=== PATIENT | male | born 1940 | race Hispanic/Latino ===

== ENCOUNTER → 2023-09-23 | Emergency (ER) | payer OTHER ==
[~2023-09-23] MED LIST: FAMOTIDINE 20 MG/2 ML VIAL IV ONE; HYDROMORPHONE HCL 0.5 MG/0.5 ML INJ ONE; LIDOCAINE VISCOUS 2% 10ML ORAL SOLN ONE; NA CHLORIDE 0.9% 1,000 ML ONE; NA CHLORIDE 0.9% 100 ML ONE; NA CHLORIDE 0.9% 500 ML ONE; NS KCL 20MEQ 1,000 ML IV ONE; ONDANSETRON 4 MG/2 ML VIAL ONE; PIPERACIL/TAZO 3.375 GM VIAL IV ONE; PROMETHAZINE INJ 25 MG/ML AMP ONE
[2023-09-23 15:24] LABS: Protime INR 1.1
[2023-09-23 15:36] LABS: Albumin 2.6 g/dL (3.4-5.0); Bilirubin Direct 0.3 mg/dL (0-0.2); Bilirubin Indirect, Calculated 0.4 mg/dL (0.2-0.8); Bilirubin Total 0.7 mg/dL (0.2-1.0); Potassium 3.2 mEq/L (3.5-5.1); Protein, Total 6.1 g/dL (6.4-8.2)
[2023-09-23 15:49] LABS: Absolute Lymphocytes (CBC) 3.1 K/uL (0.7-4.9); Hematocrit 40.2 % (39.6-49.0); Lymphocytes % 57.6 % (15.3-44.8); MPV 6.7 fL (7.6-11.3); Platelets 238 thou/uL (152-406); RBC Red Blood Cell Count 4.46 M/uL (4.33-5.43)
[2023-09-23 15:59] LABS: Specific Gravity 1.022 (1.005-1.030); Urine Bacteria <20 /HPF (<20); Urine Bilirubin NEGATIVE (Negative); Urine Blood Negative (Negative); Urine Clarity Extremely Turbid (Clear); Urine Color Yellow (Yellow); Urine Crystals Unidentified Few /HPF (None Seen); Urine Glucose NEGATIVE (Negative); Urine Mucus 4+ /HPF (None Seen); Urine Protein 3+ (Negative); Urine RBC <5 /HPF (None Seen); Urine Urobilinogen Normal (Normal); Urine WBC Clump Rare /HPF (None Seen)
--- NOTE | 2023-09-23 15:59 | RAD REPORT ---
EXAM DESCRIPTION: RAD - Chest Single View - 09/23/2023 3:44 pm CLINICAL HISTORY: ABDOMINAL DISTENTION Chest pain. COMPARISON: No comparisons FINDINGS: Portable technique limits examination quality. The lungs are mildly underinflated but grossly clear. The heart is normal in size. No displaced fract ures.Dual lead pacer device. IMPRESSION: No acute intrathoracic process suspected.
--- OUTSIDE RECORDS SUMMARY | 2023-09-23 16:00 | XMS REPORT | Continuity of Care Document ---
Author Name Unknown Address [address] [facility] [address] [place] [address] [facility] Address [address] [facility] [address] [place] [address] Care Team Providers Care Epic Ambulatory Analysts Name Role Phone Micaela Warner Primary Care Physician QUIRINO JI Attending Clinician Unavailable TANESHA WHITE Attending Clinician UnavailROSETTA Alves Attending Clinician UnavailRosetta Knott DO Attending Clinician [phone], [facility] Infusion Chair Attending Clinician Tanesha Marmolejo MD Attending Clinician [phone], [facility] Adult Infusion Nurse Attending Clinician Unavailable MARTÍNEZ DE LA GARZA Attending Clinician Unavailable MARTÍNEZ DE LA GARZA Attending Clinician Unavailable Elpidio Bates MD Attending Clinician [phone], [facility] Infusion Chair Attending Clinician Unavai lable Pob, [facility] Main Attending Clinician Unavailshad cullen 4, [facility] Infusion Chair Attending Clinician Ted abraham Doctor Unassigned, [place] Attending Clinician Ema babinsusyarelis 9, [facility] Infusion Chair Attending Clinician Radha Frausto Attending Clinician [phone] Osmin Jerez PA-C Attending Clinician [phone] OSMIN JEREZ Attending Clinician UnavailJANY Pan Attending Clinician Unavailable JANY CASH Attending Clinician Unavailable 2, [facility] Infusion Chair Attending Clinician CARLOS Pride Attending Clinician Unavailable 6, [facility] Infusion Chair Attending Clinician ADA Fernandez Attending Clinician Unavailab Ada Alvarez DO Attending Clinician [phone], [facility] Infusion Chair Attending Clinician SONNY Chakraborty Attending Clinician Unavailable Sonny Gramajo MD Attending Clinician [phone] Diana Sherwood RN Attending Clinician Unavailable DENG MARTINEZ Attending Clinician Unavailabl subhash Merritt MD, Emma Attending Clinician [phone] Deng Martinez MD Attending Clinician [phone] Mahad Mcfadden RN Attending Clinician Ted abraham 8, [facility] Infusion Chair Attending Clinician Ted abraham 2, [facility] Attending Clinician Unavailable Vance Pond MD Attending Clinician + [phone] Radha Quevedo MD Attending Clinician +[phone] RADHA QUEVEDO Attending Clinician UnavailARY Amador Attending Clinician Unavailable Ary Stokes DO Attending Clinician [phone] DONOVAN WARE Attending Clinician Unavailable DONOVAN WARE Attending Clinician Unavailable ERASMO MARCANO Attending Clinician Unavailable Ana Ying LCSW Attending Clinician [phone] Erasmo Marcano MD Attending Clinician [phone] FIDE HANSON Attending Clinician Unavailable Ysabel Fisher Attending Clinician [phone] YSABEL FISHER Attending Clinician Unavailshad Lima RN, Dima Dela Cruz Attending Clinician Unavail able TIM BUSBY Attending Clinician Unavailable Yolis DELA CRUZ, Tripp Dela Cruz Attending Clinician [phone] Tim Busby MD Attending Clinician [phone], [facility] Infusion Chair Attending Clinician Unava ilable JEREMY ARRIAGA Attending Clinician Unavailable Arriaga OD, Jeremy Attending Clinician [phone] OBI-ROSEMARY DEMETRIUS Attending Clinician Unavailab le OBI-ROSEMARYEma TERRELLZOMA Attending Clinician Unavailab VANCE Camacho Attending Clinician Unavailable RIOS PURCELL Attending Clinician Unavailable Fide Brink Attending Clinician [phone] Blayne DELA CRUZ, Rios Attending Clinician [phone] Lala MCARTHUR, Vinod Wall Attending Clinician Unav ailable Iggy RTEthel Attending Clinician Unavailab boston Ware RN, Alexandra Agarwal Attending Clinician Unavai Clif Bocanegra Attending Clinician Unavailable Christian Ward Attending Clinician [phone] Coleman Pearson MD Attending Clinician [phone] COLEMAN PEARSON Attending Clinician Unavailable Lila Martinez MD Attending Clinician [phone], [facility] Infusion Chair Attending Clinician Unamelly abraham [facility] Attending Clinician Unavailable Nurse, [facility] Gu Attending Clinician Unavai Nevaeh Magdaleno DO Attending Clinician [phone] FEMI STRINGER Attending Clinician Unavailable Femi Stringer MD Attending Clinician [phone] RADHA HEMPHILL Attending Clinician Unavaila Leann Navarro PTA Attending Clinician Unav ailCOLEMAN Hdz Attending Clinician Unavailable RONIT ENRIQUE Attending Clinician Unavailable Ronit Mancia Attending Clinician [phone] Nurse, Onc long-term Attending Clinician Unavailable VIOLET JETER Attending Clinician UnavailLeandra Ott PT, Jamilah Attending Clinician Un available Demi DELA CRUZ, Quirino Attending Clinician [phone] Salome Quintana Attending Clinician +[phone] GABBIE PEREZ Attending Clinician Unavailable Agustin Hemphill MD Attending Clinician [phone] Selam DELA CRUZ, Gabbie Attending Clinician +[phone] Shaun Toscano MD Attending Clinician [phone] Austin DELA CRUZ, Rosalba Attending Clinician [phone] Brandy [facility], Kassy Gramajo Attending Clinician Unava antwan Rand [facility], [address] Attending Clinician U fuentes Camara MD, Maynor Meng Attending Clinician [phone] Nurse, [facility] Akbar Attending Clinician Unavailable Donte DELA CRUZ, Arnav Roberts Attending Clinician [phone] ARNAV MENDEZ Attending Clinician Unavailable TABITHA GEORGES Attending Clinician Unavailable Tabitha Limon Attending Clinician [phone] Mihaela Cason Attending Clinician [phone] Raisa Kay Attending Clinician [phone] Coleman Vazquez MD Attending Clinician [phone] MIHAELA BURROGUHS Attending Clinician Unavailable RAISA WHITTEN Attending Clinician Unavailable MARC MISHRA Attending Clinician Unavaila Marc Pacheco Attending Clinician [phone] DEEPA OSBORNE Attending Clinician Unavailable DEEPA OSBORNE Attending Clinician Unavailable Dee Smith Attending Clinician Unavailshad Cardenas [facility], Nadja Attending Clinician Unavailable COLEMAN ELY Attending Clinician Unavailable Coleman Ely MD Attending Clinician [phone], [facility] Attending Clinician Unavailable Deepa Osborne DO Attending Clinician [phone] JOSE NOONAN Attending Clinician Unavaila ble Only, [facility] Test Attending Clinician Unavailable Daphne DELA CRUZ, Dong Dela Cruz Attending Clinician [phone] Pool Wilhelm MD Attending Clinician +[phone] Sidney Boudreaux MD Attending Clinician Unavailab boston Leo NP, Rosalinda Doll Attending Clinician +[phone] Christine Tirado MD Attending Clinician + [phone] CHRISTINE TIRADO Attending Clinician Unavailable Hiren MCARTHUR, Serina L Attending Clinician Unavail able Kamlesh Nguyen DO Attending Clinician [phone] Chuy MISTRY Bisi Attending Clinician [phone] Alix Hendricks MD, Leonard Attending Clinician +[phone] Alonso DELA CRUZ, Yoel Whitney Attending Clinician [phone] Varsha Acosta MD Attending Clinician [phone] VARSHA ACOSTA Attending Clinician Unavailable RYAN GRULLON Attending Clinician Unavailable Ryan Grullon PA-C Attending Clinician [phone] Lab, Adc [facility] Pob I Attending Clinician Unavailab boston Kuo, [facility] Pob I Attending Clinician Unavail able AASHISH AGUILAR Attending Clinician Unavailable Makenna Lucas Attending Clinician [phone] MAKENNA CLOUD Attending Clinician Unavailable MARIA D BARAJAS Attending Clinician Unavailable Karl [employer] CLERK, Maria D Attending Clinician [phone] DONG JEAN BAPTISTE Attending Clinician Unavaila CASTILLO Sabillon Attending Clinician Unavaila Heidi Islas Attending Clinician [phone] Claude LYNN, Tiffany Rand Attending Clinician +[phone] Yovany Chu MD Attending Clinician +[phone] TIFFANY JOHANSEN Attending Clinician Unavailab ANICETO Felix Attending Clinician Unavaila baltazar Jaquez MD, Milo Attending Clinician [phone] FRANCESCO HADDAD Attending Clinician Megan herve WESTP, Loly Attending Clinician [phone] Ginger Ruffin MD Attending Clinician +[phone] Mylene Martin MD Attending Clinician [phone] Lab, Shailesh Cbc Attending Clinician Unavailable DENG MARTINEZ Admitting Clinician UnavailDeng Phillips MD Admitting Clinician ARY STOKES Admitting Clinician Unavailable TIM BUSBY Admitting Clinician Unavailable Tim Busby MD Admitting Clinician [phone] RIOS PURCELL Admitting Clinician Unavailable FEMI STRINGER Admitting Clinician Unavailable VIOLET JETER Admitting Clinician UnavailAGUSTIN Noriega Admitting Clinician Unavailable Agustin Hemphill MD Admitting Clinician [phone] RADHA QUEVEDO Admitting Clinician UnavailTABITHA Blanco Admitting Clinician Unavailable YOEL DAVID Admitting Clinician Unavailable MARC MISHRA Admitting Clinician Unavaila ble Kamlesh Nguyen DO Admitting Clinician [phone] RONIT ENRIQUE Admitting Clinician Unavailable CASTILLO BRUNER Admitting Clinician Unavaila ble Payers Payer Name Policy Type Policy Number Effective Date Expirati on Date Source [facility]/[employer] MEDICARE ADVANTAGE [id number] 2019 00:00:00 [employer] [place] [id number] 2022 00:00:00 [facility] [id number] 2021 00:00:00 [facility]/[employer] [id number] 2020 00:00:00 Problems Condition Name Condition Details Condition Category Status Onset Date Resolution Date Last Treatment Date Treating Clinician Comments Source Port-A-Cat h in place [place] in place Disease Active 2-08 00:00: 00 [facility] Bacteremia due to Klebsiella pneumoniae Bacteremia due to Klebsiella pneumoniae Disease Active 2022-08 018 00:00: 00 [facility] UTI due to Klebsiella species UTI due to Klebsiella species Disease Active 2022-08 0-18 00:00: 00 [facility] Fever, unspecifie d fever cause Fever, unspecifie d fever cause Disease Active 2022-08 0-12 00:00: 00 [facility] Elevated brain natriureti c peptide (BNP) level Elevated brain natriureti c peptide (BNP) level Disease Active 5- 00:00: 00 [facility] Pacemaker Pacemaker Disease Active 2023-0 5-01 00:00: 00 [facility] Recurrent falls Recurrent falls Disease Active 0 4-14 00:00: 00 [facility] Fatigue due to treatment Fatigue due to treatment Disease Active 0 4-14 00:00: 00 [facility] Mixed hyperlipid emia Mixed hyperlipid emia Disease Active 0 4-14 00:00: 00 [facility] 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 Active 0 8-17 00:00: 00 [facility] Lung nodule Lung nodule Disease Active 0 8-17 00:00: 00 [facility] Decreased appetite Decreased appetite Disease Active 0 8-17 00:00: 00 [facility] Decreased GFR Decreased GFR Disease Active 0 8-17 00:00: 00 [facility] Cancer cachexia Cancer cachexia Disease Active 0 8-17 00:00: 00 [facility] Metastatic colorectal cancer Metastatic colorectal cancer Disease Active 0 4-12 00:00: 00 [facility] Medicine refill Medicine refill Disease Active 0 4-12 00:00: 00 [facility] Rectal cancer metastasiz ed to liver Rectal cancer metastasiz ed to liver Disease Active 0 6-21 00:00: 00 [facility] Rectal cancer metastasiz ed to liver Rectal cancer metastasiz ed to liver Disease Active 0 6-21 00:00: 00 [facility] Rectal cancer metastasiz ed to liver Rectal cancer metastasiz ed to liver Disease Active 0 6-21 00:00: 00 [facility] Rectal cancer metastasiz ed to liver Rectal cancer metastasiz ed to liver Disease Active 0 6-21 00:00: 00 [facility] GI bleed GI bleed Disease Active 0 6-10 00:00: 00 [facility] Familial adenomatou s polyposis Familial adenomatou s polyposis Disease Active 0 4-30 00:00: 00 [facility] Rectal mass Rectal mass Disease Active 4-30 00:00: 00 Overview: Formattin g of this note might be different from the original. pathology pending [facility] Bifascicul ar block Bifascicul ar block Disease Active 2-03 00:00: 00 [facility] Benign prostatic hyperplasi a with urinary frequency Benign prostatic hyperplasi a with urinary frequency Disease Active 0 9-18 00:00: 00 [facility] Fall, sequela Fall, sequela Disease Active 0 6-18 00:00: 00 [facility] Chews tobacco Chews tobacco Disease Active 0 6-18 00:00: 00 [facility] Chronic pain of both knees Chronic pain of both knees Disease Active 6-18 00:00: 00 [facility] Bradycardi a Bradycardi a Disease Active 2-04 00:00: 00 [facility] Dizziness Dizziness Disease Active 2-04 00:00: 00 [facility] Weakness Weakness Disease Active 2-04 00:00: 00 [facility] Medicare annual wellness visit, subsequent Medicare annual wellness visit, subsequent Disease Active 0 1-16 00:00: 00 [facility] Osteoarthr itis of both shoulders, unspecifie d osteoarthr 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, unspecifie d osteoarthr itis type Disease Active 1-16 00:00: 00 [facility] Dental caries Dental caries Disease Active 0 1-16 00:00: 00 [facility] 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 Added automatic ally from request for surgery [id number] [facility] Dermatocha lasis of both upper eyelids Dermatocha lasis of both upper eyelids Disease Active 01-17 00:00: 00 Overview: Formattin g of this note might be different from the original. 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 Added automatic ally from request for surgery [id number] [facility] Recurrent acute suppurativ e otitis media with spontaneou s rupture of left tympanic membrane Recurrent acute suppurativ e otitis media with spontaneou s rupture of left tympanic membrane Disease Active 03-01 00:00: 00 Overview: Formattin g of this note might be different from the original. Added automatic ally from request for surgery [id number] [facility] Tympanic membrane perforatio n, left Tympanic membrane perforatio n, left Disease Active 03-01 00:00: 00 Overview: Formattin g of this note might be different from the original. Added automatic ally from request for surgery [id number] [facility] Hearing loss sensory, bilateral Hearing loss sensory, bilateral Disease Active 03-01 00:00: 00 Overview: Formattin g of this note might be different from the original. Added automatic ally from request for surgery [id number] [facility] Cranial nerve palsy Cranial nerve palsy Disease Active 2015-08 00:00: 00 [facility] Facial droop Facial droop Disease Active 2015-08 00:00: 00 [facility] Essential hypertensi on Essential hypertensi on Disease Active [facility] Enlarged prostate Enlarged prostate Disease Active [facility] Iron deficiency anemia due to chronic blood loss Iron deficiency anemia due to chronic blood loss Disease Active [facility] Hyperchole sterolemia Hyperchole sterolemia Disease Active [facility] Type 2 diabetes mellitus without complicati on, without long-term current use of insulin Type 2 diabetes mellitus without complicati on, without long-term current use of insulin Disease Active [facility] Allergies, Adverse Reactions, Alerts Allergy Name Allergy Type Status Severity Reaction(s) Onset Date Inactive Date Treating Clinician Comments Source ATORVAST ATIN CALCIUM DRUG INGREDI Active Other-Cmnt 2015-08 00:00: 00 [facility] Atorvast atin Calcium Propensi ty to adverse reaction s Active Other - See comments 2015-08 00:00: 00 Drowsines s per pt [facility] CODEINE DRUG INGREDI Active SOB 02-28 00:00: 00 [facility] Codeine Propensi ty to adverse reaction s Active Shortness of Breath 02-28 00:00: 00 [facility] Social History Social Habit Start Date Stop Date Quantity Comments Source History SDOH Social Connections Get Together [facility] History SDOH Social Connections [facility] History SDOH Social Connections Membership [facility] History SDOH Social Connections Meetings [facility] Gender identity [facility] History SDOH Alcohol Binge [facility] Alcohol intake 2023-09-19 00:00:00 2023-09-19 00:00:00 0 /d [facility] History of Social function 2023-05-19 00:00:00 2023-05-19 00:00:00 [facility] Exposure to SARS-CoV-2 (event) 2022-12-22 00:00:00 2023-01-01 15:23:00 Not sure [facility] History SDOH Food Worry 2022-11-25 00:00:00 2022-11-25 00:00:00 1 [facility] History SDOH Food Scarcity 2022-11-25 00:00:00 2022-11-25 00:00:00 1 [facility] History SDOH Social Connections Phone 2022-11-22 00:00:00 2022-11-22 00:00:00 5 [facility] History SDOH Social Connections Living 2022-11-22 00:00:00 2022-11-22 00:00:00 3 [facility] History SDOH Transport Med 2022-11-22 00:00:00 2022-11-22 00:00:00 2 [facility] History SDOH Transport Non-Med 2022-11-22 00:00:00 2022-11-22 00:00:00 2 [facility] History SDOH Alcohol Frequency 2022-11-22 00:00:00 2022-11-22 00:00:00 1 [facility] Cigarettes smoked current (pack per day) - Reported 2022-03-05 00:00:00 2022-03-05 00:00:00 [facility] Cigarette pack-years 2022-03-05 00:00:00 2022-03-05 00:00:00 [facility] Tobacco use and exposure 2022-03-05 00:00:00 2022-03-05 00:00:00 User of smokeless tobacco [facility] Tobacco Comment 2022-03-05 00:00:00 2022-03-05 00:00:00 1 can dip week [facility] Alcohol Comment 2016-09-07 00:00:00 2016-09-07 00:00:00 1-2 beer daily [facility] History of tobacco use 1998-09-07 00:00:00 Cigarette Smoker [facility] Sex Assigned At 1940 00:00:00 1940 00:00:00 [facility] Smoking Status Start Date Stop Date Source Ex-smoker 2022-03-05 00:00:00 2022-03-05 [facility]ations Ordered Medication Name Filled Medication Name Start Date Stop Date Current Medication? Ordering Clinician Indication Dosage Frequency Signature (SIG) Comments Components Source ondansetron (ZOFRAN (PF)) injection 4 mg 09-19 17:00: 00 09-19 16:56 :00 No 4mg 4 mg, Slow IV Push, ONCE, 1 dose, On Wed09/19/23 at 1100, JAY [facility] NaCl 0.9% (NS) bolus infusion 1,000 mL 09-19 16:00: 00 09-19 16:55 :00 No 1000mL at 999 mL/hr, 1,000 mL, IV Infusion, ONCE, 1 dose, On Wed09/19/23 at 1000, STAT [facility] ondansetron 4 mg disintegrat ing tablet 09-19 00:00: 00 Yes [id number] 4mg Take 1 tablet by mouth every 8 (eight) hours as needed for Nausea and Vomiting (N/V) (to help with appetite). [facility] heparin lock flush (HEP-LOCK) injection 10 Units 09-17 03:00: 00 09-17 03:00 :00 No 10U 10 Units, IV Push, ONCE, 1 dose, On Mireya 09/16/23 at 2100, [facility] fluorouraci L (ADRUCIL) 3,264 mg in NaCl 0.9% (NS) 241 mL infusion pump (for home use) 09-15 19:30: 00 09-17 17:55 :00 Yes [id number] 1920mg/ m2 3,264 mg (1,920 mg/m2 ?1.7 m2 Treatment Plan BSA from Recorded weight), Continuous IV Infusion, OVER 46 HOURS, First dose on Wed09/15/23 at 1330, For 1 dose [facility] irinotecan (CAMPTOSAR) 183.6 mg in D5W 250 mL IV infusion 09-15 17:45: 00 09-15 19:45 :00 No [id number] 108mg/m 2 183.6 mg (108 mg/m2 ?1.7 m2 Treatment Plan BSA from Recorded weight), IV Infusion, ONCE, Administer over 90 Minutes, On Wed09/15/23 at 1145, For 1 dose
Ma y Y site irinotecan and leucovorin through a D5W containing line.&nbsp ; Pro tect from light.
[facility] palonosetro n (ALOXI) injection 0.25 mg 09-15 16:45: 00 09-15 17:01 :00 No [id number] .25mg 0.25 mg, Intravenou s, ONCE, 1 dose, On Wed09/15/23 at 1045, Routine
sociology faculty member approving Restricted medication : [facility] dexamethaso ne sod phos PF injection 10 mg 09-15 16:45: 00 09-15 16:55 :00 No [id number] 10mg 10 mg, Slow IV Push, ONCE, 1 dose, On Wed09/15/23 at 1045, 1 mL [facility] bevacizumab -bvzr (ZIRABEV) 300 mg in NaCl 0.9% (NS) 100 mL infusion 09-15 16:45: 00 09-15 18:20 :00 No [id number] 300mg 300 mg, IV Infusion, ONCE, Administer over 30 Minutes, On Wed09/15/23 at 1045, For 1 dose
Sh ould be diluted in 0.9% Sodium Chloride, not D5W. May store diluted solution in refrigerat or for up to 8 hours.&nbs p;Infuse 1st infusion over 90 minutes; 2nd infusion for 60 minutes; subsequent infusions over 30 minutes if well tolerated. Per section 07.00 Medication Use policy 07.17 Dose Rounding, the patient's treatment meets criteria for dose rounding to within 10% of the nearest vial size. The calculated dose, 309 mg [based on 5 mg/kg; and a weight of 61.8 kg] , has been rounded to a final dose of 300 mg. This represents a dose rounding change of 2.91%.&nbs p; Usha Alcala RP, PharmD&nbs p;09/15/2023 09:45&nbsp ;[facility] Department of Pharmacy<b r> [facility] loperamide (IMODIUM A-D) capsule 2 mg 09-15 16:35: 50 Yes [id number] 2mg 2 mg, Oral, Q2HPRN, 6 doses, Starting on Wed09/15/23 at 1035, Until Discontinu ed, Routine, Diarrhea [facility] loperamide (IMODIUM A-D) capsule 4 mg 09-15 16:35: 50 Yes [id number] 4mg 4 mg, Oral, PRN, 1 dose, Starting on Wed09/15/23 at 1035, Until Discontinu ed, Routine, Diarrhea [facility] atropine injection 0.25 mg 09-15 16:35: 50 09-15 18:12 :00 No [id number] .25mg 0.25 mg, IV Push, PRN, 1 dose, Starting on Wed09/15/23 at 1035, Until Discontinu ed, Routine, Stomach cramping, acute flushing. [facility] heparin lock flush (HEPARIN LOCKFLUSH(P ORCINE)(PF) ) 100 unit/mL injection 500 Units 09-15 16:35: 49 09-16 16:34 :49 Yes [id number] 500U 500 Units, IV Push, PRN, Starting on Wed09/15/23 at 1035, Until Mireya 09/16/23 at 1034, Routine [facility] heparin lock flush (HEPARIN LOCKFLUSH(P ORCINE)(PF) ) 100 unit/mL injection 500 Units 09-03 20:02: 58 09-04 20:01 :58 Yes [id number] 500U 500 Units, IV Push, PRN, Starting on Wed09/03/23 at 1402, Until 09/04/23 at 1401, Routine [facility] fluorouraci L (ADRUCIL) 3,264 mg in NaCl 0.9% (NS) 241 mL infusion pump (for home use) 09-01 18:45: 00 09-03 16:49 :00 Yes [id number] 1920mg/ m2 3,264 mg (1,920 mg/m2 ?1.7 m2 Treatment Plan BSA from Recorded weight), Continuous IV Infusion, OVER 46 HOURS, First dose on Wed09/01/23 at 1245, For 1 dose [facility] fluorouraci L (ADRUCIL) 3,264 mg in NaCl 0.9% (NS) 241 mL infusion pump (for home use) 09-01 18:45: 00 09-01 22:36 :26 No [id number] 1920mg/ m2 3,264 mg (1,920 mg/m2 ?1.7 m2 Treatment Plan BSA from Recorded weight), Continuous IV Infusion, OVER 46 HOURS, First dose on Wed09/01/23 at 1245, For 1 dose [facility] fluorouraci L (ADRUCIL) 3,264 mg in NaCl 0.9% (NS) 241 mL infusion pump (for home use) 09-01 18:45: 00 09-01 22:36 :26 No [id number] 1920mg/ m2 3,264 mg (1,920 mg/m2 ?1.7 m2 Treatment Plan BSA from Recorded weight), Continuous IV Infusion, OVER 46 HOURS, First dose on Wed09/01/23 at 1245, For 1 dose [facility] irinotecan (CAMPTOSAR) 229.6 mg in D5W 250 mL IV infusion 09-01 17:00: 00 09-01 18:32 :00 No [id number] 135mg/m 2 229.6 mg (rounded from 229.5 mg = 135 mg/m2 ?1.7 m2 Treatment Plan BSA from Recorded weight), IV Infusion, ONCE, Administer over 90 Minutes, On Wed09/01/23 at 1100, For 1 dose
[facility] irinotecan and leucovorin through a D5W containing line.&nbsp ; Pro tect from light.
[facility] irinotecan (CAMPTOSAR) 229.6 mg in D5W 250 mL IV infusion 09-01 17:00: 00 09-01 18:32 :00 No [id number] 135mg/m 2 229.6 mg (rounded from 229.5 mg = 135 mg/m2 ?1.7 m2 Treatment Plan BSA from Recorded weight), IV Infusion, ONCE, Administer over 90 Minutes, On Wed09/01/23 at 1100, For 1 dose
[facility] Y site irinotecan and leucovorin through a D5W containing line.&nbsp ; Pro tect from light.
[facility] irinotecan (CAMPTOSAR) 229.6 mg in D5W 250 mL IV infusion 09-01 17:00: 00 09-01 18:32 :00 No [id number] 135mg/m 2 229.6 mg (rounded from 229.5 mg = 135 mg/m2 ?1.7 m2 Treatment Plan BSA from Recorded weight), IV Infusion, ONCE, Administer over 90 Minutes, On Wed09/01/23 at 1100, For 1 dose
Ma y Y site irinotecan and leucovorin through a D5W containing line.&nbsp ; Pro tect from light.
[facility] bevacizumab -bvzr (ZIRABEV) 300 mg in NaCl 0.9% (NS) 100 mL infusion 09-01 16:00: 00 09-01 17:02 :00 No [id number] 300mg 300 mg, IV Infusion, ONCE, Administer over 30 Minutes, On Wed09/01/23 at 1000, For 1 dose
Sh ould be diluted in 0.9% Sodium Chloride, not D5W. May store diluted solution in refrigerat or for up to 8 hours.&nbs p;Infuse 1st infusion over 90 minutes; 2nd infusion for 60 minutes; subsequent infusions over 30 minutes if well tolerated. Per section 07.00 Medication Use policy 07.17 Dose Rounding, the patient's treatment meets criteria for dose rounding to within 10% of the nearest vial size. The calculated dose, 309 mg [based on 5 mg/kg; and a weight of 61.8 kg] , has been rounded to a final dose of 300 mg. This represents a dose rounding change of 2.9%.&nbsp ; Tye Alcala RPH, PharmD&nbs p; 4 09:48&nbsp ;[facility]<b r> [facility] palonosetro n (ALOXI) injection 0.25 mg 09-01 16:00: 09-01 16:00 :00 No [id number] .25mg 0.25 mg, Intravenou s, ONCE, 1 dose, On Wed09/01/23 at 1000, Routine
sociology faculty member approving Restricted medication : [facility] dexamethaso ne sod phos PF injection 10 mg 09-01 16:00: 09-01 16:01 :00 No [id number] 10mg 10 mg, Slow IV Push, ONCE, 1 dose, On Wed09/01/23 at 1000, 1 mL [facility] bevacizumab -bvzr (ZIRABEV) 300 mg in NaCl 0.9% (NS) 100 mL infusion 09-01 16:00: 09-01 17:02 :00 No [id number] 300mg 300 mg, IV Infusion, ONCE, Administer over 30 Minutes, On Wed09/01/23 at 1000, For 1 dose
Sh ould be diluted in 0.9% Sodium Chloride, not D5W. May store diluted solution in refrigerat or for up to 8 hours.&nbs p;Infuse 1st infusion over 90 minutes; 2nd infusion for 60 minutes; subsequent infusions over 30 minutes if well tolerated. Per section 07.00 Medication Use policy 07.17 Dose Rounding, the patient's treatment meets criteria for dose rounding to within 10% of the nearest vial size. The calculated dose, 309 mg [based on 5 mg/kg; and a weight of 61.8 kg] , has been rounded to a final dose of 300 mg. This represents a dose rounding change of 2.9%.&nbsp ; Tye Alcala Randal, PharmD&nbs p; 4 09:48&nbsp ;[facility]<b r> [facility] palonosetro n (ALOXI) injection 0.25 mg 09-01 16:00: 09-01 16:00 :00 No [id number] .25mg 0.25 mg, Intravenou s, ONCE, 1 dose, On Wed09/01/23 at 1000, Routine
sociology faculty member approving Restricted medication : [facility] dexamethaso ne sod phos PF injection 10 mg 09-01 16:00: 00 09-01 16:01 :00 No [id number] 10mg 10 mg, Slow IV Push, ONCE, 1 dose, On Wed09/01/23 at 1000, 1 mL [facility] bevacizumab -bvzr (ZIRABEV) 300 mg in NaCl 0.9% (NS) 100 mL infusion 09-01 16:00: 09-01 17:02 :00 No [id number] 300mg 300 mg, IV Infusion, ONCE, Administer over 30 Minutes, On Wed09/01/23 at 1000, For 1 dose
Sh ould be diluted in 0.9% Sodium Chloride, not D5W. May store diluted solution in refrigerat or for up to 8 hours.&nbs p;Infuse 1st infusion over 90 minutes; 2nd infusion for 60 minutes; subsequent infusions over 30 minutes if well tolerated. Per section 07.00 Medication Use policy 07.17 Dose Rounding, the patient's treatment meets criteria for dose rounding to within 10% of the nearest vial size. The calculated dose, 309 mg [based on 5 mg/kg; and a weight of 61.8 kg] , has been rounded to a final dose of 300 mg. This represents a dose rounding change of 2.9%.&nbsp ; Tye Alcala [facility], PharmD&nbs p; 4 09:48&nbsp ;[facility]<b r> [facility] palonosetro n (ALOXI) injection 0.25 mg 09-01 16:00: 00 09-01 16:00 :00 No [id number] .25mg 0.25 mg, Intravenou s, ONCE, 1 dose, On Wed09/01/23 at 1000, Routine
sociology faculty member approving Restricted medication : [facility] dexamethaso ne sod phos PF injection 10 mg 09-01 16:00: 00 09-01 16:01 :00 No [id number] 10mg 10 mg, Slow IV Push, ONCE, 1 dose, On Wed09/01/23 at 1000, 1 mL [facility] heparin lock flush (HEPARIN LOCKFLUSH(P ORCINE)(PF) ) 100 unit/mL injection 500 Units 09-01 15:47: 10 09-02 15:46 :10 Yes [id number] 500U 500 Units, IV Push, PRN, Starting on Wed09/01/23 at 0947, Until Mireya 09/02/23 at 0946, Routine [facility] heparin lock flush (HEPARIN LOCKFLUSH(P ORCINE)(PF) ) 100 unit/mL injection 500 Units 08-20 20:42: 52 08-21 20:41 :52 Yes [id number] 500U 500 Units, IV Push, PRN, Starting on Wed08/20/23 at 1442, Until 08/21/23 at 1441, Routine [facility] heparin lock flush (HEPARIN LOCKFLUSH(P ORCINE)(PF) ) 100 unit/mL injection 500 Units 08-20 20:42: 52 08-20 23:25 :04 No [id number] 500U 500 Units, IV Push, PRN, Starting on Wed08/20/23 at 1442, Until Wed08/20/23 at 1725, Routine [facility] heparin lock flush (HEPARIN LOCKFLUSH(P ORCINE)(PF) ) 100 unit/mL injection 500 Units 08-20 20:42: 52 08-20 23:25 :04 No [id number] 500U 500 Units, IV Push, PRN, Starting on Wed08/20/23 at 1442, Until Wed08/20/23 at 1725, Routine [facility] levoFLOXaci n 750 mg tablet 08-20 00:00: 00 Yes [id number] 750mg Take 1 tablet by mouth every 24 (twenty-fo ur) hours. [facility] levoFLOXaci n 750 mg tablet 2023-0 -12 00:00: 00 Yes [id number] 750mg Take 1 tablet by mouth every 24 (twenty-fo ur) hours. [facility] levoFLOXaci n 750 mg tablet 2023-0 -12 00:00: 00 Yes [id number] 750mg Take 1 tablet by mouth every 24 (twenty-fo ur) hours. [facility] levoFLOXaci n 750 mg tablet 2023-0 -12 00:00: 00 Yes [id number] 750mg Take 1 tablet by mouth every 24 (twenty-fo ur) hours. [facility] levoFLOXaci n 750 mg tablet 2023-0 -12 00:00: 00 Yes [id number] 750mg Take 1 tablet by mouth every 24 (twenty-fo ur) hours. [facility] levoFLOXaci n 750 mg tablet 2023-0 -12 00:00: 00 Yes [id number] 750mg Take 1 tablet by mouth every 24 (twenty-fo ur) hours. [facility] levoFLOXaci n 750 mg tablet 2023-0 12 00:00: 00 Yes [id number] 750mg Take 1 tablet by mouth every 24 (twenty-fo ur) hours. [facility] levoFLOXaci n 750 mg tablet 2023-0 12 00:00: 00 Yes [id number] 750mg Take 1 tablet by mouth every 24 (twenty-fo ur) hours. [facility] levoFLOXaci n 750 mg tablet 2023-0 12 00:00: 00 Yes [id number] 750mg Take 1 tablet by mouth every 24 (twenty-fo ur) hours. [facility] levoFLOXaci n 750 mg tablet 2023-0 12 00:00: 00 Yes [id number] 750mg Take 1 tablet by mouth every 24 (twenty-fo ur) hours. [facility] levoFLOXaci n 750 mg tablet 2023-0 -12 00:00: 00 Yes [id number] 750mg Take 1 tablet by mouth every 24 (twenty-fo ur) hours. [facility] levoFLOXaci n 750 mg tablet 2023-0 -12 00:00: 00 Yes [id number] 750mg Take 1 tablet by mouth every 24 (twenty-fo ur) hours. [facility] levoFLOXaci n 750 mg tablet 2023-0 -12 00:00: 00 Yes [id number] 750mg Take 1 tablet by mouth every 24 (twenty-fo ur) hours. [facility] levoFLOXaci n 750 mg tablet 2023-0 -12 00:00: 00 Yes [id number] 750mg Take 1 tablet by mouth every 24 (twenty-fo ur) hours. [facility] levoFLOXaci n 750 mg tablet 2023-0 -12 00:00: 00 Yes [id number] 750mg Take 1 tablet by mouth every 24 (twenty-fo ur) hours. [facility] levoFLOXaci n 750 mg tablet 2023-0 -12 00:00: 00 Yes [id number] 750mg Take 1 tablet by mouth every 24 (twenty-fo ur) hours. [facility] levoFLOXaci n 750 mg tablet 2023-0 -12 00:00: 00 Yes [id number] 750mg Take 1 tablet by mouth every 24 (twenty-fo ur) hours. [facility] levoFLOXaci n 750 mg tablet 2023-0 12 00:00: 00 Yes [id number] 750mg Take 1 tablet by mouth every 24 (twenty-fo ur) hours. [facility] levoFLOXaci n 750 mg tablet 2023-0 12 00:00: 00 Yes [id number] 750mg Take 1 tablet by mouth every 24 (twenty-fo ur) hours. [facility] levoFLOXaci n 750 mg tablet 2023-0 -12 00:00: 00 Yes [id number] 750mg Take 1 tablet by mouth every 24 (twenty-fo ur) hours. [facility] levoFLOXaci n 750 mg tablet 2023-0 -12 00:00: 00 Yes [id number] 750mg Take 1 tablet by mouth every 24 (twenty-fo ur) hours. [facility] levoFLOXaci n 750 mg tablet 2023-0 -12 00:00: 00 Yes [id number] 750mg Take 1 tablet by mouth every 24 (twenty-fo ur) hours. [facility] fluorouraci L (ADRUCIL) 3,456 mg in NaCl 0.9% (NS) 241 mL infusion pump (for home use) 08-18 18:30: 00 08-20 17:10 :00 Yes [id number] 1920mg/ m2 3,456 mg (1,920 mg/m2 ?1.8 m2 Treatment Plan BSA from Recorded weight), Continuous IV Infusion, OVER 46 HOURS, First dose on Wed08/18/23 at 1230, For 1 dose [facility] fluorouraci L (ADRUCIL) 3,456 mg in NaCl 0.9% (NS) 241 mL infusion pump (for home use) 08-18 18:30: 00 08-20 17:10 :00 Yes [id number] 1920mg/ m2 3,456 mg (1,920 mg/m2 ?1.8 m2 Treatment Plan BSA from Recorded weight), Continuous IV Infusion, OVER 46 HOURS, First dose on Wed08/18/23 at 1230, For 1 dose [facility] fluorouraci L (ADRUCIL) 3,456 mg in NaCl 0.9% (NS) 241 mL infusion pump (for home use) 08-18 18:30: 00 08-18 23:04 :48 No [id number] 1920mg/ m2 3,456 mg (1,920 mg/m2 ?1.8 m2 Treatment Plan BSA from Recorded weight), Continuous IV Infusion, OVER 46 HOURS, First dose on Wed08/18/23 at 1230, For 1 dose [facility] fluorouraci L (ADRUCIL) 3,456 mg in NaCl 0.9% (NS) 241 mL infusion pump (for home use) 08-18 18:30: 00 08-18 23:04 :48 No [id number] 1920mg/ m2 3,456 mg (1,920 mg/m2 ?1.8 m2 Treatment Plan BSA from Recorded weight), Continuous IV Infusion, OVER 46 HOURS, First dose on Wed08/18/23 at 1230, For 1 dose [facility] irinotecan (CAMPTOSAR) 243 mg in D5W 250 mL IV infusion 08-18 16:45: 00 08-18 18:55 :00 No [id number] 135mg/m 2 243 mg (135 mg/m2 ?1.8 m2 Treatment Plan BSA from Recorded weight), IV Infusion, ONCE, Administer over 90 Minutes, On Wed08/18/23 at 1045, For 1 dose
[facility] site irinotecan and leucovorin through a D5W containing line.&nbsp ; Pro tect from light.
[facility] irinotecan (CAMPTOSAR) 243 mg in D5W 250 mL IV infusion 08-18 16:45: 00 08-18 18:55 :00 No [id number] 135mg/m 2 243 mg (135 mg/m2 ?1.8 m2 Treatment Plan BSA from Recorded weight), IV Infusion, ONCE, Administer over 90 Minutes, On Wed08/18/23 at 1045, For 1 dose
[facility] Y site irinotecan and leucovorin through a D5W containing line.&nbsp ; Pro tect from light.
[facility] irinotecan (CAMPTOSAR) 243 mg in D5W 250 mL IV infusion 08-18 16:45: 00 08-18 18:55 :00 No [id number] 135mg/m 2 243 mg (135 mg/m2 ?1.8 m2 Treatment Plan BSA from Recorded weight), IV Infusion, ONCE, Administer over 90 Minutes, On Wed08/18/23 at 1045, For 1 dose
[facility] Y site irinotecan and leucovorin through a D5W containing line.&nbsp ; Pro tect from light.
[facility] irinotecan (CAMPTOSAR) 243 mg in D5W 250 mL IV infusion 08-18 16:45: 00 08-18 18:55 :00 No [id number] 135mg/m 2 243 mg (135 mg/m2 ?1.8 m2 Treatment Plan BSA from Recorded weight), IV Infusion, ONCE, Administer over 90 Minutes, On Wed08/18/23 at 1045, For 1 dose
[facility] Y site irinotecan and leucovorin through a D5W containing line.&nbsp ; Pro tect from light.
[facility] bevacizumab -bvzr (ZIRABEV) 347.5 mg in NaCl 0.9% (NS) 100 mL infusion 08-18 15:45: 00 08-18 17:20 :00 No [id number] 347.5mg 347.5 mg, IV Infusion, ONCE, Administer over 30 Minutes, On Wed08/18/23 at 0945, For 1 dose
Sh ould be diluted in 0.9% Sodium Chloride, not D5W. May store diluted solution in refrigerat or for up to 8 hours.&nbs p;Infuse 1st infusion over 90 minutes; 2nd infusion for 60 minutes; subsequent infusions over 30 minutes if well tolerated.
[facility] palonosetro n (ALOXI) injection 0.25 mg 08-18 15:45: 00 08-18 16:05 :00 No [id number] .25mg 0.25 mg, Intravenou s, ONCE, 1 dose, On Wed08/18/23 at 0945, Routine
sociology faculty member approving Restricted medication : [facility] dexamethaso ne sod phos PF injection 10 mg 08-18 15:45: 00 08-18 16:00 :00 No [id number] 10mg 10 mg, Slow IV Push, ONCE, 1 dose, On Wed08/18/23 at 0945, 1 mL [facility] bevacizumab -bvzr (ZIRABEV) 347.5 mg in NaCl 0.9% (NS) 100 mL infusion 08-18 15:45: 00 08-18 17:20 :00 No [id number] 347.5mg 347.5 mg, IV Infusion, ONCE, Administer over 30 Minutes, On Wed08/18/23 at 0945, For 1 dose
Sh ould be diluted in 0.9% Sodium Chloride, not D5W. May store diluted solution in refrigerat or for up to 8 hours.&nbs p;Infuse 1st infusion over 90 minutes; 2nd infusion for 60 minutes; subsequent infusions over 30 minutes if well tolerated.
[facility] palonosetro n (ALOXI) injection 0.25 mg 08-18 15:45: 00 08-18 16:05 :00 No [id number] .25mg 0.25 mg, Intravenou s, ONCE, 1 dose, On Wed08/18/23 at 0945, Routine
sociology faculty member approving Restricted medication : [facility] dexamethaso ne sod phos PF injection 10 mg 08-18 15:45: 00 08-18 16:00 :00 No [id number] 10mg 10 mg, Slow IV Push, ONCE, 1 dose, On Wed08/18/23 at 0945, 1 mL [facility] bevacizumab -bvzr (ZIRABEV) 347.5 mg in NaCl 0.9% (NS) 100 mL infusion 08-18 15:45: 00 08-18 17:20 :00 No [id number] 347.5mg 347.5 mg, IV Infusion, ONCE, Administer over 30 Minutes, On Wed08/18/23 at 0945, For 1 dose
Sh ould be diluted in 0.9% Sodium Chloride, not D5W. May store diluted solution in refrigerat or for up to 8 hours.&nbs p;Infuse 1st infusion over 90 minutes; 2nd infusion for 60 minutes; subsequent infusions over 30 minutes if well tolerated.
[facility] palonosetro n (ALOXI) injection 0.25 mg 08-18 15:45: 00 08-18 16:05 :00 No [id number] .25mg 0.25 mg, Intravenou s, ONCE, 1 dose, On Wed08/18/23 at 0945, Routine
sociology faculty member approving Restricted medication : [facility] dexamethaso ne sod phos PF injection 10 mg 2023-08-18 15:45: 00 08-18 16:00 :00 No [id number] 10mg 10 mg, Slow IV Push, ONCE, 1 dose, On Wed08/18/23 at 0945, 1 mL [facility] bevacizumab -bvzr (ZIRABEV) 347.5 mg in NaCl 0.9% (NS) 100 mL infusion 08-18 15:45: 00 08-18 17:20 :00 No [id number] 347.5mg 347.5 mg, IV Infusion, ONCE, Administer over 30 Minutes, On Wed08/18/23 at 0945, For 1 dose
Sh ould be diluted in 0.9% Sodium Chloride, not D5W. May store diluted solution in refrigerat or for up to 8 hours.&nbs p;Infuse 1st infusion over 90 minutes; 2nd infusion for 60 minutes; subsequent infusions over 30 minutes if well tolerated.
[facility] palonosetro n (ALOXI) injection 0.25 mg 08-18 15:45: 00 08-18 16:05 :00 No [id number] .25mg 0.25 mg, Intravenou s, ONCE, 1 dose, On Wed08/18/23 at 0945, Routine
sociology faculty member approving Restricted medication : [facility] dexamethaso ne sod phos PF injection 10 mg 08-18 15:45: 00 08-18 16:00 :00 No [id number] 10mg 10 mg, Slow IV Push, ONCE, 1 dose, On Wed08/18/23 at 0945, 1 mL [facility] loperamide (IMODIUM A-D) capsule 2 mg 08-18 15:40: 43 Yes [id number] 2mg 2 mg, Oral, Q2HPRN, 6 doses, Starting on Wed08/18/23 at 0940, Until Discontinu ed, Routine, Diarrhea [facility] loperamide (IMODIUM A-D) capsule 2 mg 08-18 15:40: 43 Yes [id number] 2mg 2 mg, Oral, Q2HPRN, 6 doses, Starting on Wed08/18/23 at 0940, Until Discontinu ed, Routine, Diarrhea [facility] heparin lock flush (HEPARIN LOCKFLUSH(P ORCINE)(PF) ) 100 unit/mL injection 500 Units 08-18 15:40: 43 08-19 15:39 :43 Yes [id number] 500U 500 Units, IV Push, PRN, Starting on Wed08/18/23 at 0940, Until Mireya 08/19/23 at 0939, Routine [facility] heparin lock flush (HEPARIN LOCKFLUSH(P ORCINE)(PF) ) 100 unit/mL injection 500 Units 08-18 15:40: 43 08-19 15:39 :43 Yes [id number] 500U 500 Units, IV Push, PRN, Starting on Wed08/18/23 at 0940, Until Mireya 08/19/23 at 0939, Routine [facility] loperamide (IMODIUM A-D) capsule 4 mg 08-18 15:40: 43 08-18 17:29 :00 No [id number] 4mg 4 mg, Oral, PRN, 1 dose, Starting on Wed08/18/23 at 0940, Until Discontinu ed, Routine, Diarrhea [facility] atropine injection 0.25 mg 08-18 15:40: 43 08-18 17:25 :00 No [id number] .25mg 0.25 mg, IV Push, PRN, 1 dose, Starting on Wed08/18/23 at 0940, Until Discontinu ed, Routine, Stomach cramping, acute flushing. [facility] loperamide (IMODIUM A-D) capsule 4 mg 08-18 15:40: 43 08-18 17:29 :00 No [id number] 4mg 4 mg, Oral, PRN, 1 dose, Starting on Wed08/18/23 at 0940, Until Discontinu ed, Routine, Diarrhea [facility] atropine injection 0.25 mg 08-18 15:40: 43 08-18 17:25 :00 No [id number] .25mg 0.25 mg, IV Push, PRN, 1 dose, Starting on Wed08/18/23 at 0940, Until Discontinu ed, Routine, Stomach cramping, acute flushing. [facility] loperamide (IMODIUM A-D) capsule 4 mg 10 15:40: 43 08-18 17:29 :00 No [id number] 4mg 4 mg, Oral, PRN, 1 dose, Starting on Wed08/18/23 at 0940, Until Discontinu ed, Routine, Diarrhea [facility] atropine injection 0.25 mg 2023-08-18 15:40: 43 08-18 17:25 :00 No [id number] .25mg 0.25 mg, IV Push, PRN, 1 dose, Starting on Wed08/18/23 at 0940, Until Discontinu ed, Routine, Stomach cramping, acute flushing. [facility] loperamide (IMODIUM A-D) capsule 4 mg 08-18 15:40: 43 08-18 17:29 :00 No [id number] 4mg 4 mg, Oral, PRN, 1 dose, Starting on Wed08/18/23 at 0940, Until Discontinu ed, Routine, Diarrhea [facility] atropine injection 0.25 mg 08-18 15:40: 43 08-18 17:25 :00 No [id number] .25mg 0.25 mg, IV Push, PRN, 1 dose, Starting on Wed08/18/23 at 0940, Until Discontinu ed, Routine, Stomach cramping, acute flushing. [facility] fludeoxyglu cose F-18 (FDG) injection 11.92 millicurie 2022-08 18:00: 00 08-05 17:00 :00 No [id number] 11.92mC i 11.92 millicurie , Intravenou s, ONCE, 1 dose, On Wed08/05/23 at 1200, Routine [facility] NaCl 0.9% (NS) bolus infusion 1,000 mL 2022-08 19:00: 00 07-09 19:06 :00 No [id number] 1000mL at 999 mL/hr, 1,000 mL, IV Piggyback, ONCE, 1 dose, On Wed07/09/23 at 1300, STAT [facility] NaCl 0.9% (NS) bolus infusion 1,000 mL 2022-08 19:00: 00 07-09 19:06 :00 No [id number] 1000mL at 999 mL/hr, 1,000 mL, IV Piggyback, ONCE, 1 dose, On Wed07/09/23 at 1300, STAT [facility] NaCl 0.9% (NS) bolus infusion 1,000 mL 2022-08 19:00: 00 07-09 19:06 :00 No [id number] 1000mL at 999 mL/hr, 1,000 mL, IV Piggyback, ONCE, 1 dose, On Wed07/09/23 at 1300, [facility] fluorouraci L (ADRUCIL) 4,320 mg in NaCl 0.9% (NS) 241 mL infusion pump (for home use) 2022-08 19:45: 00 07-09 18:25 :00 Yes [id number] 2400mg/ m2 4,320 mg (2,400 mg/m2 ?1.8 m2 Treatment Plan BSA from Recorded weight), Continuous IV Infusion, OVER 46 HOURS, First dose on Wed07/07/23 at 1345, For 1 dose [facility] irinotecan (CAMPTOSAR) 300 mg in D5W 250 mL IV infusion 2022-08 18:00: 00 07-07 20:20 :00 No [id number] 300mg 300 mg, IV Infusion, ONCE, Administer over 90 Minutes, On Wed07/07/23 at 1200, For 1 dose
Ma y Y site irinotecan and leucovorin through a D5W containing line.&nbsp ; Pro tect from light.&nbs p;Per section 07.00 Medication Use policy 07.17 Dose Rounding, the patient's treatment meets criteria for dose rounding to within 10% of the nearest vial size. The calculated dose, 324 mg [based on 180 mg/m2; and a BSA of 1.8 m2] , has been rounded to a final dose of 300 mg. This represents a dose rounding change of 7.4%.&nbsp ; Tye Alcala [facility], PharmD&nbs p;07/07/20 23 09:15&nbsp ;[facility]<b r> [facility] bevacizumab -bvzr (ZIRABEV) 300 mg in NaCl 0.9% (NS) 100 mL infusion 2022-08 17:30: 00 07-07 18:15 :00 No [id number] 5mg/kg 300 mg (rounded from 347.5 mg = 5 mg/kg ?69.5 kg Treatment plan Recorded weight), IV Infusion, ONCE, Administer over 30 Minutes, On Wed07/07/23 at 1130, For 1 dose
Sh ould be diluted in 0.9% Sodium Chloride, not D5W. May store diluted solution in refrigerat or for up to 8 hours.&nbs p;Infuse 1st infusion for 90 minutes; 2nd infusion for 60 minutes; subsequent infusions for 30 minutes if well tolerated.
[facility] palonosetro n (ALOXI) injection 0.25 mg 2022-08 17:00: 00 07-07 16:51 :00 No [id number] .25mg 0.25 mg, Intravenou s, ONCE, 1 dose, On Wed07/07/23 at 1100, Routine
sociology faculty member approving Restricted medication : [facility] dexamethaso ne sod phos PF injection 10 mg 2022-08 17:00: 00 07-07 16:48 :00 No [id number] 10mg 10 mg, Slow IV Push, ONCE, 1 dose, On Wed07/07/23 at 1100, 1 mL [facility] loperamide (IMODIUM A-D) capsule 2 mg 2022-08 16:46: 06 Yes [id number] 2mg 2 mg, Oral, Q2HPRN, 6 doses, Starting on Wed07/07/23 at 1046, Until Discontinu ed, Routine, Diarrhea [facility] heparin lock flush (HEPARIN LOCKFLUSH(P ORCINE)(PF) ) 100 unit/mL injection 500 Units 2022-08 16:46: 06 07-08 16:45 :06 Yes [id number] 500U 500 Units, IV Push, PRN, Starting on Wed07/07/23 at 1046, Until Mireya 07/08/23 at 1045, Routine [facility] loperamide (IMODIUM A-D) capsule 4 mg 2022-08 16:46: 06 07-07 19:45 :00 No [id number] 4mg 4 mg, Oral, PRN, 1 dose, Starting on Wed07/07/23 at 1046, Until Discontinu ed, Routine, Diarrhea [facility] atropine injection 0.25 mg 2022-08 16:46: 06 07-07 18:23 :00 No [id number] .25mg 0.25 mg, IV Push, PRN, 1 dose, Starting on Wed07/07/23 at 1046, Until Discontinu ed, Routine, Stomach cramping, acute flushing. [facility] cefpodoxime 100 mg tablet 2022-08 00:00: 00 07-12 05:59 :00 Yes [id number] 100mg Take 1 tablet by mouth 2 (two) times daily for 7 days. [facility] cefpodoxime 100 mg tablet 2022-08 00:00: 00 07-12 05:59 :00 Yes [id number] 100mg Take 1 tablet by mouth 2 (two) times daily for 7 days. [facility] cefpodoxime 100 mg tablet 2022-08 00:00: 00 07-12 05:59 :00 Yes [id number] 100mg Take 1 tablet by mouth 2 (two) times daily for 7 days. [facility] cefpodoxime 100 mg tablet 2022-08 00:00: 00 07-12 05:59 :00 Yes [id number] 100mg Take 1 tablet by mouth 2 (two) times daily for 7 days. [facility] cefpodoxime 100 mg tablet 2022-08 00:00: 00 07-12 05:59 :00 Yes [id number] 100mg Take 1 tablet by mouth 2 (two) times daily for 7 days. [facility] cefpodoxime 100 mg tablet 2022-08 00:00: 00 07-12 05:59 :00 Yes [id number] 100mg Take 1 tablet by mouth 2 (two) times daily for 7 days. [facility] cefpodoxime 100 mg tablet 2022-08 00:00: 00 07-12 05:59 :00 Yes [id number] 100mg Take 1 tablet by mouth 2 (two) times daily for 7 days. [facility] cefpodoxime 100 mg tablet 2022-08 00:00: 00 07-12 05:59 :00 No [id number] 100mg Take 1 tablet by mouth 2 (two) times daily for 7 days. [facility] cefTRIAXone (ROCEPHIN) 1,000 mg in NaCl 0.9% (NS) 100 mL MINI-BAG 2022-08 15:15: 00 07-03 16:32 :00 No 1000mg 1,000 mg, IV Piggyback, ONCE, 1 dose, On 07/03/23 at 0915, Administer over 30 Minutes, 100 mL
Reas on for Anti-Infec tive: Documented Infection< br>Documen margarita Infection Site: Urine
D uration of Therapy: 7 days [facility] NaCl 0.9% (NS) bolus infusion 1,000 mL 2022-08 14:00: 00 07-03 15:21 :00 No 1000mL at 999 mL/hr, 1,000 mL, IV Infusion, ONCE, 1 dose, On 07/03/23 at 0800, JAY [facility] atropine injection 0.25 mg 2022-08 17:15: 57 06-26 17:14 :57 Yes [id number] .25mg 0.25 mg, IV Push, PRN, Starting on Wed06/25/23 at 1115, Until 06/26/23 at 1114, Routine, Stomach cramping, acute flushing. [facility] albuterol (PROVENTIL) 2.5 mg /3 mL (0.083 %) nebulizer solution 2.5 mg 2022-08 17:15: 57 06-26 17:14 :57 Yes [id number] 2.5mg 2.5 mg, Inhalation , PRN - SEE INSTRUCTIO NS, Starting on Wed06/25/23 at 1115, Until 06/26/23 at 1114, Routine, Shortness of Breath, Wheezing, As needed for chemothera py reactions [facility] methylpredn isolone sod succ (SOLU-MEDRO L) injection 125 mg 2022-08 17:15: 57 06-26 17:14 :57 Yes [id number] 125mg 125 mg, Slow IV Push, Administer over 3 Minutes, PRN - SEE INSTRUCTIO NS, Starting on Wed06/25/23 at 1115, Until 06/26/23 at 1114, Routine, As needed for chemothera py reactions [facility] EPINEPHrine (EPIPEN AUTO-INJECT OR) 0.3 mg/0.3 mL injection 0.3 mg 2022-08 17:15: 57 06-26 17:14 :57 Yes [id number] .3mg 0.3 mg, Intramuscu lar, PRN - SEE INSTRUCTIO NS, Starting on Wed06/25/23 at 1115, Until 06/26/23 at 1114, Routine, As needed for chemothera py reactions [facility] diphenhydrA MINE (BENADRYL) injection 50 mg 2022-08 17:15: 57 06-26 17:14 :57 Yes [id number] 50mg 50 mg, Slow IV Push, Administer over 2 Minutes, PRN - SEE INSTRUCTIO NS, Starting on Wed06/25/23 at 1115, Until 06/26/23 at 1114, Routine, As needed for chemothera py reactions< br>INDICAT ION: ANAPHYLAXI S [facility] heparin lock flush (HEPARIN LOCKFLUSH(P ORCINE)(PF) ) 100 unit/mL injection 500 Units 2022-08 17:15: 57 06-26 17:14 :57 Yes [id number] 500 Units, IV Push, PRN, Starting on Wed06/25/23 at 1115, Until 06/26/23 at 1114, Routine [facility] fluorouraci L (ADRUCIL) 4,320 mg in NaCl 0.9% (NS) 241 mL infusion pump (for home use) 2022-08 19:30: 00 06-25 17:55 :00 No [id number] 2400mg/ m2 4,320 mg (2,400 mg/m2 ?1.8 m2 Treatment Plan BSA from Recorded weight), Continuous IV Infusion, OVER 46 HOURS, First dose on Wed06/23/23 at 1330, For 1 dose [facility] irinotecan (CAMPTOSAR) 300 mg in D5W 250 mL IV infusion 2022-08 17:15: 00 06-23 19:55 :00 No [id number] 300mg 300 mg, IV Infusion, ONCE, Administer over 120 Minutes, On Wed06/23/23 at 1115, For 1 dose
Ma y Y site irinotecan and leucovorin through a D5W containing line.&nbsp ; Pro tect from light.&nbs p;Per section 07.00 Medication Use policy 07.17 Dose Rounding, the patient's treatment meets criteria for dose rounding to within 10% of the nearest vial size. The calculated dose, 324 mg [based on 180 mg/m2; and a BSA of 1.8 m2] , has been rounded to a final dose of 300 mg. This represents a dose rounding change of 7.4%.&nbsp ; Tye Alcala RPH, PharmD&nbs p;06/23/20 23 09:21&nbsp ;[facility]<b r> [facility] bevacizumab -bvzr (ZIRABEV) 348 mg in NaCl 0.9% (NS) 100 mL infusion 2022-08 16:15: 00 06-23 17:45 :00 No [id number] 348mg 348 mg, IV Infusion, ONCE, Administer over 60 Minutes, On Wed06/23/23 at 1015, For 1 dose
Sh ould be diluted in 0.9% Sodium Chloride, not D5W. May store diluted solution in refrigerat or for up to 8 hours.&nbs p;Infuse 1st infusion for 90 minutes; 2nd infusion for 60 minutes; subsequent infusions for 30 minutes if well tolerated.
[facility] loperamide (IMODIUM A-D) capsule 4 mg 2022-08 16:03: 11 06-23 16:13 :00 No [id number] 4mg 4 mg, Oral, PRN, 1 dose, Starting on Wed06/23/23 at 1003, Until Discontinu ed, Routine, Diarrhea [facility] palonosetro n (ALOXI) injection 0.25 mg 2022-08 15:45: 00 06-23 16:05 :00 No [id number] .25mg 0.25 mg, Intravenou s, ONCE, 1 dose, On Wed06/23/23 at 0945, Routine
sociology faculty member approving Restricted medication : [facility] dexamethaso ne sod phos PF injection 10 mg 2022-08 15:45: 00 06-23 16:08 :00 No [id number] 10mg 10 mg, Slow IV Push, ONCE, 1 dose, On Wed06/23/23 at 0945, 1 mL [facility] atropine injection 0.25 mg 2022-08 15:44: 10 06-23 17:40 :00 No [id number] .25mg 0.25 mg, IV Push, PRN, 1 dose, Starting on Wed06/23/23 at 0944, Until Discontinu ed, Routine, Stomach cramping, acute flushing. [facility] fluorouraci L (ADRUCIL) 4,320 mg in NaCl 0.9% (NS) 241 mL infusion pump (for home use) 2022-08 18:30: 00 06-11 16:29 :00 No [id number] 2400mg/ m2 4,320 mg (2,400 mg/m2 ?1.8 m2 Treatment Plan BSA from Recorded weight), Continuous IV Infusion, OVER 46 HOURS, First dose on Wed06/09/23 at 1330, For 1 dose [facility] fluorouraci L (ADRUCIL) 4,320 mg in NaCl 0.9% (NS) 241 mL infusion pump (for home use) 2022-08 18:30: 00 06-11 16:29 :00 No [id number] 2400mg/ m2 4,320 mg (2,400 mg/m2 ?1.8 m2 Treatment Plan BSA from Recorded weight), Continuous IV Infusion, OVER 46 HOURS, First dose on Wed06/09/23 at 1330, For 1 dose [facility] fluorouraci L (ADRUCIL) 4,320 mg in NaCl 0.9% (NS) 241 mL infusion pump (for home use) 2022-08 18:30: 00 06-11 16:29 :00 No [id number] 2400mg/ m2 4,320 mg (2,400 mg/m2 ?1.8 m2 Treatment Plan BSA from Recorded weight), Continuous IV Infusion, OVER 46 HOURS, First dose on Wed06/09/23 at 1330, For 1 dose [facility] irinotecan (CAMPTOSAR) 300 mg in D5W 250 mL IV infusion 2022-08 16:45: 00 06-09 17:30 :00 No [id number] 300mg 300 mg, IV Infusion, ONCE, Administer over 90 Minutes, On Wed06/09/23 at 1145, For 1 dose
Pr otect from light.&nbs p;December Y site irinotecan and leucovorin through a D5W containing line.&nbsp ;Per section 07.00 Medication Use policy 07.17 Dose Rounding, the patient's treatment meets criteria for dose rounding to within 10% of the nearest vial size. The calculated dose, 324 mg [based on 180 mg/m2; and a BSA of 1.8 m2] , has been rounded to a final dose of 300 mg. This represents a dose rounding change of 7.4%.&nbsp ; Tye Alcala, RONALD, PharmD&nbs p; 3 07:11&nbsp ;[facility]<b r> [facility] irinotecan (CAMPTOSAR) 300 mg in D5W 250 mL IV infusion 2022-08 16:45: 00 06-09 17:30 :00 No [id number] 300mg 300 mg, IV Infusion, ONCE, Administer over 90 Minutes, On Wed06/09/23 at 1145, For 1 dose
Pr otect from light.&nbs p;December site irinotecan and leucovorin through a D5W containing line.&nbsp ;Per section 07.00 Medication Use policy 07.17 Dose Rounding, the patient's treatment meets criteria for dose rounding to within 10% of the nearest vial size. The calculated dose, 324 mg [based on 180 mg/m2; and a BSA of 1.8 m2] , has been rounded to a final dose of 300 mg. This represents a dose rounding change of 7.4%.&nbsp ; Tye Alcala RPH, PharmD&nbs p; 3 07:11&nbsp ;[facility]<b r> [facility] irinotecan (CAMPTOSAR) 300 mg in D5W 250 mL IV infusion 2022-08 16:45: 00 06-09 17:30 :00 No [id number] 300mg 300 mg, IV Infusion, ONCE, Administer over 90 Minutes, On Wed06/09/23 at 1145, For 1 dose
Pr otect from light.&nbs p;December site irinotecan and leucovorin through a D5W containing line.&nbsp ;Per section 07.00 Medication Use policy 07.17 Dose Rounding, the patient's treatment meets criteria for dose rounding to within 10% of the nearest vial size. The calculated dose, 324 mg [based on 180 mg/m2; and a BSA of 1.8 m2] , has been rounded to a final dose of 300 mg. This represents a dose rounding change of 7.4%.&nbsp ; Tye Alcala RPH, PharmD&nbs p; 3 07:11&nbsp ;[facility]<b r> [facility] bevacizumab -bvzr (ZIRABEV) 348 mg in NaCl 0.9% (NS) 100 mL infusion 2022-08 15:15: 00 06-09 15:55 :00 No [id number] 348mg 348 mg, IV Infusion, ONCE, Administer over 90 Minutes, On Wed06/09/23 at 1015, For 1 dose
Sh ould be diluted in 0.9% Sodium Chloride, not D5W. May store diluted solution in refrigerat or for up to 8 hours.&nbs p;Infuse 1st infusion for 90 minutes; 2nd infusion for 60 minutes; subsequent infusions for 30 minutes if well tolerated.
[facility] -[facility] (ZIRABEV) 348 mg in NaCl 0.9% (NS) 100 mL infusion 2022-08 15:15: 00 06-09 15:55 :00 No [id number] 348mg 348 mg, IV Infusion, ONCE, Administer over 90 Minutes, On Wed06/09/23 at 1015, For 1 dose
Sh ould be diluted in 0.9% Sodium Chloride, not D5W. May store diluted solution in refrigerat or for up to 8 hours.&nbs p;Infuse 1st infusion for 90 minutes; 2nd infusion for 60 minutes; subsequent infusions for 30 minutes if well tolerated.
[facility] bevacizumab -bvzr (ZIRABEV) 348 mg in NaCl 0.9% (NS) 100 mL infusion 2022-08 15:15: 00 06-09 15:55 :00 No [id number] 348mg 348 mg, IV Infusion, ONCE, Administer over 90 Minutes, On Wed06/09/23 at 1015, For 1 dose
Sh ould be diluted in 0.9% Sodium Chloride, not D5W. May store diluted solution in refrigerat or for up to 8 hours.&nbs p;Infuse 1st infusion for 90 minutes; 2nd infusion for 60 minutes; subsequent infusions for 30 minutes if well tolerated.
[facility] palonosetro n (ALOXI) injection 0.25 mg 2022-08 14:45: 00 06-09 14:49 :00 No [id number] .25mg 0.25 mg, Intravenou s, ONCE, 1 dose, On Wed06/09/23 at 0945, Routine
sociology faculty member approving Restricted medication : [facility] dexamethaso ne sod phos PF injection 10 mg 2022-08 14:45: 00 06-09 14:53 :00 No [id number] 10mg 10 mg, Slow IV Push, ONCE, 1 dose, On Wed06/09/23 at 0945, 1 mL [facility] palonosetro n (ALOXI) injection 0.25 mg 2022-08 14:45: 00 06-09 14:49 :00 No [id number] .25mg 0.25 mg, Intravenou s, ONCE, 1 dose, On Wed06/09/23 at 0945, Routine
sociology faculty member approving Restricted medication : [facility] dexamethaso ne sod phos PF injection 10 mg 2022-08 14:45: 00 06-09 14:53 :00 No [id number] 10mg 10 mg, Slow IV Push, ONCE, 1 dose, On Wed06/09/23 at 0945, 1 mL [facility] palonosetro n (ALOXI) injection 0.25 mg 2022-08 14:45: 00 06-09 14:49 :00 No [id number] .25mg 0.25 mg, Intravenou s, ONCE, 1 dose, On Wed06/09/23 at 0945, Routine
sociology faculty member approving Restricted medication : [facility] dexamethaso ne sod phos PF injection 10 mg 2022-08 14:45: 00 06-09 14:53 :00 No [id number] 10mg 10 mg, Slow IV Push, ONCE, 1 dose, On Wed06/09/23 at 0945, 1 mL [facility] loperamide (IMODIUM A-D) capsule 2 mg 2022-08 14:30: 09 Yes [id number] 2mg 2 mg, Oral, Q2HPRN, 6 doses, Starting on Wed06/09/23 at 0930, Until Discontinu ed, Routine, Diarrhea [facility] loperamide (IMODIUM A-D) capsule 4 mg 2022-08 14:30: 09 Yes [id number] 4mg 4 mg, Oral, PRN, 1 dose, Starting on Wed06/09/23 at 0930, Until Discontinu ed, Routine, Diarrhea [facility] loperamide (IMODIUM A-D) capsule 2 mg 2022-08 14:30: 09 Yes [id number] 2mg 2 mg, Oral, Q2HPRN, 6 doses, Starting on Wed06/09/23 at 0930, Until Discontinu ed, Routine, Diarrhea [facility] loperamide (IMODIUM A-D) capsule 4 mg 2022-08 14:30: 09 Yes [id number] 4mg 4 mg, Oral, PRN, 1 dose, Starting on Wed06/09/23 at 0930, Until Discontinu ed, Routine, Diarrhea [facility] loperamide (IMODIUM A-D) capsule 2 mg 2022-08 14:30: 09 Yes [id number] 2mg 2 mg, Oral, Q2HPRN, 6 doses, Starting on Wed06/09/23 at 0930, Until Discontinu ed, Routine, Diarrhea [facility] loperamide (IMODIUM A-D) capsule 4 mg 2022-08 14:30: 09 Yes [id number] 4mg 4 mg, Oral, PRN, 1 dose, Starting on Wed06/09/23 at 0930, Until Discontinu ed, Routine, Diarrhea [facility] heparin lock flush (HEPARIN LOCKFLUSH(P ORCINE)(PF) ) 100 unit/mL injection 500 Units 2022-08 14:30: 09 06-10 14:29 :09 No [id number] 500U 500 Units, IV Push, PRN, Starting on Wed06/09/23 at 0930, Until Mireya 06/10/23 at 0929, Routine [facility] heparin lock flush (HEPARIN LOCKFLUSH(P ORCINE)(PF) ) 100 unit/mL injection 500 Units 2022-08 14:30: 09 06-10 14:29 :09 No [id number] 500U 500 Units, IV Push, PRN, Starting on Wed06/09/23 at 0930, Until Mireya 06/10/23 at 0929, Routine [facility] heparin lock flush (HEPARIN LOCKFLUSH(P ORCINE)(PF) ) 100 unit/mL injection 500 Units 2022-08 14:30: 09 06-10 14:29 :09 No [id number] 500U 500 Units, IV Push, PRN, Starting on Wed06/09/23 at 0930, Until Mireya 06/10/23 at 0929, Routine [facility] atropine injection 0.25 mg 2022-08 14:30: 09 06-09 16:00 :00 No [id number] .25mg 0.25 mg, IV Push, PRN, 1 dose, Starting on Wed06/09/23 at 0930, Until Discontinu ed, Routine, Stomach cramping, acute flushing. [facility] atropine injection 0.25 mg 2022-08 14:30: 09 06-09 16:00 :00 No [id number] .25mg 0.25 mg, IV Push, PRN, 1 dose, Starting on Wed06/09/23 at 0930, Until Discontinu ed, Routine, Stomach cramping, acute flushing. [facility] atropine injection 0.25 mg 2022-08 14:30: 09 06-09 16:00 :00 No [id number] .25mg 0.25 mg, IV Push, PRN, 1 dose, Starting on Wed06/09/23 at 0930, Until Discontinu ed, Routine, Stomach cramping, acute flushing. [facility] lisinopriL 10 mg tablet 2022-08 0 00:00: 00 06-27 05:59 :00 No [id number] 10mg Take 1 tablet by mouth daily for 30 days. [facility] tamsulosin 0.4 mg 24 hr capsule 2022-08 0-19 00:00: 00 06-27 05:59 :00 No [id number] 01 .4mg Take 1 capsule by mouth daily for 30 days. [facility] lisinopriL 10 mg tablet 2022-08 0-19 00:00: 00 06-27 05:59 :00 No [id number] 10mg Take 1 tablet by mouth daily for 30 days. [facility] tamsulosin 0.4 mg 24 hr capsule 2022-08 0-19 00:00: 00 06-27 05:59 :00 No [id number] 01 .4mg Take 1 capsule by mouth daily for 30 days. [facility] lisinopriL 10 mg tablet 2022-08 0- 00:00: 00 06-27 05:59 :00 No [id number] 10mg Take 1 tablet by mouth daily for 30 days. [facility] tamsulosin 0.4 mg 24 hr capsule 2022-08 0- 00:00: 00 06-27 05:59 :00 No [id number] 01 .4mg Take 1 capsule by mouth daily for 30 days. [facility] lisinopriL 10 mg tablet 2022-08 0-19 00:00: 00 06-27 05:59 :00 No [id number] 10mg Take 1 tablet by mouth daily for 30 days. [facility] tamsulosin 0.4 mg 24 hr capsule 2022-08 0-19 00:00: 00 06-27 05:59 :00 No [id number] 01 .4mg Take 1 capsule by mouth daily for 30 days. [facility] lisinopriL 10 mg tablet 2022-08 0-19 00:00: 00 06-27 05:59 :00 No [id number] 10mg Take 1 tablet by mouth daily for 30 days. [facility] tamsulosin 0.4 mg 24 hr capsule 2022-08 0-19 00:00: 00 06-27 05:59 :00 No [id number] 01 .4mg Take 1 capsule by mouth daily for 30 days. [facility] lisinopriL 10 mg tablet 2022-08 0-19 00:00: 00 06-27 05:59 :00 No [id number] 10mg Take 1 tablet by mouth daily for 30 days. [facility] tamsulosin 0.4 mg 24 hr capsule 2022-08 0- 00:00: 00 06-27 05:59 :00 No [id number] 01 .4mg Take 1 capsule by mouth daily for 30 days. [facility] lisinopriL 10 mg tablet 2022-08 0 00:00: 00 06-27 05:59 :00 No [id number] 10mg Take 1 tablet by mouth daily for 30 days. [facility] tamsulosin 0.4 mg 24 hr capsule 2022-08 0 00:00: 00 06-27 05:59 :00 No [id number] 01 .4mg Take 1 capsule by mouth daily for 30 days. [facility] lisinopriL 10 mg tablet 2022-08 0 00:00: 00 06-27 05:59 :00 No [id number] 10mg Take 1 tablet by mouth daily for 30 days. [facility] tamsulosin 0.4 mg 24 hr capsule 2022-08 0 00:00: 00 06-27 05:59 :00 No [id number] 01 .4mg Take 1 capsule by mouth daily for 30 days. [facility] lisinopriL 10 mg tablet 2022-08 0 00:00: 00 06-27 05:59 :00 No [id number] 10mg Take 1 tablet by mouth daily for 30 days. [facility] tamsulosin 0.4 mg 24 hr capsule 2022-08 0- 00:00: 00 06-27 05:59 :00 No [id number] 01 .4mg Take 1 capsule by mouth daily for 30 days. [facility] lisinopriL 10 mg tablet 2022-08 0- 00:00: 00 06-27 05:59 :00 No [id number] 10mg Take 1 tablet by mouth daily for 30 days. [facility] tamsulosin 0.4 mg 24 hr capsule 2022-08 0-19 00:00: 00 06-27 05:59 :00 No [id number] 01 .4mg Take 1 capsule by mouth daily for 30 days. [facility] lisinopriL 10 mg tablet 2022-08 0- 00:00: 00 06-27 05:59 :00 No [id number] 10mg Take 1 tablet by mouth daily for 30 days. [facility] tamsulosin 0.4 mg 24 hr capsule 2022-08 0- 00:00: 00 06-27 05:59 :00 No [id number] 01 .4mg Take 1 capsule by mouth daily for 30 days. [facility] lisinopriL 10 mg tablet 2022-08 0- 00:00: 00 06-27 05:59 :00 No [id number] 10mg Take 1 tablet by mouth daily for 30 days. [facility] tamsulosin 0.4 mg 24 hr capsule 2022-08 0 00:00: 00 06-27 05:59 :00 No [id number] 01 .4mg Take 1 capsule by mouth daily for 30 days. [facility] lisinopriL 10 mg tablet 2022-08 0 00:00: 00 06-27 05:59 :00 No [id number] 10mg Take 1 tablet by mouth daily for 30 days. [facility] tamsulosin 0.4 mg 24 hr capsule 2022-08 0- 00:00: 00 06-27 05:59 :00 No [id number] 01 .4mg Take 1 capsule by mouth daily for 30 days. [facility] lisinopriL 10 mg tablet 2022-08 0- 00:00: 00 06-27 05:59 :00 No [id number] 10mg Take 1 tablet by mouth daily for 30 days. [facility] tamsulosin 0.4 mg 24 hr capsule 2022-08 0- 00:00: 00 06-27 05:59 :00 No [id number] 01 .4mg Take 1 capsule by mouth daily for 30 days. [facility] lisinopriL 10 mg tablet 2022-08 0- 00:00: 00 06-27 05:59 :00 No [id number] 10mg Take 1 tablet by mouth daily for 30 days. [facility] tamsulosin 0.4 mg 24 hr capsule 2022-08 0 00:00: 00 06-27 05:59 :00 No [id number] 01 .4mg Take 1 capsule by mouth daily for 30 days. [facility] lisinopriL 10 mg tablet 2022-08 0 00:00: 00 06-27 05:59 :00 No [id number] 10mg Take 1 tablet by mouth daily for 30 days. [facility] tamsulosin 0.4 mg 24 hr capsule 2022-08 00:00: 00 06-27 05:59 :00 No [id number] 01 .4mg Take 1 capsule by mouth daily for 30 days. [facility] lisinopriL 10 mg tablet 2022-08 00:00: 00 06-27 05:59 :00 No [id number] 10mg Take 1 tablet by mouth daily for 30 days. [facility] tamsulosin 0.4 mg 24 hr capsule 2022-08 00:00: 00 06-27 05:59 :00 No [id number] 01 .4mg Take 1 capsule by mouth daily for 30 days. [facility] lisinopriL 10 mg tablet 2022-08 0 00:00: 00 06-27 05:59 :00 No [id number] 10mg Take 1 tablet by mouth daily for 30 days. [facility] tamsulosin 0.4 mg 24 hr capsule 2022-08 00:00: 00 06-27 05:59 :00 No [id number] 01 .4mg Take 1 capsule by mouth daily for 30 days. [facility] capecitabin e 500 mg tablet 2022-08 00:00: 00 06-26 05:59 :00 No [id number] 1500mg Take 3 tablets by mouth 2 (two) times daily for 30 days. [facility] capecitabin e 500 mg tablet 2022-08 0-18 00:00: 00 06-26 05:59 :00 No [id number] 1500mg Take 3 tablets by mouth 2 (two) times daily for 30 days. [facility] capecitabin e 500 mg tablet 2022-08 0-18 00:00: 00 06-26 05:59 :00 No [id number] 1500mg Take 3 tablets by mouth 2 (two) times daily for 30 days. [facility] capecitabin e 500 mg tablet 2022-08 0-18 00:00: 00 06-26 05:59 :00 No [id number] 1500mg Take 3 tablets by mouth 2 (two) times daily for 30 days. [facility] capecitabin e 500 mg tablet 2022-08 0-18 00:00: 00 06-26 05:59 :00 No [id number] 1500mg Take 3 tablets by mouth 2 (two) times daily for 30 days. [facility] capecitabin e 500 mg tablet 2022-08 018 00:00: 00 06-26 05:59 :00 No [id number] 1500mg Take 3 tablets by mouth 2 (two) times daily for 30 days. [facility] capecitabin e 500 mg tablet 2022-08 0-18 00:00: 00 06-26 05:59 :00 No [id number] 1500mg Take 3 tablets by mouth 2 (two) times daily for 30 days. [facility] capecitabin e 500 mg tablet 2022-08 0-18 00:00: 00 06-26 05:59 :00 No [id number] 1500mg Take 3 tablets by mouth 2 (two) times daily for 30 days. [facility] capecitabin e 500 mg tablet 2022-08 0-18 00:00: 00 06-26 05:59 :00 No [id number] 1500mg Take 3 tablets by mouth 2 (two) times daily for 30 days. [facility] capecitabin e 500 mg tablet 2022-08 0-18 00:00: 00 06-26 05:59 :00 No [id number] 1500mg Take 3 tablets by mouth 2 (two) times daily for 30 days. [facility] capecitabin e 500 mg tablet 2022-08 0-18 00:00: 00 06-26 05:59 :00 No [id number] 1500mg Take 3 tablets by mouth 2 (two) times daily for 30 days. [facility] capecitabin e 500 mg tablet 2022-08 018 00:00: 00 06-26 05:59 :00 No [id number] 1500mg Take 3 tablets by mouth 2 (two) times daily for 30 days. [facility] capecitabin e 500 mg tablet 2022-08 0-18 00:00: 00 06-26 05:59 :00 No [id number] 1500mg Take 3 tablets by mouth 2 (two) times daily for 30 days. [facility] capecitabin e 500 mg tablet 2022-08 018 00:00: 00 06-26 05:59 :00 No [id number] 1500mg Take 3 tablets by mouth 2 (two) times daily for 30 days. [facility] capecitabin e 500 mg tablet 2022-08 018 00:00: 00 06-26 05:59 :00 No [id number] 1500mg Take 3 tablets by mouth 2 (two) times daily for 30 days. [facility] capecitabin e 500 mg tablet 2022-08 0-18 00:00: 00 06-26 05:59 :00 No [id number] 1500mg Take 3 tablets by mouth 2 (two) times daily for 30 days. [facility] capecitabin e 500 mg tablet 2022-08 0-18 00:00: 00 06-26 05:59 :00 No [id number] 1500mg Take 3 tablets by mouth 2 (two) times daily for 30 days. [facility] capecitabin e 500 mg tablet 2022-08 0-18 00:00: 06-26 05:59 :00 No [id number] 1500mg Take 3 tablets by mouth 2 (two) times daily for 30 days. [facility] NaCl 0.9% (NS) PgBk 100 mL with ceFEPIme 1 gram SolR 1,000 mg 2022-08 018 00:00: 00 06-06 04:59 :00 No [id number] 1000mg Infuse 1,000 mg every 8 (eight) hours for 30 doses. [facility] NaCl 0.9% (NS) PgBk 100 mL with ceFEPIme 1 gram SolR 1,000 mg 2022-08 00:00: 00 06-06 04:59 :00 No [id number] 1000mg Infuse 1,000 mg every 8 (eight) hours for 30 doses. [facility] NaCl 0.9% (NS) PgBk 100 mL with ceFEPIme 1 gram SolR 1,000 mg 2022-08 00:00: 00 06-06 04:59 :00 No [id number] 1000mg Infuse 1,000 mg every 8 (eight) hours for 30 doses. [facility] lisinopriL (PRINIVIL,Z ESTRIL) tablet 10 mg 2022-08 14:00: 00 Yes 10mg 10 mg, Oral, DAILY, First dose (after last modificati on) on Wed05/25/23 at 0900, Until Discontinu ed, Routine [facility] enalaprilat (VASOTEC I.V.) injection 1.25 mg 2022-08 05:14: 26 Yes 1.25mg 1.25 mg, Slow IV Push, Q4HPRN, Starting on Wed05/25/23 at 0014, Until Discontinu ed, Routine, SBP >160mmHg or DBP > 110 [facility] lidocaine 1% (PF) (XYLOCAINE) injection 5 mL 2022-08 0 22:15: 00 05-25 20:30 :00 No 5mL 5 mL, Subcutaneo us, ONCE, 1 dose, On Wed05/24/23 at 2000, Routine [facility] NaCl 0.9% (NS) injection 10 mL 2022-08 22:05: 45 Yes 10mL 10 mL, Slow IV Push, PRN, Starting on Wed05/24/23 at 1705, Until Discontinu ed, Routine, line maintenanc e [facility] enalaprilat (VASOTEC I.V.) injection 1.25 mg 2022-08 18:06: 36 05-25 05:14 :50 No 1.25mg 1.25 mg, Slow IV Push, Q4HPRN, Starting on Wed05/23/23 at 1306, Until Wed05/25/23 at 0014, Routine, SBP >170mmHg [facility] sennosides (SENOKOT) tablet 8.6 mg 2022-08 14:00: 00 Yes 8.6mg 8.6 mg, Oral, DAILY, First dose on Wed05/23/23 at 0900, Until Discontinu ed, Routine [facility] docusate (COLACE) capsule 100 mg 2022-08 01:00: 00 Yes 100mg 100 mg, Oral, BID, First dose on 05/22/23 at 2000, Until Discontinu ed, Routine [facility] ipratropium -albuteroL (DUONEB) 0.5 mg-3 mg(2.5 mg base)/3 mL nebulizer solution 3 mL 2022-08 01:00: 00 05-24 17:37 :19 No 3mL 3 mL, Inhalation , TID, First dose on 05/22/23 at 2000, Until Discontinu ed, Routine [facility] polyethylen e glycol 3350 powder 17 g 2022-08 0 22:00: 00 05-22 22:08 :00 No 17g 17 g, Oral, ONCE, 1 dose, On Wed05/22/23 at 1700, Routine [facility] Sliding Scale Insulin-Reg ular 2022-08 21:30: 00 Yes Subcutaneo us, AC+HS, First dose on Wed05/22/23 at 1630, Until Discontinu ed, Routine [facility] glucagon (GLUCAGEN DIAGNOSTIC KIT) injection 1 mg 2022-08 21:12: 46 Yes 1mg 1 mg, Intramuscu lar, PRN, Starting on 05/22/23 at 1612, Until Discontinu ed, JAY, Blood Glucose < or = 70 mg/dL and patient is NPO, unable to swallow or has mental changes. [facility] dextrose 50 % in water (D50W) injection 25 mL 2022-08 21:12: 46 Yes 25mL 25 mL, Slow IV Push, PRN, Starting on 05/22/23 at 1612, Until Discontinu ed, JAY, Blood Glucose < or = 70 mg/dL and patient is NPO, unable to swallow or has mental status changes. [facility] ceFEPIme (MAXIPIME) 1,000 mg in NaCl 0.9% (NS) 100 mL MINI-BAG 2022-08 17:30: 00 06-05 17:29 :00 No 1000mg 1,000 mg, IV Piggyback, Q8H ABX, 42 doses, First dose on 05/22/23 at 1230, Last dose on 06/05/23 at 0430, Administer over 4 Hours, 100 mL
Reas on for Anti-Infec tive: Documented Infection< br>Documen margarita Infection Site: Blood
D uration of Therapy: 14 days [facility] methylpheni date HCl (RITALIN) tablet 5 mg 2022-08 14:00: 00 Yes 5mg 5 mg, Oral, QAM, First dose on 05/22/23 at 0900, Until Discontinu ed, Routine [facility] tamsulosin (FLOMAX) capsule 0.4 mg 2022-08 14:00: 00 Yes .4mg 0.4 mg, Oral, DAILY, First dose on 05/22/23 at 0900, Until Discontinu ed, Routine [facility] lisinopriL (PRINIVIL,Z ESTRIL) tablet 2.5 mg 2022-08 14:00: 00 05-24 16:04 :01 No 2.5mg 2.5 mg, Oral, DAILY, First dose on 05/22/23 at 0900, Until Discontinu ed, Routine [facility] capecitabin e (XELODA) tablet 1,500 mg 2022-08 13:00: 00 Yes 1500mg 1,500 mg, Oral, BID, First dose on 05/22/23 at 0800, Until Discontinu ed, Routine [facility] magnesium sulfate in water 2 gram/50 mL (4 %) infusion 2 g 2022-08 09:45: 00 05-22 10:55 :00 No 2g 2 g, IV Piggyback, Administer over 60 Minutes, ONCE, 1 dose, On 05/22/23 at 0445, Routine [facility] ceFEPIme (MAXIPIME) 1,000 mg in NaCl 0.9% (NS) 100 mL MINI-BAG 2022-08 09:45: 00 05-22 09:39 :00 No 1000mg 1,000 mg, IV Piggyback, ONCE, 1 dose, On 05/22/23 at 0445, Administer over 30 Minutes, 100 mL
Reas on for Anti-Infec tive: Documented Infection< br>Documen margarita Infection Site: Blood
D uration of Therapy: 14 days [facility] lisinopriL (PRINIVIL,Z ESTRIL) tablet 2.5 mg 2022-08 03:00: 00 05-22 02:19 :00 No 2.5mg 2.5 mg, Oral, ONCE, 1 dose, On Wed05/21/23 at 2200, Routine [facility] levoFLOXaci n in D5W (LEVAQUIN) 250 mg/50 mL Piggyback 250 mg 2022-08 03:00: 00 05-22 04:49 :00 No 250mg 250 mg, IV Piggyback, ONCE, 1 dose, On Wed05/21/23 at 2200, Administer over 60 Minutes, 50 mL
Facu lty member approving Non-formul rhoda medication : MEGADC
Reason for non-formul rhoda use: SPECIFIC INDICATION FOR NONFORMULA RY PRODUCT
Reason for Anti-Infec tive: Documented Infection< br>Documen margarita Infection Site: Blood
D uration of Therapy: 10 days [facility] famotidine (PEPCID AC) tablet 20 mg 2022-08 01:00: 00 Yes 20mg 20 mg, Oral, BID, First dose on Wed05/21/23 at 2000, Until Discontinu ed, Routine [facility] meclizine (TRAVEL-EAS E (MECLIZINE) ) tablet 25 mg 2022-08 17:48: 17 Yes 25mg 25 mg, Oral, TIDPRN, Starting on Wed05/21/23 at 1248, Until Discontinu ed, Routine, Dizziness [facility] potassium chloride in water 10 mEq/100 mL RTU 10 mEq 2022-08 15:00: 00 05-21 21:00 :00 No 10meq 10 mEq, IV Piggyback, Q1H, 4 doses, First dose on Wed05/21/23 at 1000, Last dose on Wed05/21/23 at 1300, Administer over 60 Minutes, 100 mL [facility] enoxaparin (LOVENOX) injection 40 mg 2022-08 14:00: 00 Yes 40mg 40 mg, Subcutaneo us, DAILY, First dose on Wed05/21/23 at 0900, Until Discontinu ed, Routine [facility] docusate (COLACE) capsule 100 mg 2022-08 14:00: 00 05-22 21:06 :42 No 100mg 100 mg, Oral, DAILY, First dose on Wed05/21/23 at 0900, Until Discontinu ed, [facility] levoFLOX[facility] n in D5W (LEVAQUIN) 500 mg/100 mL Piggyback 500 mg 2022-08 13:00: 00 05-22 02:11 :43 No 500mg 500 mg, IV Piggyback, at 100 mL/hr Administer over 60 Minutes, Q24H ABX, 3 doses, First dose on Wed05/21/23 at 0800, Last dose on Wed05/23/23 at 0800, JAY
Re ason for Anti-Infec tive: Documented Infection< br>Documen margarita Infection Site: Respirator y
Durat ion of Therapy: 7 days [facility] methylPREDN ISolone sod succ (SOLU-MEDRO L (PF)) injection 40 mg 2022-08 13:00: 00 05-21 17:32 :00 No 40mg 40 mg, Intravenou s, Q6H, 2 doses, First dose on Wed05/21/23 at 0800, Last dose on Wed05/21/23 at 1200, 1 mL [facility] potassium chloride in water 10 mEq/100 mL RTU 10 mEq 2022-08 12:45: 00 05-21 15:14 :00 No 10meq 10 mEq, IV Piggyback, ONCE, 1 dose, On Wed05/21/23 at 0745, Administer over 60 Minutes, 100 mL [facility] traMADoL (ULTRAM) tablet 50 mg 2022-08 05:15: 00 05-21 04:29 :00 No 50mg 50 mg, Oral, ONCE, 1 dose, On Wed05/21/23 at 0015, Routine [facility] ketorolac (TORADOL) injection 15 mg 2022-08 05:00: 00 05-21 04:57 :00 No 15mg 15 mg, Intramuscu lar, ONCE, 1 dose, On Wed05/21/23 at 0000, JAY [facility] ipratropium -albuteroL (DUONEB) 0.5 mg-3 mg(2.5 mg base)/3 mL nebulizer solution 3 mL 2022-08 04:48: 58 Yes 3mL 3 mL, Inhalation , Q6HPRN, Starting on Wed05/20/23 at 2348, Until Discontinu ed, Routine, Wheezing [facility] traMADoL (ULTRAM) tablet 50 mg 2022-08 04:48: 27 05-23 04:47 :27 No 50mg 50 mg, Oral, Q8HPRN, Starting on Wed05/20/23 at 2348, Until 05/22/23 at 2347, Routine, Pain (scale 4-6) [facility] acetaminoph en (TYLENOL) tablet 650 mg 2022-08 04:48: 23 Yes 650mg 650 mg, Oral, Q6HPRN, Starting on Mireya 05/20/23 at 2348, Until Discontinu ed, Routine, Pain (scale 1-3) [facility] NaCl 0.9% (NS) bolus infusion 1,000 mL 2022-08 03:15: 00 05-21 03:34 :00 No 1000mL at 999 mL/hr, 1,000 mL, IV Infusion, ONCE, 1 dose, On Mireya 05/20/23 at 2215, JAY [facility] cefTRIAXone (ROCEPHIN) 1,000 mg in NaCl 0.9% (NS) 100 mL MINI-BAG 2022-08 03:00: 00 05-21 03:45 :00 No 1000mg 1,000 mg, IV Piggyback, ONCE, 1 dose, On Mireya 05/20/23 at 2200, Administer over 30 Minutes, 100 mL
Reas on for Anti-Infec tive: Empiric Therapy for Suspected Infection< br>Empiric Therapy Site: Respirator y
Durat ion of therapy: 72 hours [facility] iron sucrose (VENOFER) 200 mg in NaCl 0.9% (NS) 100 mL infusion 2022-08 16:00: 00 05-19 17:25 :00 No [id number] 200mg 200 mg, IV Infusion, ONCE, Administer over 60 Minutes, On Wed05/19/23 at 1100, For 1 dose [facility] cyanocobala min (DODEX) injection 1,000 mcg 2022-08 16:00: 00 05-19 16:11 :00 No [id number] 1000ug 1,000 mcg, Intramuscu lar, ONCE, 1 dose, On Wed05/19/23 at 1100, Routine [facility] NaCl 0.9% (NS) IV infusion 1,000 mL 2023-1 0-11 16:00: 00 05-19 17:10 :00 No [id number] 1000mL at 1,000 mL/hr, IV Infusion, ONCE, 1 dose, On Wed05/19/23 at 1100, Routine [facility] bevacizumab -bvzr (ZIRABEV) 500 mg in NaCl 0.9% (NS) 100 mL infusion 2022-08 16:00: 00 05-19 18:13 :00 No [id number] 7.5mg/k g 500 mg (rounded from 536.25 mg = 7.5 mg/kg ?71.5 kg Treatment plan Recorded weight), IV Infusion, ONCE, Administer over 30 Minutes, On Wed05/19/23 at 1100, For 1 dose
Sh ould be diluted in 0.9% Sodium Chloride, not D5W. May store diluted solution in refrigerat or for up to 8 hours.&nbs p;Infuse 1st infusion over 90 minutes; 2nd infusion for 60 minutes; subsequent infusions over 30 minutes if well tolerated.
[facility] iron sucrose (VENOFER) 200 mg in NaCl 0.9% (NS) 100 mL infusion 2022-08 16:00: 00 05-19 17:25 :00 No [id number] 200mg 200 mg, IV Infusion, ONCE, Administer over 60 Minutes, On Wed05/19/23 at 1100, For 1 dose [facility] cyanocobala min (DODEX) injection 1,000 mcg 2022-08 16:00: 00 05-19 16:11 :00 No [id number] 1000ug 1,000 mcg, Intramuscu lar, ONCE, 1 dose, On Wed05/19/23 at 1100, Routine [facility] NaCl 0.9% (NS) IV infusion 1,000 mL 2022-08 16:00: 00 05-19 17:10 :00 No [id number] 1000mL at 1,000 mL/hr, IV Infusion, ONCE, 1 dose, On Wed05/19/23 at 1100, Routine [facility] bevacizumab -bvzr (ZIRABEV) 500 mg in NaCl 0.9% (NS) 100 mL infusion 2022-08 16:00: 00 05-19 18:13 :00 No [id number] 7.5mg/k g 500 mg (rounded from 536.25 mg = 7.5 mg/kg ?71.5 kg Treatment plan Recorded weight), IV Infusion, ONCE, Administer over 30 Minutes, On Wed05/19/23 at 1100, For 1 dose
Sh ould be diluted in 0.9% Sodium Chloride, not D5W. May store diluted solution in refrigerat or for up to 8 hours.&nbs p;Infuse 1st infusion over 90 minutes; 2nd infusion for 60 minutes; subsequent infusions over 30 minutes if well tolerated.
[facility] heparin lock flush (HEPARIN LOCKFLUSH(P ORCINE)(PF) ) 100 unit/mL injection 500 Units 2022-08 15:46: 19 05-20 15:45 :19 No [id number] 500U 500 Units, IV Push, PRN, Starting on Wed05/19/23 at 1046, Until Wed05/20/23 at 1045, Routine [facility] heparin lock flush (HEPARIN LOCKFLUSH(P ORCINE)(PF) ) 100 unit/mL injection 500 Units 2022-08 15:46: 19 05-20 15:45 :19 No [id number] 500U 500 Units, IV Push, PRN, Starting on Wed05/19/23 at 1046, Until Mireya 05/20/23 at 1045, Routine [facility] ROSUVASTATI N 40 mg tablet 2022-08 00:00: 00 Yes [id number] 40mg TAKE 1 TABLET BY MOUTH AT BEDTIME [facility] proCHLORper azine 10 mg tablet 2022-08 00:00: 00 Yes [id number] 10mg Take 1 tablet by mouth every 6 (six) hours as needed for Nausea and Vomiting (N/V). [facility] loperamide 2 mg capsule 2022-08 00:00: 00 Yes [id number] 4mg Take 2 capsules by mouth every 4 (four) hours as needed for Diarrhea. Take 2 capsules (4 mg) after the first loose stool, then 1 capsule (2 mg) every 4 hours as needed for diarrhea. Maximum 8 capsules per day. [facility] diphenoxyla te-atropine 2.5-0.025 mg tablet 2022-08 00:00: 00 Yes [id number] 1{tbl} Take 1 tablet by mouth every 6 (six) hours as needed (Diarrhea refractory to loperamide ). [facility] proCHLORper azine 10 mg tablet 2022-08 00:00: 00 Yes [id number] 10mg Take 1 tablet by mouth every 6 (six) hours as needed for Nausea and Vomiting (N/V). [facility] loperamide 2 mg capsule 2022-08 00:00: 00 Yes [id number] 4mg Take 2 capsules by mouth every 4 (four) hours as needed for Diarrhea. Take 2 capsules (4 mg) after the first loose stool, then 1 capsule (2 mg) every 4 hours as needed for diarrhea. Maximum 8 capsules per day. [facility] diphenoxyla te-atropine 2.5-0.025 mg tablet 2022-08 00:00: 00 Yes [id number] 1{tbl} Take 1 tablet by mouth every 6 (six) hours as needed (Diarrhea refractory to loperamide ). [facility] ROSUVASTATI N 40 mg tablet 2022-08 00:00: 00 Yes [id number] 40mg TAKE 1 TABLET BY MOUTH AT BEDTIME [facility] proCHLORper azine 10 mg tablet 2022-08 00:00: 00 Yes [id number] 10mg Take 1 tablet by mouth every 6 (six) hours as needed for Nausea and Vomiting (N/V). [facility] loperamide 2 mg capsule 2022-08 00:00: 00 Yes [id number] 4mg Take 2 capsules by mouth every 4 (four) hours as needed for Diarrhea. Take 2 capsules (4 mg) after the first loose stool, then 1 capsule (2 mg) every 4 hours as needed for diarrhea. Maximum 8 capsules per day. [facility] diphenoxyla te-atropine 2.5-0.025 mg tablet 2022-08 00:00: 00 Yes [id number] 1{tbl} Take 1 tablet by mouth every 6 (six) hours as needed (Diarrhea refractory to loperamide ). [facility] ROSUVASTATI N 40 mg tablet 2022-08 00:00: 00 Yes [id number] 40mg TAKE 1 TABLET BY MOUTH AT BEDTIME [facility] proCHLORper azine 10 mg tablet 2022-08 00:00: 00 Yes [id number] 10mg Take 1 tablet by mouth every 6 (six) hours as needed for Nausea and Vomiting (N/V). [facility] loperamide 2 mg capsule 2022-08 00:00: 00 Yes [id number] 4mg Take 2 capsules by mouth every 4 (four) hours as needed for Diarrhea. Take 2 capsules (4 mg) after the first loose stool, then 1 capsule (2 mg) every 4 hours as needed for diarrhea. Maximum 8 capsules per day. [facility] diphenoxyla te-atropine 2.5-0.025 mg tablet 2022-08 00:00: 00 Yes [id number] 1{tbl} Take 1 tablet by mouth every 6 (six) hours as needed (Diarrhea refractory to loperamide ). [facility] ROSUVASTATI N 40 mg tablet 2022-08 00:00: 00 Yes [id number] 40mg TAKE 1 TABLET BY MOUTH AT BEDTIME [facility] proCHLORper azine 10 mg tablet 2022-08 00:00: 00 Yes [id number] 10mg Take 1 tablet by mouth every 6 (six) hours as needed for Nausea and Vomiting (N/V). [facility] loperamide 2 mg capsule 2022-08 00:00: 00 Yes [id number] 4mg Take 2 capsules by mouth every 4 (four) hours as needed for Diarrhea. Take 2 capsules (4 mg) after the first loose stool, then 1 capsule (2 mg) every 4 hours as needed for diarrhea. Maximum 8 capsules per day. [facility] diphenoxyla te-atropine 2.5-0.025 mg tablet 2022-08 00:00: 00 Yes [id number] 1{tbl} Take 1 tablet by mouth every 6 (six) hours as needed (Diarrhea refractory to loperamide ). [facility] ROSUVASTATI N 40 mg tablet 2022-08 00:00: 00 Yes [id number] 40mg TAKE 1 TABLET BY MOUTH AT BEDTIME [facility] loperamide 2 mg capsule 2022-08 00:00: 00 Yes [id number] 4mg Take 2 capsules by mouth every 4 (four) hours as needed for Diarrhea. Take 2 capsules (4 mg) after the first loose stool, then 1 capsule (2 mg) every 4 hours as needed for diarrhea. Maximum 8 capsules per day. [facility] ROSUVASTATI N 40 mg tablet 2022-08 00:00: 00 Yes [id number] 40mg TAKE 1 TABLET BY MOUTH AT BEDTIME [facility] loperamide 2 mg capsule 2022-08 00:00: 00 Yes [id number] 4mg Take 2 capsules by mouth every 4 (four) hours as needed for Diarrhea. Take 2 capsules (4 mg) after the first loose stool, then 1 capsule (2 mg) every 4 hours as needed for diarrhea. Maximum 8 capsules per day. [facility] ROSUVASTATI N 40 mg tablet 2022-08 00:00: 00 Yes [id number] 40mg TAKE 1 TABLET BY MOUTH AT BEDTIME [facility] loperamide 2 mg capsule 2022-08 00:00: 00 Yes [id number] 4mg Take 2 capsules by mouth every 4 (four) hours as needed for Diarrhea. Take 2 capsules (4 mg) after the first loose stool, then 1 capsule (2 mg) every 4 hours as needed for diarrhea. Maximum 8 capsules per day. [facility] ROSUVASTATI N 40 mg tablet 2022-08 00:00: 00 Yes [id number] 40mg TAKE 1 TABLET BY MOUTH AT BEDTIME [facility] loperamide 2 mg capsule 2022-08 00:00: 00 Yes [id number] 4mg Take 2 capsules by mouth every 4 (four) hours as needed for Diarrhea. Take 2 capsules (4 mg) after the first loose stool, then 1 capsule (2 mg) every 4 hours as needed for diarrhea. Maximum 8 capsules per day. [facility] ROSUVASTATI N 40 mg tablet 2022-08 00:00: 00 Yes [id number] 40mg TAKE 1 TABLET BY MOUTH AT BEDTIME [facility] loperamide 2 mg capsule 2022-08 00:00: 00 Yes [id number] 4mg Take 2 capsules by mouth every 4 (four) hours as needed for Diarrhea. Take 2 capsules (4 mg) after the first loose stool, then 1 capsule (2 mg) every 4 hours as needed for diarrhea. Maximum 8 capsules per day. [facility] ROSUVASTATI N 40 mg tablet 2022-08 00:00: 00 Yes [id number] 40mg TAKE 1 TABLET BY MOUTH AT BEDTIME [facility] loperamide 2 mg capsule 2022-08 00:00: 00 Yes [id number] 4mg Take 2 capsules by mouth every 4 (four) hours as needed for Diarrhea. Take 2 capsules (4 mg) after the first loose stool, then 1 capsule (2 mg) every 4 hours as needed for diarrhea. Maximum 8 capsules per day. [facility] ROSUVASTATI N 40 mg tablet 2022-08 00:00: 00 Yes [id number] 40mg TAKE 1 TABLET BY MOUTH AT BEDTIME [facility] loperamide 2 mg capsule 2022-08 00:00: 00 Yes [id number] 4mg Take 2 capsules by mouth every 4 (four) hours as needed for Diarrhea. Take 2 capsules (4 mg) after the first loose stool, then 1 capsule (2 mg) every 4 hours as needed for diarrhea. Maximum 8 capsules per day. [facility] ROSUVASTATI N 40 mg tablet 2022-08 00:00: 00 Yes [id number] 40mg TAKE 1 TABLET BY MOUTH AT BEDTIME [facility] loperamide 2 mg capsule 2022-08 00:00: 00 Yes [id number] 4mg Take 2 capsules by mouth every 4 (four) hours as needed for Diarrhea. Take 2 capsules (4 mg) after the first loose stool, then 1 capsule (2 mg) every 4 hours as needed for diarrhea. Maximum 8 capsules per day. [facility] ROSUVASTATI N 40 mg tablet 2022-08 00:00: 00 Yes [id number] 40mg TAKE 1 TABLET BY MOUTH AT BEDTIME [facility] loperamide 2 mg capsule 2022-08 00:00: 00 Yes [id number] 4mg Take 2 capsules by mouth every 4 (four) hours as needed for Diarrhea. Take 2 capsules (4 mg) after the first loose stool, then 1 capsule (2 mg) every 4 hours as needed for diarrhea. Maximum 8 capsules per day. [facility] ROSUVASTATI N 40 mg tablet 2022-08 00:00: 00 Yes [id number] 40mg TAKE 1 TABLET BY MOUTH AT BEDTIME [facility] loperamide 2 mg capsule 2022-08 00:00: 00 Yes [id number] 4mg Take 2 capsules by mouth every 4 (four) hours as needed for Diarrhea. Take 2 capsules (4 mg) after the first loose stool, then 1 capsule (2 mg) every 4 hours as needed for diarrhea. Maximum 8 capsules per day. [facility] ROSUVASTATI N 40 mg tablet 2022-08 00:00: 00 Yes [id number] 40mg TAKE 1 TABLET BY MOUTH AT BEDTIME [facility] loperamide 2 mg capsule 2022-08 00:00: 00 Yes [id number] 4mg Take 2 capsules by mouth every 4 (four) hours as needed for Diarrhea. Take 2 capsules (4 mg) after the first loose stool, then 1 capsule (2 mg) every 4 hours as needed for diarrhea. Maximum 8 capsules per day. [facility] ROSUVASTATI N 40 mg tablet 2022-08 00:00: 00 Yes [id number] 40mg TAKE 1 TABLET BY MOUTH AT BEDTIME [facility] loperamide 2 mg capsule 2022-08 00:00: 00 Yes [id number] 4mg Take 2 capsules by mouth every 4 (four) hours as needed for Diarrhea. Take 2 capsules (4 mg) after the first loose stool, then 1 capsule (2 mg) every 4 hours as needed for diarrhea. Maximum 8 capsules per day. [facility] ROSUVASTATI N 40 mg tablet 2022-08 00:00: 00 Yes [id number] 40mg TAKE 1 TABLET BY MOUTH AT BEDTIME [facility] loperamide 2 mg capsule 2022-08 00:00: 00 Yes [id number] 4mg Take 2 capsules by mouth every 4 (four) hours as needed for Diarrhea. Take 2 capsules (4 mg) after the first loose stool, then 1 capsule (2 mg) every 4 hours as needed for diarrhea. Maximum 8 capsules per day. [facility] ROSUVASTATI N 40 mg tablet 2022-08 00:00: 00 Yes [id number] 40mg TAKE 1 TABLET BY MOUTH AT BEDTIME [facility] loperamide 2 mg capsule 2022-08 00:00: 00 Yes [id number] 4mg Take 2 capsules by mouth every 4 (four) hours as needed for Diarrhea. Take 2 capsules (4 mg) after the first loose stool, then 1 capsule (2 mg) every 4 hours as needed for diarrhea. Maximum 8 capsules per day. [facility] ROSUVASTATI N 40 mg tablet 2022-08 00:00: 00 Yes [id number] 40mg TAKE 1 TABLET BY MOUTH AT BEDTIME [facility] loperamide 2 mg capsule 2022-08 00:00: 00 Yes [id number] 4mg Take 2 capsules by mouth every 4 (four) hours as needed for Diarrhea. Take 2 capsules (4 mg) after the first loose stool, then 1 capsule (2 mg) every 4 hours as needed for diarrhea. Maximum 8 capsules per day. [facility] ROSUVASTATI N 40 mg tablet 2022-08 00:00: 00 Yes [id number] 40mg TAKE 1 TABLET BY MOUTH AT BEDTIME [facility] loperamide 2 mg capsule 2022-08 00:00: 00 Yes [id number] 4mg Take 2 capsules by mouth every 4 (four) hours as needed for Diarrhea. Take 2 capsules (4 mg) after the first loose stool, then 1 capsule (2 mg) every 4 hours as needed for diarrhea. Maximum 8 capsules per day. [facility] ROSUVASTATI N 40 mg tablet 2022-08 00:00: 00 Yes [id number] 40mg TAKE 1 TABLET BY MOUTH AT BEDTIME [facility] loperamide 2 mg capsule 2022-08 00:00: 00 Yes [id number] 4mg Take 2 capsules by mouth every 4 (four) hours as needed for Diarrhea. Take 2 capsules (4 mg) after the first loose stool, then 1 capsule (2 mg) every 4 hours as needed for diarrhea. Maximum 8 capsules per day. [facility] ROSUVASTATI N 40 mg tablet 2022-08 00:00: 00 Yes [id number] 40mg TAKE 1 TABLET BY MOUTH AT BEDTIME [facility] loperamide 2 mg capsule 2022-08 00:00: 00 Yes [id number] 4mg Take 2 capsules by mouth every 4 (four) hours as needed for Diarrhea. Take 2 capsules (4 mg) after the first loose stool, then 1 capsule (2 mg) every 4 hours as needed for diarrhea. Maximum 8 capsules per day. [facility] ROSUVASTATI N 40 mg tablet 2022-08 00:00: 00 Yes [id number] 40mg TAKE 1 TABLET BY MOUTH AT BEDTIME [facility] loperamide 2 mg capsule 2022-08 00:00: 00 Yes [id number] 4mg Take 2 capsules by mouth every 4 (four) hours as needed for Diarrhea. Take 2 capsules (4 mg) after the first loose stool, then 1 capsule (2 mg) every 4 hours as needed for diarrhea. Maximum 8 capsules per day. [facility] ROSUVASTATI N 40 mg tablet 2022-08 00:00: 00 Yes [id number] 40mg TAKE 1 TABLET BY MOUTH AT BEDTIME [facility] loperamide 2 mg capsule 2022-08 00:00: 00 Yes [id number] 4mg Take 2 capsules by mouth every 4 (four) hours as needed for Diarrhea. Take 2 capsules (4 mg) after the first loose stool, then 1 capsule (2 mg) every 4 hours as needed for diarrhea. Maximum 8 capsules per day. [facility] ROSUVASTATI N 40 mg tablet 2022-08 00:00: 00 Yes [id number] 40mg TAKE 1 TABLET BY MOUTH AT BEDTIME [facility] loperamide 2 mg capsule 2022-08 00:00: 00 Yes [id number] 4mg Take 2 capsules by mouth every 4 (four) hours as needed for Diarrhea. Take 2 capsules (4 mg) after the first loose stool, then 1 capsule (2 mg) every 4 hours as needed for diarrhea. Maximum 8 capsules per day. [facility] ROSUVASTATI N 40 mg tablet 2022-08 00:00: 00 Yes [id number] 40mg TAKE 1 TABLET BY MOUTH AT BEDTIME [facility] loperamide 2 mg capsule 2022-08 00:00: 00 Yes [id number] 4mg Take 2 capsules by mouth every 4 (four) hours as needed for Diarrhea. Take 2 capsules (4 mg) after the first loose stool, then 1 capsule (2 mg) every 4 hours as needed for diarrhea. Maximum 8 capsules per day. [facility] ROSUVASTATI N 40 mg tablet 2022-08 00:00: 00 Yes [id number] 40mg TAKE 1 TABLET BY MOUTH AT BEDTIME [facility] loperamide 2 mg capsule 2022-08 00:00: 00 Yes [id number] 4mg Take 2 capsules by mouth every 4 (four) hours as needed for Diarrhea. Take 2 capsules (4 mg) after the first loose stool, then 1 capsule (2 mg) every 4 hours as needed for diarrhea. Maximum 8 capsules per day. [facility] ROSUVASTATI N 40 mg tablet 2022-08 00:00: 00 Yes [id number] 40mg TAKE 1 TABLET BY MOUTH AT BEDTIME [facility] loperamide 2 mg capsule 2022-08 00:00: 00 Yes [id number] 4mg Take 2 capsules by mouth every 4 (four) hours as needed for Diarrhea. Take 2 capsules (4 mg) after the first loose stool, then 1 capsule (2 mg) every 4 hours as needed for diarrhea. Maximum 8 capsules per day. [facility] ROSUVASTATI N 40 mg tablet 2022-08 00:00: 00 Yes [id number] 40mg TAKE 1 TABLET BY MOUTH AT BEDTIME [facility] loperamide 2 mg capsule 2022-08 00:00: 00 Yes [id number] 4mg Take 2 capsules by mouth every 4 (four) hours as needed for Diarrhea. Take 2 capsules (4 mg) after the first loose stool, then 1 capsule (2 mg) every 4 hours as needed for diarrhea. Maximum 8 capsules per day. [facility] ROSUVASTATI N 40 mg tablet 2022-08 00:00: 00 Yes [id number] 40mg TAKE 1 TABLET BY MOUTH AT BEDTIME [facility] loperamide 2 mg capsule 2022-08 00:00: 00 Yes [id number] 4mg Take 2 capsules by mouth every 4 (four) hours as needed for Diarrhea. Take 2 capsules (4 mg) after the first loose stool, then 1 capsule (2 mg) every 4 hours as needed for diarrhea. Maximum 8 capsules per day. [facility] ROSUVASTATI N 40 mg tablet 2022-08 00:00: 00 Yes [id number] 40mg TAKE 1 TABLET BY MOUTH AT BEDTIME [facility] loperamide 2 mg capsule 2022-08 00:00: 00 Yes [id number] 4mg Take 2 capsules by mouth every 4 (four) hours as needed for Diarrhea. Take 2 capsules (4 mg) after the first loose stool, then 1 capsule (2 mg) every 4 hours as needed for diarrhea. Maximum 8 capsules per day. [facility] ROSUVASTATI N 40 mg tablet 2022-08 00:00: 00 Yes [id number] 40mg TAKE 1 TABLET BY MOUTH AT BEDTIME [facility] loperamide 2 mg capsule 2022-08 00:00: 00 Yes [id number] 4mg Take 2 capsules by mouth every 4 (four) hours as needed for Diarrhea. Take 2 capsules (4 mg) after the first loose stool, then 1 capsule (2 mg) every 4 hours as needed for diarrhea. Maximum 8 capsules per day. [facility] ROSUVASTATI N 40 mg tablet 2022-08 00:00: 00 Yes [id number] 40mg TAKE 1 TABLET BY MOUTH AT BEDTIME [facility] loperamide 2 mg capsule 2022-08 00:00: 00 Yes [id number] 4mg Take 2 capsules by mouth every 4 (four) hours as needed for Diarrhea. Take 2 capsules (4 mg) after the first loose stool, then 1 capsule (2 mg) every 4 hours as needed for diarrhea. Maximum 8 capsules per day. [facility] ROSUVASTATI N 40 mg tablet 2022-08 00:00: 00 Yes [id number] 40mg TAKE 1 TABLET BY MOUTH AT BEDTIME [facility] loperamide 2 mg capsule 2022-08 00:00: 00 Yes [id number] 4mg Take 2 capsules by mouth every 4 (four) hours as needed for Diarrhea. Take 2 capsules (4 mg) after the first loose stool, then 1 capsule (2 mg) every 4 hours as needed for diarrhea. Maximum 8 capsules per day. [facility] ROSUVASTATI N 40 mg tablet 2022-08 00:00: 00 Yes [id number] 40mg TAKE 1 TABLET BY MOUTH AT BEDTIME [facility] loperamide 2 mg capsule 2022-08 00:00: 00 Yes [id number] 4mg Take 2 capsules by mouth every 4 (four) hours as needed for Diarrhea. Take 2 capsules (4 mg) after the first loose stool, then 1 capsule (2 mg) every 4 hours as needed for diarrhea. Maximum 8 capsules per day. [facility] ROSUVASTATI N 40 mg tablet 2022-08 00:00: 00 Yes [id number] 40mg TAKE 1 TABLET BY MOUTH AT BEDTIME [facility] loperamide 2 mg capsule 2022-08 00:00: 00 Yes [id number] 4mg Take 2 capsules by mouth every 4 (four) hours as needed for Diarrhea. Take 2 capsules (4 mg) after the first loose stool, then 1 capsule (2 mg) every 4 hours as needed for diarrhea. Maximum 8 capsules per day. [facility] ROSUVASTATI N 40 mg tablet 2022-08 00:00: 00 Yes [id number] 40mg TAKE 1 TABLET BY MOUTH AT BEDTIME [facility] loperamide 2 mg capsule 2022-08 00:00: 00 Yes [id number] 4mg Take 2 capsules by mouth every 4 (four) hours as needed for Diarrhea. Take 2 capsules (4 mg) after the first loose stool, then 1 capsule (2 mg) every 4 hours as needed for diarrhea. Maximum 8 capsules per day. [facility] ROSUVASTATI N 40 mg tablet 2022-08 00:00: 00 Yes [id number] 40mg TAKE 1 TABLET BY MOUTH AT BEDTIME [facility] loperamide 2 mg capsule 2022-08 00:00: 00 Yes [id number] 4mg Take 2 capsules by mouth every 4 (four) hours as needed for Diarrhea. Take 2 capsules (4 mg) after the first loose stool, then 1 capsule (2 mg) every 4 hours as needed for diarrhea. Maximum 8 capsules per day. [facility] ROSUVASTATI N 40 mg tablet 2022-08 00:00: 00 Yes [id number] 40mg TAKE 1 TABLET BY MOUTH AT BEDTIME [facility] loperamide 2 mg capsule 2022-08 00:00: 00 Yes [id number] 4mg Take 2 capsules by mouth every 4 (four) hours as needed for Diarrhea. Take 2 capsules (4 mg) after the first loose stool, then 1 capsule (2 mg) every 4 hours as needed for diarrhea. Maximum 8 capsules per day. [facility] ROSUVASTATI N 40 mg tablet 2022-08 00:00: 00 Yes [id number] 40mg TAKE 1 TABLET BY MOUTH AT BEDTIME [facility] loperamide 2 mg capsule 2022-08 00:00: 00 Yes [id number] 4mg Take 2 capsules by mouth every 4 (four) hours as needed for Diarrhea. Take 2 capsules (4 mg) after the first loose stool, then 1 capsule (2 mg) every 4 hours as needed for diarrhea. Maximum 8 capsules per day. [facility] ROSUVASTATI N 40 mg tablet 2022-08 00:00: 00 Yes [id number] 40mg TAKE 1 TABLET BY MOUTH AT BEDTIME [facility] loperamide 2 mg capsule 2022-08 00:00: 00 Yes [id number] 4mg Take 2 capsules by mouth every 4 (four) hours as needed for Diarrhea. Take 2 capsules (4 mg) after the first loose stool, then 1 capsule (2 mg) every 4 hours as needed for diarrhea. Maximum 8 capsules per day. [facility] ROSUVASTATI N 40 mg tablet 2022-08 00:00: 00 Yes [id number] 40mg TAKE 1 TABLET BY MOUTH AT BEDTIME [facility] loperamide 2 mg capsule 2022-08 00:00: 00 Yes [id number] 4mg Take 2 capsules by mouth every 4 (four) hours as needed for Diarrhea. Take 2 capsules (4 mg) after the first loose stool, then 1 capsule (2 mg) every 4 hours as needed for diarrhea. Maximum 8 capsules per day. [facility] ROSUVASTATI N 40 mg tablet 2022-08 00:00: 00 Yes [id number] 40mg TAKE 1 TABLET BY MOUTH AT BEDTIME [facility] loperamide 2 mg capsule 2022-08 00:00: 00 Yes [id number] 4mg Take 2 capsules by mouth every 4 (four) hours as needed for Diarrhea. Take 2 capsules (4 mg) after the first loose stool, then 1 capsule (2 mg) every 4 hours as needed for diarrhea. Maximum 8 capsules per day. [facility] ROSUVASTATI N 40 mg tablet 2022-08 00:00: 00 Yes [id number] 40mg TAKE 1 TABLET BY MOUTH AT BEDTIME [facility] loperamide 2 mg capsule 2022-08 00:00: 00 Yes [id number] 4mg Take 2 capsules by mouth every 4 (four) hours as needed for Diarrhea. Take 2 capsules (4 mg) after the first loose stool, then 1 capsule (2 mg) every 4 hours as needed for diarrhea. Maximum 8 capsules per day. [facility] ROSUVASTATI N 40 mg tablet 2022-08 00:00: 00 Yes [id number] 40mg TAKE 1 TABLET BY MOUTH AT BEDTIME [facility] loperamide 2 mg capsule 2022-08 00:00: 00 Yes [id number] 4mg Take 2 capsules by mouth every 4 (four) hours as needed for Diarrhea. Take 2 capsules (4 mg) after the first loose stool, then 1 capsule (2 mg) every 4 hours as needed for diarrhea. Maximum 8 capsules per day. [facility] ROSUVASTATI N 40 mg tablet 2022-08 00:00: 00 Yes [id number] 40mg TAKE 1 TABLET BY MOUTH AT BEDTIME [facility] loperamide 2 mg capsule 2022-08 00:00: 00 Yes [id number] 4mg Take 2 capsules by mouth every 4 (four) hours as needed for Diarrhea. Take 2 capsules (4 mg) after the first loose stool, then 1 capsule (2 mg) every 4 hours as needed for diarrhea. Maximum 8 capsules per day. [facility] ROSUVASTATI N 40 mg tablet 2022-08 00:00: 00 Yes [id number] 40mg TAKE 1 TABLET BY MOUTH AT BEDTIME [facility] loperamide 2 mg capsule 2022-08 00:00: 00 Yes [id number] 4mg Take 2 capsules by mouth every 4 (four) hours as needed for Diarrhea. Take 2 capsules (4 mg) after the first loose stool, then 1 capsule (2 mg) every 4 hours as needed for diarrhea. Maximum 8 capsules per day. [facility] ROSUVASTATI N 40 mg tablet 2022-08 00:00: 00 Yes [id number] 40mg TAKE 1 TABLET BY MOUTH AT BEDTIME [facility] loperamide 2 mg capsule 2022-08 00:00: 00 Yes [id number] 4mg Take 2 capsules by mouth every 4 (four) hours as needed for Diarrhea. Take 2 capsules (4 mg) after the first loose stool, then 1 capsule (2 mg) every 4 hours as needed for diarrhea. Maximum 8 capsules per day. [facility] ROSUVASTATI N 40 mg tablet 2022-08 00:00: 00 Yes [id number] 40mg TAKE 1 TABLET BY MOUTH AT BEDTIME [facility] loperamide 2 mg capsule 2022-08 00:00: 00 Yes [id number] 4mg Take 2 capsules by mouth every 4 (four) hours as needed for Diarrhea. Take 2 capsules (4 mg) after the first loose stool, then 1 capsule (2 mg) every 4 hours as needed for diarrhea. Maximum 8 capsules per day. [facility] ROSUVASTATI N 40 mg tablet 2022-08 00:00: 00 Yes [id number] 40mg TAKE 1 TABLET BY MOUTH AT BEDTIME [facility] loperamide 2 mg capsule 2022-08 00:00: 00 Yes [id number] 4mg Take 2 capsules by mouth every 4 (four) hours as needed for Diarrhea. Take 2 capsules (4 mg) after the first loose stool, then 1 capsule (2 mg) every 4 hours as needed for diarrhea. Maximum 8 capsules per day. [facility] ROSUVASTATI N 40 mg tablet 2022-08 00:00: 00 Yes [id number] 40mg TAKE 1 TABLET BY MOUTH AT BEDTIME [facility] loperamide 2 mg capsule 2022-08 00:00: 00 Yes [id number] 4mg Take 2 capsules by mouth every 4 (four) hours as needed for Diarrhea. Take 2 capsules (4 mg) after the first loose stool, then 1 capsule (2 mg) every 4 hours as needed for diarrhea. Maximum 8 capsules per day. [facility] ROSUVASTATI N 40 mg tablet 2022-08 00:00: 00 Yes [id number] 40mg TAKE 1 TABLET BY MOUTH AT BEDTIME [facility] loperamide 2 mg capsule 2022-08 00:00: 00 Yes [id number] 4mg Take 2 capsules by mouth every 4 (four) hours as needed for Diarrhea. Take 2 capsules (4 mg) after the first loose stool, then 1 capsule (2 mg) every 4 hours as needed for diarrhea. Maximum 8 capsules per day. [facility] ROSUVASTATI N 40 mg tablet 2022-08 00:00: 00 Yes [id number] 40mg TAKE 1 TABLET BY MOUTH AT BEDTIME [facility] loperamide 2 mg capsule 2022-08 00:00: 00 Yes [id number] 4mg Take 2 capsules by mouth every 4 (four) hours as needed for Diarrhea. Take 2 capsules (4 mg) after the first loose stool, then 1 capsule (2 mg) every 4 hours as needed for diarrhea. Maximum 8 capsules per day. [facility] ROSUVASTATI N 40 mg tablet 2022-08 00:00: 00 Yes [id number] 40mg TAKE 1 TABLET BY MOUTH AT BEDTIME [facility] loperamide 2 mg capsule 2022-08 00:00: 00 Yes [id number] 4mg Take 2 capsules by mouth every 4 (four) hours as needed for Diarrhea. Take 2 capsules (4 mg) after the first loose stool, then 1 capsule (2 mg) every 4 hours as needed for diarrhea. Maximum 8 capsules per day. [facility] ROSUVASTATI N 40 mg tablet 2022-08 00:00: 00 Yes [id number] 40mg TAKE 1 TABLET BY MOUTH AT BEDTIME [facility] loperamide 2 mg capsule 2022-08 00:00: 00 Yes [id number] 4mg Take 2 capsules by mouth every 4 (four) hours as needed for Diarrhea. Take 2 capsules (4 mg) after the first loose stool, then 1 capsule (2 mg) every 4 hours as needed for diarrhea. Maximum 8 capsules per day. [facility] ROSUVASTATI N 40 mg tablet 2022-08 00:00: 00 Yes [id number] 40mg TAKE 1 TABLET BY MOUTH AT BEDTIME [facility] loperamide 2 mg capsule 2022-08 00:00: 00 Yes [id number] 4mg Take 2 capsules by mouth every 4 (four) hours as needed for Diarrhea. Take 2 capsules (4 mg) after the first loose stool, then 1 capsule (2 mg) every 4 hours as needed for diarrhea. Maximum 8 capsules per day. [facility] ROSUVASTATI N 40 mg tablet 2022-08 00:00: 00 Yes [id number] 40mg TAKE 1 TABLET BY MOUTH AT BEDTIME [facility] loperamide 2 mg capsule 2022-08 00:00: 00 Yes [id number] 4mg Take 2 capsules by mouth every 4 (four) hours as needed for Diarrhea. Take 2 capsules (4 mg) after the first loose stool, then 1 capsule (2 mg) every 4 hours as needed for diarrhea. Maximum 8 capsules per day. [facility] ROSUVASTATI N 40 mg tablet 2022-08 00:00: 00 Yes [id number] 40mg TAKE 1 TABLET BY MOUTH AT BEDTIME [facility] loperamide 2 mg capsule 2022-08 00:00: 00 Yes [id number] 4mg Take 2 capsules by mouth every 4 (four) hours as needed for Diarrhea. Take 2 capsules (4 mg) after the first loose stool, then 1 capsule (2 mg) every 4 hours as needed for diarrhea. Maximum 8 capsules per day. [facility] ROSUVASTATI N 40 mg tablet 2022-08 00:00: 00 Yes [id number] 40mg TAKE 1 TABLET BY MOUTH AT BEDTIME [facility] loperamide 2 mg capsule 2022-08 00:00: 00 Yes [id number] 4mg Take 2 capsules by mouth every 4 (four) hours as needed for Diarrhea. Take 2 capsules (4 mg) after the first loose stool, then 1 capsule (2 mg) every 4 hours as needed for diarrhea. Maximum 8 capsules per day. [facility] ROSUVASTATI N 40 mg tablet 2022-08 00:00: 00 Yes [id number] 40mg TAKE 1 TABLET BY MOUTH AT BEDTIME [facility] loperamide 2 mg capsule 2022-08 00:00: 00 Yes [id number] 4mg Take 2 capsules by mouth every 4 (four) hours as needed for Diarrhea. Take 2 capsules (4 mg) after the first loose stool, then 1 capsule (2 mg) every 4 hours as needed for diarrhea. Maximum 8 capsules per day. [facility] ROSUVASTATI N 40 mg tablet 2022-08 00:00: 00 Yes [id number] 40mg TAKE 1 TABLET BY MOUTH AT BEDTIME [facility] loperamide 2 mg capsule 2022-08 00:00: 00 Yes [id number] 4mg Take 2 capsules by mouth every 4 (four) hours as needed for Diarrhea. Take 2 capsules (4 mg) after the first loose stool, then 1 capsule (2 mg) every 4 hours as needed for diarrhea. Maximum 8 capsules per day. [facility] ROSUVASTATI N 40 mg tablet 2022-08 00:00: 00 Yes [id number] 40mg TAKE 1 TABLET BY MOUTH AT BEDTIME [facility] loperamide 2 mg capsule 2022-08 00:00: 00 Yes [id number] 4mg Take 2 capsules by mouth every 4 (four) hours as needed for Diarrhea. Take 2 capsules (4 mg) after the first loose stool, then 1 capsule (2 mg) every 4 hours as needed for diarrhea. Maximum 8 capsules per day. [facility] ROSUVASTATI N 40 mg tablet 2022-08 00:00: 00 Yes [id number] 40mg TAKE 1 TABLET BY MOUTH AT BEDTIME [facility] loperamide 2 mg capsule 2022-08 00:00: 00 Yes [id number] 4mg Take 2 capsules by mouth every 4 (four) hours as needed for Diarrhea. Take 2 capsules (4 mg) after the first loose stool, then 1 capsule (2 mg) every 4 hours as needed for diarrhea. Maximum 8 capsules per day. [facility] ROSUVASTATI N 40 mg tablet 2022-08 00:00: 00 Yes [id number] 40mg TAKE 1 TABLET BY MOUTH AT BEDTIME [facility] loperamide 2 mg capsule 2022-08 00:00: 00 Yes [id number] 4mg Take 2 capsules by mouth every 4 (four) hours as needed for Diarrhea. Take 2 capsules (4 mg) after the first loose stool, then 1 capsule (2 mg) every 4 hours as needed for diarrhea. Maximum 8 capsules per day. [facility] ROSUVASTATI N 40 mg tablet 2022-08 00:00: 00 Yes [id number] 40mg TAKE 1 TABLET BY MOUTH AT BEDTIME [facility] loperamide 2 mg capsule 2022-08 00:00: 00 Yes [id number] 4mg Take 2 capsules by mouth every 4 (four) hours as needed for Diarrhea. Take 2 capsules (4 mg) after the first loose stool, then 1 capsule (2 mg) every 4 hours as needed for diarrhea. Maximum 8 capsules per day. [facility] ROSUVASTATI N 40 mg tablet 2022-08 00:00: 00 Yes [id number] 40mg TAKE 1 TABLET BY MOUTH AT BEDTIME [facility] loperamide 2 mg capsule 2022-08 00:00: 00 Yes [id number] 4mg Take 2 capsules by mouth every 4 (four) hours as needed for Diarrhea. Take 2 capsules (4 mg) after the first loose stool, then 1 capsule (2 mg) every 4 hours as needed for diarrhea. Maximum 8 capsules per day. [facility] ROSUVASTATI N 40 mg tablet 2022-08 00:00: 00 Yes [id number] 40mg TAKE 1 TABLET BY MOUTH AT BEDTIME [facility] loperamide 2 mg capsule 2022-08 00:00: 00 Yes [id number] 4mg Take 2 capsules by mouth every 4 (four) hours as needed for Diarrhea. Take 2 capsules (4 mg) after the first loose stool, then 1 capsule (2 mg) every 4 hours as needed for diarrhea. Maximum 8 capsules per day. [facility] ROSUVASTATI N 40 mg tablet 2022-08 00:00: 00 Yes [id number] 40mg TAKE 1 TABLET BY MOUTH AT BEDTIME [facility] loperamide 2 mg capsule 2022-08 00:00: 00 Yes [id number] 4mg Take 2 capsules by mouth every 4 (four) hours as needed for Diarrhea. Take 2 capsules (4 mg) after the first loose stool, then 1 capsule (2 mg) every 4 hours as needed for diarrhea. Maximum 8 capsules per day. [facility] ROSUVASTATI N 40 mg tablet 2022-08 00:00: 00 Yes [id number] 40mg TAKE 1 TABLET BY MOUTH AT BEDTIME [facility] loperamide 2 mg capsule 2022-08 00:00: 00 Yes [id number] 4mg Take 2 capsules by mouth every 4 (four) hours as needed for Diarrhea. Take 2 capsules (4 mg) after the first loose stool, then 1 capsule (2 mg) every 4 hours as needed for diarrhea. Maximum 8 capsules per day. [facility] ROSUVASTATI N 40 mg tablet 2022-08 00:00: 00 Yes [id number] 40mg TAKE 1 TABLET BY MOUTH AT BEDTIME [facility] loperamide 2 mg capsule 2022-08 00:00: 00 Yes [id number] 4mg Take 2 capsules by mouth every 4 (four) hours as needed for Diarrhea. Take 2 capsules (4 mg) after the first loose stool, then 1 capsule (2 mg) every 4 hours as needed for diarrhea. Maximum 8 capsules per day. [facility] ROSUVASTATI N 40 mg tablet 2022-08 00:00: 00 Yes [id number] 40mg TAKE 1 TABLET BY MOUTH AT BEDTIME [facility] loperamide 2 mg capsule 2022-08 00:00: 00 Yes [id number] 4mg Take 2 capsules by mouth every 4 (four) hours as needed for Diarrhea. Take 2 capsules (4 mg) after the first loose stool, then 1 capsule (2 mg) every 4 hours as needed for diarrhea. Maximum 8 capsules per day. [facility] proCHLORper azine 10 mg tablet 2022-08 00:00: 00 05-21 00:00 :00 No [id number] 10mg Take 1 tablet by mouth every 6 (six) hours as needed for Nausea and Vomiting (N/V). [facility] diphenoxyla te-atropine 2.5-0.025 mg tablet 2022-08 00:00: 00 05-21 00:00 :00 No [id number] 1{tbl} Take 1 tablet by mouth every 6 (six) hours as needed (Diarrhea refractory to loperamide ). [facility] capecitabin e 500 mg tablet 2022-08 011 00:00: 00 05-19 00:00 :00 No [id number] 1000mg Take 2 tablets by mouth 2 (two) times daily. Take 2 tablets in the morning and 2 tablets in the evening for 14 days. Then 7 days off . Take within 30 minutes of finishing a meal. [facility] capecitabin e 500 mg tablet 2022-08 011 00:00: 00 05-19 00:00 :00 No [id number] 1000mg Take 2 tablets by mouth 2 (two) times daily. Take 2 tablets in the morning and 2 tablets in the evening for 14 days. Then 7 days off . Take within 30 minutes of finishing a meal. [facility] methylpheni date HCl 5 mg tablet 2022-0 04-29 00:00: 00 Yes [id number] 5mg Take 1 tablet by mouth every morning. [facility] methylpheni date HCl 5 mg tablet 0 04-29 00:00: 00 Yes [id number] 5mg Take 1 tablet by mouth every morning. [facility] methylpheni date HCl 5 mg tablet 2022-0 04-29 00:00: 00 Yes [id number] 5mg Take 1 tablet by mouth every morning. [facility] methylpheni date HCl 5 mg tablet 2022-0 04-29 00:00: 00 Yes [id number] 5mg Take 1 tablet by mouth every morning. [facility] methylpheni date HCl 5 mg tablet 2022-0 04-29 00:00: 00 Yes [id number] 5mg Take 1 tablet by mouth every morning. [facility] methylpheni date HCl 5 mg tablet 2022-0 04-29 00:00: 00 Yes [id number] 5mg Take 1 tablet by mouth every morning. [facility] methylpheni date HCl 5 mg tablet 2022-0 04-29 00:00: 00 Yes [id number] 5mg Take 1 tablet by mouth every morning. [facility] methylpheni date HCl 5 mg tablet 2022-0 04-29 00:00: 00 Yes [id number] 5mg Take 1 tablet by mouth every morning. [facility] methylpheni date HCl 5 mg tablet 2022-0 04-29 00:00: 00 Yes [id number] 5mg Take 1 tablet by mouth every morning. [facility] methylpheni date HCl 5 mg tablet 0 04-29 00:00: 00 Yes [id number] 5mg Take 1 tablet by mouth every morning. [facility] methylpheni date HCl 5 mg tablet 0 04-29 00:00: 00 Yes [id number] 5mg Take 1 tablet by mouth every morning. [facility] methylpheni date HCl 5 mg tablet 0 04-29 00:00: 00 Yes [id number] 5mg Take 1 tablet by mouth every morning. [facility] methylpheni date HCl 5 mg tablet 0 04-29 00:00: 00 Yes [id number] 5mg Take 1 tablet by mouth every morning. [facility] methylpheni date HCl 5 mg tablet 0 04-29 00:00: 00 Yes [id number] 5mg Take 1 tablet by mouth every morning. [facility] methylpheni date HCl 5 mg tablet 0 04-29 00:00: 00 Yes [id number] 5mg Take 1 tablet by mouth every morning. [facility] methylpheni date HCl 5 mg tablet 0 04-29 00:00: 00 Yes [id number] 5mg Take 1 tablet by mouth every morning. [facility] methylpheni date HCl 5 mg tablet 2022-0 04-29 00:00: 00 Yes [id number] 5mg Take 1 tablet by mouth every morning. [facility] [facility]i date HCl 5 mg tablet 2022-0 04-29 00:00: 00 Yes [id number] 5mg Take 1 tablet by mouth every morning. [facility] methylpheni date HCl 5 mg tablet 2022-0 04-29 00:00: 00 Yes [id number] 5mg Take 1 tablet by mouth every morning. [facility] methylpheni date HCl 5 mg tablet 2022-0 04-29 00:00: 00 Yes [id number] 5mg Take 1 tablet by mouth every morning. [facility] methylpheni date HCl 5 mg tablet 2022-0 04-29 00:00: 00 Yes [id number] 5mg Take 1 tablet by mouth every morning. [facility] methylpheni date HCl 5 mg tablet 2022-0 04-29 00:00: 00 Yes [id number] 5mg Take 1 tablet by mouth every morning. [facility] methylpheni date HCl 5 mg tablet 2022-0 04-29 00:00: 00 Yes [id number] 5mg Take 1 tablet by mouth every morning. [facility] methylpheni date HCl 5 mg tablet 2022-0 04-29 00:00: 00 Yes [id number] 5mg Take 1 tablet by mouth every morning. [facility] methylpheni date HCl 5 mg tablet 2022-0 04-29 00:00: 00 Yes [id number] 5mg Take 1 tablet by mouth every morning. [facility] methylpheni date HCl 5 mg tablet 2022-0 04-29 00:00: 00 Yes [id number] 5mg Take 1 tablet by mouth every morning. [facility] methylpheni date HCl 5 mg tablet 2022-0 04-29 00:00: 00 Yes [id number] 5mg Take 1 tablet by mouth every morning. [facility] methylpheni date HCl 5 mg tablet 2022-0 04-29 00:00: 00 Yes [id number] 5mg Take 1 tablet by mouth every morning. [facility] methylpheni date HCl 5 mg tablet 2022-0 04-29 00:00: 00 Yes [id number] 5mg Take 1 tablet by mouth every morning. [facility] methylpheni date HCl 5 mg tablet 3-0 04-29 00:00: 00 Yes [id number] 5mg Take 1 tablet by mouth every morning. [facility] methylpheni date HCl 5 mg tablet 3-0 04-29 00:00: 00 Yes [id number] 5mg Take 1 tablet by mouth every morning. [facility] methylpheni date HCl 5 mg tablet 2022-0 04-29 00:00: 00 Yes [id number] 5mg Take 1 tablet by mouth every morning. [facility] methylpheni date HCl 5 mg tablet 2022-0 04-29 00:00: 00 Yes [id number] 5mg Take 1 tablet by mouth every morning. [facility] methylpheni date HCl 5 mg tablet 2022-0 04-29 00:00: 00 Yes [id number] 5mg Take 1 tablet by mouth every morning. [facility] methylpheni date HCl 5 mg tablet 2022-0 04-29 00:00: 00 Yes [id number] 5mg Take 1 tablet by mouth every morning. [facility] methylpheni date HCl 5 mg tablet 2022-0 04-29 00:00: 00 Yes [id number] 5mg Take 1 tablet by mouth every morning. [facility] methylpheni date HCl 5 mg tablet 2022-0 04-29 00:00: 00 Yes [id number] 5mg Take 1 tablet by mouth every morning. [facility] methylpheni date HCl 5 mg tablet 2022-0 04-29 00:00: 00 Yes [id number] 5mg Take 1 tablet by mouth every morning. [facility] methylpheni date HCl 5 mg tablet 2022-0 04-29 00:00: 00 Yes [id number] 5mg Take 1 tablet by mouth every morning. [facility] methylpheni date HCl 5 mg tablet 2022-0 04-29 00:00: 00 Yes [id number] 5mg Take 1 tablet by mouth every morning. [facility] methylpheni date HCl 5 mg tablet 2022-0 04-29 00:00: 00 Yes [id number] 5mg Take 1 tablet by mouth every morning. [facility] methylpheni date HCl 5 mg tablet 3-0 04-29 00:00: 00 Yes [id number] 5mg Take 1 tablet by mouth every morning. [facility] methylpheni date HCl 5 mg tablet 2022-0 04-29 00:00: 00 Yes [id number] 5mg Take 1 tablet by mouth every morning. [facility] methylpheni date HCl 5 mg tablet 2022-0 04-29 00:00: 00 Yes [id number] 5mg Take 1 tablet by mouth every morning. [facility] methylpheni date HCl 5 mg tablet 2022-0 04-29 00:00: 00 Yes [id number] 5mg Take 1 tablet by mouth every morning. [facility] methylpheni date HCl 5 mg tablet 3-0 04-29 00:00: 00 Yes [id number] 5mg Take 1 tablet by mouth every morning. [facility] methylpheni date HCl 5 mg tablet 2022-0 04-29 00:00: 00 Yes [id number] 5mg Take 1 tablet by mouth every morning. [facility] methylpheni date HCl 5 mg tablet 2022-0 04-29 00:00: 00 Yes [id number] 5mg Take 1 tablet by mouth every morning. [facility] methylpheni date HCl 5 mg tablet 3-0 04-29 00:00: 00 Yes [id number] 5mg Take 1 tablet by mouth every morning. [facility] methylpheni date HCl 5 mg tablet 2022-0 04-29 00:00: 00 Yes [id number] 5mg Take 1 tablet by mouth every morning. [facility] methylpheni date HCl 5 mg tablet 2022-0 04-29 00:00: 00 Yes [id number] 5mg Take 1 tablet by mouth every morning. [facility] methylpheni date HCl 5 mg tablet 2022-0 04-29 00:00: 00 Yes [id number] 5mg Take 1 tablet by mouth every morning. [facility] methylpheni date HCl 5 mg tablet 3-0 04-29 00:00: 00 Yes [id number] 5mg Take 1 tablet by mouth every morning. [facility] methylpheni date HCl 5 mg tablet 3-0 04-29 00:00: 00 Yes [id number] 5mg Take 1 tablet by mouth every morning. [facility] methylpheni date HCl 5 mg tablet 3-0 04-29 00:00: 00 Yes [id number] 5mg Take 1 tablet by mouth every morning. [facility] methylpheni date HCl 5 mg tablet 2022-0 04-29 00:00: 00 Yes [id number] 5mg Take 1 tablet by mouth every morning. [facility] methylpheni date HCl 5 mg tablet 2022-0 04-29 00:00: 00 Yes [id number] 5mg Take 1 tablet by mouth every morning. [facility] methylpheni date HCl 5 mg tablet 2022-0 04-29 00:00: 00 Yes [id number] 5mg Take 1 tablet by mouth every morning. [facility] methylpheni date HCl 5 mg tablet 2022-0 04-29 00:00: 00 Yes [id number] 5mg Take 1 tablet by mouth every morning. [facility] methylpheni date HCl 5 mg tablet 2022-0 04-29 00:00: 00 Yes [id number] 5mg Take 1 tablet by mouth every morning. [facility] methylpheni date HCl 5 mg tablet 2022-0 04-29 00:00: 00 Yes [id number] 5mg Take 1 tablet by mouth every morning. [facility] methylpheni date HCl 5 mg tablet 2022-0 04-29 00:00: 00 Yes [id number] 5mg Take 1 tablet by mouth every morning. [facility] methylpheni date HCl 5 mg tablet 2022-0 04-29 00:00: 00 Yes [id number] 5mg Take 1 tablet by mouth every morning. [facility] methylpheni date HCl 5 mg tablet 2022-0 04-29 00:00: 00 Yes [id number] 5mg Take 1 tablet by mouth every morning. [facility] methylpheni date HCl 5 mg tablet 2022-0 04-29 00:00: 00 Yes [id number] 5mg Take 1 tablet by mouth every morning. [facility] methylpheni date HCl 5 mg tablet 2022-0 04-29 00:00: 00 Yes [id number] 5mg Take 1 tablet by mouth every morning. [facility] methylpheni date HCl 5 mg tablet 3-0 04-29 00:00: 00 Yes [id number] 5mg Take 1 tablet by mouth every morning. [facility] methylpheni date HCl 5 mg tablet 04-29 00:00: 00 Yes [id number] 5mg Take 1 tablet by mouth every morning. [facility] methylpheni date HCl 5 mg tablet 04-29 00:00: 00 Yes [id number] 5mg Take 1 tablet by mouth every morning. [facility] methylpheni date HCl 5 mg tablet 04-29 00:00: 00 Yes [id number] 5mg Take 1 tablet by mouth every morning. [facility] methylpheni date HCl 5 mg tablet 04-29 00:00: 00 Yes [id number] 5mg Take 1 tablet by mouth every morning. [facility] methylpheni date HCl 5 mg tablet 04-29 00:00: 00 Yes [id number] 5mg Take 1 tablet by mouth every morning. [facility] methylpheni date HCl 5 mg tablet 04-29 00:00: 00 Yes [id number] 5mg Take 1 tablet by mouth every morning. [facility] methylpheni date HCl 5 mg tablet 04-29 00:00: 00 Yes [id number] 5mg Take 1 tablet by mouth every morning. [facility] methylpheni date HCl 5 mg tablet 04-29 00:00: 00 Yes [id number] 5mg Take 1 tablet by mouth every morning. [facility] methylpheni date HCl 5 mg tablet 04-29 00:00: 00 Yes [id number] 5mg Take 1 tablet by mouth every morning. [facility] methylpheni date HCl 5 mg tablet 04-29 00:00: 00 Yes [id number] 5mg Take 1 tablet by mouth every morning. [facility] methylpheni date HCl 5 mg tablet 04-29 00:00: 00 Yes [id number] 5mg Take 1 tablet by mouth every morning. [facility] bevacizumab -bvzr (ZIRABEV) 500 mg in NaCl 0.9% (NS) 100 mL infusion 04-28 16:00: 00 04-28 17:57 :00 No [id number] 7.5mg/k g 500 mg (rounded from 536.25 mg = 7.5 mg/kg ?71.5 kg Treatment plan Recorded weight), IV Infusion, ONCE, Administer over 30 Minutes, On Wed04/28/23 at 1100, For 1 dose
Sh ould be diluted in 0.9% Sodium Chloride, not D5W. May store diluted solution in refrigerat or for up to 8 hours.&nbs p;Infuse 1st infusion over 90 minutes; 2nd infusion for 60 minutes; subsequent infusions over 30 minutes if well tolerated.
[facility] NaCl 0.9% (NS) IV infusion 1,000 mL 04-28 16:00: 00 04-28 17:03 :00 No [id number] 1000mL at 1,000 mL/hr, IV Infusion, ONCE, 1 dose, On Wed04/28/23 at 1100, Routine [facility] cyanocobala min (DODEX) injection 1,000 mcg 04-28 16:00: 00 04-28 16:05 :00 No [id number] 1000ug 1,000 mcg, Intramuscu lar, ONCE, 1 dose, On Wed04/28/23 at 1100, Routine [facility] iron sucrose (VENOFER) 200 mg in NaCl 0.9% (NS) 100 mL infusion 04-28 16:00: 00 04-28 17:13 :00 No [id number] 200mg 200 mg, IV Infusion, ONCE, Administer over 60 Minutes, On Wed04/28/23 at 1100, For 1 dose [facility] heparin lock flush (HEPARIN LOCKFLUSH(P ORCINE)(PF) ) 100 unit/mL injection 500 Units 04-28 15:52: 58 04-29 15:51 :58 No [id number] 500U 500 Units, IV Push, PRN, Starting on Wed04/28/23 at 1052, Until Mireya 04/29/23 at 1051, Routine [facility] NaCl 0.9% (NS) bolus infusion 1,000 mL 04-20:45: 00 04-20 18:00 :00 No 1000mL at 999 mL/hr, 1,000 mL, IV Piggyback, ONCE, 1 dose, On Wed04/20/23 at 1245, STAT [facility] bevacizumab -bvzr (ZIRABEV) 500 mg in NaCl 0.9% (NS) 100 mL infusion 04-07 14:45: 00 04-07 16:33 :00 No [id number] 7.5mg/k g 500 mg (rounded from 536.25 mg = 7.5 mg/kg ?71.5 kg Treatment plan Recorded weight), IV Infusion, ONCE, Administer over 30 Minutes, On Wed04/07/23 at 0945, For 1 dose
Sh ould be diluted in 0.9% Sodium Chloride, not D5W. May store diluted solution in refrigerat or for up to 8 hours.&nbs p;Infuse 1st infusion over 90 minutes; 2nd infusion for 60 minutes; subsequent infusions over 30 minutes if well tolerated.
[facility] NaCl 0.9% (NS) IV infusion 1,000 mL 04-07 14:45: 00 04-07 15:38 :00 No [id number] 1000mL at 1,000 mL/hr, IV Infusion, ONCE, 1 dose, On Wed04/07/23 at 0945, Routine [facility] cyanocobala min (DODEX) injection 1,000 mcg 04-07 14:45: 00 04-07 14:44 :00 No [id number] 1000ug 1,000 mcg, Intramuscu lar, ONCE, 1 dose, On Wed04/07/23 at 0945, Routine [facility] iron sucrose (VENOFER) 200 mg in NaCl 0.9% (NS) 100 mL infusion 04-07 14:45: 00 04-07 15:52 :00 No [id number] 200mg 200 mg, IV Infusion, ONCE, Administer over 60 Minutes, On Wed04/07/23 at 0945, For 1 dose [facility] heparin lock flush (HEPARIN LOCKFLUSH(P ORCINE)(PF) ) 100 unit/mL injection 500 Units 04-07 14:35: 37 04-08 14:34 :37 No [id number] 500U 500 Units, IV Push, PRN, Starting on Wed04/07/23 at 0935, Until Mireya 04/08/23 at 0934, Routine [facility] capecitabin e 500 mg tablet 04-07 00:00: 00 Yes [id number] 1000mg Take 2 tablets by mouth 2 (two) times daily. Take 2 tablets in the morning and 2 tablets in the evening for 14 days. Then 7 days off . Take within 30 minutes of finishing a meal. [facility] capecitabin e 500 mg tablet 04-07 00:00: 00 Yes [id number] 1000mg Take 2 tablets by mouth every morning and evening for 14 days. Then 7 days off . Take within 30 minutes of finishing a meal. [facility] capecitabin e 500 mg tablet 04-07 00:00: 00 Yes [id number] 1000mg Take 2 tablets by mouth every morning and evening for 14 days. Then 7 days off . Take within 30 minutes of finishing a meal. [facility] capecitabin e 500 mg tablet 04-07 00:00: 00 Yes [id number] 1000mg Take 2 tablets by mouth every morning and evening for 14 days. Then 7 days off . Take within 30 minutes of finishing a meal. [facility] capecitabin e 500 mg tablet 04-07 00:00: 00 Yes [id number] 1000mg Take 2 tablets by mouth every morning and evening for 14 days. Then 7 days off . Take within 30 minutes of finishing a meal. [facility] capecitabin e 500 mg tablet 04-07 00:00: 00 Yes [id number] 1000mg Take 2 tablets by mouth every morning and evening for 14 days. Then 7 days off . Take within 30 minutes of finishing a meal. [facility] capecitabin e 500 mg tablet 04-07 00:00: 00 Yes [id number] 1000mg Take 2 tablets by mouth every morning and evening for 14 days. Then 7 days off . Take within 30 minutes of finishing a meal. [facility] capecitabin e 500 mg tablet 2022-0 830 00:00: 00 Yes [id number] 1000mg Take 2 tablets by mouth every morning and evening for 14 days. Then 7 days off . Take within 30 minutes of finishing a meal. [facility] capecitabin e 500 mg tablet 2022-0 830 00:00: 00 Yes [id number] 1000mg Take 2 tablets by mouth every morning and evening for 14 days. Then 7 days off . Take within 30 minutes of finishing a meal. [facility] capecitabin e 500 mg tablet 2022-0 8 00:00: 00 Yes [id number] 1000mg Take 2 tablets by mouth every morning and evening for 14 days. Then 7 days off . Take within 30 minutes of finishing a meal. [facility] capecitabin e 500 mg tablet 2022-0 8 00:00: 00 Yes [id number] 1000mg Take 2 tablets by mouth every morning and evening for 14 days. Then 7 days off . Take within 30 minutes of finishing a meal. [facility] capecitabin e 500 mg tablet 2022-0 30 00:00: 00 05-19 00:00 :00 No [id number] 1000mg Take 2 tablets by mouth every morning and evening for 14 days. Then 7 days off . Take within 30 minutes of finishing a meal. [facility] capecitabin e 500 mg tablet 2022-0 830 00:00: 00 05-19 00:00 :00 No [id number] 1000mg Take 2 tablets by mouth every morning and evening for 14 days. Then 7 days off . Take within 30 minutes of finishing a meal. [facility] capecitabin e 500 mg tablet 3-0 830 00:00: 00 05-19 00:00 :00 No [id number] 1000mg Take 2 tablets by mouth every morning and evening for 14 days. Then 7 days off . Take within 30 minutes of finishing a meal. [facility] capecitabin e 500 mg tablet 04-07 00:00: 00 05-19 00:00 :00 No [id number] 1000mg Take 2 tablets by mouth every morning and evening for 14 days. Then 7 days off . Take within 30 minutes of finishing a meal. [facility] gabapentin (NEURONTIN) capsule 600 mg 04-02 02:00: 00 Yes 600mg 600 mg, Oral, QHS, First dose on [facility] 04/01/23 at 2100, Until Discontinu ed, Routine [facility] rosuvastati n (CRESTOR) tablet 40 mg 04-02 02:00: 00 Yes 40mg 40 mg, Oral, QHS, First dose on [facility] 04/01/23 at 2100, Until Discontinu ed, Routine [facility] KCL (KLOR-CON M20) tablet 40 mEq 04-02 01:00: 00 04-02 01:07 :00 No 40meq 40 mEq, Oral, ONCE, 1 dose, On Mireya 04/01/23 at 2000, Routine [facility] HYDROcodone -acetaminop hen (NORCO 5) 5-325 mg tablet 1 tablet 04-02 00:12: 55 Yes 1{tbl} 1 tablet, Oral, Q6HPRN, Starting on Mireya 04/01/23 at 191, Until Discontinu ed, Routine, Pain (scale 4-6) [facility] morpHINE (2 mg/mL) injection 2 mg 04-02 00:12: 38 Yes 2mg 2 mg, Slow IV Push, Q4HPRN, Starting on Miryea 04/01/23 at 1911, Until Discontinu ed, Routine, Pain (scale 7-10) [facility] amoxicillin -clavulanat e (AUGMENTIN) 875-125 mg per tablet 04-02 00:00: 00 04-10 04:59 :00 No [id number] 1{tbl} Take 1 tablet by mouth 2 (two) times daily for 7 days. [facility] amoxicillin -clavulanat e (AUGMENTIN) 875-125 mg per tablet 04-02 00:00: 00 04-10 04:59 :00 No [id number] 1{tbl} Take 1 tablet by mouth 2 (two) times daily for 7 days. [facility] amoxicillin -clavulanat e (AUGMENTIN) 875-125 mg per tablet 04-02 00:00: 00 04-10 04:59 :00 No [id number] 1{tbl} Take 1 tablet by mouth 2 (two) times daily for 7 days. [facility] amoxicillin -clavulanat e (AUGMENTIN) 875-125 mg per tablet 04-02 00:00: 00 04-10 04:59 :00 No [id number] 1{tbl} Take 1 tablet by mouth 2 (two) times daily for 7 days. [facility]ox[facility] -clavulanat e (AUGMENTIN) 875-125 mg per tablet 04-02 00:00: 00 04-10 04:59 :00 No [id number] 1{tbl} Take 1 tablet by mouth 2 (two) times daily for 7 days. [facility] amoxicillin -clavulanat e (AUGMENTIN) 875-125 mg per tablet 04-02 00:00: 00 04-10 04:59 :00 No [id number] 1{tbl} Take 1 tablet by mouth 2 (two) times daily for 7 days. [facility] amoxicillin -clavulanat e (AUGMENTIN) 875-125 mg per tablet 04-02 00:00: 00 04-10 04:59 :00 No [id number] 1{tbl} Take 1 tablet by mouth 2 (two) times daily for 7 days. [facility] amoxicillin -clavulanat e (AUGMENTIN) 875-125 mg per tablet 04-02 00:00: 00 04-10 04:59 :00 No [id number] 1{tbl} Take 1 tablet by mouth 2 (two) times daily for 7 days. [facility] amoxicillin -clavulanat e (AUGMENTIN) 875-125 mg per tablet 04-02 00:00: 00 04-10 04:59 :00 No [id number] 1{tbl} Take 1 tablet by mouth 2 (two) times daily for 7 days. [facility] amoxicillin -clavulanat e (AUGMENTIN) 875-125 mg per tablet 04-02 00:00: 00 04-02 00:00 :00 No [id number] 1{tbl} Take 1 tablet by mouth 2 (two) times daily for 7 days. [facility] lactulose (CEPHULAC) solution 30 mL 04-01 20:13: 41 Yes 30mL 30 mL, Oral, TIDPRN, Starting on Wed04/01/23 at 1513, Until Discontinu ed, Routine, Constipati on [facility] lactulose (CEPHULAC) solution 30 mL 04-01 14:15: 00 04-01 14:17 :00 No 30mL 30 mL, Oral, ONCE, 1 dose, On Mireya 04/01/23 at 0915, Routine [facility] finasteride (PROSCAR) tablet 5 mg 04-01 14:00: 00 Yes 5mg 5 mg, Oral, DAILY, First dose on Wed04/01/23 at 0900, Until Discontinu ed, Routine [facility] tamsulosin (FLOMAX) capsule 0.4 mg 04-01 14:00: 00 Yes .4mg 0.4 mg, Oral, DAILY, First dose on Wed04/01/23 at 0900, Until Discontinu ed, Routine [facility] magnesium oxide (MAG-OX 400) tablet 400 mg 04-01 14:00: 00 Yes 400mg 400 mg, Oral, DAILY, First dose on Wed04/01/23 at 0900, Until Discontinu ed, Routine [facility] lisinopriL (PRINIVIL,Z ESTRIL) tablet 2.5 mg 04-01 14:00: 00 Yes 2.5mg 2.5 mg, Oral, DAILY, First dose on Wed04/01/23 at 0900, Until Discontinu ed, Routine [facility] enoxaparin (LOVENOX) injection 30 mg 04-01 14:00: 00 Yes 30mg 30 mg, Subcutaneo us, DAILY, First dose on Wed04/01/23 at 0900, Until Discontinu ed, Routine [facility] lactated ringers IV infusion 1,000 mL 04-01 13:30: 00 04-01 13:19 :12 No 1000mL at 100 mL/hr, 1,000 mL, IV Infusion, ONCE, 1 dose, On Wed04/01/23 at 0830, Routine [facility] Sliding Scale Insulin - Lispro (HumaLOG) 04-01 13:00: 00 Yes Subcutaneo us, TID MEALS+HS, First dose on Wed04/01/23 at 0800, Until Discontinu ed, Routine [facility] glucagon (GLUCAGEN DIAGNOSTIC KIT) injection 1 mg 04-01 12:37: 38 Yes 1mg 1 mg, Intramuscu lar, PRN, Starting on Wed04/01/23 at 0737, Until Discontinu ed, JAY, Blood Glucose < or = 70 mg/dL and patient is NPO, unable to swallow or has mental changes. [facility] dextrose 50 % in water (D50W) injection 25 mL 04-01 12:37: 38 Yes 25mL 25 mL, Slow IV Push, PRN, Starting on Wed04/01/23 at 0737, Until Discontinu ed, JAY, Blood Glucose < or = 70 mg/dL and patient is NPO, unable to swallow or has mental status changes. [facility] proCHLORper azine (COMPAZINE) tablet 10 mg 04-01 12:36: 35 Yes 10mg 10 mg, Oral, Q6HPRN, Starting on Wed04/01/23 at 0736, Until Discontinu ed, Routine, Nausea and Vomiting (N/V) [facility] meclizine (TRAVEL-EAS E (MECLIZINE) ) tablet 25 mg 04-01 12:36: 29 Yes 25mg 25 mg, Oral, TIDPRN, Starting on Wed04/01/23 at 0736, Until Discontinu ed, Routine, Dizziness [facility] loperamide (IMODIUM A-D) capsule 4 mg 04-01 12:36: 25 Yes 4mg 4 mg, Oral, Q4HPRN, Starting on Wed04/01/23 at 0736, Until Discontinu ed, Routine, Diarrhea [facility] benzonatate (TESSALON PERLES) capsule 100 mg 04-01 12:34: 42 Yes 100mg 100 mg, Oral, TIDPRN, Starting on Wed04/01/23 at 0734, Until Discontinu ed, Routine, Cough [facility] albuterol (VENTOLIN) inhaler 2 Puff 04-01 12:34: 38 Yes 2{puff} 2 Puff, Inhalation , Q6HPRN, Starting on Wed04/01/23 at 0734, Until Discontinu ed, Routine, Wheezing, Shortness of Breath [facility] azithromyci n (ZITHROMAX) tablet 250 mg 03-31 23:45: 00 04-02 13:35 :00 No 250mg 250 mg, Oral, DAILY, 3 doses, First dose on Wed03/31/23 at 1845, Last dose on Wed04/02/23 at 0900, JAY
Re ason for Anti-Infec tive: Documented Infection< br>Documen margarita Infection Site: Respirator y
Durat ion of Therapy: Other (see Comments) [facility] ondansetron (ZOFRAN (PF)) injection 4 mg 03-31 23:30: 44 Yes 4mg 4 mg, Slow IV Push, Q6HPRN, Starting on Wed03/31/23 at 1830, Until Discontinu ed, Routine, Nausea and Vomiting (N/V) [facility] acetaminoph en (TYLENOL) tablet 650 mg 03-31 23:30: 13 Yes 650mg 650 mg, Oral, Q6HPRN, Starting on Wed03/31/23 at 1830, Until Discontinu ed, Routine, Pain (scale 1-3), Temp > 38 C [facility] Vancomycin 750 mg in NaCl 0.9% (NS) 250 mL VIAL-MATE 03-31 22:45: 00 03-31 23:38 :00 No 750mg 750 mg, IV Piggyback, ONCE, 1 dose, On Wed03/31/23 at 1745, Administer over 60 Minutes, 250 mL
Reas on for Anti-Infec tive: Empiric Therapy for Suspected Infection< br>Empiric Therapy Site: Respirator y
Durat ion of therapy: 72 hours [facility] piperacilli n-tazobacta m (ZOSYN) 3.375 g in NaCl 0.9% (NS) 100 mL MINI-BAG 03-31 22:00: 00 03-31 22:37 :00 No 3.375g 3.375 g, IV Piggyback, ONCE, 1 dose, On Wed03/31/23 at 1700, Administer over 30 Minutes, 100 mL
Reas on for Anti-Infec tive: Empiric Therapy for Suspected Infection< br>Empiric Therapy Site: Respirator y
Durat ion of therapy: 72 hours [facility] meclizine (TRAVEL-EAS E (MECLIZINE) ) tablet 25 mg 03-31 20:00: 00 03-31 20:25 :00 No 25mg 25 mg, Oral, ONCE, 1 dose, On Wed03/31/23 at 1500, JAY [facility] NaCl 0.9% (NS) bolus infusion 1,000 mL 03-31 20:00: 00 03-31 21:54 :00 No 1000mL at 999 mL/hr, 1,000 mL, IV Infusion, ONCE, 1 dose, On Wed03/31/23 at 1500, STAT [facility] levoFLOXaci n (LEVAQUIN) 500 mg tablet 03-19 00:00: 00 Yes [id number] 500mg Take 1 tablet by mouth every 24 (twenty-fo ur) hours. [facility] levoFLOXaci n (LEVAQUIN) 500 mg tablet 03-19 00:00: 00 04-02 00:00 :00 No [id number] 500mg Take 1 tablet by mouth every 24 (twenty-fo ur) hours. [facility] bevacizumab -bvzr (ZIRABEV) 500 mg in NaCl 0.9% (NS) 100 mL infusion 03-18 15:30: 00 03-18 17:50 :00 No [id number] 7.5mg/k g 500 mg (rounded from 536.25 mg = 7.5 mg/kg ?71.5 kg Treatment plan Recorded weight), IV Infusion, ONCE, Administer over 30 Minutes, On Mireya 03/18/23 at 1030, For 1 dose
Sh ould be diluted in 0.9% Sodium Chloride, not D5W. May store diluted solution in refrigerat or for up to 8 hours.&nbs p;Infuse 1st infusion over 90 minutes; 2nd infusion for 60 minutes; subsequent infusions over 30 minutes if well tolerated.
[facility] NaCl 0.9% (NS) IV infusion 1,000 mL 03-18 15:30: 00 03-18 17:23 :00 No [id number] 1000mL at 1,000 mL/hr, IV Infusion, ONCE, 1 dose, On Mireya 03/18/23 at 1030, Routine [facility] cyanocobala min (DODEX) injection 1,000 mcg 03-18 15:30: 00 03-18 16:23 :00 No [id number] 1000ug 1,000 mcg, Intramuscu lar, ONCE, 1 dose, On Mireya 03/18/23 at 1030, Routine [facility] iron sucrose (VENOFER) 200 mg in NaCl 0.9% (NS) 100 mL infusion 03-18 15:30: 00 03-18 17:15 :00 No [id number] 200mg 200 mg, IV Infusion, ONCE, Administer over 60 Minutes, On Mireya 03/18/23 at 1030, For 1 dose [facility] heparin lock flush (HEPARIN LOCKFLUSH(P ORCINE)(PF) ) 100 unit/mL injection 500 Units 03-18 15:27: 55 03-19 15:26 :55 No [id number] 500U 500 Units, IV Push, PRN, Starting on Wed03/18/23 at 1027, Until Wed03/19/23 at 1026, Routine [facility] fludeoxyglu cose F-18 (FDG) injection 10 millicurie 2022-03-18 13:30: 00 03-18 13:26 :00 No [id number] 10mCi 10 millicurie , Intravenou s, ONCE, 1 dose, On Wed03/18/23 at 0830, Routine [facility] capecitabin e 500 mg tablet 2022-0 - 00:00: 00 Yes [id number] 1000mg Take 2 tablets by mouth 2 (two) times daily. Take 2 tablets in the morning and 2 tablets in the evening for 14 days. Then 7 days off . Take within 30 minutes of finishing a meal. [facility] capecitabin e 500 mg tablet 2022-0 -10 00:00: 00 Yes [id number] 1000mg Take 2 tablets by mouth 2 (two) times daily. Take 2 tablets in the morning and 2 tablets in the evening for 14 days. Then 7 days off . Take within 30 minutes of finishing a meal. [facility] capecitabin e 500 mg tablet 3-0 8-10 00:00: 00 Yes [id number] 1000mg Take 2 tablets in the morning and 2 tablets in the evening for 14 days. Then 7 days off . Take within 30 minutes of finishing a meal. [facility] capecitabin e 500 mg tablet 3-0 8-10 00:00: 00 Yes [id number] 1000mg Take 2 tablets in the morning and 2 tablets in the evening for 14 days. Then 7 days off . Take within 30 minutes of finishing a meal. [facility] capecitabin e 500 mg tablet 3-0 8-10 00:00: 00 Yes [id number] 1000mg Take 2 tablets in the morning and 2 tablets in the evening for 14 days. Then 7 days off . Take within 30 minutes of finishing a meal. [facility] capecitabin e 500 mg tablet 2023-0 8-10 00:00: 00 Yes [id number] 1000mg Take 2 tablets in the morning and 2 tablets in the evening for 14 days. Then 7 days off . Take within 30 minutes of finishing a meal. [facility] capecitabin e 500 mg tablet 3-0 8-10 00:00: 00 Yes [id number] 1000mg Take 2 tablets in the morning and 2 tablets in the evening for 14 days. Then 7 days off . Take within 30 minutes of finishing a meal. [facility] capecitabin e 500 mg tablet 3-0 8-10 00:00: 00 Yes [id number] 1000mg Take 2 tablets in the morning and 2 tablets in the evening for 14 days. Then 7 days off . Take within 30 minutes of finishing a meal. [facility] capecitabin e 500 mg tablet 3-0 8-10 00:00: 00 Yes [id number] 1000mg Take 2 tablets in the morning and 2 tablets in the evening for 14 days. Then 7 days off . Take within 30 minutes of finishing a meal. [facility] capecitabin e 500 mg tablet 3-0 8-10 00:00: 00 Yes [id number] 1000mg Take 2 tablets in the morning and 2 tablets in the evening for 14 days. Then 7 days off . Take within 30 minutes of finishing a meal. [facility] capecitabin e 500 mg tablet 3-0 8-10 00:00: 00 Yes [id number] 1000mg Take 2 tablets in the morning and 2 tablets in the evening for 14 days. Then 7 days off . Take within 30 minutes of finishing a meal. [facility] capecitabin e 500 mg tablet 3-0 8-10 00:00: 00 Yes [id number] 1000mg Take 2 tablets in the morning and 2 tablets in the evening for 14 days. Then 7 days off . Take within 30 minutes of finishing a meal. [facility] capecitabin e 500 mg tablet 3-0 8-10 00:00: 00 Yes [id number] 1000mg Take 2 tablets in the morning and 2 tablets in the evening for 14 days. Then 7 days off . Take within 30 minutes of finishing a meal. [facility] capecitabin e 500 mg tablet 2023-0 8-10 00:00: 00 Yes [id number] 1000mg Take 2 tablets in the morning and 2 tablets in the evening for 14 days. Then 7 days off . Take within 30 minutes of finishing a meal. [facility] capecitabin e 500 mg tablet 2023-0 8-10 00:00: 00 Yes [id number] 1000mg Take 2 tablets in the morning and 2 tablets in the evening for 14 days. Then 7 days off . Take within 30 minutes of finishing a meal. [facility] capecitabin e 500 mg tablet 2023-0 8-10 00:00: 00 Yes [id number] 1000mg Take 2 tablets in the morning and 2 tablets in the evening for 14 days. Then 7 days off . Take within 30 minutes of finishing a meal. [facility] capecitabin e 500 mg tablet 2023-0 8-10 00:00: 00 Yes [id number] 1000mg Take 2 tablets in the morning and 2 tablets in the evening for 14 days. Then 7 days off . Take within 30 minutes of finishing a meal. [facility] capecitabin e 500 mg tablet 3-0 8-10 00:00: 00 Yes [id number] 1000mg Take 2 tablets in the morning and 2 tablets in the evening for 14 days. Then 7 days off . Take within 30 minutes of finishing a meal. [facility] capecitabin e 500 mg tablet 2023-0 8-10 00:00: 00 Yes [id number] 1000mg Take 2 tablets in the morning and 2 tablets in the evening for 14 days. Then 7 days off . Take within 30 minutes of finishing a meal. [facility] capecitabin e 500 mg tablet 2023-0 8-10 00:00: 00 11 00:00 :00 No [id number] 1000mg Take 2 tablets in the morning and 2 tablets in the evening for 14 days. Then 7 days off . Take within 30 minutes of finishing a meal. [facility] capecitabin e 500 mg tablet 2023-0 8-10 00:00: 00 05-19 00:00 :00 No [id number] 1000mg Take 2 tablets in the morning and 2 tablets in the evening for 14 days. Then 7 days off . Take within 30 minutes of finishing a meal. [facility] capecitabin e 500 mg tablet 8-10 00:00: 00 05-19 00:00 :00 No [id number] 1000mg Take 2 tablets in the morning and 2 tablets in the evening for 14 days. Then 7 days off . Take within 30 minutes of finishing a meal. [facility] capecitabin e 500 mg tablet 810 00:00: 00 05-19 00:00 :00 No [id number] 1000mg Take 2 tablets in the morning and 2 tablets in the evening for 14 days. Then 7 days off . Take within 30 minutes of finishing a meal. [facility] iopamidol (ISOVUE 300-500 mL) injection 350 mL 03-01 17:45: 00 03-01 16:57 :00 No [id number] 350mL 350 mL, Intravenou s, ONCE, 1 dose, On Wed03/01/23 at 1245, Routine [facility] iopamidol (ISOVUE 300-500 mL) injection 350 mL 03-01 17:45: 00 03-01 16:57 :00 No [id number] 350mL 350 mL, Intravenou s, ONCE, 1 dose, On Wed03/01/23 at 1245, Routine [facility] hydralAZINE (APRESOLINE ) injection 03-01 17:01: 33 03-01 17:01 :33 No PRN, Starting on Wed03/01/23 at 1201, Until Wed03/01/23 at 1201, STAT, Intra-op [facility] hydralAZINE (APRESOLINE ) injection 03-01 17:01: 33 03-01 17:01 :33 No PRN, Starting on Wed03/01/23 at 1201, Until Wed03/01/23 at 1201, STAT, Intra-op [facility] yttrium Y-90 resin microsphere s injection 10.78 millicurie 03-01 17:00: 00 03-01 16:50 :00 No [id number] 10.78mC i 10.78 millicurie , Intravenou s, ONCE, 1 dose, On Wed03/01/23 at 1200, Routine [facility] ondansetron (ZOFRAN (PF)) injection 03-01 16:35: 06 03-01 16:35 :06 No Slow IV Push, PRN, Starting on Wed03/01/23 at 1135, Until Wed03/01/23 at 1135, Routine, Intra-op [facility] ondansetron (ZOFRAN (PF)) injection 03-01 16:35: 06 03-01 16:35 :06 No Slow IV Push, PRN, Starting on Wed03/01/23 at 1135, Until Wed03/01/23 at 1135, Routine, Intra-op [facility] ceFAZolin (ANCEF) injection 03-01 14:45: 23 03-01 14:45 :23 No Slow IV Push, PRN, Starting on Wed03/01/23 at 0945, Until Wed03/01/23 at 0945, JAY, Intra-op [facility] ceFAZolin (ANCEF) injection 03-01 14:45: 23 03-01 14:45 :23 No Slow IV Push, PRN, Starting on Wed03/01/23 at 0945, Until Wed03/01/23 at 0945, JAY, Intra-op [facility] FENTanyl PF (SUBLIMAZE (PF)) injection 03-01 14:40: 00 03-01 16:56 :39 No Slow IV Push, PRN, Starting on Wed03/01/23 at 0940, Until Wed03/01/23 at 1156, Routine, Intra-op [facility] midazolam (VERSED) injection 03-01 14:40: 00 03-01 16:21 :47 No IV Push, PRN, Starting on Wed03/01/23 at 0940, Until Wed03/01/23 at 1121, Routine, Intra-op [facility] FENTanyl PF (SUBLIMAZE (PF)) injection 03-01 14:40: 00 03-01 16:56 :39 No Slow IV Push, PRN, Starting on Wed03/01/23 at 0940, Until Wed03/01/23 at 1156, Routine, Intra-op [facility] midazolam (VERSED) injection 03-01 14:40: 00 03-01 16:21 :47 No IV Push, PRN, Starting on Wed03/01/23 at 0940, Until Wed03/01/23 at 1121, Routine, Intra-op [facility] iopamidol (ISOVUE 300-500 mL) injection 300 mL 02-26 18:15: 00 02-26 17:16 :00 No [id number] 300mL 300 mL, Intravenou s, ONCE, 1 dose, On Wed02/26/23 at 1315, Routine [facility] iopamidol (ISOVUE 300-500 mL) injection 300 mL 02-26 18:15: 00 02-26 17:16 :00 No [id number] 300mL 300 mL, Intravenou s, ONCE, 1 dose, On Wed02/26/23 at 1315, Routine [facility] tc 99m-albumin (DRAXIMAGE MAA) injection 3 millicurie 02-26 15:30: 00 02-26 15:30 :00 No [id number] 3mCi 3 millicurie , Oral, ONCE, 1 dose, On Wed02/26/23 at 1030, Routine [facility] lidocaine 1% (PF) (XYLOCAINE) injection 02-26 14:59: 00 Yes PRN, Starting on Wed02/26/23 at 0959, Until Discontinu ed, Routine, Intra-op [facility] lidocaine 1% (PF) (XYLOCAINE) injection 02-26 14:59: 00 02-27 09:12 :13 No PRN, Starting on Wed02/26/23 at 0959, Until 02/27/23 at 0412, Routine, Intra-op [facility] ceFAZolin (ANCEF) injection 02-26 14:56: 00 Yes Slow IV Push, PRN, Starting on Wed02/26/23 at 0956, Until Discontinu ed, JAY, Intra-op [facility] ceFAZolin (ANCEF) injection 02-26 14:56: 00 02-27 09:12 :13 No Slow IV Push, PRN, Starting on Wed02/26/23 at 0956, Until 02/27/23 at 0412, JAY, Intra-op [facility] FENTanyl PF (SUBLIMAZE (PF)) injection 02-26 14:55: 00 Yes Slow IV Push, PRN, Starting on Wed02/26/23 at 0955, Until Discontinu ed, Routine, Intra-op [facility] midazolam (VERSED) injection 02-26 14:55: 00 Yes IV Push, PRN, Starting on Wed02/26/23 at 0955, Until Discontinu ed, Routine, Intra-op [facility] FENTanyl PF (SUBLIMAZE (PF)) injection 02-26 14:55: 00 02-27 09:12 :13 No Slow IV Push, PRN, Starting on Wed02/26/23 at 0955, Until 02/27/23 at 0412, Routine, Intra-op [facility] midazolam (VERSED) injection 02-26 14:55: 00 02-27 09:12 :13 No IV Push, PRN, Starting on Wed02/26/23 at 0955, Until 02/27/23 at 0412, Routine, Intra-op [facility] amoxicillin 500 mg tablet 02-24 00:00: 00 03-07 04:59 :00 No [id number] 500mg Take 1 tablet by mouth 3 (three) times daily for 10 days. [facility] amoxicillin 500 mg tablet 0 7 00:00: 00 03-07 04:59 :00 No [id number] 500mg Take 1 tablet by mouth 3 (three) times daily for 10 days. [facility] amoxicillin 500 mg tablet 0 7 00:00: 00 03-07 04:59 :00 No [id number] 500mg Take 1 tablet by mouth 3 (three) times daily for 10 days. [facility] amoxicillin 500 mg tablet 0 02-24 00:00: 00 03-07 04:59 :00 No [id number] 500mg Take 1 tablet by mouth 3 (three) times daily for 10 days. [facility] amoxicillin 500 mg tablet 0 02-24 00:00: 00 03-07 04:59 :00 No [id number] 500mg Take 1 tablet by mouth 3 (three) times daily for 10 days. [facility] amoxicillin 500 mg tablet 0 02-24 00:00: 00 03-07 04:59 :00 No [id number] 500mg Take 1 tablet by mouth 3 (three) times daily for 10 days. [facility] amoxicillin 500 mg tablet 0 02-24 00:00: 00 03-07 04:59 :00 No [id number] 500mg Take 1 tablet by mouth 3 (three) times daily for 10 days. [facility] amoxicillin 500 mg tablet 0 02-24 00:00: 00 03-07 04:59 :00 No [id number] 500mg Take 1 tablet by mouth 3 (three) times daily for 10 days. [facility] amoxicillin 500 mg tablet 0 02-24 00:00: 00 03-07 04:59 :00 No [id number] 500mg Take 1 tablet by mouth 3 (three) times daily for 10 days. [facility] amoxicillin 500 mg tablet 2022-0 719 00:00: 00 03-07 04:59 :00 No [id number] 500mg Take 1 tablet by mouth 3 (three) times daily for 10 days. [facility] amoxicillin 500 mg tablet 0 19 00:00: 00 03-07 04:59 :00 No [id number] 500mg Take 1 tablet by mouth 3 (three) times daily for 10 days. [facility] amoxicillin 500 mg tablet 0 19 00:00: 00 03-07 04:59 :00 No [id number] 500mg Take 1 tablet by mouth 3 (three) times daily for 10 days. [facility] amoxicillin 500 mg tablet 0 02-24 00:00: 00 03-07 04:59 :00 No [id number] 500mg Take 1 tablet by mouth 3 (three) times daily for 10 days. [facility] amoxicillin 500 mg tablet 0 02-24 00:00: 00 03-07 04:59 :00 No [id number] 500mg Take 1 tablet by mouth 3 (three) times daily for 10 days. [facility] mg tablet 0 02-24 00:00: 00 03-07 04:59 :00 No [id number] 500mg Take 1 tablet by mouth 3 (three) times daily for 10 days. [facility] amoxicillin 500 mg tablet 0 02-24 00:00: 00 03-07 04:59 :00 No [id number] 500mg Take 1 tablet by mouth 3 (three) times daily for 10 days. [facility] amoxicillin 500 mg tablet 2022-0 18 00:00: 00 03-01 04:59 :00 No [id number] 500mg Take 1 tablet by mouth 2 (two) times daily for 5 days. [facility] am[facility] 500 mg tablet 3-0 18 00:00: 00 03-01 04:59 :00 No [id number] 500mg Take 1 tablet by mouth 2 (two) times daily for 5 days. [facility] amoxicillin 500 mg tablet 2022-0 718 00:00: 00 03-01 04:59 :00 No [id number] 500mg Take 1 tablet by mouth 2 (two) times daily for 5 days. [facility] amoxicillin 500 mg tablet 18 00:00: 00 03-01 04:59 :00 No [id number] 500mg Take 1 tablet by mouth 2 (two) times daily for 5 days. [facility] amoxicillin 500 mg tablet 18 00:00: 00 03-01 04:59 :00 No [id number] 500mg Take 1 tablet by mouth 2 (two) times daily for 5 days. [facility] amoxicillin 500 mg tablet 18 00:00: 00 03-01 04:59 :00 No [id number] 500mg Take 1 tablet by mouth 2 (two) times daily for 5 days. [facility] amoxicillin 500 mg tablet 02-23 00:00: 00 03-01 04:59 :00 No [id number] 500mg Take 1 tablet by mouth 2 (two) times daily for 5 days. [facility] amoxicillin 500 mg tablet 02-23 00:00: 00 03-01 04:59 :00 No [id number] 500mg Take 1 tablet by mouth 2 (two) times daily for 5 days. [facility] amoxicillin 500 mg tablet 18 00:00: 00 03-01 04:59 :00 No [id number] 500mg Take 1 tablet by mouth 2 (two) times daily for 5 days. [facility] amoxicillin 500 mg tablet 18 00:00: 00 03-01 04:59 :00 No [id number] 500mg Take 1 tablet by mouth 2 (two) times daily for 5 days. [facility] amoxicillin 500 mg tablet 18 00:00: 00 03-01 04:59 :00 No [id number] 500mg Take 1 tablet by mouth 2 (two) times daily for 5 days. [facility] bevacizumab -bvzr (ZIRABEV) 500 mg in NaCl 0.9% (NS) 100 mL infusion 02-04 16:30: 00 02-04 17:55 :00 No [id number] 7.5mg/k g 500 mg (rounded from 536.25 mg = 7.5 mg/kg ?71.5 kg Treatment plan Recorded weight), IV Infusion, ONCE, Administer over 30 Minutes, On Wed02/04/23 at 1130, For 1 dose
Sh ould be diluted in 0.9% Sodium Chloride, not D5W. May store diluted solution in refrigerat or for up to 8 hours.&nbs p;Infuse 1st infusion over 90 minutes; 2nd infusion for 60 minutes; subsequent infusions over 30 minutes if well tolerated.
[facility] NaCl 0.9% (NS) IV infusion 1,000 mL 02-04 16:30: 00 02-04 17:29 :00 No [id number] 1000mL at 1,000 mL/hr, IV Infusion, ONCE, 1 dose, On Wed02/04/23 at 1130, Routine [facility] cyanocobala min (DODEX) injection 1,000 mcg 02-04 16:30: 00 02-04 16:33 :00 No [id number] 1000ug 1,000 mcg, Intramuscu lar, ONCE, 1 dose, On Wed02/04/23 at 1130, Routine [facility] atropine injection 0.25 mg 02-04 16:21: 58 02-05 16:20 :58 No [id number] .25mg 0.25 mg, IV Push, PRN, Starting on Wed02/04/23 at 1121, Until Wed02/05/23 at 1120, Routine, Stomach cramping, acute flushing. [facility] albuterol (PROVENTIL) 2.5 mg /3 mL (0.083 %) nebulizer solution 2.5 mg 02-04 16:21: 58 02-05 16:20 :58 No [id number] 2.5mg 2.5 mg, Inhalation , PRN - SEE INSTRUCTIO NS, Starting on Wed02/04/23 at 1121, Until Wed02/05/23 at 1120, Routine, Shortness of Breath, Wheezing, As needed for chemothera py reactions [facility] methylpredn isolone sod succ (SOLU-MEDRO L) injection 125 mg 02-04 16:21: 58 02-05 16:20 :58 No [id number] 125mg 125 mg, Slow IV Push, Administer over 3 Minutes, PRN - SEE INSTRUCTIO NS, Starting on Wed02/04/23 at 1121, Until Wed02/05/23 at 1120, Routine, As needed for chemothera py reactions [facility] EPINEPHrine (EPIPEN AUTO-INJECT OR) 0.3 mg/0.3 mL injection 0.3 mg 02-04 16:21: 58 02-05 16:20 :58 No [id number] .3mg 0.3 mg, Intramuscu lar, PRN - SEE INSTRUCTIO NS, Starting on Wed02/04/23 at 1121, Until Wed02/05/23 at 1120, Routine, As needed for chemothera py reactions [facility] diphenhydrA MINE (BENADRYL) injection 50 mg 02-04 16:21: 57 02-05 16:20 :57 No [id number] 50mg 50 mg, Slow IV Push, Administer over 2 Minutes, PRN - SEE INSTRUCTIO NS, Starting on Wed02/04/23 at 1121, Until Wed02/05/23 at 1120, Routine, As needed for chemothera py reactions< br>INDICAT ION: ANAPHYLAXI S [facility] heparin lock flush (HEPARIN LOCKFLUSH(P ORCINE)(PF) ) 100 unit/mL injection 500 Units 02-04 16:21: 57 02-05 16:20 :57 No [id number] 500U 500 Units, IV Push, PRN, Starting on Wed02/04/23 at 1121, Until Wed02/05/23 at 1120, Routine [facility] capecitabin e 500 mg tablet 02-04 00:00: 00 Yes [id number] 1000mg Take 2 tablets by mouth 2 (two) times daily. Take 2 tablets in the morning and 2 tablets in the evening for 14 days. Then 7 days off . Take within 30 minutes of finishing a meal. [facility] capecitabin e 500 mg tablet 0 02-04 00:00: 00 Yes [id number] 1000mg Take 2 tablets in the morning and 2 tablets in the evening for 14 days. Then 7 days off . Take within 30 minutes of finishing a meal. [facility] capecitabin e 500 mg tablet 0 02-04 00:00: 00 Yes [id number] 1000mg Take 2 tablets in the morning and 2 tablets in the evening for 14 days. Then 7 days off . Take within 30 minutes of finishing a meal. [facility] capecitabin e 500 mg tablet 0 02-04 00:00: 00 Yes [id number] 1000mg Take 2 tablets in the morning and 2 tablets in the evening for 14 days. Then 7 days off . Take within 30 minutes of finishing a meal. [facility] capecitabin e 500 mg tablet 0 02-04 00:00: 00 Yes [id number] 1000mg Take 2 tablets in the morning and 2 tablets in the evening for 14 days. Then 7 days off . Take within 30 minutes of finishing a meal. [facility] capecitabin e 500 mg tablet 0 02-04 00:00: 00 Yes [id number] 1000mg Take 2 tablets in the morning and 2 tablets in the evening for 14 days. Then 7 days off . Take within 30 minutes of finishing a meal. [facility] capecitabin e 500 mg tablet 0 02-04 00:00: 00 Yes [id number] 1000mg Take 2 tablets in the morning and 2 tablets in the evening for 14 days. Then 7 days off . Take within 30 minutes of finishing a meal. [facility] capecitabin e 500 mg tablet 3-0 02-04 00:00: 00 Yes [id number] 1000mg Take 2 tablets in the morning and 2 tablets in the evening for 14 days. Then 7 days off . Take within 30 minutes of finishing a meal. [facility] capecitabin e 500 mg tablet 3-0 02-04 00:00: 00 Yes [id number] 1000mg Take 2 tablets in the morning and 2 tablets in the evening for 14 days. Then 7 days off . Take within 30 minutes of finishing a meal. [facility] capecitabin e 500 mg tablet 3-0 02-04 00:00: 00 Yes [id number] 1000mg Take 2 tablets in the morning and 2 tablets in the evening for 14 days. Then 7 days off . Take within 30 minutes of finishing a meal. [facility] capecitabin e 500 mg tablet 3-0 02-04 00:00: 00 Yes [id number] 1000mg Take 2 tablets in the morning and 2 tablets in the evening for 14 days. Then 7 days off . Take within 30 minutes of finishing a meal. [facility] capecitabin e 500 mg tablet 2022-0 02-04 00:00: 00 Yes [id number] 1000mg Take 2 tablets in the morning and 2 tablets in the evening for 14 days. Then 7 days off . Take within 30 minutes of finishing a meal. [facility] capecitabin e 500 mg tablet 2022-0 02-04 00:00: 00 Yes [id number] 1000mg Take 2 tablets in the morning and 2 tablets in the evening for 14 days. Then 7 days off . Take within 30 minutes of finishing a meal. [facility] capecitabin e 500 mg tablet 0 02-04 00:00: 00 Yes [id number] 1000mg Take 2 tablets in the morning and 2 tablets in the evening for 14 days. Then 7 days off . Take within 30 minutes of finishing a meal. [facility] capecitabin e 500 mg tablet 2022-0 02-04 00:00: 00 Yes [id number] 1000mg Take 2 tablets in the morning and 2 tablets in the evening for 14 days. Then 7 days off . Take within 30 minutes of finishing a meal. [facility] capecitabin e 500 mg tablet 3-0 02-04 00:00: 00 Yes [id number] 1000mg Take 2 tablets in the morning and 2 tablets in the evening for 14 days. Then 7 days off . Take within 30 minutes of finishing a meal. [facility] capecitabin e 500 mg tablet 3-0 02-04 00:00: 00 Yes [id number] 1000mg Take 2 tablets in the morning and 2 tablets in the evening for 14 days. Then 7 days off . Take within 30 minutes of finishing a meal. [facility] capecitabin e 500 mg tablet 3-0 02-04 00:00: 00 Yes [id number] 1000mg Take 2 tablets in the morning and 2 tablets in the evening for 14 days. Then 7 days off . Take within 30 minutes of finishing a meal. [facility] capecitabin e 500 mg tablet 3-0 02-04 00:00: 00 Yes [id number] 1000mg Take 2 tablets in the morning and 2 tablets in the evening for 14 days. Then 7 days off . Take within 30 minutes of finishing a meal. [facility] capecitabin e 500 mg tablet 3-0 02-04 00:00: 00 Yes [id number] 1000mg Take 2 tablets in the morning and 2 tablets in the evening for 14 days. Then 7 days off . Take within 30 minutes of finishing a meal. [facility] capecitabin e 500 mg tablet 3-0 02-04 00:00: 00 Yes [id number] 1000mg Take 2 tablets in the morning and 2 tablets in the evening for 14 days. Then 7 days off . Take within 30 minutes of finishing a meal. [facility] capecitabin e 500 mg tablet 3-0 02-04 00:00: 00 Yes [id number] 1000mg Take 2 tablets in the morning and 2 tablets in the evening for 14 days. Then 7 days off . Take within 30 minutes of finishing a meal. [facility] capecitabin e 500 mg tablet 3-0 02-04 00:00: 00 Yes [id number] 1000mg Take 2 tablets in the morning and 2 tablets in the evening for 14 days. Then 7 days off . Take within 30 minutes of finishing a meal. [facility] capecitabin e 500 mg tablet 3-0 29 00:00: 00 Yes [id number] 1000mg Take 2 tablets in the morning and 2 tablets in the evening for 14 days. Then 7 days off . Take within 30 minutes of finishing a meal. [facility] capecitabin e 500 mg tablet 3-0 02-04 00:00: 00 Yes [id number] 1000mg Take 2 tablets in the morning and 2 tablets in the evening for 14 days. Then 7 days off . Take within 30 minutes of finishing a meal. [facility] capecitabin e 500 mg tablet 3-0 02-04 00:00: 00 Yes [id number] 1000mg Take 2 tablets in the morning and 2 tablets in the evening for 14 days. Then 7 days off . Take within 30 minutes of finishing a meal. [facility] capecitabin e 500 mg tablet 3-0 02-04 00:00: 00 Yes [id number] 1000mg Take 2 tablets in the morning and 2 tablets in the evening for 14 days. Then 7 days off . Take within 30 minutes of finishing a meal. [facility] capecitabin e 500 mg tablet 2022-0 02-04 00:00: 00 Yes [id number] 1000mg Take 2 tablets in the morning and 2 tablets in the evening for 14 days. Then 7 days off . Take within 30 minutes of finishing a meal. [facility] capecitabin e 500 mg tablet 0 02-04 00:00: 00 Yes [id number] 1000mg Take 2 tablets in the morning and 2 tablets in the evening for 14 days. Then 7 days off . Take within 30 minutes of finishing a meal. [facility] capecitabin e 500 mg tablet 2022-0 02-04 00:00: 00 Yes [id number] 1000mg Take 2 tablets in the morning and 2 tablets in the evening for 14 days. Then 7 days off . Take within 30 minutes of finishing a meal. [facility] capecitabin e 500 mg tablet 3-0 02-04 00:00: 00 Yes [id number] 1000mg Take 2 tablets in the morning and 2 tablets in the evening for 14 days. Then 7 days off . Take within 30 minutes of finishing a meal. [facility] capecitabin e 500 mg tablet 3-0 02-04 00:00: 00 Yes [id number] 1000mg Take 2 tablets in the morning and 2 tablets in the evening for 14 days. Then 7 days off . Take within 30 minutes of finishing a meal. [facility] capecitabin e 500 mg tablet 02-04 00:00: 00 Yes [id number] 1000mg Take 2 tablets in the morning and 2 tablets in the evening for 14 days. Then 7 days off . Take within 30 minutes of finishing a meal. [facility] capecitabin e 500 mg tablet 02-04 00:00: 00 04-02 00:00 :00 No [id number] 1000mg Take 2 tablets in the morning and 2 tablets in the evening for 14 days. Then 7 days off . Take within 30 minutes of finishing a meal. [facility] levoFLOXaci n 500 mg tablet 01-21 00:00: 00 01-29 04:59 :00 No [id number] 500mg Take 1 tablet by mouth every 24 (twenty-fo ur) hours for 7 days. [facility] levoFLOXaci n 500 mg tablet 01-21 00:00: 00 01-29 04:59 :00 No [id number] 500mg Take 1 tablet by mouth every 24 (twenty-fo ur) hours for 7 days. [facility] levoFLOXaci n 500 mg tablet 01-21 00:00: 00 01-29 04:59 :00 No [id number] 500mg Take 1 tablet by mouth every 24 (twenty-fo ur) hours for 7 days. [facility] levoFLOXaci n 500 mg tablet 01-21 00:00: 00 01-29 04:59 :00 No [id number] 500mg Take 1 tablet by mouth every 24 (twenty-fo ur) hours for 7 days. [facility] levoFLOXaci n 500 mg tablet 01-21 00:00: 00 01-29 04:59 :00 No [id number] 500mg Take 1 tablet by mouth every 24 (twenty-fo ur) hours for 7 days. [facility] levoFLOXaci n 500 mg tablet 01-21 00:00: 00 01-29 04:59 :00 No [id number] 500mg Take 1 tablet by mouth every 24 (twenty-fo ur) hours for 7 days. [facility] levoFLOXaci n 500 mg tablet 01-21 00:00: 00 01-29 04:59 :00 No [id number] 500mg Take 1 tablet by mouth every 24 (twenty-fo ur) hours for 7 days. [facility] cefTRIAXone (ROCEPHIN) 1,000 mg in NaCl 0.9% (NS) 100 mL MINI-BAG 01-14 13:15: 00 01-14 13:51 :00 No 1000mg 1,000 mg, IV Piggyback, ONCE, 1 dose, On Mireya 01/14/23 at 0815, Administer over 30 Minutes, 100 mL
Reas on for Anti-Infec tive: Documented Infection< br>Documen margarita Infection Site: Urine
D uration of Therapy: Other (see Comments) [facility] acetaminoph en (TYLENOL) tablet 650 mg 01-14 10:15: 00 01-14 10:10 :00 No 650mg 650 mg, Oral, ONCE, 1 dose, On Mireya 01/14/23 at 0515, JAY [facility] cephALEXin (KEFLEX) 500 mg capsule 01-14 00:00: 00 01-25 04:59 :00 No [id number] 500mg Take 1 capsule by mouth 4 (four) times daily for 10 days. [facility] cephALEXin (KEFLEX) 500 mg capsule 01-14 00:00: 00 01-25 04:59 :00 No [id number] 500mg Take 1 capsule by mouth 4 (four) times daily for 10 days. [facility] cephALEXin (KEFLEX) 500 mg capsule 01-14 00:00: 00 01-25 04:59 :00 No [id number] 500mg Take 1 capsule by mouth 4 (four) times daily for 10 days. [facility] cephALEXin (KEFLEX) 500 mg capsule 01-14 00:00: 00 01-25 04:59 :00 No [id number] 500mg Take 1 capsule by mouth 4 (four) times daily for 10 days. [facility] cephALEXin (KEFLEX) 500 mg capsule 01-14 00:00: 00 01-25 04:59 :00 No [id number] 500mg Take 1 capsule by mouth 4 (four) times daily for 10 days. [facility] cephALEXin (KEFLEX) 500 mg capsule 01-14 00:00: 00 01-21 00:00 :00 No [id number] 500mg Take 1 capsule by mouth 4 (four) times daily for 10 days. [facility] cephALEXin (KEFLEX) 500 mg capsule 01-14 00:00: 00 01-21 00:00 :00 No [id number] 500mg Take 1 capsule by mouth 4 (four) times daily for 10 days. [facility] iopamidol (ISOVUE 370-500 mL) injection 100 mL 01-01 22:00: 00 01-01 22:17 :00 No [id number] 100mL 100 mL, Intravenou s, ONCE, 1 dose, On Wed01/01/23 at 1700, Routine [facility] bevacizumab -bvzr (ZIRABEV) 500 mg in NaCl 0.9% (NS) 100 mL infusion 12-24 16:00: 00 12-24 18:15 :00 No [id number] 7.5mg/k g 500 mg (rounded from 536.25 mg = 7.5 mg/kg ?71.5 kg Treatment plan Recorded weight), IV Infusion, ONCE, Administer over 30 Minutes, On Wed12/24/22 at 1100, For 1 dose
Sh ould be diluted in 0.9% Sodium Chloride, not D5W. May store diluted solution in refrigerat or for up to 8 hours.&nbs p;Infuse 1st infusion over 90 minutes; 2nd infusion for 60 minutes; subsequent infusions over 30 minutes if well tolerated.
[facility] NaCl 0.9% (NS) IV infusion 1,000 mL 12-24 16:00: 12-24 17:19 :00 No [id number] 1000mL at 1,000 mL/hr, IV Infusion, ONCE, 1 dose, On Wed12/24/22 at 1100, Routine [facility] cyanocobala min (DODEX) injection 1,000 mcg 12-24 16:00: 00 12-24 16:20 :00 No [id number] 1000ug 1,000 mcg, Intramuscu lar, ONCE, 1 dose, On Wed12/24/22 at 1100, Routine [facility] iron sucrose (VENOFER) 200 mg in NaCl 0.9% (NS) 100 mL infusion 12-24 16:00: 00 12-24 17:36 :00 No [id number] 200mg 200 mg, IV Infusion, ONCE, Administer over 60 Minutes, On Mireya 12/24/22 at 1100, For 1 dose [facility] heparin lock flush (HEPARIN LOCKFLUSH(P ORCINE)(PF) ) 100 unit/mL injection 500 Units 12-24 15:46: 22 12-25 15:45 :22 No [id number] 500U 500 Units, IV Push, PRN, Starting on Wed12/24/22 at 1046, Until Wed12/25/22 at 1045, Routine [facility] cefUROXime 250 mg tablet 12-22 00:00: 00 12-28 04:59 :00 No [id number] 250mg Take 1 tablet by mouth 2 (two) times daily for 5 days. [facility] cefUROXime 250 mg tablet 12-22 00:00: 00 12-28 04:59 :00 No [id number] 250mg Take 1 tablet by mouth 2 (two) times daily for 5 days. [facility] cefUROXime 250 mg tablet 12-22 00:00: 00 12-28 04:59 :00 No [id number] 250mg Take 1 tablet by mouth 2 (two) times daily for 5 days. [facility] cefUROXime 250 mg tablet 12-22 00:00: 00 12-28 04:59 :00 No [id number] 250mg Take 1 tablet by mouth 2 (two) times daily for 5 days. [facility] cefUROXime 250 mg tablet 12-22 00:00: 00 12-28 04:59 :00 No [id number] 250mg Take 1 tablet by mouth 2 (two) times daily for 5 days. [facility] cefUROXime 250 mg tablet 12-22 00:00: 00 12-28 04:59 :00 No [id number] 250mg Take 1 tablet by mouth 2 (two) times daily for 5 days. [facility] Nitrofurant oin&Nit. Macrocryst (MACROBID) 100 mg capsule 100 mg 12-14 05:45: 00 12-14 05:08 :00 No 100mg 100 mg, Oral, ONCE, 1 dose, On Wed12/14/22 at 0045, Routine
Reason for Anti-Infec tive: Documented Infection< br>Documen margarita Infection Site: Urine
D uration of Therapy: 7 days [facility] Nitrofurant oin&Nit. Macrocryst 100 mg capsule 12-13 00:00: 00 Yes [id number] 100mg Take 1 capsule by mouth 2 (two) times daily. [facility] Nitrofurant oin&Nit. Macrocryst 100 mg capsule 12-13 00:00: 00 Yes [id number] 100mg Take 1 capsule by mouth 2 (two) times daily. [facility] Nitrofurant oin&Nit. Macrocryst 100 mg capsule 12-13 00:00: 00 Yes [id number] 100mg Take 1 capsule by mouth 2 (two) times daily. [facility] Nitrofurant oin&Nit. Macrocryst 100 mg capsule 12-13 00:00: 00 Yes [id number] 100mg Take 1 capsule by mouth 2 (two) times daily. [facility] Nitrofurant oin&Nit. Macrocryst 100 mg capsule 12-13 00:00: 00 Yes [id number] 100mg Take 1 capsule by mouth 2 (two) times daily. [facility] Nitrofurant oin&Nit. Macrocryst 100 mg capsule 2022-0 12-13 00:00: 00 Yes [id number] 100mg Take 1 capsule by mouth 2 (two) times daily. [facility] Nitrofurant oin&Nit. Macrocryst 100 mg capsule 2022-0 12-13 00:00: 00 Yes [id number] 100mg Take 1 capsule by mouth 2 (two) times daily. [facility] Nitrofurant oin&Nit. Macrocryst 100 mg capsule 2022-0 12-13 00:00: 00 Yes [id number] 100mg Take 1 capsule by mouth 2 (two) times daily. [facility] Nitrofurant oin&Nit. Macrocryst 100 mg capsule 2022-0 12-13 00:00: 00 Yes [id number] 100mg Take 1 capsule by mouth 2 (two) times daily. [facility] Nitrofurant oin&Nit. Macrocryst 100 mg capsule 2022-0 12-13 00:00: 00 Yes [id number] 100mg Take 1 capsule by mouth 2 (two) times daily. [facility] Nitrofurant oin&Nit. Macrocryst 100 mg capsule 2022-0 12-13 00:00: 00 Yes [id number] 100mg Take 1 capsule by mouth 2 (two) times daily. [facility] Nitrofurant oin&Nit. Macrocryst 100 mg capsule 2022-0 12-13 00:00: 00 Yes [id number] 100mg Take 1 capsule by mouth 2 (two) times daily. [facility] Nitrofurant oin&Nit. Macrocryst 100 mg capsule 3-0 07 00:00: 00 Yes [id number] 100mg Take 1 capsule by mouth 2 (two) times daily. [facility] Nitrofurant oin&Nit. Macrocryst 100 mg capsule 3-0 07 00:00: 00 Yes [id number] 100mg Take 1 capsule by mouth 2 (two) times daily. [facility] Nitrofurant oin&Nit. Macrocryst 100 mg capsule 2022-0 07 00:00: 00 Yes [id number] 100mg Take 1 capsule by mouth 2 (two) times daily. [facility] Nitrofurant oin&Nit. Macrocryst 100 mg capsule 2022-0 12-13 00:00: 00 Yes [id number] 100mg Take 1 capsule by mouth 2 (two) times daily. [facility] Nitrofurant oin&Nit. Macrocryst 100 mg capsule 2022-0 07 00:00: 00 Yes [id number] 100mg Take 1 capsule by mouth 2 (two) times daily. [facility] Nitrofurant oin&Nit. Macrocryst 100 mg capsule 2022-0 12-13 00:00: 00 Yes [id number] 100mg Take 1 capsule by mouth 2 (two) times daily. [facility] Nitrofurant oin&Nit. Macrocryst 100 mg capsule 2022-0 12-13 00:00: 00 Yes [id number] 100mg Take 1 capsule by mouth 2 (two) times daily. [facility] Nitrofurant oin&Nit. Macrocryst 100 mg capsule 2022-0 12-13 00:00: 00 Yes [id number] 100mg Take 1 capsule by mouth 2 (two) times daily. [facility] Nitrofurant oin&Nit. Macrocryst 100 mg capsule 2022-0 12-13 00:00: 00 Yes [id number] 100mg Take 1 capsule by mouth 2 (two) times daily. [facility] Nitrofurant oin&Nit. Macrocryst 100 mg capsule 2022-0 12-13 00:00: 00 Yes [id number] 100mg Take 1 capsule by mouth 2 (two) times daily. [facility] Nitrofurant oin&Nit. Macrocryst 100 mg capsule 2022-0 12-13 00:00: 00 Yes [id number] 100mg Take 1 capsule by mouth 2 (two) times daily. [facility] Nitrofurant oin&Nit. Macrocryst 100 mg capsule 3-0 07 00:00: 00 Yes [id number] 100mg Take 1 capsule by mouth 2 (two) times daily. [facility] Nitrofurant oin&Nit. Macrocryst 100 mg capsule 12-13 00:00: 00 Yes [id number] 100mg Take 1 capsule by mouth 2 (two) times daily. [facility] Nitrofurant oin&Nit. Macrocryst 100 mg capsule 12-13 00:00: 00 Yes [id number] 100mg Take 1 capsule by mouth 2 (two) times daily. [facility] Nitrofurant oin&Nit. Macrocryst 100 mg capsule 12-13 00:00: 00 Yes [id number] 100mg Take 1 capsule by mouth 2 (two) times daily. [facility] Nitrofurant oin&Nit. Macrocryst 100 mg capsule 12-13 00:00: 00 01-21 00:00 :00 No [id number] 100mg Take 1 capsule by mouth 2 (two) times daily. [facility] Nitrofurant oin&Nit. Macrocryst 100 mg capsule 12-13 00:00: 00 01-21 00:00 :00 No [id number] 100mg Take 1 capsule by mouth 2 (two) times daily. [facility] bevacizumab -bvzr (ZIRABEV) 500 mg in NaCl 0.9% (NS) 100 mL infusion 12-03 17:15: 00 12-03 19:00 :00 No [id number] 7.5mg/k g 500 mg (rounded from 536.25 mg = 7.5 mg/kg ?71.5 kg Treatment plan Recorded weight), IV Infusion, ONCE, Administer over 30 Minutes, On Mireya 12/03/22 at 1215, For 1 dose
Sh ould be diluted in 0.9% Sodium Chloride, not D5W. May store diluted solution in refrigerat or for up to 8 hours.&nbs p;Infuse 1st infusion over 90 minutes; 2nd infusion for 60 minutes; subsequent infusions over 30 minutes if well tolerated.
[facility] NaCl 0.9% (NS) IV infusion 1,000 mL 12-03 17:15: 00 12-03 18:06 :00 No [id number] 1000mL at 1,000 mL/hr, IV Infusion, ONCE, 1 dose, On Wed12/03/22 at 1215, Routine [facility] iron sucrose (VENOFER) 200 mg in NaCl 0.9% (NS) 100 mL infusion 12-03 17:15: 00 12-03 18:10 :00 No [id number] 200mg 200 mg, IV Infusion, ONCE, Administer over 60 Minutes, On Wed12/03/22 at 1215, For 1 dose [facility] heparin lock flush (HEPARIN LOCKFLUSH(P ORCINE)(PF) ) 100 unit/mL injection 500 Units 12-03 17:03: 50 12-04 17:02 :50 No [id number] 500U 500 Units, IV Push, PRN, Starting on Wed12/03/22 at 1203, Until Wed12/04/22 at 1202, Routine [facility] gabapentin 300 mg capsule 12-03 00:00: 00 Yes [id number] 600mg Take 2 capsules by mouth at bedtime. [facility] gabapentin 300 mg capsule 12-03 00:00: 00 Yes [id number] 600mg Take 2 capsules by mouth at bedtime. [facility] capecitabin e 500 mg tablet 12-03 00:00: 00 Yes [id number] 1000mg Take 2 tablets by mouth 2 (two) times daily. Take 2 tablets in the morning and 2 tablets in the evening for 14 days. Then 7 days off . Take within 30 minutes of finishing a meal. [facility] gabapentin 300 mg capsule 12-03 00:00: 00 Yes [id number] 600mg Take 2 capsules by mouth at bedtime. [facility] capecitabin e 500 mg tablet 12-03 00:00: 00 Yes [id number] 1000mg Take 2 tablets by mouth 2 (two) times daily. Take 2 tablets in the morning and 2 tablets in the evening for 14 days. Then 7 days off . Take within 30 minutes of finishing a meal. [facility] gabapentin 300 mg capsule 3-0 27 00:00: 00 Yes [id number] 600mg Take 2 capsules by mouth at bedtime. [facility] capecitabin e 500 mg tablet 3-0 27 00:00: 00 Yes [id number] 1000mg Take 2 tablets by mouth 2 (two) times daily. Take 2 tablets in the morning and 2 tablets in the evening for 14 days. Then 7 days off . Take within 30 minutes of finishing a meal. [facility] gabapentin 300 mg capsule 3-0 27 00:00: 00 Yes [id number] 600mg Take 2 capsules by mouth at bedtime. [facility] capecitabin e 500 mg tablet 3-0 12-03 00:00: 00 Yes [id number] 1000mg Take 2 tablets by mouth 2 (two) times daily. Take 2 tablets in the morning and 2 tablets in the evening for 14 days. Then 7 days off . Take within 30 minutes of finishing a meal. [facility] gabapentin 300 mg capsule 3-0 12-03 00:00: 00 Yes [id number] 600mg Take 2 capsules by mouth at bedtime. [facility] capecitabin e 500 mg tablet 3-0 12-03 00:00: 00 Yes [id number] 1000mg Take 2 tablets by mouth 2 (two) times daily. Take 2 tablets in the morning and 2 tablets in the evening for 14 days. Then 7 days off . Take within 30 minutes of finishing a meal. [facility] gabapentin 300 mg capsule 3-0 27 00:00: 00 Yes [id number] 600mg Take 2 capsules by mouth at bedtime. [facility] capecitabin e 500 mg tablet 3-0 27 00:00: 00 Yes [id number] 1000mg Take 2 tablets by mouth 2 (two) times daily. Take 2 tablets in the morning and 2 tablets in the evening for 14 days. Then 7 days off . Take within 30 minutes of finishing a meal. [facility] gabapentin 300 mg capsule 3-0 27 00:00: 00 Yes [id number] 600mg Take 2 capsules by mouth at bedtime. [facility] capecitabin e 500 mg tablet 3-0 27 00:00: 00 Yes [id number] 1000mg Take 2 tablets by mouth 2 (two) times daily. Take 2 tablets in the morning and 2 tablets in the evening for 14 days. Then 7 days off . Take within 30 minutes of finishing a meal. [facility] gabapentin 300 mg capsule 3-0 27 00:00: 00 Yes [id number] 600mg Take 2 capsules by mouth at bedtime. [facility] capecitabin e 500 mg tablet 3-0 27 00:00: 00 Yes [id number] 1000mg Take 2 tablets by mouth 2 (two) times daily. Take 2 tablets in the morning and 2 tablets in the evening for 14 days. Then 7 days off . Take within 30 minutes of finishing a meal. [facility] gabapentin 300 mg capsule 3-0 27 00:00: 00 Yes [id number] 600mg Take 2 capsules by mouth at bedtime. [facility] capecitabin e 500 mg tablet 3-0 12-03 00:00: 00 Yes [id number] 1000mg Take 2 tablets by mouth 2 (two) times daily. Take 2 tablets in the morning and 2 tablets in the evening for 14 days. Then 7 days off . Take within 30 minutes of finishing a meal. [facility] gabapentin 300 mg capsule 3-0 27 00:00: 00 Yes [id number] 600mg Take 2 capsules by mouth at bedtime. [facility] capecitabin e 500 mg tablet 3-0 27 00:00: 00 Yes [id number] 1000mg Take 2 tablets by mouth 2 (two) times daily. Take 2 tablets in the morning and 2 tablets in the evening for 14 days. Then 7 days off . Take within 30 minutes of finishing a meal. [facility] gabapentin 300 mg capsule 3-0 27 00:00: 00 Yes [id number] 600mg Take 2 capsules by mouth at bedtime. [facility] capecitabin e 500 mg tablet 3-0 27 00:00: 00 Yes [id number] 1000mg Take 2 tablets by mouth 2 (two) times daily. Take 2 tablets in the morning and 2 tablets in the evening for 14 days. Then 7 days off . Take within 30 minutes of finishing a meal. [facility] gabapentin 300 mg capsule 3-0 27 00:00: 00 Yes [id number] 600mg Take 2 capsules by mouth at bedtime. [facility] capecitabin e 500 mg tablet 3-0 27 00:00: 00 Yes [id number] 1000mg Take 2 tablets by mouth 2 (two) times daily. Take 2 tablets in the morning and 2 tablets in the evening for 14 days. Then 7 days off . Take within 30 minutes of finishing a meal. [facility] gabapentin 300 mg capsule 3-0 27 00:00: 00 Yes [id number] 600mg Take 2 capsules by mouth at bedtime. [facility] capecitabin e 500 mg tablet 3-0 12-03 00:00: 00 Yes [id number] 1000mg Take 2 tablets by mouth 2 (two) times daily. Take 2 tablets in the morning and 2 tablets in the evening for 14 days. Then 7 days off . Take within 30 minutes of finishing a meal. [facility] gabapentin 300 mg capsule 3-0 27 00:00: 00 Yes [id number] 600mg Take 2 capsules by mouth at bedtime. [facility] capecitabin e 500 mg tablet 3-0 27 00:00: 00 Yes [id number] 1000mg Take 2 tablets by mouth 2 (two) times daily. Take 2 tablets in the morning and 2 tablets in the evening for 14 days. Then 7 days off . Take within 30 minutes of finishing a meal. [facility] gabapentin 300 mg capsule 3-0 27 00:00: 00 Yes [id number] 600mg Take 2 capsules by mouth at bedtime. [facility] capecitabin e 500 mg tablet 3-0 27 00:00: 00 Yes [id number] 1000mg Take 2 tablets by mouth 2 (two) times daily. Take 2 tablets in the morning and 2 tablets in the evening for 14 days. Then 7 days off . Take within 30 minutes of finishing a meal. [facility] gabapentin 300 mg capsule 3-0 27 00:00: 00 Yes [id number] 600mg Take 2 capsules by mouth at bedtime. [facility] capecitabin e 500 mg tablet 3-0 27 00:00: 00 Yes [id number] 1000mg Take 2 tablets by mouth 2 (two) times daily. Take 2 tablets in the morning and 2 tablets in the evening for 14 days. Then 7 days off . Take within 30 minutes of finishing a meal. [facility] gabapentin 300 mg capsule 3-0 27 00:00: 00 Yes [id number] 600mg Take 2 capsules by mouth at bedtime. [facility] capecitabin e 500 mg tablet 3-0 12-03 00:00: 00 Yes [id number] 1000mg Take 2 tablets by mouth 2 (two) times daily. Take 2 tablets in the morning and 2 tablets in the evening for 14 days. Then 7 days off . Take within 30 minutes of finishing a meal. [facility] gabapentin 300 mg capsule 3-0 27 00:00: 00 Yes [id number] 600mg Take 2 capsules by mouth at bedtime. [facility] capecitabin e 500 mg tablet 3-0 12-03 00:00: 00 Yes [id number] 1000mg Take 2 tablets by mouth 2 (two) times daily. Take 2 tablets in the morning and 2 tablets in the evening for 14 days. Then 7 days off . Take within 30 minutes of finishing a meal. [facility] gabapentin 300 mg capsule 3-0 27 00:00: 00 Yes [id number] 600mg Take 2 capsules by mouth at bedtime. [facility] capecitabin e 500 mg tablet 3-0 27 00:00: 00 Yes [id number] 1000mg Take 2 tablets by mouth 2 (two) times daily. Take 2 tablets in the morning and 2 tablets in the evening for 14 days. Then 7 days off . Take within 30 minutes of finishing a meal. [facility] gabapentin 300 mg capsule 2023-0 27 00:00: 00 Yes [id number] 600mg Take 2 capsules by mouth at bedtime. [facility] capecitabin e 500 mg tablet 3-0 27 00:00: 00 Yes [id number] 1000mg Take 2 tablets by mouth 2 (two) times daily. Take 2 tablets in the morning and 2 tablets in the evening for 14 days. Then 7 days off . Take within 30 minutes of finishing a meal. [facility] gabapentin 300 mg capsule 2023-0 427 00:00: 00 Yes [id number] 600mg Take 2 capsules by mouth at bedtime. [facility] capecitabin e 500 mg tablet 3-0 27 00:00: 00 Yes [id number] 1000mg Take 2 tablets by mouth 2 (two) times daily. Take 2 tablets in the morning and 2 tablets in the evening for 14 days. Then 7 days off . Take within 30 minutes of finishing a meal. [facility] gabapentin 300 mg capsule 3-0 27 00:00: 00 Yes [id number] 600mg Take 2 capsules by mouth at bedtime. [facility] capecitabin e 500 mg tablet 3-0 27 00:00: 00 Yes [id number] 1000mg Take 2 tablets by mouth 2 (two) times daily. Take 2 tablets in the morning and 2 tablets in the evening for 14 days. Then 7 days off . Take within 30 minutes of finishing a meal. [facility] gabapentin 300 mg capsule 3-0 27 00:00: 00 Yes [id number] 600mg Take 2 capsules by mouth at bedtime. [facility] capecitabin e 500 mg tablet 3-0 27 00:00: 00 Yes [id number] 1000mg Take 2 tablets by mouth 2 (two) times daily. Take 2 tablets in the morning and 2 tablets in the evening for 14 days. Then 7 days off . Take within 30 minutes of finishing a meal. [facility] gabapentin 300 mg capsule 3-0 4-27 00:00: 00 Yes [id number] 600mg Take 2 capsules by mouth at bedtime. [facility] capecitabin e 500 mg tablet 2023-0 4-27 00:00: 00 Yes [id number] 1000mg Take 2 tablets by mouth 2 (two) times daily. Take 2 tablets in the morning and 2 tablets in the evening for 14 days. Then 7 days off . Take within 30 minutes of finishing a meal. [facility] gabapentin 300 mg capsule 2023-0 4-27 00:00: 00 Yes [id number] 600mg Take 2 capsules by mouth at bedtime. [facility] capecitabin e 500 mg tablet 3-0 27 00:00: 00 Yes [id number] 1000mg Take 2 tablets by mouth 2 (two) times daily. Take 2 tablets in the morning and 2 tablets in the evening for 14 days. Then 7 days off . Take within 30 minutes of finishing a meal. [facility] gabapentin 300 mg capsule 3-0 4-27 00:00: 00 Yes [id number] 600mg Take 2 capsules by mouth at bedtime. [facility] capecitabin e 500 mg tablet 3-0 27 00:00: 00 Yes [id number] 1000mg Take 2 tablets by mouth 2 (two) times daily. Take 2 tablets in the morning and 2 tablets in the evening for 14 days. Then 7 days off . Take within 30 minutes of finishing a meal. [facility] gabapentin 300 mg capsule 3-0 27 00:00: 00 Yes [id number] 600mg Take 2 capsules by mouth at bedtime. [facility] capecitabin e 500 mg tablet 3-0 27 00:00: 00 Yes [id number] 1000mg Take 2 tablets by mouth 2 (two) times daily. Take 2 tablets in the morning and 2 tablets in the evening for 14 days. Then 7 days off . Take within 30 minutes of finishing a meal. [facility] gabapentin 300 mg capsule 2023-0 4-27 00:00: 00 Yes [id number] 600mg Take 2 capsules by mouth at bedtime. [facility] capecitabin e 500 mg tablet 3-0 4-27 00:00: 00 Yes [id number] 1000mg Take 2 tablets by mouth 2 (two) times daily. Take 2 tablets in the morning and 2 tablets in the evening for 14 days. Then 7 days off . Take within 30 minutes of finishing a meal. [facility] gabapentin 300 mg capsule 2023-0 27 00:00: 00 Yes [id number] 600mg Take 2 capsules by mouth at bedtime. [facility] capecitabin e 500 mg tablet 3-0 27 00:00: 00 Yes [id number] 1000mg Take 2 tablets by mouth 2 (two) times daily. Take 2 tablets in the morning and 2 tablets in the evening for 14 days. Then 7 days off . Take within 30 minutes of finishing a meal. [facility] gabapentin 300 mg capsule 2023-0 27 00:00: 00 Yes [id number] 600mg Take 2 capsules by mouth at bedtime. [facility] capecitabin e 500 mg tablet 3-0 27 00:00: 00 Yes [id number] 1000mg Take 2 tablets by mouth 2 (two) times daily. Take 2 tablets in the morning and 2 tablets in the evening for 14 days. Then 7 days off . Take within 30 minutes of finishing a meal. [facility] gabapentin 300 mg capsule 3-0 27 00:00: 00 Yes [id number] 600mg Take 2 capsules by mouth at bedtime. [facility] capecitabin e 500 mg tablet 3-0 27 00:00: 00 Yes [id number] 1000mg Take 2 tablets by mouth 2 (two) times daily. Take 2 tablets in the morning and 2 tablets in the evening for 14 days. Then 7 days off . Take within 30 minutes of finishing a meal. [facility] gabapentin 300 mg capsule 3-0 27 00:00: 00 Yes [id number] 600mg Take 2 capsules by mouth at bedtime. [facility] capecitabin e 500 mg tablet 3-0 27 00:00: 00 Yes [id number] 1000mg Take 2 tablets by mouth 2 (two) times daily. Take 2 tablets in the morning and 2 tablets in the evening for 14 days. Then 7 days off . Take within 30 minutes of finishing a meal. [facility] gabapentin 300 mg capsule 2023-0 4-27 00:00: 00 Yes [id number] 600mg Take 2 capsules by mouth at bedtime. [facility] capecitabin e 500 mg tablet 3-0 427 00:00: 00 Yes [id number] 1000mg Take 2 tablets by mouth 2 (two) times daily. Take 2 tablets in the morning and 2 tablets in the evening for 14 days. Then 7 days off . Take within 30 minutes of finishing a meal. [facility] gabapentin 300 mg capsule 2023-0 4-27 00:00: 00 Yes [id number] 600mg Take 2 capsules by mouth at bedtime. [facility] capecitabin e 500 mg tablet 3-0 4-27 00:00: 00 Yes [id number] 1000mg Take 2 tablets by mouth 2 (two) times daily. Take 2 tablets in the morning and 2 tablets in the evening for 14 days. Then 7 days off . Take within 30 minutes of finishing a meal. [facility] gabapentin 300 mg capsule 3-0 4-27 00:00: 00 Yes [id number] 600mg Take 2 capsules by mouth at bedtime. [facility] capecitabin e 500 mg tablet 3-0 27 00:00: 00 Yes [id number] 1000mg Take 2 tablets by mouth 2 (two) times daily. Take 2 tablets in the morning and 2 tablets in the evening for 14 days. Then 7 days off . Take within 30 minutes of finishing a meal. [facility] gabapentin 300 mg capsule 3-0 27 00:00: 00 Yes [id number] 600mg Take 2 capsules by mouth at bedtime. [facility] capecitabin e 500 mg tablet 3-0 27 00:00: 00 Yes [id number] 1000mg Take 2 tablets by mouth 2 (two) times daily. Take 2 tablets in the morning and 2 tablets in the evening for 14 days. Then 7 days off . Take within 30 minutes of finishing a meal. [facility] gabapentin 300 mg capsule 2023-0 4-27 00:00: 00 Yes [id number] 600mg Take 2 capsules by mouth at bedtime. [facility] capecitabin e 500 mg tablet 2023-0 4-27 00:00: 00 Yes [id number] 1000mg Take 2 tablets by mouth 2 (two) times daily. Take 2 tablets in the morning and 2 tablets in the evening for 14 days. Then 7 days off . Take within 30 minutes of finishing a meal. [facility] gabapentin 300 mg capsule 2023-0 427 00:00: 00 Yes [id number] 600mg Take 2 capsules by mouth at bedtime. [facility] capecitabin e 500 mg tablet 3-0 427 00:00: 00 Yes [id number] 1000mg Take 2 tablets by mouth 2 (two) times daily. Take 2 tablets in the morning and 2 tablets in the evening for 14 days. Then 7 days off . Take within 30 minutes of finishing a meal. [facility] gabapentin 300 mg capsule 2023-0 4-27 00:00: 00 Yes [id number] 600mg Take 2 capsules by mouth at bedtime. [facility] capecitabin e 500 mg tablet 3-0 427 00:00: 00 Yes [id number] 1000mg Take 2 tablets by mouth 2 (two) times daily. Take 2 tablets in the morning and 2 tablets in the evening for 14 days. Then 7 days off . Take within 30 minutes of finishing a meal. [facility] gabapentin 300 mg capsule 2023-0 27 00:00: 00 Yes [id number] 600mg Take 2 capsules by mouth at bedtime. [facility] capecitabin e 500 mg tablet 3-0 27 00:00: 00 Yes [id number] 1000mg Take 2 tablets by mouth 2 (two) times daily. Take 2 tablets in the morning and 2 tablets in the evening for 14 days. Then 7 days off . Take within 30 minutes of finishing a meal. [facility] gabapentin 300 mg capsule 2023-0 427 00:00: 00 Yes [id number] 600mg Take 2 capsules by mouth at bedtime. [facility] capecitabin e 500 mg tablet 2023-0 4-27 00:00: 00 Yes [id number] 1000mg Take 2 tablets by mouth 2 (two) times daily. Take 2 tablets in the morning and 2 tablets in the evening for 14 days. Then 7 days off . Take within 30 minutes of finishing a meal. [facility] gabapentin 300 mg capsule 2023-0 27 00:00: 00 Yes [id number] 600mg Take 2 capsules by mouth at bedtime. [facility] capecitabin e 500 mg tablet 3-0 27 00:00: 00 Yes [id number] 1000mg Take 2 tablets by mouth 2 (two) times daily. Take 2 tablets in the morning and 2 tablets in the evening for 14 days. Then 7 days off . Take within 30 minutes of finishing a meal. [facility] gabapentin 300 mg capsule 3-0 27 00:00: 00 Yes [id number] 600mg Take 2 capsules by mouth at bedtime. [facility] capecitabin e 500 mg tablet 3-0 12-03 00:00: 00 Yes [id number] 1000mg Take 2 tablets by mouth 2 (two) times daily. Take 2 tablets in the morning and 2 tablets in the evening for 14 days. Then 7 days off . Take within 30 minutes of finishing a meal. [facility] gabapentin 300 mg capsule 3-0 12-03 00:00: 00 Yes [id number] 600mg Take 2 capsules by mouth at bedtime. [facility] capecitabin e 500 mg tablet 3-0 12-03 00:00: 00 Yes [id number] 1000mg Take 2 tablets by mouth 2 (two) times daily. Take 2 tablets in the morning and 2 tablets in the evening for 14 days. Then 7 days off . Take within 30 minutes of finishing a meal. [facility] gabapentin 300 mg capsule 3-0 27 00:00: 00 Yes [id number] 600mg Take 2 capsules by mouth at bedtime. [facility] capecitabin e 500 mg tablet 3-0 27 00:00: 00 Yes [id number] 1000mg Take 2 tablets by mouth 2 (two) times daily. Take 2 tablets in the morning and 2 tablets in the evening for 14 days. Then 7 days off . Take within 30 minutes of finishing a meal. [facility] gabapentin 300 mg capsule 3-0 27 00:00: 00 Yes [id number] 600mg Take 2 capsules by mouth at bedtime. [facility] capecitabin e 500 mg tablet 3-0 27 00:00: 00 Yes [id number] 1000mg Take 2 tablets by mouth 2 (two) times daily. Take 2 tablets in the morning and 2 tablets in the evening for 14 days. Then 7 days off . Take within 30 minutes of finishing a meal. [facility] gabapentin 300 mg capsule 3-0 427 00:00: 00 Yes [id number] 600mg Take 2 capsules by mouth at bedtime. [facility] capecitabin e 500 mg tablet 3-0 27 00:00: 00 Yes [id number] 1000mg Take 2 tablets by mouth 2 (two) times daily. Take 2 tablets in the morning and 2 tablets in the evening for 14 days. Then 7 days off . Take within 30 minutes of finishing a meal. [facility] gabapentin 300 mg capsule 3-0 27 00:00: 00 Yes [id number] 600mg Take 2 capsules by mouth at bedtime. [facility] capecitabin e 500 mg tablet 3-0 27 00:00: 00 Yes [id number] 1000mg Take 2 tablets by mouth 2 (two) times daily. Take 2 tablets in the morning and 2 tablets in the evening for 14 days. Then 7 days off . Take within 30 minutes of finishing a meal. [facility] gabapentin 300 mg capsule 3-0 27 00:00: 00 Yes [id number] 600mg Take 2 capsules by mouth at bedtime. [facility] capecitabin e 500 mg tablet 3-0 27 00:00: 00 Yes [id number] 1000mg Take 2 tablets by mouth 2 (two) times daily. Take 2 tablets in the morning and 2 tablets in the evening for 14 days. Then 7 days off . Take within 30 minutes of finishing a meal. [facility] gabapentin 300 mg capsule 3-0 27 00:00: 00 Yes [id number] 600mg Take 2 capsules by mouth at bedtime. [facility] capecitabin e 500 mg tablet 3-0 27 00:00: 00 Yes [id number] 1000mg Take 2 tablets by mouth 2 (two) times daily. Take 2 tablets in the morning and 2 tablets in the evening for 14 days. Then 7 days off . Take within 30 minutes of finishing a meal. [facility] gabapentin 300 mg capsule 2023-0 4-27 00:00: 00 Yes [id number] 600mg Take 2 capsules by mouth at bedtime. [facility] capecitabin e 500 mg tablet 3-0 4-27 00:00: 00 Yes [id number] 1000mg Take 2 tablets by mouth 2 (two) times daily. Take 2 tablets in the morning and 2 tablets in the evening for 14 days. Then 7 days off . Take within 30 minutes of finishing a meal. [facility] gabapentin 300 mg capsule 2023-0 4-27 00:00: 00 Yes [id number] 600mg Take 2 capsules by mouth at bedtime. [facility] capecitabin e 500 mg tablet 3-0 4-27 00:00: 00 Yes [id number] 1000mg Take 2 tablets by mouth 2 (two) times daily. Take 2 tablets in the morning and 2 tablets in the evening for 14 days. Then 7 days off . Take within 30 minutes of finishing a meal. [facility] gabapentin 300 mg capsule 2023-0 427 00:00: 00 Yes [id number] 600mg Take 2 capsules by mouth at bedtime. [facility] capecitabin e 500 mg tablet 3-0 427 00:00: 00 Yes [id number] 1000mg Take 2 tablets by mouth 2 (two) times daily. Take 2 tablets in the morning and 2 tablets in the evening for 14 days. Then 7 days off . Take within 30 minutes of finishing a meal. [facility] gabapentin 300 mg capsule 2023-0 4-27 00:00: 00 Yes [id number] 600mg Take 2 capsules by mouth at bedtime. [facility] capecitabin e 500 mg tablet 2023-0 4-27 00:00: 00 Yes [id number] 1000mg Take 2 tablets by mouth 2 (two) times daily. Take 2 tablets in the morning and 2 tablets in the evening for 14 days. Then 7 days off . Take within 30 minutes of finishing a meal. [facility] gabapentin 300 mg capsule 2023-0 4-27 00:00: 00 Yes [id number] 600mg Take 2 capsules by mouth at bedtime. [facility] capecitabin e 500 mg tablet 3-0 27 00:00: 00 Yes [id number] 1000mg Take 2 tablets by mouth 2 (two) times daily. Take 2 tablets in the morning and 2 tablets in the evening for 14 days. Then 7 days off . Take within 30 minutes of finishing a meal. [facility] gabapentin 300 mg capsule 3-0 427 00:00: 00 Yes [id number] 600mg Take 2 capsules by mouth at bedtime. [facility] capecitabin e 500 mg tablet 3-0 27 00:00: 00 Yes [id number] 1000mg Take 2 tablets by mouth 2 (two) times daily. Take 2 tablets in the morning and 2 tablets in the evening for 14 days. Then 7 days off . Take within 30 minutes of finishing a meal. [facility] gabapentin 300 mg capsule 3-0 27 00:00: 00 Yes [id number] 600mg Take 2 capsules by mouth at bedtime. [facility] capecitabin e 500 mg tablet 3-0 27 00:00: 00 Yes [id number] 1000mg Take 2 tablets by mouth 2 (two) times daily. Take 2 tablets in the morning and 2 tablets in the evening for 14 days. Then 7 days off . Take within 30 minutes of finishing a meal. [facility] gabapentin 300 mg capsule 3-0 27 00:00: 00 Yes [id number] 600mg Take 2 capsules by mouth at bedtime. [facility] capecitabin e 500 mg tablet 3-0 27 00:00: 00 Yes [id number] 1000mg Take 2 tablets by mouth 2 (two) times daily. Take 2 tablets in the morning and 2 tablets in the evening for 14 days. Then 7 days off . Take within 30 minutes of finishing a meal. [facility] gabapentin 300 mg capsule 2023-0 4-27 00:00: 00 Yes [id number] 600mg Take 2 capsules by mouth at bedtime. [facility] capecitabin e 500 mg tablet 2023-0 27 00:00: 00 Yes [id number] 1000mg Take 2 tablets by mouth 2 (two) times daily. Take 2 tablets in the morning and 2 tablets in the evening for 14 days. Then 7 days off . Take within 30 minutes of finishing a meal. [facility] gabapentin 300 mg capsule 3-0 27 00:00: 00 Yes [id number] 600mg Take 2 capsules by mouth at bedtime. [facility] capecitabin e 500 mg tablet 3-0 27 00:00: 00 Yes [id number] 1000mg Take 2 tablets by mouth 2 (two) times daily. Take 2 tablets in the morning and 2 tablets in the evening for 14 days. Then 7 days off . Take within 30 minutes of finishing a meal. [facility] gabapentin 300 mg capsule 3-0 12-03 00:00: 00 Yes [id number] 600mg Take 2 capsules by mouth at bedtime. [facility] capecitabin e 500 mg tablet 3-0 12-03 00:00: 00 Yes [id number] 1000mg Take 2 tablets by mouth 2 (two) times daily. Take 2 tablets in the morning and 2 tablets in the evening for 14 days. Then 7 days off . Take within 30 minutes of finishing a meal. [facility] gabapentin 300 mg capsule 3-0 27 00:00: 00 Yes [id number] 600mg Take 2 capsules by mouth at bedtime. [facility] capecitabin e 500 mg tablet 3-0 27 00:00: 00 Yes [id number] 1000mg Take 2 tablets by mouth 2 (two) times daily. Take 2 tablets in the morning and 2 tablets in the evening for 14 days. Then 7 days off . Take within 30 minutes of finishing a meal. [facility] gabapentin 300 mg capsule 3-0 27 00:00: 00 Yes [id number] 600mg Take 2 capsules by mouth at bedtime. [facility] capecitabin e 500 mg tablet 3-0 27 00:00: 00 Yes [id number] 1000mg Take 2 tablets by mouth 2 (two) times daily. Take 2 tablets in the morning and 2 tablets in the evening for 14 days. Then 7 days off . Take within 30 minutes of finishing a meal. [facility] gabapentin 300 mg capsule 2023-0 427 00:00: 00 Yes [id number] 600mg Take 2 capsules by mouth at bedtime. [facility] capecitabin e 500 mg tablet 3-0 4-27 00:00: 00 Yes [id number] 1000mg Take 2 tablets by mouth 2 (two) times daily. Take 2 tablets in the morning and 2 tablets in the evening for 14 days. Then 7 days off . Take within 30 minutes of finishing a meal. [facility] gabapentin 300 mg capsule 2023-0 4-27 00:00: 00 Yes [id number] 600mg Take 2 capsules by mouth at bedtime. [facility] capecitabin e 500 mg tablet 3-0 27 00:00: 00 Yes [id number] 1000mg Take 2 tablets by mouth 2 (two) times daily. Take 2 tablets in the morning and 2 tablets in the evening for 14 days. Then 7 days off . Take within 30 minutes of finishing a meal. [facility] gabapentin 300 mg capsule 3-0 27 00:00: 00 Yes [id number] 600mg Take 2 capsules by mouth at bedtime. [facility] capecitabin e 500 mg tablet 3-0 27 00:00: 00 Yes [id number] 1000mg Take 2 tablets by mouth 2 (two) times daily. Take 2 tablets in the morning and 2 tablets in the evening for 14 days. Then 7 days off . Take within 30 minutes of finishing a meal. [facility] gabapentin 300 mg capsule 2023-0 427 00:00: 00 Yes [id number] 600mg Take 2 capsules by mouth at bedtime. [facility] capecitabin e 500 mg tablet 3-0 -27 00:00: 00 Yes [id number] 1000mg Take 2 tablets by mouth 2 (two) times daily. Take 2 tablets in the morning and 2 tablets in the evening for 14 days. Then 7 days off . Take within 30 minutes of finishing a meal. [facility] gabapentin 300 mg capsule 2023-0 4-27 00:00: 00 Yes [id number] 600mg Take 2 capsules by mouth at bedtime. [facility] capecitabin e 500 mg tablet 3-0 12-03 00:00: 00 Yes [id number] 1000mg Take 2 tablets by mouth 2 (two) times daily. Take 2 tablets in the morning and 2 tablets in the evening for 14 days. Then 7 days off . Take within 30 minutes of finishing a meal. [facility] gabapentin 300 mg capsule 3-0 12-03 00:00: 00 Yes [id number] 600mg Take 2 capsules by mouth at bedtime. [facility] capecitabin e 500 mg tablet 3-0 12-03 00:00: 00 Yes [id number] 1000mg Take 2 tablets by mouth 2 (two) times daily. Take 2 tablets in the morning and 2 tablets in the evening for 14 days. Then 7 days off . Take within 30 minutes of finishing a meal. [facility] gabapentin 300 mg capsule 3-0 12-03 00:00: 00 Yes [id number] 600mg Take 2 capsules by mouth at bedtime. [facility] capecitabin e 500 mg tablet 3-0 12-03 00:00: 00 Yes [id number] 1000mg Take 2 tablets by mouth 2 (two) times daily. Take 2 tablets in the morning and 2 tablets in the evening for 14 days. Then 7 days off . Take within 30 minutes of finishing a meal. [facility] gabapentin 300 mg capsule 3-0 12-03 00:00: 00 Yes [id number] 600mg Take 2 capsules by mouth at bedtime. [facility] capecitabin e 500 mg tablet 3-0 12-03 00:00: 00 Yes [id number] 1000mg Take 2 tablets by mouth 2 (two) times daily. Take 2 tablets in the morning and 2 tablets in the evening for 14 days. Then 7 days off . Take within 30 minutes of finishing a meal. [facility] gabapentin 300 mg capsule 3-0 27 00:00: 00 Yes [id number] 600mg Take 2 capsules by mouth at bedtime. [facility] capecitabin e 500 mg tablet 3-0 4-27 00:00: 00 Yes [id number] 1000mg Take 2 tablets by mouth 2 (two) times daily. Take 2 tablets in the morning and 2 tablets in the evening for 14 days. Then 7 days off . Take within 30 minutes of finishing a meal. [facility] gabapentin 300 mg capsule 2023-0 27 00:00: 00 Yes [id number] 600mg Take 2 capsules by mouth at bedtime. [facility] capecit[facility] 500 mg tablet 3-0 12-03 00:00: 00 Yes [id number] 1000mg Take 2 tablets by mouth 2 (two) times daily. Take 2 tablets in the morning and 2 tablets in the evening for 14 days. Then 7 days off . Take within 30 minutes of finishing a meal. [facility] gabapentin 300 mg capsule 3-0 12-03 00:00: 00 Yes [id number] 600mg Take 2 capsules by mouth at bedtime. [facility] capecitabin e 500 mg tablet 3-0 12-03 00:00: 00 Yes [id number] 1000mg Take 2 tablets by mouth 2 (two) times daily. Take 2 tablets in the morning and 2 tablets in the evening for 14 days. Then 7 days off . Take within 30 minutes of finishing a meal. [facility] gabapentin 300 mg capsule 3-0 27 00:00: 00 Yes [id number] 600mg Take 2 capsules by mouth at bedtime. [facility] capecitabin e 500 mg tablet 3-0 27 00:00: 00 Yes [id number] 1000mg Take 2 tablets by mouth 2 (two) times daily. Take 2 tablets in the morning and 2 tablets in the evening for 14 days. Then 7 days off . Take within 30 minutes of finishing a meal. [facility] gabapentin 300 mg capsule 3-0 27 00:00: 00 Yes [id number] 600mg Take 2 capsules by mouth at bedtime. [facility] capecitabin e 500 mg tablet 3-0 27 00:00: 00 Yes [id number] 1000mg Take 2 tablets by mouth 2 (two) times daily. Take 2 tablets in the morning and 2 tablets in the evening for 14 days. Then 7 days off . Take within 30 minutes of finishing a meal. [facility] gabapentin 300 mg capsule 3-0 27 00:00: 00 Yes [id number] 600mg Take 2 capsules by mouth at bedtime. [facility] capecitabin e 500 mg tablet 3-0 27 00:00: 00 Yes [id number] 1000mg Take 2 tablets by mouth 2 (two) times daily. Take 2 tablets in the morning and 2 tablets in the evening for 14 days. Then 7 days off . Take within 30 minutes of finishing a meal. [facility] gabapentin 300 mg capsule 3-0 27 00:00: 00 Yes [id number] 600mg Take 2 capsules by mouth at bedtime. [facility] capecitabin e 500 mg tablet 3-0 12-03 00:00: 00 Yes [id number] 1000mg Take 2 tablets by mouth 2 (two) times daily. Take 2 tablets in the morning and 2 tablets in the evening for 14 days. Then 7 days off . Take within 30 minutes of finishing a meal. [facility] gabapentin 300 mg capsule 3-0 27 00:00: 00 Yes [id number] 600mg Take 2 capsules by mouth at bedtime. [facility] capecitabin e 500 mg tablet 3-0 27 00:00: 00 Yes [id number] 1000mg Take 2 tablets by mouth 2 (two) times daily. Take 2 tablets in the morning and 2 tablets in the evening for 14 days. Then 7 days off . Take within 30 minutes of finishing a meal. [facility] gabapentin 300 mg capsule 3-0 27 00:00: 00 Yes [id number] 600mg Take 2 capsules by mouth at bedtime. [facility] capecitabin e 500 mg tablet 3-0 27 00:00: 00 Yes [id number] 1000mg Take 2 tablets by mouth 2 (two) times daily. Take 2 tablets in the morning and 2 tablets in the evening for 14 days. Then 7 days off . Take within 30 minutes of finishing a meal. [facility] gabapentin 300 mg capsule 2023-0 27 00:00: 00 Yes [id number] 600mg Take 2 capsules by mouth at bedtime. [facility] gabapentin 300 mg capsule 2023-0 27 00:00: 00 Yes [id number] 600mg Take 2 capsules by mouth at bedtime. [facility] gabapentin 300 mg capsule 2023-0 27 00:00: 00 Yes [id number] 600mg Take 2 capsules by mouth at bedtime. [facility] gabapentin 300 mg capsule 2023-0 27 00:00: 00 Yes [id number] 600mg Take 2 capsules by mouth at bedtime. [facility] gabapentin 300 mg capsule 2023-0 27 00:00: 00 Yes [id number] 600mg Take 2 capsules by mouth at bedtime. [facility] gabapentin 300 mg capsule 3-0 27 00:00: 00 Yes [id number] 600mg Take 2 capsules by mouth at bedtime. [facility] gabapentin 300 mg capsule 2023-0 27 00:00: 00 Yes [id number] 600mg Take 2 capsules by mouth at bedtime. [facility] gabapentin 300 mg capsule 3-0 27 00:00: 00 Yes [id number] 600mg Take 2 capsules by mouth at bedtime. [facility] gabapentin 300 mg capsule 3-0 27 00:00: 00 Yes [id number] 600mg Take 2 capsules by mouth at bedtime. [facility] gabapentin 300 mg capsule 3-0 27 00:00: 00 Yes [id number] 600mg Take 2 capsules by mouth at bedtime. [facility] gabapentin 300 mg capsule 2023-0 27 00:00: 00 Yes [id number] 600mg Take 2 capsules by mouth at bedtime. [facility] gabapentin 300 mg capsule 3-0 27 00:00: 00 Yes [id number] 600mg Take 2 capsules by mouth at bedtime. [facility] gabapentin 300 mg capsule 2023-0 427 00:00: 00 Yes [id number] 600mg Take 2 capsules by mouth at bedtime. [facility] gabapentin 300 mg capsule 2023-0 27 00:00: 00 Yes [id number] 600mg Take 2 capsules by mouth at bedtime. [facility] gabapentin 300 mg capsule 3-0 427 00:00: 00 Yes [id number] 600mg Take 2 capsules by mouth at bedtime. [facility] gabapentin 300 mg capsule 2023-0 427 00:00: 00 Yes [id number] 600mg Take 2 capsules by mouth at bedtime. [facility] gabapentin 300 mg capsule 2023-0 27 00:00: 00 Yes [id number] 600mg Take 2 capsules by mouth at bedtime. [facility] gabapentin 300 mg capsule 3-0 27 00:00: 00 Yes [id number] 600mg Take 2 capsules by mouth at bedtime. [facility] gabapentin 300 mg capsule 2023-0 27 00:00: 00 Yes [id number] 600mg Take 2 capsules by mouth at bedtime. [facility] gabapentin 300 mg capsule 3-0 27 00:00: 00 Yes [id number] 600mg Take 2 capsules by mouth at bedtime. [facility] gabapentin 300 mg capsule 3-0 27 00:00: 00 Yes [id number] 600mg Take 2 capsules by mouth at bedtime. [facility] gabapentin 300 mg capsule 3-0 27 00:00: 00 Yes [id number] 600mg Take 2 capsules by mouth at bedtime. [facility] gabapentin 300 mg capsule 3-0 27 00:00: 00 Yes [id number] 600mg Take 2 capsules by mouth at bedtime. [facility] gabapentin 300 mg capsule 3-0 27 00:00: 00 Yes [id number] 600mg Take 2 capsules by mouth at bedtime. [facility] gabapentin 300 mg capsule 3-0 27 00:00: 00 05-21 00:00 :00 No [id number] 600mg Take 2 capsules by mouth at bedtime. [facility] capecitabin e 500 mg tablet 2022-0 27 00:00: 00 2023- 08-25 00:00 :00 No [id number] 1000mg Take 2 tablets by mouth 2 (two) times daily. Take 2 tablets in the morning and 2 tablets in the evening for 14 days. Then 7 days off . Take within 30 minutes of finishing a meal. [facility] famotidine (PEPCID AC) tablet 20 mg 11-24 14:00: 00 Yes 20mg 20 mg, Oral, DAILY, First dose (after last modificati on) on Wed11/24/22 at 0900, Until Discontinu ed, Routine [facility] famotidine (PEPCID AC) tablet 20 mg 11-24 14:00: 00 11-24 21:19 :14 No 20mg 20 mg, Oral, DAILY, First dose (after last modificati on) on Wed11/24/22 at 0900, Until Discontinu ed, Routine [facility] famotidine (PEPCID AC) tablet 20 mg 11-24 14:00: 00 11-24 21:19 :14 No 20mg 20 mg, Oral, DAILY, First dose (after last modificati on) on Wed11/24/22 at 0900, Until Discontinu ed, Routine [facility] midazolam (VERSED) injection 11-23 22:39: 37 11-23 23:25 :52 No ONCE INTRA PROCEDURE, Starting on Wed11/23/22 at 1739, Until Wed11/23/22 at 1825, Routine, CV Intraproce dure [facility] midazolam (VERSED) injection 11-23 22:39: 37 11-23 23:25 :52 No ONCE INTRA PROCEDURE, Starting on Wed11/23/22 at 1739, Until Wed11/23/22 at 1825, Routine, CV Intraproce dure [facility] FENTanyl PF (SUBLIMAZE (PF)) injection 11-23 22:39: 31 11-23 23:25 :52 No ONCE INTRA PROCEDURE, Starting on Wed11/23/22 at 1739, Until Wed11/23/22 at 1825, Routine, CV Intraproce dure [facility] FENTanyl PF (SUBLIMAZE (PF)) injection 11-23 22:39: 31 11-23 23:25 :52 No ONCE INTRA PROCEDURE, Starting on Wed11/23/22 at 1739, Until Wed11/23/22 at 1825, Routine, CV Intraproce dure [facility] lidocaine 1% (PF) (XYLOCAINE) injection 11-23 22:37: 43 11-23 23:25 :52 No ONCE INTRA PROCEDURE, Starting on Wed11/23/22 at 1737, Until Wed11/23/22 at 1825, Routine, CV Intraproce dure [facility] lidocaine 1% (PF) (XYLOCAINE) injection 11-23 22:37: 43 11-23 23:25 :52 No ONCE INTRA PROCEDURE, Starting on Wed11/23/22 at 1737, Until Wed11/23/22 at 1825, Routine, CV Intraproce dure [facility] ceFAZolin (ANCEF) injection 11-23 22:35: 54 11-23 23:25 :52 No ONCE INTRA PROCEDURE, Starting on Wed11/23/22 at 1735, Until Wed11/23/22 at 1825, JAY, CV Intraproce dure [facility] ceFAZolin (ANCEF) injection 11-23 22:35: 54 11-23 23:25 :52 No ONCE INTRA PROCEDURE, Starting on Wed11/23/22 at 1735, Until Wed11/23/22 at 1825, JAY, CV Intraproce dure [facility] NaCl 0.9% (NS) IV infusion 1,000 mL 11-22 15:45: 00 Yes 1000mL at 50 mL/hr, IV Infusion, CONTINUOUS , Starting on Wed11/22/22 at 1045, Until Discontinu ed, Routine [facility] NaCl 0.9% (NS) IV infusion 1,000 mL 11-22 15:45: 00 11-24 21:19 :14 No 1000mL at 50 mL/hr, IV Infusion, CONTINUOUS , Starting on Wed11/22/22 at 1045, Until e 11/24/22 at 1619, Routine [facility] NaCl 0.9% (NS) IV infusion 1,000 mL 11-22 15:45: 00 11-24 21:19 :14 No 1000mL at 50 mL/hr, IV Infusion, CONTINUOUS , Starting on Wed11/22/22 at 1045, Until Wed11/24/22 at 1619, Routine [facility] hydralAZINE (APRESOLINE ) injection 10 mg 11-22 03:15: 00 11-22 02:37 :00 No 10mg 10 mg, Slow IV Push, ONCE, 1 dose, On [facility] 11/21/22 at 2215, STAT [facility] tamsulosin (FLOMAX) capsule 0.4 mg 11-21 14:00: 00 Yes .4mg 0.4 mg, Oral, DAILY, First dose on [facility] 11/21/22 at 0900, Until Discontinu ed, Routine [facility] finasteride (PROSCAR) tablet 5 mg 11-21 14:00: 00 Yes 5mg 5 mg, Oral, DAILY, First dose on [facility] 11/21/22 at 0900, Until Discontinu ed, Routine [facility] tamsulosin (FLOMAX) capsule 0.4 mg 11-21 14:00: 00 11-24 21:19 :14 No .4mg 0.4 mg, Oral, DAILY, First dose on [facility] 11/21/22 at 0900, Until Discontinu ed, Routine [facility] finasteride (PROSCAR) tablet 5 mg 11-21 14:00: 00 11-24 21:19 :14 No 5mg 5 mg, Oral, DAILY, First dose on [facility] 11/21/22 at 0900, Until Discontinu ed, Routine [facility] tamsulosin (FLOMAX) capsule 0.4 mg 11-21 14:00: 00 11-24 21:19 :14 No .4mg 0.4 mg, Oral, DAILY, First dose on 4/15/23 at 0900, Until Discontinu ed, Routine [facility] finasteride (PROSCAR) tablet 5 mg 11-21 14:00: 00 11-24 21:19 :14 No 5mg 5 mg, Oral, DAILY, First dose on Wed11/21/22 at 0900, Until Discontinu ed, Routine [facility] rosuvastati n (CRESTOR) tablet 40 mg 11-21 02:00: 00 Yes 40mg 40 mg, Oral, QHS, First dose on Wed11/20/22 at 2100, Until Discontinu ed, Routine [facility] rosuvastati n (CRESTOR) tablet 40 mg 11-21 02:00: 00 11-24 21:19 :14 No 40mg 40 mg, Oral, QHS, First dose on Wed11/20/22 at 2100, Until Discontinu ed, Routine [facility] rosuvastati n (CRESTOR) tablet 40 mg 11-21 02:00: 00 11-24 21:19 :14 No 40mg 40 mg, Oral, QHS, First dose on Wed11/20/22 at 2100, Until Discontinu ed, Routine [facility] gabapentin (NEURONTIN) capsule 600 mg 11-21 01:00: 00 Yes 600mg 600 mg, Oral, BID, First dose on Wed11/20/22 at 2000, Until Discontinu ed, Routine [facility] gabapentin (NEURONTIN) capsule 600 mg 11-21 01:00: 00 11-24 21:19 :14 No 600mg 600 mg, Oral, BID, First dose on Wed11/20/22 at 2000, Until Discontinu ed, Routine [facility] gabapentin (NEURONTIN) capsule 600 mg 11-21 01:00: 00 11-24 21:19 :14 No 600mg 600 mg, Oral, BID, First dose on Wed11/20/22 at 2000, Until Discontinu ed, Routine [facility] famotidine (PEPCID AC) tablet 20 mg 11-21 01:00: 00 11-23 18:11 :40 No 20mg 20 mg, Oral, BID, First dose on Wed11/20/22 at 2000, Until Discontinu ed, Routine [facility] enoxaparin (LOVENOX) injection 40 mg 11-20 22:00: 00 11-22 13:17 :29 No 40mg 40 mg, Subcutaneo us, DAILY, First dose on Wed11/20/22 at 1700, Until Discontinu ed, Routine [facility] NaCl 0.9% (NS) IV infusion 1,000 mL 11-20 21:30: 00 11-22 15:31 :33 No 1000mL at 125 mL/hr, IV Infusion, CONTINUOUS , Starting on Wed11/20/22 at 1630, Until Wed11/22/22 at 1031, Routine [facility] dextrose 10% (D10W) bolus infusion 250 mL 11-20 21:22: 01 Yes 250mL 250 mL, IV Infusion, PRN - SEE INSTRUCTIO NS, Administer over 60 Minutes, Other, If blood glucose is < or = 70 mg/dL and patient is unable to swallow or has mental status changes, Starting on Wed11/20/22 at 1622
If blood glucose is < or = 70 mg/dL and patient is unable to swallow or has mental status changes (Give glucagon order if patient needs fluid restrictio n): IF IV access available: Dextrose 10%. 1. 125 mL (? bag) of D10W IV infusion - equivalent to 12.5 g dextrose 2. Blood glucose - draw blood glucose 15 minutes after D10W Administra tion. 3. If blood glucose is < 80 mg/dL, repeat.
[facility] dextrose 10% (D10W) bolus infusion 250 mL 11-20 21:22: 01 11-24 21:19 :14 No 250mL 250 mL, IV Infusion, PRN - SEE INSTRUCTIO NS, Administer over 60 Minutes, Other, If blood glucose is < or = 70 mg/dL and patient is unable to swallow or has mental status changes, Starting on Wed11/20/22 at 1622
If blood glucose is < or = 70 mg/dL and patient is unable to swallow or has mental status changes (Give glucagon order if patient needs fluid restrictio n): IF IV access available: Dextrose 10%. 1. 125 mL (? bag) of D10W IV infusion - equivalent to 12.5 g dextrose 2. Blood glucose - draw blood glucose 15 minutes after D10W Administra tion. 3. If blood glucose is < 80 mg/dL, repeat.
[facility] dextrose 10% (D10W) bolus infusion 250 mL 11-20 21:22: 01 11-24 21:19 :14 No 250mL 250 mL, IV Infusion, PRN - SEE INSTRUCTIO NS, Administer over 60 Minutes, Other, If blood glucose is < or = 70 mg/dL and patient is unable to swallow or has mental status changes, Starting on Wed11/20/22 at 1622
If blood glucose is < or = 70 mg/dL and patient is unable to swallow or has mental status changes (Give glucagon order if patient needs fluid restrictio n): IF IV access available: Dextrose 10%. 1. 125 mL (? bag) of D10W IV infusion - equivalent to 12.5 g dextrose 2. Blood glucose - draw blood glucose 15 minutes after D10W Administra tion. 3. If blood glucose is < 80 mg/dL, repeat.
[facility] glucagon (GLUCAGEN DIAGNOSTIC KIT) injection 1 mg 11-20 21:21: 59 Yes 1mg 1 mg, Intramuscu lar, PRN, Starting on Wed11/20/22 at 1621, Until Discontinu ed, JAY, Blood Glucose < or = 70 mg/dL and patient is NPO, unable to swallow or has mental changes. [facility] glucagon (GLUCAGEN DIAGNOSTIC KIT) injection 1 mg 11-20 21:21: 59 11-24 21:19 :14 No 1mg 1 mg, Intramuscu lar, PRN, Starting on Wed11/20/22 at 1621, Until Wed11/24/22 at 1619, JAY, Blood Glucose < or = 70 mg/dL and patient is NPO, unable to swallow or has mental changes. [facility] glucagon (GLUCAGEN DIAGNOSTIC KIT) injection 1 mg 2022-11-20 21:21: 59 11-24 21:19 :14 No 1mg 1 mg, Intramuscu lar, PRN, Starting on Wed11/20/22 at 1621, Until Wed11/24/22 at 1619, JAY, Blood Glucose < or = 70 mg/dL and patient is NPO, unable to swallow or has mental changes. [facility] loperamide (IMODIUM A-D) capsule 2 mg 2022-11-20 21:21: 21 Yes 2mg 2 mg, Oral, Q4HPRN, Starting on Wed11/20/22 at 1621, Until Discontinu ed, Routine, Diarrhea [facility] loperamide (IMODIUM A-D) capsule 2 mg 2022-0 11-20 21:21: 21 11-24 21:19 :14 No 2mg 2 mg, Oral, Q4HPRN, Starting on Wed11/20/22 at 1621, Until Wed11/24/22 at 1619, Routine, Diarrhea [facility] loperamide (IMODIUM A-D) capsule 2 mg 2022-11-20 21:21: 21 11-24 21:19 :14 No 2mg 2 mg, Oral, Q4HPRN, Starting on Wed11/20/22 at 1621, Until Wed11/24/22 at 1619, Routine, Diarrhea [facility] ondansetron (ZOFRAN (PF)) injection 4 mg 2022-0 11-20 21:17: 54 Yes 4mg 4 mg, Slow IV Push, Q6HPRN, Starting on Wed11/20/22 at 1617, Until Discontinu ed, Routine, Nausea and Vomiting (N/V) [facility] ondansetron (ZOFRAN (PF)) injection 4 mg 2022-0 11-20 21:17: 54 11-24 21:19 :14 No 4mg 4 mg, Slow IV Push, Q6HPRN, Starting on Wed11/20/22 at 1617, Until Wed11/24/22 at 1619, Routine, Nausea and Vomiting (N/V) [facility] ondansetron (ZOFRAN (PF)) injection 4 mg 11-20 21:17: 54 11-24 21:19 :14 No 4mg 4 mg, Slow IV Push, Q6HPRN, Starting on Wed11/20/22 at 1617, Until Wed11/24/22 at 1619, Routine, Nausea and Vomiting (N/V) [facility] acetaminoph en (TYLENOL) tablet 650 mg 11-20 21:17: 37 Yes 650mg 650 mg, Oral, Q6HPRN, Starting on Wed11/20/22 at 1617, Until Discontinu ed, Routine, Pain (scale 1-3) [facility] acetaminoph en (TYLENOL) tablet 650 mg 11-20 21:17: 37 11-24 21:19 :14 No 650mg 650 mg, Oral, Q6HPRN, Starting on Wed11/20/22 at 1617, Until Wed11/24/22 at 1619, Routine, Pain (scale 1-3) [facility] acetaminoph en (TYLENOL) tablet 650 mg 11-20 21:17: 37 11-24 21:19 :14 No 650mg 650 mg, Oral, Q6HPRN, Starting on Wed11/20/22 at 1617, Until Wed11/24/22 at 1619, Routine, Pain (scale 1-3) [facility] NaCl 0.9% (NS) bolus infusion 1,000 mL 11-20 15:15: 00 11-20 15:35 :00 No 1000mL at 999 mL/hr, 1,000 mL, IV Infusion, ONCE, 1 dose, On Wed11/20/22 at 1015, JAY [facility] tamsulosin 0.4 mg 24 hr capsule 11-20 00:00: 00 Yes [id number] 9102 .4mg Take 1 capsule by mouth daily. [facility] gabapentin 300 mg capsule 11-20 00:00: 00 Yes [id number] 600mg Take 2 capsules by mouth 2 (two) times daily. [facility] Diclofenac Sodium (VOLTAREN) 1 % gel 11-20 00:00: 00 Yes [id number] Apply to area(s) 4 (four) times daily. [facility] meclizine 25 mg tablet 11-20 00:00: 00 Yes [id number] 25mg Take 1 tablet by mouth 3 (three) times daily as needed for Dizziness. [facility] lisinopriL 2.5 mg tablet 11-20 00:00: 00 Yes [id number] 2.5mg Take 1 tablet by mouth daily. [facility] rosuvastati n 40 mg tablet 11-20 00:00: 00 Yes [id number] 40mg Take 1 tablet by mouth at bedtime. [facility] pioglitazon e-metformin 15-850 mg per tablet 11-20 00:00: 00 Yes [id number] .5{tbl} Take 0.5 tablets by mouth 2 (two) times daily with meals. [facility] Food Supplement, Lactose-Otis e (ENSURE HIGH PROTEIN) liquid 11-20 00:00: 00 Yes [id number] 1{can} Take 1 Can by mouth 3 (three) times daily with meals and at bedtime. [facility] tamsulosin 0.4 mg 24 hr capsule 11-20 00:00: 00 Yes [id number] 9102 .4mg Take 1 capsule by mouth daily. [facility] gabapentin 300 mg capsule 11-20 00:00: 00 Yes [id number] 600mg Take 2 capsules by mouth 2 (two) times daily. [facility] Diclofenac Sodium (VOLTAREN) 1 % gel 11-20 00:00: 00 Yes [id number] Apply to area(s) 4 (four) times daily. [facility] meclizine 25 mg tablet 11-20 00:00: 00 Yes [id number] 25mg Take 1 tablet by mouth 3 (three) times daily as needed for Dizziness. [facility] lisinopriL 2.5 mg tablet 11-20 00:00: 00 Yes [id number] 2.5mg Take 1 tablet by mouth daily. [facility] rosuvastati n 40 mg tablet 11-20 00:00: 00 Yes [id number] 40mg Take 1 tablet by mouth at bedtime. [facility] pioglitazon e-metformin 15-850 mg per tablet 11-20 00:00: 00 Yes [id number] .5{tbl} Take 0.5 tablets by mouth 2 (two) times daily with meals. [facility] Food Supplement, Lactose-Otis e (ENSURE HIGH PROTEIN) liquid 11-20 00:00: 00 Yes [id number] 1{can} Take 1 Can by mouth 3 (three) times daily with meals and at bedtime. [facility] tamsulosin 0.4 mg 24 hr capsule 11-20 00:00: 00 Yes [id number] 9102 .4mg Take 1 capsule by mouth daily. [facility] gabapentin 300 mg capsule 11-20 00:00: 00 Yes [id number] 600mg Take 2 capsules by mouth 2 (two) times daily. [facility] Diclofenac Sodium (VOLTAREN) 1 % gel 11-20 00:00: 00 Yes [id number] Apply to area(s) 4 (four) times daily. [facility] meclizine 25 mg tablet 11-20 00:00: 00 Yes [id number] 25mg Take 1 tablet by mouth 3 (three) times daily as needed for Dizziness. [facility] lisinopriL 2.5 mg tablet 11-20 00:00: 00 Yes [id number] 2.5mg Take 1 tablet by mouth daily. [facility] rosuvastati n 40 mg tablet 11-20 00:00: 00 Yes [id number] 40mg Take 1 tablet by mouth at bedtime. [facility] pioglitazon e-metformin 15-850 mg per tablet 11-20 00:00: 00 Yes [id number] .5{tbl} Take 0.5 tablets by mouth 2 (two) times daily with meals. [facility] Food Supplement, Lactose-Otis e (ENSURE HIGH PROTEIN) liquid 11-20 00:00: 00 Yes [id number] 1{can} Take 1 Can by mouth 3 (three) times daily with meals and at bedtime. [facility] tamsulosin 0.4 mg 24 hr capsule 11-20 00:00: 00 Yes [id number] 9102 .4mg Take 1 capsule by mouth daily. [facility] gabapentin 300 mg capsule 11-20 00:00: 00 Yes [id number] 600mg Take 2 capsules by mouth 2 (two) times daily. [facility] Diclofenac Sodium (VOLTAREN) 1 % gel 11-20 00:00: 00 Yes [id number] Apply to area(s) 4 (four) times daily. [facility] meclizine 25 mg tablet 11-20 00:00: 00 Yes [id number] 25mg Take 1 tablet by mouth 3 (three) times daily as needed for Dizziness. [facility] lisinopriL 2.5 mg tablet 11-20 00:00: 00 Yes [id number] 2.5mg Take 1 tablet by mouth daily. [facility] rosuvastati n 40 mg tablet 11-20 00:00: 00 Yes [id number] 40mg Take 1 tablet by mouth at bedtime. [facility] pioglitazon e-metformin 15-850 mg per tablet 11-20 00:00: 00 Yes [id number] .5{tbl} Take 0.5 tablets by mouth 2 (two) times daily with meals. [facility] Food Supplement, Lactose-Otis e (ENSURE HIGH PROTEIN) liquid 11-20 00:00: 00 Yes [id number] 1{can} Take 1 Can by mouth 3 (three) times daily with meals and at bedtime. [facility] tamsulosin 0.4 mg 24 hr capsule 11-20 00:00: 00 Yes [id number] 9102 .4mg Take 1 capsule by mouth daily. [facility] gabapentin 300 mg capsule 11-20 00:00: 00 Yes [id number] 600mg Take 2 capsules by mouth 2 (two) times daily. [facility] Diclofenac Sodium (VOLTAREN) 1 % gel 11-20 00:00: 00 Yes [id number] Apply to area(s) 4 (four) times daily. [facility] meclizine 25 mg tablet 11-20 00:00: 00 Yes [id number] 25mg Take 1 tablet by mouth 3 (three) times daily as needed for Dizziness. [facility] lisinopriL 2.5 mg tablet 11-20 00:00: 00 Yes [id number] 2.5mg Take 1 tablet by mouth daily. [facility] rosuvastati n 40 mg tablet 11-20 00:00: 00 Yes [id number] 40mg Take 1 tablet by mouth at bedtime. [facility] pioglitazon e-metformin 15-850 mg per tablet 11-20 00:00: 00 Yes [id number] .5{tbl} Take 0.5 tablets by mouth 2 (two) times daily with meals. [facility] Food Supplement, Lactose-Otis e (ENSURE HIGH PROTEIN) liquid 11-20 00:00: 00 Yes [id number] 1{can} Take 1 Can by mouth 3 (three) times daily with meals and at bedtime. [facility] tamsulosin 0.4 mg 24 hr capsule 11-20 00:00: 00 Yes [id number] 9102 .4mg Take 1 capsule by mouth daily. [facility] gabapentin 300 mg capsule 11-20 00:00: 00 Yes [id number] 600mg Take 2 capsules by mouth 2 (two) times daily. [facility] Diclofenac Sodium (VOLTAREN) 1 % gel 11-20 00:00: 00 Yes [id number] Apply to area(s) 4 (four) times daily. [facility] meclizine 25 mg tablet 11-20 00:00: 00 Yes [id number] 25mg Take 1 tablet by mouth 3 (three) times daily as needed for Dizziness. [facility] lisinopriL 2.5 mg tablet 11-20 00:00: 00 Yes [id number] 2.5mg Take 1 tablet by mouth daily. [facility] rosuvastati n 40 mg tablet 11-20 00:00: 00 Yes [id number] 40mg Take 1 tablet by mouth at bedtime. [facility] pioglitazon e-metformin 15-850 mg per tablet 11-20 00:00: 00 Yes [id number] .5{tbl} Take 0.5 tablets by mouth 2 (two) times daily with meals. [facility] Food Supplement, Lactose-Otis e (ENSURE HIGH PROTEIN) liquid 11-20 00:00: 00 Yes [id number] 1{can} Take 1 Can by mouth 3 (three) times daily with meals and at bedtime. [facility] tamsulosin 0.4 mg 24 hr capsule 11-20 00:00: 00 Yes [id number] 9102 .4mg Take 1 capsule by mouth daily. [facility] gabapentin 300 mg capsule 11-20 00:00: 00 Yes [id number] 600mg Take 2 capsules by mouth 2 (two) times daily. [facility] Diclofenac Sodium (VOLTAREN) 1 % gel 11-20 00:00: 00 Yes [id number] Apply to area(s) 4 (four) times daily. [facility] meclizine 25 mg tablet 11-20 00:00: 00 Yes [id number] 25mg Take 1 tablet by mouth 3 (three) times daily as needed for Dizziness. [facility] lisinopriL 2.5 mg tablet 11-20 00:00: 00 Yes [id number] 2.5mg Take 1 tablet by mouth daily. [facility] rosuvastati n 40 mg tablet 11-20 00:00: 00 Yes [id number] 40mg Take 1 tablet by mouth at bedtime. [facility] pioglitazon e-metformin 15-850 mg per tablet 11-20 00:00: 00 Yes [id number] .5{tbl} Take 0.5 tablets by mouth 2 (two) times daily with meals. [facility] Food Supplement, Lactose-Otis e (ENSURE HIGH PROTEIN) liquid 11-20 00:00: 00 Yes [id number] 1{can} Take 1 Can by mouth 3 (three) times daily with meals and at bedtime. [facility] tamsulosin 0.4 mg 24 hr capsule 11-20 00:00: 00 Yes [id number] 9102 .4mg Take 1 capsule by mouth daily. [facility] [facility] gab[facility] 300 mg capsule 11-20 00:00: 00 Yes [id number] 600mg Take 2 capsules by mouth 2 (two) times daily. [facility] Diclofenac Sodium (VOLTAREN) 1 % gel 11-20 00:00: 00 Yes [id number] Apply to area(s) 4 (four) times daily. [facility] meclizine 25 mg tablet 11-20 00:00: 00 Yes [id number] 25mg Take 1 tablet by mouth 3 (three) times daily as needed for Dizziness. [facility] lisinopriL 2.5 mg tablet 11-20 00:00: 00 Yes [id number] 2.5mg Take 1 tablet by mouth daily. [facility] rosuvastati n 40 mg tablet 11-20 00:00: 00 Yes [id number] 40mg Take 1 tablet by mouth at bedtime. [facility] pioglitazon e-metformin 15-850 mg per tablet 11-20 00:00: 00 Yes [id number] .5{tbl} Take 0.5 tablets by mouth 2 (two) times daily with meals. [facility] Food Supplement, Lactose-Otis e (ENSURE HIGH PROTEIN) liquid 11-20 00:00: 00 Yes [id number] 1{can} Take 1 Can by mouth 3 (three) times daily with meals and at bedtime. [facility] tamsulosin 0.4 mg 24 hr capsule 11-20 00:00: 00 Yes [id number] 9102 .4mg Take 1 capsule by mouth daily. [facility] gabapentin 300 mg capsule 11-20 00:00: 00 Yes [id number] 600mg Take 2 capsules by mouth 2 (two) times daily. [facility] Diclofenac Sodium (VOLTAREN) 1 % gel 11-20 00:00: 00 Yes [id number] Apply to area(s) 4 (four) times daily. [facility] meclizine 25 mg tablet 11-20 00:00: 00 Yes [id number] 25mg Take 1 tablet by mouth 3 (three) times daily as needed for Dizziness. [facility] lisinopriL 2.5 mg tablet 11-20 00:00: 00 Yes [id number] 2.5mg Take 1 tablet by mouth daily. [facility] rosuvastati n 40 mg tablet 11-20 00:00: 00 Yes [id number] 40mg Take 1 tablet by mouth at bedtime. [facility] pioglitazon e-metformin 15-850 mg per tablet 11-20 00:00: 00 Yes [id number] .5{tbl} Take 0.5 tablets by mouth 2 (two) times daily with meals. [facility] Food Supplement, Lactose-Otis e (ENSURE HIGH PROTEIN) liquid 11-20 00:00: 00 Yes [id number] 1{can} Take 1 Can by mouth 3 (three) times daily with meals and at bedtime. [facility] tamsulosin 0.4 mg 24 hr capsule 11-20 00:00: 00 Yes [id number] 9102 .4mg Take 1 capsule by mouth daily. [facility] gabapentin 300 mg capsule 11-20 00:00: 00 Yes [id number] 600mg Take 2 capsules by mouth 2 (two) times daily. [facility] Diclofenac Sodium (VOLTAREN) 1 % gel 11-20 00:00: 00 Yes [id number] Apply to area(s) 4 (four) times daily. [facility] meclizine 25 mg tablet 11-20 00:00: 00 Yes [id number] 25mg Take 1 tablet by mouth 3 (three) times daily as needed for Dizziness. [facility] lisinopriL 2.5 mg tablet 11-20 00:00: 00 Yes [id number] 2.5mg Take 1 tablet by mouth daily. [facility] rosuvastati n 40 mg tablet 11-20 00:00: 00 Yes [id number] 40mg Take 1 tablet by mouth at bedtime. [facility] pioglitazon e-metformin 15-850 mg per tablet 11-20 00:00: 00 Yes [id number] .5{tbl} Take 0.5 tablets by mouth 2 (two) times daily with meals. [facility] Food Supplement, Lactose-Otis e (ENSURE HIGH PROTEIN) liquid 11-20 00:00: 00 Yes [id number] 1{can} Take 1 Can by mouth 3 (three) times daily with meals and at bedtime. [facility] tamsulosin 0.4 mg 24 hr capsule 11-20 00:00: 00 Yes [id number] 9102 .4mg Take 1 capsule by mouth daily. [facility] gabapentin 300 mg capsule 11-20 00:00: 00 Yes [id number] 600mg Take 2 capsules by mouth 2 (two) times daily. [facility] Diclofenac Sodium (VOLTAREN) 1 % gel 11-20 00:00: 00 Yes [id number] Apply to area(s) 4 (four) times daily. [facility] meclizine 25 mg tablet 11-20 00:00: 00 Yes [id number] 25mg Take 1 tablet by mouth 3 (three) times daily as needed for Dizziness. [facility] lisinopriL 2.5 mg tablet 11-20 00:00: 00 Yes [id number] 2.5mg Take 1 tablet by mouth daily. [facility] rosuvastati n 40 mg tablet 11-20 00:00: 00 Yes [id number] 40mg Take 1 tablet by mouth at bedtime. [facility] pioglitazon e-metformin 15-850 mg per tablet 11-20 00:00: 00 Yes [id number] .5{tbl} Take 0.5 tablets by mouth 2 (two) times daily with meals. [facility] Food Supplement, Lactose-Otis e (ENSURE HIGH PROTEIN) liquid 11-20 00:00: 00 Yes [id number] 1{can} Take 1 Can by mouth 3 (three) times daily with meals and at bedtime. [facility] tamsulosin 0.4 mg 24 hr capsule 11-20 00:00: 00 Yes [id number] 9102 .4mg Take 1 capsule by mouth daily. [facility] gabapentin 300 mg capsule 11-20 00:00: 00 Yes [id number] 600mg Take 2 capsules by mouth 2 (two) times daily. [facility] Diclofenac Sodium (VOLTAREN) 1 % gel 11-20 00:00: 00 Yes [id number] Apply to area(s) 4 (four) times daily. [facility] meclizine 25 mg tablet 11-20 00:00: 00 Yes [id number] 25mg Take 1 tablet by mouth 3 (three) times daily as needed for Dizziness. [facility] lisinopriL 2.5 mg tablet 11-20 00:00: 00 Yes [id number] 2.5mg Take 1 tablet by mouth daily. [facility] rosuvastati n 40 mg tablet 11-20 00:00: 00 Yes [id number] 40mg Take 1 tablet by mouth at bedtime. [facility] pioglitazon e-metformin 15-850 mg per tablet 11-20 00:00: 00 Yes [id number] .5{tbl} Take 0.5 tablets by mouth 2 (two) times daily with meals. [facility] Food Supplement, Lactose-Otis e (ENSURE HIGH PROTEIN) liquid 11-20 00:00: 00 Yes [id number] 1{can} Take 1 Can by mouth 3 (three) times daily with meals and at bedtime. [facility] tamsulosin 0.4 mg 24 hr capsule 11-20 00:00: 00 Yes [id number] 9102 .4mg Take 1 capsule by mouth daily. [facility] Diclofenac Sodium (VOLTAREN) 1 % gel 11-20 00:00: 00 Yes [id number] Apply to area(s) 4 (four) times daily. [facility] meclizine 25 mg tablet 11-20 00:00: 00 Yes [id number] 25mg Take 1 tablet by mouth 3 (three) times daily as needed for Dizziness. [facility] lisinopriL 2.5 mg tablet 11-20 00:00: 00 Yes [id number] 2.5mg Take 1 tablet by mouth daily. [facility] rosuvastati n 40 mg tablet 11-20 00:00: 00 Yes [id number] 40mg Take 1 tablet by mouth at bedtime. [facility] pioglitazon e-metformin 15-850 mg per tablet 11-20 00:00: 00 Yes [id number] .5{tbl} Take 0.5 tablets by mouth 2 (two) times daily with meals. [facility] Food Supplement, Lactose-Otis e (ENSURE HIGH PROTEIN) liquid 11-20 00:00: 00 Yes [id number] 1{can} Take 1 Can by mouth 3 (three) times daily with meals and at bedtime. [facility] tamsulosin 0.4 mg 24 hr capsule 11-20 00:00: 00 Yes [id number] 9102 .4mg Take 1 capsule by mouth daily. [facility] Diclofenac Sodium (VOLTAREN) 1 % gel 11-20 00:00: 00 Yes [id number] Apply to area(s) 4 (four) times daily. [facility] meclizine 25 mg tablet 11-20 00:00: 00 Yes [id number] 25mg Take 1 tablet by mouth 3 (three) times daily as needed for Dizziness. [facility] lisinopriL 2.5 mg tablet 11-20 00:00: 00 Yes [id number] 2.5mg Take 1 tablet by mouth daily. [facility] rosuvastati n 40 mg tablet 11-20 00:00: 00 Yes [id number] 40mg Take 1 tablet by mouth at bedtime. [facility] pioglitazon e-metformin 15-850 mg per tablet 11-20 00:00: 00 Yes [id number] .5{tbl} Take 0.5 tablets by mouth 2 (two) times daily with meals. [facility] Food Supplement, Lactose-Otis e (ENSURE HIGH PROTEIN) liquid 11-20 00:00: 00 Yes [id number] 1{can} Take 1 Can by mouth 3 (three) times daily with meals and at bedtime. [facility] tamsulosin 0.4 mg 24 hr capsule 11-20 00:00: 00 Yes [id number] 9102 .4mg Take 1 capsule by mouth daily. [facility] Diclofenac Sodium (VOLTAREN) 1 % gel 11-20 00:00: 00 Yes [id number] Apply to area(s) 4 (four) times daily. [facility] meclizine 25 mg tablet 11-20 00:00: 00 Yes [id number] 25mg Take 1 tablet by mouth 3 (three) times daily as needed for Dizziness. [facility] lisinopriL 2.5 mg tablet 11-20 00:00: 00 Yes [id number] 2.5mg Take 1 tablet by mouth daily. [facility] rosuvastati n 40 mg tablet 11-20 00:00: 00 Yes [id number] 40mg Take 1 tablet by mouth at bedtime. [facility] pioglitazon e-metformin 15-850 mg per tablet 11-20 00:00: 00 Yes [id number] .5{tbl} Take 0.5 tablets by mouth 2 (two) times daily with meals. [facility] Food Supplement, Lactose-Otis e (ENSURE HIGH PROTEIN) liquid 11-20 00:00: 00 Yes [id number] 1{can} Take 1 Can by mouth 3 (three) times daily with meals and at bedtime. [facility] tamsulosin 0.4 mg 24 hr capsule 11-20 00:00: 00 Yes [id number] 9102 .4mg Take 1 capsule by mouth daily. [facility] Diclofenac Sodium (VOLTAREN) 1 % gel 11-20 00:00: 00 Yes [id number] Apply to area(s) 4 (four) times daily. [facility] meclizine 25 mg tablet 11-20 00:00: 00 Yes [id number] 25mg Take 1 tablet by mouth 3 (three) times daily as needed for Dizziness. [facility] lisinopriL 2.5 mg tablet 11-20 00:00: 00 Yes [id number] 2.5mg Take 1 tablet by mouth daily. [facility] rosuvastati n 40 mg tablet 11-20 00:00: 00 Yes [id number] 40mg Take 1 tablet by mouth at bedtime. [facility] pioglitazon e-metformin 15-850 mg per tablet 11-20 00:00: 00 Yes [id number] .5{tbl} Take 0.5 tablets by mouth 2 (two) times daily with meals. [facility] Food Supplement, Lactose-Otis e (ENSURE HIGH PROTEIN) liquid 11-20 00:00: 00 Yes [id number] 1{can} Take 1 Can by mouth 3 (three) times daily with meals and at bedtime. [facility] tamsulosin 0.4 mg 24 hr capsule 11-20 00:00: 00 Yes [id number] 9102 .4mg Take 1 capsule by mouth daily. [facility] Diclofenac Sodium (VOLTAREN) 1 % gel 11-20 00:00: 00 Yes [id number] Apply to area(s) 4 (four) times daily. [facility] meclizine 25 mg tablet 11-20 00:00: 00 Yes [id number] 25mg Take 1 tablet by mouth 3 (three) times daily as needed for Dizziness. [facility] lisinopriL 2.5 mg tablet 11-20 00:00: 00 Yes [id number] 2.5mg Take 1 tablet by mouth daily. [facility] rosuvastati n 40 mg tablet 11-20 00:00: 00 Yes [id number] 40mg Take 1 tablet by mouth at bedtime. [facility] pioglitazon e-metformin 15-850 mg per tablet 11-20 00:00: 00 Yes [id number] .[id number]{tbl} Take 0.5 tablets by mouth 2 (two) times daily with meals. [facility] Food Supplement, Lactose-Otis e (ENSURE HIGH PROTEIN) liquid 11-20 00:00: 00 Yes [id number] 1{can} Take 1 Can by mouth 3 (three) times daily with meals and at bedtime. [facility] tamsulosin 0.4 mg 24 hr capsule 11-20 00:00: 00 Yes [id number] 9102 .4mg Take 1 capsule by mouth daily. [facility] Diclofenac Sodium (VOLTAREN) 1 % gel 11-20 00:00: 00 Yes [id number] Apply to area(s) 4 (four) times daily. [facility] meclizine 25 mg tablet 11-20 00:00: 00 Yes [id number] 25mg Take 1 tablet by mouth 3 (three) times daily as needed for Dizziness. [facility] lisinopriL 2.5 mg tablet 11-20 00:00: 00 Yes [id number] 2.5mg Take 1 tablet by mouth daily. [facility] rosuvastati n 40 mg tablet 11-20 00:00: 00 Yes [id number] 40mg Take 1 tablet by mouth at bedtime. [facility] pioglitazon e-metformin 15-850 mg per tablet 11-20 00:00: 00 Yes [id number] .[id number]{tbl} Take 0.5 tablets by mouth 2 (two) times daily with meals. [facility] Food Supplement, Lactose-Otis e (ENSURE HIGH PROTEIN) liquid 11-20 00:00: 00 Yes [id number] 1{can} Take 1 Can by mouth 3 (three) times daily with meals and at bedtime. [facility] tamsulosin 0.4 mg 24 hr capsule 11-20 00:00: 00 Yes [id number] 9102 .4mg Take 1 capsule by mouth daily. [facility] Diclofenac Sodium (VOLTAREN) 1 % gel 11-20 00:00: 00 Yes [id number] Apply to area(s) 4 (four) times daily. [facility] meclizine 25 mg tablet 11-20 00:00: 00 Yes [id number] 25mg Take 1 tablet by mouth 3 (three) times daily as needed for Dizziness. [facility] lisinopriL 2.5 mg tablet 11-20 00:00: 00 Yes [id number] 2.5mg Take 1 tablet by mouth daily. [facility] rosuvastati n 40 mg tablet 11-20 00:00: 00 Yes [id number] 40mg Take 1 tablet by mouth at bedtime. [facility] pioglitazon e-metformin 15-850 mg per tablet 11-20 00:00: 00 Yes [id number] .[id number]{tbl} Take 0.5 tablets by mouth 2 (two) times daily with meals. [facility] Food Supplement, Lactose-Otis e (ENSURE HIGH PROTEIN) liquid 11-20 00:00: 00 Yes [id number] 1{can} Take 1 Can by mouth 3 (three) times daily with meals and at bedtime. [facility] tamsulosin 0.4 mg 24 hr capsule 11-20 00:00: 00 Yes [id number] 9102 .4mg Take 1 capsule by mouth daily. [facility] Diclofenac Sodium (VOLTAREN) 1 % gel 11-20 00:00: 00 Yes [id number] Apply to area(s) 4 (four) times daily. [facility] meclizine 25 mg tablet 11-20 00:00: 00 Yes [id number] 25mg Take 1 tablet by mouth 3 (three) times daily as needed for Dizziness. [facility] lisinopriL 2.5 mg tablet 11-20 00:00: 00 Yes [id number] 2.5mg Take 1 tablet by mouth daily. [facility] rosuvastati n 40 mg tablet 11-20 00:00: 00 Yes [id number] 40mg Take 1 tablet by mouth at bedtime. [facility] pioglitazon e-metformin 15-850 mg per tablet 11-20 00:00: 00 Yes [id number] .5{tbl} Take 0.5 tablets by mouth 2 (two) times daily with meals. [facility] Food Supplement, Lactose-Otis e (ENSURE HIGH PROTEIN) liquid 11-20 00:00: 00 Yes [id number] 1{can} Take 1 Can by mouth 3 (three) times daily with meals and at bedtime. [facility] tamsulosin 0.4 mg 24 hr capsule 11-20 00:00: 00 Yes [id number] 9102 .4mg Take 1 capsule by mouth daily. [facility] Diclofenac Sodium (VOLTAREN) 1 % gel 11-20 00:00: 00 Yes [id number] Apply to area(s) 4 (four) times daily. [facility] meclizine 25 mg tablet 11-20 00:00: 00 Yes [id number] 25mg Take 1 tablet by mouth 3 (three) times daily as needed for Dizziness. [facility] lisinopriL 2.5 mg tablet 11-20 00:00: 00 Yes [id number] 2.5mg Take 1 tablet by mouth daily. [facility] rosuvastati n 40 mg tablet 11-20 00:00: 00 Yes [id number] 40mg Take 1 tablet by mouth at bedtime. [facility] pioglitazon e-metformin 15-850 mg per tablet 11-20 00:00: 00 Yes [id number] .5{tbl} Take 0.5 tablets by mouth 2 (two) times daily with meals. [facility] Food Supplement, Lactose-Otis e (ENSURE HIGH PROTEIN) liquid 11-20 00:00: 00 Yes [id number] 1{can} Take 1 Can by mouth 3 (three) times daily with meals and at bedtime. [facility] tamsulosin 0.4 mg 24 hr capsule 11-20 00:00: 00 Yes [id number] 9102 .4mg Take 1 capsule by mouth daily. [facility] Diclofenac Sodium (VOLTAREN) 1 % gel 11-20 00:00: 00 Yes [id number] Apply to area(s) 4 (four) times daily. [facility] meclizine 25 mg tablet 11-20 00:00: 00 Yes [id number] 25mg Take 1 tablet by mouth 3 (three) times daily as needed for Dizziness. [facility] lisinopriL 2.5 mg tablet 11-20 00:00: 00 Yes [id number] 2.5mg Take 1 tablet by mouth daily. [facility] rosuvastati n 40 mg tablet 11-20 00:00: 00 Yes [id number] 40mg Take 1 tablet by mouth at bedtime. [facility] pioglitazon e-metformin 15-850 mg per tablet 11-20 00:00: 00 Yes [id number] .[id number]{tbl} Take 0.5 tablets by mouth 2 (two) times daily with meals. [facility] Food Supplement, Lactose-Otis e (ENSURE HIGH PROTEIN) liquid 11-20 00:00: 00 Yes [id number] 1{can} Take 1 Can by mouth 3 (three) times daily with meals and at bedtime. [facility] tamsulosin 0.4 mg 24 hr capsule 11-20 00:00: 00 Yes [id number] 9102 .4mg Take 1 capsule by mouth daily. [facility] Diclofenac Sodium (VOLTAREN) 1 % gel 11-20 00:00: 00 Yes [id number] Apply to area(s) 4 (four) times daily. [facility] meclizine 25 mg tablet 11-20 00:00: 00 Yes [id number] 25mg Take 1 tablet by mouth 3 (three) times daily as needed for Dizziness. [facility] lisinopriL 2.5 mg tablet 11-20 00:00: 00 Yes [id number] 2.5mg Take 1 tablet by mouth daily. [facility] rosuvastati n 40 mg tablet 11-20 00:00: 00 Yes [id number] 40mg Take 1 tablet by mouth at bedtime. [facility] pioglitazon e-metformin 15-850 mg per tablet 11-20 00:00: 00 Yes [id number] .5{tbl} Take 0.5 tablets by mouth 2 (two) times daily with meals. [facility] Food Supplement, Lactose-Otis e (ENSURE HIGH PROTEIN) liquid 11-20 00:00: 00 Yes [id number] 1{can} Take 1 Can by mouth 3 (three) times daily with meals and at bedtime. [facility] tamsulosin 0.4 mg 24 hr capsule 11-20 00:00: 00 Yes [id number] 9102 .4mg Take 1 capsule by mouth daily. [facility] Diclofenac Sodium (VOLTAREN) 1 % gel 11-20 00:00: 00 Yes [id number] Apply to area(s) 4 (four) times daily. [facility] meclizine 25 mg tablet 11-20 00:00: 00 Yes [id number] 25mg Take 1 tablet by mouth 3 (three) times daily as needed for Dizziness. [facility] lisinopriL 2.5 mg tablet 11-20 00:00: 00 Yes [id number] 2.5mg Take 1 tablet by mouth daily. [facility] rosuvastati n 40 mg tablet 11-20 00:00: 00 Yes [id number] 40mg Take 1 tablet by mouth at bedtime. [facility] pioglitazon e-metformin 15-850 mg per tablet 11-20 00:00: 00 Yes [id number] .5{tbl} Take 0.5 tablets by mouth 2 (two) times daily with meals. [facility] Food Supplement, Lactose-Otis e (ENSURE HIGH PROTEIN) liquid 11-20 00:00: 00 Yes [id number] 1{can} Take 1 Can by mouth 3 (three) times daily with meals and at bedtime. [facility] tamsulosin 0.4 mg 24 hr capsule 11-20 00:00: 00 Yes [id number] 9102 .4mg Take 1 capsule by mouth daily. [facility] Diclofenac Sodium (VOLTAREN) 1 % gel 11-20 00:00: 00 Yes [id number] Apply to area(s) 4 (four) times daily. [facility] meclizine 25 mg tablet 11-20 00:00: 00 Yes [id number] 25mg Take 1 tablet by mouth 3 (three) times daily as needed for Dizziness. [facility] lisinopriL 2.5 mg tablet 11-20 00:00: 00 Yes [id number] 2.5mg Take 1 tablet by mouth daily. [facility] rosuvastati n 40 mg tablet 11-20 00:00: 00 Yes [id number] 40mg Take 1 tablet by mouth at bedtime. [facility] pioglitazon e-metformin 15-850 mg per tablet 11-20 00:00: 00 Yes [id number] .5{tbl} Take 0.5 tablets by mouth 2 (two) times daily with meals. [facility] Food Supplement, Lactose-Otis e (ENSURE HIGH PROTEIN) liquid 11-20 00:00: 00 Yes [id number] 1{can} Take 1 Can by mouth 3 (three) times daily with meals and at bedtime. [facility] tamsulosin 0.4 mg 24 hr capsule 11-20 00:00: 00 Yes [id number] 9102 .4mg Take 1 capsule by mouth daily. [facility] Diclofenac Sodium (VOLTAREN) 1 % gel 11-20 00:00: 00 Yes [id number] Apply to area(s) 4 (four) times daily. [facility] meclizine 25 mg tablet 11-20 00:00: 00 Yes [id number] 25mg Take 1 tablet by mouth 3 (three) times daily as needed for Dizziness. [facility] lisinopriL 2.5 mg tablet 11-20 00:00: 00 Yes [id number] 2.5mg Take 1 tablet by mouth daily. [facility] rosuvastati n 40 mg tablet 11-20 00:00: 00 Yes [id number] 40mg Take 1 tablet by mouth at bedtime. [facility] pioglitazon e-metformin 15-850 mg per tablet 11-20 00:00: 00 Yes [id number] .5{tbl} Take 0.5 tablets by mouth 2 (two) times daily with meals. [facility] Food Supplement, Lactose-Otis e (ENSURE HIGH PROTEIN) liquid 11-20 00:00: 00 Yes [id number] 1{can} Take 1 Can by mouth 3 (three) times daily with meals and at bedtime. [facility] tamsulosin 0.4 mg 24 hr capsule 11-20 00:00: 00 Yes [id number] 9102 .4mg Take 1 capsule by mouth daily. [facility] Diclofenac Sodium (VOLTAREN) 1 % gel 11-20 00:00: 00 Yes [id number] Apply to area(s) 4 (four) times daily. [facility] meclizine 25 mg tablet 11-20 00:00: 00 Yes [id number] 25mg Take 1 tablet by mouth 3 (three) times daily as needed for Dizziness. [facility] lisinopriL 2.5 mg tablet 11-20 00:00: 00 Yes [id number] 2.5mg Take 1 tablet by mouth daily. [facility] rosuvastati n 40 mg tablet 11-20 00:00: 00 Yes [id number] 40mg Take 1 tablet by mouth at bedtime. [facility] pioglitazon e-metformin 15-850 mg per tablet 11-20 00:00: 00 Yes [id number] .5{tbl} Take 0.5 tablets by mouth 2 (two) times daily with meals. [facility] Food Supplement, Lactose-Otis e (ENSURE HIGH PROTEIN) liquid 11-20 00:00: 00 Yes [id number] 1{can} Take 1 Can by mouth 3 (three) times daily with meals and at bedtime. [facility] tamsulosin 0.4 mg 24 hr capsule 11-20 00:00: 00 Yes [id number] 9102 .4mg Take 1 capsule by mouth daily. [facility] Diclofenac Sodium (VOLTAREN) 1 % gel 11-20 00:00: 00 Yes [id number] Apply to area(s) 4 (four) times daily. [facility] meclizine 25 mg tablet 11-20 00:00: 00 Yes [id number] 25mg Take 1 tablet by mouth 3 (three) times daily as needed for Dizziness. [facility] lisinopriL 2.5 mg tablet 11-20 00:00: 00 Yes [id number] 2.5mg Take 1 tablet by mouth daily. [facility] rosuvastati n 40 mg tablet 11-20 00:00: 00 Yes [id number] 40mg Take 1 tablet by mouth at bedtime. [facility] pioglitazon e-metformin 15-850 mg per tablet 11-20 00:00: 00 Yes [id number] .5{tbl} Take 0.5 tablets by mouth 2 (two) times daily with meals. [facility] Food Supplement, Lactose-Otis e (ENSURE HIGH PROTEIN) liquid 11-20 00:00: 00 Yes [id number] 1{can} Take 1 Can by mouth 3 (three) times daily with meals and at bedtime. [facility] tamsulosin 0.4 mg 24 hr capsule 11-20 00:00: 00 Yes [id number] 9102 .4mg Take 1 capsule by mouth daily. [facility] Diclofenac Sodium (VOLTAREN) 1 % gel 11-20 00:00: 00 Yes [id number] Apply to area(s) 4 (four) times daily. [facility] meclizine 25 mg tablet 11-20 00:00: 00 Yes [id number] 25mg Take 1 tablet by mouth 3 (three) times daily as needed for Dizziness. [facility] lisinopriL 2.5 mg tablet 11-20 00:00: 00 Yes [id number] 2.5mg Take 1 tablet by mouth daily. [facility] rosuvastati n 40 mg tablet 11-20 00:00: 00 Yes [id number] 40mg Take 1 tablet by mouth at bedtime. [facility] pioglitazon e-metformin 15-850 mg per tablet 11-20 00:00: 00 Yes [id number] .5{tbl} Take 0.5 tablets by mouth 2 (two) times daily with meals. [facility] Food Supplement, Lactose-Otis e (ENSURE HIGH PROTEIN) liquid 11-20 00:00: 00 Yes [id number] 1{can} Take 1 Can by mouth 3 (three) times daily with meals and at bedtime. [facility] tamsulosin 0.4 mg 24 hr capsule 11-20 00:00: 00 Yes [id number] 9102 .4mg Take 1 capsule by mouth daily. [facility] Diclofenac Sodium (VOLTAREN) 1 % gel 11-20 00:00: 00 Yes [id number] Apply to area(s) 4 (four) times daily. [facility] meclizine 25 mg tablet 11-20 00:00: 00 Yes [id number] 25mg Take 1 tablet by mouth 3 (three) times daily as needed for Dizziness. [facility] lisinopriL 2.5 mg tablet 11-20 00:00: 00 Yes [id number] 2.5mg Take 1 tablet by mouth daily. [facility] rosuvastati n 40 mg tablet 11-20 00:00: 00 Yes [id number] 40mg Take 1 tablet by mouth at bedtime. [facility] pioglitazon e-metformin 15-850 mg per tablet 11-20 00:00: 00 Yes [id number] .5{tbl} Take 0.5 tablets by mouth 2 (two) times daily with meals. [facility] Food Supplement, Lactose-Otis e (ENSURE HIGH PROTEIN) liquid 11-20 00:00: 00 Yes [id number] 1{can} Take 1 Can by mouth 3 (three) times daily with meals and at bedtime. [facility] tamsulosin 0.4 mg 24 hr capsule 11-20 00:00: 00 Yes [id number] 9102 .4mg Take 1 capsule by mouth daily. [facility] Diclofenac Sodium (VOLTAREN) 1 % gel 11-20 00:00: 00 Yes [id number] Apply to area(s) 4 (four) times daily. [facility] meclizine 25 mg tablet 11-20 00:00: 00 Yes [id number] 25mg Take 1 tablet by mouth 3 (three) times daily as needed for Dizziness. [facility] lisinopriL 2.5 mg tablet 11-20 00:00: 00 Yes [id number] 2.5mg Take 1 tablet by mouth daily. [facility] rosuvastati n 40 mg tablet 11-20 00:00: 00 Yes [id number] 40mg Take 1 tablet by mouth at bedtime. [facility] pioglitazon e-metformin 15-850 mg per tablet 11-20 00:00: 00 Yes [id number] .5{tbl} Take 0.5 tablets by mouth 2 (two) times daily with meals. [facility] Food Supplement, Lactose-Otis e (ENSURE HIGH PROTEIN) liquid 11-20 00:00: 00 Yes [id number] 1{can} Take 1 Can by mouth 3 (three) times daily with meals and at bedtime. [facility] tamsulosin 0.4 mg 24 hr capsule 11-20 00:00: 00 Yes [id number] 9102 .4mg Take 1 capsule by mouth daily. [facility] Diclofenac Sodium (VOLTAREN) 1 % gel 11-20 00:00: 00 Yes [id number] Apply to area(s) 4 (four) times daily. [facility] meclizine 25 mg tablet 11-20 00:00: 00 Yes [id number] 25mg Take 1 tablet by mouth 3 (three) times daily as needed for Dizziness. [facility] lisinopriL 2.5 mg tablet 11-20 00:00: 00 Yes [id number] 2.5mg Take 1 tablet by mouth daily. [facility] rosuvastati n 40 mg tablet 11-20 00:00: 00 Yes [id number] 40mg Take 1 tablet by mouth at bedtime. [facility] pioglitazon e-metformin 15-850 mg per tablet 11-20 00:00: 00 Yes [id number] .5{tbl} Take 0.5 tablets by mouth 2 (two) times daily with meals. [facility] Food Supplement, Lactose-Otis e (ENSURE HIGH PROTEIN) liquid 11-20 00:00: 00 Yes [id number] 1{can} Take 1 Can by mouth 3 (three) times daily with meals and at bedtime. [facility] tamsulosin 0.4 mg 24 hr capsule 11-20 00:00: 00 Yes [id number] 9102 .4mg Take 1 capsule by mouth daily. [facility] Diclofenac Sodium (VOLTAREN) 1 % gel 11-20 00:00: 00 Yes [id number] Apply to area(s) 4 (four) times daily. [facility] meclizine 25 mg tablet 11-20 00:00: 00 Yes [id number] 25mg Take 1 tablet by mouth 3 (three) times daily as needed for Dizziness. [facility] lisinopriL 2.5 mg tablet 11-20 00:00: 00 Yes [id number] 2.5mg Take 1 tablet by mouth daily. [facility] rosuvastati n 40 mg tablet 11-20 00:00: 00 Yes [id number] 40mg Take 1 tablet by mouth at bedtime. [facility] pioglitazon e-metformin 15-850 mg per tablet 11-20 00:00: 00 Yes [id number] .5{tbl} Take 0.5 tablets by mouth 2 (two) times daily with meals. [facility] Food Supplement, Lactose-Otis e (ENSURE HIGH PROTEIN) liquid 11-20 00:00: 00 Yes [id number] 1{can} Take 1 Can by mouth 3 (three) times daily with meals and at bedtime. [facility] tamsulosin 0.4 mg 24 hr capsule 11-20 00:00: 00 Yes [id number] 9102 .4mg Take 1 capsule by mouth daily. [facility] Diclofenac Sodium (VOLTAREN) 1 % gel 11-20 00:00: 00 Yes [id number] Apply to area(s) 4 (four) times daily. [facility] meclizine 25 mg tablet 11-20 00:00: 00 Yes [id number] 25mg Take 1 tablet by mouth 3 (three) times daily as needed for Dizziness. [facility] lisinopriL 2.5 mg tablet 11-20 00:00: 00 Yes [id number] 2.5mg Take 1 tablet by mouth daily. [facility] rosuvastati n 40 mg tablet 11-20 00:00: 00 Yes [id number] 40mg Take 1 tablet by mouth at bedtime. [facility] pioglitazon e-metformin 15-850 mg per tablet 11-20 00:00: 00 Yes [id number] .5{tbl} Take 0.5 tablets by mouth 2 (two) times daily with meals. [facility] Food Supplement, Lactose-Otis e (ENSURE HIGH PROTEIN) liquid 11-20 00:00: 00 Yes [id number] 1{can} Take 1 Can by mouth 3 (three) times daily with meals and at bedtime. [facility] tamsulosin 0.4 mg 24 hr capsule 11-20 00:00: 00 Yes [id number] 9102 .4mg Take 1 capsule by mouth daily. [facility] Diclofenac Sodium (VOLTAREN) 1 % gel 11-20 00:00: 00 Yes [id number] Apply to area(s) 4 (four) times daily. [facility] meclizine 25 mg tablet 11-20 00:00: 00 Yes [id number] 25mg Take 1 tablet by mouth 3 (three) times daily as needed for Dizziness. [facility] lisinopriL 2.5 mg tablet 11-20 00:00: 00 Yes [id number] 2.5mg Take 1 tablet by mouth daily. [facility] rosuvastati n 40 mg tablet 11-20 00:00: 00 Yes [id number] 40mg Take 1 tablet by mouth at bedtime. [facility] pioglitazon e-metformin 15-850 mg per tablet 11-20 00:00: 00 Yes [id number] .5{tbl} Take 0.5 tablets by mouth 2 (two) times daily with meals. [facility] Food Supplement, Lactose-Otis e (ENSURE HIGH PROTEIN) liquid 11-20 00:00: 00 Yes [id number] 1{can} Take 1 Can by mouth 3 (three) times daily with meals and at bedtime. [facility] tamsulosin 0.4 mg 24 hr capsule 11-20 00:00: 00 Yes [id number] 9102 .4mg Take 1 capsule by mouth daily. [facility] Diclofenac Sodium (VOLTAREN) 1 % gel 11-20 00:00: 00 Yes [id number] Apply to area(s) 4 (four) times daily. [facility] meclizine 25 mg tablet 11-20 00:00: 00 Yes [id number] 25mg Take 1 tablet by mouth 3 (three) times daily as needed for Dizziness. [facility] lisinopriL 2.5 mg tablet 11-20 00:00: 00 Yes [id number] 2.5mg Take 1 tablet by mouth daily. [facility] rosuvastati n 40 mg tablet 11-20 00:00: 00 Yes [id number] 40mg Take 1 tablet by mouth at bedtime. [facility] pioglitazon e-metformin 15-850 mg per tablet 11-20 00:00: 00 Yes [id number] .5{tbl} Take 0.5 tablets by mouth 2 (two) times daily with meals. [facility] Food Supplement, Lactose-Otis e (ENSURE HIGH PROTEIN) liquid 11-20 00:00: 00 Yes [id number] 1{can} Take 1 Can by mouth 3 (three) times daily with meals and at bedtime. [facility] tamsulosin 0.4 mg 24 hr capsule 11-20 00:00: 00 Yes [id number] 9102 .4mg Take 1 capsule by mouth daily. [facility] Diclofenac Sodium (VOLTAREN) 1 % gel 11-20 00:00: 00 Yes [id number] Apply to area(s) 4 (four) times daily. [facility] meclizine 25 mg tablet 11-20 00:00: 00 Yes [id number] 25mg Take 1 tablet by mouth 3 (three) times daily as needed for Dizziness. [facility] lisinopriL 2.5 mg tablet 11-20 00:00: 00 Yes [id number] 2.5mg Take 1 tablet by mouth daily. [facility] rosuvastati n 40 mg tablet 11-20 00:00: 00 Yes [id number] 40mg Take 1 tablet by mouth at bedtime. [facility] pioglitazon e-metformin 15-850 mg per tablet 11-20 00:00: 00 Yes [id number] .5{tbl} Take 0.5 tablets by mouth 2 (two) times daily with meals. [facility] Food Supplement, Lactose-Otis e (ENSURE HIGH PROTEIN) liquid 11-20 00:00: 00 Yes [id number] 1{can} Take 1 Can by mouth 3 (three) times daily with meals and at bedtime. [facility] tamsulosin 0.4 mg 24 hr capsule 11-20 00:00: 00 Yes [id number] 9102 .4mg Take 1 capsule by mouth daily. [facility] Diclofenac Sodium (VOLTAREN) 1 % gel 11-20 00:00: 00 Yes [id number] Apply to area(s) 4 (four) times daily. [facility] meclizine 25 mg tablet 11-20 00:00: 00 Yes [id number] 25mg Take 1 tablet by mouth 3 (three) times daily as needed for Dizziness. [facility] lisinopriL 2.5 mg tablet 11-20 00:00: 00 Yes [id number] 2.5mg Take 1 tablet by mouth daily. [facility] rosuvastati n 40 mg tablet 11-20 00:00: 00 Yes [id number] 40mg Take 1 tablet by mouth at bedtime. [facility] pioglitazon e-metformin 15-850 mg per tablet 11-20 00:00: 00 Yes [id number] .5{tbl} Take 0.5 tablets by mouth 2 (two) times daily with meals. [facility] Food Supplement, Lactose-Otis e (ENSURE HIGH PROTEIN) liquid 11-20 00:00: 00 Yes [id number] 1{can} Take 1 Can by mouth 3 (three) times daily with meals and at bedtime. [facility] tamsulosin 0.4 mg 24 hr capsule 11-20 00:00: 00 Yes [id number] 9102 .4mg Take 1 capsule by mouth daily. [facility] Diclofenac Sodium (VOLTAREN) 1 % gel 11-20 00:00: 00 Yes [id number] Apply to area(s) 4 (four) times daily. [facility] meclizine 25 mg tablet 11-20 00:00: 00 Yes [id number] 25mg Take 1 tablet by mouth 3 (three) times daily as needed for Dizziness. [facility] lisinopriL 2.5 mg tablet 11-20 00:00: 00 Yes [id number] 2.5mg Take 1 tablet by mouth daily. [facility] rosuvastati n 40 mg tablet 11-20 00:00: 00 Yes [id number] 40mg Take 1 tablet by mouth at bedtime. [facility] pioglitazon e-metformin 15-850 mg per tablet 11-20 00:00: 00 Yes [id number] .5{tbl} Take 0.5 tablets by mouth 2 (two) times daily with meals. [facility] Food Supplement, Lactose-Otis e (ENSURE HIGH PROTEIN) liquid 11-20 00:00: 00 Yes [id number] 1{can} Take 1 Can by mouth 3 (three) times daily with meals and at bedtime. [facility] tamsulosin 0.4 mg 24 hr capsule 11-20 00:00: 00 Yes [id number] 9102 .4mg Take 1 capsule by mouth daily. [facility] Diclofenac Sodium (VOLTAREN) 1 % gel 11-20 00:00: 00 Yes [id number] Apply to area(s) 4 (four) times daily. [facility] meclizine 25 mg tablet 11-20 00:00: 00 Yes [id number] 25mg Take 1 tablet by mouth 3 (three) times daily as needed for Dizziness. [facility] lisinopriL 2.5 mg tablet 11-20 00:00: 00 Yes [id number] 2.5mg Take 1 tablet by mouth daily. [facility] rosuvastati n 40 mg tablet 11-20 00:00: 00 Yes [id number] 40mg Take 1 tablet by mouth at bedtime. [facility] pioglitazon e-metformin 15-850 mg per tablet 11-20 00:00: 00 Yes [id number] .5{tbl} Take 0.5 tablets by mouth 2 (two) times daily with meals. [facility] Food Supplement, Lactose-Otis e (ENSURE HIGH PROTEIN) liquid 11-20 00:00: 00 Yes [id number] 1{can} Take 1 Can by mouth 3 (three) times daily with meals and at bedtime. [facility] tamsulosin 0.4 mg 24 hr capsule 11-20 00:00: 00 Yes [id number] 9102 .4mg Take 1 capsule by mouth daily. [facility] Diclofenac Sodium (VOLTAREN) 1 % gel 11-20 00:00: 00 Yes [id number] Apply to area(s) 4 (four) times daily. [facility] meclizine 25 mg tablet 11-20 00:00: 00 Yes [id number] 25mg Take 1 tablet by mouth 3 (three) times daily as needed for Dizziness. [facility] lisinopriL 2.5 mg tablet 11-20 00:00: 00 Yes [id number] 2.5mg Take 1 tablet by mouth daily. [facility] rosuvastati n 40 mg tablet 11-20 00:00: 00 Yes [id number] 40mg Take 1 tablet by mouth at bedtime. [facility] pioglitazon e-metformin 15-850 mg per tablet 11-20 00:00: 00 Yes [id number] .5{tbl} Take 0.5 tablets by mouth 2 (two) times daily with meals. [facility] Food Supplement, Lactose-Otis e (ENSURE HIGH PROTEIN) liquid 11-20 00:00: 00 Yes [id number] 1{can} Take 1 Can by mouth 3 (three) times daily with meals and at bedtime. [facility] tamsulosin 0.4 mg 24 hr capsule 11-20 00:00: 00 Yes [id number] 9102 .4mg Take 1 capsule by mouth daily. [facility] Diclofenac Sodium (VOLTAREN) 1 % gel 11-20 00:00: 00 Yes [id number] Apply to area(s) 4 (four) times daily. [facility] meclizine 25 mg tablet 11-20 00:00: 00 Yes [id number] 25mg Take 1 tablet by mouth 3 (three) times daily as needed for Dizziness. [facility] lisinopriL 2.5 mg tablet 11-20 00:00: 00 Yes [id number] 2.5mg Take 1 tablet by mouth daily. [facility] rosuvastati n 40 mg tablet 11-20 00:00: 00 Yes [id number] 40mg Take 1 tablet by mouth at bedtime. [facility] pioglitazon e-metformin 15-850 mg per tablet 11-20 00:00: 00 Yes [id number] .5{tbl} Take 0.5 tablets by mouth 2 (two) times daily with meals. [facility] Food Supplement, Lactose-Otis e (ENSURE HIGH PROTEIN) liquid 11-20 00:00: 00 Yes [id number] 1{can} Take 1 Can by mouth 3 (three) times daily with meals and at bedtime. [facility] tamsulosin 0.4 mg 24 hr capsule 11-20 00:00: 00 Yes [id number] 9102 .4mg Take 1 capsule by mouth daily. [facility] Diclofenac Sodium (VOLTAREN) 1 % gel 11-20 00:00: 00 Yes [id number] Apply to area(s) 4 (four) times daily. [facility] meclizine 25 mg tablet 11-20 00:00: 00 Yes [id number] 25mg Take 1 tablet by mouth 3 (three) times daily as needed for Dizziness. [facility] lisinopriL 2.5 mg tablet 11-20 00:00: 00 Yes [id number] 2.5mg Take 1 tablet by mouth daily. [facility] rosuvastati n 40 mg tablet 11-20 00:00: 00 Yes [id number] 40mg Take 1 tablet by mouth at bedtime. [facility] pioglitazon e-metformin 15-850 mg per tablet 11-20 00:00: 00 Yes [id number] .5{tbl} Take 0.5 tablets by mouth 2 (two) times daily with meals. [facility] Food Supplement, Lactose-Otis e (ENSURE HIGH PROTEIN) liquid 11-20 00:00: 00 Yes [id number] 1{can} Take 1 Can by mouth 3 (three) times daily with meals and at bedtime. [facility] tamsulosin 0.4 mg 24 hr capsule 11-20 00:00: 00 Yes [id number] 9102 .4mg Take 1 capsule by mouth daily. [facility] Diclofenac Sodium (VOLTAREN) 1 % gel 11-20 00:00: 00 Yes [id number] Apply to area(s) 4 (four) times daily. [facility] meclizine 25 mg tablet 11-20 00:00: 00 Yes [id number] 25mg Take 1 tablet by mouth 3 (three) times daily as needed for Dizziness. [facility] lisinopriL 2.5 mg tablet 11-20 00:00: 00 Yes [id number] 2.5mg Take 1 tablet by mouth daily. [facility] rosuvastati n 40 mg tablet 11-20 00:00: 00 Yes [id number] 40mg Take 1 tablet by mouth at bedtime. [facility] pioglitazon e-metformin 15-850 mg per tablet 11-20 00:00: 00 Yes [id number] .5{tbl} Take 0.5 tablets by mouth 2 (two) times daily with meals. [facility] Food Supplement, Lactose-Otis e (ENSURE HIGH PROTEIN) liquid 11-20 00:00: 00 Yes [id number] 1{can} Take 1 Can by mouth 3 (three) times daily with meals and at bedtime. [facility] tamsulosin 0.4 mg 24 hr capsule 11-20 00:00: 00 Yes [id number] 9102 .4mg Take 1 capsule by mouth daily. [facility] Diclofenac Sodium (VOLTAREN) 1 % gel 11-20 00:00: 00 Yes [id number] Apply to area(s) 4 (four) times daily. [facility] meclizine 25 mg tablet 11-20 00:00: 00 Yes [id number] 25mg Take 1 tablet by mouth 3 (three) times daily as needed for Dizziness. [facility] lisinopriL 2.5 mg tablet 11-20 00:00: 00 Yes [id number] 2.5mg Take 1 tablet by mouth daily. [facility] rosuvastati n 40 mg tablet 11-20 00:00: 00 Yes [id number] 40mg Take 1 tablet by mouth at bedtime. [facility] pioglitazon e-metformin 15-850 mg per tablet 11-20 00:00: 00 Yes [id number] .5{tbl} Take 0.5 tablets by mouth 2 (two) times daily with meals. [facility] Food Supplement, Lactose-Otis e (ENSURE HIGH PROTEIN) liquid 11-20 00:00: 00 Yes [id number] 1{can} Take 1 Can by mouth 3 (three) times daily with meals and at bedtime. [facility] tamsulosin 0.4 mg 24 hr capsule 11-20 00:00: 00 Yes [id number] 9102 .4mg Take 1 capsule by mouth daily. [facility] Diclofenac Sodium (VOLTAREN) 1 % gel 11-20 00:00: 00 Yes [id number] Apply to area(s) 4 (four) times daily. [facility] meclizine 25 mg tablet 11-20 00:00: 00 Yes [id number] 25mg Take 1 tablet by mouth 3 (three) times daily as needed for Dizziness. [facility] lisinopriL 2.5 mg tablet 11-20 00:00: 00 Yes [id number] 2.5mg Take 1 tablet by mouth daily. [facility] rosuvastati n 40 mg tablet 11-20 00:00: 00 Yes [id number] 40mg Take 1 tablet by mouth at bedtime. [facility] pioglitazon e-metformin 15-850 mg per tablet 11-20 00:00: 00 Yes [id number] .5{tbl} Take 0.5 tablets by mouth 2 (two) times daily with meals. [facility] Food Supplement, Lactose-Otis e (ENSURE HIGH PROTEIN) liquid 11-20 00:00: 00 Yes [id number] 1{can} Take 1 Can by mouth 3 (three) times daily with meals and at bedtime. [facility] tamsulosin 0.4 mg 24 hr capsule 11-20 00:00: 00 Yes [id number] 9102 .4mg Take 1 capsule by mouth daily. [facility] Diclofenac Sodium (VOLTAREN) 1 % gel 11-20 00:00: 00 Yes [id number] Apply to area(s) 4 (four) times daily. [facility] meclizine 25 mg tablet 11-20 00:00: 00 Yes [id number] 25mg Take 1 tablet by mouth 3 (three) times daily as needed for Dizziness. [facility] lisinopriL 2.5 mg tablet 11-20 00:00: 00 Yes [id number] 2.5mg Take 1 tablet by mouth daily. [facility] rosuvastati n 40 mg tablet 11-20 00:00: 00 Yes [id number] 40mg Take 1 tablet by mouth at bedtime. [facility] pioglitazon e-metformin 15-850 mg per tablet 11-20 00:00: 00 Yes [id number] .5{tbl} Take 0.5 tablets by mouth 2 (two) times daily with meals. [facility] Food Supplement, Lactose-Otis e (ENSURE HIGH PROTEIN) liquid 11-20 00:00: 00 Yes [id number] 1{can} Take 1 Can by mouth 3 (three) times daily with meals and at bedtime. [facility] tamsulosin 0.4 mg 24 hr capsule 11-20 00:00: 00 Yes [id number] 9102 .4mg Take 1 capsule by mouth daily. [facility] Diclofenac Sodium (VOLTAREN) 1 % gel 11-20 00:00: 00 Yes [id number] Apply to area(s) 4 (four) times daily. [facility] meclizine 25 mg tablet 11-20 00:00: 00 Yes [id number] 25mg Take 1 tablet by mouth 3 (three) times daily as needed for Dizziness. [facility] lisinopriL 2.5 mg tablet 11-20 00:00: 00 Yes [id number] 2.5mg Take 1 tablet by mouth daily. [facility] rosuvastati n 40 mg tablet 11-20 00:00: 00 Yes [id number] 40mg Take 1 tablet by mouth at bedtime. [facility] pioglitazon e-metformin 15-850 mg per tablet 11-20 00:00: 00 Yes [id number] .5{tbl} Take 0.5 tablets by mouth 2 (two) times daily with meals. [facility] Food Supplement, Lactose-Otis e (ENSURE HIGH PROTEIN) liquid 11-20 00:00: 00 Yes [id number] 1{can} Take 1 Can by mouth 3 (three) times daily with meals and at bedtime. [facility] tamsulosin 0.4 mg 24 hr capsule 11-20 00:00: 00 Yes [id number] 9102 .4mg Take 1 capsule by mouth daily. [facility] Diclofenac Sodium (VOLTAREN) 1 % gel 11-20 00:00: 00 Yes [id number] Apply to area(s) 4 (four) times daily. [facility] meclizine 25 mg tablet 11-20 00:00: 00 Yes [id number] 25mg Take 1 tablet by mouth 3 (three) times daily as needed for Dizziness. [facility] lisinopriL 2.5 mg tablet 11-20 00:00: 00 Yes [id number] 2.5mg Take 1 tablet by mouth daily. [facility] rosuvastati n 40 mg tablet 11-20 00:00: 00 Yes [id number] 40mg Take 1 tablet by mouth at bedtime. [facility] pioglitazon e-metformin 15-850 mg per tablet 11-20 00:00: 00 Yes [id number] .5{tbl} Take 0.5 tablets by mouth 2 (two) times daily with meals. [facility] Food Supplement, Lactose-Otis e (ENSURE HIGH PROTEIN) liquid 11-20 00:00: 00 Yes [id number] 1{can} Take 1 Can by mouth 3 (three) times daily with meals and at bedtime. [facility] tamsulosin 0.4 mg 24 hr capsule 11-20 00:00: 00 Yes [id number] 9102 .4mg Take 1 capsule by mouth daily. [facility] Diclofenac Sodium (VOLTAREN) 1 % gel 11-20 00:00: 00 Yes [id number] Apply to area(s) 4 (four) times daily. [facility] meclizine 25 mg tablet 11-20 00:00: 00 Yes [id number] 25mg Take 1 tablet by mouth 3 (three) times daily as needed for Dizziness. [facility] lisinopriL 2.5 mg tablet 11-20 00:00: 00 Yes [id number] 2.5mg Take 1 tablet by mouth daily. [facility] rosuvastati n 40 mg tablet 11-20 00:00: 00 Yes [id number] 40mg Take 1 tablet by mouth at bedtime. [facility] pioglitazon e-metformin 15-850 mg per tablet 11-20 00:00: 00 Yes [id number] .5{tbl} Take 0.5 tablets by mouth 2 (two) times daily with meals. [facility] Food Supplement, Lactose-Otis e (ENSURE HIGH PROTEIN) liquid 11-20 00:00: 00 Yes [id number] 1{can} Take 1 Can by mouth 3 (three) times daily with meals and at bedtime. [facility] tamsulosin 0.4 mg 24 hr capsule 11-20 00:00: 00 Yes [id number] 9102 .4mg Take 1 capsule by mouth daily. [facility] Diclofenac Sodium (VOLTAREN) 1 % gel 11-20 00:00: 00 Yes [id number] Apply to area(s) 4 (four) times daily. [facility] meclizine 25 mg tablet 11-20 00:00: 00 Yes [id number] 25mg Take 1 tablet by mouth 3 (three) times daily as needed for Dizziness. [facility] lisinopriL 2.5 mg tablet 11-20 00:00: 00 Yes [id number] 2.5mg Take 1 tablet by mouth daily. [facility] rosuvastati n 40 mg tablet 11-20 00:00: 00 Yes [id number] 40mg Take 1 tablet by mouth at bedtime. [facility] pioglitazon e-metformin 15-850 mg per tablet 11-20 00:00: 00 Yes [id number] .5{tbl} Take 0.5 tablets by mouth 2 (two) times daily with meals. [facility] Food Supplement, Lactose-Otis e (ENSURE HIGH PROTEIN) liquid 11-20 00:00: 00 Yes [id number] 1{can} Take 1 Can by mouth 3 (three) times daily with meals and at bedtime. [facility] tamsulosin 0.4 mg 24 hr capsule 11-20 00:00: 00 Yes [id number] 9102 .4mg Take 1 capsule by mouth daily. [facility] Diclofenac Sodium (VOLTAREN) 1 % gel 11-20 00:00: 00 Yes [id number] Apply to area(s) 4 (four) times daily. [facility] meclizine 25 mg tablet 11-20 00:00: 00 Yes [id number] 25mg Take 1 tablet by mouth 3 (three) times daily as needed for Dizziness. [facility] lisinopriL 2.5 mg tablet 11-20 00:00: 00 Yes [id number] 2.5mg Take 1 tablet by mouth daily. [facility] rosuvastati n 40 mg tablet 11-20 00:00: 00 Yes [id number] 40mg Take 1 tablet by mouth at bedtime. [facility] pioglitazon e-metformin 15-850 mg per tablet 11-20 00:00: 00 Yes [id number] .5{tbl} Take 0.5 tablets by mouth 2 (two) times daily with meals. [facility] Food Supplement, Lactose-Otis e (ENSURE HIGH PROTEIN) liquid 11-20 00:00: 00 Yes [id number] 1{can} Take 1 Can by mouth 3 (three) times daily with meals and at bedtime. [facility] tamsulosin 0.4 mg 24 hr capsule 11-20 00:00: 00 Yes [id number] 9102 .4mg Take 1 capsule by mouth daily. [facility] Diclofenac Sodium (VOLTAREN) 1 % gel 11-20 00:00: 00 Yes [id number] Apply to area(s) 4 (four) times daily. [facility] meclizine 25 mg tablet 11-20 00:00: 00 Yes [id number] 25mg Take 1 tablet by mouth 3 (three) times daily as needed for Dizziness. [facility] [facility] lisinopriL 2.5 mg tablet 11-20 00:00: 00 Yes [id number] 2.5mg Take 1 tablet by mouth daily. [facility] rosuvastati n 40 mg tablet 11-20 00:00: 00 Yes [id number] 40mg Take 1 tablet by mouth at bedtime. [facility] pioglitazon e-metformin 15-850 mg per tablet 11-20 00:00: 00 Yes [id number] .5{tbl} Take 0.5 tablets by mouth 2 (two) times daily with meals. [facility] Food Supplement, Lactose-Otis e (ENSURE HIGH PROTEIN) liquid 11-20 00:00: 00 Yes [id number] 1{can} Take 1 Can by mouth 3 (three) times daily with meals and at bedtime. [facility] tamsulosin 0.4 mg 24 hr capsule 11-20 00:00: 00 Yes [id number] 9102 .4mg Take 1 capsule by mouth daily. [facility] Diclofenac Sodium (VOLTAREN) 1 % gel 11-20 00:00: 00 Yes [id number] Apply to area(s) 4 (four) times daily. [facility] meclizine 25 mg tablet 11-20 00:00: 00 Yes [id number] 25mg Take 1 tablet by mouth 3 (three) times daily as needed for Dizziness. [facility] lisinopriL 2.5 mg tablet 11-20 00:00: 00 Yes [id number] 2.5mg Take 1 tablet by mouth daily. [facility] rosuvastati n 40 mg tablet 11-20 00:00: 00 Yes [id number] 40mg Take 1 tablet by mouth at bedtime. [facility] pioglitazon e-metformin 15-850 mg per tablet 11-20 00:00: 00 Yes [id number] .5{tbl} Take 0.5 tablets by mouth 2 (two) times daily with meals. [facility] Food Supplement, Lactose-Otis e (ENSURE HIGH PROTEIN) liquid 11-20 00:00: 00 Yes [id number] 1{can} Take 1 Can by mouth 3 (three) times daily with meals and at bedtime. [facility] tamsulosin 0.4 mg 24 hr capsule 11-20 00:00: 00 Yes [id number] 9102 .4mg Take 1 capsule by mouth daily. [facility] Diclofenac Sodium (VOLTAREN) 1 % gel 11-20 00:00: 00 Yes [id number] Apply to area(s) 4 (four) times daily. [facility] meclizine 25 mg tablet 11-20 00:00: 00 Yes [id number] 25mg Take 1 tablet by mouth 3 (three) times daily as needed for Dizziness. [facility] lisinopriL 2.5 mg tablet 11-20 00:00: 00 Yes [id number] 2.5mg Take 1 tablet by mouth daily. [facility] rosuvastati n 40 mg tablet 11-20 00:00: 00 Yes [id number] 40mg Take 1 tablet by mouth at bedtime. [facility] pioglitazon e-metformin 15-850 mg per tablet 11-20 00:00: 00 Yes [id number] .5{tbl} Take 0.5 tablets by mouth 2 (two) times daily with meals. [facility] Food Supplement, Lactose-Otis e (ENSURE HIGH PROTEIN) liquid 11-20 00:00: 00 Yes [id number] 1{can} Take 1 Can by mouth 3 (three) times daily with meals and at bedtime. [facility] tamsulosin 0.4 mg 24 hr capsule 11-20 00:00: 00 Yes [id number] 9102 .4mg Take 1 capsule by mouth daily. [facility] Diclofenac Sodium (VOLTAREN) 1 % gel 11-20 00:00: 00 Yes [id number] Apply to area(s) 4 (four) times daily. [facility] meclizine 25 mg tablet 11-20 00:00: 00 Yes [id number] 25mg Take 1 tablet by mouth 3 (three) times daily as needed for Dizziness. [facility] lisinopriL 2.5 mg tablet 11-20 00:00: 00 Yes [id number] 2.5mg Take 1 tablet by mouth daily. [facility] rosuvastati n 40 mg tablet 11-20 00:00: 00 Yes [id number] 40mg Take 1 tablet by mouth at bedtime. [facility] pioglitazon e-metformin 15-850 mg per tablet 11-20 00:00: 00 Yes [id number] .5{tbl} Take 0.5 tablets by mouth 2 (two) times daily with meals. [facility] Food Supplement, Lactose-Otis e (ENSURE HIGH PROTEIN) liquid 11-20 00:00: 00 Yes [id number] 1{can} Take 1 Can by mouth 3 (three) times daily with meals and at bedtime. [facility] tamsulosin 0.4 mg 24 hr capsule 11-20 00:00: 00 Yes [id number] 9102 .4mg Take 1 capsule by mouth daily. [facility] Diclofenac Sodium (VOLTAREN) 1 % gel 11-20 00:00: 00 Yes [id number] Apply to area(s) 4 (four) times daily. [facility] meclizine 25 mg tablet 11-20 00:00: 00 Yes [id number] 25mg Take 1 tablet by mouth 3 (three) times daily as needed for Dizziness. [facility] lisinopriL 2.5 mg tablet 11-20 00:00: 00 Yes [id number] 2.5mg Take 1 tablet by mouth daily. [facility] rosuvastati n 40 mg tablet 11-20 00:00: 00 Yes [id number] 40mg Take 1 tablet by mouth at bedtime. [facility] pioglitazon e-metformin 15-850 mg per tablet 11-20 00:00: 00 Yes [id number] .5{tbl} Take 0.5 tablets by mouth 2 (two) times daily with meals. [facility] Food Supplement, Lactose-Otis e (ENSURE HIGH PROTEIN) liquid 11-20 00:00: 00 Yes [id number] 1{can} Take 1 Can by mouth 3 (three) times daily with meals and at bedtime. [facility] tamsulosin 0.4 mg 24 hr capsule 11-20 00:00: 00 Yes [id number] 9102 .4mg Take 1 capsule by mouth daily. [facility] Diclofenac Sodium (VOLTAREN) 1 % gel 11-20 00:00: 00 Yes [id number] Apply to area(s) 4 (four) times daily. [facility] meclizine 25 mg tablet 11-20 00:00: 00 Yes [id number] 25mg Take 1 tablet by mouth 3 (three) times daily as needed for Dizziness. [facility] lisinopriL 2.5 mg tablet 11-20 00:00: 00 Yes [id number] 2.5mg Take 1 tablet by mouth daily. [facility] rosuvastati n 40 mg tablet 11-20 00:00: 00 Yes [id number] 40mg Take 1 tablet by mouth at bedtime. [facility] pioglitazon e-metformin 15-850 mg per tablet 11-20 00:00: 00 Yes [id number] .5{tbl} Take 0.5 tablets by mouth 2 (two) times daily with meals. [facility] Food Supplement, Lactose-Otis e (ENSURE HIGH PROTEIN) liquid 11-20 00:00: 00 Yes [id number] 1{can} Take 1 Can by mouth 3 (three) times daily with meals and at bedtime. [facility] tamsulosin 0.4 mg 24 hr capsule 11-20 00:00: 00 Yes [id number] 9102 .4mg Take 1 capsule by mouth daily. [facility] Diclofenac Sodium (VOLTAREN) 1 % gel 11-20 00:00: 00 Yes [id number] Apply to area(s) 4 (four) times daily. [facility] meclizine 25 mg tablet 11-20 00:00: 00 Yes [id number] 25mg Take 1 tablet by mouth 3 (three) times daily as needed for Dizziness. [facility] lisinopriL 2.5 mg tablet 11-20 00:00: 00 Yes [id number] 2.5mg Take 1 tablet by mouth daily. [facility] rosuvastati n 40 mg tablet 11-20 00:00: 00 Yes [id number] 40mg Take 1 tablet by mouth at bedtime. [facility] pioglitazon e-metformin 15-850 mg per tablet 11-20 00:00: 00 Yes [id number] .5{tbl} Take 0.5 tablets by mouth 2 (two) times daily with meals. [facility] Food Supplement, Lactose-Otis e (ENSURE HIGH PROTEIN) liquid 11-20 00:00: 00 Yes [id number] 1{can} Take 1 Can by mouth 3 (three) times daily with meals and at bedtime. [facility] tamsulosin 0.4 mg 24 hr capsule 11-20 00:00: 00 Yes [id number] 9102 .4mg Take 1 capsule by mouth daily. [facility] Diclofenac Sodium (VOLTAREN) 1 % gel 11-20 00:00: 00 Yes [id number] Apply to area(s) 4 (four) times daily. [facility] meclizine 25 mg tablet 11-20 00:00: 00 Yes [id number] 25mg Take 1 tablet by mouth 3 (three) times daily as needed for Dizziness. [facility] lisinopriL 2.5 mg tablet 11-20 00:00: 00 Yes [id number] 2.5mg Take 1 tablet by mouth daily. [facility] rosuvastati n 40 mg tablet 11-20 00:00: 00 Yes [id number] 40mg Take 1 tablet by mouth at bedtime. [facility] pioglitazon e-metformin 15-850 mg per tablet 11-20 00:00: 00 Yes [id number] .5{tbl} Take 0.5 tablets by mouth 2 (two) times daily with meals. [facility] Food Supplement, Lactose-Otis e (ENSURE HIGH PROTEIN) liquid 11-20 00:00: 00 Yes [id number] 1{can} Take 1 Can by mouth 3 (three) times daily with meals and at bedtime. [facility] tamsulosin 0.4 mg 24 hr capsule 11-20 00:00: 00 Yes [id number] 9102 .4mg Take 1 capsule by mouth daily. [facility] Diclofenac Sodium (VOLTAREN) 1 % gel 11-20 00:00: 00 Yes [id number] Apply to area(s) 4 (four) times daily. [facility] meclizine 25 mg tablet 11-20 00:00: 00 Yes [id number] 25mg Take 1 tablet by mouth 3 (three) times daily as needed for Dizziness. [facility] lisinopriL 2.5 mg tablet 11-20 00:00: 00 Yes [id number] 2.5mg Take 1 tablet by mouth daily. [facility] rosuvastati n 40 mg tablet 11-20 00:00: 00 Yes [id number] 40mg Take 1 tablet by mouth at bedtime. [facility] pioglitazon e-metformin 15-850 mg per tablet 11-20 00:00: 00 Yes [id number] .5{tbl} Take 0.5 tablets by mouth 2 (two) times daily with meals. [facility] Food Supplement, Lactose-Otis e (ENSURE HIGH PROTEIN) liquid 11-20 00:00: 00 Yes [id number] 1{can} Take 1 Can by mouth 3 (three) times daily with meals and at bedtime. [facility] tamsulosin 0.4 mg 24 hr capsule 11-20 00:00: 00 Yes [id number] 9102 .4mg Take 1 capsule by mouth daily. [facility] Diclofenac Sodium (VOLTAREN) 1 % gel 11-20 00:00: 00 Yes [id number] Apply to area(s) 4 (four) times daily. [facility] meclizine 25 mg tablet 11-20 00:00: 00 Yes [id number] 25mg Take 1 tablet by mouth 3 (three) times daily as needed for Dizziness. [facility] lisinopriL 2.5 mg tablet 11-20 00:00: 00 Yes [id number] 2.5mg Take 1 tablet by mouth daily. [facility] rosuvastati n 40 mg tablet 11-20 00:00: 00 Yes [id number] 40mg Take 1 tablet by mouth at bedtime. [facility] pioglitazon e-metformin 15-850 mg per tablet 11-20 00:00: 00 Yes [id number] .5{tbl} Take 0.5 tablets by mouth 2 (two) times daily with meals. [facility] Food Supplement, Lactose-Otis e (ENSURE HIGH PROTEIN) liquid 11-20 00:00: 00 Yes [id number] 1{can} Take 1 Can by mouth 3 (three) times daily with meals and at bedtime. [facility] tamsulosin 0.4 mg 24 hr capsule 11-20 00:00: 00 Yes [id number] 9102 .4mg Take 1 capsule by mouth daily. [facility] Diclofenac Sodium (VOLTAREN) 1 % gel 11-20 00:00: 00 Yes [id number] Apply to area(s) 4 (four) times daily. [facility] meclizine 25 mg tablet 11-20 00:00: 00 Yes [id number] 25mg Take 1 tablet by mouth 3 (three) times daily as needed for Dizziness. [facility] lisinopriL 2.5 mg tablet 11-20 00:00: 00 Yes [id number] 2.5mg Take 1 tablet by mouth daily. [facility] rosuvastati n 40 mg tablet 11-20 00:00: 00 Yes [id number] 40mg Take 1 tablet by mouth at bedtime. [facility] pioglitazon e-metformin 15-850 mg per tablet 11-20 00:00: 00 Yes [id number] .5{tbl} Take 0.5 tablets by mouth 2 (two) times daily with meals. [facility] Food Supplement, Lactose-Otis e (ENSURE HIGH PROTEIN) liquid 11-20 00:00: 00 Yes [id number] 1{can} Take 1 Can by mouth 3 (three) times daily with meals and at bedtime. [facility] tamsulosin 0.4 mg 24 hr capsule 11-20 00:00: 00 Yes [id number] 9102 .4mg Take 1 capsule by mouth daily. [facility] Diclofenac Sodium (VOLTAREN) 1 % gel 11-20 00:00: 00 Yes [id number] Apply to area(s) 4 (four) times daily. [facility] meclizine 25 mg tablet 11-20 00:00: 00 Yes [id number] 25mg Take 1 tablet by mouth 3 (three) times daily as needed for Dizziness. [facility] lisinopriL 2.5 mg tablet 11-20 00:00: 00 Yes [id number] 2.5mg Take 1 tablet by mouth daily. [facility] rosuvastati n 40 mg tablet 11-20 00:00: 00 Yes [id number] 40mg Take 1 tablet by mouth at bedtime. [facility] pioglitazon e-metformin 15-850 mg per tablet 11-20 00:00: 00 Yes [id number] .5{tbl} Take 0.5 tablets by mouth 2 (two) times daily with meals. [facility] Food Supplement, Lactose-Otis e (ENSURE HIGH PROTEIN) liquid 11-20 00:00: 00 Yes [id number] 1{can} Take 1 Can by mouth 3 (three) times daily with meals and at bedtime. [facility] Fenofibrate 160 mg tablet 11-20 00:00: 00 Yes 160mg Take 1 tablet by mouth daily. [facility] tamsulosin 0.4 mg 24 hr capsule 11-20 00:00: 00 Yes [id number] 9102 .4mg Take 1 capsule by mouth daily. [facility] Diclofenac Sodium (VOLTAREN) 1 % gel 11-20 00:00: 00 Yes [id number] Apply to area(s) 4 (four) times daily. [facility] meclizine 25 mg tablet 11-20 00:00: 00 Yes [id number] 25mg Take 1 tablet by mouth 3 (three) times daily as needed for Dizziness. [facility] lisinopriL 2.5 mg tablet 11-20 00:00: 00 Yes [id number] 2.5mg Take 1 tablet by mouth daily. [facility] rosuvastati n 40 mg tablet 11-20 00:00: 00 Yes [id number] 40mg Take 1 tablet by mouth at bedtime. [facility] pioglitazon e-metformin 15-850 mg per tablet 11-20 00:00: 00 Yes [id number] .5{tbl} Take 0.5 tablets by mouth 2 (two) times daily with meals. [facility] Food Supplement, Lactose-Otis e (ENSURE HIGH PROTEIN) liquid 11-20 00:00: 00 Yes [id number] 1{can} Take 1 Can by mouth 3 (three) times daily with meals and at bedtime. [facility] Fenofibrate 160 mg tablet 11-20 00:00: 00 Yes 160mg Take 1 tablet by mouth daily. [facility] tamsulosin 0.4 mg 24 hr capsule 11-20 00:00: 00 Yes [id number] 9102 .4mg Take 1 capsule by mouth daily. [facility] Diclofenac Sodium (VOLTAREN) 1 % gel 11-20 00:00: 00 Yes [id number] Apply to area(s) 4 (four) times daily. [facility] meclizine 25 mg tablet 11-20 00:00: 00 Yes [id number] 25mg Take 1 tablet by mouth 3 (three) times daily as needed for Dizziness. [facility] lisinopriL 2.5 mg tablet 11-20 00:00: 00 Yes [id number] 2.5mg Take 1 tablet by mouth daily. [facility] rosuvastati n 40 mg tablet 11-20 00:00: 00 Yes [id number] 40mg Take 1 tablet by mouth at bedtime. [facility] pioglitazon e-metformin 15-850 mg per tablet 11-20 00:00: 00 Yes [id number] .5{tbl} Take 0.5 tablets by mouth 2 (two) times daily with meals. [facility] Food Supplement, Lactose-Otis e (ENSURE HIGH PROTEIN) liquid 11-20 00:00: 00 Yes [id number] 1{can} Take 1 Can by mouth 3 (three) times daily with meals and at bedtime. [facility] Fenofibrate 160 mg tablet 11-20 00:00: 00 Yes 160mg Take 1 tablet by mouth daily. [facility] tamsulosin 0.4 mg 24 hr capsule 11-20 00:00: 00 Yes [id number] 9102 .4mg Take 1 capsule by mouth daily. [facility] Diclofenac Sodium (VOLTAREN) 1 % gel 11-20 00:00: 00 Yes [id number] Apply to area(s) 4 (four) times daily. [facility] meclizine 25 mg tablet 11-20 00:00: 00 Yes [id number] 25mg Take 1 tablet by mouth 3 (three) times daily as needed for Dizziness. [facility] lisinopriL 2.5 mg tablet 11-20 00:00: 00 Yes [id number] 2.5mg Take 1 tablet by mouth daily. [facility] rosuvastati n 40 mg tablet 11-20 00:00: 00 Yes [id number] 40mg Take 1 tablet by mouth at bedtime. [facility] pioglitazon e-metformin 15-850 mg per tablet 11-20 00:00: 00 Yes [id number] .5{tbl} Take 0.5 tablets by mouth 2 (two) times daily with meals. [facility] Food Supplement, Lactose-Otis e (ENSURE HIGH PROTEIN) liquid 11-20 00:00: 00 Yes [id number] 1{can} Take 1 Can by mouth 3 (three) times daily with meals and at bedtime. [facility] Fenofibrate 160 mg tablet 11-20 00:00: 00 Yes 160mg Take 1 tablet by mouth daily. [facility] tamsulosin 0.4 mg 24 hr capsule 11-20 00:00: 00 Yes [id number] 9102 .4mg Take 1 capsule by mouth daily. [facility] Diclofenac Sodium (VOLTAREN) 1 % gel 11-20 00:00: 00 Yes [id number] Apply to area(s) 4 (four) times daily. [facility] meclizine 25 mg tablet 11-20 00:00: 00 Yes [id number] 25mg Take 1 tablet by mouth 3 (three) times daily as needed for Dizziness. [facility] lisinopriL 2.5 mg tablet 11-20 00:00: 00 Yes [id number] 2.5mg Take 1 tablet by mouth daily. [facility] rosuvastati n 40 mg tablet 11-20 00:00: 00 Yes [id number] 40mg Take 1 tablet by mouth at bedtime. [facility] pioglitazon e-metformin 15-850 mg per tablet 11-20 00:00: 00 Yes [id number] .5{tbl} Take 0.5 tablets by mouth 2 (two) times daily with meals. [facility] Food Supplement, Lactose-Otis e (ENSURE HIGH PROTEIN) liquid 11-20 00:00: 00 Yes [id number] 1{can} Take 1 Can by mouth 3 (three) times daily with meals and at bedtime. [facility] Fenofibrate 160 mg tablet 11-20 00:00: 00 Yes 160mg Take 1 tablet by mouth daily. [facility] tamsulosin 0.4 mg 24 hr capsule 11-20 00:00: 00 Yes [id number] 9102 .4mg Take 1 capsule by mouth daily. [facility] Diclofenac Sodium (VOLTAREN) 1 % gel 11-20 00:00: 00 Yes [id number] Apply to area(s) 4 (four) times daily. [facility] meclizine 25 mg tablet 11-20 00:00: 00 Yes [id number] 25mg Take 1 tablet by mouth 3 (three) times daily as needed for Dizziness. [facility] lisinopriL 2.5 mg tablet 11-20 00:00: 00 Yes [id number] 2.5mg Take 1 tablet by mouth daily. [facility] rosuvastati n 40 mg tablet 11-20 00:00: 00 Yes [id number] 40mg Take 1 tablet by mouth at bedtime. [facility] pioglitazon e-metformin 15-850 mg per tablet 11-20 00:00: 00 Yes [id number] .[id number]{tbl} Take 0.5 tablets by mouth 2 (two) times daily with meals. [facility] Food Supplement, Lactose-Otis e (ENSURE HIGH PROTEIN) liquid 11-20 00:00: 00 Yes [id number] 1{can} Take 1 Can by mouth 3 (three) times daily with meals and at bedtime. [facility] Fenofibrate 160 mg tablet 11-20 00:00: 00 Yes 160mg Take 1 tablet by mouth daily. [facility] tamsulosin 0.4 mg 24 hr capsule 11-20 00:00: 00 Yes [id number] 9102 .4mg Take 1 capsule by mouth daily. [facility] Diclofenac Sodium (VOLTAREN) 1 % gel 11-20 00:00: 00 Yes [id number] Apply to area(s) 4 (four) times daily. [facility] meclizine 25 mg tablet 11-20 00:00: 00 Yes [id number] 25mg Take 1 tablet by mouth 3 (three) times daily as needed for Dizziness. [facility] lisinopriL 2.5 mg tablet 11-20 00:00: 00 Yes [id number] 2.5mg Take 1 tablet by mouth daily. [facility] rosuvastati n 40 mg tablet 11-20 00:00: 00 Yes [id number] 40mg Take 1 tablet by mouth at bedtime. [facility] pioglitazon e-metformin 15-850 mg per tablet 11-20 00:00: 00 Yes [id number] .5{tbl} Take 0.5 tablets by mouth 2 (two) times daily with meals. [facility] Food Supplement, Lactose-Otis e (ENSURE HIGH PROTEIN) liquid 11-20 00:00: 00 Yes [id number] 1{can} Take 1 Can by mouth 3 (three) times daily with meals and at bedtime. [facility] Fenofibrate 160 mg tablet 11-20 00:00: 00 Yes 160mg Take 1 tablet by mouth daily. [facility] tamsulosin 0.4 mg 24 hr capsule 11-20 00:00: 00 Yes [id number] 9102 .4mg Take 1 capsule by mouth daily. [facility] Diclofenac Sodium (VOLTAREN) 1 % gel 11-20 00:00: 00 Yes [id number] Apply to area(s) 4 (four) times daily. [facility] meclizine 25 mg tablet 11-20 00:00: 00 Yes [id number] 25mg Take 1 tablet by mouth 3 (three) times daily as needed for Dizziness. [facility] lisinopriL 2.5 mg tablet 11-20 00:00: 00 Yes [id number] 2.5mg Take 1 tablet by mouth daily. [facility] rosuvastati n 40 mg tablet 11-20 00:00: 00 Yes [id number] 40mg Take 1 tablet by mouth at bedtime. [facility] pioglitazon e-metformin 15-850 mg per tablet 11-20 00:00: 00 Yes [id number] .5{tbl} Take 0.5 tablets by mouth 2 (two) times daily with meals. [facility] Food Supplement, Lactose-Otis e (ENSURE HIGH PROTEIN) liquid 11-20 00:00: 00 Yes [id number] 1{can} Take 1 Can by mouth 3 (three) times daily with meals and at bedtime. [facility] Fenofibrate 160 mg tablet 11-20 00:00: 00 Yes 160mg Take 1 tablet by mouth daily. [facility] tamsulosin 0.4 mg 24 hr capsule 11-20 00:00: 00 Yes [id number] 9102 .4mg Take 1 capsule by mouth daily. [facility] Diclofenac Sodium (VOLTAREN) 1 % gel 11-20 00:00: 00 Yes [id number] Apply to area(s) 4 (four) times daily. [facility] meclizine 25 mg tablet 11-20 00:00: 00 Yes [id number] 25mg Take 1 tablet by mouth 3 (three) times daily as needed for Dizziness. [facility] lisinopriL 2.5 mg tablet 11-20 00:00: 00 Yes [id number] 2.5mg Take 1 tablet by mouth daily. [facility] rosuvastati n 40 mg tablet 11-20 00:00: 00 Yes [id number] 40mg Take 1 tablet by mouth at bedtime. [facility] pioglitazon e-metformin 15-850 mg per tablet 11-20 00:00: 00 Yes [id number] .5{tbl} Take 0.5 tablets by mouth 2 (two) times daily with meals. [facility] Food Supplement, Lactose-Otis e (ENSURE HIGH PROTEIN) liquid 11-20 00:00: 00 Yes [id number] 1{can} Take 1 Can by mouth 3 (three) times daily with meals and at bedtime. [facility] Fenofibrate 160 mg tablet 11-20 00:00: 00 Yes 160mg Take 1 tablet by mouth daily. [facility] tamsulosin 0.4 mg 24 hr capsule 11-20 00:00: 00 Yes [id number] 9102 .4mg Take 1 capsule by mouth daily. [facility] Diclofenac Sodium (VOLTAREN) 1 % gel 11-20 00:00: 00 Yes [id number] Apply to area(s) 4 (four) times daily. [facility] meclizine 25 mg tablet 11-20 00:00: 00 Yes [id number] 25mg Take 1 tablet by mouth 3 (three) times daily as needed for Dizziness. [facility] lisinopriL 2.5 mg tablet 11-20 00:00: 00 Yes [id number] 2.5mg Take 1 tablet by mouth daily. [facility] rosuvastati n 40 mg tablet 11-20 00:00: 00 Yes [id number] 40mg Take 1 tablet by mouth at bedtime. [facility] pioglitazon e-metformin 15-850 mg per tablet 11-20 00:00: 00 Yes [id number] .5{tbl} Take 0.5 tablets by mouth 2 (two) times daily with meals. [facility] Food Supplement, Lactose-Otis e (ENSURE HIGH PROTEIN) liquid 11-20 00:00: 00 Yes [id number] 1{can} Take 1 Can by mouth 3 (three) times daily with meals and at bedtime. [facility] Fenofibrate 160 mg tablet 11-20 00:00: 00 Yes 160mg Take 1 tablet by mouth daily. [facility] tamsulosin 0.4 mg 24 hr capsule 11-20 00:00: 00 Yes [id number] 9102 .4mg Take 1 capsule by mouth daily. [facility] Diclofenac Sodium (VOLTAREN) 1 % gel 11-20 00:00: 00 Yes [id number] Apply to area(s) 4 (four) times daily. [facility] meclizine 25 mg tablet 11-20 00:00: 00 Yes [id number] 25mg Take 1 tablet by mouth 3 (three) times daily as needed for Dizziness. [facility] lisinopriL 2.5 mg tablet 11-20 00:00: 00 Yes [id number] 2.5mg Take 1 tablet by mouth daily. [facility] rosuvastati n 40 mg tablet 11-20 00:00: 00 Yes [id number] 40mg Take 1 tablet by mouth at bedtime. [facility] pioglitazon e-metformin 15-850 mg per tablet 11-20 00:00: 00 Yes [id number] .5{tbl} Take 0.5 tablets by mouth 2 (two) times daily with meals. [facility] Food Supplement, Lactose-Otis e (ENSURE HIGH PROTEIN) liquid 11-20 00:00: 00 Yes [id number] 1{can} Take 1 Can by mouth 3 (three) times daily with meals and at bedtime. [facility] Fenofibrate 160 mg tablet 11-20 00:00: 00 Yes 160mg Take 1 tablet by mouth daily. [facility] tamsulosin 0.4 mg 24 hr capsule 11-20 00:00: 00 Yes [id number] 9102 .4mg Take 1 capsule by mouth daily. [facility] Diclofenac Sodium (VOLTAREN) 1 % gel 11-20 00:00: 00 Yes [id number] Apply to area(s) 4 (four) times daily. [facility] meclizine 25 mg tablet 11-20 00:00: 00 Yes [id number] 25mg Take 1 tablet by mouth 3 (three) times daily as needed for Dizziness. [facility] lisinopriL 2.5 mg tablet 11-20 00:00: 00 Yes [id number] 2.5mg Take 1 tablet by mouth daily. [facility] rosuvastati n 40 mg tablet 11-20 00:00: 00 Yes [id number] 40mg Take 1 tablet by mouth at bedtime. [facility] pioglitazon e-metformin 15-850 mg per tablet 11-20 00:00: 00 Yes [id number] .5{tbl} Take 0.5 tablets by mouth 2 (two) times daily with meals. [facility] Food Supplement, Lactose-Otis e (ENSURE HIGH PROTEIN) liquid 11-20 00:00: 00 Yes [id number] 1{can} Take 1 Can by mouth 3 (three) times daily with meals and at bedtime. [facility] Fenofibrate 160 mg tablet 11-20 00:00: 00 Yes 160mg Take 1 tablet by mouth daily. [facility] tamsulosin 0.4 mg 24 hr capsule 11-20 00:00: 00 Yes [id number] 9102 .4mg Take 1 capsule by mouth daily. [facility] Diclofenac Sodium (VOLTAREN) 1 % gel 11-20 00:00: 00 Yes [id number] Apply to area(s) 4 (four) times daily. [facility] meclizine 25 mg tablet 11-20 00:00: 00 Yes [id number] 25mg Take 1 tablet by mouth 3 (three) times daily as needed for Dizziness. [facility] lisinopriL 2.5 mg tablet 11-20 00:00: 00 Yes [id number] 2.5mg Take 1 tablet by mouth daily. [facility] rosuvastati n 40 mg tablet 11-20 00:00: 00 Yes [id number] 40mg Take 1 tablet by mouth at bedtime. [facility] pioglitazon e-metformin 15-850 mg per tablet 11-20 00:00: 00 Yes [id number] .5{tbl} Take 0.5 tablets by mouth 2 (two) times daily with meals. [facility] Food Supplement, Lactose-Otis e (ENSURE HIGH PROTEIN) liquid 11-20 00:00: 00 Yes [id number] 1{can} Take 1 Can by mouth 3 (three) times daily with meals and at bedtime. [facility] Fenofibrate 160 mg tablet 11-20 00:00: 00 Yes 160mg Take 1 tablet by mouth daily. [facility] tamsulosin 0.4 mg 24 hr capsule 11-20 00:00: 00 Yes [id number] 9102 .4mg Take 1 capsule by mouth daily. [facility] Diclofenac Sodium (VOLTAREN) 1 % gel 11-20 00:00: 00 Yes [id number] Apply to area(s) 4 (four) times daily. [facility] meclizine 25 mg tablet 11-20 00:00: 00 Yes [id number] 25mg Take 1 tablet by mouth 3 (three) times daily as needed for Dizziness. [facility] lisinopriL 2.5 mg tablet 11-20 00:00: 00 Yes [id number] 2.5mg Take 1 tablet by mouth daily. [facility] rosuvastati n 40 mg tablet 11-20 00:00: 00 Yes [id number] 40mg Take 1 tablet by mouth at bedtime. [facility] pioglitazon e-metformin 15-850 mg per tablet 11-20 00:00: 00 Yes [id number] .5{tbl} Take 0.5 tablets by mouth 2 (two) times daily with meals. [facility] Food Supplement, Lactose-Otis e (ENSURE HIGH PROTEIN) liquid 11-20 00:00: 00 Yes [id number] 1{can} Take 1 Can by mouth 3 (three) times daily with meals and at bedtime. [facility] Fenofibrate 160 mg tablet 11-20 00:00: 00 Yes 160mg Take 1 tablet by mouth daily. [facility] tamsulosin 0.4 mg 24 hr capsule 11-20 00:00: 00 Yes [id number] 9102 .4mg Take 1 capsule by mouth daily. [facility] Diclofenac Sodium (VOLTAREN) 1 % gel 11-20 00:00: 00 Yes [id number] Apply to area(s) 4 (four) times daily. [facility] meclizine 25 mg tablet 11-20 00:00: 00 Yes [id number] 25mg Take 1 tablet by mouth 3 (three) times daily as needed for Dizziness. [facility] lisinopriL 2.5 mg tablet 11-20 00:00: 00 Yes [id number] 2.5mg Take 1 tablet by mouth daily. [facility] rosuvastati n 40 mg tablet 11-20 00:00: 00 Yes [id number] 40mg Take 1 tablet by mouth at bedtime. [facility] pioglitazon e-metformin 15-850 mg per tablet 11-20 00:00: 00 Yes [id number] .[id number]{tbl} Take 0.5 tablets by mouth 2 (two) times daily with meals. [facility] Food Supplement, Lactose-Otis e (ENSURE HIGH PROTEIN) liquid 11-20 00:00: 00 Yes [id number] 1{can} Take 1 Can by mouth 3 (three) times daily with meals and at bedtime. [facility] Fenofibrate 160 mg tablet 11-20 00:00: 00 Yes 160mg Take 1 tablet by mouth daily. [facility] tamsulosin 0.4 mg 24 hr capsule 11-20 00:00: 00 Yes [id number] 9102 .4mg Take 1 capsule by mouth daily. [facility] Diclofenac Sodium (VOLTAREN) 1 % gel 11-20 00:00: 00 Yes [id number] Apply to area(s) 4 (four) times daily. [facility] meclizine 25 mg tablet 11-20 00:00: 00 Yes [id number] 25mg Take 1 tablet by mouth 3 (three) times daily as needed for Dizziness. [facility] lisinopriL 2.5 mg tablet 11-20 00:00: 00 Yes [id number] 2.5mg Take 1 tablet by mouth daily. [facility] rosuvastati n 40 mg tablet 11-20 00:00: 00 Yes [id number] 40mg Take 1 tablet by mouth at bedtime. [facility] pioglitazon e-metformin 15-850 mg per tablet 11-20 00:00: 00 Yes [id number] .5{tbl} Take 0.5 tablets by mouth 2 (two) times daily with meals. [facility] Food Supplement, Lactose-Otis e (ENSURE HIGH PROTEIN) liquid 11-20 00:00: 00 Yes [id number] 1{can} Take 1 Can by mouth 3 (three) times daily with meals and at bedtime. [facility] Fenofibrate 160 mg tablet 11-20 00:00: 00 Yes 160mg Take 1 tablet by mouth daily. [facility] tamsulosin 0.4 mg 24 hr capsule 11-20 00:00: 00 Yes [id number] 9102 .4mg Take 1 capsule by mouth daily. [facility] Diclofenac Sodium (VOLTAREN) 1 % gel 11-20 00:00: 00 Yes [id number] Apply to area(s) 4 (four) times daily. [facility] meclizine 25 mg tablet 11-20 00:00: 00 Yes [id number] 25mg Take 1 tablet by mouth 3 (three) times daily as needed for Dizziness. [facility] lisinopriL 2.5 mg tablet 11-20 00:00: 00 Yes [id number] 2.5mg Take 1 tablet by mouth daily. [facility] rosuvastati n 40 mg tablet 11-20 00:00: 00 Yes [id number] 40mg Take 1 tablet by mouth at bedtime. [facility] pioglitazon e-metformin 15-850 mg per tablet 11-20 00:00: 00 Yes [id number] .5{tbl} Take 0.5 tablets by mouth 2 (two) times daily with meals. [facility] Food Supplement, Lactose-Otis e (ENSURE HIGH PROTEIN) liquid 11-20 00:00: 00 Yes [id number] 1{can} Take 1 Can by mouth 3 (three) times daily with meals and at bedtime. [facility] Fenofibrate 160 mg tablet 11-20 00:00: 00 Yes 160mg Take 1 tablet by mouth daily. [facility] tamsulosin 0.4 mg 24 hr capsule 11-20 00:00: 00 Yes [id number] 9102 .4mg Take 1 capsule by mouth daily. [facility] Diclofenac Sodium (VOLTAREN) 1 % gel 11-20 00:00: 00 Yes [id number] Apply to area(s) 4 (four) times daily. [facility] meclizine 25 mg tablet 11-20 00:00: 00 Yes [id number] 25mg Take 1 tablet by mouth 3 (three) times daily as needed for Dizziness. [facility] lisinopriL 2.5 mg tablet 11-20 00:00: 00 Yes [id number] 2.5mg Take 1 tablet by mouth daily. [facility] rosuvastati n 40 mg tablet 11-20 00:00: 00 Yes [id number] 40mg Take 1 tablet by mouth at bedtime. [facility] pioglitazon e-metformin 15-850 mg per tablet 11-20 00:00: 00 Yes [id number] .5{tbl} Take 0.5 tablets by mouth 2 (two) times daily with meals. [facility] Food Supplement, Lactose-Otis e (ENSURE HIGH PROTEIN) liquid 11-20 00:00: 00 Yes [id number] 1{can} Take 1 Can by mouth 3 (three) times daily with meals and at bedtime. [facility] Fenofibrate 160 mg tablet 11-20 00:00: 00 Yes 160mg Take 1 tablet by mouth daily. [facility] tamsulosin 0.4 mg 24 hr capsule 11-20 00:00: 00 Yes [id number] 9102 .4mg Take 1 capsule by mouth daily. [facility] Diclofenac Sodium (VOLTAREN) 1 % gel 11-20 00:00: 00 Yes [id number] Apply to area(s) 4 (four) times daily. [facility] meclizine 25 mg tablet 11-20 00:00: 00 Yes [id number] 25mg Take 1 tablet by mouth 3 (three) times daily as needed for Dizziness. [facility] lisinopriL 2.5 mg tablet 11-20 00:00: 00 Yes [id number] 2.5mg Take 1 tablet by mouth daily. [facility] rosuvastati n 40 mg tablet 11-20 00:00: 00 Yes [id number] 40mg Take 1 tablet by mouth at bedtime. [facility] pioglitazon e-metformin 15-850 mg per tablet 11-20 00:00: 00 Yes [id number] .[id number]{tbl} Take 0.5 tablets by mouth 2 (two) times daily with meals. [facility] Food Supplement, Lactose-Otis e (ENSURE HIGH PROTEIN) liquid 11-20 00:00: 00 Yes [id number] 1{can} Take 1 Can by mouth 3 (three) times daily with meals and at bedtime. [facility] Fenofibrate 160 mg tablet 11-20 00:00: 00 Yes 160mg Take 1 tablet by mouth daily. [facility] tamsulosin 0.4 mg 24 hr capsule 11-20 00:00: 00 Yes [id number] 9102 .4mg Take 1 capsule by mouth daily. [facility] Diclofenac Sodium (VOLTAREN) 1 % gel 11-20 00:00: 00 Yes [id number] Apply to area(s) 4 (four) times daily. [facility] meclizine 25 mg tablet 11-20 00:00: 00 Yes [id number] 25mg Take 1 tablet by mouth 3 (three) times daily as needed for Dizziness. [facility] lisinopriL 2.5 mg tablet 11-20 00:00: 00 Yes [id number] 2.5mg Take 1 tablet by mouth daily. [facility] rosuvastati n 40 mg tablet 11-20 00:00: 00 Yes [id number] 40mg Take 1 tablet by mouth at bedtime. [facility] pioglitazon e-metformin 15-850 mg per tablet 11-20 00:00: 00 Yes [id number] .5{tbl} Take 0.5 tablets by mouth 2 (two) times daily with meals. [facility] Food Supplement, Lactose-Otis e (ENSURE HIGH PROTEIN) liquid 11-20 00:00: 00 Yes [id number] 1{can} Take 1 Can by mouth 3 (three) times daily with meals and at bedtime. [facility] Fenofibrate 160 mg tablet 11-20 00:00: 00 Yes 160mg Take 1 tablet by mouth daily. [facility] tamsulosin 0.4 mg 24 hr capsule 11-20 00:00: 00 Yes [id number] 9102 .4mg Take 1 capsule by mouth daily. [facility] Diclofenac Sodium (VOLTAREN) 1 % gel 11-20 00:00: 00 Yes [id number] Apply to area(s) 4 (four) times daily. [facility] meclizine 25 mg tablet 11-20 00:00: 00 Yes [id number] 25mg Take 1 tablet by mouth 3 (three) times daily as needed for Dizziness. [facility] lisinopriL 2.5 mg tablet 11-20 00:00: 00 Yes [id number] 2.5mg Take 1 tablet by mouth daily. [facility] rosuvastati n 40 mg tablet 11-20 00:00: 00 Yes [id number] 40mg Take 1 tablet by mouth at bedtime. [facility] pioglitazon e-metformin 15-850 mg per tablet 11-20 00:00: 00 Yes [id number] .5{tbl} Take 0.5 tablets by mouth 2 (two) times daily with meals. [facility] Food Supplement, Lactose-Otis e (ENSURE HIGH PROTEIN) liquid 11-20 00:00: 00 Yes [id number] 1{can} Take 1 Can by mouth 3 (three) times daily with meals and at bedtime. [facility] Fenofibrate 160 mg tablet 11-20 00:00: 00 Yes 160mg Take 1 tablet by mouth daily. [facility] tamsulosin 0.4 mg 24 hr capsule 11-20 00:00: 00 Yes [id number] 9102 .4mg Take 1 capsule by mouth daily. [facility] Diclofenac Sodium (VOLTAREN) 1 % gel 11-20 00:00: 00 Yes [id number] Apply to area(s) 4 (four) times daily. [facility] meclizine 25 mg tablet 11-20 00:00: 00 Yes [id number] 25mg Take 1 tablet by mouth 3 (three) times daily as needed for Dizziness. [facility] lisinopriL 2.5 mg tablet 11-20 00:00: 00 Yes [id number] 2.5mg Take 1 tablet by mouth daily. [facility] rosuvastati n 40 mg tablet 11-20 00:00: 00 Yes [id number] 40mg Take 1 tablet by mouth at bedtime. [facility] pioglitazon e-metformin 15-850 mg per tablet 11-20 00:00: 00 Yes [id number] .[id number]{tbl} Take 0.5 tablets by mouth 2 (two) times daily with meals. [facility] Food Supplement, Lactose-Otis e (ENSURE HIGH PROTEIN) liquid 11-20 00:00: 00 Yes [id number] 1{can} Take 1 Can by mouth 3 (three) times daily with meals and at bedtime. [facility] Fenofibrate 160 mg tablet 11-20 00:00: 00 Yes 160mg Take 1 tablet by mouth daily. [facility] tamsulosin 0.4 mg 24 hr capsule 11-20 00:00: 00 Yes [id number] 9102 .4mg Take 1 capsule by mouth daily. [facility] Diclofenac Sodium (VOLTAREN) 1 % gel 11-20 00:00: 00 Yes [id number] Apply to area(s) 4 (four) times daily. [facility] meclizine 25 mg tablet 11-20 00:00: 00 Yes [id number] 25mg Take 1 tablet by mouth 3 (three) times daily as needed for Dizziness. [facility] lisinopriL 2.5 mg tablet 11-20 00:00: 00 Yes [id number] 2.5mg Take 1 tablet by mouth daily. [facility] rosuvastati n 40 mg tablet 11-20 00:00: 00 Yes [id number] 40mg Take 1 tablet by mouth at bedtime. [facility] pioglitazon e-metformin 15-850 mg per tablet 11-20 00:00: 00 Yes [id number] .5{tbl} Take 0.5 tablets by mouth 2 (two) times daily with meals. [facility] Food Supplement, Lactose-Otis e (ENSURE HIGH PROTEIN) liquid 11-20 00:00: 00 Yes [id number] 1{can} Take 1 Can by mouth 3 (three) times daily with meals and at bedtime. [facility] Fenofibrate 160 mg tablet 11-20 00:00: 00 Yes 160mg Take 1 tablet by mouth daily. [facility] tamsulosin 0.4 mg 24 hr capsule 11-20 00:00: 00 Yes [id number] 9102 .4mg Take 1 capsule by mouth daily. [facility] Diclofenac Sodium (VOLTAREN) 1 % gel 11-20 00:00: 00 Yes [id number] Apply to area(s) 4 (four) times daily. [facility] meclizine 25 mg tablet 11-20 00:00: 00 Yes [id number] 25mg Take 1 tablet by mouth 3 (three) times daily as needed for Dizziness. [facility] lisinopriL 2.5 mg tablet 11-20 00:00: 00 Yes [id number] 2.5mg Take 1 tablet by mouth daily. [facility] rosuvastati n 40 mg tablet 11-20 00:00: 00 Yes [id number] 40mg Take 1 tablet by mouth at bedtime. [facility] pioglitazon e-metformin 15-850 mg per tablet 11-20 00:00: 00 Yes [id number] .5{tbl} Take 0.5 tablets by mouth 2 (two) times daily with meals. [facility] Food Supplement, Lactose-Otis e (ENSURE HIGH PROTEIN) liquid 11-20 00:00: 00 Yes [id number] 1{can} Take 1 Can by mouth 3 (three) times daily with meals and at bedtime. [facility] Fenofibrate 160 mg tablet 11-20 00:00: 00 Yes 160mg Take 1 tablet by mouth daily. [facility] tamsulosin 0.4 mg 24 hr capsule 11-20 00:00: 00 Yes [id number] 9102 .4mg Take 1 capsule by mouth daily. [facility] Diclofenac Sodium (VOLTAREN) 1 % gel 11-20 00:00: 00 Yes [id number] Apply to area(s) 4 (four) times daily. [facility] meclizine 25 mg tablet 11-20 00:00: 00 Yes [id number] 25mg Take 1 tablet by mouth 3 (three) times daily as needed for Dizziness. [facility] lisinopriL 2.5 mg tablet 11-20 00:00: 00 Yes [id number] 2.5mg Take 1 tablet by mouth daily. [facility] rosuvastati n 40 mg tablet 11-20 00:00: 00 Yes [id number] 40mg Take 1 tablet by mouth at bedtime. [facility] pioglitazon e-metformin 15-850 mg per tablet 11-20 00:00: 00 Yes [id number] .5{tbl} Take 0.5 tablets by mouth 2 (two) times daily with meals. [facility] Food Supplement, Lactose-Otis e (ENSURE HIGH PROTEIN) liquid 11-20 00:00: 00 Yes [id number] 1{can} Take 1 Can by mouth 3 (three) times daily with meals and at bedtime. [facility] Fenofibrate 160 mg tablet 11-20 00:00: 00 Yes 160mg Take 1 tablet by mouth daily. [facility] tamsulosin 0.4 mg 24 hr capsule 11-20 00:00: 00 Yes [id number] 9102 .4mg Take 1 capsule by mouth daily. [facility] Diclofenac Sodium (VOLTAREN) 1 % gel 11-20 00:00: 00 Yes [id number] Apply to area(s) 4 (four) times daily. [facility] meclizine 25 mg tablet 11-20 00:00: 00 Yes [id number] 25mg Take 1 tablet by mouth 3 (three) times daily as needed for Dizziness. [facility] lisinopriL 2.5 mg tablet 11-20 00:00: 00 Yes [id number] 2.5mg Take 1 tablet by mouth daily. [facility] rosuvastati n 40 mg tablet 11-20 00:00: 00 Yes [id number] 40mg Take 1 tablet by mouth at bedtime. [facility] pioglitazon e-metformin 15-850 mg per tablet 11-20 00:00: 00 Yes [id number] .5{tbl} Take 0.5 tablets by mouth 2 (two) times daily with meals. [facility] Food Supplement, Lactose-Otis e (ENSURE HIGH PROTEIN) liquid 11-20 00:00: 00 Yes [id number] 1{can} Take 1 Can by mouth 3 (three) times daily with meals and at bedtime. [facility] Fenofibrate 160 mg tablet 11-20 00:00: 00 Yes 160mg Take 1 tablet by mouth daily. [facility] tamsulosin 0.4 mg 24 hr capsule 11-20 00:00: 00 Yes [id number] 9102 .4mg Take 1 capsule by mouth daily. [facility] Diclofenac Sodium (VOLTAREN) 1 % gel 11-20 00:00: 00 Yes [id number] Apply to area(s) 4 (four) times daily. [facility] meclizine 25 mg tablet 11-20 00:00: 00 Yes [id number] 25mg Take 1 tablet by mouth 3 (three) times daily as needed for Dizziness. [facility] lisinopriL 2.5 mg tablet 11-20 00:00: 00 Yes [id number] 2.5mg Take 1 tablet by mouth daily. [facility] rosuvastati n 40 mg tablet 11-20 00:00: 00 Yes [id number] 40mg Take 1 tablet by mouth at bedtime. [facility] pioglitazon e-metformin 15-850 mg per tablet 11-20 00:00: 00 Yes [id number] .5{tbl} Take 0.5 tablets by mouth 2 (two) times daily with meals. [facility] Food Supplement, Lactose-Otis e (ENSURE HIGH PROTEIN) liquid 11-20 00:00: 00 Yes [id number] 1{can} Take 1 Can by mouth 3 (three) times daily with meals and at bedtime. [facility] Fenofibrate 160 mg tablet 11-20 00:00: 00 Yes 160mg Take 1 tablet by mouth daily. [facility] tamsulosin 0.4 mg 24 hr capsule 11-20 00:00: 00 Yes [id number] 9102 .4mg Take 1 capsule by mouth daily. [facility] Diclofenac Sodium (VOLTAREN) 1 % gel 11-20 00:00: 00 Yes [id number] Apply to area(s) 4 (four) times daily. [facility] meclizine 25 mg tablet 11-20 00:00: 00 Yes [id number] 25mg Take 1 tablet by mouth 3 (three) times daily as needed for Dizziness. [facility] lisinopriL 2.5 mg tablet 11-20 00:00: 00 Yes [id number] 2.5mg Take 1 tablet by mouth daily. [facility] rosuvastati n 40 mg tablet 11-20 00:00: 00 Yes [id number] 40mg Take 1 tablet by mouth at bedtime. [facility] pioglitazon e-metformin 15-850 mg per tablet 11-20 00:00: 00 Yes [id number] .[id number]{tbl} Take 0.5 tablets by mouth 2 (two) times daily with meals. [facility] Food Supplement, Lactose-Otis e (ENSURE HIGH PROTEIN) liquid 11-20 00:00: 00 Yes [id number] 1{can} Take 1 Can by mouth 3 (three) times daily with meals and at bedtime. [facility] Fenofibrate 160 mg tablet 11-20 00:00: 00 Yes 160mg Take 1 tablet by mouth daily. [facility] tamsulosin 0.4 mg 24 hr capsule 11-20 00:00: 00 Yes [id number] 9102 .4mg Take 1 capsule by mouth daily. [facility] Diclofenac Sodium (VOLTAREN) 1 % gel 11-20 00:00: 00 Yes [id number] Apply to area(s) 4 (four) times daily. [facility] meclizine 25 mg tablet 11-20 00:00: 00 Yes [id number] 25mg Take 1 tablet by mouth 3 (three) times daily as needed for Dizziness. [facility] lisinopriL 2.5 mg tablet 11-20 00:00: 00 Yes [id number] 2.5mg Take 1 tablet by mouth daily. [facility] rosuvastati n 40 mg tablet 11-20 00:00: 00 Yes [id number] 40mg Take 1 tablet by mouth at bedtime. [facility] pioglitazon e-metformin 15-850 mg per tablet 11-20 00:00: 00 Yes [id number] .5{tbl} Take 0.5 tablets by mouth 2 (two) times daily with meals. [facility] Food Supplement, Lactose-Otis e (ENSURE HIGH PROTEIN) liquid 11-20 00:00: 00 Yes [id number] 1{can} Take 1 Can by mouth 3 (three) times daily with meals and at bedtime. [facility] Fenofibrate 160 mg tablet 11-20 00:00: 00 Yes 160mg Take 1 tablet by mouth daily. [facility] tamsulosin 0.4 mg 24 hr capsule 11-20 00:00: 00 Yes [id number] 9102 .4mg Take 1 capsule by mouth daily. [facility] Diclofenac Sodium (VOLTAREN) 1 % gel 11-20 00:00: 00 Yes [id number] Apply to area(s) 4 (four) times daily. [facility] meclizine 25 mg tablet 11-20 00:00: 00 Yes [id number] 25mg Take 1 tablet by mouth 3 (three) times daily as needed for Dizziness. [facility] lisinopriL 2.5 mg tablet 11-20 00:00: 00 Yes [id number] 2.5mg Take 1 tablet by mouth daily. [facility] rosuvastati n 40 mg tablet 11-20 00:00: 00 Yes [id number] 40mg Take 1 tablet by mouth at bedtime. [facility] pioglitazon e-metformin 15-850 mg per tablet 11-20 00:00: 00 Yes [id number] .5{tbl} Take 0.5 tablets by mouth 2 (two) times daily with meals. [facility] Food Supplement, Lactose-Otis e (ENSURE HIGH PROTEIN) liquid 11-20 00:00: 00 Yes [id number] 1{can} Take 1 Can by mouth 3 (three) times daily with meals and at bedtime. [facility] Fenofibrate 160 mg tablet 11-20 00:00: 00 Yes 160mg Take 1 tablet by mouth daily. [facility] tamsulosin 0.4 mg 24 hr capsule 11-20 00:00: 00 Yes [id number] 9102 .4mg Take 1 capsule by mouth daily. [facility] Diclofenac Sodium (VOLTAREN) 1 % gel 11-20 00:00: 00 Yes [id number] Apply to area(s) 4 (four) times daily. [facility] meclizine 25 mg tablet 11-20 00:00: 00 Yes [id number] 25mg Take 1 tablet by mouth 3 (three) times daily as needed for Dizziness. [facility] lisinopriL 2.5 mg tablet 11-20 00:00: 00 Yes [id number] 2.5mg Take 1 tablet by mouth daily. [facility] rosuvastati n 40 mg tablet 11-20 00:00: 00 Yes [id number] 40mg Take 1 tablet by mouth at bedtime. [facility] pioglitazon e-metformin 15-850 mg per tablet 11-20 00:00: 00 Yes [id number] .5{tbl} Take 0.5 tablets by mouth 2 (two) times daily with meals. [facility] Food Supplement, Lactose-Otis e (ENSURE HIGH PROTEIN) liquid 11-20 00:00: 00 Yes [id number] 1{can} Take 1 Can by mouth 3 (three) times daily with meals and at bedtime. [facility] Fenofibrate 160 mg tablet 11-20 00:00: 00 Yes 160mg Take 1 tablet by mouth daily. [facility] tamsulosin 0.4 mg 24 hr capsule 11-20 00:00: 00 Yes [id number] 9102 .4mg Take 1 capsule by mouth daily. [facility] Diclofenac Sodium (VOLTAREN) 1 % gel 11-20 00:00: 00 Yes [id number] Apply to area(s) 4 (four) times daily. [facility] meclizine 25 mg tablet 11-20 00:00: 00 Yes [id number] 25mg Take 1 tablet by mouth 3 (three) times daily as needed for Dizziness. [facility] lisinopriL 2.5 mg tablet 11-20 00:00: 00 Yes [id number] 2.5mg Take 1 tablet by mouth daily. [facility] rosuvastati n 40 mg tablet 11-20 00:00: 00 Yes [id number] 40mg Take 1 tablet by mouth at bedtime. [facility] pioglitazon e-metformin 15-850 mg per tablet 11-20 00:00: 00 Yes [id number] .5{tbl} Take 0.5 tablets by mouth 2 (two) times daily with meals. [facility] Food Supplement, Lactose-Otis e (ENSURE HIGH PROTEIN) liquid 11-20 00:00: 00 Yes [id number] 1{can} Take 1 Can by mouth 3 (three) times daily with meals and at bedtime. [facility] [facility] 160 mg tablet 11-20 00:00: 00 Yes 160mg Take 1 tablet by mouth daily. [facility] tamsulosin 0.4 mg 24 hr capsule 11-20 00:00: 00 Yes [id number] 9102 .4mg Take 1 capsule by mouth daily. [facility] Diclofenac Sodium (VOLTAREN) 1 % gel 11-20 00:00: 00 Yes [id number] Apply to area(s) 4 (four) times daily. [facility] meclizine 25 mg tablet 11-20 00:00: 00 Yes [id number] 25mg Take 1 tablet by mouth 3 (three) times daily as needed for Dizziness. [facility] lisinopriL 2.5 mg tablet 11-20 00:00: 00 Yes [id number] 2.5mg Take 1 tablet by mouth daily. [facility] rosuvastati n 40 mg tablet 11-20 00:00: 00 Yes [id number] 40mg Take 1 tablet by mouth at bedtime. [facility] pioglitazon e-metformin 15-850 mg per tablet 11-20 00:00: 00 Yes [id number] .5{tbl} Take 0.5 tablets by mouth 2 (two) times daily with meals. [facility] Food Supplement, Lactose-Otis e (ENSURE HIGH PROTEIN) liquid 11-20 00:00: 00 Yes [id number] 1{can} Take 1 Can by mouth 3 (three) times daily with meals and at bedtime. [facility] tamsulosin 0.4 mg 24 hr capsule 11-20 00:00: 00 Yes [id number] 9102 .4mg Take 1 capsule by mouth daily. [facility] Diclofenac Sodium (VOLTAREN) 1 % gel 11-20 00:00: 00 Yes [id number] Apply to area(s) 4 (four) times daily. [facility] meclizine 25 mg tablet 11-20 00:00: 00 Yes [id number] 25mg Take 1 tablet by mouth 3 (three) times daily as needed for Dizziness. [facility] lisinopriL 2.5 mg tablet 11-20 00:00: 00 Yes [id number] 2.5mg Take 1 tablet by mouth daily. [facility] rosuvastati n 40 mg tablet 11-20 00:00: 00 Yes [id number] 40mg Take 1 tablet by mouth at bedtime. [facility] pioglitazon e-metformin 15-850 mg per tablet 11-20 00:00: 00 Yes [id number] .5{tbl} Take 0.5 tablets by mouth 2 (two) times daily with meals. [facility] Food Supplement, Lactose-Otis e (ENSURE HIGH PROTEIN) liquid 11-20 00:00: 00 Yes [id number] 1{can} Take 1 Can by mouth 3 (three) times daily with meals and at bedtime. [facility] tamsulosin 0.4 mg 24 hr capsule 11-20 00:00: 00 Yes [id number] 9102 .4mg Take 1 capsule by mouth daily. [facility] Diclofenac Sodium (VOLTAREN) 1 % gel 11-20 00:00: 00 Yes [id number] Apply to area(s) 4 (four) times daily. [facility] meclizine 25 mg tablet 11-20 00:00: 00 Yes [id number] 25mg Take 1 tablet by mouth 3 (three) times daily as needed for Dizziness. [facility] lisinopriL 2.5 mg tablet 11-20 00:00: 00 Yes [id number] 2.5mg Take 1 tablet by mouth daily. [facility] rosuvastati n 40 mg tablet 11-20 00:00: 00 Yes [id number] 40mg Take 1 tablet by mouth at bedtime. [facility] pioglitazon e-metformin 15-850 mg per tablet 11-20 00:00: 00 Yes [id number] .[id number]{tbl} Take 0.5 tablets by mouth 2 (two) times daily with meals. [facility] Food Supplement, Lactose-Otis e (ENSURE HIGH PROTEIN) liquid 11-20 00:00: 00 Yes [id number] 1{can} Take 1 Can by mouth 3 (three) times daily with meals and at bedtime. [facility] tamsulosin 0.4 mg 24 hr capsule 11-20 00:00: 00 Yes [id number] 9102 .4mg Take 1 capsule by mouth daily. [facility] Diclofenac Sodium (VOLTAREN) 1 % gel 11-20 00:00: 00 Yes [id number] Apply to area(s) 4 (four) times daily. [facility] meclizine 25 mg tablet 11-20 00:00: 00 Yes [id number] 25mg Take 1 tablet by mouth 3 (three) times daily as needed for Dizziness. [facility] lisinopriL 2.5 mg tablet 11-20 00:00: 00 Yes [id number] 2.5mg Take 1 tablet by mouth daily. [facility] rosuvastati n 40 mg tablet 11-20 00:00: 00 Yes [id number] 40mg Take 1 tablet by mouth at bedtime. [facility] pioglitazon e-metformin 15-850 mg per tablet 11-20 00:00: 00 Yes [id number] .5{tbl} Take 0.5 tablets by mouth 2 (two) times daily with meals. [facility] Food Supplement, Lactose-Otis e (ENSURE HIGH PROTEIN) liquid 11-20 00:00: 00 Yes [id number] 1{can} Take 1 Can by mouth 3 (three) times daily with meals and at bedtime. [facility] tamsulosin 0.4 mg 24 hr capsule 11-20 00:00: 00 Yes [id number] 9102 .4mg Take 1 capsule by mouth daily. [facility] Diclofenac Sodium (VOLTAREN) 1 % gel 11-20 00:00: 00 Yes [id number] Apply to area(s) 4 (four) times daily. [facility] meclizine 25 mg tablet 11-20 00:00: 00 Yes [id number] 25mg Take 1 tablet by mouth 3 (three) times daily as needed for Dizziness. [facility] lisinopriL 2.5 mg tablet 11-20 00:00: 00 Yes [id number] 2.5mg Take 1 tablet by mouth daily. [facility] rosuvastati n 40 mg tablet 11-20 00:00: 00 Yes [id number] 40mg Take 1 tablet by mouth at bedtime. [facility] pioglitazon e-metformin 15-850 mg per tablet 11-20 00:00: 00 Yes [id number] .5{tbl} Take 0.5 tablets by mouth 2 (two) times daily with meals. [facility] Food Supplement, Lactose-Otis e (ENSURE HIGH PROTEIN) liquid 11-20 00:00: 00 Yes [id number] 1{can} Take 1 Can by mouth 3 (three) times daily with meals and at bedtime. [facility] tamsulosin 0.4 mg 24 hr capsule 11-20 00:00: 00 Yes [id number] 9102 .4mg Take 1 capsule by mouth daily. [facility] Diclofenac Sodium (VOLTAREN) 1 % gel 11-20 00:00: 00 Yes [id number] Apply to area(s) 4 (four) times daily. [facility] meclizine 25 mg tablet 11-20 00:00: 00 Yes [id number] 25mg Take 1 tablet by mouth 3 (three) times daily as needed for Dizziness. [facility] lisinopriL 2.5 mg tablet 11-20 00:00: 00 Yes [id number] 2.5mg Take 1 tablet by mouth daily. [facility] rosuvastati n 40 mg tablet 11-20 00:00: 00 Yes [id number] 40mg Take 1 tablet by mouth at bedtime. [facility] pioglitazon e-metformin 15-850 mg per tablet 11-20 00:00: 00 Yes [id number] .5{tbl} Take 0.5 tablets by mouth 2 (two) times daily with meals. [facility] Food Supplement, Lactose-Otis e (ENSURE HIGH PROTEIN) liquid 11-20 00:00: 00 Yes [id number] 1{can} Take 1 Can by mouth 3 (three) times daily with meals and at bedtime. [facility] tamsulosin 0.4 mg 24 hr capsule 11-20 00:00: 00 Yes [id number] 9102 .4mg Take 1 capsule by mouth daily. [facility] Diclofenac Sodium (VOLTAREN) 1 % gel 11-20 00:00: 00 Yes [id number] Apply to area(s) 4 (four) times daily. [facility] meclizine 25 mg tablet 11-20 00:00: 00 Yes [id number] 25mg Take 1 tablet by mouth 3 (three) times daily as needed for Dizziness. [facility] lisinopriL 2.5 mg tablet 11-20 00:00: 00 Yes [id number] 2.5mg Take 1 tablet by mouth daily. [facility] rosuvastati n 40 mg tablet 11-20 00:00: 00 Yes [id number] 40mg Take 1 tablet by mouth at bedtime. [facility] pioglitazon e-metformin 15-850 mg per tablet 11-20 00:00: 00 Yes [id number] .5{tbl} Take 0.5 tablets by mouth 2 (two) times daily with meals. [facility] Food Supplement, Lactose-Otis e (ENSURE HIGH PROTEIN) liquid 11-20 00:00: 00 Yes [id number] 1{can} Take 1 Can by mouth 3 (three) times daily with meals and at bedtime. [facility] tamsulosin 0.4 mg 24 hr capsule 11-20 00:00: 00 Yes [id number] 9102 .4mg Take 1 capsule by mouth daily. [facility] Diclofenac Sodium (VOLTAREN) 1 % gel 11-20 00:00: 00 Yes [id number] Apply to area(s) 4 (four) times daily. [facility] meclizine 25 mg tablet 11-20 00:00: 00 Yes [id number] 25mg Take 1 tablet by mouth 3 (three) times daily as needed for Dizziness. [facility] lisinopriL 2.5 mg tablet 11-20 00:00: 00 Yes [id number] 2.5mg Take 1 tablet by mouth daily. [facility] rosuvastati n 40 mg tablet 11-20 00:00: 00 Yes [id number] 40mg Take 1 tablet by mouth at bedtime. [facility] pioglitazon e-metformin 15-850 mg per tablet 11-20 00:00: 00 Yes [id number] .5{tbl} Take 0.5 tablets by mouth 2 (two) times daily with meals. [facility] Food Supplement, Lactose-Otis e (ENSURE HIGH PROTEIN) liquid 11-20 00:00: 00 Yes [id number] 1{can} Take 1 Can by mouth 3 (three) times daily with meals and at bedtime. [facility] tamsulosin 0.4 mg 24 hr capsule 11-20 00:00: 00 Yes [id number] 9102 .4mg Take 1 capsule by mouth daily. [facility] Diclofenac Sodium (VOLTAREN) 1 % gel 11-20 00:00: 00 Yes [id number] Apply to area(s) 4 (four) times daily. [facility] meclizine 25 mg tablet 11-20 00:00: 00 Yes [id number] 25mg Take 1 tablet by mouth 3 (three) times daily as needed for Dizziness. [facility] lisinopriL 2.5 mg tablet 11-20 00:00: 00 Yes [id number] 2.5mg Take 1 tablet by mouth daily. [facility] rosuvastati n 40 mg tablet 11-20 00:00: 00 Yes [id number] 40mg Take 1 tablet by mouth at bedtime. [facility] pioglitazon e-metformin 15-850 mg per tablet 11-20 00:00: 00 Yes [id number] .5{tbl} Take 0.5 tablets by mouth 2 (two) times daily with meals. [facility] Food Supplement, Lactose-Otis e (ENSURE HIGH PROTEIN) liquid 11-20 00:00: 00 Yes [id number] 1{can} Take 1 Can by mouth 3 (three) times daily with meals and at bedtime. [facility] tamsulosin 0.4 mg 24 hr capsule 11-20 00:00: 00 Yes [id number] 9102 .4mg Take 1 capsule by mouth daily. [facility] Diclofenac Sodium (VOLTAREN) 1 % gel 11-20 00:00: 00 Yes [id number] Apply to area(s) 4 (four) times daily. [facility] meclizine 25 mg tablet 11-20 00:00: 00 Yes [id number] 25mg Take 1 tablet by mouth 3 (three) times daily as needed for Dizziness. [facility] lisinopriL 2.5 mg tablet 11-20 00:00: 00 Yes [id number] 2.5mg Take 1 tablet by mouth daily. [facility] rosuvastati n 40 mg tablet 11-20 00:00: 00 Yes [id number] 40mg Take 1 tablet by mouth at bedtime. [facility] pioglitazon e-metformin 15-850 mg per tablet 11-20 00:00: 00 Yes [id number] .5{tbl} Take 0.5 tablets by mouth 2 (two) times daily with meals. [facility] Food Supplement, Lactose-Otis e (ENSURE HIGH PROTEIN) liquid 11-20 00:00: 00 Yes [id number] 1{can} Take 1 Can by mouth 3 (three) times daily with meals and at bedtime. [facility] tamsulosin 0.4 mg 24 hr capsule 11-20 00:00: 00 Yes [id number] 9102 .4mg Take 1 capsule by mouth daily. [facility] Diclofenac Sodium (VOLTAREN) 1 % gel 11-20 00:00: 00 Yes [id number] Apply to area(s) 4 (four) times daily. [facility] meclizine 25 mg tablet 11-20 00:00: 00 Yes [id number] 25mg Take 1 tablet by mouth 3 (three) times daily as needed for Dizziness. [facility] lisinopriL 2.5 mg tablet 11-20 00:00: 00 Yes [id number] 2.5mg Take 1 tablet by mouth daily. [facility] rosuvastati n 40 mg tablet 11-20 00:00: 00 Yes [id number] 40mg Take 1 tablet by mouth at bedtime. [facility] pioglitazon e-metformin 15-850 mg per tablet 11-20 00:00: 00 Yes [id number] .5{tbl} Take 0.5 tablets by mouth 2 (two) times daily with meals. [facility] Food Supplement, Lactose-Otis e (ENSURE HIGH PROTEIN) liquid 11-20 00:00: 00 Yes [id number] 1{can} Take 1 Can by mouth 3 (three) times daily with meals and at bedtime. [facility] tamsulosin 0.4 mg 24 hr capsule 11-20 00:00: 00 Yes [id number] 9102 .4mg Take 1 capsule by mouth daily. [facility] Diclofenac Sodium (VOLTAREN) 1 % gel 11-20 00:00: 00 Yes [id number] Apply to area(s) 4 (four) times daily. [facility] meclizine 25 mg tablet 11-20 00:00: 00 Yes [id number] 25mg Take 1 tablet by mouth 3 (three) times daily as needed for Dizziness. [facility] lisinopriL 2.5 mg tablet 11-20 00:00: 00 Yes [id number] 2.5mg Take 1 tablet by mouth daily. [facility] rosuvastati n 40 mg tablet 11-20 00:00: 00 Yes [id number] 40mg Take 1 tablet by mouth at bedtime. [facility] pioglitazon e-metformin 15-850 mg per tablet 11-20 00:00: 00 Yes [id number] .5{tbl} Take 0.5 tablets by mouth 2 (two) times daily with meals. [facility] Food Supplement, Lactose-Otis e (ENSURE HIGH PROTEIN) liquid 11-20 00:00: 00 Yes [id number] 1{can} Take 1 Can by mouth 3 (three) times daily with meals and at bedtime. [facility] tamsulosin 0.4 mg 24 hr capsule 11-20 00:00: 00 Yes [id number] 9102 .4mg Take 1 capsule by mouth daily. [facility] Diclofenac Sodium (VOLTAREN) 1 % gel 11-20 00:00: 00 Yes [id number] Apply to area(s) 4 (four) times daily. [facility] meclizine 25 mg tablet 11-20 00:00: 00 Yes [id number] 25mg Take 1 tablet by mouth 3 (three) times daily as needed for Dizziness. [facility] lisinopriL 2.5 mg tablet 11-20 00:00: 00 Yes [id number] 2.5mg Take 1 tablet by mouth daily. [facility] rosuvastati n 40 mg tablet 11-20 00:00: 00 Yes [id number] 40mg Take 1 tablet by mouth at bedtime. [facility] pioglitazon e-metformin 15-850 mg per tablet 11-20 00:00: 00 Yes [id number] .5{tbl} Take 0.5 tablets by mouth 2 (two) times daily with meals. [facility] Food Supplement, Lactose-Otis e (ENSURE HIGH PROTEIN) liquid 11-20 00:00: 00 Yes [id number] 1{can} Take 1 Can by mouth 3 (three) times daily with meals and at bedtime. [facility] tamsulosin 0.4 mg 24 hr capsule 11-20 00:00: 00 Yes [id number] 9102 .4mg Take 1 capsule by mouth daily. [facility] Diclofenac Sodium (VOLTAREN) 1 % gel 11-20 00:00: 00 Yes [id number] Apply to area(s) 4 (four) times daily. [facility] meclizine 25 mg tablet 11-20 00:00: 00 Yes [id number] 25mg Take 1 tablet by mouth 3 (three) times daily as needed for Dizziness. [facility] lisinopriL 2.5 mg tablet 11-20 00:00: 00 Yes [id number] 2.5mg Take 1 tablet by mouth daily. [facility] rosuvastati n 40 mg tablet 11-20 00:00: 00 Yes [id number] 40mg Take 1 tablet by mouth at bedtime. [facility] pioglitazon e-metformin 15-850 mg per tablet 11-20 00:00: 00 Yes [id number] .5{tbl} Take 0.5 tablets by mouth 2 (two) times daily with meals. [facility] Food Supplement, Lactose-Otis e (ENSURE HIGH PROTEIN) liquid 11-20 00:00: 00 Yes [id number] 1{can} Take 1 Can by mouth 3 (three) times daily with meals and at bedtime. [facility] tamsulosin 0.4 mg 24 hr capsule 11-20 00:00: 00 Yes [id number] 9102 .4mg Take 1 capsule by mouth daily. [facility] Diclofenac Sodium (VOLTAREN) 1 % gel 11-20 00:00: 00 Yes [id number] Apply to area(s) 4 (four) times daily. [facility] meclizine 25 mg tablet 11-20 00:00: 00 Yes [id number] 25mg Take 1 tablet by mouth 3 (three) times daily as needed for Dizziness. [facility] lisinopriL 2.5 mg tablet 11-20 00:00: 00 Yes [id number] 2.5mg Take 1 tablet by mouth daily. [facility] rosuvastati n 40 mg tablet 11-20 00:00: 00 Yes [id number] 40mg Take 1 tablet by mouth at bedtime. [facility] pioglitazon e-metformin 15-850 mg per tablet 11-20 00:00: 00 Yes [id number] .5{tbl} Take 0.5 tablets by mouth 2 (two) times daily with meals. [facility] Food Supplement, Lactose-Otis e (ENSURE HIGH PROTEIN) liquid 11-20 00:00: 00 Yes [id number] 1{can} Take 1 Can by mouth 3 (three) times daily with meals and at bedtime. [facility] tamsulosin 0.4 mg 24 hr capsule 11-20 00:00: 00 Yes [id number] 9102 .4mg Take 1 capsule by mouth daily. [facility] Diclofenac Sodium (VOLTAREN) 1 % gel 11-20 00:00: 00 Yes [id number] Apply to area(s) 4 (four) times daily. [facility] meclizine 25 mg tablet 11-20 00:00: 00 Yes [id number] 25mg Take 1 tablet by mouth 3 (three) times daily as needed for Dizziness. [facility] lisinopriL 2.5 mg tablet 11-20 00:00: 00 Yes [id number] 2.5mg Take 1 tablet by mouth daily. [facility] rosuvastati n 40 mg tablet 11-20 00:00: 00 Yes [id number] 40mg Take 1 tablet by mouth at bedtime. [facility] pioglitazon e-metformin 15-850 mg per tablet 11-20 00:00: 00 Yes [id number] .5{tbl} Take 0.5 tablets by mouth 2 (two) times daily with meals. [facility] Food Supplement, Lactose-Otis e (ENSURE HIGH PROTEIN) liquid 11-20 00:00: 00 Yes [id number] 1{can} Take 1 Can by mouth 3 (three) times daily with meals and at bedtime. [facility] tamsulosin 0.4 mg 24 hr capsule 11-20 00:00: 00 Yes [id number] 9102 .4mg Take 1 capsule by mouth daily. [facility] Diclofenac Sodium (VOLTAREN) 1 % gel 11-20 00:00: 00 Yes [id number] Apply to area(s) 4 (four) times daily. [facility] meclizine 25 mg tablet 11-20 00:00: 00 Yes [id number] 25mg Take 1 tablet by mouth 3 (three) times daily as needed for Dizziness. [facility] lisinopriL 2.5 mg tablet 11-20 00:00: 00 Yes [id number] 2.5mg Take 1 tablet by mouth daily. [facility] pioglitazon e-metformin 15-850 mg per tablet 11-20 00:00: 00 Yes [id number] .5{tbl} Take 0.5 tablets by mouth 2 (two) times daily with meals. [facility] Food Supplement, Lactose-Otis e (ENSURE HIGH PROTEIN) liquid 11-20 00:00: 00 Yes [id number] 1{can} Take 1 Can by mouth 3 (three) times daily with meals and at bedtime. [facility] tamsulosin 0.4 mg 24 hr capsule 11-20 00:00: 00 Yes [id number] 9102 .4mg Take 1 capsule by mouth daily. [facility] Diclofenac Sodium (VOLTAREN) 1 % gel 11-20 00:00: 00 Yes [id number] Apply to area(s) 4 (four) times daily. [facility] meclizine 25 mg tablet 11-20 00:00: 00 Yes [id number] 25mg Take 1 tablet by mouth 3 (three) times daily as needed for Dizziness. [facility] lisinopriL 2.5 mg tablet 11-20 00:00: 00 Yes [id number] 2.5mg Take 1 tablet by mouth daily. [facility] pioglitazon e-metformin 15-850 mg per tablet 11-20 00:00: 00 Yes [id number] .5{tbl} Take 0.5 tablets by mouth 2 (two) times daily with meals. [facility] Food Supplement, Lactose-Otis e (ENSURE HIGH PROTEIN) liquid 11-20 00:00: 00 Yes [id number] 1{can} Take 1 Can by mouth 3 (three) times daily with meals and at bedtime. [facility] tamsulosin 0.4 mg 24 hr capsule 11-20 00:00: 00 Yes [id number] 9102 .4mg Take 1 capsule by mouth daily. [facility] Diclofenac Sodium (VOLTAREN) 1 % gel 11-20 00:00: 00 Yes [id number] Apply to area(s) 4 (four) times daily. [facility] meclizine 25 mg tablet 11-20 00:00: 00 Yes [id number] 25mg Take 1 tablet by mouth 3 (three) times daily as needed for Dizziness. [facility] lisinopriL 2.5 mg tablet 11-20 00:00: 00 Yes [id number] 2.5mg Take 1 tablet by mouth daily. [facility] pioglitazon e-metformin 15-850 mg per tablet 11-20 00:00: 00 Yes [id number] .5{tbl} Take 0.5 tablets by mouth 2 (two) times daily with meals. [facility] Food Supplement, Lactose-Otis e (ENSURE HIGH PROTEIN) liquid 11-20 00:00: 00 Yes [id number] 1{can} Take 1 Can by mouth 3 (three) times daily with meals and at bedtime. [facility] tamsulosin 0.4 mg 24 hr capsule 11-20 00:00: 00 Yes [id number] 9102 .4mg Take 1 capsule by mouth daily. [facility] Diclofenac Sodium (VOLTAREN) 1 % gel 11-20 00:00: 00 Yes [id number] Apply to area(s) 4 (four) times daily. [facility] meclizine 25 mg tablet 11-20 00:00: 00 Yes [id number] 25mg Take 1 tablet by mouth 3 (three) times daily as needed for Dizziness. [facility] lisinopriL 2.5 mg tablet 11-20 00:00: 00 Yes [id number] 2.5mg Take 1 tablet by mouth daily. [facility] pioglitazon e-metformin 15-850 mg per tablet 11-20 00:00: 00 Yes [id number] .5{tbl} Take 0.5 tablets by mouth 2 (two) times daily with meals. [facility] Food Supplement, Lactose-Otis e (ENSURE HIGH PROTEIN) liquid 11-20 00:00: 00 Yes [id number] 1{can} Take 1 Can by mouth 3 (three) times daily with meals and at bedtime. [facility] tamsulosin 0.4 mg 24 hr capsule 11-20 00:00: 00 Yes [id number] 9102 .4mg Take 1 capsule by mouth daily. [facility] Diclofenac Sodium (VOLTAREN) 1 % gel 11-20 00:00: 00 Yes [id number] Apply to area(s) 4 (four) times daily. [facility] meclizine 25 mg tablet 11-20 00:00: 00 Yes [id number] 25mg Take 1 tablet by mouth 3 (three) times daily as needed for Dizziness. [facility] lisinopriL 2.5 mg tablet 11-20 00:00: 00 Yes [id number] 2.5mg Take 1 tablet by mouth daily. [facility] pioglitazon e-metformin 15-850 mg per tablet 11-20 00:00: 00 Yes [id number] .5{tbl} Take 0.5 tablets by mouth 2 (two) times daily with meals. [facility] Food Supplement, Lactose-Otis e (ENSURE HIGH PROTEIN) liquid 11-20 00:00: 00 Yes [id number] 1{can} Take 1 Can by mouth 3 (three) times daily with meals and at bedtime. [facility] tamsulosin 0.4 mg 24 hr capsule 11-20 00:00: 00 Yes [id number] 9102 .4mg Take 1 capsule by mouth daily. [facility] Diclofenac Sodium (VOLTAREN) 1 % gel 11-20 00:00: 00 Yes [id number] Apply to area(s) 4 (four) times daily. [facility] meclizine 25 mg tablet 11-20 00:00: 00 Yes [id number] 25mg Take 1 tablet by mouth 3 (three) times daily as needed for Dizziness. [facility] lisinopriL 2.5 mg tablet 11-20 00:00: 00 Yes [id number] 2.5mg Take 1 tablet by mouth daily. [facility] pioglitazon e-metformin 15-850 mg per tablet 11-20 00:00: 00 Yes [id number] .5{tbl} Take 0.5 tablets by mouth 2 (two) times daily with meals. [facility] Food Supplement, Lactose-Otis e (ENSURE HIGH PROTEIN) liquid 11-20 00:00: 00 Yes [id number] 1{can} Take 1 Can by mouth 3 (three) times daily with meals and at bedtime. [facility] tamsulosin 0.4 mg 24 hr capsule 11-20 00:00: 00 Yes [id number] 9102 .4mg Take 1 capsule by mouth daily. [facility] Diclofenac Sodium (VOLTAREN) 1 % gel 11-20 00:00: 00 Yes [id number] Apply to area(s) 4 (four) times daily. [facility] meclizine 25 mg tablet 11-20 00:00: 00 Yes [id number] 25mg Take 1 tablet by mouth 3 (three) times daily as needed for Dizziness. [facility] lisinopriL 2.5 mg tablet 11-20 00:00: 00 Yes [id number] 2.5mg Take 1 tablet by mouth daily. [facility] pioglitazon e-metformin 15-850 mg per tablet 11-20 00:00: 00 Yes [id number] .5{tbl} Take 0.5 tablets by mouth 2 (two) times daily with meals. [facility] Food Supplement, Lactose-Otis e (ENSURE HIGH PROTEIN) liquid 11-20 00:00: 00 Yes [id number] 1{can} Take 1 Can by mouth 3 (three) times daily with meals and at bedtime. [facility] tamsulosin 0.4 mg 24 hr capsule 11-20 00:00: 00 Yes [id number] 9102 .4mg Take 1 capsule by mouth daily. [facility] Diclofenac Sodium (VOLTAREN) 1 % gel 11-20 00:00: 00 Yes [id number] Apply to area(s) 4 (four) times daily. [facility] meclizine 25 mg tablet 11-20 00:00: 00 Yes [id number] 25mg Take 1 tablet by mouth 3 (three) times daily as needed for Dizziness. [facility] lisinopriL 2.5 mg tablet 11-20 00:00: 00 Yes [id number] 2.5mg Take 1 tablet by mouth daily. [facility] pioglitazon e-metformin 15-850 mg per tablet 11-20 00:00: 00 Yes [id number] .5{tbl} Take 0.5 tablets by mouth 2 (two) times daily with meals. [facility] Food Supplement, Lactose-Otis e (ENSURE HIGH PROTEIN) liquid 0 14 00:00: 00 Yes [id number] 1{can} Take 1 Can by mouth 3 (three) times daily with meals and at bedtime. [facility] mecl[facility]ine 25 mg tablet 2022-0 14 00:00: 00 Yes [id number] 25mg Take 1 tablet by mouth 3 (three) times daily as needed for Dizziness. [facility] mecl[facility]ine 25 mg tablet 2022-0 14 00:00: 00 Yes [id number] 25mg Take 1 tablet by mouth 3 (three) times daily as needed for Dizziness. [facility] meclizine 25 mg tablet 2022-0 14 00:00: 00 Yes [id number] 25mg Take 1 tablet by mouth 3 (three) times daily as needed for Dizziness. [facility] meclizine 25 mg tablet 2022-0 14 00:00: 00 Yes [id number] 25mg Take 1 tablet by mouth 3 (three) times daily as needed for Dizziness. [facility] meclizine 25 mg tablet 2022-0 14 00:00: 00 Yes [id number] 25mg Take 1 tablet by mouth 3 (three) times daily as needed for Dizziness. [facility] meclizine 25 mg tablet 2022-0 14 00:00: 00 Yes [id number] 25mg Take 1 tablet by mouth 3 (three) times daily as needed for Dizziness. [facility] meclizine 25 mg tablet 2022-0 -14 00:00: 00 Yes [id number] 25mg Take 1 tablet by mouth 3 (three) times daily as needed for Dizziness. [facility] meclizine 25 mg tablet 3-0 -14 00:00: 00 Yes [id number] 25mg Take 1 tablet by mouth 3 (three) times daily as needed for Dizziness. [facility] meclizine 25 mg tablet 3-0 -14 00:00: 00 Yes [id number] 25mg Take 1 tablet by mouth 3 (three) times daily as needed for Dizziness. [facility] meclizine 25 mg tablet 2023-0 4-14 00:00: 00 Yes [id number] 25mg Take 1 tablet by mouth 3 (three) times daily as needed for Dizziness. [facility] meclizine 25 mg tablet 2023-0 4-14 00:00: 00 Yes [id number] 25mg Take 1 tablet by mouth 3 (three) times daily as needed for Dizziness. [facility] me[facility]ine 25 mg tablet 2023-0 4-14 00:00: 00 Yes [id number] 25mg Take 1 tablet by mouth 3 (three) times daily as needed for Dizziness. [facility] meclizine 25 mg tablet 2023-0 4-14 00:00: 00 Yes [id number] 25mg Take 1 tablet by mouth 3 (three) times daily as needed for Dizziness. [facility] meclizine 25 mg tablet 2023-0 4-14 00:00: 00 Yes [id number] 25mg Take 1 tablet by mouth 3 (three) times daily as needed for Dizziness. [facility] meclizine 25 mg tablet 2023-0 4-14 00:00: 00 Yes [id number] 25mg Take 1 tablet by mouth 3 (three) times daily as needed for Dizziness. [facility] meclizine 25 mg tablet 3-0 4-14 00:00: 00 Yes [id number] 25mg Take 1 tablet by mouth 3 (three) times daily as needed for Dizziness. [facility] meclizine 25 mg tablet 2023-0 4-14 00:00: 00 Yes [id number] 25mg Take 1 tablet by mouth 3 (three) times daily as needed for Dizziness. [facility] meclizine 25 mg tablet 2023-0 4-14 00:00: 00 Yes [id number] 25mg Take 1 tablet by mouth 3 (three) times daily as needed for Dizziness. [facility] meclizine 25 mg tablet 2023-0 4-14 00:00: 00 Yes [id number] 25mg Take 1 tablet by mouth 3 (three) times daily as needed for Dizziness. [facility] meclizine 25 mg tablet 2023-0 4-14 00:00: 00 Yes [id number] 25mg Take 1 tablet by mouth 3 (three) times daily as needed for Dizziness. [facility] meclizine 25 mg tablet 2023-0 4-14 00:00: 00 Yes [id number] 25mg Take 1 tablet by mouth 3 (three) times daily as needed for Dizziness. [facility] meclizine 25 mg tablet 2023-0 4-14 00:00: 00 Yes [id number] 25mg Take 1 tablet by mouth 3 (three) times daily as needed for Dizziness. [facility] meclizine 25 mg tablet 3-0 4-14 00:00: 00 Yes [id number] 25mg Take 1 tablet by mouth 3 (three) times daily as needed for Dizziness. [facility] meclizine 25 mg tablet 2023-0 4-14 00:00: 00 Yes [id number] 25mg Take 1 tablet by mouth 3 (three) times daily as needed for Dizziness. [facility] meclizine 25 mg tablet 3-0 4-14 00:00: 00 Yes [id number] 25mg Take 1 tablet by mouth 3 (three) times daily as needed for Dizziness. [facility] meclizine 25 mg tablet 3-0 4-14 00:00: 00 Yes [id number] 25mg Take 1 tablet by mouth 3 (three) times daily as needed for Dizziness. [facility] meclizine 25 mg tablet 2023-0 4-14 00:00: 00 Yes [id number] 25mg Take 1 tablet by mouth 3 (three) times daily as needed for Dizziness. [facility] meclizine 25 mg tablet 2023-0 4-14 00:00: 00 Yes [id number] 25mg Take 1 tablet by mouth 3 (three) times daily as needed for Dizziness. [facility] meclizine 25 mg tablet 2023-0 4-14 00:00: 00 Yes [id number] 25mg Take 1 tablet by mouth 3 (three) times daily as needed for Dizziness. [facility] meclizine 25 mg tablet 2023-0 4-14 00:00: 00 Yes [id number] 25mg Take 1 tablet by mouth 3 (three) times daily as needed for Dizziness. [facility] meclizine 25 mg tablet 2023-0 4-14 00:00: 00 Yes [id number] 25mg Take 1 tablet by mouth 3 (three) times daily as needed for Dizziness. [facility] meclizine 25 mg tablet 2023-0 4-14 00:00: 00 Yes [id number] 25mg Take 1 tablet by mouth 3 (three) times daily as needed for Dizziness. [facility] meclizine 25 mg tablet 2023-0 4-14 00:00: 00 Yes [id number] 25mg Take 1 tablet by mouth 3 (three) times daily as needed for Dizziness. [facility] meclizine 25 mg tablet 3-0 4-14 00:00: 00 Yes [id number] 25mg Take 1 tablet by mouth 3 (three) times daily as needed for Dizziness. [facility] meclizine 25 mg tablet 2023-0 4-14 00:00: 00 Yes [id number] 25mg Take 1 tablet by mouth 3 (three) times daily as needed for Dizziness. [facility] meclizine 25 mg tablet 3-0 4-14 00:00: 00 Yes [id number] 25mg Take 1 tablet by mouth 3 (three) times daily as needed for Dizziness. [facility] meclizine 25 mg tablet 2023-0 4-14 00:00: 00 Yes [id number] 25mg Take 1 tablet by mouth 3 (three) times daily as needed for Dizziness. [facility] meclizine 25 mg tablet 2023-0 4-14 00:00: 00 Yes [id number] 25mg Take 1 tablet by mouth 3 (three) times daily as needed for Dizziness. [facility] meclizine 25 mg tablet 2023-0 4-14 00:00: 00 Yes [id number] 25mg Take 1 tablet by mouth 3 (three) times daily as needed for Dizziness. [facility] meclizine 25 mg tablet 2023-0 4-14 00:00: 00 Yes [id number] 25mg Take 1 tablet by mouth 3 (three) times daily as needed for Dizziness. [facility] meclizine 25 mg tablet 2023-0 4-14 00:00: 00 Yes [id number] 25mg Take 1 tablet by mouth 3 (three) times daily as needed for Dizziness. [facility] meclizine 25 mg tablet 2023-0 4-14 00:00: 00 Yes [id number] 25mg Take 1 tablet by mouth 3 (three) times daily as needed for Dizziness. [facility] meclizine 25 mg tablet 2023-0 4-14 00:00: 00 Yes [id number] 25mg Take 1 tablet by mouth 3 (three) times daily as needed for Dizziness. [facility] meclizine 25 mg tablet 2023-0 4-14 00:00: 00 Yes [id number] 25mg Take 1 tablet by mouth 3 (three) times daily as needed for Dizziness. [facility] meclizine 25 mg tablet 2023-0 4-14 00:00: 00 Yes [id number] 25mg Take 1 tablet by mouth 3 (three) times daily as needed for Dizziness. [facility] meclizine 25 mg tablet 2023-0 4-14 00:00: 00 Yes [id number] 25mg Take 1 tablet by mouth 3 (three) times daily as needed for Dizziness. [facility] meclizine 25 mg tablet 2023-0 4-14 00:00: 00 Yes [id number] 25mg Take 1 tablet by mouth 3 (three) times daily as needed for Dizziness. [facility] meclizine 25 mg tablet 2023-0 4-14 00:00: 00 Yes [id number] 25mg Take 1 tablet by mouth 3 (three) times daily as needed for Dizziness. [facility] meclizine 25 mg tablet 2023-0 4-14 00:00: 00 Yes [id number] 25mg Take 1 tablet by mouth 3 (three) times daily as needed for Dizziness. [facility] meclizine 25 mg tablet 2023-0 4-14 00:00: 00 Yes [id number] 25mg Take 1 tablet by mouth 3 (three) times daily as needed for Dizziness. [facility] meclizine 25 mg tablet 2023-0 4-14 00:00: 00 Yes [id number] 25mg Take 1 tablet by mouth 3 (three) times daily as needed for Dizziness. [facility] meclizine 25 mg tablet 2023-0 4-14 00:00: 00 Yes [id number] 25mg Take 1 tablet by mouth 3 (three) times daily as needed for Dizziness. [facility] meclizine 25 mg tablet 2023-0 4-14 00:00: 00 Yes [id number] 25mg Take 1 tablet by mouth 3 (three) times daily as needed for Dizziness. [facility] meclizine 25 mg tablet 3-0 4-14 00:00: 00 Yes [id number] 25mg Take 1 tablet by mouth 3 (three) times daily as needed for Dizziness. [facility] meclizine 25 mg tablet 3-0 4-14 00:00: 00 Yes [id number] 25mg Take 1 tablet by mouth 3 (three) times daily as needed for Dizziness. [facility] meclizine 25 mg tablet 3-0 4-14 00:00: 00 Yes [id number] 25mg Take 1 tablet by mouth 3 (three) times daily as needed for Dizziness. [facility] meclizine 25 mg tablet 3-0 4-14 00:00: 00 Yes [id number] 25mg Take 1 tablet by mouth 3 (three) times daily as needed for Dizziness. [facility] meclizine 25 mg tablet 2023-0 4-14 00:00: 00 Yes [id number] 25mg Take 1 tablet by mouth 3 (three) times daily as needed for Dizziness. [facility] meclizine 25 mg tablet 2023-0 4-14 00:00: 00 Yes [id number] 25mg Take 1 tablet by mouth 3 (three) times daily as needed for Dizziness. [facility] meclizine 25 mg tablet 2023-0 4-14 00:00: 00 Yes [id number] 25mg Take 1 tablet by mouth 3 (three) times daily as needed for Dizziness. [facility] meclizine 25 mg tablet 2023-0 4-14 00:00: 00 Yes [id number] 25mg Take 1 tablet by mouth 3 (three) times daily as needed for Dizziness. [facility] meclizine 25 mg tablet 0 4-14 00:00: 00 Yes [id number] 25mg Take 1 tablet by mouth 3 (three) times daily as needed for Dizziness. [facility] meclizine 25 mg tablet 0 14 00:00: 00 Yes [id number] 25mg Take 1 tablet by mouth 3 (three) times daily as needed for Dizziness. [facility] meclizine 25 mg tablet 0 14 00:00: 00 Yes [id number] 25mg Take 1 tablet by mouth 3 (three) times daily as needed for Dizziness. [facility] meclizine 25 mg tablet 0 14 00:00: 00 Yes [id number] 25mg Take 1 tablet by mouth 3 (three) times daily as needed for Dizziness. [facility] meclizine 25 mg tablet 0 14 00:00: 00 Yes [id number] 25mg Take 1 tablet by mouth 3 (three) times daily as needed for Dizziness. [facility] meclizine 25 mg tablet 0 14 00:00: 00 Yes [id number] 25mg Take 1 tablet by mouth 3 (three) times daily as needed for Dizziness. [facility] tamsulosin 0.4 mg 24 hr capsule 14 00:00: 00 05-26 00:00 :00 No [id number] 9102 .4mg Take 1 capsule by mouth daily. [facility] lisinopriL 2.5 mg tablet 14 00:00: 00 05-26 00:00 :00 No [id number] 2.5mg Take 1 tablet by mouth daily. [facility] Diclofenac Sodium (VOLTAREN) 1 % gel 14 00:00: 00 05-21 00:00 :00 No [id number] Apply to area(s) 4 (four) times daily. [facility] pioglitazon e-metformin 15-850 mg per tablet 14 00:00: 00 05-21 00:00 :00 No [id number] .5{tbl} Take 0.5 tablets by mouth 2 (two) times daily with meals. [facility] Food Supplement, Lactose-Otis e (ENSURE HIGH PROTEIN) liquid 11-20 00:00: 00 05-21 00:00 :00 No [id number] 1{can} Take 1 Can by mouth 3 (three) times daily with meals and at bedtime. [facility] rosuvastati n 40 mg tablet 11-20 00:00: 00 05-19 00:00 :00 No [id number] 40mg Take 1 tablet by mouth at bedtime. [facility] rosuvastati n 40 mg tablet 11-20 00:00: 00 05-19 00:00 :00 No [id number] 40mg Take 1 tablet by mouth at bedtime. [facility] rosuvastati n 40 mg tablet 14 00:00: 00 05-19 00:00 :00 No [id number] 40mg Take 1 tablet by mouth at bedtime. [facility] rosuvastati n 40 mg tablet 14 00:00: 00 05-19 00:00 :00 No [id number] 40mg Take 1 tablet by mouth at bedtime. [facility] rosuvastati n 40 mg tablet 14 00:00: 00 05-19 00:00 :00 No [id number] 40mg Take 1 tablet by mouth at bedtime. [facility] Fenofibrate 160 mg tablet 14 00:00: 00 04-02 00:00 :00 No 160mg Take 1 tablet by mouth daily. [facility] gabapentin 300 mg capsule 14 00:00: 00 12-03 00:00 :00 No [id number] 600mg Take 2 capsules by mouth 2 (two) times daily. [facility] gabapentin 300 mg capsule 3-0 4-14 00:00: 00 12-03 00:00 :00 No [id number] 600mg Take 2 capsules by mouth 2 (two) times daily. [facility] gabapentin 300 mg capsule 3-0 4-14 00:00: 00 12-03 00:00 :00 No [id number] 600mg Take 2 capsules by mouth 2 (two) times daily. [facility] FINASTERIDE 5 mg tablet 2023-0 4-07 00:00: 00 Yes [id number] 9102 TAKE ONE (1) TABLET(S) BY MOUTH ONCE A DAY. [facility] FINASTERIDE 5 mg tablet 3-0 4-07 00:00: 00 Yes [id number] 9102 TAKE ONE (1) TABLET(S) BY MOUTH ONCE A DAY. [facility] FINASTERIDE 5 mg tablet 2023-0 4-07 00:00: 00 Yes [id number] 9102 TAKE ONE (1) TABLET(S) BY MOUTH ONCE A DAY. [facility] FINASTERIDE 5 mg tablet 3-0 4-07 00:00: 00 Yes [id number] 9102 TAKE ONE (1) TABLET(S) BY MOUTH ONCE A DAY. [facility] FINASTERIDE 5 mg tablet 2023-0 4-07 00:00: 00 Yes [id number] 9102 TAKE ONE (1) TABLET(S) BY MOUTH ONCE A DAY. [facility] FINASTERIDE 5 mg tablet 2023-0 4-07 00:00: 00 Yes [id number] 9102 TAKE ONE (1) TABLET(S) BY MOUTH ONCE A DAY. [facility] FINASTERIDE 5 mg tablet 2023-0 4-07 00:00: 00 Yes [id number] 9102 TAKE ONE (1) TABLET(S) BY MOUTH ONCE A DAY. [facility] FINASTERIDE 5 mg tablet 2023-0 4-07 00:00: 00 Yes [id number] 9102 TAKE ONE (1) TABLET(S) BY MOUTH ONCE A DAY. [facility] FINASTERIDE 5 mg tablet 2023-0 4-07 00:00: 00 Yes [id number] 9102 TAKE ONE (1) TABLET(S) BY MOUTH ONCE A DAY. [facility] FINASTERIDE 5 mg tablet 2023-0 4-07 00:00: 00 Yes [id number] 9102 TAKE ONE (1) TABLET(S) BY MOUTH ONCE A DAY. [facility] FINASTERIDE 5 mg tablet 2023-0 4-07 00:00: 00 Yes [id number] 9102 TAKE ONE (1) TABLET(S) BY MOUTH ONCE A DAY. [facility] FINASTERIDE 5 mg tablet 2023-0 4-07 00:00: 00 Yes [id number] 9102 TAKE ONE (1) TABLET(S) BY MOUTH ONCE A DAY. [facility] FINASTERIDE 5 mg tablet 2023-0 4-07 00:00: 00 Yes [id number] 9102 TAKE ONE (1) TABLET(S) BY MOUTH ONCE A DAY. [facility] FINASTERIDE 5 mg tablet 2023-0 4-07 00:00: 00 Yes [id number] 9102 TAKE ONE (1) TABLET(S) BY MOUTH ONCE A DAY. [facility] FINASTERIDE 5 mg tablet 2023-0 -07 00:00: 00 Yes [id number] 9102 TAKE ONE (1) TABLET(S) BY MOUTH ONCE A DAY. [facility] FINASTERIDE 5 mg tablet 2023-0 4-07 00:00: 00 Yes [id number] 9102 TAKE ONE (1) TABLET(S) BY MOUTH ONCE A DAY. [facility] FINASTERIDE 5 mg tablet 2023-0 4-07 00:00: 00 Yes [id number] 9102 TAKE ONE (1) TABLET(S) BY MOUTH ONCE A DAY. [facility] FINASTERIDE 5 mg tablet 2023-0 4-07 00:00: 00 Yes [id number] 9102 TAKE ONE (1) TABLET(S) BY MOUTH ONCE A DAY. [facility] FINASTERIDE 5 mg tablet 2023-0 4-07 00:00: 00 Yes [id number] 9102 TAKE ONE (1) TABLET(S) BY MOUTH ONCE A DAY. [facility] FINASTERIDE 5 mg tablet 2023-0 4-07 00:00: 00 Yes [id number] 9102 TAKE ONE (1) TABLET(S) BY MOUTH ONCE A DAY. [facility] FINASTERIDE 5 mg tablet 2023-0 4-07 00:00: 00 Yes [id number] 9102 TAKE ONE (1) TABLET(S) BY MOUTH ONCE A DAY. [facility] FINASTERIDE 5 mg tablet 2023-0 4-07 00:00: 00 Yes [id number] 9102 TAKE ONE (1) TABLET(S) BY MOUTH ONCE A DAY. [facility] FINASTERIDE 5 mg tablet 2023-0 4-07 00:00: 00 Yes [id number] 9102 TAKE ONE (1) TABLET(S) BY MOUTH ONCE A DAY. [facility] FINASTERIDE 5 mg tablet 2023-0 4-07 00:00: 00 Yes [id number] 9102 TAKE ONE (1) TABLET(S) BY MOUTH ONCE A DAY. [facility] FINASTERIDE 5 mg tablet 2023-0 4-07 00:00: 00 Yes [id number] 9102 TAKE ONE (1) TABLET(S) BY MOUTH ONCE A DAY. [facility] FINASTERIDE 5 mg tablet 2023-0 4-07 00:00: 00 Yes [id number] 9102 TAKE ONE (1) TABLET(S) BY MOUTH ONCE A DAY. [facility] FINASTERIDE 5 mg tablet 2023-0 4-07 00:00: 00 Yes [id number] 9102 TAKE ONE (1) TABLET(S) BY MOUTH ONCE A DAY. [facility] FINASTERIDE 5 mg tablet 2023-0 4-07 00:00: 00 Yes [id number] 9102 TAKE ONE (1) TABLET(S) BY MOUTH ONCE A DAY. [facility] FINASTERIDE 5 mg tablet 2023-0 4-07 00:00: 00 Yes [id number] 9102 TAKE ONE (1) TABLET(S) BY MOUTH ONCE A DAY. [facility] FINASTERIDE 5 mg tablet 2023-0 4-07 00:00: 00 Yes [id number] 9102 TAKE ONE (1) TABLET(S) BY MOUTH ONCE A DAY. [facility] FINASTERIDE 5 mg tablet 2023-0 4-07 00:00: 00 Yes [id number] 9102 TAKE ONE (1) TABLET(S) BY MOUTH ONCE A DAY. [facility] FINASTERIDE 5 mg tablet 2023-0 4-07 00:00: 00 Yes [id number] 9102 TAKE ONE (1) TABLET(S) BY MOUTH ONCE A DAY. [facility] FINASTERIDE 5 mg tablet 2023-0 4-07 00:00: 00 Yes [id number] 9102 TAKE ONE (1) TABLET(S) BY MOUTH ONCE A DAY. [facility] FINASTERIDE 5 mg tablet 3-0 4-07 00:00: 00 Yes [id number] 9102 TAKE ONE (1) TABLET(S) BY MOUTH ONCE A DAY. [facility] FINASTERIDE 5 mg tablet 2023-0 -07 00:00: 00 Yes [id number] 9102 TAKE ONE (1) TABLET(S) BY MOUTH ONCE A DAY. [facility] FINASTERIDE 5 mg tablet 2023-0 07 00:00: 00 Yes [id number] 9102 TAKE ONE (1) TABLET(S) BY MOUTH ONCE A DAY. [facility] FINASTERIDE 5 mg tablet 2023-0 07 00:00: 00 Yes [id number] 9102 TAKE ONE (1) TABLET(S) BY MOUTH ONCE A DAY. [facility] FINASTERIDE 5 mg tablet 2023-0 4-07 00:00: 00 Yes [id number] 9102 TAKE ONE (1) TABLET(S) BY MOUTH ONCE A DAY. [facility] FINASTERIDE 5 mg tablet 2023-0 4-07 00:00: 00 Yes [id number] 9102 TAKE ONE (1) TABLET(S) BY MOUTH ONCE A DAY. [facility] FINASTERIDE 5 mg tablet 2023-0 4-07 00:00: 00 Yes [id number] 9102 TAKE ONE (1) TABLET(S) BY MOUTH ONCE A DAY. [facility] FINASTERIDE 5 mg tablet 2023-0 4-07 00:00: 00 Yes [id number] 9102 TAKE ONE (1) TABLET(S) BY MOUTH ONCE A DAY. [facility] FINASTERIDE 5 mg tablet 2023-0 4-07 00:00: 00 Yes [id number] 9102 TAKE ONE (1) TABLET(S) BY MOUTH ONCE A DAY. [facility] FINASTERIDE 5 mg tablet 2023-0 4-07 00:00: 00 Yes [id number] 9102 TAKE ONE (1) TABLET(S) BY MOUTH ONCE A DAY. [facility] FINASTERIDE 5 mg tablet 2023-0 4 00:00: 00 Yes [id number] 9102 TAKE ONE (1) TABLET(S) BY MOUTH ONCE A DAY. [facility] FINASTERIDE 5 mg tablet 2023-0 11-13 00:00: 00 Yes [id number] 9102 TAKE ONE (1) TABLET(S) BY MOUTH ONCE A DAY. [facility] FINASTERIDE 5 mg tablet 2023-0 11-13 00:00: 00 Yes [id number] 9102 TAKE ONE (1) TABLET(S) BY MOUTH ONCE A DAY. [facility] FINASTERIDE 5 mg tablet 2023-0 11-13 00:00: 00 Yes [id number] 9102 TAKE ONE (1) TABLET(S) BY MOUTH ONCE A DAY. [facility] FINASTERIDE 5 mg tablet 2023-0 07 00:00: 00 Yes [id number] 9102 TAKE ONE (1) TABLET(S) BY MOUTH ONCE A DAY. [facility] FINASTERIDE 5 mg tablet 2023-0 4-07 00:00: 00 Yes [id number] 9102 TAKE ONE (1) TABLET(S) BY MOUTH ONCE A DAY. [facility] FINASTERIDE 5 mg tablet 2023-0 4-07 00:00: 00 Yes [id number] 9102 TAKE ONE (1) TABLET(S) BY MOUTH ONCE A DAY. [facility] FINASTERIDE 5 mg tablet 2023-0 4-07 00:00: 00 Yes [id number] 9102 TAKE ONE (1) TABLET(S) BY MOUTH ONCE A DAY. [facility] FINASTERIDE 5 mg tablet 2023-0 4-07 00:00: 00 Yes [id number] 9102 TAKE ONE (1) TABLET(S) BY MOUTH ONCE A DAY. [facility] FINASTERIDE 5 mg tablet 2023-0 4-07 00:00: 00 Yes [id number] 9102 TAKE ONE (1) TABLET(S) BY MOUTH ONCE A DAY. [facility] FINASTERIDE 5 mg tablet 2023-0 4-07 00:00: 00 Yes [id number] 9102 TAKE ONE (1) TABLET(S) BY MOUTH ONCE A DAY. [facility] FINASTERIDE 5 mg tablet 2023-0 407 00:00: 00 Yes [id number] 9102 TAKE ONE (1) TABLET(S) BY MOUTH ONCE A DAY. [facility] FINASTERIDE 5 mg tablet 2023-0 4-07 00:00: 00 Yes [id number] 9102 TAKE ONE (1) TABLET(S) BY MOUTH ONCE A DAY. [facility] FINASTERIDE 5 mg tablet 2023-0 07 00:00: 00 Yes [id number] 9102 TAKE ONE (1) TABLET(S) BY MOUTH ONCE A DAY. [facility] FINASTERIDE 5 mg tablet 2023-0 07 00:00: 00 Yes [id number] 9102 TAKE ONE (1) TABLET(S) BY MOUTH ONCE A DAY. [facility] FINASTERIDE 5 mg tablet 2023-0 4-07 00:00: 00 Yes [id number] 9102 TAKE ONE (1) TABLET(S) BY MOUTH ONCE A DAY. [facility] FINASTERIDE 5 mg tablet 2023-0 4-07 00:00: 00 Yes [id number] 9102 TAKE ONE (1) TABLET(S) BY MOUTH ONCE A DAY. [facility] FINASTERIDE 5 mg tablet 2023-0 4-07 00:00: 00 Yes [id number] 9102 TAKE ONE (1) TABLET(S) BY MOUTH ONCE A DAY. [facility] FINASTERIDE 5 mg tablet 2023-0 4-07 00:00: 00 Yes [id number] 9102 TAKE ONE (1) TABLET(S) BY MOUTH ONCE A DAY. [facility] FINASTERIDE 5 mg tablet 2023-0 4-07 00:00: 00 Yes [id number] 9102 TAKE ONE (1) TABLET(S) BY MOUTH ONCE A DAY. [facility] FINASTERIDE 5 mg tablet 2023-0 4-07 00:00: 00 Yes [id number] 9102 TAKE ONE (1) TABLET(S) BY MOUTH ONCE A DAY. [facility] FINASTERIDE 5 mg tablet 2023-0 4-07 00:00: 00 Yes [id number] 9102 TAKE ONE (1) TABLET(S) BY MOUTH ONCE A DAY. [facility] FINASTERIDE 5 mg tablet 2023-0 4-07 00:00: 00 Yes [id number] 9102 TAKE ONE (1) TABLET(S) BY MOUTH ONCE A DAY. [facility] FINASTERIDE 5 mg tablet 2023-0 4-07 00:00: 00 Yes [id number] 9102 TAKE ONE (1) TABLET(S) BY MOUTH ONCE A DAY. [facility] FINASTERIDE 5 mg tablet 2023-0 07 00:00: 00 Yes [id number] 9102 TAKE ONE (1) TABLET(S) BY MOUTH ONCE A DAY. [facility] FINASTERIDE 5 mg tablet 2023-0 407 00:00: 00 Yes [id number] 9102 TAKE ONE (1) TABLET(S) BY MOUTH ONCE A DAY. [facility] FINASTERIDE 5 mg tablet 2023-0 4-07 00:00: 00 Yes [id number] 9102 TAKE ONE (1) TABLET(S) BY MOUTH ONCE A DAY. [facility] FINASTERIDE 5 mg tablet 2023-0 4-07 00:00: 00 Yes [id number] 9102 TAKE ONE (1) TABLET(S) BY MOUTH ONCE A DAY. [facility] FINASTERIDE 5 mg tablet 2023-0 4-07 00:00: 00 Yes [id number] 9102 TAKE ONE (1) TABLET(S) BY MOUTH ONCE A DAY. [facility] FINASTERIDE 5 mg tablet 2023-0 4-07 00:00: 00 Yes [id number] 9102 TAKE ONE (1) TABLET(S) BY MOUTH ONCE A DAY. [facility] FINASTERIDE 5 mg tablet 2023-0 4-07 00:00: 00 Yes [id number] 9102 TAKE ONE (1) TABLET(S) BY MOUTH ONCE A DAY. [facility] FINASTERIDE 5 mg tablet 2023-0 4-07 00:00: 00 Yes [id number] 9102 TAKE ONE (1) TABLET(S) BY MOUTH ONCE A DAY. [facility] FINASTERIDE 5 mg tablet 2023-0 4-07 00:00: 00 Yes [id number] 9102 TAKE ONE (1) TABLET(S) BY MOUTH ONCE A DAY. [facility] FINASTERIDE 5 mg tablet 2023-0 4-07 00:00: 00 Yes [id number] 9102 TAKE ONE (1) TABLET(S) BY MOUTH ONCE A DAY. [facility] FINASTERIDE 5 mg tablet 2023-0 4-07 00:00: 00 Yes [id number] 9102 TAKE ONE (1) TABLET(S) BY MOUTH ONCE A DAY. [facility] FINASTERIDE 5 mg tablet 2023-0 407 00:00: 00 Yes [id number] 9102 TAKE ONE (1) TABLET(S) BY MOUTH ONCE A DAY. [facility] FINASTERIDE 5 mg tablet 2023-0 4-07 00:00: 00 Yes [id number] 9102 TAKE ONE (1) TABLET(S) BY MOUTH ONCE A DAY. [facility] FINASTERIDE 5 mg tablet 2023-0 4-07 00:00: 00 Yes [id number] 9102 TAKE ONE (1) TABLET(S) BY MOUTH ONCE A DAY. [facility] FINASTERIDE 5 mg tablet 2023-0 4-07 00:00: 00 Yes [id number] 9102 TAKE ONE (1) TABLET(S) BY MOUTH ONCE A DAY. [facility] FINASTERIDE 5 mg tablet 2023-0 4-07 00:00: 00 Yes [id number] 9102 TAKE ONE (1) TABLET(S) BY MOUTH ONCE A DAY. [facility] FINASTERIDE 5 mg tablet 2023-0 4-07 00:00: 00 Yes [id number] 9102 TAKE ONE (1) TABLET(S) BY MOUTH ONCE A DAY. [facility] FINASTERIDE 5 mg tablet 2023-0 4-07 00:00: 00 Yes [id number] 9102 TAKE ONE (1) TABLET(S) BY MOUTH ONCE A DAY. [facility] FINASTERIDE 5 mg tablet 2023-0 4-07 00:00: 00 Yes [id number] 9102 TAKE ONE (1) TABLET(S) BY MOUTH ONCE A DAY. [facility] FINASTERIDE 5 mg tablet 3-0 4-07 00:00: 00 Yes [id number] 9102 TAKE ONE (1) TABLET(S) BY MOUTH ONCE A DAY. [facility] FINASTERIDE 5 mg tablet 2023-0 4-07 00:00: 00 Yes [id number] 9102 TAKE ONE (1) TABLET(S) BY MOUTH ONCE A DAY. [facility] FINASTERIDE 5 mg tablet 2023-0 4-07 00:00: 00 Yes [id number] 9102 TAKE ONE (1) TABLET(S) BY MOUTH ONCE A DAY. [facility] FINASTERIDE 5 mg tablet 3-0 4-07 00:00: 00 Yes [id number] 9102 TAKE ONE (1) TABLET(S) BY MOUTH ONCE A DAY. [facility] FINASTERIDE 5 mg tablet 2023-0 4-07 00:00: 00 Yes [id number] 9102 TAKE ONE (1) TABLET(S) BY MOUTH ONCE A DAY. [facility] FINASTERIDE 5 mg tablet 2023-0 4-07 00:00: 00 Yes [id number] 9102 TAKE ONE (1) TABLET(S) BY MOUTH ONCE A DAY. [facility] FINASTERIDE 5 mg tablet 2023-0 4-07 00:00: 00 Yes [id number] 9102 TAKE ONE (1) TABLET(S) BY MOUTH ONCE A DAY. [facility] FINASTERIDE 5 mg tablet 2023-0 4-07 00:00: 00 Yes [id number] 9102 TAKE ONE (1) TABLET(S) BY MOUTH ONCE A DAY. [facility] FINASTERIDE 5 mg tablet 2023-0 4-07 00:00: 00 Yes [id number] 9102 TAKE ONE (1) TABLET(S) BY MOUTH ONCE A DAY. [facility] FINASTERIDE 5 mg tablet 2023-0 4-07 00:00: 00 Yes [id number] 9102 TAKE ONE (1) TABLET(S) BY MOUTH ONCE A DAY. [facility] FINASTERIDE 5 mg tablet 2023-0 4-07 00:00: 00 Yes [id number] 9102 TAKE ONE (1) TABLET(S) BY MOUTH ONCE A DAY. [facility] FINASTERIDE 5 mg tablet 2023-0 - 00:00: 00 Yes [id number] 9102 TAKE ONE (1) TABLET(S) BY MOUTH ONCE A DAY. [facility] FINASTERIDE 5 mg tablet 2023-0 4-07 00:00: 00 Yes [id number] 9102 TAKE ONE (1) TABLET(S) BY MOUTH ONCE A DAY. [facility] FINASTERIDE 5 mg tablet 2023-0 07 00:00: 00 Yes [id number] 9102 TAKE ONE (1) TABLET(S) BY MOUTH ONCE A DAY. [facility] FINASTERIDE 5 mg tablet 2023-0 407 00:00: 00 Yes [id number] 9102 TAKE ONE (1) TABLET(S) BY MOUTH ONCE A DAY. [facility] FINASTERIDE 5 mg tablet 2023-0 4-07 00:00: 00 Yes [id number] 9102 TAKE ONE (1) TABLET(S) BY MOUTH ONCE A DAY. [facility] FINASTERIDE 5 mg tablet 2023-0 4-07 00:00: 00 Yes [id number] 9102 TAKE ONE (1) TABLET(S) BY MOUTH ONCE A DAY. [facility] FINASTERIDE 5 mg tablet 2023-0 4-07 00:00: 00 Yes [id number] 9102 TAKE ONE (1) TABLET(S) BY MOUTH ONCE A DAY. [facility] FINASTERIDE 5 mg tablet 2023-0 4-07 00:00: 00 Yes [id number] 9102 TAKE ONE (1) TABLET(S) BY MOUTH ONCE A DAY. [facility] FINASTERIDE 5 mg tablet 2023-0 4-07 00:00: 00 Yes [id number] 9102 TAKE ONE (1) TABLET(S) BY MOUTH ONCE A DAY. [facility] FINASTERIDE 5 mg tablet 2023-0 4-07 00:00: 00 Yes [id number] 9102 TAKE ONE (1) TABLET(S) BY MOUTH ONCE A DAY. [facility] FINASTERIDE 5 mg tablet 3-0 4 00:00: 00 Yes [id number] 9102 TAKE ONE (1) TABLET(S) BY MOUTH ONCE A DAY. [facility] FINASTERIDE 5 mg tablet 2023-0 -07 00:00: 00 Yes [id number] 9102 TAKE ONE (1) TABLET(S) BY MOUTH ONCE A DAY. [facility] FINASTERIDE 5 mg tablet 2023-0 11-13 00:00: 00 Yes [id number] 9102 TAKE ONE (1) TABLET(S) BY MOUTH ONCE A DAY. [facility] FINASTERIDE 5 mg tablet 3-0 07 00:00: 00 Yes [id number] 9102 TAKE ONE (1) TABLET(S) BY MOUTH ONCE A DAY. [facility] FINASTERIDE 5 mg tablet 2023-0 407 00:00: 00 Yes [id number] 9102 TAKE ONE (1) TABLET(S) BY MOUTH ONCE A DAY. [facility] FINASTERIDE 5 mg tablet 2023-0 4-07 00:00: 00 Yes [id number] 9102 TAKE ONE (1) TABLET(S) BY MOUTH ONCE A DAY. [facility] FINASTERIDE 5 mg tablet 2023-0 4-07 00:00: 00 Yes [id number] 9102 TAKE ONE (1) TABLET(S) BY MOUTH ONCE A DAY. [facility] FINASTERIDE 5 mg tablet 2023-0 4-07 00:00: 00 Yes [id number] 9102 TAKE ONE (1) TABLET(S) BY MOUTH ONCE A DAY. [facility] FINASTERIDE 5 mg tablet 11-13 00:00: 00 Yes [id number] 9102 TAKE ONE (1) TABLET(S) BY MOUTH ONCE A DAY. [facility] FINASTERIDE 5 mg tablet 11-13 00:00: 00 Yes [id number] 9102 TAKE ONE (1) TABLET(S) BY MOUTH ONCE A DAY. [facility] FINASTERIDE 5 mg tablet 11-13 00:00: 00 Yes [id number] 9102 TAKE ONE (1) TABLET(S) BY MOUTH ONCE A DAY. [facility] FINASTERIDE 5 mg tablet 11-13 00:00: 00 Yes [id number] 9102 TAKE ONE (1) TABLET(S) BY MOUTH ONCE A DAY. [facility] FINASTERIDE 5 mg tablet 11-13 00:00: 00 Yes [id number] 9102 TAKE ONE (1) TABLET(S) BY MOUTH ONCE A DAY. [facility] FINASTERIDE 5 mg tablet 11-13 00:00: 00 05-21 00:00 :00 No [id number] 9102 TAKE ONE (1) TABLET(S) BY MOUTH ONCE A DAY. [facility] bevacizumab -bvzr (ZIRABEV) 500 mg in NaCl 0.9% (NS) 100 mL infusion 11-12 17:15: 00 11-12 18:16 :00 No [id number] 7.5mg/k g 500 mg (rounded from 536.25 mg = 7.5 mg/kg ?71.5 kg Treatment plan Recorded weight), IV Infusion, ONCE, Administer over 30 Minutes, On Mireya 11/12/22 at 1215, For 1 dose
Sh ould be diluted in 0.9% Sodium Chloride, not D5W. May store diluted solution in refrigerat or for up to 8 hours.&nbs p;Infuse 1st infusion over 90 minutes; 2nd infusion for 60 minutes; subsequent infusions over 30 minutes if well tolerated.
[facility] NaCl 0.9% (NS) IV infusion 1,000 mL 11-12 17:15: 00 11-12 18:24 :00 No [id number] 1000mL at 1,000 mL/hr, IV Infusion, ONCE, 1 dose, On Mireya 11/12/22 at 1215, Routine [facility] cyanocobala min (DODEX) injection 1,000 mcg 11-12 17:15: 00 11-12 17:23 :00 No [id number] 1000ug 1,000 mcg, Intramuscu lar, ONCE, 1 dose, On Mireya 11/12/22 at 1215, Routine [facility] heparin lock flush (HEPARIN LOCKFLUSH(P ORCINE)(PF) ) 100 unit/mL injection 500 Units 11-12 17:07: 30 11-13 17:06 :30 No [id number] 500U 500 Units, IV Push, PRN, Starting on Wed11/12/22 at 1207, Until Wed11/13/22 at 1206, Routine [facility] capecitabin e 500 mg tablet 11-12 00:00: 00 Yes [id number] 1500mg Take 3 tablets by mouth 2 (two) times daily. Take 3 tablets in the morning and 3 tablets in the evening for 14 days. Then 7 days off . Take within 30 minutes of finishing a meal. [facility] capecitabin e 500 mg tablet 2022-0 11-12 00:00: 00 Yes [id number] 1500mg Take 3 tablets by mouth 2 (two) times daily. Take 3 tablets in the morning and 3 tablets in the evening for 14 days. Then 7 days off . Take within 30 minutes of finishing a meal. [facility] capecitabin e 500 mg tablet 0 11-12 00:00: 00 Yes [id number] 1500mg Take 3 tablets by mouth 2 (two) times daily. Take 3 tablets in the morning and 3 tablets in the evening for 14 days. Then 7 days off . Take within 30 minutes of finishing a meal. [facility] capecitabin e 500 mg tablet 2023-0 4-06 00:00: 00 Yes [id number] 1500mg Take 3 tablets by mouth 2 (two) times daily. Take 3 tablets in the morning and 3 tablets in the evening for 14 days. Then 7 days off . Take within 30 minutes of finishing a meal. [facility] capecitabin e 500 mg tablet 2023-0 4-06 00:00: 00 Yes [id number] 1500mg Take 3 tablets by mouth 2 (two) times daily. Take 3 tablets in the morning and 3 tablets in the evening for 14 days. Then 7 days off . Take within 30 minutes of finishing a meal. [facility] capecitabin e 500 mg tablet 2023-0 4-06 00:00: 00 Yes [id number] 1500mg Take 3 tablets by mouth 2 (two) times daily. Take 3 tablets in the morning and 3 tablets in the evening for 14 days. Then 7 days off . Take within 30 minutes of finishing a meal. [facility] capecitabin e 500 mg tablet 3-0 4-06 00:00: 00 Yes [id number] 1500mg Take 3 tablets by mouth 2 (two) times daily. Take 3 tablets in the morning and 3 tablets in the evening for 14 days. Then 7 days off . Take within 30 minutes of finishing a meal. [facility] capecitabin e 500 mg tablet 3-0 4-06 00:00: 00 Yes [id number] 1500mg Take 3 tablets by mouth 2 (two) times daily. Take 3 tablets in the morning and 3 tablets in the evening for 14 days. Then 7 days off . Take within 30 minutes of finishing a meal. [facility] capecitabin e 500 mg tablet 3-0 4-06 00:00: 00 Yes [id number] 1500mg Take 3 tablets by mouth 2 (two) times daily. Take 3 tablets in the morning and 3 tablets in the evening for 14 days. Then 7 days off . Take within 30 minutes of finishing a meal. [facility] capecitabin e 500 mg tablet 2023-0 4-06 00:00: 00 Yes [id number] 1500mg Take 3 tablets by mouth 2 (two) times daily. Take 3 tablets in the morning and 3 tablets in the evening for 14 days. Then 7 days off . Take within 30 minutes of finishing a meal. [facility] capecitabin e 500 mg tablet 3-0 4-06 00:00: 00 Yes [id number] 1500mg Take 3 tablets by mouth 2 (two) times daily. Take 3 tablets in the morning and 3 tablets in the evening for 14 days. Then 7 days off . Take within 30 minutes of finishing a meal. [facility] capecitabin e 500 mg tablet 2023-0 4-06 00:00: 00 Yes [id number] 1500mg Take 3 tablets by mouth 2 (two) times daily. Take 3 tablets in the morning and 3 tablets in the evening for 14 days. Then 7 days off . Take within 30 minutes of finishing a meal. [facility] capecitabin e 500 mg tablet 3-0 4-06 00:00: 00 Yes [id number] 1500mg Take 3 tablets by mouth 2 (two) times daily. Take 3 tablets in the morning and 3 tablets in the evening for 14 days. Then 7 days off . Take within 30 minutes of finishing a meal. [facility] capecitabin e 500 mg tablet 3-0 4-06 00:00: 00 Yes [id number] 1500mg Take 3 tablets by mouth 2 (two) times daily. Take 3 tablets in the morning and 3 tablets in the evening for 14 days. Then 7 days off . Take within 30 minutes of finishing a meal. [facility] capecitabin e 500 mg tablet 3-0 4-06 00:00: 00 Yes [id number] 1500mg Take 3 tablets by mouth 2 (two) times daily. Take 3 tablets in the morning and 3 tablets in the evening for 14 days. Then 7 days off . Take within 30 minutes of finishing a meal. [facility] capecitabin e 500 mg tablet 3-0 4-06 00:00: 00 Yes [id number] 1500mg Take 3 tablets by mouth 2 (two) times daily. Take 3 tablets in the morning and 3 tablets in the evening for 14 days. Then 7 days off . Take within 30 minutes of finishing a meal. [facility] capecitabin e 500 mg tablet 2023-0 4-06 00:00: 00 Yes [id number] 1500mg Take 3 tablets by mouth 2 (two) times daily. Take 3 tablets in the morning and 3 tablets in the evening for 14 days. Then 7 days off . Take within 30 minutes of finishing a meal. [facility] capecitabin e 500 mg tablet 2023-0 4-06 00:00: 00 Yes [id number] 1500mg Take 3 tablets by mouth 2 (two) times daily. Take 3 tablets in the morning and 3 tablets in the evening for 14 days. Then 7 days off . Take within 30 minutes of finishing a meal. [facility] capecitabin e 500 mg tablet 3-0 4-06 00:00: 00 Yes [id number] 1500mg Take 3 tablets by mouth 2 (two) times daily. Take 3 tablets in the morning and 3 tablets in the evening for 14 days. Then 7 days off . Take within 30 minutes of finishing a meal. [facility] capecitabin e 500 mg tablet 3-0 4-06 00:00: 00 Yes [id number] 1500mg Take 3 tablets by mouth 2 (two) times daily. Take 3 tablets in the morning and 3 tablets in the evening for 14 days. Then 7 days off . Take within 30 minutes of finishing a meal. [facility] capecitabin e 500 mg tablet 3-0 4-06 00:00: 00 Yes [id number] 1500mg Take 3 tablets by mouth 2 (two) times daily. Take 3 tablets in the morning and 3 tablets in the evening for 14 days. Then 7 days off . Take within 30 minutes of finishing a meal. [facility] capecitabin e 500 mg tablet 3-0 4-06 00:00: 00 Yes [id number] 1500mg Take 3 tablets by mouth 2 (two) times daily. Take 3 tablets in the morning and 3 tablets in the evening for 14 days. Then 7 days off . Take within 30 minutes of finishing a meal. [facility] capecitabin e 500 mg tablet 3-0 4-06 00:00: 00 Yes [id number] 1500mg Take 3 tablets by mouth 2 (two) times daily. Take 3 tablets in the morning and 3 tablets in the evening for 14 days. Then 7 days off . Take within 30 minutes of finishing a meal. [facility] capecitabin e 500 mg tablet 3-0 4-06 00:00: 00 Yes [id number] 1500mg Take 3 tablets by mouth 2 (two) times daily. Take 3 tablets in the morning and 3 tablets in the evening for 14 days. Then 7 days off . Take within 30 minutes of finishing a meal. [facility] capecitabin e 500 mg tablet 2023-0 4-06 00:00: 00 Yes [id number] 1500mg Take 3 tablets by mouth 2 (two) times daily. Take 3 tablets in the morning and 3 tablets in the evening for 14 days. Then 7 days off . Take within 30 minutes of finishing a meal. [facility] capecitabin e 500 mg tablet 2023-0 4-06 00:00: 00 Yes [id number] 1500mg Take 3 tablets by mouth 2 (two) times daily. Take 3 tablets in the morning and 3 tablets in the evening for 14 days. Then 7 days off . Take within 30 minutes of finishing a meal. [facility] capecitabin e 500 mg tablet 3-0 4-06 00:00: 00 Yes [id number] 1500mg Take 3 tablets by mouth 2 (two) times daily. Take 3 tablets in the morning and 3 tablets in the evening for 14 days. Then 7 days off . Take within 30 minutes of finishing a meal. [facility] capecitabin e 500 mg tablet 3-0 4-06 00:00: 00 Yes [id number] 1500mg Take 3 tablets by mouth 2 (two) times daily. Take 3 tablets in the morning and 3 tablets in the evening for 14 days. Then 7 days off . Take within 30 minutes of finishing a meal. [facility] capecitabin e 500 mg tablet 3-0 4-06 00:00: 00 Yes [id number] 1500mg Take 3 tablets by mouth 2 (two) times daily. Take 3 tablets in the morning and 3 tablets in the evening for 14 days. Then 7 days off . Take within 30 minutes of finishing a meal. [facility] capecitabin e 500 mg tablet 2023-0 4-06 00:00: 00 Yes [id number] 1500mg Take 3 tablets by mouth 2 (two) times daily. Take 3 tablets in the morning and 3 tablets in the evening for 14 days. Then 7 days off . Take within 30 minutes of finishing a meal. [facility] capecitabin e 500 mg tablet 3-0 4-06 00:00: 00 Yes [id number] 1500mg Take 3 tablets by mouth 2 (two) times daily. Take 3 tablets in the morning and 3 tablets in the evening for 14 days. Then 7 days off . Take within 30 minutes of finishing a meal. [facility] capecitabin e 500 mg tablet 3-0 4-06 00:00: 00 Yes [id number] 1500mg Take 3 tablets by mouth 2 (two) times daily. Take 3 tablets in the morning and 3 tablets in the evening for 14 days. Then 7 days off . Take within 30 minutes of finishing a meal. [facility] capecitabin e 500 mg tablet 3-0 4-06 00:00: 00 Yes [id number] 1500mg Take 3 tablets by mouth 2 (two) times daily. Take 3 tablets in the morning and 3 tablets in the evening for 14 days. Then 7 days off . Take within 30 minutes of finishing a meal. [facility] capecitabin e 500 mg tablet 3-0 4-06 00:00: 00 Yes [id number] 1500mg Take 3 tablets by mouth 2 (two) times daily. Take 3 tablets in the morning and 3 tablets in the evening for 14 days. Then 7 days off . Take within 30 minutes of finishing a meal. [facility] capecitabin e 500 mg tablet 3-0 4-06 00:00: 00 Yes [id number] 1500mg Take 3 tablets by mouth 2 (two) times daily. Take 3 tablets in the morning and 3 tablets in the evening for 14 days. Then 7 days off . Take within 30 minutes of finishing a meal. [facility] capecitabin e 500 mg tablet 3-0 4-06 00:00: 00 Yes [id number] 1500mg Take 3 tablets by mouth 2 (two) times daily. Take 3 tablets in the morning and 3 tablets in the evening for 14 days. Then 7 days off . Take within 30 minutes of finishing a meal. [facility] capecitabin e 500 mg tablet 2023-0 4-06 00:00: 00 Yes [id number] 1500mg Take 3 tablets by mouth 2 (two) times daily. Take 3 tablets in the morning and 3 tablets in the evening for 14 days. Then 7 days off . Take within 30 minutes of finishing a meal. [facility] capecitabin e 500 mg tablet 2023-0 4-06 00:00: 00 Yes [id number] 1500mg Take 3 tablets by mouth 2 (two) times daily. Take 3 tablets in the morning and 3 tablets in the evening for 14 days. Then 7 days off . Take within 30 minutes of finishing a meal. [facility] capecitabin e 500 mg tablet 3-0 4-06 00:00: 00 Yes [id number] 1500mg Take 3 tablets by mouth 2 (two) times daily. Take 3 tablets in the morning and 3 tablets in the evening for 14 days. Then 7 days off . Take within 30 minutes of finishing a meal. [facility] capecitabin e 500 mg tablet 3-0 4-06 00:00: 00 Yes [id number] 1500mg Take 3 tablets by mouth 2 (two) times daily. Take 3 tablets in the morning and 3 tablets in the evening for 14 days. Then 7 days off . Take within 30 minutes of finishing a meal. [facility] capecitabin e 500 mg tablet 3-0 4-06 00:00: 00 Yes [id number] 1500mg Take 3 tablets by mouth 2 (two) times daily. Take 3 tablets in the morning and 3 tablets in the evening for 14 days. Then 7 days off . Take within 30 minutes of finishing a meal. [facility] capecitabin e 500 mg tablet 3-0 4-06 00:00: 00 Yes [id number] 1500mg Take 3 tablets by mouth 2 (two) times daily. Take 3 tablets in the morning and 3 tablets in the evening for 14 days. Then 7 days off . Take within 30 minutes of finishing a meal. [facility] capecitabin e 500 mg tablet 2023-0 4-06 00:00: 00 Yes [id number] 1500mg Take 3 tablets by mouth 2 (two) times daily. Take 3 tablets in the morning and 3 tablets in the evening for 14 days. Then 7 days off . Take within 30 minutes of finishing a meal. [facility] capecitabin e 500 mg tablet 2023-0 4-06 00:00: 00 Yes [id number] 1500mg Take 3 tablets by mouth 2 (two) times daily. Take 3 tablets in the morning and 3 tablets in the evening for 14 days. Then 7 days off . Take within 30 minutes of finishing a meal. [facility] capecitabin e 500 mg tablet 2023-0 4-06 00:00: 00 Yes [id number] 1500mg Take 3 tablets by mouth 2 (two) times daily. Take 3 tablets in the morning and 3 tablets in the evening for 14 days. Then 7 days off . Take within 30 minutes of finishing a meal. [facility] capecitabin e 500 mg tablet 2023-0 4-06 00:00: 00 Yes [id number] 1500mg Take 3 tablets by mouth 2 (two) times daily. Take 3 tablets in the morning and 3 tablets in the evening for 14 days. Then 7 days off . Take within 30 minutes of finishing a meal. [facility] capecitabin e 500 mg tablet 3-0 4-06 00:00: 00 Yes [id number] 1500mg Take 3 tablets by mouth 2 (two) times daily. Take 3 tablets in the morning and 3 tablets in the evening for 14 days. Then 7 days off . Take within 30 minutes of finishing a meal. [facility] capecitabin e 500 mg tablet 3-0 4-06 00:00: 00 Yes [id number] 1500mg Take 3 tablets by mouth 2 (two) times daily. Take 3 tablets in the morning and 3 tablets in the evening for 14 days. Then 7 days off . Take within 30 minutes of finishing a meal. [facility] capecitabin e 500 mg tablet 2023-0 4-06 00:00: 00 Yes [id number] 1500mg Take 3 tablets by mouth 2 (two) times daily. Take 3 tablets in the morning and 3 tablets in the evening for 14 days. Then 7 days off . Take within 30 minutes of finishing a meal. [facility] capecitabin e 500 mg tablet 2023-0 4-06 00:00: 00 Yes [id number] 1500mg Take 3 tablets by mouth 2 (two) times daily. Take 3 tablets in the morning and 3 tablets in the evening for 14 days. Then 7 days off . Take within 30 minutes of finishing a meal. [facility] capecitabin e 500 mg tablet 2023-0 4-06 00:00: 00 Yes [id number] 1500mg Take 3 tablets by mouth 2 (two) times daily. Take 3 tablets in the morning and 3 tablets in the evening for 14 days. Then 7 days off . Take within 30 minutes of finishing a meal. [facility] capecitabin e 500 mg tablet 2023-0 4-06 00:00: 00 Yes [id number] 1500mg Take 3 tablets by mouth 2 (two) times daily. Take 3 tablets in the morning and 3 tablets in the evening for 14 days. Then 7 days off . Take within 30 minutes of finishing a meal. [facility] capecitabin e 500 mg tablet 2023-0 4-06 00:00: 00 Yes [id number] 1500mg Take 3 tablets by mouth 2 (two) times daily. Take 3 tablets in the morning and 3 tablets in the evening for 14 days. Then 7 days off . Take within 30 minutes of finishing a meal. [facility] capecitabin e 500 mg tablet 2023-0 4-06 00:00: 00 Yes [id number] 1500mg Take 3 tablets by mouth 2 (two) times daily. Take 3 tablets in the morning and 3 tablets in the evening for 14 days. Then 7 days off . Take within 30 minutes of finishing a meal. [facility] capecitabin e 500 mg tablet 2023-0 4-06 00:00: 00 Yes [id number] 1500mg Take 3 tablets by mouth 2 (two) times daily. Take 3 tablets in the morning and 3 tablets in the evening for 14 days. Then 7 days off . Take within 30 minutes of finishing a meal. [facility] capecitabin e 500 mg tablet 2023-0 4-06 00:00: 00 Yes [id number] 1500mg Take 3 tablets by mouth 2 (two) times daily. Take 3 tablets in the morning and 3 tablets in the evening for 14 days. Then 7 days off . Take within 30 minutes of finishing a meal. [facility] capecitabin e 500 mg tablet 3-0 4-06 00:00: 00 Yes [id number] 1500mg Take 3 tablets by mouth 2 (two) times daily. Take 3 tablets in the morning and 3 tablets in the evening for 14 days. Then 7 days off . Take within 30 minutes of finishing a meal. [facility] capecitabin e 500 mg tablet 3-0 4-06 00:00: 00 Yes [id number] 1500mg Take 3 tablets by mouth 2 (two) times daily. Take 3 tablets in the morning and 3 tablets in the evening for 14 days. Then 7 days off . Take within 30 minutes of finishing a meal. [facility] capecitabin e 500 mg tablet 3-0 4-06 00:00: 00 Yes [id number] 1500mg Take 3 tablets by mouth 2 (two) times daily. Take 3 tablets in the morning and 3 tablets in the evening for 14 days. Then 7 days off . Take within 30 minutes of finishing a meal. [facility] capecitabin e 500 mg tablet 3-0 4-06 00:00: 00 Yes [id number] 1500mg Take 3 tablets by mouth 2 (two) times daily. Take 3 tablets in the morning and 3 tablets in the evening for 14 days. Then 7 days off . Take within 30 minutes of finishing a meal. [facility] capecitabin e 500 mg tablet 3-0 4-06 00:00: 00 Yes [id number] 1500mg Take 3 tablets by mouth 2 (two) times daily. Take 3 tablets in the morning and 3 tablets in the evening for 14 days. Then 7 days off . Take within 30 minutes of finishing a meal. [facility] capecitabin e 500 mg tablet 3-0 4-06 00:00: 00 Yes [id number] 1500mg Take 3 tablets by mouth 2 (two) times daily. Take 3 tablets in the morning and 3 tablets in the evening for 14 days. Then 7 days off . Take within 30 minutes of finishing a meal. [facility] capecitabin e 500 mg tablet 2023-0 4-06 00:00: 00 Yes [id number] 1500mg Take 3 tablets by mouth 2 (two) times daily. Take 3 tablets in the morning and 3 tablets in the evening for 14 days. Then 7 days off . Take within 30 minutes of finishing a meal. [facility] capecitabin e 500 mg tablet 3-0 4-06 00:00: 00 Yes [id number] 1500mg Take 3 tablets by mouth 2 (two) times daily. Take 3 tablets in the morning and 3 tablets in the evening for 14 days. Then 7 days off . Take within 30 minutes of finishing a meal. [facility] capecitabin e 500 mg tablet 3-0 4-06 00:00: 00 Yes [id number] 1500mg Take 3 tablets by mouth 2 (two) times daily. Take 3 tablets in the morning and 3 tablets in the evening for 14 days. Then 7 days off . Take within 30 minutes of finishing a meal. [facility] capecitabin e 500 mg tablet 3-0 4-06 00:00: 00 Yes [id number] 1500mg Take 3 tablets by mouth 2 (two) times daily. Take 3 tablets in the morning and 3 tablets in the evening for 14 days. Then 7 days off . Take within 30 minutes of finishing a meal. [facility] capecitabin e 500 mg tablet 3-0 4-06 00:00: 00 Yes [id number] 1500mg Take 3 tablets by mouth 2 (two) times daily. Take 3 tablets in the morning and 3 tablets in the evening for 14 days. Then 7 days off . Take within 30 minutes of finishing a meal. [facility] capecitabin e 500 mg tablet 3-0 4-06 00:00: 00 Yes [id number] 1500mg Take 3 tablets by mouth 2 (two) times daily. Take 3 tablets in the morning and 3 tablets in the evening for 14 days. Then 7 days off . Take within 30 minutes of finishing a meal. [facility] capecitabin e 500 mg tablet 3-0 4-06 00:00: 00 Yes [id number] 1500mg Take 3 tablets by mouth 2 (two) times daily. Take 3 tablets in the morning and 3 tablets in the evening for 14 days. Then 7 days off . Take within 30 minutes of finishing a meal. [facility] capecitabin e 500 mg tablet 3-0 4-06 00:00: 00 Yes [id number] 1500mg Take 3 tablets by mouth 2 (two) times daily. Take 3 tablets in the morning and 3 tablets in the evening for 14 days. Then 7 days off . Take within 30 minutes of finishing a meal. [facility] capecitabin e 500 mg tablet 2023-0 4-06 00:00: 00 Yes [id number] 1500mg Take 3 tablets by mouth 2 (two) times daily. Take 3 tablets in the morning and 3 tablets in the evening for 14 days. Then 7 days off . Take within 30 minutes of finishing a meal. [facility] capecitabin e 500 mg tablet 3-0 4-06 00:00: 00 Yes [id number] 1500mg Take 3 tablets by mouth 2 (two) times daily. Take 3 tablets in the morning and 3 tablets in the evening for 14 days. Then 7 days off . Take within 30 minutes of finishing a meal. [facility] capecitabin e 500 mg tablet 3-0 4-06 00:00: 00 Yes [id number] 1500mg Take 3 tablets by mouth 2 (two) times daily. Take 3 tablets in the morning and 3 tablets in the evening for 14 days. Then 7 days off . Take within 30 minutes of finishing a meal. [facility] capecitabin e 500 mg tablet 3-0 4-06 00:00: 00 Yes [id number] 1500mg Take 3 tablets by mouth 2 (two) times daily. Take 3 tablets in the morning and 3 tablets in the evening for 14 days. Then 7 days off . Take within 30 minutes of finishing a meal. [facility] capecitabin e 500 mg tablet 3-0 4-06 00:00: 00 Yes [id number] 1500mg Take 3 tablets by mouth 2 (two) times daily. Take 3 tablets in the morning and 3 tablets in the evening for 14 days. Then 7 days off . Take within 30 minutes of finishing a meal. [facility] capecitabin e 500 mg tablet 2023-0 4-06 00:00: 00 Yes [id number] 1500mg Take 3 tablets by mouth 2 (two) times daily. Take 3 tablets in the morning and 3 tablets in the evening for 14 days. Then 7 days off . Take within 30 minutes of finishing a meal. [facility] capecitabin e 500 mg tablet 2023-0 4-06 00:00: 00 Yes [id number] 1500mg Take 3 tablets by mouth 2 (two) times daily. Take 3 tablets in the morning and 3 tablets in the evening for 14 days. Then 7 days off . Take within 30 minutes of finishing a meal. [facility] capecitabin e 500 mg tablet 3-0 4-06 00:00: 00 Yes [id number] 1500mg Take 3 tablets by mouth 2 (two) times daily. Take 3 tablets in the morning and 3 tablets in the evening for 14 days. Then 7 days off . Take within 30 minutes of finishing a meal. [facility] capecitabin e 500 mg tablet 3-0 4-06 00:00: 00 Yes [id number] 1500mg Take 3 tablets by mouth 2 (two) times daily. Take 3 tablets in the morning and 3 tablets in the evening for 14 days. Then 7 days off . Take within 30 minutes of finishing a meal. [facility] capecitabin e 500 mg tablet 3-0 4-06 00:00: 00 Yes [id number] 1500mg Take 3 tablets by mouth 2 (two) times daily. Take 3 tablets in the morning and 3 tablets in the evening for 14 days. Then 7 days off . Take within 30 minutes of finishing a meal. [facility] capecitabin e 500 mg tablet 3-0 4-06 00:00: 00 Yes [id number] 1500mg Take 3 tablets by mouth 2 (two) times daily. Take 3 tablets in the morning and 3 tablets in the evening for 14 days. Then 7 days off . Take within 30 minutes of finishing a meal. [facility] capecitabin e 500 mg tablet 3-0 4-06 00:00: 00 Yes [id number] 1500mg Take 3 tablets by mouth 2 (two) times daily. Take 3 tablets in the morning and 3 tablets in the evening for 14 days. Then 7 days off . Take within 30 minutes of finishing a meal. [facility] capecitabin e 500 mg tablet 2023-0 4-06 00:00: 00 Yes [id number] 1500mg Take 3 tablets by mouth 2 (two) times daily. Take 3 tablets in the morning and 3 tablets in the evening for 14 days. Then 7 days off . Take within 30 minutes of finishing a meal. [facility] capecitabin e 500 mg tablet 2023-0 4-06 00:00: 00 Yes [id number] 1500mg Take 3 tablets by mouth 2 (two) times daily. Take 3 tablets in the morning and 3 tablets in the evening for 14 days. Then 7 days off . Take within 30 minutes of finishing a meal. [facility] capecitabin e 500 mg tablet 2023-0 4-06 00:00: 00 Yes [id number] 1500mg Take 3 tablets by mouth 2 (two) times daily. Take 3 tablets in the morning and 3 tablets in the evening for 14 days. Then 7 days off . Take within 30 minutes of finishing a meal. [facility] capecitabin e 500 mg tablet 3-0 4-06 00:00: 00 Yes [id number] 1500mg Take 3 tablets by mouth 2 (two) times daily. Take 3 tablets in the morning and 3 tablets in the evening for 14 days. Then 7 days off . Take within 30 minutes of finishing a meal. [facility] capecitabin e 500 mg tablet 3-0 4-06 00:00: 00 Yes [id number] 1500mg Take 3 tablets by mouth 2 (two) times daily. Take 3 tablets in the morning and 3 tablets in the evening for 14 days. Then 7 days off . Take within 30 minutes of finishing a meal. [facility] capecitabin e 500 mg tablet 3-0 4-06 00:00: 00 Yes [id number] 1500mg Take 3 tablets by mouth 2 (two) times daily. Take 3 tablets in the morning and 3 tablets in the evening for 14 days. Then 7 days off . Take within 30 minutes of finishing a meal. [facility] capecitabin e 500 mg tablet 2023-0 4-06 00:00: 00 Yes [id number] 1500mg Take 3 tablets by mouth 2 (two) times daily. Take 3 tablets in the morning and 3 tablets in the evening for 14 days. Then 7 days off . Take within 30 minutes of finishing a meal. [facility] capecitabin e 500 mg tablet 3-0 4-06 00:00: 00 Yes [id number] 1500mg Take 3 tablets by mouth 2 (two) times daily. Take 3 tablets in the morning and 3 tablets in the evening for 14 days. Then 7 days off . Take within 30 minutes of finishing a meal. [facility] capecitabin e 500 mg tablet 3-0 4-06 00:00: 00 Yes [id number] 1500mg Take 3 tablets by mouth 2 (two) times daily. Take 3 tablets in the morning and 3 tablets in the evening for 14 days. Then 7 days off . Take within 30 minutes of finishing a meal. [facility] capecitabin e 500 mg tablet 3-0 4-06 00:00: 00 Yes [id number] 1500mg Take 3 tablets by mouth 2 (two) times daily. Take 3 tablets in the morning and 3 tablets in the evening for 14 days. Then 7 days off . Take within 30 minutes of finishing a meal. [facility] capecitabin e 500 mg tablet 3-0 4-06 00:00: 00 Yes [id number] 1500mg Take 3 tablets by mouth 2 (two) times daily. Take 3 tablets in the morning and 3 tablets in the evening for 14 days. Then 7 days off . Take within 30 minutes of finishing a meal. [facility] capecitabin e 500 mg tablet 3-0 4-06 00:00: 00 Yes [id number] 1500mg Take 3 tablets by mouth 2 (two) times daily. Take 3 tablets in the morning and 3 tablets in the evening for 14 days. Then 7 days off . Take within 30 minutes of finishing a meal. [facility] capecitabin e 500 mg tablet 3-0 4-06 00:00: 00 Yes [id number] 1500mg Take 3 tablets by mouth 2 (two) times daily. Take 3 tablets in the morning and 3 tablets in the evening for 14 days. Then 7 days off . Take within 30 minutes of finishing a meal. [facility] capecitabin e 500 mg tablet 2023-0 4-06 00:00: 00 Yes [id number] 1500mg Take 3 tablets by mouth 2 (two) times daily. Take 3 tablets in the morning and 3 tablets in the evening for 14 days. Then 7 days off . Take within 30 minutes of finishing a meal. [facility] capecitabin e 500 mg tablet 3-0 4-06 00:00: 00 Yes [id number] 1500mg Take 3 tablets by mouth 2 (two) times daily. Take 3 tablets in the morning and 3 tablets in the evening for 14 days. Then 7 days off . Take within 30 minutes of finishing a meal. [facility] capecitabin e 500 mg tablet 3-0 4-06 00:00: 00 04-02 00:00 :00 No [id number] 1500mg Take 3 tablets by mouth 2 (two) times daily. Take 3 tablets in the morning and 3 tablets in the evening for 14 days. Then 7 days off . Take within 30 minutes of finishing a meal. [facility] gabapentin 300 mg capsule 3-0 3 00:00: 00 Yes [id number] 300mg Take 1 capsule by mouth 2 (two) times daily. [facility] gabapentin 300 mg capsule 3-0 3 00:00: 00 Yes [id number] 300mg Take 1 capsule by mouth 2 (two) times daily. [facility] gabapentin 300 mg capsule 3-0 3-23 00:00: 00 Yes [id number] 300mg Take 1 capsule by mouth 2 (two) times daily. [facility] gabapentin 300 mg capsule 3-0 3-23 00:00: 00 Yes [id number] 300mg Take 1 capsule by mouth 2 (two) times daily. [facility] gabapentin 300 mg capsule 2023-0 3-23 00:00: 00 Yes [id number] 300mg Take 1 capsule by mouth 2 (two) times daily. [facility] gabapentin 300 mg capsule 3-0 3-23 00:00: 00 Yes [id number] 300mg Take 1 capsule by mouth 2 (two) times daily. [facility] gabapentin 300 mg capsule 3-0 323 00:00: 00 2023- 04-14 00:00 :00 No [id number] 300mg Take 1 capsule by mouth 2 (two) times daily. [facility] gabapentin 300 mg capsule 10-29 00:00: 00 11-20 00:00 :00 No [id number] 300mg Take 1 capsule by mouth 2 (two) times daily. [facility] gabapentin 300 mg capsule 10-29 00:00: 00 11-20 00:00 :00 No [id number] 300mg Take 1 capsule by mouth 2 (two) times daily. [facility] bevacizumab -bvzr (ZIRABEV) 500 mg in NaCl 0.9% (NS) 100 mL infusion 10-22 15:45: 00 10-22 17:39 :00 No [id number] 04 7.5mg/k g 500 mg (rounded from 536.25 mg = 7.5 mg/kg ?71.5 kg Treatment plan Recorded weight), IV Infusion, ONCE, Administer over 30 Minutes, On Mireya 10/22/22 at 1045, For 1 dose
Sh ould be diluted in 0.9% Sodium Chloride, not D5W. May store diluted solution in refrigerat or for up to 8 hours.&nbs p;Infuse 1st infusion over 90 minutes; 2nd infusion for 60 minutes; subsequent infusions over 30 minutes if well tolerated.
[facility] NaCl 0.9% (NS) IV infusion 1,000 mL 10-22 15:45: 00 10-22 16:50 :00 No [id number] 04 1000mL at 1,000 mL/hr, IV Infusion, ONCE, 1 dose, On Mireya 10/22/22 at 1045, Routine [facility] magnesium sulfate in water 2 gram/50 mL (4 %) infusion 2 g 10-22 15:45: 00 10-22 16:51 :00 No [id number] 04 2g 2 g, IV Piggyback, Administer over 60 Minutes, ONCE, 1 dose, On Mireya 10/22/22 at 1045, Routine [facility] heparin lock flush (HEPARIN LOCKFLUSH(P ORCINE)(PF) ) 100 unit/mL injection 500 Units 10-22 15:44: 40 10-23 15:43 :40 No [id number] 04 500U 500 Units, IV Push, PRN, Starting on Mireya 10/22/22 at 1044, Until Wed10/23/22 at 1043, Routine [facility] gabapentin 300 mg capsule 3-0 -16 00:00: 00 Yes [id number] 300mg Take 1 capsule by mouth 2 (two) times daily. [facility] gabapentin 300 mg capsule 3-0 -16 00:00: 00 Yes [id number] 300mg Take 1 capsule by mouth 2 (two) times daily. [facility] gabapentin 300 mg capsule 2022-0 -16 00:00: 00 Yes [id number] 300mg Take 1 capsule by mouth 2 (two) times daily. [facility] capecitabin e 500 mg tablet 2022-0 -16 00:00: 00 Yes [id number] 04 1500mg Take 3 tablets by mouth 2 (two) times daily. Take 3 tablets in the morning and 3 tablets in the evening for 14 days. Then 7 days off . Take within 30 minutes of finishing a meal. [facility] gabapentin 300 mg capsule 2022-0 -16 00:00: 00 Yes [id number] 300mg Take 1 capsule by mouth 2 (two) times daily. [facility] gabapentin 300 mg capsule 3-0 3-16 00:00: 00 Yes [id number] 300mg Take 1 capsule by mouth 2 (two) times daily. [facility] capecitabin e 500 mg tablet 3-0 -16 00:00: 00 Yes [id number] 04 1500mg Take 3 tablets by mouth 2 (two) times daily. Take 3 tablets in the morning and 3 tablets in the evening for 14 days. Then 7 days off . Take within 30 minutes of finishing a meal. [facility] gabapentin 300 mg capsule 3-0 3-16 00:00: 00 Yes [id number] 300mg Take 1 capsule by mouth 2 (two) times daily. [facility] capecitabin e 500 mg tablet 2023-0 3-16 00:00: 00 Yes [id number] 04 1500mg Take 3 tablets by mouth 2 (two) times daily. Take 3 tablets in the morning and 3 tablets in the evening for 14 days. Then 7 days off . Take within 30 minutes of finishing a meal. [facility] gabapentin 300 mg capsule 3-0 3-16 00:00: 00 Yes [id number] 300mg Take 1 capsule by mouth 2 (two) times daily. [facility] capecitabin e 500 mg tablet 3-0 3-16 00:00: 00 Yes [id number] 04 1500mg Take 3 tablets by mouth 2 (two) times daily. Take 3 tablets in the morning and 3 tablets in the evening for 14 days. Then 7 days off . Take within 30 minutes of finishing a meal. [facility] gabapentin 300 mg capsule 3-0 3-16 00:00: 00 Yes [id number] 300mg Take 1 capsule by mouth 2 (two) times daily. [facility] capecitabin e 500 mg tablet 3-0 3-16 00:00: 00 Yes [id number] 04 1500mg Take 3 tablets by mouth 2 (two) times daily. Take 3 tablets in the morning and 3 tablets in the evening for 14 days. Then 7 days off . Take within 30 minutes of finishing a meal. [facility] capecitabin e 500 mg tablet 3-0 3-16 00:00: 00 Yes [id number] 1500mg Take 3 tablets by mouth 2 (two) times daily. Take 3 tablets in the morning and 3 tablets in the evening for 14 days. Then 7 days off . Take within 30 minutes of finishing a meal. [facility] capecitabin e 500 mg tablet 3-0 3-16 00:00: 00 Yes [id number] 1500mg Take 3 tablets by mouth 2 (two) times daily. Take 3 tablets in the morning and 3 tablets in the evening for 14 days. Then 7 days off . Take within 30 minutes of finishing a meal. [facility] capecitabin e 500 mg tablet 2023-0 3-16 00:00: 00 Yes [id number] 1500mg Take 3 tablets by mouth 2 (two) times daily. Take 3 tablets in the morning and 3 tablets in the evening for 14 days. Then 7 days off . Take within 30 minutes of finishing a meal. [facility] capecitabin e 500 mg tablet 2023-0 3-16 00:00: 00 Yes [id number] 1500mg Take 3 tablets by mouth 2 (two) times daily. Take 3 tablets in the morning and 3 tablets in the evening for 14 days. Then 7 days off . Take within 30 minutes of finishing a meal. [facility] capecitabin e 500 mg tablet 2023-0 3-16 00:00: 00 Yes [id number] 1500mg Take 3 tablets by mouth 2 (two) times daily. Take 3 tablets in the morning and 3 tablets in the evening for 14 days. Then 7 days off . Take within 30 minutes of finishing a meal. [facility] capecitabin e 500 mg tablet 2023-0 3-16 00:00: 00 Yes [id number] 1500mg Take 3 tablets by mouth 2 (two) times daily. Take 3 tablets in the morning and 3 tablets in the evening for 14 days. Then 7 days off . Take within 30 minutes of finishing a meal. [facility] capecitabin e 500 mg tablet 2023-0 3-16 00:00: 00 Yes [id number] 1500mg Take 3 tablets by mouth 2 (two) times daily. Take 3 tablets in the morning and 3 tablets in the evening for 14 days. Then 7 days off . Take within 30 minutes of finishing a meal. [facility] capecitabin e 500 mg tablet 2023-0 3-16 00:00: 00 Yes [id number] 1500mg Take 3 tablets by mouth 2 (two) times daily. Take 3 tablets in the morning and 3 tablets in the evening for 14 days. Then 7 days off . Take within 30 minutes of finishing a meal. [facility] capecitabin e 500 mg tablet 2023-0 3-16 00:00: 00 Yes [id number] 1500mg Take 3 tablets by mouth 2 (two) times daily. Take 3 tablets in the morning and 3 tablets in the evening for 14 days. Then 7 days off . Take within 30 minutes of finishing a meal. [facility] capecitabin e 500 mg tablet 2023-0 3-16 00:00: 00 Yes [id number] 1500mg Take 3 tablets by mouth 2 (two) times daily. Take 3 tablets in the morning and 3 tablets in the evening for 14 days. Then 7 days off . Take within 30 minutes of finishing a meal. [facility] capecitabin e 500 mg tablet 2023-0 3-16 00:00: 00 Yes [id number] 1500mg Take 3 tablets by mouth 2 (two) times daily. Take 3 tablets in the morning and 3 tablets in the evening for 14 days. Then 7 days off . Take within 30 minutes of finishing a meal. [facility] capecitabin e 500 mg tablet 2023-0 3-16 00:00: 00 Yes [id number] 1500mg Take 3 tablets by mouth 2 (two) times daily. Take 3 tablets in the morning and 3 tablets in the evening for 14 days. Then 7 days off . Take within 30 minutes of finishing a meal. [facility] capecitabin e 500 mg tablet 2023-0 3-16 00:00: 00 Yes [id number] 1500mg Take 3 tablets by mouth 2 (two) times daily. Take 3 tablets in the morning and 3 tablets in the evening for 14 days. Then 7 days off . Take within 30 minutes of finishing a meal. [facility] capecitabin e 500 mg tablet 2023-0 3-16 00:00: 00 Yes [id number] 1500mg Take 3 tablets by mouth 2 (two) times daily. Take 3 tablets in the morning and 3 tablets in the evening for 14 days. Then 7 days off . Take within 30 minutes of finishing a meal. [facility] capecitabin e 500 mg tablet 2023-0 3-16 00:00: 00 Yes [id number] 1500mg Take 3 tablets by mouth 2 (two) times daily. Take 3 tablets in the morning and 3 tablets in the evening for 14 days. Then 7 days off . Take within 30 minutes of finishing a meal. [facility] capecitabin e 500 mg tablet 2023-0 3-16 00:00: 00 Yes [id number] 1500mg Take 3 tablets by mouth 2 (two) times daily. Take 3 tablets in the morning and 3 tablets in the evening for 14 days. Then 7 days off . Take within 30 minutes of finishing a meal. [facility] capecitabin e 500 mg tablet 2023-0 3-16 00:00: 00 Yes [id number] 1500mg Take 3 tablets by mouth 2 (two) times daily. Take 3 tablets in the morning and 3 tablets in the evening for 14 days. Then 7 days off . Take within 30 minutes of finishing a meal. [facility] capecitabin e 500 mg tablet 2023-0 3-16 00:00: 00 Yes [id number] 1500mg Take 3 tablets by mouth 2 (two) times daily. Take 3 tablets in the morning and 3 tablets in the evening for 14 days. Then 7 days off . Take within 30 minutes of finishing a meal. [facility] capecitabin e 500 mg tablet 2023-0 3-16 00:00: 00 Yes [id number] 1500mg Take 3 tablets by mouth 2 (two) times daily. Take 3 tablets in the morning and 3 tablets in the evening for 14 days. Then 7 days off . Take within 30 minutes of finishing a meal. [facility] capecitabin e 500 mg tablet 2023-0 3-16 00:00: 00 Yes [id number] 1500mg Take 3 tablets by mouth 2 (two) times daily. Take 3 tablets in the morning and 3 tablets in the evening for 14 days. Then 7 days off . Take within 30 minutes of finishing a meal. [facility] capecitabin e 500 mg tablet 2023-0 3-16 00:00: 00 Yes [id number] 1500mg Take 3 tablets by mouth 2 (two) times daily. Take 3 tablets in the morning and 3 tablets in the evening for 14 days. Then 7 days off . Take within 30 minutes of finishing a meal. [facility] capecitabin e 500 mg tablet 2023-0 3-16 00:00: 00 Yes [id number] 1500mg Take 3 tablets by mouth 2 (two) times daily. Take 3 tablets in the morning and 3 tablets in the evening for 14 days. Then 7 days off . Take within 30 minutes of finishing a meal. [facility] capecitabin e 500 mg tablet 2023-0 3-16 00:00: 00 Yes [id number] 1500mg Take 3 tablets by mouth 2 (two) times daily. Take 3 tablets in the morning and 3 tablets in the evening for 14 days. Then 7 days off . Take within 30 minutes of finishing a meal. [facility] capecitabin e 500 mg tablet 2023-0 3-16 00:00: 00 Yes [id number] 1500mg Take 3 tablets by mouth 2 (two) times daily. Take 3 tablets in the morning and 3 tablets in the evening for 14 days. Then 7 days off . Take within 30 minutes of finishing a meal. [facility] capecitabin e 500 mg tablet 3-0 3-16 00:00: 00 Yes [id number] 1500mg Take 3 tablets by mouth 2 (two) times daily. Take 3 tablets in the morning and 3 tablets in the evening for 14 days. Then 7 days off . Take within 30 minutes of finishing a meal. [facility] capecitabin e 500 mg tablet 3-0 3-16 00:00: 00 Yes [id number] 1500mg Take 3 tablets by mouth 2 (two) times daily. Take 3 tablets in the morning and 3 tablets in the evening for 14 days. Then 7 days off . Take within 30 minutes of finishing a meal. [facility] capecitabin e 500 mg tablet 3-0 3-16 00:00: 00 Yes [id number] 1500mg Take 3 tablets by mouth 2 (two) times daily. Take 3 tablets in the morning and 3 tablets in the evening for 14 days. Then 7 days off . Take within 30 minutes of finishing a meal. [facility] capecitabin e 500 mg tablet 3-0 3-16 00:00: 00 Yes [id number] 1500mg Take 3 tablets by mouth 2 (two) times daily. Take 3 tablets in the morning and 3 tablets in the evening for 14 days. Then 7 days off . Take within 30 minutes of finishing a meal. [facility] capecitabin e 500 mg tablet 2023-0 3-16 00:00: 00 Yes [id number] 1500mg Take 3 tablets by mouth 2 (two) times daily. Take 3 tablets in the morning and 3 tablets in the evening for 14 days. Then 7 days off . Take within 30 minutes of finishing a meal. [facility] capecitabin e 500 mg tablet 2023-0 3-16 00:00: 00 Yes [id number] 1500mg Take 3 tablets by mouth 2 (two) times daily. Take 3 tablets in the morning and 3 tablets in the evening for 14 days. Then 7 days off . Take within 30 minutes of finishing a meal. [facility] capecitabin e 500 mg tablet 2023-0 3-16 00:00: 00 Yes [id number] 1500mg Take 3 tablets by mouth 2 (two) times daily. Take 3 tablets in the morning and 3 tablets in the evening for 14 days. Then 7 days off . Take within 30 minutes of finishing a meal. [facility] capecitabin e 500 mg tablet 2023-0 3-16 00:00: 00 Yes [id number] 1500mg Take 3 tablets by mouth 2 (two) times daily. Take 3 tablets in the morning and 3 tablets in the evening for 14 days. Then 7 days off . Take within 30 minutes of finishing a meal. [facility] capecitabin e 500 mg tablet 2023-0 3-16 00:00: 00 Yes [id number] 1500mg Take 3 tablets by mouth 2 (two) times daily. Take 3 tablets in the morning and 3 tablets in the evening for 14 days. Then 7 days off . Take within 30 minutes of finishing a meal. [facility] capecitabin e 500 mg tablet 2023-0 3-16 00:00: 00 Yes [id number] 1500mg Take 3 tablets by mouth 2 (two) times daily. Take 3 tablets in the morning and 3 tablets in the evening for 14 days. Then 7 days off . Take within 30 minutes of finishing a meal. [facility] capecitabin e 500 mg tablet 2023-0 3-16 00:00: 00 Yes [id number] 1500mg Take 3 tablets by mouth 2 (two) times daily. Take 3 tablets in the morning and 3 tablets in the evening for 14 days. Then 7 days off . Take within 30 minutes of finishing a meal. [facility] capecitabin e 500 mg tablet 2023-0 3-16 00:00: 00 Yes [id number] 1500mg Take 3 tablets by mouth 2 (two) times daily. Take 3 tablets in the morning and 3 tablets in the evening for 14 days. Then 7 days off . Take within 30 minutes of finishing a meal. [facility] capecitabin e 500 mg tablet 2023-0 3-16 00:00: 00 Yes [id number] 1500mg Take 3 tablets by mouth 2 (two) times daily. Take 3 tablets in the morning and 3 tablets in the evening for 14 days. Then 7 days off . Take within 30 minutes of finishing a meal. [facility] capecitabin e 500 mg tablet 3-0 3-16 00:00: 00 Yes [id number] 1500mg Take 3 tablets by mouth 2 (two) times daily. Take 3 tablets in the morning and 3 tablets in the evening for 14 days. Then 7 days off . Take within 30 minutes of finishing a meal. [facility] capecitabin e 500 mg tablet 3-0 3-16 00:00: 00 Yes [id number] 1500mg Take 3 tablets by mouth 2 (two) times daily. Take 3 tablets in the morning and 3 tablets in the evening for 14 days. Then 7 days off . Take within 30 minutes of finishing a meal. [facility] capecitabin e 500 mg tablet 3-0 3-16 00:00: 00 Yes [id number] 1500mg Take 3 tablets by mouth 2 (two) times daily. Take 3 tablets in the morning and 3 tablets in the evening for 14 days. Then 7 days off . Take within 30 minutes of finishing a meal. [facility] capecitabin e 500 mg tablet 3-0 3-16 00:00: 00 Yes [id number] 1500mg Take 3 tablets by mouth 2 (two) times daily. Take 3 tablets in the morning and 3 tablets in the evening for 14 days. Then 7 days off . Take within 30 minutes of finishing a meal. [facility] capecitabin e 500 mg tablet 2023-0 3-16 00:00: 00 Yes [id number] 1500mg Take 3 tablets by mouth 2 (two) times daily. Take 3 tablets in the morning and 3 tablets in the evening for 14 days. Then 7 days off . Take within 30 minutes of finishing a meal. [facility] capecitabin e 500 mg tablet 2023-0 3-16 00:00: 00 Yes [id number] 1500mg Take 3 tablets by mouth 2 (two) times daily. Take 3 tablets in the morning and 3 tablets in the evening for 14 days. Then 7 days off . Take within 30 minutes of finishing a meal. [facility] capecitabin e 500 mg tablet 2023-0 3-16 00:00: 00 Yes [id number] 1500mg Take 3 tablets by mouth 2 (two) times daily. Take 3 tablets in the morning and 3 tablets in the evening for 14 days. Then 7 days off . Take within 30 minutes of finishing a meal. [facility] capecitabin e 500 mg tablet 2023-0 3-16 00:00: 00 Yes [id number] 1500mg Take 3 tablets by mouth 2 (two) times daily. Take 3 tablets in the morning and 3 tablets in the evening for 14 days. Then 7 days off . Take within 30 minutes of finishing a meal. [facility] capecitabin e 500 mg tablet 2023-0 3-16 00:00: 00 Yes [id number] 1500mg Take 3 tablets by mouth 2 (two) times daily. Take 3 tablets in the morning and 3 tablets in the evening for 14 days. Then 7 days off . Take within 30 minutes of finishing a meal. [facility] capecitabin e 500 mg tablet 2023-0 3-16 00:00: 00 Yes [id number] 1500mg Take 3 tablets by mouth 2 (two) times daily. Take 3 tablets in the morning and 3 tablets in the evening for 14 days. Then 7 days off . Take within 30 minutes of finishing a meal. [facility] capecitabin e 500 mg tablet 2023-0 3-16 00:00: 00 Yes [id number] 1500mg Take 3 tablets by mouth 2 (two) times daily. Take 3 tablets in the morning and 3 tablets in the evening for 14 days. Then 7 days off . Take within 30 minutes of finishing a meal. [facility] capecitabin e 500 mg tablet 2023-0 3-16 00:00: 00 Yes [id number] 1500mg Take 3 tablets by mouth 2 (two) times daily. Take 3 tablets in the morning and 3 tablets in the evening for 14 days. Then 7 days off . Take within 30 minutes of finishing a meal. [facility] capecitabin e 500 mg tablet 2023-0 3-16 00:00: 00 Yes [id number] 1500mg Take 3 tablets by mouth 2 (two) times daily. Take 3 tablets in the morning and 3 tablets in the evening for 14 days. Then 7 days off . Take within 30 minutes of finishing a meal. [facility] capecitabin e 500 mg tablet 2023-0 3-16 00:00: 00 Yes [id number] 1500mg Take 3 tablets by mouth 2 (two) times daily. Take 3 tablets in the morning and 3 tablets in the evening for 14 days. Then 7 days off . Take within 30 minutes of finishing a meal. [facility] capecitabin e 500 mg tablet 2023-0 3-16 00:00: 00 Yes [id number] 1500mg Take 3 tablets by mouth 2 (two) times daily. Take 3 tablets in the morning and 3 tablets in the evening for 14 days. Then 7 days off . Take within 30 minutes of finishing a meal. [facility] capecitabin e 500 mg tablet 2023-0 3-16 00:00: 00 Yes [id number] 1500mg Take 3 tablets by mouth 2 (two) times daily. Take 3 tablets in the morning and 3 tablets in the evening for 14 days. Then 7 days off . Take within 30 minutes of finishing a meal. [facility] capecitabin e 500 mg tablet 2023-0 3-16 00:00: 00 Yes [id number] 1500mg Take 3 tablets by mouth 2 (two) times daily. Take 3 tablets in the morning and 3 tablets in the evening for 14 days. Then 7 days off . Take within 30 minutes of finishing a meal. [facility] capecitabin e 500 mg tablet 2023-0 3-16 00:00: 00 Yes [id number] 1500mg Take 3 tablets by mouth 2 (two) times daily. Take 3 tablets in the morning and 3 tablets in the evening for 14 days. Then 7 days off . Take within 30 minutes of finishing a meal. [facility] capecitabin e 500 mg tablet 2023-0 3-16 00:00: 00 Yes [id number] 1500mg Take 3 tablets by mouth 2 (two) times daily. Take 3 tablets in the morning and 3 tablets in the evening for 14 days. Then 7 days off . Take within 30 minutes of finishing a meal. [facility] capecitabin e 500 mg tablet 2023-0 3-16 00:00: 00 Yes [id number] 1500mg Take 3 tablets by mouth 2 (two) times daily. Take 3 tablets in the morning and 3 tablets in the evening for 14 days. Then 7 days off . Take within 30 minutes of finishing a meal. [facility] capecitabin e 500 mg tablet 3-0 3-16 00:00: 00 Yes [id number] 1500mg Take 3 tablets by mouth 2 (two) times daily. Take 3 tablets in the morning and 3 tablets in the evening for 14 days. Then 7 days off . Take within 30 minutes of finishing a meal. [facility] capecit[facility] 500 mg tablet 3-0 3-16 00:00: 00 Yes [id number] 1500mg Take 3 tablets by mouth 2 (two) times daily. Take 3 tablets in the morning and 3 tablets in the evening for 14 days. Then 7 days off . Take within 30 minutes of finishing a meal. [facility] capecitabin e 500 mg tablet 3-0 3-16 00:00: 00 Yes [id number] 1500mg Take 3 tablets by mouth 2 (two) times daily. Take 3 tablets in the morning and 3 tablets in the evening for 14 days. Then 7 days off . Take within 30 minutes of finishing a meal. [facility] capecitabin e 500 mg tablet 2023-0 3-16 00:00: 00 Yes [id number] 1500mg Take 3 tablets by mouth 2 (two) times daily. Take 3 tablets in the morning and 3 tablets in the evening for 14 days. Then 7 days off . Take within 30 minutes of finishing a meal. [facility] capecitabin e 500 mg tablet 2023-0 3-16 00:00: 00 Yes [id number] 1500mg Take 3 tablets by mouth 2 (two) times daily. Take 3 tablets in the morning and 3 tablets in the evening for 14 days. Then 7 days off . Take within 30 minutes of finishing a meal. [facility] capecitabin e 500 mg tablet 2023-0 3-16 00:00: 00 Yes [id number] 1500mg Take 3 tablets by mouth 2 (two) times daily. Take 3 tablets in the morning and 3 tablets in the evening for 14 days. Then 7 days off . Take within 30 minutes of finishing a meal. [facility] capecitabin e 500 mg tablet 2023-0 3-16 00:00: 00 Yes [id number] 1500mg Take 3 tablets by mouth 2 (two) times daily. Take 3 tablets in the morning and 3 tablets in the evening for 14 days. Then 7 days off . Take within 30 minutes of finishing a meal. [facility] capecitabin e 500 mg tablet 2023-0 3-16 00:00: 00 Yes [id number] 1500mg Take 3 tablets by mouth 2 (two) times daily. Take 3 tablets in the morning and 3 tablets in the evening for 14 days. Then 7 days off . Take within 30 minutes of finishing a meal. [facility] capecitabin e 500 mg tablet 2023-0 3-16 00:00: 00 Yes [id number] 1500mg Take 3 tablets by mouth 2 (two) times daily. Take 3 tablets in the morning and 3 tablets in the evening for 14 days. Then 7 days off . Take within 30 minutes of finishing a meal. [facility] capecit[facility] 500 mg tablet 2023-0 3-16 00:00: 00 Yes [id number] 1500mg Take 3 tablets by mouth 2 (two) times daily. Take 3 tablets in the morning and 3 tablets in the evening for 14 days. Then 7 days off . Take within 30 minutes of finishing a meal. [facility] capecit[facility] 500 mg tablet 2023-0 3-16 00:00: 00 Yes [id number] 1500mg Take 3 tablets by mouth 2 (two) times daily. Take 3 tablets in the morning and 3 tablets in the evening for 14 days. Then 7 days off . Take within 30 minutes of finishing a meal. [facility]pecit[facility] 500 mg tablet 2023-0 3-16 00:00: 00 Yes [id number] 1500mg Take 3 tablets by mouth 2 (two) times daily. Take 3 tablets in the morning and 3 tablets in the evening for 14 days. Then 7 days off . Take within 30 minutes of finishing a meal. [facility]pecit[facility] 500 mg tablet 3-0 3-16 00:00: 00 Yes [id number] 1500mg Take 3 tablets by mouth 2 (two) times daily. Take 3 tablets in the morning and 3 tablets in the evening for 14 days. Then 7 days off . Take within 30 minutes of finishing a meal. [facility] capecit[facility] 500 mg tablet 3-0 3-16 00:00: 00 Yes [id number] 1500mg Take 3 tablets by mouth 2 (two) times daily. Take 3 tablets in the morning and 3 tablets in the evening for 14 days. Then 7 days off . Take within 30 minutes of finishing a meal. [facility] capecit[facility] 500 mg tablet 3-0 3-16 00:00: 00 Yes [id number] 1500mg Take 3 tablets by mouth 2 (two) times daily. Take 3 tablets in the morning and 3 tablets in the evening for 14 days. Then 7 days off . Take within 30 minutes of finishing a meal. [facility]pecit[facility] 500 mg tablet 3-0 3-16 00:00: 00 Yes [id number] 1500mg Take 3 tablets by mouth 2 (two) times daily. Take 3 tablets in the morning and 3 tablets in the evening for 14 days. Then 7 days off . Take within 30 minutes of finishing a meal. [facility] capecit[facility] 500 mg tablet 3-0 3-16 00:00: 00 Yes [id number] 1500mg Take 3 tablets by mouth 2 (two) times daily. Take 3 tablets in the morning and 3 tablets in the evening for 14 days. Then 7 days off . Take within 30 minutes of finishing a meal. [facility] capecitabin e 500 mg tablet 3-0 3-16 00:00: 00 Yes [id number] 1500mg Take 3 tablets by mouth 2 (two) times daily. Take 3 tablets in the morning and 3 tablets in the evening for 14 days. Then 7 days off . Take within 30 minutes of finishing a meal. [facility] capecitabin e 500 mg tablet 2023-0 3-16 00:00: 00 Yes [id number] 1500mg Take 3 tablets by mouth 2 (two) times daily. Take 3 tablets in the morning and 3 tablets in the evening for 14 days. Then 7 days off . Take within 30 minutes of finishing a meal. [facility] capecit[facility] 500 mg tablet 2023-0 3-16 00:00: 00 Yes [id number] 1500mg Take 3 tablets by mouth 2 (two) times daily. Take 3 tablets in the morning and 3 tablets in the evening for 14 days. Then 7 days off . Take within 30 minutes of finishing a meal. [facility] capecit[facility] 500 mg tablet 2023-0 3-16 00:00: 00 Yes [id number] 1500mg Take 3 tablets by mouth 2 (two) times daily. Take 3 tablets in the morning and 3 tablets in the evening for 14 days. Then 7 days off . Take within 30 minutes of finishing a meal. [facility]pecit[facility] 500 mg tablet 2023-0 3-16 00:00: 00 Yes [id number] 1500mg Take 3 tablets by mouth 2 (two) times daily. Take 3 tablets in the morning and 3 tablets in the evening for 14 days. Then 7 days off . Take within 30 minutes of finishing a meal. [facility]pecit[facility] 500 mg tablet 2023-0 3-16 00:00: 00 Yes [id number] 1500mg Take 3 tablets by mouth 2 (two) times daily. Take 3 tablets in the morning and 3 tablets in the evening for 14 days. Then 7 days off . Take within 30 minutes of finishing a meal. [facility]pecit[facility] 500 mg tablet 2023-0 3-16 00:00: 00 Yes [id number] 1500mg Take 3 tablets by mouth 2 (two) times daily. Take 3 tablets in the morning and 3 tablets in the evening for 14 days. Then 7 days off . Take within 30 minutes of finishing a meal. [facility]pecit[facility] 500 mg tablet 2023-0 3-16 00:00: 00 Yes [id number] 1500mg Take 3 tablets by mouth 2 (two) times daily. Take 3 tablets in the morning and 3 tablets in the evening for 14 days. Then 7 days off . Take within 30 minutes of finishing a meal. [facility]pecit[facility] 500 mg tablet 2023-0 3-16 00:00: 00 Yes [id number] 1500mg Take 3 tablets by mouth 2 (two) times daily. Take 3 tablets in the morning and 3 tablets in the evening for 14 days. Then 7 days off . Take within 30 minutes of finishing a meal. [facility]pecit[facility] 500 mg tablet 2023-0 3-16 00:00: 00 Yes [id number] 1500mg Take 3 tablets by mouth 2 (two) times daily. Take 3 tablets in the morning and 3 tablets in the evening for 14 days. Then 7 days off . Take within 30 minutes of finishing a meal. [facility] 500 mg tablet 3-0 3-16 00:00: 00 Yes [id number] 1500mg Take 3 tablets by mouth 2 (two) times daily. Take 3 tablets in the morning and 3 tablets in the evening for 14 days. Then 7 days off . Take within 30 minutes of finishing a meal. [facility] 500 mg tablet 2023-0 3-16 00:00: 00 Yes [id number] 1500mg Take 3 tablets by mouth 2 (two) times daily. Take 3 tablets in the morning and 3 tablets in the evening for 14 days. Then 7 days off . Take within 30 minutes of finishing a meal. [facility] 500 mg tablet 2023-0 3-16 00:00: 00 Yes [id number] 1500mg Take 3 tablets by mouth 2 (two) times daily. Take 3 tablets in the morning and 3 tablets in the evening for 14 days. Then 7 days off . Take within 30 minutes of finishing a meal. [facility] 500 mg tablet 2023-0 3-16 00:00: 00 Yes [id number] 1500mg Take 3 tablets by mouth 2 (two) times daily. Take 3 tablets in the morning and 3 tablets in the evening for 14 days. Then 7 days off . Take within 30 minutes of finishing a meal. [facility] 500 mg tablet 2023-0 3-16 00:00: 00 Yes [id number] 1500mg Take 3 tablets by mouth 2 (two) times daily. Take 3 tablets in the morning and 3 tablets in the evening for 14 days. Then 7 days off . Take within 30 minutes of finishing a meal. [facility] 500 mg tablet 2023-0 3-16 00:00: 00 Yes [id number] 1500mg Take 3 tablets by mouth 2 (two) times daily. Take 3 tablets in the morning and 3 tablets in the evening for 14 days. Then 7 days off . Take within 30 minutes of finishing a meal. [facility] 500 mg tablet 2023-0 3-16 00:00: 00 Yes [id number] 1500mg Take 3 tablets by mouth 2 (two) times daily. Take 3 tablets in the morning and 3 tablets in the evening for 14 days. Then 7 days off . Take within 30 minutes of finishing a meal. [facility]pec[facility] 500 mg tablet 2023-0 3-16 00:00: 00 Yes [id number] 1500mg Take 3 tablets by mouth 2 (two) times daily. Take 3 tablets in the morning and 3 tablets in the evening for 14 days. Then 7 days off . Take within 30 minutes of finishing a meal. [facility]pecit[facility] 500 mg tablet 2023-0 3-16 00:00: 00 Yes [id number] 1500mg Take 3 tablets by mouth 2 (two) times daily. Take 3 tablets in the morning and 3 tablets in the evening for 14 days. Then 7 days off . Take within 30 minutes of finishing a meal. [facility] 500 mg tablet 2023-0 3-16 00:00: 00 Yes [id number] 1500mg Take 3 tablets by mouth 2 (two) times daily. Take 3 tablets in the morning and 3 tablets in the evening for 14 days. Then 7 days off . Take within 30 minutes of finishing a meal. [facility]pecit[facility] 500 mg tablet 2023-0 3-16 00:00: 00 Yes [id number] 1500mg Take 3 tablets by mouth 2 (two) times daily. Take 3 tablets in the morning and 3 tablets in the evening for 14 days. Then 7 days off . Take within 30 minutes of finishing a meal. [facility] 500 mg tablet 3-0 3-16 00:00: 00 Yes [id number] 1500mg Take 3 tablets by mouth 2 (two) times daily. Take 3 tablets in the morning and 3 tablets in the evening for 14 days. Then 7 days off . Take within 30 minutes of finishing a meal. [facility] 500 mg tablet 2023-0 3-16 00:00: 00 Yes [id number] 1500mg Take 3 tablets by mouth 2 (two) times daily. Take 3 tablets in the morning and 3 tablets in the evening for 14 days. Then 7 days off . Take within 30 minutes of finishing a meal. [facility]pec[facility] 500 mg tablet 3-0 3-16 00:00: 00 Yes [id number] 1500mg Take 3 tablets by mouth 2 (two) times daily. Take 3 tablets in the morning and 3 tablets in the evening for 14 days. Then 7 days off . Take within 30 minutes of finishing a meal. [facility] 500 mg tablet 3-0 3-16 00:00: 00 Yes [id number] 1500mg Take 3 tablets by mouth 2 (two) times daily. Take 3 tablets in the morning and 3 tablets in the evening for 14 days. Then 7 days off . Take within 30 minutes of finishing a meal. [facility] 500 mg tablet 3-0 3-16 00:00: 00 Yes [id number] 1500mg Take 3 tablets by mouth 2 (two) times daily. Take 3 tablets in the morning and 3 tablets in the evening for 14 days. Then 7 days off . Take within 30 minutes of finishing a meal. [facility] 500 mg tablet 3-0 3-16 00:00: 00 Yes [id number] 1500mg Take 3 tablets by mouth 2 (two) times daily. Take 3 tablets in the morning and 3 tablets in the evening for 14 days. Then 7 days off . Take within 30 minutes of finishing a meal. [facility]pec[facility] 500 mg tablet 2023-0 3-16 00:00: 00 04-02 00:00 :00 No [id number] 1500mg Take 3 tablets by mouth 2 (two) times daily. Take 3 tablets in the morning and 3 tablets in the evening for 14 days. Then 7 days off . Take within 30 minutes of finishing a meal. [facility] iopamidol (ISOVUE 370-500 mL) injection 85 mL 10-12 20:15: 00 10-12 20:04 :00 No [id number] 04 85mL 85 mL, Intravenou s, ONCE, 1 dose, On Wed10/12/22 at 1415, Routine [facility] bevacizumab -bvzr (ZIRABEV) 500 mg in NaCl 0.9% (NS) 100 mL infusion 10-01 16:00: 00 10-01 16:59 :00 No [id number] 04 7.5mg/k g 500 mg (rounded from 536.25 mg = 7.5 mg/kg ?71.5 kg Treatment plan Recorded weight), IV Infusion, ONCE, Administer over 30 Minutes, On Wed10/01/22 at 1000, For 1 dose
Sh ould be diluted in 0.9% Sodium Chloride, not D5W. May store diluted solution in refrigerat or for up to 8 hours.&nbs p;Infuse 1st infusion over 90 minutes; 2nd infusion for 60 minutes; subsequent infusions over 30 minutes if well tolerated.
[facility] NaCl 0.9% (NS) IV infusion 1,000 mL 10-01 16:00: 00 10-01 17:30 :00 No [id number] 04 1000mL at 1,000 mL/hr, IV Infusion, ONCE, 1 dose, On Wed10/01/22 at 1000, Routine [facility] heparin lock flush (HEPARIN LOCKFLUSH(P ORCINE)(PF) ) 100 unit/mL injection 500 Units 10-01 15:56: 05 10-02 15:55 :05 No [id number] 04 500U 500 Units, IV Push, PRN, Starting on Wed10/01/22 at 0956, Until Wed10/02/22 at 0955, Routine [facility] gabapentin 300 mg capsule 3-0 2- 00:00: 00 Yes [id number] 300mg Take 1 capsule by mouth at bedtime. [facility] gabapentin 300 mg capsule 3-0 2- 00:00: 00 Yes [id number] 300mg Take 1 capsule by mouth at bedtime. [facility] gabapentin 300 mg capsule 3-0 2 00:00: 00 Yes [id number] 300mg Take 1 capsule by mouth at bedtime. [facility] capecitabin e 500 mg tablet 3-0 10-01 00:00: 00 Yes [id number] 04 1500mg Take 3 tablets by mouth 2 (two) times daily. Take 3 tablets in the morning and 3 tablets in the evening for 14 days. Then 7 days off . Take within 30 minutes of finishing a meal. [facility] gabapentin 300 mg capsule 3-0 2 00:00: 00 Yes [id number] 300mg Take 1 capsule by mouth at bedtime. [facility] capecitabin e 500 mg tablet 3-0 10-01 00:00: 00 Yes [id number] 04 1500mg Take 3 tablets by mouth 2 (two) times daily. Take 3 tablets in the morning and 3 tablets in the evening for 14 days. Then 7 days off . Take within 30 minutes of finishing a meal. [facility] gabapentin 300 mg capsule 3-0 2 00:00: 00 Yes [id number] 300mg Take 1 capsule by mouth at bedtime. [facility] capecitabin e 500 mg tablet 3-0 10-01 00:00: 00 Yes [id number] 04 1500mg Take 3 tablets by mouth 2 (two) times daily. Take 3 tablets in the morning and 3 tablets in the evening for 14 days. Then 7 days off . Take within 30 minutes of finishing a meal. [facility] gabapentin 300 mg capsule 3-0 2-23 00:00: 00 Yes [id number] 300mg Take 1 capsule by mouth at bedtime. [facility] capecitabin e 500 mg tablet 3-0 2- 00:00: 00 Yes [id number] 04 1500mg Take 3 tablets by mouth 2 (two) times daily. Take 3 tablets in the morning and 3 tablets in the evening for 14 days. Then 7 days off . Take within 30 minutes of finishing a meal. [facility] gabapentin 300 mg capsule 0 10-01 00:00: 00 Yes [id number] 300mg Take 1 capsule by mouth at bedtime. [facility] capecitabin e 500 mg tablet 2022-0 10-01 00:00: 00 Yes [id number] 04 1500mg Take 3 tablets by mouth 2 (two) times daily. Take 3 tablets in the morning and 3 tablets in the evening for 14 days. Then 7 days off . Take within 30 minutes of finishing a meal. [facility] capecitabin e 500 mg tablet 0 10-01 00:00: 00 Yes [id number] 04 1500mg Take 3 tablets by mouth 2 (two) times daily. Take 3 tablets in the morning and 3 tablets in the evening for 14 days. Then 7 days off . Take within 30 minutes of finishing a meal. [facility] capecitabin e 500 mg tablet 0 10-01 00:00: 00 Yes [id number] 04 1500mg Take 3 tablets by mouth 2 (two) times daily. Take 3 tablets in the morning and 3 tablets in the evening for 14 days. Then 7 days off . Take within 30 minutes of finishing a meal. [facility] capecitabin e 500 mg tablet 2022-0 10-01 00:00: 00 Yes [id number] 04 1500mg Take 3 tablets by mouth 2 (two) times daily. Take 3 tablets in the morning and 3 tablets in the evening for 14 days. Then 7 days off . Take within 30 minutes of finishing a meal. [facility] capecitabin e 500 mg tablet 2022-0 10-01 00:00: 00 Yes [id number] 04 1500mg Take 3 tablets by mouth 2 (two) times daily. Take 3 tablets in the morning and 3 tablets in the evening for 14 days. Then 7 days off . Take within 30 minutes of finishing a meal. [facility] capecitabin e 500 mg tablet 3-0 10-01 00:00: 00 Yes [id number] 04 1500mg Take 3 tablets by mouth 2 (two) times daily. Take 3 tablets in the morning and 3 tablets in the evening for 14 days. Then 7 days off . Take within 30 minutes of finishing a meal. [facility] capecitabin e 500 mg tablet 3-0 10-01 00:00: 00 Yes [id number] 04 1500mg Take 3 tablets by mouth 2 (two) times daily. Take 3 tablets in the morning and 3 tablets in the evening for 14 days. Then 7 days off . Take within 30 minutes of finishing a meal. [facility] capecitabin e 500 mg tablet 3-0 10-01 00:00: 00 Yes [id number] 04 1500mg Take 3 tablets by mouth 2 (two) times daily. Take 3 tablets in the morning and 3 tablets in the evening for 14 days. Then 7 days off . Take within 30 minutes of finishing a meal. [facility] capecitabin e 500 mg tablet 3-0 10-01 00:00: 00 Yes [id number] 04 1500mg Take 3 tablets by mouth 2 (two) times daily. Take 3 tablets in the morning and 3 tablets in the evening for 14 days. Then 7 days off . Take within 30 minutes of finishing a meal. [facility] capecitabin e 500 mg tablet 3-0 10-01 00:00: 00 Yes [id number] 1500mg Take 3 tablets by mouth 2 (two) times daily. Take 3 tablets in the morning and 3 tablets in the evening for 14 days. Then 7 days off . Take within 30 minutes of finishing a meal. [facility] capecitabin e 500 mg tablet 3-0 23 00:00: 00 Yes [id number] 1500mg Take 3 tablets by mouth 2 (two) times daily. Take 3 tablets in the morning and 3 tablets in the evening for 14 days. Then 7 days off . Take within 30 minutes of finishing a meal. [facility] capecitabin e 500 mg tablet 3-0 -23 00:00: 00 Yes [id number] 1500mg Take 3 tablets by mouth 2 (two) times daily. Take 3 tablets in the morning and 3 tablets in the evening for 14 days. Then 7 days off . Take within 30 minutes of finishing a meal. [facility] capecitabin e 500 mg tablet 2023-0 2-23 00:00: 00 Yes [id number] 1500mg Take 3 tablets by mouth 2 (two) times daily. Take 3 tablets in the morning and 3 tablets in the evening for 14 days. Then 7 days off . Take within 30 minutes of finishing a meal. [facility] capecitabin e 500 mg tablet 2023-0 2-23 00:00: 00 Yes [id number] 1500mg Take 3 tablets by mouth 2 (two) times daily. Take 3 tablets in the morning and 3 tablets in the evening for 14 days. Then 7 days off . Take within 30 minutes of finishing a meal. [facility] capecitabin e 500 mg tablet 2023-0 2-23 00:00: 00 Yes [id number] 1500mg Take 3 tablets by mouth 2 (two) times daily. Take 3 tablets in the morning and 3 tablets in the evening for 14 days. Then 7 days off . Take within 30 minutes of finishing a meal. [facility] capecitabin e 500 mg tablet 2023-0 2-23 00:00: 00 Yes [id number] 1500mg Take 3 tablets by mouth 2 (two) times daily. Take 3 tablets in the morning and 3 tablets in the evening for 14 days. Then 7 days off . Take within 30 minutes of finishing a meal. [facility] capecitabin e 500 mg tablet 3-0 2-23 00:00: 00 Yes [id number] 1500mg Take 3 tablets by mouth 2 (two) times daily. Take 3 tablets in the morning and 3 tablets in the evening for 14 days. Then 7 days off . Take within 30 minutes of finishing a meal. [facility] capecitabin e 500 mg tablet 2023-0 2-23 00:00: 00 Yes [id number] 1500mg Take 3 tablets by mouth 2 (two) times daily. Take 3 tablets in the morning and 3 tablets in the evening for 14 days. Then 7 days off . Take within 30 minutes of finishing a meal. [facility] capecitabin e 500 mg tablet 2023-0 2-23 00:00: 00 Yes [id number] 1500mg Take 3 tablets by mouth 2 (two) times daily. Take 3 tablets in the morning and 3 tablets in the evening for 14 days. Then 7 days off . Take within 30 minutes of finishing a meal. [facility] capecitabin e 500 mg tablet 3-0 2-23 00:00: 00 Yes [id number] 1500mg Take 3 tablets by mouth 2 (two) times daily. Take 3 tablets in the morning and 3 tablets in the evening for 14 days. Then 7 days off . Take within 30 minutes of finishing a meal. [facility] capecitabin e 500 mg tablet 3-0 223 00:00: 00 Yes [id number] 1500mg Take 3 tablets by mouth 2 (two) times daily. Take 3 tablets in the morning and 3 tablets in the evening for 14 days. Then 7 days off . Take within 30 minutes of finishing a meal. [facility] capecitabin e 500 mg tablet 3-0 2 00:00: 00 Yes [id number] 1500mg Take 3 tablets by mouth 2 (two) times daily. Take 3 tablets in the morning and 3 tablets in the evening for 14 days. Then 7 days off . Take within 30 minutes of finishing a meal. [facility] capecitabin e 500 mg tablet 3-0 2-23 00:00: 00 Yes [id number] 1500mg Take 3 tablets by mouth 2 (two) times daily. Take 3 tablets in the morning and 3 tablets in the evening for 14 days. Then 7 days off . Take within 30 minutes of finishing a meal. [facility] capecitabin e 500 mg tablet 3-0 223 00:00: 00 Yes [id number] 1500mg Take 3 tablets by mouth 2 (two) times daily. Take 3 tablets in the morning and 3 tablets in the evening for 14 days. Then 7 days off . Take within 30 minutes of finishing a meal. [facility] capecitabin e 500 mg tablet 3-0 2-23 00:00: 00 Yes [id number] 1500mg Take 3 tablets by mouth 2 (two) times daily. Take 3 tablets in the morning and 3 tablets in the evening for 14 days. Then 7 days off . Take within 30 minutes of finishing a meal. [facility] capecitabin e 500 mg tablet 3-0 2-23 00:00: 00 Yes [id number] 1500mg Take 3 tablets by mouth 2 (two) times daily. Take 3 tablets in the morning and 3 tablets in the evening for 14 days. Then 7 days off . Take within 30 minutes of finishing a meal. [facility] capecitabin e 500 mg tablet 2023-0 2-23 00:00: 00 Yes [id number] 1500mg Take 3 tablets by mouth 2 (two) times daily. Take 3 tablets in the morning and 3 tablets in the evening for 14 days. Then 7 days off . Take within 30 minutes of finishing a meal. [facility] capecitabin e 500 mg tablet 3-0 2-23 00:00: 00 Yes [id number] 1500mg Take 3 tablets by mouth 2 (two) times daily. Take 3 tablets in the morning and 3 tablets in the evening for 14 days. Then 7 days off . Take within 30 minutes of finishing a meal. [facility] capecitabin e 500 mg tablet 3-0 2-23 00:00: 00 Yes [id number] 1500mg Take 3 tablets by mouth 2 (two) times daily. Take 3 tablets in the morning and 3 tablets in the evening for 14 days. Then 7 days off . Take within 30 minutes of finishing a meal. [facility] capecitabin e 500 mg tablet 3-0 2-23 00:00: 00 Yes [id number] 1500mg Take 3 tablets by mouth 2 (two) times daily. Take 3 tablets in the morning and 3 tablets in the evening for 14 days. Then 7 days off . Take within 30 minutes of finishing a meal. [facility] capecitabin e 500 mg tablet 3-0 2-23 00:00: 00 Yes [id number] 1500mg Take 3 tablets by mouth 2 (two) times daily. Take 3 tablets in the morning and 3 tablets in the evening for 14 days. Then 7 days off . Take within 30 minutes of finishing a meal. [facility] capecitabin e 500 mg tablet 2023-0 2-23 00:00: 00 Yes [id number] 1500mg Take 3 tablets by mouth 2 (two) times daily. Take 3 tablets in the morning and 3 tablets in the evening for 14 days. Then 7 days off . Take within 30 minutes of finishing a meal. [facility] capecitabin e 500 mg tablet 2023-0 2-23 00:00: 00 Yes [id number] 1500mg Take 3 tablets by mouth 2 (two) times daily. Take 3 tablets in the morning and 3 tablets in the evening for 14 days. Then 7 days off . Take within 30 minutes of finishing a meal. [facility] capecitabin e 500 mg tablet 2023-0 2-23 00:00: 00 Yes [id number] 1500mg Take 3 tablets by mouth 2 (two) times daily. Take 3 tablets in the morning and 3 tablets in the evening for 14 days. Then 7 days off . Take within 30 minutes of finishing a meal. [facility] capecitabin e 500 mg tablet 2023-0 2-23 00:00: 00 Yes [id number] 1500mg Take 3 tablets by mouth 2 (two) times daily. Take 3 tablets in the morning and 3 tablets in the evening for 14 days. Then 7 days off . Take within 30 minutes of finishing a meal. [facility] capecitabin e 500 mg tablet 2023-0 2-23 00:00: 00 Yes [id number] 1500mg Take 3 tablets by mouth 2 (two) times daily. Take 3 tablets in the morning and 3 tablets in the evening for 14 days. Then 7 days off . Take within 30 minutes of finishing a meal. [facility] capecitabin e 500 mg tablet 2023-0 2-23 00:00: 00 Yes [id number] 1500mg Take 3 tablets by mouth 2 (two) times daily. Take 3 tablets in the morning and 3 tablets in the evening for 14 days. Then 7 days off . Take within 30 minutes of finishing a meal. [facility] capecitabin e 500 mg tablet 2023-0 2-23 00:00: 00 Yes [id number] 1500mg Take 3 tablets by mouth 2 (two) times daily. Take 3 tablets in the morning and 3 tablets in the evening for 14 days. Then 7 days off . Take within 30 minutes of finishing a meal. [facility] capecitabin e 500 mg tablet 2023-0 2-23 00:00: 00 Yes [id number] 1500mg Take 3 tablets by mouth 2 (two) times daily. Take 3 tablets in the morning and 3 tablets in the evening for 14 days. Then 7 days off . Take within 30 minutes of finishing a meal. [facility] capecitabin e 500 mg tablet 2023-0 2-23 00:00: 00 Yes [id number] 1500mg Take 3 tablets by mouth 2 (two) times daily. Take 3 tablets in the morning and 3 tablets in the evening for 14 days. Then 7 days off . Take within 30 minutes of finishing a meal. [facility] capecitabin e 500 mg tablet 2023-0 2-23 00:00: 00 Yes [id number] 1500mg Take 3 tablets by mouth 2 (two) times daily. Take 3 tablets in the morning and 3 tablets in the evening for 14 days. Then 7 days off . Take within 30 minutes of finishing a meal. [facility] capecitabin e 500 mg tablet 3-0 2-23 00:00: 00 Yes [id number] 1500mg Take 3 tablets by mouth 2 (two) times daily. Take 3 tablets in the morning and 3 tablets in the evening for 14 days. Then 7 days off . Take within 30 minutes of finishing a meal. [facility] capecitabin e 500 mg tablet 3-0 2-23 00:00: 00 Yes [id number] 1500mg Take 3 tablets by mouth 2 (two) times daily. Take 3 tablets in the morning and 3 tablets in the evening for 14 days. Then 7 days off . Take within 30 minutes of finishing a meal. [facility] capecitabin e 500 mg tablet 2023-0 2-23 00:00: 00 Yes [id number] 1500mg Take 3 tablets by mouth 2 (two) times daily. Take 3 tablets in the morning and 3 tablets in the evening for 14 days. Then 7 days off . Take within 30 minutes of finishing a meal. [facility] capecitabin e 500 mg tablet 2023-0 2-23 00:00: 00 Yes [id number] 1500mg Take 3 tablets by mouth 2 (two) times daily. Take 3 tablets in the morning and 3 tablets in the evening for 14 days. Then 7 days off . Take within 30 minutes of finishing a meal. [facility] capecitabin e 500 mg tablet 2023-0 2-23 00:00: 00 Yes [id number] 1500mg Take 3 tablets by mouth 2 (two) times daily. Take 3 tablets in the morning and 3 tablets in the evening for 14 days. Then 7 days off . Take within 30 minutes of finishing a meal. [facility] capecitabin e 500 mg tablet 2023-0 2-23 00:00: 00 Yes [id number] 1500mg Take 3 tablets by mouth 2 (two) times daily. Take 3 tablets in the morning and 3 tablets in the evening for 14 days. Then 7 days off . Take within 30 minutes of finishing a meal. [facility] capecitabin e 500 mg tablet 3-0 2-23 00:00: 00 Yes [id number] 1500mg Take 3 tablets by mouth 2 (two) times daily. Take 3 tablets in the morning and 3 tablets in the evening for 14 days. Then 7 days off . Take within 30 minutes of finishing a meal. [facility] capecitabin e 500 mg tablet 3-0 2-23 00:00: 00 Yes [id number] 1500mg Take 3 tablets by mouth 2 (two) times daily. Take 3 tablets in the morning and 3 tablets in the evening for 14 days. Then 7 days off . Take within 30 minutes of finishing a meal. [facility] capecitabin e 500 mg tablet 2023-0 2-23 00:00: 00 Yes [id number] 1500mg Take 3 tablets by mouth 2 (two) times daily. Take 3 tablets in the morning and 3 tablets in the evening for 14 days. Then 7 days off . Take within 30 minutes of finishing a meal. [facility] capecitabin e 500 mg tablet 2023-0 2-23 00:00: 00 Yes [id number] 1500mg Take 3 tablets by mouth 2 (two) times daily. Take 3 tablets in the morning and 3 tablets in the evening for 14 days. Then 7 days off . Take within 30 minutes of finishing a meal. [facility] capecitabin e 500 mg tablet 2023-0 2-23 00:00: 00 Yes [id number] 1500mg Take 3 tablets by mouth 2 (two) times daily. Take 3 tablets in the morning and 3 tablets in the evening for 14 days. Then 7 days off . Take within 30 minutes of finishing a meal. [facility] capecitabin e 500 mg tablet 3-0 223 00:00: 00 Yes [id number] 1500mg Take 3 tablets by mouth 2 (two) times daily. Take 3 tablets in the morning and 3 tablets in the evening for 14 days. Then 7 days off . Take within 30 minutes of finishing a meal. [facility] capecitabin e 500 mg tablet 3-0 223 00:00: 00 Yes [id number] 1500mg Take 3 tablets by mouth 2 (two) times daily. Take 3 tablets in the morning and 3 tablets in the evening for 14 days. Then 7 days off . Take within 30 minutes of finishing a meal. [facility] capecitabin e 500 mg tablet 3-0 2 00:00: 00 Yes [id number] 1500mg Take 3 tablets by mouth 2 (two) times daily. Take 3 tablets in the morning and 3 tablets in the evening for 14 days. Then 7 days off . Take within 30 minutes of finishing a meal. [facility] capecitabin e 500 mg tablet 3-0 223 00:00: 00 Yes [id number] 1500mg Take 3 tablets by mouth 2 (two) times daily. Take 3 tablets in the morning and 3 tablets in the evening for 14 days. Then 7 days off . Take within 30 minutes of finishing a meal. [facility] capecitabin e 500 mg tablet 3-0 223 00:00: 00 Yes [id number] 1500mg Take 3 tablets by mouth 2 (two) times daily. Take 3 tablets in the morning and 3 tablets in the evening for 14 days. Then 7 days off . Take within 30 minutes of finishing a meal. [facility] capecitabin e 500 mg tablet 3-0 2-23 00:00: 00 Yes [id number] 1500mg Take 3 tablets by mouth 2 (two) times daily. Take 3 tablets in the morning and 3 tablets in the evening for 14 days. Then 7 days off . Take within 30 minutes of finishing a meal. [facility] capecitabin e 500 mg tablet 3-0 2-23 00:00: 00 Yes [id number] 1500mg Take 3 tablets by mouth 2 (two) times daily. Take 3 tablets in the morning and 3 tablets in the evening for 14 days. Then 7 days off . Take within 30 minutes of finishing a meal. [facility] capecitabin e 500 mg tablet 2023-0 2-23 00:00: 00 Yes [id number] 1500mg Take 3 tablets by mouth 2 (two) times daily. Take 3 tablets in the morning and 3 tablets in the evening for 14 days. Then 7 days off . Take within 30 minutes of finishing a meal. [facility] capecitabin e 500 mg tablet 2023-0 2-23 00:00: 00 Yes [id number] 1500mg Take 3 tablets by mouth 2 (two) times daily. Take 3 tablets in the morning and 3 tablets in the evening for 14 days. Then 7 days off . Take within 30 minutes of finishing a meal. [facility] capecitabin e 500 mg tablet 3-0 2-23 00:00: 00 Yes [id number] 1500mg Take 3 tablets by mouth 2 (two) times daily. Take 3 tablets in the morning and 3 tablets in the evening for 14 days. Then 7 days off . Take within 30 minutes of finishing a meal. [facility] capecitabin e 500 mg tablet 3-0 2-23 00:00: 00 Yes [id number] 1500mg Take 3 tablets by mouth 2 (two) times daily. Take 3 tablets in the morning and 3 tablets in the evening for 14 days. Then 7 days off . Take within 30 minutes of finishing a meal. [facility] capecitabin e 500 mg tablet 2023-0 2-23 00:00: 00 Yes [id number] 1500mg Take 3 tablets by mouth 2 (two) times daily. Take 3 tablets in the morning and 3 tablets in the evening for 14 days. Then 7 days off . Take within 30 minutes of finishing a meal. [facility] capecitabin e 500 mg tablet 2023-0 2-23 00:00: 00 Yes [id number] 1500mg Take 3 tablets by mouth 2 (two) times daily. Take 3 tablets in the morning and 3 tablets in the evening for 14 days. Then 7 days off . Take within 30 minutes of finishing a meal. [facility] capecitabin e 500 mg tablet 3-0 2 00:00: 00 Yes [id number] 1500mg Take 3 tablets by mouth 2 (two) times daily. Take 3 tablets in the morning and 3 tablets in the evening for 14 days. Then 7 days off . Take within 30 minutes of finishing a meal. [facility] capecitabin e 500 mg tablet 3-0 10-01 00:00: 00 Yes [id number] 1500mg Take 3 tablets by mouth 2 (two) times daily. Take 3 tablets in the morning and 3 tablets in the evening for 14 days. Then 7 days off . Take within 30 minutes of finishing a meal. [facility] capecitabin e 500 mg tablet 3-0 2 00:00: 00 Yes [id number] 1500mg Take 3 tablets by mouth 2 (two) times daily. Take 3 tablets in the morning and 3 tablets in the evening for 14 days. Then 7 days off . Take within 30 minutes of finishing a meal. [facility] capecitabin e 500 mg tablet 3-0 2 00:00: 00 Yes [id number] 1500mg Take 3 tablets by mouth 2 (two) times daily. Take 3 tablets in the morning and 3 tablets in the evening for 14 days. Then 7 days off . Take within 30 minutes of finishing a meal. [facility] capecitabin e 500 mg tablet 3-0 2 00:00: 00 Yes [id number] 1500mg Take 3 tablets by mouth 2 (two) times daily. Take 3 tablets in the morning and 3 tablets in the evening for 14 days. Then 7 days off . Take within 30 minutes of finishing a meal. [facility] capecitabin e 500 mg tablet 3-0 2-23 00:00: 00 Yes [id number] 1500mg Take 3 tablets by mouth 2 (two) times daily. Take 3 tablets in the morning and 3 tablets in the evening for 14 days. Then 7 days off . Take within 30 minutes of finishing a meal. [facility] capecitabin e 500 mg tablet 3-0 223 00:00: 00 Yes [id number] 1500mg Take 3 tablets by mouth 2 (two) times daily. Take 3 tablets in the morning and 3 tablets in the evening for 14 days. Then 7 days off . Take within 30 minutes of finishing a meal. [facility] capecitabin e 500 mg tablet 3-0 2-23 00:00: 00 Yes [id number] 1500mg Take 3 tablets by mouth 2 (two) times daily. Take 3 tablets in the morning and 3 tablets in the evening for 14 days. Then 7 days off . Take within 30 minutes of finishing a meal. [facility] capecitabin e 500 mg tablet 3-0 223 00:00: 00 Yes [id number] 1500mg Take 3 tablets by mouth 2 (two) times daily. Take 3 tablets in the morning and 3 tablets in the evening for 14 days. Then 7 days off . Take within 30 minutes of finishing a meal. [facility] capecitabin e 500 mg tablet 3-0 223 00:00: 00 Yes [id number] 1500mg Take 3 tablets by mouth 2 (two) times daily. Take 3 tablets in the morning and 3 tablets in the evening for 14 days. Then 7 days off . Take within 30 minutes of finishing a meal. [facility] capecitabin e 500 mg tablet 3-0 223 00:00: 00 Yes [id number] 1500mg Take 3 tablets by mouth 2 (two) times daily. Take 3 tablets in the morning and 3 tablets in the evening for 14 days. Then 7 days off . Take within 30 minutes of finishing a meal. [facility] capecitabin e 500 mg tablet 3-0 223 00:00: 00 Yes [id number] 1500mg Take 3 tablets by mouth 2 (two) times daily. Take 3 tablets in the morning and 3 tablets in the evening for 14 days. Then 7 days off . Take within 30 minutes of finishing a meal. [facility] capecitabin e 500 mg tablet 3-0 2-23 00:00: 00 Yes [id number] 1500mg Take 3 tablets by mouth 2 (two) times daily. Take 3 tablets in the morning and 3 tablets in the evening for 14 days. Then 7 days off . Take within 30 minutes of finishing a meal. [facility] capecitabin e 500 mg tablet 3-0 2-23 00:00: 00 Yes [id number] 1500mg Take 3 tablets by mouth 2 (two) times daily. Take 3 tablets in the morning and 3 tablets in the evening for 14 days. Then 7 days off . Take within 30 minutes of finishing a meal. [facility] capecitabin e 500 mg tablet 3-0 2-23 00:00: 00 Yes [id number] 1500mg Take 3 tablets by mouth 2 (two) times daily. Take 3 tablets in the morning and 3 tablets in the evening for 14 days. Then 7 days off . Take within 30 minutes of finishing a meal. [facility] capecitabin e 500 mg tablet 3-0 2-23 00:00: 00 Yes [id number] 1500mg Take 3 tablets by mouth 2 (two) times daily. Take 3 tablets in the morning and 3 tablets in the evening for 14 days. Then 7 days off . Take within 30 minutes of finishing a meal. [facility] capecitabin e 500 mg tablet 3-0 2-23 00:00: 00 Yes [id number] 1500mg Take 3 tablets by mouth 2 (two) times daily. Take 3 tablets in the morning and 3 tablets in the evening for 14 days. Then 7 days off . Take within 30 minutes of finishing a meal. [facility] capecitabin e 500 mg tablet 3-0 2-23 00:00: 00 Yes [id number] 1500mg Take 3 tablets by mouth 2 (two) times daily. Take 3 tablets in the morning and 3 tablets in the evening for 14 days. Then 7 days off . Take within 30 minutes of finishing a meal. [facility] capecitabin e 500 mg tablet 3-0 2-23 00:00: 00 Yes [id number] 1500mg Take 3 tablets by mouth 2 (two) times daily. Take 3 tablets in the morning and 3 tablets in the evening for 14 days. Then 7 days off . Take within 30 minutes of finishing a meal. [facility] capecitabin e 500 mg tablet 2023-0 2-23 00:00: 00 Yes [id number] 1500mg Take 3 tablets by mouth 2 (two) times daily. Take 3 tablets in the morning and 3 tablets in the evening for 14 days. Then 7 days off . Take within 30 minutes of finishing a meal. [facility] capecitabin e 500 mg tablet 3-0 223 00:00: 00 Yes [id number] 1500mg Take 3 tablets by mouth 2 (two) times daily. Take 3 tablets in the morning and 3 tablets in the evening for 14 days. Then 7 days off . Take within 30 minutes of finishing a meal. [facility] capecitabin e 500 mg tablet 3-0 10-01 00:00: 00 Yes [id number] 1500mg Take 3 tablets by mouth 2 (two) times daily. Take 3 tablets in the morning and 3 tablets in the evening for 14 days. Then 7 days off . Take within 30 minutes of finishing a meal. [facility] capecitabin e 500 mg tablet 3-0 10-01 00:00: 00 Yes [id number] 1500mg Take 3 tablets by mouth 2 (two) times daily. Take 3 tablets in the morning and 3 tablets in the evening for 14 days. Then 7 days off . Take within 30 minutes of finishing a meal. [facility] capecitabin e 500 mg tablet 3-0 10-01 00:00: 00 Yes [id number] 1500mg Take 3 tablets by mouth 2 (two) times daily. Take 3 tablets in the morning and 3 tablets in the evening for 14 days. Then 7 days off . Take within 30 minutes of finishing a meal. [facility] capecitabin e 500 mg tablet 3-0 23 00:00: 00 Yes [id number] 1500mg Take 3 tablets by mouth 2 (two) times daily. Take 3 tablets in the morning and 3 tablets in the evening for 14 days. Then 7 days off . Take within 30 minutes of finishing a meal. [facility] capecitabin e 500 mg tablet 3-0 223 00:00: 00 Yes [id number] 1500mg Take 3 tablets by mouth 2 (two) times daily. Take 3 tablets in the morning and 3 tablets in the evening for 14 days. Then 7 days off . Take within 30 minutes of finishing a meal. [facility] capecitabin e 500 mg tablet 2023-0 2-23 00:00: 00 Yes [id number] 1500mg Take 3 tablets by mouth 2 (two) times daily. Take 3 tablets in the morning and 3 tablets in the evening for 14 days. Then 7 days off . Take within 30 minutes of finishing a meal. [facility] capecitabin e 500 mg tablet 2023-0 2-23 00:00: 00 Yes [id number] 1500mg Take 3 tablets by mouth 2 (two) times daily. Take 3 tablets in the morning and 3 tablets in the evening for 14 days. Then 7 days off . Take within 30 minutes of finishing a meal. [facility] capecitabin e 500 mg tablet 3-0 2-23 00:00: 00 Yes [id number] 1500mg Take 3 tablets by mouth 2 (two) times daily. Take 3 tablets in the morning and 3 tablets in the evening for 14 days. Then 7 days off . Take within 30 minutes of finishing a meal. [facility] capecitabin e 500 mg tablet 3-0 223 00:00: 00 Yes [id number] 1500mg Take 3 tablets by mouth 2 (two) times daily. Take 3 tablets in the morning and 3 tablets in the evening for 14 days. Then 7 days off . Take within 30 minutes of finishing a meal. [facility] capecitabin e 500 mg tablet 3-0 2-23 00:00: 00 Yes [id number] 1500mg Take 3 tablets by mouth 2 (two) times daily. Take 3 tablets in the morning and 3 tablets in the evening for 14 days. Then 7 days off . Take within 30 minutes of finishing a meal. [facility] capecitabin e 500 mg tablet 3-0 2-23 00:00: 00 Yes [id number] 1500mg Take 3 tablets by mouth 2 (two) times daily. Take 3 tablets in the morning and 3 tablets in the evening for 14 days. Then 7 days off . Take within 30 minutes of finishing a meal. [facility] capecitabin e 500 mg tablet 2023-0 2-23 00:00: 00 Yes [id number] 1500mg Take 3 tablets by mouth 2 (two) times daily. Take 3 tablets in the morning and 3 tablets in the evening for 14 days. Then 7 days off . Take within 30 minutes of finishing a meal. [facility] capecitabin e 500 mg tablet 3-0 10-01 00:00: 00 Yes [id number] 1500mg Take 3 tablets by mouth 2 (two) times daily. Take 3 tablets in the morning and 3 tablets in the evening for 14 days. Then 7 days off . Take within 30 minutes of finishing a meal. [facility] capecitabin e 500 mg tablet 3-0 10-01 00:00: 00 Yes [id number] 1500mg Take 3 tablets by mouth 2 (two) times daily. Take 3 tablets in the morning and 3 tablets in the evening for 14 days. Then 7 days off . Take within 30 minutes of finishing a meal. [facility] capecitabin e 500 mg tablet 3-0 10-01 00:00: 00 Yes [id number] 1500mg Take 3 tablets by mouth 2 (two) times daily. Take 3 tablets in the morning and 3 tablets in the evening for 14 days. Then 7 days off . Take within 30 minutes of finishing a meal. [facility] capecitabin e 500 mg tablet 3-0 10-01 00:00: 00 Yes [id number] 1500mg Take 3 tablets by mouth 2 (two) times daily. Take 3 tablets in the morning and 3 tablets in the evening for 14 days. Then 7 days off . Take within 30 minutes of finishing a meal. [facility] capecitabin e 500 mg tablet 3-0 10-01 00:00: 00 Yes [id number] 1500mg Take 3 tablets by mouth 2 (two) times daily. Take 3 tablets in the morning and 3 tablets in the evening for 14 days. Then 7 days off . Take within 30 minutes of finishing a meal. [facility] capecitabin e 500 mg tablet 3-0 -23 00:00: 00 Yes [id number] 1500mg Take 3 tablets by mouth 2 (two) times daily. Take 3 tablets in the morning and 3 tablets in the evening for 14 days. Then 7 days off . Take within 30 minutes of finishing a meal. [facility] capecitabin e 500 mg tablet 3-0 2-23 00:00: 00 Yes [id number] 1500mg Take 3 tablets by mouth 2 (two) times daily. Take 3 tablets in the morning and 3 tablets in the evening for 14 days. Then 7 days off . Take within 30 minutes of finishing a meal. [facility] capecitabin e 500 mg tablet 3-0 2-23 00:00: 00 Yes [id number] 1500mg Take 3 tablets by mouth 2 (two) times daily. Take 3 tablets in the morning and 3 tablets in the evening for 14 days. Then 7 days off . Take within 30 minutes of finishing a meal. [facility] capecitabin e 500 mg tablet 3-0 2-23 00:00: 00 Yes [id number] 1500mg Take 3 tablets by mouth 2 (two) times daily. Take 3 tablets in the morning and 3 tablets in the evening for 14 days. Then 7 days off . Take within 30 minutes of finishing a meal. [facility] capecitabin e 500 mg tablet 3-0 2-23 00:00: 00 Yes [id number] 1500mg Take 3 tablets by mouth 2 (two) times daily. Take 3 tablets in the morning and 3 tablets in the evening for 14 days. Then 7 days off . Take within 30 minutes of finishing a meal. [facility] capecitabin e 500 mg tablet 3-0 2-23 00:00: 00 Yes [id number] 1500mg Take 3 tablets by mouth 2 (two) times daily. Take 3 tablets in the morning and 3 tablets in the evening for 14 days. Then 7 days off . Take within 30 minutes of finishing a meal. [facility] capecitabin e 500 mg tablet 3-0 2-23 00:00: 00 Yes [id number] 1500mg Take 3 tablets by mouth 2 (two) times daily. Take 3 tablets in the morning and 3 tablets in the evening for 14 days. Then 7 days off . Take within 30 minutes of finishing a meal. [facility] capecitabin e 500 mg tablet 3-0 2-23 00:00: 00 04-02 00:00 :00 No [id number] 1500mg Take 3 tablets by mouth 2 (two) times daily. Take 3 tablets in the morning and 3 tablets in the evening for 14 days. Then 7 days off . Take within 30 minutes of finishing a meal. [facility] gabapentin 300 mg capsule 10-01 00:00: 00 10-22 00:00 :00 No [id number] 300mg Take 1 capsule by mouth at bedtime. [facility] gabapentin 300 mg capsule 10-01 00:00: 00 10-22 00:00 :00 No [id number] 300mg Take 1 capsule by mouth at bedtime. [facility] bevacizumab -bvzr (ZIRABEV) 500 mg in NaCl 0.9% (NS) 100 mL infusion 09-10 16:00: 00 09-10 17:20 :00 No [id number] 04 7.5mg/k g 500 mg (rounded from 536.25 mg = 7.5 mg/kg ?71.5 kg Treatment plan Recorded weight), IV Infusion, ONCE, Administer over 30 Minutes, On Wed09/10/22 at 1000, For 1 dose
Sh ould be diluted in 0.9% Sodium Chloride, not D5W. May store diluted solution in refrigerat or for up to 8 hours.&nbs p;Infuse 1st infusion over 90 minutes; 2nd infusion for 60 minutes; subsequent infusions over 30 minutes if well tolerated.
[facility] NaCl 0.9% (NS) IV infusion 500 mL 09-10 16:00: 00 09-10 16:35 :00 No [id number] 500mL at 1,000 mL/hr, IV Infusion, ONCE, 1 dose, On Mireya 09/10/22 at 1000, Routine [facility] heparin lock flush (HEPARIN LOCKFLUSH(P ORCINE)(PF) ) 100 unit/mL injection 500 Units 09-10 15:58: 12 09-11 15:57 :12 No [id number] 04 500U 500 Units, IV Push, PRN, Starting on Wed09/10/22 at 0958, Until Wed09/11/22 at 0957, Routine [facility] capecitabin e 500 mg tablet 3-0 2-02 00:00: 00 Yes [id number] 04 1500mg Take 3 tablets by mouth 2 (two) times daily. Take 3 tablets in the morning and 3 tablets in the evening for 14 days. Then 7 days off . Take within 30 minutes of finishing a meal. [facility] capecitabin e 500 mg tablet 3-0 2-02 00:00: 00 Yes [id number] 04 1500mg Take 3 tablets by mouth 2 (two) times daily. Take 3 tablets in the morning and 3 tablets in the evening for 14 days. Then 7 days off . Take within 30 minutes of finishing a meal. [facility] capecitabin e 500 mg tablet 3-0 2-02 00:00: 00 Yes [id number] 04 1500mg Take 3 tablets by mouth 2 (two) times daily. Take 3 tablets in the morning and 3 tablets in the evening for 14 days. Then 7 days off . Take within 30 minutes of finishing a meal. [facility] capecitabin e 500 mg tablet 3-0 2-02 00:00: 00 Yes [id number] 04 1500mg Take 3 tablets by mouth 2 (two) times daily. Take 3 tablets in the morning and 3 tablets in the evening for 14 days. Then 7 days off . Take within 30 minutes of finishing a meal. [facility] capecitabin e 500 mg tablet 3-0 2-02 00:00: 00 Yes [id number] 04 1500mg Take 3 tablets by mouth 2 (two) times daily. Take 3 tablets in the morning and 3 tablets in the evening for 14 days. Then 7 days off . Take within 30 minutes of finishing a meal. [facility] capecitabin e 500 mg tablet 3-0 2-02 00:00: 00 Yes [id number] 04 1500mg Take 3 tablets by mouth 2 (two) times daily. Take 3 tablets in the morning and 3 tablets in the evening for 14 days. Then 7 days off . Take within 30 minutes of finishing a meal. [facility] capecitabin e 500 mg tablet 3-0 2-02 00:00: 00 Yes [id number] 04 1500mg Take 3 tablets by mouth 2 (two) times daily. Take 3 tablets in the morning and 3 tablets in the evening for 14 days. Then 7 days off . Take within 30 minutes of finishing a meal. [facility] capecitabin e 500 mg tablet 2022-0 2-02 00:00: 00 Yes [id number] 04 1500mg Take 3 tablets by mouth 2 (two) times daily. Take 3 tablets in the morning and 3 tablets in the evening for 14 days. Then 7 days off . Take within 30 minutes of finishing a meal. [facility] capecitabin e 500 mg tablet 3-0 2-02 00:00: 00 Yes [id number] 04 1500mg Take 3 tablets by mouth 2 (two) times daily. Take 3 tablets in the morning and 3 tablets in the evening for 14 days. Then 7 days off . Take within 30 minutes of finishing a meal. [facility] capecitabin e 500 mg tablet 3-0 2-02 00:00: 00 Yes [id number] 04 1500mg Take 3 tablets by mouth 2 (two) times daily. Take 3 tablets in the morning and 3 tablets in the evening for 14 days. Then 7 days off . Take within 30 minutes of finishing a meal. [facility] capecitabin e 500 mg tablet 3-0 2-02 00:00: 00 Yes [id number] 04 1500mg Take 3 tablets by mouth 2 (two) times daily. Take 3 tablets in the morning and 3 tablets in the evening for 14 days. Then 7 days off . Take within 30 minutes of finishing a meal. [facility] capecitabin e 500 mg tablet 3-0 2-02 00:00: 00 Yes [id number] 04 1500mg Take 3 tablets by mouth 2 (two) times daily. Take 3 tablets in the morning and 3 tablets in the evening for 14 days. Then 7 days off . Take within 30 minutes of finishing a meal. [facility] capecitabin e 500 mg tablet 3-0 2-02 00:00: 00 Yes [id number] 04 1500mg Take 3 tablets by mouth 2 (two) times daily. Take 3 tablets in the morning and 3 tablets in the evening for 14 days. Then 7 days off . Take within 30 minutes of finishing a meal. [facility] capecitabin e 500 mg tablet 3-0 2-02 00:00: 00 Yes [id number] 04 1500mg Take 3 tablets by mouth 2 (two) times daily. Take 3 tablets in the morning and 3 tablets in the evening for 14 days. Then 7 days off . Take within 30 minutes of finishing a meal. [facility] capecitabin e 500 mg tablet 3-0 2-02 00:00: 00 Yes [id number] 04 1500mg Take 3 tablets by mouth 2 (two) times daily. Take 3 tablets in the morning and 3 tablets in the evening for 14 days. Then 7 days off . Take within 30 minutes of finishing a meal. [facility] capecitabin e 500 mg tablet 3-0 2-02 00:00: 00 Yes [id number] 04 1500mg Take 3 tablets by mouth 2 (two) times daily. Take 3 tablets in the morning and 3 tablets in the evening for 14 days. Then 7 days off . Take within 30 minutes of finishing a meal. [facility] capecitabin e 500 mg tablet 3-0 2-02 00:00: 00 Yes [id number] 04 1500mg Take 3 tablets by mouth 2 (two) times daily. Take 3 tablets in the morning and 3 tablets in the evening for 14 days. Then 7 days off . Take within 30 minutes of finishing a meal. [facility] capecitabin e 500 mg tablet 3-0 2-02 00:00: 00 Yes [id number] 04 1500mg Take 3 tablets by mouth 2 (two) times daily. Take 3 tablets in the morning and 3 tablets in the evening for 14 days. Then 7 days off . Take within 30 minutes of finishing a meal. [facility] capecitabin e 500 mg tablet 3-0 2-02 00:00: 00 Yes [id number] 04 1500mg Take 3 tablets by mouth 2 (two) times daily. Take 3 tablets in the morning and 3 tablets in the evening for 14 days. Then 7 days off . Take within 30 minutes of finishing a meal. [facility] capecitabin e 500 mg tablet 2023-0 2-02 00:00: 00 Yes [id number] 04 1500mg Take 3 tablets by mouth 2 (two) times daily. Take 3 tablets in the morning and 3 tablets in the evening for 14 days. Then 7 days off . Take within 30 minutes of finishing a meal. [facility] capecitabin e 500 mg tablet 2022-0 09-10 00:00: 00 Yes [id number] 04 1500mg Take 3 tablets by mouth 2 (two) times daily. Take 3 tablets in the morning and 3 tablets in the evening for 14 days. Then 7 days off . Take within 30 minutes of finishing a meal. [facility] capecitabin e 500 mg tablet 2022-0 09-10 00:00: 00 Yes [id number] 1500mg Take 3 tablets by mouth 2 (two) times daily. Take 3 tablets in the morning and 3 tablets in the evening for 14 days. Then 7 days off . Take within 30 minutes of finishing a meal. [facility] capecitabin e 500 mg tablet 2022-0 09-10 00:00: 00 Yes [id number] 1500mg Take 3 tablets by mouth 2 (two) times daily. Take 3 tablets in the morning and 3 tablets in the evening for 14 days. Then 7 days off . Take within 30 minutes of finishing a meal. [facility] capecitabin e 500 mg tablet 2022-0 09-10 00:00: 00 Yes [id number] 1500mg Take 3 tablets by mouth 2 (two) times daily. Take 3 tablets in the morning and 3 tablets in the evening for 14 days. Then 7 days off . Take within 30 minutes of finishing a meal. [facility] capecitabin e 500 mg tablet 2022-0 - 00:00: 00 Yes [id number] 1500mg Take 3 tablets by mouth 2 (two) times daily. Take 3 tablets in the morning and 3 tablets in the evening for 14 days. Then 7 days off . Take within 30 minutes of finishing a meal. [facility] capecitabin e 500 mg tablet 3-0 -02 00:00: 00 Yes [id number] 1500mg Take 3 tablets by mouth 2 (two) times daily. Take 3 tablets in the morning and 3 tablets in the evening for 14 days. Then 7 days off . Take within 30 minutes of finishing a meal. [facility] capecitabin e 500 mg tablet 3-0 2-02 00:00: 00 Yes [id number] 1500mg Take 3 tablets by mouth 2 (two) times daily. Take 3 tablets in the morning and 3 tablets in the evening for 14 days. Then 7 days off . Take within 30 minutes of finishing a meal. [facility] capecitabin e 500 mg tablet 2023-0 2-02 00:00: 00 Yes [id number] 1500mg Take 3 tablets by mouth 2 (two) times daily. Take 3 tablets in the morning and 3 tablets in the evening for 14 days. Then 7 days off . Take within 30 minutes of finishing a meal. [facility] capecitabin e 500 mg tablet 3-0 2-02 00:00: 00 Yes [id number] 1500mg Take 3 tablets by mouth 2 (two) times daily. Take 3 tablets in the morning and 3 tablets in the evening for 14 days. Then 7 days off . Take within 30 minutes of finishing a meal. [facility] capecitabin e 500 mg tablet 3-0 2-02 00:00: 00 Yes [id number] 1500mg Take 3 tablets by mouth 2 (two) times daily. Take 3 tablets in the morning and 3 tablets in the evening for 14 days. Then 7 days off . Take within 30 minutes of finishing a meal. [facility] capecitabin e 500 mg tablet 3-0 2-02 00:00: 00 Yes [id number] 1500mg Take 3 tablets by mouth 2 (two) times daily. Take 3 tablets in the morning and 3 tablets in the evening for 14 days. Then 7 days off . Take within 30 minutes of finishing a meal. [facility] capecitabin e 500 mg tablet 3-0 2-02 00:00: 00 Yes [id number] 1500mg Take 3 tablets by mouth 2 (two) times daily. Take 3 tablets in the morning and 3 tablets in the evening for 14 days. Then 7 days off . Take within 30 minutes of finishing a meal. [facility] capecitabin e 500 mg tablet 3-0 2-02 00:00: 00 Yes [id number] 1500mg Take 3 tablets by mouth 2 (two) times daily. Take 3 tablets in the morning and 3 tablets in the evening for 14 days. Then 7 days off . Take within 30 minutes of finishing a meal. [facility] capecitabin e 500 mg tablet 3-0 2-02 00:00: 00 Yes [id number] 1500mg Take 3 tablets by mouth 2 (two) times daily. Take 3 tablets in the morning and 3 tablets in the evening for 14 days. Then 7 days off . Take within 30 minutes of finishing a meal. [facility] capecitabin e 500 mg tablet 3-0 2-02 00:00: 00 Yes [id number] 1500mg Take 3 tablets by mouth 2 (two) times daily. Take 3 tablets in the morning and 3 tablets in the evening for 14 days. Then 7 days off . Take within 30 minutes of finishing a meal. [facility] capecitabin e 500 mg tablet 3-0 2-02 00:00: 00 Yes [id number] 1500mg Take 3 tablets by mouth 2 (two) times daily. Take 3 tablets in the morning and 3 tablets in the evening for 14 days. Then 7 days off . Take within 30 minutes of finishing a meal. [facility] capecitabin e 500 mg tablet 3-0 2-02 00:00: 00 Yes [id number] 1500mg Take 3 tablets by mouth 2 (two) times daily. Take 3 tablets in the morning and 3 tablets in the evening for 14 days. Then 7 days off . Take within 30 minutes of finishing a meal. [facility] capecitabin e 500 mg tablet 3-0 2-02 00:00: 00 Yes [id number] 1500mg Take 3 tablets by mouth 2 (two) times daily. Take 3 tablets in the morning and 3 tablets in the evening for 14 days. Then 7 days off . Take within 30 minutes of finishing a meal. [facility] capecitabin e 500 mg tablet 3-0 2-02 00:00: 00 Yes [id number] 1500mg Take 3 tablets by mouth 2 (two) times daily. Take 3 tablets in the morning and 3 tablets in the evening for 14 days. Then 7 days off . Take within 30 minutes of finishing a meal. [facility] capecitabin e 500 mg tablet 3-0 2-02 00:00: 00 Yes [id number] 1500mg Take 3 tablets by mouth 2 (two) times daily. Take 3 tablets in the morning and 3 tablets in the evening for 14 days. Then 7 days off . Take within 30 minutes of finishing a meal. [facility] capecitabin e 500 mg tablet 3-0 2-02 00:00: 00 Yes [id number] 1500mg Take 3 tablets by mouth 2 (two) times daily. Take 3 tablets in the morning and 3 tablets in the evening for 14 days. Then 7 days off . Take within 30 minutes of finishing a meal. [facility] capecitabin e 500 mg tablet 3-0 2-02 00:00: 00 Yes [id number] 1500mg Take 3 tablets by mouth 2 (two) times daily. Take 3 tablets in the morning and 3 tablets in the evening for 14 days. Then 7 days off . Take within 30 minutes of finishing a meal. [facility] capecitabin e 500 mg tablet 3-0 2-02 00:00: 00 Yes [id number] 1500mg Take 3 tablets by mouth 2 (two) times daily. Take 3 tablets in the morning and 3 tablets in the evening for 14 days. Then 7 days off . Take within 30 minutes of finishing a meal. [facility] capecitabin e 500 mg tablet 3-0 2-02 00:00: 00 Yes [id number] 1500mg Take 3 tablets by mouth 2 (two) times daily. Take 3 tablets in the morning and 3 tablets in the evening for 14 days. Then 7 days off . Take within 30 minutes of finishing a meal. [facility] capecitabin e 500 mg tablet 3-0 2-02 00:00: 00 Yes [id number] 1500mg Take 3 tablets by mouth 2 (two) times daily. Take 3 tablets in the morning and 3 tablets in the evening for 14 days. Then 7 days off . Take within 30 minutes of finishing a meal. [facility] capecitabin e 500 mg tablet 3-0 2-02 00:00: 00 Yes [id number] 1500mg Take 3 tablets by mouth 2 (two) times daily. Take 3 tablets in the morning and 3 tablets in the evening for 14 days. Then 7 days off . Take within 30 minutes of finishing a meal. [facility] capecitabin e 500 mg tablet 3-0 2-02 00:00: 00 Yes [id number] 1500mg Take 3 tablets by mouth 2 (two) times daily. Take 3 tablets in the morning and 3 tablets in the evening for 14 days. Then 7 days off . Take within 30 minutes of finishing a meal. [facility] capecitabin e 500 mg tablet 3-0 2-02 00:00: 00 Yes [id number] 1500mg Take 3 tablets by mouth 2 (two) times daily. Take 3 tablets in the morning and 3 tablets in the evening for 14 days. Then 7 days off . Take within 30 minutes of finishing a meal. [facility] capecitabin e 500 mg tablet 3-0 2-02 00:00: 00 Yes [id number] 1500mg Take 3 tablets by mouth 2 (two) times daily. Take 3 tablets in the morning and 3 tablets in the evening for 14 days. Then 7 days off . Take within 30 minutes of finishing a meal. [facility] capecitabin e 500 mg tablet 3-0 2-02 00:00: 00 Yes [id number] 1500mg Take 3 tablets by mouth 2 (two) times daily. Take 3 tablets in the morning and 3 tablets in the evening for 14 days. Then 7 days off . Take within 30 minutes of finishing a meal. [facility] capecitabin e 500 mg tablet 3-0 2-02 00:00: 00 Yes [id number] 1500mg Take 3 tablets by mouth 2 (two) times daily. Take 3 tablets in the morning and 3 tablets in the evening for 14 days. Then 7 days off . Take within 30 minutes of finishing a meal. [facility] capecitabin e 500 mg tablet 3-0 2-02 00:00: 00 Yes [id number] 1500mg Take 3 tablets by mouth 2 (two) times daily. Take 3 tablets in the morning and 3 tablets in the evening for 14 days. Then 7 days off . Take within 30 minutes of finishing a meal. [facility] capecitabin e 500 mg tablet 3-0 2-02 00:00: 00 Yes [id number] 1500mg Take 3 tablets by mouth 2 (two) times daily. Take 3 tablets in the morning and 3 tablets in the evening for 14 days. Then 7 days off . Take within 30 minutes of finishing a meal. [facility] capecitabin e 500 mg tablet 3-0 2 00:00: 00 Yes [id number] 1500mg Take 3 tablets by mouth 2 (two) times daily. Take 3 tablets in the morning and 3 tablets in the evening for 14 days. Then 7 days off . Take within 30 minutes of finishing a meal. [facility] capecitabin e 500 mg tablet 2022-0 09-10 00:00: 00 Yes [id number] 1500mg Take 3 tablets by mouth 2 (two) times daily. Take 3 tablets in the morning and 3 tablets in the evening for 14 days. Then 7 days off . Take within 30 minutes of finishing a meal. [facility] capecitabin e 500 mg tablet 2022-0 09-10 00:00: 00 Yes [id number] 1500mg Take 3 tablets by mouth 2 (two) times daily. Take 3 tablets in the morning and 3 tablets in the evening for 14 days. Then 7 days off . Take within 30 minutes of finishing a meal. [facility] capecitabin e 500 mg tablet 2022-0 09-10 00:00: 00 Yes [id number] 1500mg Take 3 tablets by mouth 2 (two) times daily. Take 3 tablets in the morning and 3 tablets in the evening for 14 days. Then 7 days off . Take within 30 minutes of finishing a meal. [facility] capecitabin e 500 mg tablet 3-0 09-10 00:00: 00 Yes [id number] 1500mg Take 3 tablets by mouth 2 (two) times daily. Take 3 tablets in the morning and 3 tablets in the evening for 14 days. Then 7 days off . Take within 30 minutes of finishing a meal. [facility] capecitabin e 500 mg tablet 3-0 2-02 00:00: 00 Yes [id number] 1500mg Take 3 tablets by mouth 2 (two) times daily. Take 3 tablets in the morning and 3 tablets in the evening for 14 days. Then 7 days off . Take within 30 minutes of finishing a meal. [facility] capecitabin e 500 mg tablet 3-0 2-02 00:00: 00 Yes [id number] 1500mg Take 3 tablets by mouth 2 (two) times daily. Take 3 tablets in the morning and 3 tablets in the evening for 14 days. Then 7 days off . Take within 30 minutes of finishing a meal. [facility] capecitabin e 500 mg tablet 3-0 2-02 00:00: 00 Yes [id number] 1500mg Take 3 tablets by mouth 2 (two) times daily. Take 3 tablets in the morning and 3 tablets in the evening for 14 days. Then 7 days off . Take within 30 minutes of finishing a meal. [facility] capecitabin e 500 mg tablet 3-0 2-02 00:00: 00 Yes [id number] 1500mg Take 3 tablets by mouth 2 (two) times daily. Take 3 tablets in the morning and 3 tablets in the evening for 14 days. Then 7 days off . Take within 30 minutes of finishing a meal. [facility] capecitabin e 500 mg tablet 3-0 2-02 00:00: 00 Yes [id number] 1500mg Take 3 tablets by mouth 2 (two) times daily. Take 3 tablets in the morning and 3 tablets in the evening for 14 days. Then 7 days off . Take within 30 minutes of finishing a meal. [facility] capecitabin e 500 mg tablet 3-0 2-02 00:00: 00 Yes [id number] 1500mg Take 3 tablets by mouth 2 (two) times daily. Take 3 tablets in the morning and 3 tablets in the evening for 14 days. Then 7 days off . Take within 30 minutes of finishing a meal. [facility] capecitabin e 500 mg tablet 3-0 2-02 00:00: 00 Yes [id number] 1500mg Take 3 tablets by mouth 2 (two) times daily. Take 3 tablets in the morning and 3 tablets in the evening for 14 days. Then 7 days off . Take within 30 minutes of finishing a meal. [facility] capecitabin e 500 mg tablet 3-0 2-02 00:00: 00 Yes [id number] 1500mg Take 3 tablets by mouth 2 (two) times daily. Take 3 tablets in the morning and 3 tablets in the evening for 14 days. Then 7 days off . Take within 30 minutes of finishing a meal. [facility] capecitabin e 500 mg tablet 2022-0 2-02 00:00: 00 Yes [id number] 1500mg Take 3 tablets by mouth 2 (two) times daily. Take 3 tablets in the morning and 3 tablets in the evening for 14 days. Then 7 days off . Take within 30 minutes of finishing a meal. [facility] capecitabin e 500 mg tablet 3-0 2-02 00:00: 00 Yes [id number] 1500mg Take 3 tablets by mouth 2 (two) times daily. Take 3 tablets in the morning and 3 tablets in the evening for 14 days. Then 7 days off . Take within 30 minutes of finishing a meal. [facility] capecitabin e 500 mg tablet 3-0 2- 00:00: 00 Yes [id number] 1500mg Take 3 tablets by mouth 2 (two) times daily. Take 3 tablets in the morning and 3 tablets in the evening for 14 days. Then 7 days off . Take within 30 minutes of finishing a meal. [facility] capecitabin e 500 mg tablet 3-0 2-02 00:00: 00 Yes [id number] 1500mg Take 3 tablets by mouth 2 (two) times daily. Take 3 tablets in the morning and 3 tablets in the evening for 14 days. Then 7 days off . Take within 30 minutes of finishing a meal. [facility] capecitabin e 500 mg tablet 3-0 2-02 00:00: 00 Yes [id number] 1500mg Take 3 tablets by mouth 2 (two) times daily. Take 3 tablets in the morning and 3 tablets in the evening for 14 days. Then 7 days off . Take within 30 minutes of finishing a meal. [facility] capecitabin e 500 mg tablet 3-0 2-02 00:00: 00 Yes [id number] 1500mg Take 3 tablets by mouth 2 (two) times daily. Take 3 tablets in the morning and 3 tablets in the evening for 14 days. Then 7 days off . Take within 30 minutes of finishing a meal. [facility] capecitabin e 500 mg tablet 3-0 2-02 00:00: 00 Yes [id number] 1500mg Take 3 tablets by mouth 2 (two) times daily. Take 3 tablets in the morning and 3 tablets in the evening for 14 days. Then 7 days off . Take within 30 minutes of finishing a meal. [facility] capecitabin e 500 mg tablet 2023-0 2-02 00:00: 00 Yes [id number] 1500mg Take 3 tablets by mouth 2 (two) times daily. Take 3 tablets in the morning and 3 tablets in the evening for 14 days. Then 7 days off . Take within 30 minutes of finishing a meal. [facility] capecitabin e 500 mg tablet 3-0 2-02 00:00: 00 Yes [id number] 1500mg Take 3 tablets by mouth 2 (two) times daily. Take 3 tablets in the morning and 3 tablets in the evening for 14 days. Then 7 days off . Take within 30 minutes of finishing a meal. [facility] capecitabin e 500 mg tablet 3-0 2-02 00:00: 00 Yes [id number] 1500mg Take 3 tablets by mouth 2 (two) times daily. Take 3 tablets in the morning and 3 tablets in the evening for 14 days. Then 7 days off . Take within 30 minutes of finishing a meal. [facility] capecitabin e 500 mg tablet 3-0 2-02 00:00: 00 Yes [id number] 1500mg Take 3 tablets by mouth 2 (two) times daily. Take 3 tablets in the morning and 3 tablets in the evening for 14 days. Then 7 days off . Take within 30 minutes of finishing a meal. [facility] capecitabin e 500 mg tablet 3-0 2-02 00:00: 00 Yes [id number] 1500mg Take 3 tablets by mouth 2 (two) times daily. Take 3 tablets in the morning and 3 tablets in the evening for 14 days. Then 7 days off . Take within 30 minutes of finishing a meal. [facility] capecitabin e 500 mg tablet 2023-0 2-02 00:00: 00 Yes [id number] 1500mg Take 3 tablets by mouth 2 (two) times daily. Take 3 tablets in the morning and 3 tablets in the evening for 14 days. Then 7 days off . Take within 30 minutes of finishing a meal. [facility] capecitabin e 500 mg tablet 3-0 2- 00:00: 00 Yes [id number] 1500mg Take 3 tablets by mouth 2 (two) times daily. Take 3 tablets in the morning and 3 tablets in the evening for 14 days. Then 7 days off . Take within 30 minutes of finishing a meal. [facility] capecitabin e 500 mg tablet 3-0 2- 00:00: 00 Yes [id number] 1500mg Take 3 tablets by mouth 2 (two) times daily. Take 3 tablets in the morning and 3 tablets in the evening for 14 days. Then 7 days off . Take within 30 minutes of finishing a meal. [facility] capecitabin e 500 mg tablet 3-0 2- 00:00: 00 Yes [id number] 1500mg Take 3 tablets by mouth 2 (two) times daily. Take 3 tablets in the morning and 3 tablets in the evening for 14 days. Then 7 days off . Take within 30 minutes of finishing a meal. [facility] capecit[facility] e 500 mg tablet 3-0 2-02 00:00: 00 Yes [id number] 1500mg Take 3 tablets by mouth 2 (two) times daily. Take 3 tablets in the morning and 3 tablets in the evening for 14 days. Then 7 days off . Take within 30 minutes of finishing a meal. [facility] capecit[facility] e 500 mg tablet 3-0 2-02 00:00: 00 Yes [id number] 1500mg Take 3 tablets by mouth 2 (two) times daily. Take 3 tablets in the morning and 3 tablets in the evening for 14 days. Then 7 days off . Take within 30 minutes of finishing a meal. [facility]pecit[facility] 500 mg tablet 3-0 2-02 00:00: 00 Yes [id number] 1500mg Take 3 tablets by mouth 2 (two) times daily. Take 3 tablets in the morning and 3 tablets in the evening for 14 days. Then 7 days off . Take within 30 minutes of finishing a meal. [facility]pecit[facility] 500 mg tablet 3-0 2- 00:00: 00 Yes [id number] 1500mg Take 3 tablets by mouth 2 (two) times daily. Take 3 tablets in the morning and 3 tablets in the evening for 14 days. Then 7 days off . Take within 30 minutes of finishing a meal. [facility]pecit[facility] 500 mg tablet 3-0 2- 00:00: 00 Yes [id number] 1500mg Take 3 tablets by mouth 2 (two) times daily. Take 3 tablets in the morning and 3 tablets in the evening for 14 days. Then 7 days off . Take within 30 minutes of finishing a meal. [facility] capecit[facility] e 500 mg tablet 3-0 - 00:00: 00 Yes [id number] 1500mg Take 3 tablets by mouth 2 (two) times daily. Take 3 tablets in the morning and 3 tablets in the evening for 14 days. Then 7 days off . Take within 30 minutes of finishing a meal. [facility] capecit[facility] 500 mg tablet 3-0 - 00:00: 00 Yes [id number] 1500mg Take 3 tablets by mouth 2 (two) times daily. Take 3 tablets in the morning and 3 tablets in the evening for 14 days. Then 7 days off . Take within 30 minutes of finishing a meal. [facility]pecit[facility] 500 mg tablet 3-0 2- 00:00: 00 Yes [id number] 1500mg Take 3 tablets by mouth 2 (two) times daily. Take 3 tablets in the morning and 3 tablets in the evening for 14 days. Then 7 days off . Take within 30 minutes of finishing a meal. [facility]pecit[facility] 500 mg tablet 3-0 202 00:00: 00 Yes [id number] 1500mg Take 3 tablets by mouth 2 (two) times daily. Take 3 tablets in the morning and 3 tablets in the evening for 14 days. Then 7 days off . Take within 30 minutes of finishing a meal. [facility] capecit[facility] 500 mg tablet 3-0 2-02 00:00: 00 Yes [id number] 1500mg Take 3 tablets by mouth 2 (two) times daily. Take 3 tablets in the morning and 3 tablets in the evening for 14 days. Then 7 days off . Take within 30 minutes of finishing a meal. [facility] capecit[facility] 500 mg tablet 3-0 2-02 00:00: 00 Yes [id number] 1500mg Take 3 tablets by mouth 2 (two) times daily. Take 3 tablets in the morning and 3 tablets in the evening for 14 days. Then 7 days off . Take within 30 minutes of finishing a meal. [facility] capecit[facility] e 500 mg tablet 3-0 2-02 00:00: 00 Yes [id number] 1500mg Take 3 tablets by mouth 2 (two) times daily. Take 3 tablets in the morning and 3 tablets in the evening for 14 days. Then 7 days off . Take within 30 minutes of finishing a meal. [facility] capecit[facility] 500 mg tablet 3-0 2-02 00:00: 00 Yes [id number] 1500mg Take 3 tablets by mouth 2 (two) times daily. Take 3 tablets in the morning and 3 tablets in the evening for 14 days. Then 7 days off . Take within 30 minutes of finishing a meal. [facility] capecit[facility] 500 mg tablet 3-0 2-02 00:00: 00 Yes [id number] 1500mg Take 3 tablets by mouth 2 (two) times daily. Take 3 tablets in the morning and 3 tablets in the evening for 14 days. Then 7 days off . Take within 30 minutes of finishing a meal. [facility] capecit[facility] 500 mg tablet 3-0 2-02 00:00: 00 Yes [id number] 1500mg Take 3 tablets by mouth 2 (two) times daily. Take 3 tablets in the morning and 3 tablets in the evening for 14 days. Then 7 days off . Take within 30 minutes of finishing a meal. [facility] capecit[facility] 500 mg tablet 3-0 2-02 00:00: 00 Yes [id number] 1500mg Take 3 tablets by mouth 2 (two) times daily. Take 3 tablets in the morning and 3 tablets in the evening for 14 days. Then 7 days off . Take within 30 minutes of finishing a meal. [facility]pecit[facility] 500 mg tablet 3-0 2-02 00:00: 00 Yes [id number] 1500mg Take 3 tablets by mouth 2 (two) times daily. Take 3 tablets in the morning and 3 tablets in the evening for 14 days. Then 7 days off . Take within 30 minutes of finishing a meal. [facility] capecit[facility] 500 mg tablet 3-0 09-10 00:00: 00 Yes [id number] 1500mg Take 3 tablets by mouth 2 (two) times daily. Take 3 tablets in the morning and 3 tablets in the evening for 14 days. Then 7 days off . Take within 30 minutes of finishing a meal. [facility] capecitabin e 500 mg tablet 2022-0 09-10 00:00: 00 Yes [id number] 1500mg Take 3 tablets by mouth 2 (two) times daily. Take 3 tablets in the morning and 3 tablets in the evening for 14 days. Then 7 days off . Take within 30 minutes of finishing a meal. [facility] capecitabin e 500 mg tablet 2022-0 09-10 00:00: 00 Yes [id number] 1500mg Take 3 tablets by mouth 2 (two) times daily. Take 3 tablets in the morning and 3 tablets in the evening for 14 days. Then 7 days off . Take within 30 minutes of finishing a meal. [facility] capecit[facility] 500 mg tablet 3-0 09-10 00:00: 00 Yes [id number] 1500mg Take 3 tablets by mouth 2 (two) times daily. Take 3 tablets in the morning and 3 tablets in the evening for 14 days. Then 7 days off . Take within 30 minutes of finishing a meal. [facility]pecit[facility] 500 mg tablet 3-0 09-10 00:00: 00 Yes [id number] 1500mg Take 3 tablets by mouth 2 (two) times daily. Take 3 tablets in the morning and 3 tablets in the evening for 14 days. Then 7 days off . Take within 30 minutes of finishing a meal. [facility]pecit[facility] 500 mg tablet 3-0 - 00:00: 00 Yes [id number] 1500mg Take 3 tablets by mouth 2 (two) times daily. Take 3 tablets in the morning and 3 tablets in the evening for 14 days. Then 7 days off . Take within 30 minutes of finishing a meal. [facility]pecit[facility] 500 mg tablet 3-0 2-02 00:00: 00 Yes [id number] 1500mg Take 3 tablets by mouth 2 (two) times daily. Take 3 tablets in the morning and 3 tablets in the evening for 14 days. Then 7 days off . Take within 30 minutes of finishing a meal. [facility] capecit[facility] e 500 mg tablet 3-0 2-02 00:00: 00 Yes [id number] 1500mg Take 3 tablets by mouth 2 (two) times daily. Take 3 tablets in the morning and 3 tablets in the evening for 14 days. Then 7 days off . Take within 30 minutes of finishing a meal. [facility] 500 mg tablet 3-0 2-02 00:00: 00 Yes [id number] 1500mg Take 3 tablets by mouth 2 (two) times daily. Take 3 tablets in the morning and 3 tablets in the evening for 14 days. Then 7 days off . Take within 30 minutes of finishing a meal. [facility] 500 mg tablet 3-0 2-02 00:00: 00 Yes [id number] 1500mg Take 3 tablets by mouth 2 (two) times daily. Take 3 tablets in the morning and 3 tablets in the evening for 14 days. Then 7 days off . Take within 30 minutes of finishing a meal. [facility]pec[facility] 500 mg tablet 3-0 2-02 00:00: 00 Yes [id number] 1500mg Take 3 tablets by mouth 2 (two) times daily. Take 3 tablets in the morning and 3 tablets in the evening for 14 days. Then 7 days off . Take within 30 minutes of finishing a meal. [facility]pec[facility] 500 mg tablet 3-0 2-02 00:00: 00 Yes [id number] 1500mg Take 3 tablets by mouth 2 (two) times daily. Take 3 tablets in the morning and 3 tablets in the evening for 14 days. Then 7 days off . Take within 30 minutes of finishing a meal. [facility]pecit[facility] 500 mg tablet 2023-0 2-02 00:00: 00 Yes [id number] 1500mg Take 3 tablets by mouth 2 (two) times daily. Take 3 tablets in the morning and 3 tablets in the evening for 14 days. Then 7 days off . Take within 30 minutes of finishing a meal. [facility]pec[facility] 500 mg tablet 2022-0 2-02 00:00: 00 Yes [id number] 1500mg Take 3 tablets by mouth 2 (two) times daily. Take 3 tablets in the morning and 3 tablets in the evening for 14 days. Then 7 days off . Take within 30 minutes of finishing a meal. [facility] 500 mg tablet 3-0 2- 00:00: 00 Yes [id number] 1500mg Take 3 tablets by mouth 2 (two) times daily. Take 3 tablets in the morning and 3 tablets in the evening for 14 days. Then 7 days off . Take within 30 minutes of finishing a meal. [facility] 500 mg tablet 3-0 2- 00:00: 00 Yes [id number] 1500mg Take 3 tablets by mouth 2 (two) times daily. Take 3 tablets in the morning and 3 tablets in the evening for 14 days. Then 7 days off . Take within 30 minutes of finishing a meal. [facility] 500 mg tablet 3-0 2-02 00:00: 00 Yes [id number] 1500mg Take 3 tablets by mouth 2 (two) times daily. Take 3 tablets in the morning and 3 tablets in the evening for 14 days. Then 7 days off . Take within 30 minutes of finishing a meal. [facility] 500 mg tablet 3-0 2-02 00:00: 00 Yes [id number] 1500mg Take 3 tablets by mouth 2 (two) times daily. Take 3 tablets in the morning and 3 tablets in the evening for 14 days. Then 7 days off . Take within 30 minutes of finishing a meal. [facility] 500 mg tablet 3-0 2-02 00:00: 00 Yes [id number] 1500mg Take 3 tablets by mouth 2 (two) times daily. Take 3 tablets in the morning and 3 tablets in the evening for 14 days. Then 7 days off . Take within 30 minutes of finishing a meal. [facility] 500 mg tablet 0 2 00:00: 00 Yes [id number] 1500mg Take 3 tablets by mouth 2 (two) times daily. Take 3 tablets in the morning and 3 tablets in the evening for 14 days. Then 7 days off . Take within 30 minutes of finishing a meal. [facility] 500 mg tablet 2022-0 09-10 00:00: 00 Yes [id number] 1500mg Take 3 tablets by mouth 2 (two) times daily. Take 3 tablets in the morning and 3 tablets in the evening for 14 days. Then 7 days off . Take within 30 minutes of finishing a meal. [facility] 500 mg tablet 09-10 00:00: 00 Yes [id number] 1500mg Take 3 tablets by mouth 2 (two) times daily. Take 3 tablets in the morning and 3 tablets in the evening for 14 days. Then 7 days off . Take within 30 minutes of finishing a meal. [facility] 500 mg tablet 09-10 00:00: 00 Yes [id number] 1500mg Take 3 tablets by mouth 2 (two) times daily. Take 3 tablets in the morning and 3 tablets in the evening for 14 days. Then 7 days off . Take within 30 minutes of finishing a meal. [facility] 500 mg tablet 09-10 00:00: 00 04-02 00:00 :00 No [id number] 1500mg Take 3 tablets by mouth 2 (two) times daily. Take 3 tablets in the morning and 3 tablets in the evening for 14 days. Then 7 days off . Take within 30 minutes of finishing a meal. [facility] ciprofloxac in HCl (CIPRO) 500 mg tablet 09-09 00:00: 00 09-17 05:59 :00 No [id number] 500mg Take 1 tablet by mouth every 12 (twelve) hours for 7 days. [facility] ciprofloxac in HCl (CIPRO) 500 mg tablet 2 00:00: 00 09-17 05:59 :00 No [id number] 500mg Take 1 tablet by mouth every 12 (twelve) hours for 7 days. [facility] ciprofloxac in HCl (CIPRO) 500 mg tablet 09-09 00:00: 00 09-17 05:59 :00 No [id number] 500mg Take 1 tablet by mouth every 12 (twelve) hours for 7 days. [facility] ciprofloxac in HCl (CIPRO) 500 mg tablet 09-09 00:00: 00 09-17 05:59 :00 No [id number] 500mg Take 1 tablet by mouth every 12 (twelve) hours for 7 days. [facility] ciprofloxac in HCl (CIPRO) 500 mg tablet 09-09 00:00: 00 09-17 05:59 :00 No [id number] 500mg Take 1 tablet by mouth every 12 (twelve) hours for 7 days. [facility] bevacizumab -bvzr (ZIRABEV) 500 mg in NaCl 0.9% (NS) 100 mL infusion 08-20 16:45: 00 08-20 18:10 :00 No [id number] 04 7.5mg/k g 500 mg (rounded from 536.25 mg = 7.5 mg/kg ?71.5 kg Treatment plan Recorded weight), IV Infusion, ONCE, Administer over 30 Minutes, On Mireya 08/20/22 at 1045, For 1 dose
Sh ould be diluted in 0.9% Sodium Chloride, not D5W. May store diluted solution in refrigerat or for up to 8 hours.&nbs p;Infuse 1st infusion over 90 minutes; 2nd infusion for 60 minutes; subsequent infusions over 30 minutes if well tolerated.
[facility] NaCl 0.9% (NS) IV infusion 500 mL 08-20 16:45: 00 08-20 17:10 :00 No [id number] 500mL at 1,000 mL/hr, IV Infusion, ONCE, 1 dose, On Mireya 08/20/22 at 1045, Routine [facility] heparin lock flush (HEPARIN LOCKFLUSH(P ORCINE)(PF) ) 100 unit/mL injection 500 Units 08-20 16:44: 51 08-21 16:43 :51 No [id number] 04 500U 500 Units, IV Push, PRN, Starting on Mireya 08/20/22 at 1044, Until Wed08/21/22 at 1043, Routine [facility] gabapentin 300 mg capsule 08-20 00:00: 00 Yes [id number] 300mg Take 1 capsule by mouth at bedtime. [facility] gabapentin 300 mg capsule 08-20 00:00: 00 Yes [id number] 300mg Take 1 capsule by mouth at bedtime. [facility] capecitabin e 500 mg tablet 08-20 00:00: 00 Yes [id number] 04 1500mg Take 3 tablets by mouth 2 (two) times daily. Take 3 tablets in the morning and 3 tablets in the evening for 14 days. Then 7 days off . Take within 30 minutes of finishing a meal. [facility] gabapentin 300 mg capsule 08-20 00:00: 00 Yes [id number] 300mg Take 1 capsule by mouth at bedtime. [facility] capecitabin e 500 mg tablet 08-20 00:00: 00 Yes [id number] 04 1500mg Take 3 tablets by mouth 2 (two) times daily. Take 3 tablets in the morning and 3 tablets in the evening for 14 days. Then 7 days off . Take within 30 minutes of finishing a meal. [facility] gabapentin 300 mg capsule 08-20 00:00: 00 Yes [id number] 300mg Take 1 capsule by mouth at bedtime. [facility] capecitabin e 500 mg tablet 08-20 00:00: 00 Yes [id number] 04 1500mg Take 3 tablets by mouth 2 (two) times daily. Take 3 tablets in the morning and 3 tablets in the evening for 14 days. Then 7 days off . Take within 30 minutes of finishing a meal. [facility] gabapentin 300 mg capsule 08-20 00:00: 00 Yes [id number] 300mg Take 1 capsule by mouth at bedtime. [facility] capecitabin [facility] 500 mg tablet 3-0 -12 00:00: 00 Yes [id number] 04 1500mg Take 3 tablets by mouth 2 (two) times daily. Take 3 tablets in the morning and 3 tablets in the evening for 14 days. Then 7 days off . Take within 30 minutes of finishing a meal. [facility] gabapentin 300 mg capsule 3-0 -12 00:00: 00 Yes [id number] 300mg Take 1 capsule by mouth at bedtime. [facility] capecitabin [facility] 500 mg tablet 3-0 12 00:00: 00 Yes [id number] 04 1500mg Take 3 tablets by mouth 2 (two) times daily. Take 3 tablets in the morning and 3 tablets in the evening for 14 days. Then 7 days off . Take within 30 minutes of finishing a meal. [facility] gabapentin 300 mg capsule 3-0 12 00:00: 00 Yes [id number] 300mg Take 1 capsule by mouth at bedtime. [facility] capecitabin e 500 mg tablet 2022-0 12 00:00: 00 Yes [id number] 04 1500mg Take 3 tablets by mouth 2 (two) times daily. Take 3 tablets in the morning and 3 tablets in the evening for 14 days. Then 7 days off . Take within 30 minutes of finishing a meal. [facility] gabapentin 300 mg capsule 3-0 12 00:00: 00 Yes [id number] 300mg Take 1 capsule by mouth at bedtime. [facility] capecitabin e 500 mg tablet 3-0 12 00:00: 00 Yes [id number] 04 1500mg Take 3 tablets by mouth 2 (two) times daily. Take 3 tablets in the morning and 3 tablets in the evening for 14 days. Then 7 days off . Take within 30 minutes of finishing a meal. [facility] gabapentin 300 mg capsule 3-0 -12 00:00: 00 Yes [id number] 300mg Take 1 capsule by mouth at bedtime. [facility] capecitabin e 500 mg tablet 3-0 -12 00:00: 00 Yes [id number] 04 1500mg Take 3 tablets by mouth 2 (two) times daily. Take 3 tablets in the morning and 3 tablets in the evening for 14 days. Then 7 days off . Take within 30 minutes of finishing a meal. [facility] gabapentin 300 mg capsule 3-0 -12 00:00: 00 Yes [id number] 300mg Take 1 capsule by mouth at bedtime. [facility] capecitabin e 500 mg tablet 3-0 -12 00:00: 00 Yes [id number] 04 1500mg Take 3 tablets by mouth 2 (two) times daily. Take 3 tablets in the morning and 3 tablets in the evening for 14 days. Then 7 days off . Take within 30 minutes of finishing a meal. [facility] gabapentin 300 mg capsule 3-0 -12 00:00: 00 Yes [id number] 300mg Take 1 capsule by mouth at bedtime. [facility] capecitabin e 500 mg tablet 3-0 -12 00:00: 00 Yes [id number] 04 1500mg Take 3 tablets by mouth 2 (two) times daily. Take 3 tablets in the morning and 3 tablets in the evening for 14 days. Then 7 days off . Take within 30 minutes of finishing a meal. [facility] gabapentin 300 mg capsule 3-0 -12 00:00: 00 Yes [id number] 300mg Take 1 capsule by mouth at bedtime. [facility] capecitabin e 500 mg tablet 3-0 -12 00:00: 00 Yes [id number] 04 1500mg Take 3 tablets by mouth 2 (two) times daily. Take 3 tablets in the morning and 3 tablets in the evening for 14 days. Then 7 days off . Take within 30 minutes of finishing a meal. [facility] gabapentin 300 mg capsule 3-0 -12 00:00: 00 Yes [id number] 300mg Take 1 capsule by mouth at bedtime. [facility] capecitabin e 500 mg tablet 3-0 -12 00:00: 00 Yes [id number] 04 1500mg Take 3 tablets by mouth 2 (two) times daily. Take 3 tablets in the morning and 3 tablets in the evening for 14 days. Then 7 days off . Take within 30 minutes of finishing a meal. [facility] gabapentin 300 mg capsule 3-0 -12 00:00: 00 Yes [id number] 300mg Take 1 capsule by mouth at bedtime. [facility] capecitabin e 500 mg tablet 2022-0 12 00:00: 00 Yes [id number] 04 1500mg Take 3 tablets by mouth 2 (two) times daily. Take 3 tablets in the morning and 3 tablets in the evening for 14 days. Then 7 days off . Take within 30 minutes of finishing a meal. [facility] gabapentin 300 mg capsule 3-0 -12 00:00: 00 Yes [id number] 300mg Take 1 capsule by mouth at bedtime. [facility] capecitabin e 500 mg tablet 2022-0 12 00:00: 00 Yes [id number] 04 1500mg Take 3 tablets by mouth 2 (two) times daily. Take 3 tablets in the morning and 3 tablets in the evening for 14 days. Then 7 days off . Take within 30 minutes of finishing a meal. [facility] gabapentin 300 mg capsule 3-0 12 00:00: 00 Yes [id number] 300mg Take 1 capsule by mouth at bedtime. [facility] capecitabin e 500 mg tablet 2022-0 08-20 00:00: 00 Yes [id number] 04 1500mg Take 3 tablets by mouth 2 (two) times daily. Take 3 tablets in the morning and 3 tablets in the evening for 14 days. Then 7 days off . Take within 30 minutes of finishing a meal. [facility] gabapentin 300 mg capsule 3-0 -12 00:00: 00 Yes [id number] 300mg Take 1 capsule by mouth at bedtime. [facility] capecitabin e 500 mg tablet 3-0 12 00:00: 00 Yes [id number] 04 1500mg Take 3 tablets by mouth 2 (two) times daily. Take 3 tablets in the morning and 3 tablets in the evening for 14 days. Then 7 days off . Take within 30 minutes of finishing a meal. [facility] gabapentin 300 mg capsule 3-0 -12 00:00: 00 Yes [id number] 300mg Take 1 capsule by mouth at bedtime. [facility] capecitabin e 500 mg tablet 3-0 -12 00:00: 00 Yes [id number] 04 1500mg Take 3 tablets by mouth 2 (two) times daily. Take 3 tablets in the morning and 3 tablets in the evening for 14 days. Then 7 days off . Take within 30 minutes of finishing a meal. [facility] gabapentin 300 mg capsule 3-0 -12 00:00: 00 Yes [id number] 300mg Take 1 capsule by mouth at bedtime. [facility] capecitabin e 500 mg tablet 3-0 -12 00:00: 00 Yes [id number] 04 1500mg Take 3 tablets by mouth 2 (two) times daily. Take 3 tablets in the morning and 3 tablets in the evening for 14 days. Then 7 days off . Take within 30 minutes of finishing a meal. [facility] gabapentin 300 mg capsule 3-0 -12 00:00: 00 Yes [id number] 300mg Take 1 capsule by mouth at bedtime. [facility] capecitabin e 500 mg tablet 3-0 12 00:00: 00 Yes [id number] 04 1500mg Take 3 tablets by mouth 2 (two) times daily. Take 3 tablets in the morning and 3 tablets in the evening for 14 days. Then 7 days off . Take within 30 minutes of finishing a meal. [facility] gabapentin 300 mg capsule 3-0 12 00:00: 00 Yes [id number] 300mg Take 1 capsule by mouth at bedtime. [facility] capecitabin e 500 mg tablet 3-0 12 00:00: 00 Yes [id number] 04 1500mg Take 3 tablets by mouth 2 (two) times daily. Take 3 tablets in the morning and 3 tablets in the evening for 14 days. Then 7 days off . Take within 30 minutes of finishing a meal. [facility] gabapentin 300 mg capsule 3-0 -12 00:00: 00 Yes [id number] 300mg Take 1 capsule by mouth at bedtime. [facility] capecitabin e 500 mg tablet 3-0 -12 00:00: 00 Yes [id number] 04 1500mg Take 3 tablets by mouth 2 (two) times daily. Take 3 tablets in the morning and 3 tablets in the evening for 14 days. Then 7 days off . Take within 30 minutes of finishing a meal. [facility] gabapentin 300 mg capsule 2022-0 -12 00:00: 00 Yes [id number] 300mg Take 1 capsule by mouth at bedtime. [facility] capecitabin e 500 mg tablet 2022-0 12 00:00: 00 Yes [id number] 04 1500mg Take 3 tablets by mouth 2 (two) times daily. Take 3 tablets in the morning and 3 tablets in the evening for 14 days. Then 7 days off . Take within 30 minutes of finishing a meal. [facility] gabapentin 300 mg capsule 2022-0 -12 00:00: 00 Yes [id number] 300mg Take 1 capsule by mouth at bedtime. [facility] capecitabin e 500 mg tablet 2022-0 08-20 00:00: 00 Yes [id number] 04 1500mg Take 3 tablets by mouth 2 (two) times daily. Take 3 tablets in the morning and 3 tablets in the evening for 14 days. Then 7 days off . Take within 30 minutes of finishing a meal. [facility] gabapentin 300 mg capsule 2022-0 12 00:00: 00 Yes [id number] 300mg Take 1 capsule by mouth at bedtime. [facility] capecitabin e 500 mg tablet 2022-0 12 00:00: 00 Yes [id number] 04 1500mg Take 3 tablets by mouth 2 (two) times daily. Take 3 tablets in the morning and 3 tablets in the evening for 14 days. Then 7 days off . Take within 30 minutes of finishing a meal. [facility] gabapentin 300 mg capsule 3-0 -12 00:00: 00 Yes [id number] 300mg Take 1 capsule by mouth at bedtime. [facility] capecitabin e 500 mg tablet 3-0 -12 00:00: 00 Yes [id number] 04 1500mg Take 3 tablets by mouth 2 (two) times daily. Take 3 tablets in the morning and 3 tablets in the evening for 14 days. Then 7 days off . Take within 30 minutes of finishing a meal. [facility] gabapentin 300 mg capsule 3-0 -12 00:00: 00 Yes [id number] 300mg Take 1 capsule by mouth at bedtime. [facility] capecitabin e 500 mg tablet 3-0 -12 00:00: 00 Yes [id number] 04 1500mg Take 3 tablets by mouth 2 (two) times daily. Take 3 tablets in the morning and 3 tablets in the evening for 14 days. Then 7 days off . Take within 30 minutes of finishing a meal. [facility] gabapentin 300 mg capsule 3-0 -12 00:00: 00 Yes [id number] 300mg Take 1 capsule by mouth at bedtime. [facility] capecitabin e 500 mg tablet 3-0 12 00:00: 00 Yes [id number] 04 1500mg Take 3 tablets by mouth 2 (two) times daily. Take 3 tablets in the morning and 3 tablets in the evening for 14 days. Then 7 days off . Take within 30 minutes of finishing a meal. [facility] gabapentin 300 mg capsule 3-0 12 00:00: 00 Yes [id number] 300mg Take 1 capsule by mouth at bedtime. [facility] capecitabin e 500 mg tablet 3-0 12 00:00: 00 Yes [id number] 04 1500mg Take 3 tablets by mouth 2 (two) times daily. Take 3 tablets in the morning and 3 tablets in the evening for 14 days. Then 7 days off . Take within 30 minutes of finishing a meal. [facility] capecitabin e 500 mg tablet 3-0 12 00:00: 00 Yes [id number] 04 1500mg Take 3 tablets by mouth 2 (two) times daily. Take 3 tablets in the morning and 3 tablets in the evening for 14 days. Then 7 days off . Take within 30 minutes of finishing a meal. [facility] capecitabin e 500 mg tablet 3-0 -12 00:00: 00 Yes [id number] 04 1500mg Take 3 tablets by mouth 2 (two) times daily. Take 3 tablets in the morning and 3 tablets in the evening for 14 days. Then 7 days off . Take within 30 minutes of finishing a meal. [facility] capecitabin e 500 mg tablet 3-0 -12 00:00: 00 Yes [id number] 04 1500mg Take 3 tablets by mouth 2 (two) times daily. Take 3 tablets in the morning and 3 tablets in the evening for 14 days. Then 7 days off . Take within 30 minutes of finishing a meal. [facility] capecitabin e 500 mg tablet 3-0 12 00:00: 00 Yes [id number] 04 1500mg Take 3 tablets by mouth 2 (two) times daily. Take 3 tablets in the morning and 3 tablets in the evening for 14 days. Then 7 days off . Take within 30 minutes of finishing a meal. [facility] capecitabin e 500 mg tablet 3-0 12 00:00: 00 Yes [id number] 04 1500mg Take 3 tablets by mouth 2 (two) times daily. Take 3 tablets in the morning and 3 tablets in the evening for 14 days. Then 7 days off . Take within 30 minutes of finishing a meal. [facility] capecitabin e 500 mg tablet 3-0 12 00:00: 00 Yes [id number] 04 1500mg Take 3 tablets by mouth 2 (two) times daily. Take 3 tablets in the morning and 3 tablets in the evening for 14 days. Then 7 days off . Take within 30 minutes of finishing a meal. [facility] capecitabin e 500 mg tablet 3-0 12 00:00: 00 Yes [id number] 04 1500mg Take 3 tablets by mouth 2 (two) times daily. Take 3 tablets in the morning and 3 tablets in the evening for 14 days. Then 7 days off . Take within 30 minutes of finishing a meal. [facility] capecitabin e 500 mg tablet 3-0 -12 00:00: 00 Yes [id number] 04 1500mg Take 3 tablets by mouth 2 (two) times daily. Take 3 tablets in the morning and 3 tablets in the evening for 14 days. Then 7 days off . Take within 30 minutes of finishing a meal. [facility] capecitabin e 500 mg tablet 3-0 1-12 00:00: 00 Yes [id number] 04 1500mg Take 3 tablets by mouth 2 (two) times daily. Take 3 tablets in the morning and 3 tablets in the evening for 14 days. Then 7 days off . Take within 30 minutes of finishing a meal. [facility] capecitabin e 500 mg tablet 3-0 1-12 00:00: 00 Yes [id number] 04 1500mg Take 3 tablets by mouth 2 (two) times daily. Take 3 tablets in the morning and 3 tablets in the evening for 14 days. Then 7 days off . Take within 30 minutes of finishing a meal. [facility] capecitabin e 500 mg tablet 3-0 -12 00:00: 00 Yes [id number] 04 1500mg Take 3 tablets by mouth 2 (two) times daily. Take 3 tablets in the morning and 3 tablets in the evening for 14 days. Then 7 days off . Take within 30 minutes of finishing a meal. [facility] capecitabin e 500 mg tablet 3-0 -12 00:00: 00 Yes [id number] 04 1500mg Take 3 tablets by mouth 2 (two) times daily. Take 3 tablets in the morning and 3 tablets in the evening for 14 days. Then 7 days off . Take within 30 minutes of finishing a meal. [facility] capecitabin e 500 mg tablet 3-0 1-12 00:00: 00 Yes [id number] 04 1500mg Take 3 tablets by mouth 2 (two) times daily. Take 3 tablets in the morning and 3 tablets in the evening for 14 days. Then 7 days off . Take within 30 minutes of finishing a meal. [facility] capecitabin e 500 mg tablet 3-0 -12 00:00: 00 Yes [id number] 04 1500mg Take 3 tablets by mouth 2 (two) times daily. Take 3 tablets in the morning and 3 tablets in the evening for 14 days. Then 7 days off . Take within 30 minutes of finishing a meal. [facility] capecitabin e 500 mg tablet 3-0 1-12 00:00: 00 Yes [id number] 04 1500mg Take 3 tablets by mouth 2 (two) times daily. Take 3 tablets in the morning and 3 tablets in the evening for 14 days. Then 7 days off . Take within 30 minutes of finishing a meal. [facility] capecitabin e 500 mg tablet 3-0 -12 00:00: 00 Yes [id number] 04 1500mg Take 3 tablets by mouth 2 (two) times daily. Take 3 tablets in the morning and 3 tablets in the evening for 14 days. Then 7 days off . Take within 30 minutes of finishing a meal. [facility] capecitabin e 500 mg tablet 3-0 12 00:00: 00 Yes [id number] 1500mg Take 3 tablets by mouth 2 (two) times daily. Take 3 tablets in the morning and 3 tablets in the evening for 14 days. Then 7 days off . Take within 30 minutes of finishing a meal. [facility] capecitabin e 500 mg tablet 3-0 12 00:00: 00 Yes [id number] 1500mg Take 3 tablets by mouth 2 (two) times daily. Take 3 tablets in the morning and 3 tablets in the evening for 14 days. Then 7 days off . Take within 30 minutes of finishing a meal. [facility] capecitabin e 500 mg tablet 3-0 12 00:00: 00 Yes [id number] 1500mg Take 3 tablets by mouth 2 (two) times daily. Take 3 tablets in the morning and 3 tablets in the evening for 14 days. Then 7 days off . Take within 30 minutes of finishing a meal. [facility] capecitabin e 500 mg tablet 3-0 12 00:00: 00 Yes [id number] 1500mg Take 3 tablets by mouth 2 (two) times daily. Take 3 tablets in the morning and 3 tablets in the evening for 14 days. Then 7 days off . Take within 30 minutes of finishing a meal. [facility] capecitabin e 500 mg tablet 3-0 -12 00:00: 00 Yes [id number] 1500mg Take 3 tablets by mouth 2 (two) times daily. Take 3 tablets in the morning and 3 tablets in the evening for 14 days. Then 7 days off . Take within 30 minutes of finishing a meal. [facility] capecitabin e 500 mg tablet 3-0 -12 00:00: 00 Yes [id number] 1500mg Take 3 tablets by mouth 2 (two) times daily. Take 3 tablets in the morning and 3 tablets in the evening for 14 days. Then 7 days off . Take within 30 minutes of finishing a meal. [facility] capecitabin e 500 mg tablet 3-0 -12 00:00: 00 Yes [id number] 1500mg Take 3 tablets by mouth 2 (two) times daily. Take 3 tablets in the morning and 3 tablets in the evening for 14 days. Then 7 days off . Take within 30 minutes of finishing a meal. [facility] capecitabin e 500 mg tablet 3-0 12 00:00: 00 Yes [id number] 1500mg Take 3 tablets by mouth 2 (two) times daily. Take 3 tablets in the morning and 3 tablets in the evening for 14 days. Then 7 days off . Take within 30 minutes of finishing a meal. [facility] capecitabin e 500 mg tablet 3-0 12 00:00: 00 Yes [id number] 1500mg Take 3 tablets by mouth 2 (two) times daily. Take 3 tablets in the morning and 3 tablets in the evening for 14 days. Then 7 days off . Take within 30 minutes of finishing a meal. [facility] capecitabin e 500 mg tablet 3-0 12 00:00: 00 Yes [id number] 1500mg Take 3 tablets by mouth 2 (two) times daily. Take 3 tablets in the morning and 3 tablets in the evening for 14 days. Then 7 days off . Take within 30 minutes of finishing a meal. [facility] capecitabin e 500 mg tablet 3-0 12 00:00: 00 Yes [id number] 1500mg Take 3 tablets by mouth 2 (two) times daily. Take 3 tablets in the morning and 3 tablets in the evening for 14 days. Then 7 days off . Take within 30 minutes of finishing a meal. [facility] capecitabin e 500 mg tablet 3-0 12 00:00: 00 Yes [id number] 1500mg Take 3 tablets by mouth 2 (two) times daily. Take 3 tablets in the morning and 3 tablets in the evening for 14 days. Then 7 days off . Take within 30 minutes of finishing a meal. [facility] capecitabin e 500 mg tablet 3-0 1-12 00:00: 00 Yes [id number] 1500mg Take 3 tablets by mouth 2 (two) times daily. Take 3 tablets in the morning and 3 tablets in the evening for 14 days. Then 7 days off . Take within 30 minutes of finishing a meal. [facility] capecitabin e 500 mg tablet 2023-0 1-12 00:00: 00 Yes [id number] 1500mg Take 3 tablets by mouth 2 (two) times daily. Take 3 tablets in the morning and 3 tablets in the evening for 14 days. Then 7 days off . Take within 30 minutes of finishing a meal. [facility] capecitabin e 500 mg tablet 3-0 -12 00:00: 00 Yes [id number] 1500mg Take 3 tablets by mouth 2 (two) times daily. Take 3 tablets in the morning and 3 tablets in the evening for 14 days. Then 7 days off . Take within 30 minutes of finishing a meal. [facility] capecitabin e 500 mg tablet 3-0 -12 00:00: 00 Yes [id number] 1500mg Take 3 tablets by mouth 2 (two) times daily. Take 3 tablets in the morning and 3 tablets in the evening for 14 days. Then 7 days off . Take within 30 minutes of finishing a meal. [facility] capecitabin e 500 mg tablet 3-0 -12 00:00: 00 Yes [id number] 1500mg Take 3 tablets by mouth 2 (two) times daily. Take 3 tablets in the morning and 3 tablets in the evening for 14 days. Then 7 days off . Take within 30 minutes of finishing a meal. [facility] capecitabin e 500 mg tablet 3-0 1-12 00:00: 00 Yes [id number] 1500mg Take 3 tablets by mouth 2 (two) times daily. Take 3 tablets in the morning and 3 tablets in the evening for 14 days. Then 7 days off . Take within 30 minutes of finishing a meal. [facility] capecitabin e 500 mg tablet 2023-0 1-12 00:00: 00 Yes [id number] 1500mg Take 3 tablets by mouth 2 (two) times daily. Take 3 tablets in the morning and 3 tablets in the evening for 14 days. Then 7 days off . Take within 30 minutes of finishing a meal. [facility] capecitabin e 500 mg tablet 3-0 1-12 00:00: 00 Yes [id number] 1500mg Take 3 tablets by mouth 2 (two) times daily. Take 3 tablets in the morning and 3 tablets in the evening for 14 days. Then 7 days off . Take within 30 minutes of finishing a meal. [facility] capecitabin e 500 mg tablet 3-0 -12 00:00: 00 Yes [id number] 1500mg Take 3 tablets by mouth 2 (two) times daily. Take 3 tablets in the morning and 3 tablets in the evening for 14 days. Then 7 days off . Take within 30 minutes of finishing a meal. [facility] capecitabin e 500 mg tablet 3-0 -12 00:00: 00 Yes [id number] 1500mg Take 3 tablets by mouth 2 (two) times daily. Take 3 tablets in the morning and 3 tablets in the evening for 14 days. Then 7 days off . Take within 30 minutes of finishing a meal. [facility] capecitabin e 500 mg tablet 3-0 12 00:00: 00 Yes [id number] 1500mg Take 3 tablets by mouth 2 (two) times daily. Take 3 tablets in the morning and 3 tablets in the evening for 14 days. Then 7 days off . Take within 30 minutes of finishing a meal. [facility] capecitabin e 500 mg tablet 3-0 -12 00:00: 00 Yes [id number] 1500mg Take 3 tablets by mouth 2 (two) times daily. Take 3 tablets in the morning and 3 tablets in the evening for 14 days. Then 7 days off . Take within 30 minutes of finishing a meal. [facility] capecitabin e 500 mg tablet 3-0 1-12 00:00: 00 Yes [id number] 1500mg Take 3 tablets by mouth 2 (two) times daily. Take 3 tablets in the morning and 3 tablets in the evening for 14 days. Then 7 days off . Take within 30 minutes of finishing a meal. [facility] capecitabin e 500 mg tablet 3-0 1-12 00:00: 00 Yes [id number] 1500mg Take 3 tablets by mouth 2 (two) times daily. Take 3 tablets in the morning and 3 tablets in the evening for 14 days. Then 7 days off . Take within 30 minutes of finishing a meal. [facility] capecitabin e 500 mg tablet 3-0 -12 00:00: 00 Yes [id number] 1500mg Take 3 tablets by mouth 2 (two) times daily. Take 3 tablets in the morning and 3 tablets in the evening for 14 days. Then 7 days off . Take within 30 minutes of finishing a meal. [facility] capecitabin e 500 mg tablet 3-0 12 00:00: 00 Yes [id number] 1500mg Take 3 tablets by mouth 2 (two) times daily. Take 3 tablets in the morning and 3 tablets in the evening for 14 days. Then 7 days off . Take within 30 minutes of finishing a meal. [facility] capecitabin e 500 mg tablet 3-0 12 00:00: 00 Yes [id number] 1500mg Take 3 tablets by mouth 2 (two) times daily. Take 3 tablets in the morning and 3 tablets in the evening for 14 days. Then 7 days off . Take within 30 minutes of finishing a meal. [facility] capecitabin e 500 mg tablet 3-0 12 00:00: 00 Yes [id number] 1500mg Take 3 tablets by mouth 2 (two) times daily. Take 3 tablets in the morning and 3 tablets in the evening for 14 days. Then 7 days off . Take within 30 minutes of finishing a meal. [facility] capecitabin e 500 mg tablet 3-0 12 00:00: 00 Yes [id number] 1500mg Take 3 tablets by mouth 2 (two) times daily. Take 3 tablets in the morning and 3 tablets in the evening for 14 days. Then 7 days off . Take within 30 minutes of finishing a meal. [facility] capecitabin e 500 mg tablet 3-0 -12 00:00: 00 Yes [id number] 1500mg Take 3 tablets by mouth 2 (two) times daily. Take 3 tablets in the morning and 3 tablets in the evening for 14 days. Then 7 days off . Take within 30 minutes of finishing a meal. [facility] capecitabin e 500 mg tablet 2023-0 1-12 00:00: 00 Yes [id number] 1500mg Take 3 tablets by mouth 2 (two) times daily. Take 3 tablets in the morning and 3 tablets in the evening for 14 days. Then 7 days off . Take within 30 minutes of finishing a meal. [facility] capecitabin e 500 mg tablet 2023-0 1-12 00:00: 00 Yes [id number] 1500mg Take 3 tablets by mouth 2 (two) times daily. Take 3 tablets in the morning and 3 tablets in the evening for 14 days. Then 7 days off . Take within 30 minutes of finishing a meal. [facility] capecitabin e 500 mg tablet 2023-0 -12 00:00: 00 Yes [id number] 1500mg Take 3 tablets by mouth 2 (two) times daily. Take 3 tablets in the morning and 3 tablets in the evening for 14 days. Then 7 days off . Take within 30 minutes of finishing a meal. [facility] capecitabin e 500 mg tablet 3-0 -12 00:00: 00 Yes [id number] 1500mg Take 3 tablets by mouth 2 (two) times daily. Take 3 tablets in the morning and 3 tablets in the evening for 14 days. Then 7 days off . Take within 30 minutes of finishing a meal. [facility] capecitabin e 500 mg tablet 3-0 -12 00:00: 00 Yes [id number] 1500mg Take 3 tablets by mouth 2 (two) times daily. Take 3 tablets in the morning and 3 tablets in the evening for 14 days. Then 7 days off . Take within 30 minutes of finishing a meal. [facility] capecitabin e 500 mg tablet 2023-0 1-12 00:00: 00 Yes [id number] 1500mg Take 3 tablets by mouth 2 (two) times daily. Take 3 tablets in the morning and 3 tablets in the evening for 14 days. Then 7 days off . Take within 30 minutes of finishing a meal. [facility] capecitabin e 500 mg tablet 2023-0 1-12 00:00: 00 Yes [id number] 1500mg Take 3 tablets by mouth 2 (two) times daily. Take 3 tablets in the morning and 3 tablets in the evening for 14 days. Then 7 days off . Take within 30 minutes of finishing a meal. [facility] capecitabin e 500 mg tablet 2023-0 1-12 00:00: 00 Yes [id number] 1500mg Take 3 tablets by mouth 2 (two) times daily. Take 3 tablets in the morning and 3 tablets in the evening for 14 days. Then 7 days off . Take within 30 minutes of finishing a meal. [facility] capecitabin e 500 mg tablet 3-0 -12 00:00: 00 Yes [id number] 1500mg Take 3 tablets by mouth 2 (two) times daily. Take 3 tablets in the morning and 3 tablets in the evening for 14 days. Then 7 days off . Take within 30 minutes of finishing a meal. [facility] capecitabin e 500 mg tablet 3-0 -12 00:00: 00 Yes [id number] 1500mg Take 3 tablets by mouth 2 (two) times daily. Take 3 tablets in the morning and 3 tablets in the evening for 14 days. Then 7 days off . Take within 30 minutes of finishing a meal. [facility] capecitabin e 500 mg tablet 3-0 1-12 00:00: 00 Yes [id number] 1500mg Take 3 tablets by mouth 2 (two) times daily. Take 3 tablets in the morning and 3 tablets in the evening for 14 days. Then 7 days off . Take within 30 minutes of finishing a meal. [facility] capecitabin e 500 mg tablet 3-0 112 00:00: 00 Yes [id number] 1500mg Take 3 tablets by mouth 2 (two) times daily. Take 3 tablets in the morning and 3 tablets in the evening for 14 days. Then 7 days off . Take within 30 minutes of finishing a meal. [facility] capecitabin e 500 mg tablet 2023-0 1-12 00:00: 00 Yes [id number] 1500mg Take 3 tablets by mouth 2 (two) times daily. Take 3 tablets in the morning and 3 tablets in the evening for 14 days. Then 7 days off . Take within 30 minutes of finishing a meal. [facility] capecitabin e 500 mg tablet 2023-0 1-12 00:00: 00 Yes [id number] 1500mg Take 3 tablets by mouth 2 (two) times daily. Take 3 tablets in the morning and 3 tablets in the evening for 14 days. Then 7 days off . Take within 30 minutes of finishing a meal. [facility] capecitabin e 500 mg tablet 2023-0 -12 00:00: 00 Yes [id number] 1500mg Take 3 tablets by mouth 2 (two) times daily. Take 3 tablets in the morning and 3 tablets in the evening for 14 days. Then 7 days off . Take within 30 minutes of finishing a meal. [facility] capecitabin e 500 mg tablet 3-0 -12 00:00: 00 Yes [id number] 1500mg Take 3 tablets by mouth 2 (two) times daily. Take 3 tablets in the morning and 3 tablets in the evening for 14 days. Then 7 days off . Take within 30 minutes of finishing a meal. [facility] capecitabin e 500 mg tablet 3-0 -12 00:00: 00 Yes [id number] 1500mg Take 3 tablets by mouth 2 (two) times daily. Take 3 tablets in the morning and 3 tablets in the evening for 14 days. Then 7 days off . Take within 30 minutes of finishing a meal. [facility] capecitabin e 500 mg tablet 3-0 -12 00:00: 00 Yes [id number] 1500mg Take 3 tablets by mouth 2 (two) times daily. Take 3 tablets in the morning and 3 tablets in the evening for 14 days. Then 7 days off . Take within 30 minutes of finishing a meal. [facility] capecitabin e 500 mg tablet 2023-0 1-12 00:00: 00 Yes [id number] 1500mg Take 3 tablets by mouth 2 (two) times daily. Take 3 tablets in the morning and 3 tablets in the evening for 14 days. Then 7 days off . Take within 30 minutes of finishing a meal. [facility] capecitabin e 500 mg tablet 2023-0 1-12 00:00: 00 Yes [id number] 1500mg Take 3 tablets by mouth 2 (two) times daily. Take 3 tablets in the morning and 3 tablets in the evening for 14 days. Then 7 days off . Take within 30 minutes of finishing a meal. [facility] capecitabin e 500 mg tablet 3-0 -12 00:00: 00 Yes [id number] 1500mg Take 3 tablets by mouth 2 (two) times daily. Take 3 tablets in the morning and 3 tablets in the evening for 14 days. Then 7 days off . Take within 30 minutes of finishing a meal. [facility] capecitabin e 500 mg tablet 3-0 12 00:00: 00 Yes [id number] 1500mg Take 3 tablets by mouth 2 (two) times daily. Take 3 tablets in the morning and 3 tablets in the evening for 14 days. Then 7 days off . Take within 30 minutes of finishing a meal. [facility] capecitabin e 500 mg tablet 3-0 12 00:00: 00 Yes [id number] 1500mg Take 3 tablets by mouth 2 (two) times daily. Take 3 tablets in the morning and 3 tablets in the evening for 14 days. Then 7 days off . Take within 30 minutes of finishing a meal. [facility] capecitabin e 500 mg tablet 3-0 12 00:00: 00 Yes [id number] 1500mg Take 3 tablets by mouth 2 (two) times daily. Take 3 tablets in the morning and 3 tablets in the evening for 14 days. Then 7 days off . Take within 30 minutes of finishing a meal. [facility] capecitabin e 500 mg tablet 3-0 12 00:00: 00 Yes [id number] 1500mg Take 3 tablets by mouth 2 (two) times daily. Take 3 tablets in the morning and 3 tablets in the evening for 14 days. Then 7 days off . Take within 30 minutes of finishing a meal. [facility] capecitabin e 500 mg tablet 3-0 12 00:00: 00 Yes [id number] 1500mg Take 3 tablets by mouth 2 (two) times daily. Take 3 tablets in the morning and 3 tablets in the evening for 14 days. Then 7 days off . Take within 30 minutes of finishing a meal. [facility] capecitabin e 500 mg tablet 3-0 1-12 00:00: 00 Yes [id number] 1500mg Take 3 tablets by mouth 2 (two) times daily. Take 3 tablets in the morning and 3 tablets in the evening for 14 days. Then 7 days off . Take within 30 minutes of finishing a meal. [facility] capecitabin e 500 mg tablet 2023-0 1-12 00:00: 00 Yes [id number] 1500mg Take 3 tablets by mouth 2 (two) times daily. Take 3 tablets in the morning and 3 tablets in the evening for 14 days. Then 7 days off . Take within 30 minutes of finishing a meal. [facility] capecitabin e 500 mg tablet 3-0 -12 00:00: 00 Yes [id number] 1500mg Take 3 tablets by mouth 2 (two) times daily. Take 3 tablets in the morning and 3 tablets in the evening for 14 days. Then 7 days off . Take within 30 minutes of finishing a meal. [facility] capecitabin e 500 mg tablet 3-0 12 00:00: 00 Yes [id number] 1500mg Take 3 tablets by mouth 2 (two) times daily. Take 3 tablets in the morning and 3 tablets in the evening for 14 days. Then 7 days off . Take within 30 minutes of finishing a meal. [facility] capecitabin e 500 mg tablet 3-0 -12 00:00: 00 Yes [id number] 1500mg Take 3 tablets by mouth 2 (two) times daily. Take 3 tablets in the morning and 3 tablets in the evening for 14 days. Then 7 days off . Take within 30 minutes of finishing a meal. [facility] capecitabin e 500 mg tablet 3-0 1-12 00:00: 00 Yes [id number] 1500mg Take 3 tablets by mouth 2 (two) times daily. Take 3 tablets in the morning and 3 tablets in the evening for 14 days. Then 7 days off . Take within 30 minutes of finishing a meal. [facility] capecitabin e 500 mg tablet 2023-0 1-12 00:00: 00 Yes [id number] 1500mg Take 3 tablets by mouth 2 (two) times daily. Take 3 tablets in the morning and 3 tablets in the evening for 14 days. Then 7 days off . Take within 30 minutes of finishing a meal. [facility] capecitabin e 500 mg tablet 3-0 1-12 00:00: 00 Yes [id number] 1500mg Take 3 tablets by mouth 2 (two) times daily. Take 3 tablets in the morning and 3 tablets in the evening for 14 days. Then 7 days off . Take within 30 minutes of finishing a meal. [facility] capecitabin e 500 mg tablet 3-0 -12 00:00: 00 Yes [id number] 1500mg Take 3 tablets by mouth 2 (two) times daily. Take 3 tablets in the morning and 3 tablets in the evening for 14 days. Then 7 days off . Take within 30 minutes of finishing a meal. [facility] capecitabin e 500 mg tablet 3-0 1-12 00:00: 00 Yes [id number] 1500mg Take 3 tablets by mouth 2 (two) times daily. Take 3 tablets in the morning and 3 tablets in the evening for 14 days. Then 7 days off . Take within 30 minutes of finishing a meal. [facility] capecitabin e 500 mg tablet 3-0 1-12 00:00: 00 Yes [id number] 1500mg Take 3 tablets by mouth 2 (two) times daily. Take 3 tablets in the morning and 3 tablets in the evening for 14 days. Then 7 days off . Take within 30 minutes of finishing a meal. [facility] capecitabin e 500 mg tablet 3-0 -12 00:00: 00 Yes [id number] 1500mg Take 3 tablets by mouth 2 (two) times daily. Take 3 tablets in the morning and 3 tablets in the evening for 14 days. Then 7 days off . Take within 30 minutes of finishing a meal. [facility] capecitabin e 500 mg tablet 3-0 1-12 00:00: 00 Yes [id number] 1500mg Take 3 tablets by mouth 2 (two) times daily. Take 3 tablets in the morning and 3 tablets in the evening for 14 days. Then 7 days off . Take within 30 minutes of finishing a meal. [facility] capecitabin e 500 mg tablet 3-0 112 00:00: 00 Yes [id number] 1500mg Take 3 tablets by mouth 2 (two) times daily. Take 3 tablets in the morning and 3 tablets in the evening for 14 days. Then 7 days off . Take within 30 minutes of finishing a meal. [facility] capecitabin e 500 mg tablet 3-0 1-12 00:00: 00 Yes [id number] 1500mg Take 3 tablets by mouth 2 (two) times daily. Take 3 tablets in the morning and 3 tablets in the evening for 14 days. Then 7 days off . Take within 30 minutes of finishing a meal. [facility] capecitabin e 500 mg tablet 3-0 12 00:00: 00 Yes [id number] 1500mg Take 3 tablets by mouth 2 (two) times daily. Take 3 tablets in the morning and 3 tablets in the evening for 14 days. Then 7 days off . Take within 30 minutes of finishing a meal. [facility] capecitabin e 500 mg tablet 3-0 12 00:00: 00 Yes [id number] 1500mg Take 3 tablets by mouth 2 (two) times daily. Take 3 tablets in the morning and 3 tablets in the evening for 14 days. Then 7 days off . Take within 30 minutes of finishing a meal. [facility] capecitabin e 500 mg tablet 3-0 12 00:00: 00 Yes [id number] 1500mg Take 3 tablets by mouth 2 (two) times daily. Take 3 tablets in the morning and 3 tablets in the evening for 14 days. Then 7 days off . Take within 30 minutes of finishing a meal. [facility] capecitabin e 500 mg tablet 3-0 112 00:00: 00 Yes [id number] 1500mg Take 3 tablets by mouth 2 (two) times daily. Take 3 tablets in the morning and 3 tablets in the evening for 14 days. Then 7 days off . Take within 30 minutes of finishing a meal. [facility] capecitabin e 500 mg tablet 3-0 1-12 00:00: 00 Yes [id number] 1500mg Take 3 tablets by mouth 2 (two) times daily. Take 3 tablets in the morning and 3 tablets in the evening for 14 days. Then 7 days off . Take within 30 minutes of finishing a meal. [facility] capecitabin e 500 mg tablet 3-0 -12 00:00: 00 Yes [id number] 1500mg Take 3 tablets by mouth 2 (two) times daily. Take 3 tablets in the morning and 3 tablets in the evening for 14 days. Then 7 days off . Take within 30 minutes of finishing a meal. [facility] capecitabin e 500 mg tablet 3-0 12 00:00: 00 Yes [id number] 1500mg Take 3 tablets by mouth 2 (two) times daily. Take 3 tablets in the morning and 3 tablets in the evening for 14 days. Then 7 days off . Take within 30 minutes of finishing a meal. [facility] capecitabin e 500 mg tablet 3-0 -12 00:00: 00 Yes [id number] 1500mg Take 3 tablets by mouth 2 (two) times daily. Take 3 tablets in the morning and 3 tablets in the evening for 14 days. Then 7 days off . Take within 30 minutes of finishing a meal. [facility] capecitabin e 500 mg tablet 3-0 12 00:00: 00 Yes [id number] 1500mg Take 3 tablets by mouth 2 (two) times daily. Take 3 tablets in the morning and 3 tablets in the evening for 14 days. Then 7 days off . Take within 30 minutes of finishing a meal. [facility] capecitabin e 500 mg tablet 3-0 -12 00:00: 00 Yes [id number] 1500mg Take 3 tablets by mouth 2 (two) times daily. Take 3 tablets in the morning and 3 tablets in the evening for 14 days. Then 7 days off . Take within 30 minutes of finishing a meal. [facility] capecitabin e 500 mg tablet 3-0 -12 00:00: 00 Yes [id number] 1500mg Take 3 tablets by mouth 2 (two) times daily. Take 3 tablets in the morning and 3 tablets in the evening for 14 days. Then 7 days off . Take within 30 minutes of finishing a meal. [facility] capecitabin e 500 mg tablet 2023-0 1-12 00:00: 00 Yes [id number] 1500mg Take 3 tablets by mouth 2 (two) times daily. Take 3 tablets in the morning and 3 tablets in the evening for 14 days. Then 7 days off . Take within 30 minutes of finishing a meal. [facility] capecitabin e 500 mg tablet 3-0 12 00:00: 00 Yes [id number] 1500mg Take 3 tablets by mouth 2 (two) times daily. Take 3 tablets in the morning and 3 tablets in the evening for 14 days. Then 7 days off . Take within 30 minutes of finishing a meal. [facility] capecitabin e 500 mg tablet 3-0 12 00:00: 00 Yes [id number] 1500mg Take 3 tablets by mouth 2 (two) times daily. Take 3 tablets in the morning and 3 tablets in the evening for 14 days. Then 7 days off . Take within 30 minutes of finishing a meal. [facility] capecitabin e 500 mg tablet 3-0 12 00:00: 00 Yes [id number] 1500mg Take 3 tablets by mouth 2 (two) times daily. Take 3 tablets in the morning and 3 tablets in the evening for 14 days. Then 7 days off . Take within 30 minutes of finishing a meal. [facility] capecitabin e 500 mg tablet 3-0 12 00:00: 00 Yes [id number] 1500mg Take 3 tablets by mouth 2 (two) times daily. Take 3 tablets in the morning and 3 tablets in the evening for 14 days. Then 7 days off . Take within 30 minutes of finishing a meal. [facility] capecitabin e 500 mg tablet 3-0 12 00:00: 00 Yes [id number] 1500mg Take 3 tablets by mouth 2 (two) times daily. Take 3 tablets in the morning and 3 tablets in the evening for 14 days. Then 7 days off . Take within 30 minutes of finishing a meal. [facility] capecitabin e 500 mg tablet 3-0 12 00:00: 00 Yes [id number] 1500mg Take 3 tablets by mouth 2 (two) times daily. Take 3 tablets in the morning and 3 tablets in the evening for 14 days. Then 7 days off . Take within 30 minutes of finishing a meal. [facility] capecitabin e 500 mg tablet 2023-0 1-12 00:00: 00 Yes [id number] 1500mg Take 3 tablets by mouth 2 (two) times daily. Take 3 tablets in the morning and 3 tablets in the evening for 14 days. Then 7 days off . Take within 30 minutes of finishing a meal. [facility] capecitabin e 500 mg tablet 2023-0 1-12 00:00: 00 Yes [id number] 1500mg Take 3 tablets by mouth 2 (two) times daily. Take 3 tablets in the morning and 3 tablets in the evening for 14 days. Then 7 days off . Take within 30 minutes of finishing a meal. [facility] capecitabin e 500 mg tablet 3-0 -12 00:00: 00 Yes [id number] 1500mg Take 3 tablets by mouth 2 (two) times daily. Take 3 tablets in the morning and 3 tablets in the evening for 14 days. Then 7 days off . Take within 30 minutes of finishing a meal. [facility] capecitabin e 500 mg tablet 3-0 12 00:00: 00 Yes [id number] 1500mg Take 3 tablets by mouth 2 (two) times daily. Take 3 tablets in the morning and 3 tablets in the evening for 14 days. Then 7 days off . Take within 30 minutes of finishing a meal. [facility] capecitabin e 500 mg tablet 3-0 -12 00:00: 00 Yes [id number] 1500mg Take 3 tablets by mouth 2 (two) times daily. Take 3 tablets in the morning and 3 tablets in the evening for 14 days. Then 7 days off . Take within 30 minutes of finishing a meal. [facility] capecitabin e 500 mg tablet 2023-0 1-12 00:00: 00 Yes [id number] 1500mg Take 3 tablets by mouth 2 (two) times daily. Take 3 tablets in the morning and 3 tablets in the evening for 14 days. Then 7 days off . Take within 30 minutes of finishing a meal. [facility] capecitabin e 500 mg tablet 2023-0 1-12 00:00: 00 Yes [id number] 1500mg Take 3 tablets by mouth 2 (two) times daily. Take 3 tablets in the morning and 3 tablets in the evening for 14 days. Then 7 days off . Take within 30 minutes of finishing a meal. [facility] capecitabin e 500 mg tablet 2022-0 1-12 00:00: 00 Yes [id number] 1500mg Take 3 tablets by mouth 2 (two) times daily. Take 3 tablets in the morning and 3 tablets in the evening for 14 days. Then 7 days off . Take within 30 minutes of finishing a meal. [facility] capecitabin e 500 mg tablet 2022-0 -12 00:00: 00 Yes [id number] 1500mg Take 3 tablets by mouth 2 (two) times daily. Take 3 tablets in the morning and 3 tablets in the evening for 14 days. Then 7 days off . Take within 30 minutes of finishing a meal. [facility] capecitabin e 500 mg tablet 2022-0 08-20 00:00: 00 Yes [id number] 1500mg Take 3 tablets by mouth 2 (two) times daily. Take 3 tablets in the morning and 3 tablets in the evening for 14 days. Then 7 days off . Take within 30 minutes of finishing a meal. [facility] capecitabin e 500 mg tablet 2022-0 -12 00:00: 00 04-02 00:00 :00 No [id number] 1500mg Take 3 tablets by mouth 2 (two) times daily. Take 3 tablets in the morning and 3 tablets in the evening for 14 days. Then 7 days off . Take within 30 minutes of finishing a meal. [facility] gabapentin 300 mg capsule 2022-0 -12 00:00: 00 10-01 00:00 :00 No [id number] 300mg Take 1 capsule by mouth at bedtime. [facility] gabapentin 300 mg capsule 2022-0 -12 00:00: 00 10-01 00:00 :00 No [id number] 300mg Take 1 capsule by mouth at bedtime. [facility] TAMSULOSIN 0.4 mg 24 hr capsule 2022-0 1-10 00:00: 00 Yes [id number] TAKE TWO (2) CAPSULE(S) BY MOUTH ONCE DAILY AT BEDTIME. [facility] LISINOPRIL 2.5 mg tablet 3-0 1-10 00:00: 00 Yes [id number] TAKE ONE (1) TABLET(S) BY MOUTH ONCE A DAY. [facility] ROSUVASTATI N 40 mg tablet 3-0 1-10 00:00: 00 Yes [id number] TAKE ONE (1) TABLET(S) BY MOUTH ONCE A DAY AT BEDTIME. [facility] FENOFIBRATE 160 mg tablet 2022-0 1-10 00:00: 00 Yes [id number] TAKE ONE (1) TABLET(S) BY MOUTH ONCE A DAY. [facility] TAMSULOSIN 0.4 mg 24 hr capsule 2022-0 1-10 00:00: 00 Yes [id number] TAKE TWO (2) CAPSULE(S) BY MOUTH ONCE DAILY AT BEDTIME. [facility] LISINOPRIL 2.5 mg tablet 3-0 -10 00:00: 00 Yes [id number] TAKE ONE (1) TABLET(S) BY MOUTH ONCE A DAY. [facility] ROSUVASTATI N 40 mg tablet 3-0 -10 00:00: 00 Yes [id number] TAKE ONE (1) TABLET(S) BY MOUTH ONCE A DAY AT BEDTIME. [facility] FENOFIBRATE 160 mg tablet 3-0 -10 00:00: 00 Yes [id number] TAKE ONE (1) TABLET(S) BY MOUTH ONCE A DAY. [facility] TAMSULOSIN 0.4 mg 24 hr capsule 2022-0 1-10 00:00: 00 Yes [id number] TAKE TWO (2) CAPSULE(S) BY MOUTH ONCE DAILY AT BEDTIME. [facility] LISINOPRIL 2.5 mg tablet 3-0 1-10 00:00: 00 Yes [id number] TAKE ONE (1) TABLET(S) BY MOUTH ONCE A DAY. [facility] ROSUVASTATI N 40 mg tablet 3-0 1-10 00:00: 00 Yes [id number] TAKE ONE (1) TABLET(S) BY MOUTH ONCE A DAY AT BEDTIME. [facility] FENOFIBRATE 160 mg tablet 2022-0 -10 00:00: 00 Yes [id number] TAKE ONE (1) TABLET(S) BY MOUTH ONCE A DAY. [facility] TAMSULOSIN 0.4 mg 24 hr capsule 2022-0 -10 00:00: 00 Yes [id number] TAKE TWO (2) CAPSULE(S) BY MOUTH ONCE DAILY AT BEDTIME. [facility] LISINOPRIL 2.5 mg tablet 2022-0 -10 00:00: 00 Yes [id number] TAKE ONE (1) TABLET(S) BY MOUTH ONCE A DAY. [facility] ROSUVASTATI N 40 mg tablet 2022-0 -10 00:00: 00 Yes [id number] TAKE ONE (1) TABLET(S) BY MOUTH ONCE A DAY AT BEDTIME. [facility] FENOFIBRATE 160 mg tablet 2022-0 -10 00:00: 00 Yes [id number] TAKE ONE (1) TABLET(S) BY MOUTH ONCE A DAY. [facility] TAMSULOSIN 0.4 mg 24 hr capsule 2022-0 -10 00:00: 00 Yes [id number] TAKE TWO (2) CAPSULE(S) BY MOUTH ONCE DAILY AT BEDTIME. [facility] LISINOPRIL 2.5 mg tablet 2022-0 10 00:00: 00 Yes [id number] TAKE ONE (1) TABLET(S) BY MOUTH ONCE A DAY. [facility] ROSUVASTATI N 40 mg tablet 2022-0 -10 00:00: 00 Yes [id number] TAKE ONE (1) TABLET(S) BY MOUTH ONCE A DAY AT BEDTIME. [facility] FENOFIBRATE 160 mg tablet 3-0 -10 00:00: 00 Yes [id number] TAKE ONE (1) TABLET(S) BY MOUTH ONCE A DAY. [facility] TAMSULOSIN 0.4 mg 24 hr capsule 3-0 1-10 00:00: 00 Yes [id number] TAKE TWO (2) CAPSULE(S) BY MOUTH ONCE DAILY AT BEDTIME. [facility] LISINOPRIL 2.5 mg tablet 2023-0 1-10 00:00: 00 Yes [id number] TAKE ONE (1) TABLET(S) BY MOUTH ONCE A DAY. [facility] ROSUVASTATI N 40 mg tablet 3-0 1-10 00:00: 00 Yes [id number] TAKE ONE (1) TABLET(S) BY MOUTH ONCE A DAY AT BEDTIME. [facility] FENOFIBRATE 160 mg tablet 3-0 1-10 00:00: 00 Yes [id number] TAKE ONE (1) TABLET(S) BY MOUTH ONCE A DAY. [facility] TAMSULOSIN 0.4 mg 24 hr capsule 3-0 1-10 00:00: 00 Yes [id number] TAKE TWO (2) CAPSULE(S) BY MOUTH ONCE DAILY AT BEDTIME. [facility] LISINOPRIL 2.5 mg tablet 3-0 -10 00:00: 00 Yes [id number] TAKE ONE (1) TABLET(S) BY MOUTH ONCE A DAY. [facility] ROSUVASTATI N 40 mg tablet 3-0 -10 00:00: 00 Yes [id number] TAKE ONE (1) TABLET(S) BY MOUTH ONCE A DAY AT BEDTIME. [facility] FENOFIBRATE 160 mg tablet 3-0 -10 00:00: 00 Yes [id number] TAKE ONE (1) TABLET(S) BY MOUTH ONCE A DAY. [facility] TAMSULOSIN 0.4 mg 24 hr capsule 3-0 10 00:00: 00 Yes [id number] TAKE TWO (2) CAPSULE(S) BY MOUTH ONCE DAILY AT BEDTIME. [facility] LISINOPRIL 2.5 mg tablet 3-0 -10 00:00: 00 Yes [id number] TAKE ONE (1) TABLET(S) BY MOUTH ONCE A DAY. [facility] ROSUVASTATI N 40 mg tablet 3-0 -10 00:00: 00 Yes [id number] TAKE ONE (1) TABLET(S) BY MOUTH ONCE A DAY AT BEDTIME. [facility] FENOFIBRATE 160 mg tablet 3-0 1-10 00:00: 00 Yes [id number] TAKE ONE (1) TABLET(S) BY MOUTH ONCE A DAY. [facility] TAMSULOSIN 0.4 mg 24 hr capsule 3-0 -10 00:00: 00 Yes [id number] TAKE TWO (2) CAPSULE(S) BY MOUTH ONCE DAILY AT BEDTIME. [facility] LISINOPRIL 2.5 mg tablet 3-0 -10 00:00: 00 Yes [id number] TAKE ONE (1) TABLET(S) BY MOUTH ONCE A DAY. [facility] ROSUVASTATI N 40 mg tablet 3-0 -10 00:00: 00 Yes [id number] TAKE ONE (1) TABLET(S) BY MOUTH ONCE A DAY AT BEDTIME. [facility] FENOFIBRATE 160 mg tablet 2022-0 10 00:00: 00 Yes [id number] TAKE ONE (1) TABLET(S) BY MOUTH ONCE A DAY. [facility] TAMSULOSIN 0.4 mg 24 hr capsule 2022-0 10 00:00: 00 Yes [id number] TAKE TWO (2) CAPSULE(S) BY MOUTH ONCE DAILY AT BEDTIME. [facility] LISINOPRIL 2.5 mg tablet 2022-0 10 00:00: 00 Yes [id number] TAKE ONE (1) TABLET(S) BY MOUTH ONCE A DAY. [facility] ROSUVASTATI N 40 mg tablet 3-0 10 00:00: 00 Yes [id number] TAKE ONE (1) TABLET(S) BY MOUTH ONCE A DAY AT BEDTIME. [facility] FENOFIBRATE 160 mg tablet 3-0 -10 00:00: 00 Yes [id number] TAKE ONE (1) TABLET(S) BY MOUTH ONCE A DAY. [facility] TAMSULOSIN 0.4 mg 24 hr capsule 3-0 -10 00:00: 00 Yes [id number] TAKE TWO (2) CAPSULE(S) BY MOUTH ONCE DAILY AT BEDTIME. [facility] LISINOPRIL 2.5 mg tablet 3-0 -10 00:00: 00 Yes [id number] TAKE ONE (1) TABLET(S) BY MOUTH ONCE A DAY. [facility] ROSUVASTATI N 40 mg tablet 3-0 1-10 00:00: 00 Yes [id number] TAKE ONE (1) TABLET(S) BY MOUTH ONCE A DAY AT BEDTIME. [facility] FENOFIBRATE 160 mg tablet 3-0 1-10 00:00: 00 Yes [id number] TAKE ONE (1) TABLET(S) BY MOUTH ONCE A DAY. [facility] TAMSULOSIN 0.4 mg 24 hr capsule 2022-0 1-10 00:00: 00 Yes [id number] TAKE TWO (2) CAPSULE(S) BY MOUTH ONCE DAILY AT BEDTIME. [facility] LISINOPRIL 2.5 mg tablet 2022-0 -10 00:00: 00 Yes [id number] TAKE ONE (1) TABLET(S) BY MOUTH ONCE A DAY. [facility] ROSUVASTATI N 40 mg tablet 2022-0 -10 00:00: 00 Yes [id number] TAKE ONE (1) TABLET(S) BY MOUTH ONCE A DAY AT BEDTIME. [facility] FENOFIBRATE 160 mg tablet 3-0 -10 00:00: 00 Yes [id number] TAKE ONE (1) TABLET(S) BY MOUTH ONCE A DAY. [facility] TAMSULOSIN 0.4 mg 24 hr capsule 2022-0 -10 00:00: 00 Yes [id number] TAKE TWO (2) CAPSULE(S) BY MOUTH ONCE DAILY AT BEDTIME. [facility] LISINOPRIL 2.5 mg tablet 2022-0 -10 00:00: 00 Yes [id number] TAKE ONE (1) TABLET(S) BY MOUTH ONCE A DAY. [facility] ROSUVASTATI N 40 mg tablet 3-0 1-10 00:00: 00 Yes [id number] TAKE ONE (1) TABLET(S) BY MOUTH ONCE A DAY AT BEDTIME. [facility] FENOFIBRATE 160 mg tablet 3-0 1-10 00:00: 00 Yes [id number] TAKE ONE (1) TABLET(S) BY MOUTH ONCE A DAY. [facility] TAMSULOSIN 0.4 mg 24 hr capsule 3-0 1-10 00:00: 00 Yes [id number] TAKE TWO (2) CAPSULE(S) BY MOUTH ONCE DAILY AT BEDTIME. [facility] LISINOPRIL 2.5 mg tablet 3-0 1-10 00:00: 00 Yes [id number] TAKE ONE (1) TABLET(S) BY MOUTH ONCE A DAY. [facility] ROSUVASTATI N 40 mg tablet 3-0 1-10 00:00: 00 Yes [id number] TAKE ONE (1) TABLET(S) BY MOUTH ONCE A DAY AT BEDTIME. [facility] FENOFIBRATE 160 mg tablet 3-0 1-10 00:00: 00 Yes [id number] TAKE ONE (1) TABLET(S) BY MOUTH ONCE A DAY. [facility] TAMSULOSIN 0.4 mg 24 hr capsule 3-0 1-10 00:00: 00 Yes [id number] [id number] TAKE TWO (2) CAPSULE(S) BY MOUTH ONCE DAILY AT BEDTIME. [facility] LISINOPRIL 2.5 mg tablet 3-0 1-10 00:00: 00 Yes [id number] TAKE ONE (1) TABLET(S) BY MOUTH ONCE A DAY. [facility] ROSUVASTATI N 40 mg tablet 3-0 1-10 00:00: 00 Yes [id number] TAKE ONE (1) TABLET(S) BY MOUTH ONCE A DAY AT BEDTIME. [facility] FENOFIBRATE 160 mg tablet 3-0 1-10 00:00: 00 Yes [id number] TAKE ONE (1) TABLET(S) BY MOUTH ONCE A DAY. [facility] TAMSULOSIN 0.4 mg 24 hr capsule 3-0 1-10 00:00: 00 Yes [id number] TAKE TWO (2) CAPSULE(S) BY MOUTH ONCE DAILY AT BEDTIME. [facility] LISINOPRIL 2.5 mg tablet 2023-0 1-10 00:00: 00 Yes [id number] TAKE ONE (1) TABLET(S) BY MOUTH ONCE A DAY. [facility] ROSUVASTATI N 40 mg tablet 3-0 1-10 00:00: 00 Yes [id number] TAKE ONE (1) TABLET(S) BY MOUTH ONCE A DAY AT BEDTIME. [facility] FENOFIBRATE 160 mg tablet 3-0 1-10 00:00: 00 Yes [id number] TAKE ONE (1) TABLET(S) BY MOUTH ONCE A DAY. [facility] TAMSULOSIN 0.4 mg 24 hr capsule 3-0 1-10 00:00: 00 Yes [id number] TAKE TWO (2) CAPSULE(S) BY MOUTH ONCE DAILY AT BEDTIME. [facility] LISINOPRIL 2.5 mg tablet 3-0 -10 00:00: 00 Yes [id number] TAKE ONE (1) TABLET(S) BY MOUTH ONCE A DAY. [facility] ROSUVASTATI N 40 mg tablet 3-0 -10 00:00: 00 Yes [id number] TAKE ONE (1) TABLET(S) BY MOUTH ONCE A DAY AT BEDTIME. [facility] FENOFIBRATE 160 mg tablet 2022-0 -10 00:00: 00 Yes [id number] TAKE ONE (1) TABLET(S) BY MOUTH ONCE A DAY. [facility] TAMSULOSIN 0.4 mg 24 hr capsule 2022-0 -10 00:00: 00 Yes [id number] [id number] TAKE TWO (2) CAPSULE(S) BY MOUTH ONCE DAILY AT BEDTIME. [facility] LISINOPRIL 2.5 mg tablet 3-0 -10 00:00: 00 Yes [id number] TAKE ONE (1) TABLET(S) BY MOUTH ONCE A DAY. [facility] ROSUVASTATI N 40 mg tablet 3-0 -10 00:00: 00 Yes [id number] TAKE ONE (1) TABLET(S) BY MOUTH ONCE A DAY AT BEDTIME. [facility] FENOFIBRATE 160 mg tablet 3-0 1-10 00:00: 00 Yes [id number] TAKE ONE (1) TABLET(S) BY MOUTH ONCE A DAY. [facility] TAMSULOSIN 0.4 mg 24 hr capsule 3-0 1-10 00:00: 00 Yes [id number] TAKE TWO (2) CAPSULE(S) BY MOUTH ONCE DAILY AT BEDTIME. [facility] LISINOPRIL 2.5 mg tablet 2022-0 -10 00:00: 00 Yes [id number] TAKE ONE (1) TABLET(S) BY MOUTH ONCE A DAY. [facility] ROSUVASTATI N 40 mg tablet 2022-0 1-10 00:00: 00 Yes [id number] TAKE ONE (1) TABLET(S) BY MOUTH ONCE A DAY AT BEDTIME. [facility] FENOFIBRATE 160 mg tablet 2022-0 1-10 00:00: 00 Yes [id number] TAKE ONE (1) TABLET(S) BY MOUTH ONCE A DAY. [facility] TAMSULOSIN 0.4 mg 24 hr capsule 2022-0 -10 00:00: 00 Yes [id number] TAKE TWO (2) CAPSULE(S) BY MOUTH ONCE DAILY AT BEDTIME. [facility] LISINOPRIL 2.5 mg tablet 2022-0 -10 00:00: 00 Yes [id number] TAKE ONE (1) TABLET(S) BY MOUTH ONCE A DAY. [facility] ROSUVASTATI N 40 mg tablet 2022-0 10 00:00: 00 Yes [id number] TAKE ONE (1) TABLET(S) BY MOUTH ONCE A DAY AT BEDTIME. [facility] FENOFIBRATE 160 mg tablet 2022-0 -10 00:00: 00 Yes [id number] TAKE ONE (1) TABLET(S) BY MOUTH ONCE A DAY. [facility] TAMSULOSIN 0.4 mg 24 hr capsule 2022-0 -10 00:00: 00 Yes [id number] [id number] TAKE TWO (2) CAPSULE(S) BY MOUTH ONCE DAILY AT BEDTIME. [facility] LISINOPRIL 2.5 mg tablet 3-0 -10 00:00: 00 Yes [id number] TAKE ONE (1) TABLET(S) BY MOUTH ONCE A DAY. [facility] ROSUVASTATI N 40 mg tablet 3-0 1-10 00:00: 00 Yes [id number] TAKE ONE (1) TABLET(S) BY MOUTH ONCE A DAY AT BEDTIME. [facility] FENOFIBRATE 160 mg tablet 3-0 1-10 00:00: 00 Yes [id number] TAKE ONE (1) TABLET(S) BY MOUTH ONCE A DAY. [facility] TAMSULOSIN 0.4 mg 24 hr capsule 3-0 1-10 00:00: 00 Yes [id number] [id number] TAKE TWO (2) CAPSULE(S) BY MOUTH ONCE DAILY AT BEDTIME. [facility] LISINOPRIL 2.5 mg tablet 2022-0 1-10 00:00: 00 Yes [id number] TAKE ONE (1) TABLET(S) BY MOUTH ONCE A DAY. [facility] ROSUVASTATI N 40 mg tablet 2022-0 1-10 00:00: 00 Yes [id number] TAKE ONE (1) TABLET(S) BY MOUTH ONCE A DAY AT BEDTIME. [facility] FENOFIBRATE 160 mg tablet 2022-0 -10 00:00: 00 Yes [id number] TAKE ONE (1) TABLET(S) BY MOUTH ONCE A DAY. [facility] TAMSULOSIN 0.4 mg 24 hr capsule 2022-0 1-10 00:00: 00 Yes [id number] [id number] TAKE TWO (2) CAPSULE(S) BY MOUTH ONCE DAILY AT BEDTIME. [facility] LISINOPRIL 2.5 mg tablet 2022-0 -10 00:00: 00 Yes [id number] TAKE ONE (1) TABLET(S) BY MOUTH ONCE A DAY. [facility] ROSUVASTATI N 40 mg tablet 3-0 1-10 00:00: 00 Yes [id number] TAKE ONE (1) TABLET(S) BY MOUTH ONCE A DAY AT BEDTIME. [facility] FENOFIBRATE 160 mg tablet 3-0 1-10 00:00: 00 Yes [id number] TAKE ONE (1) TABLET(S) BY MOUTH ONCE A DAY. [facility] TAMSULOSIN 0.4 mg 24 hr capsule 3-0 1-10 00:00: 00 Yes [id number] [id number] TAKE TWO (2) CAPSULE(S) BY MOUTH ONCE DAILY AT BEDTIME. [facility] LISINOPRIL 2.5 mg tablet 3-0 -10 00:00: 00 Yes [id number] TAKE ONE (1) TABLET(S) BY MOUTH ONCE A DAY. [facility] ROSUVASTATI N 40 mg tablet 2022-0 1-10 00:00: 00 Yes [id number] TAKE ONE (1) TABLET(S) BY MOUTH ONCE A DAY AT BEDTIME. [facility] FENOFIBRATE 160 mg tablet 3-0 1-10 00:00: 00 Yes [id number] TAKE ONE (1) TABLET(S) BY MOUTH ONCE A DAY. [facility] TAMSULOSIN 0.4 mg 24 hr capsule 3-0 -10 00:00: 00 Yes [id number] [id number] TAKE TWO (2) CAPSULE(S) BY MOUTH ONCE DAILY AT BEDTIME. [facility] LISINOPRIL 2.5 mg tablet 3-0 -10 00:00: 00 Yes [id number] TAKE ONE (1) TABLET(S) BY MOUTH ONCE A DAY. [facility] ROSUVASTATI N 40 mg tablet 3-0 10 00:00: 00 Yes [id number] TAKE ONE (1) TABLET(S) BY MOUTH ONCE A DAY AT BEDTIME. [facility] FENOFIBRATE 160 mg tablet 3-0 10 00:00: 00 Yes [id number] TAKE ONE (1) TABLET(S) BY MOUTH ONCE A DAY. [facility] TAMSULOSIN 0.4 mg 24 hr capsule 3-0 -10 00:00: 00 Yes [id number] [id number] TAKE TWO (2) CAPSULE(S) BY MOUTH ONCE DAILY AT BEDTIME. [facility] LISINOPRIL 2.5 mg tablet 3-0 -10 00:00: 00 Yes [id number] TAKE ONE (1) TABLET(S) BY MOUTH ONCE A DAY. [facility] ROSUVASTATI N 40 mg tablet 3-0 1-10 00:00: 00 Yes [id number] TAKE ONE (1) TABLET(S) BY MOUTH ONCE A DAY AT BEDTIME. [facility] FENOFIBRATE 160 mg tablet 2023-0 1-10 00:00: 00 Yes [id number] TAKE ONE (1) TABLET(S) BY MOUTH ONCE A DAY. [facility] TAMSULOSIN 0.4 mg 24 hr capsule 2022-0 -10 00:00: 00 Yes [id number] [id number] TAKE TWO (2) CAPSULE(S) BY MOUTH ONCE DAILY AT BEDTIME. [facility] LISINOPRIL 2.5 mg tablet 2022-0 10 00:00: 00 Yes [id number] TAKE ONE (1) TABLET(S) BY MOUTH ONCE A DAY. [facility] ROSUVASTATI N 40 mg tablet 2022-0 10 00:00: 00 Yes [id number] TAKE ONE (1) TABLET(S) BY MOUTH ONCE A DAY AT BEDTIME. [facility] FENOFIBRATE 160 mg tablet 2022-0 10 00:00: 00 Yes [id number] TAKE ONE (1) TABLET(S) BY MOUTH ONCE A DAY. [facility] TAMSULOSIN 0.4 mg 24 hr capsule 2022-0 08-18 00:00: 00 Yes [id number] [id number] TAKE TWO (2) CAPSULE(S) BY MOUTH ONCE DAILY AT BEDTIME. [facility] LISINOPRIL 2.5 mg tablet 2022-0 10 00:00: 00 Yes [id number] TAKE ONE (1) TABLET(S) BY MOUTH ONCE A DAY. [facility] ROSUVASTATI N 40 mg tablet 2022-0 10 00:00: 00 Yes [id number] TAKE ONE (1) TABLET(S) BY MOUTH ONCE A DAY AT BEDTIME. [facility] FENOFIBRATE 160 mg tablet 3-0 10 00:00: 00 Yes [id number] TAKE ONE (1) TABLET(S) BY MOUTH ONCE A DAY. [facility] TAMSULOSIN 0.4 mg 24 hr capsule 2022-0 -10 00:00: 00 Yes [id number] [id number] TAKE TWO (2) CAPSULE(S) BY MOUTH ONCE DAILY AT BEDTIME. [facility] LISINOPRIL 2.5 mg tablet 3-0 -10 00:00: 00 Yes [id number] TAKE ONE (1) TABLET(S) BY MOUTH ONCE A DAY. [facility] ROSUVASTATI N 40 mg tablet 2022-0 -10 00:00: 00 Yes [id number] TAKE ONE (1) TABLET(S) BY MOUTH ONCE A DAY AT BEDTIME. [facility] FENOFIBRATE 160 mg tablet 2022-0 -10 00:00: 00 Yes [id number] TAKE ONE (1) TABLET(S) BY MOUTH ONCE A DAY. [facility] TAMSULOSIN 0.4 mg 24 hr capsule 2022-0 -10 00:00: 00 Yes [id number] TAKE TWO (2) CAPSULE(S) BY MOUTH ONCE DAILY AT BEDTIME. [facility] LISINOPRIL 2.5 mg tablet 2022-0 -10 00:00: 00 Yes [id number] TAKE ONE (1) TABLET(S) BY MOUTH ONCE A DAY. [facility] ROSUVASTATI N 40 mg tablet 2022-0 10 00:00: 00 Yes [id number] TAKE ONE (1) TABLET(S) BY MOUTH ONCE A DAY AT BEDTIME. [facility] FENOFIBRATE 160 mg tablet 3-0 10 00:00: 00 Yes [id number] TAKE ONE (1) TABLET(S) BY MOUTH ONCE A DAY. [facility] TAMSULOSIN 0.4 mg 24 hr capsule 2022-0 10 00:00: 00 Yes [id number] TAKE TWO (2) CAPSULE(S) BY MOUTH ONCE DAILY AT BEDTIME. [facility] LISINOPRIL 2.5 mg tablet 2022-0 -10 00:00: 00 Yes [id number] TAKE ONE (1) TABLET(S) BY MOUTH ONCE A DAY. [facility] ROSUVASTATI N 40 mg tablet 3-0 -10 00:00: 00 Yes [id number] TAKE ONE (1) TABLET(S) BY MOUTH ONCE A DAY AT BEDTIME. [facility] FENOFIBRATE 160 mg tablet 3-0 -10 00:00: 00 Yes [id number] TAKE ONE (1) TABLET(S) BY MOUTH ONCE A DAY. [facility] TAMSULOSIN 0.4 mg 24 hr capsule 3-0 1-10 00:00: 00 Yes [id number] [id number] TAKE TWO (2) CAPSULE(S) BY MOUTH ONCE DAILY AT BEDTIME. [facility] LISINOPRIL 2.5 mg tablet 3-0 1-10 00:00: 00 Yes [id number] TAKE ONE (1) TABLET(S) BY MOUTH ONCE A DAY. [facility] ROSUVASTATI N 40 mg tablet 3-0 1-10 00:00: 00 Yes [id number] TAKE ONE (1) TABLET(S) BY MOUTH ONCE A DAY AT BEDTIME. [facility] FENOFIBRATE 160 mg tablet 3-0 1-10 00:00: 00 Yes [id number] TAKE ONE (1) TABLET(S) BY MOUTH ONCE A DAY. [facility] TAMSULOSIN 0.4 mg 24 hr capsule 3-0 1-10 00:00: 00 Yes [id number] [id number] TAKE TWO (2) CAPSULE(S) BY MOUTH ONCE DAILY AT BEDTIME. [facility] LISINOPRIL 2.5 mg tablet 3-0 1-10 00:00: 00 Yes [id number] TAKE ONE (1) TABLET(S) BY MOUTH ONCE A DAY. [facility] ROSUVASTATI N 40 mg tablet 3-0 1-10 00:00: 00 Yes [id number] TAKE ONE (1) TABLET(S) BY MOUTH ONCE A DAY AT BEDTIME. [facility] FENOFIBRATE 160 mg tablet 3-0 1-10 00:00: 00 Yes [id number] TAKE ONE (1) TABLET(S) BY MOUTH ONCE A DAY. [facility] TAMSULOSIN 0.4 mg 24 hr capsule 3-0 1-10 00:00: 00 Yes [id number] TAKE TWO (2) CAPSULE(S) BY MOUTH ONCE DAILY AT BEDTIME. [facility] LISINOPRIL 2.5 mg tablet 3-0 1-10 00:00: 00 Yes [id number] TAKE ONE (1) TABLET(S) BY MOUTH ONCE A DAY. [facility] ROSUVASTATI N 40 mg tablet 3-0 -10 00:00: 00 Yes [id number] TAKE ONE (1) TABLET(S) BY MOUTH ONCE A DAY AT BEDTIME. [facility] FENOFIBRATE 160 mg tablet 2022-0 -10 00:00: 00 Yes [id number] TAKE ONE (1) TABLET(S) BY MOUTH ONCE A DAY. [facility] TAMSULOSIN 0.4 mg 24 hr capsule 2022-0 -10 00:00: 00 Yes [id number] [id number] TAKE TWO (2) CAPSULE(S) BY MOUTH ONCE DAILY AT BEDTIME. [facility] LISINOPRIL 2.5 mg tablet 2022-0 -10 00:00: 00 Yes [id number] TAKE ONE (1) TABLET(S) BY MOUTH ONCE A DAY. [facility] ROSUVASTATI N 40 mg tablet 3-0 -10 00:00: 00 Yes [id number] TAKE ONE (1) TABLET(S) BY MOUTH ONCE A DAY AT BEDTIME. [facility] FENOFIBRATE 160 mg tablet 3-0 10 00:00: 00 Yes [id number] TAKE ONE (1) TABLET(S) BY MOUTH ONCE A DAY. [facility] TAMSULOSIN 0.4 mg 24 hr capsule 2022-0 10 00:00: 00 Yes [id number] TAKE TWO (2) CAPSULE(S) BY MOUTH ONCE DAILY AT BEDTIME. [facility] LISINOPRIL 2.5 mg tablet 3-0 10 00:00: 00 Yes [id number] TAKE ONE (1) TABLET(S) BY MOUTH ONCE A DAY. [facility] ROSUVASTATI N 40 mg tablet 3-0 -10 00:00: 00 Yes [id number] TAKE ONE (1) TABLET(S) BY MOUTH ONCE A DAY AT BEDTIME. [facility] FENOFIBRATE 160 mg tablet 3-0 1-10 00:00: 00 Yes [id number] TAKE ONE (1) TABLET(S) BY MOUTH ONCE A DAY. [facility] TAMSULOSIN 0.4 mg 24 hr capsule 3-0 -10 00:00: 00 Yes [id number] [id number] TAKE TWO (2) CAPSULE(S) BY MOUTH ONCE DAILY AT BEDTIME. [facility] LISINOPRIL 2.5 mg tablet 3-0 -10 00:00: 00 Yes [id number] TAKE ONE (1) TABLET(S) BY MOUTH ONCE A DAY. [facility] ROSUVASTATI N 40 mg tablet 3-0 -10 00:00: 00 Yes [id number] TAKE ONE (1) TABLET(S) BY MOUTH ONCE A DAY AT BEDTIME. [facility] FENOFIBRATE 160 mg tablet 3-0 -10 00:00: 00 Yes [id number] TAKE ONE (1) TABLET(S) BY MOUTH ONCE A DAY. [facility] TAMSULOSIN 0.4 mg 24 hr capsule 3-0 -10 00:00: 00 Yes [id number] [id number] TAKE TWO (2) CAPSULE(S) BY MOUTH ONCE DAILY AT BEDTIME. [facility] LISINOPRIL 2.5 mg tablet 3-0 10 00:00: 00 Yes [id number] TAKE ONE (1) TABLET(S) BY MOUTH ONCE A DAY. [facility] ROSUVASTATI N 40 mg tablet 3-0 -10 00:00: 00 Yes [id number] TAKE ONE (1) TABLET(S) BY MOUTH ONCE A DAY AT BEDTIME. [facility] FENOFIBRATE 160 mg tablet 3-0 -10 00:00: 00 Yes [id number] TAKE ONE (1) TABLET(S) BY MOUTH ONCE A DAY. [facility] TAMSULOSIN 0.4 mg 24 hr capsule 3-0 -10 00:00: 00 Yes [id number] [id number] TAKE TWO (2) CAPSULE(S) BY MOUTH ONCE DAILY AT BEDTIME. [facility] LISINOPRIL 2.5 mg tablet 3-0 -10 00:00: 00 Yes [id number] TAKE ONE (1) TABLET(S) BY MOUTH ONCE A DAY. [facility] ROSUVASTATI N 40 mg tablet 3-0 1-10 00:00: 00 Yes [id number] TAKE ONE (1) TABLET(S) BY MOUTH ONCE A DAY AT BEDTIME. [facility] FENOFIBRATE 160 mg tablet 3-0 1-10 00:00: 00 Yes [id number] TAKE ONE (1) TABLET(S) BY MOUTH ONCE A DAY. [facility] TAMSULOSIN 0.4 mg 24 hr capsule 3-0 1-10 00:00: 00 Yes [id number] [id number] TAKE TWO (2) CAPSULE(S) BY MOUTH ONCE DAILY AT BEDTIME. [facility] LISINOPRIL 2.5 mg tablet 3-0 1-10 00:00: 00 Yes [id number] TAKE ONE (1) TABLET(S) BY MOUTH ONCE A DAY. [facility] ROSUVASTATI N 40 mg tablet 2022-0 1-10 00:00: 00 Yes [id number] TAKE ONE (1) TABLET(S) BY MOUTH ONCE A DAY AT BEDTIME. [facility] FENOFIBRATE 160 mg tablet 3-0 -10 00:00: 00 Yes [id number] TAKE ONE (1) TABLET(S) BY MOUTH ONCE A DAY. [facility] TAMSULOSIN 0.4 mg 24 hr capsule 3-0 -10 00:00: 00 Yes [id number] 9102 TAKE TWO (2) CAPSULE(S) BY MOUTH ONCE DAILY AT BEDTIME. [facility] LISINOPRIL 2.5 mg tablet 3-0 -10 00:00: 00 Yes [id number] TAKE ONE (1) TABLET(S) BY MOUTH ONCE A DAY. [facility] ROSUVASTATI N 40 mg tablet 3-0 -10 00:00: 00 Yes [id number] TAKE ONE (1) TABLET(S) BY MOUTH ONCE A DAY AT BEDTIME. [facility] FENOFIBRATE 160 mg tablet 3-0 1-10 00:00: 00 Yes [id number] TAKE ONE (1) TABLET(S) BY MOUTH ONCE A DAY. [facility] TAMSULOSIN 0.4 mg 24 hr capsule 3-0 1-10 00:00: 00 Yes [id number] [id number] TAKE TWO (2) CAPSULE(S) BY MOUTH ONCE DAILY AT BEDTIME. [facility] LISINOPRIL 2.5 mg tablet 3-0 1-10 00:00: 00 Yes [id number] TAKE ONE (1) TABLET(S) BY MOUTH ONCE A DAY. [facility] ROSUVASTATI N 40 mg tablet 3-0 1-10 00:00: 00 Yes [id number] TAKE ONE (1) TABLET(S) BY MOUTH ONCE A DAY AT BEDTIME. [facility] FENOFIBRATE 160 mg tablet 3-0 1-10 00:00: 00 Yes [id number] TAKE ONE (1) TABLET(S) BY MOUTH ONCE A DAY. [facility] TAMSULOSIN 0.4 mg 24 hr capsule 2022-0 1-10 00:00: 00 Yes [id number] [id number] TAKE TWO (2) CAPSULE(S) BY MOUTH ONCE DAILY AT BEDTIME. [facility] LISINOPRIL 2.5 mg tablet 3-0 -10 00:00: 00 Yes [id number] TAKE ONE (1) TABLET(S) BY MOUTH ONCE A DAY. [facility] ROSUVASTATI N 40 mg tablet 2022-0 -10 00:00: 00 Yes [id number] TAKE ONE (1) TABLET(S) BY MOUTH ONCE A DAY AT BEDTIME. [facility] FENOFIBRATE 160 mg tablet 3-0 1-10 00:00: 00 Yes [id number] TAKE ONE (1) TABLET(S) BY MOUTH ONCE A DAY. [facility] TAMSULOSIN 0.4 mg 24 hr capsule 2022-0 -10 00:00: 00 Yes [id number] [id number] TAKE TWO (2) CAPSULE(S) BY MOUTH ONCE DAILY AT BEDTIME. [facility] LISINOPRIL 2.5 mg tablet 3-0 1-10 00:00: 00 Yes [id number] TAKE ONE (1) TABLET(S) BY MOUTH ONCE A DAY. [facility] ROSUVASTATI N 40 mg tablet 3-0 1-10 00:00: 00 Yes [id number] TAKE ONE (1) TABLET(S) BY MOUTH ONCE A DAY AT BEDTIME. [facility] FENOFIBRATE 160 mg tablet 3-0 1-10 00:00: 00 Yes [id number] TAKE ONE (1) TABLET(S) BY MOUTH ONCE A DAY. [facility] TAMSULOSIN 0.4 mg 24 hr capsule 2022-0 1-10 00:00: 00 Yes [id number] [id number] TAKE TWO (2) CAPSULE(S) BY MOUTH ONCE DAILY AT BEDTIME. [facility] LISINOPRIL 2.5 mg tablet 3-0 1-10 00:00: 00 Yes [id number] TAKE ONE (1) TABLET(S) BY MOUTH ONCE A DAY. [facility] ROSUVASTATI N 40 mg tablet 3-0 1-10 00:00: 00 Yes [id number] TAKE ONE (1) TABLET(S) BY MOUTH ONCE A DAY AT BEDTIME. [facility] FENOFIBRATE 160 mg tablet 3-0 -10 00:00: 00 Yes [id number] TAKE ONE (1) TABLET(S) BY MOUTH ONCE A DAY. [facility] TAMSULOSIN 0.4 mg 24 hr capsule 2022-0 -10 00:00: 00 Yes [id number] [id number] TAKE TWO (2) CAPSULE(S) BY MOUTH ONCE DAILY AT BEDTIME. [facility] LISINOPRIL 2.5 mg tablet 2022-0 10 00:00: 00 Yes [id number] TAKE ONE (1) TABLET(S) BY MOUTH ONCE A DAY. [facility] ROSUVASTATI N 40 mg tablet 3-0 -10 00:00: 00 Yes [id number] TAKE ONE (1) TABLET(S) BY MOUTH ONCE A DAY AT BEDTIME. [facility] FENOFIBRATE 160 mg tablet 3-0 1-10 00:00: 00 Yes [id number] TAKE ONE (1) TABLET(S) BY MOUTH ONCE A DAY. [facility] TAMSULOSIN 0.4 mg 24 hr capsule 3-0 1-10 00:00: 00 Yes [id number] [id number] TAKE TWO (2) CAPSULE(S) BY MOUTH ONCE DAILY AT BEDTIME. [facility] LISINOPRIL 2.5 mg tablet 3-0 1-10 00:00: 00 Yes [id number] TAKE ONE (1) TABLET(S) BY MOUTH ONCE A DAY. [facility] ROSUVASTATI N 40 mg tablet 2022-0 -10 00:00: 00 Yes [id number] TAKE ONE (1) TABLET(S) BY MOUTH ONCE A DAY AT BEDTIME. [facility] FENOFIBRATE 160 mg tablet 3-0 -10 00:00: 00 Yes [id number] TAKE ONE (1) TABLET(S) BY MOUTH ONCE A DAY. [facility] TAMSULOSIN 0.4 mg 24 hr capsule 2022-0 -10 00:00: 00 Yes [id number] 9102 TAKE TWO (2) CAPSULE(S) BY MOUTH ONCE DAILY AT BEDTIME. [facility] LISINOPRIL 2.5 mg tablet 2022-0 10 00:00: 00 Yes [id number] TAKE ONE (1) TABLET(S) BY MOUTH ONCE A DAY. [facility] ROSUVASTATI N 40 mg tablet 2022-0 10 00:00: 00 Yes [id number] TAKE ONE (1) TABLET(S) BY MOUTH ONCE A DAY AT BEDTIME. [facility] FENOFIBRATE 160 mg tablet 2022-0 10 00:00: 00 Yes [id number] TAKE ONE (1) TABLET(S) BY MOUTH ONCE A DAY. [facility] TAMSULOSIN 0.4 mg 24 hr capsule 2022-0 10 00:00: 00 Yes [id number] TAKE TWO (2) CAPSULE(S) BY MOUTH ONCE DAILY AT BEDTIME. [facility] LISINOPRIL 2.5 mg tablet 2022-0 10 00:00: 00 Yes [id number] TAKE ONE (1) TABLET(S) BY MOUTH ONCE A DAY. [facility] ROSUVASTATI N 40 mg tablet 3-0 -10 00:00: 00 Yes [id number] TAKE ONE (1) TABLET(S) BY MOUTH ONCE A DAY AT BEDTIME. [facility] FENOFIBRATE 160 mg tablet 3-0 -10 00:00: 00 Yes [id number] TAKE ONE (1) TABLET(S) BY MOUTH ONCE A DAY. [facility] TAMSULOSIN 0.4 mg 24 hr capsule 3-0 -10 00:00: 00 Yes [id number] TAKE TWO (2) CAPSULE(S) BY MOUTH ONCE DAILY AT BEDTIME. [facility] LISINOPRIL 2.5 mg tablet 2022-0 -10 00:00: 00 Yes [id number] TAKE ONE (1) TABLET(S) BY MOUTH ONCE A DAY. [facility] ROSUVASTATI N 40 mg tablet 3-0 -10 00:00: 00 Yes [id number] TAKE ONE (1) TABLET(S) BY MOUTH ONCE A DAY AT BEDTIME. [facility] FENOFIBRATE 160 mg tablet 2022-0 -10 00:00: 00 Yes [id number] TAKE ONE (1) TABLET(S) BY MOUTH ONCE A DAY. [facility] TAMSULOSIN 0.4 mg 24 hr capsule 2022-0 10 00:00: 00 Yes [id number] TAKE TWO (2) CAPSULE(S) BY MOUTH ONCE DAILY AT BEDTIME. [facility] LISINOPRIL 2.5 mg tablet 3-0 10 00:00: 00 Yes [id number] TAKE ONE (1) TABLET(S) BY MOUTH ONCE A DAY. [facility] ROSUVASTATI N 40 mg tablet 3-0 -10 00:00: 00 Yes [id number] TAKE ONE (1) TABLET(S) BY MOUTH ONCE A DAY AT BEDTIME. [facility] FENOFIBRATE 160 mg tablet 3-0 -10 00:00: 00 Yes [id number] TAKE ONE (1) TABLET(S) BY MOUTH ONCE A DAY. [facility] TAMSULOSIN 0.4 mg 24 hr capsule 3-0 -10 00:00: 00 Yes [id number] TAKE TWO (2) CAPSULE(S) BY MOUTH ONCE DAILY AT BEDTIME. [facility] LISINOPRIL 2.5 mg tablet 3-0 1-10 00:00: 00 Yes [id number] TAKE ONE (1) TABLET(S) BY MOUTH ONCE A DAY. [facility] ROSUVASTATI N 40 mg tablet 3-0 1-10 00:00: 00 Yes [id number] TAKE ONE (1) TABLET(S) BY MOUTH ONCE A DAY AT BEDTIME. [facility] FENOFIBRATE 160 mg tablet 3-0 1-10 00:00: 00 Yes [id number] TAKE ONE (1) TABLET(S) BY MOUTH ONCE A DAY. [facility] TAMSULOSIN 0.4 mg 24 hr capsule 2022-0 -10 00:00: 00 Yes [id number] 9102 TAKE TWO (2) CAPSULE(S) BY MOUTH ONCE DAILY AT BEDTIME. [facility] LISINOPRIL 2.5 mg tablet 2022-0 -10 00:00: 00 Yes [id number] TAKE ONE (1) TABLET(S) BY MOUTH ONCE A DAY. [facility] ROSUVASTATI N 40 mg tablet 3-0 -10 00:00: 00 Yes [id number] TAKE ONE (1) TABLET(S) BY MOUTH ONCE A DAY AT BEDTIME. [facility] FENOFIBRATE 160 mg tablet 2022-0 -10 00:00: 00 Yes [id number] TAKE ONE (1) TABLET(S) BY MOUTH ONCE A DAY. [facility] TAMSULOSIN 0.4 mg 24 hr capsule 3-0 -10 00:00: 00 Yes [id number] 9102 TAKE TWO (2) CAPSULE(S) BY MOUTH ONCE DAILY AT BEDTIME. [facility] LISINOPRIL 2.5 mg tablet 3-0 -10 00:00: 00 Yes [id number] TAKE ONE (1) TABLET(S) BY MOUTH ONCE A DAY. [facility] ROSUVASTATI N 40 mg tablet 3-0 1-10 00:00: 00 Yes [id number] TAKE ONE (1) TABLET(S) BY MOUTH ONCE A DAY AT BEDTIME. [facility] FENOFIBRATE 160 mg tablet 3-0 1-10 00:00: 00 Yes [id number] TAKE ONE (1) TABLET(S) BY MOUTH ONCE A DAY. [facility] TAMSULOSIN 0.4 mg 24 hr capsule 2022-0 1-10 00:00: 00 11-20 00:00 :00 No [id number] 9102 TAKE TWO (2) CAPSULE(S) BY MOUTH ONCE DAILY AT BEDTIME. [facility] LISINOPRIL 2.5 mg tablet 2022-0 1-10 00:00: 00 11-20 00:00 :00 No [id number] TAKE ONE (1) TABLET(S) BY MOUTH ONCE A DAY. [facility] ROSUVASTATI N 40 mg tablet 2022-0 1-10 00:00: 00 11-20 00:00 :00 No [id number] TAKE ONE (1) TABLET(S) BY MOUTH ONCE A DAY AT BEDTIME. [facility] FENOFIBRATE 160 mg tablet 2022-0 1-10 00:00: 00 11-20 00:00 :00 No [id number] TAKE ONE (1) TABLET(S) BY MOUTH ONCE A DAY. [facility] TAMSULOSIN 0.4 mg 24 hr capsule 2022-0 1-10 00:00: 00 11-20 00:00 :00 No [id number] 9102 TAKE TWO (2) CAPSULE(S) BY MOUTH ONCE DAILY AT BEDTIME. [facility] LISINOPRIL 2.5 mg tablet 2022-0 1-10 00:00: 00 11-20 00:00 :00 No [id number] TAKE ONE (1) TABLET(S) BY MOUTH ONCE A DAY. [facility] ROSUVASTATI N 40 mg tablet 0 1-10 00:00: 00 11-20 00:00 :00 No [id number] TAKE ONE (1) TABLET(S) BY MOUTH ONCE A DAY AT BEDTIME. [facility] FENOFIBRATE 160 mg tablet 2022-0 1-10 00:00: 00 11-20 00:00 :00 No [id number] TAKE ONE (1) TABLET(S) BY MOUTH ONCE A DAY. [facility] TAMSULOSIN 0.4 mg 24 hr capsule 2022-0 1-10 00:00: 00 11-20 00:00 :00 No [id number] 9102 TAKE TWO (2) CAPSULE(S) BY MOUTH ONCE DAILY AT BEDTIME. [facility] LISINOPRIL 2.5 mg tablet 08-18 00:00: 00 11-20 00:00 :00 No [id number] TAKE ONE (1) TABLET(S) BY MOUTH ONCE A DAY. [facility] ROSUVASTATI N 40 mg tablet 08-18 00:00: 00 11-20 00:00 :00 No [id number] TAKE ONE (1) TABLET(S) BY MOUTH ONCE A DAY AT BEDTIME. [facility] FENOFIBRATE 160 mg tablet 08-18 00:00: 00 11-20 00:00 :00 No [id number] TAKE ONE (1) TABLET(S) BY MOUTH ONCE A DAY. [facility] FINASTERIDE 5 mg tablet 08-10 00:00: 00 Yes [id number] 9102 TAKE ONE (1) TABLET(S) BY MOUTH ONCE A DAY. [facility] FINASTERIDE 5 mg tablet 08-10 00:00: 00 Yes [id number] 9102 TAKE ONE (1) TABLET(S) BY MOUTH ONCE A DAY. [facility] TAMSULOSIN 0.4 mg 24 hr capsule 08-10 00:00: 00 Yes [id number] 9102 TAKE TWO (2) CAPSULE(S) BY MOUTH ONCE DAILY AT BEDTIME. [facility] FINASTERIDE 5 mg tablet 08-10 00:00: 00 Yes [id number] 9102 TAKE ONE (1) TABLET(S) BY MOUTH ONCE A DAY. [facility] TAMSULOSIN 0.4 mg 24 hr capsule 0 08-10 00:00: 00 Yes [id number] 9102 TAKE TWO (2) CAPSULE(S) BY MOUTH ONCE DAILY AT BEDTIME. [facility] FINASTERIDE 5 mg tablet 0 08-10 00:00: 00 Yes [id number] 9102 TAKE ONE (1) TABLET(S) BY MOUTH ONCE A DAY. [facility] TAMSULOSIN 0.4 mg 24 hr capsule 2023-0 1-02 00:00: 00 Yes [id number] 9102 TAKE TWO (2) CAPSULE(S) BY MOUTH ONCE DAILY AT BEDTIME. [facility] FINASTERIDE 5 mg tablet 3-0 1-02 00:00: 00 Yes [id number] 9102 TAKE ONE (1) TABLET(S) BY MOUTH ONCE A DAY. [facility] TAMSULOSIN 0.4 mg 24 hr capsule 2023-0 1-02 00:00: 00 Yes [id number] 9102 TAKE TWO (2) CAPSULE(S) BY MOUTH ONCE DAILY AT BEDTIME. [facility] FINASTERIDE 5 mg tablet 3-0 1-02 00:00: 00 Yes [id number] 9102 TAKE ONE (1) TABLET(S) BY MOUTH ONCE A DAY. [facility] TAMSULOSIN 0.4 mg 24 hr capsule 3-0 1-02 00:00: 00 Yes [id number] 9102 TAKE TWO (2) CAPSULE(S) BY MOUTH ONCE DAILY AT BEDTIME. [facility] FINASTERIDE 5 mg tablet 3-0 1-02 00:00: 00 Yes [id number] 9102 TAKE ONE (1) TABLET(S) BY MOUTH ONCE A DAY. [facility] TAMSULOSIN 0.4 mg 24 hr capsule 3-0 1-02 00:00: 00 Yes [id number] 9102 TAKE TWO (2) CAPSULE(S) BY MOUTH ONCE DAILY AT BEDTIME. [facility] FINASTERIDE 5 mg tablet 3-0 1-02 00:00: 00 Yes [id number] 9102 TAKE ONE (1) TABLET(S) BY MOUTH ONCE A DAY. [facility] TAMSULOSIN 0.4 mg 24 hr capsule 3-0 1-02 00:00: 00 Yes [id number] 9102 TAKE TWO (2) CAPSULE(S) BY MOUTH ONCE DAILY AT BEDTIME. [facility] FINASTERIDE 5 mg tablet 2023-0 1-02 00:00: 00 Yes [id number] 9102 TAKE ONE (1) TABLET(S) BY MOUTH ONCE A DAY. [facility] TAMSULOSIN 0.4 mg 24 hr capsule 2023-0 1-02 00:00: 00 Yes [id number] 9102 TAKE TWO (2) CAPSULE(S) BY MOUTH ONCE DAILY AT BEDTIME. [facility] FINASTERIDE 5 mg tablet 2023-0 1-02 00:00: 00 Yes [id number] 9102 TAKE ONE (1) TABLET(S) BY MOUTH ONCE A DAY. [facility] TAMSULOSIN 0.4 mg 24 hr capsule 2023-0 1-02 00:00: 00 Yes [id number] 9102 TAKE TWO (2) CAPSULE(S) BY MOUTH ONCE DAILY AT BEDTIME. [facility] FINASTERIDE 5 mg tablet 3-0 1-02 00:00: 00 Yes [id number] 9102 TAKE ONE (1) TABLET(S) BY MOUTH ONCE A DAY. [facility] TAMSULOSIN 0.4 mg 24 hr capsule 3-0 -02 00:00: 00 Yes [id number] 9102 TAKE TWO (2) CAPSULE(S) BY MOUTH ONCE DAILY AT BEDTIME. [facility] FINASTERIDE 5 mg tablet 3-0 1-02 00:00: 00 Yes [id number] 9102 TAKE ONE (1) TABLET(S) BY MOUTH ONCE A DAY. [facility] TAMSULOSIN 0.4 mg 24 hr capsule 3-0 1-02 00:00: 00 Yes [id number] 9102 TAKE TWO (2) CAPSULE(S) BY MOUTH ONCE DAILY AT BEDTIME. [facility] FINASTERIDE 5 mg tablet 3-0 1-02 00:00: 00 Yes [id number] 9102 TAKE ONE (1) TABLET(S) BY MOUTH ONCE A DAY. [facility] FINASTERIDE 5 mg tablet 3-0 1-02 00:00: 00 Yes [id number] 9102 TAKE ONE (1) TABLET(S) BY MOUTH ONCE A DAY. [facility] FINASTERIDE 5 mg tablet 2023-0 1-02 00:00: 00 Yes [id number] 9102 TAKE ONE (1) TABLET(S) BY MOUTH ONCE A DAY. [facility] FINASTERIDE 5 mg tablet 2023-0 -02 00:00: 00 Yes [id number] 9102 TAKE ONE (1) TABLET(S) BY MOUTH ONCE A DAY. [facility] FINASTERIDE 5 mg tablet 2023-0 -02 00:00: 00 Yes [id number] 9102 TAKE ONE (1) TABLET(S) BY MOUTH ONCE A DAY. [facility] FINASTERIDE 5 mg tablet 2023-0 -02 00:00: 00 Yes [id number] 9102 TAKE ONE (1) TABLET(S) BY MOUTH ONCE A DAY. [facility] FINASTERIDE 5 mg tablet 2023-0 -02 00:00: 00 Yes [id number] 9102 TAKE ONE (1) TABLET(S) BY MOUTH ONCE A DAY. [facility] FINASTERIDE 5 mg tablet 2023-0 -02 00:00: 00 Yes [id number] 9102 TAKE ONE (1) TABLET(S) BY MOUTH ONCE A DAY. [facility] FINASTERIDE 5 mg tablet 2023-0 -02 00:00: 00 Yes [id number] 9102 TAKE ONE (1) TABLET(S) BY MOUTH ONCE A DAY. [facility] FINASTERIDE 5 mg tablet 2023-0 02 00:00: 00 Yes [id number] 9102 TAKE ONE (1) TABLET(S) BY MOUTH ONCE A DAY. [facility] FINASTERIDE 5 mg tablet 2023-0 02 00:00: 00 Yes [id number] 9102 TAKE ONE (1) TABLET(S) BY MOUTH ONCE A DAY. [facility] FINASTERIDE 5 mg tablet 2023-0 02 00:00: 00 Yes [id number] 9102 TAKE ONE (1) TABLET(S) BY MOUTH ONCE A DAY. [facility] FINASTERIDE 5 mg tablet 2023-0 -02 00:00: 00 Yes [id number] 9102 TAKE ONE (1) TABLET(S) BY MOUTH ONCE A DAY. [facility] FINASTERIDE 5 mg tablet 2023-0 -02 00:00: 00 Yes [id number] 9102 TAKE ONE (1) TABLET(S) BY MOUTH ONCE A DAY. [facility] FINASTERIDE 5 mg tablet 2023-0 -02 00:00: 00 Yes [id number] 9102 TAKE ONE (1) TABLET(S) BY MOUTH ONCE A DAY. [facility] FINASTERIDE 5 mg tablet 2023-0 -02 00:00: 00 Yes [id number] 9102 TAKE ONE (1) TABLET(S) BY MOUTH ONCE A DAY. [facility] FINASTERIDE 5 mg tablet 2023-0 -02 00:00: 00 Yes [id number] 9102 TAKE ONE (1) TABLET(S) BY MOUTH ONCE A DAY. [facility] FINASTERIDE 5 mg tablet 2023-0 -02 00:00: 00 Yes [id number] 9102 TAKE ONE (1) TABLET(S) BY MOUTH ONCE A DAY. [facility] FINASTERIDE 5 mg tablet 2023-0 -02 00:00: 00 Yes [id number] 9102 TAKE ONE (1) TABLET(S) BY MOUTH ONCE A DAY. [facility] FINASTERIDE 5 mg tablet 2023-0 -02 00:00: 00 Yes [id number] 9102 TAKE ONE (1) TABLET(S) BY MOUTH ONCE A DAY. [facility] FINASTERIDE 5 mg tablet 3-0 02 00:00: 00 Yes [id number] 9102 TAKE ONE (1) TABLET(S) BY MOUTH ONCE A DAY. [facility] FINASTERIDE 5 mg tablet 2023-0 02 00:00: 00 Yes [id number] 9102 TAKE ONE (1) TABLET(S) BY MOUTH ONCE A DAY. [facility] FINASTERIDE 5 mg tablet 2023-0 -02 00:00: 00 Yes [id number] 9102 TAKE ONE (1) TABLET(S) BY MOUTH ONCE A DAY. [facility] FINASTERIDE 5 mg tablet 2023-0 1-02 00:00: 00 Yes [id number] 9102 TAKE ONE (1) TABLET(S) BY MOUTH ONCE A DAY. [facility] FINASTERIDE 5 mg tablet 2023-0 1-02 00:00: 00 Yes [id number] 9102 TAKE ONE (1) TABLET(S) BY MOUTH ONCE A DAY. [facility] FINASTERIDE 5 mg tablet 2023-0 08-10 00:00: 00 Yes [id number] 9102 TAKE ONE (1) TABLET(S) BY MOUTH ONCE A DAY. [facility] FINASTERIDE 5 mg tablet 2023-0 08-10 00:00: 00 Yes [id number] 9102 TAKE ONE (1) TABLET(S) BY MOUTH ONCE A DAY. [facility] FINASTERIDE 5 mg tablet 2023-0 02 00:00: 00 Yes [id number] 9102 TAKE ONE (1) TABLET(S) BY MOUTH ONCE A DAY. [facility] FINASTERIDE 5 mg tablet 3-0 08-10 00:00: 00 Yes [id number] 9102 TAKE ONE (1) TABLET(S) BY MOUTH ONCE A DAY. [facility] FINASTERIDE 5 mg tablet 2023-0 08-10 00:00: 00 Yes [id number] 9102 TAKE ONE (1) TABLET(S) BY MOUTH ONCE A DAY. [facility] FINASTERIDE 5 mg tablet 2023-0 02 00:00: 00 Yes [id number] 9102 TAKE ONE (1) TABLET(S) BY MOUTH ONCE A DAY. [facility] FINASTERIDE 5 mg tablet 3-0 08-10 00:00: 00 Yes [id number] 9102 TAKE ONE (1) TABLET(S) BY MOUTH ONCE A DAY. [facility] FINASTERIDE 5 mg tablet 3-0 08-10 00:00: 00 Yes [id number] 9102 TAKE ONE (1) TABLET(S) BY MOUTH ONCE A DAY. [facility] FINASTERIDE 5 mg tablet 3-0 02 00:00: 00 Yes [id number] 9102 TAKE ONE (1) TABLET(S) BY MOUTH ONCE A DAY. [facility] FINASTERIDE 5 mg tablet 2023-0 -02 00:00: 00 Yes [id number] 9102 TAKE ONE (1) TABLET(S) BY MOUTH ONCE A DAY. [facility] FINASTERIDE 5 mg tablet 2023-0 08-10 00:00: 00 Yes [id number] 9102 TAKE ONE (1) TABLET(S) BY MOUTH ONCE A DAY. [facility] FINASTERIDE 5 mg tablet 2023-0 02 00:00: 00 Yes [id number] 9102 TAKE ONE (1) TABLET(S) BY MOUTH ONCE A DAY. [facility] FINASTERIDE 5 mg tablet 2023-0 08-10 00:00: 00 Yes [id number] 9102 TAKE ONE (1) TABLET(S) BY MOUTH ONCE A DAY. [facility] FINASTERIDE 5 mg tablet 2023-0 08-10 00:00: 00 Yes [id number] 9102 TAKE ONE (1) TABLET(S) BY MOUTH ONCE A DAY. [facility] FINASTERIDE 5 mg tablet 2023-0 08-10 00:00: 00 Yes [id number] 9102 TAKE ONE (1) TABLET(S) BY MOUTH ONCE A DAY. [facility] FINASTERIDE 5 mg tablet 3-0 08-10 00:00: 00 Yes [id number] 9102 TAKE ONE (1) TABLET(S) BY MOUTH ONCE A DAY. [facility] FINASTERIDE 5 mg tablet 2023-0 08-10 00:00: 00 Yes [id number] 9102 TAKE ONE (1) TABLET(S) BY MOUTH ONCE A DAY. [facility] FINASTERIDE 5 mg tablet 2023-0 08-10 00:00: 00 Yes [id number] 9102 TAKE ONE (1) TABLET(S) BY MOUTH ONCE A DAY. [facility] FINASTERIDE 5 mg tablet 3-0 08-10 00:00: 00 Yes [id number] 9102 TAKE ONE (1) TABLET(S) BY MOUTH ONCE A DAY. [facility] FINASTERIDE 5 mg tablet 2023-0 -02 00:00: 00 Yes [id number] 9102 TAKE ONE (1) TABLET(S) BY MOUTH ONCE A DAY. [facility] FINASTERIDE 5 mg tablet 2023-0 -02 00:00: 00 Yes [id number] 9102 TAKE ONE (1) TABLET(S) BY MOUTH ONCE A DAY. [facility] FINASTERIDE 5 mg tablet 2023-0 02 00:00: 00 Yes [id number] 9102 TAKE ONE (1) TABLET(S) BY MOUTH ONCE A DAY. [facility] FINASTERIDE 5 mg tablet 2023-0 02 00:00: 00 Yes [id number] 9102 TAKE ONE (1) TABLET(S) BY MOUTH ONCE A DAY. [facility] FINASTERIDE 5 mg tablet 3-0 08-10 00:00: 00 Yes [id number] 9102 TAKE ONE (1) TABLET(S) BY MOUTH ONCE A DAY. [facility] FINASTERIDE 5 mg tablet 3-0 08-10 00:00: 00 Yes [id number] 9102 TAKE ONE (1) TABLET(S) BY MOUTH ONCE A DAY. [facility] FINASTERIDE 5 mg tablet 3-0 08-10 00:00: 00 Yes [id number] 9102 TAKE ONE (1) TABLET(S) BY MOUTH ONCE A DAY. [facility] FINASTERIDE 5 mg tablet 3-0 08-10 00:00: 00 Yes [id number] 9102 TAKE ONE (1) TABLET(S) BY MOUTH ONCE A DAY. [facility] FINASTERIDE 5 mg tablet 3-0 08-10 00:00: 00 Yes [id number] 9102 TAKE ONE (1) TABLET(S) BY MOUTH ONCE A DAY. [facility] FINASTERIDE 5 mg tablet 3-0 02 00:00: 00 Yes [id number] 9102 TAKE ONE (1) TABLET(S) BY MOUTH ONCE A DAY. [facility] FINASTERIDE 5 mg tablet 3-0 02 00:00: 00 Yes [id number] 9102 TAKE ONE (1) TABLET(S) BY MOUTH ONCE A DAY. [facility] FINASTERIDE 5 mg tablet 2023-0 08-10 00:00: 00 11-13 00:00 :00 No [id number] 9102 TAKE ONE (1) TABLET(S) BY MOUTH ONCE A DAY. [facility] TAMSULOSIN 0.4 mg 24 hr capsule 1- 00:00: 00 08-18 00:00 :00 No [id number] 9102 TAKE TWO (2) CAPSULE(S) BY MOUTH ONCE DAILY AT BEDTIME. [facility] TAMSULOSIN 0.4 mg 24 hr capsule - 00:00: 00 08-18 00:00 :00 No [id number] 9102 TAKE TWO (2) CAPSULE(S) BY MOUTH ONCE DAILY AT BEDTIME. [facility] bevacizumab -bvzr (ZIRABEV) 500 mg in NaCl 0.9% (NS) 100 mL infusion 2021-08 15:45: 00 07-30 17:25 :00 No [id number] 04 7.5mg/k g 500 mg (rounded from 536.25 mg = 7.5 mg/kg ?71.5 kg Treatment plan Recorded weight), IV Infusion, ONCE, Administer over 30 Minutes, On Wed07/30/22 at 0945, For 1 dose
Sh ould be diluted in 0.9% Sodium Chloride, not D5W. May store diluted solution in refrigerat or for up to 8 hours.&nbs p;Infuse 1st infusion over 90 minutes; 2nd infusion for 60 minutes; subsequent infusions over 30 minutes if well tolerated.
[facility] NaCl 0.9% (NS) IV infusion 500 mL 2021-08 15:45: 00 07-30 16:05 :00 No [id number] 500mL at 1,000 mL/hr, IV Infusion, ONCE, 1 dose, On Wed07/30/22 at 0945, Routine [facility] heparin lock flush (HEPARIN LOCKFLUSH(P ORCINE)(PF) ) 100 unit/mL injection 500 Units 2021-08 15:38: 55 07-31 15:37 :55 No [id number] 500U 500 Units, IV Push, PRN, Starting on Wed07/30/22 at 0938, Until Wed07/31/22 at 0937, Routine [facility] capecitabin e 500 mg tablet 2021-08 00:00: 00 Yes [id number] 04 1500mg Take 3 tablets by mouth 2 (two) times daily. Take 3 tablets in the morning and 3 tablets in the evening for 14 days. Then 7 days off . Take within 30 minutes of finishing a meal. [facility] capecitabin e 500 mg tablet 2021-08 00:00: 00 Yes [id number] 04 1500mg Take 3 tablets by mouth 2 (two) times daily. Take 3 tablets in the morning and 3 tablets in the evening for 14 days. Then 7 days off . Take within 30 minutes of finishing a meal. [facility] capecitabin e 500 mg tablet 2021-08 00:00: 00 Yes [id number] 04 1500mg Take 3 tablets by mouth every morning and evening 14 days. Then 7 days off. Take within 30 minutes of finishing a meal. [facility] capecitabin e 500 mg tablet 2021-08 00:00: 00 Yes [id number] 04 1500mg Take 3 tablets by mouth every morning and evening 14 days. Then 7 days off. Take within 30 minutes of finishing a meal. [facility] capecitabin e 500 mg tablet 2021-08 00:00: 00 Yes [id number] 04 1500mg Take 3 tablets by mouth every morning and evening 14 days. Then 7 days off. Take within 30 minutes of finishing a meal. [facility] capecitabin e 500 mg tablet 2021-08 00:00: 00 Yes [id number] 04 1500mg Take 3 tablets by mouth every morning and evening 14 days. Then 7 days off. Take within 30 minutes of finishing a meal. [facility] capecitabin e 500 mg tablet 2021-08 00:00: 00 Yes [id number] 04 1500mg Take 3 tablets by mouth every morning and evening 14 days. Then 7 days off. Take within 30 minutes of finishing a meal. [facility] capecitabin e 500 mg tablet 2021-08 00:00: 00 Yes [id number] 04 1500mg Take 3 tablets by mouth every morning and evening 14 days. Then 7 days off. Take within 30 minutes of finishing a meal. [facility] capecitabin e 500 mg tablet 2021-08 00:00: 00 Yes [id number] 04 1500mg Take 3 tablets by mouth every morning and evening 14 days. Then 7 days off. Take within 30 minutes of finishing a meal. [facility] capecitabin e 500 mg tablet 2021-08 00:00: 00 Yes [id number] 04 1500mg Take 3 tablets by mouth every morning and evening 14 days. Then 7 days off. Take within 30 minutes of finishing a meal. [facility] capecitabin e 500 mg tablet 2021-08 00:00: 00 Yes [id number] 04 1500mg Take 3 tablets by mouth every morning and evening 14 days. Then 7 days off. Take within 30 minutes of finishing a meal. [facility] capecitabin e 500 mg tablet 2021-08 00:00: 00 Yes [id number] 04 1500mg Take 3 tablets by mouth every morning and evening 14 days. Then 7 days off. Take within 30 minutes of finishing a meal. [facility] capecitabin e 500 mg tablet 2021-08 00:00: 00 Yes [id number] 04 1500mg Take 3 tablets by mouth every morning and evening 14 days. Then 7 days off. Take within 30 minutes of finishing a meal. [facility] capecitabin e 500 mg tablet 2021-08 00:00: 00 Yes [id number] 04 1500mg Take 3 tablets by mouth every morning and evening 14 days. Then 7 days off. Take within 30 minutes of finishing a meal. [facility] capecitabin e 500 mg tablet 2021-08 00:00: 00 Yes [id number] 04 1500mg Take 3 tablets by mouth every morning and evening 14 days. Then 7 days off. Take within 30 minutes of finishing a meal. [facility] capecitabin e 500 mg tablet 2021-08 00:00: 00 Yes [id number] 04 1500mg Take 3 tablets by mouth every morning and evening 14 days. Then 7 days off. Take within 30 minutes of finishing a meal. [facility] capecitabin e 500 mg tablet 2021-08 00:00: 00 Yes [id number] 04 1500mg Take 3 tablets by mouth every morning and evening 14 days. Then 7 days off. Take within 30 minutes of finishing a meal. [facility] capecitabin e 500 mg tablet 2021-08 00:00: 00 Yes [id number] 04 1500mg Take 3 tablets by mouth every morning and evening 14 days. Then 7 days off. Take within 30 minutes of finishing a meal. [facility] capecitabin e 500 mg tablet 2021-08 00:00: 00 Yes [id number] 04 1500mg Take 3 tablets by mouth every morning and evening 14 days. Then 7 days off. Take within 30 minutes of finishing a meal. [facility] capecitabin e 500 mg tablet 2021-08 00:00: 00 Yes [id number] 04 1500mg Take 3 tablets by mouth every morning and evening 14 days. Then 7 days off. Take within 30 minutes of finishing a meal. [facility] capecitabin e 500 mg tablet 2021-08 00:00: 00 Yes [id number] 04 1500mg Take 3 tablets by mouth every morning and evening 14 days. Then 7 days off. Take within 30 minutes of finishing a meal. [facility] capecitabin e 500 mg tablet 2021-08 00:00: 00 Yes [id number] 04 1500mg Take 3 tablets by mouth every morning and evening 14 days. Then 7 days off. Take within 30 minutes of finishing a meal. [facility] capecitabin e 500 mg tablet 2021-08 00:00: 00 Yes [id number] 04 1500mg Take 3 tablets by mouth every morning and evening 14 days. Then 7 days off. Take within 30 minutes of finishing a meal. [facility] capecitabin e 500 mg tablet 2021-08 00:00: 00 Yes [id number] 04 1500mg Take 3 tablets by mouth every morning and evening 14 days. Then 7 days off. Take within 30 minutes of finishing a meal. [facility] capecitabin e 500 mg tablet 2021-08 00:00: 00 Yes [id number] 04 1500mg Take 3 tablets by mouth every morning and evening 14 days. Then 7 days off. Take within 30 minutes of finishing a meal. [facility] capecitabin e 500 mg tablet 2021-08 00:00: 00 Yes [id number] 04 1500mg Take 3 tablets by mouth every morning and evening 14 days. Then 7 days off. Take within 30 minutes of finishing a meal. [facility] capecitabin e 500 mg tablet 2021-08 00:00: 00 Yes [id number] 04 1500mg Take 3 tablets by mouth every morning and evening 14 days. Then 7 days off. Take within 30 minutes of finishing a meal. [facility] capecitabin e 500 mg tablet 2021-08 00:00: 00 Yes [id number] 04 1500mg Take 3 tablets by mouth every morning and evening 14 days. Then 7 days off. Take within 30 minutes of finishing a meal. [facility] capecitabin e 500 mg tablet 2021-08 00:00: 00 Yes [id number] 04 1500mg Take 3 tablets by mouth every morning and evening 14 days. Then 7 days off. Take within 30 minutes of finishing a meal. [facility] capecitabin e 500 mg tablet 2021-08 00:00: 00 Yes [id number] 04 1500mg Take 3 tablets by mouth every morning and evening 14 days. Then 7 days off. Take within 30 minutes of finishing a meal. [facility] capecitabin e 500 mg tablet 2021-08 00:00: 00 Yes [id number] 04 1500mg Take 3 tablets by mouth every morning and evening 14 days. Then 7 days off. Take within 30 minutes of finishing a meal. [facility] capecitabin e 500 mg tablet 2021-08 00:00: 00 Yes [id number] 04 1500mg Take 3 tablets by mouth every morning and evening 14 days. Then 7 days off. Take within 30 minutes of finishing a meal. [facility] capecitabin e 500 mg tablet 2021-08 00:00: 00 Yes [id number] 04 1500mg Take 3 tablets by mouth every morning and evening 14 days. Then 7 days off. Take within 30 minutes of finishing a meal. [facility] capecitabin e 500 mg tablet 2021-08 00:00: 00 Yes [id number] 04 1500mg Take 3 tablets by mouth every morning and evening 14 days. Then 7 days off. Take within 30 minutes of finishing a meal. [facility] iopamidol (ISOVUE 370-500 mL) injection 80 mL 2021-08 14:23: 00 07-23 14:24 :00 No [id number] 04 80mL 80 mL, Intravenou s, ONCE, 1 dose, On Wed07/23/22 at 0845, Routine [facility] bevacizumab -bvzr (ZIRABEV) 500 mg in NaCl 0.9% (NS) 100 mL infusion 2021-08 18:00: 00 07-09 19:40 :00 No [id number] 04 7.5mg/k g 500 mg (rounded from 536.25 mg = 7.5 mg/kg ?71.5 kg Treatment plan Recorded weight), IV Infusion, ONCE, Administer over 30 Minutes, On Wed07/09/22 at 1200, For 1 dose
Sh ould be diluted in 0.9% Sodium Chloride, not D5W. May store diluted solution in refrigerat or for up to 8 hours.&nbs p;Infuse 1st infusion over 90 minutes; 2nd infusion for 60 minutes; subsequent infusions over 30 minutes if well tolerated.
[facility] NaCl 0.9% (NS) IV infusion 500 mL 2021-08 18:00: 00 07-09 18:39 :00 No [id number] 500mL at 1,000 mL/hr, IV Infusion, ONCE, 1 dose, On Wed07/09/22 at 1200, Routine [facility] heparin lock flush (HEPARIN LOCKFLUSH(P ORCINE)(PF) ) 100 unit/mL injection 500 Units 2021-08 17:56: 50 07-10 17:55 :50 No [id number] 500U 500 Units, IV Push, PRN, Starting on Wed07/09/22 at 1156, Until Wed07/10/22 at 1155, Routine [facility] bevacizumab -bvzr (ZIRABEV) 500 mg in NaCl 0.9% (NS) 100 mL infusion 2021-08 17:30: 00 06-03 18:40 :00 No [id number] 7.5mg/k g 500 mg (rounded from 536.25 mg = 7.5 mg/kg ?71.5 kg Treatment plan Recorded weight), IV Infusion, ONCE, Administer over 30 Minutes, On Wed06/03/22 at 1230, For 1 dose
Sh ould be diluted in 0.9% Sodium Chloride, not D5W. May store diluted solution in refrigerat or for up to 8 hours.&nbs p;Infuse 1st infusion over 90 minutes; 2nd infusion for 60 minutes; subsequent infusions over 30 minutes if well tolerated.
[facility] NaCl 0.9% (NS) IV infusion 500 mL 2021-08 17:30: 00 06-03 18:40 :00 No [id number] 500mL at 1,000 mL/hr, IV Infusion, ONCE, 1 dose, On Wed06/03/22 at 1230, Routine [facility] heparin lock flush (HEPARIN LOCKFLUSH(P ORCINE)(PF) ) 100 unit/mL injection 500 Units 2021-08 17:25: 05 06-04 17:24 :05 No [id number] 500U 500 Units, IV Push, PRN, Starting on Wed06/03/22 at 1225, Until Wed06/04/22 at 1224, Routine [facility] capecitabin e 500 mg tablet 2021-08 00:00: 00 Yes [id number] 1000mg Take 2 tablets by mouth 2 (two) times daily. Take 2 tablets in the morning and 2 tablets in the evening for 14 days. Then 7 days off . Take within 30 minutes of finishing a meal. [facility] capecitabin e 500 mg tablet 2021-08 00:00: 00 Yes [id number] 04 1000mg Take 2 tablets by mouth every morning and evening for 14 days. Then 7 days off . Take within 30 minutes of finishing a meal. [facility] capecitabin e 500 mg tablet 2021-08 00:00: 00 Yes [id number] 04 1000mg Take 2 tablets by mouth every morning and evening for 14 days. Then 7 days off . Take within 30 minutes of finishing a meal. [facility] capecitabin e 500 mg tablet 2021-08 00:00: 00 Yes [id number] 04 1000mg Take 2 tablets by mouth every morning and evening for 14 days. Then 7 days off . Take within 30 minutes of finishing a meal. [facility] capecitabin e 500 mg tablet 2021-08 00:00: 00 Yes [id number] 04 1000mg Take 2 tablets by mouth every morning and evening for 14 days. Then 7 days off . Take within 30 minutes of finishing a meal. [facility] capecitabin e 500 mg tablet 2021-08 00:00: 00 Yes [id number] 04 1000mg Take 2 tablets by mouth every morning and evening for 14 days. Then 7 days off . Take within 30 minutes of finishing a meal. [facility] capecitabin e 500 mg tablet 2021-08 00:00: 00 Yes [id number] 04 1000mg Take 2 tablets by mouth every morning and evening for 14 days. Then 7 days off . Take within 30 minutes of finishing a meal. [facility] capecitabin e 500 mg tablet 2021-08 00:00: 00 Yes [id number] 04 1000mg Take 2 tablets by mouth every morning and evening for 14 days. Then 7 days off . Take within 30 minutes of finishing a meal. [facility] capecitabin e 500 mg tablet 2021-08 00:00: 00 Yes [id number] 04 1000mg Take 2 tablets by mouth every morning and evening for 14 days. Then 7 days off . Take within 30 minutes of finishing a meal. [facility] capecitabin e 500 mg tablet 2021-08 00:00: 00 Yes [id number] 04 1000mg Take 2 tablets by mouth every morning and evening for 14 days. Then 7 days off . Take within 30 minutes of finishing a meal. [facility] capecitabin e 500 mg tablet 2021-08 00:00: 00 Yes [id number] 04 1000mg Take 2 tablets by mouth every morning and evening for 14 days. Then 7 days off . Take within 30 minutes of finishing a meal. [facility] capecitabin e 500 mg tablet 2021-08 00:00: 00 Yes [id number] 04 1000mg Take 2 tablets by mouth every morning and evening for 14 days. Then 7 days off . Take within 30 minutes of finishing a meal. [facility] capecitabin e 500 mg tablet 2021-08 00:00: 00 Yes [id number] 04 1000mg Take 2 tablets by mouth every morning and evening for 14 days. Then 7 days off . Take within 30 minutes of finishing a meal. [facility] capecitabin e 500 mg tablet 2021-08 00:00: 00 Yes [id number] 04 1000mg Take 2 tablets by mouth every morning and evening for 14 days. Then 7 days off . Take within 30 minutes of finishing a meal. [facility] capecitabin e 500 mg tablet 2021-08 00:00: 00 07-30 00:00 :00 No [id number] 04 1000mg Take 2 tablets by mouth every morning and evening for 14 days. Then 7 days off . Take within 30 minutes of finishing a meal. [facility] capecitabin e 500 mg tablet 2021-08 00:00: 00 07-30 00:00 :00 No [id number] 04 1000mg Take 2 tablets by mouth every morning and evening for 14 days. Then 7 days off . Take within 30 minutes of finishing a meal. [facility] capecitabin e 500 mg tablet 2021-08 00:00: 00 07-30 00:00 :00 No [id number] 04 1000mg Take 2 tablets by mouth every morning and evening for 14 days. Then 7 days off . Take within 30 minutes of finishing a meal. [facility] capecitabin e 500 mg tablet 2021-08 0- 00:00: 00 07-30 00:00 :00 No [id number] 1000mg Take 2 tablets by mouth every morning and evening for 14 days. Then 7 days off . Take within 30 minutes of finishing a meal. [facility] benzonatate (TESSALON PERLES) capsule 100 mg 2021-08 0-10 03:15: 00 05-18 02:36 :00 No 100mg 100 mg, Oral, ONCE NOW, 1 dose, On 05/17/22 at 2215, JAY [facility] benzonatate 100 mg capsule 2021-08 0- 00:00: 00 Yes [id number] 100mg Take 1 capsule by mouth 3 (three) times daily as needed for Cough. [facility] fluticasone propionate 50 mcg/actuati on nasal spray 2021-08 0 00:00: 00 Yes [id number] 2{spray } Use 2 Sprays in each nostril daily. [facility] benzonatate 100 mg capsule 2021-08 0 00:00: 00 Yes [id number] 100mg Take 1 capsule by mouth 3 (three) times daily as needed for Cough. [facility] fluticasone propionate 50 mcg/actuati on nasal spray 2021-08 0 00:00: 00 Yes [id number] 2{spray } Use 2 Sprays in each nostril daily. [facility] benzonatate 100 mg capsule 2021-08 0- 00:00: 00 Yes [id number] 100mg Take 1 capsule by mouth 3 (three) times daily as needed for Cough. [facility] fluticasone propionate 50 mcg/actuati on nasal spray 2021-08 0- 00:00: 00 Yes [id number] 2{spray } Use 2 Sprays in each nostril daily. [facility] benzonatate 100 mg capsule 2021-08 0- 00:00: 00 Yes [id number] 100mg Take 1 capsule by mouth 3 (three) times daily as needed for Cough. [facility] fluticasone propionate 50 mcg/actuati on nasal spray 2021-08 0 00:00: 00 Yes [id number] 2{spray } Use 2 Sprays in each nostril daily. [facility] benzon[facility] 100 mg capsule 2021-08 0 00:00: 00 Yes [id number] 100mg Take 1 capsule by mouth 3 (three) times daily as needed for Cough. [facility] fluticasone propionate 50 mcg/actuati on nasal spray 2021-08 0 00:00: 00 Yes [id number] 2{spray } Use 2 Sprays in each nostril daily. [facility] benzonatate 100 mg capsule 2021-08 0 00:00: 00 Yes [id number] 100mg Take 1 capsule by mouth 3 (three) times daily as needed for Cough. [facility] fluticasone propionate 50 mcg/actuati on nasal spray 2021-08 0 00:00: 00 Yes [id number] 2{spray } Use 2 Sprays in each nostril daily. [facility] benzonatate 100 mg capsule 2021-08 0 00:00: 00 Yes [id number] 100mg Take 1 capsule by mouth 3 (three) times daily as needed for Cough. [facility] fluticasone propionate 50 mcg/actuati on nasal spray 2021-08 0 00:00: 00 Yes [id number] 2{spray } Use 2 Sprays in each nostril daily. [facility] benzonatate 100 mg capsule 2021-08 0 00:00: 00 Yes [id number] 100mg Take 1 capsule by mouth 3 (three) times daily as needed for Cough. [facility] fluticasone propionate 50 mcg/actuati on nasal spray 2021-08 0 00:00: 00 Yes [id number] 2{spray } Use 2 Sprays in each nostril daily. [facility] benzonatate 100 mg capsule 2021-08 0 00:00: 00 Yes [id number] 100mg Take 1 capsule by mouth 3 (three) times daily as needed for Cough. [facility] fluticasone propionate 50 mcg/actuati on nasal spray 2021-08 0- 00:00: 00 Yes [id number] 2{spray } Use 2 Sprays in each nostril daily. [facility] ben[facility] 100 mg capsule 2021-08 0- 00:00: 00 Yes [id number] 100mg Take 1 capsule by mouth 3 (three) times daily as needed for Cough. [facility] fluticasone propionate 50 mcg/actuati on nasal spray 2021-08 0 00:00: 00 Yes [id number] 2{spray } Use 2 Sprays in each nostril daily. [facility] benzonatate 100 mg capsule 2021-08 0 00:00: 00 Yes [id number] 100mg Take 1 capsule by mouth 3 (three) times daily as needed for Cough. [facility] fluticasone propionate 50 mcg/actuati on nasal spray 2021-08 0 00:00: 00 Yes [id number] 2{spray } Use 2 Sprays in each nostril daily. [facility] benzonatate 100 mg capsule 2021-08 0 00:00: 00 Yes [id number] 100mg Take 1 capsule by mouth 3 (three) times daily as needed for Cough. [facility] fluticasone propionate 50 mcg/actuati on nasal spray 2021-08 0 00:00: 00 Yes [id number] 2{spray } Use 2 Sprays in each nostril daily. [facility] benzonatate 100 mg capsule 2021-08 0 00:00: 00 Yes [id number] 100mg Take 1 capsule by mouth 3 (three) times daily as needed for Cough. [facility] fluticasone propionate 50 mcg/actuati on nasal spray 2021-08 0 00:00: 00 Yes [id number] 2{spray } Use 2 Sprays in each nostril daily. [facility] benzonatate 100 mg capsule 2021-08 0 00:00: 00 Yes [id number] 100mg Take 1 capsule by mouth 3 (three) times daily as needed for Cough. [facility] fluticasone propionate 50 mcg/actuati on nasal spray 2021-08 0- 00:00: 00 Yes [id number] 2{spray } Use 2 Sprays in each nostril daily. [facility] benzonatate 100 mg capsule 2021-08 0 00:00: 00 Yes [id number] 100mg Take 1 capsule by mouth 3 (three) times daily as needed for Cough. [facility] fluticasone propionate 50 mcg/actuati on nasal spray 2021-08 0 00:00: 00 Yes [id number] 2{spray } Use 2 Sprays in each nostril daily. [facility] benzonatate 100 mg capsule 2021-08 0 00:00: 00 Yes [id number] 100mg Take 1 capsule by mouth 3 (three) times daily as needed for Cough. [facility] fluticasone propionate 50 mcg/actuati on nasal spray 2021-08 0 00:00: 00 Yes [id number] 2{spray } Use 2 Sprays in each nostril daily. [facility] benzonatate 100 mg capsule 2021-08 0 00:00: 00 Yes [id number] 100mg Take 1 capsule by mouth 3 (three) times daily as needed for Cough. [facility] fluticasone propionate 50 mcg/actuati on nasal spray 2021-08 0 00:00: 00 Yes [id number] 2{spray } Use 2 Sprays in each nostril daily. [facility] benzonatate 100 mg capsule 2021-08 0 00:00: 00 Yes [id number] 100mg Take 1 capsule by mouth 3 (three) times daily as needed for Cough. [facility] fluticasone propionate 50 mcg/actuati on nasal spray 2021-08 0 00:00: 00 Yes [id number] 2{spray } Use 2 Sprays in each nostril daily. [facility] benzonatate 100 mg capsule 2021-08 0 00:00: 00 Yes [id number] 100mg Take 1 capsule by mouth 3 (three) times daily as needed for Cough. [facility] fluticasone propionate 50 mcg/actuati on nasal spray 2021-08 0 00:00: 00 Yes [id number] 2{spray } Use 2 Sprays in each nostril daily. [facility] benzonatate 100 mg capsule 2021-08 0 00:00: 00 Yes [id number] 100mg Take 1 capsule by mouth 3 (three) times daily as needed for Cough. [facility] fluticasone propionate 50 mcg/actuati on nasal spray 2021-08 0 00:00: 00 Yes [id number] 2{spray } Use 2 Sprays in each nostril daily. [facility] benzonatate 100 mg capsule 2021-08 0 00:00: 00 Yes [id number] 100mg Take 1 capsule by mouth 3 (three) times daily as needed for Cough. [facility] fluticasone propionate 50 mcg/actuati on nasal spray 2021-08 0 00:00: 00 Yes [id number] 2{spray } Use 2 Sprays in each nostril daily. [facility] benzonatate 100 mg capsule 2021-08 0 00:00: 00 Yes [id number] 100mg Take 1 capsule by mouth 3 (three) times daily as needed for Cough. [facility] fluticasone propionate 50 mcg/actuati on nasal spray 2021-08 0 00:00: 00 Yes [id number] 2{spray } Use 2 Sprays in each nostril daily. [facility] benzonatate 100 mg capsule 2021-08 0 00:00: 00 Yes [id number] 100mg Take 1 capsule by mouth 3 (three) times daily as needed for Cough. [facility] fluticasone propionate 50 mcg/actuati on nasal spray 2021-08 0 00:00: 00 Yes [id number] 2{spray } Use 2 Sprays in each nostril daily. [facility] benzonatate 100 mg capsule 2021-08 0 00:00: 00 Yes [id number] 100mg Take 1 capsule by mouth 3 (three) times daily as needed for Cough. [facility] fluticasone propionate 50 mcg/actuati on nasal spray 2021-08 0 00:00: 00 Yes [id number] 2{spray } Use 2 Sprays in each nostril daily. [facility] benzonatate 100 mg capsule 2021-08 0-09 00:00: 00 Yes [id number] 100mg Take 1 capsule by mouth 3 (three) times daily as needed for Cough. [facility] fluticasone propionate 50 mcg/actuati on nasal spray 2021-08 0-09 00:00: 00 Yes [id number] 2{spray } Use 2 Sprays in each nostril daily. [facility] benzonatate 100 mg capsule 2021-08 0- 00:00: 00 Yes [id number] 100mg Take 1 capsule by mouth 3 (three) times daily as needed for Cough. [facility] fluticasone propionate 50 mcg/actuati on nasal spray 2021-08 0 00:00: 00 Yes [id number] 2{spray } Use 2 Sprays in each nostril daily. [facility] benzonatate 100 mg capsule 2021-08 0 00:00: 00 Yes [id number] 100mg Take 1 capsule by mouth 3 (three) times daily as needed for Cough. [facility] fluticasone propionate 50 mcg/actuati on nasal spray 2021-08 0 00:00: 00 Yes [id number] 2{spray } Use 2 Sprays in each nostril daily. [facility] benzonatate 100 mg capsule 2021-08 0 00:00: 00 Yes [id number] 100mg Take 1 capsule by mouth 3 (three) times daily as needed for Cough. [facility] fluticasone propionate 50 mcg/actuati on nasal spray 2021-08 0 00:00: 00 Yes [id number] 2{spray } Use 2 Sprays in each nostril daily. [facility] benzonatate 100 mg capsule 2021-08 0- 00:00: 00 Yes [id number] 100mg Take 1 capsule by mouth 3 (three) times daily as needed for Cough. [facility] fluticasone propionate 50 mcg/actuati on nasal spray 2021-08 0- 00:00: 00 Yes [id number] 2{spray } Use 2 Sprays in each nostril daily. [facility] benzonatate 100 mg capsule 2021-08 0 00:00: 00 Yes [id number] 100mg Take 1 capsule by mouth 3 (three) times daily as needed for Cough. [facility] fluticasone propionate 50 mcg/actuati on nasal spray 2021-08 0 00:00: 00 Yes [id number] 2{spray } Use 2 Sprays in each nostril daily. [facility] benzonatate 100 mg capsule 2021-08 0 00:00: 00 Yes [id number] 100mg Take 1 capsule by mouth 3 (three) times daily as needed for Cough. [facility] fluticasone propionate 50 mcg/actuati on nasal spray 2021-08 0 00:00: 00 Yes [id number] 2{spray } Use 2 Sprays in each nostril daily. [facility] benzonatate 100 mg capsule 2021-08 0 00:00: 00 Yes [id number] 100mg Take 1 capsule by mouth 3 (three) times daily as needed for Cough. [facility] fluticasone propionate 50 mcg/actuati on nasal spray 2021-08 0 00:00: 00 Yes [id number] 2{spray } Use 2 Sprays in each nostril daily. [facility] benzonatate 100 mg capsule 2021-08 0 00:00: 00 Yes [id number] 100mg Take 1 capsule by mouth 3 (three) times daily as needed for Cough. [facility] fluticasone propionate 50 mcg/actuati on nasal spray 2021-08 0 00:00: 00 Yes [id number] 2{spray } Use 2 Sprays in each nostril daily. [facility] benzonatate 100 mg capsule 2021-08 0 00:00: 00 Yes [id number] 100mg Take 1 capsule by mouth 3 (three) times daily as needed for Cough. [facility] fluticasone propionate 50 mcg/actuati on nasal spray 2021-08 0 00:00: 00 Yes [id number] 2{spray } Use 2 Sprays in each nostril daily. [facility] benzonatate 100 mg capsule 2021-08 0 00:00: 00 Yes [id number] 100mg Take 1 capsule by mouth 3 (three) times daily as needed for Cough. [facility] fluticasone propionate 50 mcg/actuati on nasal spray 2021-08 0 00:00: 00 Yes [id number] 2{spray } Use 2 Sprays in each nostril daily. [facility] benzonatate 100 mg capsule 2021-08 0 00:00: 00 Yes [id number] 100mg Take 1 capsule by mouth 3 (three) times daily as needed for Cough. [facility] fluticasone propionate 50 mcg/actuati on nasal spray 2021-08 0 00:00: 00 Yes [id number] 2{spray } Use 2 Sprays in each nostril daily. [facility] benzonatate 100 mg capsule 2021-08 0 00:00: 00 Yes [id number] 100mg Take 1 capsule by mouth 3 (three) times daily as needed for Cough. [facility] fluticasone propionate 50 mcg/actuati on nasal spray 2021-08 0 00:00: 00 Yes [id number] 2{spray } Use 2 Sprays in each nostril daily. [facility] benzonatate 100 mg capsule 2021-08 0 00:00: 00 Yes [id number] 100mg Take 1 capsule by mouth 3 (three) times daily as needed for Cough. [facility] fluticasone propionate 50 mcg/actuati on nasal spray 2021-08 0 00:00: 00 Yes [id number] 2{spray } Use 2 Sprays in each nostril daily. [facility] benzonatate 100 mg capsule 2021-08 0 00:00: 00 Yes [id number] 100mg Take 1 capsule by mouth 3 (three) times daily as needed for Cough. [facility] fluticasone propionate 50 mcg/actuati on nasal spray 2021-08 0 00:00: 00 Yes [id number] 2{spray } Use 2 Sprays in each nostril daily. [facility] benzonatate 100 mg capsule 2021- 0 00:00: 00 Yes [id number] 100mg Take 1 capsule by mouth 3 (three) times daily as needed for Cough. [facility] fluticasone propionate 50 mcg/actuati on nasal spray 2021-08 0 00:00: 00 Yes [id number] 2{spray } Use 2 Sprays in each nostril daily. [facility] benzonatate 100 mg capsule 2021-08 0 00:00: 00 Yes [id number] 100mg Take 1 capsule by mouth 3 (three) times daily as needed for Cough. [facility] fluticasone propionate 50 mcg/actuati on nasal spray 2021-08 0 00:00: 00 Yes [id number] 2{spray } Use 2 Sprays in each nostril daily. [facility] benzonatate 100 mg capsule 2021-08 0 00:00: 00 Yes [id number] 100mg Take 1 capsule by mouth 3 (three) times daily as needed for Cough. [facility] fluticasone propionate 50 mcg/actuati on nasal spray 2021-08 0 00:00: 00 Yes [id number] 2{spray } Use 2 Sprays in each nostril daily. [facility] benzonatate 100 mg capsule 2021-08 0 00:00: 00 Yes [id number] 100mg Take 1 capsule by mouth 3 (three) times daily as needed for Cough. [facility] fluticasone propionate 50 mcg/actuati on nasal spray 2021-08 0 00:00: 00 Yes [id number] 2{spray } Use 2 Sprays in each nostril daily. [facility] benzonatate 100 mg capsule 2021-08 0 00:00: 00 Yes [id number] 100mg Take 1 capsule by mouth 3 (three) times daily as needed for Cough. [facility] fluticasone propionate 50 mcg/actuati on nasal spray 2021-08 0 00:00: 00 Yes [id number] 2{spray } Use 2 Sprays in each nostril daily. [facility] benzonatate 100 mg capsule 2021- 0- 00:00: 00 Yes [id number] 100mg Take 1 capsule by mouth 3 (three) times daily as needed for Cough. [facility] fluticasone propionate 50 mcg/actuati on nasal spray 2021-08 0 00:00: 00 Yes [id number] 2{spray } Use 2 Sprays in each nostril daily. [facility] benzonatate 100 mg capsule 2021-08 0 00:00: 00 Yes [id number] 100mg Take 1 capsule by mouth 3 (three) times daily as needed for Cough. [facility] fluticasone propionate 50 mcg/actuati on nasal spray 2021-08 0 00:00: 00 Yes [id number] 2{spray } Use 2 Sprays in each nostril daily. [facility] benzonatate 100 mg capsule 2021-08 0 00:00: 00 Yes [id number] 100mg Take 1 capsule by mouth 3 (three) times daily as needed for Cough. [facility] fluticasone propionate 50 mcg/actuati on nasal spray 2021-08 0 00:00: 00 Yes [id number] 2{spray } Use 2 Sprays in each nostril daily. [facility] benzonatate 100 mg capsule 2021-08 0 00:00: 00 Yes [id number] 100mg Take 1 capsule by mouth 3 (three) times daily as needed for Cough. [facility] fluticasone propionate 50 mcg/actuati on nasal spray 2021-08 0 00:00: 00 Yes [id number] 2{spray } Use 2 Sprays in each nostril daily. [facility] benzonatate 100 mg capsule 2021-08 0 00:00: 00 Yes [id number] 100mg Take 1 capsule by mouth 3 (three) times daily as needed for Cough. [facility] fluticasone propionate 50 mcg/actuati on nasal spray 2021-08 0 00:00: 00 Yes [id number] 2{spray } Use 2 Sprays in each nostril daily. [facility] benzonatate 100 mg capsule 2021-08 0- 00:00: 00 Yes [id number] 100mg Take 1 capsule by mouth 3 (three) times daily as needed for Cough. [facility] fluticasone propionate 50 mcg/actuati on nasal spray 2021-08 0 00:00: 00 Yes [id number] 2{spray } Use 2 Sprays in each nostril daily. [facility] benzonatate 100 mg capsule 2021-08 0- 00:00: 00 Yes [id number] 100mg Take 1 capsule by mouth 3 (three) times daily as needed for Cough. [facility] fluticasone propionate 50 mcg/actuati on nasal spray 2021-08 0 00:00: 00 Yes [id number] 2{spray } Use 2 Sprays in each nostril daily. [facility] benzonatate 100 mg capsule 2021-08 0 00:00: 00 Yes [id number] 100mg Take 1 capsule by mouth 3 (three) times daily as needed for Cough. [facility] fluticasone propionate 50 mcg/actuati on nasal spray 2021-08 0 00:00: 00 Yes [id number] 2{spray } Use 2 Sprays in each nostril daily. [facility] benzonatate 100 mg capsule 2021-08 0 00:00: 00 Yes [id number] 100mg Take 1 capsule by mouth 3 (three) times daily as needed for Cough. [facility] fluticasone propionate 50 mcg/actuati on nasal spray 2021-08 0 00:00: 00 Yes [id number] 2{spray } Use 2 Sprays in each nostril daily. [facility] benzonatate 100 mg capsule 2021-08 0 00:00: 00 Yes [id number] 100mg Take 1 capsule by mouth 3 (three) times daily as needed for Cough. [facility] fluticasone propionate 50 mcg/actuati on nasal spray 2021-08 0 00:00: 00 Yes [id number] 2{spray } Use 2 Sprays in each nostril daily. [facility] benzonatate 100 mg capsule 2021-08 0 00:00: 00 Yes [id number] 100mg Take 1 capsule by mouth 3 (three) times daily as needed for Cough. [facility] fluticasone propionate 50 mcg/actuati on nasal spray 2021-08 0 00:00: 00 Yes [id number] 2{spray } Use 2 Sprays in each nostril daily. [facility] benzonatate 100 mg capsule 2021-08 0 00:00: 00 Yes [id number] 100mg Take 1 capsule by mouth 3 (three) times daily as needed for Cough. [facility] fluticasone propionate 50 mcg/actuati on nasal spray 2021-08 0 00:00: 00 Yes [id number] 2{spray } Use 2 Sprays in each nostril daily. [facility] mg capsule 2021-08 0 00:00: 00 Yes [id number] 100mg Take 1 capsule by mouth 3 (three) times daily as needed for Cough. [facility] fluticasone propionate 50 mcg/actuati on nasal spray 2021-08 0 00:00: 00 Yes [id number] 2{spray } Use 2 Sprays in each nostril daily. [facility] benzonatate 100 mg capsule 2021-08 0 00:00: 00 Yes [id number] 100mg Take 1 capsule by mouth 3 (three) times daily as needed for Cough. [facility] fluticasone propionate 50 mcg/actuati on nasal spray 2021-08 0 00:00: 00 Yes [id number] 2{spray } Use 2 Sprays in each nostril daily. [facility] benzonatate 100 mg capsule 2021-08 0 00:00: 00 Yes [id number] 100mg Take 1 capsule by mouth 3 (three) times daily as needed for Cough. [facility] fluticasone propionate 50 mcg/actuati on nasal spray 2021-08 0 00:00: 00 Yes [id number] 2{spray } Use 2 Sprays in each nostril daily. [facility] benzonatate 100 mg capsule 2021-08 0 00:00: 00 Yes [id number] 100mg Take 1 capsule by mouth 3 (three) times daily as needed for Cough. [facility] fluticasone propionate 50 mcg/actuati on nasal spray 2021-08 0 00:00: 00 Yes [id number] 2{spray } Use 2 Sprays in each nostril daily. [facility] benzonatate 100 mg capsule 2021-08 0- 00:00: 00 Yes [id number] 100mg Take 1 capsule by mouth 3 (three) times daily as needed for Cough. [facility] fluticasone propionate 50 mcg/actuati on nasal spray 2021-08 0 00:00: 00 Yes [id number] 2{spray } Use 2 Sprays in each nostril daily. [facility] benzonatate 100 mg capsule 2021-08 0 00:00: 00 Yes [id number] 100mg Take 1 capsule by mouth 3 (three) times daily as needed for Cough. [facility] fluticasone propionate 50 mcg/actuati on nasal spray 2021-08 0 00:00: 00 Yes [id number] 2{spray } Use 2 Sprays in each nostril daily. [facility] benzonatate 100 mg capsule 2021-08 0 00:00: 00 Yes [id number] 100mg Take 1 capsule by mouth 3 (three) times daily as needed for Cough. [facility] fluticasone propionate 50 mcg/actuati on nasal spray 2021-08 0 00:00: 00 Yes [id number] 2{spray } Use 2 Sprays in each nostril daily. [facility] benzonatate 100 mg capsule 2021-08 0 00:00: 00 Yes [id number] 100mg Take 1 capsule by mouth 3 (three) times daily as needed for Cough. [facility] fluticasone propionate 50 mcg/actuati on nasal spray 2021-08 0 00:00: 00 Yes [id number] 2{spray } Use 2 Sprays in each nostril daily. [facility] benzonatate 100 mg capsule 2021-08 0 00:00: 00 Yes [id number] 100mg Take 1 capsule by mouth 3 (three) times daily as needed for Cough. [facility] fluticasone propionate 50 mcg/actuati on nasal spray 2021-08 0- 00:00: 00 Yes [id number] 2{spray } Use 2 Sprays in each nostril daily. [facility] mg capsule 2021-08 0 00:00: 00 Yes [id number] 100mg Take 1 capsule by mouth 3 (three) times daily as needed for Cough. [facility] fluticasone propionate 50 mcg/actuati on nasal spray 2021-08 0 00:00: 00 Yes [id number] 2{spray } Use 2 Sprays in each nostril daily. [facility] benzonatate 100 mg capsule 2021-08 0 00:00: 00 Yes [id number] 100mg Take 1 capsule by mouth 3 (three) times daily as needed for Cough. [facility] fluticasone propionate 50 mcg/actuati on nasal spray 2021-08 0 00:00: 00 Yes [id number] 2{spray } Use 2 Sprays in each nostril daily. [facility] benzonatate 100 mg capsule 2021-08 0 00:00: 00 Yes [id number] 100mg Take 1 capsule by mouth 3 (three) times daily as needed for Cough. [facility] fluticasone propionate 50 mcg/actuati on nasal spray 2021-08 0 00:00: 00 Yes [id number] 2{spray } Use 2 Sprays in each nostril daily. [facility] benzonatate 100 mg capsule 2021-08 0 00:00: 00 Yes [id number] 100mg Take 1 capsule by mouth 3 (three) times daily as needed for Cough. [facility] fluticasone propionate 50 mcg/actuati on nasal spray 2021-08 0 00:00: 00 Yes [id number] 2{spray } Use 2 Sprays in each nostril daily. [facility] benzonatate 100 mg capsule 2021-08 0 00:00: 00 Yes [id number] 100mg Take 1 capsule by mouth 3 (three) times daily as needed for Cough. [facility] fluticasone propionate 50 mcg/actuati on nasal spray 2021-08 0 00:00: 00 Yes [id number] 2{spray } Use 2 Sprays in each nostril daily. [facility] benzonatate 100 mg capsule 2021-08 0 00:00: 00 Yes [id number] 100mg Take 1 capsule by mouth 3 (three) times daily as needed for Cough. [facility] fluticasone propionate 50 mcg/actuati on nasal spray 2021-08 0 00:00: 00 Yes [id number] 2{spray } Use 2 Sprays in each nostril daily. [facility] benzonatate 100 mg capsule 2021-08 0 00:00: 00 Yes [id number] 100mg Take 1 capsule by mouth 3 (three) times daily as needed for Cough. [facility] fluticasone propionate 50 mcg/actuati on nasal spray 2021-08 0 00:00: 00 Yes [id number] 2{spray } Use 2 Sprays in each nostril daily. [facility] benzonatate 100 mg capsule 2021-08 0 00:00: 00 Yes [id number] 100mg Take 1 capsule by mouth 3 (three) times daily as needed for Cough. [facility] fluticasone propionate 50 mcg/actuati on nasal spray 2021-08 0 00:00: 00 Yes [id number] 2{spray } Use 2 Sprays in each nostril daily. [facility] benzonatate 100 mg capsule 2021-08 0 00:00: 00 Yes [id number] 100mg Take 1 capsule by mouth 3 (three) times daily as needed for Cough. [facility] fluticasone propionate 50 mcg/actuati on nasal spray 2021-08 0 00:00: 00 Yes [id number] 2{spray } Use 2 Sprays in each nostril daily. [facility] benzonatate 100 mg capsule 2021-08 0 00:00: 00 Yes [id number] 100mg Take 1 capsule by mouth 3 (three) times daily as needed for Cough. [facility] fluticasone propionate 50 mcg/actuati on nasal spray 2021-08 0 00:00: 00 Yes [id number] 2{spray } Use 2 Sprays in each nostril daily. [facility] benzonatate 100 mg capsule 2021-08 0 00:00: 00 Yes [id number] 100mg Take 1 capsule by mouth 3 (three) times daily as needed for Cough. [facility] fluticasone propionate 50 mcg/actuati on nasal spray 2021-08 0 00:00: 00 Yes [id number] 2{spray } Use 2 Sprays in each nostril daily. [facility] 100 mg capsule 2021-08 0 00:00: 00 Yes [id number] 100mg Take 1 capsule by mouth 3 (three) times daily as needed for Cough. [facility] fluticasone propionate 50 mcg/actuati on nasal spray 2021-08 0 00:00: 00 Yes [id number] 2{spray } Use 2 Sprays in each nostril daily. [facility] benzonatate 100 mg capsule 2021-08 0 00:00: 00 Yes [id number] 100mg Take 1 capsule by mouth 3 (three) times daily as needed for Cough. [facility] fluticasone propionate 50 mcg/actuati on nasal spray 2021-08 0 00:00: 00 Yes [id number] 2{spray } Use 2 Sprays in each nostril daily. [facility] benzonatate 100 mg capsule 2021-08 0 00:00: 00 Yes [id number] 100mg Take 1 capsule by mouth 3 (three) times daily as needed for Cough. [facility] fluticasone propionate 50 mcg/actuati on nasal spray 2021-08 0 00:00: 00 Yes [id number] 2{spray } Use 2 Sprays in each nostril daily. [facility] benzonatate 100 mg capsule 2021-08 0 00:00: 00 Yes [id number] 100mg Take 1 capsule by mouth 3 (three) times daily as needed for Cough. [facility] fluticasone propionate 50 mcg/actuati on nasal spray 2021-08 0- 00:00: 00 Yes [id number] 2{spray } Use 2 Sprays in each nostril daily. [facility] benzonatate 100 mg capsule 2021-08 0 00:00: 00 Yes [id number] 100mg Take 1 capsule by mouth 3 (three) times daily as needed for Cough. [facility] fluticasone propionate 50 mcg/actuati on nasal spray 2021-08 0 00:00: 00 Yes [id number] 2{spray } Use 2 Sprays in each nostril daily. [facility] benzonatate 100 mg capsule 2021-08 0 00:00: 00 Yes [id number] 100mg Take 1 capsule by mouth 3 (three) times daily as needed for Cough. [facility] fluticasone propionate 50 mcg/actuati on nasal spray 2021-08 0 00:00: 00 Yes [id number] 2{spray } Use 2 Sprays in each nostril daily. [facility] benzonatate 100 mg capsule 2021-08 0 00:00: 00 Yes [id number] 100mg Take 1 capsule by mouth 3 (three) times daily as needed for Cough. [facility] fluticasone propionate 50 mcg/actuati on nasal spray 2021-08 0 00:00: 00 Yes [id number] 2{spray } Use 2 Sprays in each nostril daily. [facility] benzonatate 100 mg capsule 2021-08 0 00:00: 00 Yes [id number] 100mg Take 1 capsule by mouth 3 (three) times daily as needed for Cough. [facility] fluticasone propionate 50 mcg/actuati on nasal spray 2021-08 0 00:00: 00 Yes [id number] 2{spray } Use 2 Sprays in each nostril daily. [facility] benzonatate 100 mg capsule 2021-08 0 00:00: 00 Yes [id number] 100mg Take 1 capsule by mouth 3 (three) times daily as needed for Cough. [facility] fluticasone propionate 50 mcg/actuati on nasal spray 2021-08 0 00:00: 00 Yes [id number] 2{spray } Use 2 Sprays in each nostril daily. [facility] benzonatate 100 mg capsule 2021- 0 00:00: 00 Yes [id number] 100mg Take 1 capsule by mouth 3 (three) times daily as needed for Cough. [facility] fluticasone propionate 50 mcg/actuati on nasal spray 2021-08 0 00:00: 00 Yes [id number] 2{spray } Use 2 Sprays in each nostril daily. [facility] benzonatate 100 mg capsule 2021-08 0 00:00: 00 Yes [id number] 100mg Take 1 capsule by mouth 3 (three) times daily as needed for Cough. [facility] fluticasone propionate 50 mcg/actuati on nasal spray 2021-08 0 00:00: 00 Yes [id number] 2{spray } Use 2 Sprays in each nostril daily. [facility] benzonatate 100 mg capsule 2021-08 0 00:00: 00 Yes [id number] 100mg Take 1 capsule by mouth 3 (three) times daily as needed for Cough. [facility] fluticasone propionate 50 mcg/actuati on nasal spray 2021-08 0 00:00: 00 Yes [id number] 2{spray } Use 2 Sprays in each nostril daily. [facility] benzonatate 100 mg capsule 2021-08 0 00:00: 00 Yes [id number] 100mg Take 1 capsule by mouth 3 (three) times daily as needed for Cough. [facility] fluticasone propionate 50 mcg/actuati on nasal spray 2021-08 0 00:00: 00 Yes [id number] 2{spray } Use 2 Sprays in each nostril daily. [facility] benzonatate 100 mg capsule 2021-08 0 00:00: 00 Yes [id number] 100mg Take 1 capsule by mouth 3 (three) times daily as needed for Cough. [facility] fluticasone propionate 50 mcg/actuati on nasal spray 2021-08 0 00:00: 00 Yes [id number] 2{spray } Use 2 Sprays in each nostril daily. [facility] benzonatate 100 mg capsule 2021- 0 00:00: 00 Yes [id number] 100mg Take 1 capsule by mouth 3 (three) times daily as needed for Cough. [facility] fluticasone propionate 50 mcg/actuati on nasal spray 2021-08 0 00:00: 00 Yes [id number] 2{spray } Use 2 Sprays in each nostril daily. [facility] benzonatate 100 mg capsule 2021-08 0 00:00: 00 Yes [id number] 100mg Take 1 capsule by mouth 3 (three) times daily as needed for Cough. [facility] fluticasone propionate 50 mcg/actuati on nasal spray 2021-08 0 00:00: 00 Yes [id number] 2{spray } Use 2 Sprays in each nostril daily. [facility] benzonatate 100 mg capsule 2021-08 0 00:00: 00 Yes [id number] 100mg Take 1 capsule by mouth 3 (three) times daily as needed for Cough. [facility] fluticasone propionate 50 mcg/actuati on nasal spray 2021-08 0 00:00: 00 Yes [id number] 2{spray } Use 2 Sprays in each nostril daily. [facility] benzonatate 100 mg capsule 2021-08 0 00:00: 00 Yes [id number] 100mg Take 1 capsule by mouth 3 (three) times daily as needed for Cough. [facility] fluticasone propionate 50 mcg/actuati on nasal spray 2021-08 0 00:00: 00 Yes [id number] 2{spray } Use 2 Sprays in each nostril daily. [facility] benzonatate 100 mg capsule 2021-08 0 00:00: 00 Yes [id number] 100mg Take 1 capsule by mouth 3 (three) times daily as needed for Cough. [facility] fluticasone propionate 50 mcg/actuati on nasal spray 2021-08 0 00:00: 00 Yes [id number] 2{spray } Use 2 Sprays in each nostril daily. [facility] benzonatate 100 mg capsule 2021-08 0- 00:00: 00 Yes [id number] 100mg Take 1 capsule by mouth 3 (three) times daily as needed for Cough[facility] fluticasone propionate 50 mcg/actuati on nasal spray 2021-08 0 00:00: 00 Yes [id number] 2{spray } Use 2 Sprays in each nostril daily. [facility] benzonatate 100 mg capsule 2021-08 0 00:00: 00 Yes [id number] 100mg Take 1 capsule by mouth 3 (three) times daily as needed for Cough. [facility] fluticasone propionate 50 mcg/actuati on nasal spray 2021-08 0 00:00: 00 Yes [id number] 2{spray } Use 2 Sprays in each nostril daily. [facility] benzonatate 100 mg capsule 2021-08 0 00:00: 00 Yes [id number] 100mg Take 1 capsule by mouth 3 (three) times daily as needed for Cough. [facility] fluticasone propionate 50 mcg/actuati on nasal spray 2021-08 0 00:00: 00 Yes [id number] 2{spray } Use 2 Sprays in each nostril daily. [facility] benzonatate 100 mg capsule 2021-08 0 00:00: 00 Yes [id number] 100mg Take 1 capsule by mouth 3 (three) times daily as needed for Cough. [facility] fluticasone propionate 50 mcg/actuati on nasal spray 2021-08 0 00:00: 00 Yes [id number] 2{spray } Use 2 Sprays in each nostril daily. [facility] benzonatate 100 mg capsule 2021-08 0 00:00: 00 Yes [id number] 100mg Take 1 capsule by mouth 3 (three) times daily as needed for Cough. [facility] fluticasone propionate 50 mcg/actuati on nasal spray 2021-08 0 00:00: 00 Yes [id number] 2{spray } Use 2 Sprays in each nostril daily. [facility] benzonatate 100 mg capsule 2021-08 0 00:00: 00 Yes [id number] 100mg Take 1 capsule by mouth 3 (three) times daily as needed for Cough. [facility] fluticasone propionate 50 mcg/actuati on nasal spray 2021-08 0 00:00: 00 Yes [id number] 2{spray } Use 2 Sprays in each nostril daily. [facility] ben[facility] 100 mg capsule 2021-08 0- 00:00: 00 Yes [id number] 100mg Take 1 capsule by mouth 3 (three) times daily as needed for Cough. [facility] fluticasone propionate 50 mcg/actuati on nasal spray 2021-08 0 00:00: 00 Yes [id number] 2{spray } Use 2 Sprays in each nostril daily. [facility] benzonatate 100 mg capsule 2021-08 0 00:00: 00 Yes [id number] 100mg Take 1 capsule by mouth 3 (three) times daily as needed for Cough. [facility] fluticasone propionate 50 mcg/actuati on nasal spray 2021-08 0 00:00: 00 Yes [id number] 2{spray } Use 2 Sprays in each nostril daily. [facility] benzonatate 100 mg capsule 2021-08 0 00:00: 00 Yes [id number] 100mg Take 1 capsule by mouth 3 (three) times daily as needed for Cough. [facility] fluticasone propionate 50 mcg/actuati on nasal spray 2021-08 0 00:00: 00 Yes [id number] 2{spray } Use 2 Sprays in each nostril daily. [facility] benzonatate 100 mg capsule 2021-08 0 00:00: 00 Yes [id number] 100mg Take 1 capsule by mouth 3 (three) times daily as needed for Cough. [facility] fluticasone propionate 50 mcg/actuati on nasal spray 2021-08 0 00:00: 00 Yes [id number] 2{spray } Use 2 Sprays in each nostril daily. [facility] benzonatate 100 mg capsule 2021-08 0 00:00: 00 Yes [id number] 100mg Take 1 capsule by mouth 3 (three) times daily as needed for Cough. [facility] fluticasone propionate 50 mcg/actuati on nasal spray 2021-08 0 00:00: 00 Yes [id number] 2{spray } Use 2 Sprays in each nostril daily. [facility] benzonatate 100 mg capsule 2021-08 0 00:00: 00 Yes [id number] 100mg Take 1 capsule by mouth 3 (three) times daily as needed for Cough. [facility] fluticasone propionate 50 mcg/actuati on nasal spray 2021-08 0 00:00: 00 Yes [id number] 2{spray } Use 2 Sprays in each nostril daily. [facility] ben[facility] 100 mg capsule 2021-08 0 00:00: 00 Yes [id number] 100mg Take 1 capsule by mouth 3 (three) times daily as needed for Cough. [facility] fluticasone propionate 50 mcg/actuati on nasal spray 2021-08 0 00:00: 00 Yes [id number] 2{spray } Use 2 Sprays in each nostril daily. [facility] benzon[facility]ate 100 mg capsule 2021-08 0 00:00: 00 Yes [id number] 100mg Take 1 capsule by mouth 3 (three) times daily as needed for Cough. [facility] fluticasone propionate 50 mcg/actuati on nasal spray 2021-08 0 00:00: 00 Yes [id number] 2{spray } Use 2 Sprays in each nostril daily. [facility] benzonatate 100 mg capsule 2021-08 0 00:00: 00 Yes [id number] 100mg Take 1 capsule by mouth 3 (three) times daily as needed for Cough. [facility] fluticasone propionate 50 mcg/actuati on nasal spray 2021-08 0 00:00: 00 Yes [id number] 2{spray } Use 2 Sprays in each nostril daily. [facility] benzon[facility]ate 100 mg capsule 2021-08 0 00:00: 00 Yes [id number] 100mg Take 1 capsule by mouth 3 (three) times daily as needed for Cough. [facility] fluticasone propionate 50 mcg/actuati on nasal spray 2021-08 0 00:00: 00 Yes [id number] 2{spray } Use 2 Sprays in each nostril daily. [facility] benzonatate 100 mg capsule 2021-08 0 00:00: 00 Yes [id number] 100mg Take 1 capsule by mouth 3 (three) times daily as needed for Cough. [facility] fluticasone propionate 50 mcg/actuati on nasal spray 2021-08 0 00:00: 00 Yes [id number] 2{spray } Use 2 Sprays in each nostril daily. [facility] benzonatate 100 mg capsule 2021-08 0 00:00: 00 Yes [id number] 100mg Take 1 capsule by mouth 3 (three) times daily as needed for Cough. [facility] fluticasone propionate 50 mcg/actuati on nasal spray 2021-08 0 00:00: 00 Yes [id number] 2{spray } Use 2 Sprays in each nostril daily. [facility] benzonatate 100 mg capsule 2021-08 0 00:00: 00 Yes [id number] 100mg Take 1 capsule by mouth 3 (three) times daily as needed for Cough. [facility] fluticasone propionate 50 mcg/actuati on nasal spray 2021-08 0 00:00: 00 Yes [id number] 2{spray } Use 2 Sprays in each nostril daily. [facility] benzonatate 100 mg capsule 2021-08 0 00:00: 00 Yes [id number] 100mg Take 1 capsule by mouth 3 (three) times daily as needed for Cough. [facility] fluticasone propionate 50 mcg/actuati on nasal spray 2021-08 0 00:00: 00 Yes [id number] 2{spray } Use 2 Sprays in each nostril daily. [facility] benzonatate 100 mg capsule 2021-08 0 00:00: 00 Yes [id number] 100mg Take 1 capsule by mouth 3 (three) times daily as needed for Cough. [facility] fluticasone propionate 50 mcg/actuati on nasal spray 2021-08 0 00:00: 00 Yes [id number] 2{spray } Use 2 Sprays in each nostril daily. [facility] ben[facility] 100 mg capsule 2021-08 0 00:00: 00 Yes [id number] 100mg Take 1 capsule by mouth 3 (three) times daily as needed for Cough. [facility] fluticasone propionate 50 mcg/actuati on nasal spray 2021-08 0 00:00: 00 Yes [id number] 2{spray } Use 2 Sprays in each nostril daily. [facility] benzonatate 100 mg capsule 2021-08 0 00:00: 00 Yes [id number] 100mg Take 1 capsule by mouth 3 (three) times daily as needed for Cough. [facility] fluticasone propionate 50 mcg/actuati on nasal spray 2021-08 0 00:00: 00 Yes [id number] 2{spray } Use 2 Sprays in each nostril daily. [facility] benzonatate 100 mg capsule 2021-08 0 00:00: 00 Yes [id number] 100mg Take 1 capsule by mouth 3 (three) times daily as needed for Cough. [facility] fluticasone propionate 50 mcg/actuati on nasal spray 2021-08 0 00:00: 00 Yes [id number] 2{spray } Use 2 Sprays in each nostril daily. [facility] benzonatate 100 mg capsule 2021-08 0 00:00: 00 Yes [id number] 100mg Take 1 capsule by mouth 3 (three) times daily as needed for Cough. [facility] fluticasone propionate 50 mcg/actuati on nasal spray 2021-08 0 00:00: 00 Yes [id number] 2{spray } Use 2 Sprays in each nostril daily. [facility] benzonatate 100 mg capsule 2021-08 0 00:00: 00 Yes [id number] 100mg Take 1 capsule by mouth 3 (three) times daily as needed for Cough. [facility] fluticasone propionate 50 mcg/actuati on nasal spray 2021-08 0 00:00: 00 Yes [id number] 2{spray } Use 2 Sprays in each nostril daily. [facility] benzonatate 100 mg capsule 2021-08 0 00:00: 00 Yes [id number] 100mg Take 1 capsule by mouth 3 (three) times daily as needed for Cough. [facility] fluticasone propionate 50 mcg/actuati on nasal spray 2021-08 0 00:00: 00 Yes [id number] 2{spray } Use 2 Sprays in each nostril daily. [facility] benzonatate 100 mg capsule 2021-08 0 00:00: 00 Yes [id number] 100mg Take 1 capsule by mouth 3 (three) times daily as needed for Cough. [facility] fluticasone propionate 50 mcg/actuati on nasal spray 2021-08 0 00:00: 00 Yes [id number] 2{spray } Use 2 Sprays in each nostril daily. [facility] benzonatate 100 mg capsule 2021-08 0 00:00: 00 Yes [id number] 100mg Take 1 capsule by mouth 3 (three) times daily as needed for Cough. [facility] fluticasone propionate 50 mcg/actuati on nasal spray 2021-08 0 00:00: 00 Yes [id number] 2{spray } Use 2 Sprays in each nostril daily. [facility] benzonatate 100 mg capsule 2021-08 0 00:00: 00 Yes [id number] 100mg Take 1 capsule by mouth 3 (three) times daily as needed for Cough. [facility] fluticasone propionate 50 mcg/actuati on nasal spray 2021-08 0 00:00: 00 Yes [id number] 2{spray } Use 2 Sprays in each nostril daily. [facility] benzonatate 100 mg capsule 2021-08 0 00:00: 00 Yes [id number] 100mg Take 1 capsule by mouth 3 (three) times daily as needed for Cough. [facility] fluticasone propionate 50 mcg/actuati on nasal spray 2021-08 0 00:00: 00 Yes [id number] 2{spray } Use 2 Sprays in each nostril daily. [facility] benzonatate 100 mg capsule 2021-08 0 00:00: 00 Yes [id number] 100mg Take 1 capsule by mouth 3 (three) times daily as needed for Cough. [facility] fluticasone propionate 50 mcg/actuati on nasal spray 2021-08 0 00:00: 00 Yes [id number] 2{spray } Use 2 Sprays in each nostril daily. [facility] ben[facility] 100 mg capsule 2021-08 0 00:00: 00 Yes [id number] 100mg Take 1 capsule by mouth 3 (three) times daily as needed for Cough. [facility] fluticasone propionate 50 mcg/actuati on nasal spray 2021-08 0 00:00: 00 Yes [id number] 2{spray } Use 2 Sprays in each nostril daily. [facility] benzonatate 100 mg capsule 2021-08 0 00:00: 00 Yes [id number] 100mg Take 1 capsule by mouth 3 (three) times daily as needed for Cough. [facility] fluticasone propionate 50 mcg/actuati on nasal spray 2021-08 0 00:00: 00 Yes [id number] 2{spray } Use 2 Sprays in each nostril daily. [facility] benzonatate 100 mg capsule 2021-08 0 00:00: 00 Yes [id number] 100mg Take 1 capsule by mouth 3 (three) times daily as needed for Cough. [facility] fluticasone propionate 50 mcg/actuati on nasal spray 2021-08 0 00:00: 00 Yes [id number] 2{spray } Use 2 Sprays in each nostril daily. [facility] benzonatate 100 mg capsule 2021-08 0 00:00: 00 Yes [id number] 100mg Take 1 capsule by mouth 3 (three) times daily as needed for Cough. [facility] fluticasone propionate 50 mcg/actuati on nasal spray 2021-08 0 00:00: 00 Yes [id number] 2{spray } Use 2 Sprays in each nostril daily. [facility] benzonatate 100 mg capsule 2021-08 0 00:00: 00 Yes [id number] 100mg Take 1 capsule by mouth 3 (three) times daily as needed for Cough. [facility] fluticasone propionate 50 mcg/actuati on nasal spray 2021-08 0 00:00: 00 Yes [id number] 2{spray } Use 2 Sprays in each nostril daily. [facility] benzonatate 100 mg capsule 2021-08 0 00:00: 00 Yes [id number] 100mg Take 1 capsule by mouth 3 (three) times daily as needed for Cough. [facility] fluticasone propionate 50 mcg/actuati on nasal spray 2021-08 0 00:00: 00 Yes [id number] 2{spray } Use 2 Sprays in each nostril daily. [facility] benzonatate 100 mg capsule 2021-08 0 00:00: 00 Yes [id number] 100mg Take 1 capsule by mouth 3 (three) times daily as needed for Cough. [facility] fluticasone propionate 50 mcg/actuati on nasal spray 2021-08 0 00:00: 00 Yes [id number] 2{spray } Use 2 Sprays in each nostril daily. [facility] benzonatate 100 mg capsule 2021-08 0 00:00: 00 Yes [id number] 100mg Take 1 capsule by mouth 3 (three) times daily as needed for Cough. [facility] fluticasone propionate 50 mcg/actuati on nasal spray 2021-08 0 00:00: 00 Yes [id number] 2{spray } Use 2 Sprays in each nostril daily. [facility] benzonatate 100 mg capsule 2021-08 0 00:00: 00 Yes [id number] 100mg Take 1 capsule by mouth 3 (three) times daily as needed for Cough. [facility] fluticasone propionate 50 mcg/actuati on nasal spray 2021-08 0 00:00: 00 Yes [id number] 2{spray } Use 2 Sprays in each nostril daily. [facility] benzonatate 100 mg capsule 2021-08 0 00:00: 00 Yes [id number] 100mg Take 1 capsule by mouth 3 (three) times daily as needed for Cough. [facility] fluticasone propionate 50 mcg/actuati on nasal spray 2021-08 0 00:00: 00 Yes [id number] 2{spray } Use 2 Sprays in each nostril daily. [facility] benzonatate 100 mg capsule 2021-08 0 00:00: 00 Yes [id number] 100mg Take 1 capsule by mouth 3 (three) times daily as needed for Cough. [facility] fluticasone propionate 50 mcg/actuati on nasal spray 2021-08 0 00:00: 00 Yes [id number] 2{spray } Use 2 Sprays in each nostril daily. [facility] benzonatate 100 mg capsule 2021-08 0 00:00: 00 Yes [id number] 100mg Take 1 capsule by mouth 3 (three) times daily as needed for Cough. [facility] fluticasone propionate 50 mcg/actuati on nasal spray 2021-08 0 00:00: 00 Yes [id number] 2{spray } Use 2 Sprays in each nostril daily. [facility] benzonatate 100 mg capsule 2021-08 0 00:00: 00 Yes [id number] 100mg Take 1 capsule by mouth 3 (three) times daily as needed for Cough. [facility] fluticasone propionate 50 mcg/actuati on nasal spray 2021-08 0 00:00: 00 Yes [id number] 2{spray } Use 2 Sprays in each nostril daily. [facility] benzonatate 100 mg capsule 2021-08 0 00:00: 00 Yes [id number] 100mg Take 1 capsule by mouth 3 (three) times daily as needed for Cough. [facility] fluticasone propionate 50 mcg/actuati on nasal spray 2021-08 0 00:00: 00 Yes [id number] 2{spray } Use 2 Sprays in each nostril daily. [facility] benzonatate 100 mg capsule 2021-08 0 00:00: 00 Yes [id number] 100mg Take 1 capsule by mouth 3 (three) times daily as needed for Cough. [facility] fluticasone propionate 50 mcg/actuati on nasal spray 2021-08 0 00:00: 00 Yes [id number] 2{spray } Use 2 Sprays in each nostril daily. [facility] benzonatate 100 mg capsule 2021-08 0- 00:00: 00 Yes [id number] 100mg Take 1 capsule by mouth 3 (three) times daily as needed for Cough. [facility] fluticasone propionate 50 mcg/actuati on nasal spray 2021-08 0 00:00: 00 Yes [id number] 2{spray } Use 2 Sprays in each nostril daily. [facility] benzonatate 100 mg capsule 2021-08 0 00:00: 00 Yes [id number] 100mg Take 1 capsule by mouth 3 (three) times daily as needed for Cough. [facility] fluticasone propionate 50 mcg/actuati on nasal spray 2021-08 0 00:00: 00 Yes [id number] 2{spray } Use 2 Sprays in each nostril daily. [facility] benzonatate 100 mg capsule 2021-08 0 00:00: 00 Yes [id number] 100mg Take 1 capsule by mouth 3 (three) times daily as needed for Cough. [facility] fluticasone propionate 50 mcg/actuati on nasal spray 2021-08 0 00:00: 00 Yes [id number] 2{spray } Use 2 Sprays in each nostril daily. [facility] benzonatate 100 mg capsule 2021-08 0- 00:00: 00 Yes [id number] 100mg Take 1 capsule by mouth 3 (three) times daily as needed for Cough. [facility] fluticasone propionate 50 mcg/actuati on nasal spray 2021-08 0- 00:00: 00 Yes [id number] 2{spray } Use 2 Sprays in each nostril daily. [facility] benzonatate 100 mg capsule 2021- 0- 00:00: 00 Yes [id number] 100mg Take 1 capsule by mouth 3 (three) times daily as needed for Cough. [facility] fluticasone propionate 50 mcg/actuati on nasal spray 2021-08 0 00:00: 00 Yes [id number] 2{spray } Use 2 Sprays in each nostril daily. [facility] benzonatate 100 mg capsule 2021-08 0 00:00: 00 Yes [id number] 100mg Take 1 capsule by mouth 3 (three) times daily as needed for Cough. [facility] fluticasone propionate 50 mcg/actuati on nasal spray 2021-08 0 00:00: 00 Yes [id number] 2{spray } Use 2 Sprays in each nostril daily. [facility] benzonatate 100 mg capsule 2021-08 0 00:00: 00 Yes [id number] 100mg Take 1 capsule by mouth 3 (three) times daily as needed for Cough. [facility] fluticasone propionate 50 mcg/actuati on nasal spray 2021-08 0 00:00: 00 Yes [id number] 2{spray } Use 2 Sprays in each nostril daily. [facility] benzonatate 100 mg capsule 2021-08 0 00:00: 00 Yes [id number] 100mg Take 1 capsule by mouth 3 (three) times daily as needed for Cough. [facility] fluticasone propionate 50 mcg/actuati on nasal spray 2021-08 0 00:00: 00 Yes [id number] 2{spray } Use 2 Sprays in each nostril daily. [facility] benzonatate 100 mg capsule 2021-08 0 00:00: 00 Yes [id number] 100mg Take 1 capsule by mouth 3 (three) times daily as needed for Cough. [facility] fluticasone propionate 50 mcg/actuati on nasal spray 2021-08 0 00:00: 00 Yes [id number] 2{spray } Use 2 Sprays in each nostril daily. [facility] benzonatate 100 mg capsule 2021-08 0- 00:00: 00 Yes [id number] 100mg Take 1 capsule by mouth 3 (three) times daily as needed for Cough. [facility] fluticasone propionate 50 mcg/actuati on nasal spray 2021-08 0- 00:00: 00 Yes [id number] 2{spray } Use 2 Sprays in each nostril daily. [facility] benzon[facility]ate 100 mg capsule 2021-08 0-09 00:00: 00 Yes [id number] 100mg Take 1 capsule by mouth 3 (three) times daily as needed for Cough. [facility] fluticasone propionate 50 mcg/actuati on nasal spray 2021-08 0- 00:00: 00 Yes [id number] 2{spray } Use 2 Sprays in each nostril daily. [facility] benzonatate 100 mg capsule 2021-08 0 00:00: 00 Yes [id number] 100mg Take 1 capsule by mouth 3 (three) times daily as needed for Cough. [facility] fluticasone propionate 50 mcg/actuati on nasal spray 2021-08 0 00:00: 00 Yes [id number] 2{spray } Use 2 Sprays in each nostril daily. [facility] benzonatate 100 mg capsule 2021-08 0 00:00: 00 Yes [id number] 100mg Take 1 capsule by mouth 3 (three) times daily as needed for Cough. [facility] fluticasone propionate 50 mcg/actuati on nasal spray 2021-08 0 00:00: 00 Yes [id number] 2{spray } Use 2 Sprays in each nostril daily. [facility] benzonatate 100 mg capsule 2021-08 0 00:00: 00 Yes [id number] 100mg Take 1 capsule by mouth 3 (three) times daily as needed for Cough. [facility] fluticasone propionate 50 mcg/actuati on nasal spray 2021-08 0 00:00: 00 Yes [id number] 2{spray } Use 2 Sprays in each nostril daily. [facility] benzonatate 100 mg capsule 2021-08 0- 00:00: 00 Yes [id number] 100mg Take 1 capsule by mouth 3 (three) times daily as needed for Cough. [facility] fluticasone propionate 50 mcg/actuati on nasal spray 2021-08 0 00:00: 00 Yes [id number] 2{spray } Use 2 Sprays in each nostril daily. [facility] benzonatate 100 mg capsule 2021-08 0 00:00: 00 Yes [id number] 100mg Take 1 capsule by mouth 3 (three) times daily as needed for Cough. [facility] fluticasone propionate 50 mcg/actuati on nasal spray 2021-08 0 00:00: 00 Yes [id number] 2{spray } Use 2 Sprays in each nostril daily. [facility] benzonatate 100 mg capsule 2021-08 0 00:00: 00 Yes [id number] 100mg Take 1 capsule by mouth 3 (three) times daily as needed for Cough. [facility] fluticasone propionate 50 mcg/actuati on nasal spray 2021-08 0 00:00: 00 Yes [id number] 2{spray } Use 2 Sprays in each nostril daily. [facility] benzonatate 100 mg capsule 2021-08 0 00:00: 00 Yes [id number] 100mg Take 1 capsule by mouth 3 (three) times daily as needed for Cough. [facility] fluticasone propionate 50 mcg/actuati on nasal spray 2021-08 0 00:00: 00 Yes [id number] 2{spray } Use 2 Sprays in each nostril daily. [facility] benzonatate 100 mg capsule 2021-08 0 00:00: 00 Yes [id number] 100mg Take 1 capsule by mouth 3 (three) times daily as needed for Cough. [facility] fluticasone propionate 50 mcg/actuati on nasal spray 2021-08 0 00:00: 00 Yes [id number] 2{spray } Use 2 Sprays in each nostril daily. [facility] benzonatate 100 mg capsule 2021-08 0 00:00: 00 Yes [id number] 100mg Take 1 capsule by mouth 3 (three) times daily as needed for Cough. [facility] fluticasone propionate 50 mcg/actuati on nasal spray 2021-08 0 00:00: 00 Yes [id number] 2{spray } Use 2 Sprays in each nostril daily. [facility] benzonatate 100 mg capsule 2021-08 0 00:00: 00 Yes [id number] 100mg Take 1 capsule by mouth 3 (three) times daily as needed for Cough. [facility] fluticasone propionate 50 mcg/actuati on nasal spray 2021-08 0 00:00: 00 Yes [id number] 2{spray } Use 2 Sprays in each nostril daily. [facility] benzonatate 100 mg capsule 2021-08 0 00:00: 00 Yes [id number] 100mg Take 1 capsule by mouth 3 (three) times daily as needed for Cough. [facility] fluticasone propionate 50 mcg/actuati on nasal spray 2021-08 0 00:00: 00 Yes [id number] 2{spray } Use 2 Sprays in each nostril daily. [facility] benzonatate 100 mg capsule 2021-08 0 00:00: 00 Yes [id number] 100mg Take 1 capsule by mouth 3 (three) times daily as needed for Cough. [facility] fluticasone propionate 50 mcg/actuati on nasal spray 2021-08 0 00:00: 00 Yes [id number] 2{spray } Use 2 Sprays in each nostril daily. [facility] benzonatate 100 mg capsule 2021-08 0 00:00: 00 Yes [id number] 100mg Take 1 capsule by mouth 3 (three) times daily as needed for Cough. [facility] fluticasone propionate 50 mcg/actuati on nasal spray 2021-08 0 00:00: 00 Yes [id number] 2{spray } Use 2 Sprays in each nostril daily. [facility] benzonatate 100 mg capsule 2021-08 0 00:00: 00 Yes [id number] 100mg Take 1 capsule by mouth 3 (three) times daily as needed for Cough. [facility] fluticasone propionate 50 mcg/actuati on nasal spray 2021-08 0 00:00: 00 Yes [id number] 2{spray } Use 2 Sprays in each nostril daily. [facility] benzon[facility]ate 100 mg capsule 2021-08 0 00:00: 00 Yes [id number] 100mg Take 1 capsule by mouth 3 (three) times daily as needed for Cough. [facility] fluticasone propionate 50 mcg/actuati on nasal spray 2021-08 0 00:00: 00 Yes [id number] 2{spray } Use 2 Sprays in each nostril daily. [facility] benzonatate 100 mg capsule 2021-08 0 00:00: 00 Yes [id number] 100mg Take 1 capsule by mouth 3 (three) times daily as needed for Cough. [facility] fluticasone propionate 50 mcg/actuati on nasal spray 2021-08 0 00:00: 00 Yes [id number] 2{spray } Use 2 Sprays in each nostril daily. [facility] benzonatate 100 mg capsule 2021-08 0 00:00: 00 Yes [id number] 100mg Take 1 capsule by mouth 3 (three) times daily as needed for Cough. [facility] fluticasone propionate 50 mcg/actuati on nasal spray 2021-08 0 00:00: 00 Yes [id number] 2{spray } Use 2 Sprays in each nostril daily. [facility] benzonatate 100 mg capsule 2021-08 0 00:00: 00 Yes [id number] 100mg Take 1 capsule by mouth 3 (three) times daily as needed for Cough. [facility] fluticasone propionate 50 mcg/actuati on nasal spray 2021-08 0 00:00: 00 Yes [id number] 2{spray } Use 2 Sprays in each nostril daily. [facility] benzonatate 100 mg capsule 2021-08 0 00:00: 00 Yes [id number] 100mg Take 1 capsule by mouth 3 (three) times daily as needed for Cough. [facility] fluticasone propionate 50 mcg/actuati on nasal spray 2021-08 0 00:00: 00 Yes [id number] 2{spray } Use 2 Sprays in each nostril daily. [facility] benzonatate 100 mg capsule 2021-08 0 00:00: 00 Yes [id number] 100mg Take 1 capsule by mouth 3 (three) times daily as needed for Cough. [facility] fluticasone propionate 50 mcg/actuati on nasal spray 2021-08 0 00:00: 00 Yes [id number] 2{spray } Use 2 Sprays in each nostril daily. [facility] benzonatate 100 mg capsule 2021-08 0 00:00: 00 Yes [id number] 100mg Take 1 capsule by mouth 3 (three) times daily as needed for Cough. [facility] fluticasone propionate 50 mcg/actuati on nasal spray 2021-08 0 00:00: 00 Yes [id number] 2{spray } Use 2 Sprays in each nostril daily. [facility] benzonatate 100 mg capsule 2021-08 0 00:00: 00 Yes [id number] 100mg Take 1 capsule by mouth 3 (three) times daily as needed for Cough. [facility] fluticasone propionate 50 mcg/actuati on nasal spray 2021-08 0 00:00: 00 Yes [id number] 2{spray } Use 2 Sprays in each nostril daily. [facility] benzonatate 100 mg capsule 2021-08 0 00:00: 00 Yes [id number] 100mg Take 1 capsule by mouth 3 (three) times daily as needed for Cough. [facility] fluticasone propionate 50 mcg/actuati on nasal spray 2021-08 0 00:00: 00 Yes [id number] 2{spray } Use 2 Sprays in each nostril daily. [facility] benzonatate 100 mg capsule 2021-08 0 00:00: 00 Yes [id number] 100mg Take 1 capsule by mouth 3 (three) times daily as needed for Cough. [facility] fluticasone propionate 50 mcg/actuati on nasal spray 2021-08 0 00:00: 00 Yes [id number] 2{spray } Use 2 Sprays in each nostril daily. [facility] benzonatate 100 mg capsule 2021-08 0 00:00: 00 Yes [id number] 100mg Take 1 capsule by mouth 3 (three) times daily as needed for Cough. [facility] fluticasone propionate 50 mcg/actuati on nasal spray 2021-08 0 00:00: 00 Yes [id number] 2{spray } Use 2 Sprays in each nostril daily. [facility] benzonatate 100 mg capsule 2021-08 0 00:00: 00 Yes [id number] 100mg Take 1 capsule by mouth 3 (three) times daily as needed for Cough. [facility] fluticasone propionate 50 mcg/actuati on nasal spray 2021-08 0 00:00: 00 Yes [id number] 2{spray } Use 2 Sprays in each nostril daily. [facility] benzonatate 100 mg capsule 2021-08 0 00:00: 00 Yes [id number] 100mg Take 1 capsule by mouth 3 (three) times daily as needed for Cough. [facility] fluticasone propionate 50 mcg/actuati on nasal spray 2021-08 0 00:00: 00 Yes [id number] 2{spray } Use 2 Sprays in each nostril daily. [facility] benzonatate 100 mg capsule 2021-08 0 00:00: 00 Yes [id number] 100mg Take 1 capsule by mouth 3 (three) times daily as needed for Cough. [facility] fluticasone propionate 50 mcg/actuati on nasal spray 2021-08 0 00:00: 00 Yes [id number] 2{spray } Use 2 Sprays in each nostril daily. [facility] benzonatate 100 mg capsule 2021-08 0 00:00: 00 Yes [id number] 100mg Take 1 capsule by mouth 3 (three) times daily as needed for Cough. [facility] fluticasone propionate 50 mcg/actuati on nasal spray 2021-08 0 00:00: 00 Yes [id number] 2{spray } Use 2 Sprays in each nostril daily. [facility] benzonatate 100 mg capsule 2021- 0 00:00: 00 Yes [id number] 100mg Take 1 capsule by mouth 3 (three) times daily as needed for Cough. [facility] fluticasone propionate 50 mcg/actuati on nasal spray 2021-08 0 00:00: 00 Yes [id number] 2{spray } Use 2 Sprays in each nostril daily. [facility] benzonatate 100 mg capsule 2021-08 0 00:00: 00 Yes [id number] 100mg Take 1 capsule by mouth 3 (three) times daily as needed for Cough. [facility] fluticasone propionate 50 mcg/actuati on nasal spray 2021-08 0 00:00: 00 Yes [id number] 2{spray } Use 2 Sprays in each nostril daily. [facility] benzonatate 100 mg capsule 2021-08 0 00:00: 00 Yes [id number] 100mg Take 1 capsule by mouth 3 (three) times daily as needed for Cough. [facility] fluticasone propionate 50 mcg/actuati on nasal spray 2021-08 0 00:00: 00 Yes [id number] 2{spray } Use 2 Sprays in each nostril daily. [facility] benzonatate 100 mg capsule 2021-08 0 00:00: 00 Yes [id number] 100mg Take 1 capsule by mouth 3 (three) times daily as needed for Cough. [facility] fluticasone propionate 50 mcg/actuati on nasal spray 2021-08 0 00:00: 00 Yes [id number] 2{spray } Use 2 Sprays in each nostril daily. [facility] benzonatate 100 mg capsule 2021-08 0 00:00: 00 Yes [id number] 100mg Take 1 capsule by mouth 3 (three) times daily as needed for Cough. [facility] fluticasone propionate 50 mcg/actuati on nasal spray 2021-08 0- 00:00: 00 Yes [id number] 2{spray } Use 2 Sprays in each nostril daily. [facility] benzonatate 100 mg capsule 2021- 0- 00:00: 00 Yes [id number] 100mg Take 1 capsule by mouth 3 (three) times daily as needed for Cough. [facility] fluticasone propionate 50 mcg/actuati on nasal spray 2021-08 0 00:00: 00 Yes [id number] 2{spray } Use 2 Sprays in each nostril daily. [facility] benzonatate 100 mg capsule 2021-08 0 00:00: 00 Yes [id number] 100mg Take 1 capsule by mouth 3 (three) times daily as needed for Cough. [facility] fluticasone propionate 50 mcg/actuati on nasal spray 2021-08 0 00:00: 00 Yes [id number] 2{spray } Use 2 Sprays in each nostril daily. [facility] benzonatate 100 mg capsule 2021-08 00:00: 00 04-02 00:00 :00 No [id number] 100mg Take 1 capsule by mouth 3 (three) times daily as needed for Cough. [facility] fluticasone propionate 50 mcg/actuati on nasal spray 2021-08 00:00: 00 04-02 00:00 :00 No [id number] 2{spray } Use 2 Sprays in each nostril daily. [facility] bevacizumab -bvzr (ZIRABEV) 500 mg in NaCl 0.9% (NS) 100 mL infusion 2021-08 19:45: 00 05-13 20:40 :00 No [id number] 04 7.5mg/k g 500 mg (rounded from 536.25 mg = 7.5 mg/kg ?71.5 kg Treatment plan Recorded weight), IV Infusion, ONCE, Administer over 30 Minutes, On Wed05/13/22 at 1445, For 1 dose
Sh ould be diluted in 0.9% Sodium Chloride, not D5W. May store diluted solution in refrigerat or for up to 8 hours.&nbs p;Infuse 1st infusion over 90 minutes; 2nd infusion for 60 minutes; subsequent infusions over 30 minutes if well tolerated.
[facility] NaCl 0.9% (NS) IV infusion 500 mL 2021-08 19:45: 00 05-13 20:40 :00 No [id number] 500mL at 1,000 mL/hr, IV Infusion, ONCE, 1 dose, On Wed05/13/22 at 1445, Routine [facility] heparin lock flush (HEPARIN LOCKFLUSH(P ORCINE)(PF) ) 100 unit/mL injection 500 Units 2021-08 19:38: 15 05-14 19:37 :15 No [id number] 04 500U 500 Units, IV Push, PRN, Starting on Wed05/13/22 at 1438, Until Mireya 05/14/22 at 1437, Routine [facility] capecitabin e 500 mg tablet 2021-08 00:00: 00 Yes [id number] 04 1500mg Take 3 tablets by mouth 2 (two) times daily. Take 3 tablets in the morning and 3 tablets in the evening for 14 days. Then 7 days off . Take within 30 minutes of finishing a meal. [facility] gabapentin 100 mg capsule 2021-08 00:00: 00 Yes [id number] 300mg Take 3 capsules by mouth at bedtime. [facility] gabapentin 100 mg capsule 2021-08 0 00:00: 00 Yes [id number] 300mg Take 3 capsules by mouth at bedtime. [facility] capecitabin e 500 mg tablet 2021-08 00:00: 00 Yes [id number] 04 1500mg Take 3 tablets by mouth 2 (two) times daily. Take 3 tablets in the morning and 3 tablets in the evening for 14 days. Then 7 days off . Take within 30 minutes of finishing a meal. [facility] gabapentin 100 mg capsule 2021-08 0 00:00: 00 Yes [id number] 300mg Take 3 capsules by mouth at bedtime. [facility] capecitabin e 500 mg tablet 2021-08 0 00:00: 00 Yes [id number] 04 1500mg Take 3 tablets by mouth 2 (two) times daily. Take 3 tablets in the morning and 3 tablets in the evening for 14 days. Then 7 days off . Take within 30 minutes of finishing a meal. [facility] gabapentin 100 mg capsule 2021-08 0-05 00:00: 00 Yes [id number] 300mg Take 3 capsules by mouth at bedtime. [facility] capecitabin e 500 mg tablet 2021-08 0- 00:00: 00 Yes [id number] 1500mg Take 3 tablets by mouth 2 (two) times daily. Take 3 tablets in the morning and 3 tablets in the evening for 14 days. Then 7 days off . Take within 30 minutes of finishing a meal. [facility] gabapentin 100 mg capsule 2021-08 0- 00:00: 00 Yes [id number] 300mg Take 3 capsules by mouth at bedtime. [facility] capecitabin e 500 mg tablet 2021-08 0- 00:00: 00 Yes [id number] 1500mg Take 3 tablets by mouth 2 (two) times daily. Take 3 tablets in the morning and 3 tablets in the evening for 14 days. Then 7 days off . Take within 30 minutes of finishing a meal. [facility] gabapentin 100 mg capsule 2021-08 0- 00:00: 00 Yes [id number] 300mg Take 3 capsules by mouth at bedtime. [facility] capecitabin e 500 mg tablet 2021-08 0 00:00: 00 Yes [id number] 1500mg Take 3 tablets by mouth 2 (two) times daily. Take 3 tablets in the morning and 3 tablets in the evening for 14 days. Then 7 days off . Take within 30 minutes of finishing a meal. [facility] gabapentin 100 mg capsule 2021-08 0-05 00:00: 00 Yes [id number] 300mg Take 3 capsules by mouth at bedtime. [facility] gabapentin 100 mg capsule 2021- 0-05 00:00: 00 Yes [id number] 300mg Take 3 capsules by mouth at bedtime. [facility] gabapentin 100 mg capsule 2021- 0-05 00:00: 00 Yes [id number] 300mg Take 3 capsules by mouth at bedtime. [facility] gabapentin 100 mg capsule 2021- 0-05 00:00: 00 Yes [id number] 300mg Take 3 capsules by mouth at bedtime. [facility] gabapentin 100 mg capsule 2021- 0-05 00:00: 00 Yes [id number] 300mg Take 3 capsules by mouth at bedtime. [facility] gabapentin 100 mg capsule 2021- 0-05 00:00: 00 Yes [id number] 300mg Take 3 capsules by mouth at bedtime. [facility] gabapentin 100 mg capsule 2021- 0-05 00:00: 00 Yes [id number] 300mg Take 3 capsules by mouth at bedtime. [facility] gabapentin 100 mg capsule 2021- 0-05 00:00: 00 Yes [id number] 300mg Take 3 capsules by mouth at bedtime. [facility] gabapentin 100 mg capsule 2021- 0-05 00:00: 00 Yes [id number] 300mg Take 3 capsules by mouth at bedtime. [facility] gabapentin 100 mg capsule 2021- 0-05 00:00: 00 Yes [id number] 300mg Take 3 capsules by mouth at bedtime. [facility] gabapentin 100 mg capsule 2021- 0-05 00:00: 00 Yes [id number] 300mg Take 3 capsules by mouth at bedtime. [facility] gabapentin 100 mg capsule 2021-1 0-05 00:00: 00 Yes [id number] 300mg Take 3 capsules by mouth at bedtime. [facility] gabapentin 100 mg capsule 2021- 0-05 00:00: 00 Yes [id number] 300mg Take 3 capsules by mouth at bedtime. [facility] gabapentin 100 mg capsule 2021-1 0-05 00:00: 00 Yes [id number] 300mg Take 3 capsules by mouth at bedtime. [facility] gabapentin 100 mg capsule 2021-1 0-05 00:00: 00 Yes [id number] 300mg Take 3 capsules by mouth at bedtime. [facility] gabapentin 100 mg capsule 2021-1 0-05 00:00: 00 Yes [id number] 300mg Take 3 capsules by mouth at bedtime. [facility] gabapentin 100 mg capsule 2021-1 0-05 00:00: 00 Yes [id number] 300mg Take 3 capsules by mouth at bedtime. [facility] gabapentin 100 mg capsule 2021- 0-05 00:00: 00 Yes [id number] 300mg Take 3 capsules by mouth at bedtime. [facility] gabapentin 100 mg capsule 2021- 0-05 00:00: 00 Yes [id number] 300mg Take 3 capsules by mouth at bedtime. [facility] gabapentin 100 mg capsule 2021- 0-05 00:00: 00 Yes [id number] 300mg Take 3 capsules by mouth at bedtime. [facility] gabapentin 100 mg capsule 2021- 0-05 00:00: 00 Yes [id number] 300mg Take 3 capsules by mouth at bedtime. [facility] gabapentin 100 mg capsule 2021- 0-05 00:00: 00 Yes [id number] 300mg Take 3 capsules by mouth at bedtime. [facility] gabapentin 100 mg capsule 2021- 0-05 00:00: 00 Yes [id number] 300mg Take 3 capsules by mouth at bedtime. [facility] gabapentin 100 mg capsule 2021- 0-05 00:00: 00 Yes [id number] 300mg Take 3 capsules by mouth at bedtime. [facility] gabapentin 100 mg capsule 2021- 0-05 00:00: 00 Yes [id number] 300mg Take 3 capsules by mouth at bedtime. [facility] gabapentin 100 mg capsule 2021- 0-05 00:00: 00 Yes [id number] 300mg Take 3 capsules by mouth at bedtime. [facility] gabapentin 100 mg capsule 2021- 0-05 00:00: 00 Yes [id number] 300mg Take 3 capsules by mouth at bedtime. [facility] gabapentin 100 mg capsule 2021- 0-05 00:00: 00 Yes [id number] 300mg Take 3 capsules by mouth at bedtime. [facility] gabapentin 100 mg capsule 2021- 0-05 00:00: 00 Yes [id number] 300mg Take 3 capsules by mouth at bedtime. [facility] gabapentin 100 mg capsule 2021-1 0-05 00:00: 00 Yes [id number] 300mg Take 3 capsules by mouth at bedtime. [facility] gabapentin 100 mg capsule 2021-1 0-05 00:00: 00 Yes [id number] 300mg Take 3 capsules by mouth at bedtime. [facility] gabapentin 100 mg capsule 2021- 0-05 00:00: 00 Yes [id number] 300mg Take 3 capsules by mouth at bedtime. [facility] gabapentin 100 mg capsule 2021-1 0-05 00:00: 00 Yes [id number] 300mg Take 3 capsules by mouth at bedtime. [facility] gabapentin 100 mg capsule 2021- 0-05 00:00: 00 Yes [id number] 300mg Take 3 capsules by mouth at bedtime. [facility] gabapentin 100 mg capsule 2021- 0-05 00:00: 00 08-20 00:00 :00 No [id number] 300mg Take 3 capsules by mouth at bedtime. [facility] gabapentin 100 mg capsule 2021- 0-05 00:00: 00 08-20 00:00 :00 No [id number] 300mg Take 3 capsules by mouth at bedtime. [facility] gabapentin 100 mg capsule 2021- 0-05 00:00: 00 08-20 00:00 :00 No [id number] 300mg Take 3 capsules by mouth at bedtime. [facility] gabapentin 100 mg capsule 2021- 0-05 00:00: 00 08-20 00:00 :00 No [id number] 300mg Take 3 capsules by mouth at bedtime. [facility] capecitabin e 500 mg tablet 2021- 0-05 00:00: 00 06-04 00:00 :00 No [id number] 04 1500mg Take 3 tablets by mouth 2 (two) times daily. Take 3 tablets in the morning and 3 tablets in the evening for 14 days. Then 7 days off . Take within 30 minutes of finishing a meal. [facility] capecitabin e 500 mg tablet 2021- 0-05 00:00: 00 06-04 00:00 :00 No [id number] 1500mg Take 3 tablets by mouth 2 (two) times daily. Take 3 tablets in the morning and 3 tablets in the evening for 14 days. Then 7 days off . Take within 30 minutes of finishing a meal. [facility] FINASTERIDE 5 mg tablet 2021-08 0 00:00: 00 Yes [id number] 9102 TAKE ONE (1) TABLET(S) BY MOUTH ONCE A DAY. [facility] FENOFIBRATE 160 mg tablet 2021-08 0 00:00: 00 Yes [id number] TAKE ONE (1) TABLET(S) BY MOUTH ONCE A DAY. [facility] ROSUVASTATI N 40 mg tablet 2021-08 0 00:00: 00 Yes [id number] TAKE ONE (1) TABLET(S) BY MOUTH ONCE A DAY AT BEDTIME. [facility] FINASTERIDE 5 mg tablet 2021-08 0 00:00: 00 Yes [id number] 9102 TAKE ONE (1) TABLET(S) BY MOUTH ONCE A DAY. [facility] LISINOPRIL 2.5 mg tablet 2021-08 0 00:00: 00 Yes [id number] TAKE ONE (1) TABLET(S) BY MOUTH ONCE A DAY. [facility] FENOFIBRATE 160 mg tablet 2021-08 0 00:00: 00 Yes [id number] TAKE ONE (1) TABLET(S) BY MOUTH ONCE A DAY. [facility] ROSUVASTATI N 40 mg tablet 2021-08 0 00:00: 00 Yes [id number] TAKE ONE (1) TABLET(S) BY MOUTH ONCE A DAY AT BEDTIME. [facility] FINASTERIDE 5 mg tablet 2021-08 0- 00:00: 00 Yes [id number] TAKE ONE (1) TABLET(S) BY MOUTH ONCE A DAY. [facility] LISINOPRIL 2.5 mg tablet 2021-08 0- 00:00: 00 Yes [id number] TAKE ONE (1) TABLET(S) BY MOUTH ONCE A DAY. [facility] FENOFIBRATE 160 mg tablet 2021-08 0- 00:00: 00 Yes [id number] TAKE ONE (1) TABLET(S) BY MOUTH ONCE A DAY. [facility] ROSUVASTATI N 40 mg tablet 2021-08 0-04 00:00: 00 Yes [id number] TAKE ONE (1) TABLET(S) BY MOUTH ONCE A DAY AT BEDTIME. [facility] FINASTERIDE 5 mg tablet 2021-08 0-04 00:00: 00 Yes [id number] TAKE ONE (1) TABLET(S) BY MOUTH ONCE A DAY. [facility] LISINOPRIL 2.5 mg tablet 2021-08 0-04 00:00: 00 Yes [id number] TAKE ONE (1) TABLET(S) BY MOUTH ONCE A DAY. [facility] FENOFIBRATE 160 mg tablet 2021-08 0-04 00:00: 00 Yes [id number] TAKE ONE (1) TABLET(S) BY MOUTH ONCE A DAY. [facility] ROSUVASTATI N 40 mg tablet 2021-08 0-04 00:00: 00 Yes [id number] TAKE ONE (1) TABLET(S) BY MOUTH ONCE A DAY AT BEDTIME. [facility] FINASTERIDE 5 mg tablet 2021-08 0-04 00:00: 00 Yes [id number] 9102 TAKE ONE (1) TABLET(S) BY MOUTH ONCE A DAY. [facility] LISINOPRIL 2.5 mg tablet 2021-08 0-04 00:00: 00 Yes [id number] TAKE ONE (1) TABLET(S) BY MOUTH ONCE A DAY. [facility] FENOFIBRATE 160 mg tablet 2021-08 0-04 00:00: 00 Yes [id number] TAKE ONE (1) TABLET(S) BY MOUTH ONCE A DAY. [facility] ROSUVASTATI N 40 mg tablet 2021-08 0-04 00:00: 00 Yes [id number] TAKE ONE (1) TABLET(S) BY MOUTH ONCE A DAY AT BEDTIME. [facility] FINASTERIDE 5 mg tablet 2021-08 0-04 00:00: 00 Yes [id number] TAKE ONE (1) TABLET(S) BY MOUTH ONCE A DAY. [facility] LISINOPRIL 2.5 mg tablet 2021-08 0-04 00:00: 00 Yes [id number] TAKE ONE (1) TABLET(S) BY MOUTH ONCE A DAY. [facility] FENOFIBRATE 160 mg tablet 2021-08 0-04 00:00: 00 Yes [id number] TAKE ONE (1) TABLET(S) BY MOUTH ONCE A DAY. [facility] ROSUVASTATI N 40 mg tablet 2021-08 0-04 00:00: 00 Yes [id number] TAKE ONE (1) TABLET(S) BY MOUTH ONCE A DAY AT BEDTIME. [facility] FINASTERIDE 5 mg tablet 2021-08 0-04 00:00: 00 Yes [id number] 9102 TAKE ONE (1) TABLET(S) BY MOUTH ONCE A DAY. [facility] LISINOPRIL 2.5 mg tablet 2021-08 0- 00:00: 00 Yes [id number] TAKE ONE (1) TABLET(S) BY MOUTH ONCE A DAY. [facility] FENOFIBRATE 160 mg tablet 2021-08 0-04 00:00: 00 Yes [id number] TAKE ONE (1) TABLET(S) BY MOUTH ONCE A DAY. [facility] ROSUVASTATI N 40 mg tablet 2021-08 0-04 00:00: 00 Yes [id number] TAKE ONE (1) TABLET(S) BY MOUTH ONCE A DAY AT BEDTIME. [facility] FINASTERIDE 5 mg tablet 2021-08 0-04 00:00: 00 Yes [id number] TAKE ONE (1) TABLET(S) BY MOUTH ONCE A DAY. [facility] LISINOPRIL 2.5 mg tablet 2021-08 0-04 00:00: 00 Yes [id number] TAKE ONE (1) TABLET(S) BY MOUTH ONCE A DAY. [facility] FENOFIBRATE 160 mg tablet 2021-08 0-04 00:00: 00 Yes [id number] TAKE ONE (1) TABLET(S) BY MOUTH ONCE A DAY. [facility] ROSUVASTATI N 40 mg tablet 2021- 0-04 00:00: 00 Yes [id number] TAKE ONE (1) TABLET(S) BY MOUTH ONCE A DAY AT BEDTIME. [facility] FINASTERIDE 5 mg tablet 2021- 0-04 00:00: 00 Yes [id number] [id number] TAKE ONE (1) TABLET(S) BY MOUTH ONCE A DAY. [facility] LISINOPRIL 2.5 mg tablet 2021-08 0-04 00:00: 00 Yes [id number] TAKE ONE (1) TABLET(S) BY MOUTH ONCE A DAY. [facility] FENOFIBRATE 160 mg tablet 2021-08 0-04 00:00: 00 Yes [id number] TAKE ONE (1) TABLET(S) BY MOUTH ONCE A DAY. [facility] ROSUVASTATI N 40 mg tablet 2021-08 0-04 00:00: 00 Yes [id number] TAKE ONE (1) TABLET(S) BY MOUTH ONCE A DAY AT BEDTIME. [facility] FINASTERIDE 5 mg tablet 2021- 0-04 00:00: 00 Yes [id number] 9102 TAKE ONE (1) TABLET(S) BY MOUTH ONCE A DAY. [facility] LISINOPRIL 2.5 mg tablet 2021-08 0-04 00:00: 00 Yes [id number] TAKE ONE (1) TABLET(S) BY MOUTH ONCE A DAY. [facility] FENOFIBRATE 160 mg tablet 2021-08 0-04 00:00: 00 Yes [id number] TAKE ONE (1) TABLET(S) BY MOUTH ONCE A DAY. [facility] ROSUVASTATI N 40 mg tablet 2021-08 0-04 00:00: 00 Yes [id number] TAKE ONE (1) TABLET(S) BY MOUTH ONCE A DAY AT BEDTIME. [facility] FINASTERIDE 5 mg tablet 2021- 0-04 00:00: 00 Yes [id number] TAKE ONE (1) TABLET(S) BY MOUTH ONCE A DAY. [facility] LISINOPRIL 2.5 mg tablet 2021- 0-04 00:00: 00 Yes [id number] TAKE ONE (1) TABLET(S) BY MOUTH ONCE A DAY. [facility] FENOFIBRATE 160 mg tablet 2021-08 0-04 00:00: 00 Yes [id number] TAKE ONE (1) TABLET(S) BY MOUTH ONCE A DAY. [facility] ROSUVASTATI N 40 mg tablet 2021-08 0- 00:00: 00 Yes [id number] TAKE ONE (1) TABLET(S) BY MOUTH ONCE A DAY AT BEDTIME. [facility] FINASTERIDE 5 mg tablet 2021-08 0- 00:00: 00 Yes [id number] 9102 TAKE ONE (1) TABLET(S) BY MOUTH ONCE A DAY. [facility] LISINOPRIL 2.5 mg tablet 2021-08 0- 00:00: 00 Yes [id number] TAKE ONE (1) TABLET(S) BY MOUTH ONCE A DAY. [facility] FENOFIBRATE 160 mg tablet 2021-08 0- 00:00: 00 Yes [id number] TAKE ONE (1) TABLET(S) BY MOUTH ONCE A DAY. [facility] ROSUVASTATI N 40 mg tablet 2021-08 0- 00:00: 00 Yes [id number] TAKE ONE (1) TABLET(S) BY MOUTH ONCE A DAY AT BEDTIME. [facility] FINASTERIDE 5 mg tablet 2021-08 0-04 00:00: 00 Yes [id number] 9102 TAKE ONE (1) TABLET(S) BY MOUTH ONCE A DAY. [facility] LISINOPRIL 2.5 mg tablet 2021-08 0 00:00: 00 Yes [id number] TAKE ONE (1) TABLET(S) BY MOUTH ONCE A DAY. [facility] FENOFIBRATE 160 mg tablet 2021-08 0-04 00:00: 00 Yes [id number] TAKE ONE (1) TABLET(S) BY MOUTH ONCE A DAY. [facility] ROSUVASTATI N 40 mg tablet 2021-08 0-04 00:00: 00 Yes [id number] TAKE ONE (1) TABLET(S) BY MOUTH ONCE A DAY AT BEDTIME. [facility] FINASTERIDE 5 mg tablet 2021- 0-04 00:00: 00 Yes [id number] TAKE ONE (1) TABLET(S) BY MOUTH ONCE A DAY. [facility] LISINOPRIL 2.5 mg tablet 2021-08 0-04 00:00: 00 Yes [id number] TAKE ONE (1) TABLET(S) BY MOUTH ONCE A DAY. [facility] FENOFIBRATE 160 mg tablet 2021-08 0-04 00:00: 00 Yes [id number] TAKE ONE (1) TABLET(S) BY MOUTH ONCE A DAY. [facility] ROSUVASTATI N 40 mg tablet 2021-08 0- 00:00: 00 Yes [id number] TAKE ONE (1) TABLET(S) BY MOUTH ONCE A DAY AT BEDTIME. [facility] FINASTERIDE 5 mg tablet 2021-08 0- 00:00: 00 Yes [id number] 9102 TAKE ONE (1) TABLET(S) BY MOUTH ONCE A DAY. [facility] LISINOPRIL 2.5 mg tablet 2021-08 0- 00:00: 00 Yes [id number] TAKE ONE (1) TABLET(S) BY MOUTH ONCE A DAY. [facility] FENOFIBRATE 160 mg tablet 2021-08 0-04 00:00: 00 Yes [id number] TAKE ONE (1) TABLET(S) BY MOUTH ONCE A DAY. [facility] ROSUVASTATI N 40 mg tablet 2021-08 0-04 00:00: 00 Yes [id number] TAKE ONE (1) TABLET(S) BY MOUTH ONCE A DAY AT BEDTIME. [facility] FINASTERIDE 5 mg tablet 2021-08 0-04 00:00: 00 Yes [id number] 9102 TAKE ONE (1) TABLET(S) BY MOUTH ONCE A DAY. [facility] LISINOPRIL 2.5 mg tablet 2021-08 0-04 00:00: 00 Yes [id number] TAKE ONE (1) TABLET(S) BY MOUTH ONCE A DAY. [facility] FENOFIBRATE 160 mg tablet 2021-08 0-04 00:00: 00 Yes [id number] TAKE ONE (1) TABLET(S) BY MOUTH ONCE A DAY. [facility] ROSUVASTATI N 40 mg tablet 2021- 0-04 00:00: 00 Yes [id number] TAKE ONE (1) TABLET(S) BY MOUTH ONCE A DAY AT BEDTIME. [facility] FINASTERIDE 5 mg tablet 2021-08 0- 00:00: 00 Yes [id number] TAKE ONE (1) TABLET(S) BY MOUTH ONCE A DAY. [facility] LISINOPRIL 2.5 mg tablet 2021-08 0- 00:00: 00 Yes [id number] TAKE ONE (1) TABLET(S) BY MOUTH ONCE A DAY. [facility] FENOFIBRATE 160 mg tablet 2021-08 0- 00:00: 00 Yes [id number] TAKE ONE (1) TABLET(S) BY MOUTH ONCE A DAY. [facility] ROSUVASTATI N 40 mg tablet 2021-08 0- 00:00: 00 Yes [id number] TAKE ONE (1) TABLET(S) BY MOUTH ONCE A DAY AT BEDTIME. [facility] FINASTERIDE 5 mg tablet 2021-08 0- 00:00: 00 Yes [id number] 9102 TAKE ONE (1) TABLET(S) BY MOUTH ONCE A DAY. [facility] LISINOPRIL 2.5 mg tablet 2021-08 0 00:00: 00 Yes [id number] TAKE ONE (1) TABLET(S) BY MOUTH ONCE A DAY. [facility] FENOFIBRATE 160 mg tablet 2021-08 0- 00:00: 00 Yes [id number] TAKE ONE (1) TABLET(S) BY MOUTH ONCE A DAY. [facility] ROSUVASTATI N 40 mg tablet 2021-08 0- 00:00: 00 Yes [id number] TAKE ONE (1) TABLET(S) BY MOUTH ONCE A DAY AT BEDTIME. [facility] FINASTERIDE 5 mg tablet 2021-08 0- 00:00: 00 Yes [id number] 9102 TAKE ONE (1) TABLET(S) BY MOUTH ONCE A DAY. [facility] LISINOPRIL 2.5 mg tablet 2021-08 0- 00:00: 00 Yes [id number] TAKE ONE (1) TABLET(S) BY MOUTH ONCE A DAY. [facility] FENOFIBRATE 160 mg tablet 2021-08 0-04 00:00: 00 Yes [id number] TAKE ONE (1) TABLET(S) BY MOUTH ONCE A DAY. [facility] ROSUVASTATI N 40 mg tablet 2021-08 0-04 00:00: 00 Yes [id number] TAKE ONE (1) TABLET(S) BY MOUTH ONCE A DAY AT BEDTIME. [facility] FINASTERIDE 5 mg tablet 2021-08 0-04 00:00: 00 Yes [id number] 9102 TAKE ONE (1) TABLET(S) BY MOUTH ONCE A DAY. [facility] LISINOPRIL 2.5 mg tablet 2021-08 0- 00:00: 00 Yes [id number] TAKE ONE (1) TABLET(S) BY MOUTH ONCE A DAY. [facility] FENOFIBRATE 160 mg tablet 2021-08 0- 00:00: 00 Yes [id number] TAKE ONE (1) TABLET(S) BY MOUTH ONCE A DAY. [facility] ROSUVASTATI N 40 mg tablet 2021-08 0-04 00:00: 00 Yes [id number] TAKE ONE (1) TABLET(S) BY MOUTH ONCE A DAY AT BEDTIME. [facility] FINASTERIDE 5 mg tablet 2021-08 0 00:00: 00 Yes [id number] 9102 TAKE ONE (1) TABLET(S) BY MOUTH ONCE A DAY. [facility] LISINOPRIL 2.5 mg tablet 2021-08 0-04 00:00: 00 Yes [id number] TAKE ONE (1) TABLET(S) BY MOUTH ONCE A DAY. [facility] FENOFIBRATE 160 mg tablet 2021-08 0-04 00:00: 00 Yes [id number] TAKE ONE (1) TABLET(S) BY MOUTH ONCE A DAY. [facility] ROSUVASTATI N 40 mg tablet 2021-08 0-04 00:00: 00 Yes [id number] TAKE ONE (1) TABLET(S) BY MOUTH ONCE A DAY AT BEDTIME. [facility] FINASTERIDE 5 mg tablet 2021-08 0-04 00:00: 00 Yes [id number] 9102 TAKE ONE (1) TABLET(S) BY MOUTH ONCE A DAY. [facility] LISINOPRIL 2.5 mg tablet 2021-08 0-04 00:00: 00 Yes [id number] TAKE ONE (1) TABLET(S) BY MOUTH ONCE A DAY. [facility] FENOFIBRATE 160 mg tablet 2021-08 0-04 00:00: 00 Yes [id number] TAKE ONE (1) TABLET(S) BY MOUTH ONCE A DAY. [facility] ROSUVASTATI N 40 mg tablet 2021-08 0-04 00:00: 00 Yes [id number] TAKE ONE (1) TABLET(S) BY MOUTH ONCE A DAY AT BEDTIME. [facility] FINASTERIDE 5 mg tablet 2021-08 0- 00:00: 00 Yes [id number] 9102 TAKE ONE (1) TABLET(S) BY MOUTH ONCE A DAY. [facility] LISINOPRIL 2.5 mg tablet 2021-08 0- 00:00: 00 Yes [id number] TAKE ONE (1) TABLET(S) BY MOUTH ONCE A DAY. [facility] FENOFIBRATE 160 mg tablet 2021-08 0-04 00:00: 00 Yes [id number] TAKE ONE (1) TABLET(S) BY MOUTH ONCE A DAY. [facility] ROSUVASTATI N 40 mg tablet 2021-08 0-04 00:00: 00 Yes [id number] TAKE ONE (1) TABLET(S) BY MOUTH ONCE A DAY AT BEDTIME. [facility] FINASTERIDE 5 mg tablet 2021-08 0-04 00:00: 00 Yes [id number] 9102 TAKE ONE (1) TABLET(S) BY MOUTH ONCE A DAY. [facility] LISINOPRIL 2.5 mg tablet 2021-08 0-04 00:00: 00 Yes [id number] TAKE ONE (1) TABLET(S) BY MOUTH ONCE A DAY. [facility] FENOFIBRATE 160 mg tablet 2021-08 0-04 00:00: 00 Yes [id number] TAKE ONE (1) TABLET(S) BY MOUTH ONCE A DAY. [facility] ROSUVASTATI N 40 mg tablet 2021-08 0-04 00:00: 00 Yes [id number] TAKE ONE (1) TABLET(S) BY MOUTH ONCE A DAY AT BEDTIME. [facility] FINASTERIDE 5 mg tablet 2021-08 0-04 00:00: 00 Yes [id number] 9102 TAKE ONE (1) TABLET(S) BY MOUTH ONCE A DAY. [facility] LISINOPRIL 2.5 mg tablet 2021-08 0- 00:00: 00 Yes [id number] TAKE ONE (1) TABLET(S) BY MOUTH ONCE A DAY. [facility] FENOFIBRATE 160 mg tablet 2021-08 0-04 00:00: 00 Yes [id number] TAKE ONE (1) TABLET(S) BY MOUTH ONCE A DAY. [facility] ROSUVASTATI N 40 mg tablet 2021-08 0- 00:00: 00 Yes [id number] TAKE ONE (1) TABLET(S) BY MOUTH ONCE A DAY AT BEDTIME. [facility] FINASTERIDE 5 mg tablet 2021-08 0- 00:00: 00 Yes [id number] 9102 TAKE ONE (1) TABLET(S) BY MOUTH ONCE A DAY. [facility] LISINOPRIL 2.5 mg tablet 2021-08 0 00:00: 00 Yes [id number] TAKE ONE (1) TABLET(S) BY MOUTH ONCE A DAY. [facility] FENOFIBRATE 160 mg tablet 2021-08 0- 00:00: 00 Yes [id number] TAKE ONE (1) TABLET(S) BY MOUTH ONCE A DAY. [facility] ROSUVASTATI N 40 mg tablet 2021-08 0-04 00:00: 00 Yes [id number] TAKE ONE (1) TABLET(S) BY MOUTH ONCE A DAY AT BEDTIME. [facility] FINASTERIDE 5 mg tablet 2021-08 0-04 00:00: 00 Yes [id number] 9102 TAKE ONE (1) TABLET(S) BY MOUTH ONCE A DAY. [facility] LISINOPRIL 2.5 mg tablet 2021-08 0-04 00:00: 00 Yes [id number] TAKE ONE (1) TABLET(S) BY MOUTH ONCE A DAY. [facility] FENOFIBRATE 160 mg tablet 2021-08 0-04 00:00: 00 Yes [id number] TAKE ONE (1) TABLET(S) BY MOUTH ONCE A DAY. [facility] ROSUVASTATI N 40 mg tablet 2021-08 0-04 00:00: 00 Yes [id number] TAKE ONE (1) TABLET(S) BY MOUTH ONCE A DAY AT BEDTIME. [facility] FINASTERIDE 5 mg tablet 2021-08 0-04 00:00: 00 Yes [id number] 9102 TAKE ONE (1) TABLET(S) BY MOUTH ONCE A DAY. [facility] LISINOPRIL 2.5 mg tablet 2021-08 0-04 00:00: 00 Yes [id number] TAKE ONE (1) TABLET(S) BY MOUTH ONCE A DAY. [facility] FENOFIBRATE 160 mg tablet 2021-08 0-04 00:00: 00 Yes [id number] TAKE ONE (1) TABLET(S) BY MOUTH ONCE A DAY. [facility] ROSUVASTATI N 40 mg tablet 2021-08 0-04 00:00: 00 Yes [id number] TAKE ONE (1) TABLET(S) BY MOUTH ONCE A DAY AT BEDTIME. [facility] LISINOPRIL 2.5 mg tablet 2021-08 0-04 00:00: 00 Yes [id number] TAKE ONE (1) TABLET(S) BY MOUTH ONCE A DAY. [facility] FENOFIBRATE 160 mg tablet 2021-08 0-04 00:00: 00 Yes [id number] TAKE ONE (1) TABLET(S) BY MOUTH ONCE A DAY. [facility] ROSUVASTATI N 40 mg tablet 2021-08 0-04 00:00: 00 Yes [id number] TAKE ONE (1) TABLET(S) BY MOUTH ONCE A DAY AT BEDTIME. [facility] LISINOPRIL 2.5 mg tablet 2021-08 0-04 00:00: 00 Yes [id number] TAKE ONE (1) TABLET(S) BY MOUTH ONCE A DAY. [facility] FENOFIBRATE 160 mg tablet 2021-08 0-04 00:00: 00 Yes [id number] TAKE ONE (1) TABLET(S) BY MOUTH ONCE A DAY. [facility] ROSUVASTATI N 40 mg tablet 2021-08 0-04 00:00: 00 Yes [id number] TAKE ONE (1) TABLET(S) BY MOUTH ONCE A DAY AT BEDTIME. [facility] LISINOPRIL 2.5 mg tablet 2021-08 0- 00:00: 00 Yes [id number] TAKE ONE (1) TABLET(S) BY MOUTH ONCE A DAY. [facility] FENOFIBRATE 160 mg tablet 2021-08 0-04 00:00: 00 Yes [id number] TAKE ONE (1) TABLET(S) BY MOUTH ONCE A DAY. [facility] ROSUVASTATI N 40 mg tablet 2021-08 0- 00:00: 00 Yes [id number] TAKE ONE (1) TABLET(S) BY MOUTH ONCE A DAY AT BEDTIME. [facility] LISINOPRIL 2.5 mg tablet 2021-08 0- 00:00: 00 Yes [id number] TAKE ONE (1) TABLET(S) BY MOUTH ONCE A DAY. [facility] FENOFIBRATE 160 mg tablet 2021-08 0-04 00:00: 00 Yes [id number] TAKE ONE (1) TABLET(S) BY MOUTH ONCE A DAY. [facility] ROSUVASTATI N 40 mg tablet 2021-08 0-04 00:00: 00 Yes [id number] TAKE ONE (1) TABLET(S) BY MOUTH ONCE A DAY AT BEDTIME. [facility] LISINOPRIL 2.5 mg tablet 2021-08 0-04 00:00: 00 Yes [id number] TAKE ONE (1) TABLET(S) BY MOUTH ONCE A DAY. [facility] FENOFIBRATE 160 mg tablet 2021-08 0-04 00:00: 00 Yes [id number] TAKE ONE (1) TABLET(S) BY MOUTH ONCE A DAY. [facility] ROSUVASTATI N 40 mg tablet 2021- 0-04 00:00: 00 Yes [id number] TAKE ONE (1) TABLET(S) BY MOUTH ONCE A DAY AT BEDTIME. [facility] LISINOPRIL 2.5 mg tablet 2021-08 0-04 00:00: 00 Yes [id number] TAKE ONE (1) TABLET(S) BY MOUTH ONCE A DAY. [facility] FENOFIBRATE 160 mg tablet 2021-08 0-04 00:00: 00 Yes [id number] TAKE ONE (1) TABLET(S) BY MOUTH ONCE A DAY. [facility] ROSUVASTATI N 40 mg tablet 2021-08 0-04 00:00: 00 Yes [id number] TAKE ONE (1) TABLET(S) BY MOUTH ONCE A DAY AT BEDTIME. [facility] LISINOPRIL 2.5 mg tablet 2021-08 0-04 00:00: 00 Yes [id number] TAKE ONE (1) TABLET(S) BY MOUTH ONCE A DAY. [facility] FENOFIBRATE 160 mg tablet 2021-08 0-04 00:00: 00 Yes [id number] TAKE ONE (1) TABLET(S) BY MOUTH ONCE A DAY. [facility] ROSUVASTATI N 40 mg tablet 2021-08 0-04 00:00: 00 Yes [id number] TAKE ONE (1) TABLET(S) BY MOUTH ONCE A DAY AT BEDTIME. [facility] LISINOPRIL 2.5 mg tablet 2021-08 0-04 00:00: 00 Yes [id number] TAKE ONE (1) TABLET(S) BY MOUTH ONCE A DAY. [facility] FENOFIBRATE 160 mg tablet 2021-08 0-04 00:00: 00 Yes [id number] TAKE ONE (1) TABLET(S) BY MOUTH ONCE A DAY. [facility] ROSUVASTATI N 40 mg tablet 2021-08 0-04 00:00: 00 Yes [id number] TAKE ONE (1) TABLET(S) BY MOUTH ONCE A DAY AT BEDTIME. [facility] LISINOPRIL 2.5 mg tablet 2021- 0-04 00:00: 00 Yes [id number] TAKE ONE (1) TABLET(S) BY MOUTH ONCE A DAY. [facility] FENOFIBRATE 160 mg tablet 2021- 0-04 00:00: 00 Yes [id number] TAKE ONE (1) TABLET(S) BY MOUTH ONCE A DAY. [facility] ROSUVASTATI N 40 mg tablet 2021-08 0-04 00:00: 00 Yes [id number] TAKE ONE (1) TABLET(S) BY MOUTH ONCE A DAY AT BEDTIME. [facility] LISINOPRIL 2.5 mg tablet 2021-08 0-04 00:00: 00 Yes [id number] TAKE ONE (1) TABLET(S) BY MOUTH ONCE A DAY. [facility] FENOFIBRATE 160 mg tablet 2021-08 0-04 00:00: 00 Yes [id number] TAKE ONE (1) TABLET(S) BY MOUTH ONCE A DAY. [facility] ROSUVASTATI N 40 mg tablet 2021-08 0- 00:00: 00 Yes [id number] TAKE ONE (1) TABLET(S) BY MOUTH ONCE A DAY AT BEDTIME. [facility] LISINOPRIL 2.5 mg tablet 2021-08 0- 00:00: 00 Yes [id number] TAKE ONE (1) TABLET(S) BY MOUTH ONCE A DAY. [facility] FENOFIBRATE 160 mg tablet 2021-08 0-04 00:00: 00 Yes [id number] TAKE ONE (1) TABLET(S) BY MOUTH ONCE A DAY. [facility] ROSUVASTATI N 40 mg tablet 2021-08 0-04 00:00: 00 Yes [id number] TAKE ONE (1) TABLET(S) BY MOUTH ONCE A DAY AT BEDTIME. [facility] LISINOPRIL 2.5 mg tablet 2021-08 0-04 00:00: 00 Yes [id number] TAKE ONE (1) TABLET(S) BY MOUTH ONCE A DAY. [facility] FENOFIBRATE 160 mg tablet 2021-08 0-04 00:00: 00 Yes [id number] TAKE ONE (1) TABLET(S) BY MOUTH ONCE A DAY. [facility] ROSUVASTATI N 40 mg tablet 2021- 0-04 00:00: 00 Yes [id number] TAKE ONE (1) TABLET(S) BY MOUTH ONCE A DAY AT BEDTIME. [facility] LISINOPRIL 2.5 mg tablet 2021- 0-04 00:00: 00 08-18 00:00 :00 No [id number] TAKE ONE (1) TABLET(S) BY MOUTH ONCE A DAY. [facility] FENOFIBRATE 160 mg tablet 2021- 0-04 00:00: 00 08-18 00:00 :00 No [id number] TAKE ONE (1) TABLET(S) BY MOUTH ONCE A DAY. [facility] ROSUVASTATI N 40 mg tablet 2021- 0-04 00:00: 00 08-18 00:00 :00 No [id number] TAKE ONE (1) TABLET(S) BY MOUTH ONCE A DAY AT BEDTIME. [facility] FENOFIBRATE 160 mg tablet 2021- 0-04 00:00: 00 08-18 00:00 :00 No [id number] TAKE ONE (1) TABLET(S) BY MOUTH ONCE A DAY. [facility] ROSUVASTATI N 40 mg tablet 2021- 0-04 00:00: 00 08-18 00:00 :00 No [id number] TAKE ONE (1) TABLET(S) BY MOUTH ONCE A DAY AT BEDTIME. [facility] LISINOPRIL 2.5 mg tablet 2021-08 0-04 00:00: 00 08-18 00:00 :00 No [id number] TAKE ONE (1) TABLET(S) BY MOUTH ONCE A DAY. [facility] FENOFIBRATE 160 mg tablet 2021- 0-04 00:00: 00 08-18 00:00 :00 No [id number] TAKE ONE (1) TABLET(S) BY MOUTH ONCE A DAY. [facility] ROSUVASTATI N 40 mg tablet 2021- 0-04 00:00: 00 08-18 00:00 :00 No [id number] TAKE ONE (1) TABLET(S) BY MOUTH ONCE A DAY AT BEDTIME. [facility] LISINOPRIL 2.5 mg tablet 2021- 0-04 00:00: 00 2023- 01-10 00:00 :00 No [id number] TAKE ONE (1) TABLET(S) BY MOUTH ONCE A DAY. [facility] FINASTERIDE 5 mg tablet 2021-08 0-04 00:00: 00 08-10 00:00 :00 No [id number] TAKE ONE (1) TABLET(S) BY MOUTH ONCE A DAY. [facility] FINASTERIDE 5 mg tablet 2021- 0-04 00:00: 00 08-10 00:00 :00 No [id number] TAKE ONE (1) TABLET(S) BY MOUTH ONCE A DAY. [facility] TAMSULOSIN 0.4 mg 24 hr capsule 2021-0 928 00:00: 00 Yes [id number] [id number] TAKE TWO (2) CAPSULE(S) BY MOUTH ONCE DAILY AT BEDTIME. [facility] TAMSULOSIN 0.4 mg 24 hr capsule 2-0 928 00:00: 00 Yes [id number] [id number] TAKE TWO (2) CAPSULE(S) BY MOUTH ONCE DAILY AT BEDTIME. [facility] TAMSULOSIN 0.4 mg 24 hr capsule 2-0 9-28 00:00: 00 Yes [id number] 9102 TAKE TWO (2) CAPSULE(S) BY MOUTH ONCE DAILY AT BEDTIME. [facility] TAMSULOSIN 0.4 mg 24 hr capsule 2-0 928 00:00: 00 Yes [id number] [id number] TAKE TWO (2) CAPSULE(S) BY MOUTH ONCE DAILY AT BEDTIME. [facility] TAMSULOSIN 0.4 mg 24 hr capsule 2-0 9-28 00:00: 00 Yes [id number] 9102 TAKE TWO (2) CAPSULE(S) BY MOUTH ONCE DAILY AT BEDTIME. [facility] TAMSULOSIN 0.4 mg 24 hr capsule 2-0 9-28 00:00: 00 Yes [id number] [id number] TAKE TWO (2) CAPSULE(S) BY MOUTH ONCE DAILY AT BEDTIME. [facility] TAMSULOSIN 0.4 mg 24 hr capsule 2022-0 9-28 00:00: 00 Yes [id number] [id number] TAKE TWO (2) CAPSULE(S) BY MOUTH ONCE DAILY AT BEDTIME. [facility] TAMSULOSIN 0.4 mg 24 hr capsule 2022-0 928 00:00: 00 Yes [id number] [id number] TAKE TWO (2) CAPSULE(S) BY MOUTH ONCE DAILY AT BEDTIME. [facility] TAMSULOSIN 0.4 mg 24 hr capsule 2022-0 9-28 00:00: 00 Yes [id number] [id number] TAKE TWO (2) CAPSULE(S) BY MOUTH ONCE DAILY AT BEDTIME. [facility] TAMSULOSIN 0.4 mg 24 hr capsule 2022-0 9-28 00:00: 00 Yes [id number] 9102 TAKE TWO (2) CAPSULE(S) BY MOUTH ONCE DAILY AT BEDTIME. [facility] TAMSULOSIN 0.4 mg 24 hr capsule 2-0 928 00:00: 00 Yes [id number] [id number] TAKE TWO (2) CAPSULE(S) BY MOUTH ONCE DAILY AT BEDTIME. [facility] TAMSULOSIN 0.4 mg 24 hr capsule 2-0 928 00:00: 00 Yes [id number] 9102 TAKE TWO (2) CAPSULE(S) BY MOUTH ONCE DAILY AT BEDTIME. [facility] TAMSULOSIN 0.4 mg 24 hr capsule 2-0 28 00:00: 00 Yes [id number] 9102 TAKE TWO (2) CAPSULE(S) BY MOUTH ONCE DAILY AT BEDTIME. [facility] TAMSULOSIN 0.4 mg 24 hr capsule 2-0 928 00:00: 00 Yes [id number] 9102 TAKE TWO (2) CAPSULE(S) BY MOUTH ONCE DAILY AT BEDTIME. [facility] TAMSULOSIN 0.4 mg 24 hr capsule 2022-0 9-28 00:00: 00 Yes [id number] 9102 TAKE TWO (2) CAPSULE(S) BY MOUTH ONCE DAILY AT BEDTIME. [facility] TAMSULOSIN 0.4 mg 24 hr capsule 2022-0 9-28 00:00: 00 Yes [id number] 9102 TAKE TWO (2) CAPSULE(S) BY MOUTH ONCE DAILY AT BEDTIME. [facility] TAMSULOSIN 0.4 mg 24 hr capsule 2022-0 928 00:00: 00 Yes [id number] 9102 TAKE TWO (2) CAPSULE(S) BY MOUTH ONCE DAILY AT BEDTIME. [facility] TAMSULOSIN 0.4 mg 24 hr capsule 2022-0 9-28 00:00: 00 Yes [id number] 9102 TAKE TWO (2) CAPSULE(S) BY MOUTH ONCE DAILY AT BEDTIME. [facility] TAMSULOSIN 0.4 mg 24 hr capsule 2022-0 9-28 00:00: 00 Yes [id number] 9102 TAKE TWO (2) CAPSULE(S) BY MOUTH ONCE DAILY AT BEDTIME. [facility] TAMSULOSIN 0.4 mg 24 hr capsule 2022-0 9-28 00:00: 00 Yes [id number] 9102 TAKE TWO (2) CAPSULE(S) BY MOUTH ONCE DAILY AT BEDTIME. [facility] TAMSULOSIN 0.4 mg 24 hr capsule 2022-0 928 00:00: 00 Yes [id number] 9102 TAKE TWO (2) CAPSULE(S) BY MOUTH ONCE DAILY AT BEDTIME. [facility] TAMSULOSIN 0.4 mg 24 hr capsule 2022-0 9-28 00:00: 00 Yes [id number] 9102 TAKE TWO (2) CAPSULE(S) BY MOUTH ONCE DAILY AT BEDTIME. [facility] TAMSULOSIN 0.4 mg 24 hr capsule 2022-0 928 00:00: 00 Yes [id number] 9102 TAKE TWO (2) CAPSULE(S) BY MOUTH ONCE DAILY AT BEDTIME. [facility] TAMSULOSIN 0.4 mg 24 hr capsule 2022-0 9-28 00:00: 00 Yes [id number] 9102 TAKE TWO (2) CAPSULE(S) BY MOUTH ONCE DAILY AT BEDTIME. [facility] TAMSULOSIN 0.4 mg 24 hr capsule 2022-0 9-28 00:00: 00 Yes [id number] 9102 TAKE TWO (2) CAPSULE(S) BY MOUTH ONCE DAILY AT BEDTIME. [facility] TAMSULOSIN 0.4 mg 24 hr capsule 2022-0 9-28 00:00: 00 Yes [id number] 9102 TAKE TWO (2) CAPSULE(S) BY MOUTH ONCE DAILY AT BEDTIME. [facility] TAMSULOSIN 0.4 mg 24 hr capsule 05-06 00:00: 00 Yes [id number] 9102 TAKE TWO (2) CAPSULE(S) BY MOUTH ONCE DAILY AT BEDTIME. [facility] TAMSULOSIN 0.4 mg 24 hr capsule 05-06 00:00: 00 Yes [id number] 9102 TAKE TWO (2) CAPSULE(S) BY MOUTH ONCE DAILY AT BEDTIME. [facility] TAMSULOSIN 0.4 mg 24 hr capsule 05-06 00:00: 00 Yes [id number] 9102 TAKE TWO (2) CAPSULE(S) BY MOUTH ONCE DAILY AT BEDTIME. [facility] TAMSULOSIN 0.4 mg 24 hr capsule 05-06 00:00: 00 Yes [id number] 9102 TAKE TWO (2) CAPSULE(S) BY MOUTH ONCE DAILY AT BEDTIME. [facility] TAMSULOSIN 0.4 mg 24 hr capsule 05-06 00:00: 00 Yes [id number] 9102 TAKE TWO (2) CAPSULE(S) BY MOUTH ONCE DAILY AT BEDTIME. [facility] TAMSULOSIN 0.4 mg 24 hr capsule 05-06 00:00: 00 Yes [id number] 9102 TAKE TWO (2) CAPSULE(S) BY MOUTH ONCE DAILY AT BEDTIME. [facility] TAMSULOSIN 0.4 mg 24 hr capsule 05-06 00:00: 00 08-10 00:00 :00 No [id number] 9102 TAKE TWO (2) CAPSULE(S) BY MOUTH ONCE DAILY AT BEDTIME. [facility] TAMSULOSIN 0.4 mg 24 hr capsule 05-06 00:00: 00 08-10 00:00 :00 No [id number] 9102 TAKE TWO (2) CAPSULE(S) BY MOUTH ONCE DAILY AT BEDTIME. [facility] iopamidol (ISOVUE 370-500 mL) injection 80 mL 05-04 19:11: 00 05-04 19:21 :00 No [id number] 80mL 80 mL, Intravenou s, ONCE, 1 dose, On 05/04/22 at 1430, Routine [facility] gabapentin 100 mg capsule 2021-0 04-22 00:00: 00 Yes [id number] 300mg Take 3 capsules by mouth at bedtime. [facility] gabapentin 100 mg capsule 2021-0 04-22 00:00: 00 Yes [id number] 300mg Take 3 capsules by mouth at bedtime. [facility] capecitabin e 500 mg tablet 2021-0 04-22 00:00: 00 Yes [id number] 1500mg Take 3 tablets by mouth every morning and evening for 14 days. Then 7 days off . Take within 30 minutes of finishing a meal. [facility] gabapentin 100 mg capsule 2021-0 04-22 00:00: 00 Yes [id number] 300mg Take 3 capsules by mouth at bedtime. [facility] capecitabin e 500 mg tablet 2021-0 04-22 00:00: 00 Yes [id number] 1500mg Take 3 tablets by mouth every morning and evening for 14 days. Then 7 days off . Take within 30 minutes of finishing a meal. [facility] gabapentin 100 mg capsule 2021-0 04-22 00:00: 00 Yes [id number] 300mg Take 3 capsules by mouth at bedtime. [facility] capecitabin e 500 mg tablet 2021-0 04-22 00:00: 00 Yes [id number] 1500mg Take 3 tablets by mouth every morning and evening for 14 days. Then 7 days off . Take within 30 minutes of finishing a meal. [facility] gabapentin 100 mg capsule 2021-0 04-22 00:00: 00 Yes [id number] 300mg Take 3 capsules by mouth at bedtime. [facility] capecitabin e 500 mg tablet 2021-0 04-22 00:00: 00 Yes [id number] 1500mg Take 3 tablets by mouth every morning and evening for 14 days. Then 7 days off . Take within 30 minutes of finishing a meal. [facility] gabapentin 100 mg capsule 2021-0 04-22 00:00: 00 Yes [id number] 300mg Take 3 capsules by mouth at bedtime. [facility] capecitabin e 500 mg tablet 2-0 14 00:00: 00 Yes [id number] 1500mg Take 3 tablets by mouth every morning and evening for 14 days. Then 7 days off . Take within 30 minutes of finishing a meal. [facility] gabapentin 100 mg capsule 2021-0 -14 00:00: 00 Yes [id number] 300mg Take 3 capsules by mouth at bedtime. [facility] capecitabin e 500 mg tablet 2-0 -14 00:00: 00 Yes [id number] 04 1500mg Take 3 tablets by mouth every morning and evening for 14 days. Then 7 days off . Take within 30 minutes of finishing a meal. [facility] gabapentin 100 mg capsule 2-0 -14 00:00: 00 Yes [id number] 300mg Take 3 capsules by mouth at bedtime. [facility] capecitabin e 500 mg tablet 2021-0 04-22 00:00: 00 Yes [id number] 04 1500mg Take 3 tablets by mouth every morning and evening for 14 days. Then 7 days off . Take within 30 minutes of finishing a meal. [facility] gabapentin 100 mg capsule 2021-0 14 00:00: 00 Yes [id number] 300mg Take 3 capsules by mouth at bedtime. [facility] capecitabin e 500 mg tablet 2021-0 14 00:00: 00 Yes [id number] 04 1500mg Take 3 tablets by mouth every morning and evening for 14 days. Then 7 days off . Take within 30 minutes of finishing a meal. [facility] gabapentin 100 mg capsule 2-0 14 00:00: 00 Yes [id number] 300mg Take 3 capsules by mouth at bedtime. [facility] capecitabin e 500 mg tablet 2-0 -14 00:00: 00 Yes [id number] 04 1500mg Take 3 tablets by mouth every morning and evening for 14 days. Then 7 days off . Take within 30 minutes of finishing a meal. [facility] capecitabin e 500 mg tablet 2-0 -14 00:00: 00 Yes [id number] 04 1500mg Take 3 tablets by mouth every morning and evening for 14 days. Then 7 days off . Take within 30 minutes of finishing a meal. [facility] capecitabin e 500 mg tablet 04-22 00:00: 00 Yes [id number] 04 1500mg Take 3 tablets by mouth every morning and evening for 14 days. Then 7 days off . Take within 30 minutes of finishing a meal. [facility] capecitabin e 500 mg tablet 04-22 00:00: 00 Yes [id number] 04 1500mg Take 3 tablets by mouth every morning and evening for 14 days. Then 7 days off . Take within 30 minutes of finishing a meal. [facility] capecitabin e 500 mg tablet 04-22 00:00: 00 Yes [id number] 04 1500mg Take 3 tablets by mouth every morning and evening for 14 days. Then 7 days off . Take within 30 minutes of finishing a meal. [facility] capecitabin e 500 mg tablet 04-22 00:00: 00 Yes [id number] 04 1500mg Take 3 tablets by mouth every morning and evening for 14 days. Then 7 days off . Take within 30 minutes of finishing a meal. [facility] capecitabin e 500 mg tablet 04-22 00:00: 00 Yes [id number] 04 1500mg Take 3 tablets by mouth every morning and evening for 14 days. Then 7 days off . Take within 30 minutes of finishing a meal. [facility] capecitabin e 500 mg tablet 04-22 00:00: 00 Yes [id number] 04 1500mg Take 3 tablets by mouth every morning and evening for 14 days. Then 7 days off . Take within 30 minutes of finishing a meal. [facility] capecitabin e 500 mg tablet 04-22 00:00: 00 Yes [id number] 04 1500mg Take 3 tablets by mouth every morning and evening for 14 days. Then 7 days off . Take within 30 minutes of finishing a meal. [facility] capecitabin e 500 mg tablet 04-22 00:00: 00 Yes [id number] 04 1500mg Take 3 tablets by mouth every morning and evening for 14 days. Then 7 days off . Take within 30 minutes of finishing a meal. [facility] capecitabin e 500 mg tablet 0 14 00:00: 00 06-04 00:00 :00 No [id number] 04 1500mg Take 3 tablets by mouth every morning and evening for 14 days. Then 7 days off . Take within 30 minutes of finishing a meal. [facility] capecitabin e 500 mg tablet 14 00:00: 00 06-04 00:00 :00 No [id number] 04 1500mg Take 3 tablets by mouth every morning and evening for 14 days. Then 7 days off . Take within 30 minutes of finishing a meal. [facility] gabapentin 100 mg capsule 2021-0 14 00:00: 00 05-13 00:00 :00 No [id number] 300mg Take 3 capsules by mouth at bedtime. [facility] gabapentin 100 mg capsule 0 14 00:00: 00 05-13 00:00 :00 No [id number] 300mg Take 3 capsules by mouth at bedtime. [facility] gabapentin 100 mg capsule 0 14 00:00: 00 05-13 00:00 :00 No [id number] 300mg Take 3 capsules by mouth at bedtime. [facility] gabapentin 100 mg capsule 2021-0 18 00:00: 00 04-22 00:00 :00 No [id number] 300mg Take 3 capsules by mouth at bedtime. [facility] gabapentin 100 mg capsule 2021-0 18 00:00: 00 04-22 00:00 :00 No [id number] 300mg Take 3 capsules by mouth at bedtime. [facility] dronabinoL 2.5 mg capsule 2021-17 00:00: 00 Yes [id number] 2.5mg Take 1 capsule by mouth daily. Take 1 capsule by mouth daily. [facility] dronabinoL 2.5 mg capsule 2022-0 8-17 00:00: 00 Yes [id number] 2.5mg Take 1 capsule by mouth daily. Take 1 capsule by mouth daily. [facility] dronabinoL 2.5 mg capsule 2-0 8-17 00:00: 00 Yes [id number] 2.5mg Take 1 capsule by mouth daily. Take 1 capsule by mouth daily. [facility] dronabinoL 2.5 mg capsule 2-0 8-17 00:00: 00 Yes [id number] 2.5mg Take 1 capsule by mouth daily. Take 1 capsule by mouth daily. [facility] dronabinoL 2.5 mg capsule 2-0 8-17 00:00: 00 Yes [id number] 2.5mg Take 1 capsule by mouth daily. Take 1 capsule by mouth daily. [facility] dronabinoL 2.5 mg capsule 2-0 8-17 00:00: 00 Yes [id number] 2.5mg Take 1 capsule by mouth daily. Take 1 capsule by mouth daily. [facility] dronabinoL 2.5 mg capsule 2-0 8-17 00:00: 00 Yes [id number] 2.5mg Take 1 capsule by mouth daily. Take 1 capsule by mouth daily. [facility] dronabinoL 2.5 mg capsule 2-0 8-17 00:00: 00 Yes [id number] 2.5mg Take 1 capsule by mouth daily. Take 1 capsule by mouth daily. [facility] dronabinoL 2.5 mg capsule 2-0 8-17 00:00: 00 Yes [id number] 2.5mg Take 1 capsule by mouth daily. Take 1 capsule by mouth daily. [facility] dronabinoL 2.5 mg capsule 2-0 8-17 00:00: 00 Yes [id number] 2.5mg Take 1 capsule by mouth daily. Take 1 capsule by mouth daily. [facility] dronabinoL 2.5 mg capsule 2-0 8-17 00:00: 00 Yes [id number] 2.5mg Take 1 capsule by mouth daily. Take 1 capsule by mouth daily. [facility] dronabinoL 2.5 mg capsule 2022-0 8-17 00:00: 00 Yes [id number] 2.5mg Take 1 capsule by mouth daily. Take 1 capsule by mouth daily. [facility] dronabinoL 2.5 mg capsule 2-0 8-17 00:00: 00 Yes [id number] 2.5mg Take 1 capsule by mouth daily. Take 1 capsule by mouth daily. [facility] dronabinoL 2.5 mg capsule 2-0 8-17 00:00: 00 Yes [id number] 2.5mg Take 1 capsule by mouth daily. Take 1 capsule by mouth daily. [facility] dronabinoL 2.5 mg capsule 2-0 8-17 00:00: 00 Yes [id number] 2.5mg Take 1 capsule by mouth daily. Take 1 capsule by mouth daily. [facility] dronabinoL 2.5 mg capsule 2-0 8-17 00:00: 00 Yes [id number] 2.5mg Take 1 capsule by mouth daily. Take 1 capsule by mouth daily. [facility] dronabinoL 2.5 mg capsule 2-0 8-17 00:00: 00 Yes [id number] 2.5mg Take 1 capsule by mouth daily. Take 1 capsule by mouth daily. [facility] dronabinoL 2.5 mg capsule 2-0 8-17 00:00: 00 Yes [id number] 2.5mg Take 1 capsule by mouth daily. Take 1 capsule by mouth daily. [facility] dronabinoL 2.5 mg capsule 2-0 8-17 00:00: 00 Yes [id number] 2.5mg Take 1 capsule by mouth daily. Take 1 capsule by mouth daily. [facility] dronabinoL 2.5 mg capsule 2-0 8-17 00:00: 00 Yes [id number] 2.5mg Take 1 capsule by mouth daily. Take 1 capsule by mouth daily. [facility] dronabinoL 2.5 mg capsule 2-0 8-17 00:00: 00 Yes [id number] 2.5mg Take 1 capsule by mouth daily. Take 1 capsule by mouth daily. [facility] dronabinoL 2.5 mg capsule 2-0 8-17 00:00: 00 Yes [id number] 2.5mg Take 1 capsule by mouth daily. Take 1 capsule by mouth daily. [facility] dronabinoL 2.5 mg capsule 2-0 8-17 00:00: 00 Yes [id number] 2.5mg Take 1 capsule by mouth daily. Take 1 capsule by mouth daily. [facility] dronabinoL 2.5 mg capsule 2-0 8-17 00:00: 00 Yes [id number] 2.5mg Take 1 capsule by mouth daily. Take 1 capsule by mouth daily. [facility] dronabinoL 2.5 mg capsule 2-0 8-17 00:00: 00 Yes [id number] 2.5mg Take 1 capsule by mouth daily. Take 1 capsule by mouth daily. [facility] dronabinoL 2.5 mg capsule 2-0 8-17 00:00: 00 Yes [id number] 2.5mg Take 1 capsule by mouth daily. Take 1 capsule by mouth daily. [facility] dronabinoL 2.5 mg capsule 2-0 8-17 00:00: 00 Yes [id number] 2.5mg Take 1 capsule by mouth daily. Take 1 capsule by mouth daily. [facility] dronabinoL 2.5 mg capsule 2-0 8-17 00:00: 00 Yes [id number] 2.5mg Take 1 capsule by mouth daily. Take 1 capsule by mouth daily. [facility] dronabinoL 2.5 mg capsule 2-0 8-17 00:00: 00 Yes [id number] 2.5mg Take 1 capsule by mouth daily. Take 1 capsule by mouth daily. [facility] dronabinoL 2.5 mg capsule 2-0 8-17 00:00: 00 Yes [id number] 2.5mg Take 1 capsule by mouth daily. Take 1 capsule by mouth daily. [facility] dronabinoL 2.5 mg capsule 2-0 8-17 00:00: 00 Yes [id number] 2.5mg Take 1 capsule by mouth daily. Take 1 capsule by mouth daily. [facility] dronabinoL 2.5 mg capsule 2-0 8-17 00:00: 00 Yes [id number] 2.5mg Take 1 capsule by mouth daily. Take 1 capsule by mouth daily. [facility] dronabinoL 2.5 mg capsule 2-0 8-17 00:00: 00 Yes [id number] 2.5mg Take 1 capsule by mouth daily. Take 1 capsule by mouth daily. [facility] dronabinoL 2.5 mg capsule 2-0 8-17 00:00: 00 Yes [id number] 2.5mg Take 1 capsule by mouth daily. Take 1 capsule by mouth daily. [facility] dronabinoL 2.5 mg capsule 2-0 8-17 00:00: 00 Yes [id number] 2.5mg Take 1 capsule by mouth daily. Take 1 capsule by mouth daily. [facility] dronabinoL 2.5 mg capsule 2-0 8-17 00:00: 00 Yes [id number] 2.5mg Take 1 capsule by mouth daily. Take 1 capsule by mouth daily. [facility] dronabinoL 2.5 mg capsule 2-0 8-17 00:00: 00 Yes [id number] 2.5mg Take 1 capsule by mouth daily. Take 1 capsule by mouth daily. [facility] dronabinoL 2.5 mg capsule 2-0 8-17 00:00: 00 Yes [id number] 2.5mg Take 1 capsule by mouth daily. Take 1 capsule by mouth daily. [facility] dronabinoL 2.5 mg capsule 2-0 8-17 00:00: 00 Yes [id number] 2.5mg Take 1 capsule by mouth daily. Take 1 capsule by mouth daily. [facility] dronabinoL 2.5 mg capsule 2-0 8-17 00:00: 00 Yes [id number] 2.5mg Take 1 capsule by mouth daily. Take 1 capsule by mouth daily. [facility] dronabinoL 2.5 mg capsule 2-0 8-17 00:00: 00 Yes [id number] 2.5mg Take 1 capsule by mouth daily. Take 1 capsule by mouth daily. [facility] dronabinoL 2.5 mg capsule 2-0 8-17 00:00: 00 Yes [id number] 2.5mg Take 1 capsule by mouth daily. Take 1 capsule by mouth daily. [facility] 2.5 mg capsule 2-0 8-17 00:00: 00 Yes [id number] 2.5mg Take 1 capsule by mouth daily. Take 1 capsule by mouth daily. [facility] 2.5 mg capsule 2-0 8-17 00:00: 00 Yes [id number] 2.5mg Take 1 capsule by mouth daily. Take 1 capsule by mouth daily. [facility] 2.5 mg capsule 2-0 8-17 00:00: 00 Yes [id number] 2.5mg Take 1 capsule by mouth daily. Take 1 capsule by mouth daily. [facility] 2.5 mg capsule 2021-0 8-17 00:00: 00 Yes [id number] 2.5mg Take 1 capsule by mouth daily. Take 1 capsule by mouth daily. [facility] 2.5 mg capsule 2021-0 8-17 00:00: 00 Yes [id number] 2.5mg Take 1 capsule by mouth daily. Take 1 capsule by mouth daily. [facility] 2.5 mg capsule 2-0 8-17 00:00: 00 Yes [id number] 2.5mg Take 1 capsule by mouth daily. Take 1 capsule by mouth daily. [facility] 2.5 mg capsule 2-0 8-17 00:00: 00 Yes [id number] 2.5mg Take 1 capsule by mouth daily. Take 1 capsule by mouth daily. [facility] 2.5 mg capsule 2-0 8-17 00:00: 00 Yes [id number] 2.5mg Take 1 capsule by mouth daily. Take 1 capsule by mouth daily. [facility] 2.5 mg capsule 2022-0 8-17 00:00: 00 Yes [id number] 2.5mg Take 1 capsule by mouth daily. Take 1 capsule by mouth daily. [facility] 2.5 mg capsule 2-0 8-17 00:00: 00 Yes [id number] 2.5mg Take 1 capsule by mouth daily. Take 1 capsule by mouth daily. [facility] 2.5 mg capsule 2021-0 8-17 00:00: 00 Yes [id number] 2.5mg Take 1 capsule by mouth daily. Take 1 capsule by mouth daily. [facility] 2.5 mg capsule 2-0 8-17 00:00: 00 Yes [id number] 2.5mg Take 1 capsule by mouth daily. Take 1 capsule by mouth daily. [facility] 2.5 mg capsule 2021-0 8-17 00:00: 00 Yes [id number] 2.5mg Take 1 capsule by mouth daily. Take 1 capsule by mouth daily. [facility] 2.5 mg capsule 2021-0 8-17 00:00: 00 Yes [id number] 2.5mg Take 1 capsule by mouth daily. Take 1 capsule by mouth daily. [facility] 2.5 mg capsule 2021-0 8-17 00:00: 00 Yes [id number] 2.5mg Take 1 capsule by mouth daily. Take 1 capsule by mouth daily. [facility] 2.5 mg capsule 2021-0 8-17 00:00: 00 Yes [id number] 2.5mg Take 1 capsule by mouth daily. Take 1 capsule by mouth daily. [facility] 2.5 mg capsule 2-0 8-17 00:00: 00 Yes [id number] 2.5mg Take 1 capsule by mouth daily. Take 1 capsule by mouth daily. [facility] 2.5 mg capsule 2-0 8-17 00:00: 00 Yes [id number] 2.5mg Take 1 capsule by mouth daily. Take 1 capsule by mouth daily. [facility] 2.5 mg capsule 2-0 8-17 00:00: 00 Yes [id number] 2.5mg Take 1 capsule by mouth daily. Take 1 capsule by mouth daily. [facility] 2.5 mg capsule 2-0 8-17 00:00: 00 Yes [id number] 2.5mg Take 1 capsule by mouth daily. Take 1 capsule by mouth daily. [facility] 2.5 mg capsule 2-0 8-17 00:00: 00 Yes [id number] 2.5mg Take 1 capsule by mouth daily. Take 1 capsule by mouth daily. [facility] 2.5 mg capsule 2-0 8-17 00:00: 00 Yes [id number] 2.5mg Take 1 capsule by mouth daily. Take 1 capsule by mouth daily. [facility] 2.5 mg capsule 2-0 8-17 00:00: 00 Yes [id number] 2.5mg Take 1 capsule by mouth daily. Take 1 capsule by mouth daily. [facility] 2.5 mg capsule 2-0 8-17 00:00: 00 Yes [id number] 2.5mg Take 1 capsule by mouth daily. Take 1 capsule by mouth daily. [facility] 2.5 mg capsule 2-0 8-17 00:00: 00 Yes [id number] 2.5mg Take 1 capsule by mouth daily. Take 1 capsule by mouth daily. [facility] 2.5 mg capsule 2-0 8-17 00:00: 00 Yes [id number] 2.5mg Take 1 capsule by mouth daily. Take 1 capsule by mouth daily. [facility] 2.5 mg capsule 2-0 8-17 00:00: 00 Yes [id number] 2.5mg Take 1 capsule by mouth daily. Take 1 capsule by mouth daily. [facility] 2.5 mg capsule 2-0 8-17 00:00: 00 Yes [id number] 2.5mg Take 1 capsule by mouth daily. Take 1 capsule by mouth daily. [facility] 2.5 mg capsule 2-0 8-17 00:00: 00 Yes [id number] 2.5mg Take 1 capsule by mouth daily. Take 1 capsule by mouth daily. [facility] 2.5 mg capsule 2-0 8-17 00:00: 00 Yes [id number] 2.5mg Take 1 capsule by mouth daily. Take 1 capsule by mouth daily. [facility] 2.5 mg capsule 2-0 8-17 00:00: 00 Yes [id number] 2.5mg Take 1 capsule by mouth daily. Take 1 capsule by mouth daily. [facility] 2.5 mg capsule 2-0 8-17 00:00: 00 Yes [id number] 2.5mg Take 1 capsule by mouth daily. Take 1 capsule by mouth daily. [facility] 2.5 mg capsule 2-0 8-17 00:00: 00 Yes [id number] 2.5mg Take 1 capsule by mouth daily. Take 1 capsule by mouth daily. [facility] 2.5 mg capsule 2-0 8-17 00:00: 00 Yes [id number] 2.5mg Take 1 capsule by mouth daily. Take 1 capsule by mouth daily. [facility] 2.5 mg capsule 2-0 8-17 00:00: 00 Yes [id number] 2.5mg Take 1 capsule by mouth daily. Take 1 capsule by mouth daily. [facility] 2.5 mg capsule 2-0 8-17 00:00: 00 Yes [id number] 2.5mg Take 1 capsule by mouth daily. Take 1 capsule by mouth daily. [facility] 2.5 mg capsule 2-0 8-17 00:00: 00 Yes [id number] 2.5mg Take 1 capsule by mouth daily. Take 1 capsule by mouth daily. [facility] 2.5 mg capsule 2022-0 8-17 00:00: 00 Yes [id number] 2.5mg Take 1 capsule by mouth daily. Take 1 capsule by mouth daily. [facility] 2.5 mg capsule 2-0 8-17 00:00: 00 Yes [id number] 2.5mg Take 1 capsule by mouth daily. Take 1 capsule by mouth daily. [facility] 2.5 mg capsule 2-0 8-17 00:00: 00 Yes [id number] 2.5mg Take 1 capsule by mouth daily. Take 1 capsule by mouth daily. [facility] 2.5 mg capsule 2-0 8-17 00:00: 00 Yes [id number] 2.5mg Take 1 capsule by mouth daily. Take 1 capsule by mouth daily. [facility] 2.5 mg capsule 2-0 8-17 00:00: 00 Yes [id number] 2.5mg Take 1 capsule by mouth daily. Take 1 capsule by mouth daily. [facility] 2.5 mg capsule 2-0 8-17 00:00: 00 Yes [id number] 2.5mg Take 1 capsule by mouth daily. Take 1 capsule by mouth daily. [facility] 2.5 mg capsule 2-0 8-17 00:00: 00 Yes [id number] 2.5mg Take 1 capsule by mouth daily. Take 1 capsule by mouth daily. [facility] 2.5 mg capsule 2-0 8-17 00:00: 00 Yes [id number] 2.5mg Take 1 capsule by mouth daily. Take 1 capsule by mouth daily. [facility] 2.5 mg capsule 2-0 8-17 00:00: 00 Yes [id number] 2.5mg Take 1 capsule by mouth daily. Take 1 capsule by mouth daily. [facility] 2.5 mg capsule 2-0 8-17 00:00: 00 Yes [id number] 2.5mg Take 1 capsule by mouth daily. Take 1 capsule by mouth daily. [facility] 2.5 mg capsule 2-0 8-17 00:00: 00 Yes [id number] 2.5mg Take 1 capsule by mouth daily. Take 1 capsule by mouth daily. [facility] 2.5 mg capsule 2-0 8-17 00:00: 00 Yes [id number] 2.5mg Take 1 capsule by mouth daily. Take 1 capsule by mouth daily. [facility] 2.5 mg capsule 2-0 8-17 00:00: 00 Yes [id number] 2.5mg Take 1 capsule by mouth daily. Take 1 capsule by mouth daily. [facility] 2.5 mg capsule 2-0 8-17 00:00: 00 Yes [id number] 2.5mg Take 1 capsule by mouth daily. Take 1 capsule by mouth daily. [facility] 2.5 mg capsule 2-0 8-17 00:00: 00 Yes [id number] 2.5mg Take 1 capsule by mouth daily. Take 1 capsule by mouth daily. [facility] 2.5 mg capsule 2021-0 8-17 00:00: 00 Yes [id number] 2.5mg Take 1 capsule by mouth daily. Take 1 capsule by mouth daily. [facility] 2.5 mg capsule 2021-0 8-17 00:00: 00 Yes [id number] 2.5mg Take 1 capsule by mouth daily. Take 1 capsule by mouth daily. [facility] 2.5 mg capsule 2-0 8-17 00:00: 00 Yes [id number] 2.5mg Take 1 capsule by mouth daily. Take 1 capsule by mouth daily. [facility] 2.5 mg capsule 2-0 8-17 00:00: 00 Yes [id number] 2.5mg Take 1 capsule by mouth daily. Take 1 capsule by mouth daily. [facility] 2.5 mg capsule 2-0 8-17 00:00: 00 Yes [id number] 2.5mg Take 1 capsule by mouth daily. Take 1 capsule by mouth daily. [facility] 2.5 mg capsule 2-0 8-17 00:00: 00 Yes [id number] 2.5mg Take 1 capsule by mouth daily. Take 1 capsule by mouth daily. [facility] 2.5 mg capsule 2-0 8-17 00:00: 00 Yes [id number] 2.5mg Take 1 capsule by mouth daily. Take 1 capsule by mouth daily. [facility] 2.5 mg capsule 2-0 8-17 00:00: 00 Yes [id number] 2.5mg Take 1 capsule by mouth daily. Take 1 capsule by mouth daily. [facility] 2.5 mg capsule 2-0 8-17 00:00: 00 Yes [id number] 2.5mg Take 1 capsule by mouth daily. Take 1 capsule by mouth daily. [facility] 2.5 mg capsule 2-0 8-17 00:00: 00 Yes [id number] 2.5mg Take 1 capsule by mouth daily. Take 1 capsule by mouth daily. [facility] 2.5 mg capsule 2-0 8-17 00:00: 00 Yes [id number] 2.5mg Take 1 capsule by mouth daily. Take 1 capsule by mouth daily. [facility] 2.5 mg capsule 2-0 8-17 00:00: 00 Yes [id number] 2.5mg Take 1 capsule by mouth daily. Take 1 capsule by mouth daily. [facility] 2.5 mg capsule 2-0 8-17 00:00: 00 Yes [id number] 2.5mg Take 1 capsule by mouth daily. Take 1 capsule by mouth daily. [facility] 2.5 mg capsule 2-0 8-17 00:00: 00 Yes [id number] 2.5mg Take 1 capsule by mouth daily. Take 1 capsule by mouth daily. [facility] 2.5 mg capsule 2-0 8-17 00:00: 00 Yes [id number] 2.5mg Take 1 capsule by mouth daily. Take 1 capsule by mouth daily. [facility] 2.5 mg capsule 2-0 8-17 00:00: 00 Yes [id number] 2.5mg Take 1 capsule by mouth daily. Take 1 capsule by mouth daily. [facility] 2.5 mg capsule 2-0 8-17 00:00: 00 Yes [id number] 2.5mg Take 1 capsule by mouth daily. Take 1 capsule by mouth daily. [facility] 2.5 mg capsule 2-0 8-17 00:00: 00 Yes [id number] 2.5mg Take 1 capsule by mouth daily. Take 1 capsule by mouth daily. [facility] 2.5 mg capsule 2-0 8-17 00:00: 00 Yes [id number] 2.5mg Take 1 capsule by mouth daily. Take 1 capsule by mouth daily. [facility] 2.5 mg capsule 2-0 8-17 00:00: 00 Yes [id number] 2.5mg Take 1 capsule by mouth daily. Take 1 capsule by mouth daily. [facility] 2.5 mg capsule 2-0 8-17 00:00: 00 Yes [id number] 2.5mg Take 1 capsule by mouth daily. Take 1 capsule by mouth daily. [facility] 2.5 mg capsule 2-0 8-17 00:00: 00 Yes [id number] 2.5mg Take 1 capsule by mouth daily. Take 1 capsule by mouth daily. [facility] 2.5 mg capsule 2-0 8-17 00:00: 00 Yes [id number] 2.5mg Take 1 capsule by mouth daily. Take 1 capsule by mouth daily. [facility] 2.5 mg capsule 2-0 8-17 00:00: 00 Yes [id number] 2.5mg Take 1 capsule by mouth daily. Take 1 capsule by mouth daily. [facility] 2.5 mg capsule 2-0 8-17 00:00: 00 Yes [id number] 2.5mg Take 1 capsule by mouth daily. Take 1 capsule by mouth daily. [facility] 2.5 mg capsule 2-0 8-17 00:00: 00 Yes [id number] 2.5mg Take 1 capsule by mouth daily. Take 1 capsule by mouth daily. [facility] 2.5 mg capsule 2-0 8-17 00:00: 00 Yes [id number] 2.5mg Take 1 capsule by mouth daily. Take 1 capsule by mouth daily. [facility] 2.5 mg capsule 2-0 8-17 00:00: 00 Yes [id number] 2.5mg Take 1 capsule by mouth daily. Take 1 capsule by mouth daily. [facility] 2.5 mg capsule 2-0 8-17 00:00: 00 Yes [id number] 2.5mg Take 1 capsule by mouth daily. Take 1 capsule by mouth daily. [facility] 2.5 mg capsule 2-0 8-17 00:00: 00 Yes [id number] 2.5mg Take 1 capsule by mouth daily. Take 1 capsule by mouth daily. [facility] 2.5 mg capsule 2-0 8-17 00:00: 00 Yes [id number] 2.5mg Take 1 capsule by mouth daily. Take 1 capsule by mouth daily. [facility] 2.5 mg capsule 2-0 8-17 00:00: 00 Yes [id number] 2.5mg Take 1 capsule by mouth daily. Take 1 capsule by mouth daily. [facility] 2.5 mg capsule 2-0 8-17 00:00: 00 Yes [id number] 2.5mg Take 1 capsule by mouth daily. Take 1 capsule by mouth daily. [facility] 2.5 mg capsule 2-0 8-17 00:00: 00 Yes [id number] 2.5mg Take 1 capsule by mouth daily. Take 1 capsule by mouth daily. [facility] 2.5 mg capsule 2022-0 8-17 00:00: 00 Yes [id number] 2.5mg Take 1 capsule by mouth daily. Take 1 capsule by mouth daily. [facility] 2.5 mg capsule 2-0 8-17 00:00: 00 Yes [id number] 2.5mg Take 1 capsule by mouth daily. Take 1 capsule by mouth daily. [facility] 2.5 mg capsule 2-0 8-17 00:00: 00 Yes [id number] 2.5mg Take 1 capsule by mouth daily. Take 1 capsule by mouth daily. [facility] 2.5 mg capsule 2-0 8-17 00:00: 00 Yes [id number] 2.5mg Take 1 capsule by mouth daily. Take 1 capsule by mouth daily. [facility] 2.5 mg capsule 2-0 8-17 00:00: 00 Yes [id number] 2.5mg Take 1 capsule by mouth daily. Take 1 capsule by mouth daily. [facility] 2.5 mg capsule 2-0 8-17 00:00: 00 Yes [id number] 2.5mg Take 1 capsule by mouth daily. Take 1 capsule by mouth daily. [facility] 2.5 mg capsule 2-0 8-17 00:00: 00 Yes [id number] 2.5mg Take 1 capsule by mouth daily. Take 1 capsule by mouth daily. [facility] 2.5 mg capsule 2-0 8-17 00:00: 00 Yes [id number] 2.5mg Take 1 capsule by mouth daily. Take 1 capsule by mouth daily. [facility] 2.5 mg capsule 2-0 8-17 00:00: 00 Yes [id number] 2.5mg Take 1 capsule by mouth daily. Take 1 capsule by mouth daily. [facility] 2.5 mg capsule 2-0 8-17 00:00: 00 Yes [id number] 2.5mg Take 1 capsule by mouth daily. Take 1 capsule by mouth daily. [facility] 2.5 mg capsule 2-0 8-17 00:00: 00 Yes [id number] 2.5mg Take 1 capsule by mouth daily. Take 1 capsule by mouth daily. [facility] 2.5 mg capsule 2-0 8-17 00:00: 00 Yes [id number] 2.5mg Take 1 capsule by mouth daily. Take 1 capsule by mouth daily. [facility] 2.5 mg capsule 2-0 8-17 00:00: 00 Yes [id number] 2.5mg Take 1 capsule by mouth daily. Take 1 capsule by mouth daily. [facility] 2.5 mg capsule 2-0 8-17 00:00: 00 Yes [id number] 2.5mg Take 1 capsule by mouth daily. Take 1 capsule by mouth daily. [facility] 2.5 mg capsule 2-0 8-17 00:00: 00 Yes [id number] 2.5mg Take 1 capsule by mouth daily. Take 1 capsule by mouth daily. [facility] 2.5 mg capsule 2021-0 8-17 00:00: 00 Yes [id number] 2.5mg Take 1 capsule by mouth daily. Take 1 capsule by mouth daily. [facility] 2.5 mg capsule 2021-0 8-17 00:00: 00 Yes [id number] 2.5mg Take 1 capsule by mouth daily. Take 1 capsule by mouth daily. [facility] 2.5 mg capsule 2-0 8-17 00:00: 00 Yes [id number] 2.5mg Take 1 capsule by mouth daily. Take 1 capsule by mouth daily. [facility] 2.5 mg capsule 2-0 8-17 00:00: 00 Yes [id number] 2.5mg Take 1 capsule by mouth daily. Take 1 capsule by mouth daily. [facility] 2.5 mg capsule 2-0 8-17 00:00: 00 Yes [id number] 2.5mg Take 1 capsule by mouth daily. Take 1 capsule by mouth daily. [facility] 2.5 mg capsule 2-0 8-17 00:00: 00 Yes [id number] 2.5mg Take 1 capsule by mouth daily. Take 1 capsule by mouth daily. [facility] 2.5 mg capsule 2-0 8-17 00:00: 00 Yes [id number] 2.5mg Take 1 capsule by mouth daily. Take 1 capsule by mouth daily. [facility] 2.5 mg capsule 2-0 8-17 00:00: 00 Yes [id number] 2.5mg Take 1 capsule by mouth daily. Take 1 capsule by mouth daily. [facility] 2.5 mg capsule 2-0 8-17 00:00: 00 Yes [id number] 2.5mg Take 1 capsule by mouth daily. Take 1 capsule by mouth daily. [facility] 2.5 mg capsule 2-0 8-17 00:00: 00 Yes [id number] 2.5mg Take 1 capsule by mouth daily. Take 1 capsule by mouth daily. [facility] 2.5 mg capsule 2-0 8-17 00:00: 00 Yes [id number] 2.5mg Take 1 capsule by mouth daily. Take 1 capsule by mouth daily. [facility] 2.5 mg capsule 2021-0 8-17 00:00: 00 Yes [id number] 2.5mg Take 1 capsule by mouth daily. Take 1 capsule by mouth daily. [facility] 2.5 mg capsule 2021-0 8-17 00:00: 00 Yes [id number] 2.5mg Take 1 capsule by mouth daily. Take 1 capsule by mouth daily. [facility] 2.5 mg capsule 2-0 8-17 00:00: 00 Yes [id number] 2.5mg Take 1 capsule by mouth daily. Take 1 capsule by mouth daily. [facility] 2.5 mg capsule 2-0 8-17 00:00: 00 Yes [id number] 2.5mg Take 1 capsule by mouth daily. Take 1 capsule by mouth daily. [facility] 2.5 mg capsule 2-0 8-17 00:00: 00 Yes [id number] 2.5mg Take 1 capsule by mouth daily. Take 1 capsule by mouth daily. [facility] 2.5 mg capsule 2-0 8-17 00:00: 00 Yes [id number] 2.5mg Take 1 capsule by mouth daily. Take 1 capsule by mouth daily. [facility] 2.5 mg capsule 2-0 8-17 00:00: 00 Yes [id number] 2.5mg Take 1 capsule by mouth daily. Take 1 capsule by mouth daily. [facility] 2.5 mg capsule 2-0 8-17 00:00: 00 Yes [id number] 2.5mg Take 1 capsule by mouth daily. Take 1 capsule by mouth daily. [facility] 2.5 mg capsule 2-0 8-17 00:00: 00 Yes [id number] 2.5mg Take 1 capsule by mouth daily. Take 1 capsule by mouth daily. [facility] 2.5 mg capsule 2-0 8-17 00:00: 00 Yes [id number] 2.5mg Take 1 capsule by mouth daily. Take 1 capsule by mouth daily. [facility] 2.5 mg capsule 2-0 8-17 00:00: 00 Yes [id number] 2.5mg Take 1 capsule by mouth daily. Take 1 capsule by mouth daily. [facility] 2.5 mg capsule 2-0 8-17 00:00: 00 Yes [id number] 2.5mg Take 1 capsule by mouth daily. Take 1 capsule by mouth daily. [facility] 2.5 mg capsule 2-0 8-17 00:00: 00 Yes [id number] 2.5mg Take 1 capsule by mouth daily. Take 1 capsule by mouth daily. [facility] 2.5 mg capsule 2-0 8-17 00:00: 00 Yes [id number] 2.5mg Take 1 capsule by mouth daily. Take 1 capsule by mouth daily. [facility] 2.5 mg capsule 2-0 8-17 00:00: 00 Yes [id number] 2.5mg Take 1 capsule by mouth daily. Take 1 capsule by mouth daily. [facility] 2.5 mg capsule 2-0 8-17 00:00: 00 Yes [id number] 2.5mg Take 1 capsule by mouth daily. Take 1 capsule by mouth daily. [facility] 2.5 mg capsule 2-0 8-17 00:00: 00 Yes [id number] 2.5mg Take 1 capsule by mouth daily. Take 1 capsule by mouth daily. [facility] 2.5 mg capsule 2-0 8-17 00:00: 00 Yes [id number] 2.5mg Take 1 capsule by mouth daily. Take 1 capsule by mouth daily. [facility] 2.5 mg capsule 2-0 8-17 00:00: 00 Yes [id number] 2.5mg Take 1 capsule by mouth daily. Take 1 capsule by mouth daily. [facility] 2.5 mg capsule 2-0 8-17 00:00: 00 Yes [id number] 2.5mg Take 1 capsule by mouth daily. Take 1 capsule by mouth daily. [facility] 2.5 mg capsule 2-0 8-17 00:00: 00 Yes [id number] 2.5mg Take 1 capsule by mouth daily. Take 1 capsule by mouth daily. [facility] 2.5 mg capsule 2-0 8-17 00:00: 00 Yes [id number] 2.5mg Take 1 capsule by mouth daily. Take 1 capsule by mouth daily. [facility] 2.5 mg capsule 2-0 8-17 00:00: 00 Yes [id number] 2.5mg Take 1 capsule by mouth daily. Take 1 capsule by mouth daily. [facility] 2.5 mg capsule 2022-0 8-17 00:00: 00 Yes [id number] 2.5mg Take 1 capsule by mouth daily. Take 1 capsule by mouth daily. [facility] 2.5 mg capsule 2-0 8-17 00:00: 00 Yes [id number] 2.5mg Take 1 capsule by mouth daily. Take 1 capsule by mouth daily. [facility] 2.5 mg capsule 2-0 8-17 00:00: 00 Yes [id number] 2.5mg Take 1 capsule by mouth daily. Take 1 capsule by mouth daily. [facility] 2.5 mg capsule 2-0 8-17 00:00: 00 Yes [id number] 2.5mg Take 1 capsule by mouth daily. Take 1 capsule by mouth daily. [facility] 2.5 mg capsule 2-0 8-17 00:00: 00 Yes [id number] 2.5mg Take 1 capsule by mouth daily. Take 1 capsule by mouth daily. [facility] 2.5 mg capsule 2-0 8-17 00:00: 00 Yes [id number] 2.5mg Take 1 capsule by mouth daily. Take 1 capsule by mouth daily. [facility] 2.5 mg capsule 2-0 8-17 00:00: 00 Yes [id number] 2.5mg Take 1 capsule by mouth daily. Take 1 capsule by mouth daily. [facility] 2.5 mg capsule 2-0 8-17 00:00: 00 Yes [id number] 2.5mg Take 1 capsule by mouth daily. Take 1 capsule by mouth daily. [facility] 2.5 mg capsule 2-0 8-17 00:00: 00 Yes [id number] 2.5mg Take 1 capsule by mouth daily. Take 1 capsule by mouth daily. [facility] 2.5 mg capsule 2-0 8-17 00:00: 00 Yes [id number] 2.5mg Take 1 capsule by mouth daily. Take 1 capsule by mouth daily. [facility] 2.5 mg capsule 2-0 8-17 00:00: 00 Yes [id number] 2.5mg Take 1 capsule by mouth daily. Take 1 capsule by mouth daily. [facility] 2.5 mg capsule 2-0 8-17 00:00: 00 Yes [id number] 2.5mg Take 1 capsule by mouth daily. Take 1 capsule by mouth daily. [facility] 2.5 mg capsule 2-0 8-17 00:00: 00 Yes [id number] 2.5mg Take 1 capsule by mouth daily. Take 1 capsule by mouth daily. [facility] 2.5 mg capsule 2-0 8-17 00:00: 00 Yes [id number] 2.5mg Take 1 capsule by mouth daily. Take 1 capsule by mouth daily. [facility] 2.5 mg capsule 2-0 8-17 00:00: 00 Yes [id number] 2.5mg Take 1 capsule by mouth daily. Take 1 capsule by mouth daily. [facility] 2.5 mg capsule 2-0 8-17 00:00: 00 Yes [id number] 2.5mg Take 1 capsule by mouth daily. Take 1 capsule by mouth daily. [facility] 2.5 mg capsule 2-0 8-17 00:00: 00 Yes [id number] 2.5mg Take 1 capsule by mouth daily. Take 1 capsule by mouth daily. [facility] [facility] dron[facility].5 mg capsule 2-0 8-17 00:00: 00 Yes [id number] 2.5mg Take 1 capsule by mouth daily. Take 1 capsule by mouth daily. [facility] dronabinoL 2.5 mg capsule 2-0 8-17 00:00: 00 Yes [id number] 2.5mg Take 1 capsule by mouth daily. Take 1 capsule by mouth daily. [facility] dronabinoL 2.5 mg capsule 2-0 8-17 00:00: 00 Yes [id number] 2.5mg Take 1 capsule by mouth daily. Take 1 capsule by mouth daily. [facility] dronabinoL 2.5 mg capsule 2-0 8-17 00:00: 00 Yes [id number] 2.5mg Take 1 capsule by mouth daily. Take 1 capsule by mouth daily. [facility] dronabinoL 2.5 mg capsule 2021-0 8-17 00:00: 00 Yes [id number] 2.5mg Take 1 capsule by mouth daily. Take 1 capsule by mouth daily. [facility] dronabinoL 2.5 mg capsule 2-0 8-17 00:00: 00 Yes [id number] 2.5mg Take 1 capsule by mouth daily. Take 1 capsule by mouth daily. [facility] dronabinoL 2.5 mg capsule 2-0 8-17 00:00: 00 Yes [id number] 2.5mg Take 1 capsule by mouth daily. Take 1 capsule by mouth daily. [facility] dronabinoL 2.5 mg capsule 2021-0 8-17 00:00: 00 Yes [id number] 2.5mg Take 1 capsule by mouth daily. Take 1 capsule by mouth daily. [facility] dronabinoL 2.5 mg capsule 2-0 8-17 00:00: 00 Yes [id number] 2.5mg Take 1 capsule by mouth daily. Take 1 capsule by mouth daily. [facility] dronabinoL 2.5 mg capsule 2021-0 8-17 00:00: 00 Yes [id number] 2.5mg Take 1 capsule by mouth daily. Take 1 capsule by mouth daily. [facility] dronabinoL 2.5 mg capsule 2021-0 8-17 00:00: 00 Yes [id number] 2.5mg Take 1 capsule by mouth daily. Take 1 capsule by mouth daily. [facility] dronabinoL 2.5 mg capsule 2-0 8-17 00:00: 00 Yes [id number] 2.5mg Take 1 capsule by mouth daily. Take 1 capsule by mouth daily. [facility] dronabinoL 2.5 mg capsule 2-0 8-17 00:00: 00 Yes [id number] 2.5mg Take 1 capsule by mouth daily. Take 1 capsule by mouth daily. [facility] dronabinoL 2.5 mg capsule 2022-0 8-17 00:00: 00 Yes [id number] 2.5mg Take 1 capsule by mouth daily. Take 1 capsule by mouth daily. [facility] dronabinoL 2.5 mg capsule 2-0 8-17 00:00: 00 Yes [id number] 2.5mg Take 1 capsule by mouth daily. Take 1 capsule by mouth daily. [facility] dronabinoL 2.5 mg capsule 2-0 8-17 00:00: 00 Yes [id number] 2.5mg Take 1 capsule by mouth daily. Take 1 capsule by mouth daily. [facility] dronabinoL 2.5 mg capsule 2-0 8-17 00:00: 00 Yes [id number] 2.5mg Take 1 capsule by mouth daily. Take 1 capsule by mouth daily. [facility] dronabinoL 2.5 mg capsule 2-0 8-17 00:00: 00 Yes [id number] 2.5mg Take 1 capsule by mouth daily. Take 1 capsule by mouth daily. [facility] dronabinoL 2.5 mg capsule 2-0 8-17 00:00: 00 Yes [id number] 2.5mg Take 1 capsule by mouth daily. Take 1 capsule by mouth daily. [facility] dronabinoL 2.5 mg capsule 2-0 8-17 00:00: 00 Yes [id number] 2.5mg Take 1 capsule by mouth daily. Take 1 capsule by mouth daily. [facility] dronabinoL 2.5 mg capsule 2-0 8-17 00:00: 00 Yes [id number] 2.5mg Take 1 capsule by mouth daily. Take 1 capsule by mouth daily. [facility] dronabinoL 2.5 mg capsule 2-0 8-17 00:00: 00 Yes [id number] 2.5mg Take 1 capsule by mouth daily. Take 1 capsule by mouth daily. [facility] dronabinoL 2.5 mg capsule 2-0 8-17 00:00: 00 Yes [id number] 2.5mg Take 1 capsule by mouth daily. Take 1 capsule by mouth daily. [facility] dronabinoL 2.5 mg capsule 2-0 8-17 00:00: 00 Yes [id number] 2.5mg Take 1 capsule by mouth daily. Take 1 capsule by mouth daily. [facility] dronabinoL 2.5 mg capsule 2-0 8-17 00:00: 00 Yes [id number] 2.5mg Take 1 capsule by mouth daily. Take 1 capsule by mouth daily. [facility] dronabinoL 2.5 mg capsule 2-0 8-17 00:00: 00 Yes [id number] 2.5mg Take 1 capsule by mouth daily. Take 1 capsule by mouth daily. [facility] dronabinoL 2.5 mg capsule 2-0 8-17 00:00: 00 Yes [id number] 2.5mg Take 1 capsule by mouth daily. Take 1 capsule by mouth daily. [facility] dronabinoL 2.5 mg capsule 2-0 8-17 00:00: 00 Yes [id number] 2.5mg Take 1 capsule by mouth daily. Take 1 capsule by mouth daily. [facility] dronabinoL 2.5 mg capsule 2-0 8-17 00:00: 00 Yes [id number] 2.5mg Take 1 capsule by mouth daily. Take 1 capsule by mouth daily. [facility] dronabinoL 2.5 mg capsule 2-0 8-17 00:00: 00 Yes [id number] 2.5mg Take 1 capsule by mouth daily. Take 1 capsule by mouth daily. [facility] dronabinoL 2.5 mg capsule 2-0 8-17 00:00: 00 Yes [id number] 2.5mg Take 1 capsule by mouth daily. Take 1 capsule by mouth daily. [facility] dronabinoL 2.5 mg capsule 2-0 8-17 00:00: 00 Yes [id number] 2.5mg Take 1 capsule by mouth daily. Take 1 capsule by mouth daily. [facility] dronabinoL 2.5 mg capsule 2-0 8-17 00:00: 00 Yes [id number] 2.5mg Take 1 capsule by mouth daily. Take 1 capsule by mouth daily. [facility] dronabinoL 2.5 mg capsule 2021-0 8-17 00:00: 00 Yes [id number] 2.5mg Take 1 capsule by mouth daily. Take 1 capsule by mouth daily. [facility] dronabinoL 2.5 mg capsule 2021-0 8-17 00:00: 00 Yes [id number] 2.5mg Take 1 capsule by mouth daily. Take 1 capsule by mouth daily. [facility] dronabinoL 2.5 mg capsule 2021-0 8-17 00:00: 00 Yes [id number] 2.5mg Take 1 capsule by mouth daily. Take 1 capsule by mouth daily. [facility] dronabinoL 2.5 mg capsule 2021-0 8-17 00:00: 00 Yes [id number] 2.5mg Take 1 capsule by mouth daily. Take 1 capsule by mouth daily. [facility] dronabinoL 2.5 mg capsule 2021-0 8-17 00:00: 00 Yes [id number] 2.5mg Take 1 capsule by mouth daily. Take 1 capsule by mouth daily. [facility] dronabinoL 2.5 mg capsule 2021-0 8-17 00:00: 00 10-13 00:00 :00 No [id number] 2.5mg Take 1 capsule by mouth daily. Take 1 capsule by mouth daily. [facility] FENOFIBRATE 160 mg tablet 2021-0 02-24 00:00: 00 Yes [id number] TAKE ONE (1) TABLET(S) BY MOUTH ONCE A DAY. [facility] ROSUVASTATI N 40 mg tablet 2021-0 02-24 00:00: 00 Yes [id number] TAKE ONE (1) TABLET(S) BY MOUTH ONCE A DAY AT BEDTIME. [facility] LISINOPRIL 2.5 mg tablet 2021-0 02-24 00:00: 00 Yes [id number] TAKE ONE (1) TABLET(S) BY MOUTH ONCE A DAY. [facility] FENOFIBRATE 160 mg tablet 2021-0 02-24 00:00: 00 Yes [id number] TAKE ONE (1) TABLET(S) BY MOUTH ONCE A DAY. [facility] ROSUVASTATI N 40 mg tablet 2021-0 02-24 00:00: 00 Yes [id number] TAKE ONE (1) TABLET(S) BY MOUTH ONCE A DAY AT BEDTIME. [facility] LISINOPRIL 2.5 mg tablet 2021-0 02-24 00:00: 00 Yes [id number] TAKE ONE (1) TABLET(S) BY MOUTH ONCE A DAY. [facility] FENOFIBRATE 160 mg tablet 2021-0 02-24 00:00: 00 Yes [id number] TAKE ONE (1) TABLET(S) BY MOUTH ONCE A DAY. [facility] ROSUVASTATI N 40 mg tablet 2021-0 02-24 00:00: 00 Yes [id number] TAKE ONE (1) TABLET(S) BY MOUTH ONCE A DAY AT BEDTIME. [facility] LISINOPRIL 2.5 mg tablet 2021-0 02-24 00:00: 00 Yes [id number] TAKE ONE (1) TABLET(S) BY MOUTH ONCE A DAY. [facility] FENOFIBRATE 160 mg tablet 2021-0 02-24 00:00: 00 Yes [id number] TAKE ONE (1) TABLET(S) BY MOUTH ONCE A DAY. [facility] ROSUVASTATI N 40 mg tablet 2021-0 02-24 00:00: 00 Yes [id number] TAKE ONE (1) TABLET(S) BY MOUTH ONCE A DAY AT BEDTIME. [facility] LISINOPRIL 2.5 mg tablet 2021-0 02-24 00:00: 00 Yes [id number] TAKE ONE (1) TABLET(S) BY MOUTH ONCE A DAY. [facility] FENOFIBRATE 160 mg tablet 2021-0 - 00:00: 00 Yes [id number] TAKE ONE (1) TABLET(S) BY MOUTH ONCE A DAY. [facility] ROSUVASTATI N 40 mg tablet 2021-0 - 00:00: 00 Yes [id number] TAKE ONE (1) TABLET(S) BY MOUTH ONCE A DAY AT BEDTIME. [facility] LISINOPRIL 2.5 mg tablet 2021-0 - 00:00: 00 Yes [id number] TAKE ONE (1) TABLET(S) BY MOUTH ONCE A DAY. [facility] FENOFIBRATE 160 mg tablet 2021-0 7-19 00:00: 00 Yes [id number] TAKE ONE (1) TABLET(S) BY MOUTH ONCE A DAY. [facility] ROSUVASTATI N 40 mg tablet 2-0 - 00:00: 00 Yes [id number] TAKE ONE (1) TABLET(S) BY MOUTH ONCE A DAY AT BEDTIME. [facility] LISINOPRIL 2.5 mg tablet 2021-0 - 00:00: 00 Yes [id number] TAKE ONE (1) TABLET(S) BY MOUTH ONCE A DAY. [facility] FENOFIBRATE 160 mg tablet 2021-0 - 00:00: 00 Yes [id number] TAKE ONE (1) TABLET(S) BY MOUTH ONCE A DAY. [facility] ROSUVASTATI N 40 mg tablet 2021-0 - 00:00: 00 Yes [id number] TAKE ONE (1) TABLET(S) BY MOUTH ONCE A DAY AT BEDTIME. [facility] LISINOPRIL 2.5 mg tablet 2021-0 - 00:00: 00 Yes [id number] TAKE ONE (1) TABLET(S) BY MOUTH ONCE A DAY. [facility] FENOFIBRATE 160 mg tablet 2021-0 -19 00:00: 00 Yes [id number] TAKE ONE (1) TABLET(S) BY MOUTH ONCE A DAY. [facility] ROSUVASTATI N 40 mg tablet 2-0 - 00:00: 00 Yes [id number] TAKE ONE (1) TABLET(S) BY MOUTH ONCE A DAY AT BEDTIME. [facility] LISINOPRIL 2.5 mg tablet 2-0 7-19 00:00: 00 Yes [id number] TAKE ONE (1) TABLET(S) BY MOUTH ONCE A DAY. [facility] FENOFIBRATE 160 mg tablet 2-0 7-19 00:00: 00 Yes [id number] TAKE ONE (1) TABLET(S) BY MOUTH ONCE A DAY. [facility] ROSUVASTATI N 40 mg tablet 02-24 00:00: 00 Yes [id number] TAKE ONE (1) TABLET(S) BY MOUTH ONCE A DAY AT BEDTIME. [facility] LISINOPRIL 2.5 mg tablet 02-24 00:00: 00 Yes [id number] TAKE ONE (1) TABLET(S) BY MOUTH ONCE A DAY. [facility] FENOFIBRATE 160 mg tablet 02-24 00:00: 00 Yes [id number] TAKE ONE (1) TABLET(S) BY MOUTH ONCE A DAY. [facility] ROSUVASTATI N 40 mg tablet 02-24 00:00: 00 Yes [id number] TAKE ONE (1) TABLET(S) BY MOUTH ONCE A DAY AT BEDTIME. [facility] LISINOPRIL 2.5 mg tablet 02-24 00:00: 00 Yes [id number] TAKE ONE (1) TABLET(S) BY MOUTH ONCE A DAY. [facility] LISINOPRIL 2.5 mg tablet 02-24 00:00: 00 Yes [id number] TAKE ONE (1) TABLET(S) BY MOUTH ONCE A DAY. [facility] FENOFIBRATE 160 mg tablet 02-24 00:00: 00 05-12 00:00 :00 No [id number] TAKE ONE (1) TABLET(S) BY MOUTH ONCE A DAY. [facility] ROSUVASTATI N 40 mg tablet 02-24 00:00: 00 05-12 00:00 :00 No [id number] TAKE ONE (1) TABLET(S) BY MOUTH ONCE A DAY AT BEDTIME. [facility] LISINOPRIL 2.5 mg tablet 02-24 00:00: 00 05-12 00:00 :00 No [id number] TAKE ONE (1) TABLET(S) BY MOUTH ONCE A DAY. [facility] capecitabin e 500 mg tablet 02-12 00:00: 00 Yes [id number] 1500mg Take 3 tablets by mouth every morning and evening for 14 days. Then 7 days off . Take within 30 minutes of finishing a meal. [facility] capecitabin e 500 mg tablet 02-12 00:00: 00 Yes [id number] 1500mg Take 3 tablets by mouth every morning and evening for 14 days. Then 7 days off . Take within 30 minutes of finishing a meal. [facility] capecitabin e 500 mg tablet 02-12 00:00: 00 Yes [id number] 1500mg Take 3 tablets by mouth every morning and evening for 14 days. Then 7 days off . Take within 30 minutes of finishing a meal. [facility] capecitabin e 500 mg tablet 02-12 00:00: 00 Yes [id number] 1500mg Take 3 tablets by mouth every morning and evening for 14 days. Then 7 days off . Take within 30 minutes of finishing a meal. [facility] capecitabin e 500 mg tablet 02-12 00:00: 00 Yes [id number] 1500mg Take 3 tablets by mouth every morning and evening for 14 days. Then 7 days off . Take within 30 minutes of finishing a meal. [facility] capecitabin e 500 mg tablet 02-12 00:00: 00 Yes [id number] 1500mg Take 3 tablets by mouth every morning and evening for 14 days. Then 7 days off . Take within 30 minutes of finishing a meal. [facility] capecitabin e 500 mg tablet 02-12 00:00: 00 Yes [id number] 1500mg Take 3 tablets by mouth every morning and evening for 14 days. Then 7 days off . Take within 30 minutes of finishing a meal. [facility] capecitabin e 500 mg tablet 02-12 00:00: 00 Yes [id number] 1500mg Take 3 tablets by mouth every morning and evening for 14 days. Then 7 days off . Take within 30 minutes of finishing a meal. [facility] FINASTERIDE 5 mg tablet 02-10 00:00: 00 Yes [id number] TAKE ONE (1) TABLET(S) BY MOUTH ONCE A DAY. [facility] FINASTERIDE 5 mg tablet 2021-0 7-05 00:00: 00 Yes [id number] TAKE ONE (1) TABLET(S) BY MOUTH ONCE A DAY. [facility] FINASTERIDE 5 mg tablet 2021-0 7-05 00:00: 00 Yes [id number] TAKE ONE (1) TABLET(S) BY MOUTH ONCE A DAY. [facility] FINASTERIDE 5 mg tablet 2021-0 7-05 00:00: 00 Yes [id number] TAKE ONE (1) TABLET(S) BY MOUTH ONCE A DAY. [facility] FINASTERIDE 5 mg tablet 2021-0 7-05 00:00: 00 Yes [id number] TAKE ONE (1) TABLET(S) BY MOUTH ONCE A DAY. [facility] FINASTERIDE 5 mg tablet 2021-0 7-05 00:00: 00 Yes [id number] TAKE ONE (1) TABLET(S) BY MOUTH ONCE A DAY. [facility] FINASTERIDE 5 mg tablet 2021-0 7-05 00:00: 00 Yes [id number] TAKE ONE (1) TABLET(S) BY MOUTH ONCE A DAY. [facility] FINASTERIDE 5 mg tablet 2021-0 7-05 00:00: 00 Yes [id number] TAKE ONE (1) TABLET(S) BY MOUTH ONCE A DAY. [facility] FINASTERIDE 5 mg tablet 2-0 7-05 00:00: 00 Yes [id number] TAKE ONE (1) TABLET(S) BY MOUTH ONCE A DAY. [facility] FINASTERIDE 5 mg tablet 2021-0 7-05 00:00: 00 10- 00:00 :00 No [id number] TAKE ONE (1) TABLET(S) BY MOUTH ONCE A DAY. [facility] TAMSULOSIN 0.4 mg 24 hr capsule 2021-0 01-13 00:00: 00 Yes [id number] TAKE TWO (2) CAPSULE(S) BY MOUTH ONCE A DAY AT BEDTIME. [facility] TAMSULOSIN 0.4 mg 24 hr capsule 2021-0 6-07 00:00: 00 Yes [id number] TAKE TWO (2) CAPSULE(S) BY MOUTH ONCE A DAY AT BEDTIME. [facility] TAMSULOSIN 0.4 mg 24 hr capsule 2021-0 01-13 00:00: 00 Yes [id number] TAKE TWO (2) CAPSULE(S) BY MOUTH ONCE A DAY AT BEDTIME. [facility] TAMSULOSIN 0.4 mg 24 hr capsule 2021-0 01-13 00:00: 00 Yes [id number] TAKE TWO (2) CAPSULE(S) BY MOUTH ONCE A DAY AT BEDTIME. [facility] TAMSULOSIN 0.4 mg 24 hr capsule 2021-0 01-13 00:00: 00 Yes [id number] TAKE TWO (2) CAPSULE(S) BY MOUTH ONCE A DAY AT BEDTIME. [facility] TAMSULOSIN 0.4 mg 24 hr capsule 2021-0 01-13 00:00: 00 Yes [id number] TAKE TWO (2) CAPSULE(S) BY MOUTH ONCE A DAY AT BEDTIME. [facility] TAMSULOSIN 0.4 mg 24 hr capsule 2-0 01-13 00:00: 00 Yes [id number] TAKE TWO (2) CAPSULE(S) BY MOUTH ONCE A DAY AT BEDTIME. [facility] TAMSULOSIN 0.4 mg 24 hr capsule 2021-0 01-13 00:00: 00 05-06 00:00 :00 No [id number] TAKE TWO (2) CAPSULE(S) BY MOUTH ONCE A DAY AT BEDTIME. [facility] Diclofenac Sodium (VOLTAREN) 1 % gel 2021-0 12-25 00:00: 00 Yes [id number] Apply to area(s) 4 (four) times daily. [facility] Diclofenac Sodium (VOLTAREN) 1 % gel 2021-0 12-25 00:00: 00 Yes [id number] Apply to area(s) 4 (four) times daily. [facility] Diclofenac Sodium (VOLTAREN) 1 % gel 2021-0 12-25 00:00: 00 Yes [id number] Apply to area(s) 4 (four) times daily. [facility] Diclofenac Sodium (VOLTAREN) 1 % gel 2022-0 5-19 00:00: 00 Yes [id number] Apply to area(s) 4 (four) times daily. [facility] Diclofenac Sodium (VOLTAREN) 1 % gel 2022-0 5-19 00:00: 00 Yes [id number] Apply to area(s) 4 (four) times daily. [facility] Diclofenac Sodium (VOLTAREN) 1 % gel 2022-0 5-19 00:00: 00 Yes [id number] Apply to area(s) 4 (four) times daily. [facility] Diclofenac Sodium (VOLTAREN) 1 % gel 2022-0 5-19 00:00: 00 Yes [id number] Apply to area(s) 4 (four) times daily. [facility] Diclofenac Sodium (VOLTAREN) 1 % gel 2022-0 5-19 00:00: 00 Yes [id number] Apply to area(s) 4 (four) times daily. [facility] Diclofenac Sodium (VOLTAREN) 1 % gel 2-0 -19 00:00: 00 Yes [id number] Apply to area(s) 4 (four) times daily. [facility] Diclofenac Sodium (VOLTAREN) 1 % gel 2022-0 5-19 00:00: 00 Yes [id number] Apply to area(s) 4 (four) times daily. [facility] Diclofenac Sodium (VOLTAREN) 1 % gel 2022-0 5-19 00:00: 00 Yes [id number] Apply to area(s) 4 (four) times daily. [facility] Diclofenac Sodium (VOLTAREN) 1 % gel 2022-0 5-19 00:00: 00 Yes [id number] Apply to area(s) 4 (four) times daily. [facility] Diclofenac Sodium (VOLTAREN) 1 % gel 2022-0 5-19 00:00: 00 Yes [id number] Apply to area(s) 4 (four) times daily. [facility] Diclofenac Sodium (VOLTAREN) 1 % gel 2022-0 5-19 00:00: 00 Yes [id number] Apply to area(s) 4 (four) times daily. [facility] Diclofenac Sodium (VOLTAREN) 1 % gel 2022-0 5-19 00:00: 00 Yes [id number] Apply to area(s) 4 (four) times daily. [facility] Diclofenac Sodium (VOLTAREN) 1 % gel 2022-0 5-19 00:00: 00 Yes [id number] Apply to area(s) 4 (four) times daily. [facility] Diclofenac Sodium (VOLTAREN) 1 % gel 2022-0 5-19 00:00: 00 Yes [id number] Apply to area(s) 4 (four) times daily. [facility] Diclofenac Sodium (VOLTAREN) 1 % gel 2022-0 5-19 00:00: 00 Yes [id number] Apply to area(s) 4 (four) times daily. [facility] Diclofenac Sodium (VOLTAREN) 1 % gel 2022-0 5-19 00:00: 00 Yes [id number] Apply to area(s) 4 (four) times daily. [facility] Diclofenac Sodium (VOLTAREN) 1 % gel 2-0 5-19 00:00: 00 Yes [id number] Apply to area(s) 4 (four) times daily. [facility] Diclofenac Sodium (VOLTAREN) 1 % gel 2022-0 5-19 00:00: 00 Yes [id number] Apply to area(s) 4 (four) times daily. [facility] Diclofenac Sodium (VOLTAREN) 1 % gel 2022-0 5-19 00:00: 00 Yes [id number] Apply to area(s) 4 (four) times daily. [facility] Diclofenac Sodium (VOLTAREN) 1 % gel 2022-0 5-19 00:00: 00 Yes [id number] Apply to area(s) 4 (four) times daily. [facility] Diclofenac Sodium (VOLTAREN) 1 % gel 2022-0 5-19 00:00: 00 Yes [id number] Apply to area(s) 4 (four) times daily. [facility] Diclofenac Sodium (VOLTAREN) 1 % gel 2022-0 5-19 00:00: 00 Yes [id number] Apply to area(s) 4 (four) times daily. [facility] Diclofenac Sodium (VOLTAREN) 1 % gel 2022-0 5-19 00:00: 00 Yes [id number] Apply to area(s) 4 (four) times daily. [facility] Diclofenac Sodium (VOLTAREN) 1 % gel 2022-0 5-19 00:00: 00 Yes [id number] Apply to area(s) 4 (four) times daily. [facility] Diclofenac Sodium (VOLTAREN) 1 % gel 2022-0 5-19 00:00: 00 Yes [id number] Apply to area(s) 4 (four) times daily. [facility] Diclofenac Sodium (VOLTAREN) 1 % gel 2022-0 5-19 00:00: 00 Yes [id number] Apply to area(s) 4 (four) times daily. [facility] Diclofenac Sodium (VOLTAREN) 1 % gel 2022-0 5-19 00:00: 00 Yes [id number] Apply to area(s) 4 (four) times daily. [facility] Diclofenac Sodium (VOLTAREN) 1 % gel 2022-0 5-19 00:00: 00 Yes [id number] Apply to area(s) 4 (four) times daily. [facility] Diclofenac Sodium (VOLTAREN) 1 % gel 2022-0 5-19 00:00: 00 Yes [id number] Apply to area(s) 4 (four) times daily. [facility] Diclofenac Sodium (VOLTAREN) 1 % gel 2022-0 5-19 00:00: 00 Yes [id number] Apply to area(s) 4 (four) times daily. [facility] Diclofenac Sodium (VOLTAREN) 1 % gel 2022-0 5-19 00:00: 00 Yes [id number] Apply to area(s) 4 (four) times daily. [facility] Diclofenac Sodium (VOLTAREN) 1 % gel 2022-0 5-19 00:00: 00 Yes [id number] Apply to area(s) 4 (four) times daily. [facility] Diclofenac Sodium (VOLTAREN) 1 % gel 2022-0 5-19 00:00: 00 Yes [id number] Apply to area(s) 4 (four) times daily. [facility] Diclofenac Sodium (VOLTAREN) 1 % gel 2022-0 5-19 00:00: 00 Yes [id number] Apply to area(s) 4 (four) times daily. [facility] Diclofenac Sodium (VOLTAREN) 1 % gel 2022-0 5-19 00:00: 00 Yes [id number] Apply to area(s) 4 (four) times daily. [facility] Diclofenac Sodium (VOLTAREN) 1 % gel 2022-0 5-19 00:00: 00 Yes [id number] Apply to area(s) 4 (four) times daily. [facility] Diclofenac Sodium (VOLTAREN) 1 % gel 2022-0 5-19 00:00: 00 Yes [id number] Apply to area(s) 4 (four) times daily. [facility] Diclofenac Sodium (VOLTAREN) 1 % gel 2022-0 5-19 00:00: 00 Yes [id number] Apply to area(s) 4 (four) times daily. [facility] Diclofenac Sodium (VOLTAREN) 1 % gel 2022-0 5-19 00:00: 00 Yes [id number] Apply to area(s) 4 (four) times daily. [facility] Diclofenac Sodium (VOLTAREN) 1 % gel 2022-0 5-19 00:00: 00 Yes [id number] Apply to area(s) 4 (four) times daily. [facility] Diclofenac Sodium (VOLTAREN) 1 % gel 2022-0 5-19 00:00: 00 Yes [id number] Apply to area(s) 4 (four) times daily. [facility] Diclofenac Sodium (VOLTAREN) 1 % gel 2022-0 5-19 00:00: 00 Yes [id number] Apply to area(s) 4 (four) times daily. [facility] Diclofenac Sodium (VOLTAREN) 1 % gel 2022-0 5-19 00:00: 00 Yes [id number] Apply to area(s) 4 (four) times daily. [facility] Diclofenac Sodium (VOLTAREN) 1 % gel 2022-0 5-19 00:00: 00 Yes [id number] Apply to area(s) 4 (four) times daily. [facility] Diclofenac Sodium (VOLTAREN) 1 % gel 2022-0 5-19 00:00: 00 Yes [id number] Apply to area(s) 4 (four) times daily. [facility] Diclofenac Sodium (VOLTAREN) 1 % gel 2022-0 5-19 00:00: 00 Yes [id number] Apply to area(s) 4 (four) times daily. [facility] Diclofenac Sodium (VOLTAREN) 1 % gel 2022-0 5-19 00:00: 00 Yes [id number] Apply to area(s) 4 (four) times daily. [facility] Diclofenac Sodium (VOLTAREN) 1 % gel 2022-0 5-19 00:00: 00 Yes [id number] Apply to area(s) 4 (four) times daily. [facility] [facility] Diclofenac Sodium (VOLTAREN) 1 % gel 2022-0 5-19 00:00: 00 Yes [id number] Apply to area(s) 4 (four) times daily. [facility] Diclofenac Sodium (VOLTAREN) 1 % gel 2022-0 5-19 00:00: 00 Yes [id number] Apply to area(s) 4 (four) times daily. [facility] Diclofenac Sodium (VOLTAREN) 1 % gel 2022-0 5-19 00:00: 00 Yes [id number] Apply to area(s) 4 (four) times daily. [facility] Diclofenac Sodium (VOLTAREN) 1 % gel 2022-0 5-19 00:00: 00 Yes [id number] Apply to area(s) 4 (four) times daily. [facility] Diclofenac Sodium (VOLTAREN) 1 % gel 2022-0 5-19 00:00: 00 Yes [id number] Apply to area(s) 4 (four) times daily. [facility] Diclofenac Sodium (VOLTAREN) 1 % gel 2022-0 5-19 00:00: 00 Yes [id number] Apply to area(s) 4 (four) times daily. [facility] Diclofenac Sodium (VOLTAREN) 1 % gel 2022-0 5-19 00:00: 00 Yes [id number] Apply to area(s) 4 (four) times daily. [facility] Diclofenac Sodium (VOLTAREN) 1 % gel 2022-0 5-19 00:00: 00 Yes [id number] Apply to area(s) 4 (four) times daily. [facility] Diclofenac Sodium (VOLTAREN) 1 % gel 2022-0 5-19 00:00: 00 Yes [id number] Apply to area(s) 4 (four) times daily. [facility] Diclofenac Sodium (VOLTAREN) 1 % gel 2022-0 5-19 00:00: 00 Yes [id number] Apply to area(s) 4 (four) times daily. [facility] Diclofenac Sodium (VOLTAREN) 1 % gel 2022-0 -19 00:00: 00 Yes [id number] Apply to area(s) 4 (four) times daily. [facility] Diclofenac Sodium (VOLTAREN) 1 % gel 2022-0 5-19 00:00: 00 Yes [id number] Apply to area(s) 4 (four) times daily. [facility] Diclofenac Sodium (VOLTAREN) 1 % gel 2022-0 5-19 00:00: 00 Yes [id number] Apply to area(s) 4 (four) times daily. [facility] Diclofenac Sodium (VOLTAREN) 1 % gel 2022-0 5-19 00:00: 00 Yes [id number] Apply to area(s) 4 (four) times daily. [facility] Diclofenac Sodium (VOLTAREN) 1 % gel 2022-0 5-19 00:00: 00 Yes [id number] Apply to area(s) 4 (four) times daily. [facility] Diclofenac Sodium (VOLTAREN) 1 % gel 2022-0 5-19 00:00: 00 Yes [id number] Apply to area(s) 4 (four) times daily. [facility] Diclofenac Sodium (VOLTAREN) 1 % gel 2022-0 -19 00:00: 00 Yes [id number] Apply to area(s) 4 (four) times daily. [facility] Diclofenac Sodium (VOLTAREN) 1 % gel 2022-0 5-19 00:00: 00 Yes [id number] Apply to area(s) 4 (four) times daily. [facility] Diclofenac Sodium (VOLTAREN) 1 % gel 2022-0 -19 00:00: 00 Yes [id number] Apply to area(s) 4 (four) times daily. [facility] Diclofenac Sodium (VOLTAREN) 1 % gel 2022-0 -19 00:00: 00 Yes [id number] Apply to area(s) 4 (four) times daily. [facility] Diclofenac Sodium (VOLTAREN) 1 % gel 2022-0 -19 00:00: 00 Yes [id number] Apply to area(s) 4 (four) times daily. [facility] Diclofenac Sodium (VOLTAREN) 1 % gel 2-0 -19 00:00: 00 Yes [id number] Apply to area(s) 4 (four) times daily. [facility] Diclofenac Sodium (VOLTAREN) 1 % gel 2022-0 -19 00:00: 00 Yes [id number] Apply to area(s) 4 (four) times daily. [facility] Diclofenac Sodium (VOLTAREN) 1 % gel 2022-0 -19 00:00: 00 Yes [id number] Apply to area(s) 4 (four) times daily. [facility] Diclofenac Sodium (VOLTAREN) 1 % gel 2022-0 5-19 00:00: 00 Yes [id number] Apply to area(s) 4 (four) times daily. [facility] Diclofenac Sodium (VOLTAREN) 1 % gel 2022-0 5-19 00:00: 00 Yes [id number] Apply to area(s) 4 (four) times daily. [facility] Diclofenac Sodium (VOLTAREN) 1 % gel 2022-0 5-19 00:00: 00 Yes [id number] Apply to area(s) 4 (four) times daily. [facility] Diclofenac Sodium (VOLTAREN) 1 % gel 2022-0 5-19 00:00: 00 Yes [id number] Apply to area(s) 4 (four) times daily. [facility] Diclofenac Sodium (VOLTAREN) 1 % gel 2022-0 5-19 00:00: 00 Yes [id number] Apply to area(s) 4 (four) times daily. [facility] Diclofenac Sodium (VOLTAREN) 1 % gel 2022-0 5-19 00:00: 00 Yes [id number] Apply to area(s) 4 (four) times daily. [facility] Diclofenac Sodium (VOLTAREN) 1 % gel 2022-0 5-19 00:00: 00 Yes [id number] Apply to area(s) 4 (four) times daily. [facility] Diclofenac Sodium (VOLTAREN) 1 % gel 2022-0 5-19 00:00: 00 Yes [id number] Apply to area(s) 4 (four) times daily. [facility] Diclofenac Sodium (VOLTAREN) 1 % gel 2022-0 5-19 00:00: 00 Yes [id number] Apply to area(s) 4 (four) times daily. [facility] Diclofenac Sodium (VOLTAREN) 1 % gel 2022-0 5-19 00:00: 00 Yes [id number] Apply to area(s) 4 (four) times daily. [facility] Diclofenac Sodium (VOLTAREN) 1 % gel 2022-0 5-19 00:00: 00 Yes [id number] Apply to area(s) 4 (four) times daily. [facility] Diclofenac Sodium (VOLTAREN) 1 % gel 2022-0 5-19 00:00: 00 Yes [id number] Apply to area(s) 4 (four) times daily. [facility] Diclofenac Sodium (VOLTAREN) 1 % gel 2022-0 5-19 00:00: 00 Yes [id number] Apply to area(s) 4 (four) times daily. [facility] Diclofenac Sodium (VOLTAREN) 1 % gel 2022-0 5-19 00:00: 00 Yes [id number] Apply to area(s) 4 (four) times daily. [facility] Diclofenac Sodium (VOLTAREN) 1 % gel 2022-0 5-19 00:00: 00 Yes [id number] Apply to area(s) 4 (four) times daily. [facility] Diclofenac Sodium (VOLTAREN) 1 % gel 2022-0 5-19 00:00: 00 Yes [id number] Apply to area(s) 4 (four) times daily. [facility] Diclofenac Sodium (VOLTAREN) 1 % gel 2022-0 5-19 00:00: 00 Yes [id number] Apply to area(s) 4 (four) times daily. [facility] Diclofenac Sodium (VOLTAREN) 1 % gel 2022-0 5-19 00:00: 00 Yes [id number] Apply to area(s) 4 (four) times daily. [facility] Diclofenac Sodium (VOLTAREN) 1 % gel 2022-0 5-19 00:00: 00 Yes [id number] Apply to area(s) 4 (four) times daily. [facility] Diclofenac Sodium (VOLTAREN) 1 % gel 2022-0 5-19 00:00: 00 Yes [id number] Apply to area(s) 4 (four) times daily. [facility] Diclofenac Sodium (VOLTAREN) 1 % gel 2022-0 5-19 00:00: 00 Yes [id number] Apply to area(s) 4 (four) times daily. [facility] Diclofenac Sodium (VOLTAREN) 1 % gel 2022-0 5-19 00:00: 00 Yes [id number] Apply to area(s) 4 (four) times daily. [facility] Diclofenac Sodium (VOLTAREN) 1 % gel 2022-0 5-19 00:00: 00 Yes [id number] Apply to area(s) 4 (four) times daily. [facility] Diclofenac Sodium (VOLTAREN) 1 % gel 2022-0 5-19 00:00: 00 Yes [id number] Apply to area(s) 4 (four) times daily. [facility] Diclofenac Sodium (VOLTAREN) 1 % gel 2022-0 5-19 00:00: 00 Yes [id number] Apply to area(s) 4 (four) times daily. [facility] Diclofenac Sodium (VOLTAREN) 1 % gel 2022-0 5-19 00:00: 00 Yes [id number] Apply to area(s) 4 (four) times daily. [facility] Diclofenac Sodium (VOLTAREN) 1 % gel 2022-0 5-19 00:00: 00 Yes [id number] Apply to area(s) 4 (four) times daily. [facility] Diclofenac Sodium (VOLTAREN) 1 % gel 2022-0 5-19 00:00: 00 Yes [id number] Apply to area(s) 4 (four) times daily. [facility] Diclofenac Sodium (VOLTAREN) 1 % gel 2022-0 5-19 00:00: 00 Yes [id number] Apply to area(s) 4 (four) times daily. [facility] Diclofenac Sodium (VOLTAREN) 1 % gel 2022-0 5-19 00:00: 00 Yes [id number] Apply to area(s) 4 (four) times daily. [facility] Diclofenac Sodium (VOLTAREN) 1 % gel 2022-0 5-19 00:00: 00 Yes [id number] Apply to area(s) 4 (four) times daily. [facility] Diclofenac Sodium (VOLTAREN) 1 % gel 2022-0 5-19 00:00: 00 Yes [id number] Apply to area(s) 4 (four) times daily. [facility] Diclofenac Sodium (VOLTAREN) 1 % gel 2022-0 5-19 00:00: 00 Yes [id number] Apply to area(s) 4 (four) times daily. [facility] Diclofenac Sodium (VOLTAREN) 1 % gel 2022-0 5-19 00:00: 00 Yes [id number] Apply to area(s) 4 (four) times daily. [facility] Diclofenac Sodium (VOLTAREN) 1 % gel 2021-0 12-25 00:00: 00 Yes [id number] Apply to area(s) 4 (four) times daily. [facility] Diclofenac Sodium (VOLTAREN) 1 % gel 2021-0 12-25 00:00: 00 Yes [id number] Apply to area(s) 4 (four) times daily. [facility] Diclofenac Sodium (VOLTAREN) 1 % gel 2021-0 12-25 00:00: 00 11-20 00:00 :00 No [id number] Apply to area(s) 4 (four) times daily. [facility] Diclofenac Sodium (VOLTAREN) 1 % gel 0 12-25 00:00: 00 11-20 00:00 :00 No [id number] Apply to area(s) 4 (four) times daily. [facility] Diclofen[facility] Sodium (VOLTAREN) 1 % gel 2021-0 12-25 00:00: 00 11-20 00:00 :00 No [id number] Apply to area(s) 4 (four) times daily. [facility] mg capsule 2021-0 3-05 00:00: 00 Yes [id number] 100mg Take 1 capsule by mouth 3 (three) times daily as needed for Cough. [facility] albuterol 90 mcg/actuati on inhaler 2021-0 3-05 00:00: 00 Yes [id number] 2{puff} Inhale 2 Puffs every 4 (four) hours as needed for Wheezing or Shortness of Breath. [facility] 100 mg capsule 2-0 3-05 00:00: 00 Yes [id number] 100mg Take 1 capsule by mouth 3 (three) times daily as needed for Cough. [facility] albuterol 90 mcg/actuati on inhaler 2021-0 3-05 00:00: 00 Yes [id number] 2{puff} Inhale 2 Puffs every 4 (four) hours as needed for Wheezing or Shortness of Breath. [facility] benzonatate 100 mg capsule 2-0 3-05 00:00: 00 Yes [id number] 100mg Take 1 capsule by mouth 3 (three) times daily as needed for Cough. [facility] albuterol 90 mcg/actuati on inhaler 2021-0 3-05 00:00: 00 Yes [id number] 2{puff} Inhale 2 Puffs every 4 (four) hours as needed for Wheezing or Shortness of Breath. [facility] benzonatate 100 mg capsule 2021-0 3-05 00:00: 00 Yes [id number] 100mg Take 1 capsule by mouth 3 (three) times daily as needed for Cough. [facility] albuterol 90 mcg/actuati on inhaler 0 3-05 00:00: 00 Yes [id number] 2{puff} Inhale 2 Puffs every 4 (four) hours as needed for Wheezing or Shortness of Breath. [facility] benzonatate 100 mg capsule 2021-0 3-05 00:00: 00 Yes [id number] 100mg Take 1 capsule by mouth 3 (three) times daily as needed for Cough. [facility] albuterol 90 mcg/actuati on inhaler 0 3-05 00:00: 00 Yes [id number] 2{puff} Inhale 2 Puffs every 4 (four) hours as needed for Wheezing or Shortness of Breath. [facility] benzonatate 100 mg capsule 2021-0 3-05 00:00: 00 Yes [id number] 100mg Take 1 capsule by mouth 3 (three) times daily as needed for Cough. [facility] albuterol 90 mcg/actuati on inhaler 2021-0 3-05 00:00: 00 Yes [id number] 2{puff} Inhale 2 Puffs every 4 (four) hours as needed for Wheezing or Shortness of Breath. [facility] benzonatate 100 mg capsule 2021-0 3-05 00:00: 00 Yes [id number] 100mg Take 1 capsule by mouth 3 (three) times daily as needed for Cough. [facility] albuterol 90 mcg/actuati on inhaler 2-0 3-05 00:00: 00 Yes [id number] 2{puff} Inhale 2 Puffs every 4 (four) hours as needed for Wheezing or Shortness of Breath. [facility] 100 mg capsule 2021-0 3-05 00:00: 00 Yes [id number] 100mg Take 1 capsule by mouth 3 (three) times daily as needed for Cough. [facility]/actuati on inhaler 0 3-05 00:00: 00 Yes [id number] 2{puff} Inhale 2 Puffs every 4 (four) hours as needed for Wheezing or Shortness of Breath. [facility] ben[facility] 100 mg capsule 2021-0 3-05 00:00: 00 Yes [id number] 100mg Take 1 capsule by mouth 3 (three) times daily as needed for Cough. [facility] albuterol 90 mcg/actuati on inhaler 0 3-05 00:00: 00 Yes [id number] 2{puff} Inhale 2 Puffs every 4 (four) hours as needed for Wheezing or Shortness of Breath. [facility] benzonatate 100 mg capsule 2021-0 3-05 00:00: 00 Yes [id number] 100mg Take 1 capsule by mouth 3 (three) times daily as needed for Cough. [facility] albuterol 90 mcg/actuati on inhaler 3-05 00:00: 00 Yes [id number] 2{puff} Inhale 2 Puffs every 4 (four) hours as needed for Wheezing or Shortness of Breath. [facility] benzonatate 100 mg capsule 2021-0 3-05 00:00: 00 Yes [id number] 100mg Take 1 capsule by mouth 3 (three) times daily as needed for Cough. [facility] albuterol 90 mcg/actuati on inhaler 2021-0 3-05 00:00: 00 Yes [id number] 2{puff} Inhale 2 Puffs every 4 (four) hours as needed for Wheezing or Shortness of Breath. [facility] benzon[facility]ate 100 mg capsule 2021-0 3-05 00:00: 00 Yes [id number] 100mg Take 1 capsule by mouth 3 (three) times daily as needed for Cough. [facility] albuterol 90 mcg/actuati on inhaler 2022-0 3-05 00:00: 00 Yes [id number] 2{puff} Inhale 2 Puffs every 4 (four) hours as needed for Wheezing or Shortness of Breath. [facility] benzonatate 100 mg capsule 2021-0 3-05 00:00: 00 Yes [id number] 100mg Take 1 capsule by mouth 3 (three) times daily as needed for Cough. [facility] albuterol 90 mcg/actuati on inhaler 0 3-05 00:00: 00 Yes [id number] 2{puff} Inhale 2 Puffs every 4 (four) hours as needed for Wheezing or Shortness of Breath. [facility] benzon[facility] 100 mg capsule 2021-0 305 00:00: 00 Yes [id number] 100mg Take 1 capsule by mouth 3 (three) times daily as needed for Cough. [facility] albuterol 90 mcg/actuati on inhaler 0 3- 00:00: 00 Yes [id number] 2{puff} Inhale 2 Puffs every 4 (four) hours as needed for Wheezing or Shortness of Breath. [facility] benzonatate 100 mg capsule 2021-0 305 00:00: 00 Yes [id number] 100mg Take 1 capsule by mouth 3 (three) times daily as needed for Cough. [facility] albuterol 90 mcg/actuati on inhaler 0 3-05 00:00: 00 Yes [id number] 2{puff} Inhale 2 Puffs every 4 (four) hours as needed for Wheezing or Shortness of Breath. [facility] benzonatate 100 mg capsule 2021-0 3-05 00:00: 00 Yes [id number] 100mg Take 1 capsule by mouth 3 (three) times daily as needed for Cough. [facility] albuterol 90 mcg/actuati on inhaler 2021-0 3-05 00:00: 00 Yes [id number] 2{puff} Inhale 2 Puffs every 4 (four) hours as needed for Wheezing or Shortness of Breath. [facility] benzonatate 100 mg capsule 2021-0 3-05 00:00: 00 Yes [id number] 100mg Take 1 capsule by mouth 3 (three) times daily as needed for Cough. [facility] albuterol 90 mcg/actuati on inhaler 0 3-05 00:00: 00 Yes [id number] 2{puff} Inhale 2 Puffs every 4 (four) hours as needed for Wheezing or Shortness of Breath. [facility] benzonatate 100 mg capsule 2021-0 3-05 00:00: 00 Yes [id number] 100mg Take 1 capsule by mouth 3 (three) times daily as needed for Cough. [facility] albuterol 90 mcg/actuati on inhaler 0 3-05 00:00: 00 Yes [id number] 2{puff} Inhale 2 Puffs every 4 (four) hours as needed for Wheezing or Shortness of Breath. [facility] benzonatate 100 mg capsule 0 3-05 00:00: 00 Yes [id number] 100mg Take 1 capsule by mouth 3 (three) times daily as needed for Cough. [facility] albuterol 90 mcg/actuati on inhaler 0 3-05 00:00: 00 Yes [id number] 2{puff} Inhale 2 Puffs every 4 (four) hours as needed for Wheezing or Shortness of Breath. [facility] benzonatate 100 mg capsule 0 3-05 00:00: 00 Yes [id number] 100mg Take 1 capsule by mouth 3 (three) times daily as needed for Cough. [facility] albuterol 90 mcg/actuati on inhaler 0 3-05 00:00: 00 Yes [id number] 2{puff} Inhale 2 Puffs every 4 (four) hours as needed for Wheezing or Shortness of Breath. [facility] benzonatate 100 mg capsule 2021-0 3-05 00:00: 00 Yes [id number] 100mg Take 1 capsule by mouth 3 (three) times daily as needed for Cough. [facility] albuterol 90 mcg/actuati on inhaler 2021-0 3-05 00:00: 00 Yes [id number] 2{puff} Inhale 2 Puffs every 4 (four) hours as needed for Wheezing or Shortness of Breath. [facility] benzon[facility]ate 100 mg capsule 2021-0 3-05 00:00: 00 Yes [id number] 100mg Take 1 capsule by mouth 3 (three) times daily as needed for Cough. [facility] albuterol 90 mcg/actuati on inhaler 2021-0 3-05 00:00: 00 Yes [id number] 2{puff} Inhale 2 Puffs every 4 (four) hours as needed for Wheezing or Shortness of Breath. [facility] benzonatate 100 mg capsule 2021-0 3-05 00:00: 00 Yes [id number] 100mg Take 1 capsule by mouth 3 (three) times daily as needed for Cough. [facility] albuterol 90 mcg/actuati on inhaler 2021-0 3-05 00:00: 00 Yes [id number] 2{puff} Inhale 2 Puffs every 4 (four) hours as needed for Wheezing or Shortness of Breath. [facility] benzonatate 100 mg capsule 2021-0 3-05 00:00: 00 Yes [id number] 100mg Take 1 capsule by mouth 3 (three) times daily as needed for Cough. [facility] albuterol 90 mcg/actuati on inhaler 0 3-05 00:00: 00 Yes [id number] 2{puff} Inhale 2 Puffs every 4 (four) hours as needed for Wheezing or Shortness of Breath. [facility] benzonatate 100 mg capsule 2021-0 3-05 00:00: 00 Yes [id number] 100mg Take 1 capsule by mouth 3 (three) times daily as needed for Cough. [facility] albuterol 90 mcg/actuati on inhaler 2021-0 3-05 00:00: 00 Yes [id number] 2{puff} Inhale 2 Puffs every 4 (four) hours as needed for Wheezing or Shortness of Breath. [facility] benzonatate 100 mg capsule 2-0 3-05 00:00: 00 Yes [id number] 100mg Take 1 capsule by mouth 3 (three) times daily as needed for Cough. [facility] albuterol 90 mcg/actuati on inhaler 2021-0 3-05 00:00: 00 Yes [id number] 2{puff} Inhale 2 Puffs every 4 (four) hours as needed for Wheezing or Shortness of Breath. [facility] benzonatate 100 mg capsule 2021-0 3-05 00:00: 00 Yes [id number] 100mg Take 1 capsule by mouth 3 (three) times daily as needed for Cough. [facility] albuterol 90 mcg/actuati on inhaler 0 3-05 00:00: 00 Yes [id number] 2{puff} Inhale 2 Puffs every 4 (four) hours as needed for Wheezing or Shortness of Breath. [facility] benzonatate 100 mg capsule 0 305 00:00: 00 Yes [id number] 100mg Take 1 capsule by mouth 3 (three) times daily as needed for Cough. [facility] albuterol 90 mcg/actuati on inhaler 0 3-05 00:00: 00 Yes [id number] 2{puff} Inhale 2 Puffs every 4 (four) hours as needed for Wheezing or Shortness of Breath. [facility] benzonatate 100 mg capsule 2021-0 305 00:00: 00 Yes [id number] 100mg Take 1 capsule by mouth 3 (three) times daily as needed for Cough. [facility] albuterol 90 mcg/actuati on inhaler 0 3-05 00:00: 00 Yes [id number] 2{puff} Inhale 2 Puffs every 4 (four) hours as needed for Wheezing or Shortness of Breath. [facility] benzonatate 100 mg capsule 2021-0 3-05 00:00: 00 Yes [id number] 100mg Take 1 capsule by mouth 3 (three) times daily as needed for Cough. [facility] albuterol 90 mcg/actuati on inhaler 2021-0 3-05 00:00: 00 Yes [id number] 2{puff} Inhale 2 Puffs every 4 (four) hours as needed for Wheezing or Shortness of Breath. [facility] benzonatate 100 mg capsule 2021-0 3-05 00:00: 00 Yes [id number] 100mg Take 1 capsule by mouth 3 (three) times daily as needed for Cough. [facility] albuterol 90 mcg/actuati on inhaler 2021-0 3-05 00:00: 00 Yes [id number] 2{puff} Inhale 2 Puffs every 4 (four) hours as needed for Wheezing or Shortness of Breath. [facility] benzonatate 100 mg capsule 0 3-05 00:00: 00 Yes [id number] 100mg Take 1 capsule by mouth 3 (three) times daily as needed for Cough. [facility] albuterol 90 mcg/actuati on inhaler 0 3-05 00:00: 00 Yes [id number] 2{puff} Inhale 2 Puffs every 4 (four) hours as needed for Wheezing or Shortness of Breath. [facility] benzonatate 100 mg capsule 2021-0 3-05 00:00: 00 Yes [id number] 100mg Take 1 capsule by mouth 3 (three) times daily as needed for Cough. [facility] albuterol 90 mcg/actuati on inhaler 0 3-05 00:00: 00 Yes [id number] 2{puff} Inhale 2 Puffs every 4 (four) hours as needed for Wheezing or Shortness of Breath. [facility] benzonatate 100 mg capsule 0 3-05 00:00: 00 Yes [id number] 100mg Take 1 capsule by mouth 3 (three) times daily as needed for Cough. [facility] albuterol 90 mcg/actuati on inhaler 0 3-05 00:00: 00 Yes [id number] 2{puff} Inhale 2 Puffs every 4 (four) hours as needed for Wheezing or Shortness of Breath. [facility] benzonatate 100 mg capsule 2021-0 3-05 00:00: 00 Yes [id number] 100mg Take 1 capsule by mouth 3 (three) times daily as needed for Cough. [facility] albuterol 90 mcg/actuati on inhaler 2021-0 3-05 00:00: 00 Yes [id number] 2{puff} Inhale 2 Puffs every 4 (four) hours as needed for Wheezing or Shortness of Breath. [facility] benzon[facility]ate 100 mg capsule 2021-0 3-05 00:00: 00 Yes [id number] 100mg Take 1 capsule by mouth 3 (three) times daily as needed for Cough. [facility] albuterol 90 mcg/actuati on inhaler 2021-0 3-05 00:00: 00 Yes [id number] 2{puff} Inhale 2 Puffs every 4 (four) hours as needed for Wheezing or Shortness of Breath. [facility] benzon[facility]ate 100 mg capsule 2021-0 3-05 00:00: 00 Yes [id number] 100mg Take 1 capsule by mouth 3 (three) times daily as needed for Cough. [facility] albuterol 90 mcg/actuati on inhaler 0 3-05 00:00: 00 Yes [id number] 2{puff} Inhale 2 Puffs every 4 (four) hours as needed for Wheezing or Shortness of Breath. [facility] benzonatate 100 mg capsule 2021-0 3-05 00:00: 00 Yes [id number] 100mg Take 1 capsule by mouth 3 (three) times daily as needed for Cough. [facility] albuterol 90 mcg/actuati on inhaler 0 3-05 00:00: 00 Yes [id number] 2{puff} Inhale 2 Puffs every 4 (four) hours as needed for Wheezing or Shortness of Breath. [facility] benzonatate 100 mg capsule 2021-0 3-05 00:00: 00 Yes [id number] 100mg Take 1 capsule by mouth 3 (three) times daily as needed for Cough. [facility] albuterol 90 mcg/actuati on inhaler 2021-0 3-05 00:00: 00 Yes [id number] 2{puff} Inhale 2 Puffs every 4 (four) hours as needed for Wheezing or Shortness of Breath. [facility] benzonatate 100 mg capsule 2-0 3-05 00:00: 00 Yes [id number] 100mg Take 1 capsule by mouth 3 (three) times daily as needed for Cough. [facility] albuterol 90 mcg/actuati on inhaler 2022-0 3-05 00:00: 00 Yes [id number] 2{puff} Inhale 2 Puffs every 4 (four) hours as needed for Wheezing or Shortness of Breath. [facility] benzon[facility]ate 100 mg capsule 0 305 00:00: 00 Yes [id number] 100mg Take 1 capsule by mouth 3 (three) times daily as needed for Cough. [facility] albuterol 90 mcg/actuati on inhaler 305 00:00: 00 Yes [id number] 2{puff} Inhale 2 Puffs every 4 (four) hours as needed for Wheezing or Shortness of Breath. [facility] benzon[facility]ate 100 mg capsule 0 3 00:00: 00 Yes [id number] 100mg Take 1 capsule by mouth 3 (three) times daily as needed for Cough. [facility] albuterol 90 mcg/actuati on inhaler 3 00:00: 00 Yes [id number] 2{puff} Inhale 2 Puffs every 4 (four) hours as needed for Wheezing or Shortness of Breath. [facility] benzonatate 100 mg capsule 0 3 00:00: 00 Yes [id number] 100mg Take 1 capsule by mouth 3 (three) times daily as needed for Cough. [facility] albuterol 90 mcg/actuati on inhaler 305 00:00: 00 Yes [id number] 2{puff} Inhale 2 Puffs every 4 (four) hours as needed for Wheezing or Shortness of Breath. [facility] benzonatate 100 mg capsule 0 3-05 00:00: 00 Yes [id number] 100mg Take 1 capsule by mouth 3 (three) times daily as needed for Cough. [facility] albuterol 90 mcg/actuati on inhaler 0 3-05 00:00: 00 Yes [id number] 2{puff} Inhale 2 Puffs every 4 (four) hours as needed for Wheezing or Shortness of Breath. [facility] benzonatate 100 mg capsule 2021-0 3-05 00:00: 00 Yes [id number] 100mg Take 1 capsule by mouth 3 (three) times daily as needed for Cough. [facility] albuterol 90 mcg/actuati on inhaler 2021-0 3-05 00:00: 00 Yes [id number] 2{puff} Inhale 2 Puffs every 4 (four) hours as needed for Wheezing or Shortness of Breath. [facility] benzonatate 100 mg capsule 2021-0 3-05 00:00: 00 Yes [id number] 100mg Take 1 capsule by mouth 3 (three) times daily as needed for Cough. [facility] albuterol 90 mcg/actuati on inhaler 0 3-05 00:00: 00 Yes [id number] 2{puff} Inhale 2 Puffs every 4 (four) hours as needed for Wheezing or Shortness of Breath. [facility] benzonatate 100 mg capsule 2021-0 3-05 00:00: 00 Yes [id number] 100mg Take 1 capsule by mouth 3 (three) times daily as needed for Cough. [facility] albuterol 90 mcg/actuati on inhaler 0 3-05 00:00: 00 Yes [id number] 2{puff} Inhale 2 Puffs every 4 (four) hours as needed for Wheezing or Shortness of Breath. [facility] benzonatate 100 mg capsule 2021-0 3-05 00:00: 00 Yes [id number] 100mg Take 1 capsule by mouth 3 (three) times daily as needed for Cough. [facility] albuterol 90 mcg/actuati on inhaler 0 3-05 00:00: 00 Yes [id number] 2{puff} Inhale 2 Puffs every 4 (four) hours as needed for Wheezing or Shortness of Breath. [facility] benzonatate 100 mg capsule 2021-0 3-05 00:00: 00 Yes [id number] 100mg Take 1 capsule by mouth 3 (three) times daily as needed for Cough. [facility] albuterol 90 mcg/actuati on inhaler 2021-0 3-05 00:00: 00 Yes [id number] 2{puff} Inhale 2 Puffs every 4 (four) hours as needed for Wheezing or Shortness of Breath. [facility] benzonatate 100 mg capsule 2021-0 3-05 00:00: 00 Yes [id number] 100mg Take 1 capsule by mouth 3 (three) times daily as needed for Cough. [facility] albuterol 90 mcg/actuati on inhaler 2021-0 3-05 00:00: 00 Yes [id number] 2{puff} Inhale 2 Puffs every 4 (four) hours as needed for Wheezing or Shortness of Breath. [facility] benzonatate 100 mg capsule 2021-0 3-05 00:00: 00 Yes [id number] 100mg Take 1 capsule by mouth 3 (three) times daily as needed for Cough. [facility] albuterol 90 mcg/actuati on inhaler 0 3-05 00:00: 00 Yes [id number] 2{puff} Inhale 2 Puffs every 4 (four) hours as needed for Wheezing or Shortness of Breath. [facility] benzonatate 100 mg capsule 2021-0 3-05 00:00: 00 Yes [id number] 100mg Take 1 capsule by mouth 3 (three) times daily as needed for Cough. [facility] albuterol 90 mcg/actuati on inhaler 0 3-05 00:00: 00 Yes [id number] 2{puff} Inhale 2 Puffs every 4 (four) hours as needed for Wheezing or Shortness of Breath. [facility] benzonatate 100 mg capsule 2021-0 3-05 00:00: 00 Yes [id number] 100mg Take 1 capsule by mouth 3 (three) times daily as needed for Cough. [facility] albuterol 90 mcg/actuati on inhaler 2021-0 3-05 00:00: 00 Yes [id number] 2{puff} Inhale 2 Puffs every 4 (four) hours as needed for Wheezing or Shortness of Breath. [facility] benzonatate 100 mg capsule 2021-0 3-05 00:00: 00 Yes [id number] 100mg Take 1 capsule by mouth 3 (three) times daily as needed for Cough. [facility] albuterol 90 mcg/actuati on inhaler 2022-0 3-05 00:00: 00 Yes [id number] 2{puff} Inhale 2 Puffs every 4 (four) hours as needed for Wheezing or Shortness of Breath. [facility] benzonatate 100 mg capsule 0 3-05 00:00: 00 Yes [id number] 100mg Take 1 capsule by mouth 3 (three) times daily as needed for Cough. [facility] albuterol 90 mcg/actuati on inhaler 3-05 00:00: 00 Yes [id number] 2{puff} Inhale 2 Puffs every 4 (four) hours as needed for Wheezing or Shortness of Breath. [facility] benzonatate 100 mg capsule 0 3 00:00: 00 Yes [id number] 100mg Take 1 capsule by mouth 3 (three) times daily as needed for Cough. [facility] albuterol 90 mcg/actuati on inhaler 0 3 00:00: 00 Yes [id number] 2{puff} Inhale 2 Puffs every 4 (four) hours as needed for Wheezing or Shortness of Breath. [facility] benzonatate 100 mg capsule 0 3 00:00: 00 Yes [id number] 100mg Take 1 capsule by mouth 3 (three) times daily as needed for Cough. [facility] albuterol 90 mcg/actuati on inhaler 0 3-05 00:00: 00 Yes [id number] 2{puff} Inhale 2 Puffs every 4 (four) hours as needed for Wheezing or Shortness of Breath. [facility] benzonatate 100 mg capsule 2021-0 3-05 00:00: 00 Yes [id number] 100mg Take 1 capsule by mouth 3 (three) times daily as needed for Cough. [facility] albuterol 90 mcg/actuati on inhaler 0 3-05 00:00: 00 Yes [id number] 2{puff} Inhale 2 Puffs every 4 (four) hours as needed for Wheezing or Shortness of Breath. [facility] benzonatate 100 mg capsule 2021-0 3-05 00:00: 00 Yes [id number] 100mg Take 1 capsule by mouth 3 (three) times daily as needed for Cough. [facility] albuterol 90 mcg/actuati on inhaler 2021-0 3-05 00:00: 00 Yes [id number] 2{puff} Inhale 2 Puffs every 4 (four) hours as needed for Wheezing or Shortness of Breath. [facility] benzonatate 100 mg capsule 2021-0 3-05 00:00: 00 Yes [id number] 100mg Take 1 capsule by mouth 3 (three) times daily as needed for Cough. [facility] albuterol 90 mcg/actuati on inhaler 0 3-05 00:00: 00 Yes [id number] 2{puff} Inhale 2 Puffs every 4 (four) hours as needed for Wheezing or Shortness of Breath. [facility] benzonatate 100 mg capsule 2021-0 3-05 00:00: 00 Yes [id number] 100mg Take 1 capsule by mouth 3 (three) times daily as needed for Cough. [facility] albuterol 90 mcg/actuati on inhaler 0 3-05 00:00: 00 Yes [id number] 2{puff} Inhale 2 Puffs every 4 (four) hours as needed for Wheezing or Shortness of Breath. [facility] benzonatate 100 mg capsule 2021-0 3-05 00:00: 00 Yes [id number] 100mg Take 1 capsule by mouth 3 (three) times daily as needed for Cough. [facility] albuterol 90 mcg/actuati on inhaler 2021-0 3-05 00:00: 00 Yes [id number] 2{puff} Inhale 2 Puffs every 4 (four) hours as needed for Wheezing or Shortness of Breath. [facility] benzonatate 100 mg capsule 2021-0 3-05 00:00: 00 Yes [id number] 100mg Take 1 capsule by mouth 3 (three) times daily as needed for Cough. [facility] albuterol 90 mcg/actuati on inhaler 2021-0 3-05 00:00: 00 Yes [id number] 2{puff} Inhale 2 Puffs every 4 (four) hours as needed for Wheezing or Shortness of Breath. [facility] benzonatate 100 mg capsule 2021-0 3-05 00:00: 00 Yes [id number] 100mg Take 1 capsule by mouth 3 (three) times daily as needed for Cough. [facility] albuterol 90 mcg/actuati on inhaler 2021-0 3-05 00:00: 00 Yes [id number] 2{puff} Inhale 2 Puffs every 4 (four) hours as needed for Wheezing or Shortness of Breath. [facility] benzonatate 100 mg capsule 2021-0 3-05 00:00: 00 Yes [id number] 100mg Take 1 capsule by mouth 3 (three) times daily as needed for Cough. [facility] albuterol 90 mcg/actuati on inhaler 2021-0 305 00:00: 00 Yes [id number] 2{puff} Inhale 2 Puffs every 4 (four) hours as needed for Wheezing or Shortness of Breath. [facility] benzonatate 100 mg capsule 2021-0 305 00:00: 00 Yes [id number] 100mg Take 1 capsule by mouth 3 (three) times daily as needed for Cough. [facility] albuterol 90 mcg/actuati on inhaler 0 305 00:00: 00 Yes [id number] 2{puff} Inhale 2 Puffs every 4 (four) hours as needed for Wheezing or Shortness of Breath. [facility] benzonatate 100 mg capsule 2021-0 305 00:00: 00 Yes [id number] 100mg Take 1 capsule by mouth 3 (three) times daily as needed for Cough. [facility] albuterol 90 mcg/actuati on inhaler 2021-0 3-05 00:00: 00 Yes [id number] 2{puff} Inhale 2 Puffs every 4 (four) hours as needed for Wheezing or Shortness of Breath. [facility] benzonatate 100 mg capsule 2021-0 3-05 00:00: 00 Yes [id number] 100mg Take 1 capsule by mouth 3 (three) times daily as needed for Cough. [facility] albuterol 90 mcg/actuati on inhaler 2022-0 3-05 00:00: 00 Yes [id number] 2{puff} Inhale 2 Puffs every 4 (four) hours as needed for Wheezing or Shortness of Breath. [facility] benzonatate 100 mg capsule 2021-0 3-05 00:00: 00 Yes [id number] 100mg Take 1 capsule by mouth 3 (three) times daily as needed for Cough. [facility] albuterol 90 mcg/actuati on inhaler 2021-0 3-05 00:00: 00 Yes [id number] 2{puff} Inhale 2 Puffs every 4 (four) hours as needed for Wheezing or Shortness of Breath. [facility] benzonatate 100 mg capsule 2021-0 3-05 00:00: 00 Yes [id number] 100mg Take 1 capsule by mouth 3 (three) times daily as needed for Cough. [facility] albuterol 90 mcg/actuati on inhaler 2021-0 3-05 00:00: 00 Yes [id number] 2{puff} Inhale 2 Puffs every 4 (four) hours as needed for Wheezing or Shortness of Breath. [facility] benzonatate 100 mg capsule 2021-0 3-05 00:00: 00 Yes [id number] 100mg Take 1 capsule by mouth 3 (three) times daily as needed for Cough. [facility] albuterol 90 mcg/actuati on inhaler 2021-0 3-05 00:00: 00 Yes [id number] 2{puff} Inhale 2 Puffs every 4 (four) hours as needed for Wheezing or Shortness of Breath. [facility] benzonatate 100 mg capsule 2021-0 3-05 00:00: 00 Yes [id number] 100mg Take 1 capsule by mouth 3 (three) times daily as needed for Cough. [facility] albuterol 90 mcg/actuati on inhaler 2-0 3-05 00:00: 00 Yes [id number] 2{puff} Inhale 2 Puffs every 4 (four) hours as needed for Wheezing or Shortness of Breath. [facility] benzonatate 100 mg capsule 2-0 3-05 00:00: 00 Yes [id number] 100mg Take 1 capsule by mouth 3 (three) times daily as needed for Cough. [facility] albuterol 90 mcg/actuati on inhaler 2021-0 3-05 00:00: 00 Yes [id number] 2{puff} Inhale 2 Puffs every 4 (four) hours as needed for Wheezing or Shortness of Breath. [facility] benzonatate 100 mg capsule 2021-0 3-05 00:00: 00 Yes [id number] 100mg Take 1 capsule by mouth 3 (three) times daily as needed for Cough. [facility] albuterol 90 mcg/actuati on inhaler 2021-0 3-05 00:00: 00 Yes [id number] 2{puff} Inhale 2 Puffs every 4 (four) hours as needed for Wheezing or Shortness of Breath. [facility] benzonatate 100 mg capsule 2021-0 3-05 00:00: 00 Yes [id number] 100mg Take 1 capsule by mouth 3 (three) times daily as needed for Cough. [facility] albuterol 90 mcg/actuati on inhaler 0 3-05 00:00: 00 Yes [id number] 2{puff} Inhale 2 Puffs every 4 (four) hours as needed for Wheezing or Shortness of Breath. [facility] benzonatate 100 mg capsule 2021-0 3-05 00:00: 00 Yes [id number] 100mg Take 1 capsule by mouth 3 (three) times daily as needed for Cough. [facility] albuterol 90 mcg/actuati on inhaler 2021-0 3-05 00:00: 00 Yes [id number] 2{puff} Inhale 2 Puffs every 4 (four) hours as needed for Wheezing or Shortness of Breath. [facility] benzonatate 100 mg capsule 2021-0 3-05 00:00: 00 Yes [id number] 100mg Take 1 capsule by mouth 3 (three) times daily as needed for Cough. [facility] albuterol 90 mcg/actuati on inhaler 2021-0 3-05 00:00: 00 Yes [id number] 2{puff} Inhale 2 Puffs every 4 (four) hours as needed for Wheezing or Shortness of Breath. [facility] benzonatate 100 mg capsule 2021-0 3-05 00:00: 00 Yes [id number] 100mg Take 1 capsule by mouth 3 (three) times daily as needed for Cough. [facility] albuterol 90 mcg/actuati on inhaler 2021-0 3-05 00:00: 00 Yes [id number] 2{puff} Inhale 2 Puffs every 4 (four) hours as needed for Wheezing or Shortness of Breath. [facility] benzonatate 100 mg capsule 2021-0 3-05 00:00: 00 Yes [id number] 100mg Take 1 capsule by mouth 3 (three) times daily as needed for Cough. [facility] albuterol 90 mcg/actuati on inhaler 2021-0 3-05 00:00: 00 Yes [id number] 2{puff} Inhale 2 Puffs every 4 (four) hours as needed for Wheezing or Shortness of Breath. [facility] benzonatate 100 mg capsule 2021-0 3-05 00:00: 00 Yes [id number] 100mg Take 1 capsule by mouth 3 (three) times daily as needed for Cough. [facility] albuterol 90 mcg/actuati on inhaler 2021-0 3-05 00:00: 00 Yes [id number] 2{puff} Inhale 2 Puffs every 4 (four) hours as needed for Wheezing or Shortness of Breath. [facility] benzonatate 100 mg capsule 2021-0 3-05 00:00: 00 Yes [id number] 100mg Take 1 capsule by mouth 3 (three) times daily as needed for Cough. [facility] albuterol 90 mcg/actuati on inhaler 2021-0 3-05 00:00: 00 Yes [id number] 2{puff} Inhale 2 Puffs every 4 (four) hours as needed for Wheezing or Shortness of Breath. [facility] benzonatate 100 mg capsule 2021-0 3-05 00:00: 00 Yes [id number] 100mg Take 1 capsule by mouth 3 (three) times daily as needed for Cough. [facility] albuterol 90 mcg/actuati on inhaler 2021-0 3-05 00:00: 00 Yes [id number] 2{puff} Inhale 2 Puffs every 4 (four) hours as needed for Wheezing or Shortness of Breath. [facility] benzonatate 100 mg capsule 2021-0 3-05 00:00: 00 Yes [id number] 100mg Take 1 capsule by mouth 3 (three) times daily as needed for Cough. [facility] albuterol 90 mcg/actuati on inhaler 2021-0 3-05 00:00: 00 Yes [id number] 2{puff} Inhale 2 Puffs every 4 (four) hours as needed for Wheezing or Shortness of Breath. [facility] benzonatate 100 mg capsule 2021-0 3-05 00:00: 00 Yes [id number] 100mg Take 1 capsule by mouth 3 (three) times daily as needed for Cough. [facility] albuterol 90 mcg/actuati on inhaler 2021-0 3-05 00:00: 00 Yes [id number] 2{puff} Inhale 2 Puffs every 4 (four) hours as needed for Wheezing or Shortness of Breath. [facility] benzonatate 100 mg capsule 2021-0 3-05 00:00: 00 Yes [id number] 100mg Take 1 capsule by mouth 3 (three) times daily as needed for Cough. [facility] albuterol 90 mcg/actuati on inhaler 0 3-05 00:00: 00 Yes [id number] 2{puff} Inhale 2 Puffs every 4 (four) hours as needed for Wheezing or Shortness of Breath. [facility] benzonatate 100 mg capsule 2021-0 3-05 00:00: 00 Yes [id number] 100mg Take 1 capsule by mouth 3 (three) times daily as needed for Cough. [facility] albuterol 90 mcg/actuati on inhaler 2021-0 3-05 00:00: 00 Yes [id number] 2{puff} Inhale 2 Puffs every 4 (four) hours as needed for Wheezing or Shortness of Breath. [facility] benzonatate 100 mg capsule 2-0 3-05 00:00: 00 Yes [id number] 100mg Take 1 capsule by mouth 3 (three) times daily as needed for Cough. [facility] albuterol 90 mcg/actuati on inhaler 2021-0 3-05 00:00: 00 Yes [id number] 2{puff} Inhale 2 Puffs every 4 (four) hours as needed for Wheezing or Shortness of Breath. [facility] benzonatate 100 mg capsule 2021-0 3-05 00:00: 00 Yes [id number] 100mg Take 1 capsule by mouth 3 (three) times daily as needed for Cough. [facility] albuterol 90 mcg/actuati on inhaler 2021-0 3-05 00:00: 00 Yes [id number] 2{puff} Inhale 2 Puffs every 4 (four) hours as needed for Wheezing or Shortness of Breath. [facility] benzonatate 100 mg capsule 2021-0 3-05 00:00: 00 Yes [id number] 100mg Take 1 capsule by mouth 3 (three) times daily as needed for Cough. [facility] albuterol 90 mcg/actuati on inhaler 0 3-05 00:00: 00 Yes [id number] 2{puff} Inhale 2 Puffs every 4 (four) hours as needed for Wheezing or Shortness of Breath. [facility] benzonatate 100 mg capsule 0 305 00:00: 00 Yes [id number] 100mg Take 1 capsule by mouth 3 (three) times daily as needed for Cough. [facility] albuterol 90 mcg/actuati on inhaler 2021-0 3-05 00:00: 00 Yes [id number] 2{puff} Inhale 2 Puffs every 4 (four) hours as needed for Wheezing or Shortness of Breath. [facility] benzonatate 100 mg capsule 2021-0 3-05 00:00: 00 Yes [id number] 100mg Take 1 capsule by mouth 3 (three) times daily as needed for Cough. [facility] albuterol 90 mcg/actuati on inhaler 2021-0 3-05 00:00: 00 Yes [id number] 2{puff} Inhale 2 Puffs every 4 (four) hours as needed for Wheezing or Shortness of Breath. [facility] benzonatate 100 mg capsule 2021-0 3-05 00:00: 00 Yes [id number] 100mg Take 1 capsule by mouth 3 (three) times daily as needed for Cough. [facility] albuterol 90 mcg/actuati on inhaler 2021-0 3-05 00:00: 00 Yes [id number] 2{puff} Inhale 2 Puffs every 4 (four) hours as needed for Wheezing or Shortness of Breath. [facility] benzonatate 100 mg capsule 2021-0 3-05 00:00: 00 Yes [id number] 100mg Take 1 capsule by mouth 3 (three) times daily as needed for Cough. [facility] albuterol 90 mcg/actuati on inhaler 2021-0 3-05 00:00: 00 Yes [id number] 2{puff} Inhale 2 Puffs every 4 (four) hours as needed for Wheezing or Shortness of Breath. [facility] benzonatate 100 mg capsule 2021-0 3-05 00:00: 00 Yes [id number] 100mg Take 1 capsule by mouth 3 (three) times daily as needed for Cough. [facility] albuterol 90 mcg/actuati on inhaler 0 3-05 00:00: 00 Yes [id number] 2{puff} Inhale 2 Puffs every 4 (four) hours as needed for Wheezing or Shortness of Breath. [facility] benzonatate 100 mg capsule 2021-0 3-05 00:00: 00 Yes [id number] 100mg Take 1 capsule by mouth 3 (three) times daily as needed for Cough. [facility] [facility] albuterol 90 mcg/actuati on inhaler 2021-0 3-05 00:00: 00 Yes [id number] 2{puff} Inhale 2 Puffs every 4 (four) hours as needed for Wheezing or Shortness of Breath. [facility] benzonatate 100 mg capsule 2-0 3-05 00:00: 00 Yes [id number] 100mg Take 1 capsule by mouth 3 (three) times daily as needed for Cough. [facility] albuterol 90 mcg/actuati on inhaler 2-0 3-05 00:00: 00 Yes [id number] 2{puff} Inhale 2 Puffs every 4 (four) hours as needed for Wheezing or Shortness of Breath. [facility] benzon[facility]ate 100 mg capsule 2021-0 3-05 00:00: 00 Yes [id number] 100mg Take 1 capsule by mouth 3 (three) times daily as needed for Cough. [facility] albuterol 90 mcg/actuati on inhaler 0 3-05 00:00: 00 Yes [id number] 2{puff} Inhale 2 Puffs every 4 (four) hours as needed for Wheezing or Shortness of Breath. [facility] benzonatate 100 mg capsule 2021-0 305 00:00: 00 Yes [id number] 100mg Take 1 capsule by mouth 3 (three) times daily as needed for Cough. [facility] albuterol 90 mcg/actuati on inhaler 0 305 00:00: 00 Yes [id number] 2{puff} Inhale 2 Puffs every 4 (four) hours as needed for Wheezing or Shortness of Breath. [facility] benzonatate 100 mg capsule 2021-0 305 00:00: 00 Yes [id number] 100mg Take 1 capsule by mouth 3 (three) times daily as needed for Cough. [facility] albuterol 90 mcg/actuati on inhaler 0 3-05 00:00: 00 Yes [id number] 2{puff} Inhale 2 Puffs every 4 (four) hours as needed for Wheezing or Shortness of Breath. [facility] benzonatate 100 mg capsule 2021-0 3-05 00:00: 00 Yes [id number] 100mg Take 1 capsule by mouth 3 (three) times daily as needed for Cough. [facility] albuterol 90 mcg/actuati on inhaler 2021-0 3-05 00:00: 00 Yes [id number] 2{puff} Inhale 2 Puffs every 4 (four) hours as needed for Wheezing or Shortness of Breath. [facility] benzon[facility]ate 100 mg capsule 2-0 3-05 00:00: 00 Yes [id number] 100mg Take 1 capsule by mouth 3 (three) times daily as needed for Cough. [facility] albuterol 90 mcg/actuati on inhaler 2-0 3-05 00:00: 00 Yes [id number] 2{puff} Inhale 2 Puffs every 4 (four) hours as needed for Wheezing or Shortness of Breath. [facility] benzonatate 100 mg capsule 2021-0 3-05 00:00: 00 Yes [id number] 100mg Take 1 capsule by mouth 3 (three) times daily as needed for Cough. [facility] albuterol 90 mcg/actuati on inhaler 2021-0 3-05 00:00: 00 Yes [id number] 2{puff} Inhale 2 Puffs every 4 (four) hours as needed for Wheezing or Shortness of Breath. [facility] benzonatate 100 mg capsule 2021-0 3-05 00:00: 00 Yes [id number] 100mg Take 1 capsule by mouth 3 (three) times daily as needed for Cough. [facility] albuterol 90 mcg/actuati on inhaler 0 3-05 00:00: 00 Yes [id number] 2{puff} Inhale 2 Puffs every 4 (four) hours as needed for Wheezing or Shortness of Breath. [facility] benzonatate 100 mg capsule 2021-0 3-05 00:00: 00 Yes [id number] 100mg Take 1 capsule by mouth 3 (three) times daily as needed for Cough. [facility] albuterol 90 mcg/actuati on inhaler 2021-0 3-05 00:00: 00 Yes [id number] 2{puff} Inhale 2 Puffs every 4 (four) hours as needed for Wheezing or Shortness of Breath. [facility] benzonatate 100 mg capsule 2021-0 3-05 00:00: 00 Yes [id number] 100mg Take 1 capsule by mouth 3 (three) times daily as needed for Cough. [facility] albuterol 90 mcg/actuati on inhaler 2-0 3-05 00:00: 00 Yes [id number] 2{puff} Inhale 2 Puffs every 4 (four) hours as needed for Wheezing or Shortness of Breath. [facility] benzonatate 100 mg capsule 2021-0 3-05 00:00: 00 Yes [id number] 100mg Take 1 capsule by mouth 3 (three) times daily as needed for Cough. [facility] albuterol 90 mcg/actuati on inhaler 0 3-05 00:00: 00 Yes [id number] 2{puff} Inhale 2 Puffs every 4 (four) hours as needed for Wheezing or Shortness of Breath. [facility] benzonatate 100 mg capsule 2021-0 3-05 00:00: 00 Yes [id number] 100mg Take 1 capsule by mouth 3 (three) times daily as needed for Cough. [facility] albuterol 90 mcg/actuati on inhaler 0 3-05 00:00: 00 Yes [id number] 2{puff} Inhale 2 Puffs every 4 (four) hours as needed for Wheezing or Shortness of Breath. [facility] benzonatate 100 mg capsule 2021-0 3-05 00:00: 00 Yes [id number] 100mg Take 1 capsule by mouth 3 (three) times daily as needed for Cough. [facility] albuterol 90 mcg/actuati on inhaler 0 3-05 00:00: 00 Yes [id number] 2{puff} Inhale 2 Puffs every 4 (four) hours as needed for Wheezing or Shortness of Breath. [facility] benzonatate 100 mg capsule 2021-0 3-05 00:00: 00 Yes [id number] 100mg Take 1 capsule by mouth 3 (three) times daily as needed for Cough. [facility] albuterol 90 mcg/actuati on inhaler 0 3-05 00:00: 00 Yes [id number] 2{puff} Inhale 2 Puffs every 4 (four) hours as needed for Wheezing or Shortness of Breath. [facility] benzonatate 100 mg capsule 2021-0 3-05 00:00: 00 Yes [id number] 100mg Take 1 capsule by mouth 3 (three) times daily as needed for Cough. [facility] albuterol 90 mcg/actuati on inhaler 2021-0 3-05 00:00: 00 Yes [id number] 2{puff} Inhale 2 Puffs every 4 (four) hours as needed for Wheezing or Shortness of Breath. [facility] benzonatate 100 mg capsule 3 00:00: 00 Yes [id number] 100mg Take 1 capsule by mouth 3 (three) times daily as needed for Cough. [facility] albuterol 90 mcg/actuati on inhaler 3 00:00: 00 Yes [id number] 2{puff} Inhale 2 Puffs every 4 (four) hours as needed for Wheezing or Shortness of Breath. [facility] albuterol 90 mcg/actuati on inhaler 3 00:00: 00 Yes [id number] 2{puff} Inhale 2 Puffs every 4 (four) hours as needed for Wheezing or Shortness of Breath. [facility] albuterol 90 mcg/actuati on inhaler 3 00:00: 00 Yes [id number] 2{puff} Inhale 2 Puffs every 4 (four) hours as needed for Wheezing or Shortness of Breath. [facility] albuterol 90 mcg/actuati on inhaler 3 00:00: 00 Yes [id number] 2{puff} Inhale 2 Puffs every 4 (four) hours as needed for Wheezing or Shortness of Breath. [facility] albuterol 90 mcg/actuati on inhaler 3 00:00: 00 Yes [id number] 2{puff} Inhale 2 Puffs every 4 (four) hours as needed for Wheezing or Shortness of Breath. [facility] albuterol 90 mcg/actuati on inhaler 3-05 00:00: 00 Yes [id number] 2{puff} Inhale 2 Puffs every 4 (four) hours as needed for Wheezing or Shortness of Breath. [facility] albuterol 90 mcg/actuati on inhaler 3-05 00:00: 00 Yes [id number] 2{puff} Inhale 2 Puffs every 4 (four) hours as needed for Wheezing or Shortness of Breath. [facility] albuterol 90 mcg/actuati on inhaler 3-05 00:00: 00 Yes [id number] 2{puff} Inhale 2 Puffs every 4 (four) hours as needed for Wheezing or Shortness of Breath. [facility] albuterol 90 mcg/actuati on inhaler 3-05 00:00: 00 Yes [id number] 2{puff} Inhale 2 Puffs every 4 (four) hours as needed for Wheezing or Shortness of Breath. [facility] albuterol 90 mcg/actuati on inhaler 3-05 00:00: 00 Yes [id number] 2{puff} Inhale 2 Puffs every 4 (four) hours as needed for Wheezing or Shortness of Breath. [facility] albuterol 90 mcg/actuati on inhaler 3-05 00:00: 00 Yes [id number] 2{puff} Inhale 2 Puffs every 4 (four) hours as needed for Wheezing or Shortness of Breath. [facility] albuterol 90 mcg/actuati on inhaler 3-05 00:00: 00 Yes [id number] 2{puff} Inhale 2 Puffs every 4 (four) hours as needed for Wheezing or Shortness of Breath. [facility] albuterol 90 mcg/actuati on inhaler 3-05 00:00: 00 Yes [id number] 2{puff} Inhale 2 Puffs every 4 (four) hours as needed for Wheezing or Shortness of Breath. [facility] albuterol 90 mcg/actuati on inhaler 3-05 00:00: 00 Yes [id number] 2{puff} Inhale 2 Puffs every 4 (four) hours as needed for Wheezing or Shortness of Breath. [facility] albuterol 90 mcg/actuati on inhaler 3-05 00:00: 00 Yes [id number] 2{puff} Inhale 2 Puffs every 4 (four) hours as needed for Wheezing or Shortness of Breath. [facility] albuterol 90 mcg/actuati on inhaler 3-05 00:00: 00 Yes [id number] 2{puff} Inhale 2 Puffs every 4 (four) hours as needed for Wheezing or Shortness of Breath. [facility] albuterol 90 mcg/actuati on inhaler 3- 00:00: 00 Yes [id number] 2{puff} Inhale 2 Puffs every 4 (four) hours as needed for Wheezing or Shortness of Breath. [facility] albuterol 90 mcg/actuati on inhaler 3 00:00: 00 Yes [id number] 2{puff} Inhale 2 Puffs every 4 (four) hours as needed for Wheezing or Shortness of Breath. [facility] albuterol 90 mcg/actuati on inhaler 3 00:00: 00 Yes [id number] 2{puff} Inhale 2 Puffs every 4 (four) hours as needed for Wheezing or Shortness of Breath. [facility] albuterol 90 mcg/actuati on inhaler 3 00:00: 00 Yes [id number] 2{puff} Inhale 2 Puffs every 4 (four) hours as needed for Wheezing or Shortness of Breath. [facility] albuterol 90 mcg/actuati on inhaler 3 00:00: 00 Yes [id number] 2{puff} Inhale 2 Puffs every 4 (four) hours as needed for Wheezing or Shortness of Breath. [facility] albuterol 90 mcg/actuati on inhaler 3 00:00: 00 Yes [id number] 2{puff} Inhale 2 Puffs every 4 (four) hours as needed for Wheezing or Shortness of Breath. [facility] albuterol 90 mcg/actuati on inhaler 3-05 00:00: 00 Yes [id number] 2{puff} Inhale 2 Puffs every 4 (four) hours as needed for Wheezing or Shortness of Breath. [facility] albuterol 90 mcg/actuati on inhaler 3-05 00:00: 00 Yes [id number] 2{puff} Inhale 2 Puffs every 4 (four) hours as needed for Wheezing or Shortness of Breath. [facility] albuterol 90 mcg/actuati on inhaler 3-05 00:00: 00 Yes [id number] 2{puff} Inhale 2 Puffs every 4 (four) hours as needed for Wheezing or Shortness of Breath. [facility] albuterol 90 mcg/actuati on inhaler 3-05 00:00: 00 Yes [id number] 2{puff} Inhale 2 Puffs every 4 (four) hours as needed for Wheezing or Shortness of Breath. [facility] albuterol 90 mcg/actuati on inhaler 3-05 00:00: 00 Yes [id number] 2{puff} Inhale 2 Puffs every 4 (four) hours as needed for Wheezing or Shortness of Breath. [facility] albuterol 90 mcg/actuati on inhaler 3- 00:00: 00 Yes [id number] 2{puff} Inhale 2 Puffs every 4 (four) hours as needed for Wheezing or Shortness of Breath. [facility] albuterol 90 mcg/actuati on inhaler 3-05 00:00: 00 Yes [id number] 2{puff} Inhale 2 Puffs every 4 (four) hours as needed for Wheezing or Shortness of Breath. [facility] albuterol 90 mcg/actuati on inhaler 3-05 00:00: 00 Yes [id number] 2{puff} Inhale 2 Puffs every 4 (four) hours as needed for Wheezing or Shortness of Breath. [facility] albuterol 90 mcg/actuati on inhaler 3-05 00:00: 00 Yes [id number] 2{puff} Inhale 2 Puffs every 4 (four) hours as needed for Wheezing or Shortness of Breath. [facility] albuterol 90 mcg/actuati on inhaler 3-05 00:00: 00 Yes [id number] 2{puff} Inhale 2 Puffs every 4 (four) hours as needed for Wheezing or Shortness of Breath. [facility] albuterol 90 mcg/actuati on inhaler 3-05 00:00: 00 Yes [id number] 2{puff} Inhale 2 Puffs every 4 (four) hours as needed for Wheezing or Shortness of Breath. [facility] albuterol 90 mcg/actuati on inhaler 3-05 00:00: 00 Yes [id number] 2{puff} Inhale 2 Puffs every 4 (four) hours as needed for Wheezing or Shortness of Breath. [facility] albuterol 90 mcg/actuati on inhaler 3-05 00:00: 00 Yes [id number] 2{puff} Inhale 2 Puffs every 4 (four) hours as needed for Wheezing or Shortness of Breath. [facility] albuterol 90 mcg/actuati on inhaler 3-05 00:00: 00 Yes [id number] 2{puff} Inhale 2 Puffs every 4 (four) hours as needed for Wheezing or Shortness of Breath. [facility] albuterol 90 mcg/actuati on inhaler 3-05 00:00: 00 Yes [id number] 2{puff} Inhale 2 Puffs every 4 (four) hours as needed for Wheezing or Shortness of Breath. [facility] albuterol 90 mcg/actuati on inhaler 3-05 00:00: 00 Yes [id number] 2{puff} Inhale 2 Puffs every 4 (four) hours as needed for Wheezing or Shortness of Breath. [facility] albuterol 90 mcg/actuati on inhaler 3-05 00:00: 00 Yes [id number] 2{puff} Inhale 2 Puffs every 4 (four) hours as needed for Wheezing or Shortness of Breath. [facility] albuterol 90 mcg/actuati on inhaler 3-05 00:00: 00 Yes [id number] 2{puff} Inhale 2 Puffs every 4 (four) hours as needed for Wheezing or Shortness of Breath. [facility] albuterol 90 mcg/actuati on inhaler 3-05 00:00: 00 Yes [id number] 2{puff} Inhale 2 Puffs every 4 (four) hours as needed for Wheezing or Shortness of Breath. [facility] albuterol 90 mcg/actuati on inhaler 3- 00:00: 00 Yes [id number] 2{puff} Inhale 2 Puffs every 4 (four) hours as needed for Wheezing or Shortness of Breath. [facility] albuterol 90 mcg/actuati on inhaler 3 00:00: 00 Yes [id number] 2{puff} Inhale 2 Puffs every 4 (four) hours as needed for Wheezing or Shortness of Breath. [facility] albuterol 90 mcg/actuati on inhaler 3 00:00: 00 Yes [id number] 2{puff} Inhale 2 Puffs every 4 (four) hours as needed for Wheezing or Shortness of Breath. [facility] albuterol 90 mcg/actuati on inhaler 3 00:00: 00 Yes [id number] 2{puff} Inhale 2 Puffs every 4 (four) hours as needed for Wheezing or Shortness of Breath. [facility] albuterol 90 mcg/actuati on inhaler 3 00:00: 00 Yes [id number] 2{puff} Inhale 2 Puffs every 4 (four) hours as needed for Wheezing or Shortness of Breath. [facility] albuterol 90 mcg/actuati on inhaler 3 00:00: 00 Yes [id number] 2{puff} Inhale 2 Puffs every 4 (four) hours as needed for Wheezing or Shortness of Breath. [facility] albuterol 90 mcg/actuati on inhaler 3-05 00:00: 00 Yes [id number] 2{puff} Inhale 2 Puffs every 4 (four) hours as needed for Wheezing or Shortness of Breath. [facility] albuterol 90 mcg/actuati on inhaler 3-05 00:00: 00 Yes [id number] 2{puff} Inhale 2 Puffs every 4 (four) hours as needed for Wheezing or Shortness of Breath. [facility] albuterol 90 mcg/actuati on inhaler 3-05 00:00: 00 Yes [id number] 2{puff} Inhale 2 Puffs every 4 (four) hours as needed for Wheezing or Shortness of Breath. [facility] albuterol 90 mcg/actuati on inhaler 3-05 00:00: 00 Yes [id number] 2{puff} Inhale 2 Puffs every 4 (four) hours as needed for Wheezing or Shortness of Breath. [facility] albuterol 90 mcg/actuati on inhaler 3-05 00:00: 00 Yes [id number] 2{puff} Inhale 2 Puffs every 4 (four) hours as needed for Wheezing or Shortness of Breath. [facility] albuterol 90 mcg/actuati on inhaler 3- 00:00: 00 Yes [id number] 2{puff} Inhale 2 Puffs every 4 (four) hours as needed for Wheezing or Shortness of Breath. [facility] albuterol 90 mcg/actuati on inhaler 3-05 00:00: 00 Yes [id number] 2{puff} Inhale 2 Puffs every 4 (four) hours as needed for Wheezing or Shortness of Breath. [facility] albuterol 90 mcg/actuati on inhaler 3-05 00:00: 00 Yes [id number] 2{puff} Inhale 2 Puffs every 4 (four) hours as needed for Wheezing or Shortness of Breath. [facility] albuterol 90 mcg/actuati on inhaler 3-05 00:00: 00 Yes [id number] 2{puff} Inhale 2 Puffs every 4 (four) hours as needed for Wheezing or Shortness of Breath. [facility] albuterol 90 mcg/actuati on inhaler 3-05 00:00: 00 Yes [id number] 2{puff} Inhale 2 Puffs every 4 (four) hours as needed for Wheezing or Shortness of Breath. [facility] albuterol 90 mcg/actuati on inhaler 3-05 00:00: 00 Yes [id number] 2{puff} Inhale 2 Puffs every 4 (four) hours as needed for Wheezing or Shortness of Breath. [facility] albuterol 90 mcg/actuati on inhaler 3-05 00:00: 00 Yes [id number] 2{puff} Inhale 2 Puffs every 4 (four) hours as needed for Wheezing or Shortness of Breath. [facility] albuterol 90 mcg/actuati on inhaler 3-05 00:00: 00 Yes [id number] 2{puff} Inhale 2 Puffs every 4 (four) hours as needed for Wheezing or Shortness of Breath. [facility] albuterol 90 mcg/actuati on inhaler 3-05 00:00: 00 Yes [id number] 2{puff} Inhale 2 Puffs every 4 (four) hours as needed for Wheezing or Shortness of Breath. [facility] albuterol 90 mcg/actuati on inhaler 3-05 00:00: 00 Yes [id number] 2{puff} Inhale 2 Puffs every 4 (four) hours as needed for Wheezing or Shortness of Breath. [facility] albuterol 90 mcg/actuati on inhaler 3-05 00:00: 00 Yes [id number] 2{puff} Inhale 2 Puffs every 4 (four) hours as needed for Wheezing or Shortness of Breath. [facility] albuterol 90 mcg/actuati on inhaler 3-05 00:00: 00 Yes [id number] 2{puff} Inhale 2 Puffs every 4 (four) hours as needed for Wheezing or Shortness of Breath. [facility] albuterol 90 mcg/actuati on inhaler 3-05 00:00: 00 Yes [id number] 2{puff} Inhale 2 Puffs every 4 (four) hours as needed for Wheezing or Shortness of Breath. [facility] albuterol 90 mcg/actuati on inhaler 3-05 00:00: 00 Yes [id number] 2{puff} Inhale 2 Puffs every 4 (four) hours as needed for Wheezing or Shortness of Breath. [facility] albuterol 90 mcg/actuati on inhaler 3- 00:00: 00 Yes [id number] 2{puff} Inhale 2 Puffs every 4 (four) hours as needed for Wheezing or Shortness of Breath. [facility] albuterol 90 mcg/actuati on inhaler 3 00:00: 00 Yes [id number] 2{puff} Inhale 2 Puffs every 4 (four) hours as needed for Wheezing or Shortness of Breath. [facility] albuterol 90 mcg/actuati on inhaler 3 00:00: 00 Yes [id number] 2{puff} Inhale 2 Puffs every 4 (four) hours as needed for Wheezing or Shortness of Breath. [facility] albuterol 90 mcg/actuati on inhaler 3 00:00: 00 Yes [id number] 2{puff} Inhale 2 Puffs every 4 (four) hours as needed for Wheezing or Shortness of Breath. [facility] albuterol 90 mcg/actuati on inhaler 3 00:00: 00 Yes [id number] 2{puff} Inhale 2 Puffs every 4 (four) hours as needed for Wheezing or Shortness of Breath. [facility] albuterol 90 mcg/actuati on inhaler 3 00:00: 00 Yes [id number] 2{puff} Inhale 2 Puffs every 4 (four) hours as needed for Wheezing or Shortness of Breath. [facility] albuterol 90 mcg/actuati on inhaler 3-05 00:00: 00 Yes [id number] 2{puff} Inhale 2 Puffs every 4 (four) hours as needed for Wheezing or Shortness of Breath. [facility] albuterol 90 mcg/actuati on inhaler 3-05 00:00: 00 Yes [id number] 2{puff} Inhale 2 Puffs every 4 (four) hours as needed for Wheezing or Shortness of Breath. [facility] albuterol 90 mcg/actuati on inhaler 3-05 00:00: 00 Yes [id number] 2{puff} Inhale 2 Puffs every 4 (four) hours as needed for Wheezing or Shortness of Breath. [facility] albuterol 90 mcg/actuati on inhaler 3-05 00:00: 00 Yes [id number] 2{puff} Inhale 2 Puffs every 4 (four) hours as needed for Wheezing or Shortness of Breath. [facility] albuterol 90 mcg/actuati on inhaler 3-05 00:00: 00 Yes [id number] 2{puff} Inhale 2 Puffs every 4 (four) hours as needed for Wheezing or Shortness of Breath. [facility] albuterol 90 mcg/actuati on inhaler 3- 00:00: 00 Yes [id number] 2{puff} Inhale 2 Puffs every 4 (four) hours as needed for Wheezing or Shortness of Breath. [facility] albuterol 90 mcg/actuati on inhaler 3-05 00:00: 00 Yes [id number] 2{puff} Inhale 2 Puffs every 4 (four) hours as needed for Wheezing or Shortness of Breath. [facility] albuterol 90 mcg/actuati on inhaler 3-05 00:00: 00 Yes [id number] 2{puff} Inhale 2 Puffs every 4 (four) hours as needed for Wheezing or Shortness of Breath. [facility] albuterol 90 mcg/actuati on inhaler 3-05 00:00: 00 Yes [id number] 2{puff} Inhale 2 Puffs every 4 (four) hours as needed for Wheezing or Shortness of Breath. [facility] albuterol 90 mcg/actuati on inhaler 3-05 00:00: 00 Yes [id number] 2{puff} Inhale 2 Puffs every 4 (four) hours as needed for Wheezing or Shortness of Breath. [facility] albuterol 90 mcg/actuati on inhaler 3-05 00:00: 00 Yes [id number] 2{puff} Inhale 2 Puffs every 4 (four) hours as needed for Wheezing or Shortness of Breath. [facility] albuterol 90 mcg/actuati on inhaler 3-05 00:00: 00 Yes [id number] 2{puff} Inhale 2 Puffs every 4 (four) hours as needed for Wheezing or Shortness of Breath. [facility] albuterol 90 mcg/actuati on inhaler 3-05 00:00: 00 Yes [id number] 2{puff} Inhale 2 Puffs every 4 (four) hours as needed for Wheezing or Shortness of Breath. [facility] albuterol 90 mcg/actuati on inhaler 3-05 00:00: 00 Yes [id number] 2{puff} Inhale 2 Puffs every 4 (four) hours as needed for Wheezing or Shortness of Breath. [facility] albuterol 90 mcg/actuati on inhaler 3-05 00:00: 00 Yes [id number] 2{puff} Inhale 2 Puffs every 4 (four) hours as needed for Wheezing or Shortness of Breath. [facility] albuterol 90 mcg/actuati on inhaler 3-05 00:00: 00 Yes [id number] 2{puff} Inhale 2 Puffs every 4 (four) hours as needed for Wheezing or Shortness of Breath. [facility] albuterol 90 mcg/actuati on inhaler 3-05 00:00: 00 Yes [id number] 2{puff} Inhale 2 Puffs every 4 (four) hours as needed for Wheezing or Shortness of Breath. [facility] albuterol 90 mcg/actuati on inhaler 3-05 00:00: 00 Yes [id number] 2{puff} Inhale 2 Puffs every 4 (four) hours as needed for Wheezing or Shortness of Breath. [facility] albuterol 90 mcg/actuati on inhaler 3-05 00:00: 00 Yes [id number] 2{puff} Inhale 2 Puffs every 4 (four) hours as needed for Wheezing or Shortness of Breath. [facility] albuterol 90 mcg/actuati on inhaler 10-11 00:00: 00 Yes [id number] 2{puff} Inhale 2 Puffs every 4 (four) hours as needed for Wheezing or Shortness of Breath. [facility] albuterol 90 mcg/actuati on inhaler 10-11 00:00: 00 Yes [id number] 2{puff} Inhale 2 Puffs every 4 (four) hours as needed for Wheezing or Shortness of Breath. [facility] albuterol 90 mcg/actuati on inhaler 10-11 00:00: 00 Yes [id number] 2{puff} Inhale 2 Puffs every 4 (four) hours as needed for Wheezing or Shortness of Breath. [facility] albuterol 90 mcg/actuati on inhaler 10-11 00:00: 00 Yes [id number] 2{puff} Inhale 2 Puffs every 4 (four) hours as needed for Wheezing or Shortness of Breath. [facility] albuterol 90 mcg/actuati on inhaler 10-11 00:00: 00 Yes [id number] 2{puff} Inhale 2 Puffs every 4 (four) hours as needed for Wheezing or Shortness of Breath. [facility] albuterol 90 mcg/actuati on inhaler 10-11 00:00: 00 04-02 00:00 :00 No [id number] 2{puff} Inhale 2 Puffs every 4 (four) hours as needed for Wheezing or Shortness of Breath. [facility] benzonatate 100 mg capsule 10-11 00:00: 00 11-20 00:00 :00 No [id number] 100mg Take 1 capsule by mouth 3 (three) times daily as needed for Cough. [facility] benzonatate 100 mg capsule 10-11 00:00: 00 2023- 04-14 00:00 :00 No [id number] 100mg Take 1 capsule by mouth 3 (three) times daily as needed for Cough. [facility] benzonatate 100 mg capsule 3-05 00:00: 00 14 00:00 :00 No [id number] 100mg Take 1 capsule by mouth 3 (three) times daily as needed for Cough. [facility] dexAMETHaso ne 4 mg tablet 2020-0 8-12 00:00: 00 Yes [id number] 8mg Take 2 tablets by mouth daily. Take on Day 2 and Day 3 of each cycle. [facility] dexAMETHaso ne 4 mg tablet 2020-0 8-12 00:00: 00 Yes [id number] 8mg Take 2 tablets by mouth daily. Take on Day 2 and Day 3 of each cycle. [facility] dexAMETHaso ne 4 mg tablet 2020-0 8-12 00:00: 00 Yes [id number] 8mg Take 2 tablets by mouth daily. Take on Day 2 and Day 3 of each cycle. [facility] dexAMETHaso ne 4 mg tablet 2020-0 8-12 00:00: 00 Yes [id number] 8mg Take 2 tablets by mouth daily. Take on Day 2 and Day 3 of each cycle. [facility] dexAMETHaso ne 4 mg tablet 2020-0 8-12 00:00: 00 Yes [id number] 8mg Take 2 tablets by mouth daily. Take on Day 2 and Day 3 of each cycle. [facility] dexAMETHaso ne 4 mg tablet 2020-0 8-12 00:00: 00 Yes [id number] 8mg Take 2 tablets by mouth daily. Take on Day 2 and Day 3 of each cycle. [facility] dexAMETHaso ne 4 mg tablet 2020-0 8-12 00:00: 00 Yes [id number] 8mg Take 2 tablets by mouth daily. Take on Day 2 and Day 3 of each cycle. [facility] dexAMETHaso ne 4 mg tablet 2020-0 8-12 00:00: 00 Yes [id number] 8mg Take 2 tablets by mouth daily. Take on Day 2 and Day 3 of each cycle. [facility] dexAMETHaso ne 4 mg tablet 2021-0 8-12 00:00: 00 Yes [id number] 04 8mg Take 2 tablets by mouth daily. Take on Day 2 and Day 3 of each cycle. [facility] dexAMETHaso ne 4 mg tablet 1-0 8-12 00:00: 00 Yes [id number] 04 8mg Take 2 tablets by mouth daily. Take on Day 2 and Day 3 of each cycle. [facility] dexAMETHaso ne 4 mg tablet 1-0 8-12 00:00: 00 Yes [id number] 04 8mg Take 2 tablets by mouth daily. Take on Day 2 and Day 3 of each cycle. [facility] dexAMETHaso ne 4 mg tablet 1-0 8-12 00:00: 00 Yes [id number] 04 8mg Take 2 tablets by mouth daily. Take on Day 2 and Day 3 of each cycle. [facility] dexAMETHaso ne 4 mg tablet 2020-0 8-12 00:00: 00 Yes [id number] 04 8mg Take 2 tablets by mouth daily. Take on Day 2 and Day 3 of each cycle. [facility] dexAMETHaso ne 4 mg tablet 1-0 8-12 00:00: 00 Yes [id number] 04 8mg Take 2 tablets by mouth daily. Take on Day 2 and Day 3 of each cycle. [facility] dexAMETHaso ne 4 mg tablet 1-0 8-12 00:00: 00 Yes [id number] 04 8mg Take 2 tablets by mouth daily. Take on Day 2 and Day 3 of each cycle. [facility] dexAMETHaso ne 4 mg tablet 1-0 8-12 00:00: 00 Yes [id number] 04 8mg Take 2 tablets by mouth daily. Take on Day 2 and Day 3 of each cycle. [facility] dexAMETHaso ne 4 mg tablet 1-0 8-12 00:00: 00 Yes [id number] 04 8mg Take 2 tablets by mouth daily. Take on Day 2 and Day 3 of each cycle. [facility] dexAMETHaso ne 4 mg tablet 2021-0 8-12 00:00: 00 Yes [id number] 04 8mg Take 2 tablets by mouth daily. Take on Day 2 and Day 3 of each cycle. [facility] dexAMETHaso ne 4 mg tablet 2021-0 8-12 00:00: 00 Yes [id number] 04 8mg Take 2 tablets by mouth daily. Take on Day 2 and Day 3 of each cycle. [facility] dexAMETHaso ne 4 mg tablet 2021-0 8-12 00:00: 00 Yes [id number] 04 8mg Take 2 tablets by mouth daily. Take on Day 2 and Day 3 of each cycle. [facility] dexAMETHaso ne 4 mg tablet 1-0 8-12 00:00: 00 Yes [id number] 04 8mg Take 2 tablets by mouth daily. Take on Day 2 and Day 3 of each cycle. [facility] dexAMETHaso ne 4 mg tablet 1-0 8-12 00:00: 00 Yes [id number] 04 8mg Take 2 tablets by mouth daily. Take on Day 2 and Day 3 of each cycle. [facility] dexAMETHaso ne 4 mg tablet 1-0 8-12 00:00: 00 Yes [id number] 04 8mg Take 2 tablets by mouth daily. Take on Day 2 and Day 3 of each cycle. [facility] dexAMETHaso ne 4 mg tablet 1-0 8-12 00:00: 00 Yes [id number] 04 8mg Take 2 tablets by mouth daily. Take on Day 2 and Day 3 of each cycle. [facility] dexAMETHaso ne 4 mg tablet 1-0 8-12 00:00: 00 Yes [id number] 04 8mg Take 2 tablets by mouth daily. Take on Day 2 and Day 3 of each cycle. [facility] dexAMETHaso ne 4 mg tablet 1-0 8-12 00:00: 00 Yes [id number] 04 8mg Take 2 tablets by mouth daily. Take on Day 2 and Day 3 of each cycle. [facility] dexAMETHaso ne 4 mg tablet 1-0 8-12 00:00: 00 Yes [id number] 04 8mg Take 2 tablets by mouth daily. Take on Day 2 and Day 3 of each cycle. [facility] dexAMETHaso ne 4 mg tablet 1-0 8-12 00:00: 00 Yes [id number] 04 8mg Take 2 tablets by mouth daily. Take on Day 2 and Day 3 of each cycle. [facility] dexAMETHaso ne 4 mg tablet 2021-0 8-12 00:00: 00 Yes [id number] 04 8mg Take 2 tablets by mouth daily. Take on Day 2 and Day 3 of each cycle. [facility] dexAMETHaso ne 4 mg tablet 1-0 8-12 00:00: 00 Yes [id number] 04 8mg Take 2 tablets by mouth daily. Take on Day 2 and Day 3 of each cycle. [facility] dexAMETHaso ne 4 mg tablet 1-0 8-12 00:00: 00 Yes [id number] 04 8mg Take 2 tablets by mouth daily. Take on Day 2 and Day 3 of each cycle. [facility] dexAMETHaso ne 4 mg tablet 2020-0 8-12 00:00: 00 Yes [id number] 04 8mg Take 2 tablets by mouth daily. Take on Day 2 and Day 3 of each cycle. [facility] dexAMETHaso ne 4 mg tablet 2020-0 8-12 00:00: 00 Yes [id number] 04 8mg Take 2 tablets by mouth daily. Take on Day 2 and Day 3 of each cycle. [facility] dexAMETHaso ne 4 mg tablet 1-0 8-12 00:00: 00 Yes [id number] 04 8mg Take 2 tablets by mouth daily. Take on Day 2 and Day 3 of each cycle. [facility] dexAMETHaso ne 4 mg tablet 1-0 8-12 00:00: 00 Yes [id number] 04 8mg Take 2 tablets by mouth daily. Take on Day 2 and Day 3 of each cycle. [facility] dexAMETHaso ne 4 mg tablet 1-0 8-12 00:00: 00 Yes [id number] 04 8mg Take 2 tablets by mouth daily. Take on Day 2 and Day 3 of each cycle. [facility] dexAMETHaso ne 4 mg tablet 1-0 8-12 00:00: 00 Yes [id number] 04 8mg Take 2 tablets by mouth daily. Take on Day 2 and Day 3 of each cycle. [facility] dexAMETHaso ne 4 mg tablet 1-0 8-12 00:00: 00 Yes [id number] 04 8mg Take 2 tablets by mouth daily. Take on Day 2 and Day 3 of each cycle. [facility] dexAMETHaso ne 4 mg tablet 2021-0 8-12 00:00: 00 Yes [id number] 04 8mg Take 2 tablets by mouth daily. Take on Day 2 and Day 3 of each cycle. [facility] dexAMETHaso ne 4 mg tablet 1-0 8-12 00:00: 00 Yes [id number] 04 8mg Take 2 tablets by mouth daily. Take on Day 2 and Day 3 of each cycle. [facility] dexAMETHaso ne 4 mg tablet 1-0 8-12 00:00: 00 Yes [id number] 04 8mg Take 2 tablets by mouth daily. Take on Day 2 and Day 3 of each cycle. [facility] dexAMETHaso ne 4 mg tablet 1-0 8-12 00:00: 00 Yes [id number] 04 8mg Take 2 tablets by mouth daily. Take on Day 2 and Day 3 of each cycle. [facility] dexAMETHaso ne 4 mg tablet 1-0 8-12 00:00: 00 Yes [id number] 04 8mg Take 2 tablets by mouth daily. Take on Day 2 and Day 3 of each cycle. [facility] dexAMETHaso ne 4 mg tablet 1-0 8-12 00:00: 00 Yes [id number] 04 8mg Take 2 tablets by mouth daily. Take on Day 2 and Day 3 of each cycle. [facility] dexAMETHaso ne 4 mg tablet 1-0 8-12 00:00: 00 Yes [id number] 04 8mg Take 2 tablets by mouth daily. Take on Day 2 and Day 3 of each cycle. [facility] dexAMETHaso ne 4 mg tablet 2021-0 8-12 00:00: 00 Yes [id number] 04 8mg Take 2 tablets by mouth daily. Take on Day 2 and Day 3 of each cycle. [facility] dexAMETHaso ne 4 mg tablet 1-0 8-12 00:00: 00 Yes [id number] 04 8mg Take 2 tablets by mouth daily. Take on Day 2 and Day 3 of each cycle. [facility] dexAMETHaso ne 4 mg tablet 1-0 8-12 00:00: 00 Yes [id number] 04 8mg Take 2 tablets by mouth daily. Take on Day 2 and Day 3 of each cycle. [facility] dexAMETHaso ne 4 mg tablet 1-0 8-12 00:00: 00 Yes [id number] 04 8mg Take 2 tablets by mouth daily. Take on Day 2 and Day 3 of each cycle. [facility] dexAMETHaso ne 4 mg tablet 2020-0 8-12 00:00: 00 Yes [id number] 04 8mg Take 2 tablets by mouth daily. Take on Day 2 and Day 3 of each cycle. [facility] dexAMETHaso ne 4 mg tablet 2020-0 8-12 00:00: 00 Yes [id number] 04 8mg Take 2 tablets by mouth daily. Take on Day 2 and Day 3 of each cycle. [facility] dexAMETHaso ne 4 mg tablet 2020-0 8-12 00:00: 00 Yes [id number] 04 8mg Take 2 tablets by mouth daily. Take on Day 2 and Day 3 of each cycle. [facility] dexAMETHaso ne 4 mg tablet 1-0 8-12 00:00: 00 Yes [id number] 04 8mg Take 2 tablets by mouth daily. Take on Day 2 and Day 3 of each cycle. [facility] dexAMETHaso ne 4 mg tablet 1-0 8-12 00:00: 00 Yes [id number] 04 8mg Take 2 tablets by mouth daily. Take on Day 2 and Day 3 of each cycle. [facility] dexAMETHaso ne 4 mg tablet 1-0 8-12 00:00: 00 Yes [id number] 04 8mg Take 2 tablets by mouth daily. Take on Day 2 and Day 3 of each cycle. [facility] dexAMETHaso ne 4 mg tablet 1-0 8-12 00:00: 00 Yes [id number] 04 8mg Take 2 tablets by mouth daily. Take on Day 2 and Day 3 of each cycle. [facility] dexAMETHaso ne 4 mg tablet 2021-0 8-12 00:00: 00 Yes [id number] 04 8mg Take 2 tablets by mouth daily. Take on Day 2 and Day 3 of each cycle. [facility] dexAMETHaso ne 4 mg tablet 2021-0 8-12 00:00: 00 Yes [id number] 04 8mg Take 2 tablets by mouth daily. Take on Day 2 and Day 3 of each cycle. [facility] dexAMETHaso ne 4 mg tablet 1-0 8-12 00:00: 00 Yes [id number] 04 8mg Take 2 tablets by mouth daily. Take on Day 2 and Day 3 of each cycle. [facility] dexAMETHaso ne 4 mg tablet 1-0 8-12 00:00: 00 Yes [id number] 04 8mg Take 2 tablets by mouth daily. Take on Day 2 and Day 3 of each cycle. [facility] dexAMETHaso ne 4 mg tablet 1-0 8-12 00:00: 00 Yes [id number] 04 8mg Take 2 tablets by mouth daily. Take on Day 2 and Day 3 of each cycle. [facility] dexAMETHaso ne 4 mg tablet 1-0 8-12 00:00: 00 Yes [id number] 04 8mg Take 2 tablets by mouth daily. Take on Day 2 and Day 3 of each cycle. [facility] dexAMETHaso ne 4 mg tablet 1-0 8-12 00:00: 00 Yes [id number] 04 8mg Take 2 tablets by mouth daily. Take on Day 2 and Day 3 of each cycle. [facility] dexAMETHaso ne 4 mg tablet 1-0 8-12 00:00: 00 Yes [id number] 04 8mg Take 2 tablets by mouth daily. Take on Day 2 and Day 3 of each cycle. [facility] dexAMETHaso ne 4 mg tablet 2021-0 8-12 00:00: 00 Yes [id number] 04 8mg Take 2 tablets by mouth daily. Take on Day 2 and Day 3 of each cycle. [facility] dexAMETHaso ne 4 mg tablet 1-0 8-12 00:00: 00 Yes [id number] 04 8mg Take 2 tablets by mouth daily. Take on Day 2 and Day 3 of each cycle. [facility] dexAMETHaso ne 4 mg tablet 2020-0 8-12 00:00: 00 Yes [id number] 04 8mg Take 2 tablets by mouth daily. Take on Day 2 and Day 3 of each cycle. [facility] dexAMETHaso ne 4 mg tablet 2020-0 8-12 00:00: 00 Yes [id number] 04 8mg Take 2 tablets by mouth daily. Take on Day 2 and Day 3 of each cycle. [facility] dexAMETHaso ne 4 mg tablet 2020-0 8-12 00:00: 00 Yes [id number] 04 8mg Take 2 tablets by mouth daily. Take on Day 2 and Day 3 of each cycle. [facility] dexAMETHaso ne 4 mg tablet 2020-0 8-12 00:00: 00 Yes [id number] 04 8mg Take 2 tablets by mouth daily. Take on Day 2 and Day 3 of each cycle. [facility] dexAMETHaso ne 4 mg tablet 2020-0 8-12 00:00: 00 Yes [id number] 04 8mg Take 2 tablets by mouth daily. Take on Day 2 and Day 3 of each cycle. [facility] dexAMETHaso ne 4 mg tablet 2020-0 8-12 00:00: 00 Yes [id number] 04 8mg Take 2 tablets by mouth daily. Take on Day 2 and Day 3 of each cycle. [facility] dexAMETHaso ne 4 mg tablet 1-0 8-12 00:00: 00 Yes [id number] 04 8mg Take 2 tablets by mouth daily. Take on Day 2 and Day 3 of each cycle. [facility] dexAMETHaso ne 4 mg tablet 1-0 8-12 00:00: 00 Yes [id number] 04 8mg Take 2 tablets by mouth daily. Take on Day 2 and Day 3 of each cycle. [facility] dexAMETHaso ne 4 mg tablet 2021-0 8-12 00:00: 00 Yes [id number] 04 8mg Take 2 tablets by mouth daily. Take on Day 2 and Day 3 of each cycle. [facility] dexAMETHaso ne 4 mg tablet 1-0 8-12 00:00: 00 Yes [id number] 04 8mg Take 2 tablets by mouth daily. Take on Day 2 and Day 3 of each cycle. [facility] dexAMETHaso ne 4 mg tablet 1-0 8-12 00:00: 00 Yes [id number] 04 8mg Take 2 tablets by mouth daily. Take on Day 2 and Day 3 of each cycle. [facility] dexAMETHaso ne 4 mg tablet 2020-0 8-12 00:00: 00 Yes [id number] 04 8mg Take 2 tablets by mouth daily. Take on Day 2 and Day 3 of each cycle. [facility] dexAMETHaso ne 4 mg tablet 2020-0 8-12 00:00: 00 Yes [id number] 04 8mg Take 2 tablets by mouth daily. Take on Day 2 and Day 3 of each cycle. [facility] dexAMETHaso ne 4 mg tablet 2020-0 8-12 00:00: 00 Yes [id number] 04 8mg Take 2 tablets by mouth daily. Take on Day 2 and Day 3 of each cycle. [facility] dexAMETHaso ne 4 mg tablet 1-0 8-12 00:00: 00 Yes [id number] 04 8mg Take 2 tablets by mouth daily. Take on Day 2 and Day 3 of each cycle. [facility] dexAMETHaso ne 4 mg tablet 1-0 8-12 00:00: 00 Yes [id number] 04 8mg Take 2 tablets by mouth daily. Take on Day 2 and Day 3 of each cycle. [facility] dexAMETHaso ne 4 mg tablet 1-0 8-12 00:00: 00 Yes [id number] 04 8mg Take 2 tablets by mouth daily. Take on Day 2 and Day 3 of each cycle. [facility] dexAMETHaso ne 4 mg tablet 1-0 8-12 00:00: 00 Yes [id number] 04 8mg Take 2 tablets by mouth daily. Take on Day 2 and Day 3 of each cycle. [facility] dexAMETHaso ne 4 mg tablet 2021-0 8-12 00:00: 00 Yes [id number] 04 8mg Take 2 tablets by mouth daily. Take on Day 2 and Day 3 of each cycle. [facility] dexAMETHaso ne 4 mg tablet 2021-0 8-12 00:00: 00 Yes [id number] 04 8mg Take 2 tablets by mouth daily. Take on Day 2 and Day 3 of each cycle. [facility] dexAMETHaso ne 4 mg tablet 1-0 8-12 00:00: 00 Yes [id number] 04 8mg Take 2 tablets by mouth daily. Take on Day 2 and Day 3 of each cycle. [facility] dexAMETHaso ne 4 mg tablet 1-0 8-12 00:00: 00 Yes [id number] 04 8mg Take 2 tablets by mouth daily. Take on Day 2 and Day 3 of each cycle. [facility] dexAMETHaso ne 4 mg tablet 1-0 8-12 00:00: 00 Yes [id number] 04 8mg Take 2 tablets by mouth daily. Take on Day 2 and Day 3 of each cycle. [facility] dexAMETHaso ne 4 mg tablet 1-0 8-12 00:00: 00 Yes [id number] 04 8mg Take 2 tablets by mouth daily. Take on Day 2 and Day 3 of each cycle. [facility] dexAMETHaso ne 4 mg tablet 1-0 8-12 00:00: 00 Yes [id number] 04 8mg Take 2 tablets by mouth daily. Take on Day 2 and Day 3 of each cycle. [facility] dexAMETHaso ne 4 mg tablet 1-0 8-12 00:00: 00 Yes [id number] 04 8mg Take 2 tablets by mouth daily. Take on Day 2 and Day 3 of each cycle. [facility] dexAMETHaso ne 4 mg tablet 1-0 8-12 00:00: 00 Yes [id number] 04 8mg Take 2 tablets by mouth daily. Take on Day 2 and Day 3 of each cycle. [facility] dexAMETHaso ne 4 mg tablet 2021-0 8-12 00:00: 00 Yes [id number] 04 8mg Take 2 tablets by mouth daily. Take on Day 2 and Day 3 of each cycle. [facility] dexAMETHaso ne 4 mg tablet 2021-0 8-12 00:00: 00 Yes [id number] 04 8mg Take 2 tablets by mouth daily. Take on Day 2 and Day 3 of each cycle. [facility] dexAMETHaso ne 4 mg tablet 1-0 8-12 00:00: 00 Yes [id number] 04 8mg Take 2 tablets by mouth daily. Take on Day 2 and Day 3 of each cycle. [facility] dexAMETHaso ne 4 mg tablet 1-0 8-12 00:00: 00 Yes [id number] 04 8mg Take 2 tablets by mouth daily. Take on Day 2 and Day 3 of each cycle. [facility] dexAMETHaso ne 4 mg tablet 1-0 8-12 00:00: 00 Yes [id number] 04 8mg Take 2 tablets by mouth daily. Take on Day 2 and Day 3 of each cycle. [facility] dexAMETHaso ne 4 mg tablet 1-0 8-12 00:00: 00 Yes [id number] 04 8mg Take 2 tablets by mouth daily. Take on Day 2 and Day 3 of each cycle. [facility] dexAMETHaso ne 4 mg tablet 2021-0 8-12 00:00: 00 Yes [id number] 04 8mg Take 2 tablets by mouth daily. Take on Day 2 and Day 3 of each cycle. [facility] dexAMETHaso ne 4 mg tablet 1-0 8-12 00:00: 00 Yes [id number] 04 8mg Take 2 tablets by mouth daily. Take on Day 2 and Day 3 of each cycle. [facility] dexAMETHaso ne 4 mg tablet 1-0 8-12 00:00: 00 Yes [id number] 04 8mg Take 2 tablets by mouth daily. Take on Day 2 and Day 3 of each cycle. [facility] dexAMETHaso ne 4 mg tablet 2021-0 8-12 00:00: 00 Yes [id number] 04 8mg Take 2 tablets by mouth daily. Take on Day 2 and Day 3 of each cycle. [facility] dexAMETHaso ne 4 mg tablet 1-0 8-12 00:00: 00 Yes [id number] 04 8mg Take 2 tablets by mouth daily. Take on Day 2 and Day 3 of each cycle. [facility] dexAMETHaso ne 4 mg tablet 2021-0 8-12 00:00: 00 Yes [id number] 8mg Take 2 tablets by mouth daily. Take on Day 2 and Day 3 of each cycle. [facility] dexAMETHaso ne 4 mg tablet 1-0 8-12 00:00: 00 Yes [id number] 8mg Take 2 tablets by mouth daily. Take on Day 2 and Day 3 of each cycle. [facility] dexAMETHaso ne 4 mg tablet 1-0 8-12 00:00: 00 Yes [id number] 8mg Take 2 tablets by mouth daily. Take on Day 2 and Day 3 of each cycle. [facility] dexAMETHaso ne 4 mg tablet 1-0 8-12 00:00: 00 Yes [id number] 8mg Take 2 tablets by mouth daily. Take on Day 2 and Day 3 of each cycle. [facility] dexAMETHaso ne 4 mg tablet 1-0 8-12 00:00: 00 Yes [id number] 8mg Take 2 tablets by mouth daily. Take on Day 2 and Day 3 of each cycle. [facility] dexAMETHaso ne 4 mg tablet 1-0 8-12 00:00: 00 Yes [id number] 8mg Take 2 tablets by mouth daily. Take on Day 2 and Day 3 of each cycle. [facility] dexAMETHaso ne 4 mg tablet 1-0 8-12 00:00: 00 Yes [id number] 8mg Take 2 tablets by mouth daily. Take on Day 2 and Day 3 of each cycle. [facility] dexAMETHaso ne 4 mg tablet 2021-0 8-12 00:00: 00 Yes [id number] 8mg Take 2 tablets by mouth daily. Take on Day 2 and Day 3 of each cycle. [facility] dexAMETHaso ne 4 mg tablet 2021-0 8-12 00:00: 00 Yes [id number] 8mg Take 2 tablets by mouth daily. Take on Day 2 and Day 3 of each cycle. [facility] dexAMETHaso ne 4 mg tablet 2021-0 8-12 00:00: 00 Yes [id number] 8mg Take 2 tablets by mouth daily. Take on Day 2 and Day 3 of each cycle. [facility] dexAMETHaso ne 4 mg tablet 2021-0 8-12 00:00: 00 Yes [id number] 8mg Take 2 tablets by mouth daily. Take on Day 2 and Day 3 of each cycle. [facility] dexAMETHaso ne 4 mg tablet 1-0 8-12 00:00: 00 Yes [id number] 8mg Take 2 tablets by mouth daily. Take on Day 2 and Day 3 of each cycle. [facility] dexAMETHaso ne 4 mg tablet 1-0 8-12 00:00: 00 Yes [id number] 8mg Take 2 tablets by mouth daily. Take on Day 2 and Day 3 of each cycle. [facility] dexAMETHaso ne 4 mg tablet 1-0 8-12 00:00: 00 Yes [id number] 8mg Take 2 tablets by mouth daily. Take on Day 2 and Day 3 of each cycle. [facility] dexAMETHaso ne 4 mg tablet 1-0 8-12 00:00: 00 Yes [id number] 8mg Take 2 tablets by mouth daily. Take on Day 2 and Day 3 of each cycle. [facility] dexAMETHaso ne 4 mg tablet 1-0 8-12 00:00: 00 Yes [id number] 8mg Take 2 tablets by mouth daily. Take on Day 2 and Day 3 of each cycle. [facility] dexAMETHaso ne 4 mg tablet 1-0 8-12 00:00: 00 Yes [id number] 8mg Take 2 tablets by mouth daily. Take on Day 2 and Day 3 of each cycle. [facility] dexAMETHaso ne 4 mg tablet 2021-0 8-12 00:00: 00 Yes [id number] 8mg Take 2 tablets by mouth daily. Take on Day 2 and Day 3 of each cycle. [facility] dexAMETHaso ne 4 mg tablet 2021-0 8-12 00:00: 00 Yes [id number] 8mg Take 2 tablets by mouth daily. Take on Day 2 and Day 3 of each cycle. [facility] dexAMETHaso ne 4 mg tablet 1-0 8-12 00:00: 00 Yes [id number] 8mg Take 2 tablets by mouth daily. Take on Day 2 and Day 3 of each cycle. [facility] dexAMETHaso ne 4 mg tablet 1-0 8-12 00:00: 00 Yes [id number] 8mg Take 2 tablets by mouth daily. Take on Day 2 and Day 3 of each cycle. [facility] dexAMETHaso ne 4 mg tablet 1-0 8-12 00:00: 00 Yes [id number] 8mg Take 2 tablets by mouth daily. Take on Day 2 and Day 3 of each cycle. [facility] dexAMETHaso ne 4 mg tablet 1-0 8-12 00:00: 00 Yes [id number] 8mg Take 2 tablets by mouth daily. Take on Day 2 and Day 3 of each cycle. [facility] dexAMETHaso ne 4 mg tablet 1-0 8-12 00:00: 00 Yes [id number] 8mg Take 2 tablets by mouth daily. Take on Day 2 and Day 3 of each cycle. [facility] dexAMETHaso ne 4 mg tablet 1-0 8-12 00:00: 00 Yes [id number] 8mg Take 2 tablets by mouth daily. Take on Day 2 and Day 3 of each cycle. [facility] dexAMETHaso ne 4 mg tablet 1-0 8-12 00:00: 00 Yes [id number] 8mg Take 2 tablets by mouth daily. Take on Day 2 and Day 3 of each cycle. [facility] dexAMETHaso ne 4 mg tablet 1-0 8-12 00:00: 00 Yes [id number] 8mg Take 2 tablets by mouth daily. Take on Day 2 and Day 3 of each cycle. [facility] dexAMETHaso ne 4 mg tablet 2021-0 8-12 00:00: 00 Yes [id number] 8mg Take 2 tablets by mouth daily. Take on Day 2 and Day 3 of each cycle. [facility] dexAMETHaso ne 4 mg tablet 2021-0 8-12 00:00: 00 Yes [id number] 8mg Take 2 tablets by mouth daily. Take on Day 2 and Day 3 of each cycle. [facility] dexAMETHaso ne 4 mg tablet 2021-0 8-12 00:00: 00 Yes [id number] 8mg Take 2 tablets by mouth daily. Take on Day 2 and Day 3 of each cycle. [facility] dexAMETHaso ne 4 mg tablet 2021-0 8-12 00:00: 00 Yes [id number] 8mg Take 2 tablets by mouth daily. Take on Day 2 and Day 3 of each cycle. [facility] dexAMETHaso ne 4 mg tablet 1-0 8-12 00:00: 00 Yes [id number] 8mg Take 2 tablets by mouth daily. Take on Day 2 and Day 3 of each cycle. [facility] dexAMETHaso ne 4 mg tablet 1-0 8-12 00:00: 00 Yes [id number] 8mg Take 2 tablets by mouth daily. Take on Day 2 and Day 3 of each cycle. [facility] dexAMETHaso ne 4 mg tablet 1-0 8-12 00:00: 00 Yes [id number] 8mg Take 2 tablets by mouth daily. Take on Day 2 and Day 3 of each cycle. [facility] dexAMETHaso ne 4 mg tablet 1-0 8-12 00:00: 00 Yes [id number] 8mg Take 2 tablets by mouth daily. Take on Day 2 and Day 3 of each cycle. [facility] dexAMETHaso ne 4 mg tablet 1-0 8-12 00:00: 00 Yes [id number] 8mg Take 2 tablets by mouth daily. Take on Day 2 and Day 3 of each cycle. [facility] dexAMETHaso ne 4 mg tablet 2021-0 8-12 00:00: 00 Yes [id number] 8mg Take 2 tablets by mouth daily. Take on Day 2 and Day 3 of each cycle. [facility] dexAMETHaso ne 4 mg tablet 2021-0 8-12 00:00: 00 Yes [id number] 8mg Take 2 tablets by mouth daily. Take on Day 2 and Day 3 of each cycle. [facility] dexAMETHaso ne 4 mg tablet 2021-0 8-12 00:00: 00 Yes [id number] 8mg Take 2 tablets by mouth daily. Take on Day 2 and Day 3 of each cycle. [facility] dexAMETHaso ne 4 mg tablet 1-0 8-12 00:00: 00 Yes [id number] 8mg Take 2 tablets by mouth daily. Take on Day 2 and Day 3 of each cycle. [facility] dexAMETHaso ne 4 mg tablet 1-0 8-12 00:00: 00 Yes [id number] 8mg Take 2 tablets by mouth daily. Take on Day 2 and Day 3 of each cycle. [facility] dexAMETHaso ne 4 mg tablet 1-0 8-12 00:00: 00 Yes [id number] 8mg Take 2 tablets by mouth daily. Take on Day 2 and Day 3 of each cycle. [facility] dexAMETHaso ne 4 mg tablet 1-0 8-12 00:00: 00 Yes [id number] 8mg Take 2 tablets by mouth daily. Take on Day 2 and Day 3 of each cycle. [facility] dexAMETHaso ne 4 mg tablet 2021-0 8-12 00:00: 00 Yes [id number] 8mg Take 2 tablets by mouth daily. Take on Day 2 and Day 3 of each cycle. [facility] dexAMETHaso ne 4 mg tablet 1-0 8-12 00:00: 00 Yes [id number] 8mg Take 2 tablets by mouth daily. Take on Day 2 and Day 3 of each cycle. [facility] dexAMETHaso ne 4 mg tablet 1-0 8-12 00:00: 00 Yes [id number] 8mg Take 2 tablets by mouth daily. Take on Day 2 and Day 3 of each cycle. [facility] dexAMETHaso ne 4 mg tablet 2021-0 8-12 00:00: 00 Yes [id number] 8mg Take 2 tablets by mouth daily. Take on Day 2 and Day 3 of each cycle. [facility] dex[facility]ETHaso ne 4 mg tablet 1-0 8-12 00:00: 00 Yes [id number] 8mg Take 2 tablets by mouth daily. Take on Day 2 and Day 3 of each cycle. [facility] dexAMETHaso ne 4 mg tablet 1-0 8-12 00:00: 00 Yes [id number] 8mg Take 2 tablets by mouth daily. Take on Day 2 and Day 3 of each cycle. [facility] dexAMETHaso ne 4 mg tablet 1-0 8-12 00:00: 00 Yes [id number] 8mg Take 2 tablets by mouth daily. Take on Day 2 and Day 3 of each cycle. [facility] dexAMETHaso ne 4 mg tablet 1-0 8-12 00:00: 00 Yes [id number] 8mg Take 2 tablets by mouth daily. Take on Day 2 and Day 3 of each cycle. [facility] dexAMETHaso ne 4 mg tablet 1-0 8-12 00:00: 00 Yes [id number] 8mg Take 2 tablets by mouth daily. Take on Day 2 and Day 3 of each cycle. [facility] dex[facility]ETHaso ne 4 mg tablet 1-0 8-12 00:00: 00 Yes [id number] 8mg Take 2 tablets by mouth daily. Take on Day 2 and Day 3 of each cycle. [facility] dexAMETHaso ne 4 mg tablet 1-0 8-12 00:00: 00 Yes [id number] 8mg Take 2 tablets by mouth daily. Take on Day 2 and Day 3 of each cycle. [facility] dexAMETHaso ne 4 mg tablet 1-0 8-12 00:00: 00 Yes [id number] 8mg Take 2 tablets by mouth daily. Take on Day 2 and Day 3 of each cycle. [facility] dexAMETHaso ne 4 mg tablet 1-0 8-12 00:00: 00 Yes [id number] 8mg Take 2 tablets by mouth daily. Take on Day 2 and Day 3 of each cycle. [facility] dex[facility]ETHaso ne 4 mg tablet 2021-0 8-12 00:00: 00 Yes [id number] 8mg Take 2 tablets by mouth daily. Take on Day 2 and Day 3 of each cycle. [facility] dex[facility]ETH[facility] ne 4 mg tablet 1-0 8-12 00:00: 00 Yes [id number] 8mg Take 2 tablets by mouth daily. Take on Day 2 and Day 3 of each cycle. [facility] dex[facility]ETHas[facility] ne 4 mg tablet 1-0 8-12 00:00: 00 Yes [id number] 8mg Take 2 tablets by mouth daily. Take on Day 2 and Day 3 of each cycle. [facility] dex[facility]ETHaso ne 4 mg tablet 1-0 8-12 00:00: 00 Yes [id number] 8mg Take 2 tablets by mouth daily. Take on Day 2 and Day 3 of each cycle. [facility] dex[facility]ETHaso ne 4 mg tablet 1-0 8-12 00:00: 00 Yes [id number] 8mg Take 2 tablets by mouth daily. Take on Day 2 and Day 3 of each cycle. [facility] dex[facility]ETH[facility] ne 4 mg tablet 1-0 8-12 00:00: 00 Yes [id number] 8mg Take 2 tablets by mouth daily. Take on Day 2 and Day 3 of each cycle. [facility] dex[facility]ETHaso ne 4 mg tablet 1-0 8-12 00:00: 00 Yes [id number] 8mg Take 2 tablets by mouth daily. Take on Day 2 and Day 3 of each cycle. [facility] dex[facility]ETH[facility] ne 4 mg tablet 1-0 8-12 00:00: 00 Yes [id number] 8mg Take 2 tablets by mouth daily. Take on Day 2 and Day 3 of each cycle. [facility] dex[facility]ETH[facility] ne 4 mg tablet 1-0 8-12 00:00: 00 Yes [id number] 8mg Take 2 tablets by mouth daily. Take on Day 2 and Day 3 of each cycle. [facility] dex[facility]ETH[facility] ne 4 mg tablet 2021-0 8-12 00:00: 00 Yes [id number] 8mg Take 2 tablets by mouth daily. Take on Day 2 and Day 3 of each cycle. [facility] dex[facility] ne 4 mg tablet 2021-0 8-12 00:00: 00 Yes [id number] 8mg Take 2 tablets by mouth daily. Take on Day 2 and Day 3 of each cycle. [facility] dex[facility] ne 4 mg tablet 2021-0 8-12 00:00: 00 Yes [id number] 8mg Take 2 tablets by mouth daily. Take on Day 2 and Day 3 of each cycle. [facility] dex[facility]ETH[facility] ne 4 mg tablet 2021-0 8-12 00:00: 00 Yes [id number] 8mg Take 2 tablets by mouth daily. Take on Day 2 and Day 3 of each cycle. [facility] dex[facility]ETH[facility] ne 4 mg tablet 1-0 8-12 00:00: 00 Yes [id number] 8mg Take 2 tablets by mouth daily. Take on Day 2 and Day 3 of each cycle. [facility] ne 4 mg tablet 1-0 8-12 00:00: 00 Yes [id number] 8mg Take 2 tablets by mouth daily. Take on Day 2 and Day 3 of each cycle. [facility] dex[facility] ne 4 mg tablet 1-0 8-12 00:00: 00 Yes [id number] 8mg Take 2 tablets by mouth daily. Take on Day 2 and Day 3 of each cycle. [facility] dex[facility] ne 4 mg tablet 2021-0 8-12 00:00: 00 Yes [id number] 8mg Take 2 tablets by mouth daily. Take on Day 2 and Day 3 of each cycle. [facility] ne 4 mg tablet 1-0 8-12 00:00: 00 Yes [id number] 8mg Take 2 tablets by mouth daily. Take on Day 2 and Day 3 of each cycle. [facility] ne 4 mg tablet 1-0 8-12 00:00: 00 Yes [id number] 8mg Take 2 tablets by mouth daily. Take on Day 2 and Day 3 of each cycle. [facility] ne 4 mg tablet 2021-0 8-12 00:00: 00 Yes [id number] 8mg Take 2 tablets by mouth daily. Take on Day 2 and Day 3 of each cycle. [facility] ne 4 mg tablet 1-0 8-12 00:00: 00 Yes [id number] 8mg Take 2 tablets by mouth daily. Take on Day 2 and Day 3 of each cycle. [facility] ne 4 mg tablet 2021-0 8-12 00:00: 00 Yes [id number] 8mg Take 2 tablets by mouth daily. Take on Day 2 and Day 3 of each cycle. [facility] ne 4 mg tablet 1-0 8-12 00:00: 00 Yes [id number] 8mg Take 2 tablets by mouth daily. Take on Day 2 and Day 3 of each cycle. [facility] ne 4 mg tablet 1-0 8-12 00:00: 00 Yes [id number] 8mg Take 2 tablets by mouth daily. Take on Day 2 and Day 3 of each cycle. [facility] ne 4 mg tablet 1-0 8-12 00:00: 00 Yes [id number] 8mg Take 2 tablets by mouth daily. Take on Day 2 and Day 3 of each cycle. [facility] ne 4 mg tablet 1-0 8-12 00:00: 00 Yes [id number] 8mg Take 2 tablets by mouth daily. Take on Day 2 and Day 3 of each cycle. [facility] ne 4 mg tablet 1-0 8-12 00:00: 00 Yes [id number] 8mg Take 2 tablets by mouth daily. Take on Day 2 and Day 3 of each cycle. [facility] dex[facility] ne 4 mg tablet 1-0 8-12 00:00: 00 Yes [id number] 8mg Take 2 tablets by mouth daily. Take on Day 2 and Day 3 of each cycle. [facility] ne 4 mg tablet 2021-0 8-12 00:00: 00 Yes [id number] 8mg Take 2 tablets by mouth daily. Take on Day 2 and Day 3 of each cycle. [facility] ne 4 mg tablet 1-0 8-12 00:00: 00 Yes [id number] 8mg Take 2 tablets by mouth daily. Take on Day 2 and Day 3 of each cycle. [facility] dex[facility]ETH[facility] ne 4 mg tablet 2021-0 8-12 00:00: 00 Yes [id number] 8mg Take 2 tablets by mouth daily. Take on Day 2 and Day 3 of each cycle. [facility] dex[facility]ETH[facility] ne 4 mg tablet 1-0 8-12 00:00: 00 Yes [id number] 8mg Take 2 tablets by mouth daily. Take on Day 2 and Day 3 of each cycle. [facility] dex[facility]ETH[facility] ne 4 mg tablet 1-0 8-12 00:00: 00 Yes [id number] 8mg Take 2 tablets by mouth daily. Take on Day 2 and Day 3 of each cycle. [facility] ne 4 mg tablet 1-0 8-12 00:00: 00 Yes [id number] 8mg Take 2 tablets by mouth daily. Take on Day 2 and Day 3 of each cycle. [facility] dex[facility]ETH[facility] ne 4 mg tablet 1-0 8-12 00:00: 00 Yes [id number] 8mg Take 2 tablets by mouth daily. Take on Day 2 and Day 3 of each cycle. [facility] dex[facility]ETH[facility] ne 4 mg tablet 1-0 8-12 00:00: 00 Yes [id number] 8mg Take 2 tablets by mouth daily. Take on Day 2 and Day 3 of each cycle. [facility] dex[facility]ETHaso ne 4 mg tablet 1-0 8-12 00:00: 00 Yes [id number] 8mg Take 2 tablets by mouth daily. Take on Day 2 and Day 3 of each cycle. [facility] dex[facility]ETH[facility]o ne 4 mg tablet 1-0 8-12 00:00: 00 Yes [id number] 8mg Take 2 tablets by mouth daily. Take on Day 2 and Day 3 of each cycle. [facility] dex[facility]ETH[facility] ne 4 mg tablet 2021-0 8-12 00:00: 00 Yes [id number] 8mg Take 2 tablets by mouth daily. Take on Day 2 and Day 3 of each cycle. [facility] dex[facility]ETH[facility] ne 4 mg tablet 1-0 8-12 00:00: 00 Yes [id number] 8mg Take 2 tablets by mouth daily. Take on Day 2 and Day 3 of each cycle. [facility] dex[facility]ETH[facility] ne 4 mg tablet 2021-0 8-12 00:00: 00 Yes [id number] 8mg Take 2 tablets by mouth daily. Take on Day 2 and Day 3 of each cycle. [facility] dex[facility]ETHaso ne 4 mg tablet 1-0 8-12 00:00: 00 Yes [id number] 8mg Take 2 tablets by mouth daily. Take on Day 2 and Day 3 of each cycle. [facility] dex[facility]ETHaso ne 4 mg tablet 1-0 8-12 00:00: 00 Yes [id number] 8mg Take 2 tablets by mouth daily. Take on Day 2 and Day 3 of each cycle. [facility] dex[facility]ETHaso ne 4 mg tablet 1-0 8-12 00:00: 00 Yes [id number] 8mg Take 2 tablets by mouth daily. Take on Day 2 and Day 3 of each cycle. [facility] dex[facility]ETHaso ne 4 mg tablet 1-0 8-12 00:00: 00 Yes [id number] 8mg Take 2 tablets by mouth daily. Take on Day 2 and Day 3 of each cycle. [facility] dex[facility]ETHaso ne 4 mg tablet 1-0 8-12 00:00: 00 Yes [id number] 8mg Take 2 tablets by mouth daily. Take on Day 2 and Day 3 of each cycle. [facility] dexAMETHaso ne 4 mg tablet 1-0 8-12 00:00: 00 Yes [id number] 8mg Take 2 tablets by mouth daily. Take on Day 2 and Day 3 of each cycle. [facility] dex[facility]ETHaso ne 4 mg tablet 1-0 8-12 00:00: 00 Yes [id number] 8mg Take 2 tablets by mouth daily. Take on Day 2 and Day 3 of each cycle. [facility] dexAMETHaso ne 4 mg tablet 2021-0 8-12 00:00: 00 Yes [id number] 8mg Take 2 tablets by mouth daily. Take on Day 2 and Day 3 of each cycle. [facility] dex[facility]ETHaso ne 4 mg tablet 2021-0 8-12 00:00: 00 Yes [id number] 8mg Take 2 tablets by mouth daily. Take on Day 2 and Day 3 of each cycle. [facility] dexAMETHaso ne 4 mg tablet 2021-0 8-12 00:00: 00 Yes [id number] 8mg Take 2 tablets by mouth daily. Take on Day 2 and Day 3 of each cycle. [facility] dex[facility]ETHaso ne 4 mg tablet 1-0 8-12 00:00: 00 Yes [id number] 8mg Take 2 tablets by mouth daily. Take on Day 2 and Day 3 of each cycle. [facility] dexAMETHaso ne 4 mg tablet 1-0 8-12 00:00: 00 Yes [id number] 8mg Take 2 tablets by mouth daily. Take on Day 2 and Day 3 of each cycle. [facility] dexAMETHaso ne 4 mg tablet 1-0 8-12 00:00: 00 Yes [id number] 8mg Take 2 tablets by mouth daily. Take on Day 2 and Day 3 of each cycle. [facility] dex[facility]ETHaso ne 4 mg tablet 1-0 8-12 00:00: 00 Yes [id number] 8mg Take 2 tablets by mouth daily. Take on Day 2 and Day 3 of each cycle. [facility] dexAMETHaso ne 4 mg tablet 1-0 8-12 00:00: 00 Yes [id number] 8mg Take 2 tablets by mouth daily. Take on Day 2 and Day 3 of each cycle. [facility] dex[facility]ETHas[facility] ne 4 mg tablet 1-0 8-12 00:00: 00 Yes [id number] 8mg Take 2 tablets by mouth daily. Take on Day 2 and Day 3 of each cycle. [facility] dex[facility]ETHaso ne 4 mg tablet 2021-0 8-12 00:00: 00 Yes [id number] 8mg Take 2 tablets by mouth daily. Take on Day 2 and Day 3 of each cycle. [facility] dex[facility]ETHaso ne 4 mg tablet 2021-0 8-12 00:00: 00 Yes [id number] 8mg Take 2 tablets by mouth daily. Take on Day 2 and Day 3 of each cycle. [facility] dex[facility]ETHaso ne 4 mg tablet 2021-0 8-12 00:00: 00 Yes [id number] 8mg Take 2 tablets by mouth daily. Take on Day 2 and Day 3 of each cycle. [facility] dex[facility]ETH[facility] ne 4 mg tablet 1-0 8-12 00:00: 00 Yes [id number] 8mg Take 2 tablets by mouth daily. Take on Day 2 and Day 3 of each cycle. [facility] dex[facility]ETHaso ne 4 mg tablet 1-0 8-12 00:00: 00 Yes [id number] 8mg Take 2 tablets by mouth daily. Take on Day 2 and Day 3 of each cycle. [facility] dex[facility]ETHas[facility] ne 4 mg tablet 1-0 8-12 00:00: 00 Yes [id number] 8mg Take 2 tablets by mouth daily. Take on Day 2 and Day 3 of each cycle. [facility] dex[facility]ETHas[facility] ne 4 mg tablet 1-0 8-12 00:00: 00 Yes [id number] 8mg Take 2 tablets by mouth daily. Take on Day 2 and Day 3 of each cycle. [facility] dex[facility]ETHaso ne 4 mg tablet 1-0 8-12 00:00: 00 Yes [id number] 8mg Take 2 tablets by mouth daily. Take on Day 2 and Day 3 of each cycle. [facility] dex[facility]ETHaso ne 4 mg tablet 1-0 8-12 00:00: 00 Yes [id number] Take 2 tablets by mouth daily. Take on Day 2 and Day 3 of each cycle. [facility] dex[facility]ETHas[facility] ne 4 mg tablet 1-0 8-12 00:00: 00 Yes [id number] 8mg Take 2 tablets by mouth daily. Take on Day 2 and Day 3 of each cycle. [facility] dex[facility]ETHaso ne 4 mg tablet 2021-0 8-12 00:00: 00 Yes [id number] 8mg Take 2 tablets by mouth daily. Take on Day 2 and Day 3 of each cycle. [facility] dex[facility]ETH[facility] ne 4 mg tablet 1-0 8-12 00:00: 00 Yes [id number] 8mg Take 2 tablets by mouth daily. Take on Day 2 and Day 3 of each cycle. [facility] dex[facility]ETHas[facility] ne 4 mg tablet 2021-0 8-12 00:00: 00 Yes [id number] 8mg Take 2 tablets by mouth daily. Take on Day 2 and Day 3 of each cycle. [facility] dex[facility]ETHaso ne 4 mg tablet 1-0 8-12 00:00: 00 Yes [id number] 8mg Take 2 tablets by mouth daily. Take on Day 2 and Day 3 of each cycle. [facility] dex[facility]ETH[facility] ne 4 mg tablet 1-0 8-12 00:00: 00 Yes [id number] 8mg Take 2 tablets by mouth daily. Take on Day 2 and Day 3 of each cycle. [facility] dex[facility]ETH[facility] ne 4 mg tablet 1-0 8-12 00:00: 00 Yes [id number] 8mg Take 2 tablets by mouth daily. Take on Day 2 and Day 3 of each cycle. [facility] dex[facility]ETHas[facility] ne 4 mg tablet 1-0 8-12 00:00: 00 Yes [id number] 8mg Take 2 tablets by mouth daily. Take on Day 2 and Day 3 of each cycle. [facility] dex[facility]ETHas[facility] ne 4 mg tablet 1-0 8-12 00:00: 00 Yes [id number] 8mg Take 2 tablets by mouth daily. Take on Day 2 and Day 3 of each cycle. [facility] dex[facility]ETHas[facility] ne 4 mg tablet 1-0 8-12 00:00: 00 Yes [id number] 8mg Take 2 tablets by mouth daily. Take on Day 2 and Day 3 of each cycle. [facility] dexAMETHaso ne 4 mg tablet 2021-0 8-12 00:00: 00 2023- 10-13 00:00 :00 No [id number] 8mg Take 2 tablets by mouth daily. Take on Day 2 and Day 3 of each cycle. [facility] mg tablet 03-08 00:00: 00 Yes [id number] 20mg Take 1 tablet by mouth 2 (two) times daily. [facility] magnesium oxide 40 mg/mL oral suspension 03-08 00:00: 00 Yes [id number] 400mg Take 10 mL by mouth daily. [facility] mg tablet 03-08 00:00: 00 Yes [id number] 20mg Take 1 tablet by mouth 2 (two) times daily. [facility] magnesium oxide 40 mg/mL oral suspension 03-08 00:00: 00 Yes [id number] 400mg Take 10 mL by mouth daily. [facility] famotidine 20 mg tablet 03-08 00:00: 00 Yes [id number] 20mg Take 1 tablet by mouth 2 (two) times daily. [facility] magnesium oxide 40 mg/mL oral suspension 03-08 00:00: 00 Yes [id number] 400mg Take 10 mL by mouth daily. [facility] famotidine 20 mg tablet 03-08 00:00: 00 Yes [id number] 20mg Take 1 tablet by mouth 2 (two) times daily. [facility] magnesium oxide 40 mg/mL oral suspension 03-08 00:00: 00 Yes [id number] 400mg Take 10 mL by mouth daily. [facility] famotidine 20 mg tablet 03-08 00:00: 00 Yes [id number] 20mg Take 1 tablet by mouth 2 (two) times daily. [facility] magnesium oxide 40 mg/mL oral suspension 03-08 00:00: 00 Yes [id number] 400mg Take 10 mL by mouth daily. [facility] famotidine 20 mg tablet 03-08 00:00: 00 Yes [id number] 20mg Take 1 tablet by mouth 2 (two) times daily. [facility] magnesium oxide 40 mg/mL oral suspension 03-08 00:00: 00 Yes [id number] 400mg Take 10 mL by mouth daily. [facility] famotidine 20 mg tablet 03-08 00:00: 00 Yes [id number] 20mg Take 1 tablet by mouth 2 (two) times daily. [facility] magnesium oxide 40 mg/mL oral suspension 03-08 00:00: 00 Yes [id number] 400mg Take 10 mL by mouth daily. [facility] famotidine 20 mg tablet 03-08 00:00: 00 Yes [id number] 20mg Take 1 tablet by mouth 2 (two) times daily. [facility] magnesium oxide 40 mg/mL oral suspension 03-08 00:00: 00 Yes [id number] 400mg Take 10 mL by mouth daily. [facility] famotidine 20 mg tablet 03-08 00:00: 00 Yes [id number] 20mg Take 1 tablet by mouth 2 (two) times daily. [facility] magnesium oxide 40 mg/mL oral suspension 03-08 00:00: 00 Yes [id number] 400mg Take 10 mL by mouth daily. [facility] famotidine 20 mg tablet 03-08 00:00: 00 Yes [id number] 20mg Take 1 tablet by mouth 2 (two) times daily. [facility] magnesium oxide 40 mg/mL oral suspension 03-08 00:00: 00 Yes [id number] 400mg Take 10 mL by mouth daily. [facility] famotidine 20 mg tablet 03-08 00:00: 00 Yes [id number] 20mg Take 1 tablet by mouth 2 (two) times daily. [facility] magnesium oxide 40 mg/mL oral suspension 03-08 00:00: 00 Yes [id number] 400mg Take 10 mL by mouth daily. [facility] famotidine 20 mg tablet 03-08 00:00: 00 Yes [id number] 20mg Take 1 tablet by mouth 2 (two) times daily. [facility] magnesium oxide 40 mg/mL oral suspension 03-08 00:00: 00 Yes [id number] 400mg Take 10 mL by mouth daily. [facility] famotidine 20 mg tablet 03-08 00:00: 00 Yes [id number] 20mg Take 1 tablet by mouth 2 (two) times daily. [facility] magnesium oxide 40 mg/mL oral suspension 03-08 00:00: 00 Yes [id number] 400mg Take 10 mL by mouth daily. [facility] famotidine 20 mg tablet 03-08 00:00: 00 Yes [id number] 20mg Take 1 tablet by mouth 2 (two) times daily. [facility] magnesium oxide 40 mg/mL oral suspension 03-08 00:00: 00 Yes [id number] 400mg Take 10 mL by mouth daily. [facility] famotidine 20 mg tablet 03-08 00:00: 00 Yes [id number] 20mg Take 1 tablet by mouth 2 (two) times daily. [facility] magnesium oxide 40 mg/mL oral suspension 03-08 00:00: 00 Yes [id number] 400mg Take 10 mL by mouth daily. [facility] famotidine 20 mg tablet 03-08 00:00: 00 Yes [id number] 20mg Take 1 tablet by mouth 2 (two) times daily. [facility] magnesium oxide 40 mg/mL oral suspension 03-08 00:00: 00 Yes [id number] 400mg Take 10 mL by mouth daily. [facility] famotidine 20 mg tablet 03-08 00:00: 00 Yes [id number] 20mg Take 1 tablet by mouth 2 (two) times daily. [facility] magnesium oxide 40 mg/mL oral suspension 03-08 00:00: 00 Yes [id number] 400mg Take 10 mL by mouth daily. [facility] famotidine 20 mg tablet 03-08 00:00: 00 Yes [id number] 20mg Take 1 tablet by mouth 2 (two) times daily. [facility] magnesium oxide 40 mg/mL oral suspension 03-08 00:00: 00 Yes [id number] 400mg Take 10 mL by mouth daily. [facility] 20 mg tablet 03-08 00:00: 00 Yes [id number] 20mg Take 1 tablet by mouth 2 (two) times daily. [facility] magnesium oxide 40 mg/mL oral suspension 03-08 00:00: 00 Yes [id number] 400mg Take 10 mL by mouth daily. [facility] famotidine 20 mg tablet 03-08 00:00: 00 Yes [id number] 20mg Take 1 tablet by mouth 2 (two) times daily. [facility] magnesium oxide 40 mg/mL oral suspension 03-08 00:00: 00 Yes [id number] 400mg Take 10 mL by mouth daily. [facility] famotidine 20 mg tablet 03-08 00:00: 00 Yes [id number] 20mg Take 1 tablet by mouth 2 (two) times daily. [facility] magnesium oxide 40 mg/mL oral suspension 03-08 00:00: 00 Yes [id number] 400mg Take 10 mL by mouth daily. [facility] famotidine 20 mg tablet 03-08 00:00: 00 Yes [id number] 20mg Take 1 tablet by mouth 2 (two) times daily. [facility] magnesium oxide 40 mg/mL oral suspension 03-08 00:00: 00 Yes [id number] 400mg Take 10 mL by mouth daily. [facility] famotidine 20 mg tablet 03-08 00:00: 00 Yes [id number] 20mg Take 1 tablet by mouth 2 (two) times daily. [facility] magnesium oxide 40 mg/mL oral suspension 03-08 00:00: 00 Yes [id number] 400mg Take 10 mL by mouth daily. [facility] famotidine 20 mg tablet 03-08 00:00: 00 Yes [id number] 20mg Take 1 tablet by mouth 2 (two) times daily. [facility] magnesium oxide 40 mg/mL oral suspension 03-08 00:00: 00 Yes [id number] 400mg Take 10 mL by mouth daily. [facility] famotidine 20 mg tablet 03-08 00:00: 00 Yes [id number] 20mg Take 1 tablet by mouth 2 (two) times daily. [facility] magnesium oxide 40 mg/mL oral suspension 03-08 00:00: 00 Yes [id number] 400mg Take 10 mL by mouth daily. [facility] famotidine 20 mg tablet 03-08 00:00: 00 Yes [id number] 20mg Take 1 tablet by mouth 2 (two) times daily. [facility] magnesium oxide 40 mg/mL oral suspension 03-08 00:00: 00 Yes [id number] 400mg Take 10 mL by mouth daily. [facility] famotidine 20 mg tablet 03-08 00:00: 00 Yes [id number] 20mg Take 1 tablet by mouth 2 (two) times daily. [facility] magnesium oxide 40 mg/mL oral suspension 03-08 00:00: 00 Yes [id number] 400mg Take 10 mL by mouth daily. [facility] famotidine 20 mg tablet 03-08 00:00: 00 Yes [id number] 20mg Take 1 tablet by mouth 2 (two) times daily. [facility] [facility]/mL oral suspension 03-08 00:00: 00 Yes [id number] 400mg Take 10 mL by mouth daily. [facility] famotidine 20 mg tablet 03-08 00:00: 00 Yes [id number] 20mg Take 1 tablet by mouth 2 (two) times daily. [facility] magnesium oxide 40 mg/mL oral suspension 03-08 00:00: 00 Yes [id number] 400mg Take 10 mL by mouth daily. [facility] famotidine 20 mg tablet 03-08 00:00: 00 Yes [id number] 20mg Take 1 tablet by mouth 2 (two) times daily. [facility] magnesium oxide 40 mg/mL oral suspension 03-08 00:00: 00 Yes [id number] 400mg Take 10 mL by mouth daily. [facility] famotidine 20 mg tablet 03-08 00:00: 00 Yes [id number] 20mg Take 1 tablet by mouth 2 (two) times daily. [facility] magnesium oxide 40 mg/mL oral suspension 03-08 00:00: 00 Yes [id number] 400mg Take 10 mL by mouth daily. [facility] famotidine 20 mg tablet 03-08 00:00: 00 Yes [id number] 20mg Take 1 tablet by mouth 2 (two) times daily. [facility] magnesium oxide 40 mg/mL oral suspension 03-08 00:00: 00 Yes [id number] 400mg Take 10 mL by mouth daily. [facility] famotidine 20 mg tablet 03-08 00:00: 00 Yes [id number] 20mg Take 1 tablet by mouth 2 (two) times daily. [facility] magnesium oxide 40 mg/mL oral suspension 03-08 00:00: 00 Yes [id number] 400mg Take 10 mL by mouth daily. [facility] famotidine 20 mg tablet 03-08 00:00: 00 Yes [id number] 20mg Take 1 tablet by mouth 2 (two) times daily. [facility] magnesium oxide 40 mg/mL oral suspension 03-08 00:00: 00 Yes [id number] 400mg Take 10 mL by mouth daily. [facility] famotidine 20 mg tablet 03-08 00:00: 00 Yes [id number] 20mg Take 1 tablet by mouth 2 (two) times daily. [facility] magnesium oxide 40 mg/mL oral suspension 03-08 00:00: 00 Yes [id number] 400mg Take 10 mL by mouth daily. [facility] famotidine 20 mg tablet 03-08 00:00: 00 Yes [id number] 20mg Take 1 tablet by mouth 2 (two) times daily. [facility] magnesium oxide 40 mg/mL oral suspension 03-08 00:00: 00 Yes [id number] 400mg Take 10 mL by mouth daily. [facility] famotidine 20 mg tablet 03-08 00:00: 00 Yes [id number] 20mg Take 1 tablet by mouth 2 (two) times daily. [facility] magnesium oxide 40 mg/mL oral suspension 03-08 00:00: 00 Yes [id number] 400mg Take 10 mL by mouth daily. [facility] famotidine 20 mg tablet 03-08 00:00: 00 Yes [id number] 20mg Take 1 tablet by mouth 2 (two) times daily. [facility] magnesium oxide 40 mg/mL oral suspension 03-08 00:00: 00 Yes [id number] 400mg Take 10 mL by mouth daily. [facility] famotidine 20 mg tablet 03-08 00:00: 00 Yes [id number] 20mg Take 1 tablet by mouth 2 (two) times daily. [facility] magnesium oxide 40 mg/mL oral suspension 03-08 00:00: 00 Yes [id number] 400mg Take 10 mL by mouth daily. [facility] famotidine 20 mg tablet 03-08 00:00: 00 Yes [id number] 20mg Take 1 tablet by mouth 2 (two) times daily. [facility] magnesium oxide 40 mg/mL oral suspension 03-08 00:00: 00 Yes [id number] 400mg Take 10 mL by mouth daily. [facility] famotidine 20 mg tablet 03-08 00:00: 00 Yes [id number] 20mg Take 1 tablet by mouth 2 (two) times daily. [facility] magnesium oxide 40 mg/mL oral suspension 03-08 00:00: 00 Yes [id number] 400mg Take 10 mL by mouth daily. [facility] famotidine 20 mg tablet 03-08 00:00: 00 Yes [id number] 20mg Take 1 tablet by mouth 2 (two) times daily. [facility] magnesium oxide 40 mg/mL oral suspension 03-08 00:00: 00 Yes [id number] 400mg Take 10 mL by mouth daily. [facility] famotidine 20 mg tablet 03-08 00:00: 00 Yes [id number] 20mg Take 1 tablet by mouth 2 (two) times daily. [facility] magnesium oxide 40 mg/mL oral suspension 03-08 00:00: 00 Yes [id number] 400mg Take 10 mL by mouth daily. [facility] famotidine 20 mg tablet 03-08 00:00: 00 Yes [id number] 20mg Take 1 tablet by mouth 2 (two) times daily. [facility] magnesium oxide 40 mg/mL oral suspension 03-08 00:00: 00 Yes [id number] 400mg Take 10 mL by mouth daily. [facility] famotidine 20 mg tablet 03-08 00:00: 00 Yes [id number] 20mg Take 1 tablet by mouth 2 (two) times daily. [facility] magnesium oxide 40 mg/mL oral suspension 03-08 00:00: 00 Yes [id number] 400mg Take 10 mL by mouth daily. [facility] famotidine 20 mg tablet 03-08 00:00: 00 Yes [id number] 20mg Take 1 tablet by mouth 2 (two) times daily. [facility] magnesium oxide 40 mg/mL oral suspension 03-08 00:00: 00 Yes [id number] 400mg Take 10 mL by mouth daily. [facility] famotidine 20 mg tablet 03-08 00:00: 00 Yes [id number] 20mg Take 1 tablet by mouth 2 (two) times daily. [facility] magnesium oxide 40 mg/mL oral suspension 03-08 00:00: 00 Yes [id number] 400mg Take 10 mL by mouth daily. [facility] famotidine 20 mg tablet 03-08 00:00: 00 Yes [id number] 20mg Take 1 tablet by mouth 2 (two) times daily. [facility] magnesium oxide 40 mg/mL oral suspension 03-08 00:00: 00 Yes [id number] 400mg Take 10 mL by mouth daily. [facility] famotidine 20 mg tablet 03-08 00:00: 00 Yes [id number] 20mg Take 1 tablet by mouth 2 (two) times daily. [facility] magnesium oxide 40 mg/mL oral suspension 03-08 00:00: 00 Yes [id number] 400mg Take 10 mL by mouth daily. [facility] famotidine 20 mg tablet 03-08 00:00: 00 Yes [id number] 20mg Take 1 tablet by mouth 2 (two) times daily. [facility] magnesium oxide 40 mg/mL oral suspension 03-08 00:00: 00 Yes [id number] 400mg Take 10 mL by mouth daily. [facility] famotidine 20 mg tablet 03-08 00:00: 00 Yes [id number] 20mg Take 1 tablet by mouth 2 (two) times daily. [facility] magnesium oxide 40 mg/mL oral suspension 03-08 00:00: 00 Yes [id number] 400mg Take 10 mL by mouth daily. [facility] famotidine 20 mg tablet 03-08 00:00: 00 Yes [id number] 20mg Take 1 tablet by mouth 2 (two) times daily. [facility] magnesium oxide 40 mg/mL oral suspension 03-08 00:00: 00 Yes [id number] 400mg Take 10 mL by mouth daily. [facility] famotidine 20 mg tablet 03-08 00:00: 00 Yes [id number] 20mg Take 1 tablet by mouth 2 (two) times daily. [facility] magnesium oxide 40 mg/mL oral suspension 03-08 00:00: 00 Yes [id number] 400mg Take 10 mL by mouth daily. [facility] famotidine 20 mg tablet 03-08 00:00: 00 Yes [id number] 20mg Take 1 tablet by mouth 2 (two) times daily. [facility] magnesium oxide 40 mg/mL oral suspension 03-08 00:00: 00 Yes [id number] 400mg Take 10 mL by mouth daily. [facility] famotidine 20 mg tablet 03-08 00:00: 00 Yes [id number] 20mg Take 1 tablet by mouth 2 (two) times daily. [facility] magnesium oxide 40 mg/mL oral suspension 03-08 00:00: 00 Yes [id number] 400mg Take 10 mL by mouth daily. [facility] famotidine 20 mg tablet 03-08 00:00: 00 Yes [id number] 20mg Take 1 tablet by mouth 2 (two) times daily. [facility] magnesium oxide 40 mg/mL oral suspension 03-08 00:00: 00 Yes [id number] 400mg Take 10 mL by mouth daily. [facility] famotidine 20 mg tablet 03-08 00:00: 00 Yes [id number] 20mg Take 1 tablet by mouth 2 (two) times daily. [facility] magnesium oxide 40 mg/mL oral suspension 03-08 00:00: 00 Yes [id number] 400mg Take 10 mL by mouth daily. [facility] famotidine 20 mg tablet 03-08 00:00: 00 Yes [id number] 20mg Take 1 tablet by mouth 2 (two) times daily. [facility] magnesium oxide 40 mg/mL oral suspension 03-08 00:00: 00 Yes [id number] 400mg Take 10 mL by mouth daily. [facility] famotidine 20 mg tablet 03-08 00:00: 00 Yes [id number] 20mg Take 1 tablet by mouth 2 (two) times daily. [facility] magnesium oxide 40 mg/mL oral suspension 03-08 00:00: 00 Yes [id number] 400mg Take 10 mL by mouth daily. [facility] famotidine 20 mg tablet 03-08 00:00: 00 Yes [id number] 20mg Take 1 tablet by mouth 2 (two) times daily. [facility] magnesium oxide 40 mg/mL oral suspension 03-08 00:00: 00 Yes [id number] 400mg Take 10 mL by mouth daily. [facility] famotidine 20 mg tablet 03-08 00:00: 00 Yes [id number] 20mg Take 1 tablet by mouth 2 (two) times daily. [facility] magnesium oxide 40 mg/mL oral suspension 03-08 00:00: 00 Yes [id number] 400mg Take 10 mL by mouth daily. [facility] famotidine 20 mg tablet 03-08 00:00: 00 Yes [id number] 20mg Take 1 tablet by mouth 2 (two) times daily. [facility] magnesium oxide 40 mg/mL oral suspension 03-08 00:00: 00 Yes [id number] 400mg Take 10 mL by mouth daily. [facility] famotidine 20 mg tablet 03-08 00:00: 00 Yes [id number] 20mg Take 1 tablet by mouth 2 (two) times daily. [facility] magnesium oxide 40 mg/mL oral suspension 03-08 00:00: 00 Yes [id number] 400mg Take 10 mL by mouth daily. [facility] famotidine 20 mg tablet 03-08 00:00: 00 Yes [id number] 20mg Take 1 tablet by mouth 2 (two) times daily. [facility] magnesium oxide 40 mg/mL oral suspension 03-08 00:00: 00 Yes [id number] 400mg Take 10 mL by mouth daily. [facility] famotidine 20 mg tablet 03-08 00:00: 00 Yes [id number] 20mg Take 1 tablet by mouth 2 (two) times daily. [facility] magnesium oxide 40 mg/mL oral suspension 03-08 00:00: 00 Yes [id number] 400mg Take 10 mL by mouth daily. [facility] famotidine 20 mg tablet 03-08 00:00: 00 Yes [id number] 20mg Take 1 tablet by mouth 2 (two) times daily. [facility] magnesium oxide 40 mg/mL oral suspension 03-08 00:00: 00 Yes [id number] 400mg Take 10 mL by mouth daily. [facility] famotidine 20 mg tablet 03-08 00:00: 00 Yes [id number] 20mg Take 1 tablet by mouth 2 (two) times daily. [facility] magnesium oxide 40 mg/mL oral suspension 03-08 00:00: 00 Yes [id number] 400mg Take 10 mL by mouth daily. [facility] famotidine 20 mg tablet 03-08 00:00: 00 Yes [id number] 20mg Take 1 tablet by mouth 2 (two) times daily. [facility] magnesium oxide 40 mg/mL oral suspension 03-08 00:00: 00 Yes [id number] 400mg Take 10 mL by mouth daily. [facility] famotidine 20 mg tablet 03-08 00:00: 00 Yes [id number] 20mg Take 1 tablet by mouth 2 (two) times daily. [facility] magnesium oxide 40 mg/mL oral suspension 03-08 00:00: 00 Yes [id number] 400mg Take 10 mL by mouth daily. [facility] famotidine 20 mg tablet 03-08 00:00: 00 Yes [id number] 20mg Take 1 tablet by mouth 2 (two) times daily. [facility] magnesium oxide 40 mg/mL oral suspension 03-08 00:00: 00 Yes [id number] 400mg Take 10 mL by mouth daily. [facility] famotidine 20 mg tablet 03-08 00:00: 00 Yes [id number] 20mg Take 1 tablet by mouth 2 (two) times daily. [facility] magnesium oxide 40 mg/mL oral suspension 03-08 00:00: 00 Yes [id number] 400mg Take 10 mL by mouth daily. [facility] famotidine 20 mg tablet 03-08 00:00: 00 Yes [id number] 20mg Take 1 tablet by mouth 2 (two) times daily. [facility] magnesium oxide 40 mg/mL oral suspension 03-08 00:00: 00 Yes [id number] 400mg Take 10 mL by mouth daily. [facility] famotidine 20 mg tablet 03-08 00:00: 00 Yes [id number] 20mg Take 1 tablet by mouth 2 (two) times daily. [facility] magnesium oxide 40 mg/mL oral suspension 03-08 00:00: 00 Yes [id number] 400mg Take 10 mL by mouth daily. [facility] famotidine 20 mg tablet 03-08 00:00: 00 Yes [id number] 20mg Take 1 tablet by mouth 2 (two) times daily. [facility] magnesium oxide 40 mg/mL oral suspension 03-08 00:00: 00 Yes [id number] 400mg Take 10 mL by mouth daily. [facility] famotidine 20 mg tablet 03-08 00:00: 00 Yes [id number] 20mg Take 1 tablet by mouth 2 (two) times daily. [facility] magnesium oxide 40 mg/mL oral suspension 03-08 00:00: 00 Yes [id number] 400mg Take 10 mL by mouth daily. [facility] famotidine 20 mg tablet 03-08 00:00: 00 Yes [id number] 20mg Take 1 tablet by mouth 2 (two) times daily. [facility] magnesium oxide 40 mg/mL oral suspension 03-08 00:00: 00 Yes [id number] 400mg Take 10 mL by mouth daily. [facility] famotidine 20 mg tablet 03-08 00:00: 00 Yes [id number] 20mg Take 1 tablet by mouth 2 (two) times daily. [facility] magnesium oxide 40 mg/mL oral suspension 03-08 00:00: 00 Yes [id number] 400mg Take 10 mL by mouth daily. [facility] famotidine 20 mg tablet 03-08 00:00: 00 Yes [id number] 20mg Take 1 tablet by mouth 2 (two) times daily. [facility] magnesium oxide 40 mg/mL oral suspension 03-08 00:00: 00 Yes [id number] 400mg Take 10 mL by mouth daily. [facility] famotidine 20 mg tablet 03-08 00:00: 00 Yes [id number] 20mg Take 1 tablet by mouth 2 (two) times daily. [facility] magnesium oxide 40 mg/mL oral suspension 03-08 00:00: 00 Yes [id number] 400mg Take 10 mL by mouth daily. [facility] famotidine 20 mg tablet 03-08 00:00: 00 Yes [id number] 20mg Take 1 tablet by mouth 2 (two) times daily. [facility] magnesium oxide 40 mg/mL oral suspension 03-08 00:00: 00 Yes [id number] 400mg Take 10 mL by mouth daily. [facility] famotidine 20 mg tablet 03-08 00:00: 00 Yes [id number] 20mg Take 1 tablet by mouth 2 (two) times daily. [facility] magnesium oxide 40 mg/mL oral suspension 03-08 00:00: 00 Yes [id number] 400mg Take 10 mL by mouth daily. [facility] famotidine 20 mg tablet 03-08 00:00: 00 Yes [id number] 20mg Take 1 tablet by mouth 2 (two) times daily. [facility] magnesium oxide 40 mg/mL oral suspension 03-08 00:00: 00 Yes [id number] 400mg Take 10 mL by mouth daily. [facility] famotidine 20 mg tablet 03-08 00:00: 00 Yes [id number] 20mg Take 1 tablet by mouth 2 (two) times daily. [facility] magnesium oxide 40 mg/mL oral suspension 03-08 00:00: 00 Yes [id number] 400mg Take 10 mL by mouth daily. [facility] famotidine 20 mg tablet 03-08 00:00: 00 Yes [id number] 20mg Take 1 tablet by mouth 2 (two) times daily. [facility] magnesium oxide 40 mg/mL oral suspension 03-08 00:00: 00 Yes [id number] 400mg Take 10 mL by mouth daily. [facility] famotidine 20 mg tablet 03-08 00:00: 00 Yes [id number] 20mg Take 1 tablet by mouth 2 (two) times daily. [facility] magnesium oxide 40 mg/mL oral suspension 03-08 00:00: 00 Yes [id number] 400mg Take 10 mL by mouth daily. [facility] famotidine 20 mg tablet 03-08 00:00: 00 Yes [id number] 20mg Take 1 tablet by mouth 2 (two) times daily. [facility] magnesium oxide 40 mg/mL oral suspension 03-08 00:00: 00 Yes [id number] 400mg Take 10 mL by mouth daily. [facility] famotidine 20 mg tablet 03-08 00:00: 00 Yes [id number] 20mg Take 1 tablet by mouth 2 (two) times daily. [facility] magnesium oxide 40 mg/mL oral suspension 03-08 00:00: 00 Yes [id number] 400mg Take 10 mL by mouth daily. [facility] famotidine 20 mg tablet 03-08 00:00: 00 Yes [id number] 20mg Take 1 tablet by mouth 2 (two) times daily. [facility] magnesium oxide 40 mg/mL oral suspension 03-08 00:00: 00 Yes [id number] 400mg Take 10 mL by mouth daily. [facility] famotidine 20 mg tablet 03-08 00:00: 00 Yes [id number] 20mg Take 1 tablet by mouth 2 (two) times daily. [facility] magnesium oxide 40 mg/mL oral suspension 03-08 00:00: 00 Yes [id number] 400mg Take 10 mL by mouth daily. [facility] famotidine 20 mg tablet 03-08 00:00: 00 Yes [id number] 20mg Take 1 tablet by mouth 2 (two) times daily. [facility] magnesium oxide 40 mg/mL oral suspension 03-08 00:00: 00 Yes [id number] 400mg Take 10 mL by mouth daily. [facility] famotidine 20 mg tablet 03-08 00:00: 00 Yes [id number] 20mg Take 1 tablet by mouth 2 (two) times daily. [facility] magnesium oxide 40 mg/mL oral suspension 03-08 00:00: 00 Yes [id number] 400mg Take 10 mL by mouth daily. [facility] famotidine 20 mg tablet 03-08 00:00: 00 Yes [id number] 20mg Take 1 tablet by mouth 2 (two) times daily. [facility] magnesium oxide 40 mg/mL oral suspension 03-08 00:00: 00 Yes [id number] 400mg Take 10 mL by mouth daily. [facility] famotidine 20 mg tablet 03-08 00:00: 00 Yes [id number] 20mg Take 1 tablet by mouth 2 (two) times daily. [facility] magnesium oxide 40 mg/mL oral suspension 03-08 00:00: 00 Yes [id number] 400mg Take 10 mL by mouth daily. [facility] famotidine 20 mg tablet 03-08 00:00: 00 Yes [id number] 20mg Take 1 tablet by mouth 2 (two) times daily. [facility] magnesium oxide 40 mg/mL oral suspension 03-08 00:00: 00 Yes [id number] 400mg Take 10 mL by mouth daily. [facility] famotidine 20 mg tablet 03-08 00:00: 00 Yes [id number] 20mg Take 1 tablet by mouth 2 (two) times daily. [facility] magnesium oxide 40 mg/mL oral suspension 03-08 00:00: 00 Yes [id number] 400mg Take 10 mL by mouth daily. [facility] famotidine 20 mg tablet 03-08 00:00: 00 Yes [id number] 20mg Take 1 tablet by mouth 2 (two) times daily. [facility] magnesium oxide 40 mg/mL oral suspension 03-08 00:00: 00 Yes [id number] 400mg Take 10 mL by mouth daily. [facility] famotidine 20 mg tablet 03-08 00:00: 00 Yes [id number] 20mg Take 1 tablet by mouth 2 (two) times daily. [facility] magnesium oxide 40 mg/mL oral suspension 03-08 00:00: 00 Yes [id number] 400mg Take 10 mL by mouth daily. [facility] famotidine 20 mg tablet 03-08 00:00: 00 Yes [id number] 20mg Take 1 tablet by mouth 2 (two) times daily. [facility] magnesium oxide 40 mg/mL oral suspension 03-08 00:00: 00 Yes [id number] 400mg Take 10 mL by mouth daily. [facility] famotidine 20 mg tablet 03-08 00:00: 00 Yes [id number] 20mg Take 1 tablet by mouth 2 (two) times daily. [facility] magnesium oxide 40 mg/mL oral suspension 03-08 00:00: 00 Yes [id number] 400mg Take 10 mL by mouth daily. [facility] famotidine 20 mg tablet 03-08 00:00: 00 Yes [id number] 20mg Take 1 tablet by mouth 2 (two) times daily. [facility] magnesium oxide 40 mg/mL oral suspension 03-08 00:00: 00 Yes [id number] 400mg Take 10 mL by mouth daily. [facility] famotidine 20 mg tablet 03-08 00:00: 00 Yes [id number] 20mg Take 1 tablet by mouth 2 (two) times daily. [facility] magnesium oxide 40 mg/mL oral suspension 03-08 00:00: 00 Yes [id number] 400mg Take 10 mL by mouth daily. [facility] famotidine 20 mg tablet 03-08 00:00: 00 Yes [id number] 20mg Take 1 tablet by mouth 2 (two) times daily. [facility] magnesium oxide 40 mg/mL oral suspension 03-08 00:00: 00 Yes [id number] 400mg Take 10 mL by mouth daily. [facility] famotidine 20 mg tablet 03-08 00:00: 00 Yes [id number] 20mg Take 1 tablet by mouth 2 (two) times daily. [facility] magnesium oxide 40 mg/mL oral suspension 03-08 00:00: 00 Yes [id number] 400mg Take 10 mL by mouth daily. [facility] famotidine 20 mg tablet 03-08 00:00: 00 Yes [id number] 20mg Take 1 tablet by mouth 2 (two) times daily. [facility] magnesium oxide 40 mg/mL oral suspension 03-08 00:00: 00 Yes [id number] 400mg Take 10 mL by mouth daily. [facility] famotidine 20 mg tablet 03-08 00:00: 00 Yes [id number] 20mg Take 1 tablet by mouth 2 (two) times daily. [facility] magnesium oxide 40 mg/mL oral suspension 03-08 00:00: 00 Yes [id number] 400mg Take 10 mL by mouth daily. [facility] famotidine 20 mg tablet 03-08 00:00: 00 Yes [id number] 20mg Take 1 tablet by mouth 2 (two) times daily. [facility] magnesium oxide 40 mg/mL oral suspension 03-08 00:00: 00 Yes [id number] 400mg Take 10 mL by mouth daily. [facility] famotidine 20 mg tablet 03-08 00:00: 00 Yes [id number] 20mg Take 1 tablet by mouth 2 (two) times daily. [facility] magnesium oxide 40 mg/mL oral suspension 03-08 00:00: 00 Yes [id number] 400mg Take 10 mL by mouth daily. [facility] famotidine 20 mg tablet 03-08 00:00: 00 Yes [id number] 20mg Take 1 tablet by mouth 2 (two) times daily. [facility] magnesium oxide 40 mg/mL oral suspension 03-08 00:00: 00 Yes [id number] 400mg Take 10 mL by mouth daily. [facility] famotidine 20 mg tablet 03-08 00:00: 00 Yes [id number] 20mg Take 1 tablet by mouth 2 (two) times daily. [facility] magnesium oxide 40 mg/mL oral suspension 03-08 00:00: 00 Yes [id number] 400mg Take 10 mL by mouth daily. [facility] famotidine 20 mg tablet 03-08 00:00: 00 Yes [id number] 20mg Take 1 tablet by mouth 2 (two) times daily. [facility] magnesium oxide 40 mg/mL oral suspension 03-08 00:00: 00 Yes [id number] 400mg Take 10 mL by mouth daily. [facility] famotidine 20 mg tablet 03-08 00:00: 00 Yes [id number] 20mg Take 1 tablet by mouth 2 (two) times daily. [facility] magnesium oxide 40 mg/mL oral suspension 03-08 00:00: 00 Yes [id number] 400mg Take 10 mL by mouth daily. [facility] famotidine 20 mg tablet 03-08 00:00: 00 Yes [id number] 20mg Take 1 tablet by mouth 2 (two) times daily. [facility] magnesium oxide 40 mg/mL oral suspension 03-08 00:00: 00 Yes [id number] 400mg Take 10 mL by mouth daily. [facility] famotidine 20 mg tablet 03-08 00:00: 00 Yes [id number] 20mg Take 1 tablet by mouth 2 (two) times daily. [facility] magnesium oxide 40 mg/mL oral suspension 03-08 00:00: 00 Yes [id number] 400mg Take 10 mL by mouth daily. [facility] famotidine 20 mg tablet 03-08 00:00: 00 Yes [id number] 20mg Take 1 tablet by mouth 2 (two) times daily. [facility] magnesium oxide 40 mg/mL oral suspension 03-08 00:00: 00 Yes [id number] 400mg Take 10 mL by mouth daily. [facility] famotidine 20 mg tablet 03-08 00:00: 00 Yes [id number] 20mg Take 1 tablet by mouth 2 (two) times daily. [facility] magnesium oxide 40 mg/mL oral suspension 03-08 00:00: 00 Yes [id number] 400mg Take 10 mL by mouth daily. [facility] famotidine 20 mg tablet 03-08 00:00: 00 Yes [id number] 20mg Take 1 tablet by mouth 2 (two) times daily. [facility] magnesium oxide 40 mg/mL oral suspension 03-08 00:00: 00 Yes [id number] 400mg Take 10 mL by mouth daily. [facility] famotidine 20 mg tablet 03-08 00:00: 00 Yes [id number] 20mg Take 1 tablet by mouth 2 (two) times daily. [facility] magnesium oxide 40 mg/mL oral suspension 03-08 00:00: 00 Yes [id number] 400mg Take 10 mL by mouth daily. [facility] famotidine 20 mg tablet 03-08 00:00: 00 Yes [id number] 20mg Take 1 tablet by mouth 2 (two) times daily. [facility] magnesium oxide 40 mg/mL oral suspension 03-08 00:00: 00 Yes [id number] 400mg Take 10 mL by mouth daily. [facility] 03-08 00:00: 00 Yes [id number] 20mg Take 1 tablet by mouth 2 (two) times daily. [facility] magnesium oxide 40 mg/mL oral suspension 03-08 00:00: 00 Yes [id number] 400mg Take 10 mL by mouth daily. [facility] famotidine 20 mg tablet 03-08 00:00: 00 Yes [id number] 20mg Take 1 tablet by mouth 2 (two) times daily. [facility] magnesium oxide 40 mg/mL oral suspension 03-08 00:00: 00 Yes [id number] 400mg Take 10 mL by mouth daily. [facility] famotidine 20 mg tablet 03-08 00:00: 00 Yes [id number] 20mg Take 1 tablet by mouth 2 (two) times daily. [facility] magnesium oxide 40 mg/mL oral suspension 03-08 00:00: 00 Yes [id number] 400mg Take 10 mL by mouth daily. [facility] famotidine 20 mg tablet 03-08 00:00: 00 Yes [id number] 20mg Take 1 tablet by mouth 2 (two) times daily. [facility] magnesium oxide 40 mg/mL oral suspension 03-08 00:00: 00 Yes [id number] 400mg Take 10 mL by mouth daily. [facility] famotidine 20 mg tablet 03-08 00:00: 00 Yes [id number] 20mg Take 1 tablet by mouth 2 (two) times daily. [facility] magnesium oxide 40 mg/mL oral suspension 03-08 00:00: 00 Yes [id number] 400mg Take 10 mL by mouth daily. [facility] famotidine 20 mg tablet 03-08 00:00: 00 Yes [id number] 20mg Take 1 tablet by mouth 2 (two) times daily. [facility] magnesium oxide 40 mg/mL oral suspension 03-08 00:00: 00 Yes [id number] 400mg Take 10 mL by mouth daily. [facility] famotidine 20 mg tablet 03-08 00:00: 00 Yes [id number] 20mg Take 1 tablet by mouth 2 (two) times daily. [facility] magnesium oxide 40 mg/mL oral suspension 03-08 00:00: 00 Yes [id number] 400mg Take 10 mL by mouth daily. [facility] famotidine 20 mg tablet 03-08 00:00: 00 Yes [id number] 20mg Take 1 tablet by mouth 2 (two) times daily. [facility] magnesium oxide 40 mg/mL oral suspension 03-08 00:00: 00 Yes [id number] 400mg Take 10 mL by mouth daily. [facility] famotidine 20 mg tablet 03-08 00:00: 00 Yes [id number] 20mg Take 1 tablet by mouth 2 (two) times daily. [facility] magnesium oxide 40 mg/mL oral suspension 03-08 00:00: 00 Yes [id number] 400mg Take 10 mL by mouth daily. [facility] famotidine 20 mg tablet 03-08 00:00: 00 Yes [id number] 20mg Take 1 tablet by mouth 2 (two) times daily. [facility] magnesium oxide 40 mg/mL oral suspension 03-08 00:00: 00 Yes [id number] 400mg Take 10 mL by mouth daily. [facility] famotidine 20 mg tablet 03-08 00:00: 00 Yes [id number] 20mg Take 1 tablet by mouth 2 (two) times daily. [facility] magnesium oxide 40 mg/mL oral suspension 03-08 00:00: 00 Yes [id number] 400mg Take 10 mL by mouth daily. [facility] famotidine 20 mg tablet 03-08 00:00: 00 Yes [id number] 20mg Take 1 tablet by mouth 2 (two) times daily. [facility] magnesium oxide 40 mg/mL oral suspension 03-08 00:00: 00 Yes [id number] 400mg Take 10 mL by mouth daily. [facility] famotidine 20 mg tablet 03-08 00:00: 00 Yes [id number] 20mg Take 1 tablet by mouth 2 (two) times daily. [facility] magnesium oxide 40 mg/mL oral suspension 03-08 00:00: 00 Yes [id number] 400mg Take 10 mL by mouth daily. [facility] famotidine 20 mg tablet 03-08 00:00: 00 Yes [id number] 20mg Take 1 tablet by mouth 2 (two) times daily. [facility] magnesium oxide 40 mg/mL oral suspension 03-08 00:00: 00 Yes [id number] 400mg Take 10 mL by mouth daily. [facility] famotidine 20 mg tablet 03-08 00:00: 00 Yes [id number] 20mg Take 1 tablet by mouth 2 (two) times daily. [facility] magnesium oxide 40 mg/mL oral suspension 03-08 00:00: 00 Yes [id number] 400mg Take 10 mL by mouth daily. [facility] famotidine 20 mg tablet 03-08 00:00: 00 Yes [id number] 20mg Take 1 tablet by mouth 2 (two) times daily. [facility] magnesium oxide 40 mg/mL oral suspension 03-08 00:00: 00 Yes [id number] 400mg Take 10 mL by mouth daily. [facility] famotidine 20 mg tablet 03-08 00:00: 00 Yes [id number] 20mg Take 1 tablet by mouth 2 (two) times daily. [facility] magnesium oxide 40 mg/mL oral suspension 03-08 00:00: 00 Yes [id number] 400mg Take 10 mL by mouth daily. [facility] famotidine 20 mg tablet 03-08 00:00: 00 Yes [id number] 20mg Take 1 tablet by mouth 2 (two) times daily. [facility] magnesium oxide 40 mg/mL oral suspension 03-08 00:00: 00 Yes [id number] 400mg Take 10 mL by mouth daily. [facility] famotidine 20 mg tablet 03-08 00:00: 00 Yes [id number] 20mg Take 1 tablet by mouth 2 (two) times daily. [facility] magnesium oxide 40 mg/mL oral suspension 03-08 00:00: 00 Yes [id number] 400mg Take 10 mL by mouth daily. [facility] famotidine 20 mg tablet 03-08 00:00: 00 Yes [id number] 20mg Take 1 tablet by mouth 2 (two) times daily. [facility] magnesium oxide 40 mg/mL oral suspension 03-08 00:00: 00 Yes [id number] 400mg Take 10 mL by mouth daily. [facility] famotidine 20 mg tablet 03-08 00:00: 00 Yes [id number] 20mg Take 1 tablet by mouth 2 (two) times daily. [facility] magnesium oxide 40 mg/mL oral suspension 03-08 00:00: 00 Yes [id number] 400mg Take 10 mL by mouth daily. [facility] famotidine 20 mg tablet 03-08 00:00: 00 Yes [id number] 20mg Take 1 tablet by mouth 2 (two) times daily. [facility] magnesium oxide 40 mg/mL oral suspension 03-08 00:00: 00 Yes [id number] 400mg Take 10 mL by mouth daily. [facility] famotidine 20 mg tablet 03-08 00:00: 00 Yes [id number] 20mg Take 1 tablet by mouth 2 (two) times daily. [facility] magnesium oxide 40 mg/mL oral suspension 03-08 00:00: 00 Yes [id number] 400mg Take 10 mL by mouth daily. [facility] famotidine 20 mg tablet 03-08 00:00: 00 Yes [id number] 20mg Take 1 tablet by mouth 2 (two) times daily. [facility] magnesium oxide 40 mg/mL oral suspension 03-08 00:00: 00 Yes [id number] 400mg Take 10 mL by mouth daily. [facility] magnesium oxide 40 mg/mL oral suspension 03-08 00:00: 00 Yes [id number] 400mg Take 10 mL by mouth daily. [facility] magnesium oxide 40 mg/mL oral suspension 03-08 00:00: 00 Yes [id number] 400mg Take 10 mL by mouth daily. [facility] magnesium oxide 40 mg/mL oral suspension 03-08 00:00: 00 Yes [id number] 400mg Take 10 mL by mouth daily. [facility] magnesium oxide 40 mg/mL oral suspension 03-08 00:00: 00 Yes [id number] 400mg Take 10 mL by mouth daily. [facility] magnesium oxide 40 mg/mL oral suspension 03-08 00:00: 00 Yes [id number] 400mg Take 10 mL by mouth daily. [facility] magnesium oxide 40 mg/mL oral suspension 03-08 00:00: 00 Yes [id number] 400mg Take 10 mL by mouth daily. [facility] magnesium oxide 40 mg/mL oral suspension 03-08 00:00: 00 Yes [id number] 400mg Take 10 mL by mouth daily. [facility] magnesium oxide 40 mg/mL oral suspension 03-08 00:00: 00 Yes [id number] 400mg Take 10 mL by mouth daily. [facility] magnesium oxide 40 mg/mL oral suspension 03-08 00:00: 00 Yes [id number] 400mg Take 10 mL by mouth daily. [facility] magnesium oxide 40 mg/mL oral suspension 03-08 00:00: 00 Yes [id number] 400mg Take 10 mL by mouth daily. [facility] magnesium oxide 40 mg/mL oral suspension 03-08 00:00: 00 Yes [id number] 400mg Take 10 mL by mouth daily. [facility] magnesium oxide 40 mg/mL oral suspension 03-08 00:00: 00 Yes [id number] 400mg Take 10 mL by mouth daily. [facility] magnesium oxide 40 mg/mL oral suspension 03-08 00:00: 00 Yes [id number] 400mg Take 10 mL by mouth daily. [facility] magnesium oxide 40 mg/mL oral suspension 03-08 00:00: 00 Yes [id number] 400mg Take 10 mL by mouth daily. [facility] magnesium oxide 40 mg/mL oral suspension 03-08 00:00: 00 Yes [id number] 400mg Take 10 mL by mouth daily. [facility] magnesium oxide 40 mg/mL oral suspension 03-08 00:00: 00 Yes [id number] 400mg Take 10 mL by mouth daily. [facility] magnesium oxide 40 mg/mL oral suspension 03-08 00:00: 00 Yes [id number] 400mg Take 10 mL by mouth daily. [facility] magnesium oxide 40 mg/mL oral suspension 03-08 00:00: 00 Yes [id number] 400mg Take 10 mL by mouth daily. [facility] magnesium oxide 40 mg/mL oral suspension 03-08 00:00: 00 Yes [id number] 400mg Take 10 mL by mouth daily. [facility] magnesium oxide 40 mg/mL oral suspension 03-08 00:00: 00 Yes [id number] 400mg Take 10 mL by mouth daily. [facility] magnesium oxide 40 mg/mL oral suspension 03-08 00:00: 00 Yes [id number] 400mg Take 10 mL by mouth daily. [facility] magnesium oxide 40 mg/mL oral suspension 03-08 00:00: 00 Yes [id number] 400mg Take 10 mL by mouth daily. [facility] magnesium oxide 40 mg/mL oral suspension 03-08 00:00: 00 Yes [id number] 400mg Take 10 mL by mouth daily. [facility] magnesium oxide 40 mg/mL oral suspension 03-08 00:00: 00 Yes [id number] 400mg Take 10 mL by mouth daily. [facility] magnesium oxide 40 mg/mL oral suspension 03-08 00:00: 00 Yes [id number] 400mg Take 10 mL by mouth daily. [facility] magnesium oxide 40 mg/mL oral suspension 03-08 00:00: 00 Yes [id number] 400mg Take 10 mL by mouth daily. [facility] magnesium oxide 40 mg/mL oral suspension 03-08 00:00: 00 Yes [id number] 400mg Take 10 mL by mouth daily. [facility] magnesium oxide 40 mg/mL oral suspension 03-08 00:00: 00 Yes [id number] 400mg Take 10 mL by mouth daily. [facility] magnesium oxide 40 mg/mL oral suspension 03-08 00:00: 00 Yes [id number] 400mg Take 10 mL by mouth daily. [facility] magnesium oxide 40 mg/mL oral suspension 03-08 00:00: 00 Yes [id number] 400mg Take 10 mL by mouth daily. [facility] magnesium oxide 40 mg/mL oral suspension 03-08 00:00: 00 Yes [id number] 400mg Take 10 mL by mouth daily. [facility] magnesium oxide 40 mg/mL oral suspension 03-08 00:00: 00 Yes [id number] 400mg Take 10 mL by mouth daily. [facility] magnesium oxide 40 mg/mL oral suspension 0 03-08 00:00: 00 Yes [id number] 400mg Take 10 mL by mouth daily. [facility] magnesium oxide 40 mg/mL oral suspension 0 03-08 00:00: 00 Yes [id number] 400mg Take 10 mL by mouth daily. [facility] magnesium oxide 40 mg/mL oral suspension 0 03-08 00:00: 00 Yes [id number] 400mg Take 10 mL by mouth daily. [facility] magnesium oxide 40 mg/mL oral suspension 03-08 00:00: 00 Yes [id number] 400mg Take 10 mL by mouth daily. [facility] magnesium oxide 40 mg/mL oral suspension 03-08 00:00: 00 Yes [id number] 400mg Take 10 mL by mouth daily. [facility] magnesium oxide 40 mg/mL oral suspension 03-08 00:00: 00 Yes [id number] 400mg Take 10 mL by mouth daily. [facility] magnesium oxide 40 mg/mL oral suspension 03-08 00:00: 00 Yes [id number] 400mg Take 10 mL by mouth daily. [facility] magnesium oxide 40 mg/mL oral suspension 03-08 00:00: 00 Yes [id number] 400mg Take 10 mL by mouth daily. [facility] magnesium oxide 40 mg/mL oral suspension 03-08 00:00: 00 Yes [id number] 400mg Take 10 mL by mouth daily. [facility] magnesium oxide 40 mg/mL oral suspension 03-08 00:00: 00 Yes [id number] 400mg Take 10 mL by mouth daily. [facility] magnesium oxide 40 mg/mL oral suspension 03-08 00:00: 00 Yes [id number] 400mg Take 10 mL by mouth daily. [facility] magnesium oxide 40 mg/mL oral suspension 03-08 00:00: 00 Yes [id number] 400mg Take 10 mL by mouth daily. [facility] magnesium oxide 40 mg/mL oral suspension 0 03-08 00:00: 00 Yes [id number] 400mg Take 10 mL by mouth daily. [facility] magnesium oxide 40 mg/mL oral suspension 0 03-08 00:00: 00 Yes [id number] 400mg Take 10 mL by mouth daily. [facility] magnesium oxide 40 mg/mL oral suspension 0 03-08 00:00: 00 Yes [id number] 400mg Take 10 mL by mouth daily. [facility] magnesium oxide 40 mg/mL oral suspension 03-08 00:00: 00 Yes [id number] 400mg Take 10 mL by mouth daily. [facility] magnesium oxide 40 mg/mL oral suspension 03-08 00:00: 00 Yes [id number] 400mg Take 10 mL by mouth daily. [facility] magnesium oxide 40 mg/mL oral suspension 03-08 00:00: 00 Yes [id number] 400mg Take 10 mL by mouth daily. [facility] magnesium oxide 40 mg/mL oral suspension 03-08 00:00: 00 Yes [id number] 400mg Take 10 mL by mouth daily. [facility] magnesium oxide 40 mg/mL oral suspension 03-08 00:00: 00 Yes [id number] 400mg Take 10 mL by mouth daily. [facility] magnesium oxide 40 mg/mL oral suspension 03-08 00:00: 00 Yes [id number] 400mg Take 10 mL by mouth daily. [facility] magnesium oxide 40 mg/mL oral suspension 03-08 00:00: 00 Yes [id number] 400mg Take 10 mL by mouth daily. [facility] magnesium oxide 40 mg/mL oral suspension 03-08 00:00: 00 Yes [id number] 400mg Take 10 mL by mouth daily. [facility] magnesium oxide 40 mg/mL oral suspension 03-08 00:00: 00 Yes [id number] 400mg Take 10 mL by mouth daily. [facility] magnesium oxide 40 mg/mL oral suspension 03-08 00:00: 00 Yes [id number] 400mg Take 10 mL by mouth daily. [facility] magnesium oxide 40 mg/mL oral suspension 03-08 00:00: 00 Yes [id number] 400mg Take 10 mL by mouth daily. [facility] magnesium oxide 40 mg/mL oral suspension 03-08 00:00: 00 Yes [id number] 400mg Take 10 mL by mouth daily. [facility] magnesium oxide 40 mg/mL oral suspension 03-08 00:00: 00 Yes [id number] 400mg Take 10 mL by mouth daily. [facility] magnesium oxide 40 mg/mL oral suspension 03-08 00:00: 00 Yes [id number] 400mg Take 10 mL by mouth daily. [facility] magnesium oxide 40 mg/mL oral suspension 03-08 00:00: 00 Yes [id number] 400mg Take 10 mL by mouth daily. [facility] magnesium oxide 40 mg/mL oral suspension 03-08 00:00: 00 Yes [id number] 400mg Take 10 mL by mouth daily. [facility] magnesium oxide 40 mg/mL oral suspension 03-08 00:00: 00 Yes [id number] 400mg Take 10 mL by mouth daily. [facility] magnesium oxide 40 mg/mL oral suspension 03-08 00:00: 00 Yes [id number] 400mg Take 10 mL by mouth daily. [facility] magnesium oxide 40 mg/mL oral suspension 03-08 00:00: 00 Yes [id number] 400mg Take 10 mL by mouth daily. [facility] magnesium oxide 40 mg/mL oral suspension 03-08 00:00: 00 Yes [id number] 400mg Take 10 mL by mouth daily. [facility] magnesium oxide 40 mg/mL oral suspension 03-08 00:00: 00 Yes [id number] 400mg Take 10 mL by mouth daily. [facility] magnesium oxide 40 mg/mL oral suspension 03-08 00:00: 00 Yes [id number] 400mg Take 10 mL by mouth daily. [facility] magnesium oxide 40 mg/mL oral suspension 03-08 00:00: 00 Yes [id number] 400mg Take 10 mL by mouth daily. [facility] magnesium oxide 40 mg/mL oral suspension 03-08 00:00: 00 Yes [id number] 400mg Take 10 mL by mouth daily. [facility] magnesium oxide 40 mg/mL oral suspension 03-08 00:00: 00 Yes [id number] 400mg Take 10 mL by mouth daily. [facility] magnesium oxide 40 mg/mL oral suspension 03-08 00:00: 00 Yes [id number] 400mg Take 10 mL by mouth daily. [facility] magnesium oxide 40 mg/mL oral suspension 03-08 00:00: 00 Yes [id number] 400mg Take 10 mL by mouth daily. [facility] magnesium oxide 40 mg/mL oral suspension 03-08 00:00: 00 Yes [id number] 400mg Take 10 mL by mouth daily. [facility] magnesium oxide 40 mg/mL oral suspension 03-08 00:00: 00 Yes [id number] 400mg Take 10 mL by mouth daily. [facility] magnesium oxide 40 mg/mL oral suspension 03-08 00:00: 00 Yes [id number] 400mg Take 10 mL by mouth daily. [facility] magnesium oxide 40 mg/mL oral suspension 03-08 00:00: 00 Yes [id number] 400mg Take 10 mL by mouth daily. [facility] magnesium oxide 40 mg/mL oral suspension 03-08 00:00: 00 Yes [id number] 400mg Take 10 mL by mouth daily. [facility] magnesium oxide 40 mg/mL oral suspension 03-08 00:00: 00 Yes [id number] 400mg Take 10 mL by mouth daily. [facility] magnesium oxide 40 mg/mL oral suspension 03-08 00:00: 00 Yes [id number] 400mg Take 10 mL by mouth daily. [facility] magnesium oxide 40 mg/mL oral suspension 03-08 00:00: 00 Yes [id number] 400mg Take 10 mL by mouth daily. [facility] magnesium oxide 40 mg/mL oral suspension 03-08 00:00: 00 Yes [id number] 400mg Take 10 mL by mouth daily. [facility] magnesium oxide 40 mg/mL oral suspension 202103-08 00:00: 00 Yes [id number] 400mg Take 10 mL by mouth daily. [facility] magnesium oxide 40 mg/mL oral suspension 03-08 00:00: 00 Yes [id number] 400mg Take 10 mL by mouth daily. [facility] magnesium oxide 40 mg/mL oral suspension 03-08 00:00: 00 Yes [id number] 400mg Take 10 mL by mouth daily. [facility] magnesium oxide 40 mg/mL oral suspension 03-08 00:00: 00 Yes [id number] 400mg Take 10 mL by mouth daily. [facility] magnesium oxide 40 mg/mL oral suspension 03-08 00:00: 00 Yes [id number] 400mg Take 10 mL by mouth daily. [facility] magnesium oxide 40 mg/mL oral suspension 03-08 00:00: 00 Yes [id number] 400mg Take 10 mL by mouth daily. [facility] magnesium oxide 40 mg/mL oral suspension 03-08 00:00: 00 Yes [id number] 400mg Take 10 mL by mouth daily. [facility] magnesium oxide 40 mg/mL oral suspension 03-08 00:00: 00 Yes [id number] 400mg Take 10 mL by mouth daily. [facility] magnesium oxide 40 mg/mL oral suspension 03-08 00:00: 00 Yes [id number] 400mg Take 10 mL by mouth daily. [facility] magnesium oxide 40 mg/mL oral suspension 03-08 00:00: 00 Yes [id number] 400mg Take 10 mL by mouth daily. [facility] magnesium oxide 40 mg/mL oral suspension 0 03-08 00:00: 00 Yes [id number] 400mg Take 10 mL by mouth daily. [facility] magnesium oxide 40 mg/mL oral suspension 03-08 00:00: 00 Yes [id number] 400mg Take 10 mL by mouth daily. [facility] magnesium oxide 40 mg/mL oral suspension 0 03-08 00:00: 00 Yes [id number] 400mg Take 10 mL by mouth daily. [facility] magnesium oxide 40 mg/mL oral suspension 03-08 00:00: 00 Yes [id number] 400mg Take 10 mL by mouth daily. [facility] magnesium oxide 40 mg/mL oral suspension 03-08 00:00: 00 Yes [id number] 400mg Take 10 mL by mouth daily. [facility] magnesium oxide 40 mg/mL oral suspension 03-08 00:00: 00 Yes [id number] 400mg Take 10 mL by mouth daily. [facility] magnesium oxide 40 mg/mL oral suspension 03-08 00:00: 00 Yes [id number] 400mg Take 10 mL by mouth daily. [facility] magnesium oxide 40 mg/mL oral suspension 03-08 00:00: 00 Yes [id number] 400mg Take 10 mL by mouth daily. [facility] magnesium oxide 40 mg/mL oral suspension 03-08 00:00: 00 Yes [id number] 400mg Take 10 mL by mouth daily. [facility] magnesium oxide 40 mg/mL oral suspension 03-08 00:00: 00 Yes [id number] 400mg Take 10 mL by mouth daily. [facility] magnesium oxide 40 mg/mL oral suspension 03-08 00:00: 00 Yes [id number] 400mg Take 10 mL by mouth daily. [facility] magnesium oxide 40 mg/mL oral suspension 03-08 00:00: 00 Yes [id number] 400mg Take 10 mL by mouth daily. [facility] magnesium oxide 40 mg/mL oral suspension 0 03-08 00:00: 00 Yes [id number] 400mg Take 10 mL by mouth daily. [facility] magnesium oxide 40 mg/mL oral suspension 0 03-08 00:00: 00 Yes [id number] 400mg Take 10 mL by mouth daily. [facility] magnesium oxide 40 mg/mL oral suspension 0 03-08 00:00: 00 Yes [id number] 400mg Take 10 mL by mouth daily. [facility] magnesium oxide 40 mg/mL oral suspension 03-08 00:00: 00 Yes [id number] 400mg Take 10 mL by mouth daily. [facility] magnesium oxide 40 mg/mL oral suspension 03-08 00:00: 00 Yes [id number] 400mg Take 10 mL by mouth daily. [facility] magnesium oxide 40 mg/mL oral suspension 03-08 00:00: 00 Yes [id number] 400mg Take 10 mL by mouth daily. [facility] magnesium oxide 40 mg/mL oral suspension 03-08 00:00: 00 Yes [id number] 400mg Take 10 mL by mouth daily. [facility] magnesium oxide 40 mg/mL oral suspension 03-08 00:00: 00 Yes [id number] 400mg Take 10 mL by mouth daily. [facility] magnesium oxide 40 mg/mL oral suspension 03-08 00:00: 00 Yes [id number] 400mg Take 10 mL by mouth daily. [facility] magnesium oxide 40 mg/mL oral suspension 03-08 00:00: 00 Yes [id number] 400mg Take 10 mL by mouth daily. [facility] magnesium oxide 40 mg/mL oral suspension 03-08 00:00: 00 Yes [id number] 400mg Take 10 mL by mouth daily. [facility] magnesium oxide 40 mg/mL oral suspension 03-08 00:00: 00 Yes [id number] 400mg Take 10 mL by mouth daily. [facility] magnesium oxide 40 mg/mL oral suspension 03-08 00:00: 00 Yes [id number] 400mg Take 10 mL by mouth daily. [facility] magnesium oxide 40 mg/mL oral suspension 03-08 00:00: 00 Yes [id number] 400mg Take 10 mL by mouth daily. [facility] magnesium oxide 40 mg/mL oral suspension 03-08 00:00: 00 Yes [id number] 400mg Take 10 mL by mouth daily. [facility] magnesium oxide 40 mg/mL oral suspension 03-08 00:00: 00 Yes [id number] 400mg Take 10 mL by mouth daily. [facility] magnesium oxide 40 mg/mL oral suspension 03-08 00:00: 00 Yes [id number] 400mg Take 10 mL by mouth daily. [facility] magnesium oxide 40 mg/mL oral suspension 03-08 00:00: 00 Yes [id number] 400mg Take 10 mL by mouth daily. [facility] magnesium oxide 40 mg/mL oral suspension 03-08 00:00: 00 Yes [id number] 400mg Take 10 mL by mouth daily. [facility] magnesium oxide 40 mg/mL oral suspension 03-08 00:00: 00 Yes [id number] 400mg Take 10 mL by mouth daily. [facility] magnesium oxide 40 mg/mL oral suspension 03-08 00:00: 00 Yes [id number] 400mg Take 10 mL by mouth daily. [facility] magnesium oxide 40 mg/mL oral suspension 03-08 00:00: 00 Yes [id number] 400mg Take 10 mL by mouth daily. [facility] magnesium oxide 40 mg/mL oral suspension 03-08 00:00: 00 Yes [id number] 400mg Take 10 mL by mouth daily. [facility] magnesium oxide 40 mg/mL oral suspension 03-08 00:00: 00 Yes [id number] 400mg Take 10 mL by mouth daily. [facility] magnesium oxide 40 mg/mL oral suspension 03-08 00:00: 00 Yes [id number] 400mg Take 10 mL by mouth daily. [facility] magnesium oxide 40 mg/mL oral suspension 03-08 00:00: 00 Yes [id number] 400mg Take 10 mL by mouth daily. [facility] magnesium oxide 40 mg/mL oral suspension 03-08 00:00: 00 Yes [id number] 400mg Take 10 mL by mouth daily. [facility] magnesium oxide 40 mg/mL oral suspension 03-08 00:00: 00 Yes [id number] 400mg Take 10 mL by mouth daily. [facility] magnesium oxide 40 mg/mL oral suspension 03-08 00:00: 00 Yes [id number] 400mg Take 10 mL by mouth daily. [facility] magnesium oxide 40 mg/mL oral suspension 03-08 00:00: 00 Yes [id number] 400mg Take 10 mL by mouth daily. [facility] magnesium oxide 40 mg/mL oral suspension 03-08 00:00: 00 Yes [id number] 400mg Take 10 mL by mouth daily. [facility] magnesium oxide 40 mg/mL oral suspension 03-08 00:00: 00 Yes [id number] 400mg Take 10 mL by mouth daily. [facility] magnesium oxide 40 mg/mL oral suspension 03-08 00:00: 00 Yes [id number] 400mg Take 10 mL by mouth daily. [facility] magnesium oxide 40 mg/mL oral suspension 03-08 00:00: 00 Yes [id number] 400mg Take 10 mL by mouth daily. [facility] magnesium oxide 40 mg/mL oral suspension 03-08 00:00: 00 Yes [id number] 400mg Take 10 mL by mouth daily. [facility] magnesium oxide 40 mg/mL oral suspension 03-08 00:00: 00 Yes [id number] 400mg Take 10 mL by mouth daily. [facility] magnesium oxide 40 mg/mL oral suspension 03-08 00:00: 00 Yes [id number] 400mg Take 10 mL by mouth daily. [facility] magnesium oxide 40 mg/mL oral suspension 03-08 00:00: 00 Yes [id number] 400mg Take 10 mL by mouth daily. [facility] magnesium oxide 40 mg/mL oral suspension 03-08 00:00: 00 Yes [id number] 400mg Take 10 mL by mouth daily. [facility] magnesium oxide 40 mg/mL oral suspension 20203-08 00:00: 00 Yes [id number] 400mg Take 10 mL by mouth daily. [facility] magnesium oxide 40 mg/mL oral suspension 03-08 00:00: 00 Yes [id number] 400mg Take 10 mL by mouth daily. [facility] magnesium oxide 40 mg/mL oral suspension 03-08 00:00: 00 Yes [id number] 400mg Take 10 mL by mouth daily. [facility] magnesium oxide 40 mg/mL oral suspension 03-08 00:00: 00 Yes [id number] 400mg Take 10 mL by mouth daily. [facility] magnesium oxide 40 mg/mL oral suspension 03-08 00:00: 00 Yes [id number] 400mg Take 10 mL by mouth daily. [facility] magnesium oxide 40 mg/mL oral suspension 03-08 00:00: 00 Yes [id number] 400mg Take 10 mL by mouth daily. [facility] magnesium oxide 40 mg/mL oral suspension 03-08 00:00: 00 Yes [id number] 400mg Take 10 mL by mouth daily. [facility] magnesium oxide 40 mg/mL oral suspension 03-08 00:00: 00 Yes [id number] 400mg Take 10 mL by mouth daily. [facility] magnesium oxide 40 mg/mL oral suspension 03-08 00:00: 00 Yes [id number] 400mg Take 10 mL by mouth daily. [facility] magnesium oxide 40 mg/mL oral suspension 03-08 00:00: 00 Yes [id number] 400mg Take 10 mL by mouth daily. [facility] magnesium oxide 40 mg/mL oral suspension 0 03-08 00:00: 00 Yes [id number] 400mg Take 10 mL by mouth daily. [facility] magnesium oxide 40 mg/mL oral suspension 03-08 00:00: 00 Yes [id number] 400mg Take 10 mL by mouth daily. [facility] magnesium oxide 40 mg/mL oral suspension 03-08 00:00: 00 Yes [id number] 400mg Take 10 mL by mouth daily. [facility] magnesium oxide 40 mg/mL oral suspension 03-08 00:00: 00 Yes [id number] 400mg Take 10 mL by mouth daily. [facility] magnesium oxide 40 mg/mL oral suspension 03-08 00:00: 00 Yes [id number] 400mg Take 10 mL by mouth daily. [facility] magnesium oxide 40 mg/mL oral suspension 03-08 00:00: 00 Yes [id number] 400mg Take 10 mL by mouth daily. [facility] magnesium oxide 40 mg/mL oral suspension 03-08 00:00: 00 Yes [id number] 400mg Take 10 mL by mouth daily. [facility] famotidine 20 mg tablet 03-08 00:00: 00 12-22 00:00 :00 No [id number] 20mg Take 1 tablet by mouth 2 (two) times daily. [facility] famotidine 20 mg tablet 03-08 00:00: 00 12-22 00:00 :00 No [id number] 20mg Take 1 tablet by mouth 2 (two) times daily. [facility] albuterol 90 mcg/actuati on inhaler 03-06 00:00: 00 Yes [id number] 2{puff} Inhale 2 Puffs every 6 (six) hours as needed for Wheezing or Shortness of Breath. [facility] albuterol 90 mcg/actuati on inhaler 03-06 00:00: 00 Yes [id number] 2{puff} Inhale 2 Puffs every 6 (six) hours as needed for Wheezing or Shortness of Breath. [facility] albuterol 90 mcg/actuati on inhaler 03-06 00:00: 00 Yes [id number] 2{puff} Inhale 2 Puffs every 6 (six) hours as needed for Wheezing or Shortness of Breath. [facility] albuterol 90 mcg/actuati on inhaler 03-06 00:00: 00 Yes [id number] 2{puff} Inhale 2 Puffs every 6 (six) hours as needed for Wheezing or Shortness of Breath. [facility] albuterol 90 mcg/actuati on inhaler 03-06 00:00: 00 Yes [id number] 2{puff} Inhale 2 Puffs every 6 (six) hours as needed for Wheezing or Shortness of Breath. [facility] albuterol 90 mcg/actuati on inhaler 03-06 00:00: 00 Yes [id number] 2{puff} Inhale 2 Puffs every 6 (six) hours as needed for Wheezing or Shortness of Breath. [facility] albuterol 90 mcg/actuati on inhaler 03-06 00:00: 00 Yes [id number] 2{puff} Inhale 2 Puffs every 6 (six) hours as needed for Wheezing or Shortness of Breath. [facility] albuterol 90 mcg/actuati on inhaler 03-06 00:00: 00 Yes [id number] 2{puff} Inhale 2 Puffs every 6 (six) hours as needed for Wheezing or Shortness of Breath. [facility] albuterol 90 mcg/actuati on inhaler 03-06 00:00: 00 Yes [id number] 2{puff} Inhale 2 Puffs every 6 (six) hours as needed for Wheezing or Shortness of Breath. [facility] albuterol 90 mcg/actuati on inhaler 03-06 00:00: 00 Yes [id number] 2{puff} Inhale 2 Puffs every 6 (six) hours as needed for Wheezing or Shortness of Breath. [facility] albuterol 90 mcg/actuati on inhaler 03-06 00:00: 00 Yes [id number] 2{puff} Inhale 2 Puffs every 6 (six) hours as needed for Wheezing or Shortness of Breath. [facility] albuterol 90 mcg/actuati on inhaler 03-06 00:00: 00 Yes [id number] 2{puff} Inhale 2 Puffs every 6 (six) hours as needed for Wheezing or Shortness of Breath. [facility] albuterol 90 mcg/actuati on inhaler 03-06 00:00: 00 Yes [id number] 2{puff} Inhale 2 Puffs every 6 (six) hours as needed for Wheezing or Shortness of Breath. [facility] albuterol 90 mcg/actuati on inhaler 03-06 00:00: 00 Yes [id number] 2{puff} Inhale 2 Puffs every 6 (six) hours as needed for Wheezing or Shortness of Breath. [facility] albuterol 90 mcg/actuati on inhaler 03-06 00:00: 00 Yes [id number] 2{puff} Inhale 2 Puffs every 6 (six) hours as needed for Wheezing or Shortness of Breath. [facility] albuterol 90 mcg/actuati on inhaler 03-06 00:00: 00 Yes [id number] 2{puff} Inhale 2 Puffs every 6 (six) hours as needed for Wheezing or Shortness of Breath. [facility] albuterol 90 mcg/actuati on inhaler 03-06 00:00: 00 Yes [id number] 2{puff} Inhale 2 Puffs every 6 (six) hours as needed for Wheezing or Shortness of Breath. [facility] albuterol 90 mcg/actuati on inhaler 03-06 00:00: 00 Yes [id number] 2{puff} Inhale 2 Puffs every 6 (six) hours as needed for Wheezing or Shortness of Breath. [facility] albuterol 90 mcg/actuati on inhaler 03-06 00:00: 00 Yes [id number] 2{puff} Inhale 2 Puffs every 6 (six) hours as needed for Wheezing or Shortness of Breath. [facility] albuterol 90 mcg/actuati on inhaler 03-06 00:00: 00 Yes [id number] 2{puff} Inhale 2 Puffs every 6 (six) hours as needed for Wheezing or Shortness of Breath. [facility] albuterol 90 mcg/actuati on inhaler 03-06 00:00: 00 Yes [id number] 2{puff} Inhale 2 Puffs every 6 (six) hours as needed for Wheezing or Shortness of Breath. [facility] albuterol 90 mcg/actuati on inhaler 03-06 00:00: 00 Yes [id number] 2{puff} Inhale 2 Puffs every 6 (six) hours as needed for Wheezing or Shortness of Breath. [facility] albuterol 90 mcg/actuati on inhaler 03-06 00:00: 00 Yes [id number] 2{puff} Inhale 2 Puffs every 6 (six) hours as needed for Wheezing or Shortness of Breath. [facility] albuterol 90 mcg/actuati on inhaler 03-06 00:00: 00 Yes [id number] 2{puff} Inhale 2 Puffs every 6 (six) hours as needed for Wheezing or Shortness of Breath. [facility] albuterol 90 mcg/actuati on inhaler 03-06 00:00: 00 Yes [id number] 2{puff} Inhale 2 Puffs every 6 (six) hours as needed for Wheezing or Shortness of Breath. [facility] albuterol 90 mcg/actuati on inhaler 03-06 00:00: 00 Yes [id number] 2{puff} Inhale 2 Puffs every 6 (six) hours as needed for Wheezing or Shortness of Breath. [facility] albuterol 90 mcg/actuati on inhaler 03-06 00:00: 00 Yes [id number] 2{puff} Inhale 2 Puffs every 6 (six) hours as needed for Wheezing or Shortness of Breath. [facility] albuterol 90 mcg/actuati on inhaler 03-06 00:00: 00 Yes [id number] 2{puff} Inhale 2 Puffs every 6 (six) hours as needed for Wheezing or Shortness of Breath. [facility] albuterol 90 mcg/actuati on inhaler 03-06 00:00: 00 Yes [id number] 2{puff} Inhale 2 Puffs every 6 (six) hours as needed for Wheezing or Shortness of Breath. [facility] albuterol 90 mcg/actuati on inhaler 03-06 00:00: 00 Yes [id number] 2{puff} Inhale 2 Puffs every 6 (six) hours as needed for Wheezing or Shortness of Breath. [facility] albuterol 90 mcg/actuati on inhaler 03-06 00:00: 00 Yes [id number] 2{puff} Inhale 2 Puffs every 6 (six) hours as needed for Wheezing or Shortness of Breath. [facility] albuterol 90 mcg/actuati on inhaler 03-06 00:00: 00 Yes [id number] 2{puff} Inhale 2 Puffs every 6 (six) hours as needed for Wheezing or Shortness of Breath. [facility] albuterol 90 mcg/actuati on inhaler 03-06 00:00: 00 Yes [id number] 2{puff} Inhale 2 Puffs every 6 (six) hours as needed for Wheezing or Shortness of Breath. [facility] albuterol 90 mcg/actuati on inhaler 03-06 00:00: 00 Yes [id number] 2{puff} Inhale 2 Puffs every 6 (six) hours as needed for Wheezing or Shortness of Breath. [facility] albuterol 90 mcg/actuati on inhaler 03-06 00:00: 00 Yes [id number] 2{puff} Inhale 2 Puffs every 6 (six) hours as needed for Wheezing or Shortness of Breath. [facility] albuterol 90 mcg/actuati on inhaler 03-06 00:00: 00 Yes [id number] 2{puff} Inhale 2 Puffs every 6 (six) hours as needed for Wheezing or Shortness of Breath. [facility] albuterol 90 mcg/actuati on inhaler 03-06 00:00: 00 Yes [id number] 2{puff} Inhale 2 Puffs every 6 (six) hours as needed for Wheezing or Shortness of Breath. [facility] albuterol 90 mcg/actuati on inhaler 03-06 00:00: 00 Yes [id number] 2{puff} Inhale 2 Puffs every 6 (six) hours as needed for Wheezing or Shortness of Breath. [facility] albuterol 90 mcg/actuati on inhaler 03-06 00:00: 00 Yes [id number] 2{puff} Inhale 2 Puffs every 6 (six) hours as needed for Wheezing or Shortness of Breath. [facility] albuterol 90 mcg/actuati on inhaler 03-06 00:00: 00 Yes [id number] 2{puff} Inhale 2 Puffs every 6 (six) hours as needed for Wheezing or Shortness of Breath. [facility] albuterol 90 mcg/actuati on inhaler 03-06 00:00: 00 Yes [id number] 2{puff} Inhale 2 Puffs every 6 (six) hours as needed for Wheezing or Shortness of Breath. [facility] albuterol 90 mcg/actuati on inhaler 03-06 00:00: 00 Yes [id number] 2{puff} Inhale 2 Puffs every 6 (six) hours as needed for Wheezing or Shortness of Breath. [facility] albuterol 90 mcg/actuati on inhaler 03-06 00:00: 00 Yes [id number] 2{puff} Inhale 2 Puffs every 6 (six) hours as needed for Wheezing or Shortness of Breath. [facility] albuterol 90 mcg/actuati on inhaler 03-06 00:00: 00 Yes [id number] 2{puff} Inhale 2 Puffs every 6 (six) hours as needed for Wheezing or Shortness of Breath. [facility] albuterol 90 mcg/actuati on inhaler 03-06 00:00: 00 Yes [id number] 2{puff} Inhale 2 Puffs every 6 (six) hours as needed for Wheezing or Shortness of Breath. [facility] albuterol 90 mcg/actuati on inhaler 03-06 00:00: 00 Yes [id number] 2{puff} Inhale 2 Puffs every 6 (six) hours as needed for Wheezing or Shortness of Breath. [facility] albuterol 90 mcg/actuati on inhaler 03-06 00:00: 00 Yes [id number] 2{puff} Inhale 2 Puffs every 6 (six) hours as needed for Wheezing or Shortness of Breath. [facility] albuterol 90 mcg/actuati on inhaler 03-06 00:00: 00 Yes [id number] 2{puff} Inhale 2 Puffs every 6 (six) hours as needed for Wheezing or Shortness of Breath. [facility] albuterol 90 mcg/actuati on inhaler 03-06 00:00: 00 Yes [id number] 2{puff} Inhale 2 Puffs every 6 (six) hours as needed for Wheezing or Shortness of Breath. [facility] albuterol 90 mcg/actuati on inhaler 03-06 00:00: 00 Yes [id number] 2{puff} Inhale 2 Puffs every 6 (six) hours as needed for Wheezing or Shortness of Breath. [facility] albuterol 90 mcg/actuati on inhaler 03-06 00:00: 00 Yes [id number] 2{puff} Inhale 2 Puffs every 6 (six) hours as needed for Wheezing or Shortness of Breath. [facility] albuterol 90 mcg/actuati on inhaler 03-06 00:00: 00 Yes [id number] 2{puff} Inhale 2 Puffs every 6 (six) hours as needed for Wheezing or Shortness of Breath. [facility] albuterol 90 mcg/actuati on inhaler 03-06 00:00: 00 Yes [id number] 2{puff} Inhale 2 Puffs every 6 (six) hours as needed for Wheezing or Shortness of Breath. [facility] albuterol 90 mcg/actuati on inhaler 03-06 00:00: 00 Yes [id number] 2{puff} Inhale 2 Puffs every 6 (six) hours as needed for Wheezing or Shortness of Breath. [facility] albuterol 90 mcg/actuati on inhaler 03-06 00:00: 00 Yes [id number] 2{puff} Inhale 2 Puffs every 6 (six) hours as needed for Wheezing or Shortness of Breath. [facility] albuterol 90 mcg/actuati on inhaler 03-06 00:00: 00 Yes [id number] 2{puff} Inhale 2 Puffs every 6 (six) hours as needed for Wheezing or Shortness of Breath. [facility] albuterol 90 mcg/actuati on inhaler 03-06 00:00: 00 Yes [id number] 2{puff} Inhale 2 Puffs every 6 (six) hours as needed for Wheezing or Shortness of Breath. [facility] albuterol 90 mcg/actuati on inhaler 03-06 00:00: 00 Yes [id number] 2{puff} Inhale 2 Puffs every 6 (six) hours as needed for Wheezing or Shortness of Breath. [facility] albuterol 90 mcg/actuati on inhaler 03-06 00:00: 00 Yes [id number] 2{puff} Inhale 2 Puffs every 6 (six) hours as needed for Wheezing or Shortness of Breath. [facility] albuterol 90 mcg/actuati on inhaler 03-06 00:00: 00 Yes [id number] 2{puff} Inhale 2 Puffs every 6 (six) hours as needed for Wheezing or Shortness of Breath. [facility] albuterol 90 mcg/actuati on inhaler 03-06 00:00: 00 Yes [id number] 2{puff} Inhale 2 Puffs every 6 (six) hours as needed for Wheezing or Shortness of Breath. [facility] albuterol 90 mcg/actuati on inhaler 03-06 00:00: 00 Yes [id number] 2{puff} Inhale 2 Puffs every 6 (six) hours as needed for Wheezing or Shortness of Breath. [facility] albuterol 90 mcg/actuati on inhaler 03-06 00:00: 00 Yes [id number] 2{puff} Inhale 2 Puffs every 6 (six) hours as needed for Wheezing or Shortness of Breath. [facility] albuterol 90 mcg/actuati on inhaler 03-06 00:00: 00 Yes [id number] 2{puff} Inhale 2 Puffs every 6 (six) hours as needed for Wheezing or Shortness of Breath. [facility] albuterol 90 mcg/actuati on inhaler 03-06 00:00: 00 Yes [id number] 2{puff} Inhale 2 Puffs every 6 (six) hours as needed for Wheezing or Shortness of Breath. [facility] albuterol 90 mcg/actuati on inhaler 03-06 00:00: 00 Yes [id number] 2{puff} Inhale 2 Puffs every 6 (six) hours as needed for Wheezing or Shortness of Breath. [facility] albuterol 90 mcg/actuati on inhaler 03-06 00:00: 00 Yes [id number] 2{puff} Inhale 2 Puffs every 6 (six) hours as needed for Wheezing or Shortness of Breath. [facility] albuterol 90 mcg/actuati on inhaler 03-06 00:00: 00 Yes [id number] 2{puff} Inhale 2 Puffs every 6 (six) hours as needed for Wheezing or Shortness of Breath. [facility] albuterol 90 mcg/actuati on inhaler 03-06 00:00: 00 Yes [id number] 2{puff} Inhale 2 Puffs every 6 (six) hours as needed for Wheezing or Shortness of Breath. [facility] albuterol 90 mcg/actuati on inhaler 03-06 00:00: 00 Yes [id number] 2{puff} Inhale 2 Puffs every 6 (six) hours as needed for Wheezing or Shortness of Breath. [facility] albuterol 90 mcg/actuati on inhaler 03-06 00:00: 00 Yes [id number] 2{puff} Inhale 2 Puffs every 6 (six) hours as needed for Wheezing or Shortness of Breath. [facility] albuterol 90 mcg/actuati on inhaler 03-06 00:00: 00 Yes [id number] 2{puff} Inhale 2 Puffs every 6 (six) hours as needed for Wheezing or Shortness of Breath. [facility] albuterol 90 mcg/actuati on inhaler 03-06 00:00: 00 Yes [id number] 2{puff} Inhale 2 Puffs every 6 (six) hours as needed for Wheezing or Shortness of Breath. [facility] albuterol 90 mcg/actuati on inhaler 03-06 00:00: 00 Yes [id number] 2{puff} Inhale 2 Puffs every 6 (six) hours as needed for Wheezing or Shortness of Breath. [facility] albuterol 90 mcg/actuati on inhaler 03-06 00:00: 00 Yes [id number] 2{puff} Inhale 2 Puffs every 6 (six) hours as needed for Wheezing or Shortness of Breath. [facility] albuterol 90 mcg/actuati on inhaler 03-06 00:00: 00 Yes [id number] 2{puff} Inhale 2 Puffs every 6 (six) hours as needed for Wheezing or Shortness of Breath. [facility] albuterol 90 mcg/actuati on inhaler 03-06 00:00: 00 Yes [id number] 2{puff} Inhale 2 Puffs every 6 (six) hours as needed for Wheezing or Shortness of Breath. [facility] albuterol 90 mcg/actuati on inhaler 03-06 00:00: 00 Yes [id number] 2{puff} Inhale 2 Puffs every 6 (six) hours as needed for Wheezing or Shortness of Breath. [facility] albuterol 90 mcg/actuati on inhaler 03-06 00:00: 00 Yes [id number] 2{puff} Inhale 2 Puffs every 6 (six) hours as needed for Wheezing or Shortness of Breath. [facility] albuterol 90 mcg/actuati on inhaler 03-06 00:00: 00 Yes [id number] 2{puff} Inhale 2 Puffs every 6 (six) hours as needed for Wheezing or Shortness of Breath. [facility] albuterol 90 mcg/actuati on inhaler 03-06 00:00: 00 Yes [id number] 2{puff} Inhale 2 Puffs every 6 (six) hours as needed for Wheezing or Shortness of Breath. [facility] albuterol 90 mcg/actuati on inhaler 03-06 00:00: 00 Yes [id number] 2{puff} Inhale 2 Puffs every 6 (six) hours as needed for Wheezing or Shortness of Breath. [facility] albuterol 90 mcg/actuati on inhaler 03-06 00:00: 00 Yes [id number] 2{puff} Inhale 2 Puffs every 6 (six) hours as needed for Wheezing or Shortness of Breath. [facility] albuterol 90 mcg/actuati on inhaler 03-06 00:00: 00 Yes [id number] 2{puff} Inhale 2 Puffs every 6 (six) hours as needed for Wheezing or Shortness of Breath. [facility] albuterol 90 mcg/actuati on inhaler 03-06 00:00: 00 Yes [id number] 2{puff} Inhale 2 Puffs every 6 (six) hours as needed for Wheezing or Shortness of Breath. [facility] albuterol 90 mcg/actuati on inhaler 03-06 00:00: 00 Yes [id number] 2{puff} Inhale 2 Puffs every 6 (six) hours as needed for Wheezing or Shortness of Breath. [facility] albuterol 90 mcg/actuati on inhaler 03-06 00:00: 00 Yes [id number] 2{puff} Inhale 2 Puffs every 6 (six) hours as needed for Wheezing or Shortness of Breath. [facility] albuterol 90 mcg/actuati on inhaler 03-06 00:00: 00 Yes [id number] 2{puff} Inhale 2 Puffs every 6 (six) hours as needed for Wheezing or Shortness of Breath. [facility] albuterol 90 mcg/actuati on inhaler 03-06 00:00: 00 Yes [id number] 2{puff} Inhale 2 Puffs every 6 (six) hours as needed for Wheezing or Shortness of Breath. [facility] albuterol 90 mcg/actuati on inhaler 03-06 00:00: 00 Yes [id number] 2{puff} Inhale 2 Puffs every 6 (six) hours as needed for Wheezing or Shortness of Breath. [facility] albuterol 90 mcg/actuati on inhaler 03-06 00:00: 00 Yes [id number] 2{puff} Inhale 2 Puffs every 6 (six) hours as needed for Wheezing or Shortness of Breath. [facility] albuterol 90 mcg/actuati on inhaler 03-06 00:00: 00 Yes [id number] 2{puff} Inhale 2 Puffs every 6 (six) hours as needed for Wheezing or Shortness of Breath. [facility] albuterol 90 mcg/actuati on inhaler 03-06 00:00: 00 Yes [id number] 2{puff} Inhale 2 Puffs every 6 (six) hours as needed for Wheezing or Shortness of Breath. [facility] albuterol 90 mcg/actuati on inhaler 03-06 00:00: 00 Yes [id number] 2{puff} Inhale 2 Puffs every 6 (six) hours as needed for Wheezing or Shortness of Breath. [facility] albuterol 90 mcg/actuati on inhaler 03-06 00:00: 00 Yes [id number] 2{puff} Inhale 2 Puffs every 6 (six) hours as needed for Wheezing or Shortness of Breath. [facility] albuterol 90 mcg/actuati on inhaler 03-06 00:00: 00 Yes [id number] 2{puff} Inhale 2 Puffs every 6 (six) hours as needed for Wheezing or Shortness of Breath. [facility] albuterol 90 mcg/actuati on inhaler 03-06 00:00: 00 Yes [id number] 2{puff} Inhale 2 Puffs every 6 (six) hours as needed for Wheezing or Shortness of Breath. [facility] albuterol 90 mcg/actuati on inhaler 03-06 00:00: 00 Yes [id number] 2{puff} Inhale 2 Puffs every 6 (six) hours as needed for Wheezing or Shortness of Breath. [facility] albuterol 90 mcg/actuati on inhaler 03-06 00:00: 00 Yes [id number] 2{puff} Inhale 2 Puffs every 6 (six) hours as needed for Wheezing or Shortness of Breath. [facility] albuterol 90 mcg/actuati on inhaler 03-06 00:00: 00 Yes [id number] 2{puff} Inhale 2 Puffs every 6 (six) hours as needed for Wheezing or Shortness of Breath. [facility] albuterol 90 mcg/actuati on inhaler 03-06 00:00: 00 Yes [id number] 2{puff} Inhale 2 Puffs every 6 (six) hours as needed for Wheezing or Shortness of Breath. [facility] albuterol 90 mcg/actuati on inhaler 03-06 00:00: 00 Yes [id number] 2{puff} Inhale 2 Puffs every 6 (six) hours as needed for Wheezing or Shortness of Breath. [facility] albuterol 90 mcg/actuati on inhaler 03-06 00:00: 00 Yes [id number] 2{puff} Inhale 2 Puffs every 6 (six) hours as needed for Wheezing or Shortness of Breath. [facility] albuterol 90 mcg/actuati on inhaler 03-06 00:00: 00 Yes [id number] 2{puff} Inhale 2 Puffs every 6 (six) hours as needed for Wheezing or Shortness of Breath. [facility] albuterol 90 mcg/actuati on inhaler 03-06 00:00: 00 Yes [id number] 2{puff} Inhale 2 Puffs every 6 (six) hours as needed for Wheezing or Shortness of Breath. [facility] albuterol 90 mcg/actuati on inhaler 03-06 00:00: 00 Yes [id number] 2{puff} Inhale 2 Puffs every 6 (six) hours as needed for Wheezing or Shortness of Breath. [facility] albuterol 90 mcg/actuati on inhaler 03-06 00:00: 00 Yes [id number] 2{puff} Inhale 2 Puffs every 6 (six) hours as needed for Wheezing or Shortness of Breath. [facility] albuterol 90 mcg/actuati on inhaler 03-06 00:00: 00 Yes [id number] 2{puff} Inhale 2 Puffs every 6 (six) hours as needed for Wheezing or Shortness of Breath. [facility] albuterol 90 mcg/actuati on inhaler 03-06 00:00: 00 Yes [id number] 2{puff} Inhale 2 Puffs every 6 (six) hours as needed for Wheezing or Shortness of Breath. [facility] albuterol 90 mcg/actuati on inhaler 03-06 00:00: 00 Yes [id number] 2{puff} Inhale 2 Puffs every 6 (six) hours as needed for Wheezing or Shortness of Breath. [facility] albuterol 90 mcg/actuati on inhaler 03-06 00:00: 00 Yes [id number] 2{puff} Inhale 2 Puffs every 6 (six) hours as needed for Wheezing or Shortness of Breath. [facility] albuterol 90 mcg/actuati on inhaler 03-06 00:00: 00 Yes [id number] 2{puff} Inhale 2 Puffs every 6 (six) hours as needed for Wheezing or Shortness of Breath. [facility] albuterol 90 mcg/actuati on inhaler 03-06 00:00: 00 Yes [id number] 2{puff} Inhale 2 Puffs every 6 (six) hours as needed for Wheezing or Shortness of Breath. [facility] albuterol 90 mcg/actuati on inhaler 03-06 00:00: 00 Yes [id number] 2{puff} Inhale 2 Puffs every 6 (six) hours as needed for Wheezing or Shortness of Breath. [facility] albuterol 90 mcg/actuati on inhaler 03-06 00:00: 00 Yes [id number] 2{puff} Inhale 2 Puffs every 6 (six) hours as needed for Wheezing or Shortness of Breath. [facility] albuterol 90 mcg/actuati on inhaler 03-06 00:00: 00 Yes [id number] 2{puff} Inhale 2 Puffs every 6 (six) hours as needed for Wheezing or Shortness of Breath. [facility] albuterol 90 mcg/actuati on inhaler 03-06 00:00: 00 Yes [id number] 2{puff} Inhale 2 Puffs every 6 (six) hours as needed for Wheezing or Shortness of Breath. [facility] albuterol 90 mcg/actuati on inhaler 03-06 00:00: 00 Yes [id number] 2{puff} Inhale 2 Puffs every 6 (six) hours as needed for Wheezing or Shortness of Breath. [facility] albuterol 90 mcg/actuati on inhaler 03-06 00:00: 00 Yes [id number] 2{puff} Inhale 2 Puffs every 6 (six) hours as needed for Wheezing or Shortness of Breath. [facility] albuterol 90 mcg/actuati on inhaler 03-06 00:00: 00 Yes [id number] 2{puff} Inhale 2 Puffs every 6 (six) hours as needed for Wheezing or Shortness of Breath. [facility] albuterol 90 mcg/actuati on inhaler 03-06 00:00: 00 Yes [id number] 2{puff} Inhale 2 Puffs every 6 (six) hours as needed for Wheezing or Shortness of Breath. [facility] albuterol 90 mcg/actuati on inhaler 03-06 00:00: 00 Yes [id number] 2{puff} Inhale 2 Puffs every 6 (six) hours as needed for Wheezing or Shortness of Breath. [facility] albuterol 90 mcg/actuati on inhaler 03-06 00:00: 00 Yes [id number] 2{puff} Inhale 2 Puffs every 6 (six) hours as needed for Wheezing or Shortness of Breath. [facility] albuterol 90 mcg/actuati on inhaler 03-06 00:00: 00 Yes [id number] 2{puff} Inhale 2 Puffs every 6 (six) hours as needed for Wheezing or Shortness of Breath. [facility] albuterol 90 mcg/actuati on inhaler 03-06 00:00: 00 Yes [id number] 2{puff} Inhale 2 Puffs every 6 (six) hours as needed for Wheezing or Shortness of Breath. [facility] albuterol 90 mcg/actuati on inhaler 03-06 00:00: 00 Yes [id number] 2{puff} Inhale 2 Puffs every 6 (six) hours as needed for Wheezing or Shortness of Breath. [facility] albuterol 90 mcg/actuati on inhaler 03-06 00:00: 00 Yes [id number] 2{puff} Inhale 2 Puffs every 6 (six) hours as needed for Wheezing or Shortness of Breath. [facility] albuterol 90 mcg/actuati on inhaler 03-06 00:00: 00 Yes [id number] 2{puff} Inhale 2 Puffs every 6 (six) hours as needed for Wheezing or Shortness of Breath. [facility] albuterol 90 mcg/actuati on inhaler 03-06 00:00: 00 Yes [id number] 2{puff} Inhale 2 Puffs every 6 (six) hours as needed for Wheezing or Shortness of Breath. [facility] albuterol 90 mcg/actuati on inhaler 03-06 00:00: 00 Yes [id number] 2{puff} Inhale 2 Puffs every 6 (six) hours as needed for Wheezing or Shortness of Breath. [facility] albuterol 90 mcg/actuati on inhaler 03-06 00:00: 00 Yes [id number] 2{puff} Inhale 2 Puffs every 6 (six) hours as needed for Wheezing or Shortness of Breath. [facility] albuterol 90 mcg/actuati on inhaler 03-06 00:00: 00 Yes [id number] 2{puff} Inhale 2 Puffs every 6 (six) hours as needed for Wheezing or Shortness of Breath. [facility] albuterol 90 mcg/actuati on inhaler 03-06 00:00: 00 Yes [id number] 2{puff} Inhale 2 Puffs every 6 (six) hours as needed for Wheezing or Shortness of Breath. [facility] albuterol 90 mcg/actuati on inhaler 03-06 00:00: 00 Yes [id number] 2{puff} Inhale 2 Puffs every 6 (six) hours as needed for Wheezing or Shortness of Breath. [facility] albuterol 90 mcg/actuati on inhaler 03-06 00:00: 00 Yes [id number] 2{puff} Inhale 2 Puffs every 6 (six) hours as needed for Wheezing or Shortness of Breath. [facility] albuterol 90 mcg/actuati on inhaler 03-06 00:00: 00 Yes [id number] 2{puff} Inhale 2 Puffs every 6 (six) hours as needed for Wheezing or Shortness of Breath. [facility] albuterol 90 mcg/actuati on inhaler 03-06 00:00: 00 Yes [id number] 2{puff} Inhale 2 Puffs every 6 (six) hours as needed for Wheezing or Shortness of Breath. [facility] albuterol 90 mcg/actuati on inhaler 03-06 00:00: 00 Yes [id number] 2{puff} Inhale 2 Puffs every 6 (six) hours as needed for Wheezing or Shortness of Breath. [facility] albuterol 90 mcg/actuati on inhaler 03-06 00:00: 00 Yes [id number] 2{puff} Inhale 2 Puffs every 6 (six) hours as needed for Wheezing or Shortness of Breath. [facility] albuterol 90 mcg/actuati on inhaler 03-06 00:00: 00 Yes [id number] 2{puff} Inhale 2 Puffs every 6 (six) hours as needed for Wheezing or Shortness of Breath. [facility] albuterol 90 mcg/actuati on inhaler 03-06 00:00: 00 Yes [id number] 2{puff} Inhale 2 Puffs every 6 (six) hours as needed for Wheezing or Shortness of Breath. [facility] albuterol 90 mcg/actuati on inhaler 03-06 00:00: 00 Yes [id number] 2{puff} Inhale 2 Puffs every 6 (six) hours as needed for Wheezing or Shortness of Breath. [facility] albuterol 90 mcg/actuati on inhaler 03-06 00:00: 00 Yes [id number] 2{puff} Inhale 2 Puffs every 6 (six) hours as needed for Wheezing or Shortness of Breath. [facility] albuterol 90 mcg/actuati on inhaler 03-06 00:00: 00 Yes [id number] 2{puff} Inhale 2 Puffs every 6 (six) hours as needed for Wheezing or Shortness of Breath. [facility] albuterol 90 mcg/actuati on inhaler 03-06 00:00: 00 Yes [id number] 2{puff} Inhale 2 Puffs every 6 (six) hours as needed for Wheezing or Shortness of Breath. [facility] albuterol 90 mcg/actuati on inhaler 03-06 00:00: 00 Yes [id number] 2{puff} Inhale 2 Puffs every 6 (six) hours as needed for Wheezing or Shortness of Breath. [facility] albuterol 90 mcg/actuati on inhaler 03-06 00:00: 00 Yes [id number] 2{puff} Inhale 2 Puffs every 6 (six) hours as needed for Wheezing or Shortness of Breath. [facility] albuterol 90 mcg/actuati on inhaler 03-06 00:00: 00 Yes [id number] 2{puff} Inhale 2 Puffs every 6 (six) hours as needed for Wheezing or Shortness of Breath. [facility] albuterol 90 mcg/actuati on inhaler 03-06 00:00: 00 Yes [id number] 2{puff} Inhale 2 Puffs every 6 (six) hours as needed for Wheezing or Shortness of Breath. [facility] albuterol 90 mcg/actuati on inhaler 03-06 00:00: 00 Yes [id number] 2{puff} Inhale 2 Puffs every 6 (six) hours as needed for Wheezing or Shortness of Breath. [facility] albuterol 90 mcg/actuati on inhaler 03-06 00:00: 00 Yes [id number] 2{puff} Inhale 2 Puffs every 6 (six) hours as needed for Wheezing or Shortness of Breath. [facility] albuterol 90 mcg/actuati on inhaler 03-06 00:00: 00 Yes [id number] 2{puff} Inhale 2 Puffs every 6 (six) hours as needed for Wheezing or Shortness of Breath. [facility] albuterol 90 mcg/actuati on inhaler 03-06 00:00: 00 Yes [id number] 2{puff} Inhale 2 Puffs every 6 (six) hours as needed for Wheezing or Shortness of Breath. [facility] albuterol 90 mcg/actuati on inhaler 03-06 00:00: 00 Yes [id number] 2{puff} Inhale 2 Puffs every 6 (six) hours as needed for Wheezing or Shortness of Breath. [facility] albuterol 90 mcg/actuati on inhaler 03-06 00:00: 00 Yes [id number] 2{puff} Inhale 2 Puffs every 6 (six) hours as needed for Wheezing or Shortness of Breath. [facility] albuterol 90 mcg/actuati on inhaler 03-06 00:00: 00 Yes [id number] 2{puff} Inhale 2 Puffs every 6 (six) hours as needed for Wheezing or Shortness of Breath. [facility] albuterol 90 mcg/actuati on inhaler 03-06 00:00: 00 Yes [id number] 2{puff} Inhale 2 Puffs every 6 (six) hours as needed for Wheezing or Shortness of Breath. [facility] albuterol 90 mcg/actuati on inhaler 03-06 00:00: 00 Yes [id number] 2{puff} Inhale 2 Puffs every 6 (six) hours as needed for Wheezing or Shortness of Breath. [facility] albuterol 90 mcg/actuati on inhaler 03-06 00:00: 00 Yes [id number] 2{puff} Inhale 2 Puffs every 6 (six) hours as needed for Wheezing or Shortness of Breath. [facility] albuterol 90 mcg/actuati on inhaler 03-06 00:00: 00 Yes [id number] 2{puff} Inhale 2 Puffs every 6 (six) hours as needed for Wheezing or Shortness of Breath. [facility] albuterol 90 mcg/actuati on inhaler 03-06 00:00: 00 Yes [id number] 2{puff} Inhale 2 Puffs every 6 (six) hours as needed for Wheezing or Shortness of Breath. [facility] albuterol 90 mcg/actuati on inhaler 03-06 00:00: 00 Yes [id number] 2{puff} Inhale 2 Puffs every 6 (six) hours as needed for Wheezing or Shortness of Breath. [facility] albuterol 90 mcg/actuati on inhaler 03-06 00:00: 00 Yes [id number] 2{puff} Inhale 2 Puffs every 6 (six) hours as needed for Wheezing or Shortness of Breath. [facility] albuterol 90 mcg/actuati on inhaler 03-06 00:00: 00 Yes [id number] 2{puff} Inhale 2 Puffs every 6 (six) hours as needed for Wheezing or Shortness of Breath. [facility] albuterol 90 mcg/actuati on inhaler 03-06 00:00: 00 Yes [id number] 2{puff} Inhale 2 Puffs every 6 (six) hours as needed for Wheezing or Shortness of Breath. [facility] albuterol 90 mcg/actuati on inhaler 03-06 00:00: 00 Yes [id number] 2{puff} Inhale 2 Puffs every 6 (six) hours as needed for Wheezing or Shortness of Breath. [facility] albuterol 90 mcg/actuati on inhaler 03-06 00:00: 00 Yes [id number] 2{puff} Inhale 2 Puffs every 6 (six) hours as needed for Wheezing or Shortness of Breath. [facility] albuterol 90 mcg/actuati on inhaler 03-06 00:00: 00 Yes [id number] 2{puff} Inhale 2 Puffs every 6 (six) hours as needed for Wheezing or Shortness of Breath. [facility] albuterol 90 mcg/actuati on inhaler 03-06 00:00: 00 Yes [id number] 2{puff} Inhale 2 Puffs every 6 (six) hours as needed for Wheezing or Shortness of Breath. [facility] albuterol 90 mcg/actuati on inhaler 03-06 00:00: 00 Yes [id number] 2{puff} Inhale 2 Puffs every 6 (six) hours as needed for Wheezing or Shortness of Breath. [facility] albuterol 90 mcg/actuati on inhaler 03-06 00:00: 00 Yes [id number] 2{puff} Inhale 2 Puffs every 6 (six) hours as needed for Wheezing or Shortness of Breath. [facility] albuterol 90 mcg/actuati on inhaler 03-06 00:00: 00 Yes [id number] 2{puff} Inhale 2 Puffs every 6 (six) hours as needed for Wheezing or Shortness of Breath. [facility] albuterol 90 mcg/actuati on inhaler 03-06 00:00: 00 Yes [id number] 2{puff} Inhale 2 Puffs every 6 (six) hours as needed for Wheezing or Shortness of Breath. [facility] albuterol 90 mcg/actuati on inhaler 03-06 00:00: 00 Yes [id number] 2{puff} Inhale 2 Puffs every 6 (six) hours as needed for Wheezing or Shortness of Breath. [facility] albuterol 90 mcg/actuati on inhaler 03-06 00:00: 00 Yes [id number] 2{puff} Inhale 2 Puffs every 6 (six) hours as needed for Wheezing or Shortness of Breath. [facility] albuterol 90 mcg/actuati on inhaler 03-06 00:00: 00 Yes [id number] 2{puff} Inhale 2 Puffs every 6 (six) hours as needed for Wheezing or Shortness of Breath. [facility] albuterol 90 mcg/actuati on inhaler 03-06 00:00: 00 Yes [id number] 2{puff} Inhale 2 Puffs every 6 (six) hours as needed for Wheezing or Shortness of Breath. [facility] albuterol 90 mcg/actuati on inhaler 03-06 00:00: 00 Yes [id number] 2{puff} Inhale 2 Puffs every 6 (six) hours as needed for Wheezing or Shortness of Breath. [facility] albuterol 90 mcg/actuati on inhaler 03-06 00:00: 00 Yes [id number] 2{puff} Inhale 2 Puffs every 6 (six) hours as needed for Wheezing or Shortness of Breath. [facility] albuterol 90 mcg/actuati on inhaler 03-06 00:00: 00 Yes [id number] 2{puff} Inhale 2 Puffs every 6 (six) hours as needed for Wheezing or Shortness of Breath. [facility] albuterol 90 mcg/actuati on inhaler 03-06 00:00: 00 Yes [id number] 2{puff} Inhale 2 Puffs every 6 (six) hours as needed for Wheezing or Shortness of Breath. [facility] albuterol 90 mcg/actuati on inhaler 03-06 00:00: 00 Yes [id number] 2{puff} Inhale 2 Puffs every 6 (six) hours as needed for Wheezing or Shortness of Breath. [facility] albuterol 90 mcg/actuati on inhaler 03-06 00:00: 00 Yes [id number] 2{puff} Inhale 2 Puffs every 6 (six) hours as needed for Wheezing or Shortness of Breath. [facility] albuterol 90 mcg/actuati on inhaler 03-06 00:00: 00 Yes [id number] 2{puff} Inhale 2 Puffs every 6 (six) hours as needed for Wheezing or Shortness of Breath. [facility] albuterol 90 mcg/actuati on inhaler 03-06 00:00: 00 Yes [id number] 2{puff} Inhale 2 Puffs every 6 (six) hours as needed for Wheezing or Shortness of Breath. [facility] albuterol 90 mcg/actuati on inhaler 03-06 00:00: 00 Yes [id number] 2{puff} Inhale 2 Puffs every 6 (six) hours as needed for Wheezing or Shortness of Breath. [facility] albuterol 90 mcg/actuati on inhaler 03-06 00:00: 00 Yes [id number] 2{puff} Inhale 2 Puffs every 6 (six) hours as needed for Wheezing or Shortness of Breath. [facility] albuterol 90 mcg/actuati on inhaler 03-06 00:00: 00 Yes [id number] 2{puff} Inhale 2 Puffs every 6 (six) hours as needed for Wheezing or Shortness of Breath. [facility] albuterol 90 mcg/actuati on inhaler 03-06 00:00: 00 Yes [id number] 2{puff} Inhale 2 Puffs every 6 (six) hours as needed for Wheezing or Shortness of Breath. [facility] albuterol 90 mcg/actuati on inhaler 03-06 00:00: 00 Yes [id number] 2{puff} Inhale 2 Puffs every 6 (six) hours as needed for Wheezing or Shortness of Breath. [facility] albuterol 90 mcg/actuati on inhaler 03-06 00:00: 00 Yes [id number] 2{puff} Inhale 2 Puffs every 6 (six) hours as needed for Wheezing or Shortness of Breath. [facility] albuterol 90 mcg/actuati on inhaler 03-06 00:00: 00 Yes [id number] 2{puff} Inhale 2 Puffs every 6 (six) hours as needed for Wheezing or Shortness of Breath. [facility] albuterol 90 mcg/actuati on inhaler 03-06 00:00: 00 Yes [id number] 2{puff} Inhale 2 Puffs every 6 (six) hours as needed for Wheezing or Shortness of Breath. [facility] albuterol 90 mcg/actuati on inhaler 03-06 00:00: 00 Yes [id number] 2{puff} Inhale 2 Puffs every 6 (six) hours as needed for Wheezing or Shortness of Breath. [facility] albuterol 90 mcg/actuati on inhaler 03-06 00:00: 00 Yes [id number] 2{puff} Inhale 2 Puffs every 6 (six) hours as needed for Wheezing or Shortness of Breath. [facility] albuterol 90 mcg/actuati on inhaler 03-06 00:00: 00 Yes [id number] 2{puff} Inhale 2 Puffs every 6 (six) hours as needed for Wheezing or Shortness of Breath. [facility] albuterol 90 mcg/actuati on inhaler 03-06 00:00: 00 Yes [id number] 2{puff} Inhale 2 Puffs every 6 (six) hours as needed for Wheezing or Shortness of Breath. [facility] albuterol 90 mcg/actuati on inhaler 03-06 00:00: 00 Yes [id number] 2{puff} Inhale 2 Puffs every 6 (six) hours as needed for Wheezing or Shortness of Breath. [facility] albuterol 90 mcg/actuati on inhaler 03-06 00:00: 00 Yes [id number] 2{puff} Inhale 2 Puffs every 6 (six) hours as needed for Wheezing or Shortness of Breath. [facility] albuterol 90 mcg/actuati on inhaler 03-06 00:00: 00 Yes [id number] 2{puff} Inhale 2 Puffs every 6 (six) hours as needed for Wheezing or Shortness of Breath. [facility] albuterol 90 mcg/actuati on inhaler 03-06 00:00: 00 Yes [id number] 2{puff} Inhale 2 Puffs every 6 (six) hours as needed for Wheezing or Shortness of Breath. [facility] albuterol 90 mcg/actuati on inhaler 03-06 00:00: 00 Yes [id number] 2{puff} Inhale 2 Puffs every 6 (six) hours as needed for Wheezing or Shortness of Breath. [facility] albuterol 90 mcg/actuati on inhaler 03-06 00:00: 00 Yes [id number] 2{puff} Inhale 2 Puffs every 6 (six) hours as needed for Wheezing or Shortness of Breath. [facility] albuterol 90 mcg/actuati on inhaler 03-06 00:00: 00 Yes [id number] 2{puff} Inhale 2 Puffs every 6 (six) hours as needed for Wheezing or Shortness of Breath. [facility] albuterol 90 mcg/actuati on inhaler 03-06 00:00: 00 Yes [id number] 2{puff} Inhale 2 Puffs every 6 (six) hours as needed for Wheezing or Shortness of Breath. [facility] albuterol 90 mcg/actuati on inhaler 03-06 00:00: 00 Yes [id number] 2{puff} Inhale 2 Puffs every 6 (six) hours as needed for Wheezing or Shortness of Breath. [facility] albuterol 90 mcg/actuati on inhaler 03-06 00:00: 00 Yes [id number] 2{puff} Inhale 2 Puffs every 6 (six) hours as needed for Wheezing or Shortness of Breath. [facility] albuterol 90 mcg/actuati on inhaler 03-06 00:00: 00 Yes [id number] 2{puff} Inhale 2 Puffs every 6 (six) hours as needed for Wheezing or Shortness of Breath. [facility] albuterol 90 mcg/actuati on inhaler 03-06 00:00: 00 Yes [id number] 2{puff} Inhale 2 Puffs every 6 (six) hours as needed for Wheezing or Shortness of Breath. [facility] albuterol 90 mcg/actuati on inhaler 03-06 00:00: 00 Yes [id number] 2{puff} Inhale 2 Puffs every 6 (six) hours as needed for Wheezing or Shortness of Breath. [facility] albuterol 90 mcg/actuati on inhaler 03-06 00:00: 00 Yes [id number] 2{puff} Inhale 2 Puffs every 6 (six) hours as needed for Wheezing or Shortness of Breath. [facility] albuterol 90 mcg/actuati on inhaler 03-06 00:00: 00 Yes [id number] 2{puff} Inhale 2 Puffs every 6 (six) hours as needed for Wheezing or Shortness of Breath. [facility] albuterol 90 mcg/actuati on inhaler 03-06 00:00: 00 Yes [id number] 2{puff} Inhale 2 Puffs every 6 (six) hours as needed for Wheezing or Shortness of Breath. [facility] albuterol 90 mcg/actuati on inhaler 03-06 00:00: 00 Yes [id number] 2{puff} Inhale 2 Puffs every 6 (six) hours as needed for Wheezing or Shortness of Breath. [facility] albuterol 90 mcg/actuati on inhaler 03-06 00:00: 00 Yes [id number] 2{puff} Inhale 2 Puffs every 6 (six) hours as needed for Wheezing or Shortness of Breath. [facility] albuterol 90 mcg/actuati on inhaler 03-06 00:00: 00 Yes [id number] 2{puff} Inhale 2 Puffs every 6 (six) hours as needed for Wheezing or Shortness of Breath. [facility] albuterol 90 mcg/actuati on inhaler 03-06 00:00: 00 Yes [id number] 2{puff} Inhale 2 Puffs every 6 (six) hours as needed for Wheezing or Shortness of Breath. [facility] albuterol 90 mcg/actuati on inhaler 03-06 00:00: 00 Yes [id number] 2{puff} Inhale 2 Puffs every 6 (six) hours as needed for Wheezing or Shortness of Breath. [facility] albuterol 90 mcg/actuati on inhaler 03-06 00:00: 00 Yes [id number] 2{puff} Inhale 2 Puffs every 6 (six) hours as needed for Wheezing or Shortness of Breath. [facility] albuterol 90 mcg/actuati on inhaler 03-06 00:00: 00 Yes [id number] 2{puff} Inhale 2 Puffs every 6 (six) hours as needed for Wheezing or Shortness of Breath. [facility] albuterol 90 mcg/actuati on inhaler 03-06 00:00: 00 Yes [id number] 2{puff} Inhale 2 Puffs every 6 (six) hours as needed for Wheezing or Shortness of Breath. [facility] albuterol 90 mcg/actuati on inhaler 03-06 00:00: 00 Yes [id number] 2{puff} Inhale 2 Puffs every 6 (six) hours as needed for Wheezing or Shortness of Breath. [facility] albuterol 90 mcg/actuati on inhaler 03-06 00:00: 00 Yes [id number] 2{puff} Inhale 2 Puffs every 6 (six) hours as needed for Wheezing or Shortness of Breath. [facility] albuterol 90 mcg/actuati on inhaler 03-06 00:00: 00 Yes [id number] 2{puff} Inhale 2 Puffs every 6 (six) hours as needed for Wheezing or Shortness of Breath. [facility] albuterol 90 mcg/actuati on inhaler 03-06 00:00: 00 Yes [id number] 2{puff} Inhale 2 Puffs every 6 (six) hours as needed for Wheezing or Shortness of Breath. [facility] albuterol 90 mcg/actuati on inhaler 03-06 00:00: 00 Yes [id number] 2{puff} Inhale 2 Puffs every 6 (six) hours as needed for Wheezing or Shortness of Breath. [facility] albuterol 90 mcg/actuati on inhaler 03-06 00:00: 00 Yes [id number] 2{puff} Inhale 2 Puffs every 6 (six) hours as needed for Wheezing or Shortness of Breath. [facility] albuterol 90 mcg/actuati on inhaler 03-06 00:00: 00 Yes [id number] 2{puff} Inhale 2 Puffs every 6 (six) hours as needed for Wheezing or Shortness of Breath. [facility] albuterol 90 mcg/actuati on inhaler 03-06 00:00: 00 Yes [id number] 2{puff} Inhale 2 Puffs every 6 (six) hours as needed for Wheezing or Shortness of Breath. [facility] albuterol 90 mcg/actuati on inhaler 03-06 00:00: 00 Yes [id number] 2{puff} Inhale 2 Puffs every 6 (six) hours as needed for Wheezing or Shortness of Breath. [facility] albuterol 90 mcg/actuati on inhaler 03-06 00:00: 00 Yes [id number] 2{puff} Inhale 2 Puffs every 6 (six) hours as needed for Wheezing or Shortness of Breath. [facility] albuterol 90 mcg/actuati on inhaler 03-06 00:00: 00 Yes [id number] 2{puff} Inhale 2 Puffs every 6 (six) hours as needed for Wheezing or Shortness of Breath. [facility] albuterol 90 mcg/actuati on inhaler 03-06 00:00: 00 Yes [id number] 2{puff} Inhale 2 Puffs every 6 (six) hours as needed for Wheezing or Shortness of Breath. [facility] albuterol 90 mcg/actuati on inhaler 03-06 00:00: 00 Yes [id number] 2{puff} Inhale 2 Puffs every 6 (six) hours as needed for Wheezing or Shortness of Breath. [facility] albuterol 90 mcg/actuati on inhaler 03-06 00:00: 00 Yes [id number] 2{puff} Inhale 2 Puffs every 6 (six) hours as needed for Wheezing or Shortness of Breath. [facility] albuterol 90 mcg/actuati on inhaler 03-06 00:00: 00 Yes [id number] 2{puff} Inhale 2 Puffs every 6 (six) hours as needed for Wheezing or Shortness of Breath. [facility] albuterol 90 mcg/actuati on inhaler 03-06 00:00: 00 05-21 00:00 :00 No [id number] 2{puff} Inhale 2 Puffs every 6 (six) hours as needed for Wheezing or Shortness of Breath. [facility] diphenoxyla te-atropine 2.5-0.025 mg tablet 01-28 00:00: 00 Yes [id number] 1{tbl} Take 1 tablet by mouth every 6 (six) hours as needed (Diarrhea refractory to loperamide ). [facility] diphenoxyla te-atropine 2.5-0.025 mg tablet 01-28 00:00: 00 Yes [id number] 1{tbl} Take 1 tablet by mouth every 6 (six) hours as needed (Diarrhea refractory to loperamide ). [facility] diphenoxyla te-atropine 2.5-0.025 mg tablet 01-28 00:00: 00 Yes [id number] 1{tbl} Take 1 tablet by mouth every 6 (six) hours as needed (Diarrhea refractory to loperamide ). [facility] diphenoxyla te-atropine 2.5-0.025 mg tablet 01-28 00:00: 00 Yes [id number] 1{tbl} Take 1 tablet by mouth every 6 (six) hours as needed (Diarrhea refractory to loperamide ). [facility] diphenoxyla te-atropine 2.5-0.025 mg tablet 01-28 00:00: 00 Yes [id number] 1{tbl} Take 1 tablet by mouth every 6 (six) hours as needed (Diarrhea refractory to loperamide ). [facility] diphenoxyla te-atropine 2.5-0.025 mg tablet 01-28 00:00: 00 Yes [id number] 1{tbl} Take 1 tablet by mouth every 6 (six) hours as needed (Diarrhea refractory to loperamide ). [facility] diphenoxyla te-atropine 2.5-0.025 mg tablet 01-28 00:00: 00 Yes [id number] 1{tbl} Take 1 tablet by mouth every 6 (six) hours as needed (Diarrhea refractory to loperamide ). [facility] diphenoxyla te-atropine 2.5-0.025 mg tablet 01-28 00:00: 00 Yes [id number] 1{tbl} Take 1 tablet by mouth every 6 (six) hours as needed (Diarrhea refractory to loperamide ). [facility] diphenoxyla te-atropine 2.5-0.025 mg tablet 01-28 00:00: 00 Yes [id number] 04 1{tbl} Take 1 tablet by mouth every 6 (six) hours as needed (Diarrhea refractory to loperamide ). [facility] diphenoxyla te-atropine 2.5-0.025 mg tablet 01-28 00:00: 00 Yes [id number] 04 1{tbl} Take 1 tablet by mouth every 6 (six) hours as needed (Diarrhea refractory to loperamide ). [facility] diphenoxyla te-atropine 2.5-0.025 mg tablet 01-28 00:00: 00 Yes [id number] 04 1{tbl} Take 1 tablet by mouth every 6 (six) hours as needed (Diarrhea refractory to loperamide ). [facility] diphenoxyla te-atropine 2.5-0.025 mg tablet 01-28 00:00: 00 Yes [id number] 04 1{tbl} Take 1 tablet by mouth every 6 (six) hours as needed (Diarrhea refractory to loperamide ). [facility] diphenoxyla te-atropine 2.5-0.025 mg tablet 01-28 00:00: 00 Yes [id number] 04 1{tbl} Take 1 tablet by mouth every 6 (six) hours as needed (Diarrhea refractory to loperamide ). [facility] diphenoxyla te-atropine 2.5-0.025 mg tablet 01-28 00:00: 00 Yes [id number] 04 1{tbl} Take 1 tablet by mouth every 6 (six) hours as needed (Diarrhea refractory to loperamide ). [facility] diphenoxyla te-atropine 2.5-0.025 mg tablet 01-28 00:00: 00 Yes [id number] 04 1{tbl} Take 1 tablet by mouth every 6 (six) hours as needed (Diarrhea refractory to loperamide ). [facility] diphenoxyla te-atropine 2.5-0.025 mg tablet 01-28 00:00: 00 Yes [id number] 04 1{tbl} Take 1 tablet by mouth every 6 (six) hours as needed (Diarrhea refractory to loperamide ). [facility] diphenoxyla te-atropine 2.5-0.025 mg tablet 01-28 00:00: 00 Yes [id number] 04 1{tbl} Take 1 tablet by mouth every 6 (six) hours as needed (Diarrhea refractory to loperamide ). [facility] diphenoxyla te-atropine 2.5-0.025 mg tablet 01-28 00:00: 00 Yes [id number] 04 1{tbl} Take 1 tablet by mouth every 6 (six) hours as needed (Diarrhea refractory to loperamide ). [facility] diphenoxyla te-atropine 2.5-0.025 mg tablet 01-28 00:00: 00 Yes [id number] 04 1{tbl} Take 1 tablet by mouth every 6 (six) hours as needed (Diarrhea refractory to loperamide ). [facility] diphenoxyla te-atropine 2.5-0.025 mg tablet 01-28 00:00: 00 Yes [id number] 04 1{tbl} Take 1 tablet by mouth every 6 (six) hours as needed (Diarrhea refractory to loperamide ). [facility] diphenoxyla te-atropine 2.5-0.025 mg tablet 01-28 00:00: 00 Yes [id number] 04 1{tbl} Take 1 tablet by mouth every 6 (six) hours as needed (Diarrhea refractory to loperamide ). [facility] diphenoxyla te-atropine 2.5-0.025 mg tablet 01-28 00:00: 00 Yes [id number] 04 1{tbl} Take 1 tablet by mouth every 6 (six) hours as needed (Diarrhea refractory to loperamide ). [facility] diphenoxyla te-atropine 2.5-0.025 mg tablet 01-28 00:00: 00 Yes [id number] 04 1{tbl} Take 1 tablet by mouth every 6 (six) hours as needed (Diarrhea refractory to loperamide ). [facility] diphenoxyla te-atropine 2.5-0.025 mg tablet 01-28 00:00: 00 Yes [id number] 04 1{tbl} Take 1 tablet by mouth every 6 (six) hours as needed (Diarrhea refractory to loperamide ). [facility] diphenoxyla te-atropine 2.5-0.025 mg tablet 01-28 00:00: 00 Yes [id number] 04 1{tbl} Take 1 tablet by mouth every 6 (six) hours as needed (Diarrhea refractory to loperamide ). [facility] diphenoxyla te-atropine 2.5-0.025 mg tablet 01-28 00:00: 00 Yes [id number] 04 1{tbl} Take 1 tablet by mouth every 6 (six) hours as needed (Diarrhea refractory to loperamide ). [facility] diphenoxyla te-atropine 2.5-0.025 mg tablet 01-28 00:00: 00 Yes [id number] 04 1{tbl} Take 1 tablet by mouth every 6 (six) hours as needed (Diarrhea refractory to loperamide ). [facility] diphenoxyla te-atropine 2.5-0.025 mg tablet 01-28 00:00: 00 Yes [id number] 04 1{tbl} Take 1 tablet by mouth every 6 (six) hours as needed (Diarrhea refractory to loperamide ). [facility] diphenoxyla te-atropine 2.5-0.025 mg tablet 01-28 00:00: 00 Yes [id number] 04 1{tbl} Take 1 tablet by mouth every 6 (six) hours as needed (Diarrhea refractory to loperamide ). [facility] diphenoxyla te-atropine 2.5-0.025 mg tablet 01-28 00:00: 00 Yes [id number] 04 1{tbl} Take 1 tablet by mouth every 6 (six) hours as needed (Diarrhea refractory to loperamide ). [facility] diphenoxyla te-atropine 2.5-0.025 mg tablet 01-28 00:00: 00 Yes [id number] 04 1{tbl} Take 1 tablet by mouth every 6 (six) hours as needed (Diarrhea refractory to loperamide ). [facility] diphenoxyla te-atropine 2.5-0.025 mg tablet 01-28 00:00: 00 Yes [id number] 04 1{tbl} Take 1 tablet by mouth every 6 (six) hours as needed (Diarrhea refractory to loperamide ). [facility] diphenoxyla te-atropine 2.5-0.025 mg tablet 01-28 00:00: 00 Yes [id number] 04 1{tbl} Take 1 tablet by mouth every 6 (six) hours as needed (Diarrhea refractory to loperamide ). [facility] diphenoxyla te-atropine 2.5-0.025 mg tablet 01-28 00:00: 00 Yes [id number] 04 1{tbl} Take 1 tablet by mouth every 6 (six) hours as needed (Diarrhea refractory to loperamide ). [facility] diphenoxyla te-atropine 2.5-0.025 mg tablet 01-28 00:00: 00 Yes [id number] 04 1{tbl} Take 1 tablet by mouth every 6 (six) hours as needed (Diarrhea refractory to loperamide ). [facility] diphenoxyla te-atropine 2.5-0.025 mg tablet 01-28 00:00: 00 Yes [id number] 04 1{tbl} Take 1 tablet by mouth every 6 (six) hours as needed (Diarrhea refractory to loperamide ). [facility] diphenoxyla te-atropine 2.5-0.025 mg tablet 01-28 00:00: 00 Yes [id number] 04 1{tbl} Take 1 tablet by mouth every 6 (six) hours as needed (Diarrhea refractory to loperamide ). [facility] diphenoxyla te-atropine 2.5-0.025 mg tablet 01-28 00:00: 00 Yes [id number] 04 1{tbl} Take 1 tablet by mouth every 6 (six) hours as needed (Diarrhea refractory to loperamide ). [facility] diphenoxyla te-atropine 2.5-0.025 mg tablet 01-28 00:00: 00 Yes [id number] 04 1{tbl} Take 1 tablet by mouth every 6 (six) hours as needed (Diarrhea refractory to loperamide ). [facility] diphenoxyla te-atropine 2.5-0.025 mg tablet 01-28 00:00: 00 Yes [id number] 04 1{tbl} Take 1 tablet by mouth every 6 (six) hours as needed (Diarrhea refractory to loperamide ). [facility] diphenoxyla te-atropine 2.5-0.025 mg tablet 01-28 00:00: 00 Yes [id number] 04 1{tbl} Take 1 tablet by mouth every 6 (six) hours as needed (Diarrhea refractory to loperamide ). [facility] diphenoxyla te-atropine 2.5-0.025 mg tablet 01-28 00:00: 00 Yes [id number] 04 1{tbl} Take 1 tablet by mouth every 6 (six) hours as needed (Diarrhea refractory to loperamide ). [facility] diphenoxyla te-atropine 2.5-0.025 mg tablet 01-28 00:00: 00 Yes [id number] 04 1{tbl} Take 1 tablet by mouth every 6 (six) hours as needed (Diarrhea refractory to loperamide ). [facility] diphenoxyla te-atropine 2.5-0.025 mg tablet 01-28 00:00: 00 Yes [id number] 04 1{tbl} Take 1 tablet by mouth every 6 (six) hours as needed (Diarrhea refractory to loperamide ). [facility] diphenoxyla te-atropine 2.5-0.025 mg tablet 01-28 00:00: 00 Yes [id number] 04 1{tbl} Take 1 tablet by mouth every 6 (six) hours as needed (Diarrhea refractory to loperamide ). [facility] diphenoxyla te-atropine 2.5-0.025 mg tablet 01-28 00:00: 00 Yes [id number] 04 1{tbl} Take 1 tablet by mouth every 6 (six) hours as needed (Diarrhea refractory to loperamide ). [facility] diphenoxyla te-atropine 2.5-0.025 mg tablet 01-28 00:00: 00 Yes [id number] 04 1{tbl} Take 1 tablet by mouth every 6 (six) hours as needed (Diarrhea refractory to loperamide ). [facility] diphenoxyla te-atropine 2.5-0.025 mg tablet 01-28 00:00: 00 Yes [id number] 04 1{tbl} Take 1 tablet by mouth every 6 (six) hours as needed (Diarrhea refractory to loperamide ). [facility] diphenoxyla te-atropine 2.5-0.025 mg tablet 01-28 00:00: 00 Yes [id number] 04 1{tbl} Take 1 tablet by mouth every 6 (six) hours as needed (Diarrhea refractory to loperamide ). [facility] diphenoxyla te-atropine 2.5-0.025 mg tablet 01-28 00:00: 00 Yes [id number] 04 1{tbl} Take 1 tablet by mouth every 6 (six) hours as needed (Diarrhea refractory to loperamide ). [facility] diphenoxyla te-atropine 2.5-0.025 mg tablet 01-28 00:00: 00 Yes [id number] 04 1{tbl} Take 1 tablet by mouth every 6 (six) hours as needed (Diarrhea refractory to loperamide ). [facility] diphenoxyla te-atropine 2.5-0.025 mg tablet 01-28 00:00: 00 Yes [id number] 04 1{tbl} Take 1 tablet by mouth every 6 (six) hours as needed (Diarrhea refractory to loperamide ). [facility] diphenoxyla te-atropine 2.5-0.025 mg tablet 01-28 00:00: 00 Yes [id number] 04 1{tbl} Take 1 tablet by mouth every 6 (six) hours as needed (Diarrhea refractory to loperamide ). [facility] diphenoxyla te-atropine 2.5-0.025 mg tablet 01-28 00:00: 00 Yes [id number] 04 1{tbl} Take 1 tablet by mouth every 6 (six) hours as needed (Diarrhea refractory to loperamide ). [facility] diphenoxyla te-atropine 2.5-0.025 mg tablet 01-28 00:00: 00 Yes [id number] 04 1{tbl} Take 1 tablet by mouth every 6 (six) hours as needed (Diarrhea refractory to loperamide ). [facility] diphenoxyla te-atropine 2.5-0.025 mg tablet 01-28 00:00: 00 Yes [id number] 04 1{tbl} Take 1 tablet by mouth every 6 (six) hours as needed (Diarrhea refractory to loperamide ). [facility] diphenoxyla te-atropine 2.5-0.025 mg tablet 01-28 00:00: 00 Yes [id number] 04 1{tbl} Take 1 tablet by mouth every 6 (six) hours as needed (Diarrhea refractory to loperamide ). [facility] diphenoxyla te-atropine 2.5-0.025 mg tablet 01-28 00:00: 00 Yes [id number] 04 1{tbl} Take 1 tablet by mouth every 6 (six) hours as needed (Diarrhea refractory to loperamide ). [facility] diphenoxyla te-atropine 2.5-0.025 mg tablet 01-28 00:00: 00 Yes [id number] 04 1{tbl} Take 1 tablet by mouth every 6 (six) hours as needed (Diarrhea refractory to loperamide ). [facility] diphenoxyla te-atropine 2.5-0.025 mg tablet 01-28 00:00: 00 Yes [id number] 04 1{tbl} Take 1 tablet by mouth every 6 (six) hours as needed (Diarrhea refractory to loperamide ). [facility] diphenoxyla te-atropine 2.5-0.025 mg tablet 01-28 00:00: 00 Yes [id number] 04 1{tbl} Take 1 tablet by mouth every 6 (six) hours as needed (Diarrhea refractory to loperamide ). [facility] diphenoxyla te-atropine 2.5-0.025 mg tablet 01-28 00:00: 00 Yes [id number] 04 1{tbl} Take 1 tablet by mouth every 6 (six) hours as needed (Diarrhea refractory to loperamide ). [facility] diphenoxyla te-atropine 2.5-0.025 mg tablet 01-28 00:00: 00 Yes [id number] 04 1{tbl} Take 1 tablet by mouth every 6 (six) hours as needed (Diarrhea refractory to loperamide ). [facility] diphenoxyla te-atropine 2.5-0.025 mg tablet 01-28 00:00: 00 Yes [id number] 04 1{tbl} Take 1 tablet by mouth every 6 (six) hours as needed (Diarrhea refractory to loperamide ). [facility] diphenoxyla te-atropine 2.5-0.025 mg tablet 01-28 00:00: 00 Yes [id number] 04 1{tbl} Take 1 tablet by mouth every 6 (six) hours as needed (Diarrhea refractory to loperamide ). [facility] diphenoxyla te-atropine 2.5-0.025 mg tablet 01-28 00:00: 00 Yes [id number] 04 1{tbl} Take 1 tablet by mouth every 6 (six) hours as needed (Diarrhea refractory to loperamide ). [facility] diphenoxyla te-atropine 2.5-0.025 mg tablet 01-28 00:00: 00 Yes [id number] 04 1{tbl} Take 1 tablet by mouth every 6 (six) hours as needed (Diarrhea refractory to loperamide ). [facility] diphenoxyla te-atropine 2.5-0.025 mg tablet 01-28 00:00: 00 Yes [id number] 04 1{tbl} Take 1 tablet by mouth every 6 (six) hours as needed (Diarrhea refractory to loperamide ). [facility] diphenoxyla te-atropine 2.5-0.025 mg tablet 01-28 00:00: 00 Yes [id number] 04 1{tbl} Take 1 tablet by mouth every 6 (six) hours as needed (Diarrhea refractory to loperamide ). [facility] diphenoxyla te-atropine 2.5-0.025 mg tablet 01-28 00:00: 00 Yes [id number] 04 1{tbl} Take 1 tablet by mouth every 6 (six) hours as needed (Diarrhea refractory to loperamide ). [facility] diphenoxyla te-atropine 2.5-0.025 mg tablet 01-28 00:00: 00 Yes [id number] 04 1{tbl} Take 1 tablet by mouth every 6 (six) hours as needed (Diarrhea refractory to loperamide ). [facility] diphenoxyla te-atropine 2.5-0.025 mg tablet 01-28 00:00: 00 Yes [id number] 04 1{tbl} Take 1 tablet by mouth every 6 (six) hours as needed (Diarrhea refractory to loperamide ). [facility] diphenoxyla te-atropine 2.5-0.025 mg tablet 01-28 00:00: 00 Yes [id number] 04 1{tbl} Take 1 tablet by mouth every 6 (six) hours as needed (Diarrhea refractory to loperamide ). [facility] diphenoxyla te-atropine 2.5-0.025 mg tablet 01-28 00:00: 00 Yes [id number] 04 1{tbl} Take 1 tablet by mouth every 6 (six) hours as needed (Diarrhea refractory to loperamide ). [facility] diphenoxyla te-atropine 2.5-0.025 mg tablet 01-28 00:00: 00 Yes [id number] 04 1{tbl} Take 1 tablet by mouth every 6 (six) hours as needed (Diarrhea refractory to loperamide ). [facility] diphenoxyla te-atropine 2.5-0.025 mg tablet 01-28 00:00: 00 Yes [id number] 04 1{tbl} Take 1 tablet by mouth every 6 (six) hours as needed (Diarrhea refractory to loperamide ). [facility] diphenoxyla te-atropine 2.5-0.025 mg tablet 01-28 00:00: 00 Yes [id number] 04 1{tbl} Take 1 tablet by mouth every 6 (six) hours as needed (Diarrhea refractory to loperamide ). [facility] diphenoxyla te-atropine 2.5-0.025 mg tablet 01-28 00:00: 00 Yes [id number] 04 1{tbl} Take 1 tablet by mouth every 6 (six) hours as needed (Diarrhea refractory to loperamide ). [facility] diphenoxyla te-atropine 2.5-0.025 mg tablet 01-28 00:00: 00 Yes [id number] 04 1{tbl} Take 1 tablet by mouth every 6 (six) hours as needed (Diarrhea refractory to loperamide ). [facility] diphenoxyla te-atropine 2.5-0.025 mg tablet 01-28 00:00: 00 Yes [id number] 04 1{tbl} Take 1 tablet by mouth every 6 (six) hours as needed (Diarrhea refractory to loperamide ). [facility] diphenoxyla te-atropine 2.5-0.025 mg tablet 01-28 00:00: 00 Yes [id number] 04 1{tbl} Take 1 tablet by mouth every 6 (six) hours as needed (Diarrhea refractory to loperamide ). [facility] diphenoxyla te-atropine 2.5-0.025 mg tablet 01-28 00:00: 00 Yes [id number] 04 1{tbl} Take 1 tablet by mouth every 6 (six) hours as needed (Diarrhea refractory to loperamide ). [facility] diphenoxyla te-atropine 2.5-0.025 mg tablet 01-28 00:00: 00 Yes [id number] 04 1{tbl} Take 1 tablet by mouth every 6 (six) hours as needed (Diarrhea refractory to loperamide ). [facility] diphenoxyla te-atropine 2.5-0.025 mg tablet 01-28 00:00: 00 Yes [id number] 04 1{tbl} Take 1 tablet by mouth every 6 (six) hours as needed (Diarrhea refractory to loperamide ). [facility] diphenoxyla te-atropine 2.5-0.025 mg tablet 01-28 00:00: 00 Yes [id number] 04 1{tbl} Take 1 tablet by mouth every 6 (six) hours as needed (Diarrhea refractory to loperamide ). [facility] diphenoxyla te-atropine 2.5-0.025 mg tablet 01-28 00:00: 00 Yes [id number] 04 1{tbl} Take 1 tablet by mouth every 6 (six) hours as needed (Diarrhea refractory to loperamide ). [facility] diphenoxyla te-atropine 2.5-0.025 mg tablet 01-28 00:00: 00 Yes [id number] 04 1{tbl} Take 1 tablet by mouth every 6 (six) hours as needed (Diarrhea refractory to loperamide ). [facility] diphenoxyla te-atropine 2.5-0.025 mg tablet 01-28 00:00: 00 Yes [id number] 04 1{tbl} Take 1 tablet by mouth every 6 (six) hours as needed (Diarrhea refractory to loperamide ). [facility] diphenoxyla te-atropine 2.5-0.025 mg tablet 01-28 00:00: 00 Yes [id number] 04 1{tbl} Take 1 tablet by mouth every 6 (six) hours as needed (Diarrhea refractory to loperamide ). [facility] diphenoxyla te-atropine 2.5-0.025 mg tablet 01-28 00:00: 00 Yes [id number] 04 1{tbl} Take 1 tablet by mouth every 6 (six) hours as needed (Diarrhea refractory to loperamide ). [facility] diphenoxyla te-atropine 2.5-0.025 mg tablet 01-28 00:00: 00 Yes [id number] 04 1{tbl} Take 1 tablet by mouth every 6 (six) hours as needed (Diarrhea refractory to loperamide ). [facility] diphenoxyla te-atropine 2.5-0.025 mg tablet 01-28 00:00: 00 Yes [id number] 04 1{tbl} Take 1 tablet by mouth every 6 (six) hours as needed (Diarrhea refractory to loperamide ). [facility] diphenoxyla te-atropine 2.5-0.025 mg tablet 01-28 00:00: 00 Yes [id number] 04 1{tbl} Take 1 tablet by mouth every 6 (six) hours as needed (Diarrhea refractory to loperamide ). [facility] diphenoxyla te-atropine 2.5-0.025 mg tablet 01-28 00:00: 00 Yes [id number] 04 1{tbl} Take 1 tablet by mouth every 6 (six) hours as needed (Diarrhea refractory to loperamide ). [facility] diphenoxyla te-atropine 2.5-0.025 mg tablet 01-28 00:00: 00 Yes [id number] 04 1{tbl} Take 1 tablet by mouth every 6 (six) hours as needed (Diarrhea refractory to loperamide ). [facility] diphenoxyla te-atropine 2.5-0.025 mg tablet 01-28 00:00: 00 Yes [id number] 04 1{tbl} Take 1 tablet by mouth every 6 (six) hours as needed (Diarrhea refractory to loperamide ). [facility] diphenoxyla te-atropine 2.5-0.025 mg tablet 01-28 00:00: 00 Yes [id number] 04 1{tbl} Take 1 tablet by mouth every 6 (six) hours as needed (Diarrhea refractory to loperamide ). [facility] diphenoxyla te-atropine 2.5-0.025 mg tablet 01-28 00:00: 00 Yes [id number] 04 1{tbl} Take 1 tablet by mouth every 6 (six) hours as needed (Diarrhea refractory to loperamide ). [facility] diphenoxyla te-atropine 2.5-0.025 mg tablet 01-28 00:00: 00 Yes [id number] 04 1{tbl} Take 1 tablet by mouth every 6 (six) hours as needed (Diarrhea refractory to loperamide ). [facility] diphenoxyla te-atropine 2.5-0.025 mg tablet 01-28 00:00: 00 Yes [id number] 04 1{tbl} Take 1 tablet by mouth every 6 (six) hours as needed (Diarrhea refractory to loperamide ). [facility] diphenoxyla te-atropine 2.5-0.025 mg tablet 01-28 00:00: 00 Yes [id number] 04 1{tbl} Take 1 tablet by mouth every 6 (six) hours as needed (Diarrhea refractory to loperamide ). [facility] diphenoxyla te-atropine 2.5-0.025 mg tablet 01-28 00:00: 00 Yes [id number] 04 1{tbl} Take 1 tablet by mouth every 6 (six) hours as needed (Diarrhea refractory to loperamide ). [facility] diphenoxyla te-atropine 2.5-0.025 mg tablet 01-28 00:00: 00 Yes [id number] 04 1{tbl} Take 1 tablet by mouth every 6 (six) hours as needed (Diarrhea refractory to loperamide ). [facility] diphenoxyla te-atropine 2.5-0.025 mg tablet 01-28 00:00: 00 Yes [id number] 04 1{tbl} Take 1 tablet by mouth every 6 (six) hours as needed (Diarrhea refractory to loperamide ). [facility] diphenoxyla te-atropine 2.5-0.025 mg tablet 01-28 00:00: 00 Yes [id number] 1{tbl} Take 1 tablet by mouth every 6 (six) hours as needed (Diarrhea refractory to loperamide ). [facility] diphenoxyla te-atropine 2.5-0.025 mg tablet 01-28 00:00: 00 Yes [id number] 1{tbl} Take 1 tablet by mouth every 6 (six) hours as needed (Diarrhea refractory to loperamide ). [facility] diphenoxyla te-atropine 2.5-0.025 mg tablet 01-28 00:00: 00 Yes [id number] 1{tbl} Take 1 tablet by mouth every 6 (six) hours as needed (Diarrhea refractory to loperamide ). [facility] diphenoxyla te-atropine 2.5-0.025 mg tablet 01-28 00:00: 00 Yes [id number] 1{tbl} Take 1 tablet by mouth every 6 (six) hours as needed (Diarrhea refractory to loperamide ). [facility] diphenoxyla te-atropine 2.5-0.025 mg tablet 01-28 00:00: 00 Yes [id number] 1{tbl} Take 1 tablet by mouth every 6 (six) hours as needed (Diarrhea refractory to loperamide ). [facility] diphenoxyla te-atropine 2.5-0.025 mg tablet 01-28 00:00: 00 Yes [id number] 1{tbl} Take 1 tablet by mouth every 6 (six) hours as needed (Diarrhea refractory to loperamide ). [facility] diphenoxyla te-atropine 2.5-0.025 mg tablet 01-28 00:00: 00 Yes [id number] 1{tbl} Take 1 tablet by mouth every 6 (six) hours as needed (Diarrhea refractory to loperamide ). [facility] diphenoxyla te-atropine 2.5-0.025 mg tablet 01-28 00:00: 00 Yes [id number] 1{tbl} Take 1 tablet by mouth every 6 (six) hours as needed (Diarrhea refractory to loperamide ). [facility] diphenoxyla te-atropine 2.5-0.025 mg tablet 01-28 00:00: 00 Yes [id number] 1{tbl} Take 1 tablet by mouth every 6 (six) hours as needed (Diarrhea refractory to loperamide ). [facility] diphenoxyla te-atropine 2.5-0.025 mg tablet 01-28 00:00: 00 Yes [id number] 1{tbl} Take 1 tablet by mouth every 6 (six) hours as needed (Diarrhea refractory to loperamide ). [facility] diphenoxyla te-atropine 2.5-0.025 mg tablet 01-28 00:00: 00 Yes [id number] 1{tbl} Take 1 tablet by mouth every 6 (six) hours as needed (Diarrhea refractory to loperamide ). [facility] diphenoxyla te-atropine 2.5-0.025 mg tablet 01-28 00:00: 00 Yes [id number] 1{tbl} Take 1 tablet by mouth every 6 (six) hours as needed (Diarrhea refractory to loperamide ). [facility] diphenoxyla te-atropine 2.5-0.025 mg tablet 01-28 00:00: 00 Yes [id number] 1{tbl} Take 1 tablet by mouth every 6 (six) hours as needed (Diarrhea refractory to loperamide ). [facility] diphenoxyla te-atropine 2.5-0.025 mg tablet 01-28 00:00: 00 Yes [id number] 1{tbl} Take 1 tablet by mouth every 6 (six) hours as needed (Diarrhea refractory to loperamide ). [facility] diphenoxyla te-atropine 2.5-0.025 mg tablet 01-28 00:00: 00 Yes [id number] 1{tbl} Take 1 tablet by mouth every 6 (six) hours as needed (Diarrhea refractory to loperamide ). [facility] diphenoxyla te-atropine 2.5-0.025 mg tablet 01-28 00:00: 00 Yes [id number] 1{tbl} Take 1 tablet by mouth every 6 (six) hours as needed (Diarrhea refractory to loperamide ). [facility] diphenoxyla te-atropine 2.5-0.025 mg tablet 01-28 00:00: 00 Yes [id number] 1{tbl} Take 1 tablet by mouth every 6 (six) hours as needed (Diarrhea refractory to loperamide ). [facility] diphenoxyla te-atropine 2.5-0.025 mg tablet 01-28 00:00: 00 Yes [id number] 1{tbl} Take 1 tablet by mouth every 6 (six) hours as needed (Diarrhea refractory to loperamide ). [facility] diphenoxyla te-atropine 2.5-0.025 mg tablet 01-28 00:00: 00 Yes [id number] 1{tbl} Take 1 tablet by mouth every 6 (six) hours as needed (Diarrhea refractory to loperamide ). [facility] diphenoxyla te-atropine 2.5-0.025 mg tablet 01-28 00:00: 00 Yes [id number] 1{tbl} Take 1 tablet by mouth every 6 (six) hours as needed (Diarrhea refractory to loperamide ). [facility] diphenoxyla te-atropine 2.5-0.025 mg tablet 01-28 00:00: 00 Yes [id number] 1{tbl} Take 1 tablet by mouth every 6 (six) hours as needed (Diarrhea refractory to loperamide ). [facility] diphenoxyla te-atropine 2.5-0.025 mg tablet 01-28 00:00: 00 Yes [id number] 1{tbl} Take 1 tablet by mouth every 6 (six) hours as needed (Diarrhea refractory to loperamide ). [facility] diphenoxyla te-atropine 2.5-0.025 mg tablet 01-28 00:00: 00 Yes [id number] 1{tbl} Take 1 tablet by mouth every 6 (six) hours as needed (Diarrhea refractory to loperamide ). [facility] diphenoxyla te-atropine 2.5-0.025 mg tablet 01-28 00:00: 00 Yes [id number] 1{tbl} Take 1 tablet by mouth every 6 (six) hours as needed (Diarrhea refractory to loperamide ). [facility] diphenoxyla te-atropine 2.5-0.025 mg tablet 01-28 00:00: 00 Yes [id number] 1{tbl} Take 1 tablet by mouth every 6 (six) hours as needed (Diarrhea refractory to loperamide ). [facility] diphenoxyla te-atropine 2.5-0.025 mg tablet 01-28 00:00: 00 Yes [id number] 1{tbl} Take 1 tablet by mouth every 6 (six) hours as needed (Diarrhea refractory to loperamide ). [facility] diphenoxyla te-atropine 2.5-0.025 mg tablet 01-28 00:00: 00 Yes [id number] 1{tbl} Take 1 tablet by mouth every 6 (six) hours as needed (Diarrhea refractory to loperamide ). [facility] diphenoxyla te-atropine 2.5-0.025 mg tablet 01-28 00:00: 00 Yes [id number] 1{tbl} Take 1 tablet by mouth every 6 (six) hours as needed (Diarrhea refractory to loperamide ). [facility] diphenoxyla te-atropine 2.5-0.025 mg tablet 01-28 00:00: 00 Yes [id number] 1{tbl} Take 1 tablet by mouth every 6 (six) hours as needed (Diarrhea refractory to loperamide ). [facility] diphenoxyla te-atropine 2.5-0.025 mg tablet 01-28 00:00: 00 Yes [id number] 1{tbl} Take 1 tablet by mouth every 6 (six) hours as needed (Diarrhea refractory to loperamide ). [facility] diphenoxyla te-atropine 2.5-0.025 mg tablet 01-28 00:00: 00 Yes [id number] 1{tbl} Take 1 tablet by mouth every 6 (six) hours as needed (Diarrhea refractory to loperamide ). [facility] diphenoxyla te-atropine 2.5-0.025 mg tablet 01-28 00:00: 00 Yes [id number] 1{tbl} Take 1 tablet by mouth every 6 (six) hours as needed (Diarrhea refractory to loperamide ). [facility] diphenoxyla te-atropine 2.5-0.025 mg tablet 01-28 00:00: 00 Yes [id number] 1{tbl} Take 1 tablet by mouth every 6 (six) hours as needed (Diarrhea refractory to loperamide ). [facility] diphenoxyla te-atropine 2.5-0.025 mg tablet 01-28 00:00: 00 Yes [id number] 1{tbl} Take 1 tablet by mouth every 6 (six) hours as needed (Diarrhea refractory to loperamide ). [facility] diphenoxyla te-atropine 2.5-0.025 mg tablet 01-28 00:00: 00 Yes [id number] 1{tbl} Take 1 tablet by mouth every 6 (six) hours as needed (Diarrhea refractory to loperamide ). [facility] diphenoxyla te-atropine 2.5-0.025 mg tablet 01-28 00:00: 00 Yes [id number] 1{tbl} Take 1 tablet by mouth every 6 (six) hours as needed (Diarrhea refractory to loperamide ). [facility] diphenoxyla te-atropine 2.5-0.025 mg tablet 01-28 00:00: 00 Yes [id number] 1{tbl} Take 1 tablet by mouth every 6 (six) hours as needed (Diarrhea refractory to loperamide ). [facility] diphenoxyla te-atropine 2.5-0.025 mg tablet 01-28 00:00: 00 Yes [id number] 1{tbl} Take 1 tablet by mouth every 6 (six) hours as needed (Diarrhea refractory to loperamide ). [facility] diphenoxyla te-atropine 2.5-0.025 mg tablet 01-28 00:00: 00 Yes [id number] 1{tbl} Take 1 tablet by mouth every 6 (six) hours as needed (Diarrhea refractory to loperamide ). [facility] diphenoxyla te-atropine 2.5-0.025 mg tablet 01-28 00:00: 00 Yes [id number] 1{tbl} Take 1 tablet by mouth every 6 (six) hours as needed (Diarrhea refractory to loperamide ). [facility] diphenoxyla te-atropine 2.5-0.025 mg tablet 01-28 00:00: 00 Yes [id number] 1{tbl} Take 1 tablet by mouth every 6 (six) hours as needed (Diarrhea refractory to loperamide ). [facility] diphenoxyla te-atropine 2.5-0.025 mg tablet 01-28 00:00: 00 Yes [id number] 1{tbl} Take 1 tablet by mouth every 6 (six) hours as needed (Diarrhea refractory to loperamide ). [facility] diphenoxyla te-atropine 2.5-0.025 mg tablet 01-28 00:00: 00 Yes [id number] 1{tbl} Take 1 tablet by mouth every 6 (six) hours as needed (Diarrhea refractory to loperamide ). [facility] diphenoxyla te-atropine 2.5-0.025 mg tablet 01-28 00:00: 00 Yes [id number] 1{tbl} Take 1 tablet by mouth every 6 (six) hours as needed (Diarrhea refractory to loperamide ). [facility] diphenoxyla te-atropine 2.5-0.025 mg tablet 01-28 00:00: 00 Yes [id number] 1{tbl} Take 1 tablet by mouth every 6 (six) hours as needed (Diarrhea refractory to loperamide ). [facility] diphenoxyla te-atropine 2.5-0.025 mg tablet 01-28 00:00: 00 Yes [id number] 1{tbl} Take 1 tablet by mouth every 6 (six) hours as needed (Diarrhea refractory to loperamide ). [facility] diphenoxyla te-atropine 2.5-0.025 mg tablet 01-28 00:00: 00 Yes [id number] 1{tbl} Take 1 tablet by mouth every 6 (six) hours as needed (Diarrhea refractory to loperamide ). [facility] diphenoxyla te-atropine 2.5-0.025 mg tablet 01-28 00:00: 00 Yes [id number] 1{tbl} Take 1 tablet by mouth every 6 (six) hours as needed (Diarrhea refractory to loperamide ). [facility] diphenoxyla te-atropine 2.5-0.025 mg tablet 01-28 00:00: 00 Yes [id number] 1{tbl} Take 1 tablet by mouth every 6 (six) hours as needed (Diarrhea refractory to loperamide ). [facility] diphenoxyla te-atropine 2.5-0.025 mg tablet 01-28 00:00: 00 Yes [id number] 1{tbl} Take 1 tablet by mouth every 6 (six) hours as needed (Diarrhea refractory to loperamide ). [facility] diphenoxyla te-atropine 2.5-0.025 mg tablet 01-28 00:00: 00 Yes [id number] 1{tbl} Take 1 tablet by mouth every 6 (six) hours as needed (Diarrhea refractory to loperamide ). [facility] diphenoxyla te-atropine 2.5-0.025 mg tablet 01-28 00:00: 00 Yes [id number] 1{tbl} Take 1 tablet by mouth every 6 (six) hours as needed (Diarrhea refractory to loperamide ). [facility] diphenoxyla te-atropine 2.5-0.025 mg tablet 01-28 00:00: 00 Yes [id number] 1{tbl} Take 1 tablet by mouth every 6 (six) hours as needed (Diarrhea refractory to loperamide ). [facility] diphenoxyla te-atropine 2.5-0.025 mg tablet 01-28 00:00: 00 Yes [id number] 1{tbl} Take 1 tablet by mouth every 6 (six) hours as needed (Diarrhea refractory to loperamide ). [facility] diphenoxyla te-atropine 2.5-0.025 mg tablet 01-28 00:00: 00 Yes [id number] 1{tbl} Take 1 tablet by mouth every 6 (six) hours as needed (Diarrhea refractory to loperamide ). [facility] diphenoxyla te-atropine 2.5-0.025 mg tablet 01-28 00:00: 00 Yes [id number] 1{tbl} Take 1 tablet by mouth every 6 (six) hours as needed (Diarrhea refractory to loperamide ). [facility] diphenoxyla te-atropine 2.5-0.025 mg tablet 01-28 00:00: 00 Yes [id number] 1{tbl} Take 1 tablet by mouth every 6 (six) hours as needed (Diarrhea refractory to loperamide ). [facility] diphenoxyla te-atropine 2.5-0.025 mg tablet 01-28 00:00: 00 Yes [id number] 1{tbl} Take 1 tablet by mouth every 6 (six) hours as needed (Diarrhea refractory to loperamide ). [facility] diphenoxyla te-atropine 2.5-0.025 mg tablet 01-28 00:00: 00 Yes [id number] 1{tbl} Take 1 tablet by mouth every 6 (six) hours as needed (Diarrhea refractory to loperamide ). [facility] diphenoxyla te-atropine 2.5-0.025 mg tablet 01-28 00:00: 00 Yes [id number] 1{tbl} Take 1 tablet by mouth every 6 (six) hours as needed (Diarrhea refractory to loperamide ). [facility] diphenoxyla te-atropine 2.5-0.025 mg tablet 01-28 00:00: 00 Yes [id number] 1{tbl} Take 1 tablet by mouth every 6 (six) hours as needed (Diarrhea refractory to loperamide ). [facility] diphenoxyla te-atropine 2.5-0.025 mg tablet 01-28 00:00: 00 Yes [id number] 1{tbl} Take 1 tablet by mouth every 6 (six) hours as needed (Diarrhea refractory to loperamide ). [facility] diphenoxyla te-atropine 2.5-0.025 mg tablet 01-28 00:00: 00 Yes [id number] 1{tbl} Take 1 tablet by mouth every 6 (six) hours as needed (Diarrhea refractory to loperamide ). [facility] diphenoxyla te-atropine 2.5-0.025 mg tablet 01-28 00:00: 00 Yes [id number] 1{tbl} Take 1 tablet by mouth every 6 (six) hours as needed (Diarrhea refractory to loperamide ). [facility] diphenoxyla te-atropine 2.5-0.025 mg tablet 01-28 00:00: 00 Yes [id number] 1{tbl} Take 1 tablet by mouth every 6 (six) hours as needed (Diarrhea refractory to loperamide ). [facility] diphenoxyla te-atropine 2.5-0.025 mg tablet 01-28 00:00: 00 Yes [id number] 1{tbl} Take 1 tablet by mouth every 6 (six) hours as needed (Diarrhea refractory to loperamide ). [facility] diphenoxyla te-atropine 2.5-0.025 mg tablet 01-28 00:00: 00 Yes [id number] 1{tbl} Take 1 tablet by mouth every 6 (six) hours as needed (Diarrhea refractory to loperamide ). [facility] diphenoxyla te-atropine 2.5-0.025 mg tablet 01-28 00:00: 00 Yes [id number] 1{tbl} Take 1 tablet by mouth every 6 (six) hours as needed (Diarrhea refractory to loperamide ). [facility] diphenoxyla te-atropine 2.5-0.025 mg tablet 01-28 00:00: 00 Yes [id number] 1{tbl} Take 1 tablet by mouth every 6 (six) hours as needed (Diarrhea refractory to loperamide ). [facility] diphenoxyla te-atropine 2.5-0.025 mg tablet 01-28 00:00: 00 Yes [id number] 1{tbl} Take 1 tablet by mouth every 6 (six) hours as needed (Diarrhea refractory to loperamide ). [facility] diphenoxyla te-atropine 2.5-0.025 mg tablet 01-28 00:00: 00 Yes [id number] 1{tbl} Take 1 tablet by mouth every 6 (six) hours as needed (Diarrhea refractory to loperamide ). [facility] diphenoxyla te-atropine 2.5-0.025 mg tablet 01-28 00:00: 00 Yes [id number] 1{tbl} Take 1 tablet by mouth every 6 (six) hours as needed (Diarrhea refractory to loperamide ). [facility] diphenoxyla te-atropine 2.5-0.025 mg tablet 01-28 00:00: 00 Yes [id number] 1{tbl} Take 1 tablet by mouth every 6 (six) hours as needed (Diarrhea refractory to loperamide ). [facility] diphenoxyla te-atropine 2.5-0.025 mg tablet 01-28 00:00: 00 Yes [id number] 1{tbl} Take 1 tablet by mouth every 6 (six) hours as needed (Diarrhea refractory to loperamide ). [facility] diphenoxyla te-atropine 2.5-0.025 mg tablet 01-28 00:00: 00 Yes [id number] 1{tbl} Take 1 tablet by mouth every 6 (six) hours as needed (Diarrhea refractory to loperamide ). [facility] diphenoxyla te-atropine 2.5-0.025 mg tablet 01-28 00:00: 00 Yes [id number] 1{tbl} Take 1 tablet by mouth every 6 (six) hours as needed (Diarrhea refractory to loperamide ). [facility] diphenoxyla te-atropine 2.5-0.025 mg tablet 01-28 00:00: 00 Yes [id number] 1{tbl} Take 1 tablet by mouth every 6 (six) hours as needed (Diarrhea refractory to loperamide ). [facility] diphenoxyla te-atropine 2.5-0.025 mg tablet 01-28 00:00: 00 Yes [id number] 1{tbl} Take 1 tablet by mouth every 6 (six) hours as needed (Diarrhea refractory to loperamide ). [facility] diphenoxyla te-atropine 2.5-0.025 mg tablet 01-28 00:00: 00 Yes [id number] 1{tbl} Take 1 tablet by mouth every 6 (six) hours as needed (Diarrhea refractory to loperamide ). [facility] diphenoxyla te-atropine 2.5-0.025 mg tablet 01-28 00:00: 00 Yes [id number] 1{tbl} Take 1 tablet by mouth every 6 (six) hours as needed (Diarrhea refractory to loperamide ). [facility] diphenoxyla te-atropine 2.5-0.025 mg tablet 01-28 00:00: 00 Yes [id number] 1{tbl} Take 1 tablet by mouth every 6 (six) hours as needed (Diarrhea refractory to loperamide ). [facility] diphenoxyla te-atropine 2.5-0.025 mg tablet 01-28 00:00: 00 Yes [id number] 1{tbl} Take 1 tablet by mouth every 6 (six) hours as needed (Diarrhea refractory to loperamide ). [facility] diphenoxyla te-atropine 2.5-0.025 mg tablet 01-28 00:00: 00 Yes [id number] 1{tbl} Take 1 tablet by mouth every 6 (six) hours as needed (Diarrhea refractory to loperamide ). [facility] diphenoxyla te-atropine 2.5-0.025 mg tablet 01-28 00:00: 00 Yes [id number] 1{tbl} Take 1 tablet by mouth every 6 (six) hours as needed (Diarrhea refractory to loperamide ). [facility] diphenoxyla te-atropine 2.5-0.025 mg tablet 01-28 00:00: 00 Yes [id number] 1{tbl} Take 1 tablet by mouth every 6 (six) hours as needed (Diarrhea refractory to loperamide ). [facility] diphenoxyla te-atropine 2.5-0.025 mg tablet 01-28 00:00: 00 Yes [id number] 1{tbl} Take 1 tablet by mouth every 6 (six) hours as needed (Diarrhea refractory to loperamide ). [facility] diphenoxyla te-atropine 2.5-0.025 mg tablet 01-28 00:00: 00 Yes [id number] 1{tbl} Take 1 tablet by mouth every 6 (six) hours as needed (Diarrhea refractory to loperamide ). [facility] diphenoxyla te-atropine 2.5-0.025 mg tablet 01-28 00:00: 00 Yes [id number] 1{tbl} Take 1 tablet by mouth every 6 (six) hours as needed (Diarrhea refractory to loperamide ). [facility] diphenoxyla te-atropine 2.5-0.025 mg tablet 01-28 00:00: 00 Yes [id number] 1{tbl} Take 1 tablet by mouth every 6 (six) hours as needed (Diarrhea refractory to loperamide ). [facility] diphenoxyla te-atropine 2.5-0.025 mg tablet 01-28 00:00: 00 Yes [id number] 1{tbl} Take 1 tablet by mouth every 6 (six) hours as needed (Diarrhea refractory to loperamide ). [facility] diphenoxyla te-atropine 2.5-0.025 mg tablet 01-28 00:00: 00 Yes [id number] 1{tbl} Take 1 tablet by mouth every 6 (six) hours as needed (Diarrhea refractory to loperamide ). [facility] diphenoxyla te-atropine 2.5-0.025 mg tablet 01-28 00:00: 00 Yes [id number] 1{tbl} Take 1 tablet by mouth every 6 (six) hours as needed (Diarrhea refractory to loperamide ). [facility] diphenoxyla te-atropine 2.5-0.025 mg tablet 01-28 00:00: 00 Yes [id number] 1{tbl} Take 1 tablet by mouth every 6 (six) hours as needed (Diarrhea refractory to loperamide ). [facility] diphenoxyla te-atropine 2.5-0.025 mg tablet 01-28 00:00: 00 Yes [id number] 1{tbl} Take 1 tablet by mouth every 6 (six) hours as needed (Diarrhea refractory to loperamide ). [facility] diphenoxyla te-atropine 2.5-0.025 mg tablet 01-28 00:00: 00 Yes [id number] 1{tbl} Take 1 tablet by mouth every 6 (six) hours as needed (Diarrhea refractory to loperamide ). [facility] diphenoxyla te-atropine 2.5-0.025 mg tablet 01-28 00:00: 00 Yes [id number] 1{tbl} Take 1 tablet by mouth every 6 (six) hours as needed (Diarrhea refractory to loperamide ). [facility] diphenoxyla te-atropine 2.5-0.025 mg tablet 01-28 00:00: 00 Yes [id number] 1{tbl} Take 1 tablet by mouth every 6 (six) hours as needed (Diarrhea refractory to loperamide ). [facility] diphenoxyla te-atropine 2.5-0.025 mg tablet 01-28 00:00: 00 Yes [id number] 1{tbl} Take 1 tablet by mouth every 6 (six) hours as needed (Diarrhea refractory to loperamide ). [facility] diphenoxyla te-atropine 2.5-0.025 mg tablet 01-28 00:00: 00 Yes [id number] 1{tbl} Take 1 tablet by mouth every 6 (six) hours as needed (Diarrhea refractory to loperamide ). [facility] diphenoxyla te-atropine 2.5-0.025 mg tablet 01-28 00:00: 00 Yes [id number] 1{tbl} Take 1 tablet by mouth every 6 (six) hours as needed (Diarrhea refractory to loperamide ). [facility] diphenoxyla te-atropine 2.5-0.025 mg tablet 01-28 00:00: 00 Yes [id number] 1{tbl} Take 1 tablet by mouth every 6 (six) hours as needed (Diarrhea refractory to loperamide ). [facility] diphenoxyla te-atropine 2.5-0.025 mg tablet 01-28 00:00: 00 Yes [id number] 1{tbl} Take 1 tablet by mouth every 6 (six) hours as needed (Diarrhea refractory to loperamide ). [facility] diphenoxyla te-atropine 2.5-0.025 mg tablet 01-28 00:00: 00 Yes [id number] 1{tbl} Take 1 tablet by mouth every 6 (six) hours as needed (Diarrhea refractory to loperamide ). [facility] diphenoxyla te-atropine 2.5-0.025 mg tablet 01-28 00:00: 00 Yes [id number] 1{tbl} Take 1 tablet by mouth every 6 (six) hours as needed (Diarrhea refractory to loperamide ). [facility] diphenoxyla te-atropine 2.5-0.025 mg tablet 01-28 00:00: 00 Yes [id number] 1{tbl} Take 1 tablet by mouth every 6 (six) hours as needed (Diarrhea refractory to loperamide ). [facility] diphenoxyla te-atropine 2.5-0.025 mg tablet 01-28 00:00: 00 Yes [id number] 1{tbl} Take 1 tablet by mouth every 6 (six) hours as needed (Diarrhea refractory to loperamide ). [facility] diphenoxyla te-atropine 2.5-0.025 mg tablet 01-28 00:00: 00 Yes [id number] 1{tbl} Take 1 tablet by mouth every 6 (six) hours as needed (Diarrhea refractory to loperamide ). [facility] diphenoxyla te-atropine 2.5-0.025 mg tablet 01-28 00:00: 00 Yes [id number] 1{tbl} Take 1 tablet by mouth every 6 (six) hours as needed (Diarrhea refractory to loperamide ). [facility] diphenoxyla te-atropine 2.5-0.025 mg tablet 01-28 00:00: 00 Yes [id number] 1{tbl} Take 1 tablet by mouth every 6 (six) hours as needed (Diarrhea refractory to loperamide ). [facility] diphenoxyla te-atropine 2.5-0.025 mg tablet 01-28 00:00: 00 Yes [id number] 1{tbl} Take 1 tablet by mouth every 6 (six) hours as needed (Diarrhea refractory to loperamide ). [facility] diphenoxyla te-atropine 2.5-0.025 mg tablet 01-28 00:00: 00 Yes [id number] 1{tbl} Take 1 tablet by mouth every 6 (six) hours as needed (Diarrhea refractory to loperamide ). [facility] diphenoxyla te-atropine 2.5-0.025 mg tablet 01-28 00:00: 00 Yes [id number] 1{tbl} Take 1 tablet by mouth every 6 (six) hours as needed (Diarrhea refractory to loperamide ). [facility] diphenoxyla te-atropine 2.5-0.025 mg tablet 01-28 00:00: 00 Yes [id number] 1{tbl} Take 1 tablet by mouth every 6 (six) hours as needed (Diarrhea refractory to loperamide ). [facility] diphenoxyla te-atropine 2.5-0.025 mg tablet 01-28 00:00: 00 Yes [id number] 1{tbl} Take 1 tablet by mouth every 6 (six) hours as needed (Diarrhea refractory to loperamide ). [facility] diphenoxyla te-atropine 2.5-0.025 mg tablet 01-28 00:00: 00 Yes [id number] 1{tbl} Take 1 tablet by mouth every 6 (six) hours as needed (Diarrhea refractory to loperamide ). [facility] diphenoxyla te-atropine 2.5-0.025 mg tablet 01-28 00:00: 00 Yes [id number] 1{tbl} Take 1 tablet by mouth every 6 (six) hours as needed (Diarrhea refractory to loperamide ). [facility] diphenoxyla te-atropine 2.5-0.025 mg tablet 01-28 00:00: 00 Yes [id number] 1{tbl} Take 1 tablet by mouth every 6 (six) hours as needed (Diarrhea refractory to loperamide ). [facility] diphenoxyla te-atropine 2.5-0.025 mg tablet 01-28 00:00: 00 Yes [id number] 1{tbl} Take 1 tablet by mouth every 6 (six) hours as needed (Diarrhea refractory to loperamide ). [facility] diphenoxyla te-atropine 2.5-0.025 mg tablet 01-28 00:00: 00 Yes [id number] 1{tbl} Take 1 tablet by mouth every 6 (six) hours as needed (Diarrhea refractory to loperamide ). [facility] diphenoxyla te-atropine 2.5-0.025 mg tablet 01-28 00:00: 00 Yes [id number] 1{tbl} Take 1 tablet by mouth every 6 (six) hours as needed (Diarrhea refractory to loperamide ). [facility] diphenoxyla te-atropine 2.5-0.025 mg tablet 01-28 00:00: 00 Yes [id number] 1{tbl} Take 1 tablet by mouth every 6 (six) hours as needed (Diarrhea refractory to loperamide ). [facility] diphenoxyla te-atropine 2.5-0.025 mg tablet 01-28 00:00: 00 Yes [id number] 1{tbl} Take 1 tablet by mouth every 6 (six) hours as needed (Diarrhea refractory to loperamide ). [facility] diphenoxyla te-atropine 2.5-0.025 mg tablet 01-28 00:00: 00 Yes [id number] 1{tbl} Take 1 tablet by mouth every 6 (six) hours as needed (Diarrhea refractory to loperamide ). [facility] diphenoxyla te-atropine 2.5-0.025 mg tablet 01-28 00:00: 00 Yes [id number] 1{tbl} Take 1 tablet by mouth every 6 (six) hours as needed (Diarrhea refractory to loperamide ). [facility] diphenoxyla te-atropine 2.5-0.025 mg tablet 01-28 00:00: 00 Yes [id number] 1{tbl} Take 1 tablet by mouth every 6 (six) hours as needed (Diarrhea refractory to loperamide ). [facility] diphenoxyla te-atropine 2.5-0.025 mg tablet 01-28 00:00: 00 Yes [id number] 1{tbl} Take 1 tablet by mouth every 6 (six) hours as needed (Diarrhea refractory to loperamide ). [facility] diphenoxyla te-atropine 2.5-0.025 mg tablet 01-28 00:00: 00 Yes [id number] 1{tbl} Take 1 tablet by mouth every 6 (six) hours as needed (Diarrhea refractory to loperamide ). [facility] diphenoxyla te-atropine 2.5-0.025 mg tablet 01-28 00:00: 00 Yes [id number] 1{tbl} Take 1 tablet by mouth every 6 (six) hours as needed (Diarrhea refractory to loperamide ). [facility] diphenoxyla te-atropine 2.5-0.025 mg tablet 01-28 00:00: 00 Yes [id number] 1{tbl} Take 1 tablet by mouth every 6 (six) hours as needed (Diarrhea refractory to loperamide ). [facility] diphenoxyla te-atropine 2.5-0.025 mg tablet 01-28 00:00: 00 Yes [id number] 1{tbl} Take 1 tablet by mouth every 6 (six) hours as needed (Diarrhea refractory to loperamide ). [facility] diphenoxyla te-atropine 2.5-0.025 mg tablet 01-28 00:00: 00 Yes [id number] 1{tbl} Take 1 tablet by mouth every 6 (six) hours as needed (Diarrhea refractory to loperamide ). [facility] diphenoxyla te-atropine 2.5-0.025 mg tablet 01-28 00:00: 00 Yes [id number] 1{tbl} Take 1 tablet by mouth every 6 (six) hours as needed (Diarrhea refractory to loperamide ). [facility] diphenoxyla te-atropine 2.5-0.025 mg tablet 01-28 00:00: 00 Yes [id number] 1{tbl} Take 1 tablet by mouth every 6 (six) hours as needed (Diarrhea refractory to loperamide ). [facility] diphenoxyla te-atropine 2.5-0.025 mg tablet 01-28 00:00: 00 05-21 00:00 :00 No [id number] 1{tbl} Take 1 tablet by mouth every 6 (six) hours as needed (Diarrhea refractory to loperamide ). [facility] proCHLORper azine 10 mg tablet 01-27 00:00: 00 Yes [id number] 10mg Take 1 tablet by mouth every 6 (six) hours as needed for Nausea and Vomiting (N/V). [facility] ondansetron 4 mg disintegrat ing tablet 01-27 00:00: 00 Yes [id number] 4mg Take 1 tablet by mouth every 8 (eight) hours as needed for Nausea and Vomiting (N/V). [facility] loperamide 2 mg capsule 01-27 00:00: 00 Yes [id number] 4mg Take 2 capsules by mouth every 4 (four) hours as needed for Diarrhea. Take 2 capsules (4 mg) after the first loose stool, then 1 capsule (2 mg) every 4 hours as needed for diarrhea. Maximum 8 capsules per day. [facility] proCHLORper azine 10 mg tablet 01-27 00:00: 00 Yes [id number] 10mg Take 1 tablet by mouth every 6 (six) hours as needed for Nausea and Vomiting (N/V). [facility] ondansetron 4 mg disintegrat ing tablet 01-27 00:00: 00 Yes [id number] 4mg Take 1 tablet by mouth every 8 (eight) hours as needed for Nausea and Vomiting (N/V). [facility] loperamide 2 mg capsule 01-27 00:00: 00 Yes [id number] 4mg Take 2 capsules by mouth every 4 (four) hours as needed for Diarrhea. Take 2 capsules (4 mg) after the first loose stool, then 1 capsule (2 mg) every 4 hours as needed for diarrhea. Maximum 8 capsules per day. [facility] proCHLORper azine 10 mg tablet 01-27 00:00: 00 Yes [id number] 10mg Take 1 tablet by mouth every 6 (six) hours as needed for Nausea and Vomiting (N/V). [facility] ondansetron 4 mg disintegrat ing tablet 01-27 00:00: 00 Yes [id number] 4mg Take 1 tablet by mouth every 8 (eight) hours as needed for Nausea and Vomiting (N/V). [facility] loperamide 2 mg capsule 01-27 00:00: 00 Yes [id number] 4mg Take 2 capsules by mouth every 4 (four) hours as needed for Diarrhea. Take 2 capsules (4 mg) after the first loose stool, then 1 capsule (2 mg) every 4 hours as needed for diarrhea. Maximum 8 capsules per day. [facility] proCHLORper azine 10 mg tablet 01-27 00:00: 00 Yes [id number] 10mg Take 1 tablet by mouth every 6 (six) hours as needed for Nausea and Vomiting (N/V). [facility] ondansetron 4 mg disintegrat ing tablet 01-27 00:00: 00 Yes [id number] 4mg Take 1 tablet by mouth every 8 (eight) hours as needed for Nausea and Vomiting (N/V). [facility] loperamide 2 mg capsule 01-27 00:00: 00 Yes [id number] 4mg Take 2 capsules by mouth every 4 (four) hours as needed for Diarrhea. Take 2 capsules (4 mg) after the first loose stool, then 1 capsule (2 mg) every 4 hours as needed for diarrhea. Maximum 8 capsules per day. [facility] proCHLORper azine 10 mg tablet 01-27 00:00: 00 Yes [id number] 10mg Take 1 tablet by mouth every 6 (six) hours as needed for Nausea and Vomiting (N/V). [facility] ondansetron 4 mg disintegrat ing tablet 01-27 00:00: 00 Yes [id number] 4mg Take 1 tablet by mouth every 8 (eight) hours as needed for Nausea and Vomiting (N/V). [facility] loperamide 2 mg capsule 01-27 00:00: 00 Yes [id number] 4mg Take 2 capsules by mouth every 4 (four) hours as needed for Diarrhea. Take 2 capsules (4 mg) after the first loose stool, then 1 capsule (2 mg) every 4 hours as needed for diarrhea. Maximum 8 capsules per day. [facility] proCHLORper azine 10 mg tablet 01-27 00:00: 00 Yes [id number] 10mg Take 1 tablet by mouth every 6 (six) hours as needed for Nausea and Vomiting (N/V). [facility] ondansetron 4 mg disintegrat ing tablet 01-27 00:00: 00 Yes [id number] 4mg Take 1 tablet by mouth every 8 (eight) hours as needed for Nausea and Vomiting (N/V). [facility] loperamide 2 mg capsule 01-27 00:00: 00 Yes [id number] 4mg Take 2 capsules by mouth every 4 (four) hours as needed for Diarrhea. Take 2 capsules (4 mg) after the first loose stool, then 1 capsule (2 mg) every 4 hours as needed for diarrhea. Maximum 8 capsules per day. [facility] proCHLORper azine 10 mg tablet 01-27 00:00: 00 Yes [id number] 10mg Take 1 tablet by mouth every 6 (six) hours as needed for Nausea and Vomiting (N/V). [facility] ondansetron 4 mg disintegrat ing tablet 01-27 00:00: 00 Yes [id number] 4mg Take 1 tablet by mouth every 8 (eight) hours as needed for Nausea and Vomiting (N/V). [facility] loperamide 2 mg capsule 01-27 00:00: 00 Yes [id number] 4mg Take 2 capsules by mouth every 4 (four) hours as needed for Diarrhea. Take 2 capsules (4 mg) after the first loose stool, then 1 capsule (2 mg) every 4 hours as needed for diarrhea. Maximum 8 capsules per day. [facility] proCHLORper azine 10 mg tablet 01-27 00:00: 00 Yes [id number] 10mg Take 1 tablet by mouth every 6 (six) hours as needed for Nausea and Vomiting (N/V). [facility] ondansetron 4 mg disintegrat ing tablet 01-27 00:00: 00 Yes [id number] 4mg Take 1 tablet by mouth every 8 (eight) hours as needed for Nausea and Vomiting (N/V). [facility] loperamide 2 mg capsule 01-27 00:00: 00 Yes [id number] 4mg Take 2 capsules by mouth every 4 (four) hours as needed for Diarrhea. Take 2 capsules (4 mg) after the first loose stool, then 1 capsule (2 mg) every 4 hours as needed for diarrhea. Maximum 8 capsules per day. [facility] proCHLORper azine 10 mg tablet 01-27 00:00: 00 Yes [id number] 04 10mg Take 1 tablet by mouth every 6 (six) hours as needed for Nausea and Vomiting (N/V). [facility] ondansetron 4 mg disintegrat ing tablet 01-27 00:00: 00 Yes [id number] 04 4mg Take 1 tablet by mouth every 8 (eight) hours as needed for Nausea and Vomiting (N/V). [facility] loperamide 2 mg capsule 01-27 00:00: 00 Yes [id number] 04 4mg Take 2 capsules by mouth every 4 (four) hours as needed for Diarrhea. Take 2 capsules (4 mg) after the first loose stool, then 1 capsule (2 mg) every 4 hours as needed for diarrhea. Maximum 8 capsules per day. [facility] proCHLORper azine 10 mg tablet 01-27 00:00: 00 Yes [id number] 04 10mg Take 1 tablet by mouth every 6 (six) hours as needed for Nausea and Vomiting (N/V). [facility] ondansetron 4 mg disintegrat ing tablet 01-27 00:00: 00 Yes [id number] 04 4mg Take 1 tablet by mouth every 8 (eight) hours as needed for Nausea and Vomiting (N/V). [facility] loperamide 2 mg capsule 01-27 00:00: 00 Yes [id number] 04 4mg Take 2 capsules by mouth every 4 (four) hours as needed for Diarrhea. Take 2 capsules (4 mg) after the first loose stool, then 1 capsule (2 mg) every 4 hours as needed for diarrhea. Maximum 8 capsules per day. [facility] proCHLORper azine 10 mg tablet 01-27 00:00: 00 Yes [id number] 04 10mg Take 1 tablet by mouth every 6 (six) hours as needed for Nausea and Vomiting (N/V). [facility] ondansetron 4 mg disintegrat ing tablet 01-27 00:00: 00 Yes [id number] 04 4mg Take 1 tablet by mouth every 8 (eight) hours as needed for Nausea and Vomiting (N/V). [facility] loperamide 2 mg capsule 01-27 00:00: 00 Yes [id number] 04 4mg Take 2 capsules by mouth every 4 (four) hours as needed for Diarrhea. Take 2 capsules (4 mg) after the first loose stool, then 1 capsule (2 mg) every 4 hours as needed for diarrhea. Maximum 8 capsules per day. [facility] proCHLORper azine 10 mg tablet 01-27 00:00: 00 Yes [id number] 04 10mg Take 1 tablet by mouth every 6 (six) hours as needed for Nausea and Vomiting (N/V). [facility] ondansetron 4 mg disintegrat ing tablet 01-27 00:00: 00 Yes [id number] 04 4mg Take 1 tablet by mouth every 8 (eight) hours as needed for Nausea and Vomiting (N/V). [facility] loperamide 2 mg capsule 01-27 00:00: 00 Yes [id number] 04 4mg Take 2 capsules by mouth every 4 (four) hours as needed for Diarrhea. Take 2 capsules (4 mg) after the first loose stool, then 1 capsule (2 mg) every 4 hours as needed for diarrhea. Maximum 8 capsules per day. [facility] proCHLORper azine 10 mg tablet 01-27 00:00: 00 Yes [id number] 04 10mg Take 1 tablet by mouth every 6 (six) hours as needed for Nausea and Vomiting (N/V). [facility] ondansetron 4 mg disintegrat ing tablet 01-27 00:00: 00 Yes [id number] 04 4mg Take 1 tablet by mouth every 8 (eight) hours as needed for Nausea and Vomiting (N/V). [facility] loperamide 2 mg capsule 01-27 00:00: 00 Yes [id number] 04 4mg Take 2 capsules by mouth every 4 (four) hours as needed for Diarrhea. Take 2 capsules (4 mg) after the first loose stool, then 1 capsule (2 mg) every 4 hours as needed for diarrhea. Maximum 8 capsules per day. [facility] proCHLORper azine 10 mg tablet 01-27 00:00: 00 Yes [id number] 04 10mg Take 1 tablet by mouth every 6 (six) hours as needed for Nausea and Vomiting (N/V). [facility] ondansetron 4 mg disintegrat ing tablet 01-27 00:00: 00 Yes [id number] 04 4mg Take 1 tablet by mouth every 8 (eight) hours as needed for Nausea and Vomiting (N/V). [facility] loperamide 2 mg capsule 01-27 00:00: 00 Yes [id number] 04 4mg Take 2 capsules by mouth every 4 (four) hours as needed for Diarrhea. Take 2 capsules (4 mg) after the first loose stool, then 1 capsule (2 mg) every 4 hours as needed for diarrhea. Maximum 8 capsules per day. [facility] proCHLORper azine 10 mg tablet 01-27 00:00: 00 Yes [id number] 04 10mg Take 1 tablet by mouth every 6 (six) hours as needed for Nausea and Vomiting (N/V). [facility] ondansetron 4 mg disintegrat ing tablet 01-27 00:00: 00 Yes [id number] 04 4mg Take 1 tablet by mouth every 8 (eight) hours as needed for Nausea and Vomiting (N/V). [facility] loperamide 2 mg capsule 01-27 00:00: 00 Yes [id number] 04 4mg Take 2 capsules by mouth every 4 (four) hours as needed for Diarrhea. Take 2 capsules (4 mg) after the first loose stool, then 1 capsule (2 mg) every 4 hours as needed for diarrhea. Maximum 8 capsules per day. [facility] proCHLORper azine 10 mg tablet 01-27 00:00: 00 Yes [id number] 04 10mg Take 1 tablet by mouth every 6 (six) hours as needed for Nausea and Vomiting (N/V). [facility] ondansetron 4 mg disintegrat ing tablet 01-27 00:00: 00 Yes [id number] 04 4mg Take 1 tablet by mouth every 8 (eight) hours as needed for Nausea and Vomiting (N/V). [facility] loperamide 2 mg capsule 01-27 00:00: 00 Yes [id number] 04 4mg Take 2 capsules by mouth every 4 (four) hours as needed for Diarrhea. Take 2 capsules (4 mg) after the first loose stool, then 1 capsule (2 mg) every 4 hours as needed for diarrhea. Maximum 8 capsules per day. [facility] proCHLORper azine 10 mg tablet 01-27 00:00: 00 Yes [id number] 04 10mg Take 1 tablet by mouth every 6 (six) hours as needed for Nausea and Vomiting (N/V). [facility] ondansetron 4 mg disintegrat ing tablet 01-27 00:00: 00 Yes [id number] 04 4mg Take 1 tablet by mouth every 8 (eight) hours as needed for Nausea and Vomiting (N/V). [facility] loperamide 2 mg capsule 01-27 00:00: 00 Yes [id number] 04 4mg Take 2 capsules by mouth every 4 (four) hours as needed for Diarrhea. Take 2 capsules (4 mg) after the first loose stool, then 1 capsule (2 mg) every 4 hours as needed for diarrhea. Maximum 8 capsules per day. [facility] proCHLORper azine 10 mg tablet 01-27 00:00: 00 Yes [id number] 04 10mg Take 1 tablet by mouth every 6 (six) hours as needed for Nausea and Vomiting (N/V). [facility] ondansetron 4 mg disintegrat ing tablet 01-27 00:00: 00 Yes [id number] 04 4mg Take 1 tablet by mouth every 8 (eight) hours as needed for Nausea and Vomiting (N/V). [facility] loperamide 2 mg capsule 01-27 00:00: 00 Yes [id number] 04 4mg Take 2 capsules by mouth every 4 (four) hours as needed for Diarrhea. Take 2 capsules (4 mg) after the first loose stool, then 1 capsule (2 mg) every 4 hours as needed for diarrhea. Maximum 8 capsules per day. [facility] proCHLORper azine 10 mg tablet 01-27 00:00: 00 Yes [id number] 04 10mg Take 1 tablet by mouth every 6 (six) hours as needed for Nausea and Vomiting (N/V). [facility] ondansetron 4 mg disintegrat ing tablet 01-27 00:00: 00 Yes [id number] 04 4mg Take 1 tablet by mouth every 8 (eight) hours as needed for Nausea and Vomiting (N/V). [facility] loperamide 2 mg capsule 01-27 00:00: 00 Yes [id number] 04 4mg Take 2 capsules by mouth every 4 (four) hours as needed for Diarrhea. Take 2 capsules (4 mg) after the first loose stool, then 1 capsule (2 mg) every 4 hours as needed for diarrhea. Maximum 8 capsules per day. [facility] proCHLORper azine 10 mg tablet 01-27 00:00: 00 Yes [id number] 04 10mg Take 1 tablet by mouth every 6 (six) hours as needed for Nausea and Vomiting (N/V). [facility] ondansetron 4 mg disintegrat ing tablet 01-27 00:00: 00 Yes [id number] 04 4mg Take 1 tablet by mouth every 8 (eight) hours as needed for Nausea and Vomiting (N/V). [facility] loperamide 2 mg capsule 01-27 00:00: 00 Yes [id number] 04 4mg Take 2 capsules by mouth every 4 (four) hours as needed for Diarrhea. Take 2 capsules (4 mg) after the first loose stool, then 1 capsule (2 mg) every 4 hours as needed for diarrhea. Maximum 8 capsules per day. [facility] proCHLORper azine 10 mg tablet 01-27 00:00: 00 Yes [id number] 04 10mg Take 1 tablet by mouth every 6 (six) hours as needed for Nausea and Vomiting (N/V). [facility] ondansetron 4 mg disintegrat ing tablet 01-27 00:00: 00 Yes [id number] 04 4mg Take 1 tablet by mouth every 8 (eight) hours as needed for Nausea and Vomiting (N/V). [facility] loperamide 2 mg capsule 01-27 00:00: 00 Yes [id number] 04 4mg Take 2 capsules by mouth every 4 (four) hours as needed for Diarrhea. Take 2 capsules (4 mg) after the first loose stool, then 1 capsule (2 mg) every 4 hours as needed for diarrhea. Maximum 8 capsules per day. [facility] proCHLORper azine 10 mg tablet 01-27 00:00: 00 Yes [id number] 04 10mg Take 1 tablet by mouth every 6 (six) hours as needed for Nausea and Vomiting (N/V). [facility] ondansetron 4 mg disintegrat ing tablet 01-27 00:00: 00 Yes [id number] 04 4mg Take 1 tablet by mouth every 8 (eight) hours as needed for Nausea and Vomiting (N/V). [facility] loperamide 2 mg capsule 01-27 00:00: 00 Yes [id number] 04 4mg Take 2 capsules by mouth every 4 (four) hours as needed for Diarrhea. Take 2 capsules (4 mg) after the first loose stool, then 1 capsule (2 mg) every 4 hours as needed for diarrhea. Maximum 8 capsules per day. [facility] proCHLORper azine 10 mg tablet 01-27 00:00: 00 Yes [id number] 04 10mg Take 1 tablet by mouth every 6 (six) hours as needed for Nausea and Vomiting (N/V). [facility] ondansetron 4 mg disintegrat ing tablet 01-27 00:00: 00 Yes [id number] 04 4mg Take 1 tablet by mouth every 8 (eight) hours as needed for Nausea and Vomiting (N/V). [facility] loperamide 2 mg capsule 01-27 00:00: 00 Yes [id number] 04 4mg Take 2 capsules by mouth every 4 (four) hours as needed for Diarrhea. Take 2 capsules (4 mg) after the first loose stool, then 1 capsule (2 mg) every 4 hours as needed for diarrhea. Maximum 8 capsules per day. [facility] proCHLORper azine 10 mg tablet 01-27 00:00: 00 Yes [id number] 04 10mg Take 1 tablet by mouth every 6 (six) hours as needed for Nausea and Vomiting (N/V). [facility] ondansetron 4 mg disintegrat ing tablet 01-27 00:00: 00 Yes [id number] 04 4mg Take 1 tablet by mouth every 8 (eight) hours as needed for Nausea and Vomiting (N/V). [facility] loperamide 2 mg capsule 01-27 00:00: 00 Yes [id number] 04 4mg Take 2 capsules by mouth every 4 (four) hours as needed for Diarrhea. Take 2 capsules (4 mg) after the first loose stool, then 1 capsule (2 mg) every 4 hours as needed for diarrhea. Maximum 8 capsules per day. [facility] proCHLORper azine 10 mg tablet 01-27 00:00: 00 Yes [id number] 04 10mg Take 1 tablet by mouth every 6 (six) hours as needed for Nausea and Vomiting (N/V). [facility] ondansetron 4 mg disintegrat ing tablet 01-27 00:00: 00 Yes [id number] 04 4mg Take 1 tablet by mouth every 8 (eight) hours as needed for Nausea and Vomiting (N/V). [facility] loperamide 2 mg capsule 01-27 00:00: 00 Yes [id number] 04 4mg Take 2 capsules by mouth every 4 (four) hours as needed for Diarrhea. Take 2 capsules (4 mg) after the first loose stool, then 1 capsule (2 mg) every 4 hours as needed for diarrhea. Maximum 8 capsules per day. [facility] proCHLORper azine 10 mg tablet 01-27 00:00: 00 Yes [id number] 04 10mg Take 1 tablet by mouth every 6 (six) hours as needed for Nausea and Vomiting (N/V). [facility] ondansetron 4 mg disintegrat ing tablet 01-27 00:00: 00 Yes [id number] 04 4mg Take 1 tablet by mouth every 8 (eight) hours as needed for Nausea and Vomiting (N/V). [facility] loperamide 2 mg capsule 01-27 00:00: 00 Yes [id number] 04 4mg Take 2 capsules by mouth every 4 (four) hours as needed for Diarrhea. Take 2 capsules (4 mg) after the first loose stool, then 1 capsule (2 mg) every 4 hours as needed for diarrhea. Maximum 8 capsules per day. [facility] proCHLORper azine 10 mg tablet 01-27 00:00: 00 Yes [id number] 04 10mg Take 1 tablet by mouth every 6 (six) hours as needed for Nausea and Vomiting (N/V). [facility] ondansetron 4 mg disintegrat ing tablet 01-27 00:00: 00 Yes [id number] 04 4mg Take 1 tablet by mouth every 8 (eight) hours as needed for Nausea and Vomiting (N/V). [facility] loperamide 2 mg capsule 01-27 00:00: 00 Yes [id number] 04 4mg Take 2 capsules by mouth every 4 (four) hours as needed for Diarrhea. Take 2 capsules (4 mg) after the first loose stool, then 1 capsule (2 mg) every 4 hours as needed for diarrhea. Maximum 8 capsules per day. [facility] proCHLORper azine 10 mg tablet 01-27 00:00: 00 Yes [id number] 04 10mg Take 1 tablet by mouth every 6 (six) hours as needed for Nausea and Vomiting (N/V). [facility] ondansetron 4 mg disintegrat ing tablet 01-27 00:00: 00 Yes [id number] 04 4mg Take 1 tablet by mouth every 8 (eight) hours as needed for Nausea and Vomiting (N/V). [facility] loperamide 2 mg capsule 01-27 00:00: 00 Yes [id number] 04 4mg Take 2 capsules by mouth every 4 (four) hours as needed for Diarrhea. Take 2 capsules (4 mg) after the first loose stool, then 1 capsule (2 mg) every 4 hours as needed for diarrhea. Maximum 8 capsules per day. [facility] proCHLORper azine 10 mg tablet 01-27 00:00: 00 Yes [id number] 04 10mg Take 1 tablet by mouth every 6 (six) hours as needed for Nausea and Vomiting (N/V). [facility] ondansetron 4 mg disintegrat ing tablet 01-27 00:00: 00 Yes [id number] 04 4mg Take 1 tablet by mouth every 8 (eight) hours as needed for Nausea and Vomiting (N/V). [facility] loperamide 2 mg capsule 01-27 00:00: 00 Yes [id number] 04 4mg Take 2 capsules by mouth every 4 (four) hours as needed for Diarrhea. Take 2 capsules (4 mg) after the first loose stool, then 1 capsule (2 mg) every 4 hours as needed for diarrhea. Maximum 8 capsules per day. [facility] proCHLORper azine 10 mg tablet 01-27 00:00: 00 Yes [id number] 04 10mg Take 1 tablet by mouth every 6 (six) hours as needed for Nausea and Vomiting (N/V). [facility] ondansetron 4 mg disintegrat ing tablet 01-27 00:00: 00 Yes [id number] 04 4mg Take 1 tablet by mouth every 8 (eight) hours as needed for Nausea and Vomiting (N/V). [facility] loperamide 2 mg capsule 01-27 00:00: 00 Yes [id number] 04 4mg Take 2 capsules by mouth every 4 (four) hours as needed for Diarrhea. Take 2 capsules (4 mg) after the first loose stool, then 1 capsule (2 mg) every 4 hours as needed for diarrhea. Maximum 8 capsules per day. [facility] proCHLORper azine 10 mg tablet 01-27 00:00: 00 Yes [id number] 04 10mg Take 1 tablet by mouth every 6 (six) hours as needed for Nausea and Vomiting (N/V). [facility] ondansetron 4 mg disintegrat ing tablet 01-27 00:00: 00 Yes [id number] 04 4mg Take 1 tablet by mouth every 8 (eight) hours as needed for Nausea and Vomiting (N/V). [facility] loperamide 2 mg capsule 01-27 00:00: 00 Yes [id number] 04 4mg Take 2 capsules by mouth every 4 (four) hours as needed for Diarrhea. Take 2 capsules (4 mg) after the first loose stool, then 1 capsule (2 mg) every 4 hours as needed for diarrhea. Maximum 8 capsules per day. [facility] proCHLORper azine 10 mg tablet 01-27 00:00: 00 Yes [id number] 04 10mg Take 1 tablet by mouth every 6 (six) hours as needed for Nausea and Vomiting (N/V). [facility] ondansetron 4 mg disintegrat ing tablet 01-27 00:00: 00 Yes [id number] 04 4mg Take 1 tablet by mouth every 8 (eight) hours as needed for Nausea and Vomiting (N/V). [facility] loperamide 2 mg capsule 01-27 00:00: 00 Yes [id number] 04 4mg Take 2 capsules by mouth every 4 (four) hours as needed for Diarrhea. Take 2 capsules (4 mg) after the first loose stool, then 1 capsule (2 mg) every 4 hours as needed for diarrhea. Maximum 8 capsules per day. [facility] proCHLORper azine 10 mg tablet 01-27 00:00: 00 Yes [id number] 04 10mg Take 1 tablet by mouth every 6 (six) hours as needed for Nausea and Vomiting (N/V). [facility] ondansetron 4 mg disintegrat ing tablet 01-27 00:00: 00 Yes [id number] 04 4mg Take 1 tablet by mouth every 8 (eight) hours as needed for Nausea and Vomiting (N/V). [facility] loperamide 2 mg capsule 01-27 00:00: 00 Yes [id number] 04 4mg Take 2 capsules by mouth every 4 (four) hours as needed for Diarrhea. Take 2 capsules (4 mg) after the first loose stool, then 1 capsule (2 mg) every 4 hours as needed for diarrhea. Maximum 8 capsules per day. [facility] proCHLORper azine 10 mg tablet 01-27 00:00: 00 Yes [id number] 04 10mg Take 1 tablet by mouth every 6 (six) hours as needed for Nausea and Vomiting (N/V). [facility] ondansetron 4 mg disintegrat ing tablet 01-27 00:00: 00 Yes [id number] 04 4mg Take 1 tablet by mouth every 8 (eight) hours as needed for Nausea and Vomiting (N/V). [facility] loperamide 2 mg capsule 01-27 00:00: 00 Yes [id number] 04 4mg Take 2 capsules by mouth every 4 (four) hours as needed for Diarrhea. Take 2 capsules (4 mg) after the first loose stool, then 1 capsule (2 mg) every 4 hours as needed for diarrhea. Maximum 8 capsules per day. [facility] proCHLORper azine 10 mg tablet 01-27 00:00: 00 Yes [id number] 04 10mg Take 1 tablet by mouth every 6 (six) hours as needed for Nausea and Vomiting (N/V). [facility] ondansetron 4 mg disintegrat ing tablet 01-27 00:00: 00 Yes [id number] 04 4mg Take 1 tablet by mouth every 8 (eight) hours as needed for Nausea and Vomiting (N/V). [facility] loperamide 2 mg capsule 01-27 00:00: 00 Yes [id number] 04 4mg Take 2 capsules by mouth every 4 (four) hours as needed for Diarrhea. Take 2 capsules (4 mg) after the first loose stool, then 1 capsule (2 mg) every 4 hours as needed for diarrhea. Maximum 8 capsules per day. [facility] proCHLORper azine 10 mg tablet 01-27 00:00: 00 Yes [id number] 04 10mg Take 1 tablet by mouth every 6 (six) hours as needed for Nausea and Vomiting (N/V). [facility] ondansetron 4 mg disintegrat ing tablet 01-27 00:00: 00 Yes [id number] 04 4mg Take 1 tablet by mouth every 8 (eight) hours as needed for Nausea and Vomiting (N/V). [facility] loperamide 2 mg capsule 01-27 00:00: 00 Yes [id number] 04 4mg Take 2 capsules by mouth every 4 (four) hours as needed for Diarrhea. Take 2 capsules (4 mg) after the first loose stool, then 1 capsule (2 mg) every 4 hours as needed for diarrhea. Maximum 8 capsules per day. [facility] proCHLORper azine 10 mg tablet 01-27 00:00: 00 Yes [id number] 04 10mg Take 1 tablet by mouth every 6 (six) hours as needed for Nausea and Vomiting (N/V). [facility] ondansetron 4 mg disintegrat ing tablet 01-27 00:00: 00 Yes [id number] 04 4mg Take 1 tablet by mouth every 8 (eight) hours as needed for Nausea and Vomiting (N/V). [facility] loperamide 2 mg capsule 01-27 00:00: 00 Yes [id number] 04 4mg Take 2 capsules by mouth every 4 (four) hours as needed for Diarrhea. Take 2 capsules (4 mg) after the first loose stool, then 1 capsule (2 mg) every 4 hours as needed for diarrhea. Maximum 8 capsules per day. [facility] proCHLORper azine 10 mg tablet 01-27 00:00: 00 Yes [id number] 04 10mg Take 1 tablet by mouth every 6 (six) hours as needed for Nausea and Vomiting (N/V). [facility] ondansetron 4 mg disintegrat ing tablet 01-27 00:00: 00 Yes [id number] 04 4mg Take 1 tablet by mouth every 8 (eight) hours as needed for Nausea and Vomiting (N/V). [facility] loperamide 2 mg capsule 01-27 00:00: 00 Yes [id number] 04 4mg Take 2 capsules by mouth every 4 (four) hours as needed for Diarrhea. Take 2 capsules (4 mg) after the first loose stool, then 1 capsule (2 mg) every 4 hours as needed for diarrhea. Maximum 8 capsules per day. [facility] proCHLORper azine 10 mg tablet 01-27 00:00: 00 Yes [id number] 04 10mg Take 1 tablet by mouth every 6 (six) hours as needed for Nausea and Vomiting (N/V). [facility] ondansetron 4 mg disintegrat ing tablet 01-27 00:00: 00 Yes [id number] 04 4mg Take 1 tablet by mouth every 8 (eight) hours as needed for Nausea and Vomiting (N/V). [facility] loperamide 2 mg capsule 01-27 00:00: 00 Yes [id number] 04 4mg Take 2 capsules by mouth every 4 (four) hours as needed for Diarrhea. Take 2 capsules (4 mg) after the first loose stool, then 1 capsule (2 mg) every 4 hours as needed for diarrhea. Maximum 8 capsules per day. [facility]CHLORper azine 10 mg tablet 01-27 00:00: 00 Yes [id number] 04 10mg Take 1 tablet by mouth every 6 (six) hours as needed for Nausea and Vomiting (N/V). [facility] ondansetron 4 mg disintegrat ing tablet 01-27 00:00: 00 Yes [id number] 04 4mg Take 1 tablet by mouth every 8 (eight) hours as needed for Nausea and Vomiting (N/V). [facility] loperamide 2 mg capsule 01-27 00:00: 00 Yes [id number] 04 4mg Take 2 capsules by mouth every 4 (four) hours as needed for Diarrhea. Take 2 capsules (4 mg) after the first loose stool, then 1 capsule (2 mg) every 4 hours as needed for diarrhea. Maximum 8 capsules per day. [facility]CHLORper azine 10 mg tablet 01-27 00:00: 00 Yes [id number] 04 10mg Take 1 tablet by mouth every 6 (six) hours as needed for Nausea and Vomiting (N/V). [facility] ondansetron 4 mg disintegrat ing tablet 01-27 00:00: 00 Yes [id number] 04 4mg Take 1 tablet by mouth every 8 (eight) hours as needed for Nausea and Vomiting (N/V). [facility] loperamide 2 mg capsule 01-27 00:00: 00 Yes [id number] 04 4mg Take 2 capsules by mouth every 4 (four) hours as needed for Diarrhea. Take 2 capsules (4 mg) after the first loose stool, then 1 capsule (2 mg) every 4 hours as needed for diarrhea. Maximum 8 capsules per day. [facility]CHLORper azine 10 mg tablet 01-27 00:00: 00 Yes [id number] 04 10mg Take 1 tablet by mouth every 6 (six) hours as needed for Nausea and Vomiting (N/V). [facility] ondansetron 4 mg disintegrat ing tablet 01-27 00:00: 00 Yes [id number] 04 4mg Take 1 tablet by mouth every 8 (eight) hours as needed for Nausea and Vomiting (N/V). [facility] loperamide 2 mg capsule 01-27 00:00: 00 Yes [id number] 04 4mg Take 2 capsules by mouth every 4 (four) hours as needed for Diarrhea. Take 2 capsules (4 mg) after the first loose stool, then 1 capsule (2 mg) every 4 hours as needed for diarrhea. Maximum 8 capsules per day. [facility]CHLORper azine 10 mg tablet 01-27 00:00: 00 Yes [id number] 04 10mg Take 1 tablet by mouth every 6 (six) hours as needed for Nausea and Vomiting (N/V). [facility] ondansetron 4 mg disintegrat ing tablet 01-27 00:00: 00 Yes [id number] 04 4mg Take 1 tablet by mouth every 8 (eight) hours as needed for Nausea and Vomiting (N/V). [facility] loperamide 2 mg capsule 01-27 00:00: 00 Yes [id number] 04 4mg Take 2 capsules by mouth every 4 (four) hours as needed for Diarrhea. Take 2 capsules (4 mg) after the first loose stool, then 1 capsule (2 mg) every 4 hours as needed for diarrhea. Maximum 8 capsules per day. [facility] azine 10 mg tablet 01-27 00:00: 00 Yes [id number] 04 10mg Take 1 tablet by mouth every 6 (six) hours as needed for Nausea and Vomiting (N/V). [facility] ondansetron 4 mg disintegrat ing tablet 01-27 00:00: 00 Yes [id number] 04 4mg Take 1 tablet by mouth every 8 (eight) hours as needed for Nausea and Vomiting (N/V). [facility] loperamide 2 mg capsule 01-27 00:00: 00 Yes [id number] 04 4mg Take 2 capsules by mouth every 4 (four) hours as needed for Diarrhea. Take 2 capsules (4 mg) after the first loose stool, then 1 capsule (2 mg) every 4 hours as needed for diarrhea. Maximum 8 capsules per day. [facility]CHLORper azine 10 mg tablet 01-27 00:00: 00 Yes [id number] 04 10mg Take 1 tablet by mouth every 6 (six) hours as needed for Nausea and Vomiting (N/V). [facility] ondansetron 4 mg disintegrat ing tablet 01-27 00:00: 00 Yes [id number] 04 4mg Take 1 tablet by mouth every 8 (eight) hours as needed for Nausea and Vomiting (N/V). [facility] loperamide 2 mg capsule 01-27 00:00: 00 Yes [id number] 04 4mg Take 2 capsules by mouth every 4 (four) hours as needed for Diarrhea. Take 2 capsules (4 mg) after the first loose stool, then 1 capsule (2 mg) every 4 hours as needed for diarrhea. Maximum 8 capsules per day. [facility]LORper azine 10 mg tablet 01-27 00:00: 00 Yes [id number] 04 10mg Take 1 tablet by mouth every 6 (six) hours as needed for Nausea and Vomiting (N/V). [facility] ondansetron 4 mg disintegrat ing tablet 01-27 00:00: 00 Yes [id number] 04 4mg Take 1 tablet by mouth every 8 (eight) hours as needed for Nausea and Vomiting (N/V). [facility] loperamide 2 mg capsule 01-27 00:00: 00 Yes [id number] 04 4mg Take 2 capsules by mouth every 4 (four) hours as needed for Diarrhea. Take 2 capsules (4 mg) after the first loose stool, then 1 capsule (2 mg) every 4 hours as needed for diarrhea. Maximum 8 capsules per day. [facility]LOR[facility] azine 10 mg tablet 01-27 00:00: 00 Yes [id number] 04 10mg Take 1 tablet by mouth every 6 (six) hours as needed for Nausea and Vomiting (N/V). [facility] ondansetron 4 mg disintegrat ing tablet 01-27 00:00: 00 Yes [id number] 04 4mg Take 1 tablet by mouth every 8 (eight) hours as needed for Nausea and Vomiting (N/V). [facility] loperamide 2 mg capsule 01-27 00:00: 00 Yes [id number] 04 4mg Take 2 capsules by mouth every 4 (four) hours as needed for Diarrhea. Take 2 capsules (4 mg) after the first loose stool, then 1 capsule (2 mg) every 4 hours as needed for diarrhea. Maximum 8 capsules per day. [facility]CHLORper azine 10 mg tablet 01-27 00:00: 00 Yes [id number] 04 10mg Take 1 tablet by mouth every 6 (six) hours as needed for Nausea and Vomiting (N/V). [facility] ondansetron 4 mg disintegrat ing tablet 01-27 00:00: 00 Yes [id number] 04 4mg Take 1 tablet by mouth every 8 (eight) hours as needed for Nausea and Vomiting (N/V). [facility] loperamide 2 mg capsule 01-27 00:00: 00 Yes [id number] 04 4mg Take 2 capsules by mouth every 4 (four) hours as needed for Diarrhea. Take 2 capsules (4 mg) after the first loose stool, then 1 capsule (2 mg) every 4 hours as needed for diarrhea. Maximum 8 capsules per day. [facility]CHLORper azine 10 mg tablet 01-27 00:00: 00 Yes [id number] 04 10mg Take 1 tablet by mouth every 6 (six) hours as needed for Nausea and Vomiting (N/V). [facility] ondansetron 4 mg disintegrat ing tablet 01-27 00:00: 00 Yes [id number] 04 4mg Take 1 tablet by mouth every 8 (eight) hours as needed for Nausea and Vomiting (N/V). [facility] loperamide 2 mg capsule 01-27 00:00: 00 Yes [id number] 04 4mg Take 2 capsules by mouth every 4 (four) hours as needed for Diarrhea. Take 2 capsules (4 mg) after the first loose stool, then 1 capsule (2 mg) every 4 hours as needed for diarrhea. Maximum 8 capsules per day. [facility]CHLORper azine 10 mg tablet 01-27 00:00: 00 Yes [id number] 04 10mg Take 1 tablet by mouth every 6 (six) hours as needed for Nausea and Vomiting (N/V). [facility] ondansetron 4 mg disintegrat ing tablet 01-27 00:00: 00 Yes [id number] 04 4mg Take 1 tablet by mouth every 8 (eight) hours as needed for Nausea and Vomiting (N/V). [facility] loperamide 2 mg capsule 01-27 00:00: 00 Yes [id number] 04 4mg Take 2 capsules by mouth every 4 (four) hours as needed for Diarrhea. Take 2 capsules (4 mg) after the first loose stool, then 1 capsule (2 mg) every 4 hours as needed for diarrhea. Maximum 8 capsules per day. [facility]CHLORper azine 10 mg tablet 01-27 00:00: 00 Yes [id number] 04 10mg Take 1 tablet by mouth every 6 (six) hours as needed for Nausea and Vomiting (N/V). [facility] ondansetron 4 mg disintegrat ing tablet 01-27 00:00: 00 Yes [id number] 04 4mg Take 1 tablet by mouth every 8 (eight) hours as needed for Nausea and Vomiting (N/V). [facility] loperamide 2 mg capsule 01-27 00:00: 00 Yes [id number] 04 4mg Take 2 capsules by mouth every 4 (four) hours as needed for Diarrhea. Take 2 capsules (4 mg) after the first loose stool, then 1 capsule (2 mg) every 4 hours as needed for diarrhea. Maximum 8 capsules per day. [facility]CHLORper azine 10 mg tablet 01-27 00:00: 00 Yes [id number] 04 10mg Take 1 tablet by mouth every 6 (six) hours as needed for Nausea and Vomiting (N/V). [facility] ondansetron 4 mg disintegrat ing tablet 01-27 00:00: 00 Yes [id number] 04 4mg Take 1 tablet by mouth every 8 (eight) hours as needed for Nausea and Vomiting (N/V). [facility] loperamide 2 mg capsule 01-27 00:00: 00 Yes [id number] 04 4mg Take 2 capsules by mouth every 4 (four) hours as needed for Diarrhea. Take 2 capsules (4 mg) after the first loose stool, then 1 capsule (2 mg) every 4 hours as needed for diarrhea. Maximum 8 capsules per day. [facility] proCHLORper azine 10 mg tablet 01-27 00:00: 00 Yes [id number] 04 10mg Take 1 tablet by mouth every 6 (six) hours as needed for Nausea and Vomiting (N/V). [facility] ondansetron 4 mg disintegrat ing tablet 01-27 00:00: 00 Yes [id number] 04 4mg Take 1 tablet by mouth every 8 (eight) hours as needed for Nausea and Vomiting (N/V). [facility] loperamide 2 mg capsule 01-27 00:00: 00 Yes [id number] 04 4mg Take 2 capsules by mouth every 4 (four) hours as needed for Diarrhea. Take 2 capsules (4 mg) after the first loose stool, then 1 capsule (2 mg) every 4 hours as needed for diarrhea. Maximum 8 capsules per day. [facility]CHLORper azine 10 mg tablet 01-27 00:00: 00 Yes [id number] 04 10mg Take 1 tablet by mouth every 6 (six) hours as needed for Nausea and Vomiting (N/V). [facility] ondansetron 4 mg disintegrat ing tablet 01-27 00:00: 00 Yes [id number] 04 4mg Take 1 tablet by mouth every 8 (eight) hours as needed for Nausea and Vomiting (N/V). [facility] loperamide 2 mg capsule 01-27 00:00: 00 Yes [id number] 04 4mg Take 2 capsules by mouth every 4 (four) hours as needed for Diarrhea. Take 2 capsules (4 mg) after the first loose stool, then 1 capsule (2 mg) every 4 hours as needed for diarrhea. Maximum 8 capsules per day. [facility]CHLORper azine 10 mg tablet 01-27 00:00: 00 Yes [id number] 04 10mg Take 1 tablet by mouth every 6 (six) hours as needed for Nausea and Vomiting (N/V). [facility] ondansetron 4 mg disintegrat ing tablet 01-27 00:00: 00 Yes [id number] 04 4mg Take 1 tablet by mouth every 8 (eight) hours as needed for Nausea and Vomiting (N/V). [facility] loperamide 2 mg capsule 01-27 00:00: 00 Yes [id number] 04 4mg Take 2 capsules by mouth every 4 (four) hours as needed for Diarrhea. Take 2 capsules (4 mg) after the first loose stool, then 1 capsule (2 mg) every 4 hours as needed for diarrhea. Maximum 8 capsules per day. [facility]CHLORper azine 10 mg tablet 01-27 00:00: 00 Yes [id number] 04 10mg Take 1 tablet by mouth every 6 (six) hours as needed for Nausea and Vomiting (N/V). [facility] ondansetron 4 mg disintegrat ing tablet 01-27 00:00: 00 Yes [id number] 04 4mg Take 1 tablet by mouth every 8 (eight) hours as needed for Nausea and Vomiting (N/V). [facility] loperamide 2 mg capsule 01-27 00:00: 00 Yes [id number] 04 4mg Take 2 capsules by mouth every 4 (four) hours as needed for Diarrhea. Take 2 capsules (4 mg) after the first loose stool, then 1 capsule (2 mg) every 4 hours as needed for diarrhea. Maximum 8 capsules per day. [facility]CHLORper azine 10 mg tablet 01-27 00:00: 00 Yes [id number] 04 10mg Take 1 tablet by mouth every 6 (six) hours as needed for Nausea and Vomiting (N/V). [facility] ondansetron 4 mg disintegrat ing tablet 01-27 00:00: 00 Yes [id number] 04 4mg Take 1 tablet by mouth every 8 (eight) hours as needed for Nausea and Vomiting (N/V). [facility] loperamide 2 mg capsule 01-27 00:00: 00 Yes [id number] 04 4mg Take 2 capsules by mouth every 4 (four) hours as needed for Diarrhea. Take 2 capsules (4 mg) after the first loose stool, then 1 capsule (2 mg) every 4 hours as needed for diarrhea. Maximum 8 capsules per day. [facility]CHLORper azine 10 mg tablet 01-27 00:00: 00 Yes [id number] 04 10mg Take 1 tablet by mouth every 6 (six) hours as needed for Nausea and Vomiting (N/V). [facility] ondansetron 4 mg disintegrat ing tablet 01-27 00:00: 00 Yes [id number] 04 4mg Take 1 tablet by mouth every 8 (eight) hours as needed for Nausea and Vomiting (N/V). [facility] loperamide 2 mg capsule 01-27 00:00: 00 Yes [id number] 04 4mg Take 2 capsules by mouth every 4 (four) hours as needed for Diarrhea. Take 2 capsules (4 mg) after the first loose stool, then 1 capsule (2 mg) every 4 hours as needed for diarrhea. Maximum 8 capsules per day. [facility]CHLORper azine 10 mg tablet 01-27 00:00: 00 Yes [id number] 04 10mg Take 1 tablet by mouth every 6 (six) hours as needed for Nausea and Vomiting (N/V). [facility] ondansetron 4 mg disintegrat ing tablet 01-27 00:00: 00 Yes [id number] 04 4mg Take 1 tablet by mouth every 8 (eight) hours as needed for Nausea and Vomiting (N/V). [facility] loperamide 2 mg capsule 01-27 00:00: 00 Yes [id number] 04 4mg Take 2 capsules by mouth every 4 (four) hours as needed for Diarrhea. Take 2 capsules (4 mg) after the first loose stool, then 1 capsule (2 mg) every 4 hours as needed for diarrhea. Maximum 8 capsules per day. [facility]LORper azine 10 mg tablet 01-27 00:00: 00 Yes [id number] 04 10mg Take 1 tablet by mouth every 6 (six) hours as needed for Nausea and Vomiting (N/V). [facility] ondansetron 4 mg disintegrat ing tablet 01-27 00:00: 00 Yes [id number] 04 4mg Take 1 tablet by mouth every 8 (eight) hours as needed for Nausea and Vomiting (N/V). [facility] loperamide 2 mg capsule 01-27 00:00: 00 Yes [id number] 04 4mg Take 2 capsules by mouth every 4 (four) hours as needed for Diarrhea. Take 2 capsules (4 mg) after the first loose stool, then 1 capsule (2 mg) every 4 hours as needed for diarrhea. Maximum 8 capsules per day. [facility] proCHLORper azine 10 mg tablet 01-27 00:00: 00 Yes [id number] 04 10mg Take 1 tablet by mouth every 6 (six) hours as needed for Nausea and Vomiting (N/V). [facility] ondansetron 4 mg disintegrat ing tablet 01-27 00:00: 00 Yes [id number] 04 4mg Take 1 tablet by mouth every 8 (eight) hours as needed for Nausea and Vomiting (N/V). [facility] loperamide 2 mg capsule 01-27 00:00: 00 Yes [id number] 04 4mg Take 2 capsules by mouth every 4 (four) hours as needed for Diarrhea. Take 2 capsules (4 mg) after the first loose stool, then 1 capsule (2 mg) every 4 hours as needed for diarrhea. Maximum 8 capsules per day. [facility]CHLORper azine 10 mg tablet 01-27 00:00: 00 Yes [id number] 04 10mg Take 1 tablet by mouth every 6 (six) hours as needed for Nausea and Vomiting (N/V). [facility] ondansetron 4 mg disintegrat ing tablet 01-27 00:00: 00 Yes [id number] 04 4mg Take 1 tablet by mouth every 8 (eight) hours as needed for Nausea and Vomiting (N/V). [facility] loperamide 2 mg capsule 01-27 00:00: 00 Yes [id number] 04 4mg Take 2 capsules by mouth every 4 (four) hours as needed for Diarrhea. Take 2 capsules (4 mg) after the first loose stool, then 1 capsule (2 mg) every 4 hours as needed for diarrhea. Maximum 8 capsules per day. [facility]CHLORper azine 10 mg tablet 01-27 00:00: 00 Yes [id number] 04 10mg Take 1 tablet by mouth every 6 (six) hours as needed for Nausea and Vomiting (N/V). [facility] ondansetron 4 mg disintegrat ing tablet 01-27 00:00: 00 Yes [id number] 04 4mg Take 1 tablet by mouth every 8 (eight) hours as needed for Nausea and Vomiting (N/V). [facility] loperamide 2 mg capsule 01-27 00:00: 00 Yes [id number] 04 4mg Take 2 capsules by mouth every 4 (four) hours as needed for Diarrhea. Take 2 capsules (4 mg) after the first loose stool, then 1 capsule (2 mg) every 4 hours as needed for diarrhea. Maximum 8 capsules per day. [facility]LORper azine 10 mg tablet 01-27 00:00: 00 Yes [id number] 04 10mg Take 1 tablet by mouth every 6 (six) hours as needed for Nausea and Vomiting (N/V). [facility] ondansetron 4 mg disintegrat ing tablet 01-27 00:00: 00 Yes [id number] 04 4mg Take 1 tablet by mouth every 8 (eight) hours as needed for Nausea and Vomiting (N/V). [facility] loperamide 2 mg capsule 01-27 00:00: 00 Yes [id number] 04 4mg Take 2 capsules by mouth every 4 (four) hours as needed for Diarrhea. Take 2 capsules (4 mg) after the first loose stool, then 1 capsule (2 mg) every 4 hours as needed for diarrhea. Maximum 8 capsules per day. [facility]CHLORper azine 10 mg tablet 01-27 00:00: 00 Yes [id number] 04 10mg Take 1 tablet by mouth every 6 (six) hours as needed for Nausea and Vomiting (N/V). [facility] ondansetron 4 mg disintegrat ing tablet 01-27 00:00: 00 Yes [id number] 04 4mg Take 1 tablet by mouth every 8 (eight) hours as needed for Nausea and Vomiting (N/V). [facility] loperamide 2 mg capsule 01-27 00:00: 00 Yes [id number] 04 4mg Take 2 capsules by mouth every 4 (four) hours as needed for Diarrhea. Take 2 capsules (4 mg) after the first loose stool, then 1 capsule (2 mg) every 4 hours as needed for diarrhea. Maximum 8 capsules per day. [facility]LOR[facility] azine 10 mg tablet 01-27 00:00: 00 Yes [id number] 04 10mg Take 1 tablet by mouth every 6 (six) hours as needed for Nausea and Vomiting (N/V). [facility] ondansetron 4 mg disintegrat ing tablet 01-27 00:00: 00 Yes [id number] 04 4mg Take 1 tablet by mouth every 8 (eight) hours as needed for Nausea and Vomiting (N/V). [facility] loperamide 2 mg capsule 01-27 00:00: 00 Yes [id number] 04 4mg Take 2 capsules by mouth every 4 (four) hours as needed for Diarrhea. Take 2 capsules (4 mg) after the first loose stool, then 1 capsule (2 mg) every 4 hours as needed for diarrhea. Maximum 8 capsules per day. [facility]CHLORper azine 10 mg tablet 01-27 00:00: 00 Yes [id number] 04 10mg Take 1 tablet by mouth every 6 (six) hours as needed for Nausea and Vomiting (N/V). [facility] ondansetron 4 mg disintegrat ing tablet 01-27 00:00: 00 Yes [id number] 04 4mg Take 1 tablet by mouth every 8 (eight) hours as needed for Nausea and Vomiting (N/V). [facility] loperamide 2 mg capsule 01-27 00:00: 00 Yes [id number] 04 4mg Take 2 capsules by mouth every 4 (four) hours as needed for Diarrhea. Take 2 capsules (4 mg) after the first loose stool, then 1 capsule (2 mg) every 4 hours as needed for diarrhea. Maximum 8 capsules per day. [facility]CHLORper azine 10 mg tablet 01-27 00:00: 00 Yes [id number] 04 10mg Take 1 tablet by mouth every 6 (six) hours as needed for Nausea and Vomiting (N/V). [facility] ondansetron 4 mg disintegrat ing tablet 01-27 00:00: 00 Yes [id number] 04 4mg Take 1 tablet by mouth every 8 (eight) hours as needed for Nausea and Vomiting (N/V). [facility] loperamide 2 mg capsule 01-27 00:00: 00 Yes [id number] 04 4mg Take 2 capsules by mouth every 4 (four) hours as needed for Diarrhea. Take 2 capsules (4 mg) after the first loose stool, then 1 capsule (2 mg) every 4 hours as needed for diarrhea. Maximum 8 capsules per day. [facility] proCHLORper azine 10 mg tablet 01-27 00:00: 00 Yes [id number] 04 10mg Take 1 tablet by mouth every 6 (six) hours as needed for Nausea and Vomiting (N/V). [facility] ondansetron 4 mg disintegrat ing tablet 01-27 00:00: 00 Yes [id number] 04 4mg Take 1 tablet by mouth every 8 (eight) hours as needed for Nausea and Vomiting (N/V). [facility] loperamide 2 mg capsule 01-27 00:00: 00 Yes [id number] 04 4mg Take 2 capsules by mouth every 4 (four) hours as needed for Diarrhea. Take 2 capsules (4 mg) after the first loose stool, then 1 capsule (2 mg) every 4 hours as needed for diarrhea. Maximum 8 capsules per day. [facility] proCHLORper azine 10 mg tablet 01-27 00:00: 00 Yes [id number] 04 10mg Take 1 tablet by mouth every 6 (six) hours as needed for Nausea and Vomiting (N/V). [facility] ondansetron 4 mg disintegrat ing tablet 01-27 00:00: 00 Yes [id number] 04 4mg Take 1 tablet by mouth every 8 (eight) hours as needed for Nausea and Vomiting (N/V). [facility] loperamide 2 mg capsule 01-27 00:00: 00 Yes [id number] 04 4mg Take 2 capsules by mouth every 4 (four) hours as needed for Diarrhea. Take 2 capsules (4 mg) after the first loose stool, then 1 capsule (2 mg) every 4 hours as needed for diarrhea. Maximum 8 capsules per day. [facility] proCHLORper azine 10 mg tablet 01-27 00:00: 00 Yes [id number] 04 10mg Take 1 tablet by mouth every 6 (six) hours as needed for Nausea and Vomiting (N/V). [facility] ondansetron 4 mg disintegrat ing tablet 01-27 00:00: 00 Yes [id number] 04 4mg Take 1 tablet by mouth every 8 (eight) hours as needed for Nausea and Vomiting (N/V). [facility] loperamide 2 mg capsule 01-27 00:00: 00 Yes [id number] 04 4mg Take 2 capsules by mouth every 4 (four) hours as needed for Diarrhea. Take 2 capsules (4 mg) after the first loose stool, then 1 capsule (2 mg) every 4 hours as needed for diarrhea. Maximum 8 capsules per day. [facility] proCHLORper azine 10 mg tablet 01-27 00:00: 00 Yes [id number] 04 10mg Take 1 tablet by mouth every 6 (six) hours as needed for Nausea and Vomiting (N/V). [facility] ondansetron 4 mg disintegrat ing tablet 01-27 00:00: 00 Yes [id number] 04 4mg Take 1 tablet by mouth every 8 (eight) hours as needed for Nausea and Vomiting (N/V). [facility] loperamide 2 mg capsule 01-27 00:00: 00 Yes [id number] 04 4mg Take 2 capsules by mouth every 4 (four) hours as needed for Diarrhea. Take 2 capsules (4 mg) after the first loose stool, then 1 capsule (2 mg) every 4 hours as needed for diarrhea. Maximum 8 capsules per day. [facility] proCHLORper azine 10 mg tablet 01-27 00:00: 00 Yes [id number] 04 10mg Take 1 tablet by mouth every 6 (six) hours as needed for Nausea and Vomiting (N/V). [facility] ondansetron 4 mg disintegrat ing tablet 01-27 00:00: 00 Yes [id number] 04 4mg Take 1 tablet by mouth every 8 (eight) hours as needed for Nausea and Vomiting (N/V). [facility] loperamide 2 mg capsule 01-27 00:00: 00 Yes [id number] 04 4mg Take 2 capsules by mouth every 4 (four) hours as needed for Diarrhea. Take 2 capsules (4 mg) after the first loose stool, then 1 capsule (2 mg) every 4 hours as needed for diarrhea. Maximum 8 capsules per day. [facility] proCHLORper azine 10 mg tablet 01-27 00:00: 00 Yes [id number] 04 10mg Take 1 tablet by mouth every 6 (six) hours as needed for Nausea and Vomiting (N/V). [facility] ondansetron 4 mg disintegrat ing tablet 01-27 00:00: 00 Yes [id number] 04 4mg Take 1 tablet by mouth every 8 (eight) hours as needed for Nausea and Vomiting (N/V). [facility] loperamide 2 mg capsule 01-27 00:00: 00 Yes [id number] 04 4mg Take 2 capsules by mouth every 4 (four) hours as needed for Diarrhea. Take 2 capsules (4 mg) after the first loose stool, then 1 capsule (2 mg) every 4 hours as needed for diarrhea. Maximum 8 capsules per day. [facility] proCHLORper azine 10 mg tablet 01-27 00:00: 00 Yes [id number] 04 10mg Take 1 tablet by mouth every 6 (six) hours as needed for Nausea and Vomiting (N/V). [facility] ondansetron 4 mg disintegrat ing tablet 01-27 00:00: 00 Yes [id number] 04 4mg Take 1 tablet by mouth every 8 (eight) hours as needed for Nausea and Vomiting (N/V). [facility] loperamide 2 mg capsule 01-27 00:00: 00 Yes [id number] 04 4mg Take 2 capsules by mouth every 4 (four) hours as needed for Diarrhea. Take 2 capsules (4 mg) after the first loose stool, then 1 capsule (2 mg) every 4 hours as needed for diarrhea. Maximum 8 capsules per day. [facility] proCHLORper azine 10 mg tablet 01-27 00:00: 00 Yes [id number] 04 10mg Take 1 tablet by mouth every 6 (six) hours as needed for Nausea and Vomiting (N/V). [facility] ondansetron 4 mg disintegrat ing tablet 01-27 00:00: 00 Yes [id number] 04 4mg Take 1 tablet by mouth every 8 (eight) hours as needed for Nausea and Vomiting (N/V). [facility] loperamide 2 mg capsule 01-27 00:00: 00 Yes [id number] 04 4mg Take 2 capsules by mouth every 4 (four) hours as needed for Diarrhea. Take 2 capsules (4 mg) after the first loose stool, then 1 capsule (2 mg) every 4 hours as needed for diarrhea. Maximum 8 capsules per day. [facility] proCHLORper azine 10 mg tablet 01-27 00:00: 00 Yes [id number] 04 10mg Take 1 tablet by mouth every 6 (six) hours as needed for Nausea and Vomiting (N/V). [facility] ondansetron 4 mg disintegrat ing tablet 01-27 00:00: 00 Yes [id number] 04 4mg Take 1 tablet by mouth every 8 (eight) hours as needed for Nausea and Vomiting (N/V). [facility] loperamide 2 mg capsule 01-27 00:00: 00 Yes [id number] 04 4mg Take 2 capsules by mouth every 4 (four) hours as needed for Diarrhea. Take 2 capsules (4 mg) after the first loose stool, then 1 capsule (2 mg) every 4 hours as needed for diarrhea. Maximum 8 capsules per day. [facility] proCHLORper azine 10 mg tablet 01-27 00:00: 00 Yes [id number] 04 10mg Take 1 tablet by mouth every 6 (six) hours as needed for Nausea and Vomiting (N/V). [facility] ondansetron 4 mg disintegrat ing tablet 01-27 00:00: 00 Yes [id number] 04 4mg Take 1 tablet by mouth every 8 (eight) hours as needed for Nausea and Vomiting (N/V). [facility] loperamide 2 mg capsule 01-27 00:00: 00 Yes [id number] 04 4mg Take 2 capsules by mouth every 4 (four) hours as needed for Diarrhea. Take 2 capsules (4 mg) after the first loose stool, then 1 capsule (2 mg) every 4 hours as needed for diarrhea. Maximum 8 capsules per day. [facility] proCHLORper azine 10 mg tablet 01-27 00:00: 00 Yes [id number] 04 10mg Take 1 tablet by mouth every 6 (six) hours as needed for Nausea and Vomiting (N/V). [facility] ondansetron 4 mg disintegrat ing tablet 01-27 00:00: 00 Yes [id number] 04 4mg Take 1 tablet by mouth every 8 (eight) hours as needed for Nausea and Vomiting (N/V). [facility] loperamide 2 mg capsule 01-27 00:00: 00 Yes [id number] 04 4mg Take 2 capsules by mouth every 4 (four) hours as needed for Diarrhea. Take 2 capsules (4 mg) after the first loose stool, then 1 capsule (2 mg) every 4 hours as needed for diarrhea. Maximum 8 capsules per day. [facility] proCHLORper azine 10 mg tablet 01-27 00:00: 00 Yes [id number] 04 10mg Take 1 tablet by mouth every 6 (six) hours as needed for Nausea and Vomiting (N/V). [facility] ondansetron 4 mg disintegrat ing tablet 01-27 00:00: 00 Yes [id number] 04 4mg Take 1 tablet by mouth every 8 (eight) hours as needed for Nausea and Vomiting (N/V). [facility] loperamide 2 mg capsule 01-27 00:00: 00 Yes [id number] 04 4mg Take 2 capsules by mouth every 4 (four) hours as needed for Diarrhea. Take 2 capsules (4 mg) after the first loose stool, then 1 capsule (2 mg) every 4 hours as needed for diarrhea. Maximum 8 capsules per day. [facility] proCHLORper azine 10 mg tablet 01-27 00:00: 00 Yes [id number] 04 10mg Take 1 tablet by mouth every 6 (six) hours as needed for Nausea and Vomiting (N/V). [facility] ondansetron 4 mg disintegrat ing tablet 01-27 00:00: 00 Yes [id number] 04 4mg Take 1 tablet by mouth every 8 (eight) hours as needed for Nausea and Vomiting (N/V). [facility] loperamide 2 mg capsule 01-27 00:00: 00 Yes [id number] 04 4mg Take 2 capsules by mouth every 4 (four) hours as needed for Diarrhea. Take 2 capsules (4 mg) after the first loose stool, then 1 capsule (2 mg) every 4 hours as needed for diarrhea. Maximum 8 capsules per day. [facility] proCHLORper azine 10 mg tablet 01-27 00:00: 00 Yes [id number] 04 10mg Take 1 tablet by mouth every 6 (six) hours as needed for Nausea and Vomiting (N/V). [facility] ondansetron 4 mg disintegrat ing tablet 01-27 00:00: 00 Yes [id number] 04 4mg Take 1 tablet by mouth every 8 (eight) hours as needed for Nausea and Vomiting (N/V). [facility] loperamide 2 mg capsule 01-27 00:00: 00 Yes [id number] 04 4mg Take 2 capsules by mouth every 4 (four) hours as needed for Diarrhea. Take 2 capsules (4 mg) after the first loose stool, then 1 capsule (2 mg) every 4 hours as needed for diarrhea. Maximum 8 capsules per day. [facility] proCHLORper azine 10 mg tablet 01-27 00:00: 00 Yes [id number] 04 10mg Take 1 tablet by mouth every 6 (six) hours as needed for Nausea and Vomiting (N/V). [facility] ondansetron 4 mg disintegrat ing tablet 01-27 00:00: 00 Yes [id number] 04 4mg Take 1 tablet by mouth every 8 (eight) hours as needed for Nausea and Vomiting (N/V). [facility] loperamide 2 mg capsule 01-27 00:00: 00 Yes [id number] 04 4mg Take 2 capsules by mouth every 4 (four) hours as needed for Diarrhea. Take 2 capsules (4 mg) after the first loose stool, then 1 capsule (2 mg) every 4 hours as needed for diarrhea. Maximum 8 capsules per day. [facility] proCHLORper azine 10 mg tablet 01-27 00:00: 00 Yes [id number] 04 10mg Take 1 tablet by mouth every 6 (six) hours as needed for Nausea and Vomiting (N/V). [facility] ondansetron 4 mg disintegrat ing tablet 01-27 00:00: 00 Yes [id number] 04 4mg Take 1 tablet by mouth every 8 (eight) hours as needed for Nausea and Vomiting (N/V). [facility] loperamide 2 mg capsule 01-27 00:00: 00 Yes [id number] 04 4mg Take 2 capsules by mouth every 4 (four) hours as needed for Diarrhea. Take 2 capsules (4 mg) after the first loose stool, then 1 capsule (2 mg) every 4 hours as needed for diarrhea. Maximum 8 capsules per day. [facility] proCHLORper azine 10 mg tablet 01-27 00:00: 00 Yes [id number] 04 10mg Take 1 tablet by mouth every 6 (six) hours as needed for Nausea and Vomiting (N/V). [facility] ondansetron 4 mg disintegrat ing tablet 01-27 00:00: 00 Yes [id number] 04 4mg Take 1 tablet by mouth every 8 (eight) hours as needed for Nausea and Vomiting (N/V). [facility] loperamide 2 mg capsule 01-27 00:00: 00 Yes [id number] 04 4mg Take 2 capsules by mouth every 4 (four) hours as needed for Diarrhea. Take 2 capsules (4 mg) after the first loose stool, then 1 capsule (2 mg) every 4 hours as needed for diarrhea. Maximum 8 capsules per day. [facility] proCHLORper azine 10 mg tablet 01-27 00:00: 00 Yes [id number] 04 10mg Take 1 tablet by mouth every 6 (six) hours as needed for Nausea and Vomiting (N/V). [facility] ondansetron 4 mg disintegrat ing tablet 01-27 00:00: 00 Yes [id number] 04 4mg Take 1 tablet by mouth every 8 (eight) hours as needed for Nausea and Vomiting (N/V). [facility] loperamide 2 mg capsule 01-27 00:00: 00 Yes [id number] 04 4mg Take 2 capsules by mouth every 4 (four) hours as needed for Diarrhea. Take 2 capsules (4 mg) after the first loose stool, then 1 capsule (2 mg) every 4 hours as needed for diarrhea. Maximum 8 capsules per day. [facility] proCHLORper azine 10 mg tablet 01-27 00:00: 00 Yes [id number] 04 10mg Take 1 tablet by mouth every 6 (six) hours as needed for Nausea and Vomiting (N/V). [facility] ondansetron 4 mg disintegrat ing tablet 01-27 00:00: 00 Yes [id number] 04 4mg Take 1 tablet by mouth every 8 (eight) hours as needed for Nausea and Vomiting (N/V). [facility] loperamide 2 mg capsule 01-27 00:00: 00 Yes [id number] 04 4mg Take 2 capsules by mouth every 4 (four) hours as needed for Diarrhea. Take 2 capsules (4 mg) after the first loose stool, then 1 capsule (2 mg) every 4 hours as needed for diarrhea. Maximum 8 capsules per day. [facility] proCHLORper azine 10 mg tablet 01-27 00:00: 00 Yes [id number] 04 10mg Take 1 tablet by mouth every 6 (six) hours as needed for Nausea and Vomiting (N/V). [facility] ondansetron 4 mg disintegrat ing tablet 01-27 00:00: 00 Yes [id number] 04 4mg Take 1 tablet by mouth every 8 (eight) hours as needed for Nausea and Vomiting (N/V). [facility] loperamide 2 mg capsule 01-27 00:00: 00 Yes [id number] 04 4mg Take 2 capsules by mouth every 4 (four) hours as needed for Diarrhea. Take 2 capsules (4 mg) after the first loose stool, then 1 capsule (2 mg) every 4 hours as needed for diarrhea. Maximum 8 capsules per day. [facility] proCHLORper azine 10 mg tablet 01-27 00:00: 00 Yes [id number] 04 10mg Take 1 tablet by mouth every 6 (six) hours as needed for Nausea and Vomiting (N/V). [facility] ondansetron 4 mg disintegrat ing tablet 01-27 00:00: 00 Yes [id number] 04 4mg Take 1 tablet by mouth every 8 (eight) hours as needed for Nausea and Vomiting (N/V). [facility] loperamide 2 mg capsule 01-27 00:00: 00 Yes [id number] 04 4mg Take 2 capsules by mouth every 4 (four) hours as needed for Diarrhea. Take 2 capsules (4 mg) after the first loose stool, then 1 capsule (2 mg) every 4 hours as needed for diarrhea. Maximum 8 capsules per day. [facility] proCHLORper azine 10 mg tablet 01-27 00:00: 00 Yes [id number] 04 10mg Take 1 tablet by mouth every 6 (six) hours as needed for Nausea and Vomiting (N/V). [facility] ondansetron 4 mg disintegrat ing tablet 01-27 00:00: 00 Yes [id number] 04 4mg Take 1 tablet by mouth every 8 (eight) hours as needed for Nausea and Vomiting (N/V). [facility] loperamide 2 mg capsule 01-27 00:00: 00 Yes [id number] 04 4mg Take 2 capsules by mouth every 4 (four) hours as needed for Diarrhea. Take 2 capsules (4 mg) after the first loose stool, then 1 capsule (2 mg) every 4 hours as needed for diarrhea. Maximum 8 capsules per day. [facility] proCHLORper azine 10 mg tablet 01-27 00:00: 00 Yes [id number] 04 10mg Take 1 tablet by mouth every 6 (six) hours as needed for Nausea and Vomiting (N/V). [facility] ondansetron 4 mg disintegrat ing tablet 01-27 00:00: 00 Yes [id number] 04 4mg Take 1 tablet by mouth every 8 (eight) hours as needed for Nausea and Vomiting (N/V). [facility] loperamide 2 mg capsule 01-27 00:00: 00 Yes [id number] 04 4mg Take 2 capsules by mouth every 4 (four) hours as needed for Diarrhea. Take 2 capsules (4 mg) after the first loose stool, then 1 capsule (2 mg) every 4 hours as needed for diarrhea. Maximum 8 capsules per day. [facility] proCHLORper azine 10 mg tablet 01-27 00:00: 00 Yes [id number] 04 10mg Take 1 tablet by mouth every 6 (six) hours as needed for Nausea and Vomiting (N/V). [facility] ondansetron 4 mg disintegrat ing tablet 01-27 00:00: 00 Yes [id number] 04 4mg Take 1 tablet by mouth every 8 (eight) hours as needed for Nausea and Vomiting (N/V). [facility] loperamide 2 mg capsule 01-27 00:00: 00 Yes [id number] 04 4mg Take 2 capsules by mouth every 4 (four) hours as needed for Diarrhea. Take 2 capsules (4 mg) after the first loose stool, then 1 capsule (2 mg) every 4 hours as needed for diarrhea. Maximum 8 capsules per day. [facility] proCHLORper azine 10 mg tablet 01-27 00:00: 00 Yes [id number] 04 10mg Take 1 tablet by mouth every 6 (six) hours as needed for Nausea and Vomiting (N/V). [facility] ondansetron 4 mg disintegrat ing tablet 01-27 00:00: 00 Yes [id number] 04 4mg Take 1 tablet by mouth every 8 (eight) hours as needed for Nausea and Vomiting (N/V). [facility] loperamide 2 mg capsule 01-27 00:00: 00 Yes [id number] 04 4mg Take 2 capsules by mouth every 4 (four) hours as needed for Diarrhea. Take 2 capsules (4 mg) after the first loose stool, then 1 capsule (2 mg) every 4 hours as needed for diarrhea. Maximum 8 capsules per day. [facility] proCHLORper azine 10 mg tablet 01-27 00:00: 00 Yes [id number] 04 10mg Take 1 tablet by mouth every 6 (six) hours as needed for Nausea and Vomiting (N/V). [facility] ondansetron 4 mg disintegrat ing tablet 01-27 00:00: 00 Yes [id number] 04 4mg Take 1 tablet by mouth every 8 (eight) hours as needed for Nausea and Vomiting (N/V). [facility] loperamide 2 mg capsule 01-27 00:00: 00 Yes [id number] 04 4mg Take 2 capsules by mouth every 4 (four) hours as needed for Diarrhea. Take 2 capsules (4 mg) after the first loose stool, then 1 capsule (2 mg) every 4 hours as needed for diarrhea. Maximum 8 capsules per day. [facility] proCHLORper azine 10 mg tablet 01-27 00:00: 00 Yes [id number] 04 10mg Take 1 tablet by mouth every 6 (six) hours as needed for Nausea and Vomiting (N/V). [facility] ondansetron 4 mg disintegrat ing tablet 01-27 00:00: 00 Yes [id number] 04 4mg Take 1 tablet by mouth every 8 (eight) hours as needed for Nausea and Vomiting (N/V). [facility] loperamide 2 mg capsule 01-27 00:00: 00 Yes [id number] 04 4mg Take 2 capsules by mouth every 4 (four) hours as needed for Diarrhea. Take 2 capsules (4 mg) after the first loose stool, then 1 capsule (2 mg) every 4 hours as needed for diarrhea. Maximum 8 capsules per day. [facility] proCHLORper azine 10 mg tablet 01-27 00:00: 00 Yes [id number] 04 10mg Take 1 tablet by mouth every 6 (six) hours as needed for Nausea and Vomiting (N/V). [facility] ondansetron 4 mg disintegrat ing tablet 01-27 00:00: 00 Yes [id number] 04 4mg Take 1 tablet by mouth every 8 (eight) hours as needed for Nausea and Vomiting (N/V). [facility] loperamide 2 mg capsule 01-27 00:00: 00 Yes [id number] 04 4mg Take 2 capsules by mouth every 4 (four) hours as needed for Diarrhea. Take 2 capsules (4 mg) after the first loose stool, then 1 capsule (2 mg) every 4 hours as needed for diarrhea. Maximum 8 capsules per day. [facility] proCHLORper azine 10 mg tablet 01-27 00:00: 00 Yes [id number] 04 10mg Take 1 tablet by mouth every 6 (six) hours as needed for Nausea and Vomiting (N/V). [facility] ondansetron 4 mg disintegrat ing tablet 01-27 00:00: 00 Yes [id number] 04 4mg Take 1 tablet by mouth every 8 (eight) hours as needed for Nausea and Vomiting (N/V). [facility] loperamide 2 mg capsule 01-27 00:00: 00 Yes [id number] 04 4mg Take 2 capsules by mouth every 4 (four) hours as needed for Diarrhea. Take 2 capsules (4 mg) after the first loose stool, then 1 capsule (2 mg) every 4 hours as needed for diarrhea. Maximum 8 capsules per day. [facility] proCHLORper azine 10 mg tablet 01-27 00:00: 00 Yes [id number] 04 10mg Take 1 tablet by mouth every 6 (six) hours as needed for Nausea and Vomiting (N/V). [facility] ondansetron 4 mg disintegrat ing tablet 01-27 00:00: 00 Yes [id number] 04 4mg Take 1 tablet by mouth every 8 (eight) hours as needed for Nausea and Vomiting (N/V). [facility] loperamide 2 mg capsule 01-27 00:00: 00 Yes [id number] 04 4mg Take 2 capsules by mouth every 4 (four) hours as needed for Diarrhea. Take 2 capsules (4 mg) after the first loose stool, then 1 capsule (2 mg) every 4 hours as needed for diarrhea. Maximum 8 capsules per day. [facility] proCHLORper azine 10 mg tablet 01-27 00:00: 00 Yes [id number] 04 10mg Take 1 tablet by mouth every 6 (six) hours as needed for Nausea and Vomiting (N/V). [facility] ondansetron 4 mg disintegrat ing tablet 01-27 00:00: 00 Yes [id number] 04 4mg Take 1 tablet by mouth every 8 (eight) hours as needed for Nausea and Vomiting (N/V). [facility] loperamide 2 mg capsule 01-27 00:00: 00 Yes [id number] 04 4mg Take 2 capsules by mouth every 4 (four) hours as needed for Diarrhea. Take 2 capsules (4 mg) after the first loose stool, then 1 capsule (2 mg) every 4 hours as needed for diarrhea. Maximum 8 capsules per day. [facility] proCHLORper azine 10 mg tablet 01-27 00:00: 00 Yes [id number] 04 10mg Take 1 tablet by mouth every 6 (six) hours as needed for Nausea and Vomiting (N/V). [facility] ondansetron 4 mg disintegrat ing tablet 01-27 00:00: 00 Yes [id number] 04 4mg Take 1 tablet by mouth every 8 (eight) hours as needed for Nausea and Vomiting (N/V). [facility] loperamide 2 mg capsule 01-27 00:00: 00 Yes [id number] 04 4mg Take 2 capsules by mouth every 4 (four) hours as needed for Diarrhea. Take 2 capsules (4 mg) after the first loose stool, then 1 capsule (2 mg) every 4 hours as needed for diarrhea. Maximum 8 capsules per day. [facility] proCHLORper azine 10 mg tablet 01-27 00:00: 00 Yes [id number] 04 10mg Take 1 tablet by mouth every 6 (six) hours as needed for Nausea and Vomiting (N/V). [facility] ondansetron 4 mg disintegrat ing tablet 01-27 00:00: 00 Yes [id number] 04 4mg Take 1 tablet by mouth every 8 (eight) hours as needed for Nausea and Vomiting (N/V). [facility] loperamide 2 mg capsule 01-27 00:00: 00 Yes [id number] 04 4mg Take 2 capsules by mouth every 4 (four) hours as needed for Diarrhea. Take 2 capsules (4 mg) after the first loose stool, then 1 capsule (2 mg) every 4 hours as needed for diarrhea. Maximum 8 capsules per day. [facility] proCHLORper azine 10 mg tablet 01-27 00:00: 00 Yes [id number] 04 10mg Take 1 tablet by mouth every 6 (six) hours as needed for Nausea and Vomiting (N/V). [facility] ondansetron 4 mg disintegrat ing tablet 01-27 00:00: 00 Yes [id number] 04 4mg Take 1 tablet by mouth every 8 (eight) hours as needed for Nausea and Vomiting (N/V). [facility] loperamide 2 mg capsule 01-27 00:00: 00 Yes [id number] 04 4mg Take 2 capsules by mouth every 4 (four) hours as needed for Diarrhea. Take 2 capsules (4 mg) after the first loose stool, then 1 capsule (2 mg) every 4 hours as needed for diarrhea. Maximum 8 capsules per day. [facility] proCHLORper azine 10 mg tablet 01-27 00:00: 00 Yes [id number] 04 10mg Take 1 tablet by mouth every 6 (six) hours as needed for Nausea and Vomiting (N/V). [facility] ondansetron 4 mg disintegrat ing tablet 01-27 00:00: 00 Yes [id number] 04 4mg Take 1 tablet by mouth every 8 (eight) hours as needed for Nausea and Vomiting (N/V). [facility] loperamide 2 mg capsule 01-27 00:00: 00 Yes [id number] 04 4mg Take 2 capsules by mouth every 4 (four) hours as needed for Diarrhea. Take 2 capsules (4 mg) after the first loose stool, then 1 capsule (2 mg) every 4 hours as needed for diarrhea. Maximum 8 capsules per day. [facility] proCHLORper azine 10 mg tablet 01-27 00:00: 00 Yes [id number] 04 10mg Take 1 tablet by mouth every 6 (six) hours as needed for Nausea and Vomiting (N/V). [facility] ondansetron 4 mg disintegrat ing tablet 01-27 00:00: 00 Yes [id number] 04 4mg Take 1 tablet by mouth every 8 (eight) hours as needed for Nausea and Vomiting (N/V). [facility] loperamide 2 mg capsule 01-27 00:00: 00 Yes [id number] 04 4mg Take 2 capsules by mouth every 4 (four) hours as needed for Diarrhea. Take 2 capsules (4 mg) after the first loose stool, then 1 capsule (2 mg) every 4 hours as needed for diarrhea. Maximum 8 capsules per day. [facility] [facility]LORper azine 10 mg tablet 01-27 00:00: 00 Yes [id number] 10mg Take 1 tablet by mouth every 6 (six) hours as needed for Nausea and Vomiting (N/V). [facility] ondansetron 4 mg disintegrat ing tablet 01-27 00:00: 00 Yes [id number] 4mg Take 1 tablet by mouth every 8 (eight) hours as needed for Nausea and Vomiting (N/V). [facility] loperamide 2 mg capsule 01-27 00:00: 00 Yes [id number] 4mg Take 2 capsules by mouth every 4 (four) hours as needed for Diarrhea. Take 2 capsules (4 mg) after the first loose stool, then 1 capsule (2 mg) every 4 hours as needed for diarrhea. Maximum 8 capsules per day. [facility] proCHLORper azine 10 mg tablet 01-27 00:00: 00 Yes [id number] 10mg Take 1 tablet by mouth every 6 (six) hours as needed for Nausea and Vomiting (N/V). [facility] ondansetron 4 mg disintegrat ing tablet 01-27 00:00: 00 Yes [id number] 4mg Take 1 tablet by mouth every 8 (eight) hours as needed for Nausea and Vomiting (N/V). [facility] loperamide 2 mg capsule 01-27 00:00: 00 Yes [id number] 4mg Take 2 capsules by mouth every 4 (four) hours as needed for Diarrhea. Take 2 capsules (4 mg) after the first loose stool, then 1 capsule (2 mg) every 4 hours as needed for diarrhea. Maximum 8 capsules per day. [facility] proCHLORper azine 10 mg tablet 01-27 00:00: 00 Yes [id number] 10mg Take 1 tablet by mouth every 6 (six) hours as needed for Nausea and Vomiting (N/V). [facility] ondansetron 4 mg disintegrat ing tablet 01-27 00:00: 00 Yes [id number] 4mg Take 1 tablet by mouth every 8 (eight) hours as needed for Nausea and Vomiting (N/V). [facility] loperamide 2 mg capsule 01-27 00:00: 00 Yes [id number] 4mg Take 2 capsules by mouth every 4 (four) hours as needed for Diarrhea. Take 2 capsules (4 mg) after the first loose stool, then 1 capsule (2 mg) every 4 hours as needed for diarrhea. Maximum 8 capsules per day. [facility]CHLORper azine 10 mg tablet 01-27 00:00: 00 Yes [id number] 10mg Take 1 tablet by mouth every 6 (six) hours as needed for Nausea and Vomiting (N/V). [facility] ondansetron 4 mg disintegrat ing tablet 01-27 00:00: 00 Yes [id number] 4mg Take 1 tablet by mouth every 8 (eight) hours as needed for Nausea and Vomiting (N/V). [facility] loperamide 2 mg capsule 01-27 00:00: 00 Yes [id number] 4mg Take 2 capsules by mouth every 4 (four) hours as needed for Diarrhea. Take 2 capsules (4 mg) after the first loose stool, then 1 capsule (2 mg) every 4 hours as needed for diarrhea. Maximum 8 capsules per day. [facility] proCHLORper azine 10 mg tablet 01-27 00:00: 00 Yes [id number] 10mg Take 1 tablet by mouth every 6 (six) hours as needed for Nausea and Vomiting (N/V). [facility] ondansetron 4 mg disintegrat ing tablet 01-27 00:00: 00 Yes [id number] 4mg Take 1 tablet by mouth every 8 (eight) hours as needed for Nausea and Vomiting (N/V). [facility] loperamide 2 mg capsule 01-27 00:00: 00 Yes [id number] 4mg Take 2 capsules by mouth every 4 (four) hours as needed for Diarrhea. Take 2 capsules (4 mg) after the first loose stool, then 1 capsule (2 mg) every 4 hours as needed for diarrhea. Maximum 8 capsules per day. [facility]CHLORper azine 10 mg tablet 01-27 00:00: 00 Yes [id number] 10mg Take 1 tablet by mouth every 6 (six) hours as needed for Nausea and Vomiting (N/V). [facility] ondansetron 4 mg disintegrat ing tablet 01-27 00:00: 00 Yes [id number] 4mg Take 1 tablet by mouth every 8 (eight) hours as needed for Nausea and Vomiting (N/V). [facility] loperamide 2 mg capsule 01-27 00:00: 00 Yes [id number] 4mg Take 2 capsules by mouth every 4 (four) hours as needed for Diarrhea. Take 2 capsules (4 mg) after the first loose stool, then 1 capsule (2 mg) every 4 hours as needed for diarrhea. Maximum 8 capsules per day. [facility]CHLORper azine 10 mg tablet 2020-0 01-27 00:00: 00 Yes [id number] 10mg Take 1 tablet by mouth every 6 (six) hours as needed for Nausea and Vomiting (N/V). [facility] ondansetron 4 mg disintegrat ing tablet 01-27 00:00: 00 Yes [id number] 4mg Take 1 tablet by mouth every 8 (eight) hours as needed for Nausea and Vomiting (N/V). [facility] loperamide 2 mg capsule 01-27 00:00: 00 Yes [id number] 4mg Take 2 capsules by mouth every 4 (four) hours as needed for Diarrhea. Take 2 capsules (4 mg) after the first loose stool, then 1 capsule (2 mg) every 4 hours as needed for diarrhea. Maximum 8 capsules per day. [facility]CHLORper azine 10 mg tablet 01-27 00:00: 00 Yes [id number] 10mg Take 1 tablet by mouth every 6 (six) hours as needed for Nausea and Vomiting (N/V). [facility] ondansetron 4 mg disintegrat ing tablet 01-27 00:00: 00 Yes [id number] 4mg Take 1 tablet by mouth every 8 (eight) hours as needed for Nausea and Vomiting (N/V). [facility] loperamide 2 mg capsule 01-27 00:00: 00 Yes [id number] 4mg Take 2 capsules by mouth every 4 (four) hours as needed for Diarrhea. Take 2 capsules (4 mg) after the first loose stool, then 1 capsule (2 mg) every 4 hours as needed for diarrhea. Maximum 8 capsules per day. [facility]CHLORper azine 10 mg tablet 01-27 00:00: 00 Yes [id number] 10mg Take 1 tablet by mouth every 6 (six) hours as needed for Nausea and Vomiting (N/V). [facility] ondansetron 4 mg disintegrat ing tablet 01-27 00:00: 00 Yes [id number] 4mg Take 1 tablet by mouth every 8 (eight) hours as needed for Nausea and Vomiting (N/V). [facility] loperamide 2 mg capsule 01-27 00:00: 00 Yes [id number] 4mg Take 2 capsules by mouth every 4 (four) hours as needed for Diarrhea. Take 2 capsules (4 mg) after the first loose stool, then 1 capsule (2 mg) every 4 hours as needed for diarrhea. Maximum 8 capsules per day. [facility]CHLORper azine 10 mg tablet 01-27 00:00: 00 Yes [id number] 10mg Take 1 tablet by mouth every 6 (six) hours as needed for Nausea and Vomiting (N/V). [facility] ondansetron 4 mg disintegrat ing tablet 01-27 00:00: 00 Yes [id number] 4mg Take 1 tablet by mouth every 8 (eight) hours as needed for Nausea and Vomiting (N/V). [facility] loperamide 2 mg capsule 01-27 00:00: 00 Yes [id number] 4mg Take 2 capsules by mouth every 4 (four) hours as needed for Diarrhea. Take 2 capsules (4 mg) after the first loose stool, then 1 capsule (2 mg) every 4 hours as needed for diarrhea. Maximum 8 capsules per day. [facility]CHLORper azine 10 mg tablet 01-27 00:00: 00 Yes [id number] 10mg Take 1 tablet by mouth every 6 (six) hours as needed for Nausea and Vomiting (N/V). [facility] ondansetron 4 mg disintegrat ing tablet 01-27 00:00: 00 Yes [id number] 4mg Take 1 tablet by mouth every 8 (eight) hours as needed for Nausea and Vomiting (N/V). [facility] loperamide 2 mg capsule 01-27 00:00: 00 Yes [id number] 4mg Take 2 capsules by mouth every 4 (four) hours as needed for Diarrhea. Take 2 capsules (4 mg) after the first loose stool, then 1 capsule (2 mg) every 4 hours as needed for diarrhea. Maximum 8 capsules per day. [facility]CHLORper azine 10 mg tablet 01-27 00:00: 00 Yes [id number] 10mg Take 1 tablet by mouth every 6 (six) hours as needed for Nausea and Vomiting (N/V). [facility] ondansetron 4 mg disintegrat ing tablet 01-27 00:00: 00 Yes [id number] 4mg Take 1 tablet by mouth every 8 (eight) hours as needed for Nausea and Vomiting (N/V). [facility] loperamide 2 mg capsule 01-27 00:00: 00 Yes [id number] 4mg Take 2 capsules by mouth every 4 (four) hours as needed for Diarrhea. Take 2 capsules (4 mg) after the first loose stool, then 1 capsule (2 mg) every 4 hours as needed for diarrhea. Maximum 8 capsules per day. [facility]CHLORper azine 10 mg tablet 01-27 00:00: 00 Yes [id number] 10mg Take 1 tablet by mouth every 6 (six) hours as needed for Nausea and Vomiting (N/V). [facility] ondansetron 4 mg disintegrat ing tablet 01-27 00:00: 00 Yes [id number] 4mg Take 1 tablet by mouth every 8 (eight) hours as needed for Nausea and Vomiting (N/V). [facility] loperamide 2 mg capsule 01-27 00:00: 00 Yes [id number] 4mg Take 2 capsules by mouth every 4 (four) hours as needed for Diarrhea. Take 2 capsules (4 mg) after the first loose stool, then 1 capsule (2 mg) every 4 hours as needed for diarrhea. Maximum 8 capsules per day. [facility]LOR[facility] azine 10 mg tablet 01-27 00:00: 00 Yes [id number] 10mg Take 1 tablet by mouth every 6 (six) hours as needed for Nausea and Vomiting (N/V). [facility] ondansetron 4 mg disintegrat ing tablet 01-27 00:00: 00 Yes [id number] 4mg Take 1 tablet by mouth every 8 (eight) hours as needed for Nausea and Vomiting (N/V). [facility] loperamide 2 mg capsule 01-27 00:00: 00 Yes [id number] 4mg Take 2 capsules by mouth every 4 (four) hours as needed for Diarrhea. Take 2 capsules (4 mg) after the first loose stool, then 1 capsule (2 mg) every 4 hours as needed for diarrhea. Maximum 8 capsules per day. [facility]CHLORper azine 10 mg tablet 01-27 00:00: 00 Yes [id number] 10mg Take 1 tablet by mouth every 6 (six) hours as needed for Nausea and Vomiting (N/V). [facility] ondansetron 4 mg disintegrat ing tablet 01-27 00:00: 00 Yes [id number] 4mg Take 1 tablet by mouth every 8 (eight) hours as needed for Nausea and Vomiting (N/V). [facility] loperamide 2 mg capsule 01-27 00:00: 00 Yes [id number] 4mg Take 2 capsules by mouth every 4 (four) hours as needed for Diarrhea. Take 2 capsules (4 mg) after the first loose stool, then 1 capsule (2 mg) every 4 hours as needed for diarrhea. Maximum 8 capsules per day. [facility]CHLORper azine 10 mg tablet 01-27 00:00: 00 Yes [id number] 10mg Take 1 tablet by mouth every 6 (six) hours as needed for Nausea and Vomiting (N/V). [facility] ondansetron 4 mg disintegrat ing tablet 01-27 00:00: 00 Yes [id number] 4mg Take 1 tablet by mouth every 8 (eight) hours as needed for Nausea and Vomiting (N/V). [facility] loperamide 2 mg capsule 01-27 00:00: 00 Yes [id number] 4mg Take 2 capsules by mouth every 4 (four) hours as needed for Diarrhea. Take 2 capsules (4 mg) after the first loose stool, then 1 capsule (2 mg) every 4 hours as needed for diarrhea. Maximum 8 capsules per day. [facility]CHLORper azine 10 mg tablet 01-27 00:00: 00 Yes [id number] 10mg Take 1 tablet by mouth every 6 (six) hours as needed for Nausea and Vomiting (N/V). [facility] ondansetron 4 mg disintegrat ing tablet 01-27 00:00: 00 Yes [id number] 4mg Take 1 tablet by mouth every 8 (eight) hours as needed for Nausea and Vomiting (N/V). [facility] loperamide 2 mg capsule 01-27 00:00: 00 Yes [id number] 4mg Take 2 capsules by mouth every 4 (four) hours as needed for Diarrhea. Take 2 capsules (4 mg) after the first loose stool, then 1 capsule (2 mg) every 4 hours as needed for diarrhea. Maximum 8 capsules per day. [facility]CHLORper azine 10 mg tablet 01-27 00:00: 00 Yes [id number] 10mg Take 1 tablet by mouth every 6 (six) hours as needed for Nausea and Vomiting (N/V). [facility] ondansetron 4 mg disintegrat ing tablet 01-27 00:00: 00 Yes [id number] 4mg Take 1 tablet by mouth every 8 (eight) hours as needed for Nausea and Vomiting (N/V). [facility] loperamide 2 mg capsule 01-27 00:00: 00 Yes [id number] 4mg Take 2 capsules by mouth every 4 (four) hours as needed for Diarrhea. Take 2 capsules (4 mg) after the first loose stool, then 1 capsule (2 mg) every 4 hours as needed for diarrhea. Maximum 8 capsules per day. [facility]CHLORper azine 10 mg tablet 01-27 00:00: 00 Yes [id number] 10mg Take 1 tablet by mouth every 6 (six) hours as needed for Nausea and Vomiting (N/V). [facility] ondansetron 4 mg disintegrat ing tablet 01-27 00:00: 00 Yes [id number] 4mg Take 1 tablet by mouth every 8 (eight) hours as needed for Nausea and Vomiting (N/V). [facility] loperamide 2 mg capsule 01-27 00:00: 00 Yes [id number] 4mg Take 2 capsules by mouth every 4 (four) hours as needed for Diarrhea. Take 2 capsules (4 mg) after the first loose stool, then 1 capsule (2 mg) every 4 hours as needed for diarrhea. Maximum 8 capsules per day. [facility]CHLORper azine 10 mg tablet 01-27 00:00: 00 Yes [id number] 10mg Take 1 tablet by mouth every 6 (six) hours as needed for Nausea and Vomiting (N/V). [facility] ondansetron 4 mg disintegrat ing tablet 01-27 00:00: 00 Yes [id number] 4mg Take 1 tablet by mouth every 8 (eight) hours as needed for Nausea and Vomiting (N/V). [facility] loperamide 2 mg capsule 01-27 00:00: 00 Yes [id number] 4mg Take 2 capsules by mouth every 4 (four) hours as needed for Diarrhea. Take 2 capsules (4 mg) after the first loose stool, then 1 capsule (2 mg) every 4 hours as needed for diarrhea. Maximum 8 capsules per day. [facility] proCHLORper azine 10 mg tablet 01-27 00:00: 00 Yes [id number] 10mg Take 1 tablet by mouth every 6 (six) hours as needed for Nausea and Vomiting (N/V). [facility] ondansetron 4 mg disintegrat ing tablet 01-27 00:00: 00 Yes [id number] 4mg Take 1 tablet by mouth every 8 (eight) hours as needed for Nausea and Vomiting (N/V). [facility] loperamide 2 mg capsule 01-27 00:00: 00 Yes [id number] 4mg Take 2 capsules by mouth every 4 (four) hours as needed for Diarrhea. Take 2 capsules (4 mg) after the first loose stool, then 1 capsule (2 mg) every 4 hours as needed for diarrhea. Maximum 8 capsules per day. [facility]CHLORper azine 10 mg tablet 01-27 00:00: 00 Yes [id number] 10mg Take 1 tablet by mouth every 6 (six) hours as needed for Nausea and Vomiting (N/V). [facility] ondansetron 4 mg disintegrat ing tablet 01-27 00:00: 00 Yes [id number] 4mg Take 1 tablet by mouth every 8 (eight) hours as needed for Nausea and Vomiting (N/V). [facility] loperamide 2 mg capsule 01-27 00:00: 00 Yes [id number] 4mg Take 2 capsules by mouth every 4 (four) hours as needed for Diarrhea. Take 2 capsules (4 mg) after the first loose stool, then 1 capsule (2 mg) every 4 hours as needed for diarrhea. Maximum 8 capsules per day. [facility] proCHLORper azine 10 mg tablet 01-27 00:00: 00 Yes [id number] 10mg Take 1 tablet by mouth every 6 (six) hours as needed for Nausea and Vomiting (N/V). [facility] ondansetron 4 mg disintegrat ing tablet 01-27 00:00: 00 Yes [id number] 4mg Take 1 tablet by mouth every 8 (eight) hours as needed for Nausea and Vomiting (N/V). [facility] loperamide 2 mg capsule 01-27 00:00: 00 Yes [id number] 4mg Take 2 capsules by mouth every 4 (four) hours as needed for Diarrhea. Take 2 capsules (4 mg) after the first loose stool, then 1 capsule (2 mg) every 4 hours as needed for diarrhea. Maximum 8 capsules per day. [facility] proCHLORper azine 10 mg tablet 01-27 00:00: 00 Yes [id number] 10mg Take 1 tablet by mouth every 6 (six) hours as needed for Nausea and Vomiting (N/V). [facility] ondansetron 4 mg disintegrat ing tablet 01-27 00:00: 00 Yes [id number] 4mg Take 1 tablet by mouth every 8 (eight) hours as needed for Nausea and Vomiting (N/V). [facility] loperamide 2 mg capsule 01-27 00:00: 00 Yes [id number] 4mg Take 2 capsules by mouth every 4 (four) hours as needed for Diarrhea. Take 2 capsules (4 mg) after the first loose stool, then 1 capsule (2 mg) every 4 hours as needed for diarrhea. Maximum 8 capsules per day. [facility] proCHLORper azine 10 mg tablet 01-27 00:00: 00 Yes [id number] 10mg Take 1 tablet by mouth every 6 (six) hours as needed for Nausea and Vomiting (N/V). [facility] ondansetron 4 mg disintegrat ing tablet 01-27 00:00: 00 Yes [id number] 4mg Take 1 tablet by mouth every 8 (eight) hours as needed for Nausea and Vomiting (N/V). [facility] loperamide 2 mg capsule 01-27 00:00: 00 Yes [id number] 4mg Take 2 capsules by mouth every 4 (four) hours as needed for Diarrhea. Take 2 capsules (4 mg) after the first loose stool, then 1 capsule (2 mg) every 4 hours as needed for diarrhea. Maximum 8 capsules per day. [facility] proCHLORper azine 10 mg tablet 01-27 00:00: 00 Yes [id number] 10mg Take 1 tablet by mouth every 6 (six) hours as needed for Nausea and Vomiting (N/V). [facility] ondansetron 4 mg disintegrat ing tablet 01-27 00:00: 00 Yes [id number] 4mg Take 1 tablet by mouth every 8 (eight) hours as needed for Nausea and Vomiting (N/V). [facility] loperamide 2 mg capsule 01-27 00:00: 00 Yes [id number] 4mg Take 2 capsules by mouth every 4 (four) hours as needed for Diarrhea. Take 2 capsules (4 mg) after the first loose stool, then 1 capsule (2 mg) every 4 hours as needed for diarrhea. Maximum 8 capsules per day. [facility] proCHLORper azine 10 mg tablet 01-27 00:00: 00 Yes [id number] 10mg Take 1 tablet by mouth every 6 (six) hours as needed for Nausea and Vomiting (N/V). [facility] ondansetron 4 mg disintegrat ing tablet 01-27 00:00: 00 Yes [id number] 4mg Take 1 tablet by mouth every 8 (eight) hours as needed for Nausea and Vomiting (N/V). [facility] loperamide 2 mg capsule 01-27 00:00: 00 Yes [id number] 4mg Take 2 capsules by mouth every 4 (four) hours as needed for Diarrhea. Take 2 capsules (4 mg) after the first loose stool, then 1 capsule (2 mg) every 4 hours as needed for diarrhea. Maximum 8 capsules per day. [facility] proCHLORper azine 10 mg tablet 01-27 00:00: 00 Yes [id number] 10mg Take 1 tablet by mouth every 6 (six) hours as needed for Nausea and Vomiting (N/V). [facility] ondansetron 4 mg disintegrat ing tablet 01-27 00:00: 00 Yes [id number] 4mg Take 1 tablet by mouth every 8 (eight) hours as needed for Nausea and Vomiting (N/V). [facility] loperamide 2 mg capsule 01-27 00:00: 00 Yes [id number] 4mg Take 2 capsules by mouth every 4 (four) hours as needed for Diarrhea. Take 2 capsules (4 mg) after the first loose stool, then 1 capsule (2 mg) every 4 hours as needed for diarrhea. Maximum 8 capsules per day. [facility] proCHLORper azine 10 mg tablet 01-27 00:00: 00 Yes [id number] 10mg Take 1 tablet by mouth every 6 (six) hours as needed for Nausea and Vomiting (N/V). [facility] ondansetron 4 mg disintegrat ing tablet 01-27 00:00: 00 Yes [id number] 4mg Take 1 tablet by mouth every 8 (eight) hours as needed for Nausea and Vomiting (N/V). [facility] loperamide 2 mg capsule 01-27 00:00: 00 Yes [id number] 4mg Take 2 capsules by mouth every 4 (four) hours as needed for Diarrhea. Take 2 capsules (4 mg) after the first loose stool, then 1 capsule (2 mg) every 4 hours as needed for diarrhea. Maximum 8 capsules per day. [facility] proCHLORper azine 10 mg tablet 01-27 00:00: 00 Yes [id number] 10mg Take 1 tablet by mouth every 6 (six) hours as needed for Nausea and Vomiting (N/V). [facility] ondansetron 4 mg disintegrat ing tablet 01-27 00:00: 00 Yes [id number] 4mg Take 1 tablet by mouth every 8 (eight) hours as needed for Nausea and Vomiting (N/V). [facility] loperamide 2 mg capsule 01-27 00:00: 00 Yes [id number] 4mg Take 2 capsules by mouth every 4 (four) hours as needed for Diarrhea. Take 2 capsules (4 mg) after the first loose stool, then 1 capsule (2 mg) every 4 hours as needed for diarrhea. Maximum 8 capsules per day. [facility] proCHLORper azine 10 mg tablet 01-27 00:00: 00 Yes [id number] 10mg Take 1 tablet by mouth every 6 (six) hours as needed for Nausea and Vomiting (N/V). [facility] ondansetron 4 mg disintegrat ing tablet 01-27 00:00: 00 Yes [id number] 4mg Take 1 tablet by mouth every 8 (eight) hours as needed for Nausea and Vomiting (N/V). [facility] loperamide 2 mg capsule 01-27 00:00: 00 Yes [id number] 4mg Take 2 capsules by mouth every 4 (four) hours as needed for Diarrhea. Take 2 capsules (4 mg) after the first loose stool, then 1 capsule (2 mg) every 4 hours as needed for diarrhea. Maximum 8 capsules per day. [facility]CHLORper azine 10 mg tablet 01-27 00:00: 00 Yes [id number] 10mg Take 1 tablet by mouth every 6 (six) hours as needed for Nausea and Vomiting (N/V). [facility] ondansetron 4 mg disintegrat ing tablet 01-27 00:00: 00 Yes [id number] 4mg Take 1 tablet by mouth every 8 (eight) hours as needed for Nausea and Vomiting (N/V). [facility] loperamide 2 mg capsule 01-27 00:00: 00 Yes [id number] 4mg Take 2 capsules by mouth every 4 (four) hours as needed for Diarrhea. Take 2 capsules (4 mg) after the first loose stool, then 1 capsule (2 mg) every 4 hours as needed for diarrhea. Maximum 8 capsules per day. [facility] proCHLORper azine 10 mg tablet 01-27 00:00: 00 Yes [id number] 10mg Take 1 tablet by mouth every 6 (six) hours as needed for Nausea and Vomiting (N/V). [facility] ondansetron 4 mg disintegrat ing tablet 01-27 00:00: 00 Yes [id number] 4mg Take 1 tablet by mouth every 8 (eight) hours as needed for Nausea and Vomiting (N/V). [facility] loperamide 2 mg capsule 01-27 00:00: 00 Yes [id number] 4mg Take 2 capsules by mouth every 4 (four) hours as needed for Diarrhea. Take 2 capsules (4 mg) after the first loose stool, then 1 capsule (2 mg) every 4 hours as needed for diarrhea. Maximum 8 capsules per day. [facility]CHLORper azine 10 mg tablet 01-27 00:00: 00 Yes [id number] 10mg Take 1 tablet by mouth every 6 (six) hours as needed for Nausea and Vomiting (N/V). [facility] ondansetron 4 mg disintegrat ing tablet 01-27 00:00: 00 Yes [id number] 4mg Take 1 tablet by mouth every 8 (eight) hours as needed for Nausea and Vomiting (N/V). [facility] loperamide 2 mg capsule 01-27 00:00: 00 Yes [id number] 4mg Take 2 capsules by mouth every 4 (four) hours as needed for Diarrhea. Take 2 capsules (4 mg) after the first loose stool, then 1 capsule (2 mg) every 4 hours as needed for diarrhea. Maximum 8 capsules per day. [facility] proCHLORper azine 10 mg tablet 01-27 00:00: 00 Yes [id number] 10mg Take 1 tablet by mouth every 6 (six) hours as needed for Nausea and Vomiting (N/V). [facility] ondansetron 4 mg disintegrat ing tablet 01-27 00:00: 00 Yes [id number] 4mg Take 1 tablet by mouth every 8 (eight) hours as needed for Nausea and Vomiting (N/V). [facility] loperamide 2 mg capsule 01-27 00:00: 00 Yes [id number] 4mg Take 2 capsules by mouth every 4 (four) hours as needed for Diarrhea. Take 2 capsules (4 mg) after the first loose stool, then 1 capsule (2 mg) every 4 hours as needed for diarrhea. Maximum 8 capsules per day. [facility] proCHLORper azine 10 mg tablet 01-27 00:00: 00 Yes [id number] 10mg Take 1 tablet by mouth every 6 (six) hours as needed for Nausea and Vomiting (N/V). [facility] ondansetron 4 mg disintegrat ing tablet 01-27 00:00: 00 Yes [id number] 4mg Take 1 tablet by mouth every 8 (eight) hours as needed for Nausea and Vomiting (N/V). [facility] loperamide 2 mg capsule 01-27 00:00: 00 Yes [id number] 4mg Take 2 capsules by mouth every 4 (four) hours as needed for Diarrhea. Take 2 capsules (4 mg) after the first loose stool, then 1 capsule (2 mg) every 4 hours as needed for diarrhea. Maximum 8 capsules per day. [facility] proCHLORper azine 10 mg tablet 01-27 00:00: 00 Yes [id number] 10mg Take 1 tablet by mouth every 6 (six) hours as needed for Nausea and Vomiting (N/V). [facility] ondansetron 4 mg disintegrat ing tablet 01-27 00:00: 00 Yes [id number] 4mg Take 1 tablet by mouth every 8 (eight) hours as needed for Nausea and Vomiting (N/V). [facility] loperamide 2 mg capsule 01-27 00:00: 00 Yes [id number] 4mg Take 2 capsules by mouth every 4 (four) hours as needed for Diarrhea. Take 2 capsules (4 mg) after the first loose stool, then 1 capsule (2 mg) every 4 hours as needed for diarrhea. Maximum 8 capsules per day. [facility]CHLORper azine 10 mg tablet 01-27 00:00: 00 Yes [id number] 10mg Take 1 tablet by mouth every 6 (six) hours as needed for Nausea and Vomiting (N/V). [facility] ondansetron 4 mg disintegrat ing tablet 01-27 00:00: 00 Yes [id number] 4mg Take 1 tablet by mouth every 8 (eight) hours as needed for Nausea and Vomiting (N/V). [facility] loperamide 2 mg capsule 01-27 00:00: 00 Yes [id number] 4mg Take 2 capsules by mouth every 4 (four) hours as needed for Diarrhea. Take 2 capsules (4 mg) after the first loose stool, then 1 capsule (2 mg) every 4 hours as needed for diarrhea. Maximum 8 capsules per day. [facility]CHLORper azine 10 mg tablet 01-27 00:00: 00 Yes [id number] 10mg Take 1 tablet by mouth every 6 (six) hours as needed for Nausea and Vomiting (N/V). [facility] ondansetron 4 mg disintegrat ing tablet 01-27 00:00: 00 Yes [id number] 4mg Take 1 tablet by mouth every 8 (eight) hours as needed for Nausea and Vomiting (N/V). [facility] loperamide 2 mg capsule 01-27 00:00: 00 Yes [id number] 4mg Take 2 capsules by mouth every 4 (four) hours as needed for Diarrhea. Take 2 capsules (4 mg) after the first loose stool, then 1 capsule (2 mg) every 4 hours as needed for diarrhea. Maximum 8 capsules per day. [facility]CHLORper azine 10 mg tablet 01-27 00:00: 00 Yes [id number] 10mg Take 1 tablet by mouth every 6 (six) hours as needed for Nausea and Vomiting (N/V). [facility] ondansetron 4 mg disintegrat ing tablet 01-27 00:00: 00 Yes [id number] 4mg Take 1 tablet by mouth every 8 (eight) hours as needed for Nausea and Vomiting (N/V). [facility] loperamide 2 mg capsule 01-27 00:00: 00 Yes [id number] 4mg Take 2 capsules by mouth every 4 (four) hours as needed for Diarrhea. Take 2 capsules (4 mg) after the first loose stool, then 1 capsule (2 mg) every 4 hours as needed for diarrhea. Maximum 8 capsules per day. [facility]CHLORper azine 10 mg tablet 01-27 00:00: 00 Yes [id number] 10mg Take 1 tablet by mouth every 6 (six) hours as needed for Nausea and Vomiting (N/V). [facility] ondansetron 4 mg disintegrat ing tablet 01-27 00:00: 00 Yes [id number] 4mg Take 1 tablet by mouth every 8 (eight) hours as needed for Nausea and Vomiting (N/V). [facility] loperamide 2 mg capsule 01-27 00:00: 00 Yes [id number] 4mg Take 2 capsules by mouth every 4 (four) hours as needed for Diarrhea. Take 2 capsules (4 mg) after the first loose stool, then 1 capsule (2 mg) every 4 hours as needed for diarrhea. Maximum 8 capsules per day. [facility]CHLORper azine 10 mg tablet 01-27 00:00: 00 Yes [id number] 10mg Take 1 tablet by mouth every 6 (six) hours as needed for Nausea and Vomiting (N/V). [facility] ondansetron 4 mg disintegrat ing tablet 01-27 00:00: 00 Yes [id number] 4mg Take 1 tablet by mouth every 8 (eight) hours as needed for Nausea and Vomiting (N/V). [facility] loperamide 2 mg capsule 01-27 00:00: 00 Yes [id number] 4mg Take 2 capsules by mouth every 4 (four) hours as needed for Diarrhea. Take 2 capsules (4 mg) after the first loose stool, then 1 capsule (2 mg) every 4 hours as needed for diarrhea. Maximum 8 capsules per day. [facility]LORper azine 10 mg tablet 01-27 00:00: 00 Yes [id number] 10mg Take 1 tablet by mouth every 6 (six) hours as needed for Nausea and Vomiting (N/V). [facility] ondansetron 4 mg disintegrat ing tablet 01-27 00:00: 00 Yes [id number] 4mg Take 1 tablet by mouth every 8 (eight) hours as needed for Nausea and Vomiting (N/V). [facility] loperamide 2 mg capsule 01-27 00:00: 00 Yes [id number] 4mg Take 2 capsules by mouth every 4 (four) hours as needed for Diarrhea. Take 2 capsules (4 mg) after the first loose stool, then 1 capsule (2 mg) every 4 hours as needed for diarrhea. Maximum 8 capsules per day. [facility]LORper azine 10 mg tablet 01-27 00:00: 00 Yes [id number] 10mg Take 1 tablet by mouth every 6 (six) hours as needed for Nausea and Vomiting (N/V). [facility] ondansetron 4 mg disintegrat ing tablet 01-27 00:00: 00 Yes [id number] 4mg Take 1 tablet by mouth every 8 (eight) hours as needed for Nausea and Vomiting (N/V). [facility] loperamide 2 mg capsule 01-27 00:00: 00 Yes [id number] 4mg Take 2 capsules by mouth every 4 (four) hours as needed for Diarrhea. Take 2 capsules (4 mg) after the first loose stool, then 1 capsule (2 mg) every 4 hours as needed for diarrhea. Maximum 8 capsules per day. [facility]CHLORper azine 10 mg tablet 01-27 00:00: 00 Yes [id number] 10mg Take 1 tablet by mouth every 6 (six) hours as needed for Nausea and Vomiting (N/V). [facility] ondansetron 4 mg disintegrat ing tablet 01-27 00:00: 00 Yes [id number] 4mg Take 1 tablet by mouth every 8 (eight) hours as needed for Nausea and Vomiting (N/V). [facility] loperamide 2 mg capsule 01-27 00:00: 00 Yes [id number] 4mg Take 2 capsules by mouth every 4 (four) hours as needed for Diarrhea. Take 2 capsules (4 mg) after the first loose stool, then 1 capsule (2 mg) every 4 hours as needed for diarrhea. Maximum 8 capsules per day. [facility] azine 10 mg tablet 01-27 00:00: 00 Yes [id number] 10mg Take 1 tablet by mouth every 6 (six) hours as needed for Nausea and Vomiting (N/V). [facility] ondansetron 4 mg disintegrat ing tablet 01-27 00:00: 00 Yes [id number] 4mg Take 1 tablet by mouth every 8 (eight) hours as needed for Nausea and Vomiting (N/V). [facility] loperamide 2 mg capsule 01-27 00:00: 00 Yes [id number] 4mg Take 2 capsules by mouth every 4 (four) hours as needed for Diarrhea. Take 2 capsules (4 mg) after the first loose stool, then 1 capsule (2 mg) every 4 hours as needed for diarrhea. Maximum 8 capsules per day. [facility] azine 10 mg tablet 01-27 00:00: 00 Yes [id number] 10mg Take 1 tablet by mouth every 6 (six) hours as needed for Nausea and Vomiting (N/V). [facility] ondansetron 4 mg disintegrat ing tablet 01-27 00:00: 00 Yes [id number] 4mg Take 1 tablet by mouth every 8 (eight) hours as needed for Nausea and Vomiting (N/V). [facility] loperamide 2 mg capsule 01-27 00:00: 00 Yes [id number] 4mg Take 2 capsules by mouth every 4 (four) hours as needed for Diarrhea. Take 2 capsules (4 mg) after the first loose stool, then 1 capsule (2 mg) every 4 hours as needed for diarrhea. Maximum 8 capsules per day. [facility] azine 10 mg tablet 01-27 00:00: 00 Yes [id number] 10mg Take 1 tablet by mouth every 6 (six) hours as needed for Nausea and Vomiting (N/V). [facility] ondansetron 4 mg disintegrat ing tablet 01-27 00:00: 00 Yes [id number] 4mg Take 1 tablet by mouth every 8 (eight) hours as needed for Nausea and Vomiting (N/V). [facility] loperamide 2 mg capsule 01-27 00:00: 00 Yes [id number] 4mg Take 2 capsules by mouth every 4 (four) hours as needed for Diarrhea. Take 2 capsules (4 mg) after the first loose stool, then 1 capsule (2 mg) every 4 hours as needed for diarrhea. Maximum 8 capsules per day. [facility]LOR[facility] azine 10 mg tablet 01-27 00:00: 00 Yes [id number] 10mg Take 1 tablet by mouth every 6 (six) hours as needed for Nausea and Vomiting (N/V). [facility] ondansetron 4 mg disintegrat ing tablet 01-27 00:00: 00 Yes [id number] 4mg Take 1 tablet by mouth every 8 (eight) hours as needed for Nausea and Vomiting (N/V). [facility] loperamide 2 mg capsule 01-27 00:00: 00 Yes [id number] 4mg Take 2 capsules by mouth every 4 (four) hours as needed for Diarrhea. Take 2 capsules (4 mg) after the first loose stool, then 1 capsule (2 mg) every 4 hours as needed for diarrhea. Maximum 8 capsules per day. [facility]LORper azine 10 mg tablet 01-27 00:00: 00 Yes [id number] 10mg Take 1 tablet by mouth every 6 (six) hours as needed for Nausea and Vomiting (N/V). [facility] ondansetron 4 mg disintegrat ing tablet 01-27 00:00: 00 Yes [id number] 4mg Take 1 tablet by mouth every 8 (eight) hours as needed for Nausea and Vomiting (N/V). [facility] loperamide 2 mg capsule 01-27 00:00: 00 Yes [id number] 4mg Take 2 capsules by mouth every 4 (four) hours as needed for Diarrhea. Take 2 capsules (4 mg) after the first loose stool, then 1 capsule (2 mg) every 4 hours as needed for diarrhea. Maximum 8 capsules per day. [facility] azine 10 mg tablet 01-27 00:00: 00 Yes [id number] 10mg Take 1 tablet by mouth every 6 (six) hours as needed for Nausea and Vomiting (N/V). [facility] ondansetron 4 mg disintegrat ing tablet 01-27 00:00: 00 Yes [id number] 4mg Take 1 tablet by mouth every 8 (eight) hours as needed for Nausea and Vomiting (N/V). [facility] loperamide 2 mg capsule 01-27 00:00: 00 Yes [id number] 4mg Take 2 capsules by mouth every 4 (four) hours as needed for Diarrhea. Take 2 capsules (4 mg) after the first loose stool, then 1 capsule (2 mg) every 4 hours as needed for diarrhea. Maximum 8 capsules per day. [facility] azine 10 mg tablet 01-27 00:00: 00 Yes [id number] 10mg Take 1 tablet by mouth every 6 (six) hours as needed for Nausea and Vomiting (N/V). [facility] ondansetron 4 mg disintegrat ing tablet 01-27 00:00: 00 Yes [id number] 4mg Take 1 tablet by mouth every 8 (eight) hours as needed for Nausea and Vomiting (N/V). [facility] loperamide 2 mg capsule 01-27 00:00: 00 Yes [id number] 4mg Take 2 capsules by mouth every 4 (four) hours as needed for Diarrhea. Take 2 capsules (4 mg) after the first loose stool, then 1 capsule (2 mg) every 4 hours as needed for diarrhea. Maximum 8 capsules per day. [facility]LOR[facility] azine 10 mg tablet 01-27 00:00: 00 Yes [id number] 10mg Take 1 tablet by mouth every 6 (six) hours as needed for Nausea and Vomiting (N/V). [facility] ondansetron 4 mg disintegrat ing tablet 01-27 00:00: 00 Yes [id number] 4mg Take 1 tablet by mouth every 8 (eight) hours as needed for Nausea and Vomiting (N/V). [facility] loperamide 2 mg capsule 01-27 00:00: 00 Yes [id number] 4mg Take 2 capsules by mouth every 4 (four) hours as needed for Diarrhea. Take 2 capsules (4 mg) after the first loose stool, then 1 capsule (2 mg) every 4 hours as needed for diarrhea. Maximum 8 capsules per day. [facility]LORper azine 10 mg tablet 01-27 00:00: 00 Yes [id number] 10mg Take 1 tablet by mouth every 6 (six) hours as needed for Nausea and Vomiting (N/V). [facility] ondansetron 4 mg disintegrat ing tablet 01-27 00:00: 00 Yes [id number] 4mg Take 1 tablet by mouth every 8 (eight) hours as needed for Nausea and Vomiting (N/V). [facility] loperamide 2 mg capsule 01-27 00:00: 00 Yes [id number] 4mg Take 2 capsules by mouth every 4 (four) hours as needed for Diarrhea. Take 2 capsules (4 mg) after the first loose stool, then 1 capsule (2 mg) every 4 hours as needed for diarrhea. Maximum 8 capsules per day. [facility]CHLORper azine 10 mg tablet 01-27 00:00: 00 Yes [id number] 10mg Take 1 tablet by mouth every 6 (six) hours as needed for Nausea and Vomiting (N/V). [facility] ondansetron 4 mg disintegrat ing tablet 01-27 00:00: 00 Yes [id number] 4mg Take 1 tablet by mouth every 8 (eight) hours as needed for Nausea and Vomiting (N/V). [facility] loperamide 2 mg capsule 01-27 00:00: 00 Yes [id number] 4mg Take 2 capsules by mouth every 4 (four) hours as needed for Diarrhea. Take 2 capsules (4 mg) after the first loose stool, then 1 capsule (2 mg) every 4 hours as needed for diarrhea. Maximum 8 capsules per day. [facility]CHLORper azine 10 mg tablet 01-27 00:00: 00 Yes [id number] 10mg Take 1 tablet by mouth every 6 (six) hours as needed for Nausea and Vomiting (N/V). [facility] loperamide 2 mg capsule 01-27 00:00: 00 Yes [id number] 4mg Take 2 capsules by mouth every 4 (four) hours as needed for Diarrhea. Take 2 capsules (4 mg) after the first loose stool, then 1 capsule (2 mg) every 4 hours as needed for diarrhea. Maximum 8 capsules per day. [facility]LORper azine 10 mg tablet 01-27 00:00: 00 Yes [id number] 10mg Take 1 tablet by mouth every 6 (six) hours as needed for Nausea and Vomiting (N/V). [facility] loperamide 2 mg capsule 01-27 00:00: 00 Yes [id number] 4mg Take 2 capsules by mouth every 4 (four) hours as needed for Diarrhea. Take 2 capsules (4 mg) after the first loose stool, then 1 capsule (2 mg) every 4 hours as needed for diarrhea. Maximum 8 capsules per day. [facility] proCHLORper azine 10 mg tablet 01-27 00:00: 00 Yes [id number] 10mg Take 1 tablet by mouth every 6 (six) hours as needed for Nausea and Vomiting (N/V). [facility] loperamide 2 mg capsule 01-27 00:00: 00 Yes [id number] 4mg Take 2 capsules by mouth every 4 (four) hours as needed for Diarrhea. Take 2 capsules (4 mg) after the first loose stool, then 1 capsule (2 mg) every 4 hours as needed for diarrhea. Maximum 8 capsules per day. [facility]LORper azine 10 mg tablet 01-27 00:00: 00 Yes [id number] 10mg Take 1 tablet by mouth every 6 (six) hours as needed for Nausea and Vomiting (N/V). [facility] loperamide 2 mg capsule 01-27 00:00: 00 Yes [id number] 4mg Take 2 capsules by mouth every 4 (four) hours as needed for Diarrhea. Take 2 capsules (4 mg) after the first loose stool, then 1 capsule (2 mg) every 4 hours as needed for diarrhea. Maximum 8 capsules per day. [facility]CHLORper azine 10 mg tablet 01-27 00:00: 00 Yes [id number] 10mg Take 1 tablet by mouth every 6 (six) hours as needed for Nausea and Vomiting (N/V). [facility] loperamide 2 mg capsule 01-27 00:00: 00 Yes [id number] 4mg Take 2 capsules by mouth every 4 (four) hours as needed for Diarrhea. Take 2 capsules (4 mg) after the first loose stool, then 1 capsule (2 mg) every 4 hours as needed for diarrhea. Maximum 8 capsules per day. [facility] proCHLORper azine 10 mg tablet 01-27 00:00: 00 Yes [id number] 10mg Take 1 tablet by mouth every 6 (six) hours as needed for Nausea and Vomiting (N/V). [facility] loperamide 2 mg capsule 01-27 00:00: 00 Yes [id number] 4mg Take 2 capsules by mouth every 4 (four) hours as needed for Diarrhea. Take 2 capsules (4 mg) after the first loose stool, then 1 capsule (2 mg) every 4 hours as needed for diarrhea. Maximum 8 capsules per day. [facility] proCHLORper azine 10 mg tablet 01-27 00:00: 00 Yes [id number] 10mg Take 1 tablet by mouth every 6 (six) hours as needed for Nausea and Vomiting (N/V). [facility] loperamide 2 mg capsule 01-27 00:00: 00 Yes [id number] 4mg Take 2 capsules by mouth every 4 (four) hours as needed for Diarrhea. Take 2 capsules (4 mg) after the first loose stool, then 1 capsule (2 mg) every 4 hours as needed for diarrhea. Maximum 8 capsules per day. [facility]CHLORper azine 10 mg tablet 01-27 00:00: 00 Yes [id number] 10mg Take 1 tablet by mouth every 6 (six) hours as needed for Nausea and Vomiting (N/V). [facility] loperamide 2 mg capsule 01-27 00:00: 00 Yes [id number] 4mg Take 2 capsules by mouth every 4 (four) hours as needed for Diarrhea. Take 2 capsules (4 mg) after the first loose stool, then 1 capsule (2 mg) every 4 hours as needed for diarrhea. Maximum 8 capsules per day. [facility]CHLORper azine 10 mg tablet 01-27 00:00: 00 Yes [id number] 10mg Take 1 tablet by mouth every 6 (six) hours as needed for Nausea and Vomiting (N/V). [facility] loperamide 2 mg capsule 01-27 00:00: 00 Yes [id number] 4mg Take 2 capsules by mouth every 4 (four) hours as needed for Diarrhea. Take 2 capsules (4 mg) after the first loose stool, then 1 capsule (2 mg) every 4 hours as needed for diarrhea. Maximum 8 capsules per day. [facility] proCHLORper azine 10 mg tablet 01-27 00:00: 00 Yes [id number] 10mg Take 1 tablet by mouth every 6 (six) hours as needed for Nausea and Vomiting (N/V). [facility] loperamide 2 mg capsule 01-27 00:00: 00 Yes [id number] 4mg Take 2 capsules by mouth every 4 (four) hours as needed for Diarrhea. Take 2 capsules (4 mg) after the first loose stool, then 1 capsule (2 mg) every 4 hours as needed for diarrhea. Maximum 8 capsules per day. [facility]CHLORper azine 10 mg tablet 01-27 00:00: 00 Yes [id number] 10mg Take 1 tablet by mouth every 6 (six) hours as needed for Nausea and Vomiting (N/V). [facility] loperamide 2 mg capsule 01-27 00:00: 00 Yes [id number] 4mg Take 2 capsules by mouth every 4 (four) hours as needed for Diarrhea. Take 2 capsules (4 mg) after the first loose stool, then 1 capsule (2 mg) every 4 hours as needed for diarrhea. Maximum 8 capsules per day. [facility]CHLORper azine 10 mg tablet 01-27 00:00: 00 Yes [id number] 10mg Take 1 tablet by mouth every 6 (six) hours as needed for Nausea and Vomiting (N/V). [facility] loperamide 2 mg capsule 01-27 00:00: 00 Yes [id number] 4mg Take 2 capsules by mouth every 4 (four) hours as needed for Diarrhea. Take 2 capsules (4 mg) after the first loose stool, then 1 capsule (2 mg) every 4 hours as needed for diarrhea. Maximum 8 capsules per day. [facility]CHLORper azine 10 mg tablet 01-27 00:00: 00 Yes [id number] 10mg Take 1 tablet by mouth every 6 (six) hours as needed for Nausea and Vomiting (N/V). [facility] loperamide 2 mg capsule 01-27 00:00: 00 Yes [id number] 4mg Take 2 capsules by mouth every 4 (four) hours as needed for Diarrhea. Take 2 capsules (4 mg) after the first loose stool, then 1 capsule (2 mg) every 4 hours as needed for diarrhea. Maximum 8 capsules per day. [facility]CHLORper azine 10 mg tablet 01-27 00:00: 00 Yes [id number] 10mg Take 1 tablet by mouth every 6 (six) hours as needed for Nausea and Vomiting (N/V). [facility] loperamide 2 mg capsule 01-27 00:00: 00 Yes [id number] 4mg Take 2 capsules by mouth every 4 (four) hours as needed for Diarrhea. Take 2 capsules (4 mg) after the first loose stool, then 1 capsule (2 mg) every 4 hours as needed for diarrhea. Maximum 8 capsules per day. [facility]CHLORper azine 10 mg tablet 01-27 00:00: 00 Yes [id number] 10mg Take 1 tablet by mouth every 6 (six) hours as needed for Nausea and Vomiting (N/V). [facility] loperamide 2 mg capsule 01-27 00:00: 00 Yes [id number] 4mg Take 2 capsules by mouth every 4 (four) hours as needed for Diarrhea. Take 2 capsules (4 mg) after the first loose stool, then 1 capsule (2 mg) every 4 hours as needed for diarrhea. Maximum 8 capsules per day. [facility]CHLORper azine 10 mg tablet 01-27 00:00: 00 Yes [id number] 10mg Take 1 tablet by mouth every 6 (six) hours as needed for Nausea and Vomiting (N/V). [facility] loperamide 2 mg capsule 01-27 00:00: 00 Yes [id number] 4mg Take 2 capsules by mouth every 4 (four) hours as needed for Diarrhea. Take 2 capsules (4 mg) after the first loose stool, then 1 capsule (2 mg) every 4 hours as needed for diarrhea. Maximum 8 capsules per day. [facility]CHLORper azine 10 mg tablet 01-27 00:00: 00 Yes [id number] 10mg Take 1 tablet by mouth every 6 (six) hours as needed for Nausea and Vomiting (N/V). [facility] loperamide 2 mg capsule 01-27 00:00: 00 Yes [id number] 4mg Take 2 capsules by mouth every 4 (four) hours as needed for Diarrhea. Take 2 capsules (4 mg) after the first loose stool, then 1 capsule (2 mg) every 4 hours as needed for diarrhea. Maximum 8 capsules per day. [facility]LORper azine 10 mg tablet 01-27 00:00: 00 Yes [id number] 10mg Take 1 tablet by mouth every 6 (six) hours as needed for Nausea and Vomiting (N/V). [facility] loperamide 2 mg capsule 01-27 00:00: 00 Yes [id number] 4mg Take 2 capsules by mouth every 4 (four) hours as needed for Diarrhea. Take 2 capsules (4 mg) after the first loose stool, then 1 capsule (2 mg) every 4 hours as needed for diarrhea. Maximum 8 capsules per day. [facility]CHLORper azine 10 mg tablet 01-27 00:00: 00 Yes [id number] 10mg Take 1 tablet by mouth every 6 (six) hours as needed for Nausea and Vomiting (N/V). [facility] loperamide 2 mg capsule 01-27 00:00: 00 Yes [id number] 4mg Take 2 capsules by mouth every 4 (four) hours as needed for Diarrhea. Take 2 capsules (4 mg) after the first loose stool, then 1 capsule (2 mg) every 4 hours as needed for diarrhea. Maximum 8 capsules per day. [facility]CHLORper azine 10 mg tablet 01-27 00:00: 00 Yes [id number] 10mg Take 1 tablet by mouth every 6 (six) hours as needed for Nausea and Vomiting (N/V). [facility] loperamide 2 mg capsule 01-27 00:00: 00 Yes [id number] 4mg Take 2 capsules by mouth every 4 (four) hours as needed for Diarrhea. Take 2 capsules (4 mg) after the first loose stool, then 1 capsule (2 mg) every 4 hours as needed for diarrhea. Maximum 8 capsules per day. [facility]CHLORper azine 10 mg tablet 01-27 00:00: 00 Yes [id number] 10mg Take 1 tablet by mouth every 6 (six) hours as needed for Nausea and Vomiting (N/V). [facility] loperamide 2 mg capsule 01-27 00:00: 00 Yes [id number] 4mg Take 2 capsules by mouth every 4 (four) hours as needed for Diarrhea. Take 2 capsules (4 mg) after the first loose stool, then 1 capsule (2 mg) every 4 hours as needed for diarrhea. Maximum 8 capsules per day. [facility]LORper azine 10 mg tablet 01-27 00:00: 00 Yes [id number] 10mg Take 1 tablet by mouth every 6 (six) hours as needed for Nausea and Vomiting (N/V). [facility] loperamide 2 mg capsule 01-27 00:00: 00 Yes [id number] 4mg Take 2 capsules by mouth every 4 (four) hours as needed for Diarrhea. Take 2 capsules (4 mg) after the first loose stool, then 1 capsule (2 mg) every 4 hours as needed for diarrhea. Maximum 8 capsules per day. [facility]CHLORper azine 10 mg tablet 01-27 00:00: 00 Yes [id number] 10mg Take 1 tablet by mouth every 6 (six) hours as needed for Nausea and Vomiting (N/V). [facility] loperamide 2 mg capsule 01-27 00:00: 00 Yes [id number] 4mg Take 2 capsules by mouth every 4 (four) hours as needed for Diarrhea. Take 2 capsules (4 mg) after the first loose stool, then 1 capsule (2 mg) every 4 hours as needed for diarrhea. Maximum 8 capsules per day. [facility]LOR[facility] azine 10 mg tablet 01-27 00:00: 00 Yes [id number] 10mg Take 1 tablet by mouth every 6 (six) hours as needed for Nausea and Vomiting (N/V). [facility] loperamide 2 mg capsule 01-27 00:00: 00 Yes [id number] 4mg Take 2 capsules by mouth every 4 (four) hours as needed for Diarrhea. Take 2 capsules (4 mg) after the first loose stool, then 1 capsule (2 mg) every 4 hours as needed for diarrhea. Maximum 8 capsules per day. [facility] azine 10 mg tablet 01-27 00:00: 00 Yes [id number] 10mg Take 1 tablet by mouth every 6 (six) hours as needed for Nausea and Vomiting (N/V). [facility] loperamide 2 mg capsule 01-27 00:00: 00 Yes [id number] 4mg Take 2 capsules by mouth every 4 (four) hours as needed for Diarrhea. Take 2 capsules (4 mg) after the first loose stool, then 1 capsule (2 mg) every 4 hours as needed for diarrhea. Maximum 8 capsules per day. [facility] azine 10 mg tablet 01-27 00:00: 00 Yes [id number] 10mg Take 1 tablet by mouth every 6 (six) hours as needed for Nausea and Vomiting (N/V). [facility] loperamide 2 mg capsule 01-27 00:00: 00 Yes [id number] 4mg Take 2 capsules by mouth every 4 (four) hours as needed for Diarrhea. Take 2 capsules (4 mg) after the first loose stool, then 1 capsule (2 mg) every 4 hours as needed for diarrhea. Maximum 8 capsules per day. [facility] azine 10 mg tablet 01-27 00:00: 00 Yes [id number] 10mg Take 1 tablet by mouth every 6 (six) hours as needed for Nausea and Vomiting (N/V). [facility] loperamide 2 mg capsule 01-27 00:00: 00 Yes [id number] 4mg Take 2 capsules by mouth every 4 (four) hours as needed for Diarrhea. Take 2 capsules (4 mg) after the first loose stool, then 1 capsule (2 mg) every 4 hours as needed for diarrhea. Maximum 8 capsules per day. [facility] azine 10 mg tablet 01-27 00:00: 00 Yes [id number] 10mg Take 1 tablet by mouth every 6 (six) hours as needed for Nausea and Vomiting (N/V). [facility] loperamide 2 mg capsule 01-27 00:00: 00 Yes [id number] 4mg Take 2 capsules by mouth every 4 (four) hours as needed for Diarrhea. Take 2 capsules (4 mg) after the first loose stool, then 1 capsule (2 mg) every 4 hours as needed for diarrhea. Maximum 8 capsules per day. [facility] azine 10 mg tablet 01-27 00:00: 00 Yes [id number] 10mg Take 1 tablet by mouth every 6 (six) hours as needed for Nausea and Vomiting (N/V). [facility] loperamide 2 mg capsule 01-27 00:00: 00 Yes [id number] 4mg Take 2 capsules by mouth every 4 (four) hours as needed for Diarrhea. Take 2 capsules (4 mg) after the first loose stool, then 1 capsule (2 mg) every 4 hours as needed for diarrhea. Maximum 8 capsules per day. [facility] azine 10 mg tablet 01-27 00:00: 00 Yes [id number] 10mg Take 1 tablet by mouth every 6 (six) hours as needed for Nausea and Vomiting (N/V). [facility] loperamide 2 mg capsule 01-27 00:00: 00 Yes [id number] 4mg Take 2 capsules by mouth every 4 (four) hours as needed for Diarrhea. Take 2 capsules (4 mg) after the first loose stool, then 1 capsule (2 mg) every 4 hours as needed for diarrhea. Maximum 8 capsules per day. [facility] azine 10 mg tablet 01-27 00:00: 00 Yes [id number] 10mg Take 1 tablet by mouth every 6 (six) hours as needed for Nausea and Vomiting (N/V). [facility] loperamide 2 mg capsule 01-27 00:00: 00 Yes [id number] 4mg Take 2 capsules by mouth every 4 (four) hours as needed for Diarrhea. Take 2 capsules (4 mg) after the first loose stool, then 1 capsule (2 mg) every 4 hours as needed for diarrhea. Maximum 8 capsules per day. [facility] azine 10 mg tablet 01-27 00:00: 00 Yes [id number] 10mg Take 1 tablet by mouth every 6 (six) hours as needed for Nausea and Vomiting (N/V). [facility] loperamide 2 mg capsule 01-27 00:00: 00 Yes [id number] 4mg Take 2 capsules by mouth every 4 (four) hours as needed for Diarrhea. Take 2 capsules (4 mg) after the first loose stool, then 1 capsule (2 mg) every 4 hours as needed for diarrhea. Maximum 8 capsules per day. [facility] azine 10 mg tablet 01-27 00:00: 00 Yes [id number] 10mg Take 1 tablet by mouth every 6 (six) hours as needed for Nausea and Vomiting (N/V). [facility] loperamide 2 mg capsule 01-27 00:00: 00 Yes [id number] 4mg Take 2 capsules by mouth every 4 (four) hours as needed for Diarrhea. Take 2 capsules (4 mg) after the first loose stool, then 1 capsule (2 mg) every 4 hours as needed for diarrhea. Maximum 8 capsules per day. [facility] azine 10 mg tablet 01-27 00:00: 00 Yes [id number] 10mg Take 1 tablet by mouth every 6 (six) hours as needed for Nausea and Vomiting (N/V). [facility] loperamide 2 mg capsule 01-27 00:00: 00 Yes [id number] 4mg Take 2 capsules by mouth every 4 (four) hours as needed for Diarrhea. Take 2 capsules (4 mg) after the first loose stool, then 1 capsule (2 mg) every 4 hours as needed for diarrhea. Maximum 8 capsules per day. [facility] azine 10 mg tablet 01-27 00:00: 00 Yes [id number] 10mg Take 1 tablet by mouth every 6 (six) hours as needed for Nausea and Vomiting (N/V). [facility] loperamide 2 mg capsule 01-27 00:00: 00 Yes [id number] 4mg Take 2 capsules by mouth every 4 (four) hours as needed for Diarrhea. Take 2 capsules (4 mg) after the first loose stool, then 1 capsule (2 mg) every 4 hours as needed for diarrhea. Maximum 8 capsules per day. [facility] azine 10 mg tablet 01-27 00:00: 00 Yes [id number] 10mg Take 1 tablet by mouth every 6 (six) hours as needed for Nausea and Vomiting (N/V). [facility] loperamide 2 mg capsule 01-27 00:00: 00 Yes [id number] 4mg Take 2 capsules by mouth every 4 (four) hours as needed for Diarrhea. Take 2 capsules (4 mg) after the first loose stool, then 1 capsule (2 mg) every 4 hours as needed for diarrhea. Maximum 8 capsules per day. [facility] azine 10 mg tablet 01-27 00:00: 00 Yes [id number] 10mg Take 1 tablet by mouth every 6 (six) hours as needed for Nausea and Vomiting (N/V). [facility] loperamide 2 mg capsule 01-27 00:00: 00 Yes [id number] 4mg Take 2 capsules by mouth every 4 (four) hours as needed for Diarrhea. Take 2 capsules (4 mg) after the first loose stool, then 1 capsule (2 mg) every 4 hours as needed for diarrhea. Maximum 8 capsules per day. [facility] azine 10 mg tablet 01-27 00:00: 00 Yes [id number] 10mg Take 1 tablet by mouth every 6 (six) hours as needed for Nausea and Vomiting (N/V). [facility] loperamide 2 mg capsule 01-27 00:00: 00 Yes [id number] 4mg Take 2 capsules by mouth every 4 (four) hours as needed for Diarrhea. Take 2 capsules (4 mg) after the first loose stool, then 1 capsule (2 mg) every 4 hours as needed for diarrhea. Maximum 8 capsules per day. [facility] azine 10 mg tablet 01-27 00:00: 00 Yes [id number] 10mg Take 1 tablet by mouth every 6 (six) hours as needed for Nausea and Vomiting (N/V). [facility] loperamide 2 mg capsule 01-27 00:00: 00 Yes [id number] 4mg Take 2 capsules by mouth every 4 (four) hours as needed for Diarrhea. Take 2 capsules (4 mg) after the first loose stool, then 1 capsule (2 mg) every 4 hours as needed for diarrhea. Maximum 8 capsules per day. [facility] azine 10 mg tablet 01-27 00:00: 00 Yes [id number] 10mg Take 1 tablet by mouth every 6 (six) hours as needed for Nausea and Vomiting (N/V). [facility] loperamide 2 mg capsule 01-27 00:00: 00 Yes [id number] 4mg Take 2 capsules by mouth every 4 (four) hours as needed for Diarrhea. Take 2 capsules (4 mg) after the first loose stool, then 1 capsule (2 mg) every 4 hours as needed for diarrhea. Maximum 8 capsules per day. [facility] azine 10 mg tablet 01-27 00:00: 00 Yes [id number] 10mg Take 1 tablet by mouth every 6 (six) hours as needed for Nausea and Vomiting (N/V). [facility] loperamide 2 mg capsule 01-27 00:00: 00 Yes [id number] 4mg Take 2 capsules by mouth every 4 (four) hours as needed for Diarrhea. Take 2 capsules (4 mg) after the first loose stool, then 1 capsule (2 mg) every 4 hours as needed for diarrhea. Maximum 8 capsules per day. [facility] azine 10 mg tablet 01-27 00:00: 00 Yes [id number] 10mg Take 1 tablet by mouth every 6 (six) hours as needed for Nausea and Vomiting (N/V). [facility] loperamide 2 mg capsule 01-27 00:00: 00 Yes [id number] 4mg Take 2 capsules by mouth every 4 (four) hours as needed for Diarrhea. Take 2 capsules (4 mg) after the first loose stool, then 1 capsule (2 mg) every 4 hours as needed for diarrhea. Maximum 8 capsules per day. [facility] azine 10 mg tablet 01-27 00:00: 00 Yes [id number] 10mg Take 1 tablet by mouth every 6 (six) hours as needed for Nausea and Vomiting (N/V). [facility] loperamide 2 mg capsule 01-27 00:00: 00 Yes [id number] 4mg Take 2 capsules by mouth every 4 (four) hours as needed for Diarrhea. Take 2 capsules (4 mg) after the first loose stool, then 1 capsule (2 mg) every 4 hours as needed for diarrhea. Maximum 8 capsules per day. [facility] azine 10 mg tablet 01-27 00:00: 00 Yes [id number] 10mg Take 1 tablet by mouth every 6 (six) hours as needed for Nausea and Vomiting (N/V). [facility] loperamide 2 mg capsule 01-27 00:00: 00 Yes [id number] 4mg Take 2 capsules by mouth every 4 (four) hours as needed for Diarrhea. Take 2 capsules (4 mg) after the first loose stool, then 1 capsule (2 mg) every 4 hours as needed for diarrhea. Maximum 8 capsules per day. [facility] azine 10 mg tablet 01-27 00:00: 00 Yes [id number] 10mg Take 1 tablet by mouth every 6 (six) hours as needed for Nausea and Vomiting (N/V). [facility] loperamide 2 mg capsule 01-27 00:00: 00 Yes [id number] 4mg Take 2 capsules by mouth every 4 (four) hours as needed for Diarrhea. Take 2 capsules (4 mg) after the first loose stool, then 1 capsule (2 mg) every 4 hours as needed for diarrhea. Maximum 8 capsules per day. [facility] azine 10 mg tablet 01-27 00:00: 00 Yes [id number] 10mg Take 1 tablet by mouth every 6 (six) hours as needed for Nausea and Vomiting (N/V). [facility] loperamide 2 mg capsule 01-27 00:00: 00 Yes [id number] 4mg Take 2 capsules by mouth every 4 (four) hours as needed for Diarrhea. Take 2 capsules (4 mg) after the first loose stool, then 1 capsule (2 mg) every 4 hours as needed for diarrhea. Maximum 8 capsules per day. [facility] azine 10 mg tablet 01-27 00:00: 00 Yes [id number] 10mg Take 1 tablet by mouth every 6 (six) hours as needed for Nausea and Vomiting (N/V). [facility] loperamide 2 mg capsule 01-27 00:00: 00 Yes [id number] 4mg Take 2 capsules by mouth every 4 (four) hours as needed for Diarrhea. Take 2 capsules (4 mg) after the first loose stool, then 1 capsule (2 mg) every 4 hours as needed for diarrhea. Maximum 8 capsules per day. [facility] azine 10 mg tablet 01-27 00:00: 00 Yes [id number] 10mg Take 1 tablet by mouth every 6 (six) hours as needed for Nausea and Vomiting (N/V). [facility] loperamide 2 mg capsule 01-27 00:00: 00 Yes [id number] 4mg Take 2 capsules by mouth every 4 (four) hours as needed for Diarrhea. Take 2 capsules (4 mg) after the first loose stool, then 1 capsule (2 mg) every 4 hours as needed for diarrhea. Maximum 8 capsules per day. [facility] azine 10 mg tablet 01-27 00:00: 00 Yes [id number] 10mg Take 1 tablet by mouth every 6 (six) hours as needed for Nausea and Vomiting (N/V). [facility] loperamide 2 mg capsule 01-27 00:00: 00 Yes [id number] 4mg Take 2 capsules by mouth every 4 (four) hours as needed for Diarrhea. Take 2 capsules (4 mg) after the first loose stool, then 1 capsule (2 mg) every 4 hours as needed for diarrhea. Maximum 8 capsules per day. [facility] azine 10 mg tablet 01-27 00:00: 00 Yes [id number] 10mg Take 1 tablet by mouth every 6 (six) hours as needed for Nausea and Vomiting (N/V). [facility] loperamide 2 mg capsule 01-27 00:00: 00 Yes [id number] 4mg Take 2 capsules by mouth every 4 (four) hours as needed for Diarrhea. Take 2 capsules (4 mg) after the first loose stool, then 1 capsule (2 mg) every 4 hours as needed for diarrhea. Maximum 8 capsules per day. [facility] azine 10 mg tablet 01-27 00:00: 00 Yes [id number] 10mg Take 1 tablet by mouth every 6 (six) hours as needed for Nausea and Vomiting (N/V). [facility] loperamide 2 mg capsule 01-27 00:00: 00 Yes [id number] 4mg Take 2 capsules by mouth every 4 (four) hours as needed for Diarrhea. Take 2 capsules (4 mg) after the first loose stool, then 1 capsule (2 mg) every 4 hours as needed for diarrhea. Maximum 8 capsules per day. [facility] azine 10 mg tablet 01-27 00:00: 00 Yes [id number] 10mg Take 1 tablet by mouth every 6 (six) hours as needed for Nausea and Vomiting (N/V). [facility] loperamide 2 mg capsule 01-27 00:00: 00 Yes [id number] 4mg Take 2 capsules by mouth every 4 (four) hours as needed for Diarrhea. Take 2 capsules (4 mg) after the first loose stool, then 1 capsule (2 mg) every 4 hours as needed for diarrhea. Maximum 8 capsules per day. [facility] azine 10 mg tablet 01-27 00:00: 00 Yes [id number] 10mg Take 1 tablet by mouth every 6 (six) hours as needed for Nausea and Vomiting (N/V). [facility] loperamide 2 mg capsule 01-27 00:00: 00 Yes [id number] 4mg Take 2 capsules by mouth every 4 (four) hours as needed for Diarrhea. Take 2 capsules (4 mg) after the first loose stool, then 1 capsule (2 mg) every 4 hours as needed for diarrhea. Maximum 8 capsules per day. [facility] azine 10 mg tablet 01-27 00:00: 00 Yes [id number] 10mg Take 1 tablet by mouth every 6 (six) hours as needed for Nausea and Vomiting (N/V). [facility] loperamide 2 mg capsule 01-27 00:00: 00 Yes [id number] 4mg Take 2 capsules by mouth every 4 (four) hours as needed for Diarrhea. Take 2 capsules (4 mg) after the first loose stool, then 1 capsule (2 mg) every 4 hours as needed for diarrhea. Maximum 8 capsules per day. [facility] azine 10 mg tablet 01-27 00:00: 00 Yes [id number] 10mg Take 1 tablet by mouth every 6 (six) hours as needed for Nausea and Vomiting (N/V). [facility] loperamide 2 mg capsule 01-27 00:00: 00 Yes [id number] 4mg Take 2 capsules by mouth every 4 (four) hours as needed for Diarrhea. Take 2 capsules (4 mg) after the first loose stool, then 1 capsule (2 mg) every 4 hours as needed for diarrhea. Maximum 8 capsules per day. [facility] azine 10 mg tablet 01-27 00:00: 00 Yes [id number] 10mg Take 1 tablet by mouth every 6 (six) hours as needed for Nausea and Vomiting (N/V). [facility] loperamide 2 mg capsule 01-27 00:00: 00 Yes [id number] 4mg Take 2 capsules by mouth every 4 (four) hours as needed for Diarrhea. Take 2 capsules (4 mg) after the first loose stool, then 1 capsule (2 mg) every 4 hours as needed for diarrhea. Maximum 8 capsules per day. [facility] azine 10 mg tablet 01-27 00:00: 00 Yes [id number] 10mg Take 1 tablet by mouth every 6 (six) hours as needed for Nausea and Vomiting (N/V). [facility] loperamide 2 mg capsule 01-27 00:00: 00 Yes [id number] 4mg Take 2 capsules by mouth every 4 (four) hours as needed for Diarrhea. Take 2 capsules (4 mg) after the first loose stool, then 1 capsule (2 mg) every 4 hours as needed for diarrhea. Maximum 8 capsules per day. [facility] azine 10 mg tablet 01-27 00:00: 00 Yes [id number] 10mg Take 1 tablet by mouth every 6 (six) hours as needed for Nausea and Vomiting (N/V). [facility] loperamide 2 mg capsule 01-27 00:00: 00 Yes [id number] 4mg Take 2 capsules by mouth every 4 (four) hours as needed for Diarrhea. Take 2 capsules (4 mg) after the first loose stool, then 1 capsule (2 mg) every 4 hours as needed for diarrhea. Maximum 8 capsules per day. [facility] azine 10 mg tablet 01-27 00:00: 00 Yes [id number] 10mg Take 1 tablet by mouth every 6 (six) hours as needed for Nausea and Vomiting (N/V). [facility] loperamide 2 mg capsule 01-27 00:00: 00 Yes [id number] 4mg Take 2 capsules by mouth every 4 (four) hours as needed for Diarrhea. Take 2 capsules (4 mg) after the first loose stool, then 1 capsule (2 mg) every 4 hours as needed for diarrhea. Maximum 8 capsules per day. [facility] azine 10 mg tablet 01-27 00:00: 00 Yes [id number] 10mg Take 1 tablet by mouth every 6 (six) hours as needed for Nausea and Vomiting (N/V). [facility] loperamide 2 mg capsule 01-27 00:00: 00 Yes [id number] 4mg Take 2 capsules by mouth every 4 (four) hours as needed for Diarrhea. Take 2 capsules (4 mg) after the first loose stool, then 1 capsule (2 mg) every 4 hours as needed for diarrhea. Maximum 8 capsules per day. [facility] azine 10 mg tablet 01-27 00:00: 00 Yes [id number] 10mg Take 1 tablet by mouth every 6 (six) hours as needed for Nausea and Vomiting (N/V). [facility] loperamide 2 mg capsule 01-27 00:00: 00 Yes [id number] 4mg Take 2 capsules by mouth every 4 (four) hours as needed for Diarrhea. Take 2 capsules (4 mg) after the first loose stool, then 1 capsule (2 mg) every 4 hours as needed for diarrhea. Maximum 8 capsules per day. [facility] azine 10 mg tablet 01-27 00:00: 00 Yes [id number] 10mg Take 1 tablet by mouth every 6 (six) hours as needed for Nausea and Vomiting (N/V). [facility] loperamide 2 mg capsule 01-27 00:00: 00 Yes [id number] 4mg Take 2 capsules by mouth every 4 (four) hours as needed for Diarrhea. Take 2 capsules (4 mg) after the first loose stool, then 1 capsule (2 mg) every 4 hours as needed for diarrhea. Maximum 8 capsules per day. [facility] azine 10 mg tablet 01-27 00:00: 00 Yes [id number] 10mg Take 1 tablet by mouth every 6 (six) hours as needed for Nausea and Vomiting (N/V). [facility] loperamide 2 mg capsule 01-27 00:00: 00 Yes [id number] 4mg Take 2 capsules by mouth every 4 (four) hours as needed for Diarrhea. Take 2 capsules (4 mg) after the first loose stool, then 1 capsule (2 mg) every 4 hours as needed for diarrhea. Maximum 8 capsules per day. [facility] azine 10 mg tablet 01-27 00:00: 00 Yes [id number] 10mg Take 1 tablet by mouth every 6 (six) hours as needed for Nausea and Vomiting (N/V). [facility] loperamide 2 mg capsule 01-27 00:00: 00 Yes [id number] 4mg Take 2 capsules by mouth every 4 (four) hours as needed for Diarrhea. Take 2 capsules (4 mg) after the first loose stool, then 1 capsule (2 mg) every 4 hours as needed for diarrhea. Maximum 8 capsules per day. [facility] azine 10 mg tablet 01-27 00:00: 00 Yes [id number] 10mg Take 1 tablet by mouth every 6 (six) hours as needed for Nausea and Vomiting (N/V). [facility] loperamide 2 mg capsule 01-27 00:00: 00 Yes [id number] 4mg Take 2 capsules by mouth every 4 (four) hours as needed for Diarrhea. Take 2 capsules (4 mg) after the first loose stool, then 1 capsule (2 mg) every 4 hours as needed for diarrhea. Maximum 8 capsules per day. [facility] azine 10 mg tablet 01-27 00:00: 00 Yes [id number] 10mg Take 1 tablet by mouth every 6 (six) hours as needed for Nausea and Vomiting (N/V). [facility] loperamide 2 mg capsule 01-27 00:00: 00 Yes [id number] 4mg Take 2 capsules by mouth every 4 (four) hours as needed for Diarrhea. Take 2 capsules (4 mg) after the first loose stool, then 1 capsule (2 mg) every 4 hours as needed for diarrhea. Maximum 8 capsules per day. [facility] azine 10 mg tablet 01-27 00:00: 00 Yes [id number] 10mg Take 1 tablet by mouth every 6 (six) hours as needed for Nausea and Vomiting (N/V). [facility] loperamide 2 mg capsule 01-27 00:00: 00 Yes [id number] 4mg Take 2 capsules by mouth every 4 (four) hours as needed for Diarrhea. Take 2 capsules (4 mg) after the first loose stool, then 1 capsule (2 mg) every 4 hours as needed for diarrhea. Maximum 8 capsules per day. [facility] azine 10 mg tablet 01-27 00:00: 00 Yes [id number] 10mg Take 1 tablet by mouth every 6 (six) hours as needed for Nausea and Vomiting (N/V). [facility] loperamide 2 mg capsule 01-27 00:00: 00 Yes [id number] 4mg Take 2 capsules by mouth every 4 (four) hours as needed for Diarrhea. Take 2 capsules (4 mg) after the first loose stool, then 1 capsule (2 mg) every 4 hours as needed for diarrhea. Maximum 8 capsules per day. [facility] azine 10 mg tablet 01-27 00:00: 00 Yes [id number] 10mg Take 1 tablet by mouth every 6 (six) hours as needed for Nausea and Vomiting (N/V). [facility] loperamide 2 mg capsule 01-27 00:00: 00 Yes [id number] 4mg Take 2 capsules by mouth every 4 (four) hours as needed for Diarrhea. Take 2 capsules (4 mg) after the first loose stool, then 1 capsule (2 mg) every 4 hours as needed for diarrhea. Maximum 8 capsules per day. [facility] azine 10 mg tablet 01-27 00:00: 00 Yes [id number] 10mg Take 1 tablet by mouth every 6 (six) hours as needed for Nausea and Vomiting (N/V). [facility] loperamide 2 mg capsule 01-27 00:00: 00 Yes [id number] 4mg Take 2 capsules by mouth every 4 (four) hours as needed for Diarrhea. Take 2 capsules (4 mg) after the first loose stool, then 1 capsule (2 mg) every 4 hours as needed for diarrhea. Maximum 8 capsules per day. [facility] azine 10 mg tablet 01-27 00:00: 00 Yes [id number] 10mg Take 1 tablet by mouth every 6 (six) hours as needed for Nausea and Vomiting (N/V). [facility] loperamide 2 mg capsule 01-27 00:00: 00 Yes [id number] 4mg Take 2 capsules by mouth every 4 (four) hours as needed for Diarrhea. Take 2 capsules (4 mg) after the first loose stool, then 1 capsule (2 mg) every 4 hours as needed for diarrhea. Maximum 8 capsules per day. [facility] azine 10 mg tablet 01-27 00:00: 00 Yes [id number] 10mg Take 1 tablet by mouth every 6 (six) hours as needed for Nausea and Vomiting (N/V). [facility] loperamide 2 mg capsule 01-27 00:00: 00 Yes [id number] 4mg Take 2 capsules by mouth every 4 (four) hours as needed for Diarrhea. Take 2 capsules (4 mg) after the first loose stool, then 1 capsule (2 mg) every 4 hours as needed for diarrhea. Maximum 8 capsules per day. [facility] azine 10 mg tablet 01-27 00:00: 00 Yes [id number] 10mg Take 1 tablet by mouth every 6 (six) hours as needed for Nausea and Vomiting (N/V). [facility] loperamide 2 mg capsule 01-27 00:00: 00 Yes [id number] 4mg Take 2 capsules by mouth every 4 (four) hours as needed for Diarrhea. Take 2 capsules (4 mg) after the first loose stool, then 1 capsule (2 mg) every 4 hours as needed for diarrhea. Maximum 8 capsules per day. [facility] azine 10 mg tablet 01-27 00:00: 00 Yes [id number] 10mg Take 1 tablet by mouth every 6 (six) hours as needed for Nausea and Vomiting (N/V). [facility] loperamide 2 mg capsule 01-27 00:00: 00 Yes [id number] 4mg Take 2 capsules by mouth every 4 (four) hours as needed for Diarrhea. Take 2 capsules (4 mg) after the first loose stool, then 1 capsule (2 mg) every 4 hours as needed for diarrhea. Maximum 8 capsules per day. [facility] proCHLORper azine 10 mg tablet 01-27 00:00: 00 Yes [id number] 10mg Take 1 tablet by mouth every 6 (six) hours as needed for Nausea and Vomiting (N/V). [facility] loperamide 2 mg capsule 01-27 00:00: 00 Yes [id number] 4mg Take 2 capsules by mouth every 4 (four) hours as needed for Diarrhea. Take 2 capsules (4 mg) after the first loose stool, then 1 capsule (2 mg) every 4 hours as needed for diarrhea. Maximum 8 capsules per day. [facility] proCHLORper azine 10 mg tablet 01-27 00:00: 00 Yes [id number] 10mg Take 1 tablet by mouth every 6 (six) hours as needed for Nausea and Vomiting (N/V). [facility] loperamide 2 mg capsule 01-27 00:00: 00 Yes [id number] 4mg Take 2 capsules by mouth every 4 (four) hours as needed for Diarrhea. Take 2 capsules (4 mg) after the first loose stool, then 1 capsule (2 mg) every 4 hours as needed for diarrhea. Maximum 8 capsules per day. [facility] proCHLORper azine 10 mg tablet 01-27 00:00: 00 Yes [id number] 10mg Take 1 tablet by mouth every 6 (six) hours as needed for Nausea and Vomiting (N/V). [facility] loperamide 2 mg capsule 01-27 00:00: 00 Yes [id number] 4mg Take 2 capsules by mouth every 4 (four) hours as needed for Diarrhea. Take 2 capsules (4 mg) after the first loose stool, then 1 capsule (2 mg) every 4 hours as needed for diarrhea. Maximum 8 capsules per day. [facility] proCHLORper azine 10 mg tablet 01-27 00:00: 00 Yes [id number] 10mg Take 1 tablet by mouth every 6 (six) hours as needed for Nausea and Vomiting (N/V). [facility] loperamide 2 mg capsule 01-27 00:00: 00 Yes [id number] 4mg Take 2 capsules by mouth every 4 (four) hours as needed for Diarrhea. Take 2 capsules (4 mg) after the first loose stool, then 1 capsule (2 mg) every 4 hours as needed for diarrhea. Maximum 8 capsules per day. [facility] proCHLORper azine 10 mg tablet 01-27 00:00: 00 Yes [id number] 10mg Take 1 tablet by mouth every 6 (six) hours as needed for Nausea and Vomiting (N/V). [facility] proCHLORper azine 10 mg tablet 01-27 00:00: 00 Yes [id number] 10mg Take 1 tablet by mouth every 6 (six) hours as needed for Nausea and Vomiting (N/V). [facility] proCHLORper azine 10 mg tablet 01-27 00:00: 00 Yes [id number] 10mg Take 1 tablet by mouth every 6 (six) hours as needed for Nausea and Vomiting (N/V). [facility] proCHLORper azine 10 mg tablet 01-27 00:00: 00 Yes [id number] 10mg Take 1 tablet by mouth every 6 (six) hours as needed for Nausea and Vomiting (N/V). [facility] proCHLORper azine 10 mg tablet 01-27 00:00: 00 Yes [id number] 10mg Take 1 tablet by mouth every 6 (six) hours as needed for Nausea and Vomiting (N/V). [facility] proCHLORper azine 10 mg tablet 01-27 00:00: 00 Yes [id number] 10mg Take 1 tablet by mouth every 6 (six) hours as needed for Nausea and Vomiting (N/V). [facility] proCHLORper azine 10 mg tablet 01-27 00:00: 00 Yes [id number] 10mg Take 1 tablet by mouth every 6 (six) hours as needed for Nausea and Vomiting (N/V). [facility] proCHLORper azine 10 mg tablet 01-27 00:00: 00 Yes [id number] 10mg Take 1 tablet by mouth every 6 (six) hours as needed for Nausea and Vomiting (N/V). [facility] proCHLORper azine 10 mg tablet 01-27 00:00: 00 Yes [id number] 10mg Take 1 tablet by mouth every 6 (six) hours as needed for Nausea and Vomiting (N/V). [facility] proCHLORper azine 10 mg tablet 01-27 00:00: 00 Yes [id number] 10mg Take 1 tablet by mouth every 6 (six) hours as needed for Nausea and Vomiting (N/V). [facility] proCHLORper azine 10 mg tablet 01-27 00:00: 00 Yes [id number] 10mg Take 1 tablet by mouth every 6 (six) hours as needed for Nausea and Vomiting (N/V). [facility] proCHLORper azine 10 mg tablet 01-27 00:00: 00 Yes [id number] 10mg Take 1 tablet by mouth every 6 (six) hours as needed for Nausea and Vomiting (N/V). [facility] proCHLORper azine 10 mg tablet 01-27 00:00: 00 Yes [id number] 10mg Take 1 tablet by mouth every 6 (six) hours as needed for Nausea and Vomiting (N/V). [facility] proCHLORper azine 10 mg tablet 0 01-27 00:00: 00 Yes [id number] 10mg Take 1 tablet by mouth every 6 (six) hours as needed for Nausea and Vomiting (N/V). [facility] proCHLORper azine 10 mg tablet 01-27 00:00: 00 Yes [id number] 10mg Take 1 tablet by mouth every 6 (six) hours as needed for Nausea and Vomiting (N/V). [facility] proCHLORper azine 10 mg tablet 01-27 00:00: 00 Yes [id number] 10mg Take 1 tablet by mouth every 6 (six) hours as needed for Nausea and Vomiting (N/V). [facility] proCHLORper azine 10 mg tablet 01-27 00:00: 00 Yes [id number] 10mg Take 1 tablet by mouth every 6 (six) hours as needed for Nausea and Vomiting (N/V). [facility] proCHLORper azine 10 mg tablet 01-27 00:00: 00 Yes [id number] 10mg Take 1 tablet by mouth every 6 (six) hours as needed for Nausea and Vomiting (N/V). [facility] proCHLORper azine 10 mg tablet 01-27 00:00: 00 Yes [id number] 10mg Take 1 tablet by mouth every 6 (six) hours as needed for Nausea and Vomiting (N/V). [facility] proCHLORper azine 10 mg tablet 01-27 00:00: 00 Yes [id number] 10mg Take 1 tablet by mouth every 6 (six) hours as needed for Nausea and Vomiting (N/V). [facility] proCHLORper azine 10 mg tablet 01-27 00:00: 00 Yes [id number] 10mg Take 1 tablet by mouth every 6 (six) hours as needed for Nausea and Vomiting (N/V). [facility] proCHLORper azine 10 mg tablet 01-27 00:00: 00 Yes [id number] 10mg Take 1 tablet by mouth every 6 (six) hours as needed for Nausea and Vomiting (N/V). [facility] proCHLORper azine 10 mg tablet 01-27 00:00: 00 Yes [id number] 10mg Take 1 tablet by mouth every 6 (six) hours as needed for Nausea and Vomiting (N/V). [facility] proCHLORper azine 10 mg tablet 01-27 00:00: 00 Yes [id number] 10mg Take 1 tablet by mouth every 6 (six) hours as needed for Nausea and Vomiting (N/V). [facility] proCHLORper azine 10 mg tablet 01-27 00:00: 00 Yes [id number] 10mg Take 1 tablet by mouth every 6 (six) hours as needed for Nausea and Vomiting (N/V). [facility] proCHLORper azine 10 mg tablet 01-27 00:00: 00 Yes [id number] 10mg Take 1 tablet by mouth every 6 (six) hours as needed for Nausea and Vomiting (N/V). [facility] proCHLORper azine 10 mg tablet 01-27 00:00: 00 Yes [id number] 10mg Take 1 tablet by mouth every 6 (six) hours as needed for Nausea and Vomiting (N/V). [facility] proCHLORper azine 10 mg tablet 01-27 00:00: 00 Yes [id number] 10mg Take 1 tablet by mouth every 6 (six) hours as needed for Nausea and Vomiting (N/V). [facility] proCHLORper azine 10 mg tablet 01-27 00:00: 00 Yes [id number] 10mg Take 1 tablet by mouth every 6 (six) hours as needed for Nausea and Vomiting (N/V). [facility] proCHLORper azine 10 mg tablet 01-27 00:00: 00 Yes [id number] 10mg Take 1 tablet by mouth every 6 (six) hours as needed for Nausea and Vomiting (N/V). [facility] proCHLORper azine 10 mg tablet 01-27 00:00: 00 Yes [id number] 10mg Take 1 tablet by mouth every 6 (six) hours as needed for Nausea and Vomiting (N/V). [facility] proCHLORper azine 10 mg tablet 0 01-27 00:00: 00 Yes [id number] 10mg Take 1 tablet by mouth every 6 (six) hours as needed for Nausea and Vomiting (N/V). [facility] proCHLORper azine 10 mg tablet 01-27 00:00: 00 Yes [id number] 10mg Take 1 tablet by mouth every 6 (six) hours as needed for Nausea and Vomiting (N/V). [facility] proCHLORper azine 10 mg tablet 01-27 00:00: 00 Yes [id number] 10mg Take 1 tablet by mouth every 6 (six) hours as needed for Nausea and Vomiting (N/V). [facility] proCHLORper azine 10 mg tablet 01-27 00:00: 00 Yes [id number] 10mg Take 1 tablet by mouth every 6 (six) hours as needed for Nausea and Vomiting (N/V). [facility] proCHLORper azine 10 mg tablet 01-27 00:00: 00 Yes [id number] 10mg Take 1 tablet by mouth every 6 (six) hours as needed for Nausea and Vomiting (N/V). [facility] proCHLORper azine 10 mg tablet 01-27 00:00: 00 Yes [id number] 10mg Take 1 tablet by mouth every 6 (six) hours as needed for Nausea and Vomiting (N/V). [facility] proCHLORper azine 10 mg tablet 01-27 00:00: 00 Yes [id number] 10mg Take 1 tablet by mouth every 6 (six) hours as needed for Nausea and Vomiting (N/V). [facility] proCHLORper azine 10 mg tablet 01-27 00:00: 00 Yes [id number] 10mg Take 1 tablet by mouth every 6 (six) hours as needed for Nausea and Vomiting (N/V). [facility] proCHLORper azine 10 mg tablet 01-27 00:00: 00 Yes [id number] 10mg Take 1 tablet by mouth every 6 (six) hours as needed for Nausea and Vomiting (N/V). [facility] proCHLORper azine 10 mg tablet 01-27 00:00: 00 Yes [id number] 10mg Take 1 tablet by mouth every 6 (six) hours as needed for Nausea and Vomiting (N/V). [facility] proCHLORper azine 10 mg tablet 01-27 00:00: 00 Yes [id number] 10mg Take 1 tablet by mouth every 6 (six) hours as needed for Nausea and Vomiting (N/V). [facility] proCHLORper azine 10 mg tablet 01-27 00:00: 00 Yes [id number] 10mg Take 1 tablet by mouth every 6 (six) hours as needed for Nausea and Vomiting (N/V). [facility] proCHLORper azine 10 mg tablet 01-27 00:00: 00 Yes [id number] 10mg Take 1 tablet by mouth every 6 (six) hours as needed for Nausea and Vomiting (N/V). [facility] proCHLORper azine 10 mg tablet 01-27 00:00: 00 Yes [id number] 10mg Take 1 tablet by mouth every 6 (six) hours as needed for Nausea and Vomiting (N/V). [facility] proCHLORper azine 10 mg tablet 01-27 00:00: 00 Yes [id number] 10mg Take 1 tablet by mouth every 6 (six) hours as needed for Nausea and Vomiting (N/V). [facility] proCHLORper azine 10 mg tablet 01-27 00:00: 00 Yes [id number] 10mg Take 1 tablet by mouth every 6 (six) hours as needed for Nausea and Vomiting (N/V). [facility] proCHLORper azine 10 mg tablet 01-27 00:00: 00 Yes [id number] 10mg Take 1 tablet by mouth every 6 (six) hours as needed for Nausea and Vomiting (N/V). [facility] proCHLORper azine 10 mg tablet 01-27 00:00: 00 Yes [id number] 10mg Take 1 tablet by mouth every 6 (six) hours as needed for Nausea and Vomiting (N/V). [facility] proCHLORper azine 10 mg tablet 01-27 00:00: 00 Yes [id number] 10mg Take 1 tablet by mouth every 6 (six) hours as needed for Nausea and Vomiting (N/V). [facility] proCHLORper azine 10 mg tablet 01-27 00:00: 00 Yes [id number] 10mg Take 1 tablet by mouth every 6 (six) hours as needed for Nausea and Vomiting (N/V). [facility] proCHLORper azine 10 mg tablet 01-27 00:00: 00 Yes [id number] 10mg Take 1 tablet by mouth every 6 (six) hours as needed for Nausea and Vomiting (N/V). [facility] proCHLORper azine 10 mg tablet 01-27 00:00: 00 Yes [id number] 10mg Take 1 tablet by mouth every 6 (six) hours as needed for Nausea and Vomiting (N/V). [facility] proCHLORper azine 10 mg tablet 01-27 00:00: 00 Yes [id number] 10mg Take 1 tablet by mouth every 6 (six) hours as needed for Nausea and Vomiting (N/V). [facility] proCHLORper azine 10 mg tablet 01-27 00:00: 00 Yes [id number] 10mg Take 1 tablet by mouth every 6 (six) hours as needed for Nausea and Vomiting (N/V). [facility] proCHLORper azine 10 mg tablet 01-27 00:00: 00 Yes [id number] 10mg Take 1 tablet by mouth every 6 (six) hours as needed for Nausea and Vomiting (N/V). [facility] proCHLORper azine 10 mg tablet 0 01-27 00:00: 00 Yes [id number] 10mg Take 1 tablet by mouth every 6 (six) hours as needed for Nausea and Vomiting (N/V). [facility] proCHLORper azine 10 mg tablet 01-27 00:00: 00 Yes [id number] 10mg Take 1 tablet by mouth every 6 (six) hours as needed for Nausea and Vomiting (N/V). [facility] proCHLORper azine 10 mg tablet 01-27 00:00: 00 Yes [id number] 10mg Take 1 tablet by mouth every 6 (six) hours as needed for Nausea and Vomiting (N/V). [facility] proCHLORper azine 10 mg tablet 01-27 00:00: 00 Yes [id number] 10mg Take 1 tablet by mouth every 6 (six) hours as needed for Nausea and Vomiting (N/V). [facility] proCHLORper azine 10 mg tablet 01-27 00:00: 00 Yes [id number] 10mg Take 1 tablet by mouth every 6 (six) hours as needed for Nausea and Vomiting (N/V). [facility] proCHLORper azine 10 mg tablet 01-27 00:00: 00 Yes [id number] 10mg Take 1 tablet by mouth every 6 (six) hours as needed for Nausea and Vomiting (N/V). [facility] proCHLORper azine 10 mg tablet 01-27 00:00: 00 Yes [id number] 10mg Take 1 tablet by mouth every 6 (six) hours as needed for Nausea and Vomiting (N/V). [facility] proCHLORper azine 10 mg tablet 01-27 00:00: 00 Yes [id number] 10mg Take 1 tablet by mouth every 6 (six) hours as needed for Nausea and Vomiting (N/V). [facility] proCHLORper azine 10 mg tablet 01-27 00:00: 00 Yes [id number] 10mg Take 1 tablet by mouth every 6 (six) hours as needed for Nausea and Vomiting (N/V). [facility] proCHLORper azine 10 mg tablet 01-27 00:00: 00 Yes [id number] 10mg Take 1 tablet by mouth every 6 (six) hours as needed for Nausea and Vomiting (N/V). [facility] proCHLORper azine 10 mg tablet 01-27 00:00: 00 Yes [id number] 10mg Take 1 tablet by mouth every 6 (six) hours as needed for Nausea and Vomiting (N/V). [facility] loperamide 2 mg capsule 01-27 00:00: 00 05-21 00:00 :00 No [id number] 4mg Take 2 capsules by mouth every 4 (four) hours as needed for Diarrhea. Take 2 capsules (4 mg) after the first loose stool, then 1 capsule (2 mg) every 4 hours as needed for diarrhea. Maximum 8 capsules per day. [facility] ondansetron 4 mg disintegrat ing tablet 01-27 00:00: 00 01-21 00:00 :00 No [id number] 4mg Take 1 tablet by mouth every 8 (eight) hours as needed for Nausea and Vomiting (N/V). [facility] ondansetron 4 mg disintegrat ing tablet 01-27 00:00: 00 01-21 00:00 :00 No [id number] 4mg Take 1 tablet by mouth every 8 (eight) hours as needed for Nausea and Vomiting (N/V). [facility] pioglitazon e-metformin 15-850 mg per tablet 01-25 00:00: 00 Yes [id number] .5{tbl} Take 0.5 tablets by mouth 2 (two) times daily with meals. [facility] pioglitazon e-metformin 15-850 mg per tablet 01-25 00:00: 00 Yes [id number] .5{tbl} Take 0.5 tablets by mouth 2 (two) times daily with meals. [facility] pioglitazon e-metformin 15-850 mg per tablet 01-25 00:00: 00 Yes [id number] .5{tbl} Take 0.5 tablets by mouth 2 (two) times daily with meals. [facility] pioglitazon e-metformin 15-850 mg per tablet 01-25 00:00: 00 Yes [id number] .5{tbl} Take 0.5 tablets by mouth 2 (two) times daily with meals. [facility] pioglitazon e-metformin 15-850 mg per tablet 01-25 00:00: 00 Yes [id number] .5{tbl} Take 0.5 tablets by mouth 2 (two) times daily with meals. [facility] pioglitazon e-metformin 15-850 mg per tablet 01-25 00:00: 00 Yes [id number] .5{tbl} Take 0.5 tablets by mouth 2 (two) times daily with meals. [facility] pioglitazon e-metformin 15-850 mg per tablet 01-25 00:00: 00 Yes [id number] .5{tbl} Take 0.5 tablets by mouth 2 (two) times daily with meals. [facility] pioglitazon e-metformin 15-850 mg per tablet 01-25 00:00: 00 Yes [id number] .5{tbl} Take 0.5 tablets by mouth 2 (two) times daily with meals. [facility] pioglitazon e-metformin 15-850 mg per tablet 01-25 00:00: 00 Yes [id number] .5{tbl} Take 0.5 tablets by mouth 2 (two) times daily with meals. [facility] pioglitazon e-metformin 15-850 mg per tablet 01-25 00:00: 00 Yes [id number] .5{tbl} Take 0.5 tablets by mouth 2 (two) times daily with meals. [facility] pioglitazon e-metformin 15-850 mg per tablet 01-25 00:00: 00 Yes [id number] .5{tbl} Take 0.5 tablets by mouth 2 (two) times daily with meals. [facility] pioglitazon e-metformin 15-850 mg per tablet 01-25 00:00: 00 Yes [id number] .5{tbl} Take 0.5 tablets by mouth 2 (two) times daily with meals. [facility] pioglitazon e-metformin 15-850 mg per tablet 01-25 00:00: 00 Yes [id number] .5{tbl} Take 0.5 tablets by mouth 2 (two) times daily with meals. [facility] pioglitazon e-metformin 15-850 mg per tablet 01-25 00:00: 00 Yes [id number] .5{tbl} Take 0.5 tablets by mouth 2 (two) times daily with meals. [facility] pioglitazon e-metformin 15-850 mg per tablet 01-25 00:00: 00 Yes [id number] .5{tbl} Take 0.5 tablets by mouth 2 (two) times daily with meals. [facility] pioglitazon e-metformin 15-850 mg per tablet 01-25 00:00: 00 Yes [id number] .5{tbl} Take 0.5 tablets by mouth 2 (two) times daily with meals. [facility] pioglitazon e-metformin 15-850 mg per tablet 01-25 00:00: 00 Yes [id number] .5{tbl} Take 0.5 tablets by mouth 2 (two) times daily with meals. [facility] pioglitazon e-metformin 15-850 mg per tablet 01-25 00:00: 00 Yes [id number] .5{tbl} Take 0.5 tablets by mouth 2 (two) times daily with meals. [facility] pioglitazon e-metformin 15-850 mg per tablet 01-25 00:00: 00 Yes [id number] .5{tbl} Take 0.5 tablets by mouth 2 (two) times daily with meals. [facility] pioglitazon e-metformin 15-850 mg per tablet 01-25 00:00: 00 Yes [id number] .5{tbl} Take 0.5 tablets by mouth 2 (two) times daily with meals. [facility] pioglitazon e-metformin 15-850 mg per tablet 01-25 00:00: 00 Yes [id number] .5{tbl} Take 0.5 tablets by mouth 2 (two) times daily with meals. [facility] pioglitazon e-metformin 15-850 mg per tablet 01-25 00:00: 00 Yes [id number] .5{tbl} Take 0.5 tablets by mouth 2 (two) times daily with meals. [facility] pioglitazon e-metformin 15-850 mg per tablet 01-25 00:00: 00 Yes [id number] .5{tbl} Take 0.5 tablets by mouth 2 (two) times daily with meals. [facility] pioglitazon e-metformin 15-850 mg per tablet 01-25 00:00: 00 Yes [id number] .5{tbl} Take 0.5 tablets by mouth 2 (two) times daily with meals. [facility] pioglitazon e-metformin 15-850 mg per tablet 01-25 00:00: 00 Yes [id number] .5{tbl} Take 0.5 tablets by mouth 2 (two) times daily with meals. [facility] pioglitazon e-metformin 15-850 mg per tablet 01-25 00:00: 00 Yes [id number] .5{tbl} Take 0.5 tablets by mouth 2 (two) times daily with meals. [facility] pioglitazon e-metformin 15-850 mg per tablet 01-25 00:00: 00 Yes [id number] .5{tbl} Take 0.5 tablets by mouth 2 (two) times daily with meals. [facility] pioglitazon e-metformin 15-850 mg per tablet 01-25 00:00: 00 Yes [id number] .5{tbl} Take 0.5 tablets by mouth 2 (two) times daily with meals. [facility] pioglitazon e-metformin 15-850 mg per tablet 01-25 00:00: 00 Yes [id number] .5{tbl} Take 0.5 tablets by mouth 2 (two) times daily with meals. [facility] pioglitazon e-metformin 15-850 mg per tablet 01-25 00:00: 00 Yes [id number] .5{tbl} Take 0.5 tablets by mouth 2 (two) times daily with meals. [facility] pioglitazon e-metformin 15-850 mg per tablet 01-25 00:00: 00 Yes [id number] .5{tbl} Take 0.5 tablets by mouth 2 (two) times daily with meals. [facility] pioglitazon e-metformin 15-850 mg per tablet 01-25 00:00: 00 Yes [id number] .5{tbl} Take 0.5 tablets by mouth 2 (two) times daily with meals. [facility] pioglitazon e-metformin 15-850 mg per tablet 01-25 00:00: 00 Yes [id number] .5{tbl} Take 0.5 tablets by mouth 2 (two) times daily with meals. [facility] pioglitazon e-metformin 15-850 mg per tablet 01-25 00:00: 00 Yes [id number] .5{tbl} Take 0.5 tablets by mouth 2 (two) times daily with meals. [facility] pioglitazon e-metformin 15-850 mg per tablet 01-25 00:00: 00 Yes [id number] .5{tbl} Take 0.5 tablets by mouth 2 (two) times daily with meals. [facility] pioglitazon e-metformin 15-850 mg per tablet 01-25 00:00: 00 Yes [id number] .5{tbl} Take 0.5 tablets by mouth 2 (two) times daily with meals. [facility] pioglitazon e-metformin 15-850 mg per tablet 01-25 00:00: 00 Yes [id number] .5{tbl} Take 0.5 tablets by mouth 2 (two) times daily with meals. [facility] pioglitazon e-metformin 15-850 mg per tablet 01-25 00:00: 00 Yes [id number] .5{tbl} Take 0.5 tablets by mouth 2 (two) times daily with meals. [facility] pioglitazon e-metformin 15-850 mg per tablet 01-25 00:00: 00 Yes [id number] .5{tbl} Take 0.5 tablets by mouth 2 (two) times daily with meals. [facility] pioglitazon e-metformin 15-850 mg per tablet 01-25 00:00: 00 Yes [id number] .5{tbl} Take 0.5 tablets by mouth 2 (two) times daily with meals. [facility] pioglitazon e-metformin 15-850 mg per tablet 01-25 00:00: 00 Yes [id number] .5{tbl} Take 0.5 tablets by mouth 2 (two) times daily with meals. [facility] pioglitazon e-metformin 15-850 mg per tablet 01-25 00:00: 00 Yes [id number] .5{tbl} Take 0.5 tablets by mouth 2 (two) times daily with meals. [facility] pioglitazon e-metformin 15-850 mg per tablet 01-25 00:00: 00 Yes [id number] .5{tbl} Take 0.5 tablets by mouth 2 (two) times daily with meals. [facility] pioglitazon e-metformin 15-850 mg per tablet 01-25 00:00: 00 Yes [id number] .5{tbl} Take 0.5 tablets by mouth 2 (two) times daily with meals. [facility] pioglitazon e-metformin 15-850 mg per tablet 01-25 00:00: 00 Yes [id number] .5{tbl} Take 0.5 tablets by mouth 2 (two) times daily with meals. [facility] pioglitazon e-metformin 15-850 mg per tablet 01-25 00:00: 00 Yes [id number] .5{tbl} Take 0.5 tablets by mouth 2 (two) times daily with meals. [facility] pioglitazon e-metformin 15-850 mg per tablet 01-25 00:00: 00 Yes [id number] .5{tbl} Take 0.5 tablets by mouth 2 (two) times daily with meals. [facility] pioglitazon e-metformin 15-850 mg per tablet 01-25 00:00: 00 Yes [id number] .5{tbl} Take 0.5 tablets by mouth 2 (two) times daily with meals. [facility] pioglitazon e-metformin 15-850 mg per tablet 01-25 00:00: 00 Yes [id number] .5{tbl} Take 0.5 tablets by mouth 2 (two) times daily with meals. [facility] pioglitazon e-metformin 15-850 mg per tablet 01-25 00:00: 00 Yes [id number] .5{tbl} Take 0.5 tablets by mouth 2 (two) times daily with meals. [facility] pioglitazon e-metformin 15-850 mg per tablet 01-25 00:00: 00 Yes [id number] .5{tbl} Take 0.5 tablets by mouth 2 (two) times daily with meals. [facility] pioglitazon e-metformin 15-850 mg per tablet 01-25 00:00: 00 Yes [id number] .5{tbl} Take 0.5 tablets by mouth 2 (two) times daily with meals. [facility] pioglitazon e-metformin 15-850 mg per tablet 01-25 00:00: 00 Yes [id number] .5{tbl} Take 0.5 tablets by mouth 2 (two) times daily with meals. [facility] pioglitazon e-metformin 15-850 mg per tablet 01-25 00:00: 00 Yes [id number] .5{tbl} Take 0.5 tablets by mouth 2 (two) times daily with meals. [facility] pioglitazon e-metformin 15-850 mg per tablet 01-25 00:00: 00 Yes [id number] .5{tbl} Take 0.5 tablets by mouth 2 (two) times daily with meals. [facility] pioglitazon e-metformin 15-850 mg per tablet 01-25 00:00: 00 Yes [id number] .5{tbl} Take 0.5 tablets by mouth 2 (two) times daily with meals. [facility] pioglitazon e-metformin 15-850 mg per tablet 01-25 00:00: 00 Yes [id number] .5{tbl} Take 0.5 tablets by mouth 2 (two) times daily with meals. [facility] pioglitazon e-metformin 15-850 mg per tablet 01-25 00:00: 00 Yes [id number] .5{tbl} Take 0.5 tablets by mouth 2 (two) times daily with meals. [facility] pioglitazon e-metformin 15-850 mg per tablet 01-25 00:00: 00 Yes [id number] .5{tbl} Take 0.5 tablets by mouth 2 (two) times daily with meals. [facility] pioglitazon e-metformin 15-850 mg per tablet 01-25 00:00: 00 Yes [id number] .5{tbl} Take 0.5 tablets by mouth 2 (two) times daily with meals. [facility] pioglitazon e-metformin 15-850 mg per tablet 01-25 00:00: 00 Yes [id number] .5{tbl} Take 0.5 tablets by mouth 2 (two) times daily with meals. [facility] pioglitazon e-metformin 15-850 mg per tablet 01-25 00:00: 00 Yes [id number] .5{tbl} Take 0.5 tablets by mouth 2 (two) times daily with meals. [facility] pioglitazon e-metformin 15-850 mg per tablet 01-25 00:00: 00 Yes [id number] .5{tbl} Take 0.5 tablets by mouth 2 (two) times daily with meals. [facility] pioglitazon e-metformin 15-850 mg per tablet 01-25 00:00: 00 Yes [id number] .5{tbl} Take 0.5 tablets by mouth 2 (two) times daily with meals. [facility] pioglitazon e-metformin 15-850 mg per tablet 01-25 00:00: 00 Yes [id number] .5{tbl} Take 0.5 tablets by mouth 2 (two) times daily with meals. [facility] pioglitazon e-metformin 15-850 mg per tablet 01-25 00:00: 00 Yes [id number] .5{tbl} Take 0.5 tablets by mouth 2 (two) times daily with meals. [facility] pioglitazon e-metformin 15-850 mg per tablet 01-25 00:00: 00 Yes [id number] .5{tbl} Take 0.5 tablets by mouth 2 (two) times daily with meals. [facility] pioglitazon e-metformin 15-850 mg per tablet 01-25 00:00: 00 Yes [id number] .5{tbl} Take 0.5 tablets by mouth 2 (two) times daily with meals. [facility] pioglitazon e-metformin 15-850 mg per tablet 01-25 00:00: 00 Yes [id number] .5{tbl} Take 0.5 tablets by mouth 2 (two) times daily with meals. [facility] pioglitazon e-metformin 15-850 mg per tablet 01-25 00:00: 00 Yes [id number] .5{tbl} Take 0.5 tablets by mouth 2 (two) times daily with meals. [facility] pioglitazon e-metformin 15-850 mg per tablet 01-25 00:00: 00 Yes [id number] .5{tbl} Take 0.5 tablets by mouth 2 (two) times daily with meals. [facility] pioglitazon e-metformin 15-850 mg per tablet 01-25 00:00: 00 Yes [id number] .5{tbl} Take 0.5 tablets by mouth 2 (two) times daily with meals. [facility] pioglitazon e-metformin 15-850 mg per tablet 01-25 00:00: 00 Yes [id number] .5{tbl} Take 0.5 tablets by mouth 2 (two) times daily with meals. [facility] pioglitazon e-metformin 15-850 mg per tablet 01-25 00:00: 00 Yes [id number] .5{tbl} Take 0.5 tablets by mouth 2 (two) times daily with meals. [facility] pioglitazon e-metformin 15-850 mg per tablet 01-25 00:00: 00 Yes [id number] .5{tbl} Take 0.5 tablets by mouth 2 (two) times daily with meals. [facility] pioglitazon e-metformin 15-850 mg per tablet 01-25 00:00: 00 Yes [id number] .5{tbl} Take 0.5 tablets by mouth 2 (two) times daily with meals. [facility] pioglitazon e-metformin 15-850 mg per tablet 01-25 00:00: 00 Yes [id number] .5{tbl} Take 0.5 tablets by mouth 2 (two) times daily with meals. [facility] pioglitazon e-metformin 15-850 mg per tablet 01-25 00:00: 00 Yes [id number] .5{tbl} Take 0.5 tablets by mouth 2 (two) times daily with meals. [facility] pioglitazon e-metformin 15-850 mg per tablet 01-25 00:00: 00 Yes [id number] .5{tbl} Take 0.5 tablets by mouth 2 (two) times daily with meals. [facility] pioglitazon e-metformin 15-850 mg per tablet 01-25 00:00: 00 Yes [id number] .5{tbl} Take 0.5 tablets by mouth 2 (two) times daily with meals. [facility] pioglitazon e-metformin 15-850 mg per tablet 01-25 00:00: 00 Yes [id number] .5{tbl} Take 0.5 tablets by mouth 2 (two) times daily with meals. [facility] pioglitazon e-metformin 15-850 mg per tablet 01-25 00:00: 00 Yes [id number] .5{tbl} Take 0.5 tablets by mouth 2 (two) times daily with meals. [facility] pioglitazon e-metformin 15-850 mg per tablet 01-25 00:00: 00 Yes [id number] .5{tbl} Take 0.5 tablets by mouth 2 (two) times daily with meals. [facility] pioglitazon e-metformin 15-850 mg per tablet 01-25 00:00: 00 Yes [id number] .5{tbl} Take 0.5 tablets by mouth 2 (two) times daily with meals. [facility] pioglitazon e-metformin 15-850 mg per tablet 01-25 00:00: 00 Yes [id number] .5{tbl} Take 0.5 tablets by mouth 2 (two) times daily with meals. [facility] pioglitazon e-metformin 15-850 mg per tablet 01-25 00:00: 00 Yes [id number] .5{tbl} Take 0.5 tablets by mouth 2 (two) times daily with meals. [facility] pioglitazon e-metformin 15-850 mg per tablet 01-25 00:00: 00 Yes [id number] .5{tbl} Take 0.5 tablets by mouth 2 (two) times daily with meals. [facility] pioglitazon e-metformin 15-850 mg per tablet 01-25 00:00: 00 Yes [id number] .5{tbl} Take 0.5 tablets by mouth 2 (two) times daily with meals. [facility] pioglitazon e-metformin 15-850 mg per tablet 01-25 00:00: 00 Yes [id number] .5{tbl} Take 0.5 tablets by mouth 2 (two) times daily with meals. [facility] pioglitazon e-metformin 15-850 mg per tablet 01-25 00:00: 00 Yes [id number] .5{tbl} Take 0.5 tablets by mouth 2 (two) times daily with meals. [facility] pioglitazon e-metformin 15-850 mg per tablet 01-25 00:00: 00 Yes [id number] .5{tbl} Take 0.5 tablets by mouth 2 (two) times daily with meals. [facility] pioglitazon e-metformin 15-850 mg per tablet 01-25 00:00: 00 Yes [id number] .5{tbl} Take 0.5 tablets by mouth 2 (two) times daily with meals. [facility] pioglitazon e-metformin 15-850 mg per tablet 01-25 00:00: 00 Yes [id number] .5{tbl} Take 0.5 tablets by mouth 2 (two) times daily with meals. [facility] pioglitazon e-metformin 15-850 mg per tablet 01-25 00:00: 00 Yes [id number] .5{tbl} Take 0.5 tablets by mouth 2 (two) times daily with meals. [facility] pioglitazon e-metformin 15-850 mg per tablet 01-25 00:00: 00 Yes [id number] .5{tbl} Take 0.5 tablets by mouth 2 (two) times daily with meals. [facility] pioglitazon e-metformin 15-850 mg per tablet 01-25 00:00: 00 Yes [id number] .5{tbl} Take 0.5 tablets by mouth 2 (two) times daily with meals. [facility] pioglitazon e-metformin 15-850 mg per tablet 01-25 00:00: 00 Yes [id number] .5{tbl} Take 0.5 tablets by mouth 2 (two) times daily with meals. [facility] pioglitazon e-metformin 15-850 mg per tablet 01-25 00:00: 00 Yes [id number] .5{tbl} Take 0.5 tablets by mouth 2 (two) times daily with meals. [facility] pioglitazon e-metformin 15-850 mg per tablet 01-25 00:00: 00 Yes [id number] .5{tbl} Take 0.5 tablets by mouth 2 (two) times daily with meals. [facility] pioglitazon e-metformin 15-850 mg per tablet 01-25 00:00: 00 Yes [id number] .5{tbl} Take 0.5 tablets by mouth 2 (two) times daily with meals. [facility] pioglitazon e-metformin 15-850 mg per tablet 01-25 00:00: 00 Yes [id number] .5{tbl} Take 0.5 tablets by mouth 2 (two) times daily with meals. [facility] pioglitazon e-metformin 15-850 mg per tablet 01-25 00:00: 00 Yes [id number] .5{tbl} Take 0.5 tablets by mouth 2 (two) times daily with meals. [facility] pioglitazon e-metformin 15-850 mg per tablet 01-25 00:00: 00 Yes [id number] .5{tbl} Take 0.5 tablets by mouth 2 (two) times daily with meals. [facility] pioglitazon e-metformin 15-850 mg per tablet 01-25 00:00: 00 Yes [id number] .5{tbl} Take 0.5 tablets by mouth 2 (two) times daily with meals. [facility] pioglitazon e-metformin 15-850 mg per tablet 01-25 00:00: 00 Yes [id number] .5{tbl} Take 0.5 tablets by mouth 2 (two) times daily with meals. [facility] pioglitazon e-metformin 15-850 mg per tablet 01-25 00:00: 00 Yes [id number] .5{tbl} Take 0.5 tablets by mouth 2 (two) times daily with meals. [facility] pioglitazon e-metformin 15-850 mg per tablet 01-25 00:00: 00 Yes [id number] .5{tbl} Take 0.5 tablets by mouth 2 (two) times daily with meals. [facility] pioglitazon e-metformin 15-850 mg per tablet 01-25 00:00: 00 Yes [id number] .5{tbl} Take 0.5 tablets by mouth 2 (two) times daily with meals. [facility] pioglitazon e-metformin 15-850 mg per tablet 01-25 00:00: 00 Yes [id number] .5{tbl} Take 0.5 tablets by mouth 2 (two) times daily with meals. [facility] pioglitazon e-metformin 15-850 mg per tablet 01-25 00:00: 00 Yes [id number] .5{tbl} Take 0.5 tablets by mouth 2 (two) times daily with meals. [facility] pioglitazon e-metformin 15-850 mg per tablet 01-25 00:00: 00 Yes [id number] .5{tbl} Take 0.5 tablets by mouth 2 (two) times daily with meals. [facility] pioglitazon e-metformin 15-850 mg per tablet 01-25 00:00: 00 11-20 00:00 :00 No [id number] .5{tbl} Take 0.5 tablets by mouth 2 (two) times daily with meals. [facility] pioglitazon e-metformin 15-850 mg per tablet 01-25 00:00: 00 11-20 00:00 :00 No [id number] .5{tbl} Take 0.5 tablets by mouth 2 (two) times daily with meals. [facility] pioglitazon e-metformin 15-850 mg per tablet 01-25 00:00: 00 11-20 00:00 :00 No [id number] .5{tbl} Take 0.5 tablets by mouth 2 (two) times daily with meals. [facility] fluticasone propionate (FLONASE ALLERGY RELIEF) 50 mcg/actuati on nasal spray 11-28 00:00: 00 Yes [id number] 2{spray } Use 2 Sprays in each nostril daily. [facility] fluticasone propionate (FLONASE ALLERGY RELIEF) 50 mcg/actuati on nasal spray 11-28 00:00: 00 Yes [id number] 2{spray } Use 2 Sprays in each nostril daily. [facility] fluticasone propionate (FLONASE ALLERGY RELIEF) 50 mcg/actuati on nasal spray 11-28 00:00: 00 Yes [id number] 2{spray } Use 2 Sprays in each nostril daily. [facility] fluticasone propionate (FLONASE ALLERGY RELIEF) 50 mcg/actuati on nasal spray 11-28 00:00: 00 Yes [id number] 2{spray } Use 2 Sprays in each nostril daily. [facility] fluticasone propionate (FLONASE ALLERGY RELIEF) 50 mcg/actuati on nasal spray 11-28 00:00: 00 Yes [id number] 2{spray } Use 2 Sprays in each nostril daily. [facility] fluticasone propionate (FLONASE ALLERGY RELIEF) 50 mcg/actuati on nasal spray 11-28 00:00: 00 Yes [id number] 2{spray } Use 2 Sprays in each nostril daily. [facility] fluticasone propionate (FLONASE ALLERGY RELIEF) 50 mcg/actuati on nasal spray 11-28 00:00: 00 Yes [id number] 2{spray } Use 2 Sprays in each nostril daily. [facility] fluticasone propionate (FLONASE ALLERGY RELIEF) 50 mcg/actuati on nasal spray 0 11-28 00:00: 00 Yes [id number] 2{spray } Use 2 Sprays in each nostril daily. [facility] fluticasone propionate (FLONASE ALLERGY RELIEF) 50 mcg/actuati on nasal spray 11-28 00:00: 00 Yes [id number] 2{spray } Use 2 Sprays in each nostril daily. [facility] fluticasone propionate (FLONASE ALLERGY RELIEF) 50 mcg/actuati on nasal spray 11-28 00:00: 00 Yes [id number] 2{spray } Use 2 Sprays in each nostril daily. [facility] fluticasone propionate (FLONASE ALLERGY RELIEF) 50 mcg/actuati on nasal spray 11-28 00:00: 00 Yes [id number] 2{spray } Use 2 Sprays in each nostril daily. [facility] fluticasone propionate (FLONASE ALLERGY RELIEF) 50 mcg/actuati on nasal spray 11-28 00:00: 00 Yes [id number] 2{spray } Use 2 Sprays in each nostril daily. [facility] fluticasone propionate (FLONASE ALLERGY RELIEF) 50 mcg/actuati on nasal spray 11-28 00:00: 00 Yes [id number] 2{spray } Use 2 Sprays in each nostril daily. [facility] fluticasone propionate (FLONASE ALLERGY RELIEF) 50 mcg/actuati on nasal spray 11-28 00:00: 00 Yes [id number] 2{spray } Use 2 Sprays in each nostril daily. [facility] fluticasone propionate (FLONASE ALLERGY RELIEF) 50 mcg/actuati on nasal spray 11-28 00:00: 00 Yes [id number] 2{spray } Use 2 Sprays in each nostril daily. [facility] fluticasone propionate (FLONASE ALLERGY RELIEF) 50 mcg/actuati on nasal spray 11-28 00:00: 00 Yes [id number] 2{spray } Use 2 Sprays in each nostril daily. [facility] fluticasone propionate (FLONASE ALLERGY RELIEF) 50 mcg/actuati on nasal spray 11-28 00:00: 00 Yes [id number] 2{spray } Use 2 Sprays in each nostril daily. [facility] fluticasone propionate (FLONASE ALLERGY RELIEF) 50 mcg/actuati on nasal spray 11-28 00:00: 00 Yes [id number] 2{spray } Use 2 Sprays in each nostril daily. [facility] fluticasone propionate (FLONASE ALLERGY RELIEF) 50 mcg/actuati on nasal spray 11-28 00:00: 00 Yes [id number] 2{spray } Use 2 Sprays in each nostril daily. [facility] fluticasone propionate (FLONASE ALLERGY RELIEF) 50 mcg/actuati on nasal spray 11-28 00:00: 00 Yes [id number] 2{spray } Use 2 Sprays in each nostril daily. [facility] fluticasone propionate (FLONASE ALLERGY RELIEF) 50 mcg/actuati on nasal spray 11-28 00:00: 00 Yes [id number] 2{spray } Use 2 Sprays in each nostril daily. [facility] fluticasone propionate (FLONASE ALLERGY RELIEF) 50 mcg/actuati on nasal spray 11-28 00:00: 00 Yes [id number] 2{spray } Use 2 Sprays in each nostril daily. [facility] fluticasone propionate (FLONASE ALLERGY RELIEF) 50 mcg/actuati on nasal spray 0 11-28 00:00: 00 Yes [id number] 2{spray } Use 2 Sprays in each nostril daily. [facility] fluticasone propionate (FLONASE ALLERGY RELIEF) 50 mcg/actuati on nasal spray -22 00:00: 00 Yes [id number] 2{spray } Use 2 Sprays in each nostril daily. [facility] fluticasone propionate (FLONASE ALLERGY RELIEF) 50 mcg/actuati on nasal spray 0 11-28 00:00: 00 Yes [id number] 2{spray } Use 2 Sprays in each nostril daily. [facility] fluticasone propionate (FLONASE ALLERGY RELIEF) 50 mcg/actuati on nasal spray 11-28 00:00: 00 Yes [id number] 2{spray } Use 2 Sprays in each nostril daily. [facility] fluticasone propionate (FLONASE ALLERGY RELIEF) 50 mcg/actuati on nasal spray 11-28 00:00: 00 Yes [id number] 2{spray } Use 2 Sprays in each nostril daily. [facility] fluticasone propionate (FLONASE ALLERGY RELIEF) 50 mcg/actuati on nasal spray 11-28 00:00: 00 Yes [id number] 2{spray } Use 2 Sprays in each nostril daily. [facility] fluticasone propionate (FLONASE ALLERGY RELIEF) 50 mcg/actuati on nasal spray 11-28 00:00: 00 Yes [id number] 2{spray } Use 2 Sprays in each nostril daily. [facility] fluticasone propionate (FLONASE ALLERGY RELIEF) 50 mcg/actuati on nasal spray 11-28 00:00: 00 Yes [id number] 2{spray } Use 2 Sprays in each nostril daily. [facility] fluticasone propionate (FLONASE ALLERGY RELIEF) 50 mcg/actuati on nasal spray 0 11-28 00:00: 00 Yes [id number] 2{spray } Use 2 Sprays in each nostril daily. [facility] fluticasone propionate (FLONASE ALLERGY RELIEF) 50 mcg/actuati on nasal spray 11-28 00:00: 00 Yes [id number] 2{spray } Use 2 Sprays in each nostril daily. [facility] fluticasone propionate (FLONASE ALLERGY RELIEF) 50 mcg/actuati on nasal spray 11-28 00:00: 00 Yes [id number] 2{spray } Use 2 Sprays in each nostril daily. [facility] fluticasone propionate (FLONASE ALLERGY RELIEF) 50 mcg/actuati on nasal spray 11-28 00:00: 00 Yes [id number] 2{spray } Use 2 Sprays in each nostril daily. [facility] fluticasone propionate (FLONASE ALLERGY RELIEF) 50 mcg/actuati on nasal spray 11-28 00:00: 00 Yes [id number] 2{spray } Use 2 Sprays in each nostril daily. [facility] fluticasone propionate (FLONASE ALLERGY RELIEF) 50 mcg/actuati on nasal spray 11-28 00:00: 00 Yes [id number] 2{spray } Use 2 Sprays in each nostril daily. [facility] fluticasone propionate (FLONASE ALLERGY RELIEF) 50 mcg/actuati on nasal spray 11-28 00:00: 00 Yes [id number] 2{spray } Use 2 Sprays in each nostril daily. [facility] fluticasone propionate (FLONASE ALLERGY RELIEF) 50 mcg/actuati on nasal spray 11-28 00:00: 00 Yes [id number] 2{spray } Use 2 Sprays in each nostril daily. [facility] fluticasone propionate (FLONASE ALLERGY RELIEF) 50 mcg/actuati on nasal spray 0 11-28 00:00: 00 Yes [id number] 2{spray } Use 2 Sprays in each nostril daily. [facility] fluticasone propionate (FLONASE ALLERGY RELIEF) 50 mcg/actuati on nasal spray 2020-0 11-28 00:00: 00 Yes [id number] 2{spray } Use 2 Sprays in each nostril daily. [facility] fluticasone propionate (FLONASE ALLERGY RELIEF) 50 mcg/actuati on nasal spray 11-28 00:00: 00 Yes [id number] 2{spray } Use 2 Sprays in each nostril daily. [facility] fluticasone propionate (FLONASE ALLERGY RELIEF) 50 mcg/actuati on nasal spray 11-28 00:00: 00 Yes [id number] 2{spray } Use 2 Sprays in each nostril daily. [facility] fluticasone propionate (FLONASE ALLERGY RELIEF) 50 mcg/actuati on nasal spray 11-28 00:00: 00 Yes [id number] 2{spray } Use 2 Sprays in each nostril daily. [facility] fluticasone propionate (FLONASE ALLERGY RELIEF) 50 mcg/actuati on nasal spray 11-28 00:00: 00 Yes [id number] 2{spray } Use 2 Sprays in each nostril daily. [facility] fluticasone propionate (FLONASE ALLERGY RELIEF) 50 mcg/actuati on nasal spray 11-28 00:00: 00 Yes [id number] 2{spray } Use 2 Sprays in each nostril daily. [facility] fluticasone propionate (FLONASE ALLERGY RELIEF) 50 mcg/actuati on nasal spray 11-28 00:00: 00 Yes [id number] 2{spray } Use 2 Sprays in each nostril daily. [facility] fluticasone propionate (FLONASE ALLERGY RELIEF) 50 mcg/actuati on nasal spray 11-28 00:00: 00 Yes [id number] 2{spray } Use 2 Sprays in each nostril daily. [facility] fluticasone propionate (FLONASE ALLERGY RELIEF) 50 mcg/actuati on nasal spray 11-28 00:00: 00 Yes [id number] 2{spray } Use 2 Sprays in each nostril daily. [facility] fluticasone propionate (FLONASE ALLERGY RELIEF) 50 mcg/actuati on nasal spray 11-28 00:00: 00 Yes [id number] 2{spray } Use 2 Sprays in each nostril daily. [facility] fluticasone propionate (FLONASE ALLERGY RELIEF) 50 mcg/actuati on nasal spray 2020-0 11-28 00:00: 00 Yes [id number] 2{spray } Use 2 Sprays in each nostril daily. [facility] fluticasone propionate (FLONASE ALLERGY RELIEF) 50 mcg/actuati on nasal spray 2020-0 11-28 00:00: 00 Yes [id number] 2{spray } Use 2 Sprays in each nostril daily. [facility] fluticasone propionate (FLONASE ALLERGY RELIEF) 50 mcg/actuati on nasal spray 2020-0 11-28 00:00: 00 Yes [id number] 2{spray } Use 2 Sprays in each nostril daily. [facility] fluticasone propionate (FLONASE ALLERGY RELIEF) 50 mcg/actuati on nasal spray 2020-0 11-28 00:00: 00 Yes [id number] 2{spray } Use 2 Sprays in each nostril daily. [facility] fluticasone propionate (FLONASE ALLERGY RELIEF) 50 mcg/actuati on nasal spray 2020-0 11-28 00:00: 00 Yes [id number] 2{spray } Use 2 Sprays in each nostril daily. [facility] fluticasone propionate (FLONASE ALLERGY RELIEF) 50 mcg/actuati on nasal spray 0 11-28 00:00: 00 Yes [id number] 2{spray } Use 2 Sprays in each nostril daily. [facility] fluticasone propionate (FLONASE ALLERGY RELIEF) 50 mcg/actuati on nasal spray 2020-0 11-28 00:00: 00 Yes [id number] 2{spray } Use 2 Sprays in each nostril daily. [facility] fluticasone propionate (FLONASE ALLERGY RELIEF) 50 mcg/actuati on nasal spray 2020-0 11-28 00:00: 00 Yes [id number] 2{spray } Use 2 Sprays in each nostril daily. [facility] fluticasone propionate (FLONASE ALLERGY RELIEF) 50 mcg/actuati on nasal spray 11-28 00:00: 00 Yes [id number] 2{spray } Use 2 Sprays in each nostril daily. [facility] fluticasone propionate (FLONASE ALLERGY RELIEF) 50 mcg/actuati on nasal spray 11-28 00:00: 00 Yes [id number] 2{spray } Use 2 Sprays in each nostril daily. [facility] fluticasone propionate (FLONASE ALLERGY RELIEF) 50 mcg/actuati on nasal spray 11-28 00:00: 00 Yes [id number] 2{spray } Use 2 Sprays in each nostril daily. [facility] fluticasone propionate (FLONASE ALLERGY RELIEF) 50 mcg/actuati on nasal spray 11-28 00:00: 00 Yes [id number] 2{spray } Use 2 Sprays in each nostril daily. [facility] fluticasone propionate (FLONASE ALLERGY RELIEF) 50 mcg/actuati on nasal spray 11-28 00:00: 00 Yes [id number] 2{spray } Use 2 Sprays in each nostril daily. [facility] fluticasone propionate (FLONASE ALLERGY RELIEF) 50 mcg/actuati on nasal spray 11-28 00:00: 00 Yes [id number] 2{spray } Use 2 Sprays in each nostril daily. [facility] fluticasone propionate (FLONASE ALLERGY RELIEF) 50 mcg/actuati on nasal spray 11-28 00:00: 00 Yes [id number] 2{spray } Use 2 Sprays in each nostril daily. [facility] fluticasone propionate (FLONASE ALLERGY RELIEF) 50 mcg/actuati on nasal spray 11-28 00:00: 00 Yes [id number] 2{spray } Use 2 Sprays in each nostril daily. [facility] fluticasone propionate (FLONASE ALLERGY RELIEF) 50 mcg/actuati on nasal spray 11-28 00:00: 00 Yes [id number] 2{spray } Use 2 Sprays in each nostril daily. [facility] fluticasone propionate (FLONASE ALLERGY RELIEF) 50 mcg/actuati on nasal spray 11-28 00:00: 00 Yes [id number] 2{spray } Use 2 Sprays in each nostril daily. [facility] fluticasone propionate (FLONASE ALLERGY RELIEF) 50 mcg/actuati on nasal spray 11-28 00:00: 00 Yes [id number] 2{spray } Use 2 Sprays in each nostril daily. [facility] fluticasone propionate (FLONASE ALLERGY RELIEF) 50 mcg/actuati on nasal spray 11-28 00:00: 00 Yes [id number] 2{spray } Use 2 Sprays in each nostril daily. [facility] fluticasone propionate (FLONASE ALLERGY RELIEF) 50 mcg/actuati on nasal spray 11-28 00:00: 00 Yes [id number] 2{spray } Use 2 Sprays in each nostril daily. [facility] fluticasone propionate (FLONASE ALLERGY RELIEF) 50 mcg/actuati on nasal spray 11-28 00:00: 00 Yes [id number] 2{spray } Use 2 Sprays in each nostril daily. [facility] fluticasone propionate (FLONASE ALLERGY RELIEF) 50 mcg/actuati on nasal spray 11-28 00:00: 00 Yes [id number] 2{spray } Use 2 Sprays in each nostril daily. [facility] fluticasone propionate (FLONASE ALLERGY RELIEF) 50 mcg/actuati on nasal spray 0 11-28 00:00: 00 Yes [id number] 2{spray } Use 2 Sprays in each nostril daily. [facility] [facility] (FLONASE ALLERGY RELIEF) 50 mcg/actuati on nasal spray 0 11-28 00:00: 00 Yes [id number] 2{spray } Use 2 Sprays in each nostril daily. [facility] fluticasone propionate (FLONASE ALLERGY RELIEF) 50 mcg/actuati on nasal spray 2020-0 11-28 00:00: 00 Yes [id number] 2{spray } Use 2 Sprays in each nostril daily. [facility] fluticasone propionate (FLONASE ALLERGY RELIEF) 50 mcg/actuati on nasal spray 11-28 00:00: 00 Yes [id number] 2{spray } Use 2 Sprays in each nostril daily. [facility] fluticasone propionate (FLONASE ALLERGY RELIEF) 50 mcg/actuati on nasal spray 11-28 00:00: 00 Yes [id number] 2{spray } Use 2 Sprays in each nostril daily. [facility] fluticasone propionate (FLONASE ALLERGY RELIEF) 50 mcg/actuati on nasal spray 11-28 00:00: 00 Yes [id number] 2{spray } Use 2 Sprays in each nostril daily. [facility] fluticasone propionate (FLONASE ALLERGY RELIEF) 50 mcg/actuati on nasal spray 11-28 00:00: 00 Yes [id number] 2{spray } Use 2 Sprays in each nostril daily. [facility] fluticasone propionate (FLONASE ALLERGY RELIEF) 50 mcg/actuati on nasal spray 11-28 00:00: 00 Yes [id number] 2{spray } Use 2 Sprays in each nostril daily. [facility] fluticasone propionate (FLONASE ALLERGY RELIEF) 50 mcg/actuati on nasal spray 11-28 00:00: 00 Yes [id number] 2{spray } Use 2 Sprays in each nostril daily. [facility] fluticasone propionate (FLONASE ALLERGY RELIEF) 50 mcg/actuati on nasal spray 0 11-28 00:00: 00 Yes [id number] 2{spray } Use 2 Sprays in each nostril daily. [facility] fluticasone propionate (FLONASE ALLERGY RELIEF) 50 mcg/actuati on nasal spray 0 11-28 00:00: 00 Yes [id number] 2{spray } Use 2 Sprays in each nostril daily. [facility] fluticasone propionate (FLONASE ALLERGY RELIEF) 50 mcg/actuati on nasal spray 0 11-28 00:00: 00 Yes [id number] 2{spray } Use 2 Sprays in each nostril daily. [facility] fluticasone propionate (FLONASE ALLERGY RELIEF) 50 mcg/actuati on nasal spray 0 11-28 00:00: 00 Yes [id number] 2{spray } Use 2 Sprays in each nostril daily. [facility] fluticasone propionate (FLONASE ALLERGY RELIEF) 50 mcg/actuati on nasal spray 11-28 00:00: 00 Yes [id number] 2{spray } Use 2 Sprays in each nostril daily. [facility] fluticasone propionate (FLONASE ALLERGY RELIEF) 50 mcg/actuati on nasal spray 11-28 00:00: 00 Yes [id number] 2{spray } Use 2 Sprays in each nostril daily. [facility] fluticasone propionate (FLONASE ALLERGY RELIEF) 50 mcg/actuati on nasal spray 11-28 00:00: 00 Yes [id number] 2{spray } Use 2 Sprays in each nostril daily. [facility] fluticasone propionate (FLONASE ALLERGY RELIEF) 50 mcg/actuati on nasal spray 11-28 00:00: 00 Yes [id number] 2{spray } Use 2 Sprays in each nostril daily. [facility] fluticasone propionate (FLONASE ALLERGY RELIEF) 50 mcg/actuati on nasal spray 0 11-28 00:00: 00 Yes [id number] 2{spray } Use 2 Sprays in each nostril daily. [facility] fluticasone propionate (FLONASE ALLERGY RELIEF) 50 mcg/actuati on nasal spray 0 11-28 00:00: 00 Yes [id number] 2{spray } Use 2 Sprays in each nostril daily. [facility] fluticasone propionate (FLONASE ALLERGY RELIEF) 50 mcg/actuati on nasal spray 11-28 00:00: 00 Yes [id number] 2{spray } Use 2 Sprays in each nostril daily. [facility] fluticasone propionate (FLONASE ALLERGY RELIEF) 50 mcg/actuati on nasal spray 11-28 00:00: 00 Yes [id number] 2{spray } Use 2 Sprays in each nostril daily. [facility] fluticasone propionate (FLONASE ALLERGY RELIEF) 50 mcg/actuati on nasal spray 11-28 00:00: 00 Yes [id number] 2{spray } Use 2 Sprays in each nostril daily. [facility] fluticasone propionate (FLONASE ALLERGY RELIEF) 50 mcg/actuati on nasal spray 11-28 00:00: 00 Yes [id number] 2{spray } Use 2 Sprays in each nostril daily. [facility] fluticasone propionate (FLONASE ALLERGY RELIEF) 50 mcg/actuati on nasal spray 11-28 00:00: 00 Yes [id number] 2{spray } Use 2 Sprays in each nostril daily. [facility] fluticasone propionate (FLONASE ALLERGY RELIEF) 50 mcg/actuati on nasal spray 11-28 00:00: 00 Yes [id number] 2{spray } Use 2 Sprays in each nostril daily. [facility] fluticasone propionate (FLONASE ALLERGY RELIEF) 50 mcg/actuati on nasal spray 11-28 00:00: 00 Yes [id number] 2{spray } Use 2 Sprays in each nostril daily. [facility] fluticasone propionate (FLONASE ALLERGY RELIEF) 50 mcg/actuati on nasal spray 11-28 00:00: 00 Yes [id number] 2{spray } Use 2 Sprays in each nostril daily. [facility] fluticasone propionate (FLONASE ALLERGY RELIEF) 50 mcg/actuati on nasal spray 11-28 00:00: 00 Yes [id number] 2{spray } Use 2 Sprays in each nostril daily. [facility] fluticasone propionate (FLONASE ALLERGY RELIEF) 50 mcg/actuati on nasal spray 0 11-28 00:00: 00 Yes [id number] 2{spray } Use 2 Sprays in each nostril daily. [facility] fluticasone propionate (FLONASE ALLERGY RELIEF) 50 mcg/actuati on nasal spray 2020-0 11-28 00:00: 00 Yes [id number] 2{spray } Use 2 Sprays in each nostril daily. [facility] fluticasone propionate (FLONASE ALLERGY RELIEF) 50 mcg/actuati on nasal spray 0 11-28 00:00: 00 Yes [id number] 2{spray } Use 2 Sprays in each nostril daily. [facility] fluticasone propionate (FLONASE ALLERGY RELIEF) 50 mcg/actuati on nasal spray 0 11-28 00:00: 00 Yes [id number] 2{spray } Use 2 Sprays in each nostril daily. [facility] fluticasone propionate (FLONASE ALLERGY RELIEF) 50 mcg/actuati on nasal spray 11-28 00:00: 00 Yes [id number] 2{spray } Use 2 Sprays in each nostril daily. [facility] fluticasone propionate (FLONASE ALLERGY RELIEF) 50 mcg/actuati on nasal spray 11-28 00:00: 00 Yes [id number] 2{spray } Use 2 Sprays in each nostril daily. [facility] fluticasone propionate (FLONASE ALLERGY RELIEF) 50 mcg/actuati on nasal spray 2020-0 11-28 00:00: 00 Yes [id number] 2{spray } Use 2 Sprays in each nostril daily. [facility] fluticasone propionate (FLONASE ALLERGY RELIEF) 50 mcg/actuati on nasal spray 2020-0 11-28 00:00: 00 Yes [id number] 2{spray } Use 2 Sprays in each nostril daily. [facility] fluticasone propionate (FLONASE ALLERGY RELIEF) 50 mcg/actuati on nasal spray 11-28 00:00: 00 Yes [id number] 2{spray } Use 2 Sprays in each nostril daily. [facility] fluticasone propionate (FLONASE ALLERGY RELIEF) 50 mcg/actuati on nasal spray 11-28 00:00: 00 Yes [id number] 2{spray } Use 2 Sprays in each nostril daily. [facility] fluticasone propionate (FLONASE ALLERGY RELIEF) 50 mcg/actuati on nasal spray 11-28 00:00: 00 Yes [id number] 2{spray } Use 2 Sprays in each nostril daily. [facility] fluticasone propionate (FLONASE ALLERGY RELIEF) 50 mcg/actuati on nasal spray 11-28 00:00: 00 Yes [id number] 2{spray } Use 2 Sprays in each nostril daily. [facility] fluticasone propionate (FLONASE ALLERGY RELIEF) 50 mcg/actuati on nasal spray 11-28 00:00: 00 Yes [id number] 2{spray } Use 2 Sprays in each nostril daily. [facility] fluticasone propionate (FLONASE ALLERGY RELIEF) 50 mcg/actuati on nasal spray 11-28 00:00: 00 Yes [id number] 2{spray } Use 2 Sprays in each nostril daily. [facility] fluticasone propionate (FLONASE ALLERGY RELIEF) 50 mcg/actuati on nasal spray 11-28 00:00: 00 Yes [id number] 2{spray } Use 2 Sprays in each nostril daily. [facility] fluticasone propionate (FLONASE ALLERGY RELIEF) 50 mcg/actuati on nasal spray 11-28 00:00: 00 Yes [id number] 2{spray } Use 2 Sprays in each nostril daily. [facility] fluticasone propionate (FLONASE ALLERGY RELIEF) 50 mcg/actuati on nasal spray 11-28 00:00: 00 Yes [id number] 2{spray } Use 2 Sprays in each nostril daily. [facility] fluticasone propionate (FLONASE ALLERGY RELIEF) 50 mcg/actuati on nasal spray 11-28 00:00: 00 Yes [id number] 2{spray } Use 2 Sprays in each nostril daily. [facility] fluticasone propionate (FLONASE ALLERGY RELIEF) 50 mcg/actuati on nasal spray 11-28 00:00: 00 Yes [id number] 2{spray } Use 2 Sprays in each nostril daily. [facility] fluticasone propionate (FLONASE ALLERGY RELIEF) 50 mcg/actuati on nasal spray 11-28 00:00: 00 Yes [id number] 2{spray } Use 2 Sprays in each nostril daily. [facility] fluticasone propionate (FLONASE ALLERGY RELIEF) 50 mcg/actuati on nasal spray 11-28 00:00: 00 Yes [id number] 2{spray } Use 2 Sprays in each nostril daily. [facility] fluticasone propionate (FLONASE ALLERGY RELIEF) 50 mcg/actuati on nasal spray 11-28 00:00: 00 Yes [id number] 2{spray } Use 2 Sprays in each nostril daily. [facility] fluticasone propionate (FLONASE ALLERGY RELIEF) 50 mcg/actuati on nasal spray 11-28 00:00: 00 Yes [id number] 2{spray } Use 2 Sprays in each nostril daily. [facility] fluticasone propionate (FLONASE ALLERGY RELIEF) 50 mcg/actuati on nasal spray 0 11-28 00:00: 00 Yes [id number] 2{spray } Use 2 Sprays in each nostril daily. [facility] fluticasone propionate (FLONASE ALLERGY RELIEF) 50 mcg/actuati on nasal spray 0 11-28 00:00: 00 Yes [id number] 2{spray } Use 2 Sprays in each nostril daily. [facility] fluticasone propionate (FLONASE ALLERGY RELIEF) 50 mcg/actuati on nasal spray 2020-0 11-28 00:00: 00 Yes [id number] 2{spray } Use 2 Sprays in each nostril daily. [facility] fluticasone propionate (FLONASE ALLERGY RELIEF) 50 mcg/actuati on nasal spray 2020-0 11-28 00:00: 00 Yes [id number] 2{spray } Use 2 Sprays in each nostril daily. [facility] fluticasone propionate (FLONASE ALLERGY RELIEF) 50 mcg/actuati on nasal spray 11-28 00:00: 00 Yes [id number] 2{spray } Use 2 Sprays in each nostril daily. [facility] fluticasone propionate (FLONASE ALLERGY RELIEF) 50 mcg/actuati on nasal spray 11-28 00:00: 00 Yes [id number] 2{spray } Use 2 Sprays in each nostril daily. [facility] fluticasone propionate (FLONASE ALLERGY RELIEF) 50 mcg/actuati on nasal spray 11-28 00:00: 00 Yes [id number] 2{spray } Use 2 Sprays in each nostril daily. [facility] fluticasone propionate (FLONASE ALLERGY RELIEF) 50 mcg/actuati on nasal spray 11-28 00:00: 00 Yes [id number] 2{spray } Use 2 Sprays in each nostril daily. [facility] fluticasone propionate (FLONASE ALLERGY RELIEF) 50 mcg/actuati on nasal spray 11-28 00:00: 00 Yes [id number] 2{spray } Use 2 Sprays in each nostril daily. [facility] fluticasone propionate (FLONASE ALLERGY RELIEF) 50 mcg/actuati on nasal spray 2020-0 11-28 00:00: 00 Yes [id number] 2{spray } Use 2 Sprays in each nostril daily. [facility] fluticasone propionate (FLONASE ALLERGY RELIEF) 50 mcg/actuati on nasal spray 2020-11-28 00:00: 00 Yes [id number] 2{spray } Use 2 Sprays in each nostril daily. [facility] fluticasone propionate (FLONASE ALLERGY RELIEF) 50 mcg/actuati on nasal spray 11-28 00:00: 00 Yes [id number] 2{spray } Use 2 Sprays in each nostril daily. [facility] fluticasone propionate (FLONASE ALLERGY RELIEF) 50 mcg/actuati on nasal spray 11-28 00:00: 00 Yes [id number] 2{spray } Use 2 Sprays in each nostril daily. [facility] fluticasone propionate (FLONASE ALLERGY RELIEF) 50 mcg/actuati on nasal spray 11-28 00:00: 00 Yes [id number] 2{spray } Use 2 Sprays in each nostril daily. [facility] fluticasone propionate (FLONASE ALLERGY RELIEF) 50 mcg/actuati on nasal spray 11-28 00:00: 00 Yes [id number] 2{spray } Use 2 Sprays in each nostril daily. [facility] fluticasone propionate (FLONASE ALLERGY RELIEF) 50 mcg/actuati on nasal spray 11-28 00:00: 00 Yes [id number] 2{spray } Use 2 Sprays in each nostril daily. [facility] fluticasone propionate (FLONASE ALLERGY RELIEF) 50 mcg/actuati on nasal spray 11-28 00:00: 00 Yes [id number] 2{spray } Use 2 Sprays in each nostril daily. [facility] fluticasone propionate (FLONASE ALLERGY RELIEF) 50 mcg/actuati on nasal spray 0 11-28 00:00: 00 Yes [id number] 2{spray } Use 2 Sprays in each nostril daily. [facility] fluticasone propionate (FLONASE ALLERGY RELIEF) 50 mcg/actuati on nasal spray 2020-0 11-28 00:00: 00 Yes [id number] 2{spray } Use 2 Sprays in each nostril daily. [facility] fluticasone propionate (FLONASE ALLERGY RELIEF) 50 mcg/actuati on nasal spray 0 11-28 00:00: 00 Yes [id number] 2{spray } Use 2 Sprays in each nostril daily. [facility] fluticasone propionate (FLONASE ALLERGY RELIEF) 50 mcg/actuati on nasal spray 0 11-28 00:00: 00 Yes [id number] 2{spray } Use 2 Sprays in each nostril daily. [facility] fluticasone propionate (FLONASE ALLERGY RELIEF) 50 mcg/actuati on nasal spray 11-28 00:00: 00 Yes [id number] 2{spray } Use 2 Sprays in each nostril daily. [facility] fluticasone propionate (FLONASE ALLERGY RELIEF) 50 mcg/actuati on nasal spray 11-28 00:00: 00 Yes [id number] 2{spray } Use 2 Sprays in each nostril daily. [facility] fluticasone propionate (FLONASE ALLERGY RELIEF) 50 mcg/actuati on nasal spray 11-28 00:00: 00 Yes [id number] 2{spray } Use 2 Sprays in each nostril daily. [facility] fluticasone propionate (FLONASE ALLERGY RELIEF) 50 mcg/actuati on nasal spray 11-28 00:00: 00 Yes [id number] 2{spray } Use 2 Sprays in each nostril daily. [facility] fluticasone propionate (FLONASE ALLERGY RELIEF) 50 mcg/actuati on nasal spray 2020-11-28 00:00: 00 Yes [id number] 2{spray } Use 2 Sprays in each nostril daily. [facility] fluticasone propionate (FLONASE ALLERGY RELIEF) 50 mcg/actuati on nasal spray 0 11-28 00:00: 00 Yes [id number] 2{spray } Use 2 Sprays in each nostril daily. [facility] fluticasone propionate (FLONASE ALLERGY RELIEF) 50 mcg/actuati on nasal spray 2020-0 11-28 00:00: 00 Yes [id number] 2{spray } Use 2 Sprays in each nostril daily. [facility] fluticasone propionate (FLONASE ALLERGY RELIEF) 50 mcg/actuati on nasal spray 0 11-28 00:00: 00 Yes [id number] 2{spray } Use 2 Sprays in each nostril daily. [facility] fluticasone propionate (FLONASE ALLERGY RELIEF) 50 mcg/actuati on nasal spray 11-28 00:00: 00 Yes [id number] 2{spray } Use 2 Sprays in each nostril daily. [facility] fluticasone propionate (FLONASE ALLERGY RELIEF) 50 mcg/actuati on nasal spray 11-28 00:00: 00 Yes [id number] 2{spray } Use 2 Sprays in each nostril daily. [facility] fluticasone propionate (FLONASE ALLERGY RELIEF) 50 mcg/actuati on nasal spray 11-28 00:00: 00 Yes [id number] 2{spray } Use 2 Sprays in each nostril daily. [facility] fluticasone propionate (FLONASE ALLERGY RELIEF) 50 mcg/actuati on nasal spray 11-28 00:00: 00 Yes [id number] 2{spray } Use 2 Sprays in each nostril daily. [facility] fluticasone propionate (FLONASE ALLERGY RELIEF) 50 mcg/actuati on nasal spray 11-28 00:00: 00 Yes [id number] 2{spray } Use 2 Sprays in each nostril daily. [facility] fluticasone propionate (FLONASE ALLERGY RELIEF) 50 mcg/actuati on nasal spray 2020-0 11-28 00:00: 00 Yes [id number] 2{spray } Use 2 Sprays in each nostril daily. [facility] fluticasone propionate (FLONASE ALLERGY RELIEF) 50 mcg/actuati on nasal spray 2020-0 11-28 00:00: 00 Yes [id number] 2{spray } Use 2 Sprays in each nostril daily. [facility] fluticasone propionate (FLONASE ALLERGY RELIEF) 50 mcg/actuati on nasal spray 0 11-28 00:00: 00 Yes [id number] 2{spray } Use 2 Sprays in each nostril daily. [facility] fluticasone propionate (FLONASE ALLERGY RELIEF) 50 mcg/actuati on nasal spray 0 11-28 00:00: 00 Yes [id number] 2{spray } Use 2 Sprays in each nostril daily. [facility] fluticasone propionate (FLONASE ALLERGY RELIEF) 50 mcg/actuati on nasal spray 0 11-28 00:00: 00 Yes [id number] 2{spray } Use 2 Sprays in each nostril daily. [facility] fluticasone propionate (FLONASE ALLERGY RELIEF) 50 mcg/actuati on nasal spray 11-28 00:00: 00 Yes [id number] 2{spray } Use 2 Sprays in each nostril daily. [facility] fluticasone propionate (FLONASE ALLERGY RELIEF) 50 mcg/actuati on nasal spray 11-28 00:00: 00 Yes [id number] 2{spray } Use 2 Sprays in each nostril daily. [facility] fluticasone propionate (FLONASE ALLERGY RELIEF) 50 mcg/actuati on nasal spray 11-28 00:00: 00 Yes [id number] 2{spray } Use 2 Sprays in each nostril daily. [facility] fluticasone propionate (FLONASE ALLERGY RELIEF) 50 mcg/actuati on nasal spray 2020-0 11-28 00:00: 00 Yes [id number] 2{spray } Use 2 Sprays in each nostril daily. [facility] fluticasone propionate (FLONASE ALLERGY RELIEF) 50 mcg/actuati on nasal spray 2020-0 11-28 00:00: 00 Yes [id number] 2{spray } Use 2 Sprays in each nostril daily. [facility] fluticasone propionate (FLONASE ALLERGY RELIEF) 50 mcg/actuati on nasal spray 11-28 00:00: 00 Yes [id number] 2{spray } Use 2 Sprays in each nostril daily. [facility] fluticasone propionate (FLONASE ALLERGY RELIEF) 50 mcg/actuati on nasal spray 11-28 00:00: 00 Yes [id number] 2{spray } Use 2 Sprays in each nostril daily. [facility] fluticasone propionate (FLONASE ALLERGY RELIEF) 50 mcg/actuati on nasal spray 11-28 00:00: 00 Yes [id number] 2{spray } Use 2 Sprays in each nostril daily. [facility] fluticasone propionate (FLONASE ALLERGY RELIEF) 50 mcg/actuati on nasal spray 11-28 00:00: 00 Yes [id number] 2{spray } Use 2 Sprays in each nostril daily. [facility] fluticasone propionate (FLONASE ALLERGY RELIEF) 50 mcg/actuati on nasal spray 11-28 00:00: 00 Yes [id number] 2{spray } Use 2 Sprays in each nostril daily. [facility] fluticasone propionate (FLONASE ALLERGY RELIEF) 50 mcg/actuati on nasal spray 11-28 00:00: 00 Yes [id number] 2{spray } Use 2 Sprays in each nostril daily. [facility] fluticasone propionate (FLONASE ALLERGY RELIEF) 50 mcg/actuati on nasal spray 11-28 00:00: 00 Yes [id number] 2{spray } Use 2 Sprays in each nostril daily. [facility] fluticasone propionate (FLONASE ALLERGY RELIEF) 50 mcg/actuati on nasal spray 11-28 00:00: 00 Yes [id number] 2{spray } Use 2 Sprays in each nostril daily. [facility] fluticasone propionate (FLONASE ALLERGY RELIEF) 50 mcg/actuati on nasal spray 11-28 00:00: 00 Yes [id number] 2{spray } Use 2 Sprays in each nostril daily. [facility] fluticasone propionate (FLONASE ALLERGY RELIEF) 50 mcg/actuati on nasal spray 11-28 00:00: 00 Yes [id number] 2{spray } Use 2 Sprays in each nostril daily. [facility] fluticasone propionate (FLONASE ALLERGY RELIEF) 50 mcg/actuati on nasal spray 0 11-28 00:00: 00 Yes [id number] 2{spray } Use 2 Sprays in each nostril daily. [facility] fluticasone propionate (FLONASE ALLERGY RELIEF) 50 mcg/actuati on nasal spray 11-28 00:00: 00 Yes [id number] 2{spray } Use 2 Sprays in each nostril daily. [facility] fluticasone propionate (FLONASE ALLERGY RELIEF) 50 mcg/actuati on nasal spray 11-28 00:00: 00 Yes [id number] 2{spray } Use 2 Sprays in each nostril daily. [facility] fluticasone propionate (FLONASE ALLERGY RELIEF) 50 mcg/actuati on nasal spray 11-28 00:00: 00 Yes [id number] 2{spray } Use 2 Sprays in each nostril daily. [facility] fluticasone propionate (FLONASE ALLERGY RELIEF) 50 mcg/actuati on nasal spray 11-28 00:00: 00 Yes [id number] 2{spray } Use 2 Sprays in each nostril daily. [facility] fluticasone propionate (FLONASE ALLERGY RELIEF) 50 mcg/actuati on nasal spray 11-28 00:00: 00 Yes [id number] 2{spray } Use 2 Sprays in each nostril daily. [facility] fluticasone propionate (FLONASE ALLERGY RELIEF) 50 mcg/actuati on nasal spray 0 11-28 00:00: 00 Yes [id number] 2{spray } Use 2 Sprays in each nostril daily. [facility] fluticasone propionate (FLONASE ALLERGY RELIEF) 50 mcg/actuati on nasal spray 11-28 00:00: 00 Yes [id number] 2{spray } Use 2 Sprays in each nostril daily. [facility] fluticasone propionate (FLONASE ALLERGY RELIEF) 50 mcg/actuati on nasal spray 0 11-28 00:00: 00 Yes [id number] 2{spray } Use 2 Sprays in each nostril daily. [facility] fluticasone propionate (FLONASE ALLERGY RELIEF) 50 mcg/actuati on nasal spray 11-28 00:00: 00 Yes [id number] 2{spray } Use 2 Sprays in each nostril daily. [facility] fluticasone propionate (FLONASE ALLERGY RELIEF) 50 mcg/actuati on nasal spray 11-28 00:00: 00 Yes [id number] 2{spray } Use 2 Sprays in each nostril daily. [facility] fluticasone propionate (FLONASE ALLERGY RELIEF) 50 mcg/actuati on nasal spray 11-28 00:00: 00 Yes [id number] 2{spray } Use 2 Sprays in each nostril daily. [facility] fluticasone propionate (FLONASE ALLERGY RELIEF) 50 mcg/actuati on nasal spray 11-28 00:00: 00 Yes [id number] 2{spray } Use 2 Sprays in each nostril daily. [facility] fluticasone propionate (FLONASE ALLERGY RELIEF) 50 mcg/actuati on nasal spray 11-28 00:00: 00 Yes [id number] 2{spray } Use 2 Sprays in each nostril daily. [facility] fluticasone propionate (FLONASE ALLERGY RELIEF) 50 mcg/actuati on nasal spray 0 11-28 00:00: 00 Yes [id number] 2{spray } Use 2 Sprays in each nostril daily. [facility] fluticasone propionate (FLONASE ALLERGY RELIEF) 50 mcg/actuati on nasal spray 11-28 00:00: 00 Yes [id number] 2{spray } Use 2 Sprays in each nostril daily. [facility] fluticasone propionate (FLONASE ALLERGY RELIEF) 50 mcg/actuati on nasal spray 11-28 00:00: 00 Yes [id number] 2{spray } Use 2 Sprays in each nostril daily. [facility] fluticasone propionate (FLONASE ALLERGY RELIEF) 50 mcg/actuati on nasal spray 11-28 00:00: 00 Yes [id number] 2{spray } Use 2 Sprays in each nostril daily. [facility] fluticasone propionate (FLONASE ALLERGY RELIEF) 50 mcg/actuati on nasal spray 11-28 00:00: 00 Yes [id number] 2{spray } Use 2 Sprays in each nostril daily. [facility] fluticasone propionate (FLONASE ALLERGY RELIEF) 50 mcg/actuati on nasal spray 11-28 00:00: 00 Yes [id number] 2{spray } Use 2 Sprays in each nostril daily. [facility] fluticasone propionate (FLONASE ALLERGY RELIEF) 50 mcg/actuati on nasal spray 11-28 00:00: 00 Yes [id number] 2{spray } Use 2 Sprays in each nostril daily. [facility] fluticasone propionate (FLONASE ALLERGY RELIEF) 50 mcg/actuati on nasal spray 11-28 00:00: 00 Yes [id number] 2{spray } Use 2 Sprays in each nostril daily. [facility] fluticasone propionate (FLONASE ALLERGY RELIEF) 50 mcg/actuati on nasal spray 11-28 00:00: 00 Yes [id number] 2{spray } Use 2 Sprays in each nostril daily. [facility] fluticasone propionate (FLONASE ALLERGY RELIEF) 50 mcg/actuati on nasal spray 0 11-28 00:00: 00 Yes [id number] 2{spray } Use 2 Sprays in each nostril daily. [facility] fluticasone propionate (FLONASE ALLERGY RELIEF) 50 mcg/actuati on nasal spray 11-28 00:00: 00 Yes [id number] 2{spray } Use 2 Sprays in each nostril daily. [facility] fluticasone propionate (FLONASE ALLERGY RELIEF) 50 mcg/actuati on nasal spray 11-28 00:00: 00 Yes [id number] 2{spray } Use 2 Sprays in each nostril daily. [facility] fluticasone propionate (FLONASE ALLERGY RELIEF) 50 mcg/actuati on nasal spray 11-28 00:00: 00 Yes [id number] 2{spray } Use 2 Sprays in each nostril daily. [facility] fluticasone propionate (FLONASE ALLERGY RELIEF) 50 mcg/actuati on nasal spray 11-28 00:00: 00 Yes [id number] 2{spray } Use 2 Sprays in each nostril daily. [facility] fluticasone propionate (FLONASE ALLERGY RELIEF) 50 mcg/actuati on nasal spray 11-28 00:00: 00 Yes [id number] 2{spray } Use 2 Sprays in each nostril daily. [facility] fluticasone propionate (FLONASE ALLERGY RELIEF) 50 mcg/actuati on nasal spray 11-28 00:00: 00 Yes [id number] 2{spray } Use 2 Sprays in each nostril daily. [facility] fluticasone propionate (FLONASE ALLERGY RELIEF) 50 mcg/actuati on nasal spray 11-28 00:00: 00 Yes [id number] 2{spray } Use 2 Sprays in each nostril daily. [facility] fluticasone propionate (FLONASE ALLERGY RELIEF) 50 mcg/actuati on nasal spray 0 11-28 00:00: 00 Yes [id number] 2{spray } Use 2 Sprays in each nostril daily. [facility] fluticasone propionate (FLONASE ALLERGY RELIEF) 50 mcg/actuati on nasal spray 11-28 00:00: 00 Yes [id number] 2{spray } Use 2 Sprays in each nostril daily. [facility] fluticasone propionate (FLONASE ALLERGY RELIEF) 50 mcg/actuati on nasal spray 2020-0 11-28 00:00: 00 Yes [id number] 2{spray } Use 2 Sprays in each nostril daily. [facility] fluticasone propionate (FLONASE ALLERGY RELIEF) 50 mcg/actuati on nasal spray 2020-0 11-28 00:00: 00 Yes [id number] 2{spray } Use 2 Sprays in each nostril daily. [facility] fluticasone propionate (FLONASE ALLERGY RELIEF) 50 mcg/actuati on nasal spray 2020-0 11-28 00:00: 00 Yes [id number] 2{spray } Use 2 Sprays in each nostril daily. [facility] fluticasone propionate (FLONASE ALLERGY RELIEF) 50 mcg/actuati on nasal spray 0 11-28 00:00: 00 Yes [id number] 2{spray } Use 2 Sprays in each nostril daily. [facility] fluticasone propionate (FLONASE ALLERGY RELIEF) 50 mcg/actuati on nasal spray 2020-0 11-28 00:00: 00 Yes [id number] 2{spray } Use 2 Sprays in each nostril daily. [facility] fluticasone propionate (FLONASE ALLERGY RELIEF) 50 mcg/actuati on nasal spray 2020-0 11-28 00:00: 00 Yes [id number] 2{spray } Use 2 Sprays in each nostril daily. [facility] fluticasone propionate (FLONASE ALLERGY RELIEF) 50 mcg/actuati on nasal spray 2020-0 11-28 00:00: 00 Yes [id number] 2{spray } Use 2 Sprays in each nostril daily. [facility] fluticasone propionate (FLONASE ALLERGY RELIEF) 50 mcg/actuati on nasal spray 2020-0 11-28 00:00: 00 Yes [id number] 2{spray } Use 2 Sprays in each nostril daily. [facility] fluticasone propionate (FLONASE ALLERGY RELIEF) 50 mcg/actuati on nasal spray 11-28 00:00: 00 Yes [id number] 2{spray } Use 2 Sprays in each nostril daily. [facility] fluticasone propionate (FLONASE ALLERGY RELIEF) 50 mcg/actuati on nasal spray 11-28 00:00: 00 Yes [id number] 2{spray } Use 2 Sprays in each nostril daily. [facility] fluticasone propionate (FLONASE ALLERGY RELIEF) 50 mcg/actuati on nasal spray 11-28 00:00: 00 Yes [id number] 2{spray } Use 2 Sprays in each nostril daily. [facility] fluticasone propionate (FLONASE ALLERGY RELIEF) 50 mcg/actuati on nasal spray 11-28 00:00: 00 Yes [id number] 2{spray } Use 2 Sprays in each nostril daily. [facility] fluticasone propionate (FLONASE ALLERGY RELIEF) 50 mcg/actuati on nasal spray 11-28 00:00: 00 Yes [id number] 2{spray } Use 2 Sprays in each nostril daily. [facility] fluticasone propionate (FLONASE ALLERGY RELIEF) 50 mcg/actuati on nasal spray 11-28 00:00: 00 Yes [id number] 2{spray } Use 2 Sprays in each nostril daily. [facility] fluticasone propionate (FLONASE ALLERGY RELIEF) 50 mcg/actuati on nasal spray 11-28 00:00: 00 Yes [id number] 2{spray } Use 2 Sprays in each nostril daily. [facility] fluticasone propionate (FLONASE ALLERGY RELIEF) 50 mcg/actuati on nasal spray 11-28 00:00: 00 Yes [id number] 2{spray } Use 2 Sprays in each nostril daily. [facility] fluticasone propionate (FLONASE ALLERGY RELIEF) 50 mcg/actuati on nasal spray 11-28 00:00: 00 Yes [id number] 2{spray } Use 2 Sprays in each nostril daily. [facility] fluticasone propionate (FLONASE ALLERGY RELIEF) 50 mcg/actuati on nasal spray 0 11-28 00:00: 00 Yes [id number] 2{spray } Use 2 Sprays in each nostril daily. [facility] fluticasone propionate (FLONASE ALLERGY RELIEF) 50 mcg/actuati on nasal spray 2020-0 11-28 00:00: 00 Yes [id number] 2{spray } Use 2 Sprays in each nostril daily. [facility] fluticasone propionate (FLONASE ALLERGY RELIEF) 50 mcg/actuati on nasal spray 11-28 00:00: 00 Yes [id number] 2{spray } Use 2 Sprays in each nostril daily. [facility] fluticasone propionate (FLONASE ALLERGY RELIEF) 50 mcg/actuati on nasal spray 11-28 00:00: 00 Yes [id number] 2{spray } Use 2 Sprays in each nostril daily. [facility] fluticasone propionate (FLONASE ALLERGY RELIEF) 50 mcg/actuati on nasal spray 11-28 00:00: 00 Yes [id number] 2{spray } Use 2 Sprays in each nostril daily. [facility] fluticasone propionate (FLONASE ALLERGY RELIEF) 50 mcg/actuati on nasal spray 11-28 00:00: 00 Yes [id number] 2{spray } Use 2 Sprays in each nostril daily. [facility] fluticasone propionate (FLONASE ALLERGY RELIEF) 50 mcg/actuati on nasal spray 0 11-28 00:00: 00 Yes [id number] 2{spray } Use 2 Sprays in each nostril daily. [facility] fluticasone propionate (FLONASE ALLERGY RELIEF) 50 mcg/actuati on nasal spray 2020-0 11-28 00:00: 00 Yes [id number] 2{spray } Use 2 Sprays in each nostril daily. [facility] fluticasone propionate (FLONASE ALLERGY RELIEF) 50 mcg/actuati on nasal spray 11-28 00:00: 00 Yes [id number] 2{spray } Use 2 Sprays in each nostril daily. [facility] fluticasone propionate (FLONASE ALLERGY RELIEF) 50 mcg/actuati on nasal spray 11-28 00:00: 00 Yes [id number] 2{spray } Use 2 Sprays in each nostril daily. [facility] fluticasone propionate (FLONASE ALLERGY RELIEF) 50 mcg/actuati on nasal spray 11-28 00:00: 00 05-21 00:00 :00 No [id number] 2{spray } Use 2 Sprays in each nostril daily. [facility] blood sugar diagnostic strip 2020-0 9-10 00:00: 00 Yes [id number] E11.9. Check blood sugar BID (Accu-Chec k Brand) [facility] 30 gauge Misc 2020-0 9-10 00:00: 00 Yes [id number] E11.9. Check blood sugar BID (Accu -Check Brand) [facility] blood sugar diagnostic strip 2020-0 9-10 00:00: 00 Yes [id number] E11.9. Check blood sugar BID (Accu-Chec k Brand) [facility] 30 gauge Misc 2020-0 9-10 00:00: 00 Yes [id number] E11.9. Check blood sugar BID (Accu -Check Brand) [facility] blood sugar diagnostic strip 2020-0 9-10 00:00: 00 Yes [id number] E11.9. Check blood sugar BID (Accu-Chec k Brand) [facility] lancets 30 gauge Misc 2020-0 9-10 00:00: 00 Yes [id number] E11.9. Check blood sugar BID (Accu -Check Brand) [facility] blood sugar diagnostic strip 2020-0 9-10 00:00: 00 Yes [id number] E11.9. Check blood sugar BID (Accu-Chec k Brand) [facility] 30 gauge Misc 2020-0 9-10 00:00: 00 Yes [id number] E11.9. Check blood sugar BID (Accu -Check Brand) [facility] blood sugar diagnostic strip 2020-0 9-10 00:00: 00 Yes [id number] E11.9. Check blood sugar BID (Accu-Chec k Brand) [facility] lancets 30 gauge Misc 2020-0 9-10 00:00: 00 Yes [id number] E11.9. Check blood sugar BID (Accu -Check Brand) [facility] blood sugar diagnostic strip 2020-0 9-10 00:00: 00 Yes [id number] E11.9. Check blood sugar BID (Accu-Chec k Brand) [facility] lancets 30 gauge Mis 2020-0 9-10 00:00: 00 Yes [id number] E11.9. Check blood sugar BID (Accu -Check Brand) [facility] blood sugar diagnostic strip 2020-0 9-10 00:00: 00 Yes [id number] E11.9. Check blood sugar BID (Accu-Chec k Brand) [facility] lancets 30 gauge Mis 2020-0 9-10 00:00: 00 Yes [id number] E11.9. Check blood sugar BID (Accu -Check Brand) [facility] blood sugar diagnostic strip 2020-0 9-10 00:00: 00 Yes [id number] E11.9. Check blood sugar BID (Accu-Chec k Brand) [facility] lancets 30 gauge Mis 2020-0 9-10 00:00: 00 Yes [id number] E11.9. Check blood sugar BID (Accu -Check Brand) [facility] blood sugar diagnostic strip 2020-0 9-10 00:00: 00 Yes [id number] E11.9. Check blood sugar BID (Accu-Chec k Brand) [facility] lancets 30 gauge Mis 2020-0 9-10 00:00: 00 Yes [id number] E11.9. Check blood sugar BID (Accu -Check Brand) [facility] blood sugar diagnostic strip 2020-0 9-10 00:00: 00 Yes [id number] E11.9. Check blood sugar BID (Accu-Chec k Brand) [facility] lancets 30 gauge Misc 2020-0 9-10 00:00: 00 Yes [id number] E11.9. Check blood sugar BID (Accu -Check Brand) [facility] blood sugar diagnostic strip 2020-0 9-10 00:00: 00 Yes [id number] E11.9. Check blood sugar BID (Accu-Chec k Brand) [facility] lancets 30 gauge Misc 2020-0 9-10 00:00: 00 Yes [id number] E11.9. Check blood sugar BID (Accu -Check Brand) [facility] blood sugar diagnostic strip 2020-0 9-10 00:00: 00 Yes [id number] E11.9. Check blood sugar BID (Accu-Chec k Brand) [facility] lancets 30 gauge Misc 2020-0 9-10 00:00: 00 Yes [id number] E11.9. Check [facility] B[facility] ([facility] -Check [facility]) [facility]-10 00:00: 00 Yes [id number] E11.9. Check blood sugar BID (Accu-Chec k Brand) [facility] lancets 30 gauge Misc 2020-0 9-10 00:00: 00 Yes [id number] E11.9. Check blood sugar BID (Accu -Check Brand) [facility]-0 9-10 00:00: 00 Yes [id number] E11.9. Check blood sugar BID (Accu-Chec k Brand) [facility] lancets 30 gauge Misc 2020-0 9-10 00:00: 00 Yes [id number] E11.9. Check blood sugar BID (Accu -Check Brand) [facility] 2020-0 9-10 00:00: 00 Yes [id number] E11.9. Check blood sugar BID (Accu-Chec k Brand) [facility] lancets 30 gauge Misc 2020-0 9-10 00:00: 00 Yes [id number] E11.9. Check blood sugar BID (Accu -Check Brand) [facility] blood sugar diagnostic strip 2020-0 9-10 00:00: 00 Yes [id number] E11.9. Check blood sugar BID (Accu-Chec k Brand) [facility] lancets 30 gauge Misc 2020-0 9-10 00:00: 00 Yes [id number] E11.9. Check blood sugar BID (Accu -Check Brand) [facility] blood sugar diagnostic strip 2020-0 9-10 00:00: 00 Yes [id number] E11.9. Check blood sugar BID (Accu-Chec k Brand) [facility] lancets 30 gauge Misc 2020-0 9-10 00:00: 00 Yes [id number] E11.9. Check blood sugar BID (Accu -Check Brand) [facility]-0 9-10 00:00: 00 Yes [id number] E11.9. Check blood sugar BID (Accu-Chec k Brand) [facility] lancets 30 gauge Mis 2020-0 9-10 00:00: 00 Yes [id number] E11.9. Check blood sugar BID (Accu -Check Brand) [facility] 2020-0 9-10 00:00: 00 Yes [id number] E11.9. Check blood sugar BID (Accu-Chec k Brand) [facility] lancets 30 gauge Misc 2020-0 9-10 00:00: 00 Yes [id number] E11.9. Check blood sugar BID (Accu -Check Brand) [facility] 2020-0 9-10 00:00: 00 Yes [id number] E11.9. Check blood sugar BID (Accu-Chec k Brand) [facility] lancets 30 gauge Misc 2020-0 9-10 00:00: 00 Yes [id number] E11.9. Check blood sugar BID (Accu -Check Brand) [facility] 2020-0 9-10 00:00: 00 Yes [id number] E11.9. Check blood sugar BID (Accu-Chec k Brand) [facility] lancets 30 gauge Misc 2020-0 9-10 00:00: 00 Yes [id number] E11.9. Check blood sugar BID (Accu -Check Brand) [facility] blood sugar diagnostic strip 2020-0 9-10 00:00: 00 Yes [id number] E11.9. Check blood sugar BID (Accu-Chec k Brand) [facility] lancets 30 gauge Misc 2020-0 9-10 00:00: 00 Yes [id number] E11.9. Check blood sugar BID (Accu -Check Brand) [facility] blood sugar diagnostic strip 2020-0 9-10 00:00: 00 Yes [id number] E11.9. Check blood sugar BID (Accu-Chec k Brand) [facility] lancets 30 gauge Mis 2020-0 9-10 00:00: 00 Yes [id number] E11.9. Check blood sugar BID (Accu -Check Brand) [facility] blood sugar diagnostic strip 2020-0 9-10 00:00: 00 Yes [id number] E11.9. Check blood sugar BID (Accu-Chec k Brand) [facility] lancets 30 gauge Mis 2020-0 9-10 00:00: 00 Yes [id number] E11.9. Check blood sugar BID (Accu -Check Brand) [facility] blood sugar diagnostic strip 2020-0 9-10 00:00: 00 Yes [id number] E11.9. Check blood sugar BID (Accu-Chec k Brand) [facility] lancets 30 gauge Mis 2020-0 9-10 00:00: 00 Yes [id number] E11.9. Check blood sugar BID (Accu -Check Brand) [facility] blood sugar diagnostic strip 2020-0 9-10 00:00: 00 Yes [id number] E11.9. Check blood sugar BID (Accu-Chec k Brand) [facility] lancets 30 gauge Mis 2020-0 9-10 00:00: 00 Yes [id number] E11.9. Check blood sugar BID (Accu -Check Brand) [facility] blood sugar diagnostic strip 2020-0 9-10 00:00: 00 Yes [id number] E11.9. Check blood sugar BID (Accu-Chec k Brand) [facility] lancets 30 gauge Misc 2020-0 9-10 00:00: 00 Yes [id number] E11.9. Check blood sugar BID (Accu -Check Brand) [facility] blood sugar diagnostic strip 2020-0 9-10 00:00: 00 Yes [id number] E11.9. Check blood sugar BID (Accu-Chec k Brand) [facility] Mis 2020-0 9-10 00:00: 00 Yes [id number] E11.9. Check blood sugar BID (Accu -Check Brand) [facility] 2020-0 9-10 00:00: 00 Yes [id number] E11.9. Check blood sugar BID (Accu-Chec k Brand) [facility] lancets 30 gauge Mis 2020-0 9-10 00:00: 00 Yes [id number] E11.9. Check blood sugar BID (Accu -Check Brand) [facility] blood sugar diagnostic strip 2020-0 9-10 00:00: 00 Yes [id number] E11.9. Check blood sugar BID (Accu-Chec k Brand) [facility] lancets 30 gauge Mis 2020-0 9-10 00:00: 00 Yes [id number] E11.9. Check blood sugar BID (Accu -Check Brand) [facility] blood sugar diagnostic strip 2020-0 9-10 00:00: 00 Yes [id number] E11.9. Check blood sugar BID (Accu-Chec k Brand) [facility] lancets 30 gauge Mis 2020-0 9-10 00:00: 00 Yes [id number] E11.9. Check blood sugar BID (Accu -Check Brand) [facility] blood sugar diagnostic strip 2020-0 9-10 00:00: 00 Yes [id number] E11.9. Check blood sugar BID (Accu-Chec k Brand) [facility] lancets 30 gauge Misc 2020-0 9-10 00:00: 00 Yes [id number] E11.9. Check blood sugar BID (Accu -Check Brand) [facility] blood sugar diagnostic strip 2020-0 9-10 00:00: 00 Yes [id number] E11.9. Check blood sugar BID (Accu-Chec k Brand) [facility] Misc 2020-0 9-10 00:00: 00 Yes [id number] E11.9. Check blood sugar BID (Accu -Check Brand) [facility] 2020-0 9-10 00:00: 00 Yes [id number] E11.9. Check blood sugar BID (Accu-Chec k Brand) [facility] lancets 30 gauge Misc 2020-0 9-10 00:00: 00 Yes [id number] E11.9. Check blood sugar BID (Accu -Check Brand) [facility] 2020-0 9-10 00:00: 00 Yes [id number] E11.9. Check blood sugar BID (Accu-Chec k Brand) [facility] 2020-0 9-10 00:00: 00 Yes [id number] E11.9. Check blood sugar BID (Accu -Check Brand) [facility] blood sugar diagnostic strip 2020-0 9-10 00:00: 00 Yes [id number] E11.9. Check blood sugar BID (Accu-Chec k Brand) [facility] lancets 30 gauge Mis 2020-0 9-10 00:00: 00 Yes [id number] E11.9. Check blood sugar BID (Accu -Check Brand) [facility] blood sugar diagnostic strip 2020-0 9-10 00:00: 00 Yes [id number] E11.9. Check blood sugar BID (Accu-Chec k Brand) [facility] Misc 2020-0 9-10 00:00: 00 Yes [id number] E11.9. Check blood sugar BID (Accu -Check Brand) [facility] blood sugar diagnostic strip 2020-0 9-10 00:00: 00 Yes [id number] E11.9. Check blood sugar BID (Accu-Chec k Brand) [facility] Mis 2020-0 9-10 00:00: 00 Yes [id number] E11.9. Check blood sugar BID (Accu -Check Brand) [facility] blood sugar diagnostic strip 2020-0 9-10 00:00: 00 Yes [id number] E11.9. Check blood sugar BID (Accu-Chec k Brand) [facility] lancets 30 gauge Misc 2020-0 9-10 00:00: 00 Yes [id number] E11.9. Check blood sugar BID (Accu -Check Brand) [facility] 2020-0 9-10 00:00: 00 Yes [id number] E11.9. Check blood sugar BID (Accu-Chec k Brand) [facility] Mis 2020-0 9-10 00:00: 00 Yes [id number] E11.9. Check blood sugar BID (Accu -Check Brand) [facility] blood sugar diagnostic strip 2020-0 9-10 00:00: 00 Yes [id number] E11.9. Check blood sugar BID (Accu-Chec k Brand) [facility] lancets 30 gauge Mis 2020-0 9-10 00:00: 00 Yes [id number] E11.9. Check blood sugar BID (Accu -Check Brand) [facility] blood sugar diagnostic strip 2020-0 9-10 00:00: 00 Yes [id number] E11.9. Check blood sugar BID (Accu-Chec k Brand) [facility] lancets 30 gauge Mis 2020-0 9-10 00:00: 00 Yes [id number] E11.9. Check blood sugar BID (Accu -Check Brand) [facility] blood sugar diagnostic strip 2020-0 9-10 00:00: 00 Yes [id number] E11.9. Check blood sugar BID (Accu-Chec k Brand) [facility] lancets 30 gauge Misc 2020-0 9-10 00:00: 00 Yes [id number] E11.9. Check blood sugar BID (Accu -Check Brand) [facility] blood sugar diagnostic strip 2020-0 9-10 00:00: 00 Yes [id number] E11.9. Check blood sugar BID (Accu-Chec k Brand) [facility] lancets 30 gauge Misc 2020-0 9-10 00:00: 00 Yes [id number] E11.9. Check blood sugar BID (Accu -Check Brand) [facility] blood sugar diagnostic strip 2020-0 9-10 00:00: 00 Yes [id number] E11.9. Check blood sugar BID (Accu-Chec k Brand) [facility] lancets 30 gauge Mis 2020-0 9-10 00:00: 00 Yes [id number] E11.9. Check blood sugar BID (Accu -Check Brand) [facility] blood sugar diagnostic strip 2020-0 9-10 00:00: 00 Yes [id number] E11.9. Check blood sugar BID (Accu-Chec k Brand) [facility] lancets 30 gauge Mis 2020-0 9-10 00:00: 00 Yes [id number] E11.9. Check blood sugar BID (Accu -Check Brand) [facility] blood sugar diagnostic strip 2020-0 9-10 00:00: 00 Yes [id number] E11.9. Check blood sugar BID (Accu-Chec k Brand) [facility] lancets 30 gauge Misc 2020-0 9-10 00:00: 00 Yes [id number] E11.9. Check blood sugar BID (Accu -Check Brand) [facility] blood sugar diagnostic strip 2020-0 9-10 00:00: 00 Yes [id number] E11.9. Check blood sugar BID (Accu-Chec k Brand) [facility] lancets 30 gauge Misc 2020-0 9-10 00:00: 00 Yes [id number] E11.9. Check blood sugar BID (Accu -Check Brand) [facility] blood sugar diagnostic strip 2020-0 9-10 00:00: 00 Yes [id number] E11.9. Check blood sugar BID (Accu-Chec k Brand) [facility] lancets 30 gauge Misc 2020-0 9-10 00:00: 00 Yes [id number] E11.9. Check blood sugar BID (Accu -Check Brand) [facility] blood sugar diagnostic strip 2020-0 9-10 00:00: 00 Yes [id number] E11.9. Check blood sugar BID (Accu-Chec k Brand) [facility] lancets 30 gauge Mis 2020-0 9-10 00:00: 00 Yes [id number] E11.9. Check blood sugar BID (Accu -Check Brand) [facility] blood sugar diagnostic strip 2020-0 9-10 00:00: 00 Yes [id number] E11.9. Check blood sugar BID (Accu-Chec k Brand) [facility] lancets 30 gauge Mis 2020-0 9-10 00:00: 00 Yes [id number] E11.9. Check blood sugar BID (Accu -Check Brand) [facility] blood sugar diagnostic strip 2020-0 9-10 00:00: 00 Yes [id number] E11.9. Check blood sugar BID (Accu-Chec k Brand) [facility] lancets 30 gauge [facility] 2020-0 9-10 00:00: 00 Yes [id number] E11.9. Check blood sugar BID (Accu -Check Brand) [facility] blood sugar diagnostic strip 2020-0 9-10 00:00: 00 Yes [id number] E11.9. Check blood sugar BID (Accu-Chec k Brand) [facility] lancets 30 gauge Mis 2020-0 9-10 00:00: 00 Yes [id number] E11.9. Check blood sugar BID (Accu -Check Brand) [facility] blood sugar diagnostic strip 2020-0 9-10 00:00: 00 Yes [id number] E11.9. Check blood sugar BID (Accu-Chec k Brand) [facility] lancets 30 gauge Mis 2020-0 9-10 00:00: 00 Yes [id number] E11.9. Check blood sugar BID (Accu -Check Brand) [facility] blood sugar diagnostic strip 2020-0 9-10 00:00: 00 Yes [id number] E11.9. Check blood sugar BID (Accu-Chec k Brand) [facility] lancets 30 gauge Mis 2020-0 9-10 00:00: 00 Yes [id number] E11.9. Check blood sugar BID (Accu -Check Brand) [facility] blood sugar diagnostic strip 2020-0 9-10 00:00: 00 Yes [id number] E11.9. Check blood sugar BID (Accu-Chec k Brand) [facility] lancets 30 gauge Misc 2020-0 9-10 00:00: 00 Yes [id number] E11.9. Check blood sugar BID (Accu -Check Brand) [facility] blood sugar diagnostic strip 2020-0 9-10 00:00: 00 Yes [id number] E11.9. Check blood sugar BID (Accu-Chec k Brand) [facility] lancets 30 gauge Mis 2020-0 9-10 00:00: 00 Yes [id number] E11.9. Check blood sugar BID (Accu -Check Brand) [facility] blood sugar diagnostic strip 2020-0 9-10 00:00: 00 Yes [id number] E11.9. Check blood sugar BID (Accu-Chec k Brand) [facility] lancets 30 gauge Mis 2020-0 9-10 00:00: 00 Yes [id number] E11.9. Check blood sugar BID (Accu -Check Brand) [facility] blood sugar diagnostic strip 2020-0 9-10 00:00: 00 Yes [id number] E11.9. Check blood sugar BID (Accu-Chec k Brand) [facility] lancets 30 gauge Misc 2020-0 9-10 00:00: 00 Yes [id number] E11.9. Check blood sugar BID (Accu -Check Brand) [facility] blood sugar diagnostic strip 2020-0 9-10 00:00: 00 Yes [id number] E11.9. Check blood sugar BID (Accu-Chec k Brand) [facility] lancets 30 gauge Misc 2020-0 9-10 00:00: 00 Yes [id number] E11.9. Check [facility] 9-10 00:00: 00 Yes [id number] E11.9. Check blood sugar BID (Accu-Chec k Brand) [facility] lancets 30 gauge Misc 2020-0 9-10 00:00: 00 Yes [id number] E11.9. Check blood sugar BID ([facility] -Check [facility]) [facility]-0 9-10 00:00: 00 Yes [id number] E11.9. Check blood sugar BID (Accu-Chec k Brand) [facility] Mis 2020-0 9-10 00:00: 00 Yes [id number] E11.9. Check blood sugar BID ([facility] -[facility]) [facility] 2020-0 9-10 00:00: 00 Yes [id number] E11.9. Check blood sugar BID (Accu-Chec k Brand) [facility] lancets 30 gauge Misc 2020-0 9-10 00:00: 00 Yes [id number] E11.9. Check blood sugar BID (Accu -Check Brand) [facility] blood sugar diagnostic strip 2020-0 9-10 00:00: 00 Yes [id number] E11.9. Check blood sugar BID (Accu-Chec k Brand) [facility] lancets 30 gauge Misc 2020-0 9-10 00:00: 00 Yes [id number] E11.9. Check blood sugar BID (Accu -Check Brand) [facility] blood sugar diagnostic strip 2020-0 9-10 00:00: 00 Yes [id number] E11.9. Check blood sugar BID (Accu-Chec k Brand) [facility] lancets 30 gauge Misc 2020-0 9-10 00:00: 00 Yes [id number] E11.9. Check blood sugar BID ([facility] -Check [facility]) [facility]-0 9-10 00:00: 00 Yes [id number] E11.9. Check blood sugar BID (Accu-Chec k Brand) [facility] lancets 30 gauge Misc 2020-0 9-10 00:00: 00 Yes [id number] E11.9. Check blood sugar BID ([facility]u -Check Brand) [facility] 2020-0 9-10 00:00: 00 Yes [id number] E11.9. Check blood sugar BID (Accu-Chec k Brand) [facility] lancets 30 gauge Mis 2020-0 9-10 00:00: 00 Yes [id number] E11.9. Check blood sugar BID (Accu -Check Brand) [facility] blood sugar diagnostic strip 2020-0 9-10 00:00: 00 Yes [id number] E11.9. Check blood sugar BID (Accu-Chec k Brand) [facility] lancets 30 gauge Mis 2020-0 9-10 00:00: 00 Yes [id number] E11.9. Check blood sugar BID (Accu -Check Brand) [facility] blood sugar diagnostic strip 2020-0 9-10 00:00: 00 Yes [id number] E11.9. Check blood sugar BID (Accu-Chec k Brand) [facility] lancets 30 gauge Mis 2020-0 9-10 00:00: 00 Yes [id number] E11.9. Check blood sugar BID (Accu -Check Brand) [facility] blood sugar diagnostic strip 2020-0 9-10 00:00: 00 Yes [id number] E11.9. Check blood sugar BID (Accu-Chec k Brand) [facility] lancets 30 gauge Mis 2020-0 9-10 00:00: 00 Yes [id number] E11.9. Check blood sugar BID (Accu -Check Brand) [facility] blood sugar diagnostic strip 2020-0 9-10 00:00: 00 Yes [id number] E11.9. Check blood sugar BID (Accu-Chec k Brand) [facility] lancets 30 gauge Mis 2020-0 9-10 00:00: 00 Yes [id number] E11.9. Check blood sugar BID (Accu -Check Brand) [facility] blood sugar diagnostic strip 2020-0 9-10 00:00: 00 Yes [id number] E11.9. Check blood sugar BID (Accu-Chec k Brand) [facility] lancets 30 gauge Mis 2020-0 9-10 00:00: 00 Yes [id number] E11.9. Check blood sugar BID ([facility] -Check Brand) [facility] 2020-0 9-10 00:00: 00 Yes [id number] E11.9. Check blood sugar BID (Accu-Chec k Brand) [facility] lancets 30 gauge Misc 2020-0 9-10 00:00: 00 Yes [id number] E11.9. Check blood sugar BID (Accu -Check Brand) [facility] blood sugar diagnostic strip 2020-0 9-10 00:00: 00 Yes [id number] E11.9. Check blood sugar BID (Accu-Chec k Brand) [facility] lancets 30 gauge Mis 2020-0 9-10 00:00: 00 Yes [id number] E11.9. Check blood sugar BID ([facility]u -Check Brand) [facility] 2020-0 9-10 00:00: 00 Yes [id number] E11.9. Check blood sugar BID (Accu-Chec k Brand) [facility] lancets 30 gauge Mis 2020-0 9-10 00:00: 00 Yes [id number] E11.9. Check blood sugar BID (Accu -Check Brand) [facility] blood sugar diagnostic strip 2020-0 9-10 00:00: 00 Yes [id number] E11.9. Check blood sugar BID (Accu-Chec k Brand) [facility] lancets 30 gauge Mis 2020-0 9-10 00:00: 00 Yes [id number] E11.9. Check blood sugar BID (Accu -Check Brand) [facility] blood sugar diagnostic strip 2020-0 9-10 00:00: 00 Yes [id number] E11.9. Check blood sugar BID (Accu-Chec k Brand) [facility] lancets 30 gauge Misc 2020-0 9-10 00:00: 00 Yes [id number] E11.9. Check blood sugar BID (Accu -Check Brand) [facility] blood sugar diagnostic strip 2020-0 9-10 00:00: 00 Yes [id number] E11.9. Check blood sugar BID (Accu-Chec k Brand) [facility] lancets 30 gauge Misc 2020-0 9-10 00:00: 00 Yes [id number] E11.9. Check blood sugar BID (Accu -Check Brand) [facility] blood sugar diagnostic strip 2020-0 9-10 00:00: 00 Yes [id number] E11.9. Check blood sugar BID (Accu-Chec k Brand) [facility] lancets 30 gauge Misc 2020-0 9-10 00:00: 00 Yes [id number] E11.9. Check blood sugar BID (Accu -Check Brand) [facility] blood sugar diagnostic strip 2020-0 9-10 00:00: 00 Yes [id number] E11.9. Check blood sugar BID (Accu-Chec k Brand) [facility] lancets 30 gauge [facility] 2020-0 9-10 00:00: 00 Yes [id number] E11.9. Check blood sugar BID (Accu -Check Brand) [facility] 2020-0 9-10 00:00: 00 Yes [id number] E11.9. Check blood sugar BID (Accu-Chec k Brand) [facility] Mis 2020-0 9-10 00:00: 00 Yes [id number] E11.9. Check blood sugar BID (Accu -Check Brand) [facility] blood sugar diagnostic strip 2020-0 9-10 00:00: 00 Yes [id number] E11.9. Check blood sugar BID (Accu-Chec k Brand) [facility] lancets 30 gauge Mis 2020-0 9-10 00:00: 00 Yes [id number] E11.9. Check blood sugar BID (Accu -Check Brand) [facility] 2020-0 9-10 00:00: 00 Yes [id number] E11.9. Check blood sugar BID (Accu-Chec k Brand) [facility] gauge Misc 2020-0 9-10 00:00: 00 Yes [id number] E11.9. Check blood sugar BID (Accu -Check Brand) [facility] 2020-0 9-10 00:00: 00 Yes [id number] E11.9. Check blood sugar BID (Accu-Chec k Brand) [facility] lancets 30 gauge Misc 2020-0 9-10 00:00: 00 Yes [id number] E11.9. Check blood sugar BID (Accu -Check Brand) [facility] blood sugar diagnostic strip 2020-0 9-10 00:00: 00 Yes [id number] E11.9. Check blood sugar BID (Accu-Chec k Brand) [facility] lancets 30 gauge Mis 2020-0 9-10 00:00: 00 Yes [id number] E11.9. Check blood sugar BID (Accu -Check Brand) [facility] blood sugar diagnostic strip 2020-0 9-10 00:00: 00 Yes [id number] E11.9. Check blood sugar BID (Accu-Chec k Brand) [facility] lancets 30 gauge Mis 2020-0 9-10 00:00: 00 Yes [id number] E11.9. Check blood sugar BID (Accu -Check Brand) [facility] blood sugar diagnostic strip 2020-0 9-10 00:00: 00 Yes [id number] E11.9. Check blood sugar BID (Accu-Chec k Brand) [facility] lancets 30 gauge Mis 2020-0 9-10 00:00: 00 Yes [id number] E11.9. Check blood sugar BID (Accu -Check Brand) [facility] blood sugar diagnostic strip 2020-0 9-10 00:00: 00 Yes [id number] E11.9. Check blood sugar BID (Accu-Chec k Brand) [facility] lancets 30 gauge Misc 2020-0 9-10 00:00: 00 Yes [id number] E11.9. Check blood sugar BID (Accu -Check Brand) [facility] blood sugar diagnostic strip 2020-0 9-10 00:00: 00 Yes [id number] E11.9. Check blood sugar BID (Accu-Chec k Brand) [facility] lancets 30 gauge Misc 2020-0 9-10 00:00: 00 Yes [id number] E11.9. Check blood sugar BID ([facility]u -Check Brand) [facility] 2020-0 9-10 00:00: 00 Yes [id number] E11.9. Check blood sugar BID (Accu-Chec k Brand) [facility] lancets 30 gauge Misc 2020-0 9-10 00:00: 00 Yes [id number] E11.9. Check blood sugar BID (Accu -Check Brand) [facility] 2020-0 9-10 00:00: 00 Yes [id number] E11.9. Check blood sugar BID (Accu-Chec k Brand) [facility] Mis 2020-0 9-10 00:00: 00 Yes [id number] E11.9. Check blood sugar BID (Accu -Check Brand) [facility] blood sugar diagnostic strip 2020-0 9-10 00:00: 00 Yes [id number] E11.9. Check blood sugar BID (Accu-Chec k Brand) [facility] lancets 30 gauge Mis 2020-0 9-10 00:00: 00 Yes [id number] E11.9. Check blood sugar BID (Accu -Check Brand) [facility] blood sugar diagnostic strip 2020-0 9-10 00:00: 00 Yes [id number] E11.9. Check blood sugar BID (Accu-Chec k Brand) [facility] lancets 30 gauge Mis 2020-0 9-10 00:00: 00 Yes [id number] E11.9. Check blood sugar BID (Accu -Check Brand) [facility] blood sugar diagnostic strip 2020-0 9-10 00:00: 00 Yes [id number] E11.9. Check blood sugar BID (Accu-Chec k Brand) [facility] lancets 30 gauge Mis 2020-0 9-10 00:00: 00 Yes [id number] E11.9. Check blood sugar BID (Accu -Check Brand) [facility] blood sugar diagnostic strip 2020-0 9-10 00:00: 00 Yes [id number] E11.9. Check blood sugar BID (Accu-Chec k Brand) [facility] Mis 2020-0 9-10 00:00: 00 Yes [id number] E11.9. Check blood sugar BID (Accu -Check Brand) [facility] blood sugar diagnostic strip 2020-0 9-10 00:00: 00 Yes [id number] E11.9. Check blood sugar BID (Accu-Chec k Brand) [facility] 2020-0 9-10 00:00: 00 Yes [id number] E11.9. Check blood sugar BID (Accu -Check Brand) [facility] 2019-0 9-10 00:00: 00 Yes [id number] E11.9. Check blood sugar BID (Accu-Chec k Brand) [facility] lancets 30 gauge [facility] 2020-0 9-10 00:00: 00 Yes [id number] E11.9. Check blood sugar BID (Accu -Check Brand) [facility] blood sugar diagnostic strip 2019-0 9-10 00:00: 00 Yes [id number] E11.9. Check blood sugar BID (Accu-Chec k Brand) [facility] lancets 30 gauge [facility] 2020-0 9-10 00:00: 00 Yes [id number] E11.9. Check blood sugar BID (Accu -Check Brand) [facility] blood sugar diagnostic strip 2019-0 9-10 00:00: 00 Yes [id number] E11.9. Check blood sugar BID (Accu-Chec k Brand) [facility] lancets 30 gauge [facility] 2020-0 9-10 00:00: 00 Yes [id number] E11.9. Check blood sugar BID (Accu -Check Brand) [facility] blood sugar diagnostic strip 2020-0 9-10 00:00: 00 Yes [id number] E11.9. Check blood sugar BID (Accu-Chec k Brand) [facility] lancets 30 gauge [facility] 2020-0 9-10 00:00: 00 Yes [id number] E11.9. Check blood sugar BID (Accu -Check Brand) [facility] blood sugar diagnostic strip 2020-0 9-10 00:00: 00 Yes [id number] E11.9. Check blood sugar BID (Accu-Chec k Brand) [facility] lancets 30 gauge Misc 2020-0 9-10 00:00: 00 Yes [id number] E11.9. Check blood sugar BID (Accu -Check Brand) [facility] 2020-0 9-10 00:00: 00 Yes [id number] E11.9. Check blood sugar BID (Accu-Chec k Brand) [facility] gauge Mis 2020-0 9-10 00:00: 00 Yes [id number] E11.9. Check blood sugar BID (Accu -Check Brand) [facility] 2020-0 9-10 00:00: 00 Yes [id number] E11.9. Check blood sugar BID (Accu-Chec k Brand) [facility] lancets 30 gauge Mis 2020-0 9-10 00:00: 00 Yes [id number] E11.9. Check blood sugar BID (Accu -Check Brand) [facility] blood sugar diagnostic strip 2020-0 9-10 00:00: 00 Yes [id number] E11.9. Check blood sugar BID (Accu-Chec k Brand) [facility] lancets 30 gauge Mis 2020-0 9-10 00:00: 00 Yes [id number] E11.9. Check blood sugar BID (Accu -Check Brand) [facility] blood sugar diagnostic strip 2020-0 9-10 00:00: 00 Yes [id number] E11.9. Check blood sugar BID (Accu-Chec k Brand) [facility] lancets 30 gauge Misc 2020-0 9-10 00:00: 00 Yes [id number] E11.9. Check blood sugar BID (Accu -Check Brand) [facility] blood sugar diagnostic strip 2020-0 9-10 00:00: 00 Yes [id number] E11.9. Check blood sugar BID (Accu-Chec k Brand) [facility] lancets 30 gauge Misc 2020-0 9-10 00:00: 00 Yes [id number] E11.9. Check blood sugar BID (Accu -Check Brand) [facility] blood sugar diagnostic strip 2020-0 9-10 00:00: 00 Yes [id number] E11.9. Check blood sugar BID (Accu-Chec k Brand) [facility] lancets 30 gauge Mis 2020-0 9-10 00:00: 00 Yes [id number] E11.9. Check blood sugar BID (Accu -Check Brand) [facility] blood sugar diagnostic strip 2020-0 9-10 00:00: 00 Yes [id number] E11.9. Check blood sugar BID (Accu-Chec k Brand) [facility] lancets 30 gauge Mis 2020-0 9-10 00:00: 00 Yes [id number] E11.9. Check blood sugar BID (Accu -Check Brand) [facility] blood sugar diagnostic strip 2020-0 9-10 00:00: 00 Yes [id number] E11.9. Check blood sugar BID (Accu-Chec k Brand) [facility] lancets 30 gauge Mis 2020-0 9-10 00:00: 00 Yes [id number] E11.9. Check blood sugar BID (Accu -Check Brand) [facility] blood sugar diagnostic strip 2020-0 9-10 00:00: 00 Yes [id number] E11.9. Check blood sugar BID (Accu-Chec k Brand) [facility] lancets 30 gauge Mis 2020-0 9-10 00:00: 00 Yes [id number] E11.9. Check blood sugar BID (Accu -Check Brand) [facility] blood sugar diagnostic strip 2020-0 9-10 00:00: 00 Yes [id number] E11.9. Check blood sugar BID (Accu-Chec k Brand) [facility] lancets 30 gauge Mis 2020-0 9-10 00:00: 00 Yes [id number] E11.9. Check blood sugar BID (Accu -Check Brand) [facility] blood sugar diagnostic strip 2020-0 9-10 00:00: 00 Yes [id number] E11.9. Check blood sugar BID (Accu-Chec k Brand) [facility] lancets 30 gauge Mis 2020-0 9-10 00:00: 00 Yes [id number] E11.9. Check blood sugar BID (Accu -Check Brand) [facility] blood sugar diagnostic strip 2020-0 9-10 00:00: 00 Yes [id number] E11.9. Check blood sugar BID (Accu-Chec k Brand) [facility] lancets 30 gauge Misc 2020-0 9-10 00:00: 00 Yes [id number] E11.9. Check blood sugar BID (Accu -Check Brand) [facility] blood sugar diagnostic strip 2020-0 9-10 00:00: 00 Yes [id number] E11.9. Check blood sugar BID (Accu-Chec k Brand) [facility] lancets 30 gauge [facility] 2020-0 9-10 00:00: 00 Yes [id number] E11.9. Check blood sugar BID (Accu -Check Brand) [facility] blood sugar diagnostic strip 2020-0 9-10 00:00: 00 Yes [id number] E11.9. Check blood sugar BID (Accu-Chec k Brand) [facility] lancets 30 gauge Mis 2020-0 9-10 00:00: 00 Yes [id number] E11.9. Check blood sugar BID (Accu -Check Brand) [facility] blood sugar diagnostic strip 2020-0 9-10 00:00: 00 Yes [id number] E11.9. Check blood sugar BID (Accu-Chec k Brand) [facility] lancets 30 gauge Mis 2020-0 9-10 00:00: 00 Yes [id number] E11.9. Check blood sugar BID (Accu -Check Brand) [facility] blood sugar diagnostic strip 2020-0 9-10 00:00: 00 Yes [id number] E11.9. Check blood sugar BID (Accu-Chec k Brand) [facility] lancets 30 gauge Mis 2020-0 9-10 00:00: 00 Yes [id number] E11.9. Check blood sugar BID (Accu -Check Brand) [facility] blood sugar diagnostic strip 2020-0 9-10 00:00: 00 Yes [id number] E11.9. Check blood sugar BID (Accu-Chec k Brand) [facility] lancets 30 gauge Misc 2020-0 9-10 00:00: 00 Yes [id number] E11.9. Check blood sugar BID (Accu -Check Brand) [facility] blood sugar diagnostic strip 2020-0 9-10 00:00: 00 Yes [id number] E11.9. Check blood sugar BID (Accu-Chec k Brand) [facility] lancets 30 gauge Mis 2020-0 9-10 00:00: 00 Yes [id number] E11.9. Check blood sugar BID (Accu -Check Brand) [facility] blood sugar diagnostic strip 2020-0 9-10 00:00: 00 Yes [id number] E11.9. Check blood sugar BID (Accu-Chec k Brand) [facility] lancets 30 gauge Mis 2020-0 9-10 00:00: 00 Yes [id number] E11.9. Check blood sugar BID (Accu -Check Brand) [facility] 2020-0 9-10 00:00: 00 Yes [id number] E11.9. Check blood sugar BID (Accu-Chec k Brand) [facility] lancets 30 gauge Mis 2020-0 9-10 00:00: 00 Yes [id number] E11.9. Check blood sugar BID (Accu -Check Brand) [facility] 2020-0 9-10 00:00: 00 Yes [id number] E11.9. Check blood sugar BID (Accu-Chec k Brand) [facility] lancets 30 gauge Misc 2020-0 9-10 00:00: 00 Yes [id number] E11.9. Check blood sugar BID (Accu -Check Brand) [facility] 2020-0 9-10 00:00: 00 Yes [id number] E11.9. Check blood sugar BID (Accu-Chec k Brand) [facility] lancets 30 gauge Misc 2020-0 9-10 00:00: 00 Yes [id number] E11.9. Check blood sugar BID (Accu -Check Brand) [facility] 2020-0 9-10 00:00: 00 Yes [id number] E11.9. Check blood sugar BID (Accu-Chec k Brand) [facility] lancets 30 gauge Misc 2020-0 9-10 00:00: 00 Yes [id number] E11.9. Check blood sugar BID (Accu -Check Brand) [facility] 2020-0 9-10 00:00: 00 Yes [id number] E11.9. Check blood sugar BID (Accu-Chec k Brand) [facility] lancets 30 gauge Misc 2020-0 9-10 00:00: 00 Yes [id number] E11.9. Check blood sugar BID (Accu -Check Brand) [facility] blood sugar diagnostic strip 2020-0 9-10 00:00: 00 Yes [id number] E11.9. Check blood sugar BID (Accu-Chec k Brand) [facility] Mis 2020-0 9-10 00:00: 00 Yes [id number] E11.9. Check blood sugar BID (Accu -Check Brand) [facility] blood sugar diagnostic strip 2020-0 9-10 00:00: 00 Yes [id number] E11.9. Check blood sugar BID (Accu-Chec k Brand) [facility] lancets 30 gauge Misc 2020-0 9-10 00:00: 00 Yes [id number] E11.9. Check blood sugar BID (Accu -Check Brand) [facility] 2020-0 9-10 00:00: 00 Yes [id number] E11.9. Check blood sugar BID (Accu-Chec k Brand) [facility] Misc 2020-0 9-10 00:00: 00 Yes [id number] E11.9. Check blood sugar BID (Accu -Check Brand) [facility] blood sugar diagnostic strip 2020-0 9-10 00:00: 00 Yes [id number] E11.9. Check blood sugar BID (Accu-Chec k Brand) [facility] lancets 30 gauge Misc 2020-0 9-10 00:00: 00 Yes [id number] E11.9. Check blood sugar BID (Accu -Check Brand) [facility] blood sugar diagnostic strip 2020-0 9-10 00:00: 00 Yes [id number] E11.9. Check blood sugar BID (Accu-Chec k Brand) [facility] lancets 30 gauge Misc 2020-0 9-10 00:00: 00 Yes [id number] E11.9. Check blood sugar BID (Accu -Check Brand) [facility] blood sugar diagnostic strip 2020-0 9-10 00:00: 00 Yes [id number] E11.9. Check blood sugar BID (Accu-Chec k Brand) [facility] lancets 30 gauge Mis 2020-0 9-10 00:00: 00 Yes [id number] E11.9. Check blood sugar BID (Accu -Check Brand) [facility] blood sugar diagnostic strip 2020-0 9-10 00:00: 00 Yes [id number] E11.9. Check blood sugar BID (Accu-Chec k Brand) [facility] lancets 30 gauge Mis 2020-0 9-10 00:00: 00 Yes [id number] E11.9. Check blood sugar BID (Accu -Check Brand) [facility] blood sugar diagnostic strip 2020-0 9-10 00:00: 00 Yes [id number] E11.9. Check blood sugar BID (Accu-Chec k Brand) [facility] [place] lancets 30 gauge Mis 2020-0 9-10 00:00: 00 Yes [id number] E11.9. Check blood sugar BID (Accu -Check Brand) [facility] [place] blood sugar diagnostic strip 2020-0 9-10 00:00: 00 Yes [id number] E11.9. Check blood sugar BID (Accu-Chec k Brand) [facility] [place] lancets 30 gauge Mis 2020-0 9-10 00:00: 00 Yes [id number] E11.9. Check blood sugar BID (Accu -Check Brand) [facility] [place] blood sugar diagnostic strip 2020-0 9-10 00:00: 00 Yes [id number] E11.9. Check blood sugar BID (Accu-Chec k Brand) [facility] lancets 30 gauge Misc 2020-0 9-10 00:00: 00 Yes [id number] E11.9. Check blood sugar BID (Accu -Check Brand) [facility] blood sugar diagnostic strip 2020-0 9-10 00:00: 00 Yes [id number] E11.9. Check blood sugar BID (Accu-Chec k Brand) [facility] lancets 30 gauge Misc 2020-0 9-10 00:00: 00 Yes [id number] E11.9. Check blood sugar BID (Accu -Check Brand) [facility] blood sugar diagnostic strip 2020-0 9-10 00:00: 00 Yes [id number] E11.9. Check blood sugar BID (Accu-Chec k Brand) [facility] lancets 30 gauge Misc 2020-0 9-10 00:00: 00 Yes [id number] E11.9. [facility]-10 00:00: 00 Yes [id number] E11.9. Check blood sugar BID (Accu-Chec k Brand) [facility] lancets 30 gauge Misc 2020-0 9-10 00:00: 00 Yes [id number] E11.9. Check blood sugar BID ([facility]) [facility]-0 9-10 00:00: 00 Yes [id number] E11.9. Check blood sugar BID (Accu-Chec k Brand) [facility] lancets 30 gauge Misc 2020-0 9-10 00:00: 00 Yes [id number] E11.9. Check blood sugar BID ([facility]Check [facility]) [facility] 2020-0 9-10 00:00: 00 Yes [id number] E11.9. Check blood sugar BID (Accu-Chec k Brand) [facility] lancets 30 gauge Misc 2020-0 9-10 00:00: 00 Yes [id number] E11.9. Check blood sugar BID (Accu -Check Brand) [facility] blood sugar diagnostic strip 2020-0 9-10 00:00: 00 Yes [id number] E11.9. Check blood sugar BID (Accu-Chec k Brand) [facility] lancets 30 gauge Misc 2020-0 9-10 00:00: 00 Yes [id number] E11.9. Check blood sugar BID (Accu -Check Brand) [facility] blood sugar diagnostic strip 2020-0 9-10 00:00: 00 Yes [id number] E11.9. Check blood sugar BID (Accu-Chec k Brand) [facility] lancets 30 gauge Misc 2020-0 9-10 00:00: 00 Yes [id number] E11.9. Check blood sugar BID ([facility]) [facility] 2020-0 9-10 00:00: 00 Yes [id number] E11.9. Check blood sugar BID (Accu-Chec k Brand) [facility] lancets 30 gauge Mis 2020-0 9-10 00:00: 00 Yes [id number] E11.9. Check blood sugar BID ([facility] -Check [facility]) [facility] 2020-0 9-10 00:00: 00 Yes [id number] E11.9. Check blood sugar BID (Accu-Chec k Brand) [facility] [place] lancets 30 gauge Misc 2020-0 9-10 00:00: 00 Yes [id number] E11.9. Check blood sugar BID ([facility] -Check Brand) [facility] 2020-0 9-10 00:00: 00 Yes [id number] E11.9. Check blood sugar BID (Accu-Chec k Brand) [facility] lancets 30 gauge Misc 2020-0 9-10 00:00: 00 Yes [id number] E11.9. Check blood sugar BID ([facility]) [facility] 2020-0 9-10 00:00: 00 Yes [id number] E11.9. Check blood sugar BID (Accu-Chec k Brand) [facility] lancets 30 gauge Misc 2020-0 9-10 00:00: 00 Yes [id number] E11.9. Check blood sugar BID (Accu -Check Brand) [facility] blood sugar diagnostic strip 2020-0 9-10 00:00: 00 Yes [id number] E11.9. Check blood sugar BID (Accu-Chec k Brand) [facility] [place] lancets 30 gauge Misc 2020-0 9-10 00:00: 00 Yes [id number] E11.9. Check blood sugar BID (Accu -Check Brand) [facility] [place] blood sugar diagnostic strip 2020-0 9-10 00:00: 00 Yes [id number] E11.9. Check blood sugar BID (Accu-Chec k Brand) [facility] [place] lancets 30 gauge Mis 2020-0 9-10 00:00: 00 Yes [id number] E11.9. Check blood sugar BID (Accu -Check Brand) [facility] [place] blood sugar diagnostic strip 2020-0 9-10 00:00: 00 Yes [id number] E11.9. Check blood sugar BID (Accu-Chec k Brand) [facility] [place] lancets 30 gauge Mis 2020-0 9-10 00:00: 00 Yes [id number] E11.9. Check blood sugar BID (Accu -Check Brand) [facility] [place] blood sugar diagnostic strip 2020-0 9-10 00:00: 00 Yes [id number] E11.9. Check blood sugar BID (Accu-Chec k Brand) [facility] [place] lancets 30 gauge Mis 2020-0 9-10 00:00: 00 Yes [id number] E11.9. Check blood sugar BID (Accu -Check Brand) [facility] [place] blood sugar diagnostic strip 2020-0 9-10 00:00: 00 Yes [id number] E11.9. Check blood sugar BID (Accu-Chec k Brand) [facility] [place] lancets 30 gauge Mis 2020-0 9-10 00:00: 00 Yes [id number] E11.9. Check blood sugar BID (Accu -Check Brand) [facility] [place] blood sugar diagnostic strip 2020-0 9-10 00:00: 00 Yes [id number] E11.9. Check blood sugar BID (Accu-Chec k Brand) [facility] [place] lancets 30 gauge Misc 2020-0 9-10 00:00: 00 Yes [id number] E11.9. Check blood sugar BID (Accu -Check Brand) [facility] [place] blood sugar diagnostic strip 2020-0 9-10 00:00: 00 Yes [id number] E11.9. Check blood sugar BID (Acc[facility]c k Brand) [facility] 2020-0 9-10 00:00: 00 Yes [id number] E11.9. Check blood sugar BID ([facility]u -Check Brand) [facility] 2020-0 9-10 00:00: 00 Yes [id number] E11.9. Check blood sugar BID (Accu-Chec k Brand) [facility] [place] lancets 30 gauge Mis 2020-0 9-10 00:00: 00 Yes [id number] E11.9. Check blood sugar BID (Accu -Check Brand) [facility] blood sugar diagnostic strip 2020-0 9-10 00:00: 00 Yes [id number] E11.9. Check blood sugar BID (Accu-Chec k Brand) [facility] [place] lancets 30 gauge Mis 2020-0 9-10 00:00: 00 Yes [id number] E11.9. Check blood sugar BID (Accu -Check Brand) [facility] [place] blood sugar diagnostic strip 2020-0 9-10 00:00: 00 Yes [id number] E11.9. Check blood sugar BID (Accu-Chec k Brand) [facility] [place] lancets 30 gauge Mis 2020-0 9-10 00:00: 00 Yes [id number] E11.9. Check blood sugar BID (Accu -Check Brand) [facility] [place] [facility] blood sugar diagnostic strip 2020-0 9-10 00:00: 00 Yes [id number] E11.9. Check blood sugar BID (Accu-Chec k Brand) [facility] [place] lancets 30 gauge Misc 2020-0 9-10 00:00: 00 Yes [id number] E11.9. Check blood sugar BID (Accu -Check Brand) [facility] [place] blood sugar diagnostic strip 2020-0 9-10 00:00: 00 Yes [id number] E11.9. Check blood sugar BID (Accu-Chec k Brand) [facility] Misc 2020-0 9-10 00:00: 00 Yes [id number] E11.9. Check blood sugar BID ([facility]u -Check Brand) [facility] 2020-0 9-10 00:00: 00 Yes [id number] E11.9. Check blood sugar BID (Accu-Chec k Brand) [facility] lancets 30 gauge Misc 2020-0 9-10 00:00: 00 Yes [id number] E11.9. Check blood sugar BID (Accu -Check Brand) [facility] 2020-0 9-10 00:00: 00 Yes [id number] E11.9. Check blood sugar BID (Accu-Chec k Brand) [facility] 2020-0 9-10 00:00: 00 Yes [id number] E11.9. Check blood sugar BID (Accu -Check Brand) [facility] blood sugar diagnostic strip 2020-0 9-10 00:00: 00 Yes [id number] E11.9. Check blood sugar BID (Accu-Chec k Brand) [facility] [place] lancets 30 gauge Mis 2020-0 9-10 00:00: 00 Yes [id number] E11.9. Check blood sugar BID (Accu -Check Brand) [facility] [place] blood sugar diagnostic strip 2020-0 9-10 00:00: 00 Yes [id number] E11.9. Check blood sugar BID (Accu-Chec k Brand) [facility] Misc 2020-0 9-10 00:00: 00 Yes [id number] E11.9. Check blood sugar BID (Accu -Check Brand) [facility] blood sugar diagnostic strip 2020-0 9-10 00:00: 00 Yes [id number] E11.9. Check blood sugar BID (Accu-Chec k Brand) [facility] Mis 2020-0 9-10 00:00: 00 Yes [id number] E11.9. Check blood sugar BID (Accu -Check Brand) [facility] blood sugar diagnostic strip 2020-0 9-10 00:00: 00 Yes [id number] E11.9. Check blood sugar BID (Accu-Chec k Brand) [facility] [place] lancets 30 gauge Misc 2020-0 9-10 00:00: 00 Yes [id number] E11.9. Check blood sugar BID (Accu -Check Brand) [facility] 2020-0 9-10 00:00: 00 Yes [id number] E11.9. Check blood sugar BID (Accu-Chec k Brand) [facility] Mis 2020-0 9-10 00:00: 00 Yes [id number] E11.9. Check blood sugar BID (Accu -Check Brand) [facility] [place] blood sugar diagnostic strip 2020-0 9-10 00:00: 00 Yes [id number] E11.9. Check blood sugar BID (Accu-Chec k Brand) [facility] [place] lancets 30 gauge Mis 2020-0 9-10 00:00: 00 Yes [id number] E11.9. Check blood sugar BID (Accu -Check Brand) [facility] blood sugar diagnostic strip 2020-0 9-10 00:00: 00 Yes [id number] E11.9. Check blood sugar BID (Accu-Chec k Brand) [facility] [place] lancets 30 gauge Mis 2020-0 9-10 00:00: 00 Yes [id number] E11.9. Check blood sugar BID (Accu -Check Brand) [facility] [place] blood sugar diagnostic strip 2020-0 9-10 00:00: 00 Yes [id number] E11.9. Check blood sugar BID (Accu-Chec k Brand) [facility] [place] lancets 30 gauge Misc 2020-0 9-10 00:00: 00 Yes [id number] E11.9. Check blood sugar BID (Accu -Check Brand) [facility] [place] blood sugar diagnostic strip 2020-0 9-10 00:00: 00 Yes [id number] E11.9. Check blood sugar BID (Accu-Chec k Brand) [facility] [place] lancets 30 gauge Misc 2020-0 9-10 00:00: 00 Yes [id number] E11.9. Check blood sugar BID (Accu -Check Brand) [facility] [place] blood sugar diagnostic strip 2020-0 9-10 00:00: 00 Yes [id number] E11.9. Check blood sugar BID (Accu-Chec k Brand) [facility] [place] lancets 30 gauge Mis 2020-0 9-10 00:00: 00 Yes [id number] E11.9. Check blood sugar BID (Accu -Check Brand) [facility] [place] blood sugar diagnostic strip 2020-0 9-10 00:00: 00 Yes [id number] E11.9. Check blood sugar BID (Accu-Chec k Brand) [facility] [place] lancets 30 gauge Mis 2020-0 9-10 00:00: 00 Yes [id number] E11.9. Check blood sugar BID (Accu -Check Brand) [facility] [place] blood sugar diagnostic strip 2020-0 9-10 00:00: 00 Yes [id number] E11.9. Check blood sugar BID (Accu-Chec k Brand) [facility] [place] lancets 30 gauge Misc 2020-0 9-10 00:00: 00 Yes [id number] E11.9. Check blood sugar BID (Accu -Check Brand) [facility] [place] blood sugar diagnostic strip 2020-0 9-10 00:00: 00 Yes [id number] E11.9. Check blood sugar BID (Accu-Chec k Brand) [facility] [place] lancets 30 gauge Misc 2020-0 9-10 00:00: 00 Yes [id number] E11.9. Check blood sugar BID (Accu -Check Brand) [facility] [place] blood sugar diagnostic strip 2020-0 9-10 00:00: 00 Yes [id number] E11.9. Check blood sugar BID (Accu-Chec k Brand) [facility] [place] lancets 30 gauge Misc 2020-0 9-10 00:00: 00 Yes [id number] E11.9. Check blood sugar BID (Accu -Check Brand) [facility] [place] blood sugar diagnostic strip 2020-0 9-10 00:00: 00 Yes [id number] E11.9. Check blood sugar BID (Accu-Chec k Brand) [facility] [place] lancets 30 gauge Mis 2020-0 9-10 00:00: 00 Yes [id number] E11.9. Check blood sugar BID (Accu -Check Brand) [facility] [place] blood sugar diagnostic strip 2020-0 9-10 00:00: 00 Yes [id number] E11.9. Check blood sugar BID (Accu-Chec k Brand) [facility] [place] lancets 30 gauge Mis 2020-0 9-10 00:00: 00 Yes [id number] E11.9. Check blood sugar BID (Accu -Check Brand) [facility] [place] blood sugar diagnostic strip 2020-0 9-10 00:00: 00 Yes [id number] E11.9. Check blood sugar BID (Accu-Chec k Brand) [facility] [place] lancets 30 gauge [facility] 2020-0 9-10 00:00: 00 Yes [id number] E11.9. Check blood sugar BID (Accu -Check Brand) [facility] [place] blood sugar diagnostic strip 2020-0 9-10 00:00: 00 Yes [id number] E11.9. Check blood sugar BID (Accu-Chec k Brand) [facility] [place] lancets 30 gauge Mis 2020-0 9-10 00:00: 00 Yes [id number] E11.9. Check blood sugar BID (Accu -Check Brand) [facility] blood sugar diagnostic strip 2020-0 9-10 00:00: 00 Yes [id number] E11.9. Check blood sugar BID (Accu-Chec k Brand) [facility] [place] lancets 30 gauge Mis 2020-0 9-10 00:00: 00 Yes [id number] E11.9. Check blood sugar BID (Accu -Check Brand) [facility] [place] blood sugar diagnostic strip 2020-0 9-10 00:00: 00 Yes [id number] E11.9. Check blood sugar BID (Accu-Chec k Brand) [facility] lancets 30 gauge Mis 2020-0 9-10 00:00: 00 Yes [id number] E11.9. Check blood sugar BID (Accu -Check Brand) [facility] blood sugar diagnostic strip 2020-0 9-10 00:00: 00 Yes [id number] E11.9. Check blood sugar BID (Accu-Chec k Brand) [facility] lancets 30 gauge Misc 2020-0 9-10 00:00: 00 Yes [id number] E11.9. Check blood sugar BID (Accu -Check Brand) [facility] blood sugar diagnostic strip 2020-0 9-10 00:00: 00 Yes [id number] E11.9. Check blood sugar BID (Accu-Chec k Brand) [facility] lancets 30 gauge Mis 2020-0 9-10 00:00: 00 Yes [id number] E11.9. Check blood sugar BID (Accu -Check Brand) [facility] blood sugar diagnostic strip 2020-0 9-10 00:00: 00 Yes [id number] E11.9. Check blood sugar BID (Accu-Chec k Brand) [facility] lancets 30 gauge Mis 2020-0 9-10 00:00: 00 Yes [id number] E11.9. Check blood sugar BID (Accu -Check Brand) [facility] blood sugar diagnostic strip 2020-0 9-10 00:00: 00 Yes [id number] E11.9. Check blood sugar BID (Accu-Chec k Brand) [facility] lancets 30 gauge Misc 2020-0 9-10 00:00: 00 Yes [id number] E11.9. Check blood sugar BID (Accu -Check Brand) [facility] blood sugar diagnostic strip 2020-0 9-10 00:00: 00 Yes [id number] E11.9. Check blood sugar BID (Accu-Chec k Brand) [facility] lancets 30 gauge Misc 2020-0 9-10 00:00: 00 Yes [id number] E11.9. Check blood sugar BID ([facility] -Check Brand) [facility]-0 9-10 00:00: 00 Yes [id number] E11.9. Check blood sugar BID (Accu-Chec k Brand) [facility] lancets 30 gauge Misc 2020-0 9-10 00:00: 00 Yes [id number] E11.9. Check blood sugar BID (Accu -Check Brand) [facility] 2020-0 9-10 00:00: 00 Yes [id number] E11.9. Check blood sugar BID (Accu-Chec k Brand) [facility] Mis 2020-0 9-10 00:00: 00 Yes [id number] E11.9. Check blood sugar BID (Accu -Check Brand) [facility] 2020-0 9-10 00:00: 00 Yes [id number] E11.9. Check blood sugar BID (Accu-Chec k Brand) [facility] [place] lancets 30 gauge Misc 2020-0 9-10 00:00: 00 Yes [id number] E11.9. Check blood sugar BID (Accu -Check Brand) [facility] [place] blood sugar diagnostic strip 2020-0 9-10 00:00: 00 Yes [id number] E11.9. Check blood sugar BID (Accu-Chec k Brand) [facility] [place] lancets 30 gauge Misc 2020-0 9-10 00:00: 00 Yes [id number] E11.9. Check blood sugar BID (Accu -Check Brand) [facility] [place] blood sugar diagnostic strip 2020-0 9-10 00:00: 00 Yes [id number] E11.9. Check blood sugar BID (Accu-Chec k Brand) [facility] [place] lancets 30 gauge Misc 2020-0 9-10 00:00: 00 Yes [id number] E11.9. Check blood sugar BID ([facility]u -Check Brand) [facility] 2020-0 9-10 00:00: 00 Yes [id number] E11.9. Check blood sugar BID (Accu-Chec k Brand) [facility] [place] lancets 30 gauge Misc 2020-0 9-10 00:00: 00 Yes [id number] E11.9. Check blood sugar BID (Accu -Check Brand) [facility] 2020-0 9-10 00:00: 00 Yes [id number] E11.9. Check blood sugar BID (Accu-Chec k Brand) [facility] [place] lancets 30 gauge Mis 2020-0 9-10 00:00: 00 Yes [id number] E11.9. Check blood sugar BID (Accu -Check Brand) [facility] blood sugar diagnostic strip 2020-0 9-10 00:00: 00 Yes [id number] E11.9. Check blood sugar BID (Accu-Chec k Brand) [facility] [place] lancets 30 gauge Mis 2020-0 9-10 00:00: 00 Yes [id number] E11.9. Check blood sugar BID (Accu -Check Brand) [facility] [place] blood sugar diagnostic strip 2020-0 9-10 00:00: 00 Yes [id number] E11.9. Check blood sugar BID (Accu-Chec k Brand) [facility] [place] lancets 30 gauge Mis 2020-0 9-10 00:00: 00 Yes [id number] E11.9. Check blood sugar BID (Accu -Check Brand) [facility] [place] blood sugar diagnostic strip 2020-0 9-10 00:00: 00 Yes [id number] E11.9. Check blood sugar BID (Accu-Chec k Brand) [facility] [place] lancets 30 gauge Mis 2020-0 9-10 00:00: 00 Yes [id number] E11.9. Check blood sugar BID (Accu -Check Brand) [facility] blood sugar diagnostic strip 2020-0 9-10 00:00: 00 Yes [id number] E11.9. Check blood sugar BID (Accu-Chec k Brand) [facility] [place] lancets 30 gauge Mis 2020-0 9-10 00:00: 00 Yes [id number] E11.9. Check blood sugar BID (Accu -Check Brand) [facility] [place] blood sugar diagnostic strip 2020-0 9-10 00:00: 00 Yes [id number] E11.9. Check blood sugar BID (Accu-Chec k Brand) [facility] [place] lancets 30 gauge Mis 2020-0 9-10 00:00: 00 Yes [id number] E11.9. Check blood sugar BID (Accu -Check Brand) [facility] 2020-0 9-10 00:00: 00 Yes [id number] E11.9. Check blood sugar BID (Accu-Chec k Brand) [facility] lancets 30 gauge Misc 2020-0 9-10 00:00: 00 Yes [id number] E11.9. Check blood sugar BID (Accu -Check Brand) [facility] blood sugar diagnostic strip 2020-0 9-10 00:00: 00 Yes [id number] E11.9. Check blood sugar BID (Accu-Chec k Brand) [facility] lancets 30 gauge Mis 2020-0 9-10 00:00: 00 Yes [id number] E11.9. Check blood sugar BID (Accu -Check Brand) [facility] 2020-0 9-10 00:00: 00 Yes [id number] E11.9. Check blood sugar BID (Accu-Chec k Brand) [facility] [place] lancets 30 gauge Mis 2020-0 9-10 00:00: 00 Yes [id number] E11.9. Check blood sugar BID (Accu -Check Brand) [facility] blood sugar diagnostic strip 2020-0 9-10 00:00: 00 Yes [id number] E11.9. Check blood sugar BID (Accu-Chec k Brand) [facility] [place] lancets 30 gauge Mis 2020-0 9-10 00:00: 00 Yes [id number] E11.9. Check blood sugar BID (Accu -Check Brand) [facility] blood sugar diagnostic strip 2020-0 9-10 00:00: 00 Yes [id number] E11.9. Check blood sugar BID (Accu-Chec k Brand) [facility] [place] lancets 30 gauge Misc 2020-0 9-10 00:00: 00 Yes [id number] E11.9. Check blood sugar BID (Accu -Check Brand) [facility] blood sugar diagnostic strip 2020-0 9-10 00:00: 00 Yes [id number] E11.9. Check blood sugar BID (Accu-Chec k Brand) [facility] lancets 30 gauge Misc 2020-0 9-10 00:00: 00 Yes [id number] E11.9. Check blood sugar BID (Accu -Check Brand) [facility] blood sugar diagnostic strip 2020-0 9-10 00:00: 00 Yes [id number] E11.9. Check blood sugar BID (Accu-Chec k Brand) [facility] lancets 30 gauge Misc 2020-0 9-10 00:00: 00 Yes [id number] E11.9. Check blood sugar BID (Accu -Check Brand) [facility] blood sugar diagnostic strip 2020-0 9-10 00:00: 00 Yes [id number] E11.9. Check blood sugar BID (Accu-Chec k Brand) [facility] lancets 30 gauge [facility] 2020-0 9-10 00:00: 00 Yes [id number] E11.9. Check blood sugar BID (Accu -Check Brand) [facility] 2020-0 9-10 00:00: 00 Yes [id number] E11.9. Check blood sugar BID (Accu-Chec k Brand) [facility] Mis 2020-0 9-10 00:00: 00 Yes [id number] E11.9. Check blood sugar BID (Accu -Check Brand) [facility] blood sugar diagnostic strip 2020-0 9-10 00:00: 00 Yes [id number] E11.9. Check blood sugar BID (Accu-Chec k Brand) [facility] lancets 30 gauge Mis 2020-0 9-10 00:00: 00 Yes [id number] E11.9. Check blood sugar BID (Accu -Check Brand) [facility] 2020-0 9-10 00:00: 00 Yes [id number] E11.9. Check blood sugar BID (Accu-Chec k Brand) [facility] Misc 2020-0 9-10 00:00: 00 Yes [id number] E11.9. Check blood sugar BID (Accu -Check Brand) [facility] 2020-0 9-10 00:00: 00 Yes [id number] E11.9. Check blood sugar BID (Accu-Chec k Brand) [facility] lancets 30 gauge Misc 2020-0 9-10 00:00: 00 Yes [id number] E11.9. Check blood sugar BID (Accu -Check Brand) [facility] [facility] blood sugar diagnostic strip 2020-0 9-10 00:00: 00 Yes [id number] E11.9. Check blood sugar BID (Accu-Chec k Brand) [facility] lancets 30 gauge Mis 2020-0 9-10 00:00: 00 Yes [id number] E11.9. Check blood sugar BID (Accu -Check Brand) [facility] blood sugar diagnostic strip 2020-0 9-10 00:00: 00 Yes [id number] E11.9. Check blood sugar BID (Accu-Chec k Brand) [facility] lancets 30 gauge Mis 2020-0 9-10 00:00: 00 Yes [id number] E11.9. Check blood sugar BID (Accu -Check Brand) [facility] blood sugar diagnostic strip 2020-0 9-10 00:00: 00 Yes [id number] E11.9. Check blood sugar BID (Accu-Chec k Brand) [facility] lancets 30 gauge Mis 2020-0 9-10 00:00: 00 Yes [id number] E11.9. Check blood sugar BID (Accu -Check Brand) [facility] blood sugar diagnostic strip 2020-0 9-10 00:00: 00 Yes [id number] E11.9. Check blood sugar BID (Accu-Chec k Brand) [facility] lancets 30 gauge Misc 2020-0 9-10 00:00: 00 Yes [id number] E11.9. Check blood sugar BID (Accu -Check Brand) [facility] blood sugar diagnostic strip 2020-0 9-10 00:00: 00 Yes [id number] E11.9. Check blood sugar BID (Accu-Chec k Brand) [facility] lancets 30 gauge Misc 2020-0 9-10 00:00: 00 Yes [id number] E11.9. [facility] 9-10 00:00: 00 Yes [id number] E11.9. Check blood sugar BID (Accu-Chec k Brand) [facility] lancets 30 gauge Misc 2020-0 9-10 00:00: 00 Yes [id number] E11.9. Check blood sugar BID ([facility] 2020-0 9-10 00:00: 00 Yes [id number] E11.9. Check blood sugar BID ([facility]Chec k [facility]) [facility] Mis 2020-0 9-10 00:00: 00 Yes [id number] E11.9. Check blood sugar BID (Accu -Check Brand) [facility] blood sugar diagnostic strip 2020-0 9-10 00:00: 00 Yes [id number] E11.9. Check blood sugar BID (Accu-Chec k Brand) [facility] lancets 30 gauge Mis 2020-0 9-10 00:00: 00 Yes [id number] E11.9. Check blood sugar BID (Accu -Check Brand) [facility] blood sugar diagnostic strip 2020-0 9-10 00:00: 00 Yes [id number] E11.9. Check blood sugar BID (Accu-Chec k Brand) [facility] lancets 30 gauge Mis 2020-0 9-10 00:00: 00 Yes [id number] E11.9. Check blood sugar BID (Accu -Check Brand) [facility] blood sugar diagnostic strip 2020-0 9-10 00:00: 00 Yes [id number] E11.9. Check blood sugar BID (Accu-Chec k Brand) [facility] lancets 30 gauge Mis 2020-0 9-10 00:00: 00 Yes [id number] E11.9. Check blood sugar BID (Accu -Check Brand) [facility] blood sugar diagnostic strip 2020-0 9-10 00:00: 00 Yes [id number] E11.9. Check blood sugar BID ([facility]c k [facility] Mis 2020-0 9-10 00:00: 00 Yes [id number] E11.9. Check blood sugar BID (Accu -Check Brand) [facility] blood sugar diagnostic strip 2020-0 9-10 00:00: 00 Yes [id number] E11.9. Check blood sugar BID (Acc[facility]Chec k Brand) [facility] 2020-0 9-10 00:00: 00 Yes [id number] E11.9. Check blood sugar BID ([facility]Check [facility]) [facility] 2019-0 9-10 00:00: 00 Yes [id number] E11.9. Check blood sugar BID (Accu-Chec k Brand) [facility] lancets 30 gauge [facility] 2020-0 9-10 00:00: 00 Yes [id number] E11.9. Check blood sugar BID (Accu -Check Brand) [facility] blood sugar diagnostic strip 2019-0 9-10 00:00: 00 Yes [id number] E11.9. Check blood sugar BID (Accu-Chec k Brand) [facility] lancets 30 gauge [facility] 2020-0 9-10 00:00: 00 Yes [id number] E11.9. Check blood sugar BID (Accu -Check Brand) [facility] blood sugar diagnostic strip 2019-0 9-10 00:00: 00 Yes [id number] E11.9. Check blood sugar BID (Accu-Chec k Brand) [facility] lancets 30 gauge [facility] 2020-0 9-10 00:00: 00 Yes [id number] E11.9. Check blood sugar BID (Accu -Check Brand) [facility] blood sugar diagnostic strip 2020-0 9-10 00:00: 00 Yes [id number] E11.9. Check blood sugar BID (Accu-Chec k Brand) [facility] lancets 30 gauge [facility] 2020-0 9-10 00:00: 00 Yes [id number] E11.9. Check blood sugar BID (Accu -Check Brand) [facility] blood sugar diagnostic strip 2020-0 9-10 00:00: 00 Yes [id number] E11.9. Check blood sugar BID (Accu-Chec k Brand) [facility] lancets 30 gauge Misc 2020-0 9-10 00:00: 00 Yes [id number] E11.9. Check blood sugar BID ([facility] -Check Brand) [facility] 2020-0 9-10 00:00: 00 Yes [id number] E11.9. Check blood sugar BID (Acc[facility]Chec k Brand) [facility] Mis 2020-0 9-10 00:00: 00 Yes [id number] E11.9. Check blood sugar BID ([facility] -Check Brand) [facility] 2020-0 9-10 00:00: 00 Yes [id number] E11.9. Check blood sugar BID (Accu-Chec k Brand) [facility] lancets 30 gauge Mis 2020-0 9-10 00:00: 00 Yes [id number] E11.9. Check blood sugar BID (Accu -Check Brand) [facility] blood sugar diagnostic strip 2020-0 9-10 00:00: 00 Yes [id number] E11.9. Check blood sugar BID (Accu-Chec k Brand) [facility] lancets 30 gauge Mis 2020-0 9-10 00:00: 00 Yes [id number] E11.9. Check blood sugar BID (Accu -Check Brand) [facility] blood sugar diagnostic strip 2020-0 9-10 00:00: 00 Yes [id number] E11.9. Check blood sugar BID (Accu-Chec k Brand) [facility] lancets 30 gauge Misc 2020-0 9-10 00:00: 00 Yes [id number] E11.9. Check blood sugar BID (Accu -Check Brand) [facility] blood sugar diagnostic strip 2020-0 9-10 00:00: 00 Yes [id number] E11.9. Check blood sugar BID (Accu-Chec k Brand) [facility] lancets 30 gauge Misc 2020-0 9-10 00:00: 00 Yes [id number] E11.9. Check blood sugar BID (Accu -Check Brand) [facility] blood sugar diagnostic strip 2020-0 9-10 00:00: 00 Yes [id number] E11.9. Check blood sugar BID (Accu-Chec k Brand) [facility] lancets 30 gauge Mis 2020-0 9-10 00:00: 00 Yes [id number] E11.9. Check blood sugar BID (Accu -Check Brand) [facility] blood sugar diagnostic strip 2020-0 9-10 00:00: 00 Yes [id number] E11.9. Check blood sugar BID (Accu-Chec k Brand) [facility] lancets 30 gauge Mis 2020-0 9-10 00:00: 00 Yes [id number] E11.9. Check blood sugar BID (Accu -Check Brand) [facility] blood sugar diagnostic strip 2020-0 9-10 00:00: 00 Yes [id number] E11.9. Check blood sugar BID (Accu-Chec k Brand) [facility] lancets 30 gauge Mis 2020-0 9-10 00:00: 00 Yes [id number] E11.9. Check blood sugar BID (Accu -Check Brand) [facility] blood sugar diagnostic strip 2020-0 9-10 00:00: 00 Yes [id number] E11.9. Check blood sugar BID (Accu-Chec k Brand) [facility] lancets 30 gauge Mis 2020-0 9-10 00:00: 00 Yes [id number] E11.9. Check blood sugar BID (Accu -Check Brand) [facility] blood sugar diagnostic strip 2020-0 9-10 00:00: 00 Yes [id number] E11.9. Check blood sugar BID (Accu-Chec k Brand) [facility] lancets 30 gauge Mis 2020-0 9-10 00:00: 00 Yes [id number] E11.9. Check blood sugar BID (Accu -Check Brand) [facility] blood sugar diagnostic strip 2020-0 9-10 00:00: 00 Yes [id number] E11.9. Check blood sugar BID (Accu-Chec k Brand) [facility] lancets 30 gauge Mis 2020-0 9-10 00:00: 00 Yes [id number] E11.9. Check blood sugar BID (Accu -Check Brand) [facility] blood sugar diagnostic strip 0 - 00:00: 00 05-21 00:00 :00 No [id number] E11.9. Check blood sugar BID (Accu-Chec k Brand) [facility] lancets 30 gauge Misc 04-18 00:00: 00 05-21 00:00 :00 No [id number] E11.9. Check blood sugar BID (Accu -Check Brand) [facility] meclizine 25 mg tablet 2020-0 2-04 00:00: 00 Yes [id number] 25mg Take 1 tablet by mouth every 6 (six) hours. [facility] meclizine 25 mg tablet 2020-0 2-04 00:00: 00 Yes [id number] 25mg Take 1 tablet by mouth every 6 (six) hours. [facility] meclizine 25 mg tablet 2020-0 2-04 00:00: 00 Yes [id number] 25mg Take 1 tablet by mouth every 6 (six) hours. [facility] meclizine 25 mg tablet 2020-0 2-04 00:00: 00 Yes [id number] 25mg Take 1 tablet by mouth every 6 (six) hours. [facility] meclizine 25 mg tablet 2020-0 2-04 00:00: 00 Yes [id number] 25mg Take 1 tablet by mouth every 6 (six) hours. [facility] meclizine 25 mg tablet 2020-0 2-04 00:00: 00 Yes [id number] 25mg Take 1 tablet by mouth every 6 (six) hours. [facility] meclizine 25 mg tablet 2020-0 2-04 00:00: 00 Yes [id number] 25mg Take 1 tablet by mouth every 6 (six) hours. [facility] meclizine 25 mg tablet 2020-0 2-04 00:00: 00 Yes [id number] 25mg Take 1 tablet by mouth every 6 (six) hours. [facility] meclizine 25 mg tablet 2020-0 2-04 00:00: 00 Yes [id number] 25mg Take 1 tablet by mouth every 6 (six) hours. [facility] tablet 2020-0 2-04 00:00: 00 Yes [id number] 25mg Take 1 tablet by mouth every 6 (six) hours. [facility] mg tablet 2020-0 2-04 00:00: 00 Yes [id number] 25mg Take 1 tablet by mouth every 6 (six) hours. [facility] mg tablet 2020-0 2-04 00:00: 00 Yes [id number] 25mg Take 1 tablet by mouth every 6 (six) hours. [facility] meclizine 25 mg tablet 2020-0 2-04 00:00: 00 Yes [id number] 25mg Take 1 tablet by mouth every 6 (six) hours. [facility] meclizine 25 mg tablet 2020-0 2-04 00:00: 00 Yes [id number] 25mg Take 1 tablet by mouth every 6 (six) hours. [facility] meclizine 25 mg tablet 2020-0 2-04 00:00: 00 Yes [id number] 25mg Take 1 tablet by mouth every 6 (six) hours. [facility] meclizine 25 mg tablet 2020-0 2-04 00:00: 00 Yes [id number] 25mg Take 1 tablet by mouth every 6 (six) hours. [facility] meclizine 25 mg tablet 2020-0 2-04 00:00: 00 Yes [id number] 25mg Take 1 tablet by mouth every 6 (six) hours. [facility] meclizine 25 mg tablet 2020-0 2-04 00:00: 00 Yes [id number] 25mg Take 1 tablet by mouth every 6 (six) hours. [facility] meclizine 25 mg tablet 2020-0 2-04 00:00: 00 Yes [id number] 25mg Take 1 tablet by mouth every 6 (six) hours. [facility] meclizine 25 mg tablet 2020-0 2-04 00:00: 00 Yes [id number] 25mg Take 1 tablet by mouth every 6 (six) hours. [facility] meclizine 25 mg tablet 2020-0 2-04 00:00: 00 Yes [id number] 25mg Take 1 tablet by mouth every 6 (six) hours. [facility] meclizine 25 mg tablet 2020-0 2-04 00:00: 00 Yes [id number] 25mg Take 1 tablet by mouth every 6 (six) hours. [facility] meclizine 25 mg tablet 2020-0 2-04 00:00: 00 Yes [id number] 25mg Take 1 tablet by mouth every 6 (six) hours. [facility] meclizine 25 mg tablet 2020-0 2-04 00:00: 00 Yes [id number] 25mg Take 1 tablet by mouth every 6 (six) hours. [facility] meclizine 25 mg tablet 2020-0 2-04 00:00: 00 Yes [id number] 25mg Take 1 tablet by mouth every 6 (six) hours. [facility] meclizine 25 mg tablet 2020-0 2-04 00:00: 00 Yes [id number] 25mg Take 1 tablet by mouth every 6 (six) hours. [facility] meclizine 25 mg tablet 2020-0 2-04 00:00: 00 Yes [id number] 25mg Take 1 tablet by mouth every 6 (six) hours. [facility] meclizine 25 mg tablet 2020-0 2-04 00:00: 00 Yes [id number] 25mg Take 1 tablet by mouth every 6 (six) hours. [facility] meclizine 25 mg tablet 2020-0 2-04 00:00: 00 Yes [id number] 25mg Take 1 tablet by mouth every 6 (six) hours. [facility] meclizine 25 mg tablet 2020-0 2-04 00:00: 00 Yes [id number] 25mg Take 1 tablet by mouth every 6 (six) hours. [facility] meclizine 25 mg tablet 2020-0 2-04 00:00: 00 Yes [id number] 25mg Take 1 tablet by mouth every 6 (six) hours. [facility] meclizine 25 mg tablet 2020-0 2-04 00:00: 00 Yes [id number] 25mg Take 1 tablet by mouth every 6 (six) hours. [facility] meclizine 25 mg tablet 2020-0 2-04 00:00: 00 Yes [id number] 25mg Take 1 tablet by mouth every 6 (six) hours. [facility] meclizine 25 mg tablet 2020-0 2-04 00:00: 00 Yes [id number] 25mg Take 1 tablet by mouth every 6 (six) hours. [facility] meclizine 25 mg tablet 2020-0 2-04 00:00: 00 Yes [id number] 25mg Take 1 tablet by mouth every 6 (six) hours. [facility] meclizine 25 mg tablet 2020-0 2-04 00:00: 00 Yes [id number] 25mg Take 1 tablet by mouth every 6 (six) hours. [facility] meclizine 25 mg tablet 2020-0 2-04 00:00: 00 Yes [id number] 25mg Take 1 tablet by mouth every 6 (six) hours. [facility] meclizine 25 mg tablet 2020-0 2-04 00:00: 00 Yes [id number] 25mg Take 1 tablet by mouth every 6 (six) hours. [facility] meclizine 25 mg tablet 2020-0 2-04 00:00: 00 Yes [id number] 25mg Take 1 tablet by mouth every 6 (six) hours. [facility] meclizine 25 mg tablet 2020-0 2-04 00:00: 00 Yes [id number] 25mg Take 1 tablet by mouth every 6 (six) hours. [facility] meclizine 25 mg tablet 2020-0 2-04 00:00: 00 Yes [id number] 25mg Take 1 tablet by mouth every 6 (six) hours. [facility] meclizine 25 mg tablet 2020-0 2-04 00:00: 00 Yes [id number] 25mg Take 1 tablet by mouth every 6 (six) hours. [facility] meclizine 25 mg tablet 2020-0 2-04 00:00: 00 Yes [id number] 25mg Take 1 tablet by mouth every 6 (six) hours. [facility] mg tablet 2020-0 2-04 00:00: 00 Yes [id number] 25mg Take 1 tablet by mouth every 6 (six) hours. [facility] me[facility]iz[facility] 25 mg tablet 2020-0 2-04 00:00: 00 Yes [id number] 25mg Take 1 tablet by mouth every 6 (six) hours. [facility] me[facility]iz[facility] 25 mg tablet 2020-0 2-04 00:00: 00 Yes [id number] 25mg Take 1 tablet by mouth every 6 (six) hours. [facility] meclizine 25 mg tablet 2020-0 2-04 00:00: 00 Yes [id number] 25mg Take 1 tablet by mouth every 6 (six) hours. [facility] meclizine 25 mg tablet 2020-0 2-04 00:00: 00 Yes [id number] 25mg Take 1 tablet by mouth every 6 (six) hours. [facility] meclizine 25 mg tablet 2020-0 2-04 00:00: 00 Yes [id number] 25mg Take 1 tablet by mouth every 6 (six) hours. [facility] meclizine 25 mg tablet 2020-0 2-04 00:00: 00 Yes [id number] 25mg Take 1 tablet by mouth every 6 (six) hours. [facility] meclizine 25 mg tablet 2020-0 2-04 00:00: 00 Yes [id number] 25mg Take 1 tablet by mouth every 6 (six) hours. [facility] meclizine 25 mg tablet 2020-0 2-04 00:00: 00 Yes [id number] 25mg Take 1 tablet by mouth every 6 (six) hours. [facility] meclizine 25 mg tablet 2020-0 2-04 00:00: 00 Yes [id number] 25mg Take 1 tablet by mouth every 6 (six) hours. [facility] meclizine 25 mg tablet 2020-0 2-04 00:00: 00 Yes [id number] 25mg Take 1 tablet by mouth every 6 (six) hours. [facility] meclizine 25 mg tablet 2020-0 2-04 00:00: 00 Yes [id number] 25mg Take 1 tablet by mouth every 6 (six) hours. [facility] 25 mg tablet 2020-0 2-04 00:00: 00 Yes [id number] 25mg Take 1 tablet by mouth every 6 (six) hours. [facility] meclizine 25 mg tablet 2020-0 2-04 00:00: 00 Yes [id number] 25mg Take 1 tablet by mouth every 6 (six) hours. [facility] meclizine 25 mg tablet 2020-0 2-04 00:00: 00 Yes [id number] 25mg Take 1 tablet by mouth every 6 (six) hours. [facility] meclizine 25 mg tablet 2020-0 2-04 00:00: 00 Yes [id number] 25mg Take 1 tablet by mouth every 6 (six) hours. [facility] meclizine 25 mg tablet 2020-0 2-04 00:00: 00 Yes [id number] 25mg Take 1 tablet by mouth every 6 (six) hours. [facility] meclizine 25 mg tablet 2020-0 2-04 00:00: 00 Yes [id number] 25mg Take 1 tablet by mouth every 6 (six) hours. [facility] meclizine 25 mg tablet 2020-0 2-04 00:00: 00 Yes [id number] 25mg Take 1 tablet by mouth every 6 (six) hours. [facility] meclizine 25 mg tablet 2020-0 2-04 00:00: 00 Yes [id number] 25mg Take 1 tablet by mouth every 6 (six) hours. [facility] meclizine 25 mg tablet 2020-0 2-04 00:00: 00 Yes [id number] 25mg Take 1 tablet by mouth every 6 (six) hours. [facility] meclizine 25 mg tablet 2020-0 2-04 00:00: 00 Yes [id number] 25mg Take 1 tablet by mouth every 6 (six) hours. [facility] meclizine 25 mg tablet 2020-0 2-04 00:00: 00 Yes [id number] 25mg Take 1 tablet by mouth every 6 (six) hours. [facility] meclizine 25 mg tablet 2020-0 2-04 00:00: 00 Yes [id number] 25mg Take 1 tablet by mouth every 6 (six) hours. [facility] meclizine 25 mg tablet 2020-0 2-04 00:00: 00 Yes [id number] 25mg Take 1 tablet by mouth every 6 (six) hours. [facility] meclizine 25 mg tablet 2020-0 2-04 00:00: 00 Yes [id number] 25mg Take 1 tablet by mouth every 6 (six) hours. [facility] meclizine 25 mg tablet 2020-0 2-04 00:00: 00 Yes [id number] 25mg Take 1 tablet by mouth every 6 (six) hours. [facility] meclizine 25 mg tablet 2020-0 2-04 00:00: 00 Yes [id number] 25mg Take 1 tablet by mouth every 6 (six) hours. [facility] meclizine 25 mg tablet 2020-0 2-04 00:00: 00 Yes [id number] 25mg Take 1 tablet by mouth every 6 (six) hours. [facility] meclizine 25 mg tablet 2020-0 2-04 00:00: 00 Yes [id number] 25mg Take 1 tablet by mouth every 6 (six) hours. [facility] meclizine 25 mg tablet 2020-0 2-04 00:00: 00 Yes [id number] 25mg Take 1 tablet by mouth every 6 (six) hours. [facility] meclizine 25 mg tablet 2020-0 2-04 00:00: 00 Yes [id number] 25mg Take 1 tablet by mouth every 6 (six) hours. [facility] meclizine 25 mg tablet 2020-0 2-04 00:00: 00 Yes [id number] 25mg Take 1 tablet by mouth every 6 (six) hours. [facility] meclizine 25 mg tablet 2020-0 2-04 00:00: 00 Yes [id number] 25mg Take 1 tablet by mouth every 6 (six) hours. [facility] meclizine 25 mg tablet 2020-0 2-04 00:00: 00 Yes [id number] 25mg Take 1 tablet by mouth every 6 (six) hours. [facility] meclizine 25 mg tablet 2020-0 2-04 00:00: 00 Yes [id number] 25mg Take 1 tablet by mouth every 6 (six) hours. [facility] meclizine 25 mg tablet 2020-0 2-04 00:00: 00 Yes [id number] 25mg Take 1 tablet by mouth every 6 (six) hours. [facility] meclizine 25 mg tablet 2020-0 2-04 00:00: 00 Yes [id number] 25mg Take 1 tablet by mouth every 6 (six) hours. [facility] meclizine 25 mg tablet 2020-0 2-04 00:00: 00 Yes [id number] 25mg Take 1 tablet by mouth every 6 (six) hours. [facility] meclizine 25 mg tablet 2020-0 2-04 00:00: 00 Yes [id number] 25mg Take 1 tablet by mouth every 6 (six) hours. [facility] meclizine 25 mg tablet 2020-0 2-04 00:00: 00 Yes [id number] 25mg Take 1 tablet by mouth every 6 (six) hours. [facility] meclizine 25 mg tablet 2020-0 2-04 00:00: 00 Yes [id number] 25mg Take 1 tablet by mouth every 6 (six) hours. [facility] meclizine 25 mg tablet 2020-0 2-04 00:00: 00 Yes [id number] 25mg Take 1 tablet by mouth every 6 (six) hours. [facility] meclizine 25 mg tablet 2020-0 2-04 00:00: 00 Yes [id number] 25mg Take 1 tablet by mouth every 6 (six) hours. [facility] meclizine 25 mg tablet 2020-0 2-04 00:00: 00 Yes [id number] 25mg Take 1 tablet by mouth every 6 (six) hours. [facility] meclizine 25 mg tablet 2020-0 2-04 00:00: 00 Yes [id number] 25mg Take 1 tablet by mouth every 6 (six) hours. [facility] me[facility]iz[facility] 25 mg tablet 2020-0 2-04 00:00: 00 Yes [id number] 25mg Take 1 tablet by mouth every 6 (six) hours. [facility] meclizine 25 mg tablet 2020-0 2-04 00:00: 00 Yes [id number] 25mg Take 1 tablet by mouth every 6 (six) hours. [facility] meclizine 25 mg tablet 2020-0 2-04 00:00: 00 Yes [id number] 25mg Take 1 tablet by mouth every 6 (six) hours. [facility] meclizine 25 mg tablet 2020-0 2-04 00:00: 00 Yes [id number] 25mg Take 1 tablet by mouth every 6 (six) hours. [facility] meclizine 25 mg tablet 2020-0 2-04 00:00: 00 Yes [id number] 25mg Take 1 tablet by mouth every 6 (six) hours. [facility] meclizine 25 mg tablet 2020-0 2-04 00:00: 00 Yes [id number] 25mg Take 1 tablet by mouth every 6 (six) hours. [facility] meclizine 25 mg tablet 2020-0 2-04 00:00: 00 Yes [id number] 25mg Take 1 tablet by mouth every 6 (six) hours. [facility] meclizine 25 mg tablet 2020-0 2-04 00:00: 00 Yes [id number] 25mg Take 1 tablet by mouth every 6 (six) hours. [facility] meclizine 25 mg tablet 2020-0 2-04 00:00: 00 Yes [id number] 25mg Take 1 tablet by mouth every 6 (six) hours. [facility] meclizine 25 mg tablet 2020-0 2-04 00:00: 00 Yes [id number] 25mg Take 1 tablet by mouth every 6 (six) hours. [facility] meclizine 25 mg tablet 2020-0 2-04 00:00: 00 Yes [id number] 25mg Take 1 tablet by mouth every 6 (six) hours. [facility] meclizine 25 mg tablet 2020-0 2-04 00:00: 00 Yes [id number] 25mg Take 1 tablet by mouth every 6 (six) hours. [facility] meclizine 25 mg tablet 2020-0 2-04 00:00: 00 Yes [id number] 25mg Take 1 tablet by mouth every 6 (six) hours. [facility] meclizine 25 mg tablet 2020-0 2-04 00:00: 00 Yes [id number] 25mg Take 1 tablet by mouth every 6 (six) hours. [facility] [place] [facility] 25 mg tablet 2020-0 2-04 00:00: 00 Yes [id number] 25mg Take 1 tablet by mouth every 6 (six) hours. [facility] 2020-0 2-04 00:00: 00 Yes [id number] 25mg Take 1 tablet by mouth every 6 (six) hours. [facility] meclizine 25 mg tablet 2020-0 2-04 00:00: 00 Yes [id number] 25mg Take 1 tablet by mouth every 6 (six) hours. [facility] meclizine 25 mg tablet 2020-0 2-04 00:00: 00 Yes [id number] 25mg Take 1 tablet by mouth every 6 (six) hours. [facility] mg tablet 2020-0 2-04 00:00: 00 Yes [id number] 25mg Take 1 tablet by mouth every 6 (six) hours. [facility] mg tablet 2020-0 2-04 00:00: 00 Yes [id number] 25mg Take 1 tablet by mouth every 6 (six) hours. [facility] mg tablet 2020-0 2-04 00:00: 00 Yes [id number] 25mg Take 1 tablet by mouth every 6 (six) hours. [facility] mg tablet 2020-0 2-04 00:00: 00 Yes [id number] 25mg Take 1 tablet by mouth every 6 (six) hours. [facility] meclizine 25 mg tablet 2020-0 2-04 00:00: 00 11-20 00:00 :00 No [id number] 25mg Take 1 tablet by mouth every 6 (six) hours. [facility] meclizine 25 mg tablet 2020-0 2-04 00:00: 00 11-20 00:00 :00 No [id number] 25mg Take 1 tablet by mouth every 6 (six) hours. [facility] meclizine 25 mg tablet 2019-0 2-04 00:00: 00 11-20 00:00 :00 No [id number] 25mg Take 1 tablet by mouth every 6 (six) hours. [facility] Immunizations Ordered Immunization Name Filled Immunization Name Date Status Comments Source Pneumococcal 20 Conjugate, PCV20 (Prevnar 20) 2022-08-14 00:00:00 Completed [facility] Pneumococcal 20 Conjugate, PCV20 (Prevnar 20) 2022-08-14 00:00:00 Completed [facility] Pneumococcal 20 Conjugate, PCV20 (Prevnar 20) 2022-08-14 00:00:00 Completed [facility] Pneumococcal 20 Conjugate, PCV20 (Prevnar 20) 2022-08-14 00:00:00 Completed [facility] Pneumococcal 20 Conjugate, PCV20 (Prevnar 20) 2022-08-14 00:00:00 Completed [facility] Pneumococcal 20 Conjugate, PCV20 (Prevnar 20) 2022-08-14 00:00:00 Completed [facility] Pneumococcal 20 Conjugate, PCV20 (Prevnar 20) 2022-08-14 00:00:00 Completed [facility] Pneumococcal 20 Conjugate, PCV20 (Prevnar 20) 2022-08-14 00:00:00 Completed [facility] Pneumococcal 20 Conjugate, PCV20 (Prevnar 20) 2022-08-14 00:00:00 Completed [facility] Pneumococcal 20 Conjugate, PCV20 (Prevnar 20) 2022-08-14 00:00:00 Completed [facility] Pneumococcal 20 Conjugate, PCV20 (Prevnar 20) 2022-08-14 00:00:00 Completed [facility] Pneumococcal 20 Conjugate, PCV20 (Prevnar 20) 2022-08-14 00:00:00 Completed [facility] Pneumococcal 20 Conjugate, PCV20 (Prevnar 20) 2022-08-14 00:00:00 Completed [facility] Pneumococcal 20 Conjugate, PCV20 (Prevnar 20) 2022-08-14 00:00:00 Completed [facility] Pneumococcal 20 Conjugate, PCV20 (Prevnar 20) 2022-08-14 00:00:00 Completed [facility] Pneumococcal 20 Conjugate, PCV20 (Prevnar 20) 2022-08-14 00:00:00 Completed [facility] Pneumococcal 20 Conjugate, PCV20 (Prevnar 20) 2022-08-14 00:00:00 Completed [facility] Pneumococcal 20 Conjugate, PCV20 (Prevnar 20) 2022-08-14 00:00:00 Completed [facility] Pneumococcal 20 Conjugate, PCV20 (Prevnar 20) 2022-08-14 00:00:00 Completed [facility] Pneumococcal 20 Conjugate, PCV20 (Prevnar 20) 2022-08-14 00:00:00 Completed [facility] Pneumococcal 20 Conjugate, PCV20 (Prevnar 20) 2022-08-14 00:00:00 Completed [facility] Pneumococcal 20 Conjugate, PCV20 (Prevnar 20) 2022-08-14 00:00:00 Completed [facility] Pneumococcal 20 Conjugate, PCV20 (Prevnar 20) 2022-08-14 00:00:00 Completed [facility] Pneumococcal 20 Conjugate, PCV20 (Prevnar 20) 2022-08-14 00:00:00 Completed [facility] Pneumococcal 20 Conjugate, PCV20 (Prevnar 20) 2022-08-14 00:00:00 Completed [facility] Pneumococcal 20 Conjugate, PCV20 (Prevnar 20) 2022-08-14 00:00:00 Completed [facility] Pneumococcal 20 Conjugate, PCV20 (Prevnar 20) 2022-08-14 00:00:00 Completed [facility] Pneumococcal 20 Conjugate, PCV20 (Prevnar 20) 2022-08-14 00:00:00 Completed [facility] Pneumococcal 20 Conjugate, PCV20 (Prevnar 20) 2022-08-14 00:00:00 Completed [facility] Pneumococcal 20 Conjugate, PCV20 (Prevnar 20) 2022-08-14 00:00:00 Completed [facility] Pneumococcal 20 Conjugate, PCV20 (Prevnar 20) 2022-08-14 00:00:00 Completed [facility] Pneumococcal 20 Conjugate, PCV20 (Prevnar 20) 2022-08-14 00:00:00 Completed [facility] Pneumococcal 20 Conjugate, PCV20 (Prevnar 20) 2022-08-14 00:00:00 Completed [facility] Pneumococcal 20 Conjugate, PCV20 (Prevnar 20) 2022-08-14 00:00:00 Completed [facility] Pneumococcal 20 Conjugate, PCV20 (Prevnar 20) 2022-08-14 00:00:00 Completed [facility] Pneumococcal 20 Conjugate, PCV20 (Prevnar 20) 2022-08-14 00:00:00 Completed [facility] Pneumococcal 20 Conjugate, PCV20 (Prevnar 20) 2022-08-14 00:00:00 Completed [facility] Pneumococcal 20 Conjugate, PCV20 (Prevnar 20) 2022-08-14 00:00:00 Completed [facility] Pneumococcal 20 Conjugate, PCV20 (Prevnar 20) 2022-08-14 00:00:00 Completed [facility] Pneumococcal 20 Conjugate, PCV20 (Prevnar 20) 2022-08-14 00:00:00 Completed [facility] Pneumococcal 20 Conjugate, PCV20 (Prevnar 20) 2022-08-14 00:00:00 Completed [facility] Pneumococcal 20 Conjugate, PCV20 (Prevnar 20) 2022-08-14 00:00:00 Completed [facility] Pneumococcal 20 Conjugate, PCV20 (Prevnar 20) 2022-08-14 00:00:00 Completed [facility] Pneumococcal 20 Conjugate, PCV20 (Prevnar 20) 2022-08-14 00:00:00 Completed [facility] Pneumococcal 20 Conjugate, PCV20 (Prevnar 20) 2022-08-14 00:00:00 Completed [facility] Pneumococcal 20 Conjugate, PCV20 (Prevnar 20) 2022-08-14 00:00:00 Completed [facility] Pneumococcal 20 Conjugate, PCV20 (Prevnar 20) 2022-08-14 00:00:00 Completed [facility] Pneumococcal 20 Conjugate, PCV20 (Prevnar 20) 2022-08-14 00:00:00 Completed [facility] Pneumococcal 20 Conjugate, PCV20 (Prevnar 20) 2022-08-14 00:00:00 Completed [facility] Pneumococcal 20 Conjugate, PCV20 (Prevnar 20) 2022-08-14 00:00:00 Completed [facility] Pneumococcal 20 Conjugate, PCV20 (Prevnar 20) 2022-08-14 00:00:00 Completed [facility] Pneumococcal 20 Conjugate, PCV20 (Prevnar 20) 2022-08-14 00:00:00 Completed [facility] Pneumococcal 20 Conjugate, PCV20 (Prevnar 20) 2022-08-14 00:00:00 Completed [facility] Pneumococcal 20 Conjugate, PCV20 (Prevnar 20) 2022-08-14 00:00:00 Completed [facility] Pneumococcal 20 Conjugate, PCV20 (Prevnar 20) 2022-08-14 00:00:00 Completed [facility] Pneumococcal 20 Conjugate, PCV20 (Prevnar 20) 2022-08-14 00:00:00 Completed [facility] Pneumococcal 20 Conjugate, PCV20 (Prevnar 20) 2022-08-14 00:00:00 Completed [facility] Pneumococcal 20 Conjugate, PCV20 (Prevnar 20) 2022-08-14 00:00:00 Completed [facility] Pneumococcal 20 Conjugate, PCV20 (Prevnar 20) 2022-08-14 00:00:00 Completed [facility] Pneumococcal 20 Conjugate, PCV20 (Prevnar 20) 2022-08-14 00:00:00 Completed [facility] Pneumococcal 20 Conjugate, PCV20 (Prevnar 20) 2022-08-14 00:00:00 Completed [facility] Pneumococcal 20 Conjugate, PCV20 (Prevnar 20) 2022-08-14 00:00:00 Completed [facility] Pneumococcal 20 Conjugate, PCV20 (Prevnar 20) 2022-08-14 00:00:00 Completed [facility] Pneumococcal 20 Conjugate, PCV20 (Prevnar 20) 2022-08-14 00:00:00 Completed [facility] Pneumococcal 20 Conjugate, PCV20 (Prevnar 20) 2022-08-14 00:00:00 Completed [facility] Pneumococcal 20 Conjugate, PCV20 (Prevnar 20) 2022-08-14 00:00:00 Completed [facility] Pneumococcal 20 Conjugate, PCV20 (Prevnar 20) 2022-08-14 00:00:00 Completed [facility] Pneumococcal 20 Conjugate, PCV20 (Prevnar 20) 2022-08-14 00:00:00 Completed [facility] Pneumococcal 20 Conjugate, PCV20 (Prevnar 20) 2022-08-14 00:00:00 Completed [facility] Pneumococcal 20 Conjugate, PCV20 (Prevnar 20) 2022-08-14 00:00:00 Completed [facility] Pneumococcal 20 Conjugate, PCV20 (Prevnar 20) 2022-08-14 00:00:00 Completed [facility] Pneumococcal 20 Conjugate, PCV20 (Prevnar 20) 2022-08-14 00:00:00 Completed [facility] Pneumococcal 20 Conjugate, PCV20 (Prevnar 20) 2022-08-14 00:00:00 Completed [facility] Pneumococcal 20 Conjugate, PCV20 (Prevnar 20) 2022-08-14 00:00:00 Completed [facility] Pneumococcal 20 Conjugate, PCV20 (Prevnar 20) 2022-08-14 00:00:00 Completed [facility] Pneumococcal 20 Conjugate, PCV20 (Prevnar 20) 2022-08-14 00:00:00 Completed [facility] Pneumococcal 20 Conjugate, PCV20 (Prevnar 20) 2022-08-14 00:00:00 Completed [facility] Pneumococcal 20 Conjugate, PCV20 (Prevnar 20) 2022-08-14 00:00:00 Completed [facility] Pneumococcal 20 Conjugate, PCV20 (Prevnar 20) 2022-08-14 00:00:00 Completed [facility] Pneumococcal 20 Conjugate, PCV20 (Prevnar 20) 2022-08-14 00:00:00 Completed [facility] Pneumococcal 20 Conjugate, PCV20 (Prevnar 20) 2022-08-14 00:00:00 Completed [facility] Pneumococcal 20 Conjugate, PCV20 (Prevnar 20) 2022-08-14 00:00:00 Completed [facility] Pneumococcal 20 Conjugate, PCV20 (Prevnar 20) 2022-08-14 00:00:00 Completed [facility] Pneumococcal 20 Conjugate, PCV20 (Prevnar 20) 2022-08-14 00:00:00 Completed [facility] Pneumococcal 20 Conjugate, PCV20 (Prevnar 20) 2022-08-14 00:00:00 Completed [facility] Pneumococcal 20 Conjugate, PCV20 (Prevnar 20) 2022-08-14 00:00:00 Completed [facility] Pneumococcal 20 Conjugate, PCV20 (Prevnar 20) 2022-08-14 00:00:00 Completed [facility] Pneumococcal 20 Conjugate, PCV20 (Prevnar 20) 2022-08-14 00:00:00 Completed [facility] Pneumococcal 20 Conjugate, PCV20 (Prevnar 20) 2022-08-14 00:00:00 Completed [facility] Pneumococcal 20 Conjugate, PCV20 (Prevnar 20) 2022-08-14 00:00:00 Completed [facility] Pneumococcal 20 Conjugate, PCV20 (Prevnar 20) 2022-08-14 00:00:00 Completed [facility] Pneumococcal 20 Conjugate, PCV20 (Prevnar 20) 2022-08-14 00:00:00 Completed [facility] Pneumococcal 20 Conjugate, PCV20 (Prevnar 20) 2022-08-14 00:00:00 Completed [facility] Pneumococcal 20 Conjugate, PCV20 (Prevnar 20) 2022-08-14 00:00:00 Completed [facility] Pneumococcal 20 Conjugate, PCV20 (Prevnar 20) 2022-08-14 00:00:00 Completed [facility] Pneumococcal 20 Conjugate, PCV20 (Prevnar 20) 2022-08-14 00:00:00 Completed [facility] Pneumococcal 20 Conjugate, PCV20 (Prevnar 20) 2022-08-14 00:00:00 Completed [facility] Pneumococcal 20 Conjugate, PCV20 (Prevnar 20) 2022-08-14 00:00:00 Completed [facility] Pneumococcal 20 Conjugate, PCV20 (Prevnar 20) 2022-08-14 00:00:00 Completed [facility] Pneumococcal 20 Conjugate, PCV20 (Prevnar 20) 2022-08-14 00:00:00 Completed [facility] Pneumococcal 20 Conjugate, PCV20 (Prevnar 20) 2022-08-14 00:00:00 Completed [facility] Pneumococcal 20 Conjugate, PCV20 (Prevnar 20) 2022-08-14 00:00:00 Completed [facility] Pneumococcal 20 Conjugate, PCV20 (Prevnar 20) 2022-08-14 00:00:00 Completed [facility] Pneumococcal 20 Conjugate, PCV20 (Prevnar 20) 2022-08-14 00:00:00 Completed [facility] Pneumococcal 20 Conjugate, PCV20 (Prevnar 20) 2022-08-14 00:00:00 Completed [facility] Pneumococcal 20 Conjugate, PCV20 (Prevnar 20) 2022-08-14 00:00:00 Completed [facility] Pneumococcal 20 Conjugate, PCV20 (Prevnar 20) 2022-08-14 00:00:00 Completed [facility] Pneumococcal 20 Conjugate, PCV20 (Prevnar 20) 2022-08-14 00:00:00 Completed [facility] Pneumococcal 20 Conjugate, PCV20 (Prevnar 20) 2022-08-14 00:00:00 Completed [facility] Pneumococcal 20 Conjugate, PCV20 (Prevnar 20) 2022-08-14 00:00:00 Completed [facility] Pneumococcal 20 Conjugate, PCV20 (Prevnar 20) 2022-08-14 00:00:00 Completed [facility] Pneumococcal 20 Conjugate, PCV20 (Prevnar 20) 2022-08-14 00:00:00 Completed [facility] Pneumococcal 20 Conjugate, PCV20 (Prevnar 20) 2022-08-14 00:00:00 Completed [facility] Pneumococcal 20 Conjugate, PCV20 (Prevnar 20) 2022-08-14 00:00:00 Completed [facility] Pneumococcal 20 Conjugate, PCV20 (Prevnar 20) 2022-08-14 00:00:00 Completed [facility] Pneumococcal 20 Conjugate, PCV20 (Prevnar 20) 2022-08-14 00:00:00 Completed [facility] Pneumococcal 20 Conjugate, PCV20 (Prevnar 20) 2022-08-14 00:00:00 Completed [facility] Pneumococcal 20 Conjugate, PCV20 (Prevnar 20) 2022-08-14 00:00:00 Completed [facility] Pneumococcal 20 Conjugate, PCV20 (Prevnar 20) 2022-08-14 00:00:00 Completed [facility] Pneumococcal 20 Conjugate, PCV20 (Prevnar 20) 2022-08-14 00:00:00 Completed [facility] Pneumococcal 20 Conjugate, PCV20 (Prevnar 20) 2022-08-14 00:00:00 Completed [facility] Pneumococcal 20 Conjugate, PCV20 (Prevnar 20) 2022-08-14 00:00:00 Completed [facility] Pneumococcal 20 Conjugate, PCV20 (Prevnar 20) 2022-08-14 00:00:00 Completed [facility] Pneumococcal 20 Conjugate, PCV20 (Prevnar 20) 2022-08-14 00:00:00 Completed [facility] Pneumococcal 20 Conjugate, PCV20 (Prevnar 20) 2022-08-14 00:00:00 Completed [facility] Pneumococcal 20 Conjugate, PCV20 (Prevnar 20) 2022-08-14 00:00:00 Completed [facility] Pneumococcal 20 Conjugate, PCV20 (Prevnar 20) 2022-08-14 00:00:00 Completed [facility] Pneumococcal 20 Conjugate, PCV20 (Prevnar 20) 2022-08-14 00:00:00 Completed [facility] Pneumococcal 20 Conjugate, PCV20 (Prevnar 20) 2022-08-14 00:00:00 Completed [facility] Pneumococcal 20 Conjugate, PCV20 (Prevnar 20) 2022-08-14 00:00:00 Completed [facility] Pneumococcal 20 Conjugate, PCV20 (Prevnar 20) 2022-08-14 00:00:00 Completed [facility] Pneumococcal 20 Conjugate, PCV20 (Prevnar 20) 2022-08-14 00:00:00 Completed [facility] Pneumococcal 20 Conjugate, PCV20 (Prevnar 20) 2022-08-14 00:00:00 Completed [facility] Pneumococcal 20 Conjugate, PCV20 (Prevnar 20) 2022-08-14 00:00:00 Completed [facility] Pneumococcal 20 Conjugate, PCV20 (Prevnar 20) 2022-08-14 00:00:00 Completed [facility] Pneumococcal 20 Conjugate, PCV20 (Prevnar 20) 2022-08-14 00:00:00 Completed [facility] Pneumococcal 20 Conjugate, PCV20 (Prevnar 20) 2022-08-14 00:00:00 Completed [facility] Pneumococcal 20 Conjugate, PCV20 (Prevnar 20) 2022-08-14 00:00:00 Completed [facility] Pneumococcal 20 Conjugate, PCV20 (Prevnar 20) 2022-08-14 00:00:00 Completed [facility] Pneumococcal 20 Conjugate, PCV20 (Prevnar 20) 2022-08-14 00:00:00 Completed [facility] Pneumococcal 20 Conjugate, PCV20 (Prevnar 20) 2022-08-14 00:00:00 Completed [facility] Pneumococcal 20 Conjugate, PCV20 (Prevnar 20) 2022-08-14 00:00:00 Completed [facility] Pneumococcal 20 Conjugate, PCV20 (Prevnar 20) 2022-08-14 00:00:00 Completed [facility] Pneumococcal 20 Conjugate, PCV20 (Prevnar 20) 2022-08-14 00:00:00 Completed [facility] Pneumococcal 20 Conjugate, PCV20 (Prevnar 20) 2022-08-14 00:00:00 Completed [facility] Pneumococcal 20 Conjugate, PCV20 (Prevnar 20) 2022-08-14 00:00:00 Completed [facility] Pneumococcal 20 Conjugate, PCV20 (Prevnar 20) 2022-08-14 00:00:00 Completed [facility] Pneumococcal 20 Conjugate, PCV20 (Prevnar 20) 2022-08-14 00:00:00 Completed [facility] Pneumococcal 20 Conjugate, PCV20 (Prevnar 20) 2022-08-14 00:00:00 Completed [facility] Pneumococcal 20 Conjugate, PCV20 (Prevnar 20) 2022-08-14 00:00:00 Completed [facility] Pneumococcal 20 Conjugate, PCV20 (Prevnar 20) 2022-08-14 00:00:00 Completed [facility] Pneumococcal 20 Conjugate, PCV20 (Prevnar 20) 2022-08-14 00:00:00 Completed [facility] Pneumococcal 20 Conjugate, PCV20 (Prevnar 20) 2022-08-14 00:00:00 Completed [facility] Pneumococcal 20 Conjugate, PCV20 (Prevnar 20) 2022-08-14 00:00:00 Completed [facility] Pneumococcal 20 Conjugate, PCV20 (Prevnar 20) 2022-08-14 00:00:00 Completed [facility] Pneumococcal 20 Conjugate, PCV20 (Prevnar 20) 2022-08-14 00:00:00 Completed [facility] Pneumococcal 20 Conjugate, PCV20 (Prevnar 20) 2022-08-14 00:00:00 Completed [facility] Pneumococcal 20 Conjugate, PCV20 (Prevnar 20) 2022-08-14 00:00:00 Completed [facility] Pneumococcal 20 Conjugate, PCV20 (Prevnar 20) 2022-08-14 00:00:00 Completed [facility] Pneumococcal 20 Conjugate, PCV20 (Prevnar 20) 2022-08-14 00:00:00 Completed [facility] Pneumococcal 20 Conjugate, PCV20 (Prevnar 20) 2022-08-14 00:00:00 Completed [facility] Pneumococcal 20 Conjugate, PCV20 (Prevnar 20) 2022-08-14 00:00:00 Completed [facility] Pneumococcal 20 Conjugate, PCV20 (Prevnar 20) 2022-08-14 00:00:00 Completed [facility] Pneumococcal 20 Conjugate, PCV20 (Prevnar 20) 2022-08-14 00:00:00 Completed [facility] Pneumococcal 20 Conjugate, PCV20 (Prevnar 20) 2022-08-14 00:00:00 Completed [facility] Pneumococcal 20 Conjugate, PCV20 (Prevnar 20) 2022-08-14 00:00:00 Completed [facility] Pneumococcal 20 Conjugate, PCV20 (Prevnar 20) 2022-08-14 00:00:00 Completed [facility] Influenza Virus Vaccine,quad Im,preserve Free 65+ 2022-08-12 00:00:00 Completed [facility] Influenza Virus Vaccine,quad Im,preserve Free 65+ 2022-08-12 00:00:00 Completed [facility] Influenza Virus Vaccine,quad Im,preserve Free 65+ 2022-08-12 00:00:00 Completed [facility] Influenza Virus Vaccine,quad Im,preserve Free 65+ 2022-08-12 00:00:00 Completed [facility] Influenza Virus Vaccine,quad Im,preserve Free 65+ 2022-08-12 00:00:00 Completed [facility] Influenza Virus Vaccine,quad Im,preserve Free 652022-08-12 00:00:00 Completed [facility] Influenza Virus Vaccine,quad Im,preserve Free 652022-08-12 00:00:00 Completed [facility] Influenza Virus Vaccine,quad Im,preserve Free 652022-08-12 00:00:00 Completed [facility] Influenza Virus Vaccine,quad Im,preserve Free 652022-08-12 00:00:00 Completed [facility] Influenza Virus Vaccine,quad Im,preserve Free 652022-08-12 00:00:00 Completed [facility] Influenza Virus Vaccine,quad Im,preserve Free 652022-08-12 00:00:00 Completed [facility] Influenza Virus Vaccine,quad Im,preserve Free 652022-08-12 00:00:00 Completed [facility] Influenza Virus Vaccine,quad Im,preserve Free 2022-08-12 00:00:00 Completed [facility] Influenza Virus Vaccine,quad Im,preserve Free 652022-08-12 00:00:00 Completed [facility] Influenza Virus Vaccine,quad Im,preserve Free 2022-08-12 00:00:00 Completed [facility] Influenza Virus Vaccine,quad Im,preserve Free 2022-08-12 00:00:00 Completed [facility] Influenza Virus Vaccine,quad Im,preserve Free 2022-08-12 00:00:00 Completed [facility] Influenza Virus Vaccine,quad Im,preserve Free 2022-08-12 00:00:00 Completed [facility] Influenza Virus Vaccine,quad Im,preserve Free 652022-08-12 00:00:00 Completed [facility] Influenza Virus Vaccine,quad Im,preserve Free 652022-08-12 00:00:00 Completed [facility] Influenza Virus Vaccine,quad Im,preserve Free 652022-08-12 00:00:00 Completed [facility] Influenza Virus Vaccine,quad Im,preserve Free 2022-08-12 00:00:00 Completed [facility] Influenza Virus Vaccine,quad Im,preserve Free 65+ 2022-08-12 00:00:00 Completed [facility] Influenza Virus Vaccine,quad Im,preserve Free 2022-08-12 00:00:00 Completed [facility] Influenza Virus Vaccine,quad Im,preserve Free 2022-08-12 00:00:00 Completed [facility] Influenza Virus Vaccine,quad Im,preserve Free 2022-08-12 00:00:00 Completed [facility] Influenza Virus Vaccine,quad Im,preserve Free 2022-08-12 00:00:00 Completed [facility] Influenza Virus Vaccine,quad Im,preserve Free 2022-08-12 00:00:00 Completed [facility] Influenza Virus Vaccine,quad Im,preserve Free 2022-08-12 00:00:00 Completed [facility] Influenza Virus Vaccine,quad Im,preserve Free 2022-08-12 00:00:00 Completed [facility] Influenza Virus Vaccine,quad Im,preserve Free 2022-08-12 00:00:00 Completed [facility] Influenza Virus Vaccine,quad Im,preserve Free 2022-08-12 00:00:00 Completed [facility] Influenza Virus Vaccine,quad Im,preserve Free 2022-08-12 00:00:00 Completed [facility] Influenza Virus Vaccine,quad Im,preserve Free 2022-08-12 00:00:00 Completed [facility] Influenza Virus Vaccine,quad Im,preserve Free 2022-08-12 00:00:00 Completed [facility] Influenza Virus Vaccine,quad Im,preserve Free 2022-08-12 00:00:00 Completed [facility] Influenza Virus Vaccine,quad Im,preserve Free 2022-08-12 00:00:00 Completed [facility] Influenza Virus Vaccine,quad Im,preserve Free 2022-08-12 00:00:00 Completed [facility] Influenza Virus Vaccine,quad Im,preserve Free 2022-08-12 00:00:00 Completed [facility] Influenza Virus Vaccine,quad Im,preserve Free 2022-08-12 00:00:00 Completed [facility] Influenza Virus Vaccine,quad Im,preserve Free 2022-08-12 00:00:00 [facility] [facility]ine,quad Im,preserve Free 2022-08-12 00:00:00 Completed [facility] Influenza Virus Vaccine,quad Im,preserve Free 652022-08-12 00:00:00 Completed [facility] Influenza Virus Vaccine,quad Im,preserve Free 652022-08-12 00:00:00 Completed [facility] Influenza Virus Vaccine,quad Im,preserve Free 2022-08-12 00:00:00 Completed [facility] Influenza Virus Vaccine,quad Im,preserve Free 652022-08-12 00:00:00 Completed [facility] Influenza Virus Vaccine,quad Im,preserve Free 2022-08-12 00:00:00 Completed [facility] Influenza Virus Vaccine,quad Im,preserve Free 2022-08-12 00:00:00 Completed [facility] Influenza Virus Vaccine,quad Im,preserve Free 2022-08-12 00:00:00 Completed [facility] Influenza Virus Vaccine,quad Im,preserve Free 2022-08-12 00:00:00 Completed [facility] Influenza Virus Vaccine,quad Im,preserve Free 2022-08-12 00:00:00 Completed [facility] Influenza Virus Vaccine,quad Im,preserve Free 2022-08-12 00:00:00 Completed [facility] Influenza Virus Vaccine,quad Im,preserve Free 2022-08-12 00:00:00 Completed [facility] Influenza Virus Vaccine,quad Im,preserve Free 2022-08-12 00:00:00 Completed [facility] Influenza Virus Vaccine,quad Im,preserve Free 2022-08-12 00:00:00 Completed [facility] Influenza Virus Vaccine,quad Im,preserve Free 2022-08-12 00:00:00 Completed [facility] Influenza Virus Vaccine,quad Im,preserve Free 652022-08-12 00:00:00 Completed [facility] Influenza Virus Vaccine,quad Im,preserve Free 2022-08-12 00:00:00 Completed [facility] Influenza Virus Vaccine,quad Im,preserve Free 2022-08-12 00:00:00 Completed [facility] Influenza Virus Vaccine,quad Im,preserve Free 652022-08-12 00:00:00 Completed [facility] Influenza Virus Vaccine,quad Im,preserve Free 2022-08-12 00:00:00 Completed [facility] Influenza Virus Vaccine,quad Im,preserve Free 652022-08-12 00:00:00 Completed [facility] Influenza Virus Vaccine,quad Im,preserve Free 2022-08-12 00:00:00 Completed [facility] Influenza Virus Vaccine,quad Im,preserve Free 652022-08-12 00:00:00 Completed [facility] Influenza Virus Vaccine,quad Im,preserve Free 2022-08-12 00:00:00 Completed [facility] Influenza Virus Vaccine,quad Im,preserve Free 2022-08-12 00:00:00 Completed [facility] Influenza Virus Vaccine,quad Im,preserve Free 2022-08-12 00:00:00 Completed [facility] Influenza Virus Vaccine,quad Im,preserve Free 2022-08-12 00:00:00 Completed [facility] Influenza Virus Vaccine,quad Im,preserve Free 2022-08-12 00:00:00 Completed [facility] Influenza Virus Vaccine,quad Im,preserve Free 2022-08-12 00:00:00 Completed [facility] Influenza Virus Vaccine,quad Im,preserve Free 2022-08-12 00:00:00 Completed [facility] Influenza Virus Vaccine,quad Im,preserve Free 2022-08-12 00:00:00 Completed [facility] Influenza Virus Vaccine,quad Im,preserve Free 2022-08-12 00:00:00 Completed [facility] Influenza Virus Vaccine,quad Im,preserve Free 652022-08-12 00:00:00 Completed [facility] Influenza Virus Vaccine,quad Im,preserve Free 2022-08-12 00:00:00 Completed [facility] Influenza Virus Vaccine,quad Im,preserve Free 2022-08-12 00:00:00 Completed [facility] Influenza Virus Vaccine,quad Im,preserve Free 2022-08-12 00:00:00 Completed [facility] Influenza Virus Vaccine,quad Im,preserve Free 2022-08-12 00:00:00 Completed [facility] Influenza Virus Vaccine,quad Im,preserve Free 652022-08-12 00:00:00 Completed [facility] Influenza Virus Vaccine,quad Im,preserve Free 2022-08-12 00:00:00 Completed [facility] Influenza Virus Vaccine,quad Im,preserve Free 2022-08-12 00:00:00 Completed [facility] Influenza Virus Vaccine,quad Im,preserve Free 2022-08-12 00:00:00 Completed [facility] Influenza Virus Vaccine,quad Im,preserve Free 2022-08-12 00:00:00 Completed [facility] Influenza Virus Vaccine,quad Im,preserve Free 2022-08-12 00:00:00 Completed [facility] Influenza Virus Vaccine,quad Im,preserve Free 2022-08-12 00:00:00 Completed [facility] Influenza Virus Vaccine,quad Im,preserve Free 2022-08-12 00:00:00 Completed [facility] Influenza Virus Vaccine,quad Im,preserve Free 2022-08-12 00:00:00 Completed [facility] Influenza Virus Vaccine,quad Im,preserve Free 2022-08-12 00:00:00 Completed [facility] Influenza Virus Vaccine,quad Im,preserve Free 2022-08-12 00:00:00 Completed [facility] Influenza Virus Vaccine,quad Im,preserve Free 2022-08-12 00:00:00 Completed [facility] Influenza Virus Vaccine,quad Im,preserve Free 2022-08-12 00:00:00 Completed [facility] Influenza Virus Vaccine,quad Im,preserve Free 2022-08-12 00:00:00 Completed [facility] Influenza Virus Vaccine,quad Im,preserve Free 652022-08-12 00:00:00 Completed [facility] Influenza Virus Vaccine,quad Im,preserve Free 2022-08-12 00:00:00 Completed [facility] Influenza Virus Vaccine,quad Im,preserve Free 2022-08-12 00:00:00 Completed [facility] Influenza Virus Vaccine,quad Im,preserve Free 2022-08-12 00:00:00 Completed [facility] Influenza Virus Vaccine,quad Im,preserve Free 2022-08-12 00:00:00 Completed [facility] Influenza Virus Vaccine,quad Im,preserve Free 2022-08-12 00:00:00 Completed [facility] Influenza Virus Vaccine,quad Im,preserve Free 2022-08-12 00:00:00 Completed [facility] Influenza Virus Vaccine,quad Im,preserve Free 2022-08-12 00:00:00 Completed [facility] Influenza Virus Vaccine,quad Im,preserve Free 2022-08-12 00:00:00 Completed [facility] Influenza Virus Vaccine,quad Im,preserve Free 2022-08-12 00:00:00 Completed [facility] Influenza Virus Vaccine,quad Im,preserve Free 2022-08-12 00:00:00 Completed [facility] Influenza Virus Vaccine,quad Im,preserve Free 2022-08-12 00:00:00 Completed [facility] Influenza Virus Vaccine,quad Im,preserve Free 2022-08-12 00:00:00 Completed [facility] Influenza Virus Vaccine,quad Im,preserve Free 2022-08-12 00:00:00 Completed [facility] Influenza Virus Vaccine,quad Im,preserve Free 2022-08-12 00:00:00 Completed [facility] Influenza Virus Vaccine,quad Im,preserve Free 2022-08-12 00:00:00 Completed [facility] Influenza Virus Vaccine,quad Im,preserve Free 2022-08-12 00:00:00 Completed [facility] Influenza Virus Vaccine,quad Im,preserve Free 2022-08-12 00:00:00 Completed [facility] Influenza Virus Vaccine,quad Im,preserve Free 2022-08-12 00:00:00 Completed [facility] Influenza Virus Vaccine,quad Im,preserve Free 652022-08-12 00:00:00 Completed [facility] Influenza Virus Vaccine,quad Im,preserve Free 652022-08-12 00:00:00 Completed [facility] Influenza Virus Vaccine,quad Im,preserve Free 652022-08-12 00:00:00 Completed [facility] Influenza Virus Vaccine,quad Im,preserve Free 652022-08-12 00:00:00 Completed [facility] Influenza Virus Vaccine,quad Im,preserve Free 652022-08-12 00:00:00 Completed [facility] Influenza Virus Vaccine,quad Im,preserve Free 652022-08-12 00:00:00 Completed [facility] Influenza Virus Vaccine,quad Im,preserve Free 652022-08-12 00:00:00 Completed [facility] Influenza Virus Vaccine,quad Im,preserve Free 2022-08-12 00:00:00 Completed [facility] Influenza Virus Vaccine,quad Im,preserve Free 2022-08-12 00:00:00 Completed [facility] Influenza Virus Vaccine,quad Im,preserve Free 2022-08-12 00:00:00 Completed [facility] Influenza Virus Vaccine,quad Im,preserve Free 2022-08-12 00:00:00 Completed [facility] Influenza Virus Vaccine,quad Im,preserve Free 2022-08-12 00:00:00 Completed [facility] Influenza Virus Vaccine,quad Im,preserve Free 2022-08-12 00:00:00 Completed [facility] Influenza Virus Vaccine,quad Im,preserve Free 2022-08-12 00:00:00 Completed [facility] Influenza Virus Vaccine,quad Im,preserve Free 652022-08-12 00:00:00 Completed [facility] Influenza Virus Vaccine,quad Im,preserve Free 652022-08-12 00:00:00 Completed [facility] Influenza Virus Vaccine,quad Im,preserve Free 652022-08-12 00:00:00 Completed [facility] Influenza Virus Vaccine,quad Im,preserve Free 2022-08-12 00:00:00 Completed [facility] Influenza Virus Vaccine,quad Im,preserve Free 652022-08-12 00:00:00 Completed [facility] Influenza Virus Vaccine,quad Im,preserve Free 652022-08-12 00:00:00 Completed [facility] Influenza Virus Vaccine,quad Im,preserve Free 652022-08-12 00:00:00 Completed [facility] Influenza Virus Vaccine,quad Im,preserve Free 652022-08-12 00:00:00 Completed [facility] Influenza Virus Vaccine,quad Im,preserve Free 652022-08-12 00:00:00 Completed [facility] Influenza Virus Vaccine,quad Im,preserve Free 652022-08-12 00:00:00 Completed [facility] Influenza Virus Vaccine,quad Im,preserve Free 652022-08-12 00:00:00 Completed [facility] Influenza Virus Vaccine,quad Im,preserve Free 652022-08-12 00:00:00 Completed [facility] Influenza Virus Vaccine,quad Im,preserve Free 2022-08-12 00:00:00 Completed [facility] Influenza Virus Vaccine,quad Im,preserve Free 652022-08-12 00:00:00 Completed [facility] Influenza Virus Vaccine,quad Im,preserve Free 2022-08-12 00:00:00 Completed [facility] Influenza Virus Vaccine,quad Im,preserve Free 2022-08-12 00:00:00 Completed [facility] Influenza Virus Vaccine,quad Im,preserve Free 2022-08-12 00:00:00 Completed [facility] Influenza Virus Vaccine,quad Im,preserve Free 2022-08-12 00:00:00 Completed [facility] Influenza Virus Vaccine,quad Im,preserve Free 652022-08-12 00:00:00 Completed [facility] Influenza Virus Vaccine,quad Im,preserve Free 652022-08-12 00:00:00 Completed [facility] Influenza Virus Vaccine,quad Im,preserve Free 652022-08-12 00:00:00 Completed [facility] Influenza Virus Vaccine,quad Im,preserve Free 2022-08-12 00:00:00 Completed [facility] Influenza Virus Vaccine,quad Im,preserve Free 65+ 2022-08-12 00:00:00 Completed [facility] Influenza Virus Vaccine,quad Im,preserve Free 2022-08-12 00:00:00 Completed [facility] Influenza Virus Vaccine,quad Im,preserve Free 2022-08-12 00:00:00 Completed [facility] Influenza Virus Vaccine,quad Im,preserve Free 2022-08-12 00:00:00 Completed [facility] Influenza Virus Vaccine,quad Im,preserve Free 2022-08-12 00:00:00 Completed [facility] Influenza Virus Vaccine,quad Im,preserve Free 2022-08-12 00:00:00 Completed [facility] Influenza Virus Vaccine,quad Im,preserve Free 2022-08-12 00:00:00 Completed [facility] Influenza Virus Vaccine,quad Im,preserve Free 2022-08-12 00:00:00 Completed [facility] Influenza Virus Vaccine,quad Im,preserve Free 2022-08-12 00:00:00 Completed [facility] Influenza Virus Vaccine,quad Im,preserve Free 2022-08-12 00:00:00 Completed [facility] Influenza Virus Vaccine,quad Im,preserve Free 2022-08-12 00:00:00 Completed [facility] Influenza Virus Vaccine,quad Im,preserve Free 2022-08-12 00:00:00 Completed [facility] Influenza Virus Vaccine,quad Im,preserve Free 2022-08-12 00:00:00 Completed [facility] Influenza Virus Vaccine,quad Im,preserve Free 2022-08-12 00:00:00 Completed [facility] Influenza Virus Vaccine,quad Im,preserve Free 2022-08-12 00:00:00 Completed [facility] Influenza Virus Vaccine,quad Im,preserve Free 2022-08-12 00:00:00 Completed [facility] Influenza Virus Vaccine,quad Im,preserve Free 2022-08-12 00:00:00 Completed [facility] Influenza Virus Vaccine,quad Im,preserve Free 2022-08-12 00:00:00 Completed [facility] Influenza Virus Vaccine,quad Im,preserve Free 65+ 2022-08-12 00:00:00 Completed [facility] Influenza Virus Vaccine,quad Im,preserve Free 65+ 2022-08-12 00:00:00 Completed [facility] Influenza Virus Vaccine,quad Im,preserve Free 65+ 2022-08-12 00:00:00 Completed [facility] Influenza Virus Vaccine,quad Im,preserve Free 65+ (FLUAD) 2022-08-12 00:00:00 Completed [facility] Influenza Virus Vaccine,quad Im,preserve Free 65+ (FLUAD) 2022-08-12 00:00:00 Completed [facility] Influenza Virus Vaccine,quad Im,preserve Free 65+ (FLUAD) 2022-08-12 00:00:00 Completed [facility] Influenza Virus Vaccine,quad Im,preserve Free 65+ (FLUAD) 2022-08-12 00:00:00 Completed [facility] Influenza Virus Vaccine,quad Im,preserve Free 65+ (FLUAD) 2022-08-12 00:00:00 Completed [facility] Influenza High Dose Quad 2020-12-09 00:00:00 Completed [facility] Influenza High Dose Quad 2020-12-09 00:00:00 Completed [facility] Influenza High Dose Quad 2020-12-09 00:00:00 Completed [facility] Influenza High Dose Quad 2020-12-09 00:00:00 Completed [facility] Influenza High Dose Quad 2020-12-09 00:00:00 Completed [facility] Influenza High Dose Quad 2020-12-09 00:00:00 Completed [facility] Influenza High Dose Quad 2020-12-09 00:00:00 Completed [facility] Influenza High Dose Quad 2020-12-09 00:00:00 Completed [facility] Influenza High Dose Quad 2020-12-09 00:00:00 Completed [facility] Influenza High Dose Quad 2020-12-09 00:00:00 Completed [facility] Influenza High Dose Quad 2020-12-09 00:00:00 Completed [facility] Influenza High Dose Quad 2020-12-09 00:00:00 Completed [facility] Influenza High Dose Quad 2020-12-09 00:00:00 Completed [facility] Influenza High Dose Quad 2020-12-09 00:00:00 Completed [facility] Influenza High Dose Quad 2020-12-09 00:00:00 Completed [facility] Influenza High Dose Quad 2020-12-09 00:00:00 Completed [facility] Influenza High Dose Quad 2020-12-09 00:00:00 Completed [facility] Influenza High Dose Quad 2020-12-09 00:00:00 Completed [facility] Influenza High Dose Quad 2020-12-09 00:00:00 Completed [facility] Influenza High Dose Quad 2020-12-09 00:00:00 Completed [facility] Influenza High Dose Quad 2020-12-09 00:00:00 Completed [facility] Influenza High Dose Quad 2020-12-09 00:00:00 Completed [facility] Influenza High Dose Quad 2020-12-09 00:00:00 Completed [facility] Influenza High Dose Quad 2020-12-09 00:00:00 Completed [facility] Influenza High Dose Quad 2020-12-09 00:00:00 Completed [facility] Influenza High Dose Quad 2020-12-09 00:00:00 Completed [facility] Influenza High Dose Quad 2020-12-09 00:00:00 Completed [facility] Influenza High Dose Quad 2020-12-09 00:00:00 Completed [facility] Influenza High Dose Quad 2020-12-09 00:00:00 Completed [facility] Influenza High Dose Quad 2020-12-09 00:00:00 Completed [facility] Influenza High Dose Quad 2020-12-09 00:00:00 Completed [facility] Influenza High Dose Quad 2020-12-09 00:00:00 Completed [facility] Influenza High Dose Quad 2020-12-09 00:00:00 Completed [facility] Influenza High Dose Quad 2020-12-09 00:00:00 Completed [facility] Influenza High Dose Quad 2020-12-09 00:00:00 Completed [facility] Influenza High Dose Quad 2020-12-09 00:00:00 Completed [facility] Influenza High Dose Quad 2020-12-09 00:00:00 Completed [facility] Influenza High Dose Quad 2020-12-09 00:00:00 Completed [facility] Influenza High Dose Quad 2020-12-09 00:00:00 Completed [facility] Influenza High Dose Quad 2020-12-09 00:00:00 Completed [facility] Influenza High Dose Quad 2020-12-09 00:00:00 Completed [facility] Influenza High Dose Quad 2020-12-09 00:00:00 Completed [facility] Influenza High Dose Quad 2020-12-09 00:00:00 Completed [facility] Influenza High Dose Quad 2020-12-09 00:00:00 Completed [facility] Influenza High Dose Quad 2020-12-09 00:00:00 Completed [facility] Influenza High Dose Quad 2020-12-09 00:00:00 Completed [facility] Influenza High Dose Quad 2020-12-09 00:00:00 Completed [facility] Influenza High Dose Quad 2020-12-09 00:00:00 Completed [facility] Influenza High Dose Quad 2020-12-09 00:00:00 Completed [facility] Influenza High Dose Quad 2020-12-09 00:00:00 Completed [facility] Influenza High Dose Quad 2020-12-09 00:00:00 Completed [facility] Influenza High Dose Quad 2020-12-09 00:00:00 Completed [facility] Influenza High Dose Quad 2020-12-09 00:00:00 Completed [facility] Influenza High Dose Quad 2020-12-09 00:00:00 Completed [facility] Influenza High Dose Quad 2020-12-09 00:00:00 Completed [facility] Influenza High Dose Quad 2020-12-09 00:00:00 Completed [facility] Influenza High Dose Quad 2020-12-09 00:00:00 Completed [facility] Influenza High Dose Quad 2020-12-09 00:00:00 Completed [facility] Influenza High Dose Quad 2020-12-09 00:00:00 Completed [facility] Influenza High Dose Quad 2020-12-09 00:00:00 Completed [facility] Influenza High Dose Quad 2020-12-09 00:00:00 Completed [facility] Influenza High Dose Quad 2020-12-09 00:00:00 Completed [facility] Influenza High Dose Quad 2020-12-09 00:00:00 Completed [facility] Influenza High Dose Quad 2020-12-09 00:00:00 Completed [facility] Influenza High Dose Quad 2020-12-09 00:00:00 Completed [facility] Influenza High Dose Quad 2020-12-09 00:00:00 Completed [facility] Influenza High Dose Quad 2020-12-09 00:00:00 Completed [facility] Influenza High Dose Quad 2020-12-09 00:00:00 Completed [facility] Influenza High Dose Quad 2020-12-09 00:00:00 Completed [facility] Influenza High Dose Quad 2020-12-09 00:00:00 Completed [facility] Influenza High Dose Quad 2020-12-09 00:00:00 Completed [facility] Influenza High Dose Quad 2020-12-09 00:00:00 Completed [facility] Influenza High Dose Quad 2020-12-09 00:00:00 Completed [facility] Influenza High Dose Quad 2020-12-09 00:00:00 Completed [facility] Influenza High Dose Quad 2020-12-09 00:00:00 Completed [facility] Influenza High Dose Quad 2020-12-09 00:00:00 Completed [facility] Influenza High Dose Quad 2020-12-09 00:00:00 Completed [facility] Influenza High Dose Quad 2020-12-09 00:00:00 Completed [facility] Influenza High Dose Quad 2020-12-09 00:00:00 Completed [facility] Influenza High Dose Quad 2020-12-09 00:00:00 Completed [facility] Influenza High Dose Quad 2020-12-09 00:00:00 Completed [facility] Influenza High Dose Quad 2020-12-09 00:00:00 Completed [facility] Influenza High Dose Quad 2020-12-09 00:00:00 Completed [facility] Influenza High Dose Quad 2020-12-09 00:00:00 Completed [facility] Influenza High Dose Quad 2020-12-09 00:00:00 Completed [facility] Influenza High Dose Quad 2020-12-09 00:00:00 Completed [facility] Influenza High Dose Quad 2020-12-09 00:00:00 Completed [facility] Influenza High Dose Quad 2020-12-09 00:00:00 Completed [facility] Influenza High Dose Quad 2020-12-09 00:00:00 Completed [facility] Influenza High Dose Quad 2020-12-09 00:00:00 Completed [facility] Influenza High Dose Quad 2020-12-09 00:00:00 Completed [facility] Influenza High Dose Quad 2020-12-09 00:00:00 Completed [facility] Influenza High Dose Quad 2020-12-09 00:00:00 Completed [facility] Influenza High Dose Quad 2020-12-09 00:00:00 Completed [facility] Influenza High Dose Quad 2020-12-09 00:00:00 Completed [facility] Influenza High Dose Quad 2020-12-09 00:00:00 Completed [facility] Influenza High Dose Quad 2020-12-09 00:00:00 Completed [facility] Influenza High Dose Quad 2020-12-09 00:00:00 Completed [facility] Influenza High Dose Quad 2020-12-09 00:00:00 Completed [facility] Influenza High Dose Quad 2020-12-09 00:00:00 Completed [facility] Influenza High Dose Quad 2020-12-09 00:00:00 Completed [facility] Influenza High Dose Quad 2020-12-09 00:00:00 Completed [facility] Influenza High Dose Quad 2020-12-09 00:00:00 Completed [facility] Influenza High Dose Quad 2020-12-09 00:00:00 Completed [facility] Influenza High Dose Quad 2020-12-09 00:00:00 Completed [facility] Influenza High Dose Quad 2020-12-09 00:00:00 Completed [facility] Influenza High Dose Quad 2020-12-09 00:00:00 Completed [facility] Influenza High Dose Quad 2020-12-09 00:00:00 Completed [facility] Influenza High Dose Quad 2020-12-09 00:00:00 Completed [facility] Influenza High Dose Quad 2020-12-09 00:00:00 Completed [facility] Influenza High Dose Quad 2020-12-09 00:00:00 Completed [facility] Influenza High Dose Quad 2020-12-09 00:00:00 Completed [facility] Influenza High Dose Quad 2020-12-09 00:00:00 Completed [facility] Influenza High Dose Quad 2020-12-09 00:00:00 Completed [facility] Influenza High Dose Quad 2020-12-09 00:00:00 Completed [facility] Influenza High Dose Quad 2020-12-09 00:00:00 [facility] [facility] 2020-12-09 00:00:00 Completed [facility] 2020-12-09 00:00:00 Completed [facility] [employer] 2020-12-09 00:00:00 Completed [facility] 2020-12-09 00:00:00 Completed [facility] 2020-12-09 00:00:00 Completed [facility] 2020-12-09 00:00:00 Completed [facility] 2020-12-09 00:00:00 Completed [facility] 2020-12-09 00:00:00 Completed [facility] 2020-12-09 00:00:00 Completed [facility] 2020-12-09 00:00:00 Completed [facility] 2020-12-09 00:00:00 Completed [facility] [employer] 2020-12-09 00:00:00 Completed [facility] [employer] 2020-12-09 00:00:00 Completed [facility] [employer] 2020-12-09 00:00:00 Completed [facility] 2020-12-09 00:00:00 Completed [facility] 2020-12-09 00:00:00 Completed [facility] 2020-12-09 00:00:00 Completed [facility] 2020-12-09 00:00:00 Completed [facility] [employer] 2020-12-09 00:00:00 Completed [facility] 2020-12-09 00:00:00 Completed [facility] 2020-12-09 00:00:00 Completed [facility] [employer] 2020-12-09 00:00:00 Completed [facility] 2020-12-09 00:00:00 Completed [facility] 2020-12-09 00:00:00 Completed [facility] 2020-12-09 00:00:00 Completed [facility] 2020-12-09 00:00:00 Completed [facility] [employer] 2020-12-09 00:00:00 Completed [facility] [employer] 2020-12-09 00:00:00 Completed [facility] [employer] 2020-12-09 00:00:00 Completed [facility] [employer] 2020-12-09 00:00:00 Completed [facility] [employer] 2020-12-09 00:00:00 Completed [facility] 2020-12-09 00:00:00 Completed [facility] 2020-12-09 00:00:00 Completed [facility] [employer] 2020-12-09 00:00:00 Completed [facility] [employer] 2020-12-09 00:00:00 Completed [facility] [employer] 2020-12-09 00:00:00 Completed [facility] [employer] 2020-12-09 00:00:00 Completed [facility] 2020-12-09 00:00:00 Completed [facility] [employer] 2020-12-09 00:00:00 Completed [facility] [employer] 2020-12-09 00:00:00 Completed [facility] 2020-12-09 00:00:00 Completed [facility] 2020-12-09 00:00:00 Completed [facility] 2020-12-09 00:00:00 Completed [facility] 2020-12-09 00:00:00 Completed [facility] 2020-12-09 00:00:00 Completed [facility] 2020-12-09 00:00:00 Completed [facility] [employer] 2020-12-09 00:00:00 Completed [facility] 2020-12-09 00:00:00 Completed [facility] [employer] 2020-12-09 00:00:00 Completed [facility] [employer] 2020-12-09 00:00:00 Completed [facility] [employer] 2020-12-09 00:00:00 Completed [facility] 2020-12-09 00:00:00 Completed [facility] 2020-12-09 00:00:00 Completed [facility] 2020-12-09 00:00:00 Completed [facility] [employer] 2020-12-09 00:00:00 Completed [facility] 2020-12-09 00:00:00 Completed [facility] 2020-12-09 00:00:00 Completed [facility] 2020-12-09 00:00:00 Completed [facility] [employer] [facility] 2020-12-09 00:00:00 Completed [facility] 2020-12-09 00:00:00 Completed [facility] 2020-12-09 00:00:00 Completed [facility] [employer] 2020-12-09 00:00:00 Completed [facility] 2020-12-09 00:00:00 Completed [facility] 2020-12-09 00:00:00 Completed [facility] 2020-12-09 00:00:00 Completed [facility] 2020-12-09 00:00:00 Completed [facility] 2020-12-09 00:00:00 Completed [facility] 2020-12-09 00:00:00 Completed [facility] 2020-12-09 00:00:00 Completed [facility] [employer] 2020-12-09 00:00:00 Completed [facility] 2020-12-09 00:00:00 Completed [facility] [employer] 2020-12-09 00:00:00 Completed [facility] [employer] 2020-12-09 00:00:00 Completed [facility] 2020-12-09 00:00:00 Completed [facility] 2020-12-09 00:00:00 Completed [facility] 2020-12-09 00:00:00 Completed [facility] [employer] [facility] 2020-12-09 00:00:00 Completed [facility] [employer] 2020-12-09 00:00:00 Completed [facility] 2020-12-09 00:00:00 Completed [facility] [employer] 2020-12-09 00:00:00 Completed [facility] 2020-12-09 00:00:00 Completed [facility] [employer] 2020-12-09 00:00:00 Completed [facility] [employer] [facility] 2020-12-09 00:00:00 Completed [facility] [employer] 2020-12-09 00:00:00 Completed [facility] [employer] 2020-12-09 00:00:00 Completed [facility] [employer] 2020-12-09 00:00:00 Completed [facility] [employer] 2020-12-09 00:00:00 Completed [facility] [employer] 2020-12-09 00:00:00 Completed [facility] [employer] [facility] 2020-12-09 00:00:00 Completed [facility] [employer] 2020-12-09 00:00:00 Completed [facility] [employer] 2020-12-09 00:00:00 Completed [facility] [employer] 2020-12-09 00:00:00 Completed [facility] [employer] 2020-12-09 00:00:00 Completed [facility] [employer] 2020-12-09 00:00:00 Completed [facility] [employer] 2020-12-09 00:00:00 Completed [facility] [employer] 2020-12-09 00:00:00 Completed [facility] [employer] 2020-12-09 00:00:00 Completed [facility] [employer] [facility] 2020-12-09 00:00:00 Completed [facility] [employer] 2020-12-09 00:00:00 Completed [facility] [employer] 2020-12-09 00:00:00 Completed [facility] [employer] 2020-12-09 00:00:00 Completed [facility] [employer] 2020-12-09 00:00:00 Completed [facility] SARS-COV-2 COVID-19 PFIZER VACCINE 2020-10-22 00:00:00 Completed [facility] SARS-COV-2 COVID-19 PFIZER VACCINE 2020-10-22 00:00:00 Completed [facility] SARS-COV-2 COVID-19 PFIZER VACCINE 2020-10-22 00:00:00 Completed [facility] SARS-COV-2 COVID-19 PFIZER VACCINE 2020-10-22 00:00:00 Completed [facility] SARS-COV-2 COVID-19 PFIZER VACCINE 2020-10-22 00:00:00 Completed [facility] SARS-COV-2 COVID-19 PFIZER VACCINE 2020-10-22 00:00:00 Completed [facility] SARS-COV-2 COVID-19 PFIZER VACCINE 2020-10-22 00:00:00 Completed [facility] SARS-COV-2 COVID-19 PFIZER VACCINE 2020-10-22 00:00:00 Completed [facility] SARS-COV-2 COVID-19 PFIZER VACCINE 2020-10-22 00:00:00 Completed [facility] SARS-COV-2 COVID-19 PFIZER VACCINE 2020-10-22 00:00:00 Completed [facility] SARS-COV-2 COVID-19 PFIZER VACCINE 2020-10-22 00:00:00 Completed [facility] SARS-COV-2 COVID-19 PFIZER VACCINE 2020-10-22 00:00:00 Completed [facility] SARS-COV-2 COVID-19 PFIZER VACCINE 2020-10-22 00:00:00 Completed [facility] SARS-COV-2 COVID-19 PFIZER VACCINE 2020-10-22 00:00:00 Completed [facility] SARS-COV-2 COVID-19 PFIZER VACCINE 2020-10-22 00:00:00 Completed [facility] SARS-COV-2 COVID-19 PFIZER VACCINE 2020-10-22 00:00:00 Completed [facility] SARS-COV-2 COVID-19 PFIZER VACCINE 2020-10-22 00:00:00 Completed [facility] SARS-COV-2 COVID-19 PFIZER VACCINE 2020-10-22 00:00:00 Completed [facility] SARS-COV-2 COVID-19 PFIZER VACCINE 2020-10-22 00:00:00 Completed [facility] SARS-COV-2 COVID-19 PFIZER VACCINE 2020-10-22 00:00:00 Completed [facility] SARS-COV-2 COVID-19 PFIZER VACCINE 2020-10-22 00:00:00 Completed [facility] SARS-COV-2 COVID-19 PFIZER VACCINE 2020-10-22 00:00:00 Completed [facility] SARS-COV-2 COVID-19 PFIZER VACCINE 2020-10-22 00:00:00 Completed [facility] SARS-COV-2 COVID-19 PFIZER VACCINE 2020-10-22 00:00:00 Completed [facility] SARS-COV-2 COVID-19 PFIZER VACCINE 2020-10-22 00:00:00 Completed [facility] SARS-COV-2 COVID-19 PFIZER VACCINE 2020-10-22 00:00:00 Completed [facility] SARS-COV-2 COVID-19 PFIZER VACCINE 2020-10-22 00:00:00 Completed [facility] SARS-COV-2 COVID-19 PFIZER VACCINE 2020-10-22 00:00:00 Completed [facility] SARS-COV-2 COVID-19 PFIZER VACCINE 2020-10-22 00:00:00 Completed [facility] SARS-COV-2 COVID-19 PFIZER VACCINE 2020-10-22 00:00:00 Completed [facility] SARS-COV-2 COVID-19 PFIZER VACCINE 2020-10-22 00:00:00 Completed [facility] SARS-COV-2 COVID-19 PFIZER VACCINE 2020-10-22 00:00:00 Completed [facility] SARS-COV-2 COVID-19 PFIZER VACCINE 2020-10-22 00:00:00 Completed [facility] SARS-COV-2 COVID-19 PFIZER VACCINE 2020-10-22 00:00:00 Completed [facility] SARS-COV-2 COVID-19 PFIZER VACCINE 2020-10-22 00:00:00 Completed [facility] SARS-COV-2 COVID-19 PFIZER VACCINE 2020-10-22 00:00:00 Completed [facility] SARS-COV-2 COVID-19 PFIZER VACCINE 2020-10-22 00:00:00 Completed [facility] SARS-COV-2 COVID-19 PFIZER VACCINE 2020-10-22 00:00:00 Completed [facility] SARS-COV-2 COVID-19 PFIZER VACCINE 2020-10-22 00:00:00 Completed [facility] SARS-COV-2 COVID-19 PFIZER VACCINE 2020-10-22 00:00:00 Completed [facility] SARS-COV-2 COVID-19 PFIZER VACCINE 2020-10-22 00:00:00 Completed [facility] SARS-COV-2 COVID-19 PFIZER VACCINE 2020-10-22 00:00:00 Completed [facility] SARS-COV-2 COVID-19 PFIZER VACCINE 2020-10-22 00:00:00 Completed [facility] SARS-COV-2 COVID-19 PFIZER VACCINE 2020-10-22 00:00:00 Completed [facility] SARS-COV-2 COVID-19 PFIZER VACCINE 2020-10-22 00:00:00 Completed [facility] SARS-COV-2 COVID-19 PFIZER VACCINE 2020-10-22 00:00:00 Completed [facility] SARS-COV-2 COVID-19 PFIZER VACCINE 2020-10-22 00:00:00 Completed [facility] SARS-COV-2 COVID-19 PFIZER VACCINE 2020-10-22 00:00:00 Completed [facility] SARS-COV-2 COVID-19 PFIZER VACCINE 2020-10-22 00:00:00 Completed [facility] SARS-COV-2 COVID-19 PFIZER VACCINE 2020-10-22 00:00:00 Completed [facility] SARS-COV-2 COVID-19 PFIZER VACCINE 2020-10-22 00:00:00 Completed [facility] SARS-COV-2 COVID-19 PFIZER VACCINE 2020-10-22 00:00:00 Completed [facility] SARS-COV-2 COVID-19 PFIZER VACCINE 2020-10-22 00:00:00 Completed [facility] SARS-COV-2 COVID-19 PFIZER VACCINE 2020-10-22 00:00:00 Completed [facility] SARS-COV-2 COVID-19 PFIZER VACCINE 2020-10-22 00:00:00 Completed [facility] SARS-COV-2 COVID-19 PFIZER VACCINE 2020-10-22 00:00:00 Completed [facility] SARS-COV-2 COVID-19 PFIZER VACCINE 2020-10-22 00:00:00 Completed [facility] SARS-COV-2 COVID-19 PFIZER VACCINE 2020-10-22 00:00:00 Completed [facility] SARS-COV-2 COVID-19 PFIZER VACCINE 2020-10-22 00:00:00 Completed [facility] SARS-COV-2 COVID-19 PFIZER VACCINE 2020-10-22 00:00:00 Completed [facility] SARS-COV-2 COVID-19 PFIZER VACCINE 2020-10-22 00:00:00 Completed [facility] SARS-COV-2 COVID-19 PFIZER VACCINE 2020-10-22 00:00:00 Completed [facility] SARS-COV-2 COVID-19 PFIZER VACCINE 2020-10-22 00:00:00 Completed [facility] SARS-COV-2 COVID-19 PFIZER VACCINE 2020-10-22 00:00:00 Completed [facility] SARS-COV-2 COVID-19 PFIZER VACCINE 2020-10-22 00:00:00 Completed [facility] SARS-COV-2 COVID-19 PFIZER VACCINE 2020-10-22 00:00:00 Completed [facility] SARS-COV-2 COVID-19 PFIZER VACCINE 2020-10-22 00:00:00 Completed [facility] SARS-COV-2 COVID-19 PFIZER VACCINE 2020-10-22 00:00:00 Completed [facility] SARS-COV-2 COVID-19 PFIZER VACCINE 2020-10-22 00:00:00 Completed [facility] SARS-COV-2 COVID-19 PFIZER VACCINE 2020-10-22 00:00:00 Completed [facility] SARS-COV-2 COVID-19 PFIZER VACCINE 2020-10-22 00:00:00 Completed [facility] SARS-COV-2 COVID-19 PFIZER VACCINE 2020-10-22 00:00:00 Completed [facility] SARS-COV-2 COVID-19 PFIZER VACCINE 2020-10-22 00:00:00 Completed [facility] SARS-COV-2 COVID-19 PFIZER VACCINE 2020-10-22 00:00:00 Completed [facility] SARS-COV-2 COVID-19 PFIZER VACCINE 2020-10-22 00:00:00 Completed [facility] SARS-COV-2 COVID-19 PFIZER VACCINE 2020-10-22 00:00:00 Completed [facility] SARS-COV-2 COVID-19 PFIZER VACCINE 2020-10-22 00:00:00 Completed [facility] SARS-COV-2 COVID-19 PFIZER VACCINE 2020-10-22 00:00:00 Completed [facility] SARS-COV-2 COVID-19 PFIZER VACCINE 2020-10-22 00:00:00 Completed [facility] SARS-COV-2 COVID-19 PFIZER VACCINE 2020-10-22 00:00:00 Completed [facility] SARS-COV-2 COVID-19 PFIZER VACCINE 2020-10-22 00:00:00 Completed [facility] SARS-COV-2 COVID-19 PFIZER VACCINE 2020-10-22 00:00:00 Completed [facility] SARS-COV-2 COVID-19 PFIZER VACCINE 2020-10-22 00:00:00 Completed [facility] SARS-COV-2 COVID-19 PFIZER VACCINE 2020-10-22 00:00:00 Completed [facility] SARS-COV-2 COVID-19 PFIZER VACCINE 2020-10-22 00:00:00 Completed [facility] SARS-COV-2 COVID-19 PFIZER VACCINE 2020-10-22 00:00:00 Completed [facility] SARS-COV-2 COVID-19 PFIZER VACCINE 2020-10-22 00:00:00 Completed [facility] SARS-COV-2 COVID-19 PFIZER VACCINE 2020-10-22 00:00:00 Completed [facility] SARS-COV-2 COVID-19 PFIZER VACCINE 2020-10-22 00:00:00 Completed [facility] SARS-COV-2 COVID-19 PFIZER VACCINE 2020-10-22 00:00:00 Completed [facility] SARS-COV-2 COVID-19 PFIZER VACCINE 2020-10-22 00:00:00 Completed [facility] SARS-COV-2 COVID-19 PFIZER VACCINE 2020-10-22 00:00:00 Completed [facility] SARS-COV-2 COVID-19 PFIZER VACCINE 2020-10-22 00:00:00 Completed [facility] SARS-COV-2 COVID-19 PFIZER VACCINE 2020-10-22 00:00:00 Completed [facility] SARS-COV-2 COVID-19 PFIZER VACCINE 2020-10-22 00:00:00 Completed [facility] SARS-COV-2 COVID-19 PFIZER VACCINE 2020-10-22 00:00:00 Completed [facility] SARS-COV-2 COVID-19 PFIZER VACCINE 2020-10-22 00:00:00 Completed [facility] SARS-COV-2 COVID-19 PFIZER VACCINE 2020-10-22 00:00:00 Completed [facility] SARS-COV-2 COVID-19 PFIZER VACCINE 2020-10-22 00:00:00 Completed [facility] SARS-COV-2 COVID-19 PFIZER VACCINE 2020-10-22 00:00:00 Completed [facility] SARS-COV-2 COVID-19 PFIZER VACCINE 2020-10-22 00:00:00 Completed [facility] SARS-COV-2 COVID-19 PFIZER VACCINE 2020-10-22 00:00:00 Completed [facility] SARS-COV-2 COVID-19 PFIZER VACCINE 2020-10-22 00:00:00 Completed [facility] SARS-COV-2 COVID-19 PFIZER VACCINE 2020-10-22 00:00:00 Completed [facility] SARS-COV-2 COVID-19 PFIZER VACCINE 2020-10-22 00:00:00 Completed [facility] SARS-COV-2 COVID-19 PFIZER VACCINE 2020-10-22 00:00:00 Completed [facility] SARS-COV-2 COVID-19 PFIZER VACCINE 2020-10-22 00:00:00 Completed [facility] SARS-COV-2 COVID-19 PFIZER VACCINE 2020-10-22 00:00:00 Completed [facility] SARS-COV-2 COVID-19 PFIZER VACCINE 2020-10-22 00:00:00 Completed [facility] SARS-COV-2 COVID-19 PFIZER VACCINE 2020-10-22 00:00:00 Completed [facility] SARS-COV-2 COVID-19 PFIZER VACCINE 2020-10-22 00:00:00 Completed [facility] SARS-COV-2 COVID-19 PFIZER VACCINE 2020-10-22 00:00:00 Completed [facility] SARS-COV-2 COVID-19 PFIZER VACCINE 2020-10-22 00:00:00 Completed [facility] SARS-COV-2 COVID-19 PFIZER VACCINE 2020-10-22 00:00:00 Completed [facility] SARS-COV-2 COVID-19 PFIZER VACCINE 2020-10-22 00:00:00 Completed [facility] SARS-COV-2 COVID-19 PFIZER VACCINE 2020-10-22 00:00:00 Completed [facility] SARS-COV-2 COVID-19 PFIZER VACCINE 2020-10-22 00:00:00 Completed [facility] SARS-COV-2 COVID-19 PFIZER VACCINE 2020-10-22 00:00:00 Completed [facility] SARS-COV-2 COVID-19 PFIZER VACCINE 2020-10-22 00:00:00 Completed [facility] SARS-COV-2 COVID-19 PFIZER VACCINE 2020-10-22 00:00:00 Completed [facility] SARS-COV-2 COVID-19 PFIZER VACCINE 2020-10-22 00:00:00 Completed [facility] SARS-COV-2 COVID-19 PFIZER VACCINE 2020-10-22 00:00:00 Completed [facility] SARS-COV-2 COVID-19 PFIZER VACCINE 2020-10-22 00:00:00 Completed [facility] SARS-COV-2 COVID-19 PFIZER VACCINE 2020-10-22 00:00:00 Completed [facility] SARS-COV-2 COVID-19 PFIZER VACCINE 2020-10-22 00:00:00 Completed [facility] SARS-COV-2 COVID-19 PFIZER VACCINE 2020-10-22 00:00:00 Completed [facility] SARS-COV-2 COVID-19 PFIZER VACCINE 2020-10-22 00:00:00 Completed [facility] SARS-COV-2 COVID-19 PFIZER VACCINE 2020-10-22 00:00:00 Completed [facility] SARS-COV-2 COVID-19 PFIZER VACCINE 2020-10-22 00:00:00 Completed [facility] SARS-COV-2 COVID-19 PFIZER VACCINE 2020-10-22 00:00:00 Completed [facility] SARS-COV-2 COVID-19 PFIZER VACCINE 2020-10-22 00:00:00 Completed [facility] SARS-COV-2 COVID-19 PFIZER VACCINE 2020-10-22 00:00:00 Completed [facility] SARS-COV-2 COVID-19 PFIZER VACCINE 2020-10-22 00:00:00 Completed [facility] SARS-COV-2 COVID-19 PFIZER VACCINE 2020-10-22 00:00:00 Completed [facility] SARS-COV-2 COVID-19 PFIZER VACCINE 2020-10-22 00:00:00 Completed [facility] SARS-COV-2 COVID-19 PFIZER VACCINE 2020-10-22 00:00:00 Completed [facility] SARS-COV-2 COVID-19 PFIZER VACCINE 2020-10-22 00:00:00 Completed [facility] SARS-COV-2 COVID-19 PFIZER VACCINE 2020-10-22 00:00:00 Completed [facility] SARS-COV-2 COVID-19 PFIZER VACCINE 2020-10-22 00:00:00 Completed [facility] SARS-COV-2 COVID-19 PFIZER VACCINE 2020-10-22 00:00:00 Completed [facility] SARS-COV-2 COVID-19 PFIZER VACCINE 2020-10-22 00:00:00 Completed [facility] SARS-COV-2 COVID-19 PFIZER VACCINE 2020-10-22 00:00:00 Completed [facility] SARS-COV-2 COVID-19 PFIZER VACCINE 2020-10-22 00:00:00 Completed [facility] SARS-COV-2 COVID-19 PFIZER VACCINE 2020-10-22 00:00:00 Completed [facility] SARS-COV-2 COVID-19 PFIZER VACCINE 2020-10-22 00:00:00 Completed [facility] SARS-COV-2 COVID-19 PFIZER VACCINE 2020-10-22 00:00:00 Completed [facility] SARS-COV-2 COVID-19 PFIZER VACCINE 2020-10-22 00:00:00 Completed [facility] SARS-COV-2 COVID-19 PFIZER VACCINE 2020-10-22 00:00:00 Completed [facility] SARS-COV-2 COVID-19 PFIZER VACCINE 2020-10-22 00:00:00 Completed [facility] SARS-COV-2 COVID-19 PFIZER VACCINE 2020-10-22 00:00:00 Completed [facility] SARS-COV-2 COVID-19 PFIZER VACCINE 2020-10-22 00:00:00 Completed [facility] SARS-COV-2 COVID-19 PFIZER VACCINE 2020-10-22 00:00:00 Completed [facility] SARS-COV-2 COVID-19 PFIZER VACCINE 2020-10-22 00:00:00 Completed [facility] SARS-COV-2 COVID-19 PFIZER VACCINE 2020-10-22 00:00:00 Completed [facility] SARS-COV-2 COVID-19 PFIZER VACCINE 2020-10-22 00:00:00 Completed [facility] SARS-COV-2 COVID-19 PFIZER VACCINE 2020-10-22 00:00:00 Completed [facility] SARS-COV-2 COVID-19 PFIZER VACCINE 2020-10-22 00:00:00 Completed [facility] SARS-COV-2 COVID-19 PFIZER VACCINE 2020-10-22 00:00:00 Completed [facility] SARS-COV-2 COVID-19 PFIZER VACCINE 2020-10-22 00:00:00 Completed [facility] SARS-COV-2 COVID-19 PFIZER VACCINE 2020-10-22 00:00:00 Completed [facility] SARS-COV-2 COVID-19 PFIZER VACCINE 2020-10-22 00:00:00 Completed [facility] SARS-COV-2 COVID-19 PFIZER VACCINE 2020-10-22 00:00:00 Completed [facility] SARS-COV-2 COVID-19 PFIZER VACCINE 2020-10-22 00:00:00 Completed [facility] SARS-COV-2 COVID-19 PFIZER VACCINE 2020-10-22 00:00:00 Completed [facility] SARS-COV-2 COVID-19 PFIZER VACCINE 2020-10-22 00:00:00 Completed [facility] SARS-COV-2 COVID-19 PFIZER VACCINE 2020-10-22 00:00:00 Completed [facility] SARS-COV-2 COVID-19 PFIZER VACCINE 2020-10-22 00:00:00 Completed [facility] SARS-COV-2 COVID-19 PFIZER VACCINE 2020-10-22 00:00:00 Completed [facility] SARS-COV-2 COVID-19 PFIZER VACCINE 2020-10-22 00:00:00 Completed [facility] SARS-COV-2 COVID-19 PFIZER VACCINE 2020-10-22 00:00:00 Completed [facility] SARS-COV-2 COVID-19 PFIZER VACCINE 2020-10-22 00:00:00 Completed [facility] SARS-COV-2 COVID-19 PFIZER VACCINE 2020-10-22 00:00:00 Completed [facility] SARS-COV-2 COVID-19 PFIZER VACCINE 2020-10-22 00:00:00 Completed [facility] SARS-COV-2 COVID-19 PFIZER VACCINE 2020-10-22 00:00:00 Completed [facility] SARS-COV-2 COVID-19 PFIZER VACCINE 2020-10-22 00:00:00 Completed [facility] SARS-COV-2 COVID-19 PFIZER VACCINE 2020-10-22 00:00:00 Completed [facility] SARS-COV-2 COVID-19 PFIZER VACCINE 2020-10-22 00:00:00 Completed [facility] SARS-COV-2 COVID-19 PFIZER VACCINE 2020-10-22 00:00:00 Completed [facility] SARS-COV-2 COVID-19 PFIZER VACCINE 2020-10-22 00:00:00 Completed [facility] SARS-COV-2 COVID-19 PFIZER VACCINE 2020-10-22 00:00:00 Completed [facility] SARS-COV-2 COVID-19 PFIZER VACCINE 2020-10-22 00:00:00 Completed [facility] SARS-COV-2 COVID-19 PFIZER VACCINE 2020-10-22 00:00:00 Completed [facility] SARS-COV-2 COVID-19 PFIZER VACCINE 2020-10-22 00:00:00 Completed [facility] SARS-COV-2 COVID-19 PFIZER VACCINE 2020-10-22 00:00:00 Completed [facility] SARS-COV-2 COVID-19 PFIZER VACCINE 2020-10-22 00:00:00 Completed [facility] SARS-COV-2 COVID-19 PFIZER VACCINE 2020-10-22 00:00:00 Completed [facility] SARS-COV-2 COVID-19 PFIZER VACCINE 2020-10-22 00:00:00 Completed [facility] SARS-COV-2 COVID-19 PFIZER VACCINE 2020-10-22 00:00:00 Completed [facility] SARS-COV-2 COVID-19 PFIZER VACCINE 2020-10-22 00:00:00 Completed [facility] SARS-COV-2 COVID-19 PFIZER VACCINE 2020-10-22 00:00:00 Completed [facility] SARS-COV-2 COVID-19 PFIZER VACCINE 2020-10-22 00:00:00 Completed [facility] SARS-COV-2 COVID-19 PFIZER VACCINE 2020-10-22 00:00:00 Completed [facility] SARS-COV-2 COVID-19 PFIZER VACCINE 2020-10-22 00:00:00 Completed [facility] SARS-COV-2 COVID-19 PFIZER VACCINE 2020-10-22 00:00:00 Completed [facility] SARS-COV-2 COVID-19 PFIZER VACCINE 2020-10-22 00:00:00 Completed [facility] SARS-COV-2 COVID-19 PFIZER VACCINE 2020-10-22 00:00:00 Completed [facility] SARS-COV-2 COVID-19 PFIZER VACCINE 2020-10-22 00:00:00 Completed [facility] SARS-COV-2 COVID-19 PFIZER VACCINE 2020-10-22 00:00:00 Completed [facility] SARS-COV-2 COVID-19 PFIZER VACCINE 2020-10-22 00:00:00 Completed [facility] SARS-COV-2 COVID-19 PFIZER VACCINE 2020-10-22 00:00:00 Completed [facility] SARS-COV-2 COVID-19 PFIZER VACCINE 2020-10-22 00:00:00 Completed [facility] SARS-COV-2 COVID-19 PFIZER VACCINE 2020-10-22 00:00:00 Completed [facility] SARS-COV-2 COVID-19 PFIZER VACCINE 2020-10-22 00:00:00 Completed [facility] SARS-COV-2 COVID-19 PFIZER VACCINE 2020-10-22 00:00:00 Completed [facility] SARS-COV-2 COVID-19 PFIZER VACCINE 2020-10-22 00:00:00 Completed [facility] SARS-COV-2 COVID-19 PFIZER VACCINE 2020-10-22 00:00:00 Completed [facility] SARS-COV-2 COVID-19 PFIZER VACCINE 2020-10-22 00:00:00 Completed [facility] SARS-COV-2 COVID-19 PFIZER VACCINE 2020-10-22 00:00:00 Completed [facility] SARS-COV-2 COVID-19 PFIZER VACCINE 2020-10-22 00:00:00 Completed [facility] SARS-COV-2 COVID-19 PFIZER VACCINE 2020-10-22 00:00:00 Completed [facility] SARS-COV-2 COVID-19 PFIZER VACCINE 2020-10-22 00:00:00 Completed [facility] SARS-COV-2 COVID-19 PFIZER VACCINE 2020-10-22 00:00:00 Completed [facility] SARS-COV-2 COVID-19 PFIZER VACCINE 2020-10-22 00:00:00 Completed [facility] SARS-COV-2 COVID-19 PFIZER VACCINE 2020-10-22 00:00:00 Completed [facility] SARS-COV-2 COVID-19 PFIZER VACCINE 2020-10-22 00:00:00 Completed [facility] SARS-COV-2 COVID-19 PFIZER VACCINE 2020-10-22 00:00:00 Completed [facility] SARS-COV-2 COVID-19 PFIZER VACCINE 2020-10-22 00:00:00 Completed [facility] SARS-COV-2 COVID-19 PFIZER VACCINE 2020-10-22 00:00:00 Completed [facility] SARS-COV-2 COVID-19 PFIZER VACCINE 2020-10-01 00:00:00 Completed [facility] SARS-COV-2 COVID-19 PFIZER VACCINE 2020-10-01 00:00:00 Completed [facility] SARS-COV-2 COVID-19 PFIZER VACCINE 2020-10-01 00:00:00 Completed [facility] SARS-COV-2 COVID-19 PFIZER VACCINE 2020-10-01 00:00:00 Completed [facility] SARS-COV-2 COVID-19 PFIZER VACCINE 2020-10-01 00:00:00 Completed [facility] SARS-COV-2 COVID-19 PFIZER VACCINE 2020-10-01 00:00:00 Completed [facility] SARS-COV-2 COVID-19 PFIZER VACCINE 2020-10-01 00:00:00 Completed [facility] SARS-COV-2 COVID-19 PFIZER VACCINE 2020-10-01 00:00:00 Completed [facility] SARS-COV-2 COVID-19 PFIZER VACCINE 2020-10-01 00:00:00 Completed [facility] SARS-COV-2 COVID-19 PFIZER VACCINE 2020-10-01 00:00:00 Completed [facility] SARS-COV-2 COVID-19 PFIZER VACCINE 2020-10-01 00:00:00 Completed [facility] SARS-COV-2 COVID-19 PFIZER VACCINE 2020-10-01 00:00:00 Completed [facility] SARS-COV-2 COVID-19 PFIZER VACCINE 2020-10-01 00:00:00 Completed [facility] SARS-COV-2 COVID-19 PFIZER VACCINE 2020-10-01 00:00:00 Completed [facility] SARS-COV-2 COVID-19 PFIZER VACCINE 2020-10-01 00:00:00 Completed [facility] SARS-COV-2 COVID-19 PFIZER VACCINE 2020-10-01 00:00:00 Completed [facility] SARS-COV-2 COVID-19 PFIZER VACCINE 2020-10-01 00:00:00 Completed [facility] SARS-COV-2 COVID-19 PFIZER VACCINE 2020-10-01 00:00:00 Completed [facility] SARS-COV-2 COVID-19 PFIZER VACCINE 2020-10-01 00:00:00 Completed [facility] SARS-COV-2 COVID-19 PFIZER VACCINE 2020-10-01 00:00:00 Completed [facility] SARS-COV-2 COVID-19 PFIZER VACCINE 2020-10-01 00:00:00 Completed [facility] SARS-COV-2 COVID-19 PFIZER VACCINE 2020-10-01 00:00:00 Completed [facility] SARS-COV-2 COVID-19 PFIZER VACCINE 2020-10-01 00:00:00 Completed [facility] SARS-COV-2 COVID-19 PFIZER VACCINE 2020-10-01 00:00:00 Completed [facility] SARS-COV-2 COVID-19 PFIZER VACCINE 2020-10-01 00:00:00 Completed [facility] SARS-COV-2 COVID-19 PFIZER VACCINE 2020-10-01 00:00:00 Completed [facility] SARS-COV-2 COVID-19 PFIZER VACCINE 2020-10-01 00:00:00 Completed [facility] SARS-COV-2 COVID-19 PFIZER VACCINE 2020-10-01 00:00:00 Completed [facility] SARS-COV-2 COVID-19 PFIZER VACCINE 2020-10-01 00:00:00 Completed [facility] SARS-COV-2 COVID-19 PFIZER VACCINE 2020-10-01 00:00:00 Completed [facility] SARS-COV-2 COVID-19 PFIZER VACCINE 2020-10-01 00:00:00 Completed [facility] SARS-COV-2 COVID-19 PFIZER VACCINE 2020-10-01 00:00:00 Completed [facility] SARS-COV-2 COVID-19 PFIZER VACCINE 2020-10-01 00:00:00 Completed [facility] SARS-COV-2 COVID-19 PFIZER VACCINE 2020-10-01 00:00:00 Completed [facility] SARS-COV-2 COVID-19 PFIZER VACCINE 2020-10-01 00:00:00 Completed [facility] SARS-COV-2 COVID-19 PFIZER VACCINE 2020-10-01 00:00:00 Completed [facility] SARS-COV-2 COVID-19 PFIZER VACCINE 2020-10-01 00:00:00 Completed [facility] SARS-COV-2 COVID-19 PFIZER VACCINE 2020-10-01 00:00:00 Completed [facility] SARS-COV-2 COVID-19 PFIZER VACCINE 2020-10-01 00:00:00 Completed [facility] SARS-COV-2 COVID-19 PFIZER VACCINE 2020-10-01 00:00:00 Completed [facility] SARS-COV-2 COVID-19 PFIZER VACCINE 2020-10-01 00:00:00 Completed [facility] SARS-COV-2 COVID-19 PFIZER VACCINE 2020-10-01 00:00:00 Completed [facility] SARS-COV-2 COVID-19 PFIZER VACCINE 2020-10-01 00:00:00 Completed [facility] SARS-COV-2 COVID-19 PFIZER VACCINE 2020-10-01 00:00:00 Completed [facility] SARS-COV-2 COVID-19 PFIZER VACCINE 2020-10-01 00:00:00 Completed [facility] SARS-COV-2 COVID-19 PFIZER VACCINE 2020-10-01 00:00:00 Completed [facility] SARS-COV-2 COVID-19 PFIZER VACCINE 2020-10-01 00:00:00 Completed [facility] SARS-COV-2 COVID-19 PFIZER VACCINE 2020-10-01 00:00:00 Completed [facility] SARS-COV-2 COVID-19 PFIZER VACCINE 2020-10-01 00:00:00 Completed [facility] SARS-COV-2 COVID-19 PFIZER VACCINE 2020-10-01 00:00:00 Completed [facility] SARS-COV-2 COVID-19 PFIZER VACCINE 2020-10-01 00:00:00 Completed [facility] SARS-COV-2 COVID-19 PFIZER VACCINE 2020-10-01 00:00:00 Completed [facility] SARS-COV-2 COVID-19 PFIZER VACCINE 2020-10-01 00:00:00 Completed [facility] SARS-COV-2 COVID-19 PFIZER VACCINE 2020-10-01 00:00:00 Completed [facility] SARS-COV-2 COVID-19 PFIZER VACCINE 2020-10-01 00:00:00 Completed [facility] SARS-COV-2 COVID-19 PFIZER VACCINE 2020-10-01 00:00:00 Completed [facility] SARS-COV-2 COVID-19 PFIZER VACCINE 2020-10-01 00:00:00 Completed [facility] SARS-COV-2 COVID-19 PFIZER VACCINE 2020-10-01 00:00:00 Completed [facility] SARS-COV-2 COVID-19 PFIZER VACCINE 2020-10-01 00:00:00 Completed [facility] SARS-COV-2 COVID-19 PFIZER VACCINE 2020-10-01 00:00:00 Completed [facility] SARS-COV-2 COVID-19 PFIZER VACCINE 2020-10-01 00:00:00 Completed [facility] SARS-COV-2 COVID-19 PFIZER VACCINE 2020-10-01 00:00:00 Completed [facility] SARS-COV-2 COVID-19 PFIZER VACCINE 2020-10-01 00:00:00 Completed [facility] SARS-COV-2 COVID-19 PFIZER VACCINE 2020-10-01 00:00:00 Completed [facility] SARS-COV-2 COVID-19 PFIZER VACCINE 2020-10-01 00:00:00 Completed [facility] SARS-COV-2 COVID-19 PFIZER VACCINE 2020-10-01 00:00:00 Completed [facility] SARS-COV-2 COVID-19 PFIZER VACCINE 2020-10-01 00:00:00 Completed [facility] SARS-COV-2 COVID-19 PFIZER VACCINE 2020-10-01 00:00:00 Completed [facility] SARS-COV-2 COVID-19 PFIZER VACCINE 2020-10-01 00:00:00 Completed [facility] SARS-COV-2 COVID-19 PFIZER VACCINE 2020-10-01 00:00:00 Completed [facility] SARS-COV-2 COVID-19 PFIZER VACCINE 2020-10-01 00:00:00 Completed [facility] SARS-COV-2 COVID-19 PFIZER VACCINE 2020-10-01 00:00:00 Completed [facility] SARS-COV-2 COVID-19 PFIZER VACCINE 2020-10-01 00:00:00 Completed [facility] SARS-COV-2 COVID-19 PFIZER VACCINE 2020-10-01 00:00:00 Completed [facility] SARS-COV-2 COVID-19 PFIZER VACCINE 2020-10-01 00:00:00 Completed [facility] SARS-COV-2 COVID-19 PFIZER VACCINE 2020-10-01 00:00:00 Completed [facility] SARS-COV-2 COVID-19 PFIZER VACCINE 2020-10-01 00:00:00 Completed [facility] SARS-COV-2 COVID-19 PFIZER VACCINE 2020-10-01 00:00:00 Completed [facility] SARS-COV-2 COVID-19 PFIZER VACCINE 2020-10-01 00:00:00 Completed [facility] SARS-COV-2 COVID-19 PFIZER VACCINE 2020-10-01 00:00:00 Completed [facility] SARS-COV-2 COVID-19 PFIZER VACCINE 2020-10-01 00:00:00 Completed [facility] SARS-COV-2 COVID-19 PFIZER VACCINE 2020-10-01 00:00:00 Completed [facility] SARS-COV-2 COVID-19 PFIZER VACCINE 2020-10-01 00:00:00 Completed [facility] SARS-COV-2 COVID-19 PFIZER VACCINE 2020-10-01 00:00:00 Completed [facility] SARS-COV-2 COVID-19 PFIZER VACCINE 2020-10-01 00:00:00 Completed [facility] SARS-COV-2 COVID-19 PFIZER VACCINE 2020-10-01 00:00:00 Completed [facility] SARS-COV-2 COVID-19 PFIZER VACCINE 2020-10-01 00:00:00 Completed [facility] SARS-COV-2 COVID-19 PFIZER VACCINE 2020-10-01 00:00:00 Completed [facility] SARS-COV-2 COVID-19 PFIZER VACCINE 2020-10-01 00:00:00 Completed [facility] SARS-COV-2 COVID-19 PFIZER VACCINE 2020-10-01 00:00:00 Completed [facility] SARS-COV-2 COVID-19 PFIZER VACCINE 2020-10-01 00:00:00 Completed [facility] SARS-COV-2 COVID-19 PFIZER VACCINE 2020-10-01 00:00:00 Completed [facility] SARS-COV-2 COVID-19 PFIZER VACCINE 2020-10-01 00:00:00 Completed [facility] SARS-COV-2 COVID-19 PFIZER VACCINE 2020-10-01 00:00:00 Completed [facility] SARS-COV-2 COVID-19 PFIZER VACCINE 2020-10-01 00:00:00 Completed [facility] SARS-COV-2 COVID-19 PFIZER VACCINE 2020-10-01 00:00:00 Completed [facility] SARS-COV-2 COVID-19 PFIZER VACCINE 2020-10-01 00:00:00 Completed [facility] SARS-COV-2 COVID-19 PFIZER VACCINE 2020-10-01 00:00:00 Completed [facility] SARS-COV-2 COVID-19 PFIZER VACCINE 2020-10-01 00:00:00 Completed [facility] SARS-COV-2 COVID-19 PFIZER VACCINE 2020-10-01 00:00:00 Completed [facility] SARS-COV-2 COVID-19 PFIZER VACCINE 2020-10-01 00:00:00 Completed [facility] SARS-COV-2 COVID-19 PFIZER VACCINE 2020-10-01 00:00:00 Completed [facility] SARS-COV-2 COVID-19 PFIZER VACCINE 2020-10-01 00:00:00 Completed [facility] SARS-COV-2 COVID-19 PFIZER VACCINE 2020-10-01 00:00:00 Completed [facility] SARS-COV-2 COVID-19 PFIZER VACCINE 2020-10-01 00:00:00 Completed [facility] SARS-COV-2 COVID-19 PFIZER VACCINE 2020-10-01 00:00:00 Completed [facility] SARS-COV-2 COVID-19 PFIZER VACCINE 2020-10-01 00:00:00 Completed [facility] SARS-COV-2 COVID-19 PFIZER VACCINE 2020-10-01 00:00:00 Completed [facility] SARS-COV-2 COVID-19 PFIZER VACCINE 2020-10-01 00:00:00 Completed [facility] SARS-COV-2 COVID-19 PFIZER VACCINE 2020-10-01 00:00:00 Completed [facility] SARS-COV-2 COVID-19 PFIZER VACCINE 2020-10-01 00:00:00 Completed [facility] SARS-COV-2 COVID-19 PFIZER VACCINE 2020-10-01 00:00:00 Completed [facility] SARS-COV-2 COVID-19 PFIZER VACCINE 2020-10-01 00:00:00 Completed [facility] SARS-COV-2 COVID-19 PFIZER VACCINE 2020-10-01 00:00:00 Completed [facility] SARS-COV-2 COVID-19 PFIZER VACCINE 2020-10-01 00:00:00 Completed [facility] SARS-COV-2 COVID-19 PFIZER VACCINE 2020-10-01 00:00:00 Completed [facility] SARS-COV-2 COVID-19 PFIZER VACCINE 2020-10-01 00:00:00 Completed [facility] SARS-COV-2 COVID-19 PFIZER VACCINE 2020-10-01 00:00:00 Completed [facility] SARS-COV-2 COVID-19 PFIZER VACCINE 2020-10-01 00:00:00 Completed [facility] SARS-COV-2 COVID-19 PFIZER VACCINE 2020-10-01 00:00:00 Completed [facility] SARS-COV-2 COVID-19 PFIZER VACCINE 2020-10-01 00:00:00 Completed [facility] SARS-COV-2 COVID-19 PFIZER VACCINE 2020-10-01 00:00:00 Completed [facility] SARS-COV-2 COVID-19 PFIZER VACCINE 2020-10-01 00:00:00 Completed [facility] SARS-COV-2 COVID-19 PFIZER VACCINE 2020-10-01 00:00:00 Completed [facility] SARS-COV-2 COVID-19 PFIZER VACCINE 2020-10-01 00:00:00 Completed [facility] SARS-COV-2 COVID-19 PFIZER VACCINE 2020-10-01 00:00:00 Completed [facility] SARS-COV-2 COVID-19 PFIZER VACCINE 2020-10-01 00:00:00 Completed [facility] SARS-COV-2 COVID-19 PFIZER VACCINE 2020-10-01 00:00:00 Completed [facility] SARS-COV-2 COVID-19 PFIZER VACCINE 2020-10-01 00:00:00 Completed [facility] SARS-COV-2 COVID-19 PFIZER VACCINE 2020-10-01 00:00:00 Completed [facility] SARS-COV-2 COVID-19 PFIZER VACCINE 2020-10-01 00:00:00 Completed [facility] SARS-COV-2 COVID-19 PFIZER VACCINE 2020-10-01 00:00:00 Completed [facility] SARS-COV-2 COVID-19 PFIZER VACCINE 2020-10-01 00:00:00 Completed [facility] SARS-COV-2 COVID-19 PFIZER VACCINE 2020-10-01 00:00:00 Completed [facility] SARS-COV-2 COVID-19 PFIZER VACCINE 2020-10-01 00:00:00 Completed [facility] SARS-COV-2 COVID-19 PFIZER VACCINE 2020-10-01 00:00:00 Completed [facility] SARS-COV-2 COVID-19 PFIZER VACCINE 2020-10-01 00:00:00 Completed [facility] SARS-COV-2 COVID-19 PFIZER VACCINE 2020-10-01 00:00:00 Completed [facility] SARS-COV-2 COVID-19 PFIZER VACCINE 2020-10-01 00:00:00 Completed [facility] SARS-COV-2 COVID-19 PFIZER VACCINE 2020-10-01 00:00:00 Completed [facility] SARS-COV-2 COVID-19 PFIZER VACCINE 2020-10-01 00:00:00 Completed [facility] SARS-COV-2 COVID-19 PFIZER VACCINE 2020-10-01 00:00:00 Completed [facility] SARS-COV-2 COVID-19 PFIZER VACCINE 2020-10-01 00:00:00 Completed [facility] SARS-COV-2 COVID-19 PFIZER VACCINE 2020-10-01 00:00:00 Completed [facility] SARS-COV-2 COVID-19 PFIZER VACCINE 2020-10-01 00:00:00 Completed [facility] SARS-COV-2 COVID-19 PFIZER VACCINE 2020-10-01 00:00:00 Completed [facility] SARS-COV-2 COVID-19 PFIZER VACCINE 2020-10-01 00:00:00 Completed [facility] SARS-COV-2 COVID-19 PFIZER VACCINE 2020-10-01 00:00:00 Completed [facility] SARS-COV-2 COVID-19 PFIZER VACCINE 2020-10-01 00:00:00 Completed [facility] SARS-COV-2 COVID-19 PFIZER VACCINE 2020-10-01 00:00:00 Completed [facility] SARS-COV-2 COVID-19 PFIZER VACCINE 2020-10-01 00:00:00 Completed [facility] SARS-COV-2 COVID-19 PFIZER VACCINE 2020-10-01 00:00:00 Completed [facility] SARS-COV-2 COVID-19 PFIZER VACCINE 2020-10-01 00:00:00 Completed [facility] SARS-COV-2 COVID-19 PFIZER VACCINE 2020-10-01 00:00:00 Completed [facility] SARS-COV-2 COVID-19 PFIZER VACCINE 2020-10-01 00:00:00 Completed [facility] SARS-COV-2 COVID-19 PFIZER VACCINE 2020-10-01 00:00:00 Completed [facility] SARS-COV-2 COVID-19 PFIZER VACCINE 2020-10-01 00:00:00 Completed [facility] SARS-COV-2 COVID-19 PFIZER VACCINE 2020-10-01 00:00:00 Completed [facility] SARS-COV-2 COVID-19 PFIZER VACCINE 2020-10-01 00:00:00 Completed [facility] SARS-COV-2 COVID-19 PFIZER VACCINE 2020-10-01 00:00:00 Completed [facility] SARS-COV-2 COVID-19 PFIZER VACCINE 2020-10-01 00:00:00 Completed [facility] SARS-COV-2 COVID-19 PFIZER VACCINE 2020-10-01 00:00:00 Completed [facility] SARS-COV-2 COVID-19 PFIZER VACCINE 2020-10-01 00:00:00 Completed [facility] SARS-COV-2 COVID-19 PFIZER VACCINE 2020-10-01 00:00:00 Completed [facility] SARS-COV-2 COVID-19 PFIZER VACCINE 2020-10-01 00:00:00 Completed [facility] SARS-COV-2 COVID-19 PFIZER VACCINE 2020-10-01 00:00:00 Completed [facility] SARS-COV-2 COVID-19 PFIZER VACCINE 2020-10-01 00:00:00 Completed [facility] SARS-COV-2 COVID-19 PFIZER VACCINE 2020-10-01 00:00:00 Completed [facility] SARS-COV-2 COVID-19 PFIZER VACCINE 2020-10-01 00:00:00 Completed [facility] SARS-COV-2 COVID-19 PFIZER VACCINE 2020-10-01 00:00:00 Completed [facility] SARS-COV-2 COVID-19 PFIZER VACCINE 2020-10-01 00:00:00 Completed [facility] SARS-COV-2 COVID-19 PFIZER VACCINE 2020-10-01 00:00:00 Completed [facility] SARS-COV-2 COVID-19 PFIZER VACCINE 2020-10-01 00:00:00 Completed [facility] SARS-COV-2 COVID-19 PFIZER VACCINE 2020-10-01 00:00:00 Completed [facility] SARS-COV-2 COVID-19 PFIZER VACCINE 2020-10-01 00:00:00 Completed [facility] SARS-COV-2 COVID-19 PFIZER VACCINE 2020-10-01 00:00:00 Completed [facility] SARS-COV-2 COVID-19 PFIZER VACCINE 2020-10-01 00:00:00 Completed [facility] SARS-COV-2 COVID-19 PFIZER VACCINE 2020-10-01 00:00:00 Completed [facility] SARS-COV-2 COVID-19 PFIZER VACCINE 2020-10-01 00:00:00 Completed [facility] SARS-COV-2 COVID-19 PFIZER VACCINE 2020-10-01 00:00:00 Completed [facility] SARS-COV-2 COVID-19 PFIZER VACCINE 2020-10-01 00:00:00 Completed [facility] SARS-COV-2 COVID-19 PFIZER VACCINE 2020-10-01 00:00:00 Completed [facility] SARS-COV-2 COVID-19 PFIZER VACCINE 2020-10-01 00:00:00 Completed [facility] SARS-COV-2 COVID-19 PFIZER VACCINE 2020-10-01 00:00:00 Completed [facility] SARS-COV-2 COVID-19 PFIZER VACCINE 2020-10-01 00:00:00 Completed [facility] SARS-COV-2 COVID-19 PFIZER VACCINE 2020-10-01 00:00:00 Completed [facility] SARS-COV-2 COVID-19 PFIZER VACCINE 2020-10-01 00:00:00 Completed [facility] SARS-COV-2 COVID-19 PFIZER VACCINE 2020-10-01 00:00:00 Completed [facility] SARS-COV-2 COVID-19 PFIZER VACCINE 2020-10-01 00:00:00 Completed [facility] SARS-COV-2 COVID-19 PFIZER VACCINE 2020-10-01 00:00:00 Completed [facility] SARS-COV-2 COVID-19 PFIZER VACCINE 2020-10-01 00:00:00 Completed [facility] SARS-COV-2 COVID-19 PFIZER VACCINE 2020-10-01 00:00:00 Completed [facility] SARS-COV-2 COVID-19 PFIZER VACCINE 2020-10-01 00:00:00 Completed [facility] SARS-COV-2 COVID-19 PFIZER VACCINE 2020-10-01 00:00:00 Completed [facility] SARS-COV-2 COVID-19 PFIZER VACCINE 2020-10-01 00:00:00 Completed [facility] SARS-COV-2 COVID-19 PFIZER VACCINE 2020-10-01 00:00:00 Completed [facility] [facility] SARS-COV-2 COVID-19 PFIZER VACCINE 2020-10-01 00:00:00 Completed [facility] SARS-COV-2 COVID-19 PFIZER VACCINE 2020-10-01 00:00:00 Completed [facility] SARS-COV-2 COVID-19 PFIZER VACCINE 2020-10-01 00:00:00 Completed [facility] SARS-COV-2 COVID-19 PFIZER VACCINE 2020-10-01 00:00:00 Completed [facility] SARS-COV-2 COVID-19 PFIZER VACCINE 2020-10-01 00:00:00 Completed [facility] SARS-COV-2 COVID-19 PFIZER VACCINE 2020-10-01 00:00:00 Completed [facility] SARS-COV-2 COVID-19 PFIZER VACCINE 2020-10-01 00:00:00 Completed [facility] SARS-COV-2 COVID-19 PFIZER VACCINE 2020-10-01 00:00:00 Completed [facility] SARS-COV-2 COVID-19 PFIZER VACCINE 2020-10-01 00:00:00 Completed [facility] SARS-COV-2 COVID-19 PFIZER VACCINE 2020-10-01 00:00:00 Completed [facility] SARS-COV-2 COVID-19 PFIZER VACCINE 2020-10-01 00:00:00 Completed [facility] SARS-COV-2 COVID-19 PFIZER VACCINE 2020-10-01 00:00:00 Completed [facility] SARS-COV-2 COVID-19 PFIZER VACCINE 2020-10-01 00:00:00 Completed [facility] SARS-COV-2 COVID-19 PFIZER VACCINE 2020-10-01 00:00:00 Completed [facility] SARS-COV-2 COVID-19 PFIZER VACCINE 2020-10-01 00:00:00 Completed [facility] SARS-COV-2 COVID-19 PFIZER VACCINE 2020-10-01 00:00:00 Completed [facility] SARS-COV-2 COVID-19 PFIZER VACCINE 2020-10-01 00:00:00 Completed [facility] SARS-COV-2 COVID-19 PFIZER VACCINE 2020-10-01 00:00:00 Completed [facility] SARS-COV-2 COVID-19 PFIZER VACCINE 2020-10-01 00:00:00 Completed [facility] SARS-COV-2 COVID-19 PFIZER VACCINE 2020-10-01 00:00:00 Completed [facility] SARS-COV-2 COVID-19 PFIZER VACCINE 2020-10-01 00:00:00 Completed [facility] SARS-COV-2 COVID-19 PFIZER VACCINE 2020-10-01 00:00:00 Completed [facility] TDAP 2018-11-04 00:00:00 Completed [facility] Pneumococcal 13 Conjugate, PCV13 (Prevnar 13) 2018-11-04 00:00:00 Completed [facility] TDAP 2018-11-04 00:00:00 Completed [facility] Pneumococcal 13 Conjugate, PCV13 (Prevnar 13) 2018-11-04 00:00:00 Completed [facility] TDAP 2018-11-04 00:00:00 Completed [facility] Pneumococcal 13 Conjugate, PCV13 (Prevnar 13) 2018-11-04 00:00:00 Completed [facility] TDAP 2018-11-04 00:00:00 Completed [facility] Pneumococcal 13 Conjugate, PCV13 (Prevnar 13) 2018-11-04 00:00:00 Completed [facility] TDAP 2018-11-04 00:00:00 Completed [facility] Pneumococcal 13 Conjugate, PCV13 (Prevnar 13) 2018-11-04 00:00:00 Completed [facility] TDAP 2018-11-04 00:00:00 Completed [facility] Pneumococcal 13 Conjugate, PCV13 (Prevnar 13) 2018-11-04 00:00:00 Completed [facility] TDAP 2018-11-04 00:00:00 Completed [facility] Pneumococcal 13 Conjugate, PCV13 (Prevnar 13) 2018-11-04 00:00:00 Completed [facility] TDAP 2018-11-04 00:00:00 Completed [facility] Pneumococcal 13 Conjugate, PCV13 (Prevnar 13) 2018-11-04 00:00:00 Completed [facility] TDAP 2018-11-04 00:00:00 Completed [facility] Pneumococcal 13 Conjugate, PCV13 (Prevnar 13) 2018-11-04 00:00:00 Completed [facility] TDAP 2018-11-04 00:00:00 Completed [facility] Pneumococcal 13 Conjugate, PCV13 (Prevnar 13) 2018-11-04 00:00:00 Completed [facility] TDAP 2018-11-04 00:00:00 Completed [facility] Pneumococcal 13 Conjugate, PCV13 (Prevnar 13) 2018-11-04 00:00:00 Completed [facility] TDAP 2018-11-04 00:00:00 Completed [facility] Pneumococcal 13 Conjugate, PCV13 (Prevnar 13) 2018-11-04 00:00:00 Completed [facility] TDAP 2018-11-04 00:00:00 Completed [facility] Pneumococcal 13 Conjugate, PCV13 (Prevnar 13) 2018-11-04 00:00:00 Completed [facility] TDAP 2018-11-04 00:00:00 Completed [facility] Pneumococcal 13 Conjugate, PCV13 (Prevnar 13) 2018-11-04 00:00:00 Completed [facility] TDAP 2018-11-04 00:00:00 Completed [facility] Pneumococcal 13 Conjugate, PCV13 (Prevnar 13) 2018-11-04 00:00:00 Completed [facility] TDAP 2018-11-04 00:00:00 Completed [facility] Pneumococcal 13 Conjugate, PCV13 (Prevnar 13) 2018-11-04 00:00:00 Completed [facility] TDAP 2018-11-04 00:00:00 Completed [facility] Pneumococcal 13 Conjugate, PCV13 (Prevnar 13) 2018-11-04 00:00:00 Completed [facility] TDAP 2018-11-04 00:00:00 Completed [facility] Pneumococcal 13 Conjugate, PCV13 (Prevnar 13) 2018-11-04 00:00:00 Completed [facility] TDAP 2018-11-04 00:00:00 Completed [facility] Pneumococcal 13 Conjugate, PCV13 (Prevnar 13) 2018-11-04 00:00:00 Completed [facility] TDAP 2018-11-04 00:00:00 Completed [facility] Pneumococcal 13 Conjugate, PCV13 (Prevnar 13) 2018-11-04 00:00:00 Completed [facility] TDAP 2018-11-04 00:00:00 Completed [facility] Pneumococcal 13 Conjugate, PCV13 (Prevnar 13) 2018-11-04 00:00:00 Completed [facility] TDAP 2018-11-04 00:00:00 Completed [facility] Pneumococcal 13 Conjugate, PCV13 (Prevnar 13) 2018-11-04 00:00:00 Completed [facility] TDAP 2018-11-04 00:00:00 Completed [facility] Pneumococcal 13 Conjugate, PCV13 (Prevnar 13) 2018-11-04 00:00:00 Completed [facility] TDAP 2018-11-04 00:00:00 Completed [facility] Pneumococcal 13 Conjugate, PCV13 (Prevnar 13) 2018-11-04 00:00:00 Completed [facility] TDAP 2018-11-04 00:00:00 Completed [facility] Pneumococcal 13 Conjugate, PCV13 (Prevnar 13) 2018-11-04 00:00:00 Completed [facility] TDAP 2018-11-04 00:00:00 Completed [facility] Pneumococcal 13 Conjugate, PCV13 (Prevnar 13) 2018-11-04 00:00:00 Completed [facility] TDAP 2018-11-04 00:00:00 Completed [facility] Pneumococcal 13 Conjugate, PCV13 (Prevnar 13) 2018-11-04 00:00:00 Completed [facility] TDAP 2018-11-04 00:00:00 Completed [facility] Pneumococcal 13 Conjugate, PCV13 (Prevnar 13) 2018-11-04 00:00:00 Completed [facility] TDAP 2018-11-04 00:00:00 Completed [facility] Pneumococcal 13 Conjugate, PCV13 (Prevnar 13) 2018-11-04 00:00:00 Completed [facility] TDAP 2018-11-04 00:00:00 Completed [facility] Pneumococcal 13 Conjugate, PCV13 (Prevnar 13) 2018-11-04 00:00:00 Completed [facility] TDAP 2018-11-04 00:00:00 Completed [facility] Pneumococcal 13 Conjugate, PCV13 (Prevnar 13) 2018-11-04 00:00:00 Completed [facility] TDAP 2018-11-04 00:00:00 Completed [facility] Pneumococcal 13 Conjugate, PCV13 (Prevnar 13) 2018-11-04 00:00:00 Completed [facility] TDAP 2018-11-04 00:00:00 Completed [facility] Pneumococcal 13 Conjugate, PCV13 (Prevnar 13) 2018-11-04 00:00:00 Completed [facility] TDAP 2018-11-04 00:00:00 Completed [facility] Pneumococcal 13 Conjugate, PCV13 (Prevnar 13) 2018-11-04 00:00:00 Completed [facility] TDAP 2018-11-04 00:00:00 Completed [facility] Pneumococcal 13 Conjugate, PCV13 (Prevnar 13) 2018-11-04 00:00:00 Completed [facility] TDAP 2018-11-04 00:00:00 Completed [facility] Pneumococcal 13 Conjugate, PCV13 (Prevnar 13) 2018-11-04 00:00:00 Completed [facility] TDAP 2018-11-04 00:00:00 Completed [facility] Pneumococcal 13 Conjugate, PCV13 (Prevnar 13) 2018-11-04 00:00:00 Completed [facility] TDAP 2018-11-04 00:00:00 Completed [facility] Pneumococcal 13 Conjugate, PCV13 (Prevnar 13) 2018-11-04 00:00:00 Completed [facility] TDAP 2018-11-04 00:00:00 Completed [facility] Pneumococcal 13 Conjugate, PCV13 (Prevnar 13) 2018-11-04 00:00:00 Completed [facility] TDAP 2018-11-04 00:00:00 Completed [facility] Pneumococcal 13 Conjugate, PCV13 (Prevnar 13) 2018-11-04 00:00:00 Completed [facility] TDAP 2018-11-04 00:00:00 Completed [facility] Pneumococcal 13 Conjugate, PCV13 (Prevnar 13) 2018-11-04 00:00:00 Completed [facility] TDAP 2018-11-04 00:00:00 Completed [facility] Pneumococcal 13 Conjugate, PCV13 (Prevnar 13) 2018-11-04 00:00:00 Completed [facility] TDAP 2018-11-04 00:00:00 Completed [facility] Pneumococcal 13 Conjugate, PCV13 (Prevnar 13) 2018-11-04 00:00:00 Completed [facility] TDAP 2018-11-04 00:00:00 Completed [facility] Pneumococcal 13 Conjugate, PCV13 (Prevnar 13) 2018-11-04 00:00:00 Completed [facility] TDAP 2018-11-04 00:00:00 Completed [facility] Pneumococcal 13 Conjugate, PCV13 (Prevnar 13) 2018-11-04 00:00:00 Completed [facility] TDAP 2018-11-04 00:00:00 Completed [facility] Pneumococcal 13 Conjugate, PCV13 (Prevnar 13) 2018-11-04 00:00:00 Completed [facility] TDAP 2018-11-04 00:00:00 Completed [facility] Pneumococcal 13 Conjugate, PCV13 (Prevnar 13) 2018-11-04 00:00:00 Completed [facility] TDAP 2018-11-04 00:00:00 Completed [facility] Pneumococcal 13 Conjugate, PCV13 (Prevnar 13) 2018-11-04 00:00:00 Completed [facility] TDAP 2018-11-04 00:00:00 Completed [facility] Pneumococcal 13 Conjugate, PCV13 (Prevnar 13) 2018-11-04 00:00:00 Completed [facility] TDAP 2018-11-04 00:00:00 Completed [facility] Pneumococcal 13 Conjugate, PCV13 (Prevnar 13) 2018-11-04 00:00:00 Completed [facility] TDAP 2018-11-04 00:00:00 Completed [facility] Pneumococcal 13 Conjugate, PCV13 (Prevnar 13) 2018-11-04 00:00:00 Completed [facility] TDAP 2018-11-04 00:00:00 Completed [facility] Pneumococcal 13 Conjugate, PCV13 (Prevnar 13) 2018-11-04 00:00:00 Completed [facility] TDAP 2018-11-04 00:00:00 Completed [facility] Pneumococcal 13 Conjugate, PCV13 (Prevnar 13) 2018-11-04 00:00:00 Completed [facility] TDAP 2018-11-04 00:00:00 Completed [facility] Pneumococcal 13 Conjugate, PCV13 (Prevnar 13) 2018-11-04 00:00:00 Completed [facility] TDAP 2018-11-04 00:00:00 Completed [facility] Pneumococcal 13 Conjugate, PCV13 (Prevnar 13) 2018-11-04 00:00:00 Completed [facility] TDAP 2018-11-04 00:00:00 Completed [facility] Pneumococcal 13 Conjugate, PCV13 (Prevnar 13) 2018-11-04 00:00:00 Completed [facility] TDAP 2018-11-04 00:00:00 Completed [facility] Pneumococcal 13 Conjugate, PCV13 (Prevnar 13) 2018-11-04 00:00:00 Completed [facility] TDAP 2018-11-04 00:00:00 Completed [facility] Pneumococcal 13 Conjugate, PCV13 (Prevnar 13) 2018-11-04 00:00:00 Completed [facility] TDAP 2018-11-04 00:00:00 Completed [facility] Pneumococcal 13 Conjugate, PCV13 (Prevnar 13) 2018-11-04 00:00:00 Completed [facility] TDAP 2018-11-04 00:00:00 Completed [facility] Pneumococcal 13 Conjugate, PCV13 (Prevnar 13) 2018-11-04 00:00:00 Completed [facility] TDAP 2018-11-04 00:00:00 Completed [facility] Pneumococcal 13 Conjugate, PCV13 (Prevnar 13) 2018-11-04 00:00:00 Completed [facility] TDAP 2018-11-04 00:00:00 Completed [facility] Pneumococcal 13 Conjugate, PCV13 (Prevnar 13) 2018-11-04 00:00:00 Completed [facility] TDAP 2018-11-04 00:00:00 Completed [facility] Pneumococcal 13 Conjugate, PCV13 (Prevnar 13) 2018-11-04 00:00:00 Completed [facility] TDAP 2018-11-04 00:00:00 Completed [facility] Pneumococcal 13 Conjugate, PCV13 (Prevnar 13) 2018-11-04 00:00:00 Completed [facility] TDAP 2018-11-04 00:00:00 Completed [facility] Pneumococcal 13 Conjugate, PCV13 (Prevnar 13) 2018-11-04 00:00:00 Completed [facility] TDAP 2018-11-04 00:00:00 Completed [facility] Pneumococcal 13 Conjugate, PCV13 (Prevnar 13) 2018-11-04 00:00:00 Completed [facility] TDAP 2018-11-04 00:00:00 Completed [facility] Pneumococcal 13 Conjugate, PCV13 (Prevnar 13) 2018-11-04 00:00:00 Completed [facility] TDAP 2018-11-04 00:00:00 Completed [facility] Pneumococcal 13 Conjugate, PCV13 (Prevnar 13) 2018-11-04 00:00:00 Completed [facility] TDAP 2018-11-04 00:00:00 Completed [facility] Pneumococcal 13 Conjugate, PCV13 (Prevnar 13) 2018-11-04 00:00:00 Completed [facility] TDAP 2018-11-04 00:00:00 Completed [facility] Pneumococcal 13 Conjugate, PCV13 (Prevnar 13) 2018-11-04 00:00:00 Completed [facility] TDAP 2018-11-04 00:00:00 Completed [facility] Pneumococcal 13 Conjugate, PCV13 (Prevnar 13) 2018-11-04 00:00:00 Completed [facility] TDAP 2018-11-04 00:00:00 Completed [facility] Pneumococcal 13 Conjugate, PCV13 (Prevnar 13) 2018-11-04 00:00:00 Completed [facility] TDAP 2018-11-04 00:00:00 Completed [facility] Pneumococcal 13 Conjugate, PCV13 (Prevnar 13) 2018-11-04 00:00:00 Completed [facility] TDAP 2018-11-04 00:00:00 Completed [facility] Pneumococcal 13 Conjugate, PCV13 (Prevnar 13) 2018-11-04 00:00:00 Completed [facility] TDAP 2018-11-04 00:00:00 Completed [facility] Pneumococcal 13 Conjugate, PCV13 (Prevnar 13) 2018-11-04 00:00:00 Completed [facility] TDAP 2018-11-04 00:00:00 Completed [facility] Pneumococcal 13 Conjugate, PCV13 (Prevnar 13) 2018-11-04 00:00:00 Completed [facility] TDAP 2018-11-04 00:00:00 Completed [facility] Pneumococcal 13 Conjugate, PCV13 (Prevnar 13) 2018-11-04 00:00:00 Completed [facility] TDAP 2018-11-04 00:00:00 Completed [facility] Pneumococcal 13 Conjugate, PCV13 (Prevnar 13) 2018-11-04 00:00:00 Completed [facility] TDAP 2018-11-04 00:00:00 Completed [facility] Pneumococcal 13 Conjugate, PCV13 (Prevnar 13) 2018-11-04 00:00:00 Completed [facility] TDAP 2018-11-04 00:00:00 Completed [facility] Pneumococcal 13 Conjugate, PCV13 (Prevnar 13) 2018-11-04 00:00:00 Completed [facility] TDAP 2018-11-04 00:00:00 Completed [facility] Pneumococcal 13 Conjugate, PCV13 (Prevnar 13) 2018-11-04 00:00:00 Completed [facility] TDAP 2018-11-04 00:00:00 Completed [facility] Pneumococcal 13 Conjugate, PCV13 (Prevnar 13) 2018-11-04 00:00:00 Completed [facility] TDAP 2018-11-04 00:00:00 Completed [facility] Pneumococcal 13 Conjugate, PCV13 (Prevnar 13) 2018-11-04 00:00:00 Completed [facility] TDAP 2018-11-04 00:00:00 Completed [facility] Pneumococcal 13 Conjugate, PCV13 (Prevnar 13) 2018-11-04 00:00:00 Completed [facility] TDAP 2018-11-04 00:00:00 Completed [facility] Pneumococcal 13 Conjugate, PCV13 (Prevnar 13) 2018-11-04 00:00:00 Completed [facility] TDAP 2018-11-04 00:00:00 Completed [facility] Pneumococcal 13 Conjugate, PCV13 (Prevnar 13) 2018-11-04 00:00:00 Completed [facility] TDAP 2018-11-04 00:00:00 Completed [facility] Pneumococcal 13 Conjugate, PCV13 (Prevnar 13) 2018-11-04 00:00:00 Completed [facility] TDAP 2018-11-04 00:00:00 Completed [facility] Pneumococcal 13 Conjugate, PCV13 (Prevnar 13) 2018-11-04 00:00:00 Completed [facility] TDAP 2018-11-04 00:00:00 Completed [facility] Pneumococcal 13 Conjugate, PCV13 (Prevnar 13) 2018-11-04 00:00:00 Completed [facility] TDAP 2018-11-04 00:00:00 Completed [facility] Pneumococcal 13 Conjugate, PCV13 (Prevnar 13) 2018-11-04 00:00:00 Completed [facility] TDAP 2018-11-04 00:00:00 Completed [facility] Pneumococcal 13 Conjugate, PCV13 (Prevnar 13) 2018-11-04 00:00:00 Completed [facility] TDAP 2018-11-04 00:00:00 Completed [facility] Pneumococcal 13 Conjugate, PCV13 (Prevnar 13) 2018-11-04 00:00:00 Completed [facility] TDAP 2018-11-04 00:00:00 Completed [facility] Pneumococcal 13 Conjugate, PCV13 (Prevnar 13) 2018-11-04 00:00:00 Completed [facility] TDAP 2018-11-04 00:00:00 Completed [facility] Pneumococcal 13 Conjugate, PCV13 (Prevnar 13) 2018-11-04 00:00:00 Completed [facility] TDAP 2018-11-04 00:00:00 Completed [facility] Pneumococcal 13 Conjugate, PCV13 (Prevnar 13) 2018-11-04 00:00:00 Completed [facility] TDAP 2018-11-04 00:00:00 Completed [facility] Pneumococcal 13 Conjugate, PCV13 (Prevnar 13) 2018-11-04 00:00:00 Completed [facility] TDAP 2018-11-04 00:00:00 Completed [facility] Pneumococcal 13 Conjugate, PCV13 (Prevnar 13) 2018-11-04 00:00:00 Completed [facility] TDAP 2018-11-04 00:00:00 Completed [facility] Pneumococcal 13 Conjugate, PCV13 (Prevnar 13) 2018-11-04 00:00:00 Completed [facility] TDAP 2018-11-04 00:00:00 Completed [facility] Pneumococcal 13 Conjugate, PCV13 (Prevnar 13) 2018-11-04 00:00:00 Completed [facility] TDAP 2018-11-04 00:00:00 Completed [facility] Pneumococcal 13 Conjugate, PCV13 (Prevnar 13) 2018-11-04 00:00:00 Completed [facility] TDAP 2018-11-04 00:00:00 Completed [facility] Pneumococcal 13 Conjugate, PCV13 (Prevnar 13) 2018-11-04 00:00:00 Completed [facility] TDAP 2018-11-04 00:00:00 Completed [facility] Pneumococcal 13 Conjugate, PCV13 (Prevnar 13) 2018-11-04 00:00:00 Completed [facility] TDAP 2018-11-04 00:00:00 Completed [facility] Pneumococcal 13 Conjugate, PCV13 (Prevnar 13) 2018-11-04 00:00:00 Completed [facility] TDAP 2018-11-04 00:00:00 Completed [facility] Pneumococcal 13 Conjugate, PCV13 (Prevnar 13) 2018-11-04 00:00:00 Completed [facility] TDAP 2018-11-04 00:00:00 Completed [facility] Pneumococcal 13 Conjugate, PCV13 (Prevnar 13) 2018-11-04 00:00:00 Completed [facility] TDAP 2018-11-04 00:00:00 Completed [facility] Pneumococcal 13 Conjugate, PCV13 (Prevnar 13) 2018-11-04 00:00:00 Completed [facility] TDAP 2018-11-04 00:00:00 Completed [facility] Pneumococcal 13 Conjugate, PCV13 (Prevnar 13) 2018-11-04 00:00:00 Completed [facility] TDAP 2018-11-04 00:00:00 Completed [facility] Pneumococcal 13 Conjugate, PCV13 (Prevnar 13) 2018-11-04 00:00:00 Completed [facility] TDAP 2018-11-04 00:00:00 Completed [facility] Pneumococcal 13 Conjugate, PCV13 (Prevnar 13) 2018-11-04 00:00:00 Completed [facility] TDAP 2018-11-04 00:00:00 Completed [facility] Pneumococcal 13 Conjugate, PCV13 (Prevnar 13) 2018-11-04 00:00:00 Completed [facility] TDAP 2018-11-04 00:00:00 Completed [facility] Pneumococcal 13 Conjugate, PCV13 (Prevnar 13) 2018-11-04 00:00:00 Completed [facility] TDAP 2018-11-04 00:00:00 Completed [facility] Pneumococcal 13 Conjugate, PCV13 (Prevnar 13) 2018-11-04 00:00:00 Completed [facility] TDAP 2018-11-04 00:00:00 Completed [facility] Pneumococcal 13 Conjugate, PCV13 (Prevnar 13) 2018-11-04 00:00:00 Completed [facility] TDAP 2018-11-04 00:00:00 Completed [facility] Pneumococcal 13 Conjugate, PCV13 (Prevnar 13) 2018-11-04 00:00:00 Completed [facility] TDAP 2018-11-04 00:00:00 Completed [facility] Pneumococcal 13 Conjugate, PCV13 (Prevnar 13) 2018-11-04 00:00:00 Completed [facility] TDAP 2018-11-04 00:00:00 Completed [facility] Pneumococcal 13 Conjugate, PCV13 (Prevnar 13) 2018-11-04 00:00:00 Completed [facility] TDAP 2018-11-04 00:00:00 Completed [facility] Pneumococcal 13 Conjugate, PCV13 (Prevnar 13) 2018-11-04 00:00:00 Completed [facility] TDAP 2018-11-04 00:00:00 Completed [facility] Pneumococcal 13 Conjugate, PCV13 (Prevnar 13) 2018-11-04 00:00:00 Completed [facility] TDAP 2018-11-04 00:00:00 Completed [facility] Pneumococcal 13 Conjugate, PCV13 (Prevnar 13) 2018-11-04 00:00:00 Completed [facility] TDAP 2018-11-04 00:00:00 Completed [facility] Pneumococcal 13 Conjugate, PCV13 (Prevnar 13) 2018-11-04 00:00:00 Completed [facility] TDAP 2018-11-04 00:00:00 Completed [facility] Pneumococcal 13 Conjugate, PCV13 (Prevnar 13) 2018-11-04 00:00:00 Completed [facility] TDAP 2018-11-04 00:00:00 Completed [facility] Pneumococcal 13 Conjugate, PCV13 (Prevnar 13) 2018-11-04 00:00:00 Completed [facility] TDAP 2018-11-04 00:00:00 Completed [facility] Pneumococcal 13 Conjugate, PCV13 (Prevnar 13) 2018-11-04 00:00:00 Completed [facility] TDAP 2018-11-04 00:00:00 Completed [facility] Pneumococcal 13 Conjugate, PCV13 (Prevnar 13) 2018-11-04 00:00:00 Completed [facility] TDAP 2018-11-04 00:00:00 Completed [facility] Pneumococcal 13 Conjugate, PCV13 (Prevnar 13) 2018-11-04 00:00:00 Completed [facility] TDAP 2018-11-04 00:00:00 Completed [facility] Pneumococcal 13 Conjugate, PCV13 (Prevnar 13) 2018-11-04 00:00:00 Completed [facility] TDAP 2018-11-04 00:00:00 Completed [facility] Pneumococcal 13 Conjugate, PCV13 (Prevnar 13) 2018-11-04 00:00:00 Completed [facility] TDAP 2018-11-04 00:00:00 Completed [facility] Pneumococcal 13 Conjugate, PCV13 (Prevnar 13) 2018-11-04 00:00:00 [facility] [facility] 2018-11-04 00:00:00 Completed [facility] Pneumococcal 13 Conjugate, PCV13 (Prevnar 13) 2018-11-04 00:00:00 Completed [facility] TDAP 2018-11-04 00:00:00 Completed [facility] Pneumococcal 13 Conjugate, PCV13 (Prevnar 13) 2018-11-04 00:00:00 Completed [facility] TDAP 2018-11-04 00:00:00 Completed [facility] Pneumococcal 13 Conjugate, PCV13 (Prevnar 13) 2018-11-04 00:00:00 Completed [facility] TDAP 2018-11-04 00:00:00 Completed [facility] Pneumococcal 13 Conjugate, PCV13 (Prevnar 13) 2018-11-04 00:00:00 Completed [facility] TDAP 2018-11-04 00:00:00 Completed [facility] Pneumococcal 13 Conjugate, PCV13 (Prevnar 13) 2018-11-04 00:00:00 Completed [facility] TDAP 2018-11-04 00:00:00 Completed [facility] Pneumococcal 13 Conjugate, PCV13 (Prevnar 13) 2018-11-04 00:00:00 Completed [facility] TDAP 2018-11-04 00:00:00 Completed [facility] Pneumococcal 13 Conjugate, PCV13 (Prevnar 13) 2018-11-04 00:00:00 Completed [facility] TDAP 2018-11-04 00:00:00 Completed [facility] Pneumococcal 13 Conjugate, PCV13 (Prevnar 13) 2018-11-04 00:00:00 Completed [facility] TDAP 2018-11-04 00:00:00 Completed [facility] Pneumococcal 13 Conjugate, PCV13 (Prevnar 13) 2018-11-04 00:00:00 Completed [facility] TDAP 2018-11-04 00:00:00 Completed [facility] Pneumococcal 13 Conjugate, PCV13 (Prevnar 13) 2018-11-04 00:00:00 Completed [facility] TDAP 2018-11-04 00:00:00 Completed [facility] Pneumococcal 13 Conjugate, PCV13 (Prevnar 13) 2018-11-04 00:00:00 Completed [facility] TDAP 2018-11-04 00:00:00 Completed [facility] Pneumococcal 13 Conjugate, PCV13 (Prevnar 13) 2018-11-04 00:00:00 Completed [facility] TDAP 2018-11-04 00:00:00 Completed [facility] Pneumococcal 13 Conjugate, PCV13 (Prevnar 13) 2018-11-04 00:00:00 Completed [facility] TDAP 2018-11-04 00:00:00 Completed [facility] Pneumococcal 13 Conjugate, PCV13 (Prevnar 13) 2018-11-04 00:00:00 Completed [facility] TDAP 2018-11-04 00:00:00 Completed [facility] Pneumococcal 13 Conjugate, PCV13 (Prevnar 13) 2018-11-04 00:00:00 Completed [facility] TDAP 2018-11-04 00:00:00 Completed [facility] Pneumococcal 13 Conjugate, PCV13 (Prevnar 13) 2018-11-04 00:00:00 Completed [facility] TDAP 2018-11-04 00:00:00 Completed [facility] Pneumococcal 13 Conjugate, PCV13 (Prevnar 13) 2018-11-04 00:00:00 Completed [facility] TDAP 2018-11-04 00:00:00 Completed [facility] Pneumococcal 13 Conjugate, PCV13 (Prevnar 13) 2018-11-04 00:00:00 Completed [facility] TDAP 2018-11-04 00:00:00 Completed [facility] Pneumococcal 13 Conjugate, PCV13 (Prevnar 13) 2018-11-04 00:00:00 Completed [facility] TDAP 2018-11-04 00:00:00 Completed [facility] Pneumococcal 13 Conjugate, PCV13 (Prevnar 13) 2018-11-04 00:00:00 Completed [facility] TDAP 2018-11-04 00:00:00 Completed [facility] Pneumococcal 13 Conjugate, PCV13 (Prevnar 13) 2018-11-04 00:00:00 Completed [facility] TDAP 2018-11-04 00:00:00 Completed [facility] Pneumococcal 13 Conjugate, PCV13 (Prevnar 13) 2018-11-04 00:00:00 Completed [facility] TDAP 2018-11-04 00:00:00 Completed [facility] Pneumococcal 13 Conjugate, PCV13 (Prevnar 13) 2018-11-04 00:00:00 Completed [facility] TDAP 2018-11-04 00:00:00 Completed [facility] Pneumococcal 13 Conjugate, PCV13 (Prevnar 13) 2018-11-04 00:00:00 Completed [facility] TDAP 2018-11-04 00:00:00 Completed [facility] Pneumococcal 13 Conjugate, PCV13 (Prevnar 13) 2018-11-04 00:00:00 Completed [facility] TDAP 2018-11-04 00:00:00 Completed [facility] Pneumococcal 13 Conjugate, PCV13 (Prevnar 13) 2018-11-04 00:00:00 Completed [facility] TDAP 2018-11-04 00:00:00 Completed [facility] Pneumococcal 13 Conjugate, PCV13 (Prevnar 13) 2018-11-04 00:00:00 Completed [facility] TDAP 2018-11-04 00:00:00 Completed [facility] Pneumococcal 13 Conjugate, PCV13 (Prevnar 13) 2018-11-04 00:00:00 Completed [facility] TDAP 2018-11-04 00:00:00 Completed [facility] Pneumococcal 13 Conjugate, PCV13 (Prevnar 13) 2018-11-04 00:00:00 Completed [facility] TDAP 2018-11-04 00:00:00 Completed [facility] Pneumococcal 13 Conjugate, PCV13 (Prevnar 13) 2018-11-04 00:00:00 Completed [facility] TDAP 2018-11-04 00:00:00 Completed [facility] Pneumococcal 13 Conjugate, PCV13 (Prevnar 13) 2018-11-04 00:00:00 Completed [facility] TDAP 2018-11-04 00:00:00 Completed [facility] Pneumococcal 13 Conjugate, PCV13 (Prevnar 13) 2018-11-04 00:00:00 Completed [facility] TDAP 2018-11-04 00:00:00 Completed [facility] Pneumococcal 13 Conjugate, PCV13 (Prevnar 13) 2018-11-04 00:00:00 Completed [facility] TDAP 2018-11-04 00:00:00 Completed [facility] Pneumococcal 13 Conjugate, PCV13 (Prevnar 13) 2018-11-04 00:00:00 Completed [facility] TDAP 2018-11-04 00:00:00 Completed [facility] Pneumococcal 13 Conjugate, PCV13 (Prevnar 13) 2018-11-04 00:00:00 Completed [facility] TDAP 2018-11-04 00:00:00 Completed [facility] Pneumococcal 13 Conjugate, PCV13 (Prevnar 13) 2018-11-04 00:00:00 Completed [facility] TDAP 2018-11-04 00:00:00 Completed [facility] Pneumococcal 13 Conjugate, PCV13 (Prevnar 13) 2018-11-04 00:00:00 Completed [facility] TDAP 2018-11-04 00:00:00 Completed [facility] Pneumococcal 13 Conjugate, PCV13 (Prevnar 13) 2018-11-04 00:00:00 Completed [facility] TDAP 2018-11-04 00:00:00 Completed [facility] Pneumococcal 13 Conjugate, PCV13 (Prevnar 13) 2018-11-04 00:00:00 Completed [facility] TDAP 2018-11-04 00:00:00 Completed [facility] Pneumococcal 13 Conjugate, PCV13 (Prevnar 13) 2018-11-04 00:00:00 Completed [facility] TDAP 2018-11-04 00:00:00 Completed [facility] Pneumococcal 13 Conjugate, PCV13 (Prevnar 13) 2018-11-04 00:00:00 Completed [facility] TDAP 2018-11-04 00:00:00 Completed [facility] Pneumococcal 13 Conjugate, PCV13 (Prevnar 13) 2018-11-04 00:00:00 Completed [facility] TDAP 2018-11-04 00:00:00 Completed [facility] Pneumococcal 13 Conjugate, PCV13 (Prevnar 13) 2018-11-04 00:00:00 Completed [facility] TDAP 2018-11-04 00:00:00 Completed [facility] Pneumococcal 13 Conjugate, PCV13 (Prevnar 13) 2018-11-04 00:00:00 Completed [facility] TDAP 2018-11-04 00:00:00 Completed [facility] Pneumococcal 13 Conjugate, PCV13 (Prevnar 13) 2018-11-04 00:00:00 Completed [facility] TDAP 2018-11-04 00:00:00 Completed [facility] Pneumococcal 13 Conjugate, PCV13 (Prevnar 13) 2018-11-04 00:00:00 Completed [facility] TDAP 2018-11-04 00:00:00 Completed [facility] Pneumococcal 13 Conjugate, PCV13 (Prevnar 13) 2018-11-04 00:00:00 Completed [facility] TDAP 2018-11-04 00:00:00 Completed [facility] Pneumococcal 13 Conjugate, PCV13 (Prevnar 13) 2018-11-04 00:00:00 Completed [facility] TDAP 2018-11-04 00:00:00 Completed [facility] Pneumococcal 13 Conjugate, PCV13 (Prevnar 13) 2018-11-04 00:00:00 Completed [facility] TDAP 2018-11-04 00:00:00 Completed [facility] Pneumococcal 13 Conjugate, PCV13 (Prevnar 13) 2018-11-04 00:00:00 Completed [facility] TDAP 2018-11-04 00:00:00 Completed [facility] Pneumococcal 13 Conjugate, PCV13 (Prevnar 13) 2018-11-04 00:00:00 Completed [facility] TDAP 2018-11-04 00:00:00 Completed [facility] Pneumococcal 13 Conjugate, PCV13 (Prevnar 13) 2018-11-04 00:00:00 Completed [facility] TDAP 2018-11-04 00:00:00 Completed [facility] Pneumococcal 13 Conjugate, PCV13 (Prevnar 13) 2018-11-04 00:00:00 Completed [facility] TDAP 2018-11-04 00:00:00 Completed [facility] Pneumococcal 13 Conjugate, PCV13 (Prevnar 13) 2018-11-04 00:00:00 Completed [facility] TDAP 2018-11-04 00:00:00 Completed [facility] Pneumococcal 13 Conjugate, PCV13 (Prevnar 13) 2018-11-04 00:00:00 Completed [facility] TDAP 2018-11-04 00:00:00 Completed [facility] Pneumococcal 13 Conjugate, PCV13 (Prevnar 13) 2018-11-04 00:00:00 Completed [facility] TDAP 2018-11-04 00:00:00 Completed [facility] Pneumococcal 13 Conjugate, PCV13 (Prevnar 13) 2018-11-04 00:00:00 Completed [facility] TDAP 2018-11-04 00:00:00 Completed [facility] Pneumococcal 13 Conjugate, PCV13 (Prevnar 13) 2018-11-04 00:00:00 Completed [facility] TDAP 2018-11-04 00:00:00 Completed [facility] Pneumococcal 13 Conjugate, PCV13 (Prevnar 13) 2018-11-04 00:00:00 Completed [facility] TDAP 2018-11-04 00:00:00 Completed [facility] Pneumococcal 13 Conjugate, PCV13 (Prevnar 13) 2018-11-04 00:00:00 Completed [facility] TDAP 2018-11-04 00:00:00 Completed [facility] Pneumococcal 13 Conjugate, PCV13 (Prevnar 13) 2018-11-04 00:00:00 Completed [facility] TDAP 2018-11-04 00:00:00 Completed [facility] Pneumococcal 13 Conjugate, PCV13 (Prevnar 13) 2018-11-04 00:00:00 Completed [facility] TDAP 2018-11-04 00:00:00 Completed [facility] Pneumococcal 13 Conjugate, PCV13 (Prevnar 13) 2018-11-04 00:00:00 Completed [facility] TDAP 2018-11-04 00:00:00 Completed [facility] Pneumococcal 13 Conjugate, PCV13 (Prevnar 13) 2018-11-04 00:00:00 Completed [facility] TDAP 2018-11-04 00:00:00 Completed [facility] Pneumococcal 13 Conjugate, PCV13 (Prevnar 13) 2018-11-04 00:00:00 Completed [facility] TDAP 2018-11-04 00:00:00 Completed [facility] Pneumococcal 13 Conjugate, PCV13 (Prevnar 13) 2018-11-04 00:00:00 Completed [facility] TDAP 2018-11-04 00:00:00 Completed [facility] Pneumococcal 13 Conjugate, PCV13 (Prevnar 13) 2018-11-04 00:00:00 Completed [facility] TDAP 2018-11-04 00:00:00 Completed [facility] Pneumococcal 13 Conjugate, PCV13 (Prevnar 13) 2018-11-04 00:00:00 Completed [facility] TDAP 2018-11-04 00:00:00 Completed [facility] Pneumococcal 13 Conjugate, PCV13 (Prevnar 13) 2018-11-04 00:00:00 Completed [facility] TDAP 2018-11-04 00:00:00 Completed [facility] Pneumococcal 13 Conjugate, PCV13 (Prevnar 13) 2018-11-04 00:00:00 Completed [facility] TDAP 2018-11-04 00:00:00 Completed [facility] Pneumococcal 13 Conjugate, PCV13 (Prevnar 13) 2018-11-04 00:00:00 Completed [facility] TDAP 2018-11-04 00:00:00 Completed [facility] Pneumococcal 13 Conjugate, PCV13 (Prevnar 13) 2018-11-04 00:00:00 Completed [facility] TDAP 2018-11-04 00:00:00 Completed [facility] Pneumococcal 13 Conjugate, PCV13 (Prevnar 13) 2018-11-04 00:00:00 Completed [facility] TDAP 2018-11-04 00:00:00 Completed [facility] Pneumococcal 13 Conjugate, PCV13 (Prevnar 13) 2018-11-04 00:00:00 Completed [facility] TDAP 2018-11-04 00:00:00 Completed [facility] Pneumococcal 13 Conjugate, PCV13 (Prevnar 13) 2018-11-04 00:00:00 Completed [facility] TDAP 2018-11-04 00:00:00 Completed [facility] Pneumococcal 13 Conjugate, PCV13 (Prevnar 13) 2018-11-04 00:00:00 Completed [facility] TDAP 2018-11-04 00:00:00 Completed [facility] Pneumococcal 13 Conjugate, PCV13 (Prevnar 13) 2018-11-04 00:00:00 Completed [facility] TDAP 2018-11-04 00:00:00 Completed [facility] Pneumococcal 13 Conjugate, PCV13 (Prevnar 13) 2018-11-04 00:00:00 Completed [facility] TDAP 2018-11-04 00:00:00 Completed [facility] Pneumococcal 13 Conjugate, PCV13 (Prevnar 13) 2018-11-04 00:00:00 Completed [facility] TDAP 2018-11-04 00:00:00 Completed [facility] Pneumococcal 13 Conjugate, PCV13 (Prevnar 13) 2018-11-04 00:00:00 Completed [facility] TDAP 2018-11-04 00:00:00 Completed [facility] Pneumococcal 13 Conjugate, PCV13 (Prevnar 13) 2018-11-04 00:00:00 Completed [facility] TDAP 2018-11-04 00:00:00 Completed [facility] Pneumococcal 13 Conjugate, PCV13 (Prevnar 13) 2018-11-04 00:00:00 Completed [facility] TDAP 2018-11-04 00:00:00 Completed [facility] Pneumococcal 13 Conjugate, PCV13 (Prevnar 13) 2018-11-04 00:00:00 Completed [facility] TDAP 2018-11-04 00:00:00 Completed [facility] Pneumococcal 13 Conjugate, PCV13 (Prevnar 13) 2018-11-04 00:00:00 Completed [facility] TDAP 2018-11-04 00:00:00 Completed [facility] Pneumococcal 13 Conjugate, PCV13 (Prevnar 13) 2018-11-04 00:00:00 Completed [facility] TDAP 2018-11-04 00:00:00 Completed [facility] Pneumococcal 13 Conjugate, PCV13 (Prevnar 13) 2018-11-04 00:00:00 Completed [facility] TDAP 2018-11-04 00:00:00 Completed [facility] Pneumococcal 13 Conjugate, PCV13 (Prevnar 13) 2018-11-04 00:00:00 Completed [facility] TDAP 2018-11-04 00:00:00 Completed [facility] Pneumococcal 13 Conjugate, PCV13 (Prevnar 13) 2018-11-04 00:00:00 Completed [facility] TDAP 2018-11-04 00:00:00 Completed [facility] Pneumococcal 13 Conjugate, PCV13 (Prevnar 13) 2018-11-04 00:00:00 Completed [facility] TDAP 2018-11-04 00:00:00 Completed [facility] Pneumococcal 13 Conjugate, PCV13 (Prevnar 13) 2018-11-04 00:00:00 Completed [facility] TDAP Unknown Completed [facility] Pneumococcal 13 Conjugate, PCV13 (Prevnar 13) Unknown Completed [facility] SARS-COV-2 COVID-19 PFIZER VACCINE Unknown Completed [facility] SARS-COV-2 COVID-19 PFIZER VACCINE Unknown Completed [facility] Influenza High Dose Quad Unknown Completed [facility] Influenza Virus Vaccine,quad Im,preserve Free 65+ (FLUAD) Unknown Completed [facility] Pneumococcal 20 Conjugate, PCV20 (Prevnar 20) Unknown Completed [facility] TDAP Unknown Completed [facility] Pneumococcal 13 Conjugate, PCV13 (Prevnar 13) Unknown Completed [facility] SARS-COV-2 COVID-19 PFIZER VACCINE Unknown Completed [facility] SARS-COV-2 COVID-19 PFIZER VACCINE Unknown Completed [facility] Influenza High Dose Quad Unknown Completed [facility] Influenza Virus Vaccine,quad Im,preserve Free 65+ (FLUAD) Unknown Completed [facility] Pneumococcal 20 Conjugate, PCV20 (Prevnar 20) Unknown Completed [facility] TDAP Unknown Completed [facility] Pneumococcal 13 Conjugate, PCV13 (Prevnar 13) Unknown Completed [facility] SARS-COV-2 COVID-19 PFIZER VACCINE Unknown Completed [facility] SARS-COV-2 COVID-19 PFIZER VACCINE Unknown Completed [facility] Influenza High Dose Quad Unknown Completed [facility] Influenza Virus Vaccine,quad Im,preserve Free 65+ (FLUAD) Unknown Completed [facility] Pneumococcal 20 Conjugate, PCV20 (Prevnar 20) Unknown Completed [facility] TDAP Unknown Completed [facility] Pneumococcal 13 Conjugate, PCV13 (Prevnar 13) Unknown Completed [facility] SARS-COV-2 COVID-19 PFIZER VACCINE Unknown Completed [facility] SARS-COV-2 COVID-19 PFIZER VACCINE Unknown Completed [facility] Influenza High Dose Quad Unknown Completed [facility] Influenza Virus Vaccine,quad Im,preserve Free 65+ (FLUAD) Unknown Completed [facility] Pneumococcal 20 Conjugate, PCV20 (Prevnar 20) Unknown Completed [facility] TDAP Unknown Completed [facility] Pneumococcal 13 Conjugate, PCV13 (Prevnar 13) Unknown Completed [facility] SARS-COV-2 COVID-19 PFIZER VACCINE Unknown Completed [facility] SARS-COV-2 COVID-19 PFIZER VACCINE Unknown Completed [facility] Influenza High Dose Quad Unknown Completed [facility] TDAP Unknown Completed [facility] Pneumococcal 13 Conjugate, PCV13 (Prevnar 13) Unknown Completed [facility] SARS-COV-2 COVID-19 PFIZER VACCINE Unknown Completed [facility] SARS-COV-2 COVID-19 PFIZER VACCINE Unknown Completed [facility] Influenza High Dose Quad Unknown Completed [facility] TDAP Unknown Completed [facility] Pneumococcal 13 Conjugate, PCV13 (Prevnar 13) Unknown Completed [facility] SARS-COV-2 COVID-19 PFIZER VACCINE Unknown Completed [facility] SARS-COV-2 COVID-19 PFIZER VACCINE Unknown Completed [facility] Influenza High Dose Quad Unknown Completed [facility] TDAP Unknown Completed [facility] Pneumococcal 13 Conjugate, PCV13 (Prevnar 13) Unknown Completed [facility] SARS-COV-2 COVID-19 PFIZER VACCINE Unknown Completed [facility] SARS-COV-2 COVID-19 PFIZER VACCINE Unknown Completed [facility] Influenza High Dose Quad Unknown Completed [facility] TDAP Unknown Completed [facility] Pneumococcal 13 Conjugate, PCV13 (Prevnar 13) Unknown Completed [facility] SARS-COV-2 COVID-19 PFIZER VACCINE Unknown Completed [facility] SARS-COV-2 COVID-19 PFIZER VACCINE Unknown Completed [facility] Influenza High Dose Quad Unknown Completed [facility] TDAP Unknown Completed [facility] Pneumococcal 13 Conjugate, PCV13 (Prevnar 13) Unknown Completed [facility] SARS-COV-2 COVID-19 PFIZER VACCINE Unknown Completed [facility] SARS-COV-2 COVID-19 PFIZER VACCINE Unknown Completed [facility] Influenza High Dose Quad Unknown Completed [facility] TDAP Unknown Completed [facility] Pneumococcal 13 Conjugate, PCV13 (Prevnar 13) Unknown Completed [facility] SARS-COV-2 COVID-19 PFIZER VACCINE Unknown Completed [facility] SARS-COV-2 COVID-19 PFIZER VACCINE Unknown Completed [facility] Influenza High Dose Quad Unknown Completed [facility] Influenza Virus Vaccine,quad Im,preserve Free 65+ (FLUAD) Unknown Completed [facility] Pneumococcal 20 Conjugate, PCV20 (Prevnar 20) Unknown Completed [facility] TDAP Unknown Completed [facility] Pneumococcal 13 Conjugate, PCV13 (Prevnar 13) Unknown Completed [facility] SARS-COV-2 COVID-19 PFIZER VACCINE Unknown Completed [facility] SARS-COV-2 COVID-19 PFIZER VACCINE Unknown Completed [facility] Influenza High Dose Quad Unknown Completed [facility] Influenza Virus Vaccine,quad Im,preserve Free 65+ (FLUAD) Unknown Completed [facility] Pneumococcal 20 Conjugate, PCV20 (Prevnar 20) Unknown Completed [facility] TDAP Unknown Completed [facility] Pneumococcal 13 Conjugate, PCV13 (Prevnar 13) Unknown Completed [facility] SARS-COV-2 COVID-19 PFIZER VACCINE Unknown Completed [facility] SARS-COV-2 COVID-19 PFIZER VACCINE Unknown Completed [facility] Influenza High Dose Quad Unknown Completed [facility] Influenza Virus Vaccine,quad Im,preserve Free 65+ (FLUAD) Unknown Completed [facility] Pneumococcal 20 Conjugate, PCV20 (Prevnar 20) Unknown Completed [facility] TDAP Unknown Completed [facility] Pneumococcal 13 Conjugate, PCV13 (Prevnar 13) Unknown Completed [facility] SARS-COV-2 COVID-19 PFIZER VACCINE Unknown Completed [facility] SARS-COV-2 COVID-19 PFIZER VACCINE Unknown Completed [facility] Influenza High Dose Quad Unknown Completed [facility] Influenza Virus Vaccine,quad Im,preserve Free 65+ (FLUAD) Unknown Completed [facility] Pneumococcal 20 Conjugate, PCV20 (Prevnar 20) Unknown Completed [facility] TDAP Unknown Completed [facility] Pneumococcal 13 Conjugate, PCV13 (Prevnar 13) Unknown Completed [facility] SARS-COV-2 COVID-19 PFIZER VACCINE Unknown Completed [facility] SARS-COV-2 COVID-19 PFIZER VACCINE Unknown Completed [facility] Influenza High Dose Quad Unknown Completed [facility] Influenza Virus Vaccine,quad Im,preserve Free 65+ (FLUAD) Unknown Completed [facility] Pneumococcal 20 Conjugate, PCV20 (Prevnar 20) Unknown Completed [facility] TDAP Unknown Completed [facility] Pneumococcal 13 Conjugate, PCV13 (Prevnar 13) Unknown Completed [facility] SARS-COV-2 COVID-19 PFIZER VACCINE Unknown Completed [facility] SARS-COV-2 COVID-19 PFIZER VACCINE Unknown Completed [facility] Influenza High Dose Quad Unknown Completed [facility] Influenza Virus Vaccine,quad Im,preserve Free 65+ (FLUAD) Unknown Completed [facility] Pneumococcal 20 Conjugate, PCV20 (Prevnar 20) Unknown Completed [facility] TDAP Unknown Completed [facility] Pneumococcal 13 Conjugate, PCV13 (Prevnar 13) Unknown Completed [facility] SARS-COV-2 COVID-19 PFIZER VACCINE Unknown Completed [facility] SARS-COV-2 COVID-19 PFIZER VACCINE Unknown Completed [facility] Influenza High Dose Quad Unknown Completed [facility] Influenza Virus Vaccine,quad Im,preserve Free 65+ (FLUAD) Unknown Completed [facility] Pneumococcal 20 Conjugate, PCV20 (Prevnar 20) Unknown Completed [facility] TDAP Unknown Completed [facility] Pneumococcal 13 Conjugate, PCV13 (Prevnar 13) Unknown Completed [facility] SARS-COV-2 COVID-19 PFIZER VACCINE Unknown Completed [facility] SARS-COV-2 COVID-19 PFIZER VACCINE Unknown Completed [facility] Influenza High Dose Quad Unknown Completed [facility] Influenza Virus Vaccine,quad Im,preserve Free 65+ (FLUAD) Unknown Completed [facility] Pneumococcal 20 Conjugate, PCV20 (Prevnar 20) Unknown Completed [facility] TDAP Unknown Completed [facility] Pneumococcal 13 Conjugate, PCV13 (Prevnar 13) Unknown Completed [facility] SARS-COV-2 COVID-19 PFIZER VACCINE Unknown Completed [facility] SARS-COV-2 COVID-19 PFIZER VACCINE Unknown Completed [facility] Influenza High Dose Quad Unknown Completed [facility] Influenza Virus Vaccine,quad Im,preserve Free 65+ (FLUAD) Unknown Completed [facility] Pneumococcal 20 Conjugate, PCV20 (Prevnar 20) Unknown Completed [facility] TDAP Unknown Completed [facility] Pneumococcal 13 Conjugate, PCV13 (Prevnar 13) Unknown Completed [facility] SARS-COV-2 COVID-19 PFIZER VACCINE Unknown Completed [facility] SARS-COV-2 COVID-19 PFIZER VACCINE Unknown Completed [facility] Influenza High Dose Quad Unknown Completed [facility] Influenza Virus Vaccine,quad Im,preserve Free 65+ (FLUAD) Unknown Completed [facility] Pneumococcal 20 Conjugate, PCV20 (Prevnar 20) Unknown Completed [facility] TDAP Unknown Completed [facility] Pneumococcal 13 Conjugate, PCV13 (Prevnar 13) Unknown Completed [facility] SARS-COV-2 COVID-19 PFIZER VACCINE Unknown Completed [facility] SARS-COV-2 COVID-19 PFIZER VACCINE Unknown Completed [facility] Influenza High Dose Quad Unknown Completed [facility] Influenza Virus Vaccine,quad Im,preserve Free 65+ (FLUAD) Unknown Completed [facility] Pneumococcal 20 Conjugate, PCV20 (Prevnar 20) Unknown Completed [facility] TDAP Unknown Completed [facility] Pneumococcal 13 Conjugate, PCV13 (Prevnar 13) Unknown Completed [facility] SARS-COV-2 COVID-19 PFIZER VACCINE Unknown Completed [facility] SARS-COV-2 COVID-19 PFIZER VACCINE Unknown Completed [facility] Influenza High Dose Quad Unknown Completed [facility] Influenza Virus Vaccine,quad Im,preserve Free 65+ (FLUAD) Unknown Completed [facility] Pneumococcal 20 Conjugate, PCV20 (Prevnar 20) Unknown Completed [facility] TDAP Unknown Completed [facility] Pneumococcal 13 Conjugate, PCV13 (Prevnar 13) Unknown Completed [facility] SARS-COV-2 COVID-19 PFIZER VACCINE Unknown Completed [facility] SARS-COV-2 COVID-19 PFIZER VACCINE Unknown Completed [facility] Influenza High Dose Quad Unknown Completed [facility] Influenza Virus Vaccine,quad Im,preserve Free 65+ (FLUAD) Unknown Completed [facility] Pneumococcal 20 Conjugate, PCV20 (Prevnar 20) Unknown Completed [facility] TDAP Unknown Completed [facility] Pneumococcal 13 Conjugate, PCV13 (Prevnar 13) Unknown Completed [facility] SARS-COV-2 COVID-19 PFIZER VACCINE Unknown Completed [facility] SARS-COV-2 COVID-19 PFIZER VACCINE Unknown Completed [facility] Influenza High Dose Quad Unknown Completed [facility] Influenza Virus Vaccine,quad Im,preserve Free 65+ (FLUAD) Unknown Completed [facility] Pneumococcal 20 Conjugate, PCV20 (Prevnar 20) Unknown Completed [facility] TDAP Unknown Completed [facility] Pneumococcal 13 Conjugate, PCV13 (Prevnar 13) Unknown Completed [facility] SARS-COV-2 COVID-19 PFIZER VACCINE Unknown Completed [facility] SARS-COV-2 COVID-19 PFIZER VACCINE Unknown Completed [facility] Influenza High Dose Quad Unknown Completed [facility] Influenza Virus Vaccine,quad Im,preserve Free 65+ (FLUAD) Unknown Completed [facility] Pneumococcal 20 Conjugate, PCV20 (Prevnar 20) Unknown Completed [facility] TDAP Unknown Completed [facility] Pneumococcal 13 Conjugate, PCV13 (Prevnar 13) Unknown Completed [facility] SARS-COV-2 COVID-19 PFIZER VACCINE Unknown Completed [facility] SARS-COV-2 COVID-19 PFIZER VACCINE Unknown Completed [facility] Influenza High Dose Quad Unknown Completed [facility] Influenza Virus Vaccine,quad Im,preserve Free 65+ (FLUAD) Unknown Completed [facility] Pneumococcal 20 Conjugate, PCV20 (Prevnar 20) Unknown Completed [facility] TDAP Unknown Completed [facility] Pneumococcal 13 Conjugate, PCV13 (Prevnar 13) Unknown Completed [facility] SARS-COV-2 COVID-19 PFIZER VACCINE Unknown Completed [facility] SARS-COV-2 COVID-19 PFIZER VACCINE Unknown Completed [facility] Influenza High Dose Quad Unknown Completed [facility] Influenza Virus Vaccine,quad Im,preserve Free 65+ (FLUAD) Unknown Completed [facility] Pneumococcal 20 Conjugate, PCV20 (Prevnar 20) Unknown Completed [facility] TDAP Unknown Completed [facility] Pneumococcal 13 Conjugate, PCV13 (Prevnar 13) Unknown Completed [facility] SARS-COV-2 COVID-19 PFIZER VACCINE Unknown Completed [facility] SARS-COV-2 COVID-19 PFIZER VACCINE Unknown Completed [facility] Influenza High Dose Quad Unknown Completed [facility] Influenza Virus Vaccine,quad Im,preserve Free 65+ (FLUAD) Unknown Completed [facility] Pneumococcal 20 Conjugate, PCV20 (Prevnar 20) Unknown Completed [facility] TDAP Unknown Completed [facility] Pneumococcal 13 Conjugate, PCV13 (Prevnar 13) Unknown Completed [facility] SARS-COV-2 COVID-19 PFIZER VACCINE Unknown Completed [facility] SARS-COV-2 COVID-19 PFIZER VACCINE Unknown Completed [facility] Influenza High Dose Quad Unknown Completed [facility] Influenza Virus Vaccine,quad Im,preserve Free 65+ (FLUAD) Unknown Completed [facility] Pneumococcal 20 Conjugate, PCV20 (Prevnar 20) Unknown Completed [facility] TDAP Unknown Completed [facility] Pneumococcal 13 Conjugate, PCV13 (Prevnar 13) Unknown Completed [facility] SARS-COV-2 COVID-19 PFIZER VACCINE Unknown Completed [facility] SARS-COV-2 COVID-19 PFIZER VACCINE Unknown Completed [facility] Influenza High Dose Quad Unknown Completed [facility] Influenza Virus Vaccine,quad Im,preserve Free 65+ (FLUAD) Unknown Completed [facility] Pneumococcal 20 Conjugate, PCV20 (Prevnar 20) Unknown Completed [facility] TDAP Unknown Completed [facility] Pneumococcal 13 Conjugate, PCV13 (Prevnar 13) Unknown Completed [facility] SARS-COV-2 COVID-19 PFIZER VACCINE Unknown Completed [facility] SARS-COV-2 COVID-19 PFIZER VACCINE Unknown Completed [facility] Influenza High Dose Quad Unknown Completed [facility] Influenza Virus Vaccine,quad Im,preserve Free 65+ (FLUAD) Unknown Completed [facility] Pneumococcal 20 Conjugate, PCV20 (Prevnar 20) Unknown Completed [facility] TDAP Unknown Completed [facility] Pneumococcal 13 Conjugate, PCV13 (Prevnar 13) Unknown Completed [facility] SARS-COV-2 COVID-19 PFIZER VACCINE Unknown Completed [facility] SARS-COV-2 COVID-19 PFIZER VACCINE Unknown Completed [facility] Influenza High Dose Quad Unknown Completed [facility] Influenza Virus Vaccine,quad Im,preserve Free 65+ (FLUAD) Unknown Completed [facility] Pneumococcal 20 Conjugate, PCV20 (Prevnar 20) Unknown Completed [facility] TDAP Unknown Completed [facility] Pneumococcal 13 Conjugate, PCV13 (Prevnar 13) Unknown Completed [facility] SARS-COV-2 COVID-19 PFIZER VACCINE Unknown Completed [facility] SARS-COV-2 COVID-19 PFIZER VACCINE Unknown Completed [facility] Influenza High Dose Quad Unknown Completed [facility] Influenza Virus Vaccine,quad Im,preserve Free 65+ (FLUAD) Unknown Completed [facility] Pneumococcal 20 Conjugate, PCV20 (Prevnar 20) Unknown Completed [facility] TDAP Unknown Completed [facility] Pneumococcal 13 Conjugate, PCV13 (Prevnar 13) Unknown Completed [facility] SARS-COV-2 COVID-19 PFIZER VACCINE Unknown Completed [facility] SARS-COV-2 COVID-19 PFIZER VACCINE Unknown Completed [facility] Influenza High Dose Quad Unknown Completed [facility] Influenza Virus Vaccine,quad Im,preserve Free 65+ (FLUAD) Unknown Completed [facility] Pneumococcal 20 Conjugate, PCV20 (Prevnar 20) Unknown Completed [facility] TDAP Unknown Completed [facility] Pneumococcal 13 Conjugate, PCV13 (Prevnar 13) Unknown Completed [facility] SARS-COV-2 COVID-19 PFIZER VACCINE Unknown Completed [facility] SARS-COV-2 COVID-19 PFIZER VACCINE Unknown Completed [facility] Influenza High Dose Quad Unknown Completed [facility] Influenza Virus Vaccine,quad Im,preserve Free 65+ (FLUAD) Unknown Completed [facility] Pneumococcal 20 Conjugate, PCV20 (Prevnar 20) Unknown Completed [facility] TDAP Unknown Completed [facility] Pneumococcal 13 Conjugate, PCV13 (Prevnar 13) Unknown Completed [facility] SARS-COV-2 COVID-19 PFIZER VACCINE Unknown Completed [facility] SARS-COV-2 COVID-19 PFIZER VACCINE Unknown Completed [facility] Influenza High Dose Quad Unknown Completed [facility] Influenza Virus Vaccine,quad Im,preserve Free 65+ (FLUAD) Unknown Completed [facility] Pneumococcal 20 Conjugate, PCV20 (Prevnar 20) Unknown Completed [facility] TDAP Unknown Completed [facility] Pneumococcal 13 Conjugate, PCV13 (Prevnar 13) Unknown Completed [facility] SARS-COV-2 COVID-19 PFIZER VACCINE Unknown Completed [facility] SARS-COV-2 COVID-19 PFIZER VACCINE Unknown Completed [facility] Influenza High Dose Quad Unknown Completed [facility] Influenza Virus Vaccine,quad Im,preserve Free 65+ (FLUAD) Unknown Completed [facility] Pneumococcal 20 Conjugate, PCV20 (Prevnar 20) Unknown Completed [facility] TDAP Unknown Completed [facility] Pneumococcal 13 Conjugate, PCV13 (Prevnar 13) Unknown Completed [facility] SARS-COV-2 COVID-19 PFIZER VACCINE Unknown Completed [facility] SARS-COV-2 COVID-19 PFIZER VACCINE Unknown Completed [facility] Influenza High Dose Quad Unknown Completed [facility] Influenza Virus Vaccine,quad Im,preserve Free 65+ (FLUAD) Unknown Completed [facility] Pneumococcal 20 Conjugate, PCV20 (Prevnar 20) Unknown Completed [facility] TDAP Unknown Completed [facility] Pneumococcal 13 Conjugate, PCV13 (Prevnar 13) Unknown Completed [facility] SARS-COV-2 COVID-19 PFIZER VACCINE Unknown Completed [facility] SARS-COV-2 COVID-19 PFIZER VACCINE Unknown Completed [facility] Influenza High Dose Quad Unknown Completed [facility] Influenza Virus Vaccine,quad Im,preserve Free 65+ (FLUAD) Unknown Completed [facility] Pneumococcal 20 Conjugate, PCV20 (Prevnar 20) Unknown Completed [facility] TDAP Unknown Completed [facility] Pneumococcal 13 Conjugate, PCV13 (Prevnar 13) Unknown Completed [facility] SARS-COV-2 COVID-19 PFIZER VACCINE Unknown Completed [facility] SARS-COV-2 COVID-19 PFIZER VACCINE Unknown Completed [facility] Influenza High Dose Quad Unknown Completed [facility] Influenza Virus Vaccine,quad Im,preserve Free 65+ (FLUAD) Unknown Completed [facility] Pneumococcal 20 Conjugate, PCV20 (Prevnar 20) Unknown Completed [facility] TDAP Unknown Completed [facility] Pneumococcal 13 Conjugate, PCV13 (Prevnar 13) Unknown Completed [facility] SARS-COV-2 COVID-19 PFIZER VACCINE Unknown Completed [facility] SARS-COV-2 COVID-19 PFIZER VACCINE Unknown Completed [facility] Influenza High Dose Quad Unknown Completed [facility] Influenza Virus Vaccine,quad Im,preserve Free 65+ (FLUAD) Unknown Completed [facility] Pneumococcal 20 Conjugate, PCV20 (Prevnar 20) Unknown Completed [facility] TDAP Unknown Completed [facility] Pneumococcal 13 Conjugate, PCV13 (Prevnar 13) Unknown Completed [facility] SARS-COV-2 COVID-19 PFIZER VACCINE Unknown Completed [facility] SARS-COV-2 COVID-19 PFIZER VACCINE Unknown Completed [facility] Influenza High Dose Quad Unknown Completed [facility] Influenza Virus Vaccine,quad Im,preserve Free 65+ (FLUAD) Unknown Completed [facility] Pneumococcal 20 Conjugate, PCV20 (Prevnar 20) Unknown Completed [facility] TDAP Unknown Completed [facility] Pneumococcal 13 Conjugate, PCV13 (Prevnar 13) Unknown Completed [facility] SARS-COV-2 COVID-19 PFIZER VACCINE Unknown Completed [facility] SARS-COV-2 COVID-19 PFIZER VACCINE Unknown Completed [facility] Influenza High Dose Quad Unknown Completed [facility] Influenza Virus Vaccine,quad Im,preserve Free 65+ (FLUAD) Unknown Completed [facility] Pneumococcal 20 Conjugate, PCV20 (Prevnar 20) Unknown Completed [facility] TDAP Unknown Completed [facility] Pneumococcal 13 Conjugate, PCV13 (Prevnar 13) Unknown Completed [facility] SARS-COV-2 COVID-19 PFIZER VACCINE Unknown Completed [facility] SARS-COV-2 COVID-19 PFIZER VACCINE Unknown Completed [facility] Influenza High Dose Quad Unknown Completed [facility] Influenza Virus Vaccine,quad Im,preserve Free 65+ (FLUAD) Unknown Completed [facility] Pneumococcal 20 Conjugate, PCV20 (Prevnar 20) Unknown Completed [facility] TDAP Unknown Completed [facility] Pneumococcal 13 Conjugate, PCV13 (Prevnar 13) Unknown Completed [facility] SARS-COV-2 COVID-19 PFIZER VACCINE Unknown Completed [facility] SARS-COV-2 COVID-19 PFIZER VACCINE Unknown Completed [facility] Influenza High Dose Quad Unknown Completed [facility] Influenza Virus Vaccine,quad Im,preserve Free 65+ (FLUAD) Unknown Completed [facility] Pneumococcal 20 Conjugate, PCV20 (Prevnar 20) Unknown Completed [facility] TDAP Unknown Completed [facility] Pneumococcal 13 Conjugate, PCV13 (Prevnar 13) Unknown Completed [facility] SARS-COV-2 COVID-19 PFIZER VACCINE Unknown Completed [facility] SARS-COV-2 COVID-19 PFIZER VACCINE Unknown Completed [facility] Influenza High Dose Quad Unknown Completed [facility] Influenza Virus Vaccine,quad Im,preserve Free 65+ (FLUAD) Unknown Completed [facility] Pneumococcal 20 Conjugate, PCV20 (Prevnar 20) Unknown Completed [facility] TDAP Unknown Completed [facility] Pneumococcal 13 Conjugate, PCV13 (Prevnar 13) Unknown Completed [facility] SARS-COV-2 COVID-19 PFIZER VACCINE Unknown Completed [facility] SARS-COV-2 COVID-19 PFIZER VACCINE Unknown Completed [facility] Influenza High Dose Quad Unknown Completed [facility] Influenza Virus Vaccine,quad Im,preserve Free 65+ (FLUAD) Unknown Completed [facility] Pneumococcal 20 Conjugate, PCV20 (Prevnar 20) Unknown Completed [facility] TDAP Unknown Completed [facility] Pneumococcal 13 Conjugate, PCV13 (Prevnar 13) Unknown Completed [facility] SARS-COV-2 COVID-19 PFIZER VACCINE Unknown Completed [facility] SARS-COV-2 COVID-19 PFIZER VACCINE Unknown Completed [facility] Influenza High Dose Quad Unknown Completed [facility] Influenza Virus Vaccine,quad Im,preserve Free 65+ (FLUAD) Unknown Completed [facility] Pneumococcal 20 Conjugate, PCV20 (Prevnar 20) Unknown Completed [facility] TDAP Unknown Completed [facility] Pneumococcal 13 Conjugate, PCV13 (Prevnar 13) Unknown Completed [facility] SARS-COV-2 COVID-19 PFIZER VACCINE Unknown Completed [facility] SARS-COV-2 COVID-19 PFIZER VACCINE Unknown Completed [facility] Influenza High Dose Quad Unknown Completed [facility] Influenza Virus Vaccine,quad Im,preserve Free 65+ (FLUAD) Unknown Completed [facility] Pneumococcal 20 Conjugate, PCV20 (Prevnar 20) Unknown Completed [facility] TDAP Unknown Completed [facility] Pneumococcal 13 Conjugate, PCV13 (Prevnar 13) Unknown Completed [facility] SARS-COV-2 COVID-19 PFIZER VACCINE Unknown Completed [facility] SARS-COV-2 COVID-19 PFIZER VACCINE Unknown Completed [facility] Influenza High Dose Quad Unknown Completed [facility] Influenza Virus Vaccine,quad Im,preserve Free 65+ (FLUAD) Unknown Completed [facility] Pneumococcal 20 Conjugate, PCV20 (Prevnar 20) Unknown Completed [facility] TDAP Unknown Completed [facility] Pneumococcal 13 Conjugate, PCV13 (Prevnar 13) Unknown Completed [facility] SARS-COV-2 COVID-19 PFIZER VACCINE Unknown Completed [facility] SARS-COV-2 COVID-19 PFIZER VACCINE Unknown Completed [facility] Influenza High Dose Quad Unknown Completed [facility] Influenza Virus Vaccine,quad Im,preserve Free 65+ (FLUAD) Unknown Completed [facility] Pneumococcal 20 Conjugate, PCV20 (Prevnar 20) Unknown Completed [facility] TDAP Unknown Completed [facility] Pneumococcal 13 Conjugate, PCV13 (Prevnar 13) Unknown Completed [facility] SARS-COV-2 COVID-19 PFIZER VACCINE Unknown Completed [facility] SARS-COV-2 COVID-19 PFIZER VACCINE Unknown Completed [facility] Influenza High Dose Quad Unknown Completed [facility] Influenza Virus Vaccine,quad Im,preserve Free 65+ (FLUAD) Unknown Completed [facility] Pneumococcal 20 Conjugate, PCV20 (Prevnar 20) Unknown Completed [facility] TDAP Unknown Completed [facility] Pneumococcal 13 Conjugate, PCV13 (Prevnar 13) Unknown Completed [facility] SARS-COV-2 COVID-19 PFIZER VACCINE Unknown Completed [facility] SARS-COV-2 COVID-19 PFIZER VACCINE Unknown Completed [facility] Influenza High Dose Quad Unknown Completed [facility] Influenza Virus Vaccine,quad Im,preserve Free 65+ (FLUAD) Unknown Completed [facility] Pneumococcal 20 Conjugate, PCV20 (Prevnar 20) Unknown Completed [facility] TDAP Unknown Completed [facility] Pneumococcal 13 Conjugate, PCV13 (Prevnar 13) Unknown Completed [facility] SARS-COV-2 COVID-19 PFIZER VACCINE Unknown Completed [facility] SARS-COV-2 COVID-19 PFIZER VACCINE Unknown Completed [facility] Influenza High Dose Quad Unknown Completed [facility] Influenza Virus Vaccine,quad Im,preserve Free 65+ (FLUAD) Unknown Completed [facility] Pneumococcal 20 Conjugate, PCV20 (Prevnar 20) Unknown Completed [facility] TDAP Unknown Completed [facility] Pneumococcal 13 Conjugate, PCV13 (Prevnar 13) Unknown Completed [facility] SARS-COV-2 COVID-19 PFIZER VACCINE Unknown Completed [facility] SARS-COV-2 COVID-19 PFIZER VACCINE Unknown Completed [facility] Influenza High Dose Quad Unknown Completed [facility] Influenza Virus Vaccine,quad Im,preserve Free 65+ (FLUAD) Unknown Completed [facility] Pneumococcal 20 Conjugate, PCV20 (Prevnar 20) Unknown Completed [facility] TDAP Unknown Completed [facility] Pneumococcal 13 Conjugate, PCV13 (Prevnar 13) Unknown Completed [facility] SARS-COV-2 COVID-19 PFIZER VACCINE Unknown Completed [facility] SARS-COV-2 COVID-19 PFIZER VACCINE Unknown Completed [facility] Influenza High Dose Quad Unknown Completed [facility] Influenza Virus Vaccine,quad Im,preserve Free 65+ (FLUAD) Unknown Completed [facility] Pneumococcal 20 Conjugate, PCV20 (Prevnar 20) Unknown Completed [facility] TDAP Unknown Completed [facility] Pneumococcal 13 Conjugate, PCV13 (Prevnar 13) Unknown Completed [facility] SARS-COV-2 COVID-19 PFIZER VACCINE Unknown Completed [facility] SARS-COV-2 COVID-19 PFIZER VACCINE Unknown Completed [facility] Influenza High Dose Quad Unknown Completed [facility] Influenza Virus Vaccine,quad Im,preserve Free 65+ (FLUAD) Unknown Completed [facility] Pneumococcal 20 Conjugate, PCV20 (Prevnar 20) Unknown Completed [facility] TDAP Unknown Completed [facility] Pneumococcal 13 Conjugate, PCV13 (Prevnar 13) Unknown Completed [facility] SARS-COV-2 COVID-19 PFIZER VACCINE Unknown Completed [facility] SARS-COV-2 COVID-19 PFIZER VACCINE Unknown Completed [facility] Influenza High Dose Quad Unknown Completed [facility] Influenza Virus Vaccine,quad Im,preserve Free 65+ (FLUAD) Unknown Completed [facility] Pneumococcal 20 Conjugate, PCV20 (Prevnar 20) Unknown Completed [facility] TDAP Unknown Completed [facility] Pneumococcal 13 Conjugate, PCV13 (Prevnar 13) Unknown Completed [facility] SARS-COV-2 COVID-19 PFIZER VACCINE Unknown Completed [facility] SARS-COV-2 COVID-19 PFIZER VACCINE Unknown Completed [facility] Influenza High Dose Quad Unknown Completed [facility] Influenza Virus Vaccine,quad Im,preserve Free 65+ (FLUAD) Unknown Completed [facility] Pneumococcal 20 Conjugate, PCV20 (Prevnar 20) Unknown Completed [facility] TDAP Unknown Completed [facility] Pneumococcal 13 Conjugate, PCV13 (Prevnar 13) Unknown Completed [facility] SARS-COV-2 COVID-19 PFIZER VACCINE Unknown Completed [facility] SARS-COV-2 COVID-19 PFIZER VACCINE Unknown Completed [facility] Influenza High Dose Quad Unknown Completed [facility] Influenza Virus Vaccine,quad Im,preserve Free 65+ (FLUAD) Unknown Completed [facility] Pneumococcal 20 Conjugate, PCV20 (Prevnar 20) Unknown Completed [facility] TDAP Unknown Completed [facility] Pneumococcal 13 Conjugate, PCV13 (Prevnar 13) Unknown Completed [facility] SARS-COV-2 COVID-19 PFIZER VACCINE Unknown Completed [facility] SARS-COV-2 COVID-19 PFIZER VACCINE Unknown Completed [facility] Influenza High Dose Quad Unknown Completed [facility] Influenza Virus Vaccine,quad Im,preserve Free 65+ (FLUAD) Unknown Completed [facility] Pneumococcal 20 Conjugate, PCV20 (Prevnar 20) Unknown Completed [facility] TDAP Unknown Completed [facility] Pneumococcal 13 Conjugate, PCV13 (Prevnar 13) Unknown Completed [facility] SARS-COV-2 COVID-19 PFIZER VACCINE Unknown Completed [facility] SARS-COV-2 COVID-19 PFIZER VACCINE Unknown Completed [facility] Influenza High Dose Quad Unknown Completed [facility] Influenza Virus Vaccine,quad Im,preserve Free 65+ (FLUAD) Unknown Completed [facility] Pneumococcal 20 Conjugate, PCV20 (Prevnar 20) Unknown Completed [facility] TDAP Unknown Completed [facility] Pneumococcal 13 Conjugate, PCV13 (Prevnar 13) Unknown Completed [facility] SARS-COV-2 COVID-19 PFIZER VACCINE Unknown Completed [facility] SARS-COV-2 COVID-19 PFIZER VACCINE Unknown Completed [facility] Influenza High Dose Quad Unknown Completed [facility] Influenza Virus Vaccine,quad Im,preserve Free 65+ (FLUAD) Unknown Completed [facility] Pneumococcal 20 Conjugate, PCV20 (Prevnar 20) Unknown Completed [facility] TDAP Unknown Completed [facility] Pneumococcal 13 Conjugate, PCV13 (Prevnar 13) Unknown Completed [facility] SARS-COV-2 COVID-19 PFIZER VACCINE Unknown Completed [facility] SARS-COV-2 COVID-19 PFIZER VACCINE Unknown Completed [facility] Influenza High Dose Quad Unknown Completed [facility] Influenza Virus Vaccine,quad Im,preserve Free 65+ (FLUAD) Unknown Completed [facility] Pneumococcal 20 Conjugate, PCV20 (Prevnar 20) Unknown Completed [facility] TDAP Unknown Completed [facility] Pneumococcal 13 Conjugate, PCV13 (Prevnar 13) Unknown Completed [facility] SARS-COV-2 COVID-19 PFIZER VACCINE Unknown Completed [facility] SARS-COV-2 COVID-19 PFIZER VACCINE Unknown Completed [facility] Influenza High Dose Quad Unknown Completed [facility] Influenza Virus Vaccine,quad Im,preserve Free 65+ (FLUAD) Unknown Completed [facility] Pneumococcal 20 Conjugate, PCV20 (Prevnar 20) Unknown Completed [facility] TDAP Unknown Completed [facility] Pneumococcal 13 Conjugate, PCV13 (Prevnar 13) Unknown Completed [facility] SARS-COV-2 COVID-19 PFIZER VACCINE Unknown Completed [facility] SARS-COV-2 COVID-19 PFIZER VACCINE Unknown Completed [facility] Influenza High Dose Quad Unknown Completed [facility] Influenza Virus Vaccine,quad Im,preserve Free 65+ (FLUAD) Unknown Completed [facility] Pneumococcal 20 Conjugate, PCV20 (Prevnar 20) Unknown Completed [facility] TDAP Unknown Completed [facility] Pneumococcal 13 Conjugate, PCV13 (Prevnar 13) Unknown Completed [facility] SARS-COV-2 COVID-19 PFIZER VACCINE Unknown Completed [facility] SARS-COV-2 COVID-19 PFIZER VACCINE Unknown Completed [facility] Influenza High Dose Quad Unknown Completed [facility] Influenza Virus Vaccine,quad Im,preserve Free 65+ (FLUAD) Unknown Completed [facility] Pneumococcal 20 Conjugate, PCV20 (Prevnar 20) Unknown Completed [facility] TDAP Unknown Completed [facility] Pneumococcal 13 Conjugate, PCV13 (Prevnar 13) Unknown Completed [facility] SARS-COV-2 COVID-19 PFIZER VACCINE Unknown Completed [facility] SARS-COV-2 COVID-19 PFIZER VACCINE Unknown Completed [facility] Influenza High Dose Quad Unknown Completed [facility] Influenza Virus Vaccine,quad Im,preserve Free 65+ (FLUAD) Unknown Completed [facility] Pneumococcal 20 Conjugate, PCV20 (Prevnar 20) Unknown Completed [facility] TDAP Unknown Completed [facility] Pneumococcal 13 Conjugate, PCV13 (Prevnar 13) Unknown Completed [facility] SARS-COV-2 COVID-19 PFIZER VACCINE Unknown Completed [facility] SARS-COV-2 COVID-19 PFIZER VACCINE Unknown Completed [facility] Influenza High Dose Quad Unknown Completed [facility] Influenza Virus Vaccine,quad Im,preserve Free 65+ (FLUAD) Unknown Completed [facility] Pneumococcal 20 Conjugate, PCV20 (Prevnar 20) Unknown Completed [facility] TDAP Unknown Completed [facility] Pneumococcal 13 Conjugate, PCV13 (Prevnar 13) Unknown Completed [facility] SARS-COV-2 COVID-19 PFIZER VACCINE Unknown Completed [facility] SARS-COV-2 COVID-19 PFIZER VACCINE Unknown Completed [facility] Influenza High Dose Quad Unknown Completed [facility] Influenza Virus Vaccine,quad Im,preserve Free 65+ (FLUAD) Unknown Completed [facility] Pneumococcal 20 Conjugate, PCV20 (Prevnar 20) Unknown Completed [facility] TDAP Unknown Completed [facility] Pneumococcal 13 Conjugate, PCV13 (Prevnar 13) Unknown Completed [facility] SARS-COV-2 COVID-19 PFIZER VACCINE Unknown Completed [facility] SARS-COV-2 COVID-19 PFIZER VACCINE Unknown Completed [facility] Influenza High Dose Quad Unknown Completed [facility] Influenza Virus Vaccine,quad Im,preserve Free 65+ (FLUAD) Unknown Completed [facility] Pneumococcal 20 Conjugate, PCV20 (Prevnar 20) Unknown Completed [facility] TDAP Unknown Completed [facility] Pneumococcal 13 Conjugate, PCV13 (Prevnar 13) Unknown Completed [facility] SARS-COV-2 COVID-19 PFIZER VACCINE Unknown Completed [facility] SARS-COV-2 COVID-19 PFIZER VACCINE Unknown Completed [facility] Influenza High Dose Quad Unknown Completed [facility] Influenza Virus Vaccine,quad Im,preserve Free 65+ (FLUAD) Unknown Completed [facility] Pneumococcal 20 Conjugate, PCV20 (Prevnar 20) Unknown Completed [facility] TDAP Unknown Completed [facility] Pneumococcal 13 Conjugate, PCV13 (Prevnar 13) Unknown Completed [facility] SARS-COV-2 COVID-19 PFIZER VACCINE Unknown Completed [facility] SARS-COV-2 COVID-19 PFIZER VACCINE Unknown Completed [facility] Influenza High Dose Quad Unknown Completed [facility] Influenza Virus Vaccine,quad Im,preserve Free 65+ (FLUAD) Unknown Completed [facility] Pneumococcal 20 Conjugate, PCV20 (Prevnar 20) Unknown Completed [facility] TDAP Unknown Completed [facility] Pneumococcal 13 Conjugate, PCV13 (Prevnar 13) Unknown Completed [facility] SARS-COV-2 COVID-19 PFIZER VACCINE Unknown Completed [facility] SARS-COV-2 COVID-19 PFIZER VACCINE Unknown Completed [facility] Influenza High Dose Quad Unknown Completed [facility] Influenza Virus Vaccine,quad Im,preserve Free 65+ (FLUAD) Unknown Completed [facility] Pneumococcal 20 Conjugate, PCV20 (Prevnar 20) Unknown Completed [facility] TDAP Unknown Completed [facility] Pneumococcal 13 Conjugate, PCV13 (Prevnar 13) Unknown Completed [facility] SARS-COV-2 COVID-19 PFIZER VACCINE Unknown Completed [facility] SARS-COV-2 COVID-19 PFIZER VACCINE Unknown Completed [facility] Influenza High Dose Quad Unknown Completed [facility] Influenza Virus Vaccine,quad Im,preserve Free 65+ (FLUAD) Unknown Completed [facility] Pneumococcal 20 Conjugate, PCV20 (Prevnar 20) Unknown Completed [facility] TDAP Unknown Completed [facility] Pneumococcal 13 Conjugate, PCV13 (Prevnar 13) Unknown Completed [facility] SARS-COV-2 COVID-19 PFIZER VACCINE Unknown Completed [facility] SARS-COV-2 COVID-19 PFIZER VACCINE Unknown Completed [facility] Influenza High Dose Quad Unknown Completed [facility] Influenza Virus Vaccine,quad Im,preserve Free 65+ (FLUAD) Unknown Completed [facility] Pneumococcal 20 Conjugate, PCV20 (Prevnar 20) Unknown Completed [facility] TDAP Unknown Completed [facility] Pneumococcal 13 Conjugate, PCV13 (Prevnar 13) Unknown Completed [facility] SARS-COV-2 COVID-19 PFIZER VACCINE Unknown Completed [facility] SARS-COV-2 COVID-19 PFIZER VACCINE Unknown Completed [facility] Influenza High Dose Quad Unknown Completed [facility] Influenza Virus Vaccine,quad Im,preserve Free 65+ (FLUAD) Unknown Completed [facility] Pneumococcal 20 Conjugate, PCV20 (Prevnar 20) Unknown Completed [facility] TDAP Unknown Completed [facility] Pneumococcal 13 Conjugate, PCV13 (Prevnar 13) Unknown Completed [facility] SARS-COV-2 COVID-19 PFIZER VACCINE Unknown Completed [facility] SARS-COV-2 COVID-19 PFIZER VACCINE Unknown Completed [facility] Influenza High Dose Quad Unknown Completed [facility] Influenza Virus Vaccine,quad Im,preserve Free 65+ (FLUAD) Unknown Completed [facility] Pneumococcal 20 Conjugate, PCV20 (Prevnar 20) Unknown Completed [facility] TDAP Unknown Completed [facility] Pneumococcal 13 Conjugate, PCV13 (Prevnar 13) Unknown Completed [facility] SARS-COV-2 COVID-19 PFIZER VACCINE Unknown Completed [facility] SARS-COV-2 COVID-19 PFIZER VACCINE Unknown Completed [facility] Influenza High Dose Quad Unknown Completed [facility] Influenza Virus Vaccine,quad Im,preserve Free 65+ (FLUAD) Unknown Completed [facility] Pneumococcal 20 Conjugate, PCV20 (Prevnar 20) Unknown Completed [facility] TDAP Unknown Completed [facility] Pneumococcal 13 Conjugate, PCV13 (Prevnar 13) Unknown Completed [facility] SARS-COV-2 COVID-19 PFIZER VACCINE Unknown Completed [facility] SARS-COV-2 COVID-19 PFIZER VACCINE Unknown Completed [facility] Influenza High Dose Quad Unknown Completed [facility] Influenza Virus Vaccine,quad Im,preserve Free 65+ (FLUAD) Unknown Completed [facility] Pneumococcal 20 Conjugate, PCV20 (Prevnar 20) Unknown Completed [facility] TDAP Unknown Completed [facility] Pneumococcal 13 Conjugate, PCV13 (Prevnar 13) Unknown Completed [facility] SARS-COV-2 COVID-19 PFIZER VACCINE Unknown Completed [facility] SARS-COV-2 COVID-19 PFIZER VACCINE Unknown Completed [facility] Influenza High Dose Quad Unknown Completed [facility] Influenza Virus Vaccine,quad Im,preserve Free 65+ (FLUAD) Unknown Completed [facility] Pneumococcal 20 Conjugate, PCV20 (Prevnar 20) Unknown Completed [facility] TDAP Unknown Completed [facility] Pneumococcal 13 Conjugate, PCV13 (Prevnar 13) Unknown Completed [facility] SARS-COV-2 COVID-19 PFIZER VACCINE Unknown Completed [facility] SARS-COV-2 COVID-19 PFIZER VACCINE Unknown Completed [facility] Influenza High Dose Quad Unknown Completed [facility] Influenza Virus Vaccine,quad Im,preserve Free 65+ (FLUAD) Unknown Completed [facility] Pneumococcal 20 Conjugate, PCV20 (Prevnar 20) Unknown Completed [facility] TDAP Unknown Completed [facility] Pneumococcal 13 Conjugate, PCV13 (Prevnar 13) Unknown Completed [facility] SARS-COV-2 COVID-19 PFIZER VACCINE Unknown Completed [facility] SARS-COV-2 COVID-19 PFIZER VACCINE Unknown Completed [facility] Influenza High Dose Quad Unknown Completed [facility] Influenza Virus Vaccine,quad Im,preserve Free 65+ (FLUAD) Unknown Completed [facility] Pneumococcal 20 Conjugate, PCV20 (Prevnar 20) Unknown Completed [facility] TDAP Unknown Completed [facility] Pneumococcal 13 Conjugate, PCV13 (Prevnar 13) Unknown Completed [facility] SARS-COV-2 COVID-19 PFIZER VACCINE Unknown Completed [facility] SARS-COV-2 COVID-19 PFIZER VACCINE Unknown Completed [facility] Influenza High Dose Quad Unknown Completed [facility] Influenza Virus Vaccine,quad Im,preserve Free 65+ (FLUAD) Unknown Completed [facility] Pneumococcal 20 Conjugate, PCV20 (Prevnar 20) Unknown Completed [facility] TDAP Unknown Completed [facility] Pneumococcal 13 Conjugate, PCV13 (Prevnar 13) Unknown Completed [facility] SARS-COV-2 COVID-19 PFIZER VACCINE Unknown Completed [facility] SARS-COV-2 COVID-19 PFIZER VACCINE Unknown Completed [facility] Influenza High Dose Quad Unknown Completed [facility] Influenza Virus Vaccine,quad Im,preserve Free 65+ (FLUAD) Unknown Completed [facility] Pneumococcal 20 Conjugate, PCV20 (Prevnar 20) Unknown Completed [facility] TDAP Unknown Completed [facility] Pneumococcal 13 Conjugate, PCV13 (Prevnar 13) Unknown Completed [facility] SARS-COV-2 COVID-19 PFIZER VACCINE Unknown Completed [facility] SARS-COV-2 COVID-19 PFIZER VACCINE Unknown Completed [facility] Influenza High Dose Quad Unknown Completed [facility] Influenza Virus Vaccine,quad Im,preserve Free 65+ (FLUAD) Unknown Completed [facility] Pneumococcal 20 Conjugate, PCV20 (Prevnar 20) Unknown Completed [facility] Vital Signs Vital Name Observation Time Observation Value Comments S ource Systolic blood pressure 2023-09-19 18:00:00 143 mm[Hg] [facility] Diastolic blood pressure 2023-09-19 18:00:00 77 mm[Hg] [facility] Heart rate 2023-09-19 18:00:00 60 /min [facility] Respiratory rate 2023-09-19 18:00:00 18 /min [facility] Oxygen saturation in Arterial blood by Pulse oximetry 2023-09-19 18:00:00 100 /min [facility] Body temperature 2023-09-19 15:20:00 36.5 Toshia [facility] Body height 2023-09-19 15:20:00 165.1 cm [facility] Body weight 2023-09-19 15:20:00 60.328 kg [facility] BMI 2023-09-19 15:20:00 22.13 kg/m2 [facility] Systolic blood pressure 2023-09-17 03:43:00 144 mm[Hg] [facility] Diastolic blood pressure 2023-09-17 03:43:00 75 mm[Hg] [facility] Heart rate 2023-09-17 03:43:00 60 /min [facility] Respiratory rate 2023-09-17 03:43:00 20 /min [facility] Oxygen saturation in Arterial blood by Pulse oximetry 2023-09-17 03:43:00 98 /min [facility] Body temperature 2023-09-17 00:15:00 36.83 Toshia [facility] Systolic blood pressure 2023-09-15 16:23:00 126 mm[Hg] [facility] Diastolic blood pressure 2023-09-15 16:23:00 72 mm[Hg] [facility] Heart rate 2023-09-15 16:22:00 64 /min [facility] Body temperature 2023-09-15 16:22:00 36.22 Toshia [facility] Respiratory rate 2023-09-15 16:22:00 18 /min [facility] Body weight 2023-09-15 16:22:00 60.6 kg [facility] BMI 2023-09-15 16:22:00 22.58 kg/m2 [facility] Oxygen saturation in Arterial blood by Pulse oximetry 2023-09-15 16:22:00 98 /min [facility] Systolic blood pressure 2023-09-15 14:41:00 149 mm[Hg] [facility] Diastolic blood pressure 2023-09-15 14:41:00 80 mm[Hg] [facility] Heart rate 2023-09-15 14:41:00 64 /min [facility] Body temperature 2023-09-15 14:41:00 36.22 Toshia [facility] Respiratory rate 2023-09-15 14:41:00 16 /min [facility] Body height 2023-09-15 14:41:00 163.8 cm [facility] Body weight 2023-09-15 14:41:00 60.555 kg [facility] BMI 2023-09-15 14:41:00 22.56 kg/m2 [facility] Oxygen saturation in Arterial blood by Pulse oximetry 2023-09-15 14:41:00 99 /min [facility] Systolic blood pressure 2023-09-01 15:24:00 111 mm[Hg] [facility] Diastolic blood pressure 2023-09-01 15:24:00 54 mm[Hg] [facility] Heart rate 2023-09-01 15:24:00 70 /min [facility] Oxygen saturation in Arterial blood by Pulse oximetry 2023-09-01 15:24:00 95 /min [facility] Body temperature 2023-09-01 15:22:00 36.33 Toshia [facility] Respiratory rate 2023-09-01 15:22:00 17 /min [facility] Body weight 2023-09-01 15:22:00 61.78 kg [facility] BMI 2023-09-01 15:22:00 21.98 kg/m2 [facility] Systolic blood pressure 2023-08-20 20:40:00 126 mm[Hg] [facility] Diastolic blood pressure 2023-08-20 20:40:00 68 mm[Hg] [facility] Heart rate 2023-08-20 20:40:00 63 /min [facility] Oxygen saturation in Arterial blood by Pulse oximetry 2023-08-20 20:40:00 98 /min [facility] Body temperature 2023-08-20 20:37:00 35.89 Toshia [facility] Respiratory rate 2023-08-20 20:37:00 17 /min [facility] Body weight 2023-08-20 20:37:00 61.916 kg [facility] BMI 2023-08-20 20:37:00 22.03 kg/m2 [facility] Systolic blood pressure 2023-08-18 15:35:00 142 mm[Hg] [facility] Diastolic blood pressure 2023-08-18 15:35:00 71 mm[Hg] [facility] Heart rate 2023-08-18 15:35:00 68 /min [facility] Respiratory rate 2023-08-18 15:33:00 18 /min [facility] Body weight 2023-08-18 15:33:00 63.005 kg [facility] BMI 2023-08-18 15:33:00 22.42 kg/m2 [facility] Oxygen saturation in Arterial blood by Pulse oximetry 2023-08-18 15:33:00 98 /min [facility] Systolic blood pressure 2023-08-18 14:20:00 174 mm[Hg] [facility] Diastolic blood pressure 2023-08-18 14:20:00 74 mm[Hg] [facility] Heart rate 2023-08-18 14:20:00 66 /min [facility] Body temperature 2023-08-18 14:20:00 36.28 Toshia [facility] Respiratory rate 2023-08-18 14:20:00 16 /min [facility] Body height 2023-08-18 14:20:00 167.6 cm [facility] Body weight 2023-08-18 14:20:00 63.05 kg [facility] BMI 2023-08-18 14:20:00 22.44 kg/m2 [facility] Oxygen saturation in Arterial blood by Pulse oximetry 2023-08-18 14:20:00 100 /min [facility] Systolic blood pressure 2023-07-21 15:20:00 148 mm[Hg] [facility] Diastolic blood pressure 2023-07-21 15:20:00 72 mm[Hg] [facility] Heart rate 2023-07-21 15:20:00 75 /min [facility] Body temperature 2023-07-21 15:20:00 35.56 Toshia [facility] Respiratory rate 2023-07-21 15:20:00 18 /min [facility] Body weight 2023-07-21 15:20:00 62.7 kg [facility] BMI 2023-07-21 15:20:00 22.65 kg/m2 [facility] Oxygen saturation in Arterial blood by Pulse oximetry 2023-07-21 15:20:00 98 /min [facility] Systolic blood pressure 2023-07-21 15:09:00 148 mm[Hg] [facility] Diastolic blood pressure 2023-07-21 15:09:00 72 mm[Hg] [facility] Heart rate 2023-07-21 15:09:00 75 /min [facility] Body temperature 2023-07-21 15:09:00 35.56 Toshia [facility] Respiratory rate 2023-07-21 15:09:00 16 /min [facility] Body height 2023-07-21 15:09:00 166.4 cm [facility] Body weight 2023-07-21 15:09:00 62.687 kg [facility] BMI 2023-07-21 15:09:00 22.65 kg/m2 [facility] Oxygen saturation in Arterial blood by Pulse oximetry 2023-07-21 15:09:00 98 /min [facility] Systolic blood pressure 2023-07-09 17:55:00 115 mm[Hg] [facility] Diastolic blood pressure 2023-07-09 17:55:00 63 mm[Hg] [facility] Heart rate 2023-07-09 17:55:00 70 /min [facility] Body temperature 2023-07-09 17:55:00 36 Toshia [facility] Respiratory rate 2023-07-09 17:55:00 17 /min [facility] Body weight 2023-07-09 17:55:00 64.683 kg [facility] BMI 2023-07-09 17:55:00 23.73 kg/m2 [facility] Oxygen saturation in Arterial blood by Pulse oximetry 2023-07-09 17:55:00 98 /min [facility] Systolic blood pressure 2023-07-07 15:18:00 140 mm[Hg] [facility] Diastolic blood pressure 2023-07-07 15:18:00 68 mm[Hg] [facility] [facility] 2023-07-07 15:18:00 60 /min [facility] Oxygen saturation in Arterial blood by Pulse oximetry 2023-07-07 15:18:00 100 /min [facility] Body temperature 2023-07-07 15:16:00 35.72 Toshia [facility] Respiratory rate 2023-07-07 15:16:00 17 /min [facility] Body weight 2023-07-07 15:16:00 66.407 kg [facility] BMI 2023-07-07 15:16:00 24.36 kg/m2 [facility] Systolic blood pressure 2023-07-03 16:32:00 130 mm[Hg] [facility] Diastolic blood pressure 2023-07-03 16:32:00 58 mm[Hg] [facility] Heart rate 2023-07-03 16:32:00 73 /min [facility] Respiratory rate 2023-07-03 16:32:00 22 /min [facility] Oxygen saturation in Arterial blood by Pulse oximetry 2023-07-03 16:32:00 98 /min [facility] Body temperature 2023-07-03 12:44:00 36.11 Toshia [facility] Body height 2023-07-03 12:44:00 165.1 cm [facility] Body weight 2023-07-03 12:44:00 64.411 kg [facility] BMI 2023-07-03 12:44:00 23.63 kg/m2 [facility] Systolic blood pressure 2023-06-25 17:28:00 112 mm[Hg] [facility] Diastolic blood pressure 2023-06-25 17:28:00 60 mm[Hg] [facility] Heart rate 2023-06-25 17:28:00 60 /min [facility] Body temperature 2023-06-25 17:28:00 35.83 Toshia [facility] Respiratory rate 2023-06-25 17:28:00 16 /min [facility] Body weight 2023-06-25 17:28:00 67.314 kg [facility] BMI 2023-06-25 17:28:00 23.95 kg/m2 [facility] Oxygen saturation in Arterial blood by Pulse oximetry 2023-06-25 17:28:00 100 /min [facility] Systolic blood pressure 2023-06-23 15:34:00 126 mm[Hg] [facility] Diastolic blood pressure 2023-06-23 15:34:00 46 mm[Hg] [facility] Heart rate 2023-06-23 15:34:00 60 /min [facility] Oxygen saturation in Arterial blood by Pulse oximetry 2023-06-23 15:34:00 99 /min [facility] Body temperature 2023-06-23 15:32:00 35.67 Toshia [facility] Respiratory rate 2023-06-23 15:32:00 17 /min [facility] Body weight 2023-06-23 15:32:00 68.584 kg [facility] BMI 2023-06-23 15:32:00 24.40 kg/m2 [facility] Systolic blood pressure 2023-06-23 14:10:00 132 mm[Hg] [facility] Diastolic blood pressure 2023-06-23 14:10:00 86 mm[Hg] [facility] Heart rate 2023-06-23 13:59:00 67 /min [facility] Body temperature 2023-06-23 13:59:00 36 Toshia [facility] Respiratory rate 2023-06-23 13:59:00 18 /min [facility] Body height 2023-06-23 13:59:00 167.6 cm [facility] Body weight 2023-06-23 13:59:00 68.539 kg [facility] BMI 2023-06-23 13:59:00 24.39 kg/m2 [facility] Oxygen saturation in Arterial blood by Pulse oximetry 2023-06-23 13:59:00 95 /min [facility] Systolic blood pressure 2023-06-09 14:29:00 142 mm[Hg] [facility] Diastolic blood pressure 2023-06-09 14:29:00 75 mm[Hg] [facility] Heart rate 2023-06-09 14:10:00 60 /min [facility] Oxygen saturation in Arterial blood by Pulse oximetry 2023-06-09 14:10:00 100 /min [facility] Body temperature 2023-06-09 14:09:00 35.5 Toshia [facility] Respiratory rate 2023-06-09 14:09:00 18 /min [facility] Body weight 2023-06-09 14:09:00 68.992 kg [facility] BMI 2023-06-09 14:09:00 24.55 kg/m2 [facility] Systolic blood pressure 2023-06-05 16:44:00 179 mm[Hg] [facility] Diastolic blood pressure 2023-06-05 16:44:00 84 mm[Hg] [facility] Heart rate 2023-06-05 16:44:00 63 /min [facility] Body temperature 2023-06-05 16:44:00 36.78 Toshia [facility] Respiratory rate 2023-06-05 16:44:00 16 /min [facility] Body height 2023-06-05 16:44:00 167.6 cm [facility] Body weight 2023-06-05 16:44:00 68.947 kg [facility] BMI 2023-06-05 16:44:00 24.53 kg/m2 [facility] Oxygen saturation in Arterial blood by Pulse oximetry 2023-06-05 16:44:00 95 /min [facility] Systolic blood pressure 2023-05-26 13:28:00 156 mm[Hg] [facility] Diastolic blood pressure 2023-05-26 13:28:00 85 mm[Hg] [facility] Heart rate 2023-05-26 13:28:00 68 /min [facility] Body temperature 2023-05-26 13:28:00 36.56 Toshia [facility] Respiratory rate 2023-05-26 13:28:00 18 /min [facility] Oxygen saturation in Arterial blood by Pulse oximetry 2023-05-26 13:28:00 97 /min [facility] Body weight 2023-05-26 08:19:00 69.491 kg [facility] BMI 2023-05-26 08:19:00 24.73 kg/m2 [facility] Body height 2023-05-21 06:09:00 167.6 cm [facility] Systolic blood pressure 2023-05-19 15:14:00 140 mm[Hg] [facility] Diastolic blood pressure 2023-05-19 15:14:00 73 mm[Hg] [facility] Heart rate 2023-05-19 15:14:00 60 /min [facility] Body temperature 2023-05-19 15:14:00 36.11 Toshia [facility] Respiratory rate 2023-05-19 15:14:00 17 /min [facility] Body weight 2023-05-19 15:14:00 69.491 kg [facility] BMI 2023-05-19 15:14:00 24.73 kg/m2 [facility] Oxygen saturation in Arterial blood by Pulse oximetry 2023-05-19 15:14:00 99 /min [facility] Systolic blood pressure 2023-05-19 13:25:00 166 mm[Hg] nurse Delilah notified [facility] Diastolic blood pressure 2023-05-19 13:25:00 82 mm[Hg] nurse Delilah notified [facility] Heart rate 2023-05-19 13:18:00 67 /min [facility] Body temperature 2023-05-19 13:18:00 36.11 Toshia [facility] Respiratory rate 2023-05-19 13:18:00 17 /min [facility] Body height 2023-05-19 13:18:00 167.6 cm [facility] Body weight 2023-05-19 13:18:00 69.536 kg [facility] BMI 2023-05-19 13:18:00 24.74 kg/m2 [facility] Oxygen saturation in Arterial blood by Pulse oximetry 2023-05-19 13:18:00 98 /min [facility] Systolic blood pressure 2023-04-28 15:52:00 148 mm[Hg] [facility] Diastolic blood pressure 2023-04-28 15:52:00 67 mm[Hg] [facility] Heart rate 2023-04-28 15:52:00 60 /min [facility] Oxygen saturation in Arterial blood by Pulse oximetry 2023-04-28 15:52:00 99 /min [facility] Body temperature 2023-04-28 15:49:00 36.22 Toshia [facility] Respiratory rate 2023-04-28 15:49:00 18 /min [facility] Body weight 2023-04-28 15:49:00 65.318 kg [facility] BMI 2023-04-28 15:49:00 23.24 kg/m2 [facility] Systolic blood pressure 2023-04-28 14:05:00 161 mm[Hg] [facility] Diastolic blood pressure 2023-04-28 14:05:00 80 mm[Hg] [facility] Heart rate 2023-04-28 14:05:00 61 /min [facility] Body temperature 2023-04-28 14:05:00 36.22 Toshia [facility] Respiratory rate 2023-04-28 14:05:00 16 /min [facility] Body height 2023-04-28 14:05:00 167.6 cm [facility] Body weight 2023-04-28 14:05:00 65.273 kg [facility] BMI 2023-04-28 14:05:00 23.23 kg/m2 [facility] Oxygen saturation in Arterial blood by Pulse oximetry 2023-04-28 14:05:00 99 /min [facility] Systolic blood pressure 2023-04-20 18:30:00 146 mm[Hg] [facility] Diastolic blood pressure 2023-04-20 18:30:00 82 mm[Hg] [facility] Body temperature 2023-04-20 18:30:00 36.44 Toshia [facility] Respiratory rate 2023-04-20 18:30:00 17 /min [facility] Oxygen saturation in Arterial blood by Pulse oximetry 2023-04-20 18:30:00 99 /min [facility] Heart rate 2023-04-20 17:30:00 61 /min [facility] Body height 2023-04-20 15:50:00 162.6 cm [facility] Body weight 2023-04-20 15:50:00 65.772 kg [facility] BMI 2023-04-20 15:50:00 24.89 kg/m2 [facility] Systolic blood pressure 2023-04-07 14:28:00 147 mm[Hg] [facility] Diastolic blood pressure 2023-04-07 14:28:00 74 mm[Hg] [facility] Heart rate 2023-04-07 14:28:00 61 /min [facility] Body temperature 2023-04-07 14:19:00 35.67 Toshia [facility] Respiratory rate 2023-04-07 14:19:00 18 /min [facility] Body weight 2023-04-07 14:19:00 65.7 kg [facility] BMI 2023-04-07 14:19:00 23.38 kg/m2 [facility] Oxygen saturation in Arterial blood by Pulse oximetry 2023-04-07 14:19:00 99 /min [facility] Systolic blood pressure 2023-04-07 13:09:00 155 mm[Hg] [facility] Diastolic blood pressure 2023-04-07 13:09:00 77 mm[Hg] [facility] Heart rate 2023-04-07 13:02:00 62 /min [facility] Body temperature 2023-04-07 13:02:00 35.67 Toshia [facility] Respiratory rate 2023-04-07 13:02:00 17 /min [facility] Body height 2023-04-07 13:02:00 167.6 cm [facility] Body weight 2023-04-07 13:02:00 65.726 kg [facility] BMI 2023-04-07 13:02:00 23.39 kg/m2 [facility] Oxygen saturation in Arterial blood by Pulse oximetry 2023-04-07 13:02:00 99 /min [facility] Systolic blood pressure 2023-04-02 16:24:00 126 mm[Hg] [facility] Diastolic blood pressure 2023-04-02 16:24:00 81 mm[Hg] [facility] Heart rate 2023-04-02 16:24:00 62 /min [facility] Body temperature 2023-04-02 16:24:00 36.39 Toshia [facility] Respiratory rate 2023-04-02 16:24:00 16 /min [facility] Oxygen saturation in Arterial blood by Pulse oximetry 2023-04-02 16:24:00 100 /min [facility] Body weight 2023-04-02 08:38:00 65.998 kg [facility] BMI 2023-04-02 08:38:00 23.48 kg/m2 [facility] Body height 2023-04-01 00:48:00 167.6 cm [facility] Systolic blood pressure 2023-03-18 15:55:00 133 mm[Hg] [facility] Diastolic blood pressure 2023-03-18 15:55:00 59 mm[Hg] [facility] Heart rate 2023-03-18 15:55:00 60 /min [facility] Oxygen saturation in Arterial blood by Pulse oximetry 2023-03-18 15:55:00 98 /min [facility] Body temperature 2023-03-18 15:54:00 35.78 Toshia [facility] Respiratory rate 2023-03-18 15:54:00 18 /min [facility] Body weight 2023-03-18 15:54:00 66.679 kg [facility] BMI 2023-03-18 15:54:00 23.73 kg/m2 [facility] Body weight 2023-03-17 18:25:00 66.225 kg [facility] BMI 2023-03-17 18:25:00 23.57 kg/m2 [facility] Systolic blood pressure 2023-03-17 16:04:00 130 mm[Hg] [facility] Diastolic blood pressure 2023-03-17 16:04:00 61 mm[Hg] [facility] Heart rate 2023-03-17 15:57:00 75 /min [facility] Body temperature 2023-03-17 15:57:00 36.28 Toshia [facility] Respiratory rate 2023-03-17 15:57:00 18 /min [facility] Body height 2023-03-17 15:57:00 167.6 cm [facility] Body weight 2023-03-17 15:57:00 66.497 kg [facility] BMI 2023-03-17 15:57:00 23.66 kg/m2 [facility] Oxygen saturation in Arterial blood by Pulse oximetry 2023-03-17 15:57:00 99 /min [facility] Systolic blood pressure 2023-02-24 15:25:00 131 mm[Hg] [facility] Diastolic blood pressure 2023-02-24 15:25:00 76 mm[Hg] [facility] Heart rate 2023-02-24 15:19:00 65 /min [facility] Body temperature 2023-02-24 15:19:00 35.39 Toshia [facility] Respiratory rate 2023-02-24 15:19:00 17 /min [facility] Body height 2023-02-24 15:19:00 167.6 cm [facility] Body weight 2023-02-24 15:19:00 67.223 kg [facility] BMI 2023-02-24 15:19:00 23.92 kg/m2 [facility] Oxygen saturation in Arterial blood by Pulse oximetry 2023-02-24 15:19:00 99 /min [facility] Systolic blood pressure 2023-02-24 14:09:00 153 mm[Hg] [facility] Diastolic blood pressure 2023-02-24 14:09:00 83 mm[Hg] [facility] Heart rate 2023-02-24 14:08:00 60 /min [facility] Body temperature 2023-02-24 14:08:00 36.44 Toshia [facility] Body height 2023-02-24 14:08:00 167.6 cm [facility] Body weight 2023-02-24 14:08:00 67.405 kg [facility] BMI 2023-02-24 14:08:00 23.98 kg/m2 [facility] Oxygen saturation in Arterial blood by Pulse oximetry 2023-02-24 14:08:00 100 /min [facility] Systolic blood pressure 2023-02-04 15:24:00 140 mm[Hg] [facility] Diastolic blood pressure 2023-02-04 15:24:00 65 mm[Hg] [facility] Heart rate 2023-02-04 15:22:00 60 /min [facility] Body temperature 2023-02-04 15:22:00 35.78 Toshia [facility] Respiratory rate 2023-02-04 15:22:00 18 /min [facility] Body weight 2023-02-04 15:22:00 66.497 kg [facility] BMI 2023-02-04 15:22:00 25.16 kg/m2 [facility] Oxygen saturation in Arterial blood by Pulse oximetry 2023-02-04 15:22:00 98 /min [facility] Systolic blood pressure 2023-02-04 14:00:00 149 mm[Hg] [facility] Diastolic blood pressure 2023-02-04 14:00:00 82 mm[Hg] [facility] Heart rate 2023-02-04 14:00:00 60 /min [facility] Body temperature 2023-02-04 13:10:00 36.22 Toshia [facility] Respiratory rate 2023-02-04 13:10:00 16 /min [facility] Body height 2023-02-04 13:10:00 162.6 cm [facility] Body weight 2023-02-04 13:10:00 66.543 kg [facility] BMI 2023-02-04 13:10:00 25.18 kg/m2 [facility] Oxygen saturation in Arterial blood by Pulse oximetry 2023-02-04 13:10:00 97 /min [facility] Body weight 2023-01-22 20:47:00 65.772 kg [facility] BMI 2023-01-22 20:47:00 23.40 kg/m2 [facility] Systolic blood pressure 2023-01-21 14:47:00 149 mm[Hg] [facility] Diastolic blood pressure 2023-01-21 14:47:00 78 mm[Hg] [facility] Heart rate 2023-01-21 14:47:00 60 /min [facility] Body temperature 2023-01-21 14:47:00 35.83 Toshia [facility] Respiratory rate 2023-01-21 14:47:00 16 /min [facility] Body height 2023-01-21 14:47:00 167.6 cm [facility] Body weight 2023-01-21 14:47:00 65.908 kg [facility] BMI 2023-01-21 14:47:00 23.45 kg/m2 [facility] Oxygen saturation in Arterial blood by Pulse oximetry 2023-01-21 14:47:00 98 /min [facility] Body temperature 2023-01-14 11:29:24 38.72 Toshia [facility] Systolic blood pressure 2023-01-14 11:00:00 154 mm[Hg] [facility] Diastolic blood pressure 2023-01-14 11:00:00 61 mm[Hg] [facility] Respiratory rate 2023-01-14 11:00:00 28 /min [facility] Heart rate 2023-01-14 10:11:52 68 /min [facility] Oxygen saturation in Arterial blood by Pulse oximetry 2023-01-14 10:11:52 97 /min [facility] Body height 2023-01-14 10:04:00 167.6 cm [facility] Body weight 2023-01-14 10:04:00 63.504 kg [facility] BMI 2023-01-14 10:04:00 22.60 kg/m2 [facility] Systolic blood pressure 2022-12-24 16:07:00 121 mm[Hg] [facility] Diastolic blood pressure 2022-12-24 16:07:00 69 mm[Hg] [facility] Heart rate 2022-12-24 16:07:00 64 /min [facility] Body temperature 2022-12-24 16:07:00 35.72 Toshia [facility] Respiratory rate 2022-12-24 16:07:00 18 /min [facility] Body weight 2022-12-24 16:07:00 68 kg [facility] BMI 2022-12-24 16:07:00 24.95 kg/m2 [facility] Oxygen saturation in Arterial blood by Pulse oximetry 2022-12-24 16:07:00 98 /min [facility] Systolic blood pressure 2022-12-24 14:40:00 121 mm[Hg] [facility] Diastolic blood pressure 2022-12-24 14:40:00 69 mm[Hg] [facility] Heart rate 2022-12-24 14:40:00 64 /min [facility] Body temperature 2022-12-24 14:40:00 35.72 Toshia [facility] Respiratory rate 2022-12-24 14:40:00 16 /min [facility] Body height 2022-12-24 14:40:00 165.1 cm [facility] Body weight 2022-12-24 14:40:00 68.04 kg [facility] BMI 2022-12-24 14:40:00 24.96 kg/m2 [facility] Oxygen saturation in Arterial blood by Pulse oximetry 2022-12-24 14:40:00 98 /min [facility] Systolic blood pressure 2022-12-16 18:24:00 148 mm[Hg] [facility] Diastolic blood pressure 2022-12-16 18:24:00 79 mm[Hg] [facility] Body temperature 2022-12-16 18:24:00 36.22 Toshia [facility] Heart rate 2022-12-16 18:14:00 61 /min [facility] Respiratory rate 2022-12-16 18:14:00 18 /min [facility] Body weight 2022-12-16 18:14:00 66.044 kg [facility] BMI 2022-12-16 18:14:00 23.50 kg/m2 [facility] Oxygen saturation in Arterial blood by Pulse oximetry 2022-12-16 18:14:00 100 /min [facility] Systolic blood pressure 2022-12-14 04:00:00 161 mm[Hg] [facility] Diastolic blood pressure 2022-12-14 04:00:00 74 mm[Hg] [facility] Heart rate 2022-12-14 04:00:00 62 /min [facility] Respiratory rate 2022-12-14 04:00:00 18 /min [facility] Oxygen saturation in Arterial blood by Pulse oximetry 2022-12-14 04:00:00 100 /min [facility] Body temperature 2022-12-14 01:46:00 36.5 Toshia [facility] Body weight 2022-12-14 01:46:00 66.225 kg [facility] BMI 2022-12-14 01:46:00 23.57 kg/m2 [facility] Systolic blood pressure 2022-12-07 14:51:00 124 mm[Hg] [facility] Diastolic blood pressure 2022-12-07 14:51:00 71 mm[Hg] [facility] Heart rate 2022-12-07 14:51:00 60 /min [facility] Body height 2022-12-07 14:51:00 167.6 cm [facility] Body weight 2022-12-07 14:51:00 66.225 kg [facility] BMI 2022-12-07 14:51:00 23.57 kg/m2 [facility] Oxygen saturation in Arterial blood by Pulse oximetry 2022-12-07 14:51:00 99 /min [facility] Systolic blood pressure 2022-12-03 14:24:00 168 mm[Hg] at home reading [facility] Diastolic blood pressure 2022-12-03 14:24:00 68 mm[Hg] at home reading [facility] Heart rate 2022-12-03 14:24:00 78 /min at home reading [facility] Body temperature 2022-12-03 14:15:00 35.61 Toshia [facility] Respiratory rate 2022-12-03 14:15:00 18 /min [facility] Body height 2022-12-03 14:15:00 165.1 cm [facility] Body weight 2022-12-03 14:15:00 67.949 kg [facility] BMI 2022-12-03 14:15:00 24.93 kg/m2 [facility] Oxygen saturation in Arterial blood by Pulse oximetry 2022-12-03 14:15:00 100 /min [facility] Systolic blood pressure 2022-12-03 16:45:00 137 mm[Hg] [facility] Diastolic blood pressure 2022-12-03 16:45:00 57 mm[Hg] [facility] Heart rate 2022-12-03 16:45:00 70 /min [facility] Body temperature 2022-12-03 16:45:00 35.61 Toshia [facility] Respiratory rate 2022-12-03 16:45:00 20 /min [facility] Body weight 2022-12-03 16:45:00 67.903 kg [facility] BMI 2022-12-03 16:45:00 24.91 kg/m2 [facility] Oxygen saturation in Arterial blood by Pulse oximetry 2022-12-03 16:45:00 100 /min [facility] Systolic blood pressure 2022-11-24 16:21:00 148 mm[Hg] [facility] Diastolic blood pressure 2022-11-24 16:21:00 73 mm[Hg] [facility] Heart rate 2022-11-24 16:21:00 63 /min [facility] Body temperature 2022-11-24 16:21:00 36.39 Toshia [facility] Respiratory rate 2022-11-24 16:21:00 18 /min [facility] Oxygen saturation in Arterial blood by Pulse oximetry 2022-11-24 16:21:00 98 /min [facility] Body height 2022-11-20 14:18:00 165.1 cm [facility] Body weight 2022-11-20 14:18:00 67.586 kg [facility] BMI 2022-11-20 14:18:00 24.79 kg/m2 [facility] Systolic blood pressure 2022-11-23 23:19:00 152 mm[Hg] [facility] Diastolic blood pressure 2022-11-23 23:19:00 83 mm[Hg] [facility] Respiratory rate 2022-11-23 23:19:00 16 /min [facility] Oxygen saturation in Arterial blood by Pulse oximetry 2022-11-23 23:19:00 100 /min [facility] Heart rate 2022-11-23 16:25:00 53 /min [facility] Body temperature 2022-11-23 16:25:00 36.39 Toshia [facility] Body height 2022-11-20 14:18:00 165.1 cm [facility] Body weight 2022-11-20 14:18:00 67.586 kg [facility] BMI 2022-11-20 14:18:00 24.79 kg/m2 [facility] Heart rate 2022-11-20 13:52:00 41 /min [facility] Oxygen saturation in Arterial blood by Pulse oximetry 2022-11-20 13:52:00 96 /min [facility] Systolic blood pressure 2022-11-20 13:14:00 131 mm[Hg] [facility] Diastolic blood pressure 2022-11-20 13:14:00 63 mm[Hg] [facility] Body temperature 2022-11-20 13:14:00 36.06 Toshia [facility] Respiratory rate 2022-11-20 13:14:00 17 /min [facility] Body weight 2022-11-20 13:14:00 67.756 kg [facility] BMI 2022-11-20 13:14:00 24.86 kg/m2 [facility] Systolic blood pressure 2022-11-12 17:08:00 135 mm[Hg] [facility] Diastolic blood pressure 2022-11-12 17:08:00 65 mm[Hg] [facility] Heart rate 2022-11-12 17:08:00 47 /min [facility] Body temperature 2022-11-12 17:08:00 35.89 Toshia [facility] Respiratory rate 2022-11-12 17:08:00 18 /min [facility] Body weight 2022-11-12 17:08:00 67.7 kg [facility] BMI 2022-11-12 17:08:00 24.84 kg/m2 [facility] Oxygen saturation in Arterial blood by Pulse oximetry 2022-11-12 17:08:00 100 /min [facility] Systolic blood pressure 2022-11-12 15:09:00 135 mm[Hg] [facility] Diastolic blood pressure 2022-11-12 15:09:00 65 mm[Hg] [facility] Heart rate 2022-11-12 15:09:00 47 /min [facility] Body temperature 2022-11-12 15:09:00 35.89 Toshia [facility] Respiratory rate 2022-11-12 15:09:00 16 /min [facility] Body height 2022-11-12 15:09:00 165.1 cm [facility] Body weight 2022-11-12 15:09:00 67.677 kg [facility] BMI 2022-11-12 15:09:00 24.83 kg/m2 [facility] Oxygen saturation in Arterial blood by Pulse oximetry 2022-11-12 15:09:00 100 /min [facility] Systolic blood pressure 2022-10-22 15:32:00 138 mm[Hg] [facility] Diastolic blood pressure 2022-10-22 15:32:00 63 mm[Hg] [facility] Heart rate 2022-10-22 15:32:00 45 /min [facility] Body temperature 2022-10-22 15:32:00 36 Toshia [facility] Respiratory rate 2022-10-22 15:32:00 18 /min [facility] Body weight 2022-10-22 15:32:00 66.9 kg [facility] BMI 2022-10-22 15:32:00 24.54 kg/m2 [facility] Oxygen saturation in Arterial blood by Pulse oximetry 2022-10-22 15:32:00 99 /min [facility] Heart rate 2022-10-22 14:15:00 51 /min [facility] Systolic blood pressure 2022-10-22 13:52:00 147 mm[Hg] [facility] Diastolic blood pressure 2022-10-22 13:52:00 63 mm[Hg] [facility] Body temperature 2022-10-22 13:41:00 36.06 Toshia [facility] Respiratory rate 2022-10-22 13:41:00 17 /min [facility] Body weight 2022-10-22 13:41:00 67.405 kg [facility] BMI 2022-10-22 13:41:00 24.73 kg/m2 [facility] Oxygen saturation in Arterial blood by Pulse oximetry 2022-10-22 13:41:00 99 /min [facility] Systolic blood pressure 2022-10-01 15:39:00 145 mm[Hg] [facility] Diastolic blood pressure 2022-10-01 15:39:00 68 mm[Hg] [facility] Heart rate 2022-10-01 15:39:00 63 /min [facility] Body temperature 2022-10-01 15:39:00 35.72 Toshia [facility] Respiratory rate 2022-10-01 15:39:00 18 /min [facility] Body weight 2022-10-01 15:39:00 66.7 kg [facility] BMI 2022-10-01 15:39:00 24.47 kg/m2 [facility] Oxygen saturation in Arterial blood by Pulse oximetry 2022-10-01 15:39:00 98 /min [facility] Systolic blood pressure 2022-10-01 14:42:00 143 mm[Hg] [facility] Diastolic blood pressure 2022-10-01 14:42:00 65 mm[Hg] [facility] Heart rate 2022-10-01 14:32:00 63 /min [facility] Body temperature 2022-10-01 14:32:00 35.72 Toshia [facility] Respiratory rate 2022-10-01 14:32:00 17 /min [facility] Body height 2022-10-01 14:32:00 165.1 cm [facility] Body weight 2022-10-01 14:32:00 66.724 kg [facility] BMI 2022-10-01 14:32:00 24.48 kg/m2 [facility] Oxygen saturation in Arterial blood by Pulse oximetry 2022-10-01 14:32:00 98 /min [facility] Systolic blood pressure 2022-09-10 15:41:00 135 mm[Hg] [facility] Diastolic blood pressure 2022-09-10 15:41:00 77 mm[Hg] [facility] Heart rate 2022-09-10 15:41:00 59 /min [facility] Body temperature 2022-09-10 15:41:00 36.06 Toshia [facility] Respiratory rate 2022-09-10 15:41:00 18 /min [facility] Body weight 2022-09-10 15:41:00 67.4 kg [facility] BMI 2022-09-10 15:41:00 24.73 kg/m2 [facility] Oxygen saturation in Arterial blood by Pulse oximetry 2022-09-10 15:41:00 99 /min [facility] Systolic blood pressure 2022-09-10 14:38:00 129 mm[Hg] [facility] Diastolic blood pressure 2022-09-10 14:38:00 67 mm[Hg] [facility] Heart rate 2022-09-10 14:38:00 81 /min [facility] Body temperature 2022-09-10 14:38:00 36.44 Toshia [facility] Respiratory rate 2022-09-10 14:38:00 18 /min [facility] Body weight 2022-09-10 14:38:00 68.856 kg [facility] BMI 2022-09-10 14:38:00 25.26 kg/m2 [facility] Oxygen saturation in Arterial blood by Pulse oximetry 2022-09-10 14:38:00 97 /min [facility] Systolic blood pressure 2022-08-31 21:22:00 125 mm[Hg] [facility] Diastolic blood pressure 2022-08-31 21:22:00 63 mm[Hg] [facility] Heart rate 2022-08-31 21:22:00 59 /min [facility] Body temperature 2022-08-31 21:22:00 36.67 Toshia [facility] Respiratory rate 2022-08-31 21:22:00 18 /min [facility] Body height 2022-08-31 21:22:00 165.1 cm [facility] Body weight 2022-08-31 21:22:00 66.86 kg [facility] BMI 2022-08-31 21:22:00 24.53 kg/m2 [facility] Oxygen saturation in Arterial blood by Pulse oximetry 2022-08-31 21:22:00 99 /min [facility] Systolic blood pressure 2022-08-20 16:08:00 117 mm[Hg] [facility] Diastolic blood pressure 2022-08-20 16:08:00 59 mm[Hg] [facility] Heart rate 2022-08-20 16:08:00 48 /min [facility] Body temperature 2022-08-20 16:08:00 35.83 Toshia [facility] Respiratory rate 2022-08-20 16:08:00 18 /min [facility] Body weight 2022-08-20 16:08:00 68.2 kg [facility] BMI 2022-08-20 16:08:00 24.64 kg/m2 [facility] Oxygen saturation in Arterial blood by Pulse oximetry 2022-08-20 16:08:00 99 /min [facility] Systolic blood pressure 2022-08-20 14:18:00 140 mm[Hg] [facility] Diastolic blood pressure 2022-08-20 14:18:00 64 mm[Hg] [facility] Heart rate 2022-08-20 14:18:00 48 /min [facility] Body temperature 2022-08-20 14:18:00 35.83 Toshia [facility] Respiratory rate 2022-08-20 14:18:00 16 /min [facility] Body height 2022-08-20 14:18:00 166.4 cm [facility] Body weight 2022-08-20 14:18:00 68.176 kg [facility] BMI 2022-08-20 14:18:00 24.63 kg/m2 [facility] Oxygen saturation in Arterial blood by Pulse oximetry 2022-08-20 14:18:00 99 /min [facility] Systolic blood pressure 2022-08-14 14:36:00 126 mm[Hg] [facility] Diastolic blood pressure 2022-08-14 14:36:00 69 mm[Hg] [facility] Heart rate 2022-08-14 14:36:00 50 /min [facility] Body temperature 2022-08-14 14:36:00 35.94 Toshia [facility] Respiratory rate 2022-08-14 14:36:00 18 /min [facility] Body height 2022-08-14 14:36:00 167.6 cm [facility] Body weight 2022-08-14 14:36:00 68.357 kg [facility] BMI 2022-08-14 14:36:00 24.32 kg/m2 [facility] Oxygen saturation in Arterial blood by Pulse oximetry 2022-08-14 14:36:00 98 /min [facility] Systolic blood pressure 2022-07-30 15:18:00 136 mm[Hg] [facility] Diastolic blood pressure 2022-07-30 15:18:00 62 mm[Hg] [facility] Heart rate 2022-07-30 15:18:00 51 /min [facility] Body temperature 2022-07-30 15:18:00 35.94 Toshia [facility] Respiratory rate 2022-07-30 15:18:00 18 /min [facility] Body weight 2022-07-30 15:18:00 71 kg [facility] BMI 2022-07-30 15:18:00 25.26 kg/m2 [facility] Oxygen saturation in Arterial blood by Pulse oximetry 2022-07-30 15:18:00 100 /min [facility] Systolic blood pressure 2022-07-30 14:07:00 136 mm[Hg] [facility] Diastolic blood pressure 2022-07-30 14:07:00 62 mm[Hg] [facility] Heart rate 2022-07-30 14:02:00 51 /min [facility] Body temperature 2022-07-30 14:02:00 35.94 Toshia [facility] Respiratory rate 2022-07-30 14:02:00 18 /min [facility] Body height 2022-07-30 14:02:00 167.6 cm [facility] Body weight 2022-07-30 14:02:00 70.988 kg [facility] BMI 2022-07-30 14:02:00 25.26 kg/m2 [facility] Oxygen saturation in Arterial blood by Pulse oximetry 2022-07-30 14:02:00 100 /min [facility] Systolic blood pressure 2022-07-09 17:52:00 140 mm[Hg] [facility] Diastolic blood pressure 2022-07-09 17:52:00 63 mm[Hg] [facility] Heart rate 2022-07-09 17:49:00 46 /min [facility] Body temperature 2022-07-09 17:49:00 35.72 Toshia [facility] Respiratory rate 2022-07-09 17:49:00 18 /min [facility] Body weight 2022-07-09 17:49:00 70.7 kg [facility] BMI 2022-07-09 17:49:00 25.16 kg/m2 [facility] Oxygen saturation in Arterial blood by Pulse oximetry 2022-07-09 17:49:00 100 /min [facility] Systolic blood pressure 2022-07-09 16:45:00 140 mm[Hg] [facility] Diastolic blood pressure 2022-07-09 16:45:00 63 mm[Hg] [facility] Heart rate 2022-07-09 16:38:00 46 /min [facility] Body temperature 2022-07-09 16:38:00 35.72 Toshia [facility] Respiratory rate 2022-07-09 16:38:00 18 /min [facility] Body height 2022-07-09 16:38:00 167.6 cm [facility] Body weight 2022-07-09 16:38:00 70.716 kg [facility] BMI 2022-07-09 16:38:00 25.16 kg/m2 [facility] Oxygen saturation in Arterial blood by Pulse oximetry 2022-07-09 16:38:00 100 /min [facility] Systolic blood pressure 2022-06-03 17:29:00 128 mm[Hg] [facility] Diastolic blood pressure 2022-06-03 17:29:00 56 mm[Hg] [facility] Heart rate 2022-06-03 17:29:00 56 /min [facility] Body temperature 2022-06-03 17:29:00 35.67 Toshia [facility] Respiratory rate 2022-06-03 17:29:00 18 /min [facility] Body weight 2022-06-03 17:29:00 72.1 kg [facility] BMI 2022-06-03 17:29:00 25.66 kg/m2 [facility] Oxygen saturation in Arterial blood by Pulse oximetry 2022-06-03 17:29:00 98 /min [facility] Systolic blood pressure 2022-06-03 16:00:00 128 mm[Hg] [facility] Diastolic blood pressure 2022-06-03 16:00:00 56 mm[Hg] [facility] Heart rate 2022-06-03 16:00:00 56 /min [facility] Body temperature 2022-06-03 16:00:00 35.67 Toshia [facility] Respiratory rate 2022-06-03 16:00:00 17 /min [facility] Body height 2022-06-03 16:00:00 167.6 cm [facility] Body weight 2022-06-03 16:00:00 72.077 kg [facility] BMI 2022-06-03 16:00:00 25.65 kg/m2 [facility] Oxygen saturation in Arterial blood by Pulse oximetry 2022-06-03 16:00:00 98 /min [facility] Systolic blood pressure 2022-05-18 02:39:00 144 mm[Hg] [facility] Diastolic blood pressure 2022-05-18 02:39:00 88 mm[Hg] [facility] Heart rate 2022-05-18 02:39:00 44 /min [facility] Respiratory rate 2022-05-18 02:39:00 15 /min [facility] Oxygen saturation in Arterial blood by Pulse oximetry 2022-05-18 02:39:00 97 /min [facility] Body temperature 2022-05-17 23:33:00 36.17 Toshia [facility] Body weight 2022-05-17 23:33:00 68.04 kg [facility] BMI 2022-05-17 23:33:00 24.21 kg/m2 [facility] Systolic blood pressure 2022-05-13 19:31:00 123 mm[Hg] [facility] Diastolic blood pressure 2022-05-13 19:31:00 76 mm[Hg] [facility] Heart rate 2022-05-13 19:31:00 81 /min [facility] Body temperature 2022-05-13 19:31:00 36.17 Toshia [facility] Respiratory rate 2022-05-13 19:31:00 18 /min [facility] Body weight 2022-05-13 19:31:00 69.5 kg [facility] BMI 2022-05-13 19:31:00 24.73 kg/m2 [facility] Oxygen saturation in Arterial blood by Pulse oximetry 2022-05-13 19:31:00 97 /min [facility] Systolic blood pressure 2022-05-13 18:07:00 123 mm[Hg] [facility] Diastolic blood pressure 2022-05-13 18:07:00 76 mm[Hg] [facility] Heart rate 2022-05-13 18:07:00 81 /min [facility] Body temperature 2022-05-13 18:07:00 36.17 Toshia [facility] Respiratory rate 2022-05-13 18:07:00 18 /min [facility] Body height 2022-05-13 18:07:00 167.6 cm [facility] Body weight 2022-05-13 18:07:00 69.4 kg [facility] BMI 2022-05-13 18:07:00 24.69 kg/m2 [facility] Oxygen saturation in Arterial blood by Pulse oximetry 2022-05-13 18:07:00 97 /min [facility] Systolic blood pressure 2022-04-22 15:16:00 159 mm[Hg] [facility] Diastolic blood pressure 2022-04-22 15:16:00 67 mm[Hg] [facility] Heart rate 2022-04-22 15:16:00 49 /min [facility] Body temperature 2022-04-22 15:15:00 35.83 Toshia [facility] Respiratory rate 2022-04-22 15:15:00 16 /min [facility] Body height 2022-04-22 15:15:00 167.6 cm [facility] Body weight 2022-04-22 15:15:00 69.718 kg [facility] BMI 2022-04-22 15:15:00 24.81 kg/m2 [facility] Oxygen saturation in Arterial blood by Pulse oximetry 2022-04-22 15:15:00 99 /min [facility] Procedures Procedure Date / Time Performed Performing Clinician Source URINALYSIS 2023-09-19 17:09:00 Rosetta [facility] TROPONIN I 2023-09-19 15:54:00 Rosetta Briones [facility] COMP. METABOLIC PANEL ([id number]) 2023-09-19 15:54:00 Rosetta Briones [facility] CBC WITH DIFF 2023-09-19 15:54:00 Rosetta Briones [facility] CONSENT/REFUSAL FOR DIAGNOSIS AND TREATMENT 2023-09-19 15:12:00 Doctor Unassigned, [place] [facility] CONSENT/REFUSAL FOR DIAGNOSIS AND TREATMENT 2023-09-16 23:54:23 Doctor Unassigned, [place] [facility] URINALYSIS 2023-09-13 15:15:00 Tanesha White [facility] COMP. METABOLIC PANEL ([id number]) 2023-09-13 15:08:00 Tanesha White [facility] CBC WITH DIFF 2023-09-13 15:08:00 Tanesha White [facility] DME/SUPPLY JUSTIFICATION 2023-09-01 06:01:00 Doc tor Unassigned, [place] [facility] URINE CULTURE 2023-08-18 15:14:00 [facility] 2023-08-16 14:44:00 Tanesha [facility] DME/SUPPLY JUSTIFICATION 2023-08-12 06:01:00 Doc tor Unassigned, [place] [facility] POCT GLUCOSE (AUTOMATED) 2023-08-05 16:52:00 Osmin Jerez [facility] LIPASE 2023-07-03 13:48:00 [facility] 2023-07-03 13:48:00 [facility] 2023-07-03 13:48:00 [facility] COMP. METABOLIC PANEL ([id number]) 2023-07-03 13:48:00 Ada Tomlinson [facility] CBC WITH DIFF 2023-07-03 13:48:00 [facility] 2023-07-03 13:48:00 Ada Tomlinson Un [facility] CONSENT/REFUSAL FOR DIAGNOSIS AND TREATMENT 2023-07-03 12:47:57 Doctor Unassigned, [place] [facility] ASSIGNMENT OF BENEFITS 2023-06-05 17:55:32 Docto r Unassigned, [place] [facility] ASSIGNMENT OF BENEFITS 2023-06-05 17:03:33 Docto r Unassigned, [place] [facility] CONSENT/REFUSAL FOR DIAGNOSIS AND TREATMENT 2023-06-05 16:37:44 Doctor Unassigned, [place] [facility] POCT GLUCOSE (AUTOMATED) 2023-05-26 13:27:00 Shirlene Martinez [facility] COMP. METABOLIC PANEL ([id number]) 2023-05-26 09:29:00 Erika Blancas [facility] CBC WITH DIFF 2023-05-26 09:29:00 Erika Blancas [facility] POCT GLUCOSE (AUTOMATED) 2023-05-26 02:34:00 Shirlene Martinez [facility] POCT GLUCOSE (AUTOMATED) 2023-05-25 21:48:00 Shirlene Martinez [facility] XR CHEST 1 VW 2023-05-25 21:34:56 Kamlesh Nguyen [facility] POCT GLUCOSE (AUTOMATED) 2023-05-25 17:01:00 Shirlene Martinez [facility] POCT GLUCOSE (AUTOMATED) 2023-05-25 13:34:00 Shirlene Martinez [facility] BASIC METABOLIC PANEL (NA, K, CL, CO2, GLUCOSE, BUN, CREATININE, CA) 2023-05-25 09:23:00 Ronit Cannon [facility] CBC WITH DIFF 2023-05-25 09:23:00 Ronit Cannon [facility] POCT GLUCOSE (AUTOMATED) 2023-05-25 02:52:00 Shirlene Martinez [facility] POCT GLUCOSE (AUTOMATED) 2023-05-24 21:41:00 Shirlene Martinez [facility] POCT GLUCOSE (AUTOMATED) 2023-05-24 17:05:00 Shirlene Martinez [facility] POCT GLUCOSE (AUTOMATED) 2023-05-24 13:17:00 Shirlene Martinez [facility] BASIC METABOLIC PANEL (NA, K, CL, CO2, GLUCOSE, BUN, CREATININE, CA) 2023-05-24 10:31:00 Ryan Pedro Luis [facility] CBC WITHOUT DIFF 2023-05-24 09:00:00 Pedro Luis Davis [facility] POCT GLUCOSE (AUTOMATED) 2023-05-24 01:17:00 Shirlene Martinez [facility] POCT GLUCOSE (AUTOMATED) 2023-05-23 21:50:00 Shirlene Martinez [facility] CBC WITH DIFF 2023-05-23 18:53:00 Pedro Luis Davis [facility] POCT GLUCOSE (AUTOMATED) 2023-05-23 16:50:00 Shirlene Martinez [facility] POCT GLUCOSE (AUTOMATED) 2023-05-23 13:04:00 Shirlene Martinez [facility] POCT GLUCOSE (AUTOMATED) 2023-05-23 02:44:00 Shirlene Martinez [facility] POCT GLUCOSE (AUTOMATED) 2023-05-22 16:59:00 Shirlene Martinez [facility] POCT GLUCOSE (AUTOMATED) 2023-05-22 13:15:00 Shirlene Martinez [facility] BLOOD CULTURE SCREEN 2023-05-22 09:25:00 Florina Desouza [facility] MAGNESIUM 2023-05-22 09:25:00 Deng Martinez Uni [facility] [place] [place] COMP. METABOLIC PANEL ([id number]) 2023-05-22 09:25:00 Deng Martinez [facility] CBC WITH DIFF 2023-05-22 09:25:00 [facility] (A1C) 2023-05-22 09:25:00 Ivan Summers [facility] MYCOPLASMA PNEUMONIAE ANTIBODY, IGM 2023-05-22 09:25:00 Yumiko Desouza [facility] POCT GLUCOSE (AUTOMATED) 2023-05-22 04:51:00 Shirlene Martinez [facility] POCT GLUCOSE (AUTOMATED) 2023-05-22 01:33:00 Shirlene Martinez [facility] PROCALCITONIN 2023-05-21 09:16:00 [facility] 2023-05-21 05:04:00 Deng Martinez Uni [facility] [place] [place] MAGNESIUM 2023-05-21 05:04:00 Deng Martinez [facility] BASIC METABOLIC PANEL (NA, K, CL, CO2, GLUCOSE, BUN, CREATININE, CA) 2023-05-21 05:04:00 Deng Martinez [facility] CBC WITH DIFF 2023-05-21 05:04:00 [facility] 2023-05-21 04:16:00 Emma Saha [facility] HB ECG ROUTINE & RHYTHM STRIP 2023-05-21 02:32:03 Emma Saha [facility] XR CHEST 1 VW 2023-05-21 02:25:48 Emma Saha [facility] BLOOD CULTURE SCREEN 2023-05-21 02:24:00 Alejandra Saha [facility] CREATINE KINASE 2023-05-21 02:24:00 Emma Saha [facility] TROPONIN I 2023-05-21 02:24:00 Emma Saha Un [facility] COMP. METABOLIC PANEL ([id number]) 2023-05-21 02:24:00 Emma Saha [facility] CBC WITH DIFF 2023-05-21 02:24:00 [facility] 2023-05-21 02:24:00 Emma Saha Un [facility] RAPID INFLUENZA A/B 2023-05-21 02:24:00 Renard Saha [facility] BLOOD CULTURE WORKUP 2023-05-21 02:24:00 Alejandra Saha [facility] GRAM NEGATIVE BLOOD PATHOGENS DNA PROBE-ANAEROBIC 2023-05-21 02:24:00 Emma Saha [facility] COVID-19 (ID NOW RAPID TESTING) 2023-05-21 02:24:00 Emma Saha [facility] LAB ONLY COVID INTERPRETATION 2023-05-21 02:24:00 Emma Saha [facility] CONSENT/REFUSAL FOR DIAGNOSIS AND TREATMENT 2023-05-21 01:43:51 Doctor Unassigned, [place] [facility] DISCLOSURE AND CONSENT, MEDICAL AND SURGICAL PROCEDURES 2023-05-19 05:01:00 Doctor Unassigned, [place] [facility] XR CHEST 1 VW 2023-04-20 17:01:52 Ary Stokes [facility] LACTIC ACID WHOLE BLOOD 2023-04-20 16:58:00 Brenton Stokes [facility] COMP. METABOLIC PANEL ([id number]) 2023-04-20 16:56:00 Ary Stokes [facility] CBC WITH DIFF 2023-04-20 16:56:[address] [facility] URINALYSIS 2023-04-20 [facility]:56[facility] TREATMENT 2023-04-20 15:45:39 Doctor Unassigned, [place] [facility] CBC WITH DIFF 2023-04-06 13:45:00 [facility] 2023-04-02 09:33:00 Tim Busby [facility] BASIC METABOLIC PANEL (NA, K, CL, CO2, GLUCOSE, BUN, CREATININE, CA) 2023-04-02 09:33:00 Tim Busby [facility] POCT GLUCOSE (AUTOMATED) 2023-04-02 01:08:00 Avila Busby [facility] POCT GLUCOSE (AUTOMATED) 2023-04-01 21:32:00 Avila Busby harmony [facility] POCT GLUCOSE (AUTOMATED) 2023-04-01 16:37:00 Avila Busby harmony [facility] URINALYSIS 2023-04-01 15:11:[address] [facility] [place] [place] POCT GLUCOSE (AUTOMATED) 2023-04-01 12:47:00 Avila Busby [facility] PHOSPHORUS 2023-04-01 08:48:00 Tim Busby [facility] MAGNESIUM 2023-04-01 08:47:00 Tim Busby [facility] BASIC METABOLIC PANEL (NA, K, CL, CO2, GLUCOSE, BUN, CREATININE, CA) 2023-04-01 08:47:00 Tim Busby [facility] CBC WITH DIFF 2023-04-01 08:47:00 Tim Busby [facility] REFERRAL- REQUEST/RESPONSE 2023-04-01 05:01:00 D jasonor Unassigned, [place] [facility] XR CHEST 1 VW 2023-03-31 20:28:00 Tripp Samson [facility] CT HEAD WO CONTRAST 2023-03-31 20:28:00 Alo Samson [facility] BLOOD CULTURE SCREEN 2023-03-31 20:13:00 Maryanne Samson am [facility] TROPONIN I 2023-03-31 20:13:[address] [facility] [place] [place] COMP. METABOLIC PANEL ([id number]) 2023-03-31 20:13:00 Tripp Samson [facility] CBC WITH DIFF 2023-03-31 20:13:00 [facility] RAP[facility]UENZA A/B 2023-03-31 20:13:00 Alo Samson [facility] N-TERMINAL PRO-BNP 2023-03-31 20:13:00 Tripp Samson [facility] COVID-19 (ID NOW RAPID TESTING) 2023-03-31 20:13:00 Tripp Samson [facility] LAB ONLY COVID INTERPRETATION 2023-03-31 20:13:00 Tripp Samson [facility] POCT GLUCOSE (AUTOMATED) 2023-03-18 13:06:00 Tanesha Cuello [facility] NOTICE OF PRIVACY PRACTICES 2023-03-16 13:41:28 Doctor Unassigned, [place] [facility] IR EMBOLIZATION TUMORS ORGAN ISCHEMIA OR INFARCTION 2023-02-26 17:14:55 Lila Martinez [facility] PROTHROMBIN TIME / INR 2023-02-26 13:34:00 Ofelia Agarwal [facility] PHOSPHORUS 2023-02-22 13:59:00 Tanesha White [facility] MAGNESIUM 2023-02-22 13:59:00 Tanesha White [facility] CARCINOEMBRYONIC ANTIGEN 2023-02-22 13:59:00 Tanesha Cuello [facility] COMP. METABOLIC PANEL ([id number]) 2023-02-22 13:59:00 Tanesha White [facility] CBC WITH DIFF 2023-02-22 13:59:00 Tanesha White Un [facility] URINALYSIS 2023-02-22 13:59:00 Tanesha White [facility] URINE CULTURE 2023-02-22 13:59:00 Erasmo Marcano [facility] CONSENT/REFUSAL FOR DIAGNOSIS AND TREATMENT 2023-02-22 13:25:21 Doctor Unassigned, [place] [facility] URINALYSIS 2023-02-02 15:00:00 Tanesha White [facility] CBC WITH DIFF 2023-02-02 13:34:00 [facility] 2023-[facility]-02 13:34:00 Tanesha White Uni [facility] [place] [place] MAGNESIUM 2023-02-02 13:34:[address] [facility] [place] [place] COMP. METABOLIC PANEL ([id number]) 2023-02-02 13:34:00 Tanesha White [facility] URINALYSIS 2023-01-14 12:34:00 Femi Stringer [facility] LACTIC ACID WHOLE BLOOD 2023-01-14 11:08:00 Lio Stringer [facility] COMP. METABOLIC PANEL ([id number]) 2023-01-14 11:07:00 Femi Stringer [facility] CBC WITH DIFF 2023-01-14 11:07:00 Femi Stringer [facility] RAPID INFLUENZA A/B 2023-01-14 10:10:00 Femi Stringer [facility] COVID-19 (ID NOW RAPID TESTING) 2023-01-14 10:10:00 Femi Stringer [facility] CONSENT/REFUSAL FOR DIAGNOSIS AND TREATMENT 2023-01-14 09:59:09 Doctor Unassigned, [place] [facility] ASSIGNMENT OF BENEFITS 2023-01-12 13:09:49 Docto r Unassigned, [place] [facility] CT THORAX W CONTRAST 2023-01-01 22:16:22 Todd Jerez [facility] URINE CULTURE 2022-12-16 18:14:00 Radha Hemphill [facility] URINALYSIS 2022-12-14 02:42:00 Ronit Enrique [facility] CONSENT/REFUSAL FOR DIAGNOSIS AND TREATMENT 2022-12-14 01:40:01 Doctor Unassigned, [place] [facility] XR CHEST 1 VW 2022-11-23 23:43:16 [facility] 1 VW 2022-11-23 23:43:16 [facility]ED[facility] 2022-11-23 23:14:45 Jany Ansari [facility] ELECTROPHYSIOLOGY PROCEDURE 2022-11-23 23:14:00 Jacqueline medina [facility] CATH PROCEDURE LOG 2022-11-23 22:37:01 Shailesh [facility] CATH PROCEDURE LOG 2022-11-23 22:37:01 Shailesh [facility] TRANSTHORACIC ECHO (TTE) COMPLETE 2022-11-23 19:07:14 [facility] TRANST[facility]ORACIC ECHO (TTE) COMPLETE 2022-11-23 19:07:14 [facility]IC [facility]EL (NA, K, CL, CO2, GLUCOSE, BUN, CREATININE, CA) 2022-11-23 10:08:00 Mireya [facility] CBC WITH DIFF 2022-11-23 10:08:00 Mireya [facility] PROTHROMBIN TIME / INR 2022-11-23 10:08:00 Sa Mireya mavis [facility] BASIC METABOLIC PANEL (NA, K, CL, CO2, GLUCOSE, BUN, CREATININE, CA) 2022-11-23 10:08:00 Mireya [facility] CBC WITH DIFF 2022-11-23 10:08:00 Mireya [facility] PROTHROMBIN TIME / INR 2022-11-23 10:08:00 Sa Mireya mavis [facility] POCT GLUCOSE (AUTOMATED) 2022-11-21 16:30:00 Agustin Hemphill [facility] POCT GLUCOSE (AUTOMATED) 2022-11-21 16:30:00 Agustin Hemphill [facility] POCT GLUCOSE (AUTOMATED) 2022-11-21 13:11:00 Agustin Hemphill [facility] POCT GLUCOSE (AUTOMATED) 2022-11-21 13:11:00 Agustin Hemphill [facility] POCT GLUCOSE (AUTOMATED) 2022-11-21 01:23:00 Agustin Hemphill [facility] POCT GLUCOSE (AUTOMATED) 2022-11-21 01:23:00 Agustin Hemphill [facility] URINALYSIS 2022-11-20 16:24:00 Ada Tomlinson Un [facility] URINALYSIS 2022-11-20 16:24:00 Ada Tomlinson Un [facility] MAGNESIUM 2022-11-20 14:36:00 Ada Tomlinson Un [facility] TROPONIN I 2022-11-20 14:36:00 Ada Tomlinson Un [facility] FREE T4 2022-11-20 14:36:00 [facility] THYROID STIMULATING HORMONE 2022-11-20 14:36:00 Cliff lobo [facility] COMP. METABOLIC PANEL ([id number]) 2022-11-20 14:36:00 Ada Tomlinson [facility] CBC WITH DIFF 2022-11-20 14:36:00 [facility] N-TERMINAL PRO-BNP 2022-11-20 14:36:00 Anais Tomlinson [facility] MAGNESIUM 2022-11-20 14:36:00 [facility] TROPONIN I 2022-11-20 14:36:00 Ada Tomlinson Un [facility] FREE T4 2022-11-20 14:36:00 Mireya [facility] THYROID STIMULATING HORMONE 2022-11-20 14:36:00 Cliff lobo [facility] COMP. METABOLIC PANEL ([id number]) 2022-11-20 14:36:00 Ada Tomlinson [facility] CBC WITH DIFF 2022-11-20 14:36:00 Ada Tomlinson [facility] N-TERMINAL PRO-BNP 2022-11-20 14:36:00 Anais Tomlinson [facility] HB ECG ROUTINE & RHYTHM STRIP 2022-11-20 14:22:18 Ada Tomlinson [facility] HB ECG ROUTINE & RHYTHM STRIP 2022-11-20 14:22:18 Ada Tomlinson [facility] CONSENT/REFUSAL FOR DIAGNOSIS AND TREATMENT 2022-11-20 14:12:38 Doctor Unassigned, [place] [facility] CONSENT/REFUSAL FOR DIAGNOSIS AND TREATMENT 2022-11-20 14:12:38 Doctor Unassigned, [place] [facility] HOSPITAL ADMISSION 2022-11-20 05:01:00 Doctor Un assigned, [place] [facility] CONSENT/REFUSAL FOR DIAGNOSIS AND TREATMENT 2022-10-20 14:30:34 Doctor Unassigned, [place] [facility] ASSIGNMENT OF BENEFITS 2022-10-20 14:30:10 Docto r Unassigned, [place] [facility] CT ABDOMEN PELVIS W CONTRAST 2022-10-12 20:20:00 Osmin Jerez [facility] CONSENT/REFUSAL FOR DIAGNOSIS AND TREATMENT 2022-10-12 18:45:21 Doctor Unassigned, [place] [facility] CONSENT/REFUSAL FOR DIAGNOSIS AND TREATMENT 2022-10-12 18:45:03 Doctor Unassigned, [place] [facility] ASSIGNMENT OF BENEFITS 2022-10-12 18:44:43 Docto r Unassigned, [place] [facility] ASSIGNMENT OF BENEFITS 2022-10-12 18:44:25 Docto r Unassigned, [place] [facility] URINALYSIS 2022-09-30 13:50:[address] [facility] [place] [place] CBC WITH DIFF 2022-09-29 15:00:00 [facility] 2022-09-29 15:00:[address] [facility] [place] [place] MAGNESIUM 2022-09-29 15:00:[address] [facility] [place] [place] COMP. METABOLIC PANEL ([id number]) 2022-09-29 15:00:00 Tanesha White [facility] DME/SUPPLY JUSTIFICATION 2022-09-01 06:01:00 Doc tor Unassigned, [place] [facility] PHOSPHORUS 2022-08-18 14:47:[address] [facility] [place] [place] MAGNESIUM 2022-08-18 14:47:[address] [facility] [place] [place] COMP. METABOLIC PANEL ([id number]) 2022-08-18 14:47:00 Tanesha White [facility] CBC WITH DIFF 2022-08-18 14:47:00 [facility] 2022-08-18 14:47:00 Tanesha White [facility] ASSIGNMENT OF BENEFITS 2022-08-18 14:23:43 Docto r Unassigned, [place] [facility] PNEUMOCOCCAL 20 CONJUGATE (PREVNAR 20) VACCINE 2022-08-14 16:01:33 Vance Pond [facility] FLU VACC(),65+YR,0.5 ML,IM,ADJUVANTED,QUAD(FLUAD ) 2022-08-12 18:22:43 Vance Pond [facility] MEDICAL RELEASE/CLEARANCE FORMS 2022-08-06 06:01:00 Doctor Unassigned, [place] [facility] PHOSPHORUS 2022-07-28 13:56:[address] [facility] [place] MAGNESIUM 2022-07-28 13:56:[address] [facility] [place] [place] COMP. METABOLIC PANEL ([id number]) 2022-07-28 13:56:00 Tanesha White [facility] URINALYSIS 2022-07-28 13:56:[address] [facility] [place] [place] CBC WITH DIFF 2022-07-28 13:53:00 [facility]IGN[facility] OF [facility]ENEFITS 2022-07-28 13:30:43 Docto r Unassigned, [place] [facility] CT ABDOMEN PELVIS W CONTRAST 2022-07-23 14:36:00 Tanesha White [facility] CT THORAX W CONTRAST 2022-07-23 14:35:05 Finn White [facility] CBC WITH DIFF 2022-07-07 14:36:00 [facility] ASSIGN[facility] OF BENEFITS 2022-07-07 14:28:38 Docto r Unassigned, [place] [facility] PHOSPHORUS 2022-06-22 15:01:[address] [facility] [place] [place] MAGNESIUM 2022-06-22 15:01:00 Osmin Jerez [facility] COMP. METABOLIC PANEL ([id number]) 2022-06-22 15:01:00 Osmin Jerez [facility] CBC WITH DIFF 2022-06-22 15:01:00 [facility] 2022-06-22 15:01:00 Osmin Jerez [facility] ASSIGNMENT OF BENEFITS 2022-06-22 14:46:51 Docto r Unassigned, [place] [facility] CONSENT/REFUSAL FOR DIAGNOSIS AND TREATMENT 2022-06-01 13:32:51 Doctor Unassigned, [place] [facility] D-DIMER 2022-05-18 01:46:00 Tabitha Georges [facility] TROPONIN I 2022-05-18 00:49:00 Tabtiha Georges [facility] COMP. METABOLIC PANEL ([id number]) 2022-05-18 00:49:00 Tabitha Georges [facility] CBC WITH DIFF 2022-05-18 00:49:00 Tabitha Georges [facility] URINALYSIS 2022-05-18 00:49:00 Tabitha Georges [facility] N-TERMINAL PRO-BNP 2022-05-18 00:49:00 Eleni Georges [facility] XR CHEST 2 VW 2022-05-18 00:07:34 Tabitha Georges [facility] CONSENT/REFUSAL FOR DIAGNOSIS AND TREATMENT 2022-05-17 23:25:34 Doctor Unassigned, [place] [facility] PHOSPHORUS 2022-05-11 13:55:00 Osmin [facility]rez [facility] 2022-05-11 13:55:00 Osmin Jerez [facility] COMP. METABOLIC PANEL ([id number]) 2022-05-11 13:55:00 Osmin Jerez [facility] CBC WITH DIFF 2022-05-11 13:55:00 [facility] 2022-05-11 13:55:00 Osmin Jerez [facility] MEDICAL RELEASE/CLEARANCE FORMS 2022-05-05 05:01:00 Doctor Unassigned, [place] [facility] REFERRAL- REQUEST/RESPONSE 2022-04-17 05:01:00 Duke camacho Unassigned, [place] [facility] PHOSPHORUS 2022-04-14 14:25:[address] [facility] [place] [place] MAGNESIUM 2022-04-14 14:25:00 Osmin Jerez [facility] COMP. METABOLIC PANEL ([id number]) 2022-04-14 14:25:00 Osmin Jerez [facility] CBC WITH DIFF 2022-04-14 14:25:00 [facility] 2022-04-14 14:25:00 Osmin Jerez Uni [facility] [place] [place] MEDICAL RELEASE/CLEARANCE FORMS 2022-04-09 05:01:00 Doctor Unassigned, [place] [facility] Encounters Start Date/Time End Date/Time Encounter Type Admission Type Attending Clinicians Care Facility Care Department Encounter ID Source 2021-06-09 12:10:53 Emergency [facility] [id number] [facility] 2021-06-09 04:42:10 Emergency [facility] [id number] [facility] 2021-06-09 00:32:15 Emergency [facility] [id number] [facility] 2021-06-08 22:19:10 Emergency [facility] [id number] [facility] 2021-06-08 11:59:06 Emergency [facility] [id number] [facility] 2023-12-08 10:00:00 2023-12-08 10:00:00 Outpatient R DEMIQUIRINO [facility] [id number] [facility] 2023-10-06 09:30:00 2023-10-06 09:30:00 Outpatient R CHRISTOPHER TANESHA [facility] [id number] [facility] 2023-09-19 09:34:00 2023-09-19 12:34:00 Emergency X NMIARICARDOELOISAROSETTA RUST ERT [id number] [facility] 2023-09-19 09:34:00 2023-09-19 12:34:00 Emergency Rosetta Briones [facility] 1.840.114 350.1.13.10 4.2.7.2.686 [id number] [facility] 2023-09-17 13:00:00 2023-09-17 13:00:00 Nurse Visit 7, [facility] 1.840.114 350.1.13.10 4.2.7.2.686 [id number] [facility] 2023-09-17 13:00:00 2023-09-17 09:44:08 Outpatient R CHRISTOPHER TANESHA [facility] [id number] [facility] 2023-09-17 00:00:00 2023-09-17 00:00:00 Letter (Out) 2, [facility] Adult Infusion Nurse [facility] 1.840.114 350.1.13.10 4.2.7.2.686 [id number] [facility] 2023-09-17 00:00:00 2023-09-17 00:00:00 Telephone [facility] 1.114 350.1.13.10 4.2.7.2.686 [id number] [facility] 2023-09-16 18:20:00 2023-09-16 21:45:00 Emergency X [facility] MATTHEW RUST ERT [id number] [facility] 2023-09-16 18:20:00 2023-09-16 21:45:00 Emergency Elpidio Bates [facility] 1.114 350.1.13.10 4.2.7.2.686 [id number] [facility] 2023-09-16 09:30:00 2023-09-16 09:30:00 Outpatient R [facility] [id number] [facility] 2023-09-15 09:30:00 2023-09-15 14:32:51 Outpatient R CHRISTOPHER [facility] [id number] [facility] 2023-09-15 09:30:00 2023-09-15 14:32:51 Nurse Visit 3, [facility] 1.114 350.1.13.10 4.2.7.2.686 [id number] [facility] 2023-09-15 08:20:00 2023-09-15 09:09:24 Office Visit Christopher Taneshaomid [facility] 1.114 350.1.13.10 4.2.7.2.686 [id number] [facility] 2023-09-13 08:30:00 2023-09-13 08:45:00 Gaggerman Visit Pob, [facility] 1.2.840.114 350.1.13.10 4.2.7.2.686 [id number] [facility] 2023-09-13 08:30:00 2023-09-13 08:30:00 Outpatient R TANESHA WHITE [facility] [id number] [facility] 2023-09-03 14:00:00 2023-09-03 14:30:00 Nurse Visit 7, [facility] 1.840.114 350.1.13.10 4.2.7.2.686 [id number] [facility] 2023-09-03 14:00:00 2023-09-03 14:00:00 [facility] [id number] [facility] 2023-09-01 08:30:00 2023-09-01 13:03:29 [facility] [id number] [facility] 2023-09-01 08:30:00 2023-09-01 13:03:29 Nurse Visit 4, [facility] 1.2840.114 350.1.13.10 4.2.7.2.686 [id number] [facility] 2023-09-01 00:00:00 2023-09-01 00:00:00 Case Management Tanesha White [facility] 1.2840.114 350.1.13.10 4.2.7.2.686 [id number] [facility] 2023-09-01 00:00:00 2023-09-01 00:00:00 Case Management Tanesha White [facility] 1.2840.114 350.1.13.10 4.2.7.2.686 [id number] [facility] 2023-09-01 00:00:00 2023-09-01 00:00:00 Orders Only Doctor Unassigned, [place] [facility] 1.2.840.114 350.1.13.10 4.2.7.2.686 [id number] [facility] 2023-08-30 08:30:00 2023-08-30 08:45:00 Gaggerman Visit Pob, Adc Lab Main [facility] 1.2840.114 350.1.13.10 4.2.7.2.686 [id number] [facility] 2023-08-30 08:30:00 2023-08-30 08:30:00 Outpatient R TANESHA WHITE [facility] [id number] [facility] 2023-08-20 15:00:00 2023-08-20 15:24:57 Outpatient R TANESHA WHITE [facility] [id number] [facility] 2023-08-20 15:00:00 2023-08-20 15:24:57 Nurse Visit 7, [facility] Infusion Chair Tanesha White [facility] 1.2840.114 350.1.13.10 4.2.7.2.686 [id number] [facility] 2023-08-20 00:00:00 2023-08-20 00:00:00 Case Management [facility] 1.20.114 350.1.13.10 4.2.7.2.686 [id number] [facility] 2023-08-18 08:30:00 2023-08-18 13:33:51 Outpatient R TANESHA WHITE [facility] [id number] [facility] 2023-08-18 08:30:00 2023-08-18 13:33:51 Nurse Visit 9, [facility] Infusion Chair Tanesha White [facility] 1.2840.114 350.1.13.10 4.2.7.2.686 [id number] [facility] 2023-08-18 08:00:00 2023-08-18 08:37:44 Office Visit Tanesha White [facility] 1.2840.114 350.1.13.10 4.2.7.2.686 [id number] [facility] 2023-08-16 08:45:00 2023-08-16 09:00:00 Gaggerman Visit Poalejandra, Adc Lab Main Tanesha White [facility] 1.2840.114 350.1.13.10 4.2.7.2.686 [id number] [facility] 2023-08-16 08:45:00 2023-08-16 08:45:00 Outpatient R TANESHA WHITE [facility] [id number] [facility] 2023-08-13 00:00:00 2023-08-13 00:00:00 Telephone Radha Hemphill [facility] 1.2840.114 350.1.13.10 4.2.7.2.686 [id number] [facility] 2023-08-12 00:00:00 2023-08-12 00:00:00 Orders Only Doctor Unassigned, [place] [facility] 1.20.114 350.1.13.10 4.2.7.2.686 [id number] [facility] 2023-08-06 14:30:00 2023-08-06 14:30:00 Outpatient R TANESHA WHITE [facility] [id number] [facility] 2023-08-05 08:02:33 2023-08-05 23:59:00 [facility] 1..840.114 350.1.13.10 4.2.7.2.686 [id number] [facility] 2023-08-05 08:01:42 2023-08-05 08:01:42 [facility] [id number] 2023-08-05 08:01:42 2023-08-05 08:01:42 Hospital [facility] 1..840.114 350.1.13.10 4.2.7.2.686 [id number] [facility] 2023-08-04 08:30:00 2023-08-04 08:30:00 Outpatient R TANESHA WHITE [facility] [id number] [facility] 2023-07-30 09:45:00 2023-07-30 09:45:00 Outpatient R TANESHA WHITE [facility] [id number] [facility] 2023-07-23 14:30:00 2023-07-23 14:30:00 Outpatient R CHRISTOPHER [facility] [id number] [facility] 2023-07-22 10:20:00 2023-07-22 10:20:00 Outpatient R JANY CASH MUHIE [facility] [id number] [facility] 2023-07-21 08:30:00 2023-07-21 12:00:00 Nurse Visit 3, [facility] Infusion Chair Tanesha White [facility] 1..840.114 350.1.13.10 4.2.7.2.686 [id number] [facility] 2023-07-21 08:00:00 2023-07-21 10:37:33 Office Visit Tanesha White [facility] 1.2.840.114 350.1.13.10 4.2.7.2.686 [id number] [facility] 2023-07-21 08:30:00 2023-07-21 08:30:00 Outpatient R TANESHA WHITE [facility] [id number] [facility] 2023-07-20 11:30:00 2023-07-20 11:30:00 Outpatient R JANY CASH MUHIE [facility] [id number] [facility] 2023-07-19 08:30:00 2023-07-19 08:45:00 Gaggerman Visit Pob, Adc Lab Main Tanesha White [facility] 1.2.840.114 350.1.13.10 4.2.7.2.686 [id number] [facility] 2023-07-19 08:30:00 2023-07-19 08:30:00 Outpatient R TANESHA WHITE [facility] [id number] [facility] 2023-07-09 11:30:00 2023-07-09 14:02:23 Outpatient R TANESHA WHITE [facility] [id number] [facility] 2023-07-09 11:30:00 2023-07-09 14:02:23 Nurse Visit 2, [facility] Infusion Chair Tanesha White [facility] 1..840.114 350.1.13.10 4.2.7.2.686 [id number] [facility] 2023-07-07 08:30:00 2023-07-07 14:17:24 Outpatient R TANESHA WHITE [facility] [id number] [facility] 2023-07-07 08:30:00 2023-07-07 14:17:24 Nurse Visit 6, [facility] Infusion Chair Christopher [facility] 1.2840.114 350.1.13.10 4.2.7.2.686 [id number] [facility] 2023-07-07 00:00:00 2023-07-07 00:00:00 Case Management [facility]anesha [facility] 1.2840.114 350.1.13.10 4.2.7.2.686 [id number] [facility] 2023-07-05 08:30:00 2023-07-05 08:45:00 Gaggerman Visit Poalejandra, Adc Lab Main Tanesha White [facility] 1.20.114 350.1.13.10 4.2.7.2.686 [id number] [facility] 2023-07-05 08:30:00 2023-07-05 08:30:00 Outpatient R TANESHA WHITE [facility] [id number] [facility] 2023-07-03 06:39:00 2023-07-03 10:34:00 Emergency X ADA TOMLINSON RUST ERT [id number] [facility] 2023-07-03 06:39:00 2023-07-03 10:34:00 Emergency Ada Tomlinson [facility] 1.2840.114 350.1.13.10 4.2.7.2.686 [id number] [facility] 2023-06-25 14:30:00 2023-06-25 14:30:00 Nurse Visit 5, [facility] Infusion Chair Christopher [facility] 1.2840.114 350.1.13.10 4.2.7.2.686 [id number] [facility] 2023-06-25 14:30:00 2023-06-25 11:47:31 Outpatient R TANESHA WHITE [facility] [id number] [facility] 2023-06-23 09:00:00 2023-06-23 12:30:00 Nurse Visit 4, [facility] Infusion Chair Tanesha White [facility] 1.20.114 350.1.13.10 4.2.7.2.686 [id number] [facility] 2023-06-23 09:00:00 2023-06-23 09:00:00 Outpatient R TANESHA WHITE [facility] [id number] [facility] 2023-06-23 08:00:00 2023-06-23 08:46:54 [facility] 1.2840.114 350.1.13.10 4.2.7.2.686 [id number] [facility] 2023-06-21 08:30:00 2023-06-21 08:45:00 [facility] Visit Pob, [facility] Main [facility] 1.2.84.114 350.1.13.10 4.2.7.2.686 [id number] [facility] 2023-06-21 08:30:00 2023-06-21 08:30:00 Outpatient R TANESHA WHITE [facility] [id number] [facility] 2023-06-16 08:40:00 2023-06-16 08:40:00 [facility] [id number] [facility] 2023-06-16 00:00:00 2023-06-16 00:00:00 Telephone [facility]ha [facility] [facility] 1.2.840.114 350.1.13.10 4.2.7.2.686 [id number] 080 [id number] [facility] 2023-06-11 14:30:00 2023-06-11 14:30:00 Outpatient R [facility] [id number] [facility] 2023-06-09 11:00:00 2023-06-09 13:00:18 Outpatient R TANESHA WHITE [facility] [id number] [facility] 2023-06-09 11:00:00 2023-06-09 13:00:18 Nurse Visit 3, [facility] Infusion Chair Tanesha White [facility] 1.2840.114 350.1.13.10 4.2.7.2.686 [id number] [facility] 2023-06-09 00:00:00 2023-06-09 00:00:00 Telephone [facility] 1.2840.114 350.1.13.10 4.2.7.2.686 [id number] 080 [id number] [facility] 2023-06-08 08:30:00 2023-06-08 08:45:00 Gaggerman Visit Pob, Adc Lab Main Tanesha White [facility] 1.2840.114 350.1.13.10 4.2.7.2.686 [id number] [facility] 2023-06-08 08:30:00 2023-06-08 08:30:00 Outpatient R TANESHA WHITE [facility] [id number] [facility] 2023-06-05 11:45:00 2023-06-05 14:36:00 Emergency X SONNY GRAMAJO RUST ERT [id number] [facility] 2023-06-05 11:45:00 2023-06-05 14:36:00 Emergency Sonny Gramajo [facility] 1.2840.114 350.1.13.10 4.2.7.2.686 [id number] 084 [id number] [facility] 2023-06-05 00:00:00 2023-06-05 00:00:00 Patient Secure Msg Doctor Unassigned, [place] [facility] 1.2.840.114 350.1.13.10 4.2.7.2.686 [id number] 080 [id number] [facility] 2023-05-27 00:00:00 2023-05-27 00:00:00 Transition of Care Diana Sherwood 1.2840.114 350.1.13.10 4.2.7.2.686 [id number] [facility] 2023-05-20 20:45:00 2023-05-26 12:36:00 Inpatient X DENG MARTINEZ RUST JAZMINE [id number] [facility] 2023-05-20 20:45:00 2023-05-26 12:36:00 Hospital Encounter Emma Saha Mohammad A. [facility] 1.2840.114 350.1.13.10 4.2.7.2.686 [id number] 081 [id number] [facility] 2023-05-20 00:00:00 2023-05-20 00:00:00 Nurse Triage Mahad Mcfadden [facility] 1.2.840.114 350.1.13.10 4.2.7.2.686 [id number] [facility] 2023-05-19 10:00:00 2023-05-19 14:35:41 Outpatient R TANESHA WHITE [facility] [id number] [facility] 2023-05-19 10:00:00 2023-05-19 14:35:41 Nurse Visit 8, [facility] Infusion Chair Tanesha White [facility] 1.2840.114 350.1.13.10 4.2.7.2.686 [id number] 053 [id number] [facility] 2023-05-19 08:00:00 2023-05-19 09:16:37 Office Visit Tanesha White BUILDING 1.2.840.114 350.1.13.10 4.2.7.2.686 [id number] 080 [id number] [facility] 2023-05-19 00:00:00 2023-05-19 00:00:00 [facility] 1.2.840.114 350.1.13.10 4.2.7.2.686 [id number] 078 [id number] [facility] 2023-05-19 00:00:00 2023-05-19 00:00:00 Orders Only Doctor Unassigned, [place] [facility] 1.2.840.114 350.1.13.10 4.2.7.2.686 [id number] [facility] 2023-05-18 09:15:00 2023-05-18 09:30:00 Gaggerman Visit 2, Adc Lab Tanesha White [facility] 1.2.840.114 350.1.13.10 4.2.7.2.686 [id number] 353 [id number] [facility] 2023-05-18 09:15:00 2023-05-18 09:11:03 Outpatient R TANESHA WHITE [facility] [id number] [facility] 2023-05-18 00:00:00 2023-05-18 00:00:00 Refill Vance Pond [facility] BUILD[facility] 1.2.840.114 350.1.13.10 4.2.7.2.686 [id number] [facility] 2023-04-28 10:00:00 2023-04-28 12:30:00 Nurse Visit 8, [facility] Infusion Chair Tanesha White [facility] 1..840.114 350.1.13.10 4.2.7.2.686 [id number] [id number] [facility] 2023-04-28 09:00:00 2023-04-28 09:35:17 Outpatient R ANUJA WHITEIT [facility] [id number] [facility] 2023-04-28 09:00:00 2023-04-28 09:35:17 [facility] 1..840.114 350.1.13.10 4.2.7.2.686 [id number] 080 [id number] [facility] 2023-04-27 08:45:00 2023-04-27 09:00:00 Gaggerman Visit Pob, Adc Lab Main E[facility] 1..840.114 350.1.13.10 4.2.7.2.686 [id number] 353 [id number] [facility] 2023-04-27 08:45:00 2023-04-27 08:45:00 Outpatient Finn QUEVEDO [facility] [id number] [facility] 2023-04-20 10:57:00 2023-04-20 13:59:00 Emergency X ARY STOKES RUST ERT [id number] [facility] 2023-04-20 10:57:00 2023-04-20 13:59:00 Emergency Ary Stokes [facility] 1..840.114 350.1.13.10 4.2.7.2.686 [id number] [id number] [facility] 2023-04-20 08:40:00 2023-04-20 08:40:00 Outpatient DONOVAN TOWNSEND CHRISTINE [facility] [id number] [facility] 2023-04-13 13:30:00 2023-04-13 13:30:00 Outpatient R KRISH [facility] [id number] [facility] 2023-04-13 00:00:00 2023-04-13 00:00:00 Patient Outreach Ana Ying [facility] BUILD[facility] 1.84.114 350.1.13.10 4.2.7.2.686 [id number] [facility] 2023-04-09 10:00:00 2023-04-09 10:15:00 Gaggerman Visit Pob, Adc Lab Main Krish [facility] BUILDING 1.84.114 350.1.13.10 4.2.7.2.686 [id number] [facility] 2023-04-09 10:00:00 2023-04-09 10:00:00 Outpatient R KRISH [facility] [id number] [facility] 2023-04-08 08:00:00 2023-04-08 08:00:00 Outpatient R FIDE HANSON [facility] [id number] [facility] 2023-04-08 00:00:00 2023-04-08 00:00:00 Telephone Krish [facility] 1.114 350.1.13.10 4.2.7.2.686 [id number] [facility] 2023-04-07 09:00:00 2023-04-07 11:30:00 Nurse Visit 2, [facility] Infusion Chair Osmin Jerez, [facility] 1..114 350.1.13.10 4.2.7.2.686 [id number] [id number] [facility] 2023-04-07 08:40:00 2023-04-07 09:02:44 Outpatient R TANESHA WHITE [facility] [id number] [facility] 2023-04-07 08:40:00 2023-04-07 09:02:44 Office Visit Tanesha White Kaitlyn [facility] BUILDING 1.2.840.114 350.1.13.10 4.2.7.2.686 [id number] 080 [id number] [facility] 2023-04-06 08:45:00 2023-04-06 09:00:00 Gaggerman Visit Pob, Adc Lab Main [facility] 1.2.840.114 350.1.13.10 4.2.7.2.686 [id number] 353 [id number] [facility] 2023-04-06 08:45:00 2023-04-06 08:45:00 Outpatient R [facility]ILLIP [facility] [id number] [facility] 2023-04-06 00:00:00 2023-04-06 00:00:00 Telephone Erasmo Marcano [facility] 1.2840.114 350.1.13.10 4.2.7.2.686 [id number] 204 [id number] [facility] 2023-04-05 00:00:00 2023-04-05 00:00:00 Transition of Care Dima Lima 1.2.840.114 350.1.13.10 4.2.7.2.686 [id number] [facility] 2023-03-31 14:23:00 2023-04-02 15:25:00 Inpatient X TIM BUSBY [facility] [id number] [facility] 2023-03-31 14:23:00 2023-04-02 15:25:00 Hospital Encounter Tripp Samson Jelani [facility] 1.0.114 350.1.13.10 4.2.7.2.686 [id number] 081 [id number] [facility] 2023-03-18 07:49:23 2023-03-18 23:59:00 Hospital Encounter Christopher Tanesha [facility] 1.20.114 350.1.13.10 4.2.7.2.686 [id number] [id number] [facility] 2023-03-18 13:00:00 2023-03-18 14:03:29 Nurse Visit 10, [facility] Infusion Chair Christopher [facility] 1..114 350.1.13.10 4.2.7.2.686 [id number] [id number] [facility] 2023-03-18 07:48:14 2023-03-18 07:48:00 [facility] [id number] [facility] 2023-03-18 07:36:45 2023-03-18 07:48:00 Hospital Encounter Christopher, [facility] 1..114 350.1.13.10 4.2.7.2.686 [id number] [facility] 2023-03-17 13:30:00 2023-03-17 15:44:40 Outpatient R JEREMY ARRIAGA [facility] [id number] [facility] 2023-03-17 13:30:00 2023-03-17 13:45:00 Office Visit Jeremy Arriaga [facility]. 1.84.114 350.1.13.10 4.2.7.2.686 [id number] [facility] 2023-03-17 10:30:00 2023-03-17 11:29:40 Office Visit Osmin Jerez H BUILDING 1.2840.114 350.1.13.10 4.2.7.2.686 [id number] 080 [id number] [facility] 2023-03-16 13:20:00 2023-03-16 13:20:00 Outpatient R OBI-ROSEMARY , DEMETRIUS OBI-ROSEMARY , DEMETRIUS [facility] [id number] [facility] 2023-03-16 08:45:00 2023-03-16 09:00:00 Gaggerman Visit Pob, Adc Lab Main Tanesha White [facility] BUILDING 1.2840.114 350.1.13.10 4.2.7.2.686 [id number] [facility] 2023-03-16 08:45:00 2023-03-16 08:45:00 Outpatient R TANESHA WHITE [facility] [id number] [facility] 2023-03-16 00:00:00 2023-03-16 00:00:00 Orders Only Doctor Unassigned, [place] [facility] 1.2840.114 350.1.13.10 4.2.7.2.686 [id number] [facility] 2023-03-11 09:00:00 2023-03-11 09:00:00 Outpatient R VANCE POND [facility] [id number] [facility] 2023-03-05 00:00:00 2023-03-05 00:00:00 Telephone Tanesha White [facility] 1.2840.114 350.1.13.10 4.2.7.2.686 [id number] 080 [id number] [facility] 2023-03-05 00:00:00 2023-03-05 00:00:00 Telephone Tanesha White [facility] 1.2840.114 350.1.13.10 4.2.7.2.686 [id number] [id number] [facility] 2023-03-01 07:52:01 2023-03-01 23:59:00 Hospital Encounter [facility][1] 1.2840.114 350.1.13.10 4.2.7.2.686 [id number] [id number] [facility] 2023-03-01 07:51:38 2023-03-01 07:51:38 Hospital Encounter [facility][1] 1.2840.114 350.1.13.10 4.2.7.2.686 [id number] [id number] [facility] 2023-03-01 07:50:03 2023-03-01 07:50:03 Outpatient R RIOS PURCELL [facility] [id number] [facility] 2023-03-01 07:50:03 2023-03-01 07:50:03 Hospital Encounter Rios Purcell Dewonaa D Blake, Ethel Rand [facility] 1.2840.114 350.1.13.10 4.2.7.2.686 [id number] [id number] [facility] 2023-03-01 00:00:00 2023-03-01 00:00:00 Outpatient R RIOS PURCELL [facility] [id number] [facility] 2023-02-26 07:59:38 2023-02-26 23:59:00 Hospital Encounter [facility][1] 1.2840.114 350.1.13.10 4.2.7.2.686 [id number] [facility] 2023-02-26 07:58:55 2023-02-26 07:58:55 Outpatient R VALENTIN FIDE [facility] [id number] [facility] 2023-02-26 07:58:55 2023-02-26 07:58:55 Outpatient R FIDE HANSON [facility] [id number] [facility] 2023-02-26 07:58:55 2023-02-26 07:58:55 [facility] 1.0.114 350.1.13.10 4.2.7.2.686 [id number] [facility] 2023-02-26 07:58:16 2023-02-26 07:58:16 Hospital Encounter Rios Purcell, Clif Rivera [facility] 1..114 350.1.13.10 4.2.7.2.686 [id number] [facility] 2023-02-25 13:00:00 2023-02-25 13:00:00 Outpatient R [facility] [id number] [facility] 2023-02-24 08:00:00 2023-02-24 10:53:50 Office Visit Tanesha White [facility] 1..114 350.1.13.10 4.2.7.2.686 [id number] 080 [id number] [facility] 2023-02-24 09:00:00 2023-02-24 10:00:00 Office Visit Christian Rainey [facility] 1..114 350.1.13.10 4.2.7.2.686 [id number] [facility] 2023-02-24 09:00:00 2023-02-24 09:00:00 Outpatient R COLEMAN PEARSON [facility] [id number] [facility] 2023-02-23 00:00:00 2023-02-23 00:00:00 Telephone Erasmo Marcano [facility] 1..114 350.1.13.10 4.2.7.2.686 [id number] 204 [id number] [facility] 2023-02-22 09:15:00 2023-02-22 09:30:00 Gaggerman Visit Annette, Radha Hutchins RUST VIOLA HURD [facility] 1.2840.114 350.1.13.10 4.2.7.2.686 [id number] [facility] 2023-02-22 09:15:00 2023-02-22 09:15:00 Outpatient Finn QUEVEDO RADHA [facility] [id number] [facility] 2023-02-22 00:00:00 2023-02-22 00:00:00 Orders Only Doctor Unassigned, [place] [facility] 1.840.114 350.1.13.10 4.2.7.2.686 [id number] [facility] 2023-02-16 00:00:00 2023-02-16 00:00:00 Case Management Carlo [facility] 1..114 350.1.13.10 4.2.7.2.686 [id number] [id number] [facility] 2023-02-04 13:00:00 2023-02-04 13:06:08 Nurse Visit 1, [facility] Infusion Chair Christopher, [facility] 1..114 350.1.13.10 4.2.7.2.686 [id number] 053 [id number] [facility] 2023-02-04 09:45:00 2023-02-04 10:00:00 Gaggerman Visit [facility] Christopher [facility] 1..114 350.1.13.10 4.2.7.2.686 [id number] [facility] 2023-02-04 09:45:00 2023-02-04 09:45:00 Outpatient R TANESHA WHITE [facility] [id number] [facility] 2023-02-04 08:20:00 2023-02-04 09:06:31 Office Visit Tanesha White [facility]ILD[facility] 1.2.840.114 350.1.13.10 4.2.7.2.686 [id number] 080 [id number] [facility] 2023-02-03 13:00:00 2023-02-03 13:00:00 Outpatient R KRISH [facility] [id number] [facility] 2023-02-02 09:30:00 2023-02-02 09:45:00 Gaggerman Visit Pob, Adc Lab Main Tanesha White [facility] BUILDING 1.2.840.114 350.1.13.10 4.2.7.2.686 [id number] 353 [id number] [facility] 2023-02-02 09:30:00 2023-02-02 09:30:00 Outpatient R TANESHA WHITE [facility] [id number] [facility] 2023-01-25 00:00:00 2023-01-25 00:00:00 Telephone AnnabellehomerVance yeboah [facility] 1.2.840.114 350.1.13.10 4.2.7.2.686 [id number] 044 [id number] [facility] 2023-01-22 10:00:00 2023-01-22 11:41:06 Outpatient R KRISH [facility] [id number] [facility] 2023-01-22 10:00:00 2023-01-22 11:41:06 Nurse Visit Nurse, [facility] 1.2.840.114 350.1.13.10 4.2.7.2.686 [id number] [facility] 2023-01-22 00:00:00 2023-01-22 00:00:00 Telephone ChristopherTanesha gambleROBERTSharmila BUILDING 1.2.840.114 350.1.13.10 4.2.7.2.686 [id number] 080 [id number] [facility] 2023-01-21 09:20:00 2023-01-21 10:22:14 Outpatient R TANESHA WHITE [facility] [id number] [facility] 2023-01-21 09:20:00 2023-01-21 10:22:14 Office Visit Tanesha White GHANSHYAMNICKIE [facility] 1.2.840.114 350.1.13.10 4.2.7.2.686 [id number] 080 [id number] [facility] 2023-01-21 00:00:00 2023-01-21 00:00:00 Telephone Tanesha White GHANSHYAMROBERTSharmila BUILDING 1.2.840.114 350.1.13.10 4.2.7.2.686 [id number] 080 [id number] [facility] 2023-01-20 00:00:00 2023-01-20 00:00:00 Telephone Christopher Tanesha GHANSHYAMROBERTSharmila [facility] 1.2.840.114 350.1.13.10 4.2.7.2.686 [id number] 080 [id number] [facility] 2023-01-20 00:00:00 2023-01-20 00:00:00 Multidisci plinary Conference Nevaeh Orourke GHANSHYAMNICKIE [facility]ILD[facility] 1.2.840.114 350.1.13.10 4.2.7.2.686 [id number] 080 [id number] [facility] 2023-01-20 00:00:00 2023-01-20 00:00:00 Multidisci plinary Conference Tanesha White [facility] 1.2.840.114 350.1.13.10 4.2.7.2.686 [id number] 080 [id number] [facility] 2023-01-15 00:00:00 2023-01-15 00:00:00 Telephone Erasmo Marcano [facility] BUILD[facility] 1.2.840.114 350.1.13.10 4.2.7.2.686 [id number] [facility] 2023-01-14 09:00:00 2023-01-14 09:00:00 Outpatient R ANUJA WHITEIT [facility] [id number] [facility] 2023-01-14 05:09:00 2023-01-14 08:59:00 Emergency X FEMI STRINGER RUST ERT [id number] [facility] 2023-01-14 05:09:00 2023-01-14 08:59:00 Emergency Yoseph Stringerdestin [facility] 1.84.114 350.1.13.10 4.2.7.2.686 [id number] [facility] 2023-01-12 13:04:40 2023-01-12 23:59:00 Outpatient JANY WEBB MUHIE [facility] [id number] [facility] 2023-01-12 09:30:00 2023-01-12 09:45:00 Gaggerman Visit Pob, Adc Lab Main Tanesha White [facility] 1.2.840.114 350.1.13.10 4.2.7.2.686 [id number] 353 [id number] [facility] 2023-01-12 00:00:00 2023-01-12 00:00:00 Orders Only Doctor Unassigned, [place] [facility] 1.2.840.114 350.1.13.10 4.2.7.2.686 [id number] [facility] 2023-01-11 00:00:00 2023-01-11 00:00:00 [facility] 1.2.840.114 350.1.13.10 4.2.7.2.686 [id number] [facility] 2023-01-01 14:40:00 2023-01-01 23:59:00 [facility] 1.2.840.114 350.1.13.10 4.2.7.2.686 [id number] [facility] 2023-01-01 15:23:17 2023-01-01 14:39:00 Outpatient R OSMIN JEREZ [facility] [id number] [facility] 2023-01-01 14:15:00 2023-01-01 14:39:00 Hospital Encounter Jennifer Jerezlyn [facility] 1.2840.114 350.1.13.10 4.2.7.2.686 [id number] [facility] 2022-12-24 13:00:00 2022-12-24 13:50:03 Nurse Visit 9, [facility] Infusion Chair Tanesha White [facility] 1.2840.114 350.1.13.10 4.2.7.2.686 [id number] 053 [id number] [facility] 2022-12-24 10:20:00 2022-12-24 10:20:00 Office Visit Tanesha White [facility]ILD[facility] 1.2.840.114 350.1.13.10 4.2.7.2.686 [id number] 080 [id number] [facility] 2022-12-24 10:20:00 2022-12-24 10:03:48 Outpatient R TANESHA WHITE [facility] [id number] [facility] 2022-12-22 09:30:00 2022-12-22 09:45:00 Gaggerman Visit Pob, Adc Lab Main Radha Quevedo [facility] 1.2.840.114 350.1.13.10 4.2.7.2.686 [id number] [facility] 2022-12-22 09:30:00 2022-12-22 09:30:00 Outpatient RADHA DOMÍNGUEZ [facility] [id number] [facility] 2022-12-22 08:45:00 2022-12-22 08:45:00 Outpatient RADHA SANTA [facility] [id number] [facility] 2022-12-22 00:00:00 2022-12-22 00:00:00 Telephone Irma Hemphilltney [facility] 1.2.840.114 350.1.13.10 4.2.7.2.686 [id number] [facility] 2022-12-21 00:00:00 2022-12-21 00:00:00 Case Management Radha Hemphill [facility] 1.2.840.114 350.1.13.10 4.2.7.2.686 [id number] [facility] 2022-12-17 00:00:00 2022-12-17 00:00:00 Case Management Leann Delgado [facility] 1.2.840.114 350.1.13.10 4.2.7.2.686 [id number] [facility] 2022-12-16 12:00:00 2022-12-16 13:44:41 Outpatient RADHA SANTA [facility] [id number] [facility] 2022-12-16 12:00:00 2022-12-16 13:44:41 Office Visit Radha Hemphill [facility] 1.2.840.114 350.1.13.10 4.2.7.2.686 [id number] [facility] 2022-12-16 00:00:00 2022-12-16 00:00:00 Telephone Vance Pond [facility] 1.2.840.114 350.1.13.10 4.2.7.2.686 [id number] [facility] 2022-12-13 20:50:00 2022-12-14 00:14:00 Emergency X RONIT ENRIQUE [facility] E[facility] [id number] [facility] 2022-12-13 20:50:00 2022-12-14 00:14:00 Emergency Ronit Enrique [facility] 1.2.840.114 350.1.13.10 4.2.7.2.686 [id number] [facility] 2022-12-11 08:30:00 2022-12-11 08:45:00 Nurse Visit Nurse, Onc Tanesha Price [facility] 1.2.840.114 350.1.13.10 4.2.7.2.686 [id number] [facility] 2022-12-11 08:30:00 2022-12-11 08:30:00 Outpatient TANESHA BROWN [facility] [id number] [facility] 2022-12-10 14:14:48 2022-12-10 23:59:00 Outpatient R VIOLET JETER [facility] [id number] [facility] 2022-12-10 09:30:00 2022-12-10 10:36:04 Outpatient R OSMIN JEREZ [facility] [id number] [facility] 2022-12-10 09:30:00 2022-12-10 10:36:04 Ancillary Visit Jamilah Casper K[facility] 1.2840.114 350.1.13.10 4.2.7.2.686 [id number] [facility] 2022-12-07 09:40:00 2022-12-07 10:02:49 Outpatient R SID JIFORMERLY [facility] [id number] [facility] 2022-12-07 09:40:00 2022-12-07 10:02:49 Office Visit Demi [facility] 1.20.114 350.1.13.10 4.2.7.2.686 [id number] [facility] 2022-12-03 10:00:00 2022-12-03 16:50:27 Outpatient R TANESHA WHITE [facility] [id number] [facility] 2022-12-03 10:00:00 2022-12-03 16:50:27 Office Visit [facility]anes[facility] 1.20.114 350.1.13.10 4.2.7.2.686 [id number] [facility] 2022-12-03 10:30:00 2022-12-03 12:00:00 Nurse Visit 6, [facility] Infusion Chair Tanesha White [facility] 1.20.114 350.1.13.10 4.2.7.2.686 [id number] [facility] 2022-12-01 08:00:00 2022-12-01 08:15:00 Gaggerman Visit Pob, Adc Lab Main Tanesha White [facility] 1.20.114 350.1.13.10 4.2.7.2.686 [id number] [facility] 2022-12-01 08:00:00 2022-12-01 08:00:00 Outpatient R TANESHA WHITE [facility] [id number] [facility] 2022-12-01 00:00:00 2022-12-01 00:00:00 Telephone Mariano Salome RUST VIOLA RODRÍGUEZ VANNESSA [facility] 1.2840.114 350.1.13.10 4.2.7.2.686 [id number] [facility] 2022-11-30 00:00:00 2022-11-30 00:00:00 Telephone Tanesha White GHAN[facility]NICKIE [facility] 1.2.114 350.1.13.10 4.2.7.2.686 [id number] [facility] 2022-11-25 00:00:00 2022-11-25 00:00:00 Transition of Care [place] 1.20.114 350.1.13.10 4.2.7.2.686 [id number] [facility] 2022-11-20 09:17:00 2022-11-24 14:10:00 [facility] [id number] 2022-11-20 09:17:00 2022-11-24 14:10:00 [facility] 1.0.114 350.1.13.10 4.2.7.2.686 [id number] [facility] 2022-11-23 17:25:00 2022-11-23 18:25:00 Surgery Jany Cash [facility] 1.2840.114 350.1.13.10 4.2.7.2.686 [id number] [facility] 2022-11-20 08:00:00 2022-11-20 09:06:30 Outpatient R ANNABELLEVANCE ARAGON [facility] [id number] [facility] 2022-11-20 08:00:00 2022-11-20 09:06:30 Office Visit Vance Pond [facility] PROFESSIO NAL BUILDING 1.0.114 350.1.13.10 4.2.7.2.686 [id number] 044 [id number] [facility] 2022-11-20 00:00:00 2022-11-20 00:00:00 Patient Outreach Ana Ying [facility] BUILD[facility] 1.114 350.1.13.10 4.2.7.2.686 [id number] 044 [id number] [facility] 2022-11-12 13:00:00 2022-11-12 13:39:00 Outpatient R TANESHA WHITE [facility] [id number] [facility] 2022-11-12 13:00:00 2022-11-12 13:39:00 Nurse Visit 3, [facility] Infusion Chair Christopher [facility] 1..114 350.1.13.10 4.2.7.2.686 [id number] 053 [id number] [facility] 2022-11-12 12:00:00 2022-11-12 12:00:00 Office Visit Tanesha White BUILDING 1..114 350.1.13.10 4.2.7.2.686 [id number] 080 [id number] [facility] 2022-11-12 10:30:00 2022-11-12 10:45:00 Gaggerman Visit [facility]-Lab Christopher [facility] 1.2.840.114 350.1.13.10 4.2.7.2.686 [id number] [facility] 2022-11-12 00:00:00 2022-11-12 00:00:00 Shaun Johansen [facility] BUILDING 1.2840.114 350.1.13.10 4.2.7.2.686 [id number] 044 [id number] [facility] 2022-11-10 09:30:00 2022-11-10 09:30:00 Outpatient R CHRISTOPHER [facility] [id number] [facility] 2022-11-06 00:00:00 2022-11-06 00:00:00 [facility] 1.0.114 350.1.13.10 4.2.7.2.686 [id number] 053 [id number] [facility] 2022-10-27 00:00:00 2022-10-27 00:00:00 Refill Osmin Jerez BUILDING 1..114 350.1.13.10 4.2.7.2.686 [id number] 080 [id number] [facility] 2022-10-22 09:30:00 2022-10-22 12:56:38 Outpatient R CHRISTOPHER [facility] [id number] [facility] 2022-10-22 09:30:00 2022-10-22 12:56:38 Nurse Visit 1, [facility] 1.2.114 350.1.13.10 4.2.7.2.686 [id number] 053 [id number] [facility] 2022-10-22 09:00:00 2022-10-22 09:16:47 Office Visit Osmin Jerez BUILDING 1.2.840.114 350.1.13.10 4.2.7.2.686 [id number] 080 [id number] [facility] 2022-10-22 00:00:00 2022-10-22 00:00:00 Case Management Rosalba Avila BUILDING 1.2840.114 350.1.13.10 4.2.7.2.686 [id number] 080 [id number] [facility] 2022-10-22 00:00:00 2022-10-22 00:00:00 Patient Outreach Kassy Nava 1.0.114 350.1.13.10 4.2.7.2.686 [id number] [facility] 2022-10-20 09:30:00 2022-10-20 09:45:00 Gaggerman Visit Pob, Adc Lab Main Tanesha White [facility] 1.2840.114 350.1.13.10 4.2.7.2.686 [id number] [facility] 2022-10-20 09:30:00 2022-10-20 09:30:00 Outpatient TANESHA BROWN [facility] [id number] [facility] 2022-10-20 00:00:00 2022-10-20 00:00:00 Orders Only Doctor Unassigned, [place] [facility] 1.20.114 350.1.13.10 4.2.7.2.686 [id number] [id number] [facility] 2022-10-15 13:45:00 2022-10-15 13:45:00 Outpatient RADHA SANTA [facility] [id number] [facility] 2022-10-12 12:54:29 2022-10-12 23:59:00 Outpatient OSMIN ATKINS [facility] [id number] [facility] 2022-10-12 12:54:29 2022-10-12 23:59:00 Hospital Encounter Osmin Jerez [facility] 1.2.840.114 350.1.13.10 4.2.7.2.686 [id number] [facility] 2022-10-12 12:53:35 2022-10-12 12:53:35 Hospital Encounter Osmin Jerez [facility] 1.2.840.114 350.1.13.10 4.2.7.2.686 [id number] [facility] 2022-10-01 09:00:00 2022-10-01 10:41:55 Nurse Visit 2, [facility] Infusion Chair Tanesha White [facility] 1.2.840.114 350.1.13.10 4.2.7.2.686 [id number] 053 [id number] [facility] 2022-10-01 08:20:00 2022-10-01 09:43:50 Outpatient R TANESHA WHITE [facility] [id number] [facility] 2022-10-01 08:20:00 2022-10-01 08:40:00 Office Visit Tanesha White BUILDING 1.2840.114 350.1.13.10 4.2.7.2.686 [id number] 080 [id number] [facility] 2022-09-30 10:28:00 2022-09-30 23:59:00 Hospital Encounter Radha Quevedo BUILDING 1.2.840.114 350.1.13.10 4.2.7.2.686 [id number] 031 [id number] [facility] 2022-09-30 00:00:00 2022-09-30 23:59:00 [facility] [id number] [facility] 2022-09-29 09:30:00 2022-09-29 09:45:00 Gaggerman Visit Pob, Adc [facility] 1..840.114 350.1.13.10 4.2.7.2.686 [id number] [facility] 2022-09-29 09:30:00 2022-09-29 09:30:00 Outpatient R TANESHA WHITE [facility] [id number] [facility] 2022-09-10 09:30:00 2022-09-10 11:46:29 Nurse Visit 4, [facility] Infusion Chair Tanesha White [facility] 1..840.114 350.1.13.10 4.2.7.2.686 [id number] 053 [id number] [facility] 2022-09-10 08:20:00 2022-09-10 09:20:18 Outpatient R TANESHA WHITE [facility] [id number] [facility] 2022-09-10 08:20:00 2022-09-10 09:20:18 Office Visit Tanes[facility] White [facility] 1..840.114 350.1.13.10 4.2.7.2.686 [id number] 080 [id number] [facility] 2022-09-10 08:20:00 2022-09-10 08:20:00 Outpatient R TANESHA WHITE [facility] [id number] [facility] 2022-09-09 00:00:00 2022-09-09 00:00:00 Telephone Tanesha WhiteWILFREDOSharmila [facility] 1..840.114 350.1.13.10 4.2.7.2.686 [id number] 080 [id number] [facility] 2022-09-08 08:30:00 2022-09-08 08:45:00 Gaggerman Visit Pob, Adc Lab Main Tanesha White [facility] BUILDING 1.2.840.114 350.1.13.10 4.2.7.2.686 [id number] [facility] 2022-09-08 08:30:00 2022-09-08 08:30:00 Outpatient R TANESHA WHITE [facility] [id number] [facility] 2022-09-01 00:00:00 2022-09-01 00:00:00 Orders Only Doctor Unassigned, [place] [facility] 1.2840.114 350.1.13.10 4.2.7.2.686 [id number] [id number] [facility] 2022-08-31 14:45:00 2022-08-31 16:08:35 Outpatient R BRIAN [facility] [id number] [facility] 2022-08-31 14:45:00 2022-08-31 16:08:35 [facility] 1.2.840.114 350.1.13.10 4.2.7.2.686 [id number] [facility] 2022-08-31 00:00:00 2022-08-31 00:00:00 Case Management Tanesha White GHANSHYAMNICKIE BUILDING 1.2.840.114 350.1.13.10 4.2.7.2.686 [id number] 080 [id number] [facility] 2022-08-27 00:00:00 2022-08-27 00:00:00 Telephone Tanesha White GHANSHYAMNICKIE BUILDING 1.2840.114 350.1.13.10 4.2.7.2.686 [id number] 080 [id number] [facility] 2022-08-20 10:00:00 2022-08-20 12:34:25 Outpatient R TANESHA WHITE [facility] [id number] [facility] 2022-08-20 10:00:00 2022-08-20 12:34:25 Nurse Visit 7, [facility] Infusion Chair Tanesha White [facility] 1.2840.114 350.1.13.10 4.2.7.2.686 [id number] 053 [id number] [facility] 2022-08-20 08:00:00 2022-08-20 09:05:22 Office Visit Tanesha White [facility] 1.20.114 350.1.13.10 4.2.7.2.686 [id number] 080 [id number] [facility] 2022-08-20 09:00:00 2022-08-20 09:00:00 [facility] [id number] [facility] 2022-08-20 00:00:00 2022-08-20 00:00:00 Patient Outreach Buck Rand [facility] 1.0.114 350.1.13.10 4.2.7.2.686 [id number] 080 [id number] [facility] 2022-08-18 10:00:00 2022-08-18 10:15:00 Gaggerman Visit Pob, [facility] 1.2840.114 350.1.13.10 4.2.7.2.686 [id number] [facility] 2022-08-18 10:00:00 2022-08-18 10:00:00 Outpatient R TANESHA WHITE [facility] [id number] [facility] 2022-08-18 00:00:00 2022-08-18 00:00:00 Orders Only Doctor Unassigned, [place] [facility] 1.20.114 350.1.13.10 4.2.7.2.686 [id number] [facility] 2022-08-18 00:00:00 2022-08-18 00:00:00 Refill Vance Pond [facility] BUILDING 1.2.840.114 350.1.13.10 4.2.7.2.686 [id number] 044 [id number] [facility] 2022-08-18 00:00:00 2022-08-18 00:00:00 Refill Hoa Maynor Meng [facility] 1.2.840.114 350.1.13.10 4.2.7.2.686 [id number] [facility] 2022-08-18 00:00:00 2022-08-18 00:00:00 Patient Outreach Buck Rand BUILDING 1.2.840.114 350.1.13.10 4.2.7.2.686 [id number] [id number] [facility] 2022-08-14 14:30:00 2022-08-14 14:45:00 Gaggerman Visit Annette, Mario Lab Main Vance Pond [facility] BUILDING 1.2.840.114 350.1.13.10 4.2.7.2.686 [id number] [facility] 2022-08-14 11:00:00 2022-08-14 11:40:00 Office Visit Vance Pond [facility] BUILDING 1.2.840.114 350.1.13.10 4.2.7.2.686 [id number] 044 [id number] [facility] 2022-08-14 09:00:00 2022-08-14 10:07:13 Outpatient R ANNABELLEZAVANCE PRABHAKAR [facility] [id number] [facility] 2022-08-14 09:00:00 2022-08-14 10:07:13 Office Visit Vance Pond [facility] BUILDING 1.2840.114 350.1.13.10 4.2.7.2.686 [id number] 044 [id number] [facility] 2022-08-14 00:00:00 2022-08-14 00:00:00 Patient Secure Msg Doctor Unassigned, [place] [facility] 1.2840.114 350.1.13.10 4.2.7.2.686 [id number] 019 [id number] [facility] 2022-08-13 00:00:00 2022-08-13 00:00:00 Telephone Tanesha White BUILDING 1.2840.114 350.1.13.10 4.2.7.2.686 [id number] 080 [id number] [facility] 2022-08-12 14:20:00 2022-08-12 14:40:00 Nurse Visit Nurse, Vance Garduno [facility] BUILDING 1.84.114 350.1.13.10 4.2.7.2.686 [id number] 044 [id number] [facility] 2022-08-12 14:20:00 2022-08-12 13:44:57 Outpatient R VANCE POND [facility] [id number] [facility] 2022-08-10 00:00:00 2022-08-10 00:00:00 Refill Shaun Toscano [facility] BUILDING 1.284.114 350.1.13.10 4.2.7.2.686 [id number] 044 [id number] [facility] 2022-08-10 00:00:00 2022-08-10 00:00:00 RefVance Russ [facility] BUILDING 1.2840.114 350.1.13.10 4.2.7.2.686 [id number] 044 [id number] [facility] 2022-08-06 00:00:00 2022-08-06 00:00:00 Orders Only Doctor Unassigned, [place] [facility] 1.2840.114 350.1.13.10 4.2.7.2.686 [id number] [facility] 2022-07-30 10:00:00 2022-07-30 11:36:17 [facility] [id number] [facility] 2022-07-30 10:00:00 2022-07-30 11:36:17 Nurse Visit 1, [facility] Infusion Chair [facility] 1.0.114 350.1.13.10 4.2.7.2.686 [id number] 053 [id number] [facility] 2022-07-30 08:20:00 2022-07-30 08:51:28 Office Visit Tanesha White BUILDING 1.0.114 350.1.13.10 4.2.7.2.686 [id number] 080 [id number] [facility] 2022-07-28 07:45:00 2022-07-28 08:00:00 Gaggerman Visit Pob, Adc Lab Main Christopher [facility] 1.2.114 350.1.13.10 4.2.7.2.686 [id number] [facility] 2022-07-28 07:45:00 2022-07-28 07:45:00 [facility] [id number] [facility] 2022-07-28 00:00:00 2022-07-28 00:00:00 Orders Only Doctor Unassigned, [place] [facility] 1.2.840.114 350.1.13.10 4.2.7.2.686 [id number] [id number] [facility] 2022-07-23 07:44:49 2022-07-23 23:59:00 Hospital Encounter Tanesha White [facility] 1.2.840.114 350.1.13.10 4.2.7.2.686 [id number] [facility] 2022-07-23 07:44:08 2022-07-23 23:59:00 Outpatient R [facility]STOPHER [facility] [id number] [facility] 2022-07-23 07:44:08 2022-07-23 23:59:00 [facility] 1.2.840.114 350.1.13.10 4.2.7.2.686 [id number] [facility] 2022-07-09 11:30:00 2022-07-09 13:49:20 Nurse Visit 9, [facility] Infusion Chair Osmin JerezesTanesha gamble [facility] 1.2.840.114 350.1.13.10 4.2.7.2.686 [id number] 053 [id number] [facility] 2022-07-09 11:30:00 2022-07-09 11:30:00 Outpatient R CHRISTOPHERANUJAIT [facility] [id number] [facility] 2022-07-09 10:20:00 2022-07-09 11:18:20 Outpatient R OSMIN JEREZ [facility] [id number] [facility] 2022-07-09 10:20:00 2022-07-09 11:18:20 Office Visit Tanesha White Kaitlyn MCCULLOUG [facility] 1.2.840.114 350.1.13.10 4.2.7.2.686 [id number] 080 [id number] [facility] 2022-07-07 08:30:00 2022-07-07 08:45:00 Gaggerman Visit Annette, Mario Lab Main Tanesha White [facility] 1.840.114 350.1.13.10 4.2.7.2.686 [id number] [facility] 2022-07-07 08:30:00 2022-07-07 08:30:00 Outpatient R CHRISTOPHER TANESHA [facility] [id number] [facility] 2022-07-07 00:00:00 2022-07-07 00:00:00 Orders Only Doctor Unassigned, [place] [facility] 1.84.114 350.1.13.10 4.2.7.2.686 [id number] [id number] [facility] 2022-07-01 09:00:00 2022-07-01 09:00:00 Outpatient R VANCE POND [facility] [id number] [facility] 2022-07-01 00:00:00 2022-07-01 00:00:00 Case Management Tanesha White [facility] 1.840.114 350.1.13.10 4.2.7.2.686 [id number] 053 [id number] [facility] 2022-06-25 10:20:00 2022-06-25 10:20:00 Outpatient R TANESHA WHITE [facility] [id number] [facility] 2022-06-24 00:00:00 2022-06-24 00:00:00 Telephone Tanesha White [facility] 1.84.114 350.1.13.10 4.2.7.2.686 [id number] 080 [id number] [facility] 2022-06-24 00:00:00 2022-06-24 00:00:00 Patient Outreach Tanesha White BUILDING 1.0.114 350.1.13.10 4.2.7.2.686 [id number] 080 [id number] [facility] 2022-06-22 09:45:00 2022-06-22 10:00:00 Gaggerman Visit Pob, Adc Lab Main [facility] 1.20.114 350.1.13.10 4.2.7.2.686 [id number] 353 [id number] [facility] 2022-06-22 09:45:00 2022-06-22 09:45:00 Outpatient R JENNIFER JEREZLYN [facility] [id number] [facility] 2022-06-22 00:00:00 2022-06-22 00:00:00 Orders Only Doctor Unassigned, [place] [facility] 1.2840.114 350.1.13.10 4.2.7.2.686 [id number] [id number] [facility] 2022-06-18 00:00:00 2022-06-18 00:00:00 Patient Secure Msg Doctor Unassigned, [place] [facility] 1.2840.114 350.1.13.10 4.2.7.2.686 [id number] 082 [id number] [facility] 2022-06-03 13:00:00 2022-06-03 13:45:25 Outpatient R TANESHA WHITE [facility] [id number] [facility] 2022-06-03 13:00:00 2022-06-03 13:45:25 Nurse Visit 6, [facility] Infusion Chair Osmin Jerez [facility] 1.0.114 350.1.13.10 4.2.7.2.686 [id number] 053 [id number] [facility] 2022-06-03 11:00:00 2022-06-03 12:12:26 Office Visit Arnav Mendez BUILDING 1.2840.114 350.1.13.10 4.2.7.2.686 [id number] 080 [id number] [facility] 2022-06-03 00:00:00 2022-06-03 00:00:00 Case Management Arnav Mendez [facility] 1.2840.114 350.1.13.10 4.2.7.2.686 [id number] [facility] 2022-06-01 09:45:00 2022-06-01 10:00:00 Gaggerman Visit Annette, Mario Lab Radha Cabrera [facility] PROFESSIO [facility] BUILDING 1.2840.114 350.1.13.10 4.2.7.2.686 [id number] 353 [id number] [facility] 2022-06-01 09:45:00 2022-06-01 09:45:00 Outpatient R RADHA QUEVEDO [facility] [id number] [facility] 2022-06-01 00:00:00 2022-06-01 00:00:00 Orders Only Doctor Unassigned, [place] [facility] 1.2840.114 350.1.13.10 4.2.7.2.686 [id number] [id number] [facility] 2022-05-17 18:34:00 2022-05-17 22:08:00 Emergency X TABITHA GEORGES [facility] [id number] [facility] 2022-05-17 18:34:00 2022-05-17 22:08:00 Emergency Tabitha Georges [facility] 1.2840.114 350.1.13.10 4.2.7.2.686 [id number] [id number] [facility] 2022-05-13 13:30:00 2022-05-13 15:47:18 Outpatient R CHRISTOPHERTANESHA FUNES [facility] [id number] [facility] 2022-05-13 13:30:00 2022-05-13 15:47:18 Nurse Visit 1, [facility] Infusion Chair Osmin JerezTanesha [facility] 1.2.840.114 350.1.13.10 4.2.7.2.686 [id number] 053 [id number] [facility] 2022-05-13 11:00:00 2022-05-13 13:36:57 Office Visit Arnav Mendez BUILDING 1.2.840.114 350.1.13.10 4.2.7.2.686 [id number] 080 [id number] [facility] 2022-05-12 00:00:00 2022-05-12 00:00:00 Refill Shaun Toscano [facility] MEDICAL OFF[facility] BUILDING 1.2840.114 350.1.13.10 4.2.7.2.686 [id number] 044 [id number] [facility] 2022-05-12 00:00:00 2022-05-12 00:00:00 Refill Maynor Camara [facility] 1.2.840.114 350.1.13.10 4.2.7.2.686 [id number] [facility] 2022-05-12 00:00:00 2022-05-12 00:00:00 Refill Mihaela Burroughs [facility] MEDICAL OFFICE BUILDING 1.2840.114 350.1.13.10 4.2.7.2.686 [id number] 044 [id number] [facility] 2022-05-11 09:00:00 2022-05-11 09:15:00 Gaggerman Visit Pob, Adc Lab Main Osmin Jerez [facility] 1.20.114 350.1.13.10 4.2.7.2.686 [id number] [facility] 2022-05-11 09:00:00 2022-05-11 09:00:00 Outpatient SOMIN ATKINS [facility] [id number] [facility] 2022-05-06 00:00:00 2022-05-06 00:00:00 Vance Belle [facility] 1.2840.114 350.1.13.10 4.2.7.2.686 [id number] 044 [id number] [facility] 2022-05-05 00:00:00 2022-05-05 00:00:00 Orders Only Doctor Unassigned, [place] [facility] 1.2840.114 350.1.13.10 4.2.7.2.686 [id number] [facility] 2022-05-04 13:42:31 2022-05-04 23:59:00 Hospital Encounter Arnav Mendez [facility] 1.20.114 350.1.13.10 4.2.7.2.686 [id number] [facility] 2022-05-04 13:40:48 2022-05-04 13:41:00 Outpatient ARNAV DUPONT [facility] [id number] [facility] 2022-05-04 13:40:00 2022-05-04 13:41:00 Hospital Encounter Arnav Mendez [facility] 1.20.114 350.1.13.10 4.2.7.2.686 [id number] [facility] 2022-04-30 00:00:00 2022-04-30 00:00:00 Telephone Tanesha White [facility] 1.20.114 350.1.13.10 4.2.7.2.686 [id number] 080 [id number] [facility] 2022-04-29 00:00:00 2022-04-29 00:00:00 Telephone Vance Pond [facility] VANNESSA [facility] 1.2.840.114 350.1.13.10 4.2.7.2.686 [id number] 044 [id number] [facility] 2022-04-22 11:30:00 2022-04-22 13:30:00 Nurse Visit 4, [facility] 1..840.114 350.1.13.10 4.2.7.2.686 [id number] 053 [id number] [facility] 2022-04-22 11:30:00 2022-04-22 12:49:10 Outpatient R TANESHA WHITE [facility] [id number] [facility] 2022-04-22 11:30:00 2022-04-22 11:30:00 [id number] 2022-04-22 10:00:00 2022-04-22 10:48:24 Office Visit Arnav Mendez [facility] 1.2.840.114 350.1.13.10 4.2.7.2.686 [id number] [facility] 2022-04-22 10:00:00 2022-04-22 10:48:24 Outpatient ARNAV [facility] [id number] [facility] 2022-04-22 10:00:00 2022-04-22 10:00:00 Outpatient ARNAV [facility] [id number] [facility] 2022-04-20 09:15:00 2022-04-20 09:30:00 Gaggerman Visit Pob, Adc Lab Main Vance Pond Tanesha [facility] 1.2.840.114 350.1.13.10 4.2.7.2.686 [id number] [facility] 2022-04-20 09:15:00 2022-04-20 09:15:00 Outpatient TANESHA BROWN [facility] [id number] [facility] 2022-04-20 09:15:00 2022-04-20 09:15:00 Outpatient TANESHA BROWN [facility] [id number] [facility] 2022-04-20 00:00:00 2022-04-20 00:00:00 Case Management Osmin Jerez GHANSHYAMCHERYLZAIDA [facility] 1.2.840.114 350.1.13.10 4.2.7.2.686 [id number] [facility] 2022-04-20 00:00:00 2022-04-20 00:00:00 Telephone ChristopherTaneshaCHERYLZAIDA [facility] 1.2.840.114 350.1.13.10 4.2.7.2.686 [id number] [facility] 2022-04-17 00:00:00 2022-04-17 00:00:00 Telephone Vance Pond [facility] 1.2.840.114 350.1.13.10 4.2.7.2.686 [id number] [facility] 2022-04-17 00:00:00 2022-04-17 00:00:00 Telephone Vance Pond [facility] 1.2.840.114 350.1.13.10 4.2.7.2.686 [id number] [facility] 2022-04-17 00:00:00 2022-04-17 00:00:00 Orders Only Doctor Unassigned, [place] [facility] 1.2.840.114 350.1.13.10 4.2.7.2.686 [id number] [facility] 2022-04-16 13:30:00 2022-04-16 13:30:00 Outpatient R TANESHA WHITE [facility] [id number] [facility] 2022-04-16 00:00:00 2022-04-16 00:00:00 Telephone Tanesha White [facility] 1..840.114 350.1.13.10 4.2.7.2.686 [id number] [facility] 2022-04-15 09:00:00 2022-04-15 09:00:00 Outpatient ARNAV [facility] [id number] [facility] 2022-04-14 09:00:00 2022-04-14 09:15:00 [place]agg[place] Visit Pob, [facility].114 350.1.13.10 4.2.7.2.686 [id number] [facility] 2022-04-14 09:00:00 2022-04-14 09:15:00 Gaggerman Visit Pob, Adc Lab Main Osmin Jerez [facility] 1..840.114 350.1.13.10 4.2.7.2.686 [id number] [facility] 2022-04-14 09:00:00 2022-04-14 09:00:00 Outpatient R TANESHA WHITE [facility] [id number] [facility] 2022-04-10 00:00:00 2022-04-10 00:00:00 Case Management Osmin Jerez [facility] 1..840.114 350.1.13.10 4.2.7.2.686 [id number] [facility] 2022-04-09 00:00:00 2022-04-09 00:00:00 Orders Only Doctor Unassigned, [place] [facility] 1.2.840.114 350.1.13.10 4.2.7.2.686 [id number] [facility] 2022-04-07 00:00:00 2022-04-07 00:00:00 Telephone [facility] 1.2.840.114 350.1.13.10 4.2.7.2.686 [id number] 044 [id number] [facility] 2022-03-26 09:30:00 2022-03-26 11:30:00 Nurse Visit 3, [facility] Infusion Chair Tanesha White [facility] 1.2.840.114 350.1.13.10 4.2.7.2.686 [id number] 053 [id number] [facility] 2022-03-26 09:00:00 2022-03-26 10:15:30 Office Visit Tanesha White BUILDING 1.2.840.114 350.1.13.10 4.2.7.2.686 [id number] 080 [id number] [facility] 2022-03-26 09:30:00 2022-03-26 09:30:00 Outpatient R TANESHA WHITE [facility] [id number] [facility] 2022-03-26 09:30:00 2022-03-26 09:30:00 Outpatient R TANESHA WHITE [facility] [id number] [facility] 2022-03-26 09:30:00 2022-03-26 09:30:00 Outpatient R TANESHA WHITE [facility] [id number] [facility] 2022-03-25 15:00:00 2022-03-25 16:01:43 Outpatient R VANCE POND [facility] [id number] [facility] 2022-03-25 15:00:00 2022-03-25 16:01:43 Office Visit Vance Pond [facility] PROFESSIO NAL BUILDING 1.2.840.114 350.1.13.10 4.2.7.2.686 [id number] [facility] 2022-03-25 15:00:00 2022-03-25 15:00:00 Outpatient R VANCE POND [facility] [id number] [facility] 2022-03-25 15:00:00 2022-03-25 15:00:00 Outpatient R VANCE POND [facility] [id number] [facility] 2022-03-24 09:00:00 2022-03-24 09:15:00 Gaggerman Visit Pob, Adc Lab Main [facility] BUILDING 1..840.114 350.1.13.10 4.2.7.2.686 [id number] [facility] 2022-03-24 09:00:00 2022-03-24 09:00:00 Outpatient R CHRISTOPHER TANESHA [facility] [id number] [facility] 2022-03-24 00:00:00 2022-03-24 00:00:00 Case Management Christopher [facility] 1..114 350.1.13.10 4.2.7.2.686 [id number] [facility] 2022-03-05 13:00:00 2022-03-05 15:00:00 Nurse Visit 5, [facility] Infusion Chair Christopher [facility] 1.2840.114 350.1.13.10 4.2.7.2.686 [id number] 053 [id number] [facility] 2022-03-05 13:00:00 2022-03-05 15:00:00 Nurse Visit 5, [facility] Infusion Chair Tanesha White [facility] 1..840.114 350.1.13.10 4.2.7.2.686 [id number] 053 [id number] [facility] 2022-03-05 13:00:00 2022-03-05 13:00:00 [facility] [id number] 2022-03-05 13:00:00 2022-03-05 13:00:00 Outpatient R ANUJA WHITEIT [facility] [id number] [facility] 2022-03-05 13:00:00 2022-03-05 13:00:00 Outpatient R CHRISTOPHER, TANESHA [facility] [id number] [facility] 2022-03-05 08:40:00 2022-03-05 10:01:18 Office Visit Tanesha White [facility] 1..840.114 350.1.13.10 4.2.7.2.686 [id number] [facility] 2022-03-03 10:45:00 2022-03-03 11:00:00 Gaggerman Visit Pob, Adc Lab Main Jennifer Jerezlyn [facility] 1.2.840.114 350.1.13.10 4.2.7.2.686 [id number] 353 [id number] [facility] 2022-03-03 10:45:00 2022-03-03 10:45:00 Outpatient R MOSHE JEREZITLYN [facility] [id number] [facility] 2022-03-03 00:00:00 2022-03-03 00:00:00 Telephone ChristopherAnujaomid [facility] 1.2840.114 350.1.13.10 4.2.7.2.686 [id number] 080 [id number] [facility] 2022-02-20 00:00:00 2022-02-20 00:00:00 Orders Only Doctor Unassigned, [place] [facility] 1.2.840.114 350.1.13.10 4.2.7.2.686 [id number] [facility] 2022-02-18 00:00:00 2022-02-18 00:00:00 Refill Vance Pond [facility] PROFESSIO NAL BUILDING 1.2840.114 350.1.13.10 4.2.7.2.686 [id number] [facility] 2022-02-18 00:00:00 2022-02-18 00:00:00 Refill Mihaela Burroughs [facility] BU[facility] 1.2840.114 350.1.13.10 4.2.7.2.686 [id number] 044 [id number] [facility] 2022-02-13 00:00:00 2022-02-13 00:00:00 Telephone Tanesha White BUILDING 1.2840.114 350.1.13.10 4.2.7.2.686 [id number] 080 [id number] [facility] 2022-02-12 13:00:00 2022-02-12 15:00:00 Nurse Visit 5, [facility] Infusion Chair Christopher [facility] 1.2840.114 350.1.13.10 4.2.7.2.686 [id number] 053 [id number] [facility] 2022-02-12 13:00:00 2022-02-12 15:00:00 Nurse Visit 5, [facility] Infusion Chair Christopher [facility] 1.2840.114 350.1.13.10 4.2.7.2.686 [id number] [facility] 2022-02-12 13:00:00 2022-02-12 13:00:00 Outpatient R TANESHA WHITE [facility] [id number] [facility] 2022-02-12 09:00:00 2022-02-12 09:41:50 Office Visit Tanesha White [facility] 1..840.114 350.1.13.10 4.2.7.2.686 [id number] 080 [id number] [facility] 2022-02-12 09:00:00 2022-02-12 09:41:50 Outpatient R TANESHA WHITE [facility] [id number] [facility] 2022-02-10 09:15:00 2022-02-10 09:30:00 Gaggerman Visit Annette, [facility] 1.2.840.114 350.1.13.10 4.2.7.2.686 [id number] 353 [id number] [facility] 2022-02-10 09:15:00 2022-02-10 09:15:00 Outpatient R TANESHA WHITE [facility] [id number] [facility] 2022-02-10 00:00:00 2022-02-10 00:00:00 [facility] BU[facility] 1.2.840.114 350.1.13.10 4.2.7.2.686 [id number] [id number] [facility] 2022-02-05 00:00:00 2022-02-05 00:00:00 Case Management Tanesha White [facility] 1..840.114 350.1.13.10 4.2.7.2.686 [id number] [id number] [facility] 2022-01-30 00:00:00 2022-01-30 00:00:00 Telephone Fish, Raisa A [facility] BU[facility] 1.2.840.114 350.1.13.10 4.2.7.2.686 [id number] 044 [id number] [facility] 2022-01-26 08:31:09 2022-01-26 23:59:00 Hospital Encounter Osmin Jerez [facility] 1..840.114 350.1.13.10 4.2.7.2.686 [id number] [facility] 2022-01-26 08:30:00 2022-01-26 08:30:00 Outpatient R DEJA OSMIN [facility] [id number] [facility] 2022-01-26 08:30:00 2022-01-26 08:30:00 [place] [id number] [facility] 2022-01-26 08:30:00 2022-01-26 08:30:00 Hospital Encounter Jennifer Jerezlyn [facility] 1..840.114 350.1.13.10 4.2.7.2.686 [id number] [facility] 2022-01-22 13:00:00 2022-01-22 15:00:00 Nurse Visit 1, [facility] Infusion Chair Tanesha White [facility] 1..840.114 350.1.13.10 4.2.7.2.686 [id number] 053 [id number] [facility] 2022-01-22 09:00:00 2022-01-22 10:03:10 Outpatient R TANESHA WHITE [facility] [id number] [facility] 2022-01-22 09:00:00 2022-01-22 10:03:10 Office Visit Tanesha White BUILDING 1.2.840.114 350.1.13.10 4.2.7.2.686 [id number] [facility] 2022-01-22 09:00:00 2022-01-22 10:03:10 Outpatient R TANESHA WHITE [facility] [id number] [facility] 2022-01-22 09:00:00 2022-01-22 10:03:10 Office Visit Tanesha White BUILDING 1.2.840.114 350.1.13.10 4.2.7.2.686 [id number] [facility] 2022-01-20 09:00:00 2022-01-20 09:15:00 Gaggerman Visit Pob, Adc Lab Main [facility] 1.2.840.114 350.1.13.10 4.2.7.2.686 [id number] 353 [id number] [facility] 2022-01-20 09:00:00 2022-01-20 09:00:00 Outpatient R TANESHA WHITE [facility] [id number] [facility] 2022-01-14 11:00:00 2022-01-14 11:00:00 Outpatient R COLEMAN VAZQUEZ [facility] [id number] [facility]-11 00:00:00 2022-01-11 00:00:00 Mihaela Turner [facility]?BALTAZARLanie [facility] BUILDING 1.2.840.114 350.1.13.10 4.2.7.2.686 [id number] [id number] [facility] 2022-01-09 12:25:00 2022-01-09 15:42:00 Emergency X RUST ERT [id number] [facility] 2022-01-09 12:25:00 2022-01-09 15:42:00 Emergency [facility] 1.2.840.114 350.1.13.10 4.2.7.2.686 [id number] [facility] 2022-01-09 00:00:00 2022-01-09 00:00:00 Telephone Tanesha White [facility] BUILDING 1.2840.114 350.1.13.10 4.2.7.2.686 [id number] [id number] [facility] 2022-01-08 00:00:00 2022-01-08 00:00:00 Telephone Coleman Vazquez [facility] 1.2840.114 350.1.13.10 4.2.7.2.686 [id number] 161 [id number] [facility] 2022-01-06 00:00:00 2022-01-06 00:00:00 Telephone Mihaela Burroughs [facility] PRUETT [facility] BUILDING 1.2.840.114 350.1.13.10 4.2.7.2.686 [id number] [facility] 2022-01-03 00:00:00 2022-01-03 00:00:00 Patient Secure Msg Doctor Unassigned, [place] [facility] 1.2840.114 350.1.13.10 4.2.7.2.686 [id number] [facility] 2022-01-03 00:00:00 2022-01-03 00:00:00 Patient Secure Msg Doctor Unassigned, [place] [facility] 1.2.840.114 350.1.13.10 4.2.7.2.686 [id number] 019 [id number] [facility] 2022-01-02 12:30:00 2022-01-02 14:30:00 Nurse Visit 5, [facility] Infusion Chair Tanesha White [facility] 1.2840.114 350.1.13.10 4.2.7.2.686 [id number] 053 [id number] [facility] 2022-01-02 12:30:00 2022-01-02 12:30:00 Outpatient R TANESHA WHITE [facility] [id number] [facility] 2022-01-01 09:20:00 2022-01-01 09:40:00 Office Visit Tanesha White [facility] 1.2.840.114 350.1.13.10 4.2.7.2.686 [id number] [facility] 2022-01-01 09:20:00 2022-01-01 09:20:00 Outpatient R TANESHA WHITE [facility] [id number] [facility] 2022-01-01 09:20:00 2022-01-01 09:20:00 Outpatient R TANESHA WHITE [facility] [id number] [facility] 2021-12-30 08:30:00 2021-12-30 08:45:00 Gaggerman Visit Pob, Adc Lab Main Tanesha White [facility] BUILDING 1.2.840.114 350.1.13.10 4.2.7.2.686 [id number] [facility] 2021-12-30 08:30:00 2021-12-30 08:30:00 Outpatient R TANESHA WHITE [facility] [id number] [facility] 2021-12-30 00:00:00 2021-12-30 00:00:00 [facility] 1.2.840.114 350.1.13.10 4.2.7.2.686 [id number] 044 [id number] [facility] 2021-12-29 00:00:00 2021-12-29 00:00:00 Case Management Christopher, [facility] 1.114 350.1.13.10 4.2.7.2.686 [id number] [facility] 2021-12-25 14:00:00 2021-12-25 15:02:53 Outpatient R ANNABELLEZAVANCE PRABHAKAR [facility] [id number] [facility] 2021-12-25 14:00:00 2021-12-25 15:02:53 [facility] 1..114 350.1.13.10 4.2.7.2.686 [id number] [facility] 2021-12-25 14:00:00 2021-12-25 15:02:53 Outpatient R VANCE POND [facility] [id number] [facility] 2021-12-25 14:00:00 2021-12-25 14:00:00 Outpatient R VANCE POND [facility] [id number] [facility] 2021-12-22 00:00:00 2021-12-22 00:00:00 Telephone Coleman Vazquez [facility] 1.114 350.1.13.10 4.2.7.2.686 [id number] [facility] 2021-12-17 13:00:00 2021-12-17 13:00:00 Outpatient COLEMAN CAMPOS [facility] [id number] [facility] 2021-12-17 13:00:00 2021-12-17 13:00:00 Outpatient COLEMAN CAMPOS [facility] [id number] [facility] 2021-12-12 12:00:00 2021-12-12 14:00:00 Nurse Visit 5, [facility] Infusion Chair Christopher [facility] 1.114 350.1.13.10 4.2.7.2.686 [id number] [facility] 2021-12-12 12:00:00 2021-12-12 12:00:00 Outpatient R TANESHA WHITE [facility] [id number] [facility] 2021-12-11 10:20:00 2021-12-11 10:40:00 Office Visit Tanesha White [facility] 1.2.840.114 350.1.13.10 4.2.7.2.686 [id number] [facility] 2021-12-11 10:20:00 2021-12-11 10:20:00 Outpatient R TANESHA WHITE [facility] [id number] [facility] 2021-12-09 08:30:00 2021-12-09 08:45:00 Gaggerman Visit Pob, Adc Lab Main Tanesha White [facility] 1.2.840.114 350.1.13.10 4.2.7.2.686 [id number] [facility] 2021-12-09 08:30:00 2021-12-09 08:30:00 Outpatient R TANESHA WHITE [facility] [id number] [facility] 2021-12-08 00:00:00 2021-12-08 00:00:00 Telephone Raisa Whitten [facility] 1.2.840.114 350.1.13.10 4.2.7.2.686 [id number] [facility] 2021-12-03 16:30:00 2021-12-03 17:15:40 Outpatient R MIHAELA BURROUGHS [facility] [id number] [facility] 2021-12-03 16:30:00 2021-12-03 17:15:40 Office Visit Mihaela Burroughs [facility] BU[facility] 1.84.114 350.1.13.10 4.2.7.2.686 [id number] 044 [id number] [facility] 2021-12-01 00:00:00 2021-12-01 00:00:00 Telephone Mihaela Burroughs [facility] 1.114 350.1.13.10 4.2.7.2.686 [id number] [id number] [facility] 2021-11-26 08:40:00 2021-11-26 09:39:25 Outpatient R DEMI [facility] [id number] [facility] 2021-11-26 08:40:00 2021-11-26 09:39:25 Office Visit Demi [facility] BUILDING 1.84.114 350.1.13.10 4.2.7.2.686 [id number] [facility] 2021-11-26 08:40:00 2021-11-26 08:40:00 Outpatient R DEMI [facility] [id number] [facility] 2021-11-20 11:00:00 2021-11-20 13:00:00 Nurse Visit 5, [facility] Infusion Chair Tanesha White [facility] 1.114 350.1.13.10 4.2.7.2.686 [id number] 053 [id number] [facility] 2021-11-20 09:40:00 2021-11-20 10:00:00 Office Visit Tanesha White BUILDING 1..114 350.1.13.10 4.2.7.2.686 [id number] [facility] 2021-11-20 09:40:00 2021-11-20 09:40:00 Outpatient R TANESHA WHITE [facility] [id number] [facility] 2021-11-20 09:40:00 2021-11-20 09:40:00 Outpatient R CHRISTOPHER, TANESHA [facility] [id number] [facility] 2021-11-20 09:40:00 2021-11-20 09:40:00 Outpatient R CHRISTOPHER TANESHA [facility] [id number] [facility] 2021-11-19 15:30:00 2021-11-19 15:30:00 Outpatient R RAISA WHITTEN [facility] [id number] [facility] 2021-11-19 00:00:00 2021-11-19 00:00:00 Patient Secure Msg KenChristopher, Tanesha [facility] BUILDING 1.2.840.114 350.1.13.10 4.2.7.2.686 [id number] [facility] 2021-11-18 08:30:00 2021-11-18 08:45:00 Gaggerman Visit Pob, Adc Lab Main Manjeet Mihaela [facility] 1.2.840.114 350.1.13.10 4.2.7.2.686 [id number] [facility] 2021-11-18 08:30:00 2021-11-18 08:45:00 Gaggerman Visit Pob, Adc Lab Main Mihaela Burroughs [facility] 1.2.840.114 350.1.13.10 4.2.7.2.686 [id number] [facility] 2021-11-18 08:30:00 2021-11-18 08:30:00 Outpatient R MIHAELA BURROUGHS [facility] [id number] [facility] 2021-11-18 08:30:00 2021-11-18 08:30:00 Outpatient R MIHAELA BURROUGHS [facility] [id number] [facility] 2021-11-18 00:00:00 2021-11-18 00:00:00 Orders Only Doctor Unassigned, [place] [facility] 1.2.840.114 350.1.13.10 4.2.7.2.686 [id number] [facility] 2021-11-17 16:30:00 2021-11-17 17:13:45 Outpatient R MIHAELA BURROUGHS [facility] [id number] [facility] 2021-11-17 16:30:00 2021-11-17 17:13:45 Office Visit Mihaela Burroughs [facility] BUILDING 1.2.840.114 350.1.13.10 4.2.7.2.686 [id number] 044 [id number] [facility] 2021-11-17 00:00:00 2021-11-17 00:00:00 Telephone Raisa Whitten [facility] MED[facility] OFFICE BUILDING 1.2.840.114 350.1.13.10 4.2.7.2.686 [id number] 044 [id number] [facility] 2021-11-14 00:00:00 2021-11-14 00:00:00 [facility] 1.2.840.114 350.1.13.10 4.2.7.2.686 [id number] 080 [id number] [facility] 2021-11-14 00:00:00 2021-11-14 00:00:00 Telephone Tanesha White BUILDING 1.2840.114 350.1.13.10 4.2.7.2.686 [id number] 080 [id number] [facility] 2021-11-03 10:20:00 2021-11-03 10:20:00 Outpatient R QUIRINO JI [facility] [id number] [facility] 2021-11-03 00:00:00 2021-11-03 00:00:00 Patient Secure g Tanesha White BUILDING 1.2.840.114 350.1.13.10 4.2.7.2.686 [id number] [facility] 2021-11-03 00:00:00 2021-11-03 00:00:00 Patient Secure Tanesha Bravo BUILDING 1.2.840.114 350.1.13.10 4.2.7.2.686 [id number] [id number] [facility] 2021-10-30 09:20:00 2021-10-30 10:31:49 Office Visit Tanesha White BUILDING 1.2.840.114 350.1.13.10 4.2.7.2.686 [id number] [facility] 2021-10-30 09:20:00 2021-10-30 10:31:49 Outpatient R TANESHA WHIET [facility] [id number] [facility] 2021-10-30 09:20:00 2021-10-30 09:20:00 Outpatient R TANESHA WHITE [facility] [id number] [facility] 2021-10-28 10:30:00 2021-10-28 10:45:00 Gaggerman Visit Pob, Adc Lab Main [facility] 1.2.840.114 350.1.13.10 4.2.7.2.686 [id number] [facility] 2021-10-28 10:30:00 2021-10-28 10:30:00 Outpatient R ANUJA WHITEIT [facility] [id number] [facility] 2021-10-28 00:00:00 2021-10-28 00:00:00 Orders Only Doctor Unassigned, [place] [facility] 1.2840.114 350.1.13.10 4.2.7.2.686 [id number] [facility] 2021-10-23 00:00:00 2021-10-23 00:00:00 Telephone Raisa Whitten [facility] BUILD[facility] 1.2840.114 350.1.13.10 4.2.7.2.686 [id number] 044 [id number] [facility] 2021-10-17 09:10:49 2021-10-17 23:59:00 Hospital Encounter Christopher [facility] 1.20.114 350.1.13.10 4.2.7.2.686 [id number] [facility] 2021-10-17 09:09:09 2021-10-17 09:09:09 Outpatient R CHRISTOPHER [facility] [id number] [facility] 2021-10-17 09:09:09 2021-10-17 09:09:09 Hospital Encounter Christopher [facility] 1.2840.114 350.1.13.10 4.2.7.2.686 [id number] [facility] 2021-10-17 00:00:00 2021-10-17 00:00:00 Patient Secure Msg Doctor Unassigned, [place] [facility] 1.2840.114 350.1.13.10 4.2.7.2.686 [id number] [facility] 2021-10-17 00:00:00 2021-10-17 00:00:00 Telephone Quirino Ji [facility] PROFESSIO NAL BUILDING 1.2840.114 350.1.13.10 4.2.7.2.686 [id number] 059 [id number] [facility] 2021-10-11 18:40:00 2021-10-11 22:08:00 Emergency X MARC MISHRA [facility] [id number] [facility] 2021-10-11 18:40:00 2021-10-11 22:08:00 Emergency Marc Mishra F [facility] 1..840.114 350.1.13.10 4.2.7.2.686 [id number] [facility] 2021-10-10 10:00:00 2021-10-10 10:00:00 Outpatient R VANCE POND [facility] [id number] [facility] 2021-10-10 10:00:00 2021-10-10 10:00:00 Outpatient R SALTY [facility] [id number] [facility] 2021-10-09 09:00:00 2021-10-09 09:20:00 Office Visit Tanesha White BUILDING 1.2.840.114 350.1.13.10 4.2.7.2.686 [id number] [facility] 2021-10-09 09:00:00 2021-10-09 09:00:00 Outpatient R TANESHA WHITE [facility] [id number] [facility] 2021-10-09 09:00:00 2021-10-09 09:00:00 Outpatient R TANESHA WHITE [facility] [id number] [facility] 2021-10-08 13:00:00 2021-10-08 13:07:01 Outpatient R TANESHA WHITE [facility] [id number] [facility] 2021-10-08 13:00:00 2021-10-08 13:07:01 Gaggerman Visit Pob, Adc Lab Main Raisa Whitten Rohit [facility] PROFESSIO [facility] 1.2.840.114 350.1.13.10 4.2.7.2.686 [id number] [facility] 2021-09-30 10:30:00 2021-09-30 10:45:00 Gaggerman Visit Pob, Adc Lab Main Raisa Whitten Rohit [facility] 1.84.114 350.1.13.10 4.2.7.2.686 [id number] [facility] 2021-09-30 10:30:00 2021-09-30 10:30:00 Outpatient R CHRI[facility]HER[facility]UJAIT [facility] [id number] [facility] 2021-09-18 09:45:00 2021-09-18 13:45:00 Nurse Visit 3, [facility] Infusion Chair Tanesha White [facility] 1..114 350.1.13.10 4.2.7.2.686 [id number] [facility] 2021-09-18 09:20:00 2021-09-18 10:22:36 [facility] 1.84.114 350.1.13.10 4.2.7.2.686 [id number] [facility] 2021-09-18 09:20:00 2021-09-18 10:22:36 Outpatient R CHRISTOPHER TANESHA [facility] [id number] [facility] 2021-09-18 09:45:00 2021-09-18 09:45:00 Outpatient R CHRISTOPHER TANESHA [facility] [id number] [facility] 2021-09-18 00:00:00 2021-09-18 00:00:00 Quirino Michel [facility] 1.84.114 350.1.13.10 4.2.7.2.686 [id number] [facility] 2021-09-16 15:00:00 2021-09-16 15:15:00 Gaggerman Visit Annette, Mario [facility] 1..840.114 350.1.13.10 4.2.7.2.686 [id number] [facility] 2021-09-16 15:00:00 2021-09-16 15:00:00 Outpatient R TANESHA WHITE [facility] [id number] [facility] 2021-09-16 14:00:00 2021-09-16 14:00:00 Outpatient QUIRINO PACHECO [facility] [id number] [facility] 2021-09-16 00:00:00 2021-09-16 00:00:00 Orders Only Doctor Unassigned, [place] [facility] 1.840.114 350.1.13.10 4.2.7.2.686 [id number] [facility] 2021-09-16 00:00:00 2021-09-16 00:00:00 Refill Raisa Whitten A [facility] 1..840.114 350.1.13.10 4.2.7.2.686 [id number] [facility] 2021-08-28 12:00:00 2021-08-28 12:00:00 Outpatient R ANUJA WHITEIT [facility] [id number] [facility] 2021-08-28 00:00:00 2021-08-28 00:00:00 Refill Quirino Ji [facility] 1..840.114 350.1.13.10 4.2.7.2.686 [id number] [facility] 2021-08-18 00:00:00 2021-08-18 00:00:00 Telephone Tanesha White [facility] 1.2.840.114 350.1.13.10 4.2.7.2.686 [id number] [facility] 2021-08-14 10:20:00 2021-08-14 10:53:09 Outpatient R TANESHA WHITE [facility] [id number] [facility] 2021-08-14 10:20:00 2021-08-14 10:53:09 Office Visit Tanesha White [facility] 1.2.840.114 350.1.13.10 4.2.7.2.686 [id number] [facility] 2021-08-14 10:20:00 2021-08-14 10:53:09 Outpatient R TANESHA WHITE [facility] [id number] [facility] 2021-08-12 00:00:00 2021-08-12 00:00:00 Telephone Tanesha White [facility] 1.2.840.114 350.1.13.10 4.2.7.2.686 [id number] [facility] 2021-08-11 09:30:00 2021-08-11 09:45:00 Gaggerman Visit Pob, Adc Lab [facility] 1.2.840.114 350.1.13.10 4.2.7.2.686 [id number] [facility] 2021-08-11 09:30:00 2021-08-11 09:30:00 Outpatient Finn [facility]ER [facility] [id number] [facility] 2021-08-11 09:30:00 2021-08-11 09:30:00 Outpatient Finn FISHER [facility] [id number] [facility] 2021-07-31 09:30:00 2021-07-31 09:30:00 Outpatient R GRACIE OSBORNEDEEPA YUSUF [facility] [id number] [facility] 2021-07-30 08:09:57 2021-07-30 23:59:00 Hospital Encounter Jennifer Jerezlyn [facility] 1.2.840.114 350.1.13.10 4.2.7.2.686 [id number] [facility] 2021-07-30 08:09:57 2021-07-30 23:59:00 Outpatient R OSMIN JEREZ [facility] [id number] [facility] 2021-07-30 08:09:32 2021-07-30 23:59:00 Outpatient R JENNIFER JEREZLYN [facility] [id number] [facility] 2021-07-30 08:09:32 2021-07-30 23:59:00 Hospital Encounter Osmin Jerez [facility] 1.2.840.114 350.1.13.10 4.2.7.2.686 [id number] [facility] 2021-07-17 08:50:37 2021-07-17 12:50:37 Nurse Visit 1, [facility] Infusion Chair Tanesha White [facility] 1.2.840.114 350.1.13.10 4.2.7.2.686 [id number] [facility] 2021-07-17 10:00:00 2021-07-17 10:00:00 Outpatient TANESHA BROWN [facility] [id number] [facility] 2021-07-17 10:00:00 2021-07-17 10:00:00 Outpatient R TANESHA WHITE [facility] [id number] [facility] 2021-07-17 07:45:55 2021-07-17 08:46:03 Office Visit Tanesha White [facility]ILD[facility] 1.0.114 350.1.13.10 4.2.7.2.686 [id number] [facility] 2021-07-14 09:30:00 2021-07-14 09:30:00 Outpatient R TANESHA WHITE [facility] [id number] [facility] 2021-07-14 09:30:00 2021-07-14 09:30:00 Outpatient R TANESHA WHITE [facility] [id number] [facility] 2021-07-14 08:33:42 2021-07-14 08:48:42 Gaggerman Visit Poalejandra, Adc Lab Main aTnesha White [facility] N[facility]ILD[facility] 1..114 350.1.13.10 4.2.7.2.686 [id number] [facility] 2021-07-14 00:00:00 2021-07-14 00:00:00 Orders Only Doctor Unassigned, [place] [facility] 1.0.114 350.1.13.10 4.2.7.2.686 [id number] [id number] [facility] 2021-07-14 00:00:00 2021-07-14 00:00:00 Telephone Coleman Vazquez [facility] 1..114 350.1.13.10 4.2.7.2.686 [id number] [facility] 2021-07-13 00:00:00 2021-07-13 00:00:00 Refill Raisa Whitten [facility] 1.84.114 350.1.13.10 4.2.7.2.686 [id number] [facility] 2021-07-11 00:00:00 2021-07-11 00:00:00 Telephone Dee Smith [facility] 1.2.840.114 350.1.13.10 4.2.7.2.686 [id number] [facility] 2021-07-11 00:00:00 2021-07-11 00:00:00 Refill Tanesha White GHANSHYAMROBERTSharmila [facility] 1.2.840.114 350.1.13.10 4.2.7.2.686 [id number] [facility] 2021-07-01 00:00:00 2021-07-01 00:00:00 Telephone [facility]Anuj[facility] 1.2.840.114 350.1.13.10 4.2.7.2.686 [id number] [facility] 2021-06-27 00:00:00 2021-06-27 00:00:00 Refill [facility] 1.2840.114 350.1.13.10 4.2.7.2.686 [id number] [id number] [facility] 2021-06-25 12:30:00 2021-06-25 12:30:00 Outpatient R CHRISTOPHER TANESHA [facility] [id number] [facility] 2021-06-25 12:30:00 2021-06-25 12:30:00 Outpatient R TANESHA WHITE [facility] [id number] [facility] 2021-06-25 09:52:31 2021-06-25 12:22:31 Nurse Visit 5, [facility] Infusion Chair Tanesha White [facility] 1.2840.114 350.1.13.10 4.2.7.2.686 [id number] [facility] 2021-06-25 00:00:00 2021-06-25 00:00:00 Case Management Christopher Tanesha SAUD [facility] 1.0.114 350.1.13.10 4.2.7.2.686 [id number] [facility] 2021-06-23 08:17:53 2021-06-23 08:32:53 Gaggerman Visit Pob, Adc Lab Main Tanesha White [facility] 1.20.114 350.1.13.10 4.2.7.2.686 [id number] [facility] 2021-06-23 08:15:00 2021-06-23 08:15:00 Outpatient R TANESHA WHITE [facility] [id number] [facility] 2021-06-23 08:15:00 2021-06-23 08:15:00 Outpatient R TANESHA WHITE [facility] [id number] [facility] 2021-06-23 00:00:00 2021-06-23 00:00:00 Orders Only Doctor Unassigned, [place] [facility] 1.2840.114 350.1.13.10 4.2.7.2.686 [id number] [facility] 2021-06-17 00:00:00 2021-06-17 00:00:00 Telephone Nadja Cardenas [facility] 1.20.114 350.1.13.10 4.2.7.2.686 [id number] [facility] 2021-06-04 10:58:26 2021-06-04 14:58:26 Nurse Visit 3, [facility] Infusion Chair Tanesha White [facility] 1.2840.114 350.1.13.10 4.2.7.2.686 [id number] [facility] 2021-06-04 10:00:14 2021-06-04 10:37:29 Office Visit Tanesha White BUILDING 1.2.840.114 350.1.13.10 4.2.7.2.686 [id number] [facility] 2021-06-04 09:40:00 2021-06-04 10:37:29 Outpatient R CHRISTOPHER, TANESHA [facility] [id number] [facility] 2021-06-04 10:30:00 2021-06-04 10:30:00 Outpatient R CHRISTOPHERTANESHA FUNES [facility] [id number] [facility] 2021-06-04 10:30:00 2021-06-04 10:30:00 Outpatient R CHRISTOPHER, TANESHA [facility] [id number] [facility] 2021-06-02 11:00:00 2021-06-02 11:00:00 Outpatient RADHA DOMÍNGUEZ [facility] [id number] [facility] 2021-06-02 11:00:00 2021-06-02 11:00:00 Outpatient RADHA DOMÍNGUEZ [facility] [id number] [facility] 2021-06-02 11:00:00 2021-06-02 11:00:00 Outpatient RADHA DOMÍNGUEZ [facility] [id number] [facility] 2021-06-02 08:21:47 2021-06-02 08:36:47 Gaggerman Visit Pob, Adc Lab Main Radha Quevedo [facility] 1.2.840.114 350.1.13.10 4.2.7.2.686 [id number] [facility] 2021-05-29 09:40:00 2021-05-29 09:40:00 Outpatient R CHRISTOPHER, TANESHA [facility] [id number] [facility] 2021-05-29 09:40:00 2021-05-29 09:40:00 Outpatient R TANESHA WHITE [facility] [id number] [facility] 2021-05-27 13:30:00 2021-05-27 13:30:00 Outpatient R COLEMAN ELY [facility] [id number] [facility] 2021-05-27 13:08:30 2021-05-27 13:23:30 Office Visit Coleman Ely [facility] 1.840.114 350.1.13.10 4.2.7.2.686 [id number] [facility] 2021-05-27 00:00:00 2021-05-27 00:00:00 Orders Only Doctor Unassigned, [place] [facility] 1.84.114 350.1.13.10 4.2.7.2.686 [id number] [facility] 2021-05-15 00:00:00 2021-05-15 00:00:00 Telephone Raisa Whitten [facility] Medical Office Building 1.84.114 350.1.13.10 4.2.7.2.686 [id number] [facility] 2021-05-14 09:48:38 2021-05-14 13:48:38 Nurse Visit 3, [facility] Infusion Chair Tanesha White [facility] 1.84.114 350.1.13.10 4.2.7.2.686 [id number] [facility] 2021-05-14 10:30:00 2021-05-14 10:30:00 Outpatient R TANESHA WHITE [facility] [id number] [facility] 2021-05-14 10:30:00 2021-05-14 10:30:00 Outpatient R TANESHA WHITE [facility] [id number] [facility] 2021-05-14 10:30:00 2021-05-14 10:30:00 Outpatient R TANESHA WHITE [facility] [id number] [facility] 2021-05-12 10:30:00 2021-05-12 11:57:18 Outpatient R TANESHA WHITE [facility] [id number] [facility] 2021-05-12 11:00:00 2021-05-12 11:00:00 Outpatient R TANESHA WHITE [facility] [id number] [facility] 2021-05-12 11:00:00 2021-05-12 11:00:00 Outpatient R TANESHA WHITE [facility] [id number] [facility] 2021-05-12 09:47:16 2021-05-12 10:02:16 Gaggerman Visit Pob, Adc Lab Main Tanesha White [facility] 1..840.114 350.1.13.10 4.2.7.2.686 [id number] [facility] 2021-05-12 00:00:00 2021-05-12 00:00:00 Orders Only Doctor Unassigned, [place] [facility] 1.2.840.114 350.1.13.10 4.2.7.2.686 [id number] [facility] 2021-05-08 09:40:00 2021-05-08 09:58:14 Outpatient R TANESHA WHITE [facility] [id number] [facility] 2021-05-08 09:01:24 2021-05-08 09:58:14 Office Visit Christopher Taneshaomid [facility] 1..840.114 350.1.13.10 4.2.7.2.686 [id number] [facility] 2021-05-08 09:40:00 2021-05-08 09:40:00 Outpatient R TANESHA WHITE [facility] [id number] [facility] 2021-04-30 00:00:00 2021-04-30 00:00:00 Telephone FishRaisa [facility] Edgard?Ronny dolan Medical Office Building 1.2.840.114 350.1.13.10 4.2.7.2.686 [id number] [facility] 2021-04-28 00:00:00 2021-04-28 00:00:00 Refill FishRaisa [facility] Professio nal Office Building One 1.2840.114 350.1.13.10 4.2.7.2.686 [id number] [facility] 2021-04-25 13:57:16 2021-04-25 23:59:00 Hospital Encounter Christopher [facility] 1.2.840.114 350.1.13.10 4.2.7.2.686 [id number] [facility] 2021-04-25 13:55:22 2021-04-25 13:56:00 Hospital Encounter Christopher [facility] 1.2.840.114 350.1.13.10 4.2.7.2.686 [id number] [facility] 2021-04-25 00:00:00 2021-04-25 00:00:00 Outpatient R TANESHA WHITE [facility] [id number] [facility] 2021-04-23 10:04:08 2021-04-23 14:04:08 Nurse Visit 3, [facility] Infusion Chair Tanesha White [facility] 1.2.840.114 350.1.13.10 4.2.7.2.686 [id number] [facility] 2021-04-23 10:30:00 2021-04-23 10:30:00 Outpatient R TANESHA WHITE [facility] [id number] [facility] 2021-04-23 10:30:00 2021-04-23 10:30:00 Outpatient R TANESHA WHITE [facility] [id number] [facility] 2021-04-23 00:00:00 2021-04-23 00:00:00 Orders Only Doctor Unassigned, [place] [facility] 1.114 350.1.13.10 4.2.7.2.686 [id number] [facility] 2021-04-21 10:57:16 2021-04-21 11:12:16 Gaggerman Visit 1, Radha Solomon [facility] 1.114 350.1.13.10 4.2.7.2.686 [id number] [facility] 2021-04-21 11:00:00 2021-04-21 11:00:00 Outpatient R [facility] [id number] [facility] 2021-04-21 11:00:00 2021-04-21 11:00:00 Outpatient RADHA DOMÍNGUEZ [facility] [id number] [facility] 2021-04-21 00:00:00 2021-04-21 00:00:00 Orders Only Doctor Unassigned, [place] [facility] 1.114 350.1.13.10 4.2.7.2.686 [id number] [facility] 2021-04-19 00:00:00 2021-04-19 00:00:00 Refill Raisa Whitten [facility] Office Building One 1.114 350.1.13.10 4.2.7.2.686 [id number] [facility] 2021-04-17 09:20:00 2021-04-17 10:05:31 Outpatient R CHRISTOPHER TANESHA [facility] [id number] [facility] 2021-04-17 08:47:40 2021-04-17 10:05:31 Office Visit Christopher Tanesha GHANSHYAMNICKIE BUILDING 1..114 350.1.13.10 4.2.7.2.686 [id number] [facility] 2021-04-17 09:20:00 2021-04-17 09:20:00 Outpatient R CHRISTOPHER TANESHA [facility] [id number] [facility] 2021-04-12 00:00:00 2021-04-12 00:00:00 Refill Fish Raisa Dela Cruz [facility] Office Building One 1..114 350.1.13.10 4.2.7.2.686 [id number] [facility] 2021-04-03 00:00:00 2021-04-03 00:00:00 Refill Fish Raisa Dela Cruz [facility] Office Building One 1..114 350.1.13.10 4.2.7.2.686 [id number] [facility] 2021-04-03 00:00:00 2021-04-03 00:00:00 Refill Fish Raisa Dela Cruz [facility] Office Building One 1..114 350.1.13.10 4.2.7.2.686 [id number] [facility] 2021-04-02 10:29:32 2021-04-02 14:29:32 Nurse Visit 4, [facility] Infusion Chair Tanesha White [facility] 1..114 350.1.13.10 4.2.7.2.686 [id number] 053 [id number] [facility] 2021-04-02 10:29:32 2021-04-02 14:29:32 Nurse Visit 4, [facility] Infusion Chair Tanesha White [facility] 1.114 350.1.13.10 4.2.7.2.686 [id number] [facility] 2021-04-02 11:00:00 2021-04-02 11:00:00 Outpatient R CHRISTOPHER [facility] [id number] [facility] 2021-04-02 11:00:00 2021-04-02 11:00:00 Outpatient R CHRISTOPHER [facility] [id number] [facility] 2021-03-31 11:45:00 2021-03-31 11:45:00 Outpatient R CHRISTOPHER [facility] [id number] [facility] 2021-03-31 11:45:00 2021-03-31 11:45:00 [facility] [id number] [facility] 2021-03-31 10:50:00 2021-03-31 11:05:00 Gaggerman Visit Annette, Mario Lab Main Christopher [facility] Building 1..114 350.1.13.10 4.2.7.2.686 [id number] [facility] 2021-03-31 00:00:00 2021-03-31 00:00:00 Orders Only Doctor Unassigned, [place] [facility] 1..114 350.1.13.10 4.2.7.2.686 [id number] [id number] [facility] 2021-03-28 08:53:51 2021-03-28 10:02:48 Office Visit Deepa Osborne [facility] Building 1.114 350.1.13.10 4.2.7.2.686 [id number] [facility] 2021-03-28 09:00:00 2021-03-28 09:00:00 Outpatient R DEEPA OSBORNE SHINJAdam [facility] [id number] [facility] 2021-03-27 00:00:00 2021-03-27 00:00:00 Outpatient [facility] [id number] [facility] 2021-03-26 12:30:00 2021-03-26 12:30:00 Outpatient R NOONAN JOSE [facility] [id number] [facility] 2021-03-24 10:44:31 2021-03-24 10:59:31 Gaggerman Visit Only, Adc Test Deepa Osborne [facility] 1..114 350.1.13.10 4.2.7.2.686 [id number] [facility] 2021-03-24 08:15:00 2021-03-24 08:15:00 Outpatient R DEEPA OSBORNE SHIWAN [facility] [id number] [facility] 2021-03-21 00:00:00 2021-03-21 00:00:00 Refill Quirino Ji [facility] Professio [facility] Building 1..114 350.1.13.10 4.2.7.2.686 [id number] [id number] [facility] 2021-03-21 00:00:00 2021-03-21 00:00:00 Orders Only Doctor Unassigned, [place] [facility] 1..114 350.1.13.10 4.2.7.2.686 [id number] [id number] [facility] 2021-03-20 08:46:55 2021-03-20 09:20:40 Office Visit Tanesha White BUILDING 1..114 350.1.13.10 4.2.7.2.686 [id number] [facility] 2021-03-20 09:00:00 2021-03-20 09:00:00 Outpatient R TANESHA WHITE [facility] [id number] [facility] 2021-03-20 00:00:00 2021-03-20 00:00:00 Refill Dong Jean Baptiste A [facility] Office Building One 1.0.114 350.1.13.10 4.2.7.2.686 [id number] [facility] 2021-03-20 00:00:00 2021-03-20 00:00:00 Refill Raisa Whitten [facility] Office Building One 1..114 350.1.13.10 4.2.7.2.686 [id number] [id number] [facility] 2021-03-20 00:00:00 2021-03-20 00:00:00 Telephone Dee Smith [facility] 1.0.114 350.1.13.10 4.2.7.2.686 [id number] [facility] 2021-03-19 00:00:00 2021-03-19 00:00:00 Telephone Deepa Osborne [facility] Building 1..114 350.1.13.10 4.2.7.2.686 [id number] [facility] 2021-03-12 09:24:39 2021-03-12 13:24:39 Nurse Visit 7, [facility] 1..114 350.1.13.10 4.2.7.2.686 [id number] [facility] 2021-03-12 10:30:00 2021-03-12 10:30:00 Outpatient R TANESHA WHITE [facility] [id number] [facility] 2021-03-12 10:30:00 2021-03-12 10:30:00 Outpatient TANESHA BROWN [facility] [id number] [facility] 2021-03-12 00:00:00 2021-03-12 00:00:00 Case Management Tanesha White BUILDING 1.2.840.114 350.1.13.10 4.2.7.2.686 [id number] [facility] 2021-03-12 00:00:00 2021-03-12 00:00:00 Case Management Tanesha White [facility] 1.2.840.114 350.1.13.10 4.2.7.2.686 [id number] [facility] 2021-03-10 15:00:00 2021-03-10 15:00:00 Outpatient Finn KRISTINCOLEMAN [facility] [id number] [facility] 2021-03-10 13:34:49 2021-03-10 14:34:49 Office Visit GaryDee lobo Coleman [facility] 1.2.840.114 350.1.13.10 4.2.7.2.686 [id number] [facility] 2021-03-10 13:34:49 2021-03-10 14:34:49 Office Visit Dee Smith Coleman [facility] 1.2.840.114 350.1.13.10 4.2.7.2.686 [id number] [facility] 2021-03-10 11:00:00 2021-03-10 11:00:00 Outpatient R TANESHA WHITE [facility] [id number] [facility] 2021-03-10 08:57:30 2021-03-10 09:12:30 Gaggerman Visit 1, Adc Lab Tanesha White [facility] 1.2.840.114 350.1.13.10 4.2.7.2.686 [id number] [facility] 2021-03-10 00:00:00 2021-03-10 00:00:00 Telephone Deepa Osborne [facility] 1.2.840.114 350.1.13.10 4.2.7.2.686 [id number] [facility] 2021-03-08 06:17:00 2021-03-08 11:31:00 Emergency Choco Pool [facility] 1.2.840.114 350.1.13.10 4.2.7.2.686 [id number] [facility] 2021-03-07 00:00:00 2021-03-07 00:00:00 Telephone Tanesha White SAUD [facility] 1.2.840.114 350.1.13.10 4.2.7.2.686 [id number] [id number] [facility] 2021-03-06 08:36:43 2021-03-06 09:06:43 Office Visit Deepa Osborne [facility] 1.2.840.114 350.1.13.10 4.2.7.2.686 [id number] [facility] 2021-03-06 09:00:00 2021-03-06 09:00:00 Outpatient R DEEPA OSBORNE SHIWAN [facility] [id number] [facility] 2021-02-28 00:00:00 2021-02-28 00:00:00 Patient Outreach Buck Rand [facility] 1.2.840.114 350.1.13.10 4.2.7.2.686 [id number] [facility] 2021-02-27 10:00:00 2021-02-27 10:12:43 Outpatient R TANESHA WHITE [facility] [id number] [facility] 2021-02-27 09:15:08 2021-02-27 10:12:43 Office Visit [facility]anes[facility] 1.2.840.114 350.1.13.10 4.2.7.2.686 [id number] [facility] 2021-02-27 10:00:00 2021-02-27 10:00:00 Outpatient R TANESHA WHITE [facility] [id number] [facility] 2021-02-27 00:00:00 2021-02-27 00:00:00 Sidney Mull[facility] 1.2.840.114 350.1.13.10 4.2.7.2.686 [id number] [facility] 2021-02-25 11:00:00 2021-02-25 11:00:00 Outpatient R TANESHA WHITE [facility] [id number] [facility] 2021-02-25 10:21:10 2021-02-25 10:36:10 Gaggerman Visit Pob, Adc Lab Main Anuja Whiteit [facility] 1.2.840.114 350.1.13.10 4.2.7.2.686 [id number] [facility] 2021-02-25 00:00:00 2021-02-25 00:00:00 Patient Secure Msg Tanesha White [facility] 1.2.840.114 350.1.13.10 4.2.7.2.686 [id number] [facility] 2021-02-25 00:00:00 2021-02-25 00:00:00 Telephone Raisa Whitten [facility] Office Building One 1.840.114 350.1.13.10 4.2.7.2.686 [id number] [facility] 2021-02-21 00:00:00 2021-02-21 00:00:00 Patient Secure Msg FernandezaugustemaRosalba [facility] 1.84.114 350.1.13.10 4.2.7.2.686 [id number] [facility] 2021-02-20 11:00:00 2021-02-20 11:00:00 Outpatient R TANESHA WHITE [facility] [id number] [facility] 2021-02-19 10:15:16 2021-02-19 14:15:16 Nurse Visit 2, [facility] 1.840.114 350.1.13.10 4.2.7.2.686 [id number] [facility] 2021-02-19 11:00:00 2021-02-19 11:00:00 Outpatient R TANESHA WHITE [facility] [id number] [facility] 2021-02-19 11:00:00 2021-02-19 11:00:00 Outpatient R TANESHA WHITE [facility] [id number] [facility] 2021-02-14 00:00:00 2021-02-14 00:00:00 Refill Tanesha White [facility] 1.840.114 350.1.13.10 4.2.7.2.686 [id number] [facility] 2021-02-10 00:00:00 2021-02-10 00:00:00 Telephone Raisa Whitten [facility] 1.2.840.114 350.1.13.10 4.2.7.2.686 [id number] [facility] 2021-02-04 13:55:00 2021-02-04 17:28:00 Emergency Rosalinda Leo [facility] 1.2.840.114 350.1.13.10 4.2.7.2.686 [id number] [facility] 2021-02-04 00:00:00 2021-02-04 00:00:00 Telephone Raisa Whitten [facility] 1.840.114 350.1.13.10 4.2.7.2.686 [id number] [facility] 2021-01-31 00:00:00 2021-01-31 00:00:00 [facility] 1.2.840.114 350.1.13.10 4.2.7.2.686 [id number] [facility] 2021-01-30 00:00:00 2021-01-30 00:00:00 Dong Thomas [facility] 1.2.840.114 350.1.13.10 4.2.7.2.686 [id number] 044 [id number] [facility] 2021-01-29 00:00:00 2021-01-29 00:00:00 Case Management Tanesha White [facility] 1.2.840.114 350.1.13.10 4.2.7.2.686 [id number] [facility] 2021-01-28 00:00:00 2021-01-28 00:00:00 [facility] 1.2.840.114 350.1.13.10 4.2.7.2.686 [id number] [facility] 2021-01-28 00:00:00 2021-01-28 00:00:00 Case Management Tanesha White [facility] 1.0.114 350.1.13.10 4.2.7.2.686 [id number] [facility] 2021-01-27 16:00:00 2021-01-27 17:42:36 Outpatient R TANESHA WHITE [facility] [id number] [facility] 2021-01-27 15:34:16 2021-01-27 17:42:36 Office [facility] 1.840.114 350.1.13.10 4.2.7.2.686 [id number] [facility] 2021-01-27 16:00:00 2021-01-27 16:00:00 Outpatient R TANESHA WHITE [facility] [id number] [facility] 2021-01-27 00:00:00 2021-01-27 00:00:00 Orders Only Doctor Unassigned, [place] [facility] 1.0.114 350.1.13.10 4.2.7.2.686 [id number] [id number] [facility] 2021-01-24 11:29:11 2021-01-24 13:15:15 Office Visit Raisa Whitten [facility] Office Building One 1.84.114 350.1.13.10 4.2.7.2.686 [id number] [facility] 2021-01-24 11:30:00 2021-01-24 11:30:00 Outpatient R RAISA WHITTEN [facility] [id number] [facility] 2021-01-24 00:00:00 2021-01-24 00:00:00 Orders Only Doctor Unassigned, [place] [facility] 1.2.840.114 350.1.13.10 4.2.7.2.686 [id number] [facility] 2021-01-20 12:16:03 2021-01-20 23:59:00 Hospital Encounter Shashi Tiradoel [facility] 1.2.840.114 350.1.13.10 4.2.7.2.686 [id number] [facility] 2021-01-20 00:00:00 2021-01-20 00:00:00 Outpatient R CHRISTINE TIRADO [facility] [id number] [facility] 2021-01-20 00:00:00 2021-01-20 00:00:00 Transition of Care Serina Maradiaga 1.2.840.114 350.1.13.10 4.2.7.2.686 [id number] [facility] 2021-01-16 17:09:00 2021-01-17 16:31:00 Emergency Ronit Enrique David [facility] 1.2.840.114 350.1.13.10 4.2.7.2.686 [id number] [facility] 2021-01-17 09:52:00 2021-01-17 11:15:00 Anesthesia Event LarkinBisi Moss Leonard [facility] Surgical Ethel 1.2.840.114 350.1.13.10 4.2.7.2.686 [id number] [id number] [facility] 2021-01-17 09:30:00 2021-01-17 11:11:00 Surgery Yoel Gupta [facility] Ethel 1.2840.114 350.1.13.10 4.2.7.2.686 [id number] [id number] [facility] 2021-01-16 15:47:38 2021-01-16 20:47:43 Office Visit Fish Raisa Dela Cruz [facility] Office Building One 1.114 350.1.13.10 4.2.7.2.686 [id number] [id number] [facility] 2021-01-16 16:00:00 2021-01-16 16:00:00 Outpatient R RAISA WHITTEN [facility] [id number] [facility] 2021-01-11 00:00:00 2021-01-11 00:00:00 Orders Only Doctor Unassigned, [place] [facility] 1.0.114 350.1.13.10 4.2.7.2.686 [id number] [id number] [facility] 2021-01-07 09:33:00 2021-01-07 11:50:00 Emergency Ada Tomlinson [facility] 1.840.114 350.1.13.10 4.2.7.2.686 [id number] [id number] [facility] 2021-01-07 00:00:00 2021-01-07 00:00:00 Orders Only Doctor Unassigned, [place] [facility] 1.840.114 350.1.13.10 4.2.7.2.686 [id number] [id number] [facility] 2021-01-02 00:00:00 2021-01-02 00:00:00 Telephone Raisa Whitten [facility] Office Building One 1.114 350.1.13.10 4.2.7.2.686 [id number] 044 [id number] [facility] 2020-12-30 00:00:00 2020-12-30 00:00:00 Dong Thomas [facility] Office Building One 1.114 350.1.13.10 4.2.7.2.686 [id number] 044 [id number] [facility] 2020-12-27 08:37:04 2020-12-27 23:59:00 Hospital Javier Varsha Acosta [facility] 1.114 350.1.13.10 4.2.7.2.686 [id number] [facility] 2020-12-27 00:00:00 2020-12-27 00:00:00 [id number] 2020-12-24 00:00:00 2020-12-24 00:00:00 [facility] [id number] [facility] 2020-12-20 15:00:00 2020-12-20 15:14:22 Outpatient RYAN NANCE [facility] [id number] [facility] 2020-12-20 14:05:36 2020-12-20 15:14:22 Office Visit Ryan Grullon [facility] 1.114 350.1.13.10 4.2.7.2.686 [id number] [facility] 2020-12-20 15:00:00 2020-12-20 15:00:00 Outpatient RYAN NANCE [facility] [id number] [facility] 2020-12-20 00:00:00 2020-12-20 00:00:00 Orders Only Doctor Unassigned, [place] [facility] 1.114 350.1.13.10 4.2.7.2.686 [id number] [facility] 2020-12-18 07:59:34 2020-12-18 08:19:34 Gaggerman Visit Lab, Adc Fam Pob I Raisa Whitten [facility] Office Building One 1.2840.114 350.1.13.10 4.2.7.2.686 [id number] 044 [id number] [facility] 2020-12-18 08:00:00 2020-12-18 08:00:00 Outpatient RAISA ONEILL [facility] [id number] [facility] 2020-12-17 00:00:00 2020-12-17 00:00:00 Outpatient Finn [facility] [id number] [facility] 2020-12-12 00:00:00 2020-12-12 00:00:00 Telephone ShenamosheMaynor [facility] Office Building One 1.840.114 350.1.13.10 4.2.7.2.686 [id number] 044 [id number] [facility] 2020-12-10 09:53:14 2020-12-10 23:59:00 Hospital Encounter Varsha Acosta [facility] 1.2.840.114 350.1.13.10 4.2.7.2.686 [id number] [facility] 2020-12-10 09:45:14 2020-12-10 10:00:14 Gaggerman Visit Annette, Mario Lab Main Varsha Acosta [facility] Building 1.2840.114 350.1.13.10 4.2.7.2.686 [id number] [facility] 2020-12-10 10:00:00 2020-12-10 10:00:00 [facility] [id number] [facility] 2020-12-09 13:45:53 2020-12-09 14:05:53 Imm/Inj Visit Nurse, [facility] Fam Raisa Cameron [facility] Office Building One 1.840.114 350.1.13.10 4.2.7.2.686 [id number] 044 [id number] [facility] 2020-12-09 14:00:00 2020-12-09 14:00:00 Outpatient R RAISA WHITTEN [facility] [id number] [facility] 2020-12-09 00:00:00 2020-12-09 00:00:00 Refill Coleman Ely [facility] Office Building One 1.840.114 350.1.13.10 4.2.7.2.686 [id number] 044 [id number] [facility] 2020-12-06 00:00:00 2020-12-06 00:00:00 Case Management Dong Jean Baptiste [facility] Office Building One 1.840.114 350.1.13.10 4.2.7.2.686 [id number] 044 [id number] [facility] 2020-11-28 11:02:11 2020-11-28 11:58:22 Office Visit Deepa Osborne [facility] Building 1.840.114 350.1.13.10 4.2.7.2.686 [id number] [id number] [facility] 2020-11-28 11:00:00 2020-11-28 11:00:00 Outpatient R DEEPA OSBORNE SHINJAdam [facility] [id number] [facility] 2020-11-25 00:00:00 2020-11-25 00:00:00 Telephone Quirino Ji [facility] Building 1.840.114 350.1.13.10 4.2.7.2.686 [id number] 059 [id number] [facility] 2020-11-25 00:00:00 2020-11-25 00:00:00 Refill Daphne Wonfamilia Lanie [facility] Office Building One 1.2.840.114 350.1.13.10 4.2.7.2.686 [id number] 044 [id number] [facility] 2020-11-19 00:00:00 2020-11-19 00:00:00 Telephone Quirino Ji [facility] nal Building 1.2.840.114 350.1.13.10 4.2.7.2.686 [id number] 059 [id number] [facility] 2020-11-18 00:00:00 2020-11-18 00:00:00 Telephone Raisa Whitten [facility] Office Building One 1.2.840.114 350.1.13.10 4.2.7.2.686 [id number] 044 [id number] [facility] 2020-11-18 00:00:00 2020-11-18 00:00:00 Telephone DaphneJeffreyfamilia Lanie [facility] Office Building One 1.2.840.114 350.1.13.10 4.2.7.2.686 [id number] 044 [id number] [facility] 2020-11-15 22:04:00 2020-11-16 02:03:00 Emergency Marc Mishra [facility] 1.2.840.114 350.1.13.10 4.2.7.2.686 [id number] [id number] [facility] 2020-11-15 00:00:00 2020-11-15 00:00:00 Refill RuthJeffrey huitronbeccajeremy Dela Cruz [facility] Office Building One 1.2.840.114 350.1.13.10 4.2.7.2.686 [id number] 044 [id number] [facility] 2020-11-14 00:00:00 2020-11-14 00:00:00 Telephone Raisa Whitten [facility] Office Building One 1.840.114 350.1.13.10 4.2.7.2.686 [id number] 044 [id number] [facility] 2020-11-11 09:00:00 2020-11-11 09:00:00 Outpatient R RAISA WHITTEN [facility] [id number] [facility] 2020-11-11 08:43:13 2020-11-11 08:54:35 Gaggerman Visit Lab, Adc [facility] Pob I Raisa Whitten [facility] Office Building One 1.840.114 350.1.13.10 4.2.7.2.686 [id number] 044 [id number] [facility] 2020-11-08 13:32:59 2020-11-08 14:27:30 Office Visit Raisa Whitten [facility] Office Building One 1.840.114 350.1.13.10 4.2.7.2.686 [id number] [id number] [facility] 2020-11-08 14:00:00 2020-11-08 14:00:00 Outpatient R RAISA WHITTEN [facility] [id number] [facility] 2020-10-29 00:00:00 2020-10-29 00:00:00 Dong Thomas [facility] Office Building One 1.840.114 350.1.13.10 4.2.7.2.686 [id number] [facility] 2020-10-22 13:10:00 2020-10-22 13:10:00 Outpatient AASHISH MORALES [facility] [id number] [facility] 2020-10-01 16:20:00 2020-10-01 16:20:00 Outpatient AASHISH MORALES [facility] [id number] [facility] 2020-09-11 13:23:09 2020-09-11 14:21:02 Office Visit Demi Sidmonica [facility] Building 1.284.114 350.1.13.10 4.2.7.2.686 [id number] [facility] 2020-09-11 13:40:00 2020-09-11 13:40:00 Outpatient R SID JIFORMERLY [facility] [id number] [facility] 2020-09-05 00:00:00 2020-09-05 00:00:00 Refill Salty [facility] Building 1.840.114 350.1.13.10 4.2.7.2.686 [id number] [facility] 2020-08-20 13:40:00 2020-08-20 13:40:00 Outpatient R SID JIFORMERLY [facility] [id number] [facility] 2020-08-08 00:00:00 2020-08-08 00:00:00 Orders Only Doctor Unassigned, [place] [facility] 1.84.114 350.1.13.10 4.2.7.2.686 [id number] [id number] [facility] 2020-08-05 00:00:00 2020-08-05 00:00:00 Refill Dong Jean Baptiste [facility] Office Building One 1.84.114 350.1.13.10 4.2.7.2.686 [id number] 044 [id number] [facility] 2020-07-24 00:00:00 2020-07-24 00:00:00 Refill Vance Pond [facility] Building 1.840.114 350.1.13.10 4.2.7.2.686 [id number] 044 [id number] [facility] 2020-07-15 00:00:00 2020-07-15 00:00:00 Vance Belle RUST Viola Hurd [facility] 1.84.114 350.1.13.10 4.2.7.2.686 [id number] 044 [id number] [facility] 2020-07-12 08:08:14 2020-07-12 08:23:14 Office Visit Makenna Cloud [facility] 1..114 350.1.13.10 4.2.7.2.686 [id number] [facility] 2020-07-12 08:00:00 2020-07-12 08:00:00 Outpatient R MAKENNA CLOUD [facility] [id number] [facility] 2020-07-01 00:00:00 2020-07-01 00:00:00 Orders Only Doctor Unassigned, [place] [facility] 1.114 350.1.13.10 4.2.7.2.686 [id number] [id number] [facility] 2020-06-20 00:00:00 2020-06-20 00:00:00 Orders Only Doctor Unassigned, [place] [facility] 1.2.114 350.1.13.10 4.2.7.2.686 [id number] [facility] 2020-06-06 14:00:00 2020-06-06 14:00:00 Outpatient R [facility] [id number] [facility] 2020-05-28 13:42:01 2020-06-03 16:36:46 Office Visit Coleman Ely [facility] 1..114 350.1.13.10 4.2.7.2.686 [id number] [facility] 2020-06-03 14:15:00 2020-06-03 14:15:00 Outpatient R [facility] [id number] [facility] 2020-06-02 00:00:00 2020-06-02 00:00:00 Case Management DaphneJeffreybeccajeremy Dela Cruz [facility] Office Building One 1. 350.1.13.10 4.2.7.2.686 [id number] [id number] [facility] 2020-05-31 08:00:00 2020-05-31 08:00:00 Outpatient R MARIA D BARAJAS [facility] [id number] [facility] 2020-05-31 07:28:20 2020-05-31 07:43:20 Office Visit Maria D Barajas [facility] 1.114 350.1.13.10 4.2.7.2.686 [id number] [facility] 2020-05-28 14:15:00 2020-05-28 14:15:00 Outpatient R COLEMAN ELY [facility] [id number] [facility] 2020-05-28 08:42:21 2020-05-28 08:49:58 Gaggerman Visit Lab, Adc Fam Pob I Daphne Shonjeremy [facility] Office Building One 1. 350.1.13.10 4.2.7.2.686 [id number] 044 [id number] [facility] 2020-05-28 00:00:00 2020-05-28 00:00:00 Letter (Out) Coleman Ely [facility] 1.114 350.1.13.10 4.2.7.2.686 [id number] [facility] 2020-05-27 14:25:24 2020-05-27 15:30:04 Office Visit Dong Jean Baptiste [facility] Office Building One 1.114 350.1.13.10 4.2.7.2.686 [id number] 044 [id number] [facility] 2020-05-27 14:30:00 2020-05-27 14:30:00 Outpatient R DONG JEAN BAPTISTE [facility] [id number] [facility] 2020-05-23 11:24:44 2020-05-23 23:59:00 Hospital Encounter Deepa Osborne [facility] 1.2.840.114 350.1.13.10 4.2.7.2.686 [id number] [facility] 2020-05-23 10:14:55 2020-05-23 10:34:25 Office Visit Alice Osbornevaadam [facility] Professio nal Building 1.2.840.114 350.1.13.10 4.2.7.2.686 [id number] [facility] 2020-05-23 10:20:00 2020-05-23 10:20:00 Outpatient R DEEPA OSBORNE [facility] [id number] [facility] 2020-05-21 08:45:00 2020-05-21 08:45:00 Outpatient R FRANC CASTILLO [facility] [id number] [facility] 2020-05-14 12:52:45 2020-05-14 13:37:45 Ancillary Visit Heidi Mohamud Deborah L [facility] 1.2.840.114 350.1.13.10 4.2.7.2.686 [id number] [facility] 2020-05-14 12:53:01 2020-05-14 13:08:01 Office Visit Yovany Chu [facility] 1.2.840.114 350.1.13.10 4.2.7.2.686 [id number] [facility] 2020-05-14 13:00:00 2020-05-14 13:00:00 Outpatient R TIFFANY JOHANSEN [facility] [id number] [facility] 2020-05-14 00:00:00 2020-05-14 00:00:00 Orders Only Doctor Unassigned, [place] [facility] 1.2840.114 350.1.13.10 4.2.7.2.686 [id number] [facility] 2020-04-30 09:00:00 2020-04-30 09:00:00 Outpatient R ROSECASTILLO PETERS [facility] [id number] [facility] 2020-04-26 11:23:51 2020-04-26 11:24:00 Office Visit Vance Pond [facility] 1.2.840.114 350.1.13.10 4.2.7.2.686 [id number] 044 [id number] [facility] 2020-04-26 09:54:29 2020-04-26 11:22:38 Office Visit Joseeduardo [facility] 1.2840.114 350.1.13.10 4.2.7.2.686 [id number] [id number] [facility] 2020-04-26 10:20:00 2020-04-26 10:20:00 Outpatient R VANCE POND [facility] [id number] [facility] 2020-04-19 09:17:41 2020-04-19 23:59:00 [facility] 1.2840.114 350.1.13.10 4.2.7.2.686 [id number] [facility] 2020-04-19 08:04:04 2020-04-19 09:16:17 Office Visit Maria D Barajas [facility] 1.2840.114 350.1.13.10 4.2.7.2.686 [id number] [facility] 2020-04-19 08:30:00 2020-04-19 08:30:00 [facility] [id number] 2020-04-18 00:00:00 2020-04-18 00:00:00 Refill Vance oPnd [facility] 1.20.114 350.1.13.10 4.2.7.2.686 [id number] [facility] 2020-04-18 00:00:00 2020-04-18 00:00:00 Refill Vance Pond [facility] Building 1.20.114 350.1.13.10 4.2.7.2.686 [id number] 044 [id number] [facility] 2020-04-08 14:17:17 2020-04-08 14:37:17 Telemedici ne Visit Vance Pond [facility] 1.2.114 350.1.13.10 4.2.7.2.686 [id number] [facility] 2020-04-08 14:15:00 2020-04-08 14:15:00 Outpatient R VANCE POND [facility] [id number] [facility] 2020-04-05 00:00:00 2020-04-05 00:00:00 Telephone Vance Pond [facility] 1..114 350.1.13.10 4.2.7.2.686 [id number] 044 [id number] [facility] 2020-04-02 00:00:00 2020-04-02 00:00:00 Telephone Vance Pond [facility] 1.2.114 350.1.13.10 4.2.7.2.686 [id number] 044 [id number] [facility] 2020-03-21 00:00:00 2020-03-21 00:00:00 Orders Only Doctor Unassigned, [place] [facility] 1.2.114 350.1.13.10 4.2.7.2.686 [id number] [facility] 2020-03-15 10:39:44 2020-03-15 11:57:23 [facility] 1.2.840.114 350.1.13.10 4.2.7.2.686 [id number] [facility] 2020-03-15 11:00:00 2020-03-15 11:00:00 Outpatient R DEEPA OSBORNE SHIWAN [facility] [id number] [facility] 2020-03-14 08:40:00 2020-03-14 08:40:00 Outpatient R DEEPA OSBORNE SHIWAN [facility] [id number] [facility] 2020-03-06 00:00:00 2020-03-06 00:00:00 Telephone Vance Pond [facility] Building 1.2.840.114 350.1.13.10 4.2.7.2.686 [id number] 044 [id number] [facility] 2020-03-01 00:00:00 2020-03-01 00:00:00 Orders Only Doctor Unassigned, [place] [facility] 1.2.840.114 350.1.13.10 4.2.7.2.686 [id number] [facility] 2020-02-29 09:40:00 2020-02-29 09:40:00 Outpatient R DEEPA OSBORNE [facility]IWAN [facility] [id number] [facility] 2020-02-15 10:40:00 2020-02-15 10:40:00 Outpatient R DEEPA OSBORNE SHI[facility]AN [facility] [id number] [facility] 2020-02-09 15:00:00 2020-02-09 15:00:00 Outpatient R VANCE POND [facility] [id number] [facility] 2020-02-01 13:15:00 2020-02-01 13:15:00 Outpatient R ANICETO DE [facility] [id number] [facility] 2020-01-25 11:05:41 2020-01-25 11:20:41 Gaggerman Visit 2, Adc Lab Vance Pond [facility] 1..114 350.1.13.10 4.2.7.2.686 [id number] [facility] 2020-01-25 09:48:23 2020-01-25 10:45:01 Office Visit Vance Pond [facility] 1.2.114 350.1.13.10 4.2.7.2.686 [id number] [id number] [facility] 2020-01-25 10:00:00 2020-01-25 10:00:00 Outpatient R ANNABELLEHOMERNIKKY VANCE [facility] [id number] [facility] 2020-01-25 00:00:00 2020-01-25 00:00:00 Orders Only Doctor Unassigned, [place] [facility] 1..114 350.1.13.10 4.2.7.2.686 [id number] [facility] 2020-01-24 15:20:00 2020-01-24 15:20:00 Outpatient R ANNABELLEMAHESH VANCE [facility] [id number] [facility] 2020-01-16 00:00:00 2020-01-16 00:00:00 Milo Dixon [facility] 1..114 350.1.13.10 4.2.7.2.686 [id number] [facility] 2019-12-28 00:00:00 2019-12-28 00:00:00 Telephone Vance Pond [facility] Building 1.2.114 350.1.13.10 4.2.7.2.686 [id number] 044 [id number] [facility] 2019-11-01 06:57:02 2019-12-06 22:07:43 Telemedici ne Visit Vance Pond [facility] Building 1.2.840.114 350.1.13.10 4.2.7.2.686 [id number] 044 [id number] [facility] 2019-12-05 07:11:39 2019-12-05 10:53:08 Telemedici ne Visit Vance Pond [facility] Building 1.840.114 350.1.13.10 4.2.7.2.686 [id number] [id number] [facility] 2019-12-05 08:20:00 2019-12-05 08:20:00 Outpatient R ANNABELELVANCE ARAGON [facility] [id number] [facility] 2019-11-09 14:15:00 2019-11-09 14:15:00 Outpatient R ANICETO DE [facility] [id number] [facility] 2019-11-08 00:00:00 2019-11-08 00:00:00 Refill Salty [facility] Building 1.840.114 350.1.13.10 4.2.7.2.686 [id number] [facility] 2019-11-01 07:20:00 2019-11-01 07:20:00 Outpatient R SALTY [facility] [id number] [facility] 2019-10-23 00:00:00 2019-10-23 00:00:00 Refill Maynor Camara [facility] Office Building One 1..840.114 350.1.13.10 4.2.7.2.686 [id number] [facility] 2019-10-12 14:00:00 2019-10-12 14:00:00 Outpatient R LENAKEIRA FRANCESCO HUTCHISON [facility] [id number] [facility] 2019-10-06 00:00:00 2019-10-06 00:00:00 Refill Loly Huerta [facility] 1.2.840.114 350.1.13.10 4.2.7.2.686 [id number] [facility] 2019-10-06 00:00:00 2019-10-06 00:00:00 Refill [facility] Office Building One 1.2.840.114 350.1.13.10 4.2.7.2.686 [id number] [facility] 2019-10-06 00:00:00 2019-10-06 00:00:00 Refill Ginger Ruffin [facility] 1.2.840.114 350.1.13.10 4.2.7.2.686 [id number] [facility] 2019-09-28 09:21:27 2019-09-28 10:01:27 Office Visit Vance Pond [facility] nal Building 1.2.840.114 350.1.13.10 4.2.7.2.686 [id number] [facility] 2019-09-28 10:00:00 2019-09-28 10:00:00 Outpatient R [facility] [id number] [facility] 2019-09-27 00:00:00 2019-09-27 00:00:00 Orders Only Doctor Unassigned, [place] [facility] 1.2.840.114 350.1.13.10 4.2.7.2.686 [id number] [facility] 2019-09-14 00:00:00 2019-09-14 00:00:00 Transition of Care Diana Sherwood 1.2.840.114 350.1.13.10 4.2.7.2.686 [id number] [facility] 2019-09-13 00:00:00 2019-09-13 00:00:00 Transition of Care Diana Sherwood 1.2.840.114 350.1.13.10 4.2.7.2.686 [id number] [facility] 2019-09-12 12:42:01 2019-09-12 17:04:00 Emergency Ronit Enrique [facility] 1.2.840.114 350.1.13.10 4.2.7.2.686 [id number] [facility] 2019-09-12 12:42:01 2019-09-12 17:04:00 Emergency X RONIT ENRIQUE RUST ERT [id number] [facility] 2019-09-12 13:00:00 2019-09-12 13:40:00 Office Visit Vance Pond [facility] 1.2.840.114 350.1.13.10 4.2.7.2.686 [id number] [facility] 2019-09-12 13:06:48 2019-09-12 13:14:21 Office Visit Vance Pond [facility] 1.2.840.114 350.1.13.10 4.2.7.2.686 [id number] [facility] 2019-09-12 13:00:00 2019-09-12 13:00:00 Outpatient R [facility] [id number] [facility] 2019-09-12 00:00:00 2019-09-12 00:00:00 Orders Only Doctor Unassigned, [place] [facility] 1.2.840.114 350.1.13.10 4.2.7.2.686 [id number] [id number] [facility] 2019-08-24 07:42:43 2019-08-24 09:25:44 Office Visit [facility] 1.2.840.114 350.1.13.10 4.2.7.2.686 [id number] [facility] 2019-07-18 13:23:31 2019-07-18 23:59:00 Outpatient R [facility] [id number] [facility] 2019-07-11 00:00:00 2019-07-11 00:00:00 Pre Visit Outreach Maynor Camara [facility] 1.2.840.114 350.1.13.10 4.2.7.2.686 [id number] 365 [id number] [facility] 2019-04-24 00:00:00 2019-04-24 00:00:00 Telephone [place] [facility] 1.2.840.114 350.1.13.10 4.2.7.2.686 [id number] 365 [id number] [facility] 2019-04-23 13:46:56 2019-04-23 18:36:00 Emergency Ary [facility] 1.2.840.114 350.1.13.10 4.2.7.2.686 [id number] [facility] 2019-04-05 00:00:00 2019-04-05 00:00:00 Refill Mylene Martin [facility] 1.2.840.114 350.1.13.10 4.2.7.2.686 [id number] 365 [id number] [facility] 2019-04-05 00:00:00 2019-04-05 00:00:00 [facility] 1.2.840.114 350.1.13.10 4.2.7.2.686 [id number] 365 [id number] [facility] 2019-04-05 00:00:00 2019-04-05 00:00:00 Refill Veronica [facility] 1.2.840.114 350.1.13.10 4.2.7.2.686 [id number] 365 [id number] [facility] 2019-03-27 00:00:00 2019-03-27 00:00:00 Refill Veronica [facility] 1.2.840.114 350.1.13.10 4.2.7.2.686 [id number] 365 [id number] [facility] 2019-03-24 10:24:40 2019-03-24 10:39:40 [place] Visit Lab, [facility] Deanna [facility] 1.2.840.114 350.1.13.10 4.2.7.2.686 [id number] [facility] 2019-03-24 09:15:24 2019-03-24 10:10:09 Office Visit Deanna [facility] 1.2.840.114 350.1.13.10 4.2.7.2.686 [id number] [facility] 2019-03-24 00:00:00 2019-03-24 00:00:00 Orders Only Doctor Unassigned, [place] [facility] 1.2.840.114 350.1.13.10 4.2.7.2.686 [id number] [id number] [facility] 2019-03-22 00:00:00 2019-03-22 00:00:00 [facility] 1.2.840.114 350.1.13.10 4.2.7.2.686 [id number] [facility] Results Test Description Test Time Test Comments Results Result Co mments Source [facility] WITH [id number] 15:18:16* Test Item Value Reference Range Interpretation Comme nts WBC (test code = 6690-2) 4.11 4.20-10.70 L RBC (test code = 789-8) 4.65 4.26-5.52 HGB (test code = 718-7) 14.2 g/dL 12.2-16.4 HCT (test code = 4544-3) 43.2 % 38.4-49.3 MCV (test code = 787-2) 92.9 fL 81.7-95.6 MCH (test code = 785-6) 30.5 pg 26.1-32.7 MCHC (test code = 786-4) 32.9 g/dL 31.2-35.0 RDW-SD (test code = 39911-9) 48.6 fL 38.5-51.6 RDW-CV (test code = 788-0) 14.6 % 12.1-15.4 PLT (test code = 777-3) 269 150-328 MPV (test code = 71268-3) 8.3 fL 9.8-13.0 L NRBC/100 WBC (test code = 2589589641) 0.0 0.0-10.0 NRBC x10^3 (test code = 6165650967) See_Comment [Automated messa ge] The system which generated this result transmitted reference range: 10*3/?L. The reference range was not used to interpret this result as normal/abnormal. GRAN MAT (NEUT) % (test code = 770-8) 56.3 % IMM GRAN % (test code = 3885130855) 0.20 % LYMPH % (test code = 736-9) 29.9 % MONO % (test code = 5905-5) 10.0 % EOS % (test code = 713-8) 3.4 % BASO % (test code = 706-2) 0.2 % GRAN MAT x10^3(ANC) (test code = 3885478273) 2.31 10*3/uL 1.99-6.95 IMM GRAN x10^3 (test code = 7557926145) 0.00-0.06 LYMPH x10^3 (test code = 731-0) 1.23 10*3/uL 1.09-3.23 MONO x10^3 (test code = 742-7) 0.41 10*3/uL 0.36-1.02 EOS x10^3 (test code = 711-2) 0.14 10*3/uL 0.06-0.53 BASO x10^3 (test code = 704-7) 0.01-0.09 Lab Interpretation (test code = 23132-9) Abnormal [facility] WITH [id number] 14:51:38* Test Item Value Reference Range Interpretation Comme nts WBC (test code = 6690-2) 7.04 See_Comment [Automated messa ge] The system which generated this result transmitted reference range: 4.20 - 10.70 10*3/?L. The reference range was not used to interpret this result as normal/abnormal. RBC (test code = 789-8) 4.28 See_Comment [Automated messa ge] The system which generated this result transmitted reference range: 4.26 - 5.52 10*6/?L. The reference range was not used to interpret this result as normal/abnormal. HGB (test code = 718-7) 13.8 g/dL 12.2-16.4 HCT (test code = 4544-3) 41.7 % 38.4-49.3 MCV (test code = 787-2) 97.4 fL 81.7-95.6 H MCH (test code = 785-6) 32.2 pg 26.1-32.7 MCHC (test code = 786-4) 33.1 g/dL 31.2-35.0 RDW-SD (test code = 34914-4) 52.3 fL 38.5-51.6 H RDW-CV (test code = 788-0) 14.6 % 12.1-15.4 PLT (test code = 777-3) 252 See_Comment [Automated messa ge] The system which generated this result transmitted reference range: 150 - 328 10*3/?L. The reference range was not used to interpret this result as normal/abnormal. MPV (test code = 95133-3) 8.5 fL 9.8-13.0 L NRBC/100 WBC (test code = 0792370688) 0.0 See_Comment [Automated me ssage] The system which generated this result transmitted reference range: 0.0 - 10.0 /100 WBCs. The reference range was not used to interpret this result as normal/abnormal. NRBC x10^3 (test code = 2001728557) See_Comment [Automated messa ge] The system which generated this result transmitted reference range: 10*3/?L. The reference range was not used to interpret this result as normal/abnormal. GRAN MAT (NEUT) % (test code = 770-8) 64.6 % IMM GRAN % (test code = 1140239859) 0.40 % LYMPH % (test code = 736-9) 21.4 % MONO % (test code = 5905-5) 9.5 % EOS % (test code = 713-8) 3.7 % BASO % (test code = 706-2) 0.4 % GRAN MAT x10^3(ANC) (test code = 8395937741) 4.54 10*3/uL 1.99-6.95 IMM GRAN x10^3 (test code = 7323042307) 0.03 10*3/uL 0.00-0.06 LYMPH x10^3 (test code = 731-0) 1.51 10*3/uL 1.09-3.23 MONO x10^3 (test code = 742-7) 0.67 10*3/uL 0.36-1.02 EOS x10^3 (test code = 711-2) 0.26 10*3/uL 0.06-0.53 BASO x10^3 (test code = 704-7) 0.03 10*3/uL 0.01-0.09 Lab Interpretation (test code = 90675-4) Abnormal [facility] GLUCOSE (AUTOMATED)2023-08-05 16:53:58* Test Item Value Reference Range Interpretation Comme nts POCT GLU (test code = 6072215681) 93 mg/dL 70-110 Lab Interpretation (test cod e = 16413-7) Normal [facility] WITH [id number] 15:34:20* Test Item Value Reference Range Interpretation Comme nts WBC (test code = 6690-2) 3.24 See_Comment L [Automated message] The system which generated this result transmitted reference range: 4.20 - 10.70 10*3/?L. The reference range was not used to interpret this result as normal/abnormal. RBC (test code = 789-8) 3.92 See_Comment L [Automated message] The system which generated this result transmitted reference range: 4.26 - 5.52 10*6/?L. The reference range was not used to interpret this result as normal/abnormal. HGB (test code = 718-7) 13.2 g/dL 12.2-16.4 HCT (test code = 4544-3) 37.9 % 38.4-49.3 L MCV (test code = 787-2) 96.7 fL 81.7-95.6 H MCH (test code = 785-6) 33.7 pg 26.1-32.7 H MCHC (test code = 786-4) 34.8 g/dL 31.2-35.0 RDW-SD (test code = 09457-8) 55.9 fL 38.5-51.6 H RDW-CV (test code = 788-0) 15.6 % 12.1-15.4 H PLT (test code = 777-3) 186 See_Comment [Automated message] The system which generated this result transmitted reference range: 150 - 328 10*3/?L. The reference range was not used to interpret this result as normal/abnormal. MPV (test code = 05591-8) 8.8 fL 9.8-13.0 L NRBC/100 WBC (test code = 2468564673) 0.0 See_Comment [Automated message] The system which generated this result transmitted reference range: 0.0 - 10.0 /100 WBCs. The reference range was not used to interpret this result as normal/abnormal. NRBC x10^3 (test code = 5824721884) See_Comment [Automated message] The system which generated this result transmitted reference range: 10*3/?L. The reference range was not used to interpret this result as normal/abnormal. GRAN MAT (NEUT) % (test code = 770-8) 72.6 % IMM GRAN % (test code = 8802524811) 0.30 % LYMPH % (test code = 736-9) 18.2 % MONO % (test code = 5905-5) 6.8 % EOS % (test code = 713-8) 1.5 % BASO % (test code = 706-2) 0.6 % GRAN MAT x10^3(ANC) (test code = 3838179536) 2.35 10*3/uL 1.99-6.95 IMM GRAN x10^3 (test code = 9853073456) 0.00-0.06 LYMPH x10^3 (test code = 731-0) 0.59 10*3/uL 1.09-3.23 L MONO x10^3 (test code = 742-7) 0.22 10*3/uL 0.36-1.02 L EOS x10^3 (test code = 711-2) 0.05 10*3/uL 0.06-0.53 L BASO x10^3 (test code = 704-7) 0.01-0.09 BANDS (test code = 1404569688) MARKED INCREASED A TOXIC CHANGES (test code = 803-7) Present A Lab Interpretation (test code = 56458-4) [id number] 14:37:07* Test Item Value Reference Range Interpretation Comme nts TROPONIN I (test code = 4416955037) 0.008 ng/mL <=0.034 MARCUS (test code = MARCUS) Reference (Normal) Range (defined by the 99th percentile reference limit): <= 0.034 ng/mL Note: Cardiac troponin begins to rise 3-4 hours after the onset of ischemia. Repeat in 4-6 hours if the sample was drawn within 3-4 hours of the onset of the symptom and found normal. Diagnosis of myocardial injury is made with acute changes in cTn concentrations with at least one serial sample above the 99th percentile upper reference limit (URL), taken together with the patient's clinical presentation. Biotin has been reported to cause a negative bias, interpret results relative to patient's use of biotin. Lab Interpretation (test code = 87422-8) [facility] 14:25:47* Test Item Value Reference Range Interpretation Comme nts MAGNESIUM (test code = 1860462567) 1.8 mg/dL 1.7-2.4 Lab Interpretation (test cod e = 90996-4) [facility] (54913)2023-07-03 14:25:27* Test Item Value Reference Range Interpretation Comme nts NA (test code = 2871667512) 132 mmol/L 135-145 L K (test code = 0222113710) 3.5 mmol/L 3.5-5.0 CL (test code = 1028895109) 100 mmol/L 98-108 CO2 TOTAL (test code = 0340448727) 27 mmol/L 23-31 AGAP (test code = 2352779977) 5 2-16 BUN (test code = 2772384138) 16 mg/dL 7-23 GLUCOSE (test code = 9502903798) 107 mg/dL 70-110 CREATININE (test code = 2149763258) 0.83 mg/dL 0.60-1.25 TOTAL BILI (test code = 0868279999) 0.9 mg/dL 0.1-1.1 CALCIUM (test code = 0236899670) 8.3 mg/dL 8.6-10.6 L T PROTEIN (test code = 0365734563) 6.3 g/dL 6.3-8.2 ALBUMIN (test code = 3400511700) 3.2 g/dL 3.5-5.0 L ALK PHOS (test code = 8867966597) 99 U/L 34-122 ALTv (test code = 1742-6) 18 U/L 5-50 AST(SGOT) (test code = 8776664846) 26 U/L 13-40 eGFR (test code = 18715-3) 87.4 mL/min/1.73m2 CKD-EPI eGFR (2020). Assuming creatinine has been stable day-to-day for at least three months, the eGFR indicates Category G2 (60 - 89 mL/min/1.73 m2) Lab Interpretation (test code = 84558-3) [facility] 14:25:06* Test Item Value Reference Range Interpretation Comme nts LIPASE (test code = 6504387254) 49 U/L 0-220 Lab Interpretation (test cod e = 47199-3) [facility]2023-05-26 13:28:23* Test Item Value Reference Range Interpretation Comme nts POCT GLU (test code = 8188940757) 99 mg/dL 70-110 Lab Interpretation (test cod e = 25045-8) [facility] (02844)2023-05-26 12:24:53* Test Item Value Reference Range Interpretation Comme nts NA (test code = 7196400739) 134 mmol/L 135-145 L K (test code = 5891713847) 4.1 mmol/L 3.5-5.0 CL (test code = 1140570461) 102 mmol/L 98-108 CO2 TOTAL (test code = 1485161615) 22 mmol/L 23-31 L AGAP (test code = 1017435249) 10 2-16 BUN (test code = 3042831486) 18 mg/dL 7-23 GLUCOSE (test code = 0203058635) 100 mg/dL 70-110 CREATININE (test code = 5531492587) 0.74 mg/dL 0.60-1.25 TOTAL BILI (test code = 3007622467) 0.8 mg/dL 0.1-1.1 CALCIUM (test code = 0321151916) 8.3 mg/dL 8.6-10.6 L T PROTEIN (test code = 1602015387) 6.4 g/dL 6.3-8.2 ALBUMIN (test code = 7766943379) 3.2 g/dL 3.5-5.0 L ALK PHOS (test code = 0446795962) 100 U/L 34-122 ALTv (test code = 1742-6) 22 U/L 5-50 AST(SGOT) (test code = 2400575813) 35 U/L 13-40 eGFR (test code = 2876786468) 101.3 mL/min/1.73m2 MARCUS (test code = MARCUS) Association of Glomerular Filtration Rate (GFR) and Staging of Kidney Disease* + --+ --+ ------+| GFR (mL/min/1.73 m2) ?| With Kidney Damage ?| ?Without Kidney Damage+ --------+ --------+ +| ?>90 ?| ?Stage one ?| ? Normal ?+ ---+ ---+ -------+| ?60-89 ?| ?Stage two ?| ? Decreased GFR ? + --+ --+ ------+| ?30-59 ?| ?Stage three ?| ? Stage three ? + --+ --+ ------+| ?15-29 ?| ?Stage four ? | ? Stage four ?+ ---+ ---+ -------+| ?<15 (or dialysis) ? ?| ?Stage five ? | ? Stage five ?+ ---+ ---+ -------+ *Each stage assumes the associated GFR level has been in effect for at least three months. ?Stages 1 to 5, with or without kidney disease, indicate chronic kidney disease. Notes: Determination of stages one and two (with eGFR >59mL/min/1.73 m2) requires estimation of kidney damage for at least three months as defined by structural or functional abnormalities of the kidney, manifested by either:Pathological abnormalities or Markers of kidney damage (including abnormalities in the composition of the blood or urine or abnormalities in imaging tests). Lab Interpretation (test code = 60360-3) Abnormal [facility] WITH [id number] 10:19:16* Test Item Value Reference Range Interpretation Comme nts WBC (test code = 6690-2) 5.78 See_Comment [Automated Fast [employer]] The system which generated this result transmitted reference range: 4.20 - 10.70 10*3/?L. The reference range was not used to interpret this result as normal/abnormal. RBC (test code = 789-8) 4.18 See_Comment L [Automated Fast Society] The system which generated this result transmitted reference range: 4.26 - 5.52 10*6/?L. The reference range was not used to interpret this result as normal/abnormal. HGB (test code = 718-7) 13.8 g/dL 12.2-16.4 HCT (test code = 4544-3) 40.7 % 38.4-49.3 MCV (test code = 787-2) 97.4 fL 81.7-95.6 H MCH (test code = 785-6) 33.0 pg 26.1-32.7 H MCHC (test code = 786-4) 33.9 g/dL 31.2-35.0 RDW-SD (test code = 93316-4) 65.1 fL 38.5-51.6 H RDW-CV (test code = 788-0) 18.3 % 12.1-15.4 H PLT (test code = 777-3) 154 See_Comment [Automated messa ge] The system which generated this result transmitted reference range: 150 - 328 10*3/?L. The reference range was not used to interpret this result as normal/abnormal. MPV (test code = 76371-0) 9.0 fL 9.8-13.0 L NRBC/100 WBC (test code = 8914233967) 0.0 See_Comment [Automated Pinion.gg ssage] The system which generated this result transmitted reference range: 0.0 - 10.0 /100 WBCs. The reference range was not used to interpret this result as normal/abnormal. NRBC x10^3 (test code = 0377600866) See_Comment [Automated [place] ge] The system which generated this result transmitted reference range: 10*3/?L. The reference range was not used to interpret this result as normal/abnormal. GRAN MAT (NEUT) % (test code = 770-8) 82.2 % IMM GRAN % (test code = 8931971736) 0.50 % LYMPH % (test code = 736-9) 10.7 % MONO % (test code = 5905-5) 4.3 % EOS % (test code = 713-8) 2.1 % BASO % (test code = 706-2) 0.2 % GRAN MAT x10^3(ANC) (test code = 0358835018) 4.75 10*3/uL 1.99-6.95 IMM GRAN x10^3 (test code = 1399308254) 0.03 10*3/uL 0.00-0.06 LYMPH x10^3 (test code = 731-0) 0.62 10*3/uL 1.09-3.23 L MONO x10^3 (test code = 742-7) 0.25 10*3/uL 0.36-1.02 L EOS x10^3 (test code = 711-2) 0.12 10*3/uL 0.06-0.53 BASO x10^3 (test code = 704-7) 0.01-0.09 Lab Interpretation (test code = 95065-8) Abnormal [facility] GLUCOSE (AUTOMATED)2023-05-26 02:35:41* Test Item Value Reference Range Interpretation Comme nts POCT GLU (test code = 9093337431) 132 mg/dL 70-110 H Lab Interpretation (test cod e = 56316-9) Abnormal [facility] GLUCOSE (AUTOMATED)2023-05-25 21:49:10* Test Item Value Reference Range Interpretation Comme nts POCT GLU (test code = 0249148711) 92 mg/dL 70-110 Lab Interpretation (test cod e = 44817-0) Normal [facility] GLUCOSE (AUTOMATED)2023-05-25 17:02:00* Test Item Value Reference Range Interpretation Comme nts POCT GLU (test code = 1544211160) 123 mg/dL 70-110 H Lab Interpretation (test cod e = 95272-6) Abnormal [facility] GLUCOSE (AUTOMATED)2023-05-25 13:35:23* Test Item Value Reference Range Interpretation Comme nts POCT GLU (test code = 5759549512) 121 mg/dL 70-110 H Lab Interpretation (test cod e = 52471-0) Abnormal [facility] GLUCOSE (AUTOMATED)2023-05-25 02:53:20* Test Item Value Reference Range Interpretation Comme nts POCT GLU (test code = 8242402175) 144 mg/dL 70-110 H Lab Interpretation (test cod e = 84467-6) Abnormal [facility] GLUCOSE (AUTOMATED)2023-05-24 21:46:30* Test Item Value Reference Range Interpretation Comme nts POCT GLU (test code = 2140360198) 87 mg/dL 70-110 Lab Interpretation (test cod e = 60899-3) Normal [facility] GLUCOSE (AUTOMATED)2023-05-24 17:17:18* Test Item Value Reference Range Interpretation Comme nts POCT GLU (test code = 3144946234) 150 mg/dL 70-110 H Lab Interpretation (test cod e = 97948-9) Abnormal [facility] GLUCOSE (AUTOMATED)2023-05-24 13:20:37* Test Item Value Reference Range Interpretation Comme nts POCT GLU (test code = 7536727790) 110 mg/dL 70-110 Lab Interpretation (test cod e = 77550-1) Normal [facility] GLUCOSE (AUTOMATED)2023-05-24 01:18:40* Test Item Value Reference Range Interpretation Comme nts POCT GLU (test code = 2627832454) 108 mg/dL 70-110 Lab Interpretation (test cod e = 89507-6) Normal [facility] GLUCOSE (AUTOMATED)2023-05-23 21:51:30* Test Item Value Reference Range Interpretation Comme nts POCT GLU (test code = 5635820667) 137 mg/dL 70-110 H Lab Interpretation (test cod e = 46470-8) Abnormal [facility] GLUCOSE (AUTOMATED)2023-05-23 16:51:25* Test Item Value Reference Range Interpretation Comme nts POCT GLU (test code = 4097973433) 147 mg/dL 70-110 H Lab Interpretation (test cod e = 90068-2) Abnormal [facility] GLUCOSE (AUTOMATED)2023-05-23 13:09:06* Test Item Value Reference Range Interpretation Comme nts POCT GLU (test code = 3307859667) 96 mg/dL 70-110 Lab Interpretation (test cod e = 06101-0) Normal [facility] GLUCOSE (AUTOMATED)2023-05-23 02:54:58* Test Item Value Reference Range Interpretation Comme nts POCT GLU (test code = 3701684046) 128 mg/dL 70-110 H Lab Interpretation (test cod e = 84125-4) Abnormal [facility] GLUCOSE (AUTOMATED)2023-05-22 17:01:34* Test Item Value Reference Range Interpretation Comme nts POCT GLU (test code = 5008153315) 237 mg/dL 70-110 H Lab Interpretation (test cod e = 32492-1) Abnormal [facility] GLUCOSE (AUTOMATED)2023-05-22 13:17:04* Test Item Value Reference Range Interpretation Comme nts POCT GLU (test code = 1473685018) 147 mg/dL 70-110 H Lab Interpretation (test cod e = 66798-2) Abnormal [facility] GLUCOSE (AUTOMATED)2023-05-22 04:53:05* Test Item Value Reference Range Interpretation Comme nts POCT GLU (test code = 7598682577) 192 mg/dL 70-110 H Lab Interpretation (test cod e = 64081-6) Abnormal [facility] GLUCOSE (AUTOMATED)2023-05-22 01:41:50* Test Item Value Reference Range Interpretation Comme nts POCT GLU (test code = 3522894068) 179 mg/dL 70-110 H Lab Interpretation (test cod e = 53437-4) [facility] 16:50:45* Test Item Value Reference Range Interpretation Comme nts Procalcitonin (test code = 5571016654) 3.22 ng/mL <=0.07 H MARCUS (test code = MARCUS) INTERPRETATION OF PROCALCITONIN RESULTS IN ADULTS >= 18 YEARS OF AGE Initiation and discontinuation of antibiotics on patients with suspected or confirmed Lower Respiratory Tract Infection in Adults >= 18 years of age. + +-------- --------+ + -----+|Procalcitonin |Interpretation ?|Antibiotic ? ? |Considerations ? |ng/mL ? | ?|recommendation | ? + +-------- --------+ + -----+| <0.1 ? | Bacterial ? ? ?| Strongly ? ? ?| ? | ?| infection very | discouraged ? | Overruling: ? | ?| unlikely ? ? ? | ? | ? Clinically unstable ? ? ? + +-------- --------+ + ? High risk for adverse ? ? | <0.25 ?| Bacterial ? ? ?| Discouraged ? | ? outcome ? | ?| infection ? ? ?| ? | ? SEE IMPORTANT NOTE ?| ?| unlikely ? ? ? | ? | ? + +-------- --------+ + -----+| >=0.25 ? ? ? | Bacterial ? ? ?| Encouraged ? ?| ? | ?| infection ? ? ?| ? | ? | ?| likely ? | ? | Consider treatment failure ?+ +------- ---------+ -+ if levels does not decrease | >0.5 ? | Bacterial ? ? ?| Strongly ? ? ?| appropriately ? | ?| infection very | encouraged ? ?| ? | ?| likely ? | ? | ? + +-------- --------+ + -----+ Discontinuation of antibiotics in high-acuity patients with suspected or confirmed sepsis in Adults >= 18 years of age. + +-------- --------+ + -----+|Procalcitonin |Interpretation ?|Antibiotic ? ? |Considerations ? |ng/mL ? | ?|recommendation | ? + +-------- --------+ + -----+| <0.25 ?| Bacterial ? ? ?| Strongly ? ? ?| ? | ?| infection very | discouraged ? | Overruling: ? | ?| unlikely ? ? ? | ? | ? Clinically unstable ? ? ? + +-------- --------+ + ? High risk for adverse ? ? | <0.5 or drop | Bacterial ? ? ?| Discouraged ? | ? outcome ? | >80% from ? ?| infection ? ? ?| ? | ? SEE IMPORTANT NOTE ?| highest PCT ?| unlikely ? ? ? | ? | ? | level ?| ?| ? | ? + +-------- --------+ + -----+| >=0.5 ?| Bacterial ? ? ?| Encouraged ? ?| ? | ?| infection ? ? ?| ? | ? | ?| likely ? | ? | Consider treatment failure ?+ +------- ---------+ -+ if levels does not decrease | >1.0 ? | Bacterial ? ? ?| Strongly ? ? ?| appropriately ? | ?| infection very | encouraged ? ?| ? | ?| likely ? | ? | ? + +-------- --------+ + -----+ Percentage of drop of Procalcitonin calculation for Discontinuation of antibiotics in high-acuity patients with suspected or confirmed sepsis in Adults >= 18 years of age. ? Procalcitonin highest{}-Procalcitonin current{}Delta Procalcitonin = x100% ? Procalcitonin current {} IMPORTANT NOTE: Procalcitonin may be elevated without bacterial infection by physiologic stress related to trauma, spencer, chronic dialysis, metastatic cancer, surgery in the past seven days, malaria, some fungal infections, and some forms of vasculitis. The interpretation algorithm may not apply to patients with immunosuppression (equivalent of >10 mg of prednisone daily), HIV with CD4 cell count < 350 cells/mm3, active malignancy on systemic chemotherapy, solid organ transplant or hematopoietic stem cell transplantation, or hospital acquired pneumonia. Additionally, some clinical trials of procalcitonin have excluded patients with shock requiring vasopressor use, acute respiratory failure requiring mechanical ventilation, or those with known lung abscess/empyema. For further information please refer to:[email or web address] Lab Interpretation (test code = 59245-9) [facility] Whole [id number] 17:05:52* Test Item Value Reference Range Interpretation Comme nts LACTIC ACID (test code = 7081277337) 1.47 mmol/L 0.50-2.20 Lab Interpretation (test cod e = 89414-5) [id number] 13:55:32* Test Item Value Reference Range Interpretation Comme nts WBC (test code = 6690-2) 4.67 See_Comment [Automated [employer] ge] The system which generated this result transmitted reference range: 4.20 - 10.70 10*3/?L. The reference range was not used to interpret this result as normal/abnormal. RBC (test code = 789-8) 4.49 See_Comment [Automated messa ge] The system which generated this result transmitted reference range: 4.26 - 5.52 10*6/?L. The reference range was not used to interpret this result as normal/abnormal. HGB (test code = 718-7) 14.4 g/dL 12.2-16.4 HCT (test code = 4544-3) 43.3 % 38.4-49.3 MCV (test code = 787-2) 96.4 fL 81.7-95.6 H MCH (test code = 785-6) 32.1 pg 26.1-32.7 MCHC (test code = 786-4) 33.3 g/dL 31.2-35.0 RDW-SD (test code = 46006-0) 56.2 fL 38.5-51.6 H RDW-CV (test code = 788-0) 16.0 % 12.1-15.4 H PLT (test code = 777-3) 216 See_Comment [Automated messa ge] The system which generated this result transmitted reference range: 150 - 328 10*3/?L. The reference range was not used to interpret this result as normal/abnormal. MPV (test code = 35171-0) 8.5 fL 9.8-13.0 L NRBC/100 WBC (test code = 2925278635) 0.0 See_Comment [Automated Pinion.gg ssage] The system which generated this result transmitted reference range: 0.0 - 10.0 /100 WBCs. The reference range was not used to interpret this result as normal/abnormal. NRBC x10^3 (test code = 2524844596) See_Comment [Automated messa ge] The system which generated this result transmitted reference range: 10*3/?L. The reference range was not used to interpret this result as normal/abnormal. GRAN MAT (NEUT) % (test code = 770-8) 50.2 % IMM GRAN % (test code = 7929537244) 0.20 % LYMPH % (test code = 736-9) 32.5 % MONO % (test code = 5905-5) 11.1 % EOS % (test code = 713-8) 5.4 % BASO % (test code = 706-2) 0.6 % GRAN MAT x10^3(ANC) (test code = 4586233477) 2.34 10*3/uL 1.99-6.95 IMM GRAN x10^3 (test code = 2126421194) 0.00-0.06 LYMPH x10^3 (test code = 731-0) 1.52 10*3/uL 1.09-3.23 MONO x10^3 (test code = 742-7) 0.52 10*3/uL 0.36-1.02 EOS x10^3 (test code = 711-2) 0.25 10*3/uL 0.06-0.53 BASO x10^3 (test code = 704-7) 0.03 10*3/uL 0.01-0.09 Lab Interpretation (test code = 63420-3) Abnormal [facility] GLUCOSE (AUTOMATED)2023-04-02 01:10:20* Test Item Value Reference Range Interpretation Comme nts POCT GLU (test code = 1434986387) 95 mg/dL 70-110 Lab Interpretation (test cod e = 48623-4) Normal [facility] GLUCOSE (AUTOMATED)2023-04-01 21:34:34* Test Item Value Reference Range Interpretation Comme nts POCT GLU (test code = 8350947277) 122 mg/dL 70-110 H Lab Interpretation (test cod e = 03816-9) Abnormal [facility] GLUCOSE (AUTOMATED)2023-04-01 16:41:46* Test Item Value Reference Range Interpretation Comme nts POCT GLU (test code = 6365510743) 94 mg/dL 70-110 Lab Interpretation (test cod e = 23010-5) Normal [facility] GLUCOSE (AUTOMATED)2023-04-01 12:49:17* Test Item Value Reference Range Interpretation Comme nts POCT GLU (test code = 2223665418) 97 mg/dL 70-110 Lab Interpretation (test cod e = 68743-7) [facility] [id number] 10:35:03* Test Item Value Reference Range Interpretation Comme nts PHOSPHORUS (test code = 5182022736) 4.3 mg/dL 2.5-5.0 Lab Interpretation (test cod e = 37486-1) [facility] [id number] 21:28:56* Test Item Value Reference Range Interpretation Comme nts TROPONIN I (test code = 9475656098) 0.012 ng/mL <=0.034 MARCUS (test code = MARCUS) Reference (Normal) Range (defined by the 99th percentile reference limit): <= 0.034 ng/mL Note: Cardiac troponin begins to rise 3-4 hours after the onset of ischemia. Repeat in 4-6 hours if the sample was drawn within 3-4 hours of the onset of the symptom and found normal. Diagnosis of myocardial injury is made with acute changes in cTn concentrations with at least one serial sample above the 99th percentile upper reference limit (URL), taken together with the patient's clinical presentation. Biotin has been reported to cause a negative bias, interpret results relative to patient's use of biotin. Lab Interpretation (test code = 45828-8) [facility] [id number] 21:26:36* Test Item Value Reference Range Interpretation Comme nts NT-proBNP (test code = 86097-8) 247 pg/mL <=125 MARCUS (test code = MARCUS) Result Indeterminate-Consid er causes of NT-proBNP elevation other than Heart failure such as acute coronary syndrome, pulmonary embolism, pulmonary hypertension, sepsis, stroke, and renal dysfunction. Lab Interpretation (test code = 78718-3) [facility] (45446)2023-03-31 21:17:38* Test Item Value Reference Range Interpretation Comme nts NA (test code = 3714154751) 137 mmol/L 135-145 K (test code = 0066919826) 3.7 mmol/L 3.5-5.0 CL (test code = 0343032127) 104 mmol/L 98-108 CO2 TOTAL (test code = 0981302813) 24 mmol/L 23-31 AGAP (test code = 1007420885) 9 2-16 BUN (test code = 0707445490) 32 mg/dL 7-23 H GLUCOSE (test code = 0598400877) 97 mg/dL 70-110 CREATININE (test code = 0823480740) 1.38 mg/dL 0.60-1.25 H TOTAL BILI (test code = 4148997756) 0.5 mg/dL 0.1-1.1 CALCIUM (test code = 1153252874) 9.1 mg/dL 8.6-10.6 T PROTEIN (test code = 8194456741) 7.7 g/dL 6.3-8.2 ALBUMIN (test code = 7606049547) 4.2 g/dL 3.5-5.0 ALK PHOS (test code = 3303360676) 99 U/L 34-122 ALTv (test code = 1742-6) 23 U/L 5-50 AST(SGOT) (test code = 2005030900) 39 U/L 13-40 eGFR (test code = 2427790375) 49.3 mL/min/1.73m2 MARCUS (test code = MARCUS) Association of Glomerular Filtration Rate (GFR) and Staging of Kidney Disease* + --+ --+ ------+| GFR (mL/min/1.73 m2) ?| With Kidney Damage ?| ?Without Kidney Damage+ --------+ --------+ +| ?>90 ?| ?Stage one ?| ? Normal ?+ ---+ ---+ -------+| ?60-89 ?| ?Stage two ?| ? Decreased GFR ? + --+ --+ ------+| ?30-59 ?| ?Stage three ?| ? Stage three ? + --+ --+ ------+| ?15-29 ?| ?Stage four ? | ? Stage four ?+ ---+ ---+ -------+| ?<15 (or dialysis) ? ?| ?Stage five ? | ? Stage five ?+ ---+ ---+ -------+ *Each stage assumes the associated GFR level has been in effect for at least three months. ?Stages 1 to 5, with or without kidney disease, indicate chronic kidney disease. Notes: Determination of stages one and two (with eGFR >59mL/min/1.73 m2) requires estimation of kidney damage for at least three months as defined by structural or functional abnormalities of the kidney, manifested by either:Pathological abnormalities or Markers of kidney damage (including abnormalities in the composition of the blood or urine or abnormalities in imaging tests). Lab Interpretation (test code = 86264-7) Abnormal [facility] WITH [id number] 20:32:47* Test Item Value Reference Range Interpretation Comme nts WBC (test code = 6690-2) 7.71 See_Comment [Automated messa ge] The system which generated this result transmitted reference range: 4.20 - 10.70 10*3/?L. The reference range was not used to interpret this result as normal/abnormal. RBC (test code = 789-8) 4.57 See_Comment [Automated messa ge] The system which generated this result transmitted reference range: 4.26 - 5.52 10*6/?L. The reference range was not used to interpret this result as normal/abnormal. HGB (test code = 718-7) 15.1 g/dL 12.2-16.4 HCT (test code = 4544-3) 43.4 % 38.4-49.3 MCV (test code = 787-2) 95.0 fL 81.7-95.6 MCH (test code = 785-6) 33.0 pg 26.1-32.7 H MCHC (test code = 786-4) 34.8 g/dL 31.2-35.0 RDW-SD (test code = 14387-3) 54.1 fL 38.5-51.6 H RDW-CV (test code = 788-0) 15.8 % 12.1-15.4 H PLT (test code = 777-3) 212 See_Comment [Automated [employer] ge] The system which generated this result transmitted reference range: 150 - 328 10*3/?L. The reference range was not used to interpret this result as normal/abnormal. MPV (test code = 61931-1) 9.0 fL 9.8-13.0 L NRBC/100 WBC (test code = 7829875202) 0.0 See_Comment [Automated Pinion[employer]gg ssage] The system which generated this result transmitted reference range: 0.0 - 10.0 /100 WBCs. The reference range was not used to interpret this result as normal/abnormal. NRBC x10^3 (test code = 5076111074) See_Comment [Automated messa ge] The system which generated this result transmitted reference range: 10*3/?L. The reference range was not used to interpret this result as normal/abnormal. GRAN MAT (NEUT) % (test code = 770-8) 68.6 % IMM GRAN % (test code = 2044992026) 0.30 % LYMPH % (test code = 736-9) 19.6 % MONO % (test code = 5905-5) 9.9 % EOS % (test code = 713-8) 1.2 % BASO % (test code = 706-2) 0.4 % GRAN MAT x10^3(ANC) (test code = 4035159055) 5.30 10*3/uL 1.99-6.95 IMM GRAN x10^3 (test code = 1864098629) 0.00-0.06 LYMPH x10^3 (test code = 731-0) 1.51 10*3/uL 1.09-3.23 MONO x10^3 (test code = 742-7) 0.76 10*3/uL 0.36-1.02 EOS x10^3 (test code = 711-2) 0.09 10*3/uL 0.06-0.53 BASO x10^3 (test code = 704-7) 0.03 10*3/uL 0.01-0.09 Lab Interpretation (test code = 69763-7) [facility] 13:34:16* Test Item Value Reference Range Interpretation Comme [facility] POCT GLU (test code = 8475401301) 111 mg/dL 70-110 H Lab Interpretation (test cod e = 42649-9) [facility]normal [facility] HospitalProthrombin Time / [id number] 14:18:16* Test Item Value Reference Range Interpretation Comme [facility] PROTIME PATIENT (test code = 5964-2) 11.2 See_Comment [Automated messa ge] The system which generated this result transmitted reference range: 10.1 - 12.6 Seconds. The reference range was not used to interpret this result as normal/abnormal. INR (test code = 6301-6) 1.0 Normal INR <1.1; Warfarin Therapeutic range 2.0 to 3.0 or 2.5 to 3.5, depending upon the indications. Lab Interpretation (test code = 88223-2) Normal [facility] / [id number] 14:18:16* Test Item Value Reference Range Interpretation Comme nts PROTIME PATIENT (test code = 5964-2) 11.2 See_Comment [Automated [employer] ge] The system which generated this result transmitted reference range: 10.1 - 12.6 Seconds. The reference range was not used to interpret this result as normal/abnormal. INR (test code = 6301-6) 1.0 Normal INR <1.1; Warfarin Therapeutic range 2.0 to 3.0 or 2.5 to 3.5, depending upon the indications. Lab Interpretation (test code = 80093-2) Normal [facility] HospitalCARCINOEMBRYONIC [id number] 20:53:47* Test Item Value Reference Range Interpretation Comme nts CEA (test code = 5618687958) 21.7 ng/mL 0.0-10.0 H MARCUS (test code = MARCUS) CEA Ranges: Non-Smokers ?0-5.0 ng/mLSmokers ? ? ?0-10.0 ng/mL Lab Interpretation (test code = 91321-7) [facility]OL[facility]EL (86691)2023-02-22 14:58:36* Test Item Value Reference Range Interpretation Comme nts NA (test code = 9257615971) 142 mmol/L 135-145 K (test code = 7643256467) 5.0 mmol/L 3.5-5.0 CL (test code = 6879678216) 105 mmol/L 98-108 CO2 TOTAL (test code = 9220680099) 27 mmol/L 23-31 AGAP (test code = 7640211241) 10 2-16 BUN (test code = 8794186454) 18 mg/dL 7-23 GLUCOSE (test code = 9935808181) 91 mg/dL 70-110 CREATININE (test code = 4469759357) 1.00 mg/dL 0.60-1.25 TOTAL BILI (test code = 5656159863) 0.6 mg/dL 0.1-1.1 CALCIUM (test code = 4723626876) 9.3 mg/dL 8.6-10.6 T PROTEIN (test code = 9029090382) 7.6 g/dL 6.3-8.2 ALBUMIN (test code = 5551682857) 4.2 g/dL 3.5-5.0 ALK PHOS (test code = 6061543066) 114 U/L 34-122 ALTv (test code = 1742-6) 32 U/L 5-50 AST(SGOT) (test code = 2118570183) 55 U/L 13-40 H eGFR (test code = 6932601261) 71.5 mL/min/1.73m2 MARCUS (test code = MARCUS) Association of Glomerular Filtration Rate (GFR) and Staging of Kidney Disease* + --+ --+ ------+| GFR (mL/min/1.73 m2) ?| With Kidney Damage ?| ?Without Kidney Damage+ --------+ --------+ +| ?>90 ?| ?Stage one ?| ? Normal ?+ ---+ ---+ -------+| ?60-89 ?| ?Stage two ?| ? Decreased GFR ? + --+ --+ ------+| ?30-59 ?| ?Stage three ?| ? Stage three ? + --+ --+ ------+| ?15-29 ?| ?Stage four ? | ? Stage four ?+ ---+ ---+ -------+| ?<15 (or dialysis) ? ?| ?Stage five ? | ? Stage five ?+ ---+ ---+ -------+ *Each stage assumes the associated GFR level has been in effect for at least three months. ?Stages 1 to 5, with or without kidney disease, indicate chronic kidney disease. Notes: Determination of stages one and two (with eGFR >59mL/min/1.73 m2) requires estimation of kidney damage for at least three months as defined by structural or functional abnormalities of the kidney, manifested by either:Pathological abnormalities or Markers of kidney damage (including abnormalities in the composition of the blood or urine or abnormalities in imaging tests). Lab Interpretation (test code = 92428-5) [facility]2023-[facility]-17 14:58:36* Test Item Value Reference Range Interpretation Comme nts MAGNESIUM (test code = 3372730057) 2.0 mg/dL 1.7-2.4 Lab Interpretation (test cod e = 61807-4) Normal [facility]PHOS[facility]ORUS2023-07-17 14:58:36* Test Item Value Reference Range Interpretation Comme nts PHOSPHORUS (test code = 1417089008) 4.1 mg/dL 2.5-5.0 Lab Interpretation (test cod e = 81012-3) [facility] WITH [id number] 14:12:31* Test Item Value Reference Range Interpretation Comme nts WBC (test code = 6690-2) 8.37 See_Comment [Automated messa ge] The system which generated this result transmitted reference range: 4.20 - 10.70 10*3/?L. The reference range was not used to interpret this result as normal/abnormal. RBC (test code = 789-8) 4.55 See_Comment [Automated messa ge] The system which generated this result transmitted reference range: 4.26 - 5.52 10*6/?L. The reference range was not used to interpret this result as normal/abnormal. HGB (test code = 718-7) 15.1 g/dL 12.2-16.4 HCT (test code = 4544-3) 44.0 % 38.4-49.3 MCV (test code = 787-2) 96.7 fL 81.7-95.6 H MCH (test code = 785-6) 33.2 pg 26.1-32.7 H MCHC (test code = 786-4) 34.3 g/dL 31.2-35.0 RDW-SD (test code = 02973-6) 52.8 fL 38.5-51.6 H RDW-CV (test code = 788-0) 14.9 % 12.1-15.4 PLT (test code = 777-3) 272 See_Comment [Automated messa ge] The system which generated this result transmitted reference range: 150 - 328 10*3/?L. The reference range was not used to interpret this result as normal/abnormal. MPV (test code = 52053-5) 8.8 fL 9.8-13.0 L NRBC/100 WBC (test code = 9040794219) 0.0 See_Comment [Automated me ssage] The system which generated this result transmitted reference range: 0.0 - 10.0 /100 WBCs. The reference range was not used to interpret this result as normal/abnormal. NRBC x10^3 (test code = 3620257847) See_Comment [Automated messa ge] The system which generated this result transmitted reference range: 10*3/?L. The reference range was not used to interpret this result as normal/abnormal. GRAN MAT (NEUT) % (test code = 770-8) 66.4 % IMM GRAN % (test code = 5457551270) 0.10 % LYMPH % (test code = 736-9) 23.3 % MONO % (test code = 5905-5) 6.9 % EOS % (test code = 713-8) 2.9 % BASO % (test code = 706-2) 0.4 % GRAN MAT x10^3(ANC) (test code = 1940382485) 5.56 10*3/uL 1.99-6.95 IMM GRAN x10^3 (test code = 2054322391) 0.00-0.06 LYMPH x10^3 (test code = 731-0) 1.95 10*3/uL 1.09-3.23 MONO x10^3 (test code = 742-7) 0.58 10*3/uL 0.36-1.02 EOS x10^3 (test code = 711-2) 0.24 10*3/uL 0.06-0.53 BASO x10^3 (test code = 704-7) 0.03 10*3/uL 0.01-0.09 Lab Interpretation (test code = 89804-4) [facility] (71053)2023-02-02 14:22:09* Test Item Value Reference Range Interpretation Comme nts NA (test code = 5577402371) 137 mmol/L 135-145 K (test code = 3191421258) 4.6 mmol/L 3.5-5.0 CL (test code = 6052905314) 102 mmol/L 98-108 CO2 TOTAL (test code = 9378453963) 27 mmol/L 23-31 AGAP (test code = 0494948123) 8 2-16 BUN (test code = 8490057354) 19 mg/dL 7-23 GLUCOSE (test code = 4930420562) 116 mg/dL 70-110 H CREATININE (test code = 7200399946) 0.91 mg/dL 0.60-1.25 TOTAL BILI (test code = 0160438301) 0.7 mg/dL 0.1-1.1 CALCIUM (test code = 0211169340) 9.0 mg/dL 8.6-10.6 T PROTEIN (test code = 2675211675) 7.1 g/dL 6.3-8.2 ALBUMIN (test code = 4013587439) 3.7 g/dL 3.5-5.0 ALK PHOS (test code = 3183224705) 60 U/L 34-122 ALTv (test code = 1742-6) 20 U/L 5-50 AST(SGOT) (test code = 7919264634) 42 U/L 13-40 H eGFR (test code = 8395226103) 79.8 mL/min/1.73m2 MARCUS (test code = MARCUS) Association of Glomerular Filtration Rate (GFR) and Staging of Kidney Disease* + --+ --+ ------+| GFR (mL/min/1.73 m2) ?| With Kidney Damage ?| ?Without Kidney Damage+ --------+ --------+ +| ?>90 ?| ?Stage one ?| ? Normal ?+ ---+ ---+ -------+| ?60-89 ?| ?Stage two ?| ? Decreased GFR ? + --+ --+ ------+| ?30-59 ?| ?Stage three ?| ? Stage three ? + --+ --+ ------+| ?15-29 ?| ?Stage four ? | ? Stage four ?+ ---+ ---+ -------+| ?<15 (or dialysis) ? ?| ?Stage five ? | ? Stage five ?+ ---+ ---+ -------+ *Each stage assumes the associated GFR level has been in effect for at least three months. ?Stages 1 to 5, with or without kidney disease, indicate chronic kidney disease. Notes: Determination of stages one and two (with eGFR >59mL/min/1.73 m2) requires estimation of kidney damage for at least three months as defined by structural or functional abnormalities of the kidney, manifested by either:Pathological abnormalities or Markers of kidney damage (including abnormalities in the composition of the blood or urine or abnormalities in imaging tests). Lab Interpretation (test code = 56490-0) [facility]20[facility] 14:22:09* Test Item Value Reference Range Interpretation Comme nts MAGNESIUM (test code = 7820875819) 1.8 mg/dL 1.7-2.4 Lab Interpretation (test cod e = 60271-7) [facility] (05432)2023-02-02 14:22:09* Test Item Value Reference Range Interpretation Comme nts NA (test code = 4022700389) 137 mmol/L 135-145 K (test code = 4439428289) 4.6 mmol/L 3.5-5.0 CL (test code = 3481182354) 102 mmol/L 98-108 CO2 TOTAL (test code = 3143088758) 27 mmol/L 23-31 AGAP (test code = 2471843105) 8 2-16 BUN (test code = 8506445134) 19 mg/dL 7-23 GLUCOSE (test code = 1440351811) 116 mg/dL 70-110 H CREATININE (test code = 8319407657) 0.91 mg/dL 0.60-1.25 TOTAL BILI (test code = 2680905429) 0.7 mg/dL 0.1-1.1 CALCIUM (test code = 5213160421) 9.0 mg/dL 8.6-10.6 T PROTEIN (test code = 7114466779) 7.1 g/dL 6.3-8.2 ALBUMIN (test code = 6368313112) 3.7 g/dL 3.5-5.0 ALK PHOS (test code = 9346727246) 60 U/L 34-122 ALTv (test code = 1742-6) 20 U/L 5-50 AST(SGOT) (test code = 6389501345) 42 U/L 13-40 H eGFR (test code = 2519799212) 79.8 mL/min/1.73m2 MARCUS (test code = MARCUS) Association of Glomerular Filtration Rate (GFR) and Staging of Kidney Disease* + --+ --+ ------+| GFR (mL/min/1.73 m2) ?| With Kidney Damage ?| ?Without Kidney Damage+ --------+ --------+ +| ?>90 ?| ?Stage one ?| ? Normal ?+ ---+ ---+ -------+| ?60-89 ?| ?Stage two ?| ? Decreased GFR ? + --+ --+ ------+| ?30-59 ?| ?Stage three ?| ? Stage three ? + --+ --+ ------+| ?15-29 ?| ?Stage four ? | ? Stage four ?+ ---+ ---+ -------+| ?<15 (or dialysis) ? ?| ?Stage five ? | ? Stage five ?+ ---+ ---+ -------+ *Each stage assumes the associated GFR level has been in effect for at least three months. ?Stages 1 to 5, with or without kidney disease, indicate chronic kidney disease. Notes: Determination of stages one and two (with eGFR >59mL/min/1.73 m2) requires estimation of kidney damage for at least three months as defined by structural or functional abnormalities of the kidney, manifested by either:Pathological abnormalities or Markers of kidney damage (including abnormalities in the composition of the blood or urine or abnormalities in imaging tests). Lab Interpretation (test code = 44007-7) [facility] 14:22:09* Test Item Value Reference Range Interpretation Comme nts MAGNESIUM (test code = 8360898838) 1.8 mg/dL 1.7-2.4 Lab Interpretation (test cod e = 11732-0) [facility]2023[facility] 14:21:49* Test Item Value Reference Range Interpretation Comme nts PHOSPHORUS (test code = 4713750109) 3.3 mg/dL 2.5-5.0 Lab Interpretation (test cod e = 53018-8) [facility] 14:21:49* Test Item Value Reference Range Interpretation Comme nts PHOSPHORUS (test code = 0753761333) 3.3 mg/dL 2.5-5.0 Lab Interpretation (test cod e = 03944-1) Normal [facility] WITH [id number] 13:39:06* Test Item Value Reference Range Interpretation Comme nts WBC (test code = 6690-2) 5.29 See_Comment [Automated messa ge] The system which generated this result transmitted reference range: 4.20 - 10.70 10*3/?L. The reference range was not used to interpret this result as normal/abnormal. RBC (test code = 789-8) 4.25 See_Comment L [Automated messa ge] The system which generated this result transmitted reference range: 4.26 - 5.52 10*6/?L. The reference range was not used to interpret this result as normal/abnormal. HGB (test code = 718-7) 14.3 g/dL 12.2-16.4 HCT (test code = 4544-3) 42.2 % 38.4-49.3 MCV (test code = 787-2) 99.3 fL 81.7-95.6 H MCH (test code = 785-6) 33.6 pg 26.1-32.7 H MCHC (test code = 786-4) 33.9 g/dL 31.2-35.0 RDW-SD (test code = 37931-1) 54.9 fL 38.5-51.6 H RDW-CV (test code = 788-0) 14.9 % 12.1-15.4 PLT (test code = 777-3) 257 See_Comment [Automated messa ge] The system which generated this result transmitted reference range: 150 - 328 10*3/?L. The reference range was not used to interpret this result as normal/abnormal. MPV (test code = 60688-7) 8.6 fL 9.8-13.0 L NRBC/100 WBC (test code = 5638569804) 0.0 See_Comment [Automated Pinion[employer]gg ssage] The system which generated this result transmitted reference range: 0.0 - 10.0 /100 WBCs. The reference range was not used to interpret this result as normal/abnormal. NRBC x10^3 (test code = 9500884981) See_Comment [Automated messa ge] The system which generated this result transmitted reference range: 10*3/?L. The reference range was not used to interpret this result as normal/abnormal. GRAN MAT (NEUT) % (test code = 770-8) 58.2 % IMM GRAN % (test code = 9587391248) 0.20 % LYMPH % (test code = 736-9) 27.8 % MONO % (test code = 5905-5) 9.8 % EOS % (test code = 713-8) 3.4 % BASO % (test code = 706-2) 0.6 % GRAN MAT x10^3(ANC) (test code = 0976827077) 3.08 10*3/uL 1.99-6.95 IMM GRAN x10^3 (test code = 3751034473) 0.00-0.06 LYMPH x10^3 (test code = 731-0) 1.47 10*3/uL 1.09-3.23 MONO x10^3 (test code = 742-7) 0.52 10*3/uL 0.36-1.02 EOS x10^3 (test code = 711-2) 0.18 10*3/uL 0.06-0.53 BASO x10^3 (test code = 704-7) 0.03 10*3/uL 0.01-0.09 Lab Interpretation (test code = 15547-8) Abnormal [facility] WITH [id number] 13:39:06* Test Item Value Reference Range Interpretation Comme nts WBC (test code = 6690-2) 5.29 See_Comment [Automated messa ge] The system which generated this result transmitted reference range: 4.20 - 10.70 10*3/?L. The reference range was not used to interpret this result as normal/abnormal. RBC (test code = 789-8) 4.25 See_Comment L [Automated messa ge] The system which generated this result transmitted reference range: 4.26 - 5.52 10*6/?L. The reference range was not used to interpret this result as normal/abnormal. HGB (test code = 718-7) 14.3 g/dL 12.2-16.4 HCT (test code = 4544-3) 42.2 % 38.4-49.3 MCV (test code = 787-2) 99.3 fL 81.7-95.6 H MCH (test code = 785-6) 33.6 pg 26.1-32.7 H MCHC (test code = 786-4) 33.9 g/dL 31.2-35.0 RDW-SD (test code = 18785-7) 54.9 fL 38.5-51.6 H RDW-CV (test code = 788-0) 14.9 % 12.1-15.4 PLT (test code = 777-3) 257 See_Comment [Automated [employer]] The system which generated this result transmitted reference range: 150 - 328 10*3/?L. The reference range was not used to interpret this result as normal/abnormal. MPV (test code = 77039-2) 8.6 fL 9.8-13.0 L NRBC/100 WBC (test code = 0580299167) 0.0 See_Comment [Automated [employer]] The system which generated this result transmitted reference range: 0.0 - 10.0 /100 WBCs. The reference range was not used to interpret this result as normal/abnormal. NRBC x10^3 (test code = 0780088295) See_Comment [Automated [place] ge] The system which generated this result transmitted reference range: 10*3/?L. The reference range was not used to interpret this result as normal/abnormal. GRAN MAT (NEUT) % (test code = 770-8) 58.2 % IMM GRAN % (test code = 7211818973) 0.20 % LYMPH % (test code = 736-9) 27.8 % MONO % (test code = 5905-5) 9.8 % EOS % (test code = 713-8) 3.4 % BASO % (test code = 706-2) 0.6 % GRAN MAT x10^3(ANC) (test code = 3834113024) 3.08 10*3/uL 1.99-6.95 IMM GRAN x10^3 (test code = 1355138076) 0.00-0.06 LYMPH x10^3 (test code = 731-0) 1.47 10*3/uL 1.09-3.23 MONO x10^3 (test code = 742-7) 0.52 10*3/uL 0.36-1.02 EOS x10^3 (test code = 711-2) 0.18 10*3/uL 0.06-0.53 BASO x10^3 (test code = 704-7) 0.03 10*3/uL 0.01-0.09 Lab Interpretation (test code = 31833-5) Abnormal [facility] WITH [id number] 13:39:06* Test Item Value Reference Range Interpretation Comme nts WBC (test code = 6690-2) 5.29 See_Comment [Automated messa ge] The system which generated this result transmitted reference range: 4.20 - 10.70 10*3/?L. The reference range was not used to interpret this result as normal/abnormal. RBC (test code = 789-8) 4.25 See_Comment L [Automated messa ge] The system which generated this result transmitted reference range: 4.26 - 5.52 10*6/?L. The reference range was not used to interpret this result as normal/abnormal. HGB (test code = 718-7) 14.3 g/dL 12.2-16.4 HCT (test code = 4544-3) 42.2 % 38.4-49.3 MCV (test code = 787-2) 99.3 fL 81.7-95.6 H MCH (test code = 785-6) 33.6 pg 26.1-32.7 H MCHC (test code = 786-4) 33.9 g/dL 31.2-35.0 RDW-SD (test code = 76370-9) 54.9 fL 38.5-51.6 H RDW-CV (test code = 788-0) 14.9 % 12.1-15.4 PLT (test code = 777-3) 257 See_Comment [Automated messa ge] The system which generated this result transmitted reference range: 150 - 328 10*3/?L. The reference range was not used to interpret this result as normal/abnormal. MPV (test code = 60237-8) 8.6 fL 9.8-13.0 L NRBC/100 WBC (test code = 9018311362) 0.0 See_Comment [Automated [employer] ssage] The system which generated this result transmitted reference range: 0.0 - 10.0 /100 WBCs. The reference range was not used to interpret this result as normal/abnormal. NRBC x10^3 (test code = 1288255933) See_Comment [Automated messa ge] The system which generated this result transmitted reference range: 10*3/?L. The reference range was not used to interpret this result as normal/abnormal. GRAN MAT (NEUT) % (test code = 770-8) 58.2 % IMM GRAN % (test code = 9371625380) 0.20 % LYMPH % (test code = 736-9) 27.8 % MONO % (test code = 5905-5) 9.8 % EOS % (test code = 713-8) 3.4 % BASO % (test code = 706-2) 0.6 % GRAN MAT x10^3(ANC) (test code = 0840110307) 3.08 10*3/uL 1.99-6.95 IMM GRAN x10^3 (test code = 2552598962) 0.00-0.06 LYMPH x10^3 (test code = 731-0) 1.47 10*3/uL 1.09-3.23 MONO x10^3 (test code = 742-7) 0.52 10*3/uL 0.36-1.02 EOS x10^3 (test code = 711-2) 0.18 10*3/uL 0.06-0.53 BASO x10^3 (test code = 704-7) 0.03 10*3/uL 0.01-0.09 Lab Interpretation (test code = 43888-7) [id number] 11:33:31* Test Item Value Reference Range Interpretation Comme nts NA (test code = 4167450911) 137 mmol/L 135-145 K (test code = 6919879888) 4.1 mmol/L 3.5-5.0 CL (test code = 8152816937) 103 mmol/L 98-108 CO2 TOTAL (test code = 7982543609) 25 mmol/L 23-31 AGAP (test code = 0240120058) 9 2-16 BUN (test code = 8372038189) 20 mg/dL 7-23 GLUCOSE (test code = 9231147901) 113 mg/dL 70-110 H CREATININE (test code = 5071689627) 1.11 mg/dL 0.60-1.25 TOTAL BILI (test code = 1129026631) 0.8 mg/dL 0.1-1.1 CALCIUM (test code = 6730231182) 9.0 mg/dL 8.6-10.6 T PROTEIN (test code = 1132705842) 6.8 g/dL 6.3-8.2 ALBUMIN (test code = 9100278534) 3.8 g/dL 3.5-5.0 ALK PHOS (test code = 2503850237) 38 U/L 34-122 ALTv (test code = 1742-6) 19 U/L 5-50 AST(SGOT) (test code = 3271419823) 38 U/L 13-40 eGFR (test code = 0502433454) 63.4 mL/min/1.73m2 MARCUS (test code = MARCUS) Association of Glomerular Filtration Rate (GFR) and Staging of Kidney Disease* + --+ --+ ------+| GFR (mL/min/1.73 m2) ?| With Kidney Damage ?| ?Without Kidney Damage+ --------+ --------+ +| ?>90 ?| ?Stage one ?| ? Normal ?+ ---+ ---+ -------+| ?60-89 ?| ?Stage two ?| ? Decreased GFR ? + --+ --+ ------+| ?30-59 ?| ?Stage three ?| ? Stage three ? + --+ --+ ------+| ?15-29 ?| ?Stage four ? | ? Stage four ?+ ---+ ---+ -------+| ?<15 (or dialysis) ? ?| ?Stage five ? | ? Stage five ?+ ---+ ---+ -------+ *Each stage assumes the associated GFR level has been in effect for at least three months. ?Stages 1 to 5, with or without kidney disease, indicate chronic kidney disease. Notes: Determination of stages one and two (with eGFR >59mL/min/1.73 m2) requires estimation of kidney damage for at least three months as defined by structural or functional abnormalities of the kidney, manifested by either:Pathological abnormalities or Markers of kidney damage (including abnormalities in the composition of the blood or urine or abnormalities in imaging tests). Lab Interpretation (test code = 32734-0) Abnormal [facility] WITH [id number] 11:20:32* Test Item Value Reference Range Interpretation Comme nts WBC (test code = 6690-2) 12.19 See_Comment H [Automated message] The system which generated this result transmitted reference range: 4.20 - 10.70 10*3/?L. The reference range was not used to interpret this result as normal/abnormal. RBC (test code = 789-8) 3.91 See_Comment L [Automated message] The system which generated this result transmitted reference range: 4.26 - 5.52 10*6/?L. The reference range was not used to interpret this result as normal/abnormal. HGB (test code = 718-7) 13.7 g/dL 12.2-16.4 HCT (test code = 4544-3) 39.6 % 38.4-49.3 MCV (test code = 787-2) 101.3 fL 81.7-95.6 H MCH (test code = 785-6) 35.0 pg 26.1-32.7 H MCHC (test code = 786-4) 34.6 g/dL 31.2-35.0 RDW-SD (test code = 55572-9) 62.5 fL 38.5-51.6 H RDW-CV (test code = 788-0) 16.8 % 12.1-15.4 H PLT (test code = 777-3) 213 See_Comment [Automated message] The system which generated this result transmitted reference range: 150 - 328 10*3/?L. The reference range was not used to interpret this result as normal/abnormal. MPV (test code = 48994-9) 8.5 fL 9.8-13.0 L NRBC/100 WBC (test code = 8473852478) 0.0 See_Comment [Automated message] The system which generated this result transmitted reference range: 0.0 - 10.0 /100 WBCs. The reference range was not used to interpret this result as normal/abnormal. NRBC x10^3 (test code = 4758509780) See_Comment [Automated message] The system which generated this result transmitted reference range: 10*3/?L. The reference range was not used to interpret this result as normal/abnormal. GRAN MAT (NEUT) % (test code = 770-8) 88.6 % IMM GRAN % (test code = 5999862090) 0.30 % LYMPH % (test code = 736-9) 6.3 % MONO % (test code = 5905-5) 3.5 % EOS % (test code = 713-8) 1.1 % BASO % (test code = 706-2) 0.2 % GRAN MAT x10^3(ANC) (test code = 9776242291) 10.79 10*3/uL 1.99-6.95 H IMM GRAN x10^3 (test code = 1460333189) 0.04 10*3/uL 0.00-0.06 LYMPH x10^3 (test code = 731-0) 0.77 10*3/uL 1.09-3.23 L MONO x10^3 (test code = 742-7) 0.43 10*3/uL 0.36-1.02 EOS x10^3 (test code = 711-2) 0.14 10*3/uL 0.06-0.53 BASO x10^3 (test code = 704-7) 0.01-0.09 Lab Interpretation (test code = 59071-9) Abnormal [facility] METABOLIC PANEL (NA, K, CL, CO2, GLUCOSE, BUN, CREATININE, CA)2022-11-23 10:36:43* Test Item Value Reference Range Interpretation Comme nts NA (test code = 1448564632) 141 mmol/L 135-145 K (test code = 4097855458) 4.3 mmol/L 3.5-5.0 CL (test code = 9095922226) 114 mmol/L 98-108 H CO2 TOTAL (test code = 2532027915) 26 mmol/L 23-31 AGAP (test code = 2701339035) 1 2-16 L BUN (test code = 9747454126) 15 mg/dL 7-23 GLUCOSE (test code = 1440073702) 89 mg/dL 70-110 CREATININE (test code = 1423156848) 1.01 mg/dL 0.60-1.25 CALCIUM (test code = 4153277468) 7.8 mg/dL 8.6-10.6 L eGFR (test code = 2962716220) 70.7 mL/min/1.73m2 MARCUS (test code = MARCUS) Association of Glomerular Filtration Rate (GFR) and Staging of Kidney Disease* + --+ --+ ------+| GFR (mL/min/1.73 m2) ?| With Kidney Damage ?| ?Without Kidney Damage+ --------+ --------+ +| ?>90 ?| ?Stage one ?| ? Normal ?+ ---+ ---+ -------+| ?60-89 ?| ?Stage two ?| ? Decreased GFR ? + --+ --+ ------+| ?30-59 ?| ?Stage three ?| ? Stage three ? + --+ --+ ------+| ?15-29 ?| ?Stage four ? | ? Stage four ?+ ---+ ---+ -------+| ?<15 (or dialysis) ? ?| ?Stage five ? | ? Stage five ?+ ---+ ---+ -------+ *Each stage assumes the associated GFR level has been in effect for at least three months. ?Stages 1 to 5, with or without kidney disease, indicate chronic kidney disease. Notes: Determination of stages one and two (with eGFR >59mL/min/1.73 m2) requires estimation of kidney damage for at least three months as defined by structural or functional abnormalities of the kidney, manifested by either:Pathological abnormalities or Markers of kidney damage (including abnormalities in the composition of the blood or urine or abnormalities in imaging tests). Lab Interpretation (test code = 54392-6) Abnormal [facility] METABOLIC PANEL (NA, K, CL, CO2, GLUCOSE, BUN, CREATININE, CA)2022-11-23 10:36:43* Test Item Value Reference Range Interpretation Comme nts NA (test code = 0516266268) 141 mmol/L 135-145 K (test code = 9982520274) 4.3 mmol/L 3.5-5.0 CL (test code = 2280808208) 114 mmol/L 98-108 H CO2 TOTAL (test code = 3675615139) 26 mmol/L 23-31 AGAP (test code = 4824630273) 1 2-16 L BUN (test code = 3361520612) 15 mg/dL 7-23 GLUCOSE (test code = 4972251186) 89 mg/dL 70-110 CREATININE (test code = 9710474258) 1.01 mg/dL 0.60-1.25 CALCIUM (test code = 7494943936) 7.8 mg/dL 8.6-10.6 L eGFR (test code = 1401652779) 70.7 mL/min/1.73m2 MARCUS (test code = MARCUS) Association of Glomerular Filtration Rate (GFR) and Staging of Kidney Disease* + --+ --+ ------+| GFR (mL/min/1.73 m2) ?| With Kidney Damage ?| ?Without Kidney Damage+ --------+ --------+ +| ?>90 ?| ?Stage one ?| ? Normal ?+ ---+ ---+ -------+| ?60-89 ?| ?Stage two ?| ? Decreased GFR ? + --+ --+ ------+| ?30-59 ?| ?Stage three ?| ? Stage three ? + --+ --+ ------+| ?15-29 ?| ?Stage four ? | ? Stage four ?+ ---+ ---+ -------+| ?<15 (or dialysis) ? ?| ?Stage five ? | ? Stage five ?+ ---+ ---+ -------+ *Each stage assumes the associated GFR level has been in effect for at least three months. ?Stages 1 to 5, with or without kidney disease, indicate chronic kidney disease. Notes: Determination of stages one and two (with eGFR >59mL/min/1.73 m2) requires estimation of kidney damage for at least three months as defined by structural or functional abnormalities of the kidney, manifested by either:Pathological abnormalities or Markers of kidney damage (including abnormalities in the composition of the blood or urine or abnormalities in imaging tests). Lab Interpretation (test code = 47084-5) [facility] (NA, K, CL, CO2, GLUCOSE, BUN, CREATININE, CA)2022-11-23 10:36:43* Test Item Value Reference Range Interpretation Comme nts NA (test code = 2071405955) 141 mmol/L 135-145 K (test code = 0820610278) 4.3 mmol/L 3.5-5.0 CL (test code = 5626837517) 114 mmol/L 98-108 H CO2 TOTAL (test code = 7938584962) 26 mmol/L 23-31 AGAP (test code = 9201793099) 1 2-16 L BUN (test code = 0452085467) 15 mg/dL 7-23 GLUCOSE (test code = 9759028417) 89 mg/dL 70-110 CREATININE (test code = 7301488304) 1.01 mg/dL 0.60-1.25 CALCIUM (test code = 1029749466) 7.8 mg/dL 8.6-10.6 L eGFR (test code = 2995626941) 70.7 mL/min/1.73m2 MARCUS (test code = MARCUS) Association of Glomerular Filtration Rate (GFR) and Staging of Kidney Disease* + --+ --+ ------+| GFR (mL/min/1.73 m2) ?| With Kidney Damage ?| ?Without Kidney Damage+ --------+ --------+ +| ?>90 ?| ?Stage one ?| ? Normal ?+ ---+ ---+ -------+| ?60-89 ?| ?Stage two ?| ? Decreased GFR ? + --+ --+ ------+| ?30-59 ?| ?Stage three ?| ? Stage three ? + --+ --+ ------+| ?15-29 ?| ?Stage four ? | ? Stage four ?+ ---+ ---+ -------+| ?<15 (or dialysis) ? ?| ?Stage five ? | ? Stage five ?+ ---+ ---+ -------+ *Each stage assumes the associated GFR level has been in effect for at least three months. ?Stages 1 to 5, with or without kidney disease, indicate chronic kidney disease. Notes: Determination of stages one and two (with eGFR >59mL/min/1.73 m2) requires estimation of kidney damage for at least three months as defined by structural or functional abnormalities of the kidney, manifested by either:Pathological abnormalities or Markers of kidney damage (including abnormalities in the composition of the blood or urine or abnormalities in imaging tests). Lab Interpretation (test code = 87217-7) [facility] [id number] 10:27:02* Test Item Value Reference Range Interpretation Comme nts PROTIME PATIENT (test code = 5964-2) 12.7 See_Comment H [Automated messa ge] The system which generated this result transmitted reference range: 10.1 - 12.6 Seconds. The reference range was not used to interpret this result as normal/abnormal. INR (test code = 6301-6) 1.2 Normal INR <1.1; Warfarin Therapeutic range 2.0 to 3.0 or 2.5 to 3.5, depending upon the indications. Lab Interpretation (test code = 28751-6) [facility] [id number] 10:27:02* Test Item Value Reference Range Interpretation Comme nts PROTIME PATIENT (test code = 5964-2) 12.7 See_Comment H [Automated messa ge] The system which generated this result transmitted reference range: 10.1 - 12.6 Seconds. The reference range was not used to interpret this result as normal/abnormal. INR (test code = 6301-6) 1.2 Normal INR <1.1; Warfarin Therapeutic range 2.0 to 3.0 or 2.5 to 3.5, depending upon the indications. Lab Interpretation (test code = 02554-2) [facility] / [id number] 10:27:02* Test Item Value Reference Range Interpretation Comme nts PROTIME PATIENT (test code = 5964-2) 12.7 See_Comment H [Automated messa ge] The system which generated this result transmitted reference range: 10.1 - 12.6 Seconds. The reference range was not used to interpret this result as normal/abnormal. INR (test code = 6301-6) 1.2 Normal INR <1.1; Warfarin Therapeutic range 2.0 to 3.0 or 2.5 to 3.5, depending upon the indications. Lab Interpretation (test code = 35094-9) [facility] [id number] 10:19:03* Test Item Value Reference Range Interpretation Comme nts WBC (test code = 6690-2) 4.46 See_Comment [Automated messa ge] The system which generated this result transmitted reference range: 4.20 - 10.70 10*3/?L. The reference range was not used to interpret this result as normal/abnormal. RBC (test code = 789-8) 3.47 See_Comment L [Automated messa ge] The system which generated this result transmitted reference range: 4.26 - 5.52 10*6/?L. The reference range was not used to interpret this result as normal/abnormal. HGB (test code = 718-7) 12.1 g/dL 12.2-16.4 L HCT (test code = 4544-3) 35.5 % 38.4-49.3 L MCV (test code = 787-2) 102.3 fL 81.7-95.6 H MCH (test code = 785-6) 34.9 pg 26.1-32.7 H MCHC (test code = 786-4) 34.1 g/dL 31.2-35.0 RDW-SD (test code = 33456-4) 62.6 fL 38.5-51.6 H RDW-CV (test code = 788-0) 16.5 % 12.1-15.4 H PLT (test code = 777-3) 198 See_Comment [Automated messa ge] The system which generated this result transmitted reference range: 150 - 328 10*3/?L. The reference range was not used to interpret this result as normal/abnormal. MPV (test code = 78023-9) 8.6 fL 9.8-13.0 L NRBC/100 WBC (test code = 9955564818) 0.0 See_Comment [Automated [employer] ssage] The system which generated this result transmitted reference range: 0.0 - 10.0 /100 WBCs. The reference range was not used to interpret this result as normal/abnormal. NRBC x10^3 (test code = 9979802787) See_Comment [Automated messa ge] The system which generated this result transmitted reference range: 10*3/?L. The reference range was not used to interpret this result as normal/abnormal. GRAN MAT (NEUT) % (test code = 770-8) 50.1 % IMM GRAN % (test code = 3226839424) 0.20 % LYMPH % (test code = 736-9) 35.9 % MONO % (test code = 5905-5) 10.5 % EOS % (test code = 713-8) 3.1 % BASO % (test code = 706-2) 0.2 % GRAN MAT x10^3(ANC) (test code = 5509535535) 2.23 10*3/uL 1.99-6.95 IMM GRAN x10^3 (test code = 0911160216) 0.00-0.06 LYMPH x10^3 (test code = 731-0) 1.60 10*3/uL 1.09-3.23 MONO x10^3 (test code = 742-7) 0.47 10*3/uL 0.36-1.02 EOS x10^3 (test code = 711-2) 0.14 10*3/uL 0.06-0.53 BASO x10^3 (test code = 704-7) 0.01-0.09 Lab Interpretation (test code = 48741-6) Abnormal [facility] WITH [id number] 10:19:03* Test Item Value Reference Range Interpretation Comme nts WBC (test code = 6690-2) 4.46 See_Comment [Automated messa ge] The system which generated this result transmitted reference range: 4.20 - 10.70 10*3/?L. The reference range was not used to interpret this result as normal/abnormal. RBC (test code = 789-8) 3.47 See_Comment L [Automated messa ge] The system which generated this result transmitted reference range: 4.26 - 5.52 10*6/?L. The reference range was not used to interpret this result as normal/abnormal. HGB (test code = 718-7) 12.1 g/dL 12.2-16.4 L HCT (test code = 4544-3) 35.5 % 38.4-49.3 L MCV (test code = 787-2) 102.3 fL 81.7-95.6 H MCH (test code = 785-6) 34.9 pg 26.1-32.7 H MCHC (test code = 786-4) 34.1 g/dL 31.2-35.0 RDW-SD (test code = 65581-6) 62.6 fL 38.5-51.6 H RDW-CV (test code = 788-0) 16.5 % 12.1-15.4 H PLT (test code = 777-3) 198 See_Comment [Automated messa ge] The system which generated this result transmitted reference range: 150 - 328 10*3/?L. The reference range was not used to interpret this result as normal/abnormal. MPV (test code = 28263-5) 8.6 fL 9.8-13.0 L NRBC/100 WBC (test code = 3030689077) 0.0 See_Comment [Automated me ssage] The system which generated this result transmitted reference range: 0.0 - 10.0 /100 WBCs. The reference range was not used to interpret this result as normal/abnormal. NRBC x10^3 (test code = 7879885731) See_Comment [Automated messa ge] The system which generated this result transmitted reference range: 10*3/?L. The reference range was not used to interpret this result as normal/abnormal. GRAN MAT (NEUT) % (test code = 770-8) 50.1 % IMM GRAN % (test code = 9395680745) 0.20 % LYMPH % (test code = 736-9) 35.9 % MONO % (test code = 5905-5) 10.5 % EOS % (test code = 713-8) 3.1 % BASO % (test code = 706-2) 0.2 % GRAN MAT x10^3(ANC) (test code = 3862299770) 2.23 10*3/uL 1.99-6.95 IMM GRAN x10^3 (test code = 5622031311) 0.00-0.06 LYMPH x10^3 (test code = 731-0) 1.60 10*3/uL 1.09-3.23 MONO x10^3 (test code = 742-7) 0.47 10*3/uL 0.36-1.02 EOS x10^3 (test code = 711-2) 0.14 10*3/uL 0.06-0.53 BASO x10^3 (test code = 704-7) 0.01-0.09 Lab Interpretation (test code = 58582-5) Abnormal [facility] WITH [id number] 10:19:03* Test Item Value Reference Range Interpretation Comme nts WBC (test code = 6690-2) 4.46 See_Comment [Automated messa ge] The system which generated this result transmitted reference range: 4.20 - 10.70 10*3/?L. The reference range was not used to interpret this result as normal/abnormal. RBC (test code = 789-8) 3.47 See_Comment L [Automated messa ge] The system which generated this result transmitted reference range: 4.26 - 5.52 10*6/?L. The reference range was not used to interpret this result as normal/abnormal. HGB (test code = 718-7) 12.1 g/dL 12.2-16.4 L HCT (test code = 4544-3) 35.5 % 38.4-49.3 L MCV (test code = 787-2) 102.3 fL 81.7-95.6 H MCH (test code = 785-6) 34.9 pg 26.1-32.7 H MCHC (test code = 786-4) 34.1 g/dL 31.2-35.0 RDW-SD (test code = 13388-6) 62.6 fL 38.5-51.6 H RDW-CV (test code = 788-0) 16.5 % 12.1-15.4 H PLT (test code = 777-3) 198 See_Comment [Automated messa ge] The system which generated this result transmitted reference range: 150 - 328 10*3/?L. The reference range was not used to interpret this result as normal/abnormal. MPV (test code = 43920-6) 8.6 fL 9.8-13.0 L NRBC/100 WBC (test code = 5901257909) 0.0 See_Comment [Automated me ssage] The system which generated this result transmitted reference range: 0.0 - 10.0 /100 WBCs. The reference range was not used to interpret this result as normal/abnormal. NRBC x10^3 (test code = 7905215316) See_Comment [Automated messa ge] The system which generated this result transmitted reference range: 10*3/?L. The reference range was not used to interpret this result as normal/abnormal. GRAN MAT (NEUT) % (test code = 770-8) 50.1 % IMM GRAN % (test code = 0045654382) 0.20 % LYMPH % (test code = 736-9) 35.9 % MONO % (test code = 5905-5) 10.5 % EOS % (test code = 713-8) 3.1 % BASO % (test code = 706-2) 0.2 % GRAN MAT x10^3(ANC) (test code = 1159869662) 2.23 10*3/uL 1.99-6.95 IMM GRAN x10^3 (test code = 9978947510) 0.00-0.06 LYMPH x10^3 (test code = 731-0) 1.60 10*3/uL 1.09-3.23 MONO x10^3 (test code = 742-7) 0.47 10*3/uL 0.36-1.02 EOS x10^3 (test code = 711-2) 0.14 10*3/uL 0.06-0.53 BASO x10^3 (test code = 704-7) 0.01-0.09 Lab Interpretation (test code = 15702-7) Abnormal [place] [id number] 17:26:32* Test Item Value Reference Range Interpretation Comme nts FREE T4 (test code = 2999782230) 1.01 See_Comment [Automated messa ge] The system which generated this result transmitted reference range: 0.78 - 2.20 ng/dL:. The reference range was not used to interpret this result as normal/abnormal. Lab Interpretation (test code = 66566-6) Normal [facility] 17:26:32* Test Item Value Reference Range Interpretation Comme nts FREE T4 (test code = 5197248557) 1.01 See_Comment [Automated messa ge] The system which generated this result transmitted reference range: 0.78 - 2.20 ng/dL:. The reference range was not used to interpret this result as normal/abnormal. Lab Interpretation (test code = 54773-3) Normal [place] [id number] 17:26:32* Test Item Value Reference Range Interpretation Comme nts FREE T4 (test code = 8173273543) 1.01 See_Comment [Automated [place] ge] The system which generated this result transmitted reference range: 0.78 - 2.20 ng/dL:. The reference range was not used to interpret this result as normal/abnormal. Lab Interpretation (test code = 22492-0) Normal [facility] GLUCOSE (AUTOMATED)2022-11-21 16:32:47* Test Item Value Reference Range Interpretation Comme nts POCT GLU (test code = 8372589195) 112 mg/dL 70-110 H Lab Interpretation (test cod e = 46110-5) Abnormal [facility] GLUCOSE (AUTOMATED)2022-11-21 16:32:47* Test Item Value Reference Range Interpretation Comme nts POCT GLU (test code = 2767125451) 112 mg/dL 70-110 H Lab Interpretation (test cod e = 67911-9) Abnormal [facility] GLUCOSE (AUTOMATED)2022-11-21 16:32:47* Test Item Value Reference Range Interpretation Comme nts POCT GLU (test code = 6645115134) 112 mg/dL 70-110 H Lab Interpretation (test cod e = 17357-5) Abnormal [facility] GLUCOSE (AUTOMATED)2022-11-21 13:14:37* Test Item Value Reference Range Interpretation Comme nts POCT GLU (test code = 4718837300) 108 mg/dL 70-110 Lab Interpretation (test cod e = 18148-4) Normal [facility] GLUCOSE (AUTOMATED)2022-11-21 13:14:37* Test Item Value Reference Range Interpretation Comme nts POCT GLU (test code = [id number]) 108 mg/dL 70-110 Lab Interpretation (test cod e = 40435-5) Normal [facility] GLUCOSE (AUTOMATED)2022-11-21 13:14:37* Test Item Value Reference Range Interpretation Comme nts POCT GLU (test code = [id number]) 108 mg/dL 70-110 Lab Interpretation (test cod e = 91630-6) [id number] 02:52:20 * Test Item Value Reference Range Interpretation Comme nts TSH (test code = [id number]) 10.50 See_Comment H Biotin has been reported to cause a negative bias, interpret results relative to patient's use of biotin. [Automated message] The system which generated this result transmitted reference range: 0.45 - 4.70 mIU/L. The reference range was not used to interpret this result as normal/abnormal. Lab Interpretation (test code = 01082-1) [facility] [id number] 02:52:20 * Test Item Value Reference Range Interpretation Comme nts TSH (test code = 3583798482) 10.50 See_Comment H Biotin has been reported to cause a negative bias, interpret results relative to patient's use of biotin. [Automated message] The system which generated this result transmitted reference range: 0.45 - 4.70 mIU/L. The reference range was not used to interpret this result as normal/abnormal. Lab Interpretation (test code = 00115-3) [facility] [id number] 02:52:20 * Test Item Value Reference Range Interpretation Comme nts TSH (test code = 4179479777) 10.50 See_Comment H Biotin has been reported to cause a negative bias, interpret results relative to patient's use of biotin. [Automated message] The system which generated this result transmitted reference range: 0.45 - 4.70 mIU/L. The reference range was not used to interpret this result as normal/abnormal. Lab Interpretation (test code = 40860-9) Abnormal [facility] GLUCOSE (AUTOMATED)2022-11-21 01:24:54* Test Item Value Reference Range Interpretation Comme nts POCT GLU (test code = 2004298011) 90 mg/dL 70-110 Lab Interpretation (test cod e = 01391-2) Normal [facility] GLUCOSE (AUTOMATED)2022-11-21 01:24:54* Test Item Value Reference Range Interpretation Comme nts POCT GLU (test code = 8224637263) 90 mg/dL 70-110 Lab Interpretation (test cod e = 10624-1) Normal [facility] GLUCOSE (AUTOMATED)2022-11-21 01:24:54* Test Item Value Reference Range Interpretation Comme nts POCT GLU (test code = 4876874811) 90 mg/dL 70-110 Lab Interpretation (test cod e = 38971-8) [facility] [id number] 15:13:38* Test Item Value Reference Range Interpretation Comme nts TROPONIN I (test code = 1671340345) 0.012 ng/mL <=0.034 MARCUS (test code = MARCUS) Reference (Normal) Range (defined by the 99th percentile reference limit): <= 0.034 ng/mL Note: Cardiac troponin begins to rise 3-4 hours after the onset of ischemia. Repeat in 4-6 hours if the sample was drawn within 3-4 hours of the onset of the symptom and found normal. Diagnosis of myocardial injury is made with acute changes in cTn concentrations with at least one serial sample above the 99th percentile upper reference limit (URL), taken together with the patient's clinical presentation. Biotin has been reported to cause a negative bias, interpret results relative to patient's use of biotin. Lab Interpretation (test code = 72674-0) Normal [facility] [id number] 15:13:38* Test Item Value Reference Range Interpretation Comme nts TROPONIN I (test code = 1149141403) 0.012 ng/mL <=0.034 MARCUS (test code = MARCUS) Reference (Normal) Range (defined by the 99th percentile reference limit): <= 0.034 ng/mL Note: Cardiac troponin begins to rise 3-4 hours after the onset of ischemia. Repeat in 4-6 hours if the sample was drawn within 3-4 hours of the onset of the symptom and found normal. Diagnosis of myocardial injury is made with acute changes in cTn concentrations with at least one serial sample above the 99th percentile upper reference limit (URL), taken together with the patient's clinical presentation. Biotin has been reported to cause a negative bias, interpret results relative to patient's use of biotin. Lab Interpretation (test code = 23196-8) [facility] [id number] 15:13:38* Test Item Value Reference Range Interpretation Comme nts TROPONIN I (test code = 8901838601) 0.012 ng/mL <=0.034 MARCUS (test code = MARCUS) Reference (Normal) Range (defined by the 99th percentile reference limit): <= 0.034 ng/mL Note: Cardiac troponin begins to rise 3-4 hours after the onset of ischemia. Repeat in 4-6 hours if the sample was drawn within 3-4 hours of the onset of the symptom and found normal. Diagnosis of myocardial injury is made with acute changes in cTn concentrations with at least one serial sample above the 99th percentile upper reference limit (URL), taken together with the patient's clinical presentation. Biotin has been reported to cause a negative bias, interpret results relative to patient's use of biotin. Lab Interpretation (test code = 45131-5) [facility] [id number] 15:10:21* Test Item Value Reference Range Interpretation Comme nts NT-proBNP (test code = 6574301472) 377 pg/mL <=450 MARCUS (test code = MARCUS) Biotin has been reported to cause a negative bias, interpret results relative to patient's use of biotin. Lab Interpretation (test code = 08642-1) [facility] [id number] 15:10:21* Test Item Value Reference Range Interpretation Comme nts NT-proBNP (test code = 8992080183) 377 pg/mL <=450 MARCUS (test code = MARCUS) Biotin has been reported to cause a negative bias, interpret results relative to patient's use of biotin. Lab Interpretation (test code = 62509-3) [facility] [id number] 15:10:21* Test Item Value Reference Range Interpretation Comme nts NT-proBNP (test code = 0195785507) 377 pg/mL <=450 MARCUS (test code = MARCUS) Biotin has been reported to cause a negative bias, interpret results relative to patient's use of biotin. Lab Interpretation (test code = 14441-5) Normal [facility]. METABOLIC PANEL (84393)2022-11-20 15:03:59* Test Item Value Reference Range Interpretation Comme nts NA (test code = 8390270613) 136 mmol/L 135-145 K (test code = 0982907560) 4.5 mmol/L 3.5-5.0 CL (test code = 3506098130) 103 mmol/L 98-108 CO2 TOTAL (test code = 8416436612) 24 mmol/L 23-31 AGAP (test code = 0220455280) 9 2-16 BUN (test code = 5839279076) 28 mg/dL 7-23 H GLUCOSE (test code = 3929317359) 119 mg/dL 70-110 H CREATININE (test code = 6438135733) 1.17 mg/dL 0.60-1.25 TOTAL BILI (test code = 3782974107) 0.8 mg/dL 0.1-1.1 CALCIUM (test code = 7116230735) 9.0 mg/dL 8.6-10.6 T PROTEIN (test code = 8937557553) 6.8 g/dL 6.3-8.2 ALBUMIN (test code = 6720325618) 4.0 g/dL 3.5-5.0 ALK PHOS (test code = 2609392580) 29 U/L 34-122 L ALTv (test code = 1742-6) 21 U/L 5-50 AST(SGOT) (test code = 9814725613) 36 U/L 13-40 eGFR (test code = 3333412608) 59.7 mL/min/1.73m2 MARCUS (test code = MARCUS) Association of Glomerular Filtration Rate (GFR) and Staging of Kidney Disease* + --+ --+ ------+| GFR (mL/min/1.73 m2) ?| With Kidney Damage ?| ?Without Kidney Damage+ --------+ --------+ +| ?>90 ?| ?Stage one ?| ? Normal ?+ ---+ ---+ -------+| ?60-89 ?| ?Stage two ?| ? Decreased GFR ? + --+ --+ ------+| ?30-59 ?| ?Stage three ?| ? Stage three ? + --+ --+ ------+| ?15-29 ?| ?Stage four ? | ? Stage four ?+ ---+ ---+ -------+| ?<15 (or dialysis) ? ?| ?Stage five ? | ? Stage five ?+ ---+ ---+ -------+ *Each stage assumes the associated GFR level has been in effect for at least three months. ?Stages 1 to 5, with or without kidney disease, indicate chronic kidney disease. Notes: Determination of stages one and two (with eGFR >59mL/min/1.73 m2) requires estimation of kidney damage for at least three months as defined by structural or functional abnormalities of the kidney, manifested by either:Pathological abnormalities or Markers of kidney damage (including abnormalities in the composition of the blood or urine or abnormalities in imaging tests). Lab Interpretation (test code = 15736-3) [facility] 15:03:59* Test Item Value Reference Range Interpretation Comme nts MAGNESIUM (test code = 2996807053) 2.1 mg/dL 1.7-2.4 Lab Interpretation (test cod e = 28232-6) [facility]OLIC [facility] (01084)2022-11-20 15:03:59* Test Item Value Reference Range Interpretation Comme nts NA (test code = 1670181137) 136 mmol/L 135-145 K (test code = 3571598889) 4.5 mmol/L 3.5-5.0 CL (test code = 6202614675) 103 mmol/L 98-108 CO2 TOTAL (test code = 1862926877) 24 mmol/L 23-31 AGAP (test code = 4386042550) 9 2-16 BUN (test code = 9254482274) 28 mg/dL 7-23 H GLUCOSE (test code = 5880396672) 119 mg/dL 70-110 H CREATININE (test code = 1830965500) 1.17 mg/dL 0.60-1.25 TOTAL BILI (test code = 1423940632) 0.8 mg/dL 0.1-1.1 CALCIUM (test code = 0663134754) 9.0 mg/dL 8.6-10.6 T PROTEIN (test code = 7197064815) 6.8 g/dL 6.3-8.2 ALBUMIN (test code = 1370587257) 4.0 g/dL 3.5-5.0 ALK PHOS (test code = 8892655111) 29 U/L 34-122 L ALTv (test code = 1742-6) 21 U/L 5-50 AST(SGOT) (test code = 7305372209) 36 U/L 13-40 eGFR (test code = 0966964650) 59.7 mL/min/1.73m2 MARCUS (test code = MARCUS) Association of Glomerular Filtration Rate (GFR) and Staging of Kidney Disease* + --+ --+ ------+| GFR (mL/min/1.73 m2) ?| With Kidney Damage ?| ?Without Kidney Damage+ --------+ --------+ +| ?>90 ?| ?Stage one ?| ? Normal ?+ ---+ ---+ -------+| ?60-89 ?| ?Stage two ?| ? Decreased GFR ? + --+ --+ ------+| ?30-59 ?| ?Stage three ?| ? Stage three ? + --+ --+ ------+| ?15-29 ?| ?Stage four ? | ? Stage four ?+ ---+ ---+ -------+| ?<15 (or dialysis) ? ?| ?Stage five ? | ? Stage five ?+ ---+ ---+ -------+ *Each stage assumes the associated GFR level has been in effect for at least three months. ?Stages 1 to 5, with or without kidney disease, indicate chronic kidney disease. Notes: Determination of stages one and two (with eGFR >59mL/min/1.73 m2) requires estimation of kidney damage for at least three months as defined by structural or functional abnormalities of the kidney, manifested by either:Pathological abnormalities or Markers of kidney damage (including abnormalities in the composition of the blood or urine or abnormalities in imaging tests). Lab Interpretation (test code = 35401-7) [facility] 15:03:59* Test Item Value Reference Range Interpretation Comme nts MAGNESIUM (test code = 9382307346) 2.1 mg/dL 1.7-2.4 Lab Interpretation (test cod e = 15069-8) [facility]OL[facility] (84713)2022-11-20 15:03:59* Test Item Value Reference Range Interpretation Comme nts NA (test code = 1742333567) 136 mmol/L 135-145 K (test code = 4149847325) 4.5 mmol/L 3.5-5.0 CL (test code = 8910514783) 103 mmol/L 98-108 CO2 TOTAL (test code = 0596510295) 24 mmol/L 23-31 AGAP (test code = 4827313486) 9 2-16 BUN (test code = 6219888223) 28 mg/dL 7-23 H GLUCOSE (test code = 8571306576) 119 mg/dL 70-110 H CREATININE (test code = 2253859763) 1.17 mg/dL 0.60-1.25 TOTAL BILI (test code = 8726635852) 0.8 mg/dL 0.1-1.1 CALCIUM (test code = 1932489265) 9.0 mg/dL 8.6-10.6 T PROTEIN (test code = 9307364435) 6.8 g/dL 6.3-8.2 ALBUMIN (test code = 5343644315) 4.0 g/dL 3.5-5.0 ALK PHOS (test code = 8133386342) 29 U/L 34-122 L ALTv (test code = 1742-6) 21 U/L 5-50 AST(SGOT) (test code = 8535054262) 36 U/L 13-40 eGFR (test code = 2435415097) 59.7 mL/min/1.73m2 MARCUS (test code = MARCUS) Association of Glomerular Filtration Rate (GFR) and Staging of Kidney Disease* + --+ --+ ------+| GFR (mL/min/1.73 m2) ?| With Kidney Damage ?| ?Without Kidney Damage+ --------+ --------+ +| ?>90 ?| ?Stage one ?| ? Normal ?+ ---+ ---+ -------+| ?60-89 ?| ?Stage two ?| ? Decreased GFR ? + --+ --+ ------+| ?30-59 ?| ?Stage three ?| ? Stage three ? + --+ --+ ------+| ?15-29 ?| ?Stage four ? | ? Stage four ?+ ---+ ---+ -------+| ?<15 (or dialysis) ? ?| ?Stage five ? | ? Stage five ?+ ---+ ---+ -------+ *Each stage assumes the associated GFR level has been in effect for at least three months. ?Stages 1 to 5, with or without kidney disease, indicate chronic kidney disease. Notes: Determination of stages one and two (with eGFR >59mL/min/1.73 m2) requires estimation of kidney damage for at least three months as defined by structural or functional abnormalities of the kidney, manifested by either:Pathological abnormalities or Markers of kidney damage (including abnormalities in the composition of the blood or urine or abnormalities in imaging tests). Lab Interpretation (test code = 43550-2) [facility] 15:03:59* Test Item Value Reference Range Interpretation Comme nts MAGNESIUM (test code = 7066927740) 2.1 mg/dL 1.7-2.4 Lab Interpretation (test cod e = 10670-9) [facility] [id number] 14:46:33* Test Item Value Reference Range Interpretation Comme nts WBC (test code = 6690-2) 5.14 See_Comment [Automated messa ge] The system which generated this result transmitted reference range: 4.20 - 10.70 10*3/?L. The reference range was not used to interpret this result as normal/abnormal. RBC (test code = 789-8) 3.87 See_Comment L [Automated messa ge] The system which generated this result transmitted reference range: 4.26 - 5.52 10*6/?L. The reference range was not used to interpret this result as normal/abnormal. HGB (test code = 718-7) 13.2 g/dL 12.2-16.4 HCT (test code = 4544-3) 39.3 % 38.4-49.3 MCV (test code = 787-2) 101.6 fL 81.7-95.6 H MCH (test code = 785-6) 34.1 pg 26.1-32.7 H MCHC (test code = 786-4) 33.6 g/dL 31.2-35.0 RDW-SD (test code = 29899-2) 61.6 fL 38.5-51.6 H RDW-CV (test code = 788-0) 16.5 % 12.1-15.4 H PLT (test code = 777-3) 246 See_Comment [Automated messa ge] The system which generated this result transmitted reference range: 150 - 328 10*3/?L. The reference range was not used to interpret this result as normal/abnormal. MPV (test code = 47579-6) 9.3 fL 9.8-13.0 L NRBC/100 WBC (test code = 1607230866) 0.0 See_Comment [Automated me ssage] The system which generated this result transmitted reference range: 0.0 - 10.0 /100 WBCs. The reference range was not used to interpret this result as normal/abnormal. NRBC x10^3 (test code = 8677360235) See_Comment [Automated messa ge] The system which generated this result transmitted reference range: 10*3/?L. The reference range was not used to interpret this result as normal/abnormal. GRAN MAT (NEUT) % (test code = 770-8) 52.4 % IMM GRAN % (test code = 7925902859) 0.20 % LYMPH % (test code = 736-9) 34.4 % MONO % (test code = 5905-5) 9.1 % EOS % (test code = 713-8) 3.3 % BASO % (test code = 706-2) 0.6 % GRAN MAT x10^3(ANC) (test code = 5557399937) 2.69 10*3/uL 1.99-6.95 IMM GRAN x10^3 (test code = 2634024596) 0.00-0.06 LYMPH x10^3 (test code = 731-0) 1.77 10*3/uL 1.09-3.23 MONO x10^3 (test code = 742-7) 0.47 10*3/uL 0.36-1.02 EOS x10^3 (test code = 711-2) 0.17 10*3/uL 0.06-0.53 BASO x10^3 (test code = 704-7) 0.03 10*3/uL 0.01-0.09 Lab Interpretation (test code = 72495-1) Abnormal [facility] WITH [id number] 14:46:33* Test Item Value Reference Range Interpretation Comme nts WBC (test code = 6690-2) 5.14 See_Comment [Automated messa ge] The system which generated this result transmitted reference range: 4.20 - 10.70 10*3/?L. The reference range was not used to interpret this result as normal/abnormal. RBC (test code = 789-8) 3.87 See_Comment L [Automated messa ge] The system which generated this result transmitted reference range: 4.26 - 5.52 10*6/?L. The reference range was not used to interpret this result as normal/abnormal. HGB (test code = 718-7) 13.2 g/dL 12.2-16.4 HCT (test code = 4544-3) 39.3 % 38.4-49.3 MCV (test code = 787-2) 101.6 fL 81.7-95.6 H MCH (test code = 785-6) 34.1 pg 26.1-32.7 H MCHC (test code = 786-4) 33.6 g/dL 31.2-35.0 RDW-SD (test code = 39354-4) 61.6 fL 38.5-51.6 H RDW-CV (test code = 788-0) 16.5 % 12.1-15.4 H PLT (test code = 777-3) 246 See_Comment [Automated messa ge] The system which generated this result transmitted reference range: 150 - 328 10*3/?L. The reference range was not used to interpret this result as normal/abnormal. MPV (test code = 58416-4) 9.3 fL 9.8-13.0 L NRBC/100 WBC (test code = 4718749105) 0.0 See_Comment [Automated Pin[employer] ssage] The system which generated this result transmitted reference range: 0.0 - 10.0 /100 WBCs. The reference range was not used to interpret this result as normal/abnormal. NRBC x10^3 (test code = 2672436011) See_Comment [Automated messa ge] The system which generated this result transmitted reference range: 10*3/?L. The reference range was not used to interpret this result as normal/abnormal. GRAN MAT (NEUT) % (test code = 770-8) 52.4 % IMM GRAN % (test code = 8104264232) 0.20 % LYMPH % (test code = 736-9) 34.4 % MONO % (test code = 5905-5) 9.1 % EOS % (test code = 713-8) 3.3 % BASO % (test code = 706-2) 0.6 % GRAN MAT x10^3(ANC) (test code = 0842718175) 2.69 10*3/uL 1.99-6.95 IMM GRAN x10^3 (test code = 7487309778) 0.00-0.06 LYMPH x10^3 (test code = 731-0) 1.77 10*3/uL 1.09-3.23 MONO x10^3 (test code = 742-7) 0.47 10*3/uL 0.36-1.02 EOS x10^3 (test code = 711-2) 0.17 10*3/uL 0.06-0.53 BASO x10^3 (test code = 704-7) 0.03 10*3/uL 0.01-0.09 Lab Interpretation (test code = 36207-5) Abnormal [facility] WITH [id number] 14:46:33* Test Item Value Reference Range Interpretation Comme nts WBC (test code = 6690-2) 5.14 See_Comment [Automated messa ge] The system which generated this result transmitted reference range: 4.20 - 10.70 10*3/?L. The reference range was not used to interpret this result as normal/abnormal. RBC (test code = 789-8) 3.87 See_Comment L [Automated messa ge] The system which generated this result transmitted reference range: 4.26 - 5.52 10*6/?L. The reference range was not used to interpret this result as normal/abnormal. HGB (test code = 718-7) 13.2 g/dL 12.2-16.4 HCT (test code = 4544-3) 39.3 % 38.4-49.3 MCV (test code = 787-2) 101.6 fL 81.7-95.6 H MCH (test code = 785-6) 34.1 pg 26.1-32.7 H MCHC (test code = 786-4) 33.6 g/dL 31.2-35.0 RDW-SD (test code = 12472-6) 61.6 fL 38.5-51.6 H RDW-CV (test code = 788-0) 16.5 % 12.1-15.4 H PLT (test code = 777-3) 246 See_Comment [Automated messa ge] The system which generated this result transmitted reference range: 150 - 328 10*3/?L. The reference range was not used to interpret this result as normal/abnormal. MPV (test code = 54541-7) 9.3 fL 9.8-13.0 L NRBC/100 WBC (test code = 4384497018) 0.0 See_Comment [Automated Pin[employer]gg ssage] The system which generated this result transmitted reference range: 0.0 - 10.0 /100 WBCs. The reference range was not used to interpret this result as normal/abnormal. NRBC x10^3 (test code = 6428068257) See_Comment [Automated [place] ge] The system which generated this result transmitted reference range: 10*3/?L. The reference range was not used to interpret this result as normal/abnormal. GRAN MAT (NEUT) % (test code = 770-8) 52.4 % IMM GRAN % (test code = 4985281828) 0.20 % LYMPH % (test code = 736-9) 34.4 % MONO % (test code = 5905-5) 9.1 % EOS % (test code = 713-8) 3.3 % BASO % (test code = 706-2) 0.6 % GRAN MAT x10^3(ANC) (test code = 1596172796) 2.69 10*3/uL 1.99-6.95 IMM GRAN x10^3 (test code = 7668337696) 0.00-0.06 LYMPH x10^3 (test code = 731-0) 1.77 10*3/uL 1.09-3.23 MONO x10^3 (test code = 742-7) 0.47 10*3/uL 0.36-1.02 EOS x10^3 (test code = 711-2) 0.17 10*3/uL 0.06-0.53 BASO x10^3 (test code = 704-7) 0.03 10*3/uL 0.01-0.09 Lab Interpretation (test code = 08202-9) [facility] (44620)2022-07-28 15:17:55* Test Item Value Reference Range Interpretation Comme nts NA (test code = 8721534570) 134 mmol/L 135-145 L K (test code = 3481647976) 4.6 mmol/L 3.5-5.0 CL (test code = 8425041802) 101 mmol/L 98-108 CO2 TOTAL (test code = 0570347680) 28 mmol/L 23-31 AGAP (test code = 6118369947) 2-16 BUN (test code = 1436710684) 17 mg/dL 7-23 GLUCOSE (test code = 4922079474) 123 mg/dL 70-110 H CREATININE (test code = 6623614611) 1.12 mg/dL 0.60-1.25 TOTAL BILI (test code = 1543444074) 0.6 mg/dL 0.1-1.1 CALCIUM (test code = 3003770696) 8.7 mg/dL 8.6-10.6 T PROTEIN (test code = 4834313949) 6.8 g/dL 6.3-8.2 ALBUMIN (test code = 5362816263) 3.9 g/dL 3.5-5.0 ALK PHOS (test code = 3640114132) 37 U/L 34-122 ALTv (test code = 1742-6) 18 U/L 5-50 AST(SGOT) (test code = 1452037591) 36 U/L 13-40 eGFR (test code = 5406279492) mL/min/1.73m2 MARCUS (test code = MARCUS) Association of Glomerular Filtration Rate (GFR) and Staging of Kidney Disease* + --+ --+ ------+| GFR (mL/min/1.73 m2) ?| With Kidney Damage ?| ?Without Kidney Damage+ --------+ --------+ +| ?>90 ?| ?Stage one ?| ? Normal ?+ ---+ ---+ -------+| ?60-89 ?| ?Stage two ?| ? Decreased GFR ? + --+ --+ ------+| ?30-59 ?| ?Stage three ?| ? Stage three ? + --+ --+ ------+| ?15-29 ?| ?Stage four ? | ? Stage four ?+ ---+ ---+ -------+| ?<15 (or dialysis) ? ?| ?Stage five ? | ? Stage five ?+ ---+ ---+ -------+ *Each stage assumes the associated GFR level has been in effect for at least three months. ?Stages 1 to 5, with or without kidney disease, indicate chronic kidney disease. Notes: Determination of stages one and two (with eGFR >59mL/min/1.73 m2) requires estimation of kidney damage for at least three months as defined by structural or functional abnormalities of the kidney, manifested by either:Pathological abnormalities or Markers of kidney damage (including abnormalities in the composition of the blood or urine or abnormalities in imaging tests). Lab Interpretation (test code = 18065-6) [facility] 15:17:55* Test Item Value Reference Range Interpretation Comme nts MAGNESIUM (test code = 7272454410) 1.9 mg/dL 1.7-2.4 Lab Interpretation (test cod e = 97219-6) [facility] 15:17:55* Test Item Value Reference Range Interpretation Comme nts PHOSPHORUS (test code = 1496845402) 3.3 mg/dL 2.5-5.0 Lab Interpretation (test cod e = 65255-1) [facility] [id number] 13:53:51* Test Item Value Reference Range Interpretation Comme nts WBC (test code = 6690-2) See_Comment [Automated messa ge] The system which generated this result transmitted reference range: 4.20 - 10.70 10*3/?L. The reference range was not used to interpret this result as normal/abnormal. RBC (test code = 789-8) See_Comment L [Automated messa ge] The system which generated this result transmitted reference range: 4.26 - 5.52 10*6/?L. The reference range was not used to interpret this result as normal/abnormal. HGB (test code = 718-7) 13.7 g/dL 12.2-16.4 HCT (test code = 4544-3) 41.0 % 38.4-49.3 MCV (test code = 787-2) 97.6 fL 81.7-95.6 H MCH (test code = 785-6) 32.6 pg 26.1-32.7 MCHC (test code = 786-4) 33.4 g/dL 31.2-35.0 RDW-SD (test code = 70728-5) 57.1 fL 38.5-51.6 H RDW-CV (test code = 788-0) 16.0 % 12.1-15.4 H PLT (test code = 777-3) See_Comment [Automated messa ge] The system which generated this result transmitted reference range: 150 - 328 10*3/?L. The reference range was not used to interpret this result as normal/abnormal. MPV (test code = 52859-1) 8.5 fL 9.8-13.0 L NRBC/100 WBC (test code = 3557361431) See_Comment [Automated Pin[employer]gg ssage] The system which generated this result transmitted reference range: 0.0 - 10.0 /100 WBCs. The reference range was not used to interpret this result as normal/abnormal. NRBC x10^3 (test code = 0697946424) See_Comment [Automated messa ge] The system which generated this result transmitted reference range: 10*3/?L. The reference range was not used to interpret this result as normal/abnormal. GRAN MAT (NEUT) % (test code = 770-8) 61.4 % IMM GRAN % (test code = 4674550963) 0.30 % LYMPH % (test code = 736-9) 27.5 % MONO % (test code = 5905-5) 7.9 % EOS % (test code = 713-8) 2.4 % BASO % (test code = 706-2) 0.5 % GRAN MAT x10^3(ANC) (test code = 7338233171) 3.55 10*3/uL 1.99-6.95 IMM GRAN x10^3 (test code = 1461543911) 0.00-0.06 LYMPH x10^3 (test code = 731-0) 1.59 10*3/uL 1.09-3.23 MONO x10^3 (test code = 742-7) 0.46 10*3/uL 0.36-1.02 EOS x10^3 (test code = 711-2) 0.14 10*3/uL 0.06-0.53 BASO x10^3 (test code = 704-7) 0.03 10*3/uL 0.01-0.09 Lab Interpretation (test code = 80206-0) Abnormal [facility] WITH [id number] 13:53:51* Test Item Value Reference Range Interpretation Comme nts WBC (test code = 6690-2) See_Comment [Automated messa ge] The system which generated this result transmitted reference range: 4.20 - 10.70 10*3/?L. The reference range was not used to interpret this result as normal/abnormal. RBC (test code = 789-8) See_Comment L [Automated messa ge] The system which generated this result transmitted reference range: 4.26 - 5.52 10*6/?L. The reference range was not used to interpret this result as normal/abnormal. HGB (test code = 718-7) 13.7 g/dL 12.2-16.4 HCT (test code = 4544-3) 41.0 % 38.4-49.3 MCV (test code = 787-2) 97.6 fL 81.7-95.6 H MCH (test code = 785-6) 32.6 pg 26.1-32.7 MCHC (test code = 786-4) 33.4 g/dL 31.2-35.0 RDW-SD (test code = 34325-9) 57.1 fL 38.5-51.6 H RDW-CV (test code = 788-0) 16.0 % 12.1-15.4 H PLT (test code = 777-3) See_Comment [Automated messa ge] The system which generated this result transmitted reference range: 150 - 328 10*3/?L. The reference range was not used to interpret this result as normal/abnormal. MPV (test code = 68199-0) 8.5 fL 9.8-13.0 L NRBC/100 WBC (test code = 0956530938) See_Comment [Automated me ssage] The system which generated this result transmitted reference range: 0.0 - 10.0 /100 WBCs. The reference range was not used to interpret this result as normal/abnormal. NRBC x10^3 (test code = 8380681750) See_Comment [Automated messa ge] The system which generated this result transmitted reference range: 10*3/?L. The reference range was not used to interpret this result as normal/abnormal. GRAN MAT (NEUT) % (test code = 770-8) 61.4 % IMM GRAN % (test code = 9875702509) 0.30 % LYMPH % (test code = 736-9) 27.5 % MONO % (test code = 5905-5) 7.9 % EOS % (test code = 713-8) 2.4 % BASO % (test code = 706-2) 0.5 % GRAN MAT x10^3(ANC) (test code = 0938642476) 3.55 10*3/uL 1.99-6.95 IMM GRAN x10^3 (test code = 0400139276) 0.00-0.06 LYMPH x10^3 (test code = 731-0) 1.59 10*3/uL 1.09-3.23 MONO x10^3 (test code = 742-7) 0.46 10*3/uL 0.36-1.02 EOS x10^3 (test code = 711-2) 0.14 10*3/uL 0.06-0.53 BASO x10^3 (test code = 704-7) 0.03 10*3/uL 0.01-0.09 Lab Interpretation (test code = 55856-2) Abnormal [facility] WITH [id number] 14:40:22* Test Item Value Reference Range Interpretation Comme nts WBC (test code = 6690-2) See_Comment [Automated messa ge] The system which generated this result transmitted reference range: 4.20 - 10.70 10*3/?L. The reference range was not used to interpret this result as normal/abnormal. RBC (test code = 789-8) See_Comment L [Automated messa ge] The system which generated this result transmitted reference range: 4.26 - 5.52 10*6/?L. The reference range was not used to interpret this result as normal/abnormal. HGB (test code = 718-7) 13.6 g/dL 12.2-16.4 HCT (test code = 4544-3) 40.2 % 38.4-49.3 MCV (test code = 787-2) 99.5 fL 81.7-95.6 H MCH (test code = 785-6) 33.7 pg 26.1-32.7 H MCHC (test code = 786-4) 33.8 g/dL 31.2-35.0 RDW-SD (test code = 89954-1) 57.3 fL 38.5-51.6 H RDW-CV (test code = 788-0) 15.4 % 12.1-15.4 PLT (test code = 777-3) See_Comment [Automated messa ge] The system which generated this result transmitted reference range: 150 - 328 10*3/?L. The reference range was not used to interpret this result as normal/abnormal. MPV (test code = 93855-0) 8.6 fL 9.8-13.0 L NRBC/100 WBC (test code = 7633933233) See_Comment [Automated Pinion[employer] ssage] The system which generated this result transmitted reference range: 0.0 - 10.0 /100 WBCs. The reference range was not used to interpret this result as normal/abnormal. NRBC x10^3 (test code = 1686656292) See_Comment [Automated [place] ge] The system which generated this result transmitted reference range: 10*3/?L. The reference range was not used to interpret this result as normal/abnormal. GRAN MAT (NEUT) % (test code = 770-8) 50.8 % IMM GRAN % (test code = 7843828122) 0.40 % LYMPH % (test code = 736-9) 35.9 % MONO % (test code = 5905-5) 8.8 % EOS % (test code = 713-8) 3.7 % BASO % (test code = 706-2) 0.4 % GRAN MAT x10^3(ANC) (test code = 8227131884) 2.78 10*3/uL 1.99-6.95 IMM GRAN x10^3 (test code = 4119912378) 0.00-0.06 LYMPH x10^3 (test code = 731-0) 1.96 10*3/uL 1.09-3.23 MONO x10^3 (test code = 742-7) 0.48 10*3/uL 0.36-1.02 EOS x10^3 (test code = 711-2) 0.20 10*3/uL 0.06-0.53 BASO x10^3 (test code = 704-7) 0.01-0.09 Lab Interpretation (test code = 79940-3) [facility]* Test Item Value Reference Range Interpretation Comme nts MAGNESIUM (test code = 7880136501) 1.9 mg/dL 1.7-2.4 Lab Interpretation (test cod e = 66917-7) [facility] (07907)2022-06-22 16:04:20* Test Item Value Reference Range Interpretation Comme nts NA (test code = 2403176890) 135 mmol/L 135-145 K (test code = 0970841147) 4.7 mmol/L 3.5-5.0 CL (test code = 5380631524) 101 mmol/L 98-108 CO2 TOTAL (test code = 0421621726) 26 mmol/L 23-31 AGAP (test code = 8434314137) 2-16 BUN (test code = 9852383394) 22 mg/dL 7-23 GLUCOSE (test code = 3970512503) 112 mg/dL 70-110 H CREATININE (test code = 1918301069) 1.14 mg/dL 0.60-1.25 TOTAL BILI (test code = 0730932126) 0.5 mg/dL 0.1-1.1 CALCIUM (test code = 2298229685) 9.2 mg/dL 8.6-10.6 T PROTEIN (test code = 4718542013) 6.9 g/dL 6.3-8.2 ALBUMIN (test code = 8963955011) 4.0 g/dL 3.5-5.0 ALK PHOS (test code = 1784357770) 40 U/L 34-122 ALTv (test code = 1742-6) 15 U/L 5-50 AST(SGOT) (test code = 8917592424) 27 U/L 13-40 eGFR (test code = 6339504643) mL/min/1.73m2 MARCUS (test code = MARCUS) Association of Glomerular Filtration Rate (GFR) and Staging of Kidney Disease* + --+ --+ ------+| GFR (mL/min/1.73 m2) ?| With Kidney Damage ?| ?Without Kidney Damage+ --------+ --------+ +| ?>90 ?| ?Stage one ?| ? Normal ?+ ---+ ---+ -------+| ?60-89 ?| ?Stage two ?| ? Decreased GFR ? + --+ --+ ------+| ?30-59 ?| ?Stage three ?| ? Stage three ? + --+ --+ ------+| ?15-29 ?| ?Stage four ? | ? Stage four ?+ ---+ ---+ -------+| ?<15 (or dialysis) ? ?| ?Stage five ? | ? Stage five ?+ ---+ ---+ -------+ *Each stage assumes the associated GFR level has been in effect for at least three months. ?Stages 1 to 5, with or without kidney disease, indicate chronic kidney disease. Notes: Determination of stages one and two (with eGFR >59mL/min/1.73 m2) requires estimation of kidney damage for at least three months as defined by structural or functional abnormalities of the kidney, manifested by either:Pathological abnormalities or Markers of kidney damage (including abnormalities in the composition of the blood or urine or abnormalities in imaging tests). Lab Interpretation (test code = 86378-0) [facility] 16:04:00* Test Item Value Reference Range Interpretation Comme nts PHOSPHORUS (test code = 3537920308) 3.8 mg/dL 2.5-5.0 Lab Interpretation (test cod e = 09041-2) [facility] FMGA3783-05-10 15:22:57* Test Item Value Reference Range Interpretation Comme nts WBC (test code = 6690-2) See_Comment [Automated [employer]] The system which generated this result transmitted reference range: 4.20 - 10.70 10*3/?L. The reference range was not used to interpret this result as normal/abnormal. RBC (test code = 789-8) See_Comment L [Automated messa ge] The system which generated this result transmitted reference range: 4.26 - 5.52 10*6/?L. The reference range was not used to interpret this result as normal/abnormal. HGB (test code = 718-7) 13.9 g/dL 12.2-16.4 HCT (test code = 4544-3) 41.5 % 38.4-49.3 MCV (test code = 787-2) 101.0 fL 81.7-95.6 H MCH (test code = 785-6) 33.8 pg 26.1-32.7 H MCHC (test code = 786-4) 33.5 g/dL 31.2-35.0 RDW-SD (test code = 00134-1) 57.6 fL 38.5-51.6 H RDW-CV (test code = 788-0) 15.6 % 12.1-15.4 H PLT (test code = 777-3) See_Comment [Automated messa ge] The system which generated this result transmitted reference range: 150 - 328 10*3/?L. The reference range was not used to interpret this result as normal/abnormal. MPV (test code = 76838-4) 9.0 fL 9.8-13.0 L NRBC/100 WBC (test code = 1976612207) See_Comment [Automated Pinion[employer]gg ssage] The system which generated this result transmitted reference range: 0.0 - 10.0 /100 WBCs. The reference range was not used to interpret this result as normal/abnormal. NRBC x10^3 (test code = 5263023137) See_Comment [Automated messa ge] The system which generated this result transmitted reference range: 10*3/?L. The reference range was not used to interpret this result as normal/abnormal. GRAN MAT (NEUT) % (test code = 770-8) 60.4 % IMM GRAN % (test code = 3991183897) 0.30 % LYMPH % (test code = 736-9) 27.2 % MONO % (test code = 5905-5) 8.7 % EOS % (test code = 713-8) 3.1 % BASO % (test code = 706-2) 0.3 % GRAN MAT x10^3(ANC) (test code = 2548477981) 3.55 10*3/uL 1.99-6.95 IMM GRAN x10^3 (test code = 7073561921) 0.00-0.06 LYMPH x10^3 (test code = 731-0) 1.60 10*3/uL 1.09-3.23 MONO x10^3 (test code = 742-7) 0.51 10*3/uL 0.36-1.02 EOS x10^3 (test code = 711-2) 0.18 10*3/uL 0.06-0.53 BASO x10^3 (test code = 704-7) 0.01-0.09 Lab Interpretation (test code = 86588-7) [facility] 02:09:03* Test Item Value Reference Range Interpretation Comments D-DIMER (test code = 1680370900) See_Comment [Automated message] The system which generated this result transmitted reference range: <0.41 ?g/mL (FEU). The reference range was not used to interpret this result as normal/abnormal. MARCUS (test code = MARCUS) This test may be used in conjunction with a clinical pretest probability (PTP) assessment model to exclude venous thromboembolism (VTE) in patients suspected of deep venous thrombosis (DVT) and pulmonary embolism (PE) A D-Dimer value less than 0.50 ?g/ml (FEU) has a negative predicative value of 96 to 100% (95% CI)and 97 to 100% (95% CI) as an aid in the diagnosis of deep vein thrombosis (DVT) and pulmonary embolism when there is low or moderate pretest probability of PE or DVT. D-Dimer values are expressed in initial fibrinogen equivalent units (FEU)" The assay results should be used with other information, including the clinical context, in forming a diagnosis. Lab Interpretation (test code = 94658-0) [facility] [id number] 01:21:41* Test Item Value Reference Range Interpretation Comments TROPONIN I (test code = 9942900364) 0.009 ng/mL See_Comment [Automated message] The system which generated this result transmitted reference range: <=0.034. The reference range was not used to interpret this result as normal/abnormal. MARCUS (test code = MARCUS) Reference (Normal) Range (defined by the 99th percentile reference limit): <= 0.034 ng/mL Note: Cardiac troponin begins to rise 3-4 hours after the onset of ischemia. Repeat in 4-6 hours if the sample was drawn within 3-4 hours of the onset of the symptom and found normal. Diagnosis of myocardial injury is made with acute changes in cTn concentrations with at least one serial sample above the 99th percentile upper reference limit (URL), taken together with the patient's clinical presentation. Biotin has been reported to cause a negative bias, interpret results relative to patient's use of biotin. Lab Interpretation (test code = 67844-7) [facility]-[id number] 01:18:40* Test Item Value Reference Range Interpretation Comme nts NT-proBNP (test code = 0662531354) 552 pg/mL See_Comment H [Automated message] The system which generated this result transmitted reference range: <=450. The reference range was not used to interpret this result as normal/abnormal. MARCUS (test code = MARCUS) Biotin has been reported to cause a negative bias, interpret results relative to patient's use of biotin. Lab Interpretation (test code = 80040-9) [facility]99545[facility]-18 01:11:04* Test Item Value Reference Range Interpretation Comme nts NA (test code = 9962591168) 136 mmol/L 135-145 K (test code = 1373518331) 4.1 mmol/L 3.5-5 CL (test code = 8242377368) 102 mmol/L 98-108 CO2 TOTAL (test code = 1916447079) 24 mmol/L 23-31 AGAP (test code = 9272394458) 2-16 BUN (test code = 6334508559) 29 mg/dL 7-23 H GLUCOSE (test code = 3236988906) 84 mg/dL 70-110 CREATININE (test code = 2220134131) 1.20 mg/dL 0.6-1.25 TOTAL BILI (test code = 7692608781) 0.5 mg/dL 0.1-1.1 CALCIUM (test code = 4532089725) 8.9 mg/dL 8.6-10.6 T PROTEIN (test code = 1090220375) 6.3 g/dL 6.3-8.2 ALBUMIN (test code = 2947231431) 3.7 g/dL 3.5-5 ALK PHOS (test code = 3906553522) 36 U/L 34-122 ALTv (test code = 1742-6) 17 U/L 5-50 AST(SGOT) (test code = 8748963548) 25 U/L 13-40 eGFR (test code = 6906527728) mL/min/1.73m2 MARCUS (test code = MARCUS) Association of Glomerular Filtration Rate (GFR) and Staging of Kidney Disease* + --+ --+ ------+| GFR (mL/min/1.73 m2) ?| With Kidney Damage ?| ?Without Kidney Damage+ --------+ --------+ +| ?>90 ?| ?Stage one ?| ? Normal ?+ ---+ ---+ -------+| ?60-89 ?| ?Stage two ?| ? Decreased GFR ? + --+ --+ ------+| ?30-59 ?| ?Stage three ?| ? Stage three ? + --+ --+ ------+| ?15-29 ?| ?Stage four ? | ? Stage four ?+ ---+ ---+ -------+| ?<15 (or dialysis) ? ?| ?Stage five ? | ? Stage five ?+ ---+ ---+ -------+ *Each stage assumes the associated GFR level has been in effect for at least three months. ?Stages 1 to 5, with or without kidney disease, indicate chronic kidney disease. Notes: Determination of stages one and two (with eGFR >59mL/min/1.73 m2) requires estimation of kidney damage for at least three months as defined by structural or functional abnormalities of the kidney, manifested by either:Pathological abnormalities or Markers of kidney damage (including abnormalities in the composition of the blood or urine or abnormalities in imaging tests). Lab Interpretation (test code = 84795-9) Abnormal [facility] WITH [id number] 01:10:23* Test Item Value Reference Range Interpretation Comme nts WBC (test code = 6690-2) See_Comment [Automated messa ge] The system which generated this result transmitted reference range: 4.20 - 10.70 10*3/?L. The reference range was not used to interpret this result as normal/abnormal. RBC (test code = 789-8) See_Comment L [Automated messa ge] The system which generated this result transmitted reference range: 4.26 - 5.52 10*6/?L. The reference range was not used to interpret this result as normal/abnormal. HGB (test code = 718-7) 13.7 g/dL 12.2-16.4 HCT (test code = 4544-3) 38.6 % 38.4-49.3 MCV (test code = 787-2) 98.0 fL 81.7-95.6 H MCH (test code = 785-6) 34.8 pg 26.1-32.7 H MCHC (test code = 786-4) 35.5 g/dL 31.2-35 H RDW-SD (test code = 15730-7) 55.5 fL 38.5-51.6 H RDW-CV (test code = 788-0) 15.3 % 12.1-15.4 PLT (test code = 777-3) See_Comment [Automated messa ge] The system which generated this result transmitted reference range: 150 - 328 10*3/?L. The reference range was not used to interpret this result as normal/abnormal. MPV (test code = 66992-2) 9.5 fL 9.8-13 L NRBC/100 WBC (test code = 5143135239) See_Comment [Automated Pinion[employer]gg ssage] The system which generated this result transmitted reference range: 0.0 - 10.0 /100 WBCs. The reference range was not used to interpret this result as normal/abnormal. NRBC x10^3 (test code = 4292484989) See_Comment [Automated messa ge] The system which generated this result transmitted reference range: 10*3/?L. The reference range was not used to interpret this result as normal/abnormal. GRAN MAT (NEUT) % (test code = 770-8) 56.4 % IMM GRAN % (test code = 5626041023) 0.30 % LYMPH % (test code = 736-9) 33.4 % MONO % (test code = 5905-5) 8.4 % EOS % (test code = 713-8) 1.3 % BASO % (test code = 706-2) 0.2 % GRAN MAT x10^3(ANC) (test code = 4736516866) 5.36 10*3/uL 1.99-6.95 IMM GRAN x10^3 (test code = 5012262905) 0.03 10*3/uL 0-0.06 LYMPH x10^3 (test code = 731-0) 3.18 10*3/uL 1.09-3.23 MONO x10^3 (test code = 742-7) 0.80 10*3/uL 0.36-1.02 EOS x10^3 (test code = 711-2) 0.12 10*3/uL 0.06-0.53 BASO x10^3 (test code = 704-7) 0.01-0.09 Lab Interpretation (test code = 51066-4) [facility] 15:53:46* Test Item Value Reference Range Interpretation Comme nts MAGNESIUM (test code = 3989629578) 1.8 mg/dL 1.7-2.4 Lab Interpretation (test cod e = 00089-7) [facility] (88357)2022-04-14 15:53:45* Test Item Value Reference Range Interpretation Comme nts NA (test code = 5126910941) 135 mmol/L 135-145 K (test code = 9010764585) 5.3 mmol/L 3.5-5 H CL (test code = 7021741877) 102 mmol/L 98-108 CO2 TOTAL (test code = 2782261034) 26 mmol/L 23-31 AGAP (test code = 3597123174) 2-16 BUN (test code = 6540584060) 32 mg/dL 7-23 H GLUCOSE (test code = 0883134056) 104 mg/dL 70-110 CREATININE (test code = 7625303862) 1.13 mg/dL 0.6-1.25 TOTAL BILI (test code = 9698276753) 0.4 mg/dL 0.1-1.1 CALCIUM (test code = 5176848477) 9.3 mg/dL 8.6-10.6 T PROTEIN (test code = 2664621303) 6.6 g/dL 6.3-8.2 ALBUMIN (test code = 2206457541) 4.0 g/dL 3.5-5 ALK PHOS (test code = 2332353108) 40 U/L 34-122 ALTv (test code = 1742-6) 19 U/L 5-50 AST(SGOT) (test code = 7360034484) 35 U/L 13-40 eGFR (test code = 9283932926) mL/min/1.73m2 MARCUS (test code = MARCUS) Association of Glomerular Filtration Rate (GFR) and Staging of Kidney Disease* + --+ --+ ------+| GFR (mL/min/1.73 m2) ?| With Kidney Damage ?| ?Without Kidney Damage+ --------+ --------+ +| ?>90 ?| ?Stage one ?| ? Normal ?+ ---+ ---+ -------+| ?60-89 ?| ?Stage two ?| ? Decreased GFR ? + --+ --+ ------+| ?30-59 ?| ?Stage three ?| ? Stage three ? + --+ --+ ------+| ?15-29 ?| ?Stage four ? | ? Stage four ?+ ---+ ---+ -------+| ?<15 (or dialysis) ? ?| ?Stage five ? | ? Stage five ?+ ---+ ---+ -------+ *Each stage assumes the associated GFR level has been in effect for at least three months. ?Stages 1 to 5, with or without kidney disease, indicate chronic kidney disease. Notes: Determination of stages one and two (with eGFR >59mL/min/1.73 m2) requires estimation of kidney damage for at least three months as defined by structural or functional abnormalities of the kidney, manifested by either:Pathological abnormalities or Markers of kidney damage (including abnormalities in the composition of the blood or urine or abnormalities in imaging tests). Lab Interpretation (test code = 49140-4) [facility] 15:53:25* Test Item Value Reference Range Interpretation Comme nts PHOSPHORUS (test code = 9785920329) 3.6 mg/dL 2.5-5 Lab Interpretation (test cod e = 77998-1) [facility] [id number] 14:35:01* Test Item Value Reference Range Interpretation Comme nts WBC (test code = 6690-2) See_Comment [Automated messa ge] The system which generated this result transmitted reference range: 4.20 - 10.70 10*3/?L. The reference range was not used to interpret this result as normal/abnormal. RBC (test code = 789-8) See_Comment L [Automated messa ge] The system which generated this result transmitted reference range: 4.26 - 5.52 10*6/?L. The reference range was not used to interpret this result as normal/abnormal. HGB (test code = 718-7) 13.5 g/dL 12.2-16.4 HCT (test code = 4544-3) 39.4 % 38.4-49.3 MCV (test code = 787-2) 101.0 fL 81.7-95.6 H MCH (test code = 785-6) 34.6 pg 26.1-32.7 H MCHC (test code = 786-4) 34.3 g/dL 31.2-35 RDW-SD (test code = 90344-3) 61.3 fL 38.5-51.6 H RDW-CV (test code = 788-0) 16.6 % 12.1-15.4 H PLT (test code = 777-3) See_Comment H [Automated messa ge] The system which generated this result transmitted reference range: 150 - 328 10*3/?L. The reference range was not used to interpret this result as normal/abnormal. MPV (test code = 59380-8) 8.6 fL 9.8-13 L NRBC/100 WBC (test code = 6560165759) See_Comment [Automated me ssage] The system which generated this result transmitted reference range: 0.0 - 10.0 /100 WBCs. The reference range was not used to interpret this result as normal/abnormal. NRBC x10^3 (test code = 6875974230) See_Comment [Automated messa ge] The system which generated this result transmitted reference range: 10*3/?L. The reference range was not used to interpret this result as normal/abnormal. GRAN MAT (NEUT) % (test code = 770-8) 50.8 % IMM GRAN % (test code = 4071808569) 0.50 % LYMPH % (test code = 736-9) 35.4 % MONO % (test code = 5905-5) 9.4 % EOS % (test code = 713-8) 3.4 % BASO % (test code = 706-2) 0.5 % GRAN MAT x10^3(ANC) (test code = 7384373202) 2.82 10*3/uL 1.99-6.95 IMM GRAN x10^3 (test code = 8244328317) 0.03 10*3/uL 0-0.06 LYMPH x10^3 (test code = 731-0) 1.97 10*3/uL 1.09-3.23 MONO x10^3 (test code = 742-7) 0.52 10*3/uL 0.36-1.02 EOS x10^3 (test code = 711-2) 0.19 10*3/uL 0.06-0.53 BASO x10^3 (test code = 704-7) 0.03 10*3/uL 0.01-0.09 Lab Interpretation (test code = 42681-5) Abnormal [facility] Consult Notes Date/Time Note Provider Source 2023-04-02 14:20:52 2WMCGI4iKoTcVunDyMd/L9xDd9ecCtIVjf/0 CdD2+BHv1gXJoYs3H3vHMorVNAmu2122-94- 25T14:20:52Associated Order(s): CONSULT ADULT PHYSICAL THERAPY Please see PT evaluation. 54934-9Lzewhmq tmbpOA7894-12-31S34:21:11Consult noteTXT1.2.840.799773.1.13.104.2.7.2 .691847|[id number] for patient ulet33856-7Evbxhpb [id number] Johanson [address] Ry[id number] UHYWNFDJBEWVJKYGGEZZTR5859-77-16O95: 21:111.2.840.370331.1.72.3.15|1.2.84 0.185886.1.13.104.2.7.2.727879_18835 17897 Beronica Villeda [facility] 2023-04-02 14:13:58 8AWnHj51f/PUeFGZp/l8jZhYpt9pbgQQ7wkx 5AHJIYR/ugjlQrxHM8Warz4uBKQD3708-53- 25T14:13:58Associated Order(s): CONSULT/REFERRAL PHYSICAL THERAPY Patient agreeable to working with physical therapy. Patient met semi reclined in bed.Recommend nursing staff utilize supervision to safely assist patient with mobility out of the bed or chair.PHYSICAL THERAPY EVALUATIONConsult received, chart reviewed and evaluation complete this date. Patient is referred to PT for evaluation and treatment. Patient is a 82 year old male who presents to hospital for Weakness [R53.1] . Discharge Recommendations: Therapy Needs and Potential:Patient without any skilled PT needs at this time.Challenges to Home Transition: decreased safety awarenessEquipment recommendations:rolling walkerCurrent Functional Status and/or Treatment: AM-PAC 6 Clicks (Raw Score 0=Dependent, 24=Independent; Low function Raw Score 0= Dependent, 32=Independent):Raw Score - Basic Mobility : 15T-Scale Score - Basic Mobility : 36.97 Bed Mobility:Rolling: IndependentBridging: IndependentScooting in supine: IndependentSitting balance GoodScooting to edge of bed: Independent Transfers: Sit to stand: Independent using Rolling WalkerStand to sit: Supervision using Rolling Walker Ambulation: Assisted patient with ambulation as follows: 20 feet using Rolling Walker and Supervision. Therapeutic exercise: patient educated in Fall prevention and General strengthening.After session, patient semi reclined in bed. Call button provided. PLAN OF CARE: PT signs off.See below for complete details. Admit Date: 03/31/2023 Hospital Diagnosis:Weakness [R53.1] PT Diagnosis: WeaknessWeight Bearing Precaution: WBAT General Precautions: FallBracing/Cast present or required:N/APMH: Past Medical History: Diagnosis Date Enlarged prostate Familial adenomatous polyposis 12/06/2020 Hyperlipidemia Hypertension Otitis media Type 2 diabetes mellitus PSH: Past Surgical History: Procedure Laterality Date EXTRACAPSULAR CATARACT EXTRACTION WITH INTRAOCULAR LENS IMPLANT 2014 OU HEMAPORT PLACEMENT N/A 01/17/2021 Surgeon: Yoel Gupta MD; Location: [facility] OR Location TOE AMPUTATION Right 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 Patient/Family verbalizes understanding of condition: Yes PAIN: denies pain before and after sessionCOMMUNICATIONPrimary Language: Malian Able to Verbalize needs: Yes Vision:good; no issues reported Hearing:good; no issues reported ORIENTATION/COGNITION:Oriented to: person, place, date/time, and situation Awake: Yes Alert: Yes Dizzy: No Follows Commands: Yes 1-Step Yes Multi-Step Yes Inconsistent: No NEUROLOGICALLight Touch: within functional limits bilateral LE, BALANCE:Sitting: Static: Good Dynamic: GoodStanding: Static: Good Dynamic: GoodRANGE OF MOTION: deficit: L LE STRENGTH: 4/5 (Good), bilateral LE ENDURANCE: Good, SKIN INTEGRITY: intact, PROBLEM LIST: Decreased strength and Decreased enduranceASSESSMENT: Patient is a 82 year old male seen secondary to the above listed diagnosis. No further inpatient PT needs identified at this time.Rehabilitation Potential: NA as no further therapy needs Goals: The following goals are to maximize independence and safety with functional mobility to eventually return to prior living situation and prior functional status. Defer as no PT needs.Treatment Plan: Evaluation onlyPATIENT EDUCATION: Patient and Family member provided with preferred teaching of verbal information on role of PT, plan of care, . Shows readiness to learn. Verbal instruction teaching provided. Individual is able to read and verbalizes understanding of teaching provided.Total Time Tx Codes in Minutes: 15 minTotal Treatment Time in Minutes: 15 Bárbara Villeda PTTX PT [id number]abil[facility] [phone] (phone) (fax) [id number] [id number]:19:52Consult [id number] for patient cvdf41699-3Clmmkay [address][id number] [id number]: 19:[id number]|1.2.84 [id number] [facility] 2023-04-01 11:50:30 [id number] PdMMwXgJvC/tS2wbeMhOIU+qcvjF0564-32- 24T11:50:30Associated Order(s): CONSULT ADULT OCCUPATIONAL THERAPY OT GENERAL EVALUATIONConsult received via [facility], EMR reviewed and evaluation completed 04/01/23. Patient referred to occupational therapy for evaluation and treatment secondary to weakness. Patient agreeable to participate in occupational therapy.Discharge Recommendations:Therapy Needs and Potential:Not applicable as no further skilled acute care OT needs at this time. Challenges to Home Transition:- Requires supervision or verbal cues for IADLS- Increased risk of fallsEquipment Recommendations:NonePLAN OF CARE: Discharge from OT services Precautions: Weight bearing status: NAGeneral: FallBracing: N/ACurrent Occupational Performance and/or Treatment:AM-PAC 6 Clicks (Raw Score 0=Dependent, 24=Independent; Low function Raw Score 0= Dependent, 32=Independent): Feeding: Independent, Grooming: Independent, UB Bathing: Independent, LB Bathing: Independent, UB Dressing: Independent, LB Dressing: Independent, Tub/Shower Transfer: Supervision, Toilet Transfer: Supervision, Toileting Hygiene: Independent, Functional Mobility: Pt able to ambulate into hallway with rolling walker with supervision. Patient/caregiver educated on:Fall prevention and Role of OTPatient left sitting upright in bedside chair with call nunez in reach. Nursing notified. . Please, see full evaluation below for more detail. OT EVALUATION:82 year old male Admit date: 03/31/2023 Date of onset: 03/31/2023dmit Diagnosis: Weakness [R53.1]OT Diagnosis: Impaired IADL independencePMH: Past Medical History: Diagnosis Date Enlarged prostate Familial adenomatous polyposis 12/06/2020 Hyperlipidemia Hypertension Otitis media Type 2 diabetes mellitus PSH: Past Surgical History: Procedure Laterality Date EXTRACAPSULAR CATARACT EXTRACTION WITH INTRAOCULAR LENS IMPLANT 2014 OU HEMAPORT PLACEMENT N/A 01/17/2021 Surgeon: Yoel Gupta MD; Location: [facility] OR Location TOE AMPUTATION Right 1990s gangrene following insect bite TYMPANOPLASTY Left 05/25/2017 Surgeon: Jackie Rangel; Location: [facility] PAIN: Denies pain before and after session. OCCUPATIONAL ROLES/HOME ENVIRONMENT:Home environment: Mobile Home/Trailer. Bathroom access: YesBathroom setup: ComboOccupation(s): RetiredFunction prior to admission: Household ambulation and Independent with BADLs Suspected ischemic or hemorraghic stroke patient: NoEquipment prior to admission: Rolling WalkerPERFORMANCE SKILLS/FACTORS: UE Muscle Tone: bilateral WNLUE ROM: bilateral AROM WFL UE Strength: SUBHASH UE WFLHand dominance: right Dexterity/Coordination: able to perform thumb to finger opposition Endurance - Sitting: Good Standing: GoodSitting Balance - Static: Good Dynamic: NTStanding: Balance - Static good Dynamic: NTDizziness: NoSkin Integrity: No breakdown notedSensation: NTOral Motor: Poor dentitionCommunication: Able to verbalize needs Yes Other: N/AVision: WFL Yes Other: N/AHearing: good; no issues reportedCOGNITION: Orientation: person, place, date/time, and situationFollows Commands: 1-step Yes Multi-step Yes Inconsistencies NoSafety Awareness/Judgment: GoodPROBLEM LIST: Decreased strength/endurance for functional activityREHAB POTENTIAL/PROGNOSIS: NA as no further therapy needsPATIENT/FAMILY GOALS: Pt would like to return homeTREATMENT/INTERVENTION PLAN: Discharge from OTPATIENT-FAMILY TEACHINGPatient provided with preferred teaching of verbal information on Role of OT. Shows readiness to learn. Verbal instruction teaching provided. Individual is able to read and verbalizes understanding of teaching provided.Salome Chaney, OTRTx License [id number]. Joseph [phone]-IvwhhdiiAof nc Timed Treatment Codes: 10 MinTotal Treatment Time: 15 MinPatient Complexity Level Low - An occupational therapy evaluation of low complexity was completed using the above tests and measures. The following information was obtained: An occupational profile and medical and therapy history, including a brief history with review of medical and/or therapy records related to the presenting problem. Various standardized and non-standardized assessments were used to identify at least 1-3 performance deficits related to physical, cognitive, or psychosocial skills that result in activity limitations and/or participation restrictions. Clinical decision making of low complexity may have been utilized, which includes an analysis of the occupational profile, analysis of data from problem-focused assessment(s), and consideration of a limited number of treatment options. Patient may presents with no comorbidities that affect occupational performance. Modification of tasks or assistance (e.g., physical or verbal) with assessment(s) may not have been necessary to enable completion of evaluation component. [id number] [id number]:41:19Consult [id number] .[id number] for patient [id number] [id number] A Garcia [id number] [id number]: 41:191.2.840.342901.1.72.3.15|1.2.84 [id number] Salome Chaney OT [facility] - Health History and Physical Notes Date/Time Note Provider Source 2023-03-31 19:29:00 [id number] 31-03-23T19:29:00 Medicine History & PhysicalDate of Service: 04/01/2023t presents from: homeCC: weaknessHistory of Present Illness:Anabell Charles is a 82 year old male with a PMH of metastatic rectal cancer, HTN, DM2 who presented to the ED for weakness, dizziness.Patient has actively metastasizing cancer. States gradual worsening of weakness. He hasn't been fully ambulatory in over a year. No focality or symmetry to his weakness, just global generalized weakness. Deneis any breathing issues whatsover including cough, congestion, wheezing. Earlier this year he attempted physical therapy. After two sessions he did not feel like it was going to improve his strength and discontinued it. He is not interested in resuming PT at this time. ROS: Pt denies fever / chills / nausea / vomiting / diarrhea / constipation / chest pain / SOB / cough / abdominal pain / dysuria / hematuria / melena / hematochezia / rashes / suicidal or homicidal ideation / All others negativeReview of Hx/Meds:No current facility-administered medications on file prior to encounter. Current Outpatient Medications on File Prior to Encounter Medication Sig Dispense Refill Fenofibrate 160 mg tablet Take 1 tablet by mouth daily. rosuvastatin 40 mg tablet Take 1 tablet by mouth at bedtime. 90 tablet 1 tamsulosin 0.4 mg 24 hr capsule Take 1 capsule by mouth daily. 90 capsule 1 FINASTERIDE 5 mg tablet TAKE ONE (1) TABLET(S) BY MOUTH ONCE A DAY. 90 tablet 1 capecitabine 500 mg tablet Take 3 tablets by mouth 2 (two) times daily. Take 3 tablets in the morning and 3 tablets in the evening for 14 days. Then 7 days off . Take within 30 minutes of finishing a meal. 84 tablet 3 capecitabine 500 mg tablet Take 3 tablets by mouth 2 (two) times daily. Take 3 tablets in the morning and 3 tablets in the evening for 14 days. Then 7 days off . Take within 30 minutes of finishing a meal. 84 tablet 3 levoFLOXacin (LEVAQUIN) 500 mg tablet Take 1 tablet by mouth every 24 (twenty-four) hours. 7 tablet 0 capecitabine 500 mg tablet Take 2 tablets in the morning and 2 tablets in the evening for 14 days. Then 7 days off . Take within 30 minutes of finishing a meal. 56 tablet 2 capecitabine 500 mg tablet Take 2 tablets in the morning and 2 tablets in the evening for 14 days. Then 7 days off . Take within 30 minutes of finishing a meal. 56 tablet 2 capecitabine 500 mg tablet Take 2 tablets by mouth 2 (two) times daily. Take 2 tablets in the morning and 2 tablets in the evening for 14 days. Then 7 days off . Take within 30 minutes of finishing a meal. 56 tablet 2 gabapentin 300 mg capsule Take 2 capsules by mouth at bedtime. 180 capsule 3 Diclofenac Sodium (VOLTAREN) 1 % gel Apply to area(s) 4 (four) times daily. 100 g 2 Food Supplement, Lactose-Free (ENSURE HIGH PROTEIN) liquid Take 1 Can by mouth 3 (three) times daily with meals and at bedtime. 330 mL 11 lisinopriL 2.5 mg tablet Take 1 tablet by mouth daily. 90 tablet 1 meclizine 25 mg tablet Take 1 tablet by mouth 3 (three) times daily as needed for Dizziness. 90 tablet 5 pioglitazone-metformin 15-850 mg per tablet Take 0.5 tablets by mouth 2 (two) times daily with meals. 90 tablet 1 capecitabine 500 mg tablet Take 3 tablets by mouth 2 (two) times daily. Take 3 tablets in the morning and 3 tablets in the evening for 14 days. Then 7 days off . Take within 30 minutes of finishing a meal. 84 tablet 3 capecitabine 500 mg tablet Take 3 tablets by mouth 2 (two) times daily. Take 3 tablets in the morning and 3 tablets in the evening for 14 days. Then 7 days off . Take within 30 minutes of finishing a meal. 84 tablet 3 capecitabine 500 mg tablet Take 3 tablets by mouth 2 (two) times daily. Take 3 tablets in the morning and 3 tablets in the evening for 14 days. Then 7 days off . Take within 30 minutes of finishing a meal. 84 tablet 3 benzonatate 100 mg capsule Take 1 capsule by mouth 3 (three) times daily as needed for Cough. 14 capsule 0 fluticasone propionate 50 mcg/actuation nasal spray Use 2 Sprays in each nostril daily. 16 g 0 dronabinoL 2.5 mg capsule Take 1 capsule by mouth daily. Take 1 capsule by mouth daily. 30 capsule 3 albuterol 90 mcg/actuation inhaler Inhale 2 Puffs every 4 (four) hours as needed for Wheezing or Shortness of Breath. 8.5 g 0 dexAMETHasone 4 mg tablet Take 2 tablets by mouth daily. Take on Day 2 and Day 3 of each cycle. 16 tablet 1 magnesium oxide 40 mg/mL oral suspension Take 10 mL by mouth daily. 120 mL 0 albuterol 90 mcg/actuation inhaler Inhale 2 Puffs every 6 (six) hours as needed for Wheezing or Shortness of Breath. 8.5 g 11 diphenoxylate-atropine 2.5-0.025 mg tablet Take 1 tablet by mouth every 6 (six) hours as needed (Diarrhea refractory to loperamide). 60 tablet 1 loperamide 2 mg capsule Take 2 capsules by mouth every 4 (four) hours as needed for Diarrhea. Take 2 capsules (4 mg) after the first loose stool, then 1 capsule (2 mg) every 4 hours as needed for diarrhea. Maximum 8 capsules per day. 180 capsule 1 proCHLORperazine 10 mg tablet Take 1 tablet by mouth every 6 (six) hours as needed for Nausea and Vomiting (N/V). 60 tablet 3 fluticasone propionate (FLONASE ALLERGY RELIEF) 50 mcg/actuation nasal spray Use 2 Sprays in each nostril daily. 16 g 11 blood sugar diagnostic strip E11.9. Check blood sugar BID (Accu-Check Brand) 100 Strip 11 lancets 30 gauge Misc E11.9. Check blood sugar BID (Accu -Check Brand) 100 Each 11 I have reviewed the patient's home medicationsPMH: Past Medical History: Diagnosis Date Enlarged prostate Familial adenomatous polyposis 12/06/2020 Hyperlipidemia Hypertension Otitis media Type 2 diabetes mellitus PSH: has a past surgical history that includes toe amputation (Right, ); extracapsular cataract extraction with intraocular lens implant (2014); tympanoplasty (Left, 05/25/2017); and hemaport placement (N/A, 01/17/2021). Family Hx: Social History Tobacco Use Smoking status: Former Packs/day: 2.00 Years: 40.00 Additional pack years: 0.00 Total pack years: 80.00 Types: Cigarettes Quit date: 09/07/1998 Years since quittin.5 Smokeless tobacco: Current Tobacco comments: 1 can dip week Substance Use Topics Alcohol use: Yes Alcohol/week: 0.0 standard drinks of alcohol Comment: 1-2 beer daily Drug use: No Current Scheduled Medications Current IV Current Facility-Administered Medications: acetaminophen (TYLENOL) tablet 650 mg, 650 mg, Oral, Q6HPRN, Tim Busby MD azithromycin (ZITHROMAX) tablet 250 mg, 250 mg, Oral, DAILY, Tim Busby MD, 250 mg at 03/31/23 1938 cefTRIAXone (ROCEPHIN) 1,000 mg in NaCl 0.9% (NS) 100 mL MINI-BAG, 1,000 mg, IV Piggyback, Q24H ABX, Tim Busby MD, Stopped at 04/01/23 0039 enoxaparin (LOVENOX) injection 30 mg, 30 mg, Subcutaneous, DAILY, Tim Busby MD HYDROcodone-acetaminophen (NORCO 5) 5-325 mg tablet 1 tablet, 1 tablet, Oral, Q6HPRN, Tim Busby MD morpHINE (2 mg/mL) injection 2 mg, 2 mg, Slow IV Push, Q4HPRN, Tim Busby MD ondansetron (ZOFRAN (PF)) injection 4 mg, 4 mg, Slow IV Push, Q6HPRN, Tim Busby MDObjective:Vitals:Vitals: 03/31/23202603/31/23 2321 04/01/23 0441 04/01/23 0726 BP: (!) 152/71 (!) 149/75 137/73 139/81 Pulse: 61 62 60 62 Resp: 20 20 20 16 Temp: 36.6 ?C (97.8 ?F) 36.6 ?C (97.8 ?F) 36.1 ?C (97 ?F) 36.7 ?C (98.1 ?F) TempSrc: SpO2: 98% 98% 99% 99% Weight: 66.5 kg (146 lb 9.6 oz) Height: I/O's:Intake/Output Summary (Last 24 hours) at 04/01/2023 0729Last data filed at 04/01/2023 0530Gross per 24 hour Intake 1100 ml Output 700 ml Net 400 ml Physical Exam:Constitutional: A&O x3, well-developed, well-nourished, and in no distress. Head: Normocephalic and atraumatic. Eyes: PERRL. Conjunctivae and EOM are normal. Neck: Normal range of motion. Neck supple. No JVD present.Cardiovascular: Normal rate, regular rhythm, normal heart sounds Pulmonary/Chest: Effort normal and breath sounds normal. No respiratory distress. No wheezes, rales or rhonchi. Abdominal: Soft. Bowel sounds are normal. No TTP, non-distended and no masses. No rebound or guarding. Musculoskeletal: Normal range of motion. No edema or tenderness. Lymphadenopathy: No cervical adenopathy. Neurological: A&O x3. No focal deficits. Gait normal. Skin: Skin is warm and dry. No rash noted. No erythema. No pallor. Labs:BMP:BMP NA (mmol/L) Date Value 04/01/2023 138 03/31/2023 137 03/16/2023 137 02/22/2023 142 02/02/2023 137 SODIUM-Q (mmol/L) Date Value 04/09/2016 136 K (mmol/L) Date Value 04/01/2023 3.4 (L) 03/31/2023 3.7 03/16/2023 4.1 02/22/2023 5.0 02/02/2023 4.6 POTASSIUM-Q (mmol/L) Date Value 04/09/2016 4.9 CALCIUM (mg/dL) Date Value 04/01/2023 8.2 (L) 03/31/2023 9.1 03/16/2023 8.9 02/22/2023 9.3 02/02/2023 9.0 CALCIUM-Q (mg/dL) Date Value 04/09/2016 9.8 CL (mmol/L) Date Value 04/01/2023 108 03/31/2023 104 03/16/2023 102 02/22/2023 105 02/02/2023 102 CHLORIDE-Q (mmol/L) Date Value 04/09/2016 100 BUN (mg/dL) Date Value 04/01/2023 24 (H) 03/31/2023 32 (H) 03/16/2023 22 02/22/2023 18 02/02/2023 19 UREA NITROGEN (BUN)-Q (mg/dL) Date Value 04/09/2016 24 CREATININE (mg/dL) Date Value 04/01/2023 1.00 03/31/2023 1.38 (H) 03/16/2023 0.87 02/22/2023 1.00 02/02/2023 0.91 CREATININE-Q (mg/dL) Date Value 04/09/2016 0.99 GLUCOSE (mg/dL) Date Value 04/01/2023 93 03/31/2023 97 03/16/2023 108 02/22/2023 91 02/02/2023 116 (H) GLUCOSE-Q (mg/dL) Date Value 04/09/2016 101 (H) CO2 TOTAL (mmol/L) Date Value 04/01/2023 20 (L) 03/31/2023 24 03/16/2023 28 02/22/2023 27 02/02/2023 27 CARBON DIOXIDE-Q (mmol/L) Date Value 04/09/2016 26 CBC:CBCWBC (10*3/?L) Date Value 04/01/2023 5.85 RBC (10*6/?L) Date Value 04/01/2023 4.04 (L) PLT (10*3/?L) Date Value 04/01/2023 187 HGB (g/dL) Date Value 04/01/2023 13.1 HCT (%) Date Value 04/01/2023 38.4 BMP:Hepatic Function PanelALBUMIN (g/dL) Date Value 03/31/2023 4.2 T PROTEIN (g/dL) Date Value 03/31/2023 7.7 TOTAL BILI (mg/dL) Date Value 03/31/2023 0.5 BILI UNCON (mg/dL) Date Value 01/07/2021 0.2 BILI CONJ (mg/dL) Date Value 01/07/2021 0.0 ALT(SGPT) (U/L) Date Value 04/23/2019 19 ALTv (U/L) Date Value 03/31/2023 23 AST(SGOT) (U/L) Date Value 03/31/2023 39 ALK PHOS (U/L) Date Value 03/31/2023 99 Troponin: Recent Labs TROPNI 0.012 I have reviewed all relevant labsImaging:CT HEAD WO CONTRASTResult Date: 03/31/2023EXAM: CT HEAD WO CONTRAST HISTORY: weakness, eval for metastatic disease. h/o colorectal cancer on chemotherapy . [facility] from [facility]: "weakness and dizziness TECHNIQUE: Axial CT of the head was performed and reconstructed at 5 mm intervals. Coronal and sagittal reformatted images were generated. COMPARISON: Head CT scan dated on 09/12/2019 FINDINGS: The ventricles and cerebral sulci are normal in caliber and in configuration for the patient' age. No midline shift or pathological extra-axial fluid collection is present. The basal cisterns are unremarkable. No acute intracranial hemorrhage or significant mass effect is visualized. Scattered subcortical and periventricular hypodensities, nonspecific. The yañez-white matter differentiation is preserved. Mild left mastoid air cells effusion. Clear right mastoid air cells. Intracranial atherosclerosis. 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 The other visualized paranasal sinuses are clear. 1. No acute intracranial abnormality. 2. Please note that this exam is limited for evaluating metastasis due to lack of contrast, recommend contrast-enhanced MRI. Preliminary Report Dictated by Resident: Daria Callahan, Jesus Walker MD., have reviewed this study and agree with the above report.XR CHEST 1 VWResult Date: 03/31/2023EXAM: XR CHEST 1 VW COMPARISON: 01/14/2023, 11/23/2022. Correlation with PET CT 03/18/2023. HISTORY: eval for metastatic disease, h/o colon cancer FINDINGS: Support devices: Pacemaker generator over the right chest with right atrial and right ventricular leads. Infusion port is present in the left upper chest with subclavian approach catheter extending to the right atrium. Lungs/pleura: Lungs are mildly hypoinflated. Hazy opacity is now seen over the left costophrenic angle, not seen previously. The lungs appear otherwise clear. Heart/Mediastinum: The cardiac silhouette is normal in size. Atherosclerotic calcification is noted in the aortic arch. Left lower lung opacity could represent pneumonia.PET TUMOR IMAGING SKULL TO THIGHResult Date: 03/19/2023EXAM: PET TUMOR IMAGING SKULL TO THIGH HISTORY: 82 years old Male with rectal cancer, metastatic to the liver diagnosed in 2020. He has been treated with chemotherapy. He has rising CEA levels. FDG PET for subsequent treatment strategy. COMPARISON: CT Abdomen Pelvis dated 01/01/2023. TECHNIQUE: The patient's fasting blood glucose level was 111 mg/dL. 10.0 mCi of F-18 fluorodeoxyglucose was administered intravenously. After one hour of resting a scan was performed from the skull vertex to the midthighs on an up to date PETCT system. The CT dose was 1122.01 cGy/cm. CARDIAC BLOOD INDEX SUV: 2.3 LIVER REFERENCE: SUVmax : 3.0 and SUVmean 2.6 FINDINGS HEAD AND NECK: HEAD AND NECK: Mild focal activity corresponding to the left mastoid air cells is without CT correlate, probably inflammatory. No additional abnormal FDG activity is present in the head and neck. No enlarged or hypermetabolic cervical lymph nodes are present. The brain has physiologic metabolic activity. Orbits and paranasal sinuses are clear. Physiologic activity seen in lymphoid tissue around the oropharynx. There is no active mucosal abnormality. CHEST: There are multiple FDG avid bilateral pulmonary nodules. Merchandise Team Manager examples include: *A 0.9cm nodule in the right upper lobe with max SUV 13.6. *A 1.7cm nodule in the superior segment of the left lower lobe with max SUV 13.2. *A 1.7cm nodule in the left upper lobe with max SUV 11.5 abutting the anterior mediastinum. FDG left left hilar lymph nodes are present. No enlarged or hypermetabolic mediastinal or axillary lymph nodes. Intense activity corresponding to a long segment of the upper-mid thoracic esophagus with corresponding circumferential wall thickening on CT. Physiologic activity is present in the myocardium. Moderate global cardiomegaly is present. Left chest wall pacemaker with leads terminating in the right atrium and right ventricle. Bulky mitral valve calcifications. Severe LAD coronary artery calcifications. ABDOMEN AND PELVIS: Liver lesions: There are at least five FDG avid liver lesions including: *A 1.7 cm focus of intense uptake in the left hepatic lobe (SUV 6.8) corresponding to the liver lesion seen on CT from 01/01/2023. *Two hepatic dome lesions measuring 2.0 cm and 1.7 cm with intense FDG uptake (SUV 20.0 and 32.0 respectively). *Hypermetabolic lesions in the caudate lobe and segment VII, both with intense uptake. Rectum: Intensely hypermetabolic low rectal mass (SUV 35.4) involving the anorectal junction is compatible with known rectal adenocarcinoma. Prostrate and Bladder: There are two foci of intense FDG activity involving the posterior peripheral zone without CT correlate. Marked prostatomegaly measuring 6.2 cm in transverse diameter. Hypertrophy of the median lobe abutting the base of the bladder. Circumferential bladder wall thickening is probably due to some degree of outlet obstruction. A right posterolateral bladder diverticulum is present. A 1.2 cm hypermetabolic nodule is closely related to the right seminal vesicle, probably a mesorectal lymph node. Lymph nodes: A 1.0 cm hypermetabolic left inguinal lymph node (SUV 6.4). No enlarged or hypermetabolic mesenteric or retroperitoneal lymph nodes are present. Incidental CT findings: Embolization coils are present around the gastric antrum. The spleen, pancreas, kidneys and the adrenal glands have a normal noncontrast CT appearance. BONES AND SOFT TISSUES: Markedly hypermetabolic lesion in the left humeral head (SUV 23.5) is without CT correlate. The soft tissues are unremarkable. 1. Markedly hypermetabolic lower rectal mass is compatible with known primary rectal malignancy. 2. Hypermetabolic liver lesions, pulmonary nodules and left hilar nodes are compatible with metastatic disease. Hypermetabolic left inguinal and mesorectal lymph nodes also represent metastatic lesions. 3. Focal marked uptake in the left humeral head without CT correlate is suspicious for metastasis, though could be related to inflammation/rotator cuff pathology. If this would affect management, MR of the shoulder could be performed. 4. Two foci of FDG uptake in the prostate are concerning for a primary prostatic malignancy. Correlation with PSA and further workup is recommended. 5. Long segment uptake in the esophagus with associated wall thickening is likely related to esophagitis. Preliminary Report Dictated by Resident: Ghazala Castillo I, Duglas Chadwick MD., have reviewed this study and agree with the above report. Assessment and plan:Principal Problem: J[age]ckzs87 y/o M with PMH of stage 4 rectal cancer with mets to liver on chemo and XRT, HTN, DM II and HLD who presented with generalized weaknessWeaknessLikely due to chemo and radiation therapy, advanced cancer. PT/OT consult. AKIPrerenal YVONNE with Cr 1.28. Monitor for improvement with IVFStage 4 rectal cancerWith metastassis to liver. Undergoing chemo, XRT. DVT prophylaxis.-patient currently supposed to be taking capecitabine and dexamethasone, please confirm dosingHTN-lisinopril 2.7JL1-YSD, accuchecks DVT prophylaxis: lovenox. Icnrease to 40mg if YVONNE improves Advanced Care Planning ( Z71.89 )Above assessment and plan discussed at length with patient, patient expressed full understanding. Questions and concerns addressed I spent 18 minutes discussing the advance care planning.Advanced Directive Maker: selfLevel of comfort: N/ACode Status: fullTobacco user (Z71.6)Patient counseled at length and Pt expressed full understanding, Time discussed 3 minutesDisposition: admit to inpt Signed:Pedro Luis Davis MD03/31/2023 05956-8Viwrpmx and physical lbzeCZ5986-74-48J11:39:17History and physical noteTXT1.2.840.074038.1.13.104.2. 7.2.766132|[id number] for patient tssz27397-4Ewetbby and physical noteLNIM-INTERNAL MEDICINE STAFFIM-INTERNAL MEDICINE STAFF[id number] 685WWHIESJSMEPPYWESGVCYQM9786-28- 24T07:39:171.2.840.790722.1.72.3. 15|1.2.840.108348.1.13.104.2.7.2. 727879_[id number] IM-INTERNAL MEDICINE STAFF [facility] Notes Date/Time Note Provider Source 2023-09-19 12:31:08 HsGuBsJaUr9RQTQtoI9mCKePYEhWECr5tcO Z3fY9+YSLJeeAcqtIUm8pgJWYa4LK8274-2 2:31:08 Pt given printed and verbal discharge instructions regarding neoplastic malignant related fatigue, weakness, chronic hyponatremia, encouraged hydration,1 Prescriptions sent.Pt verbalized understanding of instructions, pt awake alert oriented, resp reg unlabored, skin w/d, color appropriate for race, moves all ext well,pt encouraged to follow up with pcp.Advised to seek medical attention for new/prolonged/worsening of symptoms,Symptoms improved.No adverse reaction to meds given in ER noted upon dischargePIV d'cd, dressing to site, catheter in tact.Awake, alert oriented, resp reg unlabored, skin w/d, pt leaving pushed in wheelchair, in no apparent distress, 49525-2Buyvvdqou department WogmLC4899-21-68K24:34:09[facility] NoteTXT1.2.840.174394.1.13.104.2.7. 2.906400|[id number] for patient lyvd47102-9UvriBSMPGWYBNOBZmlcdfpmt C-CDA narrative [id number] M Felix RNUT[address] [id number] 4PDOCFKSCPUMMGZVGJGIBEZ7743-75-56G5 2:34:091.2.840.074450.1.72.3.15|1.2 .840.299202.1.13.104.2.7.2.727879_2 [id number] Alka Bailey RN [facility] 2023-09-19 10:48:57 NpQO29Bxr4wbmumFganELBMTJOR0psUINV+ NxtTF+YCJTwvjmKVAeVxkJypR0Psv0790-1 09-19T10:48:57 Report handed over to LYUBOV Rucker. 43850-3Lsvrvfdop department SsceUT1429-09-78N21:49:08[facility] NoteTXT1.2.840.578650.1.13.104.2.7. 2.677744|[id number] for patient jfqv53543-6XmpwWGZLGZEXMIBDcdddhhfh C-CDA narrative text[address] Vj[id number] 3HPQVBFQCQSBTBUAMNSULBQ4173-75-56W2 0:49:081.2.840.532580.1.72.3.15|1.2 .840.116326.1.13.104.2.7.2.727879_2 [id number] [facility] 2023-09-19 09:20:00 q8fNFKJbNO8Y4xgCHQ1Tu+mCAPmNDV5FCwc r01awj1c1TyH1gmzElivBgRIZD7LJ9427-4 09:20:00 Patient states: "I've been feeling terribly weak, can hardly walk, no appetite since 15 days. I'm being treated for my cancer and my chemotherapy was done on Wednesday and since then I feel worse." 53201-9Cxhducmcb department Triage rgdeTP4668-12-96V48:33:18[facility] Triage noteTXT1.2.840.985262.1.13.104.2.7. 2.426485|[id number] for patient ttyy54395-7Sraaeurrs department NoteLNNARRATIVEFormatted C-CDA narrative [id number] C Heredia RNUT[address] Vjib[id number] 5VATMHMAHNKYMSMTNBFAUCU2393-79-97G0 9:33:181.2.840.483193.1.72.3.15|1.2 .840.392367.1.13.104.2.7.2.727879_2 [id number] Francesca Castelan RN [facility] 2023-09-17 10:02:04 Y1eKWELug+b7SQI/1nceih+tz0TfSxu1E/1 P+r2H1/KmLfmW8gP22ogAIcGzvIqF8127-1 09-17T10:02:04 Patient and granddaughter Ciara on phone call with complaints of CIVI leaking. Patient states that infusor has been leaking since he left the clinic yesterday. He states that he has noticed it "wet on my chest and dripping down my chest. My shirt also has some white stuff on it" I advised the patient and the granddaughter that it was imperative for the patient to be seen immediately in the [place] emergency department. (Time of call was approximately 1550 and clinic would be closed before patient would arrive due to distance) The patient asked if he could just come to the infusion clinic first thing in the morning. I explained to the patient and his granddaughter that there very well could be an extravasation causing damage to the tissue, and that waiting over another 12 hours while having that medication leaking was not safe. Ciara understood and was able to convince her grandfather to present to the ED. All questions were answered at this time. Dr White also notified of the above. I also called the triage ED nurse to make aware that patient would be on his way and the circumstances surrounding his arrival. 80001-8Ywibrcwir encounter OjokCC2576-57-09K32:20:28Telephone encounter NoteTXT1.2.840.140585.1.13.104.2.7. 2.417567|[id number] for patient kyrf04773-7ExlsLZVKXTWRZVEAiwwopdsn C-CDA narrative [id number] Perez RN[address] Sjwd[id number] 6KIDQIIKBOAHDONINJHIAQD2934-85-43Y6 0:20:281.2.840.039568.1.72.3.15|1.2 .840.214501.1.13.104.2.7.2.727879_2 [id number] Alexandra Ying RN [facility] 2023-09-16 21:44:29 soqwNdOu34NltWN2Fc0L5WXzm1XQpqH4urV HEZUiQhFgS/Xg/xS5svApxK4Fetcn8392-7 09-16T21:44:29 Pt given printed and verbal discharge instructions.Pt verbalized understanding of instructions, pt awake alert oriented, resp reg unlabored, skin w/d, color appropriate for race, moves all ext well,pt encouraged to follow up with pcp.Advised to seek medical attention for new/prolonged/worsening of symptoms.No adverse reaction to meds given in ER noted upon discharge.Port d'cd, dressing to site, no bleeding.Awake, alert oriented, resp reg unlabored, skin w/d, pt leaving amb with steady gait, in no apparent distress. 50077-4Qaydbvsdv department XicjSP0038-46-03B37:45:31[facility] NoteTXT1.2.840.357234.1.13.104.2.7. 2.211574|[id number] for patient szuz82684-2XfodESMDNELFEHDAnilodyvo C-CDA narrative qokj148208213Blpjrseoh L Lolley RNUT[id number] 0XHHMRMYMKJNHRVQLCKZJJK5840-67-01S9 1:45:311.2.840.670413.1.72.3.15|1.2 .840.743508.1.13.104.2.7.2.727879_2 [id number] Lou Carey RN [facility] 2023-09-16 21:20:01 efGmEzqvy5fJWoflxNLQQBaDTYQ8VFthMf1 jO4fLWn04TKMLs4QSZS6Rg4U5VI+w2341-3 1:20:01 Cold compress applied to pt's left chest. [address]-8Cqczyynsy[address] ZsgiLF3138-09-25D38:20:23[facility] NoteTXT1.2.840.403785.1.13.104.2.7. 2.947541|[id number] for patient sopf59033-4ZfhoGDJBPZVKEEAPyreopxxg C-CDA narrative text[id number] 2SECYPKOVVHJILNQYMQTADA9908-79-93U1 1:20:231.2.840.942722.1.72.3.15|1.2 .840.043918.1.13.104.2.7.2.727879_2 [id number] [facility] 2023-09-16 20:50:42 U+dczU6GqvpMqdbdgMEOKfnAOSRcFI3CHDR 3C9n65M2QUhQsQURSnalc3v7El/Wl1334-7 09-16T20:50:42 Oncologist called back and recommended to stop chemo infusion, clean skin thoroughly to reduced skin breakdown for med, cold compresses to any area of pain/redness for 15-20 mins 4-6 times a day, and for ptWalkin to infusion clinic tomorrow for assessment. Pt educated verbally on recommendation, pt verbalizes understanding. 07930-3Zvjrisydl department WxcvVL3066-39-16D26:59:19[facility] NoteTXT1.2.840.545717.1.13.104.2.7. 2.157698|[id number] for patient yikm85398-3JrzsQRKHUEBDFHBRnewixfcb C-CDA narrative textUT[address] Im[id number] 7GGOTLFRMGXFUANSDNNBEMN4001-76-74Q1 0:59:191.2.840.488915.1.72.3.15|1.2 .840.758436.1.13.104.2.7.2.727879_2 [id number] [facility] 2023-09-16 20:45:36 qoYyoWY+WIOQ0vv7pYxj7KmrVhVlAJfKGvn kT7apxvQ6I5E4Ql5phMj2hlJnIdPI2461-9 09-16T20:45:36 Rapid RN to stop chemo infusion and de-access pt's chemo port. Pt's chest thoroughly cleaned and free of residue from med.Awaiting call back from oncologist for recommendation. 95442-0Qebljztkw department IczpER4691-25-98W70:52:52[facility] NoteTXT1.2.840.367464.1.13.104.2.7. 2.369428|[id number] for patient dqdb98689-5VrfvMUTRLTRGNCDConrragsy C-CDA narrative [id number] 3OWMWEWXXBGRDPQIOGSEPRC9810-21-43A0 0:52:521.2.840.602038.1.72.3.15|1.2 .840.990902.1.13.104.2.7.2.727879_2 [id number] [facility] 2023-09-16 20:34:51 jwNwx/wloMxlWjz6mjOMiWVz4B4wYAoYDVv 7I3U1bL8q9/NyaEr6RGhxK+fRQLdN0360-9 09-16T20:34:51 Rapid RN at bedside for assessment. Pt's port leaking, medication residue noted to pts' shirt and chest. [address]-9Jrueaquhi[address] AkfwVJ2167-11-38O82:41:39[facility] NoteTXT1.2.840.299049.1.13.104.2.7. 2.415608|[id number] for patient dyok05939-4IgttFFPBBXPGNWDHtxhzhftq C-CDA narrative [id number] 7IRSKMIGVMFUZQDDWUVASHJ7803-53-56W9 0:41:391.2.840.627002.1.72.3.15|1.2 .840.633422.1.13.104.2.7.2.727879_2 [id number] [facility] 2023-09-16 20:30:19 LQeKoKdXu40DombQ+QKRhpOsQlk8KoiE9DI Xb7yDzkZXVRLG1WUrtVKlOb3a1Qg39202-4 09-16T20:30:19 This RN spoke with ICU resource RN, pt to be evaluated by RN.Plan [place] [address]-0Tygwsxjum department QjloWI5151-54-41E39:31:04[facility] department NoteTXT1.2.840.279973.1.13.104.2.7. 2.510154|[id number] for patient zqte15027-8NmlwDARQPFVDWHXEldpafune C-CDA narrative [id number] C. Macicek RN[address] NzytWwvlkuchwHplcviwpqIFPT680167688 6MLPDBDQXVUQLSCHRUWIGDI9341-16-15T7 0:31:041.2.840.283600.1.72.3.15|1.2 .840.184472.1.13.104.2.7.2.727879_2 [id number] Allen Wesley RN [facility] 2023-09-16 20:05:00 mIEfCSfqa5AMV7K7jeqpX1Qa+f4j7vSdXIj Tl2Hq2JUw4DXRj5UOv+ePnIiPBt8X9440-3 09-16T20:05:00 Introduced self to pt. Pt resting in stretcher with call light in reach. Bed in lowest locked position, side rails up x2. Pt has no complaints at this time. Pt A/O x4, RR e/u, NAD noted at this time, VSS. Family member at bedside. 51610-2Whrzzvaip department UfcjHE3607-22-62K18:37:07[facility] NoteTXT1.2.840.553727.1.13.104.2.7. 2.311759|[id number] for patient nmqe63370-1XttwXLIVMGIRQYFWhyijwbam C-CDA narrative textUT[address] IzqhA[id number] 9OGJLKUFDKVONZEVUNDQRFE0049-82-54C1 0:37:071.2.840.852631.1.72.3.15|1.2 .840.025414.1.13.104.2.7.2.727879_2 [id number] [facility] 2023-09-16 18:13:04 xoU1L1v8zFza+0vT74hFLQJn9gJWExMloXR sTU3VvzKGHvKA5HtiAGGaKQ+FWwlP4287-4 8:13:04 Anabell Charles is a 82 year old male presents to ED triage with chief compliant of medical technician assistant problem. Pt is sent to ED via instruction of infusion clinic. Pt has continuous infusion pump of chemotherapy and pt reported to them that it has been hurting and leaking since yesterday. Infusion clinic states they believes it is infiltrated and needs to be stopped but their clinic is closed. Pt arrives to ED with chemo pump infusing. Pt states he does not know how to stop it. Pt states the site itches and is sharp/painful. Ambulatory. AAOx4. Skin warm and dry. VSS. RR E/U. NAD noted 12905-1Irarfcovb department Triage uydnEC9760-14-89C91:15:19[facility] Triage noteTXT1.2.840.379844.1.13.104.2.7. 2.041271|[id number] for patient kahk07642-6Fegwddmjo department NoteLNNARRATIVEFormatted C-CDA narrative [id number] S Hawthorne RN[address] Ww[id number] 9GSMBXEKTCGDUVJNHKDCVKP9635-77-18O7 8:15:191.2.840.292201.1.72.3.15|1.2 .840.250567.1.13.104.2.7.2.727879_2 [id number] Catarina Luong RN [facility] 2023-09-13 08:30:00 ibNpAy09r+Lsr9RW1J5YS4DkhDqM4/mHLpM fTCcN9WkG+v6/nb5UuVFwDJ7xSz6i2789-6 08:30:00 Images from the original note were not included.Venipuncture collection performed by clean technique on the left anticubitus. Total of 1 attempts were made. Slight pressure and a bandage/dressing were applied to the site(s). The patient experienced no complications. The following specimens were processed according to instructions and sent to [facility] per lab order on today:LT BLUESST 1REDLAV 1PPTDK GREEN (LiHep)DK GREEN (SodH)GRAYDK BLUE (K2)DK BLUE (S)ACDBlood CultureNIPT/NTDPatient has been identified by and name and was provided with cup, antiseptic towelette, and clean catch instructions. 3 urine specimen(s) sent.Unpreserved 2Urine Culture 1Aptima tubeOther urine 76807-9Emerk QtqjBE6436-25-96H41:10:22Nurse NoteTXT1.2.840.436112.1.13.104.2.7. 2.914237|[id number] for patient nnjy22069-6Ajncs NoteLNNARRATIVEFormatted C-CDA narrative eorq671130218Gozccrz A Gonzalez[address] StreetUxhl[id number] 8PEAKEDBWPGHRZGXLDPTTUH2769-31-63D0 9:10:221.2.840.553484.1.72.3.15|1.2 .840.621094.1.13.104.2.7.2.727879_2 [id number] Magda Abdullahi [facility] 2023-08-30 08:30:00 hK6rQJXj0k12p+amf0urmx/+Xc174aSnmlJ hlTT6W4tJxfiAg5cdyUIxE2x+Ttnk7862-6 08:30:00 Images from the original note were not included.Venipuncture collection performed by clean technique on the left anticubitus. Total of 1 attempts were made. Slight pressure and a bandage/dressing were applied to the site(s). The patient experienced no complications. The following specimens were processed according to instructions and sent to [facility] per lab order on today:LT BLUESST 2REDLAV 1PPTDK GREEN (LiHep)DK GREEN (SodH)GRAYDK BLUE (K2)DK BLUE (S)ACDBlood CultureNIPT/NTD 88717-4Htjwm QoeaAW0389-44-60C24:50:18Nurse NoteTXT1.2.840.179623.1.13.104.2.7. 2.440145|[id number] for patient vurr82570-7Cbnjq NoteLNNARRATIVEFormatted C-CDA narrative yhfe039189911Tkvshvv A Gonzalez[address] StreetPzooGq[id number] 2NTHHSAANWAJAAONJKOCELQ0576-62-61J4 8:50:181.2.840.778598.1.72.3.15|1.2 .840.313952.1.13.104.2.7.2.727879_2 [id number] Magda Abdullahi [facility] 2023-08-16 08:45:00 w7GKWnVQ/wOsY+FblRqSL85+mbBkHJsBnfp X3fXGneaOFqyxM7Cf+hw69CW+TEPV8622-0 08:45:00 Images from the original note were not included.Venipuncture collection performed by clean technique on the left anticubitus. Total of 1 attempts were made. Slight pressure and a bandage/dressing were applied to the site(s). The patient experienced no complications. The following specimens were processed according to instructions and sent to [facility] per lab order on 08/16/2023 :LT BLUESST 1REDLAV 1PPTDK GREEN (LiHep)DK GREEN (SodH)GRAYDK BLUE (K2)DK BLUE (S)ACDBlood CultureNIPT/NTDPatient has been identified by and name and was provided with cup, antiseptic towelette, and clean catch instructions. 1 urine specimen(s) sent.Unpreserved 1Urine CultureAptima tubeOther urine 75788-6Txphh VtqeXA7453-91-61I53:01:33Nurse NoteTXT1.2.840.428014.1.13.104.2.7. 2.380799|[id number] for patient valu76725-1Cbihj NoteLNNARRATIVEFormatted C-CDA narrative ljcv542996957Nxiucje N ButlerUT[address] HbvwOxcxsslqpKagoqonqtOWLH610605547 9SGJPCSGIELOXNCLARGBXZP0150-44-19S9 9:01:331.2.840.223409.1.72.3.15|1.2 .840.229574.1.13.104.2.7.2.727879_1 [id number] Marlena Ferrell [facility] 2023-08-13 15:03:26 9y5NhPrtUrJvGyTrrzFEeyl//SA+t3QAQjf ziyyWOvX2Nc6NdLUrEhwEjuQbcaen2084-5 :03:26 [employer] faxed in physicians order to be reviewed and signed by provider. Form placed in nurses basket. 08937-2Vuupoelnt encounter PgrlSW3978-81-31V48:04:27Telephone encounter NoteTXT1.2.840.952132.1.13.104.2.7. 2.852763|[id number] for patient pajh63838-7EoavIBGQPBEIGDCUwhhmnjbn C-CDA narrative thdf855740380Vclklak E Buckhe[address]vdGal[address]onGalvestonTXTX[address] 4JWHPJZWEVQESMJGMAOCUNW7268-75-76Y9 5:04:271.2.840.806254.1.72.3.15|1.2 .840.632505.1.13.104.2.7.2.727879_1 [id number] Dinora Lucas [facility] 2023-07-09 11:30:00 7B9kPI703Z4LuMzZa0pz3AqWYH+h4DfFp4w /2v63Y+DmbaQlW/2Z+jU/ISlg4RZ32178-0 1:30:00Addended by: ALEXANDRA YING RN on: 08/12/2023 09:07 PMModules accepted: Orders 72824-9Mczixxsk GudvnfrmJH0683-89-25Z35:07:13Addend um DocumentTXT1.2.840.549389.1.13.104. 2.7.2.516144|[id number] for patient yxjd93195-2SxbjIQEOFBTLHWGMfkkaucuz C-CDA narrative kkob229412056Vuiintmw Stepan MCARTHURUT[address] StreetFlnpSszmbtmvmKgfxxvkooZDZQ382567029 2GMESBIKITSCVMBCLKQIODT6091-63-55Z4 1:07:131.2.840.829990.1.72.3.15|1.2 .840.613966.1.13.104.2.7.2.727879_1 [id number] Alexandra Stepan MCARTHUR [facility] 2023-04-27 08:45:00 aeqq8vljEVfTfelgLSoj4pk7UgNt0A0xkXG OpYZSg+OSGKgKias6KFNiR1RSnLUp1293-7 08:45:00 Images from the original note were not included.Venipuncture collection performed by clean technique on the left anticubitus. Total of 1 attempts were made. Slight pressure and a bandage/dressing were applied to the site(s). The patient experienced no complications. The following specimens were processed according to instructions and sent to [facility] per lab order on 04/27/2023: LT BLUE SST 2 RED LAV 1 PPT DK GREEN (LiHep) DK GREEN (SodH) YAÑEZ DK BLUE (K2) DK BLUE (S) ACD Blood Culture NIPT/NTD Patient has been identified by and name and was provided with cup, antiseptic towelette, and clean catch instructions. 1 urine specimen(s) sent. Unpreserved 1 Urine Culture Aptima tube Other urine 90385-2Pyzkv HbkoMQ8382-84-48P74:34:14Nurse NoteTXT1.2.840.780395.1.13.104.2.7. 2.336935|[id number] for patient zuht47441-3Nlxpp ZnbhWH457549134Zedlqpnxnb S LecompteUT[address] StreetXcykVhmnwfnnwTopoxrnvhIHVI775379889 3BEFXXCGFSCUGONGFUHWHEF3759-94-98W4 8:34:141.2.840.167287.1.72.3.15|1.2 .840.046634.1.13.104.2.7.2.727879_1 [id number] Zeinab Nava [facility] 2023-04-20 13:57:58 fS1oe6cnyAkQyuJK5N5lAAR2FlpbULbkI0Z OCr0MvjbFMlZbnYrT33rXtWwjViqg3787-1 3:57:58 Written/verbal d/c instructions, pt out of ER ambulatory alert in no distress 90705-8Kubfszont department JxxwSA8041-55-52K92:58:25Emergency department NoteTXT1.2.840.671902.1.13.104.2.7. 2.999035|[id number] for patient uiuc24580-2MmslTAZXTLJAUX[address]vdGal[address]onGalvestonTXTX[address] 1GSXFNCZPDTVRSEMQJXZEIP9562-22-12N2 3:58:251.2.840.941190.1.72.3.15|1.2 .840.904335.1.13.104.2.7.2.727879_1 [id number] [facility] 2023-04-20 11:35:27 Yr34yuBjpip4f0RVwVO7cbY0URfenwRzg3X SI+/WfzkruZE7xFxq2ULst6BHviQU0259-1 1:35:27 Pt states has colon and rectal cancer, also states I/O caths self for the last several months d/t urine retention that worsened after chemo, alert resp even u/l, skin w/d, noted chemo port to left ant chest and pacemaker to right chest. Denies cough or fever, no n/v, just generalized weakness that happens a couple weeks after his chemo treatments 77628-9Dlazgjnty department PvriYT8783-83-91B84:37:26[facility] NoteTXT1.2.840.657524.1.13.104.2.7. 2.965658|[id number] for patient iijk70996-2KydaVUKBFMBOXY[address]vdGalvestonGalvestonTXTX[address] 1HGRXMZDIKTTJVGYIPOQPRY8703-00-98U6 1:37:261.2.840.253011.1.72.3.15|1.2 .840.439756.1.13.104.2.7.2.727879_1 [id number] [facility] 2023-04-20 10:50:42 vjRiQI8nR4PlnH7iPHzIJ2AQ41iTPgfaEh8 H7luW/LKLzgaGtqxY5QKw6SsnaDKe1028-6 04-20T10:50:42 Anabell Charles is a 82 year old male c/o weakness for 3 months, states seen 2 weeks ago for same thing, states feels drained, no chest pain, no n/v/d, no fever, states does chemo the last one being 1 month ago, due to get chemo again on the , states thinks needs fluids again, states said cancer doc said the chemo drains all his energy, alert resp even u/l, went to pcp today but they did not accept his insurance 36563-8Bgigpfgdg department Triage hajfLW8863-65-92K10:55:50[facility] Triage noteTXT1.2.840.927772.1.13.104.2.7. 2.432124|[id number] for patient yzll30391-4Szzicxoup department [id number] M. Barton RNUT[address] StreetVy[id number] 6MMCCSPZLMVSURNGESYRTXR2781-97-68Z2 0:55:501.2.840.661401.1.72.3.15|1.2 .840.225710.1.13.104.2.7.2.727879_1 [id number] Lydia Perez RN [facility] 2023-04-09 10:00:00 P1hS4vSqoesdfNNEIkDt/GaBoA8T/l2eEdy TqdDPFQzBYo2NKmtBoYWUZGM6juj73213-5 9-01T10:00:00 Images from the original note were not included.Patient has been identified by and name and was provided with cup, antiseptic towelette, and clean catch instructions. 11 urine specimen(s) sent. Unpreserved Urine Culture 1 Aptima tube Other urine Pt states only urine culture from Dr krish Ulloa 04/09/2023 9:07 AM 15760-7Legeu EdrwXR4003-79-03G79:15:00Nurse NoteTXT1.2.840.977457.1.13.104.2.7. 2.749077|[id number] for patient vosp77546-3Sxjwf NoteLNUT[address] Evm[id number] 0TKVRSTMWRMCTLLODFMWMKN8088-77-87W7 9:15:001.2.840.279397.1.72.3.15|1.2 .840.402731.1.13.104.2.7.2.727879_1 [id number] [facility] 2023-04-09 08:37:56 I9AuBrJ7SFEgO8zT7KBM0Wj+1jjw8g7JWc4 NCcvVgQ6zJBFSjjHnjhsBAHmXn82p3774-5 08:37:56 Eliezer Lobo spoke with patient 04/08/23. Patient states he did not feel well from his infusions yesterday to do urine culture but will report to the lab 04/09/23 for urine culture. 19365-2Fpcgyhgas encounter CloaGP1400-70-31M15:38:37Telephone encounter NoteTXT1.2.840.139805.1.13.104.2.7. 2.469268|[id number] for patient jscd02735-8CteiRB940869960Gpndkx A Hall RNUT[address] StreetHna[id number] 5BVARNIDMZJJKUOXXQSEDKK6569-23-36N9 8:38:371.2.840.072299.1.72.3.15|1.2 .840.477033.1.13.104.2.7.2.727879_1 [id number] Poonam Goldberg RN [facility] 2023-04-08 10:28:12 er5SPS7XbOaxlydT/r/Hvk6kPlNS5cxUyIe qPilhPeblw8vG4+aJS3ubJAOi9LJx9558-7 0:28:12 Attempted to contact patient in regards to urine culture prior to cysto 04/13/23. Voicemail left at this time with clinic phone number and instructed patient to return call. 35197-1Uqmiuszoo encounter HbgzTH9378-25-78Y10:28:52Telephone encounter NoteTXT1.2.840.715482.1.13.104.2.7. 2.603624|[id number] for patient rlxk78004-6GlnkPDKVMSOUTX[id number] 6RSECJVHLIJKFASHBHMMQKW4049-67-46M0 0:28:521.2.840.636483.1.72.3.15|1.2 .840.177235.1.13.104.2.7.2.727879_1 [id number] [facility] 2023-04-07 10:52:56 pxh0T9QxlwtQPe+9XsIq0uzY7Rz/v4jaVpQ rRu09OQ9pkJkTVPXBj/9vxnDPnAoq1560-5 04-07T10:52:56 CM called [facility] to follow up on referral and spoke with Pat. States she is unsure if referral was received, but the nurse that covers [employer] is out on medical leave, so they do not have coverage at this time. CM called [facility] and spoke with Ana. States pt has been accepted and they have tried to contact pt for scheduling. 71476-5Ngaeusmlq encounter ZzsjYM3276-85-70O08:07:57Telephone encounter NoteTXT1.2.840.165652.1.13.104.2.7. 2.509984|[id number] for patient iqif43743-6NnvaRA783880364Uaoqvgw A Gaudet RN[id number] 4GKHNIXHKYAFRVLATKMRBHR9811-22-79R1 1:07:571.2.840.607143.1.72.3.15|1.2 .840.831430.1.13.104.2.7.2.727879_1 [id number] Dima Lima RN [facility] 2023-04-06 16:44:05 TZkvf8DY6nvt6u+jHN09vCQJKuHwsF9/1uz WKewiLKhDFrcfg05xTPnGyzUuMpsH7362-6 6:44:05 Home health referral e-faxed to [facility] P: [phone] F:[phone]. 69449-5Noaojsrwx encounter XnfrNN9684-34-37I88:44:49Telephone encounter NoteTXT1.2.840.412856.1.13.104.2.7. 2.325435|[id number] for patient axza80110-1DefuLGRPYRZQLK[id number] 4KKHIMYMWWIAEMWOWZMKLBJ5465-48-98R0 6:44:491.2.840.561138.1.72.3.15|1.2 .840.285295.1.13.104.2.7.2.727879_1 [id number] [facility] 2023-04-06 16:35:36 46fYg9HodLe4cF9QaatFZsgqWgZjhk1y+u9 qhiRwK9ocZR+6VZWKGroIEfRsnLLq5746-4 6:35:36 Noreen is unable to accept pt. They are at cap with [employer], and they do not go to [facility]. 98861-3Amkputudv encounter FnznSX4967-02-50D57:36:13Telephone encounter NoteTXT1.2.840.137069.1.13.104.2.7. 2.032299|[id number] for patient tmat59528-3BxbgXXRGSZQSST[id number] 3WWQFFFZEOPTHPOOBUPYSTS0128-59-95R8 6:36:131.2.840.406081.1.72.3.15|1.2 .840.613266.1.13.104.2.7.2.727879_1 [id number] [facility] 2023-04-06 15:29:45 b0WXVXcnEg+WxRyJHHPrLOK4kP2fpeA+lBd xpFlwvES7uZ9GBtUO0K/KCkoS3mYA4780-4 5:29:45 [facility] unable to accept due to no staff where pt resides.Referral faxed to [facility]. 39855-5Uuggiuzlj encounter LkzjNS8448-29-44B24:48:43Telephone encounter NoteTXT1.2.840.778375.1.13.104.2.7. 2.796446|[id number] for patient nllq31284-7GzdaLJRSZJBYGK[id number] 1FLPFZLKBXWZKCPLVQDUVLC3005-07-24G2 5:48:431.2.840.119344.1.72.3.15|1.2 .840.520691.1.13.104.2.7.2.727879_1 [id number] [facility] 2023-04-06 14:43:03 O1LLD4X/sgtimsZDfX6GGvd+uJyUJWHmB62 yG5Iu/KWh6FK250crnXPeBfp392Iy9776-7 4:43:03 [address] [facility]. Two messages were left with the answering service, and no call was returned. CM e-faxed referral to [facility]. 63535-5Lzjrdowkd encounter OjpzRT8415-57-15G19:44:35Telephone encounter NoteTXT1.2.840.317683.1.13.104.2.7. 2.975416|[id number] for patient [id number] 1UANVUKRHGKPMCICMIZQXKC0672-74-04O2 4:44:351.2.840.386613.1.72.3.15|1.2 .840.688173.1.13.104.2.7.2.727879_1 [id number] [facility] 2023-04-06 13:17:31 vxK3xCXWWDACUA6+AVTmUjloKCR75/Rb3lB tYmlc5rI8J82VvjIbj9ycmxSoArrl1319-9 3:17:31 Spoke with patient, patient aware urine culture order placed and needs to be obtained by 04/07/23 for cysto procedure 04/13/23. 45492-9Jjmehkrzt encounter YtvyNS5295-52-13R87:18:16Telephone encounter NoteTXT1.2.840.367787.1.13.104.2.7. 2.655027|[id number] for patient [id number] 0NWKFKCVANAPEIKLOJCRJPM0851-20-37B0 3:18:161.2.840.403310.1.72.3.15|1.2 .840.719450.1.13.104.2.7.2.727879_1 [id number] [facility] 2023-04-06 11:24:35 hDrpAyKSPW4eN6A+uyipwVcXuq8RZSlv4TG GvgSwBa6nz1TveJeaJbNyCMdF91pY0871-3 04-06T11:24:[address] [facility] and reached the answering service. Message left with Fany. States she will forward the message to the branch. 48971-2Okghxpbkw encounter UuhkWL6980-99-70T06:25:51Telephone encounter NoteTXT1.2.840.439988.1.13.104.2.7. 2.955059|[id number] for patient sfam98819-7DulqHELIYCCXDP[address] GgagBulhiadfuPhtyzbulbRWXF441098743 1RXUPNESGIVJIVZIJLPYLBM7901-49-99H8 1:25:511.2.840.374595.1.72.3.15|1.2 .840.684863.1.13.104.2.7.2.727879_1 [id number] [facility] 2023-04-06 08:45:00 9hCzPEbMmR7VcSNlyL5KAP5d24wn4PLa99P gbQHkxl04dlk88H2Lo3Y6MO64Dhe14052-7 04-06T08:45:00 Images from the original note were not included.Venipuncture collection performed by clean technique on the left anticubitus. Total of 1 attempts were made. Slight pressure and a bandage/dressing were applied to the site(s). The patient experienced no complications. The following specimens were processed according to instructions and sent to [facility] per lab order on 04/06/2023: LT BLUE SST 2 RED LAV 1 PPT DK GREEN (LiHep) DK GREEN (SodH) YAÑEZ DK BLUE (K2) DK BLUE (S) ACD Blood Culture NIPT/NTD Patient has been identified by and name and was provided with cup, antiseptic towelette, and clean catch instructions. 1 urine specimen(s) sent. Unpreserved 1 Urine Culture Aptima tube Other urine 71416-4Yfles GhxhHY3366-29-17L95:56:12Nurse NoteTXT1.2.840.475065.1.13.104.2.7. 2.815205|[id number] for patient tkfv01163-1Zqsbm ZutxEB999628615Cwxqpyvnqr S [address] Omwi[id number] 1GLCWALXYVSXQICLVUPBNIR1345-13-48E4 8:56:121.2.840.195797.1.72.3.15|1.2 .840.051132.1.13.104.2.7.2.727879_1 [id number] Zeinab S [facility] 2023-04-05 16:49:17 CJu7qwKzR3jO8RNgREEaKOvYMcPVh1fgESL 6c8aQ4IVfpWR/drJqu3c+TOl7mYHi6764-0 04-05T16:49:17 [facility] to follow [facility] referral and reached the answering service. CM left a message with Katherine. States she will forward the message to the branch. 83027-3Uxdvesijt encounter CyveYR8476-66-84B03:51:25Telephone encounter NoteTXT1.2.840.083352.1.13.104.2.7. 2.475447|[id number] for patient qaoi18359-8LeebPDIJYDQQCV[address] Fafc[id number] 3YNTBIYVJOBACABLTYZHVZX2844-59-90M4 6:51:251.2.840.845782.1.72.3.15|1.2 .840.033779.1.13.104.2.7.2.727879_1 [id number] [facility] 2023-04-05 13:03:34 ct34507AFZIAThZOhVNfcWBMGCop7ejW1yZ aXlNFH227JKE5rlhHpuPKDl/luC4T4758-4 04-05T13:03:34 TRANSITIONAL CARE MANAGEMENT ASSESSMENT04/05/2023 Anabell Charles630185NRicapaulino Charles is a 82 year old /White male was admitted on 03/31/23 to [facility], ADC MED SURG. He was discharged on 04/02/23 with discharge disposition of HR- Routine Discharge.Admitting Physician: Vincent Busby Diagnosis: Not notedLinked Episodes Type: Episode: Status: Noted: Resolved: Last update: Updated by: TRANSITION OF CARE TCM Active 04/02/2023 04/05/2023 12:39 PM Dima Lima RN Comments: TCM Fll-pdsp-ga-face outreach documentation:Discharge AssessmentChart Assessed: 04/05/23TCM Outreach Completed: 04/05/23Do you have a few minutes to speak with me about how you are doing at home?: Yes (Pt states he is doing ok. Reports he is "a little weak", but is feeling better.)Discharge InstructionsDo you understand your at-home instructions?: Yes (No questions at this time.)MedicationsHave you filled your prescriptions and do you have them in your home? : No (Pt states he could not afford the co-pay, but is not sure how much the co-pay was.)Medication Interventions?: Care coordination (CM looked up prescription on [facility]. Cost at [facility] is $6.27 with [facility] card. Pt states he can afford this. CM encouraged pt to call if additional assistance is needed.)Do you know how to take your medications?: Yes (No questions.)Can you provide me with the names or descriptions of any bytn-gzp-uzwciiu or supplements you are currently taking?: Patient declinedSuppliesDid you receive applicable home medical supplies/equipment?: N/AFollow Up AppointmentHas a follow up appointment been scheduled?: YesDo you have any questions about your follow up appointments?: Yes (Reviewed appointment date, time and location with pt.)Are you able to get to your appointment? Who will be taking you?: Yes (family member)Home Health AssistanceHas the home health nurse contacted you since you've been home?: NoHHA Interventions:: Care coordination ([facility] . CM will follow up.)Survey - RecognitionIs there anything you would like to share about your recent hospitalization, or anyone you would like to recognize?: NoDo you have any suggestions for improvement?: NoDo you have any other questions or concerns at this time?: NoFuture Appointments: Future Appointments Provider Department Dept Phone 04/06/2023 8:45 AM Pob, Adc Lab Main [facility] Professional Office Building Phlebotomy Lab [phone] 04/07/2023 8:40 AM Tanesha White MD [facility] Hematology-Oncology - [place] [phone] 04/07/2023 9:00 AM [facility] INFUSION CHAIR [address] [facility] Infusion Therapy- [place] [phone] 04/07/2023 2:00 PM Pob, Adc Lab Main [facility] Professional Office Building Phlebotomy Lab [phone] 04/08/2023 8:00 AM Fide Hanson FNP [facility] Interventional Radiology, PCP [place] [phone] 04/13/2023 1:30 PM Erasmo Marcano MD [facility] Urology, [place] [phone] 04/20/2023 8:40 AM Donovan Ware MD [facility] [phone] 04/27/2023 8:45 AM Pob, Adc Lab Main [facility] Professional Office Building Phlebotomy Lab [phone] 04/28/2023 9:00 AM Tanesha White MD [facility] Hematology-Oncology [facility] [phone] 04/28/2023 10:00 AM [facility] INFUSION CHAIR [address] [facility] [phone] 06/14/2023 2:00 PM Rey Velarde DO [facility] GASTROENTEROLOGY [facility] [phone] 07/22/2023 10:30 AM [facility] [address] [facility] Cardiac Device Clinic, [place] [phone] 12/08/2023 10:00 AM Quirino Ji MD [facility] [phone] 09596-3Tsytxzewe encounter GmghPL5868-77-72Q97:05:05Telephone encounter NoteTXT1.2.840.108216.1.13.104.2.7. 2.895416|[id number] for patient eiij22768-3YidzQNXWWIIGQI[address][id number] 3XHNOWRKUWGUBSVCUTPQRLP0358-78-32H7 3:05:051.2.840.080605.1.72.3.15|1.2 .840.108096.1.13.104.2.7.2.727879_1 [id number] [facility] 2023-04-02 14:47:26 BGk7DQwsXwBvsT2GCh92j30oPekZ1s/wgI3 3z9Tjw16hnX/t2HIx0bGQ79c6ds7B0660-5 04-02T14:47:26 Problem: PainGoal: Control of pain at or below patient's documented comfort goalOutcome: Adequate for dischargeGoal: Reduction in pain sensationOutcome: Adequate for discharge Problem: Skin integrity Impaired (Risk or Actual)Goal: Prevention of new skin breakdownOutcome: Adequate for discharge Problem: Falls, Risk ofGoal: Absence of fallsOutcome: Adequate for discharge Problem: Venous Thromboembolism, (actual or risk of)Goal: Absence of venous thromboembolism (Risk)Outcome: Adequate for discharge Problem: Discharge PlanningGoal: Adequate for dischargeOutcome: Adequate for dischargeGoal: Effective communicationOutcome: Adequate for discharge 32327-8Axoe of care cblcTJ9977-15-16R45:47:33Plan of care noteTXT1.2.840.902374.1.13.104.2.7. 2.459358|[id number] for patient lmpt48805-6CvsgYR609762164Qjlhhkhy J Rivera RN[address]ByquIlrejbvghUkrzuxhzjHLPE059280357 1LJMSRCWIJQUBFDHYOHTGPQ6081-48-12E2 4:47:331.2.840.498011.1.72.3.15|1.2 .840.886148.1.13.104.2.7.2.727879_1 [id number] Alka Edwards RN [facility] 2023-04-01 23:31:38 kagQgXCoRQN41NYxHFDbzLPwGMh6LSPWD6P LVGcAI4ex5lbsY87RjlORMOARLpDi1948-8 04-01T23:31:38 Problem: PainGoal: Control of pain at or below patient's documented comfort goalOutcome: Progressing as expectedGoal: Reduction in pain sensationOutcome: Progressing as expected Problem: Skin integrity Impaired (Risk or Actual)Goal: Prevention of new skin breakdownOutcome: Progressing as expected Problem: Falls, Risk ofGoal: Absence of fallsOutcome: Progressing as expected Problem: Venous Thromboembolism, (actual or risk of)Goal: Absence of venous thromboembolism (Risk)Outcome: Progressing as expected Problem: Discharge PlanningGoal: Adequate for dischargeOutcome: Progressing as expectedGoal: Effective communicationOutcome: Progressing as expected 95769-1Wvso of care ursmMV7359-20-18F68:31:41Plan of care noteTXT1.2.840.703147.1.13.104.2.7. 2.618094|[id number] for patient zhgc93136-0XznuPS998646763Mxxcuu Fuentes RN[address] MeowFwvckfyucTdwboomxhJWQW359541701 3BLKXVJVLOHXWHYKFXJNZIO5531-60-53U2 3:31:411.2.840.505730.1.72.3.15|1.2 .840.493871.1.13.104.2.7.2.727879_1 [id number] Saima Sheriff RN [facility] 2023-04-01 18:48:01 nKJLo4bZweRf54uTxfLRuAUpUY+u2wtUIVX Zenobia+fDW9lmvNCLSoSrt/kK1P24LRsJ0707-9 04-01T18:48:01 Problem: PainGoal: Control of pain at or below patient's documented comfort goalOutcome: Progressing as expectedGoal: Reduction in pain sensationOutcome: Progressing as expected Problem: Skin integrity Impaired (Risk or Actual)Goal: Prevention of new skin breakdownOutcome: Progressing as expected Problem: Falls, Risk ofGoal: Absence of fallsOutcome: Progressing as expected Problem: Venous Thromboembolism, (actual or risk of)Goal: Absence of venous thromboembolism (Risk)Outcome: Progressing as expected Problem: Discharge PlanningGoal: Adequate for dischargeOutcome: Progressing as expectedGoal: Effective communicationOutcome: Progressing as expected 32977-6Igcf of care vpvkXE7288-44-04X05:48:09Plan of care noteTXT1.2.840.478582.1.13.104.2.7. 2.465672|[id number] for patient cxqp21541-2XmevZNKYEHFYQI[id number] 2DWZRKFYEXYSTKVLDOKISXU3452-66-34T8 8:48:091.2.840.898136.1.72.3.15|1.2 .840.270983.1.13.104.2.7.2.727879_1 [id number] [facility] 2023-03-31 22:12:57 mkvae5JS+rc/wn1TW6rXXfhXRiJ8iN1G8Jc q1fkAKeKqB8g8Dk5MwV7op+JDy+fp5588-8 03-31T22:12:57 Problem: PainGoal: Control of pain at or below patient's documented comfort goalOutcome: Progressing as expectedGoal: Reduction in pain sensationOutcome: Progressing as expected Problem: Skin integrity Impaired (Risk or Actual)Goal: Prevention of new skin breakdownOutcome: Progressing as expected Problem: Falls, Risk ofGoal: Absence of fallsOutcome: Progressing as expected Problem: Venous Thromboembolism, (actual or risk of)Goal: Absence of venous thromboembolism (Risk)Outcome: Progressing as expected Problem: Discharge PlanningGoal: Adequate for dischargeOutcome: Progressing as expectedGoal: Effective communicationOutcome: Progressing as expected 90134-6Gkvg of care wsrzQZ0238-14-03W61:13:10Plan of care noteTXT1.2.840.721728.1.13.104.2.7. 2.113381|[id number] for patient xqmn43926-5OfijKLAAUGNAYR24 [id number] 4COEYXERNNOMESKMFAGEOMJ5499-73-64N9 2:13:101.2.840.524068.1.72.3.15|1.2 .840.554003.1.13.104.2.7.2.727879_1 [id number] [facility] 2023-03-31 17:57:19 lmW40KIitfg+q7fA/Rz5/fxV1FDqUf0TAX+ HuuE2eEWO8MhYXQ0xIebdEUZsTW0C7088-7 03-31T17:57:19 Nurse Report Report given to Miguelina MCARTHUR. Chief complaint, assessment findings, infusion verify and orders reviewed. Plan of care discussed Patient/family [place] [address]-6Zgcoriqls department XtcdVG2574-02-39R76:57:39[facility] NoteTXT1.2.840.938664.1.13.104.2.7. 2.347207|[id number] for patient loga63103-5NbuvTQ815040634Kjhpg Y Khan RNUT[address] MvrxOulvoaoswQknburwhlYYHC396989074 2XCADZZZJRVHYUCOBWCOISR4089-47-19E7 7:57:391.2.840.661182.1.72.3.15|1.2 .840.259877.1.13.104.2.7.2.727879_1 [id number] Goran Martinez RN [facility] 2023-03-31 15:19:29 RlEswCMpk3C5z3dYGZhpWtm+elXQjFT60WA 1h8NR4t1s+4H9KNvE2KSdLjwBkuwR9544-3 03-31T15:19:[address] [place] [address]-0Fxszmvoqs department DtleNL0331-07-89Z93:19:37[facility] department NoteTXT1.2.840.038031.1.13.104.2.7. 2.421468|[id number] for patient njnd24472-4MvyvPLGLTFEIZX[id number] 1QXRWPTYMIGMRYHJKMUHXGL8955-02-88D6 5:19:371.2.840.457267.1.72.3.15|1.2 .840.335668.1.13.104.2.7.2.727879_1 [id number] [facility] 2023-03-31 14:22:54 E9uhyDsAZtyrag/AfPs5RUrt4L+ILb90PPP Eb4rPsssWz+H/CmFWiA/ykaLdzFCf0304-3 03-31T14:22:54 Pt to ER c/o generalized weakness and dizziness that has been going on for "what seems like forever". States that symptoms have worsened over the last month. Is currently on chemo for rectal cancer, last chemo 2 weeks ago. 19718-5Ahlfggelp department Triage yhgyOO5818-22-28Q25:24:40[facility] department Triage noteTXT1.2.840.796004.1.13.104.2.7. 2.515214|[id number] for patient fumd67667-5Lwdzfgrao department MmbqHT313276980Bxzxy N Dewoody RN[id number] 5UYLABJXVRKKUANHHBYNBRL2379-21-08X0 4:24:401.2.840.396940.1.72.3.15|1.2 .840.526166.1.13.104.2.7.2.727879_1 [id number] Alejandra Jurado RN [facility] 2023-03-31 14:13:00 WbDm9fhd1DtsKzdpFm+Da6ZO3NPuDvKrmUn TFW323rFmEH5N5PTCjvVujyDdvDA+03-31T14:13:00 [facility] Department NotePatient Name: Anabell Woodward of : 1940 82 year old maleTreatment Room: [place] [address]Medical Record Number: [id number] Care Physician: Yordan LpoezPatient Escorted by: Family [5]Mode of Arrival: Personal means [1]EMS Treatment Prior to ED Arrival: Travel and Exposure Screening:SymptomsDoes patient have any of these symptoms?: (not recorded)Exposure ScreeningHas patient had contact with someone with a communicable disease in the last month?: (not recorded)Diseases exposed to:: (not recorded)Is Patient ?: (not recorded)Exposure Date: (not recorded)Chief Complaint:Chief Complaint Patient presents with Weakness Dizziness History of Present Illness:Pt presents with months of dizzziness and weakness. Pt states dizziness has worsened over the past month. Pt has h/o rectal cancer with mets to the liver and receives monthly chemotherapy. Most recent chemotherapy was 2 weeks ago. Pt denies any fever, dyspnea. 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 Comments: 1 can dip week Alcohol Use Yes; 0.0 standard drinks of alcohol per week; 0 Standard drinks or equivalent. Comments: 1-2 beer daily Drug Use No. Sexual Activity Not sexually active. 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 HENT: Negative for voice change. Respiratory: Negative for chest tightness and shortness of breath. Skin: Negative for wound. Neurological: Positive for dizziness and weakness. Psychiatric/Behavioral: Negative for agitation. Physical Exam: ED Triage Vitals [03/31/23 1421] Weight 66.2 kg (146 lb) Actual or estimated Estimated by patient/family report Height 1.676 m (5' 6") BP 138/84 Pulse 75 Resp 22 Temp 36.8 ?C (98.2 ?F) Temp source Oral SpO2 98 % Measured on Room air Physical ExamVitals and nursing note reviewed. Constitutional: Appearance: Normal appearance. HENT: Head: Normocephalic. Mouth/Throat: Mouth: Mucous membranes are moist. Comments: No facial asymmetryEyes: Extraocular Movements: Extraocular movements intact. Cardiovascular: Rate and Rhythm: Normal rate. Pulmonary: Effort: Pulmonary effort is normal. Neurological: General: No focal deficit present. Mental Status: He is oriented to person, place, and time. Comments: Neg pronator drift, able to perform finger-nose bl Psychiatric: Mood and Affect: Mood normal. Behavior: Behavior normal. Radiology:CT HEAD WO CONTRAST Final Result EXAM: CT HEAD WO CONTRAST HISTORY: weakness, eval for metastatic disease. h/o colorectal cancer on chemotherapy . History [facility] from [facility]: "weakness and dizziness TECHNIQUE: Axial CT of the head was performed and reconstructed at 5 mm intervals. Coronal and sagittal reformatted images were generated. COMPARISON: Head CT scan dated on 09/12/2019 FINDINGS: The ventricles and cerebral sulci are normal in caliber and in configuration for the patient' age. No midline shift or pathological extra-axial fluid collection is present. The basal cisterns are unremarkable. No acute intracranial hemorrhage or significant mass effect is visualized. Scattered subcortical and periventricular hypodensities, nonspecific. The yañez-white matter differentiation is preserved. Mild left mastoid air cells effusion. Clear right mastoid air cells. Intracranial atherosclerosis. 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 The other visualized paranasal sinuses are clear. IMPRESSION 1. No acute intracranial abnormality. 2. Please note that this exam is limited for evaluating metastasis due to lack of contrast, recommend contrast-enhanced MRI. Preliminary Report Dictated by Resident: Jesus Palacios MD., have reviewed this study and agree with the above report. XR CHEST 1 VW Final Result EXAM: XR CHEST 1 VW COMPARISON: 01/14/2023, 11/23/2022. Correlation with PET CT 03/18/2023. HISTORY: eval for metastatic disease, h/o colon cancer FINDINGS: Support devices: Pacemaker generator over the right chest with right atrial and right ventricular leads. Infusion port is present in the left upper chest with subclavian approach catheter extending to the right atrium. Lungs/pleura: Lungs are mildly hypoinflated. Hazy opacity is now seen over the left costophrenic angle, not seen previously. The lungs appear otherwise clear. Heart/Mediastinum: The cardiac silhouette is normal in size. Atherosclerotic calcification is noted in the aortic arch. IMPRESSION Left lower lung opacity could represent pneumonia. Lab Results:Lab Results CBC WITH DIFF - Abnormal Result Value Ref Range WBC 7.71 4.20 - 10.70 10*3/?L RBC 4.57 4.26 - 5.52 10*6/?L HGB 15.1 12.2 - 16.4 g/dL HCT 43.4 38.4 - 49.3 % MCV 95.0 81.7 - 95.6 fL MCH 33.0 (*) 26.1 - 32.7 pg MCHC 34.8 31.2 - 35.0 g/dL RDW-SD 54.1 (*) 38.5 - 51.6 fL RDW-CV 15.8 (*) 12.1 - 15.4 % PLT 212 150 - 328 10*3/?L MPV 9.0 (*) 9.8 - 13.0 fL NRBC/100 WBC 0.0 0.0 - 10.0 /100 WBCs NRBC x10^3 <0.01 10*3/?L GRAN MAT (NEUT) % 68.6 % IMM GRAN % 0.30 % LYMPH % 19.6 % MONO % 9.9 % EOS % 1.2 % BASO % 0.4 % GRAN MAT x10^3(ANC) 5.30 1.99 - 6.95 10*3/uL IMM GRAN x10^3 <0.03 0.00 - 0.06 10*3/uL LYMPH x10^3 1.51 1.09 - 3.23 10*3/uL MONO x10^3 0.76 0.36 - 1.02 10*3/uL EOS x10^3 0.09 0.06 - 0.53 10*3/uL BASO x10^3 0.03 0.01 - 0.09 10*3/uL COMP. METABOLIC PANEL (82106) - Abnormal NA 137 135 - 145 mmol/L K 3.7 3.5 - 5.0 mmol/L CL 104 98 - 108 mmol/L CO2 TOTAL 24 23 - 31 mmol/L AGAP 9 2 - 16 BUN 32 (*) 7 - 23 mg/dL GLUCOSE 97 70 - 110 mg/dL CREATININE 1.38 (*) 0.60 - 1.25 mg/dL TOTAL BILI 0.5 0.1 - 1.1 mg/dL CALCIUM 9.1 8.6 - 10.6 mg/dL T PROTEIN 7.7 6.3 - 8.2 g/dL ALBUMIN 4.2 3.5 - 5.0 g/dL ALK PHOS 99 34 - 122 U/L ALTv 23 5 - 50 U/L AST(SGOT) 39 13 - 40 U/L eGFR 49.3 mL/min/1.73m2 N-TERMINAL PRO-BNP - Abnormal NT-proBNP 247 <=125 pg/mL TROPONIN I - Normal TROPONIN I 0.012 <=0.034 ng/mL COVID-19 (ID NOW RAPID TESTING) - Normal SARS-CoV-2 Rapid ID NOW Not Detected Not Detected RAPID INFLUENZA A/B - Normal Rapid Influenza A Negative Negative Rapid Influenza B Negative Negative BLOOD CULTURE SCREEN BLOOD CULTURE SCREEN URINALYSIS EKG:If EKG completed, see Procedure Note. Orders and Treatments:Orders Placed This Encounter Procedures CT HEAD WO CONTRAST XR CHEST 1 VW CBC WITH DIFF COMP. METABOLIC PANEL (07399) BLOOD CULTURE SCREEN BLOOD CULTURE SCREEN URINALYSIS TROPONIN I N-TERMINAL PRO-BNP COVID-19 (ID NOW TESTING) RAPID INFLUENZA A/B LAB ONLY COVID INTERPRETATION Orders Placed This Encounter Medications NaCl 0.9% (NS) bolus infusion 1,000 mL meclizine (TRAVEL-EASE (MECLIZINE)) tablet 25 mg piperacillin-tazobactam (ZOSYN) 3.375 g in NaCl 0.9% (NS) 100 mL MINI-BAG Vancomycin 750 mg in NaCl 0.9% (NS) 250 mL VIAL-or manager Provider Eval:ED Events Date/Time Event User Comments 03/31/23 142 Medical Screening Begins TRIPP SAMSON MD -- 03/31/231427 First Provider Evaluation TRIPP SAMSON MD -- No notes of EC Admission Criteria type on file.ED COURSEDiagnosis/Impression as of 03/31/23 1725 Weakness Will obtain labs, ct head, cxr. Pt to receive ivf, zflzceflo27:25 Pt informed of results. Pt has increase in creatinine of 1.38 up from 0.87 from 2 weeks ago. Pt to be started on vancomycin, zosyn for healthcare associated pneumonia. Pt to be admitted hospitalist. Procedures: ProceduresMDM:Medical Decision Ovwyhm42 yo M presents with weakness, dizzinessProblems Addressed:Weakness: Details: Cxr suggestive of LLL pneumonia. Will start on abx for HCAP. Amount and/or Complexity of Data ReviewedIndependent Historian: parentLabs: ordered. Decision-making details documented in ED Course. Details: Creatinine elevated to 1.38 from 0.87. received ivfRadiology: ordered.Discussion of management or test interpretation with external provider(s): Dr. Busby to admit ptRiskDecision regarding hospitalization.Risk Details: Pt in agreement with admission. Flowsheet Documentation: Scoring Tools: No data recorded Disposition/Condition:ED Disposition ED Disposition Admit - Inpatient Condition -- Comment -- Discharge Medications:Patient's Medications START taking these medications No medications on file CONTINUE taking these medications which have NOT CHANGED ALBUTEROL 90 MCG/ACTUATION INHALER Inhale 2 Puffs every 6 (six) hours as needed for Wheezing or Shortness of Breath. ALBUTEROL 90 MCG/ACTUATION INHALER Inhale 2 Puffs every 4 (four) hours as needed for Wheezing or Shortness of Breath. BENZONATATE 100 MG CAPSULE Take 1 capsule by mouth 3 (three) times daily as needed for Cough. BLOOD SUGAR DIAGNOSTIC STRIP E11.9. Check blood sugar BID (Accu-Check Brand) CAPECITABINE 500 MG TABLET Take 3 tablets by mouth 2 (two) times daily. Take 3 tablets in the morning and 3 tablets in the evening for 14 days. Then 7 days off . Take within 30 minutes of finishing a meal. CAPECITABINE 500 MG TABLET Take 3 tablets by mouth 2 (two) times daily. Take 3 tablets in the morning and 3 tablets in the evening for 14 days. Then 7 days off . Take within 30 minutes of finishing a meal. CAPECITABINE 500 MG TABLET Take 3 tablets by mouth 2 (two) times daily. Take 3 tablets in the morning and 3 tablets in the evening for 14 days. Then 7 days off . Take within 30 minutes of finishing a meal. CAPECITABINE 500 MG TABLET Take 3 tablets by mouth 2 (two) times daily. Take 3 tablets in the morning and 3 tablets in the evening for 14 days. Then 7 days off . Take within 30 minutes of finishing a meal. CAPECITABINE 500 MG TABLET Take 3 tablets by mouth 2 (two) times daily. Take 3 tablets in the morning and 3 tablets in the evening for 14 days. Then 7 days off . Take within 30 minutes of finishing a meal. CAPECITABINE 500 MG TABLET Take 2 tablets by mouth 2 (two) times daily. Take 2 tablets in the morning and 2 tablets in the evening for 14 days. Then 7 days off . Take within 30 minutes of finishing a meal. CAPECITABINE 500 MG TABLET Take 2 tablets in the morning and 2 tablets in the evening for 14 days. Then 7 days off . Take within 30 minutes of finishing a meal. CAPECITABINE 500 MG TABLET Take 2 tablets in the morning and 2 tablets in the evening for 14 days. Then 7 days off . Take within 30 minutes of finishing a meal. DEXAMETHASONE 4 MG TABLET Take 2 tablets by mouth daily. Take on Day 2 and Day 3 of each cycle. DICLOFENAC SODIUM (VOLTAREN) 1 % GEL Apply to area(s) 4 (four) times daily. DIPHENOXYLATE-ATROPINE 2.5-0.025 MG TABLET Take 1 tablet by mouth every 6 (six) hours as needed (Diarrhea refractory to loperamide). DRONABINOL 2.5 MG CAPSULE Take 1 capsule by mouth daily. Take 1 capsule by mouth daily. FENOFIBRATE 160 MG TABLET Take 1 tablet by mouth daily. FINASTERIDE 5 MG TABLET TAKE ONE (1) TABLET(S) BY MOUTH ONCE A DAY. FLUTICASONE PROPIONATE (FLONASE ALLERGY RELIEF) 50 MCG/ACTUATION NASAL SPRAY Use 2 Sprays in each nostril daily. FLUTICASONE PROPIONATE 50 MCG/ACTUATION NASAL SPRAY Use 2 Sprays in each nostril daily. FOOD SUPPLEMENT, LACTOSE-FREE (ENSURE HIGH PROTEIN) LIQUID Take 1 Can by mouth 3 (three) times daily with meals and at bedtime. GABAPENTIN 300 MG CAPSULE Take 2 capsules by mouth at bedtime. LANCETS 30 GAUGE MISC E11.9. Check blood sugar BID (Accu -Check Brand) LEVOFLOXACIN (LEVAQUIN) 500 MG TABLET Take 1 tablet by mouth every 24 (twenty-four) hours. LISINOPRIL 2.5 MG TABLET Take 1 tablet by mouth daily. LOPERAMIDE 2 MG CAPSULE Take 2 capsules by mouth every 4 (four) hours as needed for Diarrhea. Take 2 capsules (4 mg) after the first loose stool, then 1 capsule (2 mg) every 4 hours as needed for diarrhea. Maximum 8 capsules per day. MAGNESIUM OXIDE 40 MG/ML ORAL SUSPENSION Take 10 mL by mouth daily. MECLIZINE 25 MG TABLET Take 1 tablet by mouth 3 (three) times daily as needed for Dizziness. PIOGLITAZONE-METFORMIN 15-850 MG PER TABLET Take 0.5 tablets by mouth 2 (two) times daily with meals. PROCHLORPERAZINE 10 MG TABLET Take 1 tablet by mouth every 6 (six) hours as needed for Nausea and Vomiting (N/V). ROSUVASTATIN 40 MG TABLET Take 1 tablet by mouth at bedtime. TAMSULOSIN 0.4 MG 24 HR CAPSULE Take 1 capsule by mouth daily. START taking Modified Medications as Prescribed No medications on file STOP taking these medications No medications on file Follow-up:Electronically signed by: Tripp Samson MD03/31/231726 86427-1Glhdnyzpt Emergency department HyttBA1674-14-58U18:27:53Physician Emergency department NoteTXT1.2.840.579347.1.13.104.2.7. 2.512021|[id number] for patient fqgi59707-3Tkrruefea department NoteLNUTMB[address] Ow[id number] 6WCBIQAVPGTGICHXVOFKUIS3931-95-40H3 7:27:531.2.840.891475.1.72.3.15|1.2 .840.896275.1.13.104.2.7.2.727879_1 [id number] [facility] 2023-03-17 10:30:00 nyIK7sCxjl1dGEYxdcTOIXAPICmuHq8cQjr rhfwCAHF6rwfijYRPo0Jqc90CxenS0519-2 0:30:00 Addended by: TANESHA WHITE MD on: 03/18/2023 08:52 AM Modules accepted: Orders [id number] DhmytvgkJY6889-08-42N78:52:02Addend um DocumentTXT1.2.840.373192.1.13.104. 2.7.2.457609|[id number] for patient fyjs07319-7ZihfKPMWVAAVHW[address] Bf[id number] 6BORXGOJYKZOQYAOIUGUCUW0793-52-87D8 8:52:021.2.840.737125.1.72.3.15|1.2 .840.261140.1.13.104.2.7.2.727879_1 [id number] [facility] 2023-03-16 08:45:00 p4olfAUfqBQjm3ufJhohoFg6YxYSOeo4/G9 /F5FDMv8WzaW1vwlG3seORh1dZLN21638-0 08:45:00 Images from the original note were not included.LABS FOR ONCOLOGY AND UROLOGY TODAYVenipuncture collection performed by clean technique on the left anticubitus. Total of 1 attempts were made. Slight pressure and a bandage/dressing were applied to the site(s). The patient experienced no complications. The following specimens were processed according to instructions and sent to [facility] per lab order on today: LT BLUE SST 2 RED LAV 1 PPT DK GREEN (LiHep) DK GREEN (SodH) YAÑEZ DK BLUE (K2) DK BLUE (S) ACD Blood Culture NIPT/NTD Patient has been identified by and name and was provided with cup, antiseptic towelette, and clean catch instructions. 3 urine specimen(s) sent. Unpreserved 2 Urine Culture 1 Aptima tube Other urine 32583-6Udsym NprgRE2580-45-83P54:17:11Nurse NoteTXT1.2.840.260652.1.13.104.2.7. 2.145019|[id number] for patient qoeu16859-8Jlgtv NoteLNUT[address] Ud[id number] 5JSSBKBNBLKPFSAHOAUFHIW3746-81-76J7 9:17:111.2.840.611730.1.72.3.15|1.2 .840.364793.1.13.104.2.7.2.727879_1 [id number] [facility] 2023-03-05 13:43:02 S9IhLYg0R7UKci03pbXvof8NYevrllVMW9q YJDdPU/xzEF8ZDy9un6XVlWpal0pP3773-9 03-05T13:43:02 Informed patient my name is Saskia Chance RN, a support nurse for Dr. White . Pt identified by name and . Instructed patient I am following up on a recent telephone communication regarding concerns of upcoming appointments and continuation of oral chemo medications. Patient asked about upcoming appointments. Reviewed upcoming appointments with the patient verbally and then printed a copy of most recent AVS and placed in the mail to the patient. Patient then indicated that he has been itching for 3 weeks and he was not sure if it was his chemo medication as the doctor he saw on the 6th floor said it could be related to his chemo meds. After terminating telephone call, RN spoke with ALOK Hooker who indicated the patient could try to use cerave moisturizing cream or cetrophil cream to help with the itching and both can be obtained over the counter. This information was relayed to the patient in a voice mail message and also included the information in mail out with appointment schedule. Patient will be seen in clinic on 03/17/2023 for follow up. 60015-5Ydikhvwfk encounter EbsaBJ2911-46-16T22:04:31Telephone encounter NoteTXT1.2.840.388411.1.13.104.2.7. 2.399589|[id number] for patient [id number] R Reese RN[address]LqpaVockqrylhSyjsnakcsDCMI132161139 6TRICYWKKEBQFOSSRUHTFFQ9446-86-53K0 4:04:311.2.840.813758.1.72.3.15|1.2 .840.833751.1.13.104.2.7.2.727879_1 [id number] Saskia Chance RN [facility] 2023-03-05 13:31:10 djSlWtqGefMV9XuvMvlTbzWWd90Yp1lVeQz AM5k2tUte2P0HirEopQZ4kf2WBWME9492-5 03-05T13:31:10 Informed patient my name is Saskia Chance RN, a support nurse for Dr. White . Pt identified by name and . Instructed patient I am following up on a recent telephone communication regarding concerns of [facility] pharmacy not being able to reach him for refill of his Oral Chemo Medication. Explained to patient the importance of staying on schedule with his chemo medications. After much discussion, it was decided that the patient would call [facility] and have the medication delivered as scheduled. 99738-2Hkvbqlnas encounter VcmuRL7252-62-21S81:42:23Telephone encounter NoteTXT1.2.840.019256.1.13.104.2.7. 2.387443|[id number] for patient mvhp672319831Eqtzqdtms R Reese RN[id number] 0QPZCJOARXGVJNOCHKUVEBC2810-95-76V3 3:42:231.2.840.539481.1.72.3.15|1.2 .840.824937.1.13.104.2.7.2.727879_1 [id number] Saskia Chance RN [facility] 2023-03-05 12:11:46 gCYzQBPDPMVfr59QkS2QAMRUF6AASmp5eSj k1iFLvGBtFYDL9MqBGMvU5ajWfsjl9995-4 2:11:46 Jose Alberto,The [facility] has made several attempts to reach this patient concerning the following medication(s):XelodaThe listed prescriptions will be placed on hold till the patient reaches out to us at [phone].Thank you. 74857-9Qutdnmflo encounter ZdioQI1252-57-34H54:14:12Telephone encounter NoteTXT1.2.840.952718.1.13.104.2.7. 2.231999|[id number] for patient [id number] [id number] 5OLMSHTTHYJAPCHQGRYAUDN1542-35-36C8 2:14:121.2.840.076309.1.72.3.15|1.2 .840.983225.1.13.104.2.7.2.727879_1 [id number] John Jennings [facility] 2023-02-23 16:38:34 J4l+mU1tG8zE42gqKG/UsjcI9RNsoiPcb2p CuOdQuVjmqrZawYjHt61gUPpS4Txu1374-4 02-23T16:38:34 Patient notified of results/recommendations, understanding was verbalized via teach back. 34671-5Kspwpxydy encounter BtpwZH4960-82-19H88:39:57Telephone encounter NoteTXT1.2.840.981632.1.13.104.2.7. 2.368678|[id number] for patient fgxg966925059Zkoxwq A Hall RNUT[id number] 9TBACVTCXFWZTEHMHDPLNOK5696-77-13X0 6:39:571.2.840.823945.1.72.3.15|1.2 .840.322632.1.13.104.2.7.2.727879_1 [id number] Poonam Goldberg RN [facility] 2023-02-23 16:12:27 8mIv1KFoNfagLaUYlVsfqpKNu4seIh2x6bP qm8uHPE5o16IOWJMvYP6DrPi/2+e76564-7 02-23T16:12:27 UTI Oral abx sent Repeat Ucx 11150-4Zrlwscsuh encounter MskqOG4098-18-82X97:13:28Telephone encounter NoteTXT1.2.840.512372.1.13.104.2.7. 2.592043|[id number] for patient [id number] 5KWTDJVSYMYTMXPHJWTOUGQ8045-72-42A5 6:13:281.2.840.785327.1.72.3.15|1.2 .840.779753.1.13.104.2.7.2.727879_1 [id number] [facility] 2023-02-22 09:15:00 t+3roIgWFRW902/6jQ62bJkI9N6mjKvfJYc J+QdIyrUSzBtWBDJcS8P20GBJG0a25718-8 02-22T09:15:00 Images from the original note were not included.Venipuncture collection performed by clean technique on the left anticubitus. Total of 1 attempts were made. Slight pressure and a bandage/dressing were applied to the site(s). The patient experienced no complications. The following specimens were processed according to instructions and sent to [facility] per lab order on 02/22/2023: LT BLUE SST 2 RED LAV 1 PPT DK GREEN (LiHep) DK GREEN (SodH) YAÑEZ DK BLUE (K2) DK BLUE (S) ACD Blood Culture NIPT/NTD Patient has been identified by and name and was provided with cup, antiseptic towelette, and clean catch instructions. 2 urine specimen(s) sent. Unpreserved 1 Urine Culture 1 Aptima tube Other urine 42972-4Wzjhk ZljqZG0185-34-08X13:02:27Nurse NoteTXT1.2.840.881480.1.13.104.2.7. 2.958792|[id number] for patient dvgg26817-2Skwmr ZwejKD218892312Gbvikyygkz S LecompteUT[address] Lyons StreetNhpg[id number] 6ZMTYNKFOQKQUZFVLGSSZPB3425-75-91B8 9:02:271.2.840.600974.1.72.3.15|1.2 .840.439673.1.13.104.2.7.2.727879_1 [id number] Zeinab Nava [facility] 2023-02-22 09:15:00 Kmru51qDQlr4+3zKx33l8KujX3JwOheaCSx xbtnDCSOmS0KHY7l54JijVJcbPnnz6819-7 02-22T09:15:00 Addended by: BEATA JONES on: 03/19/2023 05:37 PM Modules accepted: Orders 63767-2Ydpqiatd YystcgroLE1385-54-18H33:37:09Addend um DocumentTXT1.2.840.828347.1.13.104. 2.7.2.555568|[id number] for patient aqou90555-5YhxxLTDQOTDYMK[address] Bjs[id number] 2ALAWWQHVHUKYISXSCZOZAO1871-60-85R7 7:37:091.2.840.310839.1.72.3.15|1.2 .840.073738.1.13.104.2.7.2.727879_1 [id number] [facility]
--- NOTE | 2023-09-23 17:07 | RAD REPORT ---
EXAM DESCRIPTION: CT - Chest Abdomen Pelvis W Cont - 09/23/2023 4:56 pm CLINICAL HISTORY: Chest and abdomen pain. ABDOMINAL DISTENTION COMPARISON: No comparisons TECHNIQUE: Approximately 100 mL nonionic IV contrast was administered to the patient. All CT scans are performed using dose optimization technique as appropriate and may include automated exposure control or mA/KV adjustment according to patient size. FINDINGS: Multiple bilateral pulmonary nodules are present compatible with metastatic disease. The l argest noted in the right upper lobe measuring 15 mm.Pacer device is noted.No pleural or pericardial effusion.No intrathoracic adenopathy.Small hiatal hernia. Several low-density liver lesions are present most compatible with metastatic disease. The spleen, pa ncreas, adrenal glands and kidneys are within normal limits. No bowel obstruction, free air, free fluid or abscess. There is a large amount of stool within the re ctosigmoid colon. Irregular bladder mass is seen, partially visualized. No worrisome osseous finding. IMPRESSION: Severe fecal retention in the rectosigmoid colon. Lung and liver metastatic disease is present.
--- NOTE | 2023-09-23 17:43 | ER ---
Nurse's Notes [facility] Name: Mike Charles Age: 83 yrs Sex: Male : 1940 Arrival Date: 09/23/2023 Time: 14:51 Bed 8 Private MD: Diagnosis: Abdominal pain, Generalized;Vomiting;Disseminated malignant neoplasm, unspecified-COLON, ON CHEMO;Constipation;Hypotension, unspecified-RESOLVED;Hypokalemia Presentation: 09/23 14:52 Chief complaint: EMS states: toned out to patient home for abdominal pain and weakness, ld1 near syncopal event. Pt has history of metastatic Cancer. Coronavirus screen: At this time, the client does not indicate any symptoms associated with coronavirus-19. Ebola Screen: No symptoms or risks identified at this time. Initial Sepsis Screen: Does the patient meet any 2 criteria? No. Patient's initial sepsis screen is negative. Does the patient have a suspected source of infection? No. Patient's initial sepsis screen is negative. Risk Assessment: Do you want to hurt yourself or someone else? Patient reports no desire to harm self or others. Onset of symptoms was September 23, 2023. 14:52 Method Of Arrival: EMS: [facility] ld1 14:52 Acuity: SOLOMON 3 ld1 15:14 Acuity: SOLOMON 2 iw Triage Assessment: 14:55 General: Appears in no apparent distress. uncomfortable, Behavior is calm, cooperative, ld1 appropriate for age. Pain: Complains of pain in abdomen Pain does not radiate. Pain currently is 10 out of 10 on a pain scale. Quality of pain is described as sharp, shooting, throbbing, Pain began 1 day ago. Is continuous. EENT: No signs and/or symptoms were reported regarding the EENT system. Neuro: Level of Consciousness is awake, alert, obeys commands, Oriented to person, place, time, situation. Cardiovascular: Capillary refill < 3 seconds Patient's skin is warm and dry. Respiratory: Airway is patent Respiratory effort is even, unlabored. GI: Abdomen is flat, non-distended. GI: Reports lower abdominal pain, upper abdominal pain. : No signs and/or symptoms were reported regarding the genitourinary system. Derm: No signs and/or symptoms reported regarding the dermatologic system. Musculoskeletal: No signs and/or symptoms reported regarding the musculoskeletal system. 14:55 GI: Reports nausea, vomiting. ld1 Historical: - Allergies: 14:55 Lipitor; ld1 14:55 Codeine; ld1 - PMHx: 14:54 Cancer; ld1 - Immunization history:: Adult Immunizations up to date. - Social history:: Smoking status: Patient denies any tobacco usage or history of. Patient/guardian denies using alcohol. Screenin:16 [facility] ED Fall Risk Assessment (Adult) History of falling in the last 3 months, ld1 including since admission No falls in past 3 months (0 pts). Abuse screen: Denies threats or abuse. Denies injuries from another. Nutritional screening: No deficits noted. Tuberculosis screening: No symptoms or risk factors identified. Assessment: 15:14 General: Appears in no apparent distress. uncomfortable, Behavior is cooperative, ld1 anxious. Pain: Complains of pain in abdomen Pain does not radiate. Pain currently is 10 out of 10 on a pain scale. Quality of pain is described as sharp, shooting, throbbing, Pain began 2-3 days ago. Is continuous. Neuro: Level of Consciousness is awake, alert, obeys commands, Oriented to person, place, time, situation, Appropriate for age. Cardiovascular: Capillary refill < 3 seconds Patient's skin is warm and dry. Rhythm is sinus rhythm. Respiratory: Airway is patent Respiratory effort is even, unlabored. GI: Abdomen is flat, non-distended, Bowel sounds present X 4 quads. Abd is soft Abdomen is tender to palpation X 4 quads. Reports lower abdominal pain, upper abdominal pain, diarrhea, nausea, vomiting. : No signs and/or symptoms were reported regarding the genitourinary system. EENT: No signs and/or symptoms were reported regarding the EENT system. Derm: No signs and/or symptoms reported regarding the dermatologic system. Musculoskeletal: No signs and/or symptoms reported regarding the musculoskeletal system. 15:15 Reassessment: Notified ERP of VS. See MAR for orders. ld1 15:17 Reassessment: Pt reports "I feel dizzy." Syncopal episode in bed. Notified ERP. ld1 15:30 Reassessment: ERP at bedside with patient and family. Pt and family requesting no life ld1 saving measures. 17:00 Reassessment: No changes from previously documented assessment. Patient states symptoms ld1 have not improved. 18:07 Reassessment: Pt c/o pain and nausea. Notified ERP. See Mar for orders. ld1 20:13 General:. vc1 Vital Signs: 14:52 BP 126 / 80; Pulse 60; Resp 18; Pulse Ox 98% on R/A; Pain 10/10; ld1 14:52 Weight 49.9 kg; Height 5 ft. 8 in. ; ld1 15:13 BP 69 / 38; Pulse 83; Resp 18; Pulse Ox 100% on R/A; ld1 15:14 BP 80 / 49; Pulse 74; Resp 18; Pulse Ox 99% on R/A; ld1 15:14 BP 77 / 48; Pulse 74; Resp 18; Pulse Ox 99% on R/A; ld1 15:48 BP 61 / 39; Pulse 95; Resp 18; Pulse Ox 98% on R/A; Pain 10/10; ld1 16:23 BP 100 / 50; Pulse 114; Resp 14 S; Pulse Ox 98% on R/A; kc6 16:35 BP 71 / 55; Pulse 103; Resp 20; Pulse Ox 94% on R/A; ld1 17:20 BP 142 / 90; Pulse 109; Resp 15; Pulse Ox 96% on R/A; ld1 18:07 BP 119 / 90; Pulse 120; Resp 16; Pulse Ox 99% on R/A; Pain 10/10; ld1 18:19 BP 58 / 73; Pulse 122; Resp 16 S; Pulse Ox 95% on R/A; kc6 20:20 BP 97 / 66; Pulse 116; Resp 18; Temp 98.2; Pulse Ox 97% on 2 lpm NC; pf1 14:52 Body Mass Index 16.73 (49.90 kg, 172.72 cm) ld1 14:52 Pain Scale: Adult ld1 15:48 Pain Scale: Adult ld1 18:07 Pain Scale: Adult ld1 ED Course: 14:51 Patient arrived in ED. ld1 14:54 Triage completed. ld1 14:56 Arm band placed on right wrist. ld1 14:58 Lencho Greenwood MD is Attending Physician. syed 15:13 No provider procedures requiring assistance completed. Maintain EMS IV. Dressing ld1 intact. Good blood return noted. Site clean \\T\\ dry. Gauge \\T\\ site: 20G LFA. 15:16 Indira Tomlinson, RN is Primary Nurse. ld1 15:16 Patient has correct armband on for positive identification. Placed in gown. Bed in low ld1 position. Call light in reach. Side rails up X2. infant babysitter on. Pulse ox on. NIBP on. Door closed. Noise minimized. Warm blanket given. 15:33 Urinalysis w/ reflexes Sent. iw 15:34 Straight cath inserted, using sterile technique, 16 Fr. Specimen obtained. Returned iw clear yellow urine. Patient tolerated well. 15:46 XRAY Chest (1 view) In Process Unspecified. EDMS 15:48 Inserted saline lock: 22 gauge in right hand, using aseptic technique. ld1 16:15 Accessed Port-a-Cath. using ,sterile technique, per hospital protocol. Clean \\T\\ dry. kc6 Dressing intact. Good blood return. Flushes easily. 16:58 CT Chest, Abdomen, Pelvis - W/Contrast In Process Unspecified. EDMS 18:27 Enrique cath inserted, using sterile technique, 16 Fr., by mn, balloon inflated. [id number] 20:09 [facility] was contacted at 1819 for transfer, give 1 hour ETA. Called [place] [id number] [facility] for updated ETA at 1923, was given 5 minute ETA. Crew still had not arrived so called [facility] for another update at 2002 and was told the truck should already be at our facility. Crew finally made contact with patient and nurse at 2007. [facility] Cath Lab Tech notified. 20:20 Provided Education on: transfer process. pf1 20:20 Patient transferred, IV remains in place. pf1 Administered Medications: 15:16 Drug: NS 0.9% IV 1000 ml IV at 1 bolus Per protocol; 1000 mL bolus Route: IV; Rate: 1 ld1 bolus; Site: left forearm; 16:16 Follow up: Response: No adverse reaction; IV Status: Completed infusion; IV Intake: kc6 1000ml 15:16 Drug: Famotidine IVP 20 mg IVP once; dilute with 10 mL 0.9% NaCl; give over 2 minutes ld1 Route: IVP; Site: left forearm; 16:16 Follow up: Response: No adverse reaction kc6 15:16 Drug: HYDROmorphone IVP 0.5 mg IVP once Route: IVP; Site: left forearm; ld1 15:30 Follow up: Response: No adverse reaction; Pain is unchanged, physician notified; RASS: kc6 Drowsy (-1) 15:16 Drug: Ondansetron IVP 4 mg IVP once; over 2 minutes Route: IVP; Site: left forearm; ld1 15:48 Follow up: Response: No adverse reaction; Nausea unchanged; Vomiting unchanged kc6 15:48 Drug: HYDROmorphone IVP 0.5 mg IVP once; VERBAL ORDER PER Route: IVP; Site: ld1 left antecubital; 15:48 Drug: NS 0.9% IV 500 ml IV at bolus once Route: IV; Rate: bolus; Site: left antecubital;ld1 16:30 Follow up: Response: No adverse reaction; IV Status: Completed infusion; IV Intake: kc6 500ml 15:48 Drug: Promethazine IVP 12.5 mg IVP once Route: IVP; Site: left antecubital; ld1 16:00 Follow up: Response: No adverse reaction; Nausea is decreased; Vomiting decreased; kc6 RASS: Alert and Calm (0) 16:08 CANCELLED (Duplicate Order): ns 0.9% 1000 ml IV at 125 ml/hr continuous syed 16:23 Drug: NS 0.9% IV 500 ml IV at bolus once Route: IV; Rate: bolus; Site: left antecubital;kc6 16:23 Drug: NS 0.9% with KCl IV 20 mEq/L 1000 ml IV at 125 ml/hr continuous Route: IV; Rate: kc6 125 ml/hr; Site: left antecubital; 20:20 Follow up: IV Status: Infusion continued upon transfer pf1 18:06 Drug: Piperacillin-Tazobactam IVPB 3.375 grams IVPB once over 60 mins; (mix in NS 100 ld1 mL) Route: IVPB; Infused Over: 60 mins; Site: left antecubital; 19:00 Follow up: Response: No adverse reaction; Marked relief of symptoms; IV Status: pf1 Completed infusion 18:06 Drug: NS 0.9% IV 500 ml IV at bolus once Route: IV; Rate: bolus; Site: left antecubital;ld1 19:00 Follow up: Response: No adverse reaction; Marked relief of symptoms; IV Status: pf1 Completed infusion; IV Intake: 500ml 18:06 Drug: HYDROmorphone IVP 0.5 mg IVP once; Verbal order per Dr. Greenwood Route: IVP; ld1 Site: right hand; 19:00 Follow up: Response: No adverse reaction; Marked relief of symptoms; Pain is decreased; pf1 RASS: Alert and Calm (0) 18:07 Drug: Promethazine IVP 12.5 mg IVP once Route: IVP; Site: right hand; ld1 19:00 Follow up: Response: No adverse reaction; Marked relief of symptoms pf1 18:21 Drug: Viscous Lidocaine Mucous Membrane Liquid (4 %) 5 ml Mucous Membrane once; to ld1 bedside Route: Mucous Membrane; 18:21 Drug: NS 0.9% IV 1000 ml IV at 1 bolus Per protocol; 1000 mL bolus Route: IV; Rate: 1 ld1 bolus; Site: left antecubital; 20:32 Follow up: IV Status: Infusion continued upon transfer pf1 Medication: 15:16 VIS not applicable for this client. ld1 Intake: 16:16 IV: 1000ml; Total: 1000ml. kc6 16:30 IV: 500ml; Total: 1500ml. kc6 19:00 IV: 500ml; Total: 2000ml. pf1 Outcome: 17:43 ER care complete, transfer ordered by MD. lynch 20:27 Transferred by ground EMS [facility]. to [facility], pf1 Transfer form completed. X-rays sent w/ patient. Note: Patient report given to [facility] 20:27 Condition: stable 20:27 Instructed on the need for transfer, Demonstrated understanding of instructions, 20:33 Patient left the ED. pf1 Signatures: Dispatcher [employer] Lencho Wells MD MD cha Williams, Irene, RN RN iw Sims, Lauren, RN RN ld1 Kathi Richards RN RN vc1 Campbell, Kaitlyn, RN RN kc6 Finley, Pamala, RN RN pf1 Eloise Fleming Jordan [email or web address] Corrections: (The following items were deleted from the chart) 14:55 14:55 Allergies: No Known Allergies; ld1 ld1
--- NOTE | 2023-09-23 17:44 | EDPHYS ---
Physician Documentation [facility] Name: Mike Charles Age: 83 yrs Sex: Male : 1940 Arrival Date: 09/23/2023 Time: 14:51 Bed 8 Private MD: ED Physician Lencho Greenwood HPI: 09/23 16:26 This 83 yrs old Male presents to ER via EMS with complaints of Abdominal Pain, syed Cancer. 16:26 The patient presents with abdominal pain in the upper abdomen, in the lower abdomen, syed abdominal distention in the upper abdomen, in the lower abdomen. Onset: The symptoms/episode began/occurred 3 day(s) ago. The patient presents to the emergency department with nausea, vomiting, that is intermittent, abdominal pain, of the right upper quadrant, left upper quadrant, right lower quadrant and left lower quadrant. Historical: - Allergies: 14:55 Lipitor; ld1 14:55 Codeine; ld1 - PMHx: 14:54 Cancer; ld1 - Immunization history:: Adult Immunizations up to date. - Social history:: Smoking status: Patient denies any tobacco usage or history of. Patient/guardian denies using alcohol. ROS: 16:28 Eyes: Negative for injury, pain, redness, and discharge, ENT: Negative for injury, syed pain, and discharge, Neck: Negative for injury, pain, and swelling, Respiratory: Negative for shortness of breath, cough, wheezing, and pleuritic chest pain, Back: Negative for injury and pain, : Negative for injury, bleeding, discharge, and swelling, MS/Extremity: Negative for injury and deformity, Skin: Negative for injury, rash, and discoloration, Neuro: Negative for headache, weakness, numbness, tingling, and seizure, Psych: Negative for depression, anxiety, suicide ideation, homicidal ideation, and hallucinations, Allergy/Immunology: Negative for hives, rash, and allergies, Endocrine: Negative for neck swelling, polydipsia, polyuria, polyphagia, and marked weight changes, Hematologic/Lymphatic: Negative for swollen nodes, abnormal bleeding, and unusual bruising, 16:28 Constitutional: Positive for malaise, weight loss, 16:28 Cardiovascular: Positive for palpitations, 16:28 Abdomen/GI: Positive for abdominal pain, nausea and vomiting, nausea, vomiting, abdominal cramps, abdominal distension, 16:28 MS/extremity: 16:28 MS/extremity: Negative for acute changes, Exam: 16:28 Constitutional: This is a well developed, well nourished patient who is awake, alert, syed and in no acute distress. Head/Face: Normocephalic, atraumatic. Eyes: Pupils equal round and reactive to light, extra-ocular motions intact. Lids and lashes normal. Conjunctiva and sclera are non-icteric and not injected. Cornea within normal limits. Periorbital areas with no swelling, redness, or edema. ENT: Nares patent. No nasal discharge, no septal abnormalities noted. Tympanic membranes are normal and external auditory canals are clear. Oropharynx with no redness, swelling, or masses, exudates, or evidence of obstruction, uvula midline. Mucous membranes moist. Neck: Trachea midline, no thyromegaly or masses palpated, and no cervical lymphadenopathy. Supple, full range of motion without nuchal rigidity, or vertebral point tenderness. No Meningismus. Chest/axilla: Normal chest wall appearance and motion. Nontender with no deformity. No lesions are appreciated. Respiratory: Lungs have equal breath sounds bilaterally, clear to auscultation and percussion. No rales, rhonchi or wheezes noted. No increased work of breathing, no retractions or nasal flaring. Back: No spinal tenderness. No costovertebral tenderness. Full range of motion. Male : Normal genitalia with no discharge or lesions. Skin: Warm, dry with normal turgor. Normal color with no rashes, no lesions, and no evidence of cellulitis. MS/ Extremity: Pulses equal, no cyanosis. Neurovascular intact. Full, normal range of motion. Neuro: Awake and alert, GCS 15, oriented to person, place, time, and situation. Cranial nerves II-XII grossly intact. Motor strength 5/5 in all extremities. Sensory grossly intact. Cerebellar exam normal. Normal gait. Psych: Awake, alert, with orientation to person, place and time. Behavior, mood, and affect are within normal limits. 16:28 Cardiovascular: Rate: tachycardic, actual rate is 114 bpm, Rhythm: regular, Pulses: Pulses are 3+ in bilateral radial, brachial, femoral, popliteal, posterior tibial and and dorsalis pedis arteries.. Heart sounds: normal, normal S1and S2, no S3 or S4, no murmur, no rub, no gallop, Edema: is not appreciated, JVD: is not appreciated, 16:28 ECG was reviewed by the Attending Physician. Vital Signs: 14:52 BP 126 / 80; Pulse 60; Resp 18; Pulse Ox 98% on R/A; Pain 10/10; ld1 14:52 Weight 49.9 kg; Height 5 ft. 8 in. ; ld1 15:13 BP 69 / 38; Pulse 83; Resp 18; Pulse Ox 100% on R/A; ld1 15:14 BP 80 / 49; Pulse 74; Resp 18; Pulse Ox 99% on R/A; ld1 15:14 BP 77 / 48; Pulse 74; Resp 18; Pulse Ox 99% on R/A; ld1 15:48 BP 61 / 39; Pulse 95; Resp 18; Pulse Ox 98% on R/A; Pain 10/10; ld1 16:23 BP 100 / 50; Pulse 114; Resp 14 S; Pulse Ox 98% on R/A; kc6 16:35 BP 71 / 55; Pulse 103; Resp 20; Pulse Ox 94% on R/A; ld1 17:20 BP 142 / 90; Pulse 109; Resp 15; Pulse Ox 96% on R/A; ld1 18:07 BP 119 / 90; Pulse 120; Resp 16; Pulse Ox 99% on R/A; Pain 10/10; ld1 18:19 BP 58 / 73; Pulse 122; Resp 16 S; Pulse Ox 95% on R/A; kc6 20:20 BP 97 / 66; Pulse 116; Resp 18; Temp 98.2; Pulse Ox 97% on 2 lpm NC; pf1 14:52 Body Mass Index 16.73 (49.90 kg, 172.72 cm) ld1 14:52 Pain Scale: Adult ld1 15:48 Pain Scale: Adult ld1 18:07 Pain Scale: Adult ld1 MDM: 14:58 Patient medically screened. syed 16:31 Differential Diagnosis altered mental status, sepsis, flu. Differential diagnosis: syed Nonspecific abd pain, gastritis, viral gastroenteritis, gastroenteritis, bowel obstruction, diverticulitis, gastritis, Mesenteric ischemia or infarction, non-specific abd pain, pancreatitis, Peptic Ulcer Disease, Peritonitis, Pyelonephritis, Ureterolithiasis, urinary tract infection. Data reviewed: vital signs, nurses notes, EMS record, lab test result(s), EKG, radiologic studies, plain films. Consideration of Admission/Observation Escalation of care including admission/observation considered. I considered the following discharge prescriptions or medication management in the emergency department Medications were administered in the Emergency Department. See MAR. Independent interpretation of the following test(s) in the Emergency Department EKG: See my EKG interpretation above. Test considered but Not performed: Ultrasound NO ABD USG. Historians other than the Patient: Family Member: CANCER, METASTATIC. Care significantly affected by the following chronic conditions: Cancer. 09/23 15:00 Order name: Basic Metabolic Panel; Complete Time: 16:07 [facility] 09/23 15:00 Order name: CBC with Diff 09/23 15:00 Order name: LFT's; Complete Time: 16:07 09/23 15:00 Order name: Magnesium; Complete Time: 16:07 09/23 15:00 Order name: NT PRO-BNP; Complete Time: 16:07 09/23 15:00 Order name: PT-INR; Complete Time: 16:07 09/23 15:00 Order name: Troponin HS; Complete Time: 16:07 09/23 15:00 Order name: Lipase; Complete Time: 16:07 09/23 15:00 Order name: Urinalysis w/ reflexes; Complete Time: 16:07 09/23 16:07 Order name: Urine Culture EDNV 09/23 15:00 Order name: XRAY Chest (1 view); Complete Time: 16:07 09/23 16:25 Order name: CT Chest, Abdomen, Pelvis - W/Contrast; Complete Time: 17:34 09/23 15:00 Order name: EKG; Complete Time: 15:00 09/23 15:00 Order name: Cardiac monitoring; Complete Time: 15:16 09/23 15:00 Order name: EKG - Nurse/Tech; Complete Time: 15:17 09/23 15:00 Order name: IV Saline Lock; Complete Time: 15:09/23 15:00 Order name: Labs collected and sent; Complete Time: 15:09/23 15:00 Order name: O2 Per Protocol; Complete Time: 15:02 09/23 15:00 Order name: O2 Sat Monitoring; Complete Time: 15:09/23 18:17 Order name: Klaus; Complete Time: 18:21 syed EC:28 Rate is 77 beats/min. Rhythm is regular. QRS [place] is Normal. CO interval is normal. QRS syed interval is normal. QT interval is normal. No Q waves. T waves are Normal. No ST changes noted. Clinical impression: NSR w/ Non-specific ST/T Changes, Abnormal EKG without significant change, and No evidence of ischemia. Interpreted by me. Reviewed by me. Administered Medications: 15:16 Drug: NS 0.9% IV 1000 ml IV at 1 bolus Per protocol; 1000 mL bolus Route: IV; Rate: 1 ld1 bolus; Site: left forearm; 16:16 Follow up: Response: No adverse reaction; IV Status: Completed infusion; IV Intake: kc6 1000ml 15:16 Drug: Famotidine IVP 20 mg IVP once; dilute with 10 mL 0.9% NaCl; give over 2 minutes ld1 Route: IVP; Site: left forearm; 16:16 Follow up: Response: No adverse reaction kc6 15:16 Drug: HYDROmorphone IVP 0.5 mg IVP once Route: IVP; Site: left forearm; ld1 15:30 Follow up: Response: No adverse reaction; Pain is unchanged, physician notified; RASS: kc6 Drowsy (-1) 15:16 Drug: Ondansetron IVP 4 mg IVP once; over 2 minutes Route: IVP; Site: left forearm; ld1 15:48 Follow up: Response: No adverse reaction; Nausea unchanged; Vomiting unchanged 6 15:48 Drug: HYDROmorphone IVP 0.5 mg IVP once; VERBAL ORDER PER Route: IVP; Site: ld1 left antecubital; 15:48 Drug: NS 0.9% IV 500 ml IV at bolus once Route: IV; Rate: bolus; Site: left antecubital;ld1 16:30 Follow up: Response: No adverse reaction; IV Status: Completed infusion; IV Intake: kc6 500ml 15:48 Drug: Promethazine IVP 12.5 mg IVP once Route: IVP; Site: left antecubital; ld1 16:00 Follow up: Response: No adverse reaction; Nausea is decreased; Vomiting decreased; kc6 RASS: Alert and Calm (0) 16:08 CANCELLED (Duplicate Order): ns 0.9% 1000 ml IV at 125 ml/hr continuous syed 16:23 Drug: NS 0.9% IV 500 ml IV at bolus once Route: IV; Rate: bolus; Site: left antecubital;kc6 16:23 Drug: NS 0.9% with KCl IV 20 mEq/L 1000 ml IV at 125 ml/hr continuous Route: IV; Rate: kc6 125 ml/hr; Site: left antecubital; 20:20 Follow up: IV Status: Infusion continued upon transfer pf1 18:06 Drug: Piperacillin-Tazobactam IVPB 3.375 grams IVPB once over 60 mins; (mix in NS 100 ld1 mL) Route: IVPB; Infused Over: 60 mins; Site: left antecubital; 19:00 Follow up: Response: No adverse reaction; Marked relief of symptoms; IV Status: pf1 Completed infusion 18:06 Drug: NS 0.9% IV 500 ml IV at bolus once Route: IV; Rate: bolus; Site: left antecubital;ld1 19:00 Follow up: Response: No adverse reaction; Marked relief of symptoms; IV Status: pf1 Completed infusion; IV Intake: 500ml 18:06 Drug: HYDROmorphone IVP 0.5 mg IVP once; Verbal order per Dr. Greenwood Route: IVP; ld1 Site: right hand; 19:00 Follow up: Response: No adverse reaction; Marked relief of symptoms; Pain is decreased; pf1 RASS: Alert and Calm (0) 18:07 Drug: Promethazine IVP 12.5 mg IVP once Route: IVP; Site: right hand; ld1 19:00 Follow up: Response: No adverse reaction; Marked relief of symptoms pf1 18:21 Drug: Viscous Lidocaine Mucous Membrane Liquid (4 %) 5 ml Mucous Membrane once; to ld1 bedside Route: Mucous Membrane; 18:21 Drug: NS 0.9% IV 1000 ml IV at 1 bolus Per protocol; 1000 mL bolus Route: IV; Rate: 1 ld1 bolus; Site: left antecubital; 20:32 Follow up: IV Status: Infusion continued upon transfer pf1 Disposition Summary: 09/23/23 17:43 Transfer Ordered Notes: Transfer Location: [facility]-System syed Reason: Higher level of care syed Condition: Fair syed Problem: new syed Symptoms: have improved syed Accepting Physician: TO [facility](09/23/23 17:46) syed Accepting Physician: TO [facility](09/23/23 20:33) pf1 Diagnosis - Abdominal pain, Generalized syed - Vomiting syed - Disseminated malignant neoplasm, unspecified - COLON, ON CHEMO syed - Constipation syed - Hypotension, unspecified - RESOLVED syed - Hypokalemia syed Forms: - Medication Reconciliation Form syed - SBAR form syed Signatures: Dispatcher [employer] EDLencho Mariano MD MD cha Sims, Lauren RN RN ld1 Joselin Enciso RN RN kc6 Rosalinda Mckeon RN RN pf1 Corrections: (The following items were deleted from the chart) 14:55 14:55 Allergies: No Known Allergies; ld1 ld1 16:08 16:07 NS 0.9% IV 1000 ml IV at 125 ml/hr continuous ordered. syed syed 17:46 17:43 TO [facility] syed syed
[2023-09-23 20:36] LABS: Blood Morphology Comment NOT SEEN (NOT SEEN); Platelet Estimate ADEQ; White Blood Cell Scan OK (OK)
[2023-09-23 21:21] VITALS: BP 97/66; TEMP 98.2; O2SAT 97
--- NOTE | 2023-09-27 11:07 | EKG ---
Test Date: 2023-09-23 Test Time: 15:19:41 Resolution Analyst: MELINA MEASUREMENT RESULTS: Intervals: Rate: 77 OR: 130 QRSD: 164 QT: 490 QTc: 554 [place]: P: OR: 130 QRS: -73 T: 31 INTERPRETIVE STATEMENTS: Normal sinus rhythm Right bundle branch block Left anterior fascicular block Bifascicular block Abnormal ECG No previous ECG available for comparison Electronically Signed On 09-27-23 11:00:39 AWARD MACHINE OPERATOR by Joshua Gauthier
== END ==
LOC: ER 14:51
DX: R10.84 Generalized abdominal pain (principal); R11.10 Vomiting, unspecified; C18.9 Malignant neoplasm of colon, unspecified; K59.00 Constipation, unspecified; E87.6 Hypokalemia; Z88.5 Allergy status to narcotic agent; Z88.8 Allergy status to other drugs, medicaments and biological substances
CPT/HCPCS: 85025; 81001; 87086; 80048; 36415; 83735; 85610; 80076; 84484; 83690; 83880; 71260; 74177; 71045; 51702 ×2; 99285; Q9967; J2550 ×2; J2543; J1170 ×3; J2405; J7040 ×2; J7030 ×2; J3480; 87088; 93005